=== PATIENT | female | born 1990 | race Caucasian/White ===

== ENCOUNTER 2018-03-26 00:22 | Observation (INO) | payer SELFPAY ==
[~2018-03-26] VITALS: Ht 172.7 cm; Wt 103.6 kg
[2018-03-26] VITALS (23 sets, daily range): BP systolic 85–115; BP diastolic 51–91
[~2018-03-26 00:22] MED LIST: CEPH500C; CLIN300C3 PO; DOXY100C2 PO; NAPR-243 PO; NITR-65 PO; PREN1TAB39; PRM25T PO; iron
[2018-03-26] MEDS ORDERED: NS IV 1000 ML 1,000 ML IV SCH (00:38)
--- NOTE | 2018-03-26 00:43 | ED Psychosocial ---
General Chief Complaint: Psych/Social Disorder Stated Complaint: SUICIDAL Source: patient Exam Limitations: no limitations History of Present Illness Date Seen by Provider: Mar 26, 2018 Time Seen by Provider: 00:32 Initial Comments Patient presents to the ER by private conveyance with a chief complaint that she feels like she is burning up all over. She says she is trying to kill herself tonight because of some bad things going on in her life. She used a whole bottle of BuSpar 10 mg approximate 60 tablets and 10 tablets of Trileptal 300 mg. She consumes about 30 minutes prior to arrival around midnight. She has tried to kill herself before by taking her home opiates and other antianxiety medicines. She has a history of bipolar disorder. She says she is only on the Trileptal but she had the BuSpar left over from before. She hasn't been in inpatient psychiatric hospital and laundered several times as well as at [facility] , via [facility] most recently about 4 months ago. She has used meth in the past before going to [facility] via [facility] but she says when she was there they told her urine drug screen was positive for GHB, cocaine, methamphetamines, cannabis. She says she routinely uses cannabis. She does not drink alcohol but she smokes about a pack of cigarettes per day. She is not homicidal. She is not hallucinating or having any pain. She does have some nausea. She has not vomited. Allergies and Home Medications Allergies Coded Allergies: Divalproex Sodium (Verified Allergy, Unknown, 07/06/08) Penicillin G (Verified Allergy, Unknown, 07/06/08) Patient Home Medication List Home Medication List Reviewed: Yes Constitutional: No chills, No diaphoresis EENTM: No ear discharge, No ear pain Respiratory: No cough, No short of breath Cardiovascular: No chest pain, No Hx of Intervention, No palpitations Gastrointestinal: No abdominal pain, No constipation, No diarrhea; nausea; No vomiting Genitourinary: No discharge, No dysuria : No Control/STD Prophylaxis: None Musculoskeletal: No back pain, No joint pain Past Apunsnu-Iyobws-Dnoxem Hx Patient Social History Alcohol Use: Denies Use Recreational Drug Use: Yes Drug of Choice: THC Smoking Status: Current Everyday Smoker Type Used: Cigarettes Recent Foreign Travel: No Contact w/Someone Who Travel: No Recent Hopitalizations: No Past Medical History Surgeries: Yes Gallbladder Respiratory: Yes Cardiac: Yes Heart Murmur Neurological: No Sexually Transmitted Disease: Yes (HPV) Genitourinary: No Gastrointestinal: No Musculoskeletal: No Endocrine: No Cancer: No Psychosocial: Yes Anxiety, Suicide Attempts Integumentary: No Blood Disorders: No Physical Exam Vital Signs Vital Signs - First Documented 03/26/18 00:36 Temp 97.8 Pulse 72 Resp 18 B/P (MAP) 130/89 (103) Pulse Ox 99 Capillary Refill : General Appearance: WD/WN, no apparent distress HEENT: PERRL/EOMI, normal ENT inspection, TMs normal, pharynx normal Neck: non-tender, full range of motion, supple, normal inspection Respiratory: chest non-tender, lungs clear, normal breath sounds, no respiratory distress, no accessory muscle use Cardiovascular: normal peripheral pulses, regular rate, rhythm Peripheral Pulses: 2+ Radial Pulses (R), 2+ Radial Pulses (L) Gastrointestinal: normal bowel sounds, non tender, soft Extremities: normal range of motion, normal inspection, normal capillary refill Neurologic/Psychiatric: alert, normal mood/affect, oriented x 3 Appearance/Memory: appropriate appearance, no memory impairment Behavior/Eye Contact: cooperative, normal speech, avoids eye contact; No threatening eye contact, No decreased rate of speech, No increased rate of speech, No belligerent, No uncooperative Thoughts/Hallucinations: normal thought pattern, no apparent hallucination Skin: normal color, warm/dry Progress/Results/Core Measures Results/Orders Lab Results Laboratory Tests Test 03/26/18 00:50 03/26/18 01:20 Range/Units White Blood Count 9.1 4.3-11.0 10^3/uL Red Blood Count 4.56 4.35-5.85 10^6/uL Hemoglobin 14.4 11.5-16.0 G/DL Hematocrit 40 35-52 % Mean Corpuscular Volume 88 80-99 FL Mean Corpuscular Hemoglobin 32 25-34 PG Mean Corpuscular Hemoglobin Concent 36 32-36 G/DL Red Cell Distribution Width 14.4 10.0-14.5 % Platelet Count 279 130-400 10^3/uL Mean Platelet Volume 10.0 7.4-10.4 FL Neutrophils (%) (Auto) 58 42-75 % Lymphocytes (%) (Auto) 27 12-44 % Monocytes (%) (Auto) 7 0-12 % Eosinophils (%) (Auto) 8 0-10 % Basophils (%) (Auto) 1 0-10 % Neutrophils # (Auto) 5.3 1.8-7.8 X 10^3 Lymphocytes # (Auto) 2.4 1.0-4.0 X 10^3 Monocytes # (Auto) 0.7 0.0-1.0 X 10^3 Eosinophils # (Auto) 0.7 H 0.0-0.3 10^3/uL Basophils # (Auto) 0.1 0.0-0.1 10^3/uL Sodium Level 139 135-145 MMOL/L Potassium Level 3.9 3.6-5.0 MMOL/L Chloride Level 108 H 98-107 MMOL/L Carbon Dioxide Level 17 L 21-32 MMOL/L Anion Gap 14 5-14 MMOL/L Blood Urea Nitrogen 10 7-18 MG/DL Creatinine 0.72 0.60-1.30 MG/DL Estimat Glomerular Filtration Rate > 60 BUN/Creatinine Ratio 14 Glucose Level 68 L 70-105 MG/DL Calcium Level 9.3 8.5-10.1 MG/DL Total Bilirubin 0.3 0.1-1.0 MG/DL Aspartate Amino Transf (AST/SGOT) 14 5-34 U/L Alanine Aminotransferase (ALT/SGPT) 12 0-55 U/L Alkaline Phosphatase 74 40-136 U/L Total Protein 7.2 6.4-8.2 GM/DL Albumin 4.3 3.2-4.5 GM/DL TSH Mcmullen Testing 1.91 0.35-4.94 UIU/ML Salicylates Level < 5.0 L 5.0-20.0 MG/DL Acetaminophen Level < 10 L 10-30 UG/ML Serum Alcohol < 10 <10 MG/DL Urine Color YELLOW Urine Clarity SLIGHTLY CLOUDY Urine pH 6 5-9 Urine Specific Hedrick 1.010 L 1.016-1.022 Urine Protein NEGATIVE NEGATIVE Urine Glucose (UA) NEGATIVE NEGATIVE Urine Ketones NEGATIVE NEGATIVE Urine Nitrite NEGATIVE NEGATIVE Urine Bilirubin NEGATIVE NEGATIVE Urine Urobilinogen NORMAL NORMAL MG/DL Urine Leukocyte Esterase 3+ H NEGATIVE Urine RBC (Auto) NEGATIVE NEGATIVE Urine RBC NONE /HPF Urine WBC 10-25 H /HPF Urine Squamous Epithelial Cells 10-25 H /HPF Urine Crystals NONE /LPF Urine Bacteria TRACE /HPF Urine Casts NONE /LPF Urine Mucus NEGATIVE /LPF Urine Trichomonas FEW H /HPF Urine Culture Indicated YES Urine Test NEGATIVE NEGATIVE Urine Opiates Screen NEGATIVE NEGATIVE Urine Oxycodone Screen NEGATIVE NEGATIVE Urine Methadone Screen NEGATIVE NEGATIVE Urine Propoxyphene Screen NEGATIVE NEGATIVE Urine Barbiturates Screen NEGATIVE NEGATIVE Ur Tricyclic Antidepressants Screen NEGATIVE NEGATIVE Urine Phencyclidine Screen NEGATIVE NEGATIVE Urine Amphetamines Screen NEGATIVE NEGATIVE Urine Methamphetamines Screen NEGATIVE NEGATIVE Urine Benzodiazepines Screen NEGATIVE NEGATIVE Urine Cocaine Screen NEGATIVE NEGATIVE Urine Cannabinoids Screen NEGATIVE NEGATIVE My Orders Orders - WYATT VALDEZ Ua Culture If Indicated (03/26/18 00:38) Cbc With Automated Diff (03/26/18 00:38) Comprehensive Metabolic Panel (03/26/18 00:38) Alcohol (03/26/18 00:38) Drug Screen Stat (Urine) (03/26/18 00:38) Acetaminophen (03/26/18 00:38) Salicylate (03/26/18 00:38) Ekg Tracing (03/26/18 00:38) Hcg,Qualitative Urine (03/26/18 00:38) Saline Lock/Iv-Start (03/26/18 00:38) Thyroid Analyzer (03/26/18 00:38) Monitor-Rhythm Ecg Trace Only (03/26/18 00:38) Saline Lock/Iv-Start (03/26/18 00:38) Ns Iv 1000 Ml (Sodium Chloride 0.9%) (03/26/18 00:38) Ondansetron Injection (Zofran Injectio (03/26/18 00:45) Ondansetron Injection (Zofran Injectio (03/26/18 01:30) Urine Culture (03/26/18 01:20) Medications Given in ED Current Medications Medications Dose Ordered Sig/Sandrita Route Start Time Stop Time Status Last Admin Dose Admin Ondansetron HCl 4 mg ONCE ONCE IVP 03/26/18 00:45 03/26/18 00:46 DC 03/26/18 00:53 4 MG Vital Signs/I&O 03/26/18 00:36 Temp 97.8 Pulse 72 Resp 18 B/P (MAP) 130/89 (103) Pulse Ox 99 Progress Progress Note #1: Time: 00:50 Progress Note Poison control recommends observation for 6 hours and symptomatic support. Give her a liter of IV fluids obtain some baseline labs to include an hCG, urine drug screen and will make her an observation patient in the hospital and consult social services designee to help find placement inpatient psychiatric hospital. She still alert and oriented 4. Would expect her to be somnolent anytime starting now within the first 30 minutes. Poison control warnings that we could use benzos if she has a seizure but large, (non-toxic) dose of oxcarbazepine would intuitively make seizures unlikely at this time. She follows up on her health clinic in [facility]. Historically she has been known to Dr. Virk for primary care. Progress Note #2: Time: 01:31 Progress Note The patient is sleeping softly easily aroused by verbal stimuli. Her blood pressures around 100 systolic which is probably physiologic given her age and not likely related to her ingestion however we'll give her a bag of normal saline. Progress Note #3: Time: 01:44 Progress Note Metronidazole 2 g for Trichomonas in the AM. Initial ECG Impression Date: Mar 26, 2018 Initial ECG Impression Time: 00:44 Initial ECG Rate: 57 Initial ECG Rhythm: Normal Sinus Initial ECG Intervals: Normal Initial ECG Impression: Normal Initial ECG Comparisson: No Previous ECG Available Departure Communication (Admissions) Time/Spoke to Admitting Phy: 01:44 Dr Raza: Discussed Obs for 6 hours. Consult social services designee for placement. Impression Primary Impression: Suicide attempt Additional Impressions: Overdose of anticonvulsant Qualified Codes: T42.72XA - Poisoning by unspecified antiepileptic and sedative-hypnotic drugs, intentional self-harm, initial encounter Overdose of antidepressant Qualified Codes: T43.202A - Poisoning by unspecified antidepressants, intentional self-harm, initial encounter Trichomonas vaginalis (TV) infection Disposition: ADMITTED INPATIENT Condition: Stable Admissions Decision to Admit Reason: Admit from ER (General) Decision to Admit/Date: Mar 26, 2018 Time/Decision to Admit Time: 00:58 Departure-Patient Inst. Referrals: NO,LOCAL PHYSICIAN (PCP/Family) Primary Care Physician WYATT VALDEZ Mar 26, 2018 00:43
[2018-03-26] MEDS ORDERED: ONDANSETRON 4 MG/2 ML (SDV) Z0FRAN IVP ONE ×2 (00:45→01:30)
[2018-03-26 01:00] LABS: BASOPHILS # (AUTO) 0.1 10^3/uL (0.0-0.1); BASOPHILS % (AUTO) 1 % (0-10); EOSINOPHILS # (AUTO) 0.7 10^3/uL (0.0-0.3); EOSINOPHILS % (AUTO) 8 % (0-10); HEMATOCRIT 40 % (35-52); HEMOGLOBIN 14.4 G/DL (11.5-16.0); LYMPHOCYTES # (AUTO) 2.4 X 10^3 (1.0-4.0); LYMPHOCYTES % (AUTO) 27 % (12-44); MEAN CORPUSCULAR HEMOGLOBIN 32 PG (25-34); MEAN CORPUSCULAR HGB CONC 36 G/DL (32-36); MEAN CORPUSCULAR VOLUME 88 FL (80-99); MONOCYTES # (AUTO) 0.7 X 10^3 (0.0-1.0); MONOCYTES % (AUTO) 7 % (0-12); NEUTROPHILS # (AUTO) 5.3 X 10^3 (1.8-7.8); NEUTROPHILS % (AUTO) 58 % (42-75); PLATELET COUNT 279 10^3/uL (130-400); RED BLOOD COUNT 4.56 10^6/uL (4.35-5.85); RED CELL DISTRIBUTION WIDTH 14.4 % (10.0-14.5); WHITE BLOOD COUNT 9.1 10^3/uL (4.3-11.0)
[2018-03-26 01:21] LABS: ALANINE AMINOTRANSFERASE 12 U/L (0-55); ALBUMIN 4.3 GM/DL (3.2-4.5); ALKALINE PHOSPHATASE 74 U/L (40-136); BILIRUBIN,TOTAL 0.3 MG/DL (0.1-1.0); BUN/CREATININE RATIO 14; CALCIUM 9.3 MG/DL (8.5-10.1); CARBON DIOXIDE 17 MMOL/L (21-32); CHLORIDE 108 MMOL/L (98-107); CREATININE SERUM 0.72 MG/DL (0.60-1.30); GFR ESTIMATED > 60; GLUCOSE 68 MG/DL (70-105); POTASSIUM 3.9 MMOL/L (3.6-5.0); SALICYLATE < 5.0 MG/DL (5.0-20.0); SODIUM 139 MMOL/L (135-145); TOTAL PROTEIN 7.2 GM/DL (6.4-8.2)
[2018-03-26 01:26] LABS: BILIRUBIN,URINE NEGATIVE (NEGATIVE); CLARITY,URINE SLIGHTLY CLOUDY; COLOR,URINE YELLOW; GLUCOSE, URINE (UA) NEGATIVE (NEGATIVE); KETONES,URINE NEGATIVE (NEGATIVE); LEUKOCYTE ESTERASE ,URINE 3+ (NEGATIVE); NITRITE,URINE NEGATIVE (NEGATIVE); PH,URINE 6 (5-9); PROTEIN,URINE NEGATIVE (NEGATIVE); UROBILINOGEN,URINE NORMAL (NORMAL)
[2018-03-26 01:35] LABS: BACTERIA,URINE TRACE /HPF; TRICHOMONAS,URINE FEW /HPF
[2018-03-26 01:37] LABS: AMPHETAMINE SCREEN, URINE NEGATIVE (NEGATIVE); BENZODIAZEPINES SCREEN URINE NEGATIVE (NEGATIVE); COCAINE SCREEN URINE NEGATIVE (NEGATIVE); HCG,QUALITATIVE URINE NEGATIVE (NEGATIVE); METHAMPHETAMINE SCREEN URINE S NEGATIVE (NEGATIVE)
[2018-03-26 01:38] LABS: BARBITURATE SCREEN URINE NEGATIVE (NEGATIVE); CANNABINOID SCREEN, URINE NEGATIVE (NEGATIVE); METHADONE STAT NEGATIVE (NEGATIVE); OPIATE SCREEN URINE NEGATIVE (NEGATIVE); OXYCODONE STAT NEGATIVE (NEGATIVE); PROPOXYPHENE STAT NEGATIVE (NEGATIVE); TRICYCLIC ANTIDEPRESSANTS SCRE NEGATIVE (NEGATIVE)
[2018-03-26 01:38] LABS: ACETAMINOPHEN < 10 UG/ML (10-30)
--- OUTSIDE RECORDS SUMMARY | 2018-03-26 01:40 | XMS REPORT | Referral Summary ---
Author Author [facility] Organization [facility] Address Unknown Phone Unavailable Care Team Providers Care Bus Analyst Name Role Phone [facility] PCP Unavailable Encounter [facility] EDGE [id number] Date(s): 03/07/16 - 03/08/16 [facility] [address] [place], [place] [address] Discharge Diagnosis: Incomplete Discharge Diagnosis: Hypotension Discharge Diagnosis: DUB (dysfunctional uterine bleeding) Discharge Diagnosis: Complete Discharge Disposition: 01-Home or Self Care Attending Physician: Jorge Brice MD Admitting Physician: Alexander Knowles MD Vital Signs Most recent to 1 oldest [Reference Range]: Temperature Oral 36.8 degC [35.8-37.3 degC] (03/08/16 11:53 AM) Apical Heart Rate 73 bpm [60-100 bpm] (03/08/16 1:51 AM) Peripheral Pulse 72 bpm Rate [60-100 bpm] (03/08/16 1:46 AM) Heart Rate Monitored 72 bpm [60-100 bpm] (03/08/16 1:10 PM) Respiratory Rate 18 br/min [14-20 br/min] (03/08/16 12:58 PM) Blood Pressure 119/73 mmHg [90-140/60-90 mmHg] (03/08/16 11:53 AM) Mean Arterial 88 mmHg Pressure, Cuff (03/08/16 11:53 AM) SpO2 97 % (03/08/16 12:58 PM) Problem List Condition Effective Dates Status Health Status Informant Acute Active pain(Confirmed) Asthma(Confirmed) Active Bipolar disease, Active chronic(Confirmed) Borderline Active personality disorder(Confirmed) Depression(Confirmed Active ) Hypocalcemia(Confirm Active patient ed) Hypothyroidism(Confi Active rmed) Impaired gas Active exchange(Confirmed)1 Post traumatic Active stress disorder (PTSD)(Confirmed) Tobacco Active patient user(Confirmed) 1Problem added automatically by system based on initiation of Impaired Gas Exchange Plan of Care Allergies, Adverse Reactions, Alerts Substance Reaction Severity Status Depakote ER Hematemesis Medium Active Latex Active penicillin Throat swelling Severe Active Medications Multivitamins 1 tabs, Oral, Daily, 0 Refill(s) Start Date: 03/08/16 Status: Ordered Results Hematology Most recent to 1 oldest [Reference Range]: WBC [4.8-10.8 5.0 10*3/uL 10*3/uL] (03/08/16 3:19 PM) RBC [4.00-5.20] 3.09 *LOW* (03/08/16 3:19 PM) Hgb [12.0-16.0 9.4 gm/dL gm/dL] *LOW* (03/08/16 3:19 PM) Hct [37.0-47.0 %] 28.9 % *LOW* (03/08/16 3:19 PM) MCV [82.0-99.0 fL] 93.5 fL (03/08/16 3:19 PM) MCH [27.0-32.0 pg] 30.4 pg (03/08/16 3:19 PM) MCHC [32.0-36.0 32.5 gm/dL gm/dL] (03/08/16 3:19 PM) RDW [11.5-14.5 %] 12.6 % (03/08/16 3:19 PM) Platelet [150-400 225 10*3/uL 10*3/uL] (03/08/16 3:19 PM) MPV [9.4-12.4 fL] 9.7 fL (03/08/16 3:19 PM) Immature 0.1 % Granulocytes (03/07/16 10:37 PM) [0.0-1.0 %] Neutrophils [51-75 49 % %] *LOW* (03/07/16 10:37 PM) Lymphocytes [20-46 34 % %] (03/07/16 10:37 PM) Monocytes [4-11 %] 6 % (03/07/16 10:37 PM) Eosinophils [0-4 %] 10 % *HI* (03/07/16 10:37 PM) Basophils [0-2 %] 0 % (03/07/16 10:37 PM) Neutro Absolute 3.37 10*3 [1.90-7.00 10*3] (03/07/16 10:37 PM) Lymph Absolute 2.35 10*3 [0.80-3.30 10*3] (03/07/16 10:37 PM) Garden Absolute 0.41 10*3 [0.30-1.00 10*3] (03/07/16 10:37 PM) Eos Absolute 0.71 10*3 [0.00-0.50 10*3] *HI* (03/07/16 10:37 PM) Baso Absolute 0.03 10*3 [0.00-0.20 10*3] (03/07/16 10:37 PM) Coagulation Most recent to 1 oldest [Reference Range]: INR [0.9-1.2] 1.1 (03/08/16 4:25 AM) PTT [25.0-35.0 30.9 seconds seconds] (03/08/16 4:25 AM) Chemistry Most recent to 1 oldest [Reference Range]: Beta hCG Qnt 1174 mIU/mL 1 (03/07/16 10:37 PM) 1Result Comment: Normal Ranges for Quantitative Beta-HCG are as follows: Non- Females: 0 - 5 Gestation Wks 95% Range 0.2 - 1 4 - 50 1 - 2 50 - 500 2 - 3 100 - 5000 3 - 4 500 - 10,000 4 - 5 1,000 - 50,000 5 - 6 10,000 - 100,000 6 - 8 15,000 - 200,000 8 - 12 10,000 - 100,000 Microbiology Reports TEST: Affirm Vaginitis Panel STATUS: Auth (Verified) BODY SITE: SOURCE: Cervix/Vaginal COLLECTED DATE/TIME: 03/08/16 1:44 AM Affirm Vaginitis Panel Negative for Trichomonas vaginalis Positive for Gardnerella vaginalis Negative for Jasmina species Immunizations No data available for this section Procedures No data available for this section Social History Social History Type Response Smoking Status Current every day smoker; Type: Cigarettes Assessment and Plan No data available for this section
--- OUTSIDE RECORDS SUMMARY | 2018-03-26 01:40 | XMS REPORT | Referral Summary ---
Author Author [facility] Organization [facility] Address Unknown Phone Unavailable Care Team Providers Care Physician Scribe Name Role Phone [facility] PCP Unavailable Encounter KELY [id number] Date(s): 08/17/16 - 08/17/16 [facility] [address] [place], [place] [address] Discharge Diagnosis: S/p laparoscopic cholecystectomy Discharge Diagnosis: Abdominal pain Discharge Disposition: 01-Home or Self Care Attending Physician: Zac Tijerina DO Admitting Physician: Zac Tijerina DO Vital Signs Most recent to 1 oldest [Reference Range]: Temperature Oral 36.7 degC [35.8-37.3 degC] (08/17/16 5:33 PM) Peripheral Pulse 75 bpm Rate [60-100 bpm] (08/17/16 5:33 PM) Heart Rate Monitored 83 bpm [60-100 bpm] (08/17/16 7:30 PM) Respiratory Rate 18 br/min [14-20 br/min] (08/17/16 5:33 PM) Blood Pressure 104/69 mmHg [90-140/60-90 mmHg] (08/17/16 7:30 PM) Mean Arterial 81 mmHg Pressure, Cuff (08/17/16 7:30 PM) SpO2 99 % (08/17/16 7:30 PM) Problem List Condition Effective Dates Status [...] Active penicillin Throat swelling Severe Active Medications Colace 100 mg oral capsule 100 mg 1 caps, Oral, BID, 0 Refill(s) Start Date: 08/16/16 Status: Ordered DuoNeb 0.5 mg-2.5 mg/3 mL inhalation solution 3 mL, NEB, QID, as needed for shortness of breath or wheezing, 0 Refill(s) Start Date: 08/16/16 Status: Ordered Percocet 5/325 oral tablet 1-2 tabs, Oral, q4hr, Pain Moderate (4-6), # 40 tabs, 0 Refill(s), other reason (Rx) Start Date: 08/16/16 Stop Date: 08/23/16 Status: Ordered Symbicort 160 mcg-4.5 mcg/inh inhalation aerosol 2 puffs, Inhalation, BID, 0 Refill(s) Start Date: 08/16/16 Status: Ordered Results Hematology Most recent to 1 oldest [Reference Range]: WBC [4.8-10.8 12.0 10*3/uL 10*3/uL] *HI* (08/17/16 6:11 PM) RBC [4.00-5.20] 3.81 *LOW* (08/17/16 6:11 PM) Hgb [12.0-16.0 10.9 gm/dL gm/dL] *LOW* (08/17/16 6:11 PM) Hct [37.0-47.0 %] 34.1 % *LOW* (08/17/16 6:11 PM) MCV [82.0-99.0 fL] 89.5 fL (08/17/16 6:11 PM) MCH [27.0-32.0 pg] 28.6 pg (08/17/16 6:11 PM) MCHC [32.0-36.0 32.0 gm/dL gm/dL] (08/17/16 6:11 PM) RDW [11.5-14.5 %] 14.6 % *HI* (08/17/16 6:11 PM) Platelet [150-400 221 10*3/uL 10*3/uL] (08/17/16 6:11 PM) MPV [9.4-12.4 fL] 10.8 fL (08/17/16 6:11 PM) Immature 0.2 % Granulocytes (08/17/16 6:11 PM) [0.0-1.0 %] Neutrophils [51-75 80 % %] *HI* (08/17/16 6:11 PM) Lymphocytes [20-46 13 % %] *LOW* (08/17/16 6:11 PM) Monocytes [4-11 %] 6 % (08/17/16 6:11 PM) Eosinophils [0-4 %] 1 % (08/17/16 6:11 PM) Basophils [0-2 %] 0 % (08/17/16 6:11 PM) Neutro Absolute 9.63 10*3 [1.90-7.00 10*3] *HI* (08/17/16 6:11 PM) Lymph Absolute 1.58 10*3 [0.80-3.30 10*3] (08/17/16 6:11 PM) Talbot Absolute 0.73 10*3 [0.30-1.00 10*3] (08/17/16 6:11 PM) Eos Absolute 0.06 10*3 [0.00-0.50 10*3] (08/17/16 6:11 PM) Baso Absolute 0.01 10*3 [0.00-0.20 10*3] (08/17/16 6:11 PM) Chemistry Most recent to 1 oldest [Reference Range]: Sodium Lvl [136-144 139 mEq/L mEq/L] (08/17/16 6:11 PM) Potassium Lvl 3.6 mEq/L [3.6-5.1 mEq/L] (08/17/16 6: PM) Chloride [99-109 108 mEq/L mEq/L] (08/17/16 6:11 PM) CO2 [22-32 mEq/L] 22 mEq/L (08/17/16 6:11 PM) AGAP [3-20] 9 (08/17/16 6:11 PM) BUN [4-20 mg/dL] 8 mg/dL (08/17/16 6:11 PM) Glucose Lvl [70-100 104 mg/dL mg/dL] *HI* (08/17/16 6:11 PM) Creatinine Lvl 0.77 mg/dL [0.44-1.03 mg/dL] (08/17/16 6:11 PM) eGFR [>60] >60 1 (08/17/16 6:11 PM) Calcium Lvl 8.8 mg/dL [8.6-10.0 mg/dL] (08/17/16 6:11 PM) 1Result Comment: Multiply eGFR results by 1.21 for race. Immunizations Vaccine Date Refusal Reason influenza virus vaccine, inactivated 08/16/16 Patient Refuses pneumococcal 23-polyvalent vaccine 08/16/16 Procedures Procedure Date Related Diagnosis Body Site Cholecystectomy Laparoscopic1 08/16/16 1auto-populated from documented surgical case Social History Social History Type Response Smoking Status Current every day smoker; Type: Cigarettes; Tobacco use per day: Between 1/4 pack and 1/2 pack Assessment and Plan No data available for this section
--- OUTSIDE RECORDS SUMMARY | 2018-03-26 01:40 | XMS REPORT | Referral Summary ---
Author Author [facility] Organization [facility] Address Unknown Phone Unavailable Care Team Providers Care Administrative Nursing Supervisor Name Role Phone [facility] PCP Unavailable Encounter VC EDGE [id number] Date(s): 08/03/17 - 08/03/17 [facility] [address] [place], [place] [id number] [place] [address] Discharge Diagnosis: Acute lower UTI (urinary tract infection) Discharge Disposition: 01-Home or Self Care Attending Physician: Joey Zarate DO Admitting Physician: Joey Zarate DO Vital Signs Most recent to 1 oldest [Reference Range]: Temperature Oral 36.5 degC [35.8-37.3 degC] (08/03/17 11:12 AM) Peripheral Pulse 63 bpm Rate [60-100 bpm] (08/03/17 2:26 PM) Respiratory Rate 16 br/min [14-20 br/min] (08/03/17 2:26 PM) Blood Pressure 123/85 mmHg [90-140/60-90 mmHg] (08/03/17 2:26 PM) SpO2 100 % (08/03/17 2:26 PM) Problem List Condition Effective Dates Status [...] Adverse Reactions, Alerts Substance Reaction Severity Status penicillin Throat swelling Severe Active Latex Active Depakote ER Hematemesis Medium Active Medications Cipro 500 mg oral tablet 500 mg 1 tabs, Oral, q12hr, X 10 days, # 20 tabs, 0 Refill(s) Start Date: 08/03/17 Stop Date: 08/13/17 Status: Ordered DuoNeb 0.5 mg-2.5 mg/3 mL inhalation solution 3 mL, NEB, QID, as needed for shortness of breath or wheezing, 0 Refill(s) Start Date: 08/16/16 Status: Ordered Haldol 0 Refill(s) Start Date: 09/30/16 Status: Ordered ibuprofen 800 mg oral tablet 800 mg 1 tabs, Oral, q8hr, # 30 tabs, 0 Refill(s) Start Date: 02/09/17 Status: Ordered Latuda Oral, Daily, 0 Refill(s) Start Date: 05/24/17 Status: Ordered phenazopyridine 100 mg oral tablet 100 mg 1 tabs, Oral, TID, X 3 days, # 9 tabs, 0 Refill(s) Start Date: 08/03/17 Stop Date: 08/06/17 Status: Ordered Symbicort 160 mcg-4.5 mcg/inh inhalation aerosol 2 puffs, Inhalation, BID, 0 Refill(s) Start Date: 08/16/16 Status: Ordered Wellbutrin Oral, 0 Refill(s) Start Date: 09/30/16 Status: Ordered Zofran ODT 4 mg oral tablet, disintegrating 4 mg 1 tabs, Oral, TID, # 10 tabs, 0 Refill(s) Start Date: 05/24/17 Status: Ordered Results Hematology Most recent to 1 oldest [Reference Range]: WBC [4.8-10.8 7.8 10*3/uL 10*3/uL] (08/03/17 11:34 AM) RBC [4.00-5.20] 4.29 (08/03/17 11:34 AM) Hgb [12.0-16.0 13.4 gm/dL gm/dL] (08/03/17 11:34 AM) Hct [37.0-47.0 %] 38.9 % (08/03/17 11:34 AM) MCV [82.0-99.0 fL] 90.7 fL (08/03/17 11:34 AM) MCH [27.0-32.0 pg] 31.2 pg (08/03/17 11:34 AM) MCHC [32.0-36.0 34.4 gm/dL gm/dL] (08/03/1734 AM) RDW [11.5-14.5 %] 13.6 % (08/03/17 AM) Platelet [150-400 255 10*3/uL 10*3/uL] (08/03/17 AM) MPV [9.4-12.4 fL] 10.9 fL (08/03/17 AM) Immature 0.1 % Granulocytes (08/03/17) [0.0-1.0 %] Neutrophils [51-75 60 % %] (08/03/17 AM) Lymphocytes [20-46 27 % %] (08/03/17) Monocytes [4-11 %] 7 % (08/03/17 AM) Eosinophils [0-4 %] 6 % *HI* (08/03/17) Basophils [0-2 %] 1 % (08/03/17) Neutro Absolute 4.64 [1.90-7.00] (08/03/17 AM) Lymph Absolute 2.05 [0.80-3.30] (08/03/17 AM) Sebastian Absolute 0.53 [0.30-1.00] (08/03/17 AM) Eos Absolute 0.46 [0.00-0.50] (08/03/17 AM) Baso Absolute 0.06 [0.00-0.20] (08/03/17 AM) Nucleated RBC 0.0 /100 WBC Automated [0 /100 (08/03/17 AM) WBC] Chemistry Most recent to 1 oldest [Reference Range]: Sodium Lvl [136-144 138 mEq/L mEq/L] (08/03/17 AM) Potassium Lvl 3.6 mEq/L [3.6-5.1 mEq/L] (08/03/17 AM) Chloride [99-109 108 mEq/L mEq/L] (08/03/17 AM) CO2 [22-32 mEq/L] 23 mEq/L (10/20/17 11:34 AM) AGAP [3-20 mEq/L] 7 mEq/L (08/03/17 11:34 AM) BUN [4-20 mg/dL] 6 mg/dL (08/03/17 11:34 AM) Glucose Lvl [70-100 89 mg/dL mg/dL] (08/03/17 11:34 AM) Creatinine Lvl 0.73 mg/dL [0.44-1.03 mg/dL] (08/03/17 11:34 AM) eGFR [>60 mL/min] >60 mL/min 1 (08/03/17 11:34 AM) Calcium Lvl 9.3 mg/dL [8.6-10.0 mg/dL] (08/03/17 11:34 AM) Albumin Lvl [3.5-4.8 4.2 gm/dL gm/dL] (08/03/17 11:34 AM) Total Protein 7.0 gm/dL [6.1-7.9 gm/dL] (08/03/17 11:34 AM) Globulin [1.9-4.3 2.8 gm/dL gm/dL] (08/03/17 11:34 AM) ALT [14-54 U/L] 12 U/L *LOW* (08/03/17 11:34 AM) AST [15-41 U/L] 12 U/L *LOW* (08/03/17 11:34 AM) Alk Phos [26-104 57 U/L U/L] (08/03/17 11:34 AM) Bili Total [0.2-1.2 0.5 mg/dL 2 mg/dL] (08/03/17 11:34 AM) Lipase Lvl [8-48 20 U/L U/L] (08/03/17 11:34 AM) Screen, Negative Urine NPT (08/03/17 11:39 AM) 1Result Comment: Multiply eGFR results by 1.21 for race. 2Result Comment: Naproxen, specifically the metabolite O-desmethylnaproxen, may cause spurious elevation in Total Bilirubin levels. Urinalysis Most recent to 1 oldest [Reference Range]: UA Color Aliza *ABN* (08/03/17 11:34 AM) UA Appear Turbid *ABN* (08/03/17 11:34 AM) UA pH [5.0-8.0] 7.0 (08/03/17 11:34 AM) UA Leuk Est Pos 3+ [Negative] *ABN* (08/03/17 11:34 AM) UA Nitrite Negative [Negative] (08/03/17 11:34 AM) UA Protein Pos 2+ [Negative] *ABN* (08/03/17 11:34 AM) UA Glucose Negative [Negative] (08/03/17 11:34 AM) UA Ketones Negative [Negative] (08/03/17 11:34 AM) UA Urobilinogen Negative [<1.0] (08/03/17 11:34 AM) UA Bili [Negative] Negative (08/03/17 11:34 AM) UA Blood [Negative] Pos 1+ *ABN* (08/03/17 11:34 AM) UA Spec Grav 1.015 [1.003-1.030] (08/03/17 11:34 AM) Type Clean Catch (08/03/17 11:34 AM) UA WBC [0-4] 10-20 *ABN* (08/03/17 11:34 AM) UA RBC [0-2] 2-5 (08/03/17 11:34 AM) Epithelial Cells 10-20 (08/03/17 11:34 AM) UA Bacteria Moderate *ABN* (08/03/17 11:34 AM) UA Trichomonas Present *ABN* (08/03/17 11:34 AM) UA Mucous Present (08/03/17 11:34 AM) Immunizations Given and Recorded Vaccine Date Status Refusal Reason pneumococcal 23-polyvalent vaccine 08/16/16 Given Not Given Vaccine Date Status Refusal Reason influenza virus vaccine, inactivated 08/16/16 Not Given Patient Refuses Procedures Procedure Date Related Diagnosis Body Site Cholecystectomy Laparoscopic1 08/16/16 1auto-populated from documented surgical case Social History Social History Type Response Smoking Status Current every day smoker; Type: Cigarettes; Tobacco use per day: Between 1/4 pack and 1/2 pack entered on: 08/17/16 Assessment and Plan No data available for this section
--- OUTSIDE RECORDS SUMMARY | 2018-03-26 01:40 | XMS REPORT | Referral Summary ---
Author Author [facility] Organization [facility] Address Unknown Phone Unavailable Care Team Providers Care Global Supply Chain Vice President Name Role Phone [facility] PCP Unavailable Encounter [facility] EDGE [id number] Date(s): 10/16/17 - 10/17/17 [facility] [address] [place], [place] [address] Discharge Disposition: Left Without Being Seen Vital Signs Most recent to 1 oldest [Reference Range]: Temperature Oral 36.6 degC [35.8-37.3 degC] (10/16/17 10:28 PM) Peripheral Pulse 110 bpm Rate [60-100 bpm] *HI* (10/16/17 10:28 PM) Respiratory Rate 16 br/min [14-20 br/min] (10/16/17 10:28 PM) Blood Pressure 105/70 mmHg [90-140/60-90 mmHg] (10/16/17 10:28 PM) SpO2 100 % (10/16/17 10:28 PM) Problem List Condition Effective Dates Status [...] Active Depakote ER Hematemesis Medium Active Medications DuoNeb 0.5 mg-2.5 mg/3 mL inhalation solution [...] 0 Refill(s) Start Date: 05/24/17 Status: Ordered Symbicort 160 mcg-4.5 mcg/inh inhalation aerosol 2 puffs, Inhalation, BID, 0 Refill(s) Start Date: 08/16/16 Status: Ordered Wellbutrin Oral, 0 Refill(s) Start Date: 09/30/16 Status: Ordered Zofran ODT 4 mg oral tablet, disintegrating 4 mg 1 tabs, Oral, TID, # 10 tabs, 0 Refill(s) Start Date: 05/24/17 Status: Ordered Results No data available for this section Immunizations Given and Recorded Vaccine Date Status Refusal Reason pneumococcal 23-polyvalent vaccine 08/16/16 Given Not Given Vaccine Date Status Refusal Reason influenza virus vaccine, inactivated 08/16/16 Not Given Patient Refuses Procedures Procedure Date Related Diagnosis Body Site Cholecystectomy Laparoscopic1 08/16/16 1auto-populated from documented surgical case Social History Social History Type Response Smoking Status Current every day smoker; Tobacco use per day: 1 Pack entered on: 08/04/17 Assessment and Plan No data available for this section
--- OUTSIDE RECORDS SUMMARY | 2018-03-26 01:40 | XMS REPORT ---
Author Author Cuca Delaney Organization [facility] Address [address] [place], [place] [id number] Care Team Providers Care Trial Management Associate Name Role Phone Cuca Delaney Unavailable PROBLEMS Type Condition ICD9-CM Code [id number] Code Onset Dates Condition Status SNOMED Code Problem Irregular menstruation, unspecified N92.6 Active 92967158 ALLERGIES Substance Reaction Event Type Date Status Latex Gloves hives Drug Allergy May, Active Penicillin G Potassium anaphylaxis Drug Allergy May, Active Depakote ER vomiting Drug Allergy May, Active SOCIAL HISTORY No smoking Hx information available PLAN OF CARE Activity Details Follow Up 1-2 Weeks Reason:null Pending Test Urine Test (GM) VITAL SIGNS Height 67.5 in 2017-06-01 Weight 216 oz lbs 2017-06-01 BMI 2.08 kg/m2 2017-06-01 Heart Rate 86 /min 2017-06-01 Temperature 97.7 degrees Fahrenheit 2017-06-01 Blood pressure systolic 115 mm Hg 2017-06-01 Blood pressure diastolic 77 mm Hg 2017-06-01 MEDICATIONS Medication Instructions Dosage Frequency Start Date End Date Duration Status Prednisone-40 mg/day 20 mg orally daily 2 tabs 24h May, May, 5 days Active Promethazine-Codeine 6.25-10 MG/5ML Orally every 6 hrs 5 ml as needed 6h May, May, 10 day supply Active Latuda 20 MG Orally Once a day 24h Active Famotidine 24h Active Zofran 4 MG Orally q6 hours prn nausea 1 tab 10 days Active Symbicort Inhalation Twice a day 12h Active Albuterol Active RESULTS No Results PROCEDURES Procedure Date Ordered Related Diagnosis Body Site URINE TEST Jun 01, 2017 Office Visit, New Pt., Level 3 Jun 01, 2017 IMMUNIZATIONS No Known Immunizations
--- OUTSIDE RECORDS SUMMARY | 2018-03-26 01:40 | XMS REPORT | Referral Summary ---
Author Author [facility] Organization [facility] Address Unknown Phone Unavailable Care Team Providers Care Mathematics Lecturer Name Role Phone [facility] PCP Unavailable Encounter [facility] EDGE [id number] Date(s): 05/28/16 - 05/28/[address] [facility] [address] [place], [place] [address] Discharge Diagnosis: Acute asthma exacerbation Discharge Disposition: 01-Home or Self Care Attending Physician: Stevie Srivastava MD Admitting Physician: Stevie Srivastava MD Vital Signs Most recent to 1 oldest [Reference Range]: Temperature Oral 36.7 degC [35.8-37.3 degC] (05/28/16 8:21 PM) Peripheral Pulse 106 bpm 1 Rate [60-100 bpm] *HI* (05/28/16 9:45 PM) Heart Rate Monitored 106 bpm [60-100 bpm] *HI* (05/28/16 9:10 PM) Respiratory Rate 18 br/min [14-20 br/min] (05/28/16 9:45 PM) Blood Pressure 109/72 mmHg [90-140/60-90 mmHg] (05/28/16 9:45 PM) Mean Arterial 86 mmHg Pressure, Cuff (05/28/16 9:10 PM) SpO2 97 % (05/28/16 9:45 PM) 1Result Comment: Dr. Srivastava aware of d/c vitals Problem List Condition Effective Dates Status Health [...] Active penicillin Throat swelling Severe Active Medications ibuprofen 800 mg oral tablet 800 mg 1 tabs, Oral, TID, as needed for pain, # 15 tabs, 0 Refill(s) Start Date: 03/20/16 Stop Date: 03/25/16 Status: Ordered predniSONE 20 mg oral tablet 40 mg 2 tabs, Oral, Daily, start tomorrow, X 4 days, # 8 tabs, 0 Refill(s), start tomorrow Start Date: 05/28/16 Stop Date: 06/01/16 Status: Ordered Multivitamins 1 tabs, Oral, Daily, 0 Refill(s) Start Date: 03/08/16 Status: Ordered Results Chemistry Most recent to 1 oldest [Reference Range]: Estimated Creatinine 117.08 mL/min Clearance (05/28/16 8:26 PM) Immunizations No data available for this section Procedures No data available for this section Social History Social History Type Response Smoking Status Current every day smoker; Type: Cigarettes Assessment and Plan No data available for this section
--- OUTSIDE RECORDS SUMMARY | 2018-03-26 01:41 | XMS REPORT | Referral Summary ---
Author Author [facility] Organization [facility] Address Unknown Phone Unavailable Care Team Providers Care Aircraft Engine Technician Name Role Phone [facility] PCP Unavailable Encounter VC EDGE [id number] Date(s): 08/04/17 - 08/05/17 [facility] [address] [place] [address] [place] Discharge Diagnosis: Depression Discharge Diagnosis: Vaginal discharge Discharge Diagnosis: Trichomonosis Discharge Disposition: 01-Home or Self Care Attending Physician: Joey Zarate DO Admitting Physician: Joey Zarate DO Vital Signs Most recent to 1 oldest [Reference Range]: Temperature Oral 36.8 degC [35.8-37.3 degC] (08/04/17 6:52 PM) Peripheral Pulse 68 bpm Rate [60-100 bpm] (08/05/17 2:50 AM) Heart Rate Monitored 66 bpm [60-100 bpm] (08/05/17 10:20 AM) Respiratory Rate 16 br/min [14-20 br/min] (08/05/17 10:20 AM) Blood Pressure 116/62 mmHg [90-140/60-90 mmHg] (08/05/17 10:20 AM) SpO2 97 % (08/05/17 9:00 AM) Problem List Condition Effective Dates Status Health [...] Refill(s) Start Date: 05/24/17 Status: Ordered Results Chemistry Most recent to 1 oldest [Reference Range]: U Beta hCG Ql Negative (08/05/17 11:26 AM) Toxicology Most recent to 1 oldest [Reference Range]: U Amphetamine Scrn Positive *ABN* (08/05/17 11:26 AM) U Cocaine Scrn Negative (08/05/17 11:26 AM) U Cannab Scrn Positive *ABN* (08/05/17 11:26 AM) U Opiate Scrn Negative (08/05/17 11:26 AM) U PCP Scrn Negative (08/05/17 11:26 AM) U Benzodiazepine Negative Scrn (08/05/17 11:26 AM) U Barbiturate Scrn Negative (08/05/17 11:26 AM) Methadone Lvl Negative (08/05/17:26 AM) Tricyclics Negative 1 (08/05/17: AM) 1Result Comment: Cut-off concentrations: Amphetamines: 1000 ng/mL Cocaine: 300 ng/mL Cannabinoid: 50 ng/mL Opiate: 300 ng/mL Phencyclidine (PCP): 25 ng/mL Benzodiazepine: 200 ng/mL Barbiturate: 200 ng/mL Methadone: 300 ng/mL Tricyclic: 300 ng/mL The urine drug screen assays are qualitative screens. A more specific GC/MS method must be performed to obtain a confirmed analytical result. Unconfirmed screening results must not be used for non-medical purposes(e.g. employment or legal testing) Urinalysis Most recent to 1 oldest [Reference Range]: UA Color Aliza *ABN* (08/05/17:26 AM) UA Appear Sl Cloudy (08/05/17 11:26 AM) UA pH [5.0-8.0] 5.0 (08/05/17 11:26 AM) UA Leuk Est Pos 3+ [Negative] *ABN* (08/05/17:26 AM) UA Nitrite Positive [Negative] *ABN* (08/05/17 11:26 AM) UA Protein Negative [Negative] (08/05/17 11:26 AM) UA Glucose Negative [Negative] (08/05/17 11:26 AM) UA Ketones Trace [Negative] *ABN* (08/05/17 11:26 AM) UA Urobilinogen 2.0 mg/dL [<1.0 mg/dL] *ABN* (08/05/17:26 AM) UA Bili [Negative] Negative (08/05/17 11:26 AM) UA Blood [Negative] Negative (08/05/17 11:26 AM) UA Spec Grav 1.010 [1.003-1.030] (08/05/17 11:26 AM) Type Clean Catch (08/05/17 11:26 AM) UA WBC [0-4] 10-20 *ABN* (08/05/17 11:26 AM) UA RBC [0-2] 0-2 (08/05/17 11:26 AM) Epithelial Cells 2-5 (08/05/17 11:26 AM) UA Bacteria Occasional *ABN* (10/22/17 11:26 AM) UA Mucous Present (08/05/17 11:26 AM) Immunizations Given and Recorded Vaccine Date [...]
--- OUTSIDE RECORDS SUMMARY | 2018-03-26 01:41 | XMS REPORT | Referral Summary ---
Author Author [facility] Organization [facility] Address Unknown Phone Unavailable Care Team Providers Care Integration Engineer Name Role Phone [facility] PCP Unavailable Encounter VC EDGE [id number] Date(s): 10/27/15 - 10/27/15 [facility] [address] [place], [place] [address] Discharge Diagnosis: Allergic reaction Discharge Diagnosis: Cough Discharge Disposition: 01-Home or Self Care Attending Physician: Richar Pierce MD Admitting Physician: Richar Pierce MD Vital Signs Most recent to 1 2 oldest [Reference Range]: Temperature Oral 36.7 degC [35.8-37.3 degC] (10/27/15 1:03 PM) Peripheral Pulse 88 bpm Rate [60-100 bpm] (10/27/15 1:54 PM) Heart Rate Monitored 86 bpm 91 bpm [60-100 bpm] (10/27/15 1:21 PM) (10/27/15 1:21 PM) Respiratory Rate 20 br/min [14-20 br/min] (10/27/15 1:54 PM) Blood Pressure 104/75 mmHg [90-140/60-90 mmHg] (10/27/15 1:54 PM) SpO2 98 % (10/27/15 1:54 PM) Problem List Condition Effective Dates Status Health Status Informant Asthma(Confirmed) Active Bipolar disease, Active chronic(Confirmed) Borderline Active personality disorder(Confirmed) Depression(Confirmed Active ) Hypocalcemia(Confirm Active patient ed) Hypothyroidism(Confi Active rmed) Post traumatic Active stress disorder (PTSD)(Confirmed) Tobacco Active patient user(Confirmed) Allergies, Adverse Reactions, Alerts Substance Reaction Severity Status Depakote ER Hematemesis Medium Active penicillin Throat swelling Severe Active Medications albuterol CFC free 90 mcg/inh inhalation aerosol 2 puffs, Inhalation, q4hr, as needed for wheezing, use with spacer chamber, # 18 g, 0 Refill(s) Start Date: 05/02/15 Status: Ordered BuSpar Oral, TID, 0 Refill(s) Start Date: 12/22/14 Status: Ordered calcium citrate Oral, BID, 0 Refill(s) Start Date: 12/22/14 Status: Ordered Depakote Oral, TID, 0 Refill(s) Start Date: 12/22/14 Status: Ordered doxepin 3 mg oral tablet tabs, Oral, Bedtime (once a day), 0 Refill(s) Start Date: 12/22/14 Status: Ordered Effexor Oral, 0 Refill(s) Start Date: 05/02/15 Status: Ordered Haldol Decanoate IntraMuscular, q4wk, 0 Refill(s) Start Date: 12/22/14 Status: Ordered hydrochlorothiazide Oral, Daily, 0 Refill(s) Start Date: 12/22/14 Status: Ordered levothyroxine Daily, 0 Refill(s) Start Date: 12/22/14 Status: Ordered predniSONE 20 mg oral tablet 40 mg 2 tabs, Oral, Daily, X 3 days, # 6 tabs, 0 Refill(s), Indication: dr holly fiarchild md Start Date: 10/27/15 Stop Date: 10/30/15 Status: Ordered ProAir HFA 90 mcg/inh inhalation aerosol 1 puffs, Inhalation, QID, as needed for wheezing, # 8.5 g, 0 Refill(s) Start Date: 10/23/15 Status: Ordered RisperDAL Oral, BID, 0 Refill(s) Start Date: 05/02/15 Status: Ordered SEROquel Oral, 0 Refill(s) Start Date: 12/22/14 Status: Ordered traZODone Oral, 0 Refill(s) Start Date: 05/02/15 Status: Ordered Zithromax Z-Sandip 250 mg oral tablet 1 packets, Oral, Once, as directed on package labeling, # 6 tabs, 0 Refill(s) Start Date: 05/02/15 Status: Ordered Results No data available for this section Immunizations No data available for this section Procedures No data available for this section Social History Social History Type Response Smoking Status Current every day smoker; Type: Cigarettes Assessment and Plan No data available for this section
--- OUTSIDE RECORDS SUMMARY | 2018-03-26 01:41 | XMS REPORT | Referral Summary ---
Author Author [facility] Organization [facility] Address Unknown Phone Unavailable Care Team Providers Care Steel Handler Name Role Phone [facility] PCP Unavailable Encounter VC EDGE [id number] Date(s): 02/29/16 - 03/01/16 [facility] [address] [place], [place] [address] Discharge Diagnosis: Complete miscarriage Discharge Diagnosis: Complete miscarriage Discharge Disposition: 01-Home or Self Care Attending Physician: Stevie Srivastava MD Admitting Physician: Stevie Srivastava MD Vital Signs Most recent to 1 oldest [Reference Range]: Temperature Oral 36.7 degC [35.8-37.3 degC] (02/29/16 11:50 PM) Peripheral Pulse 88 bpm Rate [60-100 bpm] (02/29/16 11:50 PM) Respiratory Rate 16 br/min [14-20 br/min] (02/29/16 11:50 PM) Blood Pressure 105/71 mmHg [90-140/60-90 mmHg] (02/29/16 11:50 PM) SpO2 99 % (02/29/16 11:50 PM) Problem List Condition Effective Dates Status [...] 0 Refill(s) Start Date: 05/02/15 Status: Ordered Effexor Oral, 0 Refill(s) Start Date: 05/02/15 Status: Ordered Haldol Decanoate IntraMuscular, q4wk, 0 Refill(s) Start Date: 12/22/14 Status: Ordered ibuprofen 800 mg oral tablet 800 mg 1 tabs, Oral, q8hr, as needed for pain, # 21 tabs, 0 Refill(s) Start Date: 11/25/15 Stop Date: 12/02/15 Status: Ordered levothyroxine Daily, 0 Refill(s) Start Date: 12/22/14 Status: Ordered lithium Oral, 0 Refill(s) Start Date: 02/18/16 Status: Ordered Percocet 5/325 oral tablet 1-2, Oral, q4hr, as needed for pain, X 7 days, # 12 tabs, 0 Refill(s) Start Date: 03/01/16 Stop Date: 03/08/16 Status: Ordered Prena1 oral capsule 1 caps, Oral, Daily, # 30 caps, 0 Refill(s) Start Date: 02/18/16 Stop Date: 03/19/16 Status: Ordered ProAir HFA 90 mcg/inh inhalation aerosol 1 puffs, Inhalation, QID, as needed for wheezing, # 8.5 g, 0 Refill(s) Start Date: 10/23/15 Status: Ordered SEROquel Oral, 0 Refill(s) Start Date: 12/22/14 Status: Ordered traZODone Oral, 0 Refill(s) Start Date: 05/02/15 Status: Ordered Wellbutrin Oral, 0 Refill(s) Start Date: 02/18/16 Status: Ordered Results No data available for this section Immunizations No data available for this section Procedures No data available for this section Social History Social History Type Response Smoking Status Current every day smoker; Type: Cigarettes Assessment and Plan No data available for this section
--- OUTSIDE RECORDS SUMMARY | 2018-03-26 01:41 | XMS REPORT ---
Author Author Melvina Iraheta [facility] Address [address] [place] [address] Care Team Providers Care Electrode Cleaning Machine Operator Name Role Phone Melvina Iraheta Unavailable PROBLEMS Unknown Problems ALLERGIES Unknown Allergies SOCIAL HISTORY No smoking Hx information available PLAN OF CARE VITAL SIGNS MEDICATIONS Unknown Medications RESULTS No Results PROCEDURES No Known procedures IMMUNIZATIONS No Known Immunizations
--- OUTSIDE RECORDS SUMMARY | 2018-03-26 01:41 | XMS REPORT | Referral Summary ---
Author Author [facility] Organization [facility] Address Unknown Phone Unavailable Care Team Providers Care Wafer Polisher Name Role Phone [facility] PCP Unavailable Encounter [facility] EDGE [id number] Date(s): 02/28/16 - 02/28/16 [facility] [address] [place], [place] [address] Discharge Diagnosis: Threatened miscarriage Discharge Disposition: 01-Home or Self Care Attending Physician: Stevie Srivastava MD Admitting Physician: Stevie Srivastava MD Vital Signs Most recent to 1 oldest [Reference Range]: Temperature Oral 37.0 degC [35.8-37.3 degC] (02/28/16 8:10 PM) Peripheral Pulse 84 bpm Rate [60-100 bpm] (02/28/16 8:10 PM) Heart Rate Monitored 76 bpm [60-100 bpm] (02/28/16 9:48 PM) Respiratory Rate 18 br/min [14-20 br/min] (02/28/16 8:10 PM) Blood Pressure 104/60 mmHg [90-140/60-90 mmHg] (02/28/16 9:48 PM) Mean Arterial 74 mmHg Pressure, Cuff (02/28/16 9:48 PM) SpO2 100 % (02/28/16 9:48 PM) Problem List Condition Effective Dates Status [...] 0 Refill(s) Start Date: 02/18/16 Status: Ordered Prena1 oral capsule 1 caps, [...] Refill(s) Start Date: 02/18/16 Status: Ordered Results Hematology Most recent to 1 oldest [Reference Range]: WBC [4.8-10.8 7.4 10*3/uL 10*3/uL] (02/28/16 9:07 PM) RBC [4.00-5.20] 4.06 (02/28/16 9:07 PM) Hgb [12.0-16.0 12.6 gm/dL gm/dL] (02/28/16 9:07 PM) Hct [37.0-47.0 %] 37.6 % (02/28/16 9:07 PM) MCV [82.0-99.0 fL] 92.6 fL (02/28/16 9:07 PM) MCH [27.0-32.0 pg] 31.0 pg (02/28/16 9:07 PM) MCHC [32.0-36.0 33.5 gm/dL gm/dL] (02/28/16 9:07 PM) RDW [11.5-14.5 %] 13.0 % (02/28/16 9:07 PM) Platelet [150-400 285 10*3/uL 10*3/uL] (02/28/16 9:07 PM) MPV [9.4-12.4 fL] 10.0 fL (02/28/16 9:07 PM) Immature 0.1 % Granulocytes (02/28/16:07 PM) [0.0-1.0 %] Neutrophils [51-75 55 % %] (02/28/16 9:07 PM) Lymphocytes [20-46 32 % %] (02/28/16 9:07 PM) Monocytes [4-11 %] 6 % (02/28/16 9:07 PM) Eosinophils [0-4 %] 7 % *HI* (02/28/16:07 PM) Basophils [0-2 %] 0 % (02/28/16 9:07 PM) Neutro Absolute 4.06 10*3 [1.90-7.00 10*3] (02/28/16 9:07 PM) Lymph Absolute 2.41 10*3 [0.80-3.30 10*3] (02/28/16 9:07 PM) Hart Absolute 0.42 10*3 [0.30-1.00 10*3] (02/28/16 9:07 PM) Eos Absolute 0.52 10*3 [0.00-0.50 10*3] *HI* (02/28/16 9:07 PM) Baso Absolute 0.03 10*3 [0.00-0.20 10*3] (02/28/16 9:07 PM) Chemistry Most recent to 1 oldest [Reference Range]: [place] 07367 mIU/mL 1 (02/28/16 9:07 PM) 1Result Comment: Normal Ranges for Quantitative [...] 200,000 8 - 12 10,000 - 100,000 Urinalysis Most recent to 1 oldest [Reference Range]: UA Color Straw (02/28/16 9:07 PM) UA Appear Clear (02/28/16 9:07 PM) UA pH [5.0-8.0] 7.0 (02/28/16 9:07 PM) UA Leuk Est Negative [Negative] (02/28/16 9:07 PM) UA Nitrite Negative [Negative] (02/28/16 9:07 PM) UA Protein Negative [Negative] (02/28/16 9:07 PM) UA Glucose Negative [Negative] (02/28/16 9:07 PM) UA Ketones Negative [Negative] (02/28/16 9:07 PM) UA Urobilinogen Negative [<1.0] (02/28/16 9:07 PM) UA Bili [Negative] Negative (02/28/16 9:07 PM) UA Blood [Negative] Pos 3+ *ABN* (02/28/16 9:07 PM) UA Spec Grav 1.005 [1.003-1.030] (02/28/16 9:07 PM) Type Clean Catch (02/28/16 9:07 PM) UA WBC [0-4] 0-2 (02/28/16 9:07 PM) UA RBC [0-2] 0-2 (02/28/16 9:07 PM) Epithelial Cells 0-2 (02/28/16 9:07 PM) UA Bacteria Rare (02/28/16 9:07 PM) Immunizations No data available for this section Procedures No data available for this section Social History Social History Type Response Smoking Status Current every day smoker; Type: Cigarettes Assessment and Plan No data available for this section
--- OUTSIDE RECORDS SUMMARY | 2018-03-26 01:41 | XMS REPORT | Referral Summary ---
Author Author [facility] Organization [facility] Address Unknown Phone Unavailable Care Team Providers Care Group Director Experience Name Role Phone [facility] PCP Unavailable Encounter [facility] EDGE [id number] Date(s): 01/25/16 - 01/25/16 [facility] [address] [place] [address] Discharge Diagnosis: Bronchitis Discharge Diagnosis: Infection, upper respiratory. Discharge Disposition: 01-Home or Self Care Attending Physician: José Magallanes MD Admitting Physician: José Magallanes MD Vital Signs Most recent to 1 oldest [Reference Range]: Temperature Oral 36.7 degC [35.8-37.3 degC] (01/25/16 8:58 PM) Peripheral Pulse 120 bpm 1 Rate [60-100 bpm] *HI* (01/25/16 11:07 PM) Respiratory Rate 16 br/min [14-20 br/min] (01/25/16 11:07 PM) Blood Pressure 101/78 mmHg [90-140/60-90 mmHg] (01/25/16 11:07 PM) Pulse Rate [60-100 86 bpm bpm] (01/25/16 10:43 PM) SpO2 100 % (01/25/16 11:07 PM) 1Result Comment: After breathing tx Problem List Condition Effective Dates Status Health [...] 0 Refill(s) Start Date: 12/22/14 Status: Ordered Claritin-D 24 Hour oral tablet, extended release 1 tabs, Oral, Daily, X 14 days, # 14 tabs, 0 Refill(s) Start Date: 01/25/16 Stop Date: 02/08/16 Status: Ordered Depakote Oral, TID, 0 Refill(s) [...] Status: Ordered predniSONE 20 mg oral tablet 20 mg 1 tabs, Oral, Daily, X 5 days, # 5 tabs, 0 Refill(s) Start Date: 01/25/16 Stop Date: 01/30/16 Status: Ordered ProAir HFA 90 mcg/inh inhalation [...]
--- OUTSIDE RECORDS SUMMARY | 2018-03-26 01:42 | XMS REPORT | Referral Summary ---
Author Author [facility] Organization [facility] Address Unknown Phone Unavailable Care Team Providers Care Oil Rig Driller Name Role Phone [facility] PCP Unavailable Encounter [facility] EDGE [id number] Date(s): 06/10/15 - 06/10/15 [facility] [address] [place] [address] Discharge Diagnosis: Nausea & vomiting Final: NAUSEA WITH VOMITING Final: TOBACCO USE DISORDER Discharge Disposition: 01-Home or Self Care Attending Physician: Navin Reynolds MD Admitting Physician: Navin Reynolds MD Vital Signs Most recent to 1 oldest [Reference Range]: Temperature Oral 35.6 degC [35.8-37.3 degC] *LOW* (06/10/15 10:22 AM) Peripheral Pulse 71 bpm Rate [60-100 bpm] (06/10/15 11:00 AM) Heart Rate Monitored 76 bpm [60-100 bpm] (06/10/15 12:24 PM) Respiratory Rate 18 br/min [14-20 br/min] (06/10/15 12:24 PM) Blood Pressure 104/62 mmHg [90-140/60-90 mmHg] (06/10/15 12:24 PM) SpO2 99 % (06/10/15 12:24 PM) Problem List Condition Effective Dates Status [...] 0 Refill(s) Start Date: 12/22/14 Status: Ordered ProAir HFA 90 mcg/inh inhalation [...] Refill(s) Start Date: 05/02/15 Status: Ordered Results Chemistry Most recent to 1 oldest [Reference Range]: Sodium Venous 140 mEq/L [136-144 mEq/L] (06/10/15 11:46 AM) Potassium Venous 3.6 mEq/L 1 [3.6-5.1 mEq/L] (06/10/15 11:46 AM) Calcium Ionized 1.12 mmol/L Venous [1.19-1.41 *LOW* mmol/L] (06/10/15 11:46 AM) Total CO2 Venous 24 mEq/L [25-29 mEq/L] *LOW* (06/10/15 11:46 AM) HGB Venous NPT 11.6 gm/dL [12.0-16.0 gm/dL] *LOW* (06/10/15 11:46 AM) HCT Venous 34.0 % [37.0-47.0 %] *LOW* (06/10/15 11:46 AM) Glucose Venous 88 mg/dL [70-100 mg/dL] (06/10/15 11:46 AM) BUN Venous [4-20] 7 (06/10/15 11:46 AM) Creatinine Venous 0.8 mg/dL [0.4-1.0 mg/dL] (06/10/15 11:46 AM) Venous CL [99-109 106 mEq/L mEq/L] (06/10/15 11:46 AM) Anion Gap, Yogi 10 [3-20] (06/10/15 11:46 AM) Screen, Negative Urine NPT (06/10/15 11:02 AM) U Beta hCG Ql Neg (06/10/15 11:00 AM) 1Result Comment: This test was performed on a whole blood specimen. The presence or absence of hemolysis cannot be assessed. Hemolysis can falsely elevate potassium levels. Normals are for venous specimens only. Immunizations No data available for this section Procedures No data available for this section Social History Social History Type Response Smoking Status Current every day smoker; Type: Cigarettes Assessment and Plan No data available for this section
--- OUTSIDE RECORDS SUMMARY | 2018-03-26 01:42 | XMS REPORT | Referral Summary ---
Author Author [facility] Organization [facility] Address Unknown Phone Unavailable Care Team Providers Care Hardness Inspector Name Role Phone [facility] PCP Unavailable Encounter VC EDGE [id number] Date(s): 02/18/16 - 02/18/[address] [facility] [address] [place], [place] [address] Discharge Diagnosis: Discharge Diagnosis: Vomiting Discharge Diagnosis: Urinary tract infection Discharge Disposition: 01-Home or Self Care Attending Physician: Richar Pierce MD Admitting Physician: Richar Pierce MD Vital Signs Most recent to 1 oldest [Reference Range]: Temperature Oral 36.3 degC [35.8-37.3 degC] (02/18/16 1:51 PM) Peripheral Pulse 87 bpm Rate [60-100 bpm] (02/18/16 1:51 PM) Respiratory Rate 18 br/min [14-20 br/min] (02/18/16 1:51 PM) Blood Pressure 110/81 mmHg [90-140/60-90 mmHg] (02/18/16 1:51 PM) SpO2 98 % (02/18/16 1:51 PM) Problem List Condition Effective Dates Status [...] 0 Refill(s) Start Date: 02/18/16 Status: Ordered Macrobid 100 mg oral capsule 100 mg 1 caps, Oral, BID, X 7 days, # 14 caps, 0 Refill(s) Start Date: 02/18/16 Stop Date: 02/25/16 Status: Ordered Prena1 oral capsule 1 caps, [...] 0 Refill(s) Start Date: 02/18/16 Status: Ordered Zofran ODT 4 mg oral tablet, disintegrating 4 mg 1 tabs, Oral, q4hr, Nausea or Vomiting | as needed for nausea/vomiting, X 3 days, # 10 tabs, 0 Refill(s) Start Date: 02/18/16 Stop Date: 02/21/16 Status: Ordered Results Hematology Most recent to 1 oldest [Reference Range]: WBC [4.8-10.8 6.2 10*3/uL 10*3/uL] (02/18/16 2:51 PM) RBC [4.00-5.20] 4.44 (02/18/16 2:51 PM) Hgb [12.0-16.0 13.8 gm/dL gm/dL] (02/18/16 2:51 PM) Hct [37.0-47.0 %] 41.1 % (02/18/16 2:51 PM) MCV [82.0-99.0 fL] 92.6 fL (02/18/16 2:51 PM) MCH [27.0-32.0 pg] 31.1 pg (02/18/16 2:51 PM) MCHC [32.0-36.0 33.6 gm/dL gm/dL] (02/18/16 2:51 PM) RDW [11.5-14.5 %] 12.9 % (02/18/16 2:51 PM) Platelet [150-400 250 10*3/uL 10*3/uL] (02/18/16 2:51 PM) MPV [9.4-12.4 fL] 10.3 fL (02/18/16 2:51 PM) Immature 0.2 % Granulocytes (02/18/16 2:51 PM) [0.0-1.0 %] Neutrophils [51-75 49 % %] *LOW* (02/18/16 2:51 PM) Lymphocytes [20-46 34 % %] (02/18/16 2:51 PM) Monocytes [4-11 %] 8 % (02/18/16 2:51 PM) Eosinophils [0-4 %] 9 % *HI* (02/18/16 2:51 PM) Basophils [0-2 %] 1 % (02/18/16 2:51 PM) Neutro Absolute 3.01 10*3 [1.90-7.00 10*3] (02/18/16 2:51 PM) Lymph Absolute 2.09 10*3 [0.80-3.30 10*3] (02/18/16 2:51 PM) [place] Absolute 0.47 10*3 [0.30-1.00 10*3] (02/18/16 2:51 PM) Eos Absolute 0.57 10*3 [0.00-0.50 10*3] *HI* (02/18/16 2:51 PM) Baso Absolute 0.05 10*3 [0.00-0.20 10*3] (02/18/16 2:51 PM) Chemistry Most recent to 1 oldest [Reference Range]: Sodium Lvl [136-144 134 mEq/L mEq/L] *LOW* (02/18/16 2:51 PM) Potassium Lvl 4.6 mEq/L 1 [3.6-5.1 mEq/L] (02/18/16 2:51 PM) Chloride [99-109 105 mEq/L mEq/L] (02/18/16 2:51 PM) CO2 [22-32 mEq/L] 23 mEq/L (02/18/16 2:51 PM) AGAP [3-20] 6 (02/18/16 2:51 PM) BUN [4-20 mg/dL] 7 mg/dL (02/18/16 2:51 PM) Glucose Lvl [70-100 81 mg/dL mg/dL] (02/18/16 2:51 PM) Creatinine Lvl 0.70 mg/dL [0.44-1.03 mg/dL] (02/18/16 2:51 PM) eGFR [>60] >60 2 (02/18/16 2:51 PM) Calcium Lvl 8.6 mg/dL [8.6-10.0 mg/dL] (02/18/16 2:51 PM) Albumin Lvl [3.5-4.8 3.9 gm/dL gm/dL] (02/18/16 2:51 PM) Total Protein 6.4 gm/dL [6.1-7.9 gm/dL] (02/18/16 2:51 PM) Globulin [1.9-4.3 2.5 gm/dL gm/dL] (02/18/16 2:51 PM) ALT [14-54 U/L] 13 U/L *LOW* (02/18/16 2:51 PM) AST [15-41 U/L] 32 U/L (02/18/16 2:51 PM) Alk Phos [26-104 53 U/L U/L] (02/18/16 2:51 PM) Bili Total [0.2-1.2 1.6 mg/dL 3 mg/dL] *HI* (02/18/16 2:51 PM) [place] [address]692 mIU/mL 4 (02/18/16 2:51 PM) 1Result Comment: Hemolyzed specimen. The following tests may be affected: ALT, AST, Ammonia, Iron, Potassium, LDH, Amylase, CPK, and Total Bilirubin. 2Result Comment: Multiply eGFR results by 1.21 for race. 3Result Comment: Naproxen, specifically the metabolite O-desmethylnaproxen, may cause spurious elevation in Total Bilirubin levels. 4Result Comment: Normal Ranges for Quantitative Beta-HCG are [...] oldest [Reference Range]: UA Color Aliza *ABN* (02/18/16 2:51 PM) UA Appear Cloudy *ABN* (02/18/16 2:51 PM) UA pH [5.0-8.0] 6.0 (02/18/16 2:51 PM) UA Leuk Est Pos 3+ [Negative] *ABN* (02/18/16 2:51 PM) UA Nitrite Negative [Negative] (02/18/16 2:51 PM) UA Protein Pos 1+ [Negative] *ABN* (02/18/16 2:51 PM) UA Glucose Negative [Negative] (02/18/16 2:51 PM) UA Ketones Negative [Negative] (02/18/16 2:51 PM) UA Urobilinogen 2.0 mg/dL [<1.0 mg/dL] *ABN* (02/18/16 2:51 PM) UA Bili [Negative] Negative (02/18/16 2:51 PM) UA Blood [Negative] Negative (02/18/16 2:51 PM) UA Spec Grav 1.025 [1.003-1.030] (02/18/16 2:51 PM) Type Clean Catch (02/18/16 2:51 PM) UA WBC [0-4] 20-50 *ABN* (02/18/16 2:51 PM) UA RBC [0-2] 10-20 *ABN* (02/18/16 2:51 PM) Epithelial Cells 20-50 (02/18/16 2:51 PM) UA Bacteria Rare (02/18/16 2:51 PM) UA Mucous Present (02/18/16 2:51 PM) Microbiology Reports TEST: Affirm Vaginitis Panel STATUS: Auth (Verified) BODY SITE: SOURCE: Cervix/Vaginal COLLECTED DATE/TIME: 02/18/16 3:05 PM Affirm Vaginitis Panel Negative for Trichomonas vaginalis Positive for Gardnerella vaginalis Negative for Jasmina species Immunizations No data available for this section Procedures No data available for this section Social History Social History Type Response Smoking Status Current every day smoker; Type: Cigarettes Assessment and Plan No data available for this section"
--- OUTSIDE RECORDS SUMMARY | 2018-03-26 01:42 | XMS REPORT | Referral Summary ---
Author Author [facility] Organization [facility] Address Unknown Phone Unavailable Care Team Providers Care Trade Clerk Name Role Phone [facility] PCP Unavailable Encounter VC EDGE [id number] Date(s): 11/04/17 - 11/04/17 [facility] [address] [place], [place] [address] Discharge Disposition: Without Being Seen Attending Physician: Zac Tijerina DO Admitting Physician: Zac Tijerina DO Vital Signs Most recent to 1 oldest [Reference Range]: Temperature Oral 36.7 degC [35.8-37.3 degC] (11/04/17 3:22 AM) Peripheral Pulse 106 bpm Rate [60-100 bpm] *HI* (11/04/17 3:22 AM) Respiratory Rate 16 br/min [14-20 br/min] (11/04/17 3:22 AM) Blood Pressure 126/101 mmHg [90-140/60-90 mmHg] (11/04/17 3:22 AM) SpO2 100 % (11/04/17 3:22 AM) Problem List Condition Effective Dates Status [...]
--- OUTSIDE RECORDS SUMMARY | 2018-03-26 01:42 | XMS REPORT | Referral Summary ---
Author Author [facility] Organization [facility] Address Unknown Phone Unavailable Care Team Providers Care Quality Assurance/R&D Lab Technician Name Role Phone [facility] PCP Unavailable Encounter VC EDGE [id number] Date(s): 11/25/15 - 11/25/15 [facility] [address] [place] [address] Discharge Diagnosis: Sore throat Discharge Disposition: 01-Home or Self Care Attending Physician: José Magallanes MD Admitting Physician: José Magallanes MD Vital Signs Most recent to 1 oldest [Reference Range]: Temperature Oral 36.6 degC [35.8-37.3 degC] (11/25/15 1:14 PM) Peripheral Pulse 74 bpm Rate [60-100 bpm] (11/25/15 1:14 PM) Respiratory Rate 14 br/min [14-20 br/min] (11/25/15 1:14 PM) Blood Pressure 114/79 mmHg [90-140/60-90 mmHg] (11/25/15 1:14 PM) SpO2 100 % (11/25/15 1:14 PM) Problem List Condition Effective Dates Status [...] 0 Refill(s) Start Date: 12/22/14 Status: Ordered doxycycline hyclate 100 mg oral capsule 100 mg 1 caps, Oral, BID, X 10 days, # 20 caps, 0 Refill(s) Start Date: 11/25/15 Stop Date: 12/05/15 Status: Ordered Effexor Oral, 0 Refill(s) Start [...] Refill(s) Start Date: 12/22/14 Status: Ordered predniSONE 50 mg oral tablet 50 mg 1 tabs, Oral, Daily, X 5 days, # 5 tabs, 0 Refill(s) Start Date: 11/25/15 Stop Date: 11/30/15 Status: Ordered ProAir HFA 90 mcg/inh inhalation [...] Refill(s) Start Date: 05/02/15 Status: Ordered Results Microbiology Reports TEST: Rapid Strep Group A STATUS: Auth (Verified) BODY SITE: SOURCE: Throat COLLECTED DATE/TIME: 11/25/15 1:23 PM Rapid Strep Group A Negative Immunizations No data available for this section Procedures No data available for this section Social History Social History Type Response Smoking Status Current every day smoker; Type: Cigarettes Assessment and Plan No data available for this section
--- OUTSIDE RECORDS SUMMARY | 2018-03-26 01:42 | XMS REPORT | Referral Summary ---
Author Author [facility] Organization [facility] Address Unknown Phone Unavailable Care Team Providers Care Supervisor Of Way Name Role Phone [facility] PCP Unavailable Encounter VC EDGE [id number] Date(s): 06/11/17 - 06/11/17 [facility] [address] [place], [place] [id number] [place] [address] Discharge Diagnosis: Encounter for test, result negative Discharge Disposition: 01-Home or Self Care Attending Physician: Joey Zarate DO Admitting Physician: Joey Zarate DO Referring Physician: Self Referred, X Vital Signs Most recent to 1 oldest [Reference Range]: Temperature Oral 36.5 degC [35.8-37.3 degC] (06/11/17 11:01 AM) Peripheral Pulse 91 bpm Rate [60-100 bpm] (06/11/17 11:01 AM) Respiratory Rate 18 br/min [14-20 br/min] (06/11/17 11:01 AM) Blood Pressure 98/64 mmHg [90-140/60-90 mmHg] (06/11/17 11:01 AM) SpO2 98 % (06/11/17 11:01 AM) Problem List Condition Effective Dates Status [...] Active penicillin Throat swelling Severe Active Medications DuoNeb 0.5 mg-2.5 mg/3 mL [...] Most recent to 1 oldest [Reference Range]: Screen, Negative Urine NPT (06/11/17 11:20 AM) Immunizations Given and Recorded Vaccine Date [...]
--- OUTSIDE RECORDS SUMMARY | 2018-03-26 01:42 | XMS REPORT | Referral Summary ---
Author Author [facility] Organization [facility] Address Unknown Phone Unavailable Care Team Providers Care Director Dietetics Department Name Role Phone [facility] PCP Unavailable Encounter VC EDGE [id number] Date(s): 05/02/15 - 05/02/15 [facility] [address] [place] [address] Discharge Diagnosis: Tobacco abuse Final: ACUTE BRONCHITIS Final: TOBACCO USE DISORDER Discharge Diagnosis: Acute bronchitis Discharge Diagnosis: Asthma Discharge Disposition: 01-Home or Self Care Attending Physician: José Magallanes MD Admitting Physician: José Magallanes MD Vital Signs Most recent to 1 oldest [Reference Range]: Temperature Oral 36.7 degC [35.8-37.3 degC] (05/02/15 1:17 PM) Peripheral Pulse 84 bpm Rate [60-100 bpm] (05/02/15 5:14 PM) Heart Rate Monitored 98 bpm [60-100 bpm] (05/02/15 2:56 PM) Respiratory Rate 16 br/min [14-20 br/min] (05/02/15 5:14 PM) Blood Pressure 97/64 mmHg [90-140/60-90 mmHg] (05/02/15 5:14 PM) SpO2 96 % (05/02/15 5:14 PM) Problem List Condition Effective Dates Status [...] (Verified) BODY SITE: SOURCE: Throat COLLECTED DATE/TIME: 05/02/15 4:02 PM Rapid Strep Group A Negative TEST: Group A Strep Culture STATUS: Auth (Verified) BODY SITE: SOURCE: Throat COLLECTED DATE/TIME: 05/02/15 4:02 PM Group A Strep Culture No Group A Strep (Strep pyogenes) isolated Immunizations No data available for this section Procedures No data available for this section Social History Social History Type Response Smoking Status Current every day smoker; Type: Cigarettes Assessment and Plan No data available for this section
--- OUTSIDE RECORDS SUMMARY | 2018-03-26 01:43 | XMS REPORT | Referral Summary ---
Author Author [facility] Organization [facility] Address Unknown Phone Unavailable Care Team Providers Care Jewelsmith Name Role Phone [facility] PCP Unavailable Encounter VC EDGE [id number] Date(s): 02/09/17 - 02/09/17 [facility] [address] [place], [place] [address] Discharge Diagnosis: Abdominal pain Final: Left lower quadrant pain Final: Bipolar disorder, unspecified Final: Post-traumatic stress disorder, unspecified Final: Unspecified asthma, uncomplicated Final: Borderline personality disorder Final: Nicotine dependence, cigarettes, uncomplicated Final: Acquired absence of other specified parts of digestive tract Discharge Disposition: 01-Home or Self Care Attending Physician: Madelin Love MD Admitting Physician: Madelin Love MD Vital Signs Most recent to 1 oldest [Reference Range]: Temperature Oral 36.4 degC [35.8-37.3 degC] (02/09/17 8:33 AM) Peripheral Pulse 75 bpm Rate [60-100 bpm] (02/09/17 8:33 AM) Heart Rate Monitored 76 bpm [60-100 bpm] (02/09/17 1:30 PM) Respiratory Rate 16 br/min [14-20 br/min] (02/09/17 1:30 PM) Blood Pressure 99/68 mmHg [90-140/60-90 mmHg] (02/09/17 1:30 PM) SpO2 98 % (02/09/17 8:33 AM) Problem List Condition Effective Dates Status [...] Active penicillin Throat swelling Severe Active Medications doxycycline hyclate 100 mg oral capsule 100 mg 1 caps, Oral, BID, X 14 days, # 28 caps, 0 Refill(s) Start Date: 02/09/17 Stop Date: 02/23/17 Status: Ordered DuoNeb 0.5 mg-2.5 mg/3 mL inhalation solution 3 mL, NEB, QID, as needed for shortness of breath or wheezing, 0 Refill(s) Start Date: 08/16/16 Status: Ordered Haldol 0 Refill(s) Start Date: 09/30/16 Status: Ordered ibuprofen 800 mg oral tablet 800 mg 1 tabs, Oral, q8hr, # 30 tabs, 0 Refill(s) Start Date: 02/09/17 Status: Ordered Symbicort 160 mcg-4.5 mcg/inh inhalation aerosol 2 puffs, Inhalation, BID, 0 Refill(s) Start Date: 08/16/16 Status: Ordered Wellbutrin Oral, 0 Refill(s) Start Date: 09/30/16 Status: Ordered Results Hematology Most recent to 1 oldest [Reference Range]: WBC [4.8-10.8 5.6 10*3/uL 10*3/uL] (02/09/17 9:54 AM) RBC [4.00-5.20] 3.88 *LOW* (02/09/17 9:54 AM) Hgb [12.0-16.0 11.6 gm/dL gm/dL] *LOW* (02/09/17 9:54 AM) Hct [37.0-47.0 %] 35.6 % *LOW* (02/09/17 9:54 AM) MCV [82.0-99.0 fL] 91.8 fL (02/09/17 9:54 AM) MCH [27.0-32.0 pg] 29.9 pg (02/09/17 9:54 AM) MCHC [32.0-36.0 32.6 gm/dL gm/dL] (02/09/17 9:54 AM) RDW [11.5-14.5 %] 13.9 % (02/09/17 9:54 AM) Platelet [150-400 271 10*3/uL 10*3/uL] (02/09/17 9:54 AM) MPV [9.4-12.4 fL] 10.0 fL (02/09/17 9:54 AM) Immature 0.4 % Granulocytes (02/09/17:54 AM) [0.0-1.0 %] Neutrophils [51-75 56 % %] (02/09/17 9:54 AM) Lymphocytes [20-46 30 % %] (02/09/17 9:54 AM) Monocytes [4-11 %] 7 % (02/09/17 9:54 AM) Eosinophils [0-4 %] 6 % *HI* (02/09/17:54 AM) Basophils [0-2 %] 1 % (02/09/17 9:54 AM) Neutro Absolute 3.14 [1.90-7.00] (02/09/17 9:54 AM) Lymph Absolute 1.67 [0.80-3.30] (02/09/17 9:54 AM) [place] Absolute 0.41 [0.30-1.00] (02/09/17 9:54 AM) Eos Absolute 0.31 [0.00-0.50] (02/09/17 9:54 AM) Baso Absolute 0.03 [0.00-0.20] (02/09/17 9:54 AM) Nucleated RBC 0.0 /100 WBC Automated [0 /100 (02/09/17 9:54 AM) WBC] Urinalysis Most recent to 1 oldest [Reference Range]: UA Color Yellow (02/09/17 9:06 AM) UA Appear Cloudy *ABN* (02/09/17 9:06 AM) UA pH [5.0-8.0] 7.0 (02/09/17 9:06 AM) UA Leuk Est Negative [Negative] (02/09/17 9:06 AM) UA Nitrite Negative [Negative] (02/09/17 9:06 AM) UA Protein Negative [Negative] (02/09/17 9:06 AM) UA Glucose Negative [Negative] (02/09/17 9:06 AM) UA Ketones Negative [Negative] (02/09/17 9:06 AM) UA Urobilinogen Negative [<1.0] (02/09/17 9:06 AM) UA Bili [Negative] Negative (02/09/17 9:06 AM) UA Blood [Negative] Negative (02/09/17 9:06 AM) UA Spec Grav 1.020 [1.003-1.030] (02/09/17 9:06 AM) Type Clean Catch (02/09/17 9:06 AM) Microbiology Reports TEST: Affirm Vaginitis Panel STATUS: Auth (Verified) BODY SITE: SOURCE: Vaginal COLLECTED DATE/TIME: 02/09/17 10:16 AM Affirm Vaginitis Panel Negative for Trichomonas vaginalis Positive for Gardnerella vaginalis Negative for Jasmina species Immunizations Given and Recorded Vaccine Date Status [...]
--- OUTSIDE RECORDS SUMMARY | 2018-03-26 01:43 | XMS REPORT | Referral Summary ---
Author Author [facility] Organization [facility] Address Unknown Phone Unavailable Care Team Providers Care Magnetic Prospecting Supervisor Name Role Phone [facility] PCP Unavailable No PCP, Pt States PCP Bart Lopez PCP Encounter [facility] Date(s): 01/04/18 - 01/04/18 [facility] [address] [place] [address] [place] Encounter Diagnosis Abdominal pain (Discharge Diagnosis) - 01/04/18 Bacteriuria (Discharge Diagnosis) - 01/04/18 Medical non-compliance (Discharge Diagnosis) - 01/04/18 Methamphetamine use (Discharge Diagnosis) - 01/04/18 Hypoglycemia (Discharge Diagnosis) - 01/04/18 Discharge Disposition: 01-Home or Self Care Attending Physician: José Magallanes MD Admitting Physician: José Magallanes MD Vital Signs Most recent to 1 oldest [Reference Range]: Temperature Oral 36.8 degC [35.8-37.3 degC] (01/04/18 10:24 AM) Peripheral Pulse 97 bpm Rate [60-100 bpm] (01/04/18 12:29 PM) Respiratory Rate 18 br/min [14-20 br/min] (01/04/18 12:29 PM) Blood Pressure 114/78 mmHg [90-140/60-90 mmHg] (01/04/18 12:29 PM) SpO2 99 % (01/04/18 12:29 PM) Problem List Condition Effective Dates Status Health Status Informant Acute Active pain(Confirmed) Asthma(Confirmed) Active At risk for Resolved injury(Confirmed)1 At risk of pressure Resolved sore(Confirmed) Bipolar disease, Active chronic(Confirmed) Borderline Active personality disorder(Confirmed) Depression(Confirmed Active ) Hypocalcemia(Confirm Resolved patient ed) Hypothyroidism(Confi Active rmed) Impaired gas Resolved exchange(Confirmed)2 Ineffective coping Active (individual)(Confirm ed)3 Knowledge Active deficit(Confirmed)4 Post traumatic Active stress disorder (PTSD)(Confirmed) Tobacco Active patient user(Confirmed) 1Problem added automatically by system based on initiation of Risk for Injury Plan of Care 2Problem added automatically by system based on initiation of Impaired Gas Exchange Plan of Care 3Problem added automatically by system based on initiation of Ineffective Coping Plan of Care 4Problem added automatically by system based on initiation of Knowledge Deficit Plan of Care Allergies, Adverse Reactions, Alerts Substance Reaction Severity Status penicillin Throat swelling Severe Active Latex Active Depakote ER Hematemesis Medium Active Medications Advair HFA 115 mcg-21 mcg/inh inhalation aerosol 2 puffs, Inhalation, qAM, 0 Refill(s) Start Date: 11/22/17 Status: Ordered Benadryl 25 mg oral capsule 50 mg 2 caps, Oral, BID, 0 Refill(s) Start Date: 12/24/17 Status: Ordered hydrOXYzine hydrochloride 25 mg oral tablet 50 mg 2 tabs, Oral, TID, Anxiety, 0 Refill(s) Start Date: 12/24/17 Status: Ordered Latuda 60 mg oral tablet 60 mg 1 tabs, Oral, With Dinner, 0 Refill(s) Start Date: 12/24/17 Status: Ordered Macrobid 100 mg oral capsule 100 mg 1 caps, Oral, BID, with food SUP/José Magallanes MD., X 7 days, # 14 caps , 0 Refill(s) Start Date: 01/04/18 Stop Date: 01/11/18 Status: Ordered ZyPREXA Zydis 10 mg oral tablet, disintegrating 20 mg 2 tabs, Oral, Bedtime (once a day), 0 Refill(s) Start Date: 12/24/17 Status: Ordered Results Hematology Most recent to 1 oldest [Reference Range]: WBC [4.8-10.8 6.1 10*3/uL 10*3/uL] (01/04/18 11:28 AM) RBC [4.00-5.20] 3.91 *LOW* (01/04/18 11:28 AM) Hgb [12.0-16.0 11.7 gm/dL gm/dL] *LOW* (01/04/18 11:28 AM) Hct [37.0-47.0 %] 36.8 % *LOW* (01/04/18 AM) MCV [82.0-99.0 fL] 94.1 fL (01/04/18 AM) MCH [27.0-32.0 pg] 29.9 pg (01/04/18 AM) MCHC [32.0-36.0 31.8 gm/dL gm/dL] *LOW* (01/04/18) RDW [11.5-14.5 %] 13.3 % (01/04/18 AM) Platelet [150-400 290 10*3/uL 10*3/uL] (01/04/18 AM) MPV [9.4-12.4 fL] 9.4 fL (01/04/18 AM) Immature 0.5 % Granulocytes (01/04/18) [0.0-1.0 %] Neutrophils [51-75 56 % %] (01/04/18 AM) Lymphocytes [20-46 32 % %] (01/04/18 AM) Monocytes [4-11 %] 7 % (01/04/18 AM) Eosinophils [0-4 %] 4 % (01/04/18 AM) Basophils [0-2 %] 1 % (01/04/18 AM) Neutro Absolute 3.42 [1.90-7.00] (01/04/18 AM) Lymph Absolute 1.96 [0.80-3.30] (01/04/18: AM) [place] Absolute 0.43 [0.30-1.00] (01/04/18: AM) Eos Absolute 0.26 [0.00-0.50] (01/04/18 AM) Baso Absolute 0.03 [0.00-0.20] (01/04/18 AM) Nucleated RBC 0.0 /100 WBC Automated [0 /100 (01/04/18: AM) WBC] Chemistry Most recent to 1 oldest [Reference Range]: Sodium Lvl [136-144 138 mEq/L mEq/L] (01/04/18 11:28 AM) Potassium Lvl 3.9 mEq/L [3.6-5.1 mEq/L] (01/04/18 11:28 AM) Chloride [99-109 104 mEq/L mEq/L] (01/04/18 11:28 AM) CO2 [22-32 mEq/L] 26 mEq/L (01/04/18 11: AM) AGAP [3-20 mEq/L] 8 mEq/L (01/04/18 11 AM) BUN [4-20 mg/dL] 12 mg/dL (01/04/18 11: AM) Glucose Lvl [70-100 67 mg/dL mg/dL] *LOW* (01/04/18: AM) Creatinine Lvl 0.58 mg/dL [0.44-1.03 mg/dL] (01/04/18 11: AM) eGFR [>60 mL/min] >60 mL/min 1 (01/04/18 11: AM) Calcium Lvl 8.3 mg/dL [8.6-10.0 mg/dL] *LOW* (01/04/18 11:28 AM) Screen, Negative Urine NPT (01/04/18 10:25 AM) Blood Glucose, 99 mg/dL Capillary [70-100 (01/04/18 12:22 PM) mg/dL] 1Result Comment: Multiply eGFR results by 1.21 for race. Urinalysis Most recent to 1 oldest [Reference Range]: UA Color Yellow (01/04/18 10:32 AM) UA Appear Sl Cloudy (01/04/18 10:32 AM) UA pH [5.0-8.0] 6.0 (01/04/18 10:32 AM) UA Leuk Est Trace [Negative] *ABN* (01/04/18 10:32 AM) UA Nitrite Negative [Negative] (01/04/18 10:32 AM) UA Protein Negative [Negative] (01/04/18 10:32 AM) UA Glucose Negative [Negative] (01/04/18 10:32 AM) UA Ketones Negative [Negative] (01/04/18 10:32 AM) UA Urobilinogen Negative [<1.0] (01/04/18 10:32 AM) UA Bili [Negative] Negative (01/04/18 10:32 AM) UA Blood [Negative] Negative (01/04/18 10:32 AM) UA Spec Grav 1.020 [1.003-1.030] (01/04/18 10:32 AM) Type Voided (01/04/18 10:32 AM) UA WBC [0-4] 2-5 (01/04/18 10:32 AM) UA RBC [0-2] 0-2 (01/04/18 10:32 AM) Epithelial Cells 10-20 (01/04/18 10:32 AM) UA Bacteria Moderate *ABN* (01/04/18 10:32 AM) UA Mucous Present (01/04/18 10:32 AM) Immunizations Given and Recorded Vaccine Date Status Refusal Reason pneumococcal 23-polyvalent vaccine 08/16/16 Given Not Given Vaccine Date Status Refusal Reason influenza virus vaccine, inactivated 12/19/17 Not Given Patient Refuses influenza virus vaccine, inactivated 08/16/16 Not Given Patient Refuses Procedures Procedure Date Related Diagnosis Body Site Status Cholecystectomy Laparoscopic1 08/16/16 Completed 1auto-populated from documented surgical case Social History Social History Type Response Smoking Status Current every day smoker; Tobacco use per day: 1 Pack entered on: 08/04/17 Assessment and Plan No data available for this section
--- OUTSIDE RECORDS SUMMARY | 2018-03-26 01:43 | XMS REPORT | Referral Summary ---
Author Author [facility] Organization [facility] Address Unknown Phone Unavailable Encounter [facility] [id number] Date(s): 10/23/15 - 10/23/15 [facility] [address] [place] [address] [place] Discharge Diagnosis: Chest wall pain Discharge Diagnosis: Mild asthma exacerbation Discharge Diagnosis: Acute URI Discharge Disposition: 01-Home or Self Care Attending Physician: Joey Zarate DO Admitting Physician: Joey Zarate DO Vital Signs Most recent to 1 oldest [Reference Range]: Temperature Oral 36.7 degC [35.8-37.3 degC] (10/23/15 12:25 AM) Peripheral Pulse 80 bpm Rate [60-100 bpm] (10/23/15 1:23 AM) Heart Rate Monitored 85 bpm [60-100 bpm] (10/23/15 2:00 AM) Respiratory Rate 18 br/min [14-20 br/min] (10/23/15 2:00 AM) Blood Pressure 105/80 mmHg [90-140/60-90 mmHg] (10/23/15 2:00 AM) Mean Arterial 89 mmHg Pressure, Cuff (10/23/15 1:20 AM) Pulse Rate [60-100 72 bpm bpm] (10/23/15 1:23 AM) SpO2 97 % (10/23/15 2:00 AM) Problem List Condition Effective Dates Status [...] 2 tabs, Oral, Daily, start tomorrow, X 5 days, # 10 tabs, 0 Refill(s), start tomorrow Start Date: 10/23/15 Stop Date: 10/28/15 Status: Ordered ProAir HFA 90 mcg/inh inhalation [...]
--- OUTSIDE RECORDS SUMMARY | 2018-03-26 01:43 | XMS REPORT | Referral Summary ---
Author Author [facility] Organization [facility] Address Unknown Phone Unavailable Care Team Providers Care Rock Breaker Name Role Phone [facility] PCP Unavailable No PCP, Pt States PCP Bart Lopez PCP Encounter [facility] [id number] Date(s): 11/21/17 - 11/28/[address] [facility] [address] [place] [address]- Encounter Diagnosis Acute metabolic encephalopathy (Discharge Diagnosis) - 11/22/17 Discharge Disposition: -Psychiatric Facility Attending Physician: Gavin Hernandez MD Admitting Physician: Jorge Brice MD Vital Signs Most recent to 1 oldest [Reference Range]: Temperature Oral 37.0 degC [35.8-37.3 degC] (11/25/17 8:03 PM) Temperature Tympanic 36.7 degC [36.6-38.1 degC] (11/22/17 4:00 PM) Temperature Temporal 36.6 degC Artery [36.3-37.8 (11/27/17 3:15 PM) degC] Peripheral Pulse 84 bpm Rate [60-100 bpm] (11/28/17 4:33 PM) Heart Rate Monitored 108 bpm [60-100 bpm] *HI* (11/27/17 9:41 PM) Respiratory Rate 18 br/min [14-20 br/min] (11/28/17 4:33 PM) Blood Pressure 113/74 mmHg [90-140/60-90 mmHg] (11/28/17 4:33 PM) Mean Arterial 83 mmHg Pressure, Cuff (11/27/17 9:15 AM) Pulse Rate [60-100 104 bpm bpm] *HI* (11/28/17 10:14 AM) SpO2 98 % (11/28/17 4:33 PM) Remote Telemetry Ongoing (11/22/17 8:00 AM) Problem List Condition Effective Dates Status Health Status Informant Acute Active pain(Confirmed) Asthma(Confirmed) Active At risk for Active injury(Confirmed)1 At risk of pressure Active sore(Confirmed) Bipolar disease, Active chronic(Confirmed) Borderline Active personality disorder(Confirmed) Depression(Confirmed Active ) Hypocalcemia(Confirm Active patient ed) Hypothyroidism(Confi Active rmed) Impaired gas Active exchange(Confirmed)2 Ineffective coping Active (individual)(Confirm ed)3 Knowledge [...] mcg-21 mcg/inh inhalation aerosol 2 puffs, Inhalation, BID, 0 Refill(s) Start Date: 11/22/17 Status: Ordered Latuda 60 mg oral tablet 60 mg 1 tabs, Oral, With Dinner, # 30 tabs, 0 Refill(s), Pharmacy: [facility], 1 tabs Oral With Dinner Start Date: 11/28/17 Status: Ordered Proventil HFA 90 mcg/inh inhalation aerosol 2 puffs, Inhalation, QID, Shortness of Breath/Wheezing, 0 Refill(s) Start Date: 11/22/17 Status: Ordered Results Hematology Most recent to 1 oldest [Reference Range]: WBC [4.8-10.8 5.0 10*3/uL 10*3/uL] (11/23/17 3:43 AM) RBC [4.00-5.20] 3.83 *LOW* (11/23/17 3:43 AM) Hgb [12.0-16.0 11.8 gm/dL gm/dL] *LOW* (11/23/17 3:43 AM) Hct [37.0-47.0 %] 36.3 % *LOW* (11/23/17 3:43 AM) MCV [82.0-99.0 fL] 94.8 fL (11/23/17 3:43 AM) MCH [27.0-32.0 pg] 30.8 pg (11/23/17 3:43 AM) MCHC [32.0-36.0 32.5 gm/dL gm/dL] (11/23/17 3:43 AM) RDW [11.5-14.5 %] 13.3 % (11/23/17 3:43 AM) Platelet [150-400 184 10*3/uL 10*3/uL] (11/23/17 3:43 AM) MPV [9.4-12.4 fL] 10.5 fL (11/23/17 3:43 AM) Immature 0.2 % Granulocytes (11/21/17 1:06 AM) [0.0-1.0 %] Neutrophils [51-75 63 % %] (11/21/17 1:06 AM) Lymphocytes [20-46 23 % %] (11/21/17 1:06 AM) Monocytes [4-11 %] 8 % (11/21/17 1:06 AM) Eosinophils [0-4 %] 6 % *HI* (11/21/17 1:06 AM) Basophils [0-2 %] 0 % (11/21/17 1:06 AM) Neutro Absolute 5.63 [1.90-7.00] (11/21/17 1:06 AM) Lymph Absolute 2.01 [0.80-3.30] (11/21/17 1:06 AM) [place] Absolute 0.72 [0.30-1.00] (11/21/17 1:06 AM) Eos Absolute 0.49 [0.00-0.50] (11/21/17 1:06 AM) Baso Absolute 0.03 [0.00-0.20] (11/21/17 1:06 AM) Nucleated RBC 0.0 /100 WBC Automated [0 /100 (11/21/17 1:06 AM) WBC] Coagulation Most recent to 1 oldest [Reference Range]: INR [0.9-1.2] 1.3 *HI* (11/21/17 11:53 AM) Chemistry Most recent to 1 oldest [Reference Range]: Sodium Lvl [136-144 139 mEq/L mEq/L] (11/23/17 3:43 AM) Potassium Lvl 3.9 mEq/L [3.6-5.1 mEq/L] (11/23/17 3:43 AM) Chloride [99-109 111 mEq/L mEq/L] *HI* (11/23/17 3:43 AM) CO2 [22-32 mEq/L] 22 mEq/L (11/23/17 3:43 AM) AGAP [3-20 mEq/L] 6 mEq/L (11/23/17 3:43 AM) BUN [4-20 mg/dL] 8 mg/dL (11/23/17 3:43 AM) Glucose Lvl [70-100 83 mg/dL mg/dL] (11/23/17 3:43 AM) Creatinine Lvl 0.54 mg/dL [0.44-1.03 mg/dL] (11/23/17 3:43 AM) eGFR [>60 mL/min] >60 mL/min 1 (11/23/17 3:43 AM) Calcium Lvl 8.3 mg/dL [8.6-10.0 mg/dL] *LOW* (11/23/17 3:43 AM) Albumin Lvl [3.5-4.8 3.4 gm/dL gm/dL] *LOW* (11/23/17 3:43 AM) Total Protein 5.5 gm/dL [6.1-7.9 gm/dL] *LOW* (11/23/17 3:43 AM) Globulin [1.9-4.3 2.1 gm/dL gm/dL] (11/23/17 3:43 AM) ALT [14-54 U/L] 24 U/L (11/23/17 3:43 AM) AST [15-41 U/L] 24 U/L (11/23/17 3:43 AM) Alk Phos [26-104 47 U/L U/L] (11/23/17 3:43 AM) Bili Total [0.2-1.2 0.6 mg/dL 2 mg/dL] (11/23/17 3:43 AM) U Beta hCG Ql Negative (11/21/17 12:00 AM) TSH with Reflex Free 1.17 T4 [0.35-4.94] (11/26/17 3:43 AM) 1Result Comment: Multiply eGFR results by 1.21 for race. 2Result Comment: Naproxen, specifically the metabolite O-desmethylnaproxen, may cause spurious elevation in Total Bilirubin levels. Therapeutic Drug Monitoring Most recent to 1 oldest [Reference Range]: Acetaminophen Lvl <10 ug/mL [10-30 ug/mL] (11/21/17 9:45 PM) Salicylate Lvl [0-30 <4 mg/dL 1 mg/dL] (11/21/17 1:06 AM) 1Result Comment: Sulfasalazine may cause false high salicylate levels and Sulfapyridine may cause false low salicylate levels. Toxicology Most recent to 1 oldest [Reference Range]: Ethanol Lvl Not Detected (11/21/17 1:06 AM) U Amphetamine Scrn Positive *ABN* (11/21/17 1:06 AM) U Cocaine Scrn Negative (11/21/17 1:06 AM) U Cannab Scrn Negative (11/21/17 1:06 AM) U Opiate Scrn Negative (11/21/17 1:06 AM) U PCP Scrn Negative (11/21/17 1:06 AM) U Benzodiazepine Negative Scrn (11/21/17 1:06 AM) U Barbiturate Scrn Negative (11/21/17 1:06 AM) Methadone Lvl Negative (11/21/17 1:06 AM) Tricyclics Negative 1 (11/21/17 1:06 AM) 1Result Comment: Cut-off concentrations: Amphetamines: 1000 [...] oldest [Reference Range]: UA Color Aliza *ABN* (11/21/17 1:06 AM) UA Appear Sl Cloudy (11/21/17 1:06 AM) UA pH [5.0-8.0] 5.0 (11/21/17 1:06 AM) UA Leuk Est Negative [Negative] (11/21/17 1:06 AM) UA Nitrite Negative [Negative] (11/21/17 1:06 AM) UA Protein Pos 2+ [Negative] *ABN* (11/21/17 1:06 AM) UA Glucose Negative [Negative] (11/21/17 1:06 AM) UA Ketones Trace [Negative] *ABN* (11/21/17 1:06 AM) UA Urobilinogen Negative [<1.0] (11/21/17 1:06 AM) UA Bili [Negative] Positive 1 *ABN* (11/21/17 1:06 AM) UA Blood [Negative] Negative (11/21/17 1:06 AM) UA Spec Grav >=1.045 [1.003-1.030] *ABN* (11/21/17 1:06 AM) Type Catheter (11/21/17 1:06 AM) UA WBC [0-4] 2-5 (11/21/17 1:06 AM) UA RBC [0-2] 0-2 (11/21/17 1:06 AM) Epithelial Cells 2-5 (11/21/17 1:06 AM) UA Hyal Cast [0-3] 7-12 *ABN* (11/21/17 1:06 AM) UA Mucous Present (11/21/17 1:06 AM) 1Result Comment: Positive bilirubin by dipstick. Please use clinical correlation to determine a positive bilirubin in urine. Immunizations Given and Recorded Vaccine Date Status [...]
--- OUTSIDE RECORDS SUMMARY | 2018-03-26 01:43 | XMS REPORT | Referral Summary ---
Author Author [facility] Organization [facility] Address Unknown Phone Unavailable Care Team Providers Care Hyperbaric Technologist Name Role Phone [facility] PCP Unavailable Encounter [facility] [id number] Date(s): 03/20/16 - 03/20/16 [facility] [address] [place], [place] [address] Discharge Diagnosis: Lower abdominal pain Discharge Disposition: 01-Home or Self Care Attending Physician: Iggy Skinner MD Admitting Physician: Iggy Skinner MD Vital Signs Most recent to 1 oldest [Reference Range]: Temperature Oral 36.7 degC [35.8-37.3 degC] (03/20/16 1:23 AM) Peripheral Pulse 68 bpm Rate [60-100 bpm] (03/20/16 9:25 AM) Heart Rate Monitored 68 bpm [60-100 bpm] (03/20/16 7:20 AM) Respiratory Rate 18 br/min [14-20 br/min] (03/20/16 9:25 AM) Blood Pressure 106/72 mmHg [90-140/60-90 mmHg] (03/20/16 9:25 AM) Mean Arterial 79 mmHg Pressure, Cuff (03/20/16 7:20 AM) SpO2 99 % (03/20/16 9:25 AM) Problem List Condition Effective Dates Status [...] Date: 03/20/16 Stop Date: 03/25/16 Status: Ordered Multivitamins 1 tabs, Oral, Daily, 0 Refill(s) Start Date: 03/08/16 Status: Ordered Results Hematology Most recent to 1 oldest [Reference Range]: WBC [4.8-10.8 6.2 10*3/uL 10*3/uL] (03/20/16 7:08 AM) RBC [4.00-5.20] 3.87 *LOW* (03/20/16 7:08 AM) Hgb [12.0-16.0 11.4 gm/dL gm/dL] *LOW* (03/20/16 7:08 AM) Hct [37.0-47.0 %] 35.7 % *LOW* (03/20/16 7:08 AM) MCV [82.0-99.0 fL] 92.2 fL (03/20/16 7:08 AM) MCH [27.0-32.0 pg] 29.5 pg (03/20/16 7:08 AM) MCHC [32.0-36.0 31.9 gm/dL gm/dL] *LOW* (03/20/16 7:08 AM) RDW [11.5-14.5 %] 12.9 % (03/20/16 7:08 AM) Platelet [150-400 282 10*3/uL 10*3/uL] (03/20/16 7:08 AM) MPV [9.4-12.4 fL] 10.2 fL (03/20/16 7:08 AM) Immature 0.2 % Granulocytes (03/20/16 7:08 AM) [0.0-1.0 %] Neutrophils [51-75 34 % %] *LOW* (03/20/16 7:08 AM) Lymphocytes [20-46 46 % %] (03/20/16 7:08 AM) Monocytes [4-11 %] 6 % (03/20/16 7:08 AM) Eosinophils [0-4 %] 13 % *HI* (03/20/16 7:08 AM) Basophils [0-2 %] 1 % (03/20/16 7:08 AM) Neutro Absolute 2.14 10*3 [1.90-7.00 10*3] (03/20/16 7:08 AM) Lymph Absolute 2.89 10*3 [0.80-3.30 10*3] (03/20/16 7:08 AM) [place] Absolute 0.37 10*3 [0.30-1.00 10*3] (03/20/16 7:08 AM) Eos Absolute 0.78 10*3 [0.00-0.50 10*3] *HI* (03/20/16 7:08 AM) Baso Absolute 0.04 10*3 [0.00-0.20 10*3] (03/20/16 7:08 AM) Nucleated RBC 0.0 /100 WBC Automated [0 /100 (03/20/16 7:08 AM) WBC] Chemistry Most recent to 1 oldest [Reference Range]: Sodium Lvl [136-144 137 mEq/L mEq/L] (03/20/16 7:08 AM) Potassium Lvl 3.4 mEq/L [3.6-5.1 mEq/L] *LOW* (03/20/16 7:08 AM) Chloride [99-109 103 mEq/L mEq/L] (03/20/16 7:08 AM) CO2 [22-32 mEq/L] 23 mEq/L (03/20/16 7:08 AM) AGAP [3-20] 11 (03/20/16 7:08 AM) BUN [4-20 mg/dL] 5 mg/dL (03/20/16 7:08 AM) Glucose Lvl [70-100 82 mg/dL mg/dL] (03/20/16 7:08 AM) Creatinine Lvl 0.70 mg/dL [0.44-1.03 mg/dL] (03/20/16 7:08 AM) eGFR [>60] >60 1 (03/20/16 7:08 AM) Calcium Lvl 8.8 mg/dL [8.6-10.0 mg/dL] (03/20/16 7:08 AM) Albumin Lvl [3.5-4.8 3.9 gm/dL gm/dL] (03/20/16 7:08 AM) Total Protein 7.0 gm/dL [6.1-7.9 gm/dL] (03/20/16 7:08 AM) ALT [14-54 U/L] 11 U/L *LOW* (03/20/16 7:08 AM) AST [15-41 U/L] 14 U/L *LOW* (03/20/16 7:08 AM) Alk Phos [26-104 58 U/L U/L] (03/20/16 7:08 AM) Bili Total [0.2-1.2 0.3 mg/dL 2 mg/dL] (03/20/16 7:08 AM) Bili Direct [0.0-0.2 0.1 mg/dL mg/dL] (03/20/16 7:08 AM) Bili Indirect 0.2 mg/dL [0.0-1.0 mg/dL] (03/20/16 7:08 AM) Screen, Positive Urine NPT *ABN* (03/20/16 6:38 AM) Beta hCG Qnt 45 mIU/mL 3 (03/20/16 7:08 AM) 1Result Comment: Multiply eGFR results by 1.21 for race. 2Result Comment: Naproxen, specifically the metabolite O-desmethylnaproxen, may cause spurious elevation in Total Bilirubin levels. 3Result Comment: Normal Ranges for Quantitative Beta-HCG are [...] 1 oldest [Reference Range]: UA Color Straw (03/20/16 5:41 AM) UA Appear Clear (03/20/16 5:41 AM) UA pH [5.0-8.0] 6.0 (03/20/16 5:41 AM) UA Leuk Est Trace [Negative] *ABN* (03/20/16 5:41 AM) UA Nitrite Negative [Negative] (03/20/16 5:41 AM) UA Protein Negative [Negative] (03/20/16 5:41 AM) UA Glucose Negative [Negative] (03/20/16 5:41 AM) UA Ketones Negative [Negative] (03/20/16 5:41 AM) UA Urobilinogen Negative [<1.0] (03/20/16 5:41 AM) UA Bili [Negative] Negative (03/20/16 5:41 AM) UA Blood [Negative] Pos 2+ *ABN* (03/20/16 5:41 AM) UA Spec Grav 1.005 [1.003-1.030] (03/20/16 5:41 AM) Type Clean Catch (03/20/16 5:41 AM) UA WBC [0-4] 2-5 (03/20/16 5:41 AM) UA RBC [0-2] 2-5 (03/20/16 5:41 AM) Epithelial Cells 0-2 (03/20/16 5:41 AM) UA Bacteria Rare (03/20/16 5:41 AM) Blood Bank Results Most recent to 1 oldest [Reference Range]: Rh Type POS (03/20/16 7:08 AM) Microbiology Reports TEST: Affirm Vaginitis Panel STATUS: Auth (Verified) BODY SITE: SOURCE: Cervix/Vaginal COLLECTED DATE/TIME: 03/20/16 5:41 AM Affirm Vaginitis Panel Negative for Trichomonas vaginalis Positive for Gardnerella vaginalis Negative for Jasmina species Immunizations No data available for this section Procedures No data available for this section Social History Social History Type Response Smoking Status Current every day smoker; Type: Cigarettes Assessment and Plan No data available for this section
--- OUTSIDE RECORDS SUMMARY | 2018-03-26 01:44 | XMS REPORT | Referral Summary ---
Author Author [facility] Organization [facility] Address Unknown Phone Unavailable Care Team Providers Care Contact Agent Name Role Phone [facility] PCP Unavailable Encounter [facility] [id number] Date(s): 05/24/17 - 05/24/17 [facility] [address] [place], [place] [address] Discharge Diagnosis: Viral illness Discharge Disposition: 01-Home or Self Care Attending Physician: Joey Zarate DO Admitting Physician: Joey Zarate DO Vital Signs Most recent to 1 oldest [Reference Range]: Temperature Oral 36.3 degC [35.8-37.3 degC] (05/24/17 12:04 PM) Peripheral Pulse 82 bpm Rate [60-100 bpm] (05/24/17 12:04 PM) Respiratory Rate 18 br/min [14-20 br/min] (05/24/17 12:04 PM) Blood Pressure 104/67 mmHg [90-140/60-90 mmHg] (05/24/17 12:04 PM) SpO2 99 % (05/24/17 12:04 PM) Problem List Condition Effective Dates Status [...] Range]: Sodium Venous 140 mEq/L [136-144 mEq/L] (05/24/17 10:22 AM) Potassium Venous 3.9 mEq/L 1 [3.6-5.1 mEq/L] (05/24/17 10:22 AM) Calcium Ionized 1.13 mmol/L Venous [1.19-1.41 *LOW* mmol/L] (05/24/17 10:22 AM) Total CO2 Venous 21 mEq/L [25-29 mEq/L] *LOW* (05/24/17 10:22 AM) HGB Venous NPT 13.9 gm/dL [12.0-16.0 gm/dL] (05/24/17 10:22 AM) HCT Venous 41.0 % [37.0-47.0 %] (05/24/17 10:22 AM) Glucose Venous 80 mg/dL [70-100 mg/dL] (05/24/17 10:22 AM) BUN Venous [4-20] 12 (05/24/17 10:22 AM) Creatinine Venous 0.7 mg/dL [0.4-1.0 mg/dL] (05/24/17 10:22 AM) Venous CL [99-109 106 mEq/L mEq/L] (05/24/17 10:22 AM) Anion Gap, Yogi [3-20 13 mEq/L mEq/L] (05/24/17 10:22 AM) U Beta hCG Ql Negative (05/24/17 9:55 AM) 1Result Comment: This test was performed on a whole blood specimen. The presence or absence of hemolysis cannot be assessed. Hemolysis can falsely elevate potassium levels. Normals are for venous specimens only. Urinalysis Most recent to 1 oldest [Reference Range]: UA Color Yellow (05/24/17 9:43 AM) UA Appear Clear (05/24/17 9:43 AM) UA pH [5.0-8.0] 5.0 (05/24/17 9:43 AM) UA Leuk Est Negative [Negative] (05/24/17 9:43 AM) UA Nitrite Negative [Negative] (05/24/17 9:43 AM) UA Protein Negative [Negative] (05/24/17 9:43 AM) UA Glucose Negative [Negative] (05/24/17 9:43 AM) UA Ketones Negative [Negative] (05/24/17 9:43 AM) UA Urobilinogen Negative [<1.0] (05/24/17 9:43 AM) UA Bili [Negative] Negative (05/24/17 9:43 AM) UA Blood [Negative] Negative (05/24/17 9:43 AM) UA Spec Grav 1.015 [1.003-1.030] (05/24/17 9:43 AM) Type Clean Catch (05/24/17 9:43 AM) Immunizations Given and Recorded Vaccine Date [...]
[2018-03-26] MEDS ORDERED: metroNIDAZOLE 500 MG (FLAGYL) TAB PO ONE (01:45)
--- OUTSIDE RECORDS SUMMARY | 2018-03-26 01:47 | XMS REPORT | Continuity of Care Document ---
Author Author [facility] Organization [facility] Address Unknown Phone Unavailable Allergies Active Description Code Type Severity Reaction Onset Reported/Identified Relationship to Patient Clinical Status Yes Depakote ER NKMA N/A N/A 12/22/2014 Yes penicillin NKMA N/A N/A 12/22/2014 Yes Depakote - Oral Medication MED N/A N/A 12/28/2014 Yes Penicillins - CLASS Class MED N /A N/A 12/28/2014 Yes Depakote ER NKMA Medium [id number] 05/02/2015 Yes penicillin NKMA Severe 784.2 05/02/2015 Yes No Known Allergies No Known Allergies Drug Allergy Unknown N/A 2015 Yes Latex 403 N/A N/A 02/28/2016 Yes divalproex sodium divalproex sodium Drug Allergy Mild VOMITING 06/11/2017 Yes Penicillins Penicillins Drug Allergy Unknown THROAT SWELLING 06/11/2017 Yes latex latex Drug Allergy Unknown HIVES 10/17/2017 Medications Medication Packaging Start Date Stop Date Route Dosage Sig diphenhydrAMINE(Benadryl) 1 tabs 12/22/2014 Oral 25 mg 25 mg, Oral, Once QUEtiapine(SEROquel) 12/22/2014 03/08/2016 Oral Oral divalproex sodium(Depakote) 12/2202/18/2016 Oral Oral, TID doxepin(doxepin 3 mg oral tablet) tabs 12/22/2014 02/18/2016 Oral mg tabs, Oral, Bedtime (once a day) levothyroxine(levothyroxine) 07/201503/08/2016 Daily hydrochlorothiazide(hydrochlorothiazide) 12/22/2014 02/18/2016 Oral Oral, Daily calcium citrate(calcium citrate) 12/22/2014 02/18/2016 Oral Oral, BID venlafaxine(Effexor) 05/02/2015 Oral Oral, 0 Refill( s) risperiDONE(RisperDAL) 201402/18/2016 Oral Oral, BID, 0 Refill(s) traZODone(traZODone) 05/02/2015 03/08/2016 Oral Oral, 0 Refill(s) azithromycin(Zithromax Z-Sandip 250 mg oral tablet) 1 packets 05/02/2015 02/18/2016 Oral 1 packets, Oral, Once, as directed on package labeling, 6 tabs, 0 Refill(s) albuterol(albuterol CFC free 90 mcg/inh inhalation aerosol) 2 puffs 05/02/2015 03/08/2016 Inhalation 2 puffs, Inhalation, q4hr, use with spacer chamber, PRN: as needed for wheezing, 18 g, 0 Refill(s) TraZODone HCl 150 MG Oral Tablet 05/12/2015 06/25/2015 ORAL 150MG TAKE 1 TABLET AT BEDTIME. ROPINIRole HCl 0.25 MG Oral Tablet 05/12/2015 06/25/2015 ORAL 0.25MG Take two tabs HS BusPIRone HCl 10 MG Oral Tablet 05/12/2015 06/25/2015 ORAL 10MG TAKE 2 TABLETS 3 TIMES DAILY. Haloperidol 5 MG Oral Tablet 06/25/2015 ORAL 5MG TAKE 1/2 TABLET BY MOUTH TWICE DAILY. ondansetron(Zofran 4 mg oral tablet) 1 tabs 06/10/2015 06/13/2015 Oral 4 mg 4 mg=1 tabs, Oral, q4hr, PRN: Nausea or Vomiting, 20 tabs, 0 Refill(s) TraZODone HCl 150 MG Oral Tablet 06/24/2015 07/29/2015 ORAL 150MG TAKE 1 TABLET AT BEDTIME. ROPINIRole HCl 0.25 MG Oral Tablet 06/24/2015 07/29/2015 ORAL 0.25MG Take two tabs HS Haloperidol 5 MG Oral Tablet 07/201507/29/2015 ORAL 5MG TAKE 1 TABLET TWICE DAILY. BusPIRone HCl 10 MG Oral Tablet 06/24/2015 07/29/2015 ORAL 10MG TAKE 2 TABLETS 3 TIMES DAILY. TraZODone HCl 150 MG Oral Tablet 07/28/2015 09/27/2015 ORAL 150MG TAKE 1/2 TO 1 TABLET AT BEDTIME. BuPROPion HCl ER (XL) 300 MG Oral Tablet Extended Release 24 Hour 07/28/2015 09/27/2015 ORAL 300MG TAKE 1 TABLET EVERY MORNING. ROPINIRole HCl 0.25 MG Oral Tablet 07/28/2015 09/27/2015 ORAL 0.25MG Take two tabs HS Haloperidol 5 MG Oral Tablet 09/27/2015 ORAL 5MG TAKE 1 TABLET TWICE DAILY. BusPIRone HCl 10 MG Oral Tablet 07/28/2015 09/27/2015 ORAL 10MG TAKE 2 TABLETS 3 TIMES DAILY. TraZODone HCl 50 MG Oral Tablet 09/30/2015 12/30/2015 ORAL 50MG Take 1 1/2 tablets HS and 1/2 tablet BID PRN for anxiety BuPROPion HCl ER (XL) 300 MG Oral Tablet Extended Release 24 Hour 09/30/2015 12/16/2015 ORAL 300MG TAKE 1 TABLET EVERY MORNING. ROPINIRole HCl 0.25 MG Oral Tablet 09/30/2015 12/16/2015 ORAL 0.25MG Take two tabs HS Haloperidol 5 MG Oral Tablet 12/16/2015 ORAL 5MG TAKE 1 TABLET TWICE DAILY. TraZODone HCl 150 MG Oral Tablet 10/20/2015 12/16/2015 ORAL 150MG TAKE 1/2 TABLET AT BEDTIME. Haloperidol 0.5 MG Oral Tablet 10/20/2015 12/20/2015 ORAL 0.5MG Take one tablet TID PRN for anxiety.[id number] 5 mg BID dose predniSONE(predniSONE) 1 tabs 10/2310/23/2015 Oral 50 mg 50 mg=1 tabs, Oral, Once promethazine-codeine(promethazine-codeine 6.25 mg-10 mg/5 mL oral syrup) 5 mL 10/23/2015 10/24/2015 Oral 5 mL, Oral, q6hr, PRN: as needed for cough, 60 mL, 0 Refill(s) albuterol(ProAir HFA 90 mcg/inh inhalation aerosol) 1 puffs 10/23/2015 03/08/2016 Inhalation 1 puffs, Inhalation, QID, PRN: as needed for wheezing, 8.5 g, 0 Refill(s) predniSONE(predniSONE 20 mg oral tablet) 2 tabs 10/23/2015 10/28/2015 Oral 40 mg 40 mg=2 tabs, Oral, Daily, for 5 days, start tomorrow , 10 tabs, 0 Refill(s) albuterol(albuterol 5 mg/mL (0.5%) inhalation solution) 1.5 mL 10/23/2015 10/23/2015 NEB 7.5 mg 7.5 mg=1.5 mL, NEB, Once albuterol(albuterol 5 mg/mL (0.5%) inhalation solution) 1.5 mL 10/27/2015 10/27/2015 NEB 7.5 mg 7.5 mg=1.5 mL, NEB, Once predniSONE(predniSONE 20 mg oral tablet) 2 tabs 10/27/2015 10/30/2015 Oral 40 mg 40 mg=2 tabs, Oral, Daily, for 3 days, 6 tabs, 0 Refill(s) predniSONE(predniSONE) 1 tabs 11/2511/25/2015 Oral 50 mg 50 mg=1 tabs, Oral, Once ibuprofen(ibuprofen) 1 tabs 201511/25/2015 Oral 800 mg 800 mg=1 tabs, Oral, Once predniSONE(predniSONE 50 mg oral tablet) 1 tabs 11/25/2015 11/30/2015 Oral 50 mg 50 mg=1 tabs, Oral, Daily, for 5 days, 5 tabs, 0 Refill(s) ibuprofen(ibuprofen 800 mg oral tablet) 1 tabs 11/25/2015 03/08/2016 Oral 800 mg 800 mg=1 tabs, Oral, q8hr, for 7 days, PRN: as needed for pain, 21 tabs, 0 Refill(s) doxycycline(doxycycline hyclate 100 mg oral capsule) 1 caps 11/25/2015 12/05/2015 Oral 100 mg 100 mg=1 caps, Oral, BID, for 10 days, 20 caps, 0 Refill(s) BuPROPion HCl ER (XL) 150 MG Oral Tablet Extended Release 24 Hour UD 12/15/2015 03/15/2016 ORAL 150MG Take one tablet Am with 300 mg dose TraZODone HCl 150 MG Oral Tablet UD 12/15/2015 03/15/2016 ORAL 150MG TAKE 1/2 TABLET AT BEDTIME. BuPROPion HCl ER (XL) 300 MG Oral Tablet Extended Release 24 Hour UD 12/15/2015 03/15/2016 ORAL 300MG TAKE 1 TABLET EVERY MORNING. ROPINIRole HCl 0.25 MG Oral Tablet UD 12/15/2015 03/15/2016 ORAL 0.25MG Take two tabs HS Haloperidol 5 MG Oral Tablet UD 11/201503/15/2016 ORAL 5MG TAKE 1 TABLET TWICE DAILY. [place] Carbonate 300 MG Oral Capsule UD 01/10/2016 03/11/2016 ORAL 300MG TAKE 1 CAPSULE TWICE DAILY. albuterol(albuterol 5 mg/mL (0.5%) inhalation solution) 1.5 mL 01/25/2016 01/25/2016 NEB 7.5 mg 7.5 mg=1.5 mL, NEB, Once predniSONE(predniSONE 20 mg oral tablet) 1 tabs 01/25/2016 01/30/2016 Oral 20 mg 20 mg=1 tabs, Oral, Daily, for 5 days, 5 tabs, 0 Refill(s) loratadine-pseudoephedrine(Claritin-D 24 Hour oral tablet, extended release) 1 tabs 01/25/2016 02/08/2016 Oral 1 tabs, Oral, Daily, for 14 days, 14 tabs, 0 Refill(s) buPROPion(Wellbutrin) 02/18/2016 03/08/2016 Oral Oral , 0 Refill(s) lithium(lithium) 02/18/2016 03/08/2016 Oral Oral, 0 Refill(s) ondansetron(ondansetron) 2 mL 02/1702/18/2016 IV Push 4 mg 4 mg=2 mL, IV Push, Once ondansetron(Zofran ODT 4 mg oral tablet, disintegrating) 1 tabs 02/18/2016 02/21/2016 Oral 4 mg as needed for nausea/vomiting, X 3 days , # 10 tabs, 0 Refill(s) 4 mg=1 tabs, Oral, q4hr, for 3 days, PRN: Nausea or Vomiting as needed for nausea/vomiting, 10 tabs, 0 Refill(s) nitrofurantoin(Macrobid 100 mg oral capsule) 1 caps 02/18/2016 02/25/2016 Oral 100 mg 100 mg=1 caps, Oral, BID, for 7 days, 14 caps, 0 Refill(s) oxyCODONE-acetaminophen(Percocet 5/325 oral tablet) 03/01/2016 03/08/2016 Oral 1-2, Oral, q4hr, for 7 days, PRN: as needed for pain, 12 tabs, 0 Refill(s) oxyCODONE-acetaminophen(Percocet 5/325 oral tablet) 1 tabs 03/01/2016 03/01/2016 Oral 1 tabs, Oral, Once fentaNYL(Sublimaze) 1 mL 201503/07/2016 IV Push 50 mcg 50 mcg=1 mL, IV Push, q30min, PRN: Pain morphine(morphine) 1 mL 03/07/2016 03/07/2016 IV Push 2 mg 2 mg=1 mL, IV Push, Once ondansetron(Zofran) 2 mL 201503/07/2016 IV Push 4 mg 4 mg=2 mL, IV Push, Once diphenhydrAMINE(Benadryl) 0.5 mL 03/07/2016 IV Push 25 mg 25 mg=0.5 mL, IV Push, Once misoprostol(Cytotec) 3 tabs 201503/08/2016 Oral 600 mcg 600 mcg=3 tabs, Oral, Once Sodium Chloride 0.9%(Sodium Chloride 0.9% Bolus) 1,000 mL 03/08/2016 03/08/2016 Bolus IV 1,000 mL, Bolus IV, Once morphine(morphine) 0.5 mL 201503/08/2016 IV Push 1 mg 1 mg=0.5 mL, IV Push, q2hr, PRN: Pain Severe (7-10) ondansetron(Zofran) 2 mL 201503/08/2016 IV Push 4 mg 4 mg=2 mL, IV Push, q6hr, PRN: Nausea HYDROcodone-acetaminophen([place] 5 mg-325 mg oral tablet) 1 tabs 03/08/2016 03/08/2016 Oral 1 tabs, Oral, q6hr, PRN: Pain Moderate (4-6 ) albuterol(albuterol 5 mg/mL (0.5%) inhalation solution) 0.5 mL 03/08/2016 03/08/2016 NEB 2.5 mg 2.5 mg=0.5 mL, NEB, q2hr (scheduled), PRN : Other (See Comment) ipratropium(ipratropium 500 mcg/2.5 mL inhalation solution) 2.5 mL 03/08/2016 03/08/2016 NEB 0.5 mg 0.5 mg=2.5 mL, NEB, q2hr (scheduled ), PRN: Other (See Comment) fluticasone-salmeterol(Advair HFA 45 mcg-21 mcg/inh inhalation aerosol) 2 puffs 03/08/20162015 Inhalation 2 puffs, Inhalation, BID HYDROmorphone(Dilaudid) 0.5 mL 03/201603/20/2016 IV Push 0.5 mg 0.5 mg=0.5 mL, IV Push, Once hyoscyamine(Levsin) 1 mL 201503/20/2016 Oral 0.125 mg 0.125 mg=1 mL, Oral, Once ibuprofen(ibuprofen 800 mg oral tablet) 1 tabs 03/20/2016 03/25/2016 Oral 800 mg 800 mg=1 tabs, Oral, TID, for 5 days, PRN: as needed for pain, 15 tabs, 0 Refill(s) ketorolac(Toradol) 1 mL 03/20/2016 03/20/2016 IV Push 30 mg 30 mg=1 mL, IV Push, Once TraZODone HCl 150 MG Oral Tablet 03/30/2016 06/01/2016 ORAL 150MG TAKE 1/2 TABLET AT BEDTIME. [place] Carbonate 300 MG Oral Capsule 03/30/2016 05/30/2016 ORAL 300MG TAKE 1 CAPSULE TWICE DAILY. ROPINIRole HCl 0.25 MG Oral Tablet 03/30/2016 06/01/2016 ORAL 0.25MG Take two tabs HS BuPROPion HCl ER (XL) 300 MG Oral Tablet Extended Release 24 Hour 03/30/2016 06/01/2016 ORAL 300MG TAKE 1 TABLET EVERY MORNING. BuPROPion HCl ER (XL) 150 MG Oral Tablet Extended Release 24 Hour 03/30/2016 06/01/2016 ORAL 150MG Take one tablet Am with 300 mg dose Haloperidol 10 MG Oral Tablet 06/01/2016 ORAL 10MG TAKE 1 TABLET AT BEDTIME. Venlafaxine HCl ER 150 MG Oral Capsule Extended Release 24 Hour 03/30/2016 05/30/2016 ORAL 150MG TAKE 1 CAPSULE DAILY IN THE MORNING. Venlafaxine HCl ER 75 MG Oral Capsule Extended Release 24 Hour 03/30/2016 04/14/2016 ORAL 75MG Take one capsule AM for two weeks then increase to 150 mg dose albuterol(albuterol 5 mg/mL (0.5%) inhalation solution) 1.5 mL 05/28/2016 05/28/2016 NEB 7.5 mg 7.5 mg=1.5 mL, NEB, Once predniSONE(predniSONE) 2 tabs 05/2805/28/2016 Oral 40 mg 40 mg=2 tabs, Oral, Once predniSONE(predniSONE 20 mg oral tablet) 2 tabs 05/28/2016 06/01/2016 Oral 40 mg 40 mg=2 tabs, Oral, Daily, for 4 days, start tomorrow , 8 tabs, 0 Refill(s) TraZODone HCl 150 MG Oral Tablet 05/31/2016 08/01/2016 ORAL 150MG TAKE 1/2 TABLET AT BEDTIME. [place] Carbonate 300 MG Oral Capsule 05/31/2016 07/01/2016 ORAL 300MG TAKE 1 CAPSULE TWICE DAILY. ROPINIRole HCl 0.25 MG Oral Tablet 05/31/2016 08/01/2016 ORAL 0.25MG Take two tabs HS BuPROPion HCl ER (XL) 300 MG Oral Tablet Extended Release 24 Hour 05/31/2016 08/01/2016 ORAL 300MG TAKE 1 TABLET EVERY MORNING. BuPROPion HCl ER (XL) 150 MG Oral Tablet Extended Release 24 Hour 05/31/2016 08/01/2016 ORAL 150MG Take one tablet Am with 300 mg dose Haloperidol 10 MG Oral Tablet 08/01/2016 ORAL 10MG TAKE 1 TABLET AT BEDTIME. Venlafaxine HCl ER 150 MG Oral Capsule Extended Release 24 Hour 05/31/2016 08/01/2016 ORAL 150MG TAKE 1 CAPSULE DAILY IN THE MORNING. TraZODone HCl 150 MG Oral Tablet 07/31/2016 10/30/2016 ORAL 150MG TAKE 1/2 TABLET AT BEDTIME. [place] Carbonate 300 MG Oral Capsule 07/31/2016 10/30/2016 ORAL 300MG TAKE 1 CAPSULE TWICE DAILY. ROPINIRole HCl 0.25 MG Oral Tablet 07/31/2016 10/30/2016 ORAL 0.25MG Take two tabs HS BuPROPion HCl ER (XL) 300 MG Oral Tablet Extended Release 24 Hour UD 07/31/2016 10/30/2016 ORAL 300MG TAKE 1 TABLET EVERY MORNING. BuPROPion HCl ER (XL) 150 MG Oral Tablet Extended Release 24 Hour UD 07/31/2016 10/30/2016 ORAL 150MG Take one tablet Am with 300 mg dose Haloperidol 10 MG Oral Tablet UD 10/30/2016 ORAL 10MG TAKE 1 TABLET AT BEDTIME. Venlafaxine HCl ER 150 MG Oral Capsule Extended Release 24 Hour UD 07/31/2016 10/30/2016 ORAL 150MG TAKE 1 CAPSULE DAILY IN THE MORNING. morphine(morphine 4 mg/mL syringe 1 mL) 1 mL 08/16/2016 08/16/2016 IV Push 4 mg 4 mg=1 mL, IV Push, Once ondansetron(Zofran) 2 mL 201508/16/2016 IV Push 4 mg 4 mg=2 mL, IV Push, Once ipratropium-albuterol(DuoNeb 0.5 mg-2.5 mg/3 mL inhalation solution ) 3 mL 08/16/2016 11/22/2017 NEB 3 mL, NEB, QID, PRN: as needed for shortness of breath or wheezing, 0 Refill(s) budesonide-formoterol(Symbicort 160 mcg-4.5 mcg/inh inhalation aerosol) 2 puffs 08/16/20162017 Inhalation 2 puffs, Inhalation, BID, 0 Refill(s) ondansetron(Zofran) 2 mL 201508/17/2016 IV Push 4 mg 4 mg=2 mL, IV Push, q6hr, PRN: Nausea or Vomiting HYDROmorphone(HYDROmorphone) 1 mL 08/16/2016 08/17/2016 IV Push 1 mg 1 mg=1 mL, IV Push, q2hr, PRN: Pain Severe (7-10) Sodium Chloride 0.9%(sodium chloride 0.9% 1,000 mL) 1,000 mL 08/16/2016 08/17/2016 IV 100 mL/hr, IV pneumococcal 23-polyvalent vaccine(pneumococcal 23-polyvalent vaccine) 0.5 mL 08/16/20162015 IntraMuscular 0.5 mL, IntraMuscular, As Indicated budesonide-formoterol(Symbicort 160 mcg-4.5 mcg/inh inhalation aerosol) 2 puffs 08/16/20162015 Inhalation 2 puffs, Inhalation, BID famotidine(Pepcid) 2 mL 08/16/2016 08/17/2016 IV Push 20 mg 20 mg=2 mL, IV Push, Daily oxyCODONE-acetaminophen(Percocet 5/325 oral tablet) 08/16/2016 08/17/2016 Oral 1-2 tabs, Oral, q4hr, PRN: Pain Moderate (4-6) fluticasone-salmeterol(Advair HFA 115 mcg-21 mcg/inh inhalation aerosol) 2 puffs 08/16/20162015 Inhalation 2 puffs, Inhalation, BID ipratropium(ipratropium) 2.5 mL 11/201508/17/2016 NEB 0.5 mg 0.5 mg=2.5 mL, NEB, QID, PRN: Bronchospasms albuterol(albuterol 5 mg/mL (0.5%) inhalation solution) 0.5 mL 08/16/2016 08/16/2016 NEB 2.5 mg 2.5 mg=0.5 mL, NEB, QID, PRN: Bronchospasms docusate(Colace) 1 caps 08/16/2016 08/17/2016 Oral 100 mg 100 mg=1 caps, Oral, BID docusate(Colace 100 mg oral capsule) 1 caps 08/16/2016 02/09/2017 Oral 100 mg 100 mg=1 caps, Oral, BID, 0 Refill(s) oxyCODONE-acetaminophen(Percocet 5/325 oral tablet) 08/16/2016 08/23/2016 Oral 1-2 tabs, Oral, q4hr, PRN: Pain Moderate (4-6), 40 tabs, 0 Refill(s) fluticasone-salmeterol(Advair HFA 115 mcg-21 mcg/inh inhalation aerosol) 2 puffs 08/16/20162015 Inhalation 2 puffs, Inhalation, BID morphine(morphine) 3 mL 08/17/2016 08/17/2016 IV Push 6 mg 6 mg=3 mL, IV Push, Once ondansetron(Zofran) 2 mL 201508/17/2016 IV Push 4 mg 4 mg=2 mL, IV Push, q30min, PRN: Nausea or Vomiting buPROPion(Wellbutrin) 09/30/2016 Oral Oral, 0 Refill (s) haloperidol(Haldol) 09/30/2016 0 Refill(s) oxyCODONE-acetaminophen(Percocet 5/325 oral tablet) 1 tabs 09/30/2016 10/07/2016 Oral 1 tabs, Oral, q6hr oxycodone-acetaminophen(Percocet 5/325 oral tablet) 1 tabs 09/30/2016 02/09/2017 Oral 1 tabs, Oral, q4hr, PRN: as needed for pain, 12 tabs, 0 Refill(s) ketorolac(Toradol) 2 mL 02/09/2017 02/09/2017 IntraMuscular 60 mg 60 mg=2 mL, IntraMuscular, Once cefTRIAXone(cefTRIAXone IntraMuscular injection) 0.72 mL 02/09/2017 02/09/2017 IntraMuscular 250 mg 250 mg=0.72 mL, IntraMuscular, Once doxycycline(doxycycline hyclate 100 mg oral capsule) 1 caps 02/09/2017 02/23/2017 Oral 100 mg 100 mg=1 caps, Oral, BID, for 14 days, 28 caps, 0 Refill(s) lidocaine(lidocaine 1% injectable solution) 2 mL 02/09/2017 02/09/2017 IntraDermal 2 mL, IntraDermal, Once ibuprofen(ibuprofen 800 mg oral tablet) 1 tabs 02/09/2017 Oral 800 mg 800 mg=1 tabs, Oral, q8hr, 30 tabs, 0 Refill(s) Latuda 60 MG Oral Tablet UD 201607/03/2017 ORAL 60MG TAKE 1 TABLET DAILY AT DINNER. lurasidone(Latuda) 05/24/2017 Oral Oral, Daily, 0 Refill(s) metoclopramide(Reglan) 2 mL 201605/24/2017 IntraMuscular 10 mg 10 mg=2 mL, IntraMuscular, Once ketorolac(Toradol) 1 mL 05/24/2017 05/24/2017 IV Push 30 mg 30 mg=1 mL, IV Push, Once diphenhydrAMINE(Benadryl) 0.5 mL 05/24/2017 IV Push 25 mg 25 mg=0.5 mL, IV Push, Once ondansetron(Zofran ODT 4 mg oral tablet, disintegrating) 1 tabs 05/24/2017 Oral 4 mg 4 mg=1 tabs, Oral, TID, 10 tabs, 0 Refill(s) ondansetron(Zofran) 2 mL 201608/03/2017 IV Push 4 mg 4 mg=2 mL, IV Push, Once ketorolac(Toradol) 1 mL 08/03/2017 08/03/2017 IV Push 30 mg 30 mg=1 mL, IV Push, Once HYDROmorphone(Dilaudid) 0.2 mL 08/03/2017 IV Push 0.2 mg 0.2 mg=0.2 mL, IV Push, Once clindamycin(clindamycin) 4 mL 08/0308/03/2017 IV Piggyback 600 mg 600 mg=4 mL, 108 mL/hr, IV Piggyback, Once tamsulosin(Flomax) 1 caps 201608/03/2017 Oral 0.4 mg 0.4 mg=1 caps, Oral, Once ciprofloxacin(Cipro 500 mg oral tablet) 1 tabs 08/03/2017 08/13/2017 Oral 500 mg 500 mg=1 tabs, Oral, q12hr, for 10 days, 20 tabs, 0 Refill(s) phenazopyridine(phenazopyridine 100 mg oral tablet) 1 tabs 08/03/2017 08/06/2017 Oral 100 mg 100 mg=1 tabs, Oral, TID, for 3 days, 9 tabs , 0 Refill(s) LORazepam(Ativan) 1 mL 08/04/2017 08/04/2017 IntraMuscular 2 mg 2 mg=1 mL, IntraMuscular, Once haloperidol(Haldol) 2 mL 201608/04/2017 IntraMuscular 10 mg 10 mg=2 mL, IntraMuscular, Once LORazepam(Ativan) 1 mL 08/04/2017 08/04/2017 IV Push 2 mg 2 mg=1 mL, IV Push, Once cefTRIAXone(Rocephin IntraMuscular injection) 0.72 mL 08/05/2017 08/05/2017 IntraMuscular 250 mg 250 mg=0.72 mL, IntraMuscular, Once metroNIDAZOLE(Flagyl) 4 tabs 201608/05/2017 Oral 2 g 2 g=4 tabs, Oral, Once azithromycin(azithromycin) 4 tabs 08/05/2017 08/05/2017 Oral 1,000 mg 1,000 mg=4 tabs, Oral, Once LORazepam(Ativan) 1 mL 08/05/2017 08/05/2017 IntraMuscular 2 mg 2 mg=1 mL, IntraMuscular, Once ziprasidone(Geodon) 0.5 mL 201608/05/2017 IntraMuscular 10 mg 10 mg=0.5 mL, IntraMuscular, Once Latuda 60 MG Oral Tablet UD 201611/26/2017 ORAL 60MG TAKE 1 TABLET DAILY AT DINNER. thiamine(thiamine) 1 mL 11/21/2017 11/21/2017 IV Push 100 mg 100 mg=1 mL, IV Push, Once acetylcysteine(Acetadote + Dextrose 5% in Water 200 mL) 75 mL 11/21/2017 11/21/2017 IV Piggyback 15,000 mg 15,000 mg=75 mL, 275 mL/hr , IV Piggyback, Once acetylcysteine(Acetadote) 201711/21/2017 IV Piggyback 9,750 mg 9,750 mg, IV Piggyback, Once ocular lubricant(Lacri-Lube S.O.P. ophthalmic ointment) 1 akiko 11/21/2017 11/28/2017 Eye- Both 3.5 g 3.5 g=1 akiko, Eye-Both, q2hr, PRN: Dry Eyes ocular lubricant(ocular lubricant ophthalmic solution) 1 drops 11/21/2017 11/28/2017 Eye- Both 1 drops, Eye-Both, q1hr, PRN: Dry Eyes ondansetron(Zofran) 2 mL 201711/28/2017 IV Push 4 mg 4 mg=2 mL, IV Push, q6hr, PRN: Nausea polyethylene glycol 3350(MiraLax) 1 packets 11/21/2017 11/28/2017 Oral 17 g 17 g=1 packets, Oral, Daily, PRN: Constipation docusate-senna(Senokot S 50 mg-8.6 mg oral tablet) 1 tabs 11/21/2017 11/28/2017 Oral 1 tabs, Oral, Daily, PRN: Constipation LORazepam(Ativan) 0.25 mL 201711/22/2017 IV Push 0.5 mg 0.5 mg=0.25 mL, IV Push, q4hr, PRN: Agitation ipratropium-albuterol(DuoNeb 0.5 mg-2.5 mg/3 mL inhalation solution ) 3 mL 11/21/2017 11/21/2017 NEB 3 mL, NEB, QID, PRN: Shortness of Breath/Wheezing budesonide-formoterol(Symbicort 160 mcg-4.5 mcg/inh inhalation aerosol) 2 puffs 11/21/20172017 Inhalation 2 puffs, Inhalation, BID fluticasone-salmeterol(Advair HFA 115 mcg-21 mcg/inh inhalation aerosol) 2 puffs 11/21/20172017 Inhalation 2 puffs, Inhalation, BID ipratropium-albuterol(DuoNeb 0.5 mg-2.5 mg/3 mL inhalation solution ) 3 mL 11/22/2017 11/28/2017 NEB 3 mL, NEB, QID, PRN: Shortness of Breath/Wheezing budesonide-formoterol(Symbicort 160 mcg-4.5 mcg/inh inhalation aerosol) 2 puffs 11/22/20172017 Inhalation 2 puffs, Inhalation, BID fluticasone-salmeterol(Advair HFA 115 mcg-21 mcg/inh inhalation aerosol) 2 puffs 11/22/2017 Inhalation 2 puffs, Inhalation, BID, 0 Refill(s) albuterol(Proventil HFA 90 mcg/inh inhalation aerosol) 2 puffs 11/22/2017 Inhalation 2 puffs, Inhalation, QID, PRN: Shortness of Breath/Wheezing, 0 Refill(s) LORazepam(LORazepam) 1 mL 201711/22/2017 IntraMuscular 2 mg 2 mg=1 mL, IntraMuscular, Once haloperidol(Haldol) 0.5 mL 201711/28/2017 IV Push 2.5 mg 2.5 mg=0.5 mL, IV Push, q4hr, PRN: Agitation LORazepam(LORazepam) 1 mL 201711/26/2017 IV Push 2 mg 2 mg=1 mL, IV Push, q2hr, PRN: Agitation lurasidone(Latuda) 1 tabs 201711/28/2017 Oral 60 mg 60 mg=1 tabs, Oral, With Dinner clonazePAM(clonazePAM) 1 tabs 11/2511/28/2017 Oral 1 mg 1 mg=1 tabs, Oral, q6hr, PRN: Anxiety nicotine(nicotine 2 mg oral transmucosal gum) 1 Each 11/25/2017 11/28/2017 Chewed 2 mg 2 mg=1 Each, Chewed, q2hr, PRN: Smoking Cessation ibuprofen(ibuprofen) 1 tabs 201711/28/2017 Oral 400 mg 400 mg=1 tabs, Oral, q6hr, PRN: Pain Moderate (4-6) nicotine(nicotine 14 mg/24 hr transdermal film, extended release) 1 patches 11/26/2017 11/28/2017 TransDermal 1 patches, TransDermal, Daily LORazepam(LORazepam) 1 tabs 201711/28/2017 Oral 1 mg 1 mg=1 tabs, Oral, q2hr, PRN: Anxiety haloperidol(Haldol) 1 tabs 201711/28/2017 Oral 0.5 mg 0.5 mg=1 tabs, Oral, q1hr, PRN: Agitation lurasidone(Latuda 60 mg oral tablet) 1 tabs 11/28/2017 Oral 60 mg 60 mg=1 tabs, Oral, With Dinner, 30 tabs, 0 Refill(s) ibuprofen(ibuprofen) 1 tabs 201712/18/2017 Oral 800 mg 800 mg=1 tabs, Oral, Once, PRN: Pain Mild (1-3) nicotine(nicotine 2 mg oral transmucosal gum) 1 Each 12/16/2017 12/18/2017 Chewed 2 mg 2 mg=1 Each, Chewed, q2hr, PRN: Smoking Cessation LORazepam(Ativan) 1 mL 12/16/2017 12/18/2017 IntraMuscular 2 mg 2 mg=1 mL, IntraMuscular, Once, PRN: Other (See Comment) haloperidol(Haldol) 1 mL 201712/18/2017 IntraMuscular 5 mg 5 mg=1 mL, IntraMuscular, Once, PRN: Other (See Comment) diphenhydrAMINE(Benadryl) 1 mL 03/201812/18/2017 IntraMuscular 50 mg 50 mg=1 mL, IntraMuscular, q4hr, PRN: Extrapyramidal Symptoms diphenhydrAMINE(diphenhydrAMINE) 1 mL 12/18/2017 12/24/2017 IntraMuscular 50 mg 50 mg=1 mL, IntraMuscular, q4hr, PRN: Extrapyramidal Symptoms nicotine(nicotine 2 mg oral transmucosal gum) 1 Each 12/18/2017 12/24/2017 Oral 2 mg 2 mg=1 Each, Oral, q1hr, PRN: Other (See Comment) nicotine(Habitrol 21 mg/24 hr transdermal film, extended release) 1 patches 12/18/2017 12/24/2017 TransDermal 1 patches, TransDermal, Daily LORazepam(Ativan) 1 mL 12/18/2017 12/24/2017 IntraMuscular 2 mg 2 mg=1 mL, IntraMuscular, q4hr, PRN: Anxiety acetaminophen(acetaminophen) 2 tabs 12/18/2017 12/24/2017 Oral 650 mg 650 mg=2 tabs, Oral, q4hr, PRN: Pain haloperidol(Haldol) 1 mL 201712/24/2017 IntraMuscular 5 mg 5 mg=1 mL, IntraMuscular, q4hr, PRN: Agitation fluticasone-salmeterol(Advair HFA 115 mcg-21 mcg/inh inhalation aerosol) 2 puffs 12/19/20172017 Inhalation 2 puffs, Inhalation, BID lurasidone(Latuda) 1 tabs 201712/24/2017 Oral 60 mg 60 mg=1 tabs, Oral, With Dinner ibuprofen(ibuprofen) 1 tabs 201712/24/2017 Oral 600 mg 600 mg=1 tabs, Oral, TID, PRN: Pain Moderate (4-6) diphenhydrAMINE(Benadryl) 1 caps 12/24/2017 Oral 50 mg 50 mg=1 caps, Oral, BID OLANZapine(ZyPREXA Zydis 10 mg oral tablet, disintegrating) 2 tabs 12/24/2017 Oral 20 mg 20 mg=2 tabs, Oral, Bedtime (once a day), 0 Refill(s) lurasidone(Latuda 60 mg oral tablet) 1 tabs 12/24/2017 Oral 60 mg 60 mg=1 tabs, Oral, With Dinner, 0 Refill(s) hydrOXYzine(hydrOXYzine hydrochloride 25 mg oral tablet) 2 tabs 12/24/2017 Oral 50 mg 50 mg=2 tabs, Oral, TID, PRN: Anxiety, 0 Refill(s ) diphenhydrAMINE(Benadryl 25 mg oral capsule) 2 caps 12/24/2017 Oral 50 mg 50 mg=2 caps, Oral, BID, 0 Refill(s) ketorolac(Toradol) 1 mL 01/04/2018 01/04/2018 IV Push 30 mg 30 mg=1 mL, IV Push, Once nitrofurantoin(Macrobid 100 mg oral capsule) 1 caps 01/04/2018 01/11/2018 Oral 100 mg 100 mg=1 caps, Oral, BID, for 7 days, with food SUP/José Magallanes MD., 14 caps, 0 Refill(s) Problems Date Dx Coded Attending Type Code Diagnosis Diagnosed By 05/04/2015 José Magallanes MD Final 305.1 TOBACCO USE DISORDER 05/04/2015 José Magallanes MD Reason 462 ACUTE PHARYNGITIS 05/04/2015 José Magallanes MD Final 466.0 ACUTE BRONCHITIS 06/11/2015 Navin Reynolds MD Final 305.1 TOBACCO USE DISORDER 06/11/2015 Navin Reynolds MD Reason 787.01 NAUSEA WITH VOMITING 07/28/2015 F E03.9 Hypothyroidism , unspecified MawilyDeboRosie Sahni A 09/30/2015 F F31.5 Bipolar disorder, current episode depressed, severe, with psychotic features Dianne Riggs A 09/30/2015 F F41.9 Anxiety disorder, unspecified Dianne Riggs A 09/30/2015 F F43.10 Post- traumatic stress disorder, unspecified Dianne Riggs A 09/30/2015 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 Dianne Riggs A 09/30/2015 F F41.9 Anxiety disorder, unspecified 09/30/2015 F F43.10 Post- traumatic stress disorder, unspecified 09/30/2015 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 09/30/2015 F F31.5 Bipolar disorder, current episode depressed, severe, with psychotic features 10/20/2015 F F31.5 Bipolar disorder, current episode depressed, severe, with psychotic features Delatorre, Marilyn 10/20/2015 F F41.9 Anxiety disorder, unspecified 10/20/2015 F F43.10 Post- traumatic stress disorder, unspecified 10/20/2015 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 10/20/2015 F F41.9 Anxiety disorder, unspecified Delatorre, Marilyn 10/20/2015 F F43.10 Post- traumatic stress disorder, unspecified Delatorre, Marilyn 10/20/2015 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 Delatorre, Marilyn 10/20/2015 F F31.5 Bipolar disorder, current episode depressed, severe, with psychotic features 11/02/2015 Final F17.210 Nicotine dependence, cigarettes, uncomplicated 11/02/2015 Final J06.9 Acute upper respiratory infection, unspecified 11/02/2015 Final J45.901 Unspecified asthma with (acute) exacerbation 11/02/2015 Reason R05 Cough 11/04/2015 Richar Pierce Final F17.210 Nicotine dependence, cigarettes, uncomplicated 11/04/2015 Richar Pierce Final J45.909 Unspecified asthma, uncomplicated 11/04/2015 Richar Pierce Final R05 Cough 11/04/2015 Richar Pierce Reason R06.02 Shortness of breath 11/30/2015 José Magallanes MD Final F17.210 Nicotine dependence, cigarettes, uncomplicated 11/30/2015 José Magallanes MD Reason J02.9 Acute pharyngitis, unspecified 11/30/2015 José Magallanes MD Final J45.909 Unspecified asthma, uncomplicated 12/15/2015 F F31.5 Bipolar disorder, current episode depressed, severe, with psychotic features Lidia Main 12/15/2015 F F41.9 Anxiety disorder, unspecified Lidia Main M 12/15/2015 F F43.10 Post- traumatic stress disorder, unspecified Lidia Main M 12/15/2015 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 Lidia Main M 12/15/2015 F F41.9 Anxiety disorder, unspecified 12/15/2015 F F43.10 Post- traumatic stress disorder, unspecified 12/15/2015 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 12/15/2015 F F31.5 Bipolar disorder, current episode depressed, severe, with psychotic features 01/05/2016 F F41.9 Anxiety disorder, unspecified 01/05/2016 F F43.10 Post- traumatic stress disorder, unspecified 01/05/2016 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 01/05/2016 F F31.5 Bipolar disorder, current episode depressed, severe, with psychotic features Anju, Aliza Ivette 01/05/2016 F F41.9 Anxiety disorder, unspecified Anju, Aliza Ivette 01/05/2016 F F43.10 Post- traumatic stress disorder, unspecified Anju, Aliza Ivette 01/05/2016 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 Anju, Aliza Ivette 01/10/2016 F F31.5 Bipolar disorder, current episode depressed, severe, with psychotic features Delatorre, Marilyn 01/10/2016 F F41.9 Anxiety disorder, unspecified Delatorre, Marilyn 01/10/2016 F F43.10 Post- traumatic stress disorder, unspecified Delatorre, Marilyn 01/10/2016 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 Delatorre, Marilyn 01/10/2016 F F41.9 Anxiety disorder, unspecified 01/10/2016 F F43.10 Post- traumatic stress disorder, unspecified 01/10/2016 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 01/10/2016 F F31.5 Bipolar disorder, current episode depressed, severe, with psychotic features 01/14/2016 F F31.5 Bipolar disorder, current episode depressed, severe, with psychotic features Anju, Aliza Ivette 01/14/2016 F F41.9 Anxiety disorder, unspecified Anju, Aliza Ivette 01/14/2016 F F43.10 Post- traumatic stress disorder, unspecified Anju, Aliza Ivette 01/14/2016 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 Anju, Aliza Ivette 01/14/2016 F F41.9 Anxiety disorder, unspecified 01/14/2016 F F43.10 Post- traumatic stress disorder, unspecified 01/14/2016 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 01/19/2016 F F31.5 Bipolar disorder, current episode depressed, severe, with psychotic features 01/24/2016 F F31.5 Bipolar disorder, current episode depressed, severe, with psychotic features 01/27/2016 F F41.9 Anxiety disorder, unspecified 01/27/2016 F F43.10 Post- traumatic stress disorder, unspecified 01/28/2016 F F31.5 Bipolar disorder, current episode depressed, severe, with psychotic features Garcia, Ivette L 01/28/2016 F F41.9 Anxiety disorder, unspecified Garcia, Ivette L 01/28/2016 F F43.10 Post- traumatic stress disorder, unspecified Garcia, Ivette L 01/28/2016 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 Garcia, Ivette L 01/28/2016 F F41.9 Anxiety disorder, unspecified 01/28/2016 F F43.10 Post- traumatic stress disorder, unspecified 01/28/2016 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 02/01/2016 Elpidio DODD, José Barajas Final F17.210 Nicotine dependence, cigarettes, uncomplicated 02/01/2016 Elpidio DODD, Jsoé Barajas Final J06.9 Acute upper respiratory infection, unspecified 02/01/2016 Elpidio DODD, José Barajas Final J40 Bronchitis, not specified as acute or chronic 02/01/2016 Elpidio DODD, José Barajas Reason R05 Cough 02/07/2016 F F31.5 Bipolar disorder, current episode depressed, severe, with psychotic features 02/07/2016 F F41.9 Anxiety disorder, unspecified 02/07/2016 F F43.10 Post- traumatic stress disorder, unspecified 02/08/2016 F F31.5 Bipolar disorder, current episode depressed, severe, with psychotic features 02/08/2016 F F31.5 Bipolar disorder, current episode depressed, severe, with psychotic features Sakina-Sahni, Rosie A 02/08/2016 F F41.9 Anxiety disorder, unspecified Maugans-Sahni, Rosie A 02/08/2016 F F43.10 Post- traumatic stress disorder, unspecified Makaitlinns-Sahni, Rosie A 02/08/2016 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 Sakina-Bora, Rosie A 02/08/2016 F I10 Essential ( primary) hypertension Mawily-Bora, Rosie A 02/09/2016 F F31.5 Bipolar disorder, current episode depressed, severe, with psychotic features Juan Ramon Marilyn 02/09/2016 F F41.9 Anxiety disorder, unspecified Delatorre, Marilyn 02/09/2016 F F43.10 Post- traumatic stress disorder, unspecified Delatorre, Marilyn 02/09/2016 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 Delatorre, Marilyn 02/09/2016 F F41.9 Anxiety disorder, unspecified 02/09/2016 F F43.10 Post- traumatic stress disorder, unspecified 02/09/2016 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210 Nicotine dependence, cigarettes, uncomplicated 02/23/2016 Richar Pierce Final J45.909 Unspecified asthma, uncomplicated 02/23/2016 Richar Pierce Final N89.8 Other specified noninflammatory disorders of vagina 02/23/2016 Richar Pierce Reason O03.9 Complete or unspecified spontaneous without complication 02/23/2016 Richar Pierce Final O21.9 Vomiting of , unspecified 02/23/2016 Richar Pierce Final O23.41 Unspecified infection of urinary tract in , first trimester 02/23/2016 Richar Pierce Final O99.331 Smoking (tobacco) complicating , first trimester 02/23/2016 Richar Pierce Final O99.511 Diseases of the respiratory system complicating , first trimester 02/23/2016 Richar Pierce Final O99.89 Other specified diseases and conditions complicating , childbirth 02/23/2016 Richar Pierce Final Z3A.01 Less than 8 weeks gestation of 02/23/2016 F F31.5 Bipolar disorder, current episode depressed, severe, with psychotic features 02/24/2016 F F41.9 Anxiety disorder, unspecified 02/24/2016 F F43.10 Post- traumatic stress disorder, unspecified 02/24/2016 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 02/24/2016 F F31.5 Bipolar disorder, current episode depressed, severe, with psychotic features Evans, Joey 02/24/2016 F F41.9 Anxiety disorder, unspecified Evans, Joey 02/24/2016 F F43.10 Post- traumatic stress disorder, unspecified Evans, Joey 02/24/2016 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 Evans, Joey 02/24/2016 F F31.5 Bipolar disorder, current episode depressed, severe, with psychotic features 03/03/2016 Atif, Stevie Final F17.210 Nicotine dependence, cigarettes, uncomplicated 03/03/2016 Atif, Stevie Final J45.909 Unspecified asthma, uncomplicated 03/03/2016 Atif, Stevie Final O20.0 Threatened 03/03/2016 Srivastava Stevie Reason O26.851 Spotting complicating , first trimester 03/03/2016 Atif, Stevie Final O99.331 Smoking (tobacco) complicating , first trimester 03/03/2016 Srivastava Stevie Final O99.511 Diseases of the respiratory system complicating , first trimester 03/03/2016 Srivastava Stevie Final Z3A.08 8 weeks gestation of 03/06/2016 Srivastava Stevie Final F17.210 Nicotine dependence, cigarettes, uncomplicated 03/06/2016 Srivastava Stevie Final J45.909 Unspecified asthma, uncomplicated 03/06/2016 Atif, Stevie Final O03.9 Complete or unspecified spontaneous without complication 03/06/2016 Srivastava Stevie Reason O26.851 Spotting complicating , first trimester 03/06/2016 Srivastava Stevie Final O99.331 Smoking (tobacco) complicating , first trimester 03/06/2016 Srivastava Mark Final O99.511 Diseases of the respiratory system complicating , first trimester 03/06/2016 Srivastava Mark Final Z3A.08 8 weeks gestation of 03/06/2016 F F31.5 Bipolar disorder, current episode depressed, severe, with psychotic features 03/06/2016 F F41.9 Anxiety disorder, unspecified 03/06/2016 F F43.10 Post- traumatic stress disorder, unspecified 03/06/2016 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 03/06/2016 F F31.5 Bipolar disorder, current episode depressed, severe, with psychotic features Herl, Reginald W 03/06/2016 F F41.9 Anxiety disorder, unspecified Herl, Reginald W 03/06/2016 F F43.10 Post- traumatic stress disorder, unspecified Herl, Reginald W 03/06/2016 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 Herl, Reginald W 03/06/2016 F F31.5 Bipolar disorder, current episode depressed, severe, with psychotic features 03/06/2016 F F31.5 Bipolar disorder, current episode depressed, severe, with psychotic features David, Rosie A 03/06/2016 F F41.9 Anxiety disorder, unspecified Mawily-Sahni, Rosie A 03/06/2016 F F43.10 Post- traumatic stress disorder, unspecified Makaitlinns-Sahni, Rosie A 03/06/2016 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 David, Rosie A 03/06/2016 F I10 Essential ( primary) hypertension David, Rosie A 03/14/2016 F F31.5 Bipolar disorder, current episode depressed, severe, with psychotic features Garcia, Ivette L 03/14/2016 F F41.9 Anxiety disorder, unspecified Garcia, Ivette L 03/14/2016 F F43.10 Post- traumatic stress disorder, unspecified Garcia, Ivette L 03/14/2016 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 Garcia, Ivette L 03/14/2016 F F41.9 Anxiety disorder, unspecified 03/14/2016 F F43.10 Post- traumatic stress disorder, unspecified 03/14/2016 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 03/15/2016 Jorge Brice Final E03.9 Hypothyroidism, unspecified 03/15/2016 Jorge Brice Final F17.210 Nicotine dependence, cigarettes, uncomplicated 03/15/2016 Jorge Brice Final F31.9 Bipolar disorder, unspecified 03/15/2016 Jorge Brice Final F43.10 Post-traumatic stress disorder, unspecified 03/15/2016 Jorge Brice Final F60.3 Borderline personality disorder 03/15/2016 Jorge Brice Final J45.909 Unspecified asthma, uncomplicated 03/15/2016 Jorge Brice Reason O03.4 Incomplete spontaneous without complication 03/15/2016 Jorge Brice Final O03.5 Genital tract and pelvic infection following complete or unspecified sponta 03/15/2016 Jorge Brice Final O99.280 Endocrine, nutritional and metabolic diseases complicating , unspe 03/15/2016 Jorge Brice Final O99.330 Smoking (tobacco) complicating , unspecified trimester 03/15/2016 Jorge Brice Final O99.340 Other mental disorders complicating , unspecified trimester 03/15/2016 Jorge Brice Final O99.519 Diseases of the respiratory system complicating , unspecified trim 03/23/2016 F F31.5 Bipolar disorder, current episode depressed, severe, with psychotic features 03/28/2016 F F31.5 Bipolar disorder, current episode depressed, severe, with psychotic features Kymberly Nichols M 03/28/2016 F F41.9 Anxiety disorder, unspecified [place], Kymberly M 03/28/2016 F F43.10 Post- traumatic stress disorder, unspecified [place], Kymberly M 03/28/2016 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 Suzette Nicholstie M 03/28/2016 F F41.9 Anxiety disorder, unspecified 03/28/2016 F F43.10 Post- traumatic stress disorder, unspecified 03/28/2016 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 03/30/2016 F F31.5 Bipolar disorder, current episode depressed, severe, with psychotic features Dianne Riggs 03/30/2016 F F41.9 Anxiety disorder, unspecified Dianne Riggs 03/30/2016 F F43.10 Post- traumatic stress disorder, unspecified Dianne Riggs 03/30/2016 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 Dianne Riggs 03/30/2016 F F41.9 Anxiety disorder, unspecified 03/30/2016 F F43.10 Post- traumatic stress disorder, unspecified 03/30/2016 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 04/03/2016 F F31.5 Bipolar disorder, current episode depressed, severe, with psychotic features 04/03/2016 F F31.5 Bipolar disorder, current episode depressed, severe, with psychotic features 04/07/2016 F F31.5 Bipolar disorder, current episode depressed, severe, with psychotic features Garcia, Ivette L 04/07/2016 F F41.9 Anxiety disorder, unspecified Garcia, Ivette L 04/07/2016 F F43.10 Post- traumatic stress disorder, unspecified Garcia, Ivette L 04/07/2016 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 Garcia, Ivette L 04/07/2016 F F41.9 Anxiety disorder, unspecified 04/07/2016 F F43.10 Post- traumatic stress disorder, unspecified 04/07/2016 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 04/10/2016 F F31.5 Bipolar disorder, current episode depressed, severe, with psychotic features 05/29/2016 F F31.5 Bipolar disorder, current episode depressed, severe, with psychotic features Anju, Aliza Ivette 05/29/2016 F F41.9 Anxiety disorder, unspecified 05/29/2016 F F43.10 Post- traumatic stress disorder, unspecified 05/29/2016 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 05/29/2016 F F41.9 Anxiety disorder, unspecified Anju, Aliza Ivette 05/29/2016 F F43.10 Post- traumatic stress disorder, unspecified Anju, Aliza Ivette 05/29/2016 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 Anju, Aliza Ivette 05/30/2016 F F31.5 Bipolar disorder, current episode depressed, severe, with psychotic features 05/31/2016 F F31.5 Bipolar disorder, current episode depressed, severe, with psychotic features Lidia Main 05/31/2016 F F41.9 Anxiety disorder, unspecified Lidia Main 05/31/2016 F F43.10 Post- traumatic stress disorder, unspecified Jose David, Lidia M 05/31/2016 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 Lidia Main 05/31/2016 F F41.9 Anxiety disorder, unspecified 05/31/2016 F F43.10 Post- traumatic stress disorder, unspecified 05/31/2016 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 06/01/2016 Atif,, Stevie Final F17.210 Nicotine dependence, cigarettes, uncomplicated 06/01/2016 Srivastava Stevie Final J45.901 Unspecified asthma with (acute) exacerbation 06/01/2016 Atif,, Stevie Reason R05 Cough 06/03/2016 F F31.5 Bipolar disorder, current episode depressed, severe, with psychotic features 07/12/2016 F F31.5 Bipolar disorder, current episode depressed, severe, with psychotic features Garcia, Ivette L 07/12/2016 F F41.9 Anxiety disorder, unspecified Garcia, Ivette L 07/12/2016 F F43.10 Post- traumatic stress disorder, unspecified Garcia, Ivette L 07/12/2016 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 Garcia, Ivette L 07/12/2016 F F41.9 Anxiety disorder, unspecified Psy, Batch 07/12/2016 F F43.10 Post- traumatic stress disorder, unspecified Psy, Batch 07/12/2016 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 Psy, Batch 07/14/2016 F F31.5 Bipolar disorder, current episode depressed, severe, with psychotic features Psy, Batch 07/31/2016 F E03.9 Hypothyroidism , unspecified Maugans-SahniRosie A 07/31/2016 F F31.5 Bipolar disorder, current episode depressed, severe, with psychotic features Lidia Main 07/31/2016 F F41.9 Anxiety disorder, unspecified Lidia Main M 07/31/2016 F F43.10 Post- traumatic stress disorder, unspecified Lidia Main 07/31/2016 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 Lidia Main 07/31/2016 F F41.9 Anxiety disorder, unspecified Psy, Batch 07/31/2016 F F43.10 Post- traumatic stress disorder, unspecified Psy, Batch 07/31/2016 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 Psy, Batch 07/31/2016 F F31.5 Bipolar disorder, current episode depressed, severe, with psychotic features Rosie Hernandez 07/31/2016 F F41.9 Anxiety disorder, unspecified David, Rosie A 07/31/2016 F F43.10 Post- traumatic stress disorder, unspecified David, Rosie Morejon 07/31/2016 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 Rosie Hernandez 07/31/2016 F I10 Essential ( primary) hypertension Rosie Hernandez 07/31/2016 F F31.5 Bipolar disorder, current episode depressed, severe, with psychotic features Psy, Batch 08/16/2016 Velazquez Jeremy Admitting R10.9 08/18/2016 Zac Tijerina Final F17.210 Nicotine dependence, cigarettes, uncomplicated 08/18/2016 Zac Tijerina Reason R07.81 Pleurodynia 08/18/2016 Zac Tijerina Final R10.11 Right upper quadrant pain 08/18/2016 Zac Tijerina Final Z90.49 Acquired absence of other specified parts of digestive tract 08/23/2016 Velazquez Jeremy Final E03.9 Hypothyroidism, unspecified 08/23/2016 Velazquez Jeremy Final E66.9 Obesity, unspecified 08/23/2016 Marcus,Yunior Final F17.210 Nicotine dependence, cigarettes, uncomplicated 08/23/2016 Velazquez Jeremy Final F31.9 Bipolar disorder, unspecified 08/23/2016 Velazquez Jeremy Final F43.10 Post-traumatic stress disorder, unspecified 08/23/2016 Velazquez Jeremy Final F60.3 Borderline personality disorder 08/23/2016 Velazquez Jeremy Final J45.909 Unspecified asthma, uncomplicated 08/23/2016 Velazquez Jeremy Final K21.9 Gastro-esophageal reflux disease without esophagitis 08/23/2016 Velazquez Jeremy Final K80.10 Calculus of gallbladder with chronic cholecystitis without obstruction 08/23/2016 Velazquez Jeremy Reason R10.13 Epigastric pain 08/23/2016 Velazquez Jeremy Final Z23 Encounter for immunization 08/23/2016 Velazquez Jeremy Final Z68.34 Body mass index (BMI) 34.0-34.9, adult 08/23/2016 Velazquez Jeremy Final Z79.899 Other group home (current) drug therapy 10/03/2016 Richar Pierce Final F17.210 Nicotine dependence, cigarettes, uncomplicated 10/03/2016 Richar Pierce Reason J02.9 Acute pharyngitis, unspecified 10/03/2016 Richar Pierce Final J03.90 Acute tonsillitis, unspecified 10/06/2016 Yunior Velazquez L K80.10 Calculus of gallbladder with chronic cholecystitis without obstruction Marcus, Yunior L 10/06/2016 Yunior Velazquez L F17.210 Nicotine dependence, cigarettes, uncomplicated Marcus, Yunior L 10/06/2016 Marcus, Yunior L K80.80 Other cholelithiasis without obstruction Marcus, Yunior L 10/06/2016 Marcus, Yunior L R10.13 Epigastric pain Marcus, Yunior L 10/06/2016 Marcus, Yunior L R11.0 Nausea Marcus, Yunior L 10/10/2016 Angelito Velazquezemy L F17.210 Nicotine dependence, cigarettes, uncomplicated Marcus, Yunior L 10/10/2016 Marcus, Yunior L K80.80 Other cholelithiasis without obstruction Marcus, Yunior L 10/10/2016 Marcus, Yunior L R10.13 Epigastric pain Marcus, Yunior L 10/10/2016 Marcus, Yunior L R11.0 Nausea Marcus, Yunior L 10/10/2016 Marcus, Yunior L K80.10 Calculus of gallbladder with chronic cholecystitis without obstruction Marcus, Yunior L 11/07/2016 F F31.5 Bipolar disorder, current episode depressed, severe, with psychotic features Garcia, Ivette L 11/07/2016 F F41.9 Anxiety disorder, unspecified Garcia, Ivette L 11/07/2016 F F43.10 Post- traumatic stress disorder, unspecified Garcia, Ivette L 11/07/2016 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 Garcia, Ivette L 11/07/2016 F F41.9 Anxiety disorder, unspecified Psy, Batch 11/07/2016 F F43.10 Post- traumatic stress disorder, unspecified Psy, Batch 11/07/2016 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 Psy, Batch 11/09/2016 F F31.5 Bipolar disorder, current episode depressed, severe, with psychotic features Psy, Batch 12/27/2016 F F31.5 Bipolar disorder, current episode depressed, severe, with psychotic features MagdalenaSuzette polancotie M 12/27/2016 F F41.9 Anxiety disorder, unspecified Magdalena, Kymberly M 12/27/2016 F F43.10 Post- traumatic stress disorder, unspecified Magdalena, Kymberly M 12/27/2016 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 [place], Kymberly M 12/27/2016 F F41.9 Anxiety disorder, unspecified Psy, Batch 12/27/2016 F F43.10 Post- traumatic stress disorder, unspecified Psy, Batch 12/27/2016 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 Psy, Batch 01/01/2017 F F31.5 Bipolar disorder, current episode depressed, severe, with psychotic features Psy, Batch 01/03/2017 F F31.5 Bipolar disorder, current episode depressed, severe, with psychotic features [facility] F F41.9 Anxiety disorder, unspecified Psy, Batch 01/03/2017 F F43.10 Post- traumatic stress disorder, unspecified Psy, Batch 01/03/2017 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 Psy, Batch 01/04/2017 F F41.9 Anxiety disorder, unspecified Aleshia, Shaundrieka 01/04/2017 F F43.10 Post- traumatic stress disorder, unspecified Aleshia, Shaundrieka 01/04/2017 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 Aleshia, Shaundrieka 01/09/2017 F F31.5 Bipolar disorder, current episode depressed, severe, with psychotic features Psy, Batch 02/09/2017 Bruey,, Madelin Final F17.210 Nicotine dependence, cigarettes, uncomplicated 02/09/2017 Bruey,, Madelin Final F31.9 Bipolar disorder, unspecified 02/09/2017 Bruey,, Madelin Final F43.10 Post-traumatic stress disorder, unspecified 02/09/2017 Bruey,, Madelin Final F60.3 Borderline personality disorder 02/09/2017 Bruey,, Madelin Final J45.909 Unspecified asthma, uncomplicated 02/09/2017 Bruey,, Madelin Reason R10.32 Left lower quadrant pain 02/09/2017 Bruey,, Madelin Final Z90.49 Acquired absence of other specified parts of digestive tract 03/14/2017 W H52.13 Myopia, bilateral 03/14/2017 W H52.221 Regular astigmatism, right eye 03/16/2017 W H52.13 Myopia, bilateral 03/16/2017 W H52.221 Regular astigmatism, right eye 05/03/2017 F E03.9 Hypothyroidism , unspecified Mawily-Sahni, Rosie A 05/03/2017 F F31.5 Bipolar disorder, current episode depressed, severe, with psychotic features David, Rosie A 05/03/2017 F F41.9 Anxiety disorder, unspecified Sakina-Sahni, Rosie A 05/03/2017 F F43.10 Post- traumatic stress disorder, unspecified aSkina-Bora, Rosie A 05/03/2017 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 Sakina-Bora, Rosie A 05/03/2017 F I10 Essential ( primary) hypertension Sakina-Bora, Rosie A 05/03/2017 F F31.5 Bipolar disorder, current episode depressed, severe, with psychotic features Lidia Main 05/03/2017 F F41.9 Anxiety disorder, unspecified Lidia Main 05/03/2017 F F43.10 Post- traumatic stress disorder, unspecified Lidia Main 05/03/2017 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 Lidia Main 05/03/2017 F F31.5 Bipolar disorder, current episode depressed, severe, with psychotic features Psy, Batch 05/03/2017 F F41.9 Anxiety disorder, unspecified Psy, Batch 05/03/2017 F F43.10 Post- traumatic stress disorder, unspecified Psy, Batch 05/03/2017 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 Psy, Batch 05/25/2017 Elliot,, Joey Reason B34.9 Viral infection, unspecified 05/25/2017 Elliot,, Joey Final E03.9 Hypothyroidism, unspecified 05/25/2017 Elliot,, Joey Final F17.210 Nicotine dependence, cigarettes, uncomplicated 05/25/2017 Elliot,, Joey Final F31.9 Bipolar disorder, unspecified 05/25/2017 Elliot,, Joey Final F43.10 Post-traumatic stress disorder, unspecified 05/25/2017 Elliot,, Joey Final F60.3 Borderline personality disorder 05/25/2017 Elliot,, Joey Final G43.909 Migraine, unspecified, not intractable, without status migrainosus 05/25/2017 Elliot,, Joey Final J45.909 Unspecified asthma, uncomplicated 05/25/2017 Elliot,, Joey Final Z90.49 Acquired absence of other specified parts of digestive tract 05/25/2017 Elliot,, Joey Final Z32.02 Encounter for test, result negative 06/19/2017 Elliot,, Joey Final E03.9 Hypothyroidism, unspecified 06/19/2017 Elliot,, Joey Final F17.210 Nicotine dependence, cigarettes, uncomplicated 06/19/2017 Elliot,, Joey Final F31.9 Bipolar disorder, unspecified 06/19/2017 Elliot,, Joey Final F43.10 Post-traumatic stress disorder, unspecified 06/19/2017 Elliot,, Joey Final J45.909 Unspecified asthma, uncomplicated 06/19/2017 Elliot,, Joey Reason Z32.02 Encounter for test, result negative 08/07/2017 Elliot,, Joey Final E03.9 Hypothyroidism, unspecified 08/07/2017 Elliot,, Joey Final F17.210 Nicotine dependence, cigarettes, uncomplicated 08/07/2017 Elliot,, Joey Final F31.9 Bipolar disorder, unspecified 08/07/2017 Elliot,, Joey Final F43.10 Post-traumatic stress disorder, unspecified 08/07/2017 Elliot,, Joey Final J45.909 Unspecified asthma, uncomplicated 08/07/2017 Elliot,, Joey Final N39.0 Urinary tract infection, site not specified 08/07/2017 Elliot,, Joey Reason R10.84 Generalized abdominal pain 08/07/2017 Elliot,, Joey Final Z90.49 Acquired absence of other specified parts of digestive tract 08/08/2017 Elliot,, Joey Final A59.9 Trichomoniasis, unspecified 08/08/2017 Elliot,, Joey Final E03.9 Hypothyroidism, unspecified 08/08/2017 Elliot,, Joey Final F17.210 Nicotine dependence, cigarettes, uncomplicated 08/08/2017 Elliot,, Joey Final F19.10 Other psychoactive substance abuse, uncomplicated 08/08/2017 Elliot,, Joey Final F31.9 Bipolar disorder, unspecified 08/08/2017 Elliot,, Joey Final F32.9 Major depressive disorder, single episode, unspecified 08/08/2017 Elliot,, Joey Final F43.10 Post-traumatic stress disorder, unspecified 08/08/2017 Elliot,, Joey Final F60.3 Borderline personality disorder 08/08/2017 Elliot,, Joey Final J45.909 Unspecified asthma, uncomplicated 08/08/2017 Elliot,, Joey Reason R10.2 Pelvic and perineal pain 08/08/2017 Elliot,, Joey Final R45.851 Suicidal ideations 08/08/2017 Elliot,, Joey Final Z72.51 High risk heterosexual behavior 08/08/2017 Elliot,, Joey Final Z90.49 Acquired absence of other specified parts of digestive tract 10/18/2017 Magallanes Howard Reason R10.30 Lower abdominal pain, unspecified 11/06/2017 Zac Tijerina Final J02.9 Acute pharyngitis, unspecified 11/06/2017 Zac Tijerina Reason R05 Cough 11/06/2017 Zac Tijerina Final R52 Pain, unspecified 11/21/2017 Hernandez Rex Admitting F15.10 11/28/2017 F E03.9 Hypothyroidism , unspecified Jason, Bethany 11/28/2017 F F12.10 Cannabis abuse, uncomplicated JasonBethany 11/28/2017 F F15.20 Other stimulant dependence, uncomplicated JasonJose Martinen 11/28/2017 F F31.5 Bipolar disorder, current episode depressed, severe, with psychotic features Bethany Gomez 11/28/2017 F F41.9 Anxiety disorder, unspecified Jason, Bethany 11/28/2017 F F43.10 Post- traumatic stress disorder, unspecified Jason, Bethany 11/28/2017 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 Bethany Gomez 11/28/2017 F I10 Essential ( primary) hypertension Bethany Gomez 11/28/2017 F Z56.9 Unspecified problems related to employment Bethany Gomez 11/28/2017 F Z59.0 Homelessness Bethany Gomez 11/28/2017 F Z65.3 Problems related to other legal circumstances Bethany Gomez 11/28/2017 F F31.5 Bipolar disorder, current episode depressed, severe, with psychotic features Pacheco, Lucy R 11/28/2017 F F41.9 Anxiety disorder, unspecified Pacheco, Lucy R 11/28/2017 F F43.10 Post- traumatic stress disorder, unspecified Pacheco, Lucy R 11/28/2017 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 Pacheco, Lucy R 11/29/2017 F F31.5 Bipolar disorder, current episode depressed, severe, with psychotic features Psy, Batch 11/29/2017 F F41.9 Anxiety disorder, unspecified Psy, Batch 11/29/2017 F F43.10 Post- traumatic stress disorder, unspecified Psy, Batch 11/29/2017 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 Psy, Batch 11/29/2017 David,, Gavin Final E03.9 Hypothyroidism, unspecified 11/29/2017 David,, Gavin Final F15.10 Other stimulant abuse, uncomplicated 11/29/2017 David,, Gavin Final F17.210 Nicotine dependence, cigarettes, uncomplicated 11/29/2017 David,, Gavin Final F31.9 Bipolar disorder, unspecified 11/29/2017 David,, Gavin Final F41.9 Anxiety disorder, unspecified 11/29/2017 David,, Gavin Final F43.10 Post-traumatic stress disorder, unspecified 11/29/2017 David,, Gavin Final F60.3 Borderline personality disorder 11/29/2017 David,, Gavin Final G93.41 Metabolic encephalopathy 11/29/2017 David,, Gavin Final I80.8 Phlebitis and thrombophlebitis of other sites 11/29/2017 David,, Gavin Final J45.909 Unspecified asthma, uncomplicated 11/29/2017 David,, Gavin Admitting T39.1X2A Poisoning by 4-Aminophenol derivatives, intentional self-harm, initial enco 11/29/2017 David,, Gavin Final T43.292A Poisoning by other antidepressants, intentional self-harm, initial encounte 11/29/2017 David,, Gavin Final Y92.[address] in unspecified non-institutional (private) residence as t 11/29/2017 David,, Gavin Final T39.1X2A Poisoning by 4-Aminophenol derivatives, intentional self-harm, initial enco 11/29/2017 F F31.5 Bipolar disorder, current episode depressed, severe, with psychotic features Greg, Deborah Manette 11/29/2017 F F41.9 Anxiety disorder, unspecified Greg, Deborah Manette 11/29/2017 F F43.10 Post- traumatic stress disorder, unspecified Greg, Deborah Manette 11/29/2017 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 Greg, Deborah Manette 11/29/2017 F F31.5 Bipolar disorder, current episode depressed, severe, with psychotic features Ricks, Ella 11/29/2017 F F41.9 Anxiety disorder, unspecified Ricks, Ella 11/29/2017 F F43.10 Post- traumatic stress disorder, unspecified Ricks, Ella 11/29/2017 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 Ricks, Ella 11/30/2017 F F31.5 Bipolar disorder, current episode depressed, severe, with psychotic features Psy, Batch 11/30/2017 F F41.9 Anxiety disorder, unspecified Psy, Batch 11/30/2017 F F43.10 Post- traumatic stress disorder, unspecified Psy, Batch 11/30/2017 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 Psy, Batch 12/24/2017 F F31.5 Bipolar disorder, current episode depressed, severe, with psychotic features Amy Portillo Gay 12/24/2017 F F41.9 Anxiety disorder, unspecified Chambers, Amy Gay 12/24/2017 F F43.10 Post- traumatic stress disorder, unspecified Chambers Amy 12/24/2017 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 Chambers, Amy12/24/2017 F F31.5 Bipolar disorder, current episode depressed, severe, with psychotic features Chambers, 12/24/2017 F F41.9 Anxiety disorder, unspecified Chambers, 12/24/2017 F F43.10 Post- traumatic stress disorder, unspecified Chambers, Amy12/24/2017 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 Chambers, Amy12/24/2017 F F31.5 Bipolar disorder, current episode depressed, severe, with psychotic features Chambers, Amy12/24/2017 F F41.9 Anxiety disorder, unspecified Chambers, Amy12/24/2017 F F43.10 Post- traumatic stress disorder, unspecified Chambers, Amy12/24/2017 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 Chambers, Amy12/24/2017 F F31.5 Bipolar disorder, current episode depressed, severe, with psychotic features Chambers, Amy12/24/2017 F F41.9 Anxiety disorder, unspecified Chambers, Amy12/24/2017 F F43.10 Post- traumatic stress disorder, unspecified Chambers, Amy12/24/2017 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 Chambers, Amy12/24/2017 F F31.5 Bipolar disorder, current episode depressed, severe, with psychotic features Chambers, 12/24/2017 F F41.9 Anxiety disorder, unspecified Chambers, Amy12/24/2017 F F43.10 Post- traumatic stress disorder, unspecified Chambers, Amy12/24/2017 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 Chambers, Amy12/24/2017 F F31.5 Bipolar disorder, current episode depressed, severe, with psychotic features Chambers, 12/24/2017 F F41.9 Anxiety disorder, unspecified Chambers, Amy12/24/2017 F F43.10 Post- traumatic stress disorder, unspecified Chambers, Amy12/24/2017 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 Chambers, Amy01/07/2018 Elpidio,José Final E03.9 Hypothyroidism, unspecified 01/07/2018 Magallanes Howard Final E16.2 Hypoglycemia, unspecified 01/07/2018 Magallanes Howard Final F15.10 Other stimulant abuse, uncomplicated 01/07/2018 Magallanes Howard Final F17.210 Nicotine dependence, cigarettes, uncomplicated 01/07/2018 Magallanes Howard Final F31.9 Bipolar disorder, unspecified 01/07/2018 Magallanes Howard Final F43.10 Post-traumatic stress disorder, unspecified 01/07/2018 Magallanes Howard Final J45.909 Unspecified asthma, uncomplicated 01/07/2018 Magallanes Howard Reason R10.13 Epigastric pain 01/07/2018 Magallanes Howard Final R82.71 Bacteriuria 01/07/2018 Magallanes Howard Final Z32.02 Encounter for test, result negative 01/07/2018 Magallanes Howard Final 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 01/07/2018 Magallanes Howard Final Z88.0 Allergy status to penicillin 01/07/2018 Magallanes Howard Final Z88.1 Allergy status to other antibiotic agents status 01/07/2018 Magallanes Howard Final Z90.49 Acquired absence of other specified parts of digestive tract 01/07/2018 Magallanes Howard Final Z91.040 Latex allergy status 01/07/2018 Magallanes Howard Final Z91.19 Patient''s noncompliance with other medical treatment and regimen Procedures Code Description [place] [id number] OFFICE/OUTPATIENT VISIT, Rosie Appiah 09/30/2015 [id number] OFFICE/OUTPATIENT VISIT, Rosie Appiah 09/30/2015 [id number] OFFICE/OUTPATIENT VISIT, Rosie Appiah 10/20/2015 [id number] OFFICE/OUTPATIENT VISIT, Rosie Appiah 10/20/2015 10495 OFFICE/OUTPATIENT VISIT, Rosie Appiah 12/15/2015 [id number] OFFICE/OUTPATIENT VISIT, Rosie Appiah 12/15/2015 [id number] Aliza Rene 01/05/2016 [id number] Aliza Rene 01/05/2016 21005 OFFICE/OUTPATIENT VISIT, Rosie Appiah 01/10/2016 [id number] OFFICE/OUTPATIENT VISIT, GABI HearnkaitlinjuanitaSahni, Rosie A 01/10/2016 31614 Anju , Aliza Ivette 01/14/2016 50246 Anju , Aliza Ivette 01/14/2016 H0036 Evans , Joey 01/27/2016 H0036 Evans , Joey 01/27/2016 08286 Anju , Aliza Ivette 01/28/2016 45256 Anju , Aliza Ivette 01/28/2016 [id number] OFFICE/OUTPATIENT VISIT, GABI HearnkaitlinjuanitaSahni, Rosie A 02/09/2016 70157 OFFICE/OUTPATIENT VISIT, GABI SakinaDeboBora, Rosie A 02/09/2016 80675 Anju , Aliza Ivette 02/10/2016 85502 Anju , Aliza Ivette 02/10/2016 H0036 Evans , Joey 02/24/2016 H0036 Evans , Joey 02/24/2016 H2011 Herl, Reginald W 03/06/2016 H2011 Herl, Reginald W 03/06/2016 07354 Anju , Aliza Ivette 03/14/2016 11474 Anju , Aliza Ivette 03/14/2016 94533 Anju , Aliza Ivette 03/28/2016 34306 Anju , Aliza Ivette 03/28/2016 14026 OFFICE/OUTPATIENT VISIT, GABI HearnwilyDeboSahniRosie nguyen A 03/30/2016 [id number] OFFICE/OUTPATIENT VISIT, GABI SakinaDeboBora Rosie A 03/30/2016 15179 Anju , Aliza Ivette 04/07/2016 08359 Anju , Aliza Ivette 04/07/2016 90886 Anju , Aliza Ivette 05/29/2016 13644 Anju , Aliza Ivette 05/29/2016 60014 OFFICE/OUTPATIENT VISIT, GABI Hernandez Rosie A 05/31/2016 27749 OFFICE/OUTPATIENT VISIT, GABI Hernandez Rosie A 05/31/2016 87899 Anju , Aliza Ivette 07/12/2016 58119 Anju , Aliza Ivette 07/12/2016 63824 OFFICE/OUTPATIENT VISIT, GABI Hernandez Rosie A 07/31/2016 58073 OFFICE/OUTPATIENT VISIT, Rosie Appiah Darleen 07/31/2016 09350 Laparoscopy, surgical; cholecystectomy with cholangiography.. 2015 27912 Office or other outpatient visit for the evaluation and management of a new patient, which requires MarcusYunior 10/06/2016 18875 Laparoscopy, surgical; cholecystectomy with cholangiography MarcusYunior 10/06/2016 06983 Laparoscopy, surgical; cholecystectomy with cholangiography MarcusYunior 10/20/2016 [id number] Office or other outpatient visit for the evaluation and management of a new patient, which requires Yunior Velazquez 10/20/2016 75711 Aliza Rene 11/07/2016 91594 Aliza Rene 11/07/2016 46529 Yesenia Monk 12/27/2016 53397 Siomara Monkrilakshmi 12/27/2016 98548 Guillermo Monkundrieka 01/03/2017 81147 Siomara Monkrieka 01/03/2017 95936 EYE EXAM ESTABLISHED PAT 03/14/2017 02116 REFRACTION 03/14/2017 V2020 Vision svcs frames purchases 03/14/2017 V2100 Lens spher single plano 4.00 03/14/2017 V2103 Spherocylindr 4.00d/12- 2.00d 03/14/2017 V2782 Lens, 1.54-1.65 p/1.60- 1.79g 03/14/2017 VNOPP No Protection Plan 03/14/2017 [id number] OFFICE/OUTPATIENT VISIT, GABI Hernandez Rosie Darleen 05/03/2017 [id number] OFFICE/OUTPATIENT VISIT, GABI Hernandez Rosie A 05/03/2017 T1023 Gatekeeping Screen - Initial Bethany Gomez 11/28/2017 H2011 Crisis Intervention - Basic Ella Escalera 11/28/2017 H2011 Crisis Intervention - Advanced Lucy Pacheco 11/28/2017 H2011 Crisis Intervention - Advanced Lucy Pacheco 11/28/2017 H2011 Crisis Intervention - Intermediate Ella Escalera 11/28/2017 [id number] INITIAL HOSPITAL CARE CosammierSienna 12/19/2017 88563 SUBSEQUENT HOSPITAL CARE Coyner, Sienna S 12/20/2017 39834 SUBSEQUENT HOSPITAL CARE Coyner, Sienna S 12/21/2017 89352 SUBSEQUENT HOSPITAL CARE Coyner, Sienna S 12/22/2017 86932 SUBSEQUENT HOSPITAL CARE Coyner, Sienna S 12/23/2017 31792 HOSPITAL DISCHARGE DAY Cosammier, Sienna Pineda 12/24/2017 <section xmlns="urn:hl7-org:v3" xmlns:xsi="http://www.Wego3.org/2001/XMLSchema-instance"> < templateId root="[id number]" /> <templateId root= "[id number]" /> <code codeSystemName="LOINC" codeSystem= "[id number]" code="66031-2" displayName="Results" /> <title>Results< /title> <text> <table> <thead> <tr> <th>Test</th> <th>Result</th> <th>Range</th> </tr> </thead> < tbody> <tr> <th colspan="10">UR TEST - 01/30/16 21:54< /th> </tr> <tr> <td>UR TEST</td> <td> POSITIVE </td> <td>NEGATIVE</td> </tr> <tr> <th colspan="10">URINALYSIS, ROUTINE - 01/30/16 21:54</th> </tr> <tr> <td>UA LEUKOCYTE ESTERASE DIPSTICK</td> <td>NEGATIVE </td> <td>NEGATIVE</td> </tr> <tr> <td>UA NITRITE DIPSTICK</td> <td>NEGATIVE </td> <td>NEGATIVE</td> </tr > <tr> <td>UA PROTEIN DIPSTICK</td> <td>NEGATIVE </td> <td>NEGATIVE</td> </tr> <tr> <td>UA GLUCOSE DIPSTICK</td> <td>NEGATIVE </td> <td>NEGATIVE</td> </tr > <tr> <td>UA KETONE DIPSTICK</td> <td>NEGATIVE </td> <td>NEGATIVE</td> </tr> <tr> <td>UA UROBILINOGEN DIPSTICK</td> <td>NORMAL </td> <td>NORMAL</td> </tr> <tr> <td>UA BILIRUBIN DIPSTICK</td> <td> NEGATIVE </td> <td>NEGATIVE</td> </tr> <tr> <td> UA BLOOD DIPSTICK</td> <td>NEGATIVE </td> <td>NEGATIVE</td> </tr> <tr> <td>UA SPECIFIC GRAVITY</td> <td> 1.007 </td> <td>1.015-1.025</td> </tr> <tr> <td> UR PH</td> <td>5.0 </td> <td>5.0-7.0</td> </tr> <tr> < colspan="10">URINALYSIS, ROUTINE - 02/04/16 15:19</th> </tr> <tr> <td>UA LEUKOCYTE ESTERASE DIPSTICK</td> <td> 1+ </td> <td>NEGATIVE</td> </tr> <tr> <td>UA NITRITE DIPSTICK</td> <td>NEGATIVE </td> <td>NEGATIVE</td> </tr> <tr> <td>UA PROTEIN DIPSTICK</td> <td>TRACE </td> <td>NEGATIVE</td> </tr> <tr> <td>UA GLUCOSE DIPSTICK</td> <td>NEGATIVE </td> <td>NEGATIVE</td> </tr> <tr> <td>UA KETONE DIPSTICK</td> <td>TRACE < /td> <td>NEGATIVE</td> </tr> <tr> <td>UA UROBILINOGEN DIPSTICK</td> <td>NORMAL </td> <td>NORMAL</td> </tr> <tr> <td>UA BILIRUBIN DIPSTICK</td> <td> NEGATIVE </td> <td>NEGATIVE</td> </tr> <tr> <td> UA BLOOD DIPSTICK</td> <td>4+ </td> <td>NEGATIVE</td> < /tr> <tr> <td>UA SPECIFIC GRAVITY</td> <td>1.010 </td> <td>1.015-1.025</td> </tr> <tr> <td>UR PH</td> <td>7.0 </td> <td>5.0-7.0</td> </tr> <tr> < colspan="10">UA MICROSCOPIC - 02/04/16 15:19</th> </tr> < tr> <td>UA EPITHELIAL CELLS</td> <td>1+ epi/hpf</td> <td>0 - 1+</td> </tr> <tr> <td>UA MUCUS</td> <td >2+ </td> <td>NEG TO 1+</td> </tr> <tr> <td>UA RBC</td> <td>PACKED FIELD rbc/hpf</td> <td>0 - 3</td> < /tr> <tr> <td>UA VOLUME FOR EXAM</td> <td>12.0 mL</td> <td>(12mL STD)</td> </tr> <tr> <td>UA WBC</td> <td>2-5 wbc/hpf</td> <td>0 - 5</td> </tr> <tr> < colspan="10">CHEM/HEM PROFILE-BEDSIDE - 02/04/16 15:20</th> </tr> <tr> <td>POTASSIUM</td> <td>3.8 mmol/L</td> <td>3.5-5.3</td> </tr> <tr> <td>METHOD</td> <td>Bedside </td> <td /> </tr> <tr> <td> ANION GAP</td> <td>19 mmol/L</td> <td>10-20</td> </tr> <tr> <td>METHOD</td> <td>Bedside </td> <td / > </tr> <tr> <td>GLUCOSE</td> <td>83 mg/dL</td> <td>70-99</td> </tr> <tr> <td>BLOOD UREA NITROGEN</td> <td>8 mg/dL</td> <td>7-20</td> </tr> <tr> <td>CREATININE</td> <td>0.7 mg/dL</td> <td> 0.6-1.0</td> </tr> <tr> <td>HEMOGLOBIN</td> <td> 13.9 gm/dL</td> <td>12.0-16.0</td> </tr> <tr> < td>HEMATOCRIT</td> <td>41.0 %</td> <td>37.0-47.0</td> </tr> <tr> <td>SODIUM</td> <td>139 mmol/L</td> <td>135-148</td> </tr> <tr> <td>CHLORIDE</td> <td>104 mmol/L</td> <td>98-110</td> </tr> <tr> <td>CARBON DIOXIDE</td> <td>21 mmol/L</td> <td>21-32</td > </tr> <tr> <td>CALCIUM IONIZED</td> <td>4.7 mg /dL</td> <td>4.5-5.3</td> </tr> <tr> <th colspan ="10">HCG QUANT INTACT - 02/04/16 15:20</th> </tr> <tr> < td>HCG QUANT INTACT</td> <td>3906 mIU/mL</td> <td /> </ tr> <tr> <th colspan="10">Cytogenetics - 03/01/16 00:00</th> </tr> <tr> <td>Cytogenetics</td> <td>SEE IMAGE </ td> <td /> </tr> <tr> <td>Cytogenetics</td> <td>SEE IMAGE NA</td> <td /> </tr> <tr> < th colspan="10">CBC With Platelet and Differential - 03/07/16 22:37</th> </tr> <tr> <td>Absolute Basophils</td> <td>0.03 10*3</ td> <td>0.00-0.20</td> </tr> <tr> <td>Absolute Eosinophils</td> <td>0.71 10*3</td> <td>0.00-0.50</td> </tr> <tr> <td>Absolute Lymphocytes</td> <td>2.35 10*3< /td> <td>0.80-3.30</td> </tr> <tr> <td>Absolute Monocytes</td> <td>0.41 10*3</td> <td>0.30-1.00</td> </ tr> <tr> <td>Absolute Neutrophils</td> <td>3.37 10*3</ td> <td>1.90-7.00</td> </tr> <tr> <td>Basophils< /td> <td>0 %</td> <td>0-2</td> </tr> <tr> <td>Eosinophils</td> <td>10 %</td> <td>0-4</td> </tr> <tr> <td>HCT</td> <td>33.8 %</td> <td>37.0-47.0</td> </tr> <tr> <td>HGB</td> <td>11.2 g/dL</td> <td>12.0-16.0</td> </tr> <tr> <td>Immature Granulocytes</td> <td>0.1 %</td> <td>0.0- 1.0</td> </tr> <tr> <td>Lymphocytes</td> <td>34 %</td> <td>20-46</td> </tr> <tr> <td>MCH</td > <td>30.6 pg</td> <td>27.0-32.0</td> </tr> <tr > <td>MCHC</td> <td>33.1 g/dL</td> <td>32.0-36.0</td > </tr> <tr> <td>MCV</td> <td>92.3 fL</td> <td>82.0-99.0</td> </tr> <tr> <td>Monocytes</td> <td>6 %</td> <td>4-11</td> </tr> <tr> <td>MPV</td> <td>9.9 fL</td> <td>9.4-12.4</td> </tr> <tr> <td>Neutrophils</td> <td>49 %</td> < td>51-75</td> </tr> <tr> <td>Platelet Count</td> <td>308 K/uL</td> <td>150-400</td> </tr> <tr> <td>RBC</td> <td>3.66 10*6/uL</td> <td>4.00-5.20</td> < /tr> <tr> <td>RDW</td> <td>12.8 %</td> <td >11.5-14.5</td> </tr> <tr> <td>WBC</td> <td>6.9 K/uL</td> <td>4.8-10.8</td> </tr> <tr> <th colspan="10">HCG Quantitative - 03/07/16 22:37</th> </tr> <tr> <td>HCG Quantitative</td> <td>1174 mIU/mL</td> <td /> </tr> <tr> <th colspan="10">PTT/PT (INR) - 03/08/16 04:25 </th> </tr> <tr> <td>INR</td> <td>1.1 NA</td> <td>0.9-1.2</td> </tr> <tr> <td>PTT</td> <td>30.9 seconds</td> <td>25.0-35.0</td> </tr> <tr> <th colspan="10">CBC With Platelet No Differential - 03/08/16 06:54</th> </tr> <tr> <td>HCT</td> <td>29.3 %</td> <td>37.0-47.0</td> </tr> <tr> <td>HGB</td> <td>9.5 g/dL</td> <td>12.0-16.0</td> </tr> <tr> <td>MCH</td> <td>30.5 pg</td> <td>27.0-32.0</td> </ tr> <tr> <td>MCHC</td> <td>32.4 g/dL</td> <td> 32.0-36.0</td> </tr> <tr> <td>MCV</td> <td>94.2 fL</td> <td>82.0-99.0</td> </tr> <tr> <td>MPV</ td> <td>9.4 fL</td> <td>9.4-12.4</td> </tr> <tr > <td>Platelet Count</td> <td>239 K/uL</td> <td>150- 400</td> </tr> <tr> <td>RBC</td> <td>3.11 10*6/ uL</td> <td>4.00-5.20</td> </tr> <tr> <td>RDW</ td> <td>12.9 %</td> <td>11.5-14.5</td> </tr> <tr> <td>WBC</td> <td>5.4 K/uL</td> <td>4.8-10.8</ td> </tr> <tr> < colspan="10">CBC With Platelet No Differential - 03/08/16 15:19</th> </tr> <tr> <td>HCT</td > <td>28.9 %</td> <td>37.0-47.0</td> </tr> < tr> <td>HGB</td> <td>9.4 g/dL</td> <td>12.0-16.0</td > </tr> <tr> <td>MCH</td> <td>30.4 pg</td> <td>27.0-32.0</td> </tr> <tr> <td>MCHC</td> <td>32.5 g/dL</td> <td>32.0-36.0</td> </tr> <tr> <td>MCV</td> <td>93.5 fL</td> <td>82.0-99.0</td> </ tr> <tr> <td>MPV</td> <td>9.7 fL</td> <td>9.4- 12.4</td> </tr> <tr> <td>Platelet Count</td> <td >225 K/uL</td> <td>150-400</td> </tr> <tr> <td> RBC</td> <td>3.09 10*6/uL</td> <td>4.00-5.20</td> </tr > <tr> <td>RDW</td> <td>12.6 %</td> <td> 11.5-14.5</td> </tr> <tr> <td>WBC</td> <td>5.0 K /uL</td> <td>4.8-10.8</td> </tr> <tr> <th colspan="10">Glucose NPT - 08/16/16 16:59</th> </tr> <tr> <td>Glucose NPT</td> <td>84 mg/dL</td> <td>70-100</td> </tr> <tr> <th colspan="10">Basic Metabolic Panel (BMP) - 08/17/16 18:11</th> </tr> <tr> <td>Anion Gap</td> <td>9 NA</td> <td>3-20</td> </tr> <tr> <td> BUN</td> <td>8 mg/dL</td> <td>4-20</td> </tr> < tr> <td>Calcium</td> <td>8.8 mg/dL</td> <td>8.6-10.0< /td> </tr> <tr> <td>Chloride</td> <td>108 mEq/L< /td> <td>99-109</td> </tr> <tr> <td>CO2</td> <td>22 mEq/L</td> <td>22-32</td> </tr> <tr> <td>Creatinine</td> <td>0.77 mg/dL</td> <td>0.44-1.03</td > </tr> <tr> <td>Glucose</td> <td>104 mg/dL</td > <td>70-100</td> </tr> <tr> <td>Potassium</td> <td>3.6 mEq/L</td> <td>3.6-5.1</td> </tr> <tr> <td>Sodium</td> <td>139 mEq/L</td> <td>136-144</td> </tr> <tr> < colspan="10">eGFR - 08/17/16 18:11</th> </tr> <tr> <td>eGFR</td> <td>>60 NA</td> <td>>60</td> </tr> <tr> < colspan="10"> Urinalysis with reflex microscopic - 02/09/17 09:06</th> </tr> <tr > <td>Appearance</td> <td>Cloudy NA</td> <td /> </tr> <tr> <td>Bilirubin</td> <td>Negative NA</td> <td>Negative</td> </tr> <tr> <td>Blood</td> <td>Negative NA</td> <td>Negative</td> </tr> <tr> <td>Color</td> <td>Yellow NA</td> <td /> </tr > <tr> <td>Glucose, Urine</td> <td>Negative </td> <td>Negative</td> </tr> <tr> <td>Ketones</td> <td>Negative </td> <td>Negative</td> </tr> <tr> <td>Leukocyte Esterase</td> <td>Negative NA</td> <td> Negative</td> </tr> <tr> <td>Nitrites</td> <td> Negative NA</td> <td>Negative</td> </tr> <tr> < td>pH</td> <td>7.0 NA</td> <td>5.0-8.0</td> </tr> <tr> <td>Protein</td> <td>Negative NA</td> <td> Negative</td> </tr> <tr> <td>Specific [place]</td> <td>1.020 NA</td> <td>1.003-1.030</td> </tr> <tr> <td>UA Collection type</td> <td>Clean Catch NA</td> < td /> </tr> <tr> <td>Urobilinogen</td> <td> Negative mg/dL</td> <td><1.0</td> </tr> <tr> <th colspan="10"> Screen, Urine NPT - 02/09/17 09:17</th> </tr> <tr> <td> Screen, Urine NPT</td> <td> Negative NA</td> <td /> </tr> <tr> <th colspan= "10">CBC With Platelet and Differential - 02/09/17 09:54</th> </tr> <tr> <td>Absolute Basophils</td> <td>0.03 10*3/uL</td> <td>0.00-0.20</td> </tr> <tr> <td>Absolute Eosinophils</td> <td>0.31 10*3/uL</td> <td>0.00-0.50</td> </tr> <tr> <td>Absolute Lymphocytes</td> <td>1.67 10*3/uL</td> <td>0.80-3.30</td> </tr> <tr> <td> Absolute Monocytes</td> <td>0.41 10*3/uL</td> <td>0.30-1.00</ td> </tr> <tr> <td>Absolute Neutrophils</td> <td >3.14 10*3/uL</td> <td>1.90-7.00</td> </tr> <tr> <td>Basophils</td> <td>1 %</td> <td>0-2</td> </tr > <tr> <td>Eosinophils</td> <td>6 %</td> < td>0-4</td> </tr> <tr> <td>HCT</td> <td>35.6 &# 37;</td> <td>37.0-47.0</td> </tr> <tr> <td>HGB</ td> <td>11.6 g/dL</td> <td>12.0-16.0</td> </tr> <tr> <td>Immature Granulocytes</td> <td>0.4 %</td> <td>0.0-1.0</td> </tr> <tr> <td>Lymphocytes</td> <td>30 %</td> <td>20-46</td> </tr> <tr> <td>MCH</td> <td>29.9 pg</td> <td>27.0-32.0</td> </tr > <tr> <td>MCHC</td> <td>32.6 g/dL</td> <td> 32.0-36.0</td> </tr> <tr> <td>MCV</td> <td>91.8 fL</td> <td>82.0-99.0</td> </tr> <tr> <td> Monocytes</td> <td>7 %</td> <td>4-11</td> </tr> <tr> <td>MPV</td> <td>10.0 fL</td> <td>9.4-12.4< /td> </tr> <tr> <td>Neutrophils</td> <td>56 &#37 ;</td> <td>51-75</td> </tr> <tr> <td>Nucleated RBC Automated</td> <td>0.0 /100 WBC</td> <td /> </tr> <tr> <td>Platelet Count</td> <td>271 K/uL</td> <td>150-400</td> </tr> <tr> <td>RBC</td> <td> 3.88 10*6/uL</td> <td>4.00-5.20</td> </tr> <tr> <td>RDW</td> <td>13.9 %</td> <td>11.5-14.5</td> </ tr> <tr> <td>WBC</td> <td>5.6 K/uL</td> <td> 4.8-10.8</td> </tr> <tr> <th colspan="10">Urinalysis with reflex microscopic - 05/24/17 09:43</th> </tr> <tr> <td>Appearance</td> <td>Clear NA</td> <td /> </tr> <tr> <td>Bilirubin</td> <td>Negative NA</td> <td> Negative</td> </tr> <tr> <td>Blood</td> <td> Negative NA</td> <td>Negative</td> </tr> <tr> < td>Color</td> <td>Yellow NA</td> <td /> </tr> < tr> <td>Glucose, Urine</td> <td>Negative </td> <td> Negative</td> </tr> <tr> <td>Ketones</td> <td> Negative </td> <td>Negative</td> </tr> <tr> <td> Leukocyte Esterase</td> <td>Negative NA</td> <td>Negative</td > </tr> <tr> <td>Nitrites</td> <td>Negative NA</ td> <td>Negative</td> </tr> <tr> <td>pH</td> <td>5.0 NA</td> <td>5.0-8.0</td> </tr> <tr> <td>Protein</td> <td>Negative NA</td> <td>Negative</td> </tr> <tr> <td>Specific [place]</td> <td>1.015 NA </td> <td>1.003-1.030</td> </tr> <tr> <td>UA Collection type</td> <td>Clean Catch NA</td> <td /> </ tr> <tr> <td>Urobilinogen</td> <td>Negative mg/dL</td> <td><1.0</td> </tr> <tr> <th colspan="10"> Screen, Urine - 05/24/17 09:55</th> </tr> <tr> <td> Screen, Urine</td> <td>Negative NA</td> <td /> </tr> <tr> <th colspan="10">Chem 8 NPT - 05/24/17 10:22</ th> </tr> <tr> <td>Anion Gap</td> <td>13 mEq/L</ td> <td>3-20</td> </tr> <tr> <td>BUN Venous</td > <td>12 mg/dl</td> <td>4-20</td> </tr> <tr> <td>Calcium Ionized Venous</td> <td>1.13 mmol/L</td> < td>1.19-1.41</td> </tr> <tr> <td>Creatinine Venous</td> <td>0.7 mg/dL</td> <td>0.4-1.0</td> </tr> <tr> <td>Glucose Venous</td> <td>80 mg/dL</td> <td>70-100< /td> </tr> <tr> <td>Potassium, WB</td> <td>3.9 mEq/L</td> <td>3.6-5.1</td> </tr> <tr> <td> Sodium Venous</td> <td>140 mEq/L</td> <td>136-144</td> </tr> <tr> <td>Total CO2 Venous</td> <td>21 mEq/L</td> <td>25-29</td> </tr> <tr> <td>Venous CL</td> <td>106 mEq/L</td> <td>99-109</td> </tr> <tr> <td>HCT Venous</td> <td>41.0 %</td> <td>37.0-47.0</ td> </tr> <tr> <td>HGB Venous NPT</td> <td>13.9 g/dL</td> <td>12.0-16.0</td> </tr> <tr> <th colspan="10"> Screen, Urine NPT - 06/11/17 11:20</th> </tr> <tr> <td> Screen, Urine NPT</td> <td>Negative NA< /td> <td /> </tr> <tr> <th colspan="10"> URINALYSIS, ROUTINE - 06/11/17 19:12</th> </tr> <tr> <td> UA LEUKOCYTE ESTERASE DIPSTICK</td> <td>NEGATIVE </td> <td> NEGATIVE</td> </tr> <tr> <td>UA NITRITE DIPSTICK</td> <td>NEGATIVE </td> <td>NEGATIVE</td> </tr> <tr> <td>UA PROTEIN DIPSTICK</td> <td>NEGATIVE </td> <td> NEGATIVE</td> </tr> <tr> <td>UA GLUCOSE DIPSTICK</td> <td>NEGATIVE </td> <td>NEGATIVE</td> </tr> <tr> <td>UA KETONE DIPSTICK</td> <td>NEGATIVE </td> <td> NEGATIVE</td> </tr> <tr> <td>UA UROBILINOGEN DIPSTICK</td > <td>NORMAL </td> <td>NORMAL</td> </tr> <tr> <td>UA BILIRUBIN DIPSTICK</td> <td>NEGATIVE </td> <td> NEGATIVE</td> </tr> <tr> <td>UA BLOOD DIPSTICK</td> <td>NEGATIVE </td> <td>NEGATIVE</td> </tr> <tr> <td>UA SPECIFIC GRAVITY</td> <td>1.015 </td> <td>1.015- 1.025</td> </tr> <tr> <td>UR PH</td> <td>6.5 </ td> <td>5.0-7.0</td> </tr> <tr> <th colspan="10 ">UR TEST - 06/11/17 19:12</th> </tr> <tr> <td> UR TEST</td> <td>NEGATIVE </td> <td>NEGATIVE</td> </tr> <tr> <th colspan="10">CHLAMYDIA DNA BY PCR - 19:12</th> </tr> <tr> <td>Microbiology</td> < td> </td> <td /> </tr> <tr> <th colspan="10"> TEST, SERUM - 06/11/17 20:28</th> </tr> <tr> < td> TEST, SERUM</td> <td>NEGATIVE </td> <td>NEGATIVE< /td> </tr> <tr> <th colspan="10">RAPID PLASMA REAGIN - 20:28</th> </tr> <tr> <td>RAPID PLASMA REAGIN</td > <td>NONREACTIVE </td> <td>NONREACTIVE</td> </tr> <tr> <th colspan="10">HIV - 06/11/17 20:28</th> </tr> <tr> <td>AB HIV 1 2</td> <td>NEGATIVE </td> <td> NEGATIVE</td> </tr> <tr> <td>HIV 1 P24 AG</td> < td>NEGATIVE </td> <td>NEGATIVE</td> </tr> <tr> < th colspan="10">[place] - 06/11/17 20:32</th> </tr> <tr> <td>Microbiology</td> <td> </td> <td /> </tr> <tr> <th colspan="10">GRAM STAIN - CHLAMYDIA DNA BY PCR - 06/11/17 20 :32</th> </tr> <tr> <td>Microbiology</td> <td> < /td> <td /> </tr> <tr> <th colspan="10">CBC With Platelet and Differential - 08/03/17 11:34</th> </tr> <tr> <td>Absolute Basophils</td> <td>0.06 10*3/uL</td> <td> 0.00-0.20</td> </tr> <tr> <td>Absolute Eosinophils</td> <td>0.46 10*3/uL</td> <td>0.00-0.50</td> </tr> < tr> <td>Absolute Lymphocytes</td> <td>2.05 10*3/uL</td> <td>0.80-3.30</td> </tr> <tr> <td>Absolute Monocytes< /td> <td>0.53 10*3/uL</td> <td>0.30-1.00</td> </tr> <tr> <td>Absolute Neutrophils</td> <td>4.64 10*3/uL</td> <td>1.90-7.00</td> </tr> <tr> <td>Basophils</td > <td>1 %</td> <td>0-2</td> </tr> <tr> <td>Eosinophils</td> <td>6 %</td> <td>0-4</td> </tr> <tr> <td>HCT</td> <td>38.9 %</td> <td>37.0-47.0</td> </tr> <tr> <td>HGB</td> <td> 13.4 g/dL</td> <td>12.0-16.0</td> </tr> <tr> <td >Immature Granulocytes</td> <td>0.1 %</td> <td>0.0-1.0</td > </tr> <tr> <td>Lymphocytes</td> <td>27 %</ td> <td>20-46</td> </tr> <tr> <td>MCH</td> <td>31.2 pg</td> <td>27.0-32.0</td> </tr> <tr> <td>MCHC</td> <td>34.4 g/dL</td> <td>32.0-36.0</td> </tr> <tr> <td>MCV</td> <td>90.7 fL</td> < td>82.0-99.0</td> </tr> <tr> <td>Monocytes</td> <td>7 %</td> <td>4-11</td> </tr> <tr> <td> MPV</td> <td>10.9 fL</td> <td>9.4-12.4</td> </tr> <tr> <td>Neutrophils</td> <td>60 %</td> <td>51 -75</td> </tr> <tr> <td>Nucleated RBC Automated</td> <td>0.0 /100 WBC</td> <td /> </tr> <tr> < td>Platelet Count</td> <td>255 K/uL</td> <td>150-400</td> </tr> <tr> <td>RBC</td> <td>4.29 10*6/uL</td> <td>4.00-5.20</td> </tr> <tr> <td>RDW</td> <td>13.6 %</td> <td>11.5-14.5</td> </tr> <tr> <td>WBC</td> <td>7.8 K/uL</td> <td>4.8-10.8</td> </ tr> <tr> <th colspan="10">Comprehensive Metabolic Panel (CMP) - 08/03/17 11:34</th> </tr> <tr> <td>Albumin</td> <td>4.2 g/dL</td> <td>3.5-4.8</td> </tr> <tr> < td>Alkaline Phosphatase</td> <td>57 U/L</td> <td>26-104</td> </tr> <tr> <td>ALT (SGPT)</td> <td>12 U/L</td> <td>14-54</td> </tr> <tr> <td>Anion Gap</td> <td>7 mEq/L</td> <td>3-20</td> </tr> <tr> <td>AST (SGOT)</td> <td>12 U/L</td> <td>15-41</td> </ tr> <tr> <td>Bilirubin Total</td> <td>0.5 mg/dL</td> <td>0.2-1.2</td> </tr> <tr> <td>BUN</td> <td>6 mg/dL</td> <td>4-20</td> </tr> <tr> <td> Calcium</td> <td>9.3 mg/dL</td> <td>8.6-10.0</td> </tr > <tr> <td>Chloride</td> <td>108 mEq/L</td> < td>99-109</td> </tr> <tr> <td>CO2</td> <td>23 mEq/L</td> <td>22-32</td> </tr> <tr> <td> Creatinine</td> <td>0.73 mg/dL</td> <td>0.44-1.03</td> </tr> <tr> <td>Globulin</td> <td>2.8 g/dL</td> <td>1.9-4.3</td> </tr> <tr> <td>Glucose</td> < td>89 mg/dL</td> <td>70-100</td> </tr> <tr> <td> Potassium</td> <td>3.6 mEq/L</td> <td>3.6-5.1</td> </tr > <tr> <td>Protein</td> <td>7.0 g/dL</td> <td> 6.1-7.9</td> </tr> <tr> <td>Sodium</td> <td>138 mEq/L</td> <td>136-144</td> </tr> <tr> <th colspan="10">Lipase - 08/03/17 11:34</th> </tr> <tr> <td> Lipase</td> <td>20 U/L</td> <td>8-48</td> </tr> <tr> <th colspan="10">eGFR - 08/03/17 11:34</th> </tr> < tr> <td>eGFR</td> <td>>60 mL/min</td> <td>>60</ td> </tr> <tr> <th colspan="10">Urinalysis with reflex microscopic - 08/03/17 11:34</th> </tr> <tr> <td> Appearance</td> <td>Turbid NA</td> <td /> </tr> <tr> <td>Bilirubin</td> <td>Negative NA</td> <td> Negative</td> </tr> <tr> <td>Blood</td> <td>Pos 1+ NA</td> <td>Negative</td> </tr> <tr> <td> Color</td> <td>Aliza NA</td> <td /> </tr> <tr> <td>Glucose, Urine</td> <td>Negative </td> <td> Negative</td> </tr> <tr> <td>Ketones</td> <td> Negative </td> <td>Negative</td> </tr> <tr> <td> Leukocyte Esterase</td> <td>Pos 3+ NA</td> <td>Negative</td> </tr> <tr> <td>Nitrites</td> <td>Negative NA</td > <td>Negative</td> </tr> <tr> <td>pH</td> <td>7.0 NA</td> <td>5.0-8.0</td> </tr> <tr> <td>Protein</td> <td>Pos 2+ NA</td> <td>Negative</td> </tr> <tr> <td>Specific [place]</td> <td>1.015 NA</td > <td>1.003-1.030</td> </tr> <tr> <td>UA Collection type</td> <td>Clean Catch NA</td> <td /> </ tr> <tr> <td>Urobilinogen</td> <td>Negative mg/dL</td> <td><1.0</td> </tr> <tr> < colspan="10"> Urine Microscopic - 08/03/17 11:34</th> </tr> <tr> <td> Trichomonas</td> <td>Present NA</td> <td /> </tr> <tr> <td>Bacteria</td> <td>Moderate NA</td> <td / > </tr> <tr> <td>Epithelial Cells</td> <td>10 / HPF</td> <td /> </tr> <tr> <td>RBC, Urine</td> <td>2 /HPF</td> <td>0-2</td> </tr> <tr> <td>Urine Mucus</td> <td>Present NA</td> <td /> </tr > <tr> <td>WBC, Urine</td> <td>10 /HPF</td> < td>0-4</td> </tr> <tr> <th colspan="10"> Screen , Urine NPT - 08/03/17 11:39</th> </tr> <tr> <td> Screen, Urine NPT</td> <td>Negative NA</td> <td /> </tr> <tr> < colspan="10"> Screen, Urine - 11:26</th> </tr> <tr> <td> Screen, Urine</ td> <td>Negative NA</td> <td /> </tr> <tr> < colspan="10">Urinalysis with reflex microscopic - 08/05/17 11:26</th> </tr> <tr> <td>Appearance</td> <td>Sl Cloudy NA< /td> <td /> </tr> <tr> <td>Bilirubin</td> <td>Negative NA</td> <td>Negative</td> </tr> <tr> <td>Blood</td> <td>Negative NA</td> <td>Negative</td> </tr> <tr> <td>Color</td> <td>Aliza NA</td> <td /> </tr> <tr> <td>Glucose, Urine</td> <td>Negative </td> <td>Negative</td> </tr> <tr> <td>Ketones</td> <td>Trace </td> <td>Negative</td> </tr > <tr> <td>Leukocyte Esterase</td> <td>Pos 3+ NA</td> <td>Negative</td> </tr> <tr> <td>Nitrites</td> <td>Positive NA</td> <td>Negative</td> </tr> <tr > <td>pH</td> <td>5.0 NA</td> <td>5.0-8.0</td> </tr> <tr> <td>Protein</td> <td>Negative NA</td> <td>Negative</td> </tr> <tr> <td>Specific [place]</ td> <td>1.010 NA</td> <td>1.003-1.030</td> </tr> <tr> <td>UA Collection type</td> <td>Clean Catch NA</td> <td /> </tr> <tr> <td>Urobilinogen</td> < td>2.0 mg/dL</td> <td><1.0</td> </tr> <tr> < colspan="10">Urine Microscopic - 08/05/17 11:26</th> </tr> <tr > <td>Bacteria</td> <td>Occasional NA</td> <td /> </tr> <tr> <td>Epithelial Cells</td> <td>2 /HPF</ td> <td /> </tr> <tr> <td>RBC, Urine</td> <td>0 /HPF</td> <td>0-2</td> </tr> <tr> <td> Urine Mucus</td> <td>Present NA</td> <td /> </tr> <tr> <td>WBC, Urine</td> <td>10 /HPF</td> <td>0-4< /td> </tr> <tr> < colspan="10">Urine Drug Screen - 11:26</th> </tr> <tr> <td>Amph/Meth/Ecstasy</td> <td>Positive NA</td> <td /> </tr> <tr> < td>Barbiturates</td> <td>Negative NA</td> <td /> </tr> <tr> <td>Benzodiazepine</td> <td>Negative NA</td> <td /> </tr> <tr> <td>Cannabinoid</td> <td >Positive NA</td> <td /> </tr> <tr> <td>Cocaine< /td> <td>Negative NA</td> <td /> </tr> <tr> <td>EDDP (Methadone met.)</td> <td>Negative NA</td> <td /> </tr> <tr> <td>Opiate</td> <td>Negative NA</ td> <td /> </tr> <tr> <td>Phencyclidine (PCP)</ td> <td>Negative NA</td> <td /> </tr> <tr> <th colspan="10">URINALYSIS, ROUTINE - 10/16/17 23:55</th> </tr> <tr> <td>UA LEUKOCYTE ESTERASE DIPSTICK</td> <td> NEGATIVE </td> <td>NEGATIVE</td> </tr> <tr> <td> UA NITRITE DIPSTICK</td> <td>NEGATIVE </td> <td>NEGATIVE</td> </tr> <tr> <td>UA PROTEIN DIPSTICK</td> <td> NEGATIVE </td> <td>NEGATIVE</td> </tr> <tr> <td> UA GLUCOSE DIPSTICK</td> <td>NEGATIVE </td> <td>NEGATIVE</td> </tr> <tr> <td>UA KETONE DIPSTICK</td> <td> NEGATIVE </td> <td>NEGATIVE</td> </tr> <tr> <td> UA UROBILINOGEN DIPSTICK</td> <td>NORMAL </td> <td>NORMAL</td > </tr> <tr> <td>UA BILIRUBIN DIPSTICK</td> <td> NEGATIVE </td> <td>NEGATIVE</td> </tr> <tr> <td> UA BLOOD DIPSTICK</td> <td>NEGATIVE </td> <td>NEGATIVE</td> </tr> <tr> <td>UA SPECIFIC GRAVITY</td> <td>>= 1.030 </td> <td>1.015-1.025</td> </tr> <tr> <td> UR PH</td> <td>5.5 </td> <td>5.0-7.0</td> </tr> <tr> <th colspan="10">UR TEST - 10/16/17 23:55</th> </ tr> <tr> <td>UR TEST</td> <td>NEGATIVE </td> <td>NEGATIVE</td> </tr> <tr> <th colspan="10"> Screen, Urine - 11/21/17 00:00</th> </tr> <tr> <td> Screen, Urine</td> <td>Negative NA</td> <td /> </tr> <tr> <th colspan="10">CBC With Platelet and Differential - 11/21/17 01:06</th> </tr> <tr> <td> Absolute Basophils</td> <td>0.03 10*3/uL</td> <td>0.00-0.20</ td> </tr> <tr> <td>Absolute Eosinophils</td> <td >0.49 10*3/uL</td> <td>0.00-0.50</td> </tr> <tr> <td>Absolute Lymphocytes</td> <td>2.01 10*3/uL</td> <td>0.80 -3.30</td> </tr> <tr> <td>Absolute Monocytes</td> <td>0.72 10*3/uL</td> <td>0.30-1.00</td> </tr> <tr> <td>Absolute Neutrophils</td> <td>5.63 10*3/uL</td> < td>1.90-7.00</td> </tr> <tr> <td>Basophils</td> <td>0 %</td> <td>0-2</td> </tr> <tr> <td> Eosinophils</td> <td>6 %</td> <td>0-4</td> </tr> <tr> <td>HCT</td> <td>36.1 %</td> <td>37.0- 47.0</td> </tr> <tr> <td>HGB</td> <td>12.3 g/dL< /td> <td>12.0-16.0</td> </tr> <tr> <td>Immature Granulocytes</td> <td>0.2 %</td> <td>0.0-1.0</td> < /tr> <tr> <td>Lymphocytes</td> <td>23 %</td> <td>20-46</td> </tr> <tr> <td>MCH</td> <td> 31.3 pg</td> <td>27.0-32.0</td> </tr> <tr> <td> MCHC</td> <td>34.1 g/dL</td> <td>32.0-36.0</td> </tr> <tr> <td>MCV</td> <td>91.9 fL</td> <td>82.0- 99.0</td> </tr> <tr> <td>Monocytes</td> <td>8 &# 37;</td> <td>4-11</td> </tr> <tr> <td>MPV</td> <td>10.1 fL</td> <td>9.4-12.4</td> </tr> <tr> <td>Neutrophils</td> <td>63 %</td> <td>51-75</td> </tr> <tr> <td>Nucleated RBC Automated</td> <td >0.0 /100 WBC</td> <td /> </tr> <tr> <td> Platelet Count</td> <td>240 K/uL</td> <td>150-400</td> </tr> <tr> <td>RBC</td> <td>3.93 10*6/uL</td> <td>4.00-5.20</td> </tr> <tr> <td>RDW</td> <td> 12.9 %</td> <td>11.5-14.5</td> </tr> <tr> < td>WBC</td> <td>8.9 K/uL</td> <td>4.8-10.8</td> </tr> <tr> < colspan="10">Urinalysis with reflex microscopic - 11/21 01:06</th> </tr> <tr> <td>Appearance</td> < td>Sl Cloudy NA</td> <td /> </tr> <tr> <td> Bilirubin</td> <td>Positive NA</td> <td>Negative</td> < /tr> <tr> <td>Blood</td> <td>Negative NA</td> <td>Negative</td> </tr> <tr> <td>Color</td> <td> Aliza NA</td> <td /> </tr> <tr> <td>Glucose, Urine</td> <td>Negative </td> <td>Negative</td> </tr> <tr> <td>Ketones</td> <td>Trace </td> <td> Negative</td> </tr> <tr> <td>Leukocyte Esterase</td> <td>Negative NA</td> <td>Negative</td> </tr> <tr> <td>Nitrites</td> <td>Negative NA</td> <td>Negative</ td> </tr> <tr> <td>pH</td> <td>5.0 NA</td> <td>5.0-8.0</td> </tr> <tr> <td>Protein</td> <td>Pos 2+ NA</td> <td>Negative</td> </tr> <tr> <td>Specific [place]</td> <td>1.045 NA</td> <td>1.003- 1.030</td> </tr> <tr> <td>UA Collection type</td> <td>Catheter NA</td> <td /> </tr> <tr> <td> Urobilinogen</td> <td>Negative mg/dL</td> <td><1.0</td> </tr> <tr> < colspan="10">Urine Microscopic - 11/21/17 01 :06</th> </tr> <tr> <td>Epithelial Cells</td> < td>2 /HPF</td> <td /> </tr> <tr> <td>Hyaline Casts</td> <td>7 /LPF</td> <td>0-3</td> </tr> < tr> <td>RBC, Urine</td> <td>0 /HPF</td> <td>0-2</td> </tr> <tr> <td>Urine Mucus</td> <td>Present NA< /td> <td /> </tr> <tr> <td>WBC, Urine</td> <td>2 /HPF</td> <td>0-4</td> </tr> <tr> < colspan="10">Urine Drug Screen - 11/21/17 01:06</th> </tr> <tr > <td>Amph/Meth/Ecstasy</td> <td>Positive NA</td> < td /> </tr> <tr> <td>Barbiturates</td> <td> Negative NA</td> <td /> </tr> <tr> <td> Benzodiazepine</td> <td>Negative NA</td> <td /> </tr> <tr> <td>Cannabinoid</td> <td>Negative NA</td> <td /> </tr> <tr> <td>Cocaine</td> <td> Negative NA</td> <td /> </tr> <tr> <td>EDDP ( Methadone met.)</td> <td>Negative NA</td> <td /> </tr> <tr> <td>Opiate</td> <td>Negative NA</td> < td /> </tr> <tr> <td>Phencyclidine (PCP)</td> < td>Negative NA</td> <td /> </tr> <tr> < colspan="10">Salicylate - 11/21/17 01:06</th> </tr> <tr> <td>Salicylate</td> <td><4 mg/dL</td> <td>0-30</td> </tr> <tr> <th colspan="10">Acetaminophen - 11/21/17 01:06</th> </tr> <tr> <td>Acetaminophen</td> <td>277 mcg/ mL</td> <td>10-30</td> </tr> <tr> <th colspan= "10">Comprehensive Metabolic Panel (CMP) - 11/21/17 01:06</th> </tr> <tr> <td>Albumin</td> <td>3.9 g/dL</td> <td>3.5- 4.8</td> </tr> <tr> <td>Alkaline Phosphatase</td> <td>61 U/L</td> <td>26-104</td> </tr> <tr> < td>ALT (SGPT)</td> <td>19 U/L</td> <td>14-54</td> </tr > <tr> <td>Anion Gap</td> <td>9 mEq/L</td> <td >3-20</td> </tr> <tr> <td>AST (SGOT)</td> <td> 22 U/L</td> <td>15-41</td> </tr> <tr> <td> Bilirubin Total</td> <td>0.9 mg/dL</td> <td>0.2-1.2</td> </tr> <tr> <td>BUN</td> <td>11 mg/dL</td> < td>4-20</td> </tr> <tr> <td>Calcium</td> <td> 8.5 mg/dL</td> <td>8.6-10.0</td> </tr> <tr> <td> Chloride</td> <td>110 mEq/L</td> <td>99-109</td> </tr> <tr> <td>CO2</td> <td>21 mEq/L</td> <td>22-32 </td> </tr> <tr> <td>Creatinine</td> <td>0.83 mg /dL</td> <td>0.44-1.03</td> </tr> <tr> <td> Globulin</td> <td>2.7 g/dL</td> <td>1.9-4.3</td> </tr> <tr> <td>Glucose</td> <td>90 mg/dL</td> <td> 70-100</td> </tr> <tr> <td>Potassium</td> <td> 3.5 mEq/L</td> <td>3.6-5.1</td> </tr> <tr> <td> Protein</td> <td>6.6 g/dL</td> <td>6.1-7.9</td> </tr> <tr> <td>Sodium</td> <td>140 mEq/L</td> <td> 136-144</td> </tr> <tr> <th colspan="10">Alcohol, Blood - 11/21/17 01:06</th> </tr> <tr> <td>Alcohol, Blood</td> <td>Not Detected mg/dL</td> <td /> </tr> <tr> <th colspan="10">eGFR - 11/21/17 01:06</th> </tr> <tr> <td>eGFR</td> <td>>60 mL/min</td> <td>>60</td> </tr> <tr> <th colspan="10">CBC With Platelet No Differential - 11/21/17 11:53</th> </tr> <tr> <td>HCT</td > <td>36.8 %</td> <td>37.0-47.0</td> </tr> < tr> <td>HGB</td> <td>12.7 g/dL</td> <td>12.0-16.0</td > </tr> <tr> <td>MCH</td> <td>31.8 pg</td> <td>27.0-32.0</td> </tr> <tr> <td>MCHC</td> <td>34.5 g/dL</td> <td>32.0-36.0</td> </tr> <tr> <td>MCV</td> <td>92.0 fL</td> <td>82.0-99.0</td> </ tr> <tr> <td>MPV</td> <td>10.7 fL</td> <td>9.4 -12.4</td> </tr> <tr> <td>Platelet Count</td> < td>266 K/uL</td> <td>150-400</td> </tr> <tr> <td >RBC</td> <td>4.00 10*6/uL</td> <td>4.00-5.20</td> </tr > <tr> <td>RDW</td> <td>13.0 %</td> <td> 11.5-14.5</td> </tr> <tr> <td>WBC</td> <td>7.3 K /uL</td> <td>4.8-10.8</td> </tr> <tr> <th colspan="10">Protime (INR) - 11/21/17 11:53</th> </tr> <tr> <td>INR</td> <td>1.3 NA</td> <td>0.9-1.2</td> </tr > <tr> <th colspan="10">Comprehensive Metabolic Panel (CMP) - 11:53</th> </tr> <tr> <td>Albumin</td> < td>3.3 g/dL</td> <td>3.5-4.8</td> </tr> <tr> <td >Alkaline Phosphatase</td> <td>50 U/L</td> <td>26-104</td> </tr> <tr> <td>ALT (SGPT)</td> <td>18 U/L</td> <td>14-54</td> </tr> <tr> <td>Anion Gap</td> <td>9 mEq/L</td> <td>3-20</td> </tr> <tr> < td>AST (SGOT)</td> <td>16 U/L</td> <td>15-41</td> </tr > <tr> <td>Bilirubin Total</td> <td>0.5 mg/dL</td> <td>0.2-1.2</td> </tr> <tr> <td>BUN</td> < td>8 mg/dL</td> <td>4-20</td> </tr> <tr> <td> Calcium</td> <td>8.3 mg/dL</td> <td>8.6-10.0</td> </tr > <tr> <td>Chloride</td> <td>109 mEq/L</td> < td>99-109</td> </tr> <tr> <td>CO2</td> <td>21 mEq/L</td> <td>22-32</td> </tr> <tr> <td> Creatinine</td> <td>0.68 mg/dL</td> <td>0.44-1.03</td> </tr> <tr> <td>Globulin</td> <td>2.3 g/dL</td> <td>1.9-4.3</td> </tr> <tr> <td>Glucose</td> < td>104 mg/dL</td> <td>70-100</td> </tr> <tr> <td >Potassium</td> <td>3.4 mEq/L</td> <td>3.6-5.1</td> </ tr> <tr> <td>Protein</td> <td>5.6 g/dL</td> < td>6.1-7.9</td> </tr> <tr> <td>Sodium</td> <td> 139 mEq/L</td> <td>136-144</td> </tr> <tr> <th colspan="10">Acetaminophen - 11/21/17 11:53</th> </tr> <tr> <td>Acetaminophen</td> <td>45 mcg/mL</td> <td>10-30</td> </tr> <tr> <th colspan="10">eGFR - 11/21/17 11:53</th> </tr> <tr> <td>eGFR</td> <td>>60 mL/min</td> <td>>60</td> </tr> <tr> <th colspan="10"> Comprehensive Metabolic Panel (CMP) - 11/21/17 21:45</th> </tr> < tr> <td>Albumin</td> <td>3.2 g/dL</td> <td>3.5-4.8</ td> </tr> <tr> <td>Alkaline Phosphatase</td> <td >45 U/L</td> <td>26-104</td> </tr> <tr> <td>ALT (SGPT)</td> <td>17 U/L</td> <td>14-54</td> </tr> <tr> <td>Anion Gap</td> <td>6 mEq/L</td> <td>3-20</ td> </tr> <tr> <td>AST (SGOT)</td> <td>14 U/L</ td> <td>15-41</td> </tr> <tr> <td>Bilirubin Total</td> <td>0.8 mg/dL</td> <td>0.2-1.2</td> </tr> <tr> <td>BUN</td> <td>5 mg/dL</td> <td>4-20</td > </tr> <tr> <td>Calcium</td> <td>8.0 mg/dL</td > <td>8.6-10.0</td> </tr> <tr> <td>Chloride</td > <td>109 mEq/L</td> <td>99-109</td> </tr> <tr> <td>CO2</td> <td>23 mEq/L</td> <td>22-32</td> </tr> <tr> <td>Creatinine</td> <td>0.78 mg/dL</td> <td>0.44-1.03</td> </tr> <tr> <td>Globulin</td> <td>2.3 g/dL</td> <td>1.9-4.3</td> </tr> <tr> <td>Glucose</td> <td>99 mg/dL</td> <td>70-100</td> </tr> <tr> <td>Potassium</td> <td>3.0 mEq/L</td> <td>3.6-5.1</td> </tr> <tr> <td>Protein</td> <td>5.5 g/dL</td> <td>6.1-7.9</td> </tr> <tr> <td>Sodium</td> <td>138 mEq/L</td> <td>136-144</td> </tr> <tr> < colspan="10">Acetaminophen - 11/21/17 21:45</ th> </tr> <tr> <td>Acetaminophen</td> <td>< 10 mcg/mL</td> <td>10-30</td> </tr> <tr> < colspan="10">eGFR - 11/21/17 21:45</th> </tr> <tr> <td> eGFR</td> <td>>60 mL/min</td> <td>>60</td> </tr> <tr> <th colspan="10">CBC With Platelet No Differential - 11/22 03:03</th> </tr> <tr> <td>HCT</td> <td>35.8 %</td> <td>37.0-47.0</td> </tr> <tr> <td>HGB </td> <td>11.9 g/dL</td> <td>12.0-16.0</td> </tr> <tr> <td>MCH</td> <td>30.7 pg</td> <td>27.0-32.0</ td> </tr> <tr> <td>MCHC</td> <td>33.2 g/dL</td> <td>32.0-36.0</td> </tr> <tr> <td>MCV</td> <td>92.5 fL</td> <td>82.0-99.0</td> </tr> <tr> <td>MPV</td> <td>10.5 fL</td> <td>9.4-12.4</td> < /tr> <tr> <td>Platelet Count</td> <td>196 K/uL</td> <td>150-400</td> </tr> <tr> <td>RBC</td> <td>3.87 10*6/uL</td> <td>4.00-5.20</td> </tr> <tr> <td>RDW</td> <td>13.1 %</td> <td>11.5-14.5</td> </tr> <tr> <td>WBC</td> <td>5.1 K/uL</td> < td>4.8-10.8</td> </tr> <tr> <th colspan="10"> Comprehensive Metabolic Panel (CMP) - 11/22/17 03:03</th> </tr> < tr> <td>Albumin</td> <td>3.2 g/dL</td> <td>3.5-4.8</ td> </tr> <tr> <td>Alkaline Phosphatase</td> <td >45 U/L</td> <td>26-104</td> </tr> <tr> <td>ALT (SGPT)</td> <td>18 U/L</td> <td>14-54</td> </tr> <tr> <td>Anion Gap</td> <td>6 mEq/L</td> <td>3-20</ td> </tr> <tr> <td>AST (SGOT)</td> <td>15 U/L</ td> <td>15-41</td> </tr> <tr> <td>Bilirubin Total</td> <td>0.9 mg/dL</td> <td>0.2-1.2</td> </tr> <tr> <td>BUN</td> <td>6 mg/dL</td> <td>4-20</td > </tr> <tr> <td>Calcium</td> <td>8.2 mg/dL</td > <td>8.6-10.0</td> </tr> <tr> <td>Chloride</td > <td>111 mEq/L</td> <td>99-109</td> </tr> <tr> <td>CO2</td> <td>22 mEq/L</td> <td>22-32</td> </tr> <tr> <td>Creatinine</td> <td>0.63 mg/dL</td> <td>0.44-1.03</td> </tr> <tr> <td>Globulin</td> <td>2.3 g/dL</td> <td>1.9-4.3</td> </tr> <tr> <td>Glucose</td> <td>79 mg/dL</td> <td>70-100</td> </tr> <tr> <td>Potassium</td> <td>3.0 mEq/L</td> <td>3.6-5.1</td> </tr> <tr> <td>Protein</td> <td>5.5 g/dL</td> <td>6.1-7.9</td> </tr> <tr> <td>Sodium</td> <td>139 mEq/L</td> <td>136-144</td> </tr> <tr> < colspan="10">eGFR - 11/22/17 03:03</th> </tr> <tr> <td>eGFR</td> <td>>60 mL/min</td> <td>>60</td> </tr> <tr> < colspan="10">CBC With Platelet No Differential - 11/23/17 03:43</th> </tr> <tr> <td>HCT</td> <td>36.3 %</td> <td>37.0-47.0</td> </tr> <tr> <td>HGB</td> <td>11.8 g/dL</td> <td>12.0-16.0</td> </tr> <tr> <td>MCH</td> < td>30.8 pg</td> <td>27.0-32.0</td> </tr> <tr> < td>MCHC</td> <td>32.5 g/dL</td> <td>32.0-36.0</td> </tr > <tr> <td>MCV</td> <td>94.8 fL</td> <td>82.0- 99.0</td> </tr> <tr> <td>MPV</td> <td>10.5 fL</ td> <td>9.4-12.4</td> </tr> <tr> <td>Platelet Count</td> <td>184 K/uL</td> <td>150-400</td> </tr> <tr> <td>RBC</td> <td>3.83 10*6/uL</td> <td>4.00 -5.20</td> </tr> <tr> <td>RDW</td> <td>13.3 &#37 ;</td> <td>11.5-14.5</td> </tr> <tr> <td>WBC</td > <td>5.0 K/uL</td> <td>4.8-10.8</td> </tr> <tr > <th colspan="10">Comprehensive Metabolic Panel (CMP) - 11/23/17 03:43 </th> </tr> <tr> <td>Albumin</td> <td>3.4 g/dL</ td> <td>3.5-4.8</td> </tr> <tr> <td>Alkaline Phosphatase</td> <td>47 U/L</td> <td>26-104</td> </tr> <tr> <td>ALT (SGPT)</td> <td>24 U/L</td> <td> 14-54</td> </tr> <tr> <td>Anion Gap</td> <td>6 mEq/L</td> <td>3-20</td> </tr> <tr> <td>AST ( SGOT)</td> <td>24 U/L</td> <td>15-41</td> </tr> <tr> <td>Bilirubin Total</td> <td>0.6 mg/dL</td> <td> 0.2-1.2</td> </tr> <tr> <td>BUN</td> <td>8 mg/dL </td> <td>4-20</td> </tr> <tr> <td>Calcium</td> <td>8.3 mg/dL</td> <td>8.6-10.0</td> </tr> <tr > <td>Chloride</td> <td>111 mEq/L</td> <td>99-109</td > </tr> <tr> <td>CO2</td> <td>22 mEq/L</td> <td>22-32</td> </tr> <tr> <td>Creatinine</td> <td>0.54 mg/dL</td> <td>0.44-1.03</td> </tr> <tr> <td>Globulin</td> <td>2.1 g/dL</td> <td>1.9-4.3</td> </tr> <tr> <td>Glucose</td> <td>83 mg/dL</td> <td>70-100</td> </tr> <tr> <td>Potassium</td> <td>3.9 mEq/L</td> <td>3.6-5.1</td> </tr> <tr> <td>Protein</td> <td>5.5 g/dL</td> <td>6.1-7.9</td> </tr> <tr> <td>Sodium</td> <td>139 mEq/L</td> <td>136-144</td> </tr> <tr> <th colspan="10">eGFR - 11/23/17 03:43</th> </tr> <tr> <td>eGFR</td> < td>>60 mL/min</td> <td>>60</td> </tr> <tr> <th colspan="10">TSH with Reflex Free T4 - 11/26/17 03:43</th> </tr> <tr> <td>TSH with Reflex Free T4</td> <td>1.17 uIU/mL</ td> <td>0.35-4.94</td> </tr> <tr> < colspan= "10">Urinalysis with reflex microscopic - 12/16/17 10:10</th> </tr> <tr> <td>Appearance</td> <td>Sl Cloudy NA</td> < td /> </tr> <tr> <td>Bilirubin</td> <td> Negative NA</td> <td>Negative</td> </tr> <tr> < td>Blood</td> <td>Pos 3+ NA</td> <td>Negative</td> </tr > <tr> <td>Color</td> <td>Aliza NA</td> <td / > </tr> <tr> <td>Glucose, Urine</td> <td> Negative </td> <td>Negative</td> </tr> <tr> <td> Ketones</td> <td>Negative </td> <td>Negative</td> </tr > <tr> <td>Leukocyte Esterase</td> <td>Negative NA</td > <td>Negative</td> </tr> <tr> <td>Nitrites</td > <td>Negative NA</td> <td>Negative</td> </tr> < tr> <td>pH</td> <td>5.0 NA</td> <td>5.0-8.0</td> </tr> <tr> <td>Protein</td> <td>Negative NA</td> <td>Negative</td> </tr> <tr> <td>Specific [place] </td> <td>1.025 NA</td> <td>1.003-1.030</td> </tr> <tr> <td>UA Collection type</td> <td>Clean Catch NA</td> <td /> </tr> <tr> <td>Urobilinogen</td> <td>2.0 mg/dL</td> <td><1.0</td> </tr> <tr> < colspan="10">Urine Microscopic - 12/16/17 10:10</th> </tr> < tr> <td>Bacteria</td> <td>Rare NA</td> <td /> </tr> <tr> <td>Crystals</td> <td>Ca Ox NA</td> <td /> </tr> <tr> <td>Epithelial Cells</td> < td>0 /HPF</td> <td /> </tr> <tr> <td>RBC, Urine< /td> <td>0 /HPF</td> <td>0-2</td> </tr> <tr> <td>Urine Mucus</td> <td>Present NA</td> <td /> </tr> <tr> <td>WBC, Urine</td> <td>2 /HPF</td> <td>0-4</td> </tr> <tr> <th colspan="10">Urine Drug Screen - 12/16/17 10:10</th> </tr> <tr> <td>Tricyclics</ td> <td>Negative NA</td> <td /> </tr> <tr> <th colspan="10"> Screen, Urine NPT - 12/16/17 10:15</th> < /tr> <tr> <td> Screen, Urine NPT</td> <td> Negative NA</td> <td /> </tr> <tr> <th colspan= "10">CBC With Platelet and Differential - 12/16/17 10:44</th> </tr> <tr> <td>Absolute Basophils</td> <td>0.04 10*3/uL</td> <td>0.00-0.20</td> </tr> <tr> <td>Absolute Eosinophils</td> <td>0.32 10*3/uL</td> <td>0.00-0.50</td> </tr> <tr> <td>Absolute Lymphocytes</td> <td>1.20 10*3/uL</td> <td>0.80-3.30</td> </tr> <tr> <td> Absolute Monocytes</td> <td>0.36 10*3/uL</td> <td>0.30-1.00</ td> </tr> <tr> <td>Absolute Neutrophils</td> <td >2.23 10*3/uL</td> <td>1.90-7.00</td> </tr> <tr> <td>Basophils</td> <td>1 %</td> <td>0-2</td> </tr > <tr> <td>Eosinophils</td> <td>8 %</td> < td>0-4</td> </tr> <tr> <td>HCT</td> <td>37.0 &# 37;</td> <td>37.0-47.0</td> </tr> <tr> <td>HGB</ td> <td>12.1 g/dL</td> <td>12.0-16.0</td> </tr> <tr> <td>Immature Granulocytes</td> <td>0.2 %</td> <td>0.0-1.0</td> </tr> <tr> <td>Lymphocytes</td> <td>29 %</td> <td>20-46</td> </tr> <tr> <td>MCH</td> <td>30.6 pg</td> <td>27.0-32.0</td> </tr > <tr> <td>MCHC</td> <td>32.7 g/dL</td> <td> 32.0-36.0</td> </tr> <tr> <td>MCV</td> <td>93.4 fL</td> <td>82.0-99.0</td> </tr> <tr> <td> Monocytes</td> <td>9 %</td> <td>4-11</td> </tr> <tr> <td>MPV</td> <td>10.1 fL</td> <td>9.4-12.4< /td> </tr> <tr> <td>Neutrophils</td> <td>54 &#37 ;</td> <td>51-75</td> </tr> <tr> <td>Nucleated RBC Automated</td> <td>0.0 /100 WBC</td> <td /> </tr> <tr> <td>Platelet Count</td> <td>192 K/uL</td> <td>150-400</td> </tr> <tr> <td>RBC</td> <td> 3.96 10*6/uL</td> <td>4.00-5.20</td> </tr> <tr> <td>RDW</td> <td>13.3 %</td> <td>11.5-14.5</td> </ tr> <tr> <td>WBC</td> <td>4.2 K/uL</td> <td> 4.8-10.8</td> </tr> <tr> <th colspan="10">Comprehensive Metabolic Panel (CMP) - 12/16/17 10:44</th> </tr> <tr> < td>Albumin</td> <td>3.5 g/dL</td> <td>3.5-4.8</td> </tr > <tr> <td>Alkaline Phosphatase</td> <td>64 U/L</td> <td>26-104</td> </tr> <tr> <td>ALT (SGPT)</td> <td>209 U/L</td> <td>14-54</td> </tr> <tr> <td>Anion Gap</td> <td>8 mEq/L</td> <td>3-20</td> < /tr> <tr> <td>AST (SGOT)</td> <td>155 U/L</td> <td>15-41</td> </tr> <tr> <td>Bilirubin Total</td> <td>0.5 mg/dL</td> <td>0.2-1.2</td> </tr> <tr> <td>BUN</td> <td>8 mg/dL</td> <td>4-20</td> </tr > <tr> <td>Calcium</td> <td>8.8 mg/dL</td> <td >8.6-10.0</td> </tr> <tr> <td>Chloride</td> <td> 108 mEq/L</td> <td>99-109</td> </tr> <tr> <td> CO2</td> <td>24 mEq/L</td> <td>22-32</td> </tr> <tr> <td>Creatinine</td> <td>0.77 mg/dL</td> <td>0.44 -1.03</td> </tr> <tr> <td>Globulin</td> <td>2.3 g/dL</td> <td>1.9-4.3</td> </tr> <tr> <td> Glucose</td> <td>111 mg/dL</td> <td>70-100</td> </tr> <tr> <td>Potassium</td> <td>3.5 mEq/L</td> <td >3.6-5.1</td> </tr> <tr> <td>Protein</td> <td> 5.8 g/dL</td> <td>6.1-7.9</td> </tr> <tr> <td> Sodium</td> <td>140 mEq/L</td> <td>136-144</td> </tr> <tr> < colspan="10">Alcohol, Blood - 12/16/17 10:44</th> </tr> <tr> <td>Alcohol, Blood</td> <td>Not Detected mg/dL</td> <td /> </tr> <tr> <th colspan="10"> eGFR - 12/16/17 10:44</th> </tr> <tr> <td>eGFR</td> <td>>60 mL/min</td> <td>>60</td> </tr> <tr> <th colspan="10">Acetaminophen - 12/16/17 10:44</th> </tr> <tr> <td>Acetaminophen</td> <td><10 mcg/mL</td> <td>10-30</td> </tr> <tr> <th colspan="10">Salicylate - 12/16/17 10:44</th> </tr> <tr> <td>Salicylate</td> <td><4 mg/dL</td> <td>0-30</td> </tr> <tr> <th colspan="10">TSH with Reflex Free T4 - 12/16/17 10:44</th> </tr> <tr> <td>TSH with Reflex Free T4</td> <td>0.55 uIU/mL</ td> <td>0.35-4.94</td> </tr> <tr> <th colspan= "10">Creatine Kinase (CPK) - 12/16/17 10:44</th> </tr> <tr> <td>Creatine Kinase (CPK)</td> <td>74 U/L</td> <td>38-234< /td> </tr> <tr> <th colspan="10">Hepatitis Panel - 10:44</th> </tr> <tr> <td>Hepatitis A Antibody IGM</td > <td>Negative </td> <td /> </tr> <tr> <td>Hepatitis B Surface Antigen</td> <td>Negative </td> <td / > </tr> <tr> <th colspan="10"> Screen, Urine NPT - 01/04/18 10:25</th> </tr> <tr> <td> Screen , Urine NPT</td> <td>Negative NA</td> <td /> </tr> <tr> <th colspan="10">Urinalysis with reflex microscopic - 10:32</th> </tr> <tr> <td>Appearance</td> <td >Sl Cloudy NA</td> <td /> </tr> <tr> <td> Bilirubin</td> <td>Negative NA</td> <td>Negative</td> < /tr> <tr> <td>Blood</td> <td>Negative NA</td> <td>Negative</td> </tr> <tr> <td>Color</td> <td> Yellow NA</td> <td /> </tr> <tr> <td>Glucose, Urine</td> <td>Negative </td> <td>Negative</td> </tr> <tr> <td>Ketones</td> <td>Negative </td> <td> Negative</td> </tr> <tr> <td>Leukocyte Esterase</td> <td>Trace NA</td> <td>Negative</td> </tr> <tr> <td>Nitrites</td> <td>Negative NA</td> <td>Negative</td > </tr> <tr> <td>pH</td> <td>6.0 NA</td> <td>5.0-8.0</td> </tr> <tr> <td>Protein</td> <td>Negative NA</td> <td>Negative</td> </tr> <tr> <td>Specific [place]</td> <td>1.020 NA</td> <td>1.003-1.030 </td> </tr> <tr> <td>UA Collection type</td> <td >Voided NA</td> <td /> </tr> <tr> <td> Urobilinogen</td> <td>Negative mg/dL</td> <td><1.0</td> </tr> <tr> <th colspan="10">Urine Microscopic - 01/04/18 10 :32</th> </tr> <tr> <td>Bacteria</td> <td> Moderate NA</td> <td /> </tr> <tr> <td> Epithelial Cells</td> <td>10 /HPF</td> <td /> </tr> <tr> <td>RBC, Urine</td> <td>0 /HPF</td> <td>0-2 </td> </tr> <tr> <td>Urine Mucus</td> <td> Present NA</td> <td /> </tr> <tr> <td>WBC, Urine </td> <td>2 /HPF</td> <td>0-4</td> </tr> <tr> < colspan="10">CBC With Platelet and Differential - 01/04/18 11:28</th > </tr> <tr> <td>Absolute Basophils</td> <td> 0.03 10*3/uL</td> <td>0.00-0.20</td> </tr> <tr> <td>Absolute Eosinophils</td> <td>0.26 10*3/uL</td> <td>0.00- 0.50</td> </tr> <tr> <td>Absolute Lymphocytes</td> <td>1.96 10*3/uL</td> <td>0.80-3.30</td> </tr> <tr> <td>Absolute Monocytes</td> <td>0.43 10*3/uL</td> <td >0.30-1.00</td> </tr> <tr> <td>Absolute Neutrophils</td> <td>3.42 10*3/uL</td> <td>1.90-7.00</td> </tr> <tr> <td>Basophils</td> <td>1 %</td> <td>0-2</td > </tr> <tr> <td>Eosinophils</td> <td>4 %</ td> <td>0-4</td> </tr> <tr> <td>HCT</td> <td>36.8 %</td> <td>37.0-47.0</td> </tr> <tr> <td>HGB</td> <td>11.7 g/dL</td> <td>12.0-16.0</td> </tr> <tr> <td>Immature Granulocytes</td> <td>0.5 &# 37;</td> <td>0.0-1.0</td> </tr> <tr> <td> Lymphocytes</td> <td>32 %</td> <td>20-46</td> </tr > <tr> <td>MCH</td> <td>29.9 pg</td> <td>27.0- 32.0</td> </tr> <tr> <td>MCHC</td> <td>31.8 g/dL </td> <td>32.0-36.0</td> </tr> <tr> <td>MCV</td > <td>94.1 fL</td> <td>82.0-99.0</td> </tr> <tr > <td>Monocytes</td> <td>7 %</td> <td>4-11</td> </tr> <tr> <td>MPV</td> <td>9.4 fL</td> <td>9.4-12.4</td> </tr> <tr> <td>Neutrophils</td> <td>56 %</td> <td>51-75</td> </tr> <tr> <td>Nucleated RBC Automated</td> <td>0.0 /100 WBC</td> <td / > </tr> <tr> <td>Platelet Count</td> <td>290 K/ uL</td> <td>150-400</td> </tr> <tr> <td>RBC</td > <td>3.91 10*6/uL</td> <td>4.00-5.20</td> </tr> <tr> <td>RDW</td> <td>13.3 %</td> <td>11.5-14.5 </td> </tr> <tr> <td>WBC</td> <td>6.1 K/uL</td> <td>4.8-10.8</td> </tr> <tr> < colspan="10"> Basic Metabolic Panel (BMP) - 01/04/18 11:28</th> </tr> <tr> <td>Anion Gap</td> <td>8 mEq/L</td> <td>3-20</td> </tr> <tr> <td>BUN</td> <td>12 mg/dL</td> <td> 4-20</td> </tr> <tr> <td>Calcium</td> <td>8.3 mg /dL</td> <td>8.6-10.0</td> </tr> <tr> <td> Chloride</td> <td>104 mEq/L</td> <td>99-109</td> </tr> <tr> <td>CO2</td> <td>26 mEq/L</td> <td>22-32 </td> </tr> <tr> <td>Creatinine</td> <td>0.58 mg /dL</td> <td>0.44-1.03</td> </tr> <tr> <td> Glucose</td> <td>67 mg/dL</td> <td>70-100</td> </tr> <tr> <td>Potassium</td> <td>3.9 mEq/L</td> <td> 3.6-5.1</td> </tr> <tr> <td>Sodium</td> <td>138 mEq/L</td> <td>136-144</td> </tr> <tr> <th colspan="10">eGFR - 01/04/18 11:28</th> </tr> <tr> <td> eGFR</td> <td>>60 mL/min</td> <td>>60</td> </tr> <tr> <th colspan="10">Glucose NPT - 01/04/18 12:22</th> </tr> <tr> <td>Glucose NPT</td> <td>99 mg/dL</td> <td>70-100</td> </tr> </tbody> </table> </text> <entry > <organizer moodCode="EVN" classCode="BATTERY"> <templateId root= "[id number]" /> <id nullFlavor="NA" /> <code codeSystem="local" code="PREGU" displayName="UR TEST" /> < statusCode code="completed" /> <component> <observation moodCode= "EVN" classCode="OBS"> <templateId root="[id number].2 " /> <id nullFlavor="NA" /> <code codeSystem="local" code= "PREGU" displayName="UR TEST" /> <statusCode code="completed " /> <effectiveTime value="[id number]" /> <value unit="" xsi :type="PQ" value="POSITIVE" /> <interpretationCode codeSystem="local" code="*" /> <referenceRange> <observationRange> <text>NEGATIVE</text> </observationRange> </referenceRange > </observation> </component> </organizer> </entry> <entry> <organizer moodCode="EVN" classCode="BATTERY"> <templateId root= "216.840.1.696225.10...4.1" /> <id nullFlavor="NA" /> <code codeSystem="local" code="UA" displayName="URINALYSIS, ROUTINE" /> < statusCode code="completed" /> <component> <observation moodCode= "EVN" classCode="OBS"> <templateId root="[id number]2.4.2 " /> <id nullFlavor="NA" /> <code codeSystem="local" code= "LEUESU" displayName="UA LEUKOCYTE ESTERASE DIPSTICK" /> <statusCode code="completed" /> <effectiveTime value="[id number]" /> < value unit="" xsi:type="PQ" value="NEGATIVE" /> <referenceRange> <observationRange> <text>NEGATIVE</text> </ observationRange> </referenceRange> </observation> </ component> <component> <observation moodCode="EVN" classCode="OBS"> <templateId root="[id number]2.4.2" /> <id nullFlavor="NA" /> <code codeSystem="local" code="NITRIU" displayName= "UA NITRITE DIPSTICK" /> <statusCode code="completed" /> < effectiveTime value="[id number]" /> <value unit="" xsi:type="PQ" value="NEGATIVE" /> <referenceRange> <observationRange> <text>NEGATIVE</text> </observationRange> </ referenceRange> </observation> </component> <component> <observation moodCode="EVN" classCode="OBS"> <templateId root= "216.840.1.554804...4.2" /> <id nullFlavor="NA" /> < code codeSystem="local" code="PROTEIU" displayName="UA PROTEIN DIPSTICK" /> <statusCode code="completed" /> <effectiveTime value= "225139955667" /> <value unit="" xsi:type="PQ" value="NEGATIVE" /> <referenceRange> <observationRange> <text>NEGATIVE </text> </observationRange> </referenceRange> </ observation> </component> <component> <observation moodCode= "EVN" classCode="OBS"> <templateId root="16.840.1.820460.10...4.2 " /> <id nullFlavor="NA" /> <code codeSystem="local" code= "DGLUU" displayName="UA GLUCOSE DIPSTICK" /> <statusCode code= "completed" /> <effectiveTime value="561882774318" /> <value unit="" xsi:type="PQ" value="NEGATIVE" /> <referenceRange> < observationRange> <text>NEGATIVE</text> </ observationRange> </referenceRange> </observation> </ component> <component> <observation moodCode="EVN" classCode="OBS"> <templateId root="16.840.1.549557.10..22.4.2" /> <id nullFlavor="NA" /> <code codeSystem="local" code="KETONU" displayName= "UA KETONE DIPSTICK" /> <statusCode code="completed" /> < effectiveTime value="898190045398" /> <value unit="" xsi:type="PQ" value="NEGATIVE" /> <referenceRange> <observationRange> <text>NEGATIVE</text> </observationRange> </ referenceRange> </observation> </component> <component> <observation moodCode="EVN" classCode="OBS"> <templateId root= "11.30.840.1.243293.22.4.2" /> <id nullFlavor="NA" /> < code codeSystem="local" code="UROBILU" displayName="UA UROBILINOGEN DIPSTICK" / > <statusCode code="completed" /> <effectiveTime value= "028319404318" /> <value unit="" xsi:type="PQ" value="NORMAL" /> <referenceRange> <observationRange> <text>NORMAL</ text> </observationRange> </referenceRange> </ observation> </component> <component> <observation moodCode= "EVN" classCode="OBS"> <templateId root="216.840.1.293637.08.03.22.4.2 " /> <id nullFlavor="NA" /> <code codeSystem="local" code= "BILU" displayName="UA BILIRUBIN DIPSTICK" /> <statusCode code= "completed" /> <effectiveTime value="328707070071" /> <value unit="" xsi:type="PQ" value="NEGATIVE" /> <referenceRange> < observationRange> <text>NEGATIVE</text> </ observationRange> </referenceRange> </observation> </ component> <component> <observation moodCode="EVN" classCode="OBS"> <templateId root="2.16.840.1.828957.08.03.22.4.2" /> <id nullFlavor="NA" /> <code codeSystem="local" code="ABDELRAHMAN" displayName="UA BLOOD DIPSTICK" /> <statusCode code="completed" /> < effectiveTime value="707312045781" /> <value unit="" xsi:type="PQ" value="NEGATIVE" /> <referenceRange> <observationRange> <text>NEGATIVE</text> </observationRange> </ referenceRange> </observation> </component> <component> <observation moodCode="EVN" classCode="OBS"> <templateId root= "16.840.1.613877.10..22.4.2" /> <id nullFlavor="NA" /> < code codeSystem="local" code="SPGRU" displayName="UA SPECIFIC GRAVITY" /> <statusCode code="completed" /> <effectiveTime value="692681965160 " /> <value unit="" xsi:type="PQ" value="1.007" /> < interpretationCode codeSystem="local" code="*" /> <referenceRange> <observationRange> <text>1.015-1.025</text> </ observationRange> </referenceRange> </observation> </ component> <component> <observation moodCode="EVN" classCode="OBS"> <templateId root="11.30.840.1.262777.08.03.22.4.2" /> <id nullFlavor="NA" /> <code codeSystem="local" code="COLTON" displayName="UR PH" /> <statusCode code="completed" /> <effectiveTime value= "872500833090" /> <value unit="" xsi:type="PQ" value="5.0" /> <referenceRange> <observationRange> <text>5.0-7.0</text > </observationRange> </referenceRange> </observation > </component> </organizer> </entry> <entry> <organizer moodCode= "EVN" classCode="BATTERY"> <templateId root="16.840.1.961753.10..22.4.1 " /> <id nullFlavor="NA" /> <code codeSystem="local" code="UA" displayName="URINALYSIS, ROUTINE" /> <statusCode code="completed" /> < component> <observation moodCode="EVN" classCode="OBS"> < templateId root="11.30.840.1.132671.10..22.4.2" /> <id nullFlavor="NA " /> <code codeSystem="local" code="LEUESU" displayName="UA LEUKOCYTE ESTERASE DIPSTICK" /> <statusCode code="completed" /> < effectiveTime value="" /> <value unit="" xsi:type="PQ" value="1+" /> <interpretationCode codeSystem="local" code="*" /> <referenceRange> <observationRange> <text>NEGATIVE</ text> </observationRange> </referenceRange> </ observation> </component> <component> <observation moodCode= "EVN" classCode="OBS"> <templateId root="11.30.840.1.825012.10.4.2 " /> <id nullFlavor="NA" /> <code codeSystem="local" code= "NITRIU" displayName="UA NITRITE DIPSTICK" /> <statusCode code= "completed" /> <effectiveTime value="" /> <value unit="" xsi:type="PQ" value="NEGATIVE" /> <referenceRange> < observationRange> <text>NEGATIVE</text> </ observationRange> </referenceRange> </observation> </ component> <component> <observation moodCode="EVN" classCode="OBS"> <templateId root="11.30.840.1.570538.10..4.2" /> <id nullFlavor="NA" /> <code codeSystem="local" code="PROTEIU" displayName= "UA PROTEIN DIPSTICK" /> <statusCode code="completed" /> < effectiveTime value="" /> <value unit="" xsi:type="PQ" value="TRACE" /> <interpretationCode codeSystem="local" code="*" /> <referenceRange> <observationRange> <text> NEGATIVE</text> </observationRange> </referenceRange> </observation> </component> <component> <observation moodCode ="EVN" classCode="OBS"> <templateId root= "11.30.840.1.461297.10.4.2" /> <id nullFlavor="NA" /> < code codeSystem="local" code="DGLUU" displayName="UA GLUCOSE DIPSTICK" /> <statusCode code="completed" /> <effectiveTime value=" " /> <value unit="" xsi:type="PQ" value="NEGATIVE" /> < referenceRange> <observationRange> <text>NEGATIVE</text > </observationRange> </referenceRange> </observation > </component> <component> <observation moodCode="EVN" classCode="OBS"> <templateId root="11.30.840.1.978171.08.03.22.4.2" /> <id nullFlavor="NA" /> <code codeSystem="local" code="KETONU" displayName="UA KETONE DIPSTICK" /> <statusCode code="completed" /> <effectiveTime value="" /> <value unit="" xsi:type= "PQ" value="TRACE" /> <interpretationCode codeSystem="local" code="*" / > <referenceRange> <observationRange> <text> NEGATIVE</text> </observationRange> </referenceRange> </observation> </component> <component> <observation moodCode ="EVN" classCode="OBS"> <templateId root= "11.30.840.1.320810.08.03.22.4.2" /> <id nullFlavor="NA" /> < code codeSystem="local" code="UROBILU" displayName="UA UROBILINOGEN DIPSTICK" / > <statusCode code="completed" /> <effectiveTime value= "603620165044" /> <value unit="" xsi:type="PQ" value="NORMAL" /> <referenceRange> <observationRange> <text>NORMAL</ text> </observationRange> </referenceRange> </ observation> </component> <component> <observation moodCode= "EVN" classCode="OBS"> <templateId root="216.840.1.834083.10...4.2 " /> <id nullFlavor="NA" /> <code codeSystem="local" code= "BILU" displayName="UA BILIRUBIN DIPSTICK" /> <statusCode code= "completed" /> <effectiveTime value="013152061567" /> <value unit="" xsi:type="PQ" value="NEGATIVE" /> <referenceRange> < observationRange> <text>NEGATIVE</text> </ observationRange> </referenceRange> </observation> </ component> <component> <observation moodCode="EVN" classCode="OBS"> <templateId root="16.840.1.679759.10...4.2" /> <id nullFlavor="NA" /> <code codeSystem="local" code="ABDELRAHMAN" displayName="UA BLOOD DIPSTICK" /> <statusCode code="completed" /> < effectiveTime value="490705245223" /> <value unit="" xsi:type="PQ" value="4+" /> <interpretationCode codeSystem="local" code="*" /> <referenceRange> <observationRange> <text>NEGATIVE</ text> </observationRange> </referenceRange> </ observation> </component> <component> <observation moodCode= "EVN" classCode="OBS"> <templateId root="216.840.1.026179.10...4.2 " /> <id nullFlavor="NA" /> <code codeSystem="local" code= "SPGRU" displayName="UA SPECIFIC GRAVITY" /> <statusCode code= "completed" /> <effectiveTime value="" /> <value unit="" xsi:type="PQ" value="1.010" /> <interpretationCode codeSystem= "local" code="*" /> <referenceRange> <observationRange> <text>1.015-1.025</text> </observationRange> </ referenceRange> </observation> </component> <component> <observation moodCode="EVN" classCode="OBS"> <templateId root= "11.30.840.1.599641.08.03.22.4.2" /> <id nullFlavor="NA" /> < code codeSystem="local" code="COLTON" displayName="UR PH" /> <statusCode code="completed" /> <effectiveTime value="" /> < value unit="" xsi:type="PQ" value="7.0" /> <referenceRange> <observationRange> <text>5.0-7.0</text> </ observationRange> </referenceRange> </observation> </ component> </organizer> </entry> <entry> <organizer moodCode="EVN" classCode="BATTERY"> <templateId root="840.1.483470.08.03.22.4.1" /> <id nullFlavor="NA" /> <code codeSystem="local" code="UAMICRO" displayName="UA MICROSCOPIC" /> <statusCode code="completed" /> < component> <observation moodCode="EVN" classCode="OBS"> < templateId root="840.1.219585.22.4.2" /> <id nullFlavor="NA " /> <code codeSystem="local" code="EPIU" displayName="UA EPITHELIAL CELLS" /> <statusCode code="completed" /> <effectiveTime value ="490345299392" /> <value unit="epi/hpf" xsi:type="PQ" value="1+" /> <referenceRange> <observationRange> <text>0 - 1+ </text> </observationRange> </referenceRange> </ observation> </component> <component> <observation moodCode= "EVN" classCode="OBS"> <templateId root="216.840.1.942839.10..22.4.2 " /> <id nullFlavor="NA" /> <code codeSystem="local" code= "MUCUSU" displayName="UA MUCUS" /> <statusCode code="completed" /> <effectiveTime value="566009091408" /> <value unit="" xsi:type= "PQ" value="2+" /> <interpretationCode codeSystem="local" code="*" /> <referenceRange> <observationRange> <text>NEG TO 1+</text> </observationRange> </referenceRange> </ observation> </component> <component> <observation moodCode= "EVN" classCode="OBS"> <templateId root="[id number]..22.4.2 " /> <id nullFlavor="NA" /> <code codeSystem="local" code= "RBCU" displayName="UA RBC" /> <statusCode code="completed" /> <effectiveTime value="[id number]" /> <value unit="rbc/hpf" xsi:type ="PQ" value="PACKED FIELD" /> <interpretationCode codeSystem="local" code="*" /> <referenceRange> <observationRange> <text>0 - 3</text> </observationRange> </referenceRange> </observation> </component> <component> <observation moodCode="EVN" classCode="OBS"> <templateId root= "[id number]..22.4.2" /> <id nullFlavor="NA" /> < code codeSystem="local" code="UAVOL" displayName="UA VOLUME FOR EXAM" /> <statusCode code="completed" /> <effectiveTime value="[id number]" /> <value unit="mL" xsi:type="PQ" value="12.0" /> < referenceRange> <observationRange> <text>(12mL STD)</ text> </observationRange> </referenceRange> </ observation> </component> <component> <observation moodCode= "EVN" classCode="OBS"> <templateId root="11.30.840.1.243825.10..4.2 " /> <id nullFlavor="NA" /> <code codeSystem="local" code= "WBCU" displayName="UA WBC" /> <statusCode code="completed" /> <effectiveTime value="[id number]" /> <value unit="wbc/hpf" xsi:type ="PQ" value="2-5" /> <referenceRange> <observationRange> <text>0 - 5</text> </observationRange> </ referenceRange> </observation> </component> </organizer> </entry > <entry> <organizer moodCode="EVN" classCode="BATTERY"> <templateId root="[id number]..22.4.1" /> <id nullFlavor="NA" /> <code codeSystem="local" code="iCHEM8" displayName="CHEM/HEM PROFILE-BEDSIDE" /> <statusCode code="completed" /> <component> <observation moodCode= "EVN" classCode="OBS"> <templateId root="11.30.840.1.334637.08.03.22.4.2 " /> <id nullFlavor="NA" /> <code codeSystem="local" code="K" displayName="POTASSIUM" /> <statusCode code="completed" /> < effectiveTime value="" /> <value unit="mmol/L" xsi:type="PQ " value="3.8" /> <referenceRange> <observationRange> <text>3.5-5.3</text> </observationRange> </ referenceRange> </observation> </component> <component> <observation moodCode="EVN" classCode="OBS"> <templateId root= "216.840.1.293195.08.03.22.4.2" /> <id nullFlavor="NA" /> < code codeSystem="local" code="CMETHOD" displayName="METHOD" /> < statusCode code="completed" /> <effectiveTime value="" /> <value unit="" xsi:type="PQ" value="Bedside" /> < referenceRange> <observationRange> <text /> < /observationRange> </referenceRange> </observation> </ component> <component> <observation moodCode="EVN" classCode="OBS"> <templateId root="16.840.1.691918.08.03.22.4.2" /> <id nullFlavor="NA" /> <code codeSystem="local" code="GAP" displayName= "ANION GAP" /> <statusCode code="completed" /> <effectiveTime value="" /> <value unit="mmol/L" xsi:type="PQ" value="19" / > <referenceRange> <observationRange> <text>10- 20</text> </observationRange> </referenceRange> </ observation> </component> <component> <observation moodCode= "EVN" classCode="OBS"> <templateId root="216.840.1.252757.10..22.4.2 " /> <id nullFlavor="NA" /> <code codeSystem="local" code= "HMETHOD" displayName="METHOD" /> <statusCode code="completed" /> <effectiveTime value="" /> <value unit="" xsi:type="PQ " value="Bedside" /> <referenceRange> <observationRange> <text /> </observationRange> </referenceRange> </observation> </component> <component> <observation moodCode="EVN" classCode="OBS"> <templateId root= "16.840.1.829988...4.2" /> <id nullFlavor="NA" /> < code codeSystem="local" code="GLU" displayName="GLUCOSE" /> < statusCode code="completed" /> <effectiveTime value="" /> <value unit="mg/dL" xsi:type="PQ" value="83" /> < referenceRange> <observationRange> <text>70-99</text> </observationRange> </referenceRange> </observation> </component> <component> <observation moodCode="EVN" classCode= "OBS"> <templateId root="11.30.840.1.811153.1022.4.2" /> < id nullFlavor="NA" /> <code codeSystem="local" code="BUN" displayName= "BLOOD UREA NITROGEN" /> <statusCode code="completed" /> < effectiveTime value="" /> <value unit="mg/dL" xsi:type="PQ " value="8" /> <referenceRange> <observationRange> <text>7-20</text> </observationRange> </referenceRange > </observation> </component> <component> <observation moodCode="EVN" classCode="OBS"> <templateId root= "216.840.1.887115.10..4.2" /> <id nullFlavor="NA" /> < code codeSystem="local" code="CREAT" displayName="CREATININE" /> < statusCode code="completed" /> <effectiveTime value="" /> <value unit="mg/dL" xsi:type="PQ" value="0.7" /> < referenceRange> <observationRange> <text>0.6-1.0</text> </observationRange> </referenceRange> </observation > </component> <component> <observation moodCode="EVN" classCode="OBS"> <templateId root="11.30.840.1.694099.08.03.22.4.2" /> <id nullFlavor="NA" /> <code codeSystem="local" code="HGBT" displayName="HEMOGLOBIN" /> <statusCode code="completed" /> < effectiveTime value="" /> <value unit="gm/dL" xsi:type="PQ " value="13.9" /> <referenceRange> <observationRange> <text>12.0-16.0</text> </observationRange> </ referenceRange> </observation> </component> <component> <observation moodCode="EVN" classCode="OBS"> <templateId root= "16.840.1.348935...4.2" /> <id nullFlavor="NA" /> < code codeSystem="local" code="HCTT" displayName="HEMATOCRIT" /> < statusCode code="completed" /> <effectiveTime value="" /> <value unit="%" xsi:type="PQ" value="41.0" /> < referenceRange> <observationRange> <text>37.0-47.0</text > </observationRange> </referenceRange> </observation > </component> <component> <observation moodCode="EVN" classCode="OBS"> <templateId root="216.840.1.386836.10...4.2" /> <id nullFlavor="NA" /> <code codeSystem="local" code="NA" displayName="SODIUM" /> <statusCode code="completed" /> < effectiveTime value="" /> <value unit="mmol/L" xsi:type="PQ " value="139" /> <referenceRange> <observationRange> <text>135-148</text> </observationRange> </ referenceRange> </observation> </component> <component> <observation moodCode="EVN" classCode="OBS"> <templateId root= "16.840.1.407651.10..4.2" /> <id nullFlavor="NA" /> < code codeSystem="local" code="CL" displayName="CHLORIDE" /> < statusCode code="completed" /> <effectiveTime value="" /> <value unit="mmol/L" xsi:type="PQ" value="104" /> < referenceRange> <observationRange> <text>98-110</text> </observationRange> </referenceRange> </observation> </component> <component> <observation moodCode="EVN" classCode ="OBS"> <templateId root="16.840.1.403649.10..4.2" /> < id nullFlavor="NA" /> <code codeSystem="local" code="CO2" displayName= "CARBON DIOXIDE" /> <statusCode code="completed" /> < effectiveTime value="749442946904" /> <value unit="mmol/L" xsi:type="PQ " value="21" /> <referenceRange> <observationRange> <text>21-32</text> </observationRange> </ referenceRange> </observation> </component> <component> <observation moodCode="EVN" classCode="OBS"> <templateId root= "11.30.840.1.154532.08.03.22.4.2" /> <id nullFlavor="NA" /> < code codeSystem="local" code="CAION" displayName="CALCIUM IONIZED" /> < statusCode code="completed" /> <effectiveTime value="" /> <value unit="mg/dL" xsi:type="PQ" value="4.7" /> < referenceRange> <observationRange> <text>4.5-5.3</text> </observationRange> </referenceRange> </observation > </component> </organizer> </entry> <entry> <organizer moodCode= "EVN" classCode="BATTERY"> <templateId root="11.30.840.1.499570.08.03.22.4.1 " /> <id nullFlavor="NA" /> <code codeSystem="local" code="HCGQNT" displayName="HCG QUANT INTACT" /> <statusCode code="completed" /> < component> <observation moodCode="EVN" classCode="OBS"> < templateId root="11.30.840.1.293109.10.4.2" /> <id nullFlavor="NA " /> <code codeSystem="local" code="HCGQNT" displayName="HCG QUANT INTACT" /> <statusCode code="completed" /> <effectiveTime value="" /> <value unit="mIU/mL" xsi:type="PQ" value="3906 " /> <interpretationCode codeSystem="local" code="*" /> < referenceRange> <observationRange> <text /> < /observationRange> </referenceRange> </observation> </ component> </organizer> </entry> <entry> <organizer moodCode="EVN" classCode="BATTERY"> <templateId root="16.840.1.511968.10..22.4.1" /> <id nullFlavor="NA" /> <code codeSystem="local" code="Z6406" displayName="Cytogenetics" /> <statusCode code="completed" /> < component> <observation moodCode="EVN" classCode="OBS"> < templateId root="216.840.1.950224.10...4.2" /> <id nullFlavor="NA " /> <code codeSystem="local" code="Z6406" displayName="Cytogenetics" / > <statusCode code="completed" /> <effectiveTime value= "350447846982" /> <value unit="" xsi:type="PQ" value="SEE IMAGE" /> <referenceRange> <observationRange> <text /> </observationRange> </referenceRange> </observation> </component> <component> <observation moodCode="EVN" classCode= "OBS"> <templateId root="11.30.840.1.195614.10.4.2" /> < id nullFlavor="NA" /> <code codeSystem="local" code="Z6406" displayName ="Cytogenetics" /> <statusCode code="completed" /> < effectiveTime value="274432170896" /> <value unit="NA" xsi:type="PQ" value="SEE IMAGE" /> <referenceRange> <observationRange> <text /> </observationRange> </referenceRange> </observation> </component> </organizer> </entry> <entry> < organizer moodCode="EVN" classCode="BATTERY"> <templateId root= "2.16.840.1.975012.10..22.4.1" /> <id nullFlavor="NA" /> <code codeSystem="local" code="CBCWD" displayName="CBC With Platelet and Differential " /> <statusCode code="completed" /> <component> <observation moodCode="EVN" classCode="OBS"> <templateId root= "2.16.840.1.041933.10..22.4.2" /> <id nullFlavor="NA" /> < code codeSystem="local" code="ABASR" displayName="Absolute Basophils" /> <statusCode code="completed" /> <effectiveTime value="591838069415" /> <value unit="10*3" xsi:type="PQ" value="0.03" /> < referenceRange> <observationRange> <text>0.00-0.20</text > </observationRange> </referenceRange> </observation > </component> <component> <observation moodCode="EVN" classCode="OBS"> <templateId root="2.16.840.1.642537.10..22.4.2" /> <id nullFlavor="NA" /> <code codeSystem="local" code="AEOSR" displayName="Absolute Eosinophils" /> <statusCode code="completed" /> <effectiveTime value="210211878326" /> <value unit="10*3" xsi: type="PQ" value="0.71" /> <interpretationCode codeSystem="local" code= "*" /> <referenceRange> <observationRange> < text>0.00-0.50</text> </observationRange> </referenceRange> </observation> </component> <component> <observation moodCode="EVN" classCode="OBS"> <templateId root= "16.840.1.481120.10.22.4.2" /> <id nullFlavor="NA" /> < code codeSystem="local" code="ALYMR" displayName="Absolute Lymphocytes" /> <statusCode code="completed" /> <effectiveTime value=" " /> <value unit="10*3" xsi:type="PQ" value="2.35" /> < referenceRange> <observationRange> <text>0.80-3.30</text > </observationRange> </referenceRange> </observation > </component> <component> <observation moodCode="EVN" classCode="OBS"> <templateId root="16.840.1.132562.10.4.2" /> <id nullFlavor="NA" /> <code codeSystem="local" code="AMONR" displayName="Absolute Monocytes" /> <statusCode code="completed" /> <effectiveTime value="" /> <value unit="10*3" xsi: type="PQ" value="0.41" /> <referenceRange> <observationRange > <text>0.30-1.00</text> </observationRange> </ referenceRange> </observation> </component> <component> <observation moodCode="EVN" classCode="OBS"> <templateId root= "11.30.840.1.224939.10.22.4.2" /> <id nullFlavor="NA" /> < code codeSystem="local" code="ASEGR" displayName="Absolute Neutrophils" /> <statusCode code="completed" /> <effectiveTime value=" " /> <value unit="10*3" xsi:type="PQ" value="3.37" /> < referenceRange> <observationRange> <text>1.90-7.00</text > </observationRange> </referenceRange> </observation > </component> <component> <observation moodCode="EVN" classCode="OBS"> <templateId root="16.840.1.819364.10.20.22.4.2" /> <id nullFlavor="NA" /> <code codeSystem="local" code="BASOR" displayName="Basophils" /> <statusCode code="completed" /> < effectiveTime value="358580756047" /> <value unit="%" xsi:type="PQ " value="0" /> <referenceRange> <observationRange> <text>0-2</text> </observationRange> </referenceRange> </observation> </component> <component> <observation moodCode="EVN" classCode="OBS"> <templateId root= "11.30.840.1.195405.10.22.4.2" /> <id nullFlavor="NA" /> < code codeSystem="local" code="EOSR" displayName="Eosinophils" /> < statusCode code="completed" /> <effectiveTime value="558847314761" /> <value unit="%" xsi:type="PQ" value="10" /> < interpretationCode codeSystem="local" code="*" /> <referenceRange> <observationRange> <text>0-4</text> </ observationRange> </referenceRange> </observation> </ component> <component> <observation moodCode="EVN" classCode="OBS"> <templateId root="11.30.840.1.529937.10.20.22.4.2" /> <id nullFlavor="NA" /> <code codeSystem="local" code="HCT" displayName="HCT " /> <statusCode code="completed" /> <effectiveTime value= "731880798930" /> <value unit="%" xsi:type="PQ" value="33.8" /> <interpretationCode codeSystem="local" code="*" /> < referenceRange> <observationRange> <text>37.0-47.0</text > </observationRange> </referenceRange> </observation > </component> <component> <observation moodCode="EVN" classCode="OBS"> <templateId root="2.16.840.1.379566.10.20.22.4.2" /> <id nullFlavor="NA" /> <code codeSystem="local" code="HGB" displayName="HGB" /> <statusCode code="completed" /> < effectiveTime value="608572239872" /> <value unit="g/dL" xsi:type="PQ" value="11.2" /> <interpretationCode codeSystem="local" code="*" /> <referenceRange> <observationRange> <text>12.0- 16.0</text> </observationRange> </referenceRange> </ observation> </component> <component> <observation moodCode= "EVN" classCode="OBS"> <templateId root="2.16.840.1.356843.10.20.22.4.2 " /> <id nullFlavor="NA" /> <code codeSystem="local" code= "IMGA" displayName="Immature Granulocytes" /> <statusCode code= "completed" /> <effectiveTime value="637587227979" /> <value unit="%" xsi:type="PQ" value="0.1" /> <referenceRange> < observationRange> <text>0.0-1.0</text> </ observationRange> </referenceRange> </observation> </ component> <component> <observation moodCode="EVN" classCode="OBS"> <templateId root="216.840.1.488936.10..22.4.2" /> <id nullFlavor="NA" /> <code codeSystem="local" code="LYMPR" displayName= "Lymphocytes" /> <statusCode code="completed" /> < effectiveTime value="658591126932" /> <value unit="%" xsi:type="PQ " value="34" /> <referenceRange> <observationRange> <text>20-46</text> </observationRange> </ referenceRange> </observation> </component> <component> <observation moodCode="EVN" classCode="OBS"> <templateId root= "11.30.840.1.002895.10..4.2" /> <id nullFlavor="NA" /> < code codeSystem="local" code="MCH" displayName="MCH" /> <statusCode code="completed" /> <effectiveTime value="223865470328" /> < value unit="pg" xsi:type="PQ" value="30.6" /> <referenceRange> <observationRange> <text>27.0-32.0</text> </ observationRange> </referenceRange> </observation> </ component> <component> <observation moodCode="EVN" classCode="OBS"> <templateId root="11.30.840.1.527976.10.20.22.4.2" /> <id nullFlavor="NA" /> <code codeSystem="local" code="MCHC" displayName= "MCHC" /> <statusCode code="completed" /> <effectiveTime value ="248392639358" /> <value unit="g/dL" xsi:type="PQ" value="33.1" /> <referenceRange> <observationRange> <text>32.0- 36.0</text> </observationRange> </referenceRange> </ observation> </component> <component> <observation moodCode= "EVN" classCode="OBS"> <templateId root="16.840.1.962853.10...4.2 " /> <id nullFlavor="NA" /> <code codeSystem="local" code="MCV " displayName="MCV" /> <statusCode code="completed" /> < effectiveTime value="822873554760" /> <value unit="fL" xsi:type="PQ" value="92.3" /> <referenceRange> <observationRange> <text>82.0-99.0</text> </observationRange> </ referenceRange> </observation> </component> <component> <observation moodCode="EVN" classCode="OBS"> <templateId root= "11.30.840.1.163528.08.03.22.4.2" /> <id nullFlavor="NA" /> < code codeSystem="local" code="MONOR" displayName="Monocytes" /> < statusCode code="completed" /> <effectiveTime value="674183110890" /> <value unit="%" xsi:type="PQ" value="6" /> <referenceRange > <observationRange> <text>4-11</text> </ observationRange> </referenceRange> </observation> </ component> <component> <observation moodCode="EVN" classCode="OBS"> <templateId root="11.30.840.1.537779....4.2" /> <id nullFlavor="NA" /> <code codeSystem="local" code="MPV" displayName="MPV " /> <statusCode code="completed" /> <effectiveTime value= "805677544115" /> <value unit="fL" xsi:type="PQ" value="9.9" /> <referenceRange> <observationRange> <text>9.4-12.4</ text> </observationRange> </referenceRange> </ observation> </component> <component> <observation moodCode= "EVN" classCode="OBS"> <templateId root="216.840.1.254006.10..4.2 " /> <id nullFlavor="NA" /> <code codeSystem="local" code= "SEGR" displayName="Neutrophils" /> <statusCode code="completed" /> <effectiveTime value="851542758645" /> <value unit="%" xsi: type="PQ" value="49" /> <interpretationCode codeSystem="local" code="* " /> <referenceRange> <observationRange> <text> 51-75</text> </observationRange> </referenceRange> </ observation> </component> <component> <observation moodCode= "EVN" classCode="OBS"> <templateId root="11.30.840.1.400192.08.03.22.4.2 " /> <id nullFlavor="NA" /> <code codeSystem="local" code="PLT " displayName="Platelet Count" /> <statusCode code="completed" /> <effectiveTime value="128597618316" /> <value unit="K/uL" xsi:type ="PQ" value="308" /> <referenceRange> <observationRange> <text>150-400</text> </observationRange> </ referenceRange> </observation> </component> <component> <observation moodCode="EVN" classCode="OBS"> <templateId root= "16.840.1.166015.10.22.4.2" /> <id nullFlavor="NA" /> < code codeSystem="local" code="RBC" displayName="RBC" /> <statusCode code="completed" /> <effectiveTime value="450672908575" /> < value unit="10*6/uL" xsi:type="PQ" value="3.66" /> <interpretationCode codeSystem="local" code="*" /> <referenceRange> < observationRange> <text>4.00-5.20</text> </ observationRange> </referenceRange> </observation> </ component> <component> <observation moodCode="EVN" classCode="OBS"> <templateId root="2.16.840.1.296573....4.2" /> <id nullFlavor="NA" /> <code codeSystem="local" code="RDW" displayName="RDW " /> <statusCode code="completed" /> <effectiveTime value= "079153459951" /> <value unit="%" xsi:type="PQ" value="12.8" /> <referenceRange> <observationRange> <text>11.5- 14.5</text> </observationRange> </referenceRange> </ observation> </component> <component> <observation moodCode= "EVN" classCode="OBS"> <templateId root="2.16.840.1.356200....4.2 " /> <id nullFlavor="NA" /> <code codeSystem="local" code= "WBCIR" displayName="WBC" /> <statusCode code="completed" /> < effectiveTime value="283870793019" /> <value unit="K/uL" xsi:type="PQ" value="6.9" /> <referenceRange> <observationRange> <text>4.8-10.8</text> </observationRange> </ referenceRange> </observation> </component> </organizer> </entry > <entry> <organizer moodCode="EVN" classCode="BATTERY"> <templateId root="216.840.1.676706.10..4.1" /> <id nullFlavor="NA" /> <code codeSystem="local" code="HCGQ" displayName="HCG Quantitative" /> < statusCode code="completed" /> <component> <observation moodCode= "EVN" classCode="OBS"> <templateId root="11.30.840.1.844111.08.03.22.4.2 " /> <id nullFlavor="NA" /> <code codeSystem="local" code= "HCGQ" displayName="HCG Quantitative" /> <statusCode code="completed" / > <effectiveTime value="986424957763" /> <value unit="mIU/mL" xsi:type="PQ" value="1174" /> <referenceRange> < observationRange> <text /> </observationRange> </referenceRange> </observation> </component> </organizer> </ entry> <entry> <organizer moodCode="EVN" classCode="BATTERY"> < templateId root="11.30.840.1.721828.08.03.22.4.1" /> <id nullFlavor="NA" /> <code codeSystem="local" code="PTPTT" displayName="PTT/PT (INR)" /> < statusCode code="completed" /> <component> <observation moodCode= "EVN" classCode="OBS"> <templateId root="11.30.840.1.882751.08.03.22.4.2 " /> <id nullFlavor="NA" /> <code codeSystem="local" code="INR " displayName="INR" /> <statusCode code="completed" /> < effectiveTime value="223119958727" /> <value unit="NA" xsi:type="PQ" value="1.1" /> <referenceRange> <observationRange> <text>0.9-1.2</text> </observationRange> </ referenceRange> </observation> </component> <component> <observation moodCode="EVN" classCode="OBS"> <templateId root= "216.840.1.205936.1022.4.2" /> <id nullFlavor="NA" /> < code codeSystem="local" code="PTT" displayName="PTT" /> <statusCode code="completed" /> <effectiveTime value="452133320891" /> < value unit="seconds" xsi:type="PQ" value="30.9" /> <referenceRange> <observationRange> <text>25.0-35.0</text> </ observationRange> </referenceRange> </observation> </ component> </organizer> </entry> <entry> <organizer moodCode="EVN" classCode="BATTERY"> <templateId root="11.30.840.1.094124.08.03.22.4.1" /> <id nullFlavor="NA" /> <code codeSystem="local" code="CBCND" displayName="CBC With Platelet No Differential" /> <statusCode code= "completed" /> <component> <observation moodCode="EVN" classCode= "OBS"> <templateId root="16.840.1.143563.1022.4.2" /> < id nullFlavor="NA" /> <code codeSystem="local" code="HCT" displayName= "HCT" /> <statusCode code="completed" /> <effectiveTime value= "720068988937" /> <value unit="%" xsi:type="PQ" value="29.3" /> <interpretationCode codeSystem="local" code="*" /> < referenceRange> <observationRange> <text>37.0-47.0</text > </observationRange> </referenceRange> </observation > </component> <component> <observation moodCode="EVN" classCode="OBS"> <templateId root="11.30.840.1.282987.10.20.22.4.2" /> <id nullFlavor="NA" /> <code codeSystem="local" code="HGB" displayName="HGB" /> <statusCode code="completed" /> < effectiveTime value="" /> <value unit="g/dL" xsi:type="PQ" value="9.5" /> <interpretationCode codeSystem="local" code="*" /> <referenceRange> <observationRange> <text>12.0-16.0 </text> </observationRange> </referenceRange> </ observation> </component> <component> <observation moodCode= "EVN" classCode="OBS"> <templateId root="11.30.840.1.039397...4.2 " /> <id nullFlavor="NA" /> <code codeSystem="local" code="MCH " displayName="MCH" /> <statusCode code="completed" /> < effectiveTime value="" /> <value unit="pg" xsi:type="PQ" value="30.5" /> <referenceRange> <observationRange> <text>27.0-32.0</text> </observationRange> </ referenceRange> </observation> </component> <component> <observation moodCode="EVN" classCode="OBS"> <templateId root= "11.30.840.1.349044.10.20..4.2" /> <id nullFlavor="NA" /> < code codeSystem="local" code="MCHC" displayName="MCHC" /> <statusCode code="completed" /> <effectiveTime value="" /> < value unit="g/dL" xsi:type="PQ" value="32.4" /> <referenceRange> <observationRange> <text>32.0-36.0</text> </ observationRange> </referenceRange> </observation> </ component> <component> <observation moodCode="EVN" classCode="OBS"> <templateId root="216.840.1.633562.10.20.22.4.2" /> <id nullFlavor="NA" /> <code codeSystem="local" code="MCV" displayName="MCV " /> <statusCode code="completed" /> <effectiveTime value= "" /> <value unit="fL" xsi:type="PQ" value="94.2" /> <referenceRange> <observationRange> <text>82.0-99.0< /text> </observationRange> </referenceRange> </ observation> </component> <component> <observation moodCode= "EVN" classCode="OBS"> <templateId root="16.840.1.311103.10.20.22.4.2 " /> <id nullFlavor="NA" /> <code codeSystem="local" code="MPV " displayName="MPV" /> <statusCode code="completed" /> < effectiveTime value="" /> <value unit="fL" xsi:type="PQ" value="9.4" /> <referenceRange> <observationRange> <text>9.4-12.4</text> </observationRange> </ referenceRange> </observation> </component> <component> <observation moodCode="EVN" classCode="OBS"> <templateId root= "216.840.1.181189.22.4.2" /> <id nullFlavor="NA" /> < code codeSystem="local" code="PLT" displayName="Platelet Count" /> < statusCode code="completed" /> <effectiveTime value="" /> <value unit="K/uL" xsi:type="PQ" value="239" /> < referenceRange> <observationRange> <text>150-400</text> </observationRange> </referenceRange> </observation > </component> <component> <observation moodCode="EVN" classCode="OBS"> <templateId root="216.840.1.467140.22.4.2" /> <id nullFlavor="NA" /> <code codeSystem="local" code="RBC" displayName="RBC" /> <statusCode code="completed" /> < effectiveTime value="" /> <value unit="10*6/uL" xsi:type= "PQ" value="3.11" /> <interpretationCode codeSystem="local" code="*" / > <referenceRange> <observationRange> <text> 4.00-5.20</text> </observationRange> </referenceRange> </observation> </component> <component> <observation moodCode="EVN" classCode="OBS"> <templateId root= "16.840.1.319197.1022.4.2" /> <id nullFlavor="NA" /> < code codeSystem="local" code="RDW" displayName="RDW" /> <statusCode code="completed" /> <effectiveTime value="070252849964" /> < value unit="%" xsi:type="PQ" value="12.9" /> <referenceRange> <observationRange> <text>11.5-14.5</text> </ observationRange> </referenceRange> </observation> </ component> <component> <observation moodCode="EVN" classCode="OBS"> <templateId root="2.16.840.1.127611.10..4.2" /> <id nullFlavor="NA" /> <code codeSystem="local" code="WBCIR" displayName= "WBC" /> <statusCode code="completed" /> <effectiveTime value= "006903786706" /> <value unit="K/uL" xsi:type="PQ" value="5.4" /> <referenceRange> <observationRange> <text>4.8-10.8< /text> </observationRange> </referenceRange> </ observation> </component> </organizer> </entry> <entry> <organizer moodCode="EVN" classCode="BATTERY"> <templateId root= "2.16.840.1.258608.10..22.4.1" /> <id nullFlavor="NA" /> <code codeSystem="local" code="CBCND" displayName="CBC With Platelet No Differential" /> <statusCode code="completed" /> <component> <observation moodCode="EVN" classCode="OBS"> <templateId root= "2.16.840.1.605551.10..22.4.2" /> <id nullFlavor="NA" /> < code codeSystem="local" code="HCT" displayName="HCT" /> <statusCode code="completed" /> <effectiveTime value="201702124003" /> < value unit="%" xsi:type="PQ" value="28.9" /> <interpretationCode codeSystem="local" code="*" /> <referenceRange> < observationRange> <text>37.0-47.0</text> </ observationRange> </referenceRange> </observation> </ component> <component> <observation moodCode="EVN" classCode="OBS"> <templateId root="2.16.840.1.950006.10...4.2" /> <id nullFlavor="NA" /> <code codeSystem="local" code="HGB" displayName="HGB " /> <statusCode code="completed" /> <effectiveTime value= "" /> <value unit="g/dL" xsi:type="PQ" value="9.4" /> <interpretationCode codeSystem="local" code="*" /> <referenceRange > <observationRange> <text>12.0-16.0</text> < /observationRange> </referenceRange> </observation> </ component> <component> <observation moodCode="EVN" classCode="OBS"> <templateId root="216.840.1.714561.08.03.22.4.2" /> <id nullFlavor="NA" /> <code codeSystem="local" code="MCH" displayName="MCH " /> <statusCode code="completed" /> <effectiveTime value= "" /> <value unit="pg" xsi:type="PQ" value="30.4" /> <referenceRange> <observationRange> <text>27.0-32.0< /text> </observationRange> </referenceRange> </ observation> </component> <component> <observation moodCode= "EVN" classCode="OBS"> <templateId root="2.16.840.1.270275.10...4.2 " /> <id nullFlavor="NA" /> <code codeSystem="local" code= "MCHC" displayName="MCHC" /> <statusCode code="completed" /> < effectiveTime value="" /> <value unit="g/dL" xsi:type="PQ" value="32.5" /> <referenceRange> <observationRange> <text>32.0-36.0</text> </observationRange> </ referenceRange> </observation> </component> <component> <observation moodCode="EVN" classCode="OBS"> <templateId root= "216.840.1.634246.10.22.4.2" /> <id nullFlavor="NA" /> < code codeSystem="local" code="MCV" displayName="MCV" /> <statusCode code="completed" /> <effectiveTime value="" /> < value unit="fL" xsi:type="PQ" value="93.5" /> <referenceRange> <observationRange> <text>82.0-99.0</text> </ observationRange> </referenceRange> </observation> </ component> <component> <observation moodCode="EVN" classCode="OBS"> <templateId root="11.30.840.1.680774...4.2" /> <id nullFlavor="NA" /> <code codeSystem="local" code="MPV" displayName="MPV " /> <statusCode code="completed" /> <effectiveTime value= "" /> <value unit="fL" xsi:type="PQ" value="9.7" /> <referenceRange> <observationRange> <text>9.4-12.4</ text> </observationRange> </referenceRange> </ observation> </component> <component> <observation moodCode= "EVN" classCode="OBS"> <templateId root="16.840.1.972493.10.2022.4.2 " /> <id nullFlavor="NA" /> <code codeSystem="local" code="PLT " displayName="Platelet Count" /> <statusCode code="completed" /> <effectiveTime value="" /> <value unit="K/uL" xsi:type ="PQ" value="225" /> <referenceRange> <observationRange> <text>150-400</text> </observationRange> </ referenceRange> </observation> </component> <component> <observation moodCode="EVN" classCode="OBS"> <templateId root= "216.840.1.374247.10.20.22.4.2" /> <id nullFlavor="NA" /> < code codeSystem="local" code="RBC" displayName="RBC" /> <statusCode code="completed" /> <effectiveTime value="" /> < value unit="10*6/uL" xsi:type="PQ" value="3.09" /> <interpretationCode codeSystem="local" code="*" /> <referenceRange> < observationRange> <text>4.00-5.20</text> </ observationRange> </referenceRange> </observation> </ component> <component> <observation moodCode="EVN" classCode="OBS"> <templateId root="216.840.1.834852.10.20.22.4.2" /> <id nullFlavor="NA" /> <code codeSystem="local" code="RDW" displayName="RDW " /> <statusCode code="completed" /> <effectiveTime value= "" /> <value unit="%" xsi:type="PQ" value="12.6" /> <referenceRange> <observationRange> <text>11.5- 14.5</text> </observationRange> </referenceRange> </ observation> </component> <component> <observation moodCode= "EVN" classCode="OBS"> <templateId root="11.30.840.1.616454.10..22.4.2 " /> <id nullFlavor="NA" /> <code codeSystem="local" code= "WBCIR" displayName="WBC" /> <statusCode code="completed" /> < effectiveTime value="482765356164" /> <value unit="K/uL" xsi:type="PQ" value="5.0" /> <referenceRange> <observationRange> <text>4.8-10.8</text> </observationRange> </ referenceRange> </observation> </component> </organizer> </entry > <entry> <organizer moodCode="EVN" classCode="BATTERY"> <templateId root="11.30.840.1.222839.10..22.4.1" /> <id nullFlavor="NA" /> <code codeSystem="local" code="GLUN" displayName="Glucose NPT" /> <statusCode code="completed" /> <component> <observation moodCode="EVN" classCode="OBS"> <templateId root="11.30.840.1.264955.10..22.4.2" /> <id nullFlavor="NA" /> <code codeSystem="local" code="GLUN" displayName="Glucose NPT" /> <statusCode code="completed" /> <effectiveTime value="609692586461" /> <value unit="mg/dL" xsi:type="PQ " value="84" /> <referenceRange> <observationRange> <text>70-100</text> </observationRange> </ referenceRange> </observation> </component> </organizer> </entry > <entry> <organizer moodCode="EVN" classCode="BATTERY"> <templateId root="11.30.840.1.153545..4.1" /> <id nullFlavor="NA" /> <code codeSystem="local" code="BMP" displayName="Basic Metabolic Panel (BMP)" /> <statusCode code="completed" /> <component> <observation moodCode= "EVN" classCode="OBS"> <templateId root="840.1.315974.08.03.22.4.2 " /> <id nullFlavor="NA" /> <code codeSystem="local" code= "AGAP" displayName="Anion Gap" /> <statusCode code="completed" /> <effectiveTime value="833740465030" /> <value unit="NA" xsi:type= "PQ" value="9" /> <referenceRange> <observationRange> <text>3-20</text> </observationRange> </ referenceRange> </observation> </component> <component> <observation moodCode="EVN" classCode="OBS"> <templateId root= "840.1.271820.08.03.22.4.2" /> <id nullFlavor="NA" /> < code codeSystem="local" code="BUN" displayName="BUN" /> <statusCode code="completed" /> <effectiveTime value="819099572045" /> < value unit="mg/dL" xsi:type="PQ" value="8" /> <referenceRange> <observationRange> <text>4-20</text> </ observationRange> </referenceRange> </observation> </ component> <component> <observation moodCode="EVN" classCode="OBS"> <templateId root="840.1.514848.08.03.22.4.2" /> <id nullFlavor="NA" /> <code codeSystem="local" code="CA" displayName= "Calcium" /> <statusCode code="completed" /> <effectiveTime value="037821018072" /> <value unit="mg/dL" xsi:type="PQ" value="8.8" / > <referenceRange> <observationRange> <text>8.6 -10.0</text> </observationRange> </referenceRange> </ observation> </component> <component> <observation moodCode= "EVN" classCode="OBS"> <templateId root="16.840.1.616595.22.4.2 " /> <id nullFlavor="NA" /> <code codeSystem="local" code="CL " displayName="Chloride" /> <statusCode code="completed" /> < effectiveTime value="944960938666" /> <value unit="mEq/L" xsi:type="PQ " value="108" /> <referenceRange> <observationRange> <text>99-109</text> </observationRange> </ referenceRange> </observation> </component> <component> <observation moodCode="EVN" classCode="OBS"> <templateId root= "11.30.840.1.936747.08.03.22.4.2" /> <id nullFlavor="NA" /> < code codeSystem="local" code="CO2" displayName="CO2" /> <statusCode code="completed" /> <effectiveTime value="756605788741" /> < value unit="mEq/L" xsi:type="PQ" value="22" /> <referenceRange> <observationRange> <text>22-32</text> </ observationRange> </referenceRange> </observation> </ component> <component> <observation moodCode="EVN" classCode="OBS"> <templateId root="16.840.1.873941..2022.4.2" /> <id nullFlavor="NA" /> <code codeSystem="local" code="CREAT" displayName= "Creatinine" /> <statusCode code="completed" /> < effectiveTime value="313429909815" /> <value unit="mg/dL" xsi:type="PQ " value="0.77" /> <referenceRange> <observationRange> <text>0.44-1.03</text> </observationRange> </ referenceRange> </observation> </component> <component> <observation moodCode="EVN" classCode="OBS"> <templateId root= "216.840.1.988855.10.20.22.4.2" /> <id nullFlavor="NA" /> < code codeSystem="local" code="GLU" displayName="Glucose" /> < statusCode code="completed" /> <effectiveTime value="147077132688" /> <value unit="mg/dL" xsi:type="PQ" value="104" /> < interpretationCode codeSystem="local" code="*" /> <referenceRange> <observationRange> <text>70-100</text> </ observationRange> </referenceRange> </observation> </ component> <component> <observation moodCode="EVN" classCode="OBS"> <templateId root="16.840.1.583053.10.20.22.4.2" /> <id nullFlavor="NA" /> <code codeSystem="local" code="K" displayName= "Potassium" /> <statusCode code="completed" /> <effectiveTime value="752740566458" /> <value unit="mEq/L" xsi:type="PQ" value="3.6" / > <referenceRange> <observationRange> <text>3.6 -5.1</text> </observationRange> </referenceRange> </ observation> </component> <component> <observation moodCode= "EVN" classCode="OBS"> <templateId root="16.840.1.526116.10.22.4.2 " /> <id nullFlavor="NA" /> <code codeSystem="local" code="NA " displayName="Sodium" /> <statusCode code="completed" /> < effectiveTime value="024388421067" /> <value unit="mEq/L" xsi:type="PQ " value="139" /> <referenceRange> <observationRange> <text>136-144</text> </observationRange> </ referenceRange> </observation> </component> </organizer> </entry > <entry> <organizer moodCode="EVN" classCode="BATTERY"> <templateId root="16.840.1.763830.08.03.22.4.1" /> <id nullFlavor="NA" /> <code codeSystem="local" code="GFR" displayName="eGFR" /> <statusCode code= "completed" /> <component> <observation moodCode="EVN" classCode= "OBS"> <templateId root="16.840.1.816216...4.2" /> < id nullFlavor="NA" /> <code codeSystem="local" code="GFR" displayName= "eGFR" /> <statusCode code="completed" /> <effectiveTime value ="382658316706" /> <value unit="NA" xsi:type="PQ" value=">60" /> <referenceRange> <observationRange> <text>>60< /text> </observationRange> </referenceRange> </ observation> </component> </organizer> </entry> <entry> <organizer moodCode="EVN" classCode="BATTERY"> <templateId root= "16.840.1.630240.22.4.1" /> <id nullFlavor="NA" /> <code codeSystem="local" code="UA" displayName="Urinalysis with reflex microscopic" / > <statusCode code="completed" /> <component> <observation moodCode="EVN" classCode="OBS"> <templateId root= "840.1.965504.10.4.2" /> <id nullFlavor="NA" /> < code codeSystem="local" code="UAPP" displayName="Appearance" /> < statusCode code="completed" /> <effectiveTime value="644793341382" /> <value unit="NA" xsi:type="PQ" value="Cloudy" /> < interpretationCode codeSystem="local" code="*" /> <referenceRange> <observationRange> <text /> </observationRange> </referenceRange> </observation> </component> < component> <observation moodCode="EVN" classCode="OBS"> < templateId root="840.1.540700.08.03.224.2" /> <id nullFlavor="NA " /> <code codeSystem="local" code="UBIL" displayName="Bilirubin" /> <statusCode code="completed" /> <effectiveTime value= "574947226866" /> <value unit="NA" xsi:type="PQ" value="Negative" /> <referenceRange> <observationRange> <text> Negative</text> </observationRange> </referenceRange> </observation> </component> <component> <observation moodCode ="EVN" classCode="OBS"> <templateId root= "840.1.464755.08.03.22.4.2" /> <id nullFlavor="NA" /> < code codeSystem="local" code="UBLD" displayName="Blood" /> <statusCode code="completed" /> <effectiveTime value="462842902652" /> < value unit="NA" xsi:type="PQ" value="Negative" /> <referenceRange> <observationRange> <text>Negative</text> </ observationRange> </referenceRange> </observation> </ component> <component> <observation moodCode="EVN" classCode="OBS"> <templateId root="11.30.840.1.570439.10.4.2" /> <id nullFlavor="NA" /> <code codeSystem="local" code="UCOLR" displayName= "Color" /> <statusCode code="completed" /> <effectiveTime value="" /> <value unit="NA" xsi:type="PQ" value="Yellow" / > <referenceRange> <observationRange> <text /> </observationRange> </referenceRange> </observation > </component> <component> <observation moodCode="EVN" classCode="OBS"> <templateId root="11.30.840.1.738385.08.03.22.4.2" /> <id nullFlavor="NA" /> <code codeSystem="local" code="UGLU" displayName="Glucose, Urine" /> <statusCode code="completed" /> <effectiveTime value="733989968564" /> <value unit="" xsi:type="PQ" value="Negative" /> <referenceRange> <observationRange> <text>Negative</text> </observationRange> </ referenceRange> </observation> </component> <component> <observation moodCode="EVN" classCode="OBS"> <templateId root= "11.30.840.1.211731...4.2" /> <id nullFlavor="NA" /> < code codeSystem="local" code="UKET" displayName="Ketones" /> < statusCode code="completed" /> <effectiveTime value="726235975425" /> <value unit="" xsi:type="PQ" value="Negative" /> < referenceRange> <observationRange> <text>Negative</text > </observationRange> </referenceRange> </observation > </component> <component> <observation moodCode="EVN" classCode="OBS"> <templateId root="11.30.840.1.611639.08.03.22.4.2" /> <id nullFlavor="NA" /> <code codeSystem="local" code="ULEU" displayName="Leukocyte Esterase" /> <statusCode code="completed" /> <effectiveTime value="982532839380" /> <value unit="NA" xsi:type ="PQ" value="Negative" /> <referenceRange> <observationRange > <text>Negative</text> </observationRange> </ referenceRange> </observation> </component> <component> <observation moodCode="EVN" classCode="OBS"> <templateId root= "840.1.752578.08.03.22.4.2" /> <id nullFlavor="NA" /> < code codeSystem="local" code="UNIT" displayName="Nitrites" /> < statusCode code="completed" /> <effectiveTime value="" /> <value unit="NA" xsi:type="PQ" value="Negative" /> < referenceRange> <observationRange> <text>Negative</text > </observationRange> </referenceRange> </observation > </component> <component> <observation moodCode="EVN" classCode="OBS"> <templateId root="11.30.840.1.123746.08.03.22.4.2" /> <id nullFlavor="NA" /> <code codeSystem="local" code="UPH" displayName="pH" /> <statusCode code="completed" /> < effectiveTime value="589196605417" /> <value unit="NA" xsi:type="PQ" value="7.0" /> <referenceRange> <observationRange> <text>5.0-8.0</text> </observationRange> </ referenceRange> </observation> </component> <component> <observation moodCode="EVN" classCode="OBS"> <templateId root= "11.30.840.1.602165.10..22.4.2" /> <id nullFlavor="NA" /> < code codeSystem="local" code="UPRO" displayName="Protein" /> < statusCode code="completed" /> <effectiveTime value="251022656806" /> <value unit="NA" xsi:type="PQ" value="Negative" /> < referenceRange> <observationRange> <text>Negative</text > </observationRange> </referenceRange> </observation > </component> <component> <observation moodCode="EVN" classCode="OBS"> <templateId root="11.30.840.1.955426...22.4.2" /> <id nullFlavor="NA" /> <code codeSystem="local" code="USPG" displayName="Specific [place]" /> <statusCode code="completed" /> <effectiveTime value="566036145961" /> <value unit="NA" xsi:type= "PQ" value="1.020" /> <referenceRange> <observationRange> <text>1.003-1.030</text> </observationRange> </ referenceRange> </observation> </component> <component> <observation moodCode="EVN" classCode="OBS"> <templateId root= "11.30.840.1.392235.22.4.2" /> <id nullFlavor="NA" /> < code codeSystem="local" code="UTYP" displayName="UA Collection type" /> <statusCode code="completed" /> <effectiveTime value="293054512792" / > <value unit="NA" xsi:type="PQ" value="Clean Catch" /> < referenceRange> <observationRange> <text /> < /observationRange> </referenceRange> </observation> </ component> <component> <observation moodCode="EVN" classCode="OBS"> <templateId root="840.1.447780.08.03.22.4.2" /> <id nullFlavor="NA" /> <code codeSystem="local" code="UURO" displayName= "Urobilinogen" /> <statusCode code="completed" /> < effectiveTime value="259375358000" /> <value unit="mg/dL" xsi:type="PQ " value="Negative" /> <referenceRange> <observationRange> <text><1.0</text> </observationRange> </ referenceRange> </observation> </component> </organizer> </entry > <entry> <organizer moodCode="EVN" classCode="BATTERY"> <templateId root="840.1.363106.08.03.22.4.1" /> <id nullFlavor="NA" /> <code codeSystem="local" code="PREGN" displayName=" Screen, Urine NPT" /> <statusCode code="completed" /> <component> <observation moodCode ="EVN" classCode="OBS"> <templateId root= "16.840.1.279683.08.03.22.4.2" /> <id nullFlavor="NA" /> < code codeSystem="local" code="PREGN" displayName=" Screen, Urine NPT" / > <statusCode code="completed" /> <effectiveTime value= "180426045341" /> <value unit="NA" xsi:type="PQ" value="Negative" /> <referenceRange> <observationRange> <text /> </observationRange> </referenceRange> </observation> </component> </organizer> </entry> <entry> <organizer moodCode="EVN " classCode="BATTERY"> <templateId root="216.840.1.414542.10..22.4.1" / > <id nullFlavor="NA" /> <code codeSystem="local" code="CBCWD" displayName="CBC With Platelet and Differential" /> <statusCode code= "completed" /> <component> <observation moodCode="EVN" classCode= "OBS"> <templateId root="216.840.1.425734.10...4.2" /> < id nullFlavor="NA" /> <code codeSystem="local" code="ABASR" displayName ="Absolute Basophils" /> <statusCode code="completed" /> < effectiveTime value="856438617048" /> <value unit="10*3/uL" xsi:type= "PQ" value="0.03" /> <referenceRange> <observationRange> <text>0.00-0.20</text> </observationRange> </ referenceRange> </observation> </component> <component> <observation moodCode="EVN" classCode="OBS"> <templateId root= "216.840.1.478837.10..22.4.2" /> <id nullFlavor="NA" /> < code codeSystem="local" code="AEOSR" displayName="Absolute Eosinophils" /> <statusCode code="completed" /> <effectiveTime value="353272560803 " /> <value unit="10*3/uL" xsi:type="PQ" value="0.31" /> < referenceRange> <observationRange> <text>0.00-0.50</text > </observationRange> </referenceRange> </observation > </component> <component> <observation moodCode="EVN" classCode="OBS"> <templateId root="216.840.1.423801.10...4.2" /> <id nullFlavor="NA" /> <code codeSystem="local" code="ALYMR" displayName="Absolute Lymphocytes" /> <statusCode code="completed" /> <effectiveTime value="477637879693" /> <value unit="10*3/uL" xsi:type="PQ" value="1.67" /> <referenceRange> < observationRange> <text>0.80-3.30</text> </ observationRange> </referenceRange> </observation> </ component> <component> <observation moodCode="EVN" classCode="OBS"> <templateId root="216.840.1.905547.08.03.22.4.2" /> <id nullFlavor="NA" /> <code codeSystem="local" code="AMONR" displayName= "Absolute Monocytes" /> <statusCode code="completed" /> < effectiveTime value="079104973556" /> <value unit="10*3/uL" xsi:type= "PQ" value="0.41" /> <referenceRange> <observationRange> <text>0.30-1.00</text> </observationRange> </ referenceRange> </observation> </component> <component> <observation moodCode="EVN" classCode="OBS"> <templateId root= "216.840.1.725945.10.22.4.2" /> <id nullFlavor="NA" /> < code codeSystem="local" code="ASEGR" displayName="Absolute Neutrophils" /> <statusCode code="completed" /> <effectiveTime value="900229055120 " /> <value unit="10*3/uL" xsi:type="PQ" value="3.14" /> < referenceRange> <observationRange> <text>1.90-7.00</text > </observationRange> </referenceRange> </observation > </component> <component> <observation moodCode="EVN" classCode="OBS"> <templateId root="2.16.840.1.488002.10..22.4.2" /> <id nullFlavor="NA" /> <code codeSystem="local" code="BASOR" displayName="Basophils" /> <statusCode code="completed" /> < effectiveTime value="043441521716" /> <value unit="%" xsi:type="PQ " value="1" /> <referenceRange> <observationRange> <text>0-2</text> </observationRange> </referenceRange> </observation> </component> <component> <observation moodCode="EVN" classCode="OBS"> <templateId root= "2.16.840.1.598528.10..22.4.2" /> <id nullFlavor="NA" /> < code codeSystem="local" code="EOSR" displayName="Eosinophils" /> < statusCode code="completed" /> <effectiveTime value="307775814379" /> <value unit="%" xsi:type="PQ" value="6" /> < interpretationCode codeSystem="local" code="*" /> <referenceRange> <observationRange> <text>0-4</text> </ observationRange> </referenceRange> </observation> </ component> <component> <observation moodCode="EVN" classCode="OBS"> <templateId root="216.840.1.535939.10.22.4.2" /> <id nullFlavor="NA" /> <code codeSystem="local" code="HCT" displayName="HCT " /> <statusCode code="completed" /> <effectiveTime value= "412351321262" /> <value unit="%" xsi:type="PQ" value="35.6" /> <interpretationCode codeSystem="local" code="*" /> < referenceRange> <observationRange> <text>37.0-47.0</text > </observationRange> </referenceRange> </observation > </component> <component> <observation moodCode="EVN" classCode="OBS"> <templateId root="11.30.840.1.638702.08.03.224.2" /> <id nullFlavor="NA" /> <code codeSystem="local" code="HGB" displayName="HGB" /> <statusCode code="completed" /> < effectiveTime value="530551155160" /> <value unit="g/dL" xsi:type="PQ" value="11.6" /> <interpretationCode codeSystem="local" code="*" /> <referenceRange> <observationRange> <text>12.0- 16.0</text> </observationRange> </referenceRange> </ observation> </component> <component> <observation moodCode= "EVN" classCode="OBS"> <templateId root="11.30.840.1.327417.1022.4.2 " /> <id nullFlavor="NA" /> <code codeSystem="local" code= "IMGA" displayName="Immature Granulocytes" /> <statusCode code= "completed" /> <effectiveTime value="490244323295" /> <value unit="%" xsi:type="PQ" value="0.4" /> <referenceRange> < observationRange> <text>0.0-1.0</text> </ observationRange> </referenceRange> </observation> </ component> <component> <observation moodCode="EVN" classCode="OBS"> <templateId root="11.30.840.1.622188.10..4.2" /> <id nullFlavor="NA" /> <code codeSystem="local" code="LYMPR" displayName= "Lymphocytes" /> <statusCode code="completed" /> < effectiveTime value="670870387618" /> <value unit="%" xsi:type="PQ " value="30" /> <referenceRange> <observationRange> <text>20-46</text> </observationRange> </ referenceRange> </observation> </component> <component> <observation moodCode="EVN" classCode="OBS"> <templateId root= "11.30.840.1.863169.08.03.22.4.2" /> <id nullFlavor="NA" /> < code codeSystem="local" code="MCH" displayName="MCH" /> <statusCode code="completed" /> <effectiveTime value="959000274169" /> < value unit="pg" xsi:type="PQ" value="29.9" /> <referenceRange> <observationRange> <text>27.0-32.0</text> </ observationRange> </referenceRange> </observation> </ component> <component> <observation moodCode="EVN" classCode="OBS"> <templateId root="11.30.840.1.079276.10..22.4.2" /> <id nullFlavor="NA" /> <code codeSystem="local" code="MCHC" displayName= "MCHC" /> <statusCode code="completed" /> <effectiveTime value ="090657236671" /> <value unit="g/dL" xsi:type="PQ" value="32.6" /> <referenceRange> <observationRange> <text>32.0- 36.0</text> </observationRange> </referenceRange> </ observation> </component> <component> <observation moodCode= "EVN" classCode="OBS"> <templateId root="11.30.840.1.140087.10.20.22.4.2 " /> <id nullFlavor="NA" /> <code codeSystem="local" code="MCV " displayName="MCV" /> <statusCode code="completed" /> < effectiveTime value="884241195061" /> <value unit="fL" xsi:type="PQ" value="91.8" /> <referenceRange> <observationRange> <text>82.0-99.0</text> </observationRange> </ referenceRange> </observation> </component> <component> <observation moodCode="EVN" classCode="OBS"> <templateId root= "16.840.1.289448.10.20.22.4.2" /> <id nullFlavor="NA" /> < code codeSystem="local" code="MONOR" displayName="Monocytes" /> < statusCode code="completed" /> <effectiveTime value="390676072114" /> <value unit="%" xsi:type="PQ" value="7" /> <referenceRange > <observationRange> <text>4-11</text> </ observationRange> </referenceRange> </observation> </ component> <component> <observation moodCode="EVN" classCode="OBS"> <templateId root="11.30.840.1.484044.08.03.22.4.2" /> <id nullFlavor="NA" /> <code codeSystem="local" code="MPV" displayName="MPV " /> <statusCode code="completed" /> <effectiveTime value= "829122546736" /> <value unit="fL" xsi:type="PQ" value="10.0" /> <referenceRange> <observationRange> <text>9.4-12.4</ text> </observationRange> </referenceRange> </ observation> </component> <component> <observation moodCode= "EVN" classCode="OBS"> <templateId root="16.840.1.335326.08.03.22.4.2 " /> <id nullFlavor="NA" /> <code codeSystem="local" code= "SEGR" displayName="Neutrophils" /> <statusCode code="completed" /> <effectiveTime value="190595315177" /> <value unit="%" xsi: type="PQ" value="56" /> <referenceRange> <observationRange> <text>51-75</text> </observationRange> </ referenceRange> </observation> </component> <component> <observation moodCode="EVN" classCode="OBS"> <templateId root= "16.840.1.858358.08.03.22.4.2" /> <id nullFlavor="NA" /> < code codeSystem="local" code="NRBCA" displayName="Nucleated RBC Automated" /> <statusCode code="completed" /> <effectiveTime value= "802047921649" /> <value unit="/100WBC" xsi:type="PQ" value="0.0" /> <referenceRange> <observationRange> <text /> </observationRange> </referenceRange> </observation> </component> <component> <observation moodCode="EVN" classCode= "OBS"> <templateId root="840.1.371370.10.20.22.4.2" /> < id nullFlavor="NA" /> <code codeSystem="local" code="PLT" displayName= "Platelet Count" /> <statusCode code="completed" /> < effectiveTime value="044499234915" /> <value unit="K/uL" xsi:type="PQ" value="271" /> <referenceRange> <observationRange> <text>150-400</text> </observationRange> </ referenceRange> </observation> </component> <component> <observation moodCode="EVN" classCode="OBS"> <templateId root= "840.1.726578.1022.4.2" /> <id nullFlavor="NA" /> < code codeSystem="local" code="RBC" displayName="RBC" /> <statusCode code="completed" /> <effectiveTime value="635189019141" /> < value unit="10*6/uL" xsi:type="PQ" value="3.88" /> <interpretationCode codeSystem="local" code="*" /> <referenceRange> < observationRange> <text>4.00-5.20</text> </ observationRange> </referenceRange> </observation> </ component> <component> <observation moodCode="EVN" classCode="OBS"> <templateId root="840.1.889749.10.20.22.4.2" /> <id nullFlavor="NA" /> <code codeSystem="local" code="RDW" displayName="RDW " /> <statusCode code="completed" /> <effectiveTime value= "628817135579" /> <value unit="%" xsi:type="PQ" value="13.9" /> <referenceRange> <observationRange> <text>11.5- 14.5</text> </observationRange> </referenceRange> </ observation> </component> <component> <observation moodCode= "EVN" classCode="OBS"> <templateId root="11.30.840.1.253961.10.20.22.4.2 " /> <id nullFlavor="NA" /> <code codeSystem="local" code= "WBCIR" displayName="WBC" /> <statusCode code="completed" /> < effectiveTime value="[id number]" /> <value unit="K/uL" xsi:type="PQ" value="5.6" /> <referenceRange> <observationRange> <text>4.8-10.8</text> </observationRange> </ referenceRange> </observation> </component> </organizer> </entry > <entry> <organizer moodCode="EVN" classCode="BATTERY"> <templateId root="11.30.840.1.010198.10..22.4.1" /> <id nullFlavor="NA" /> <code codeSystem="local" code="UA" displayName="Urinalysis with reflex microscopic" / > <statusCode code="completed" /> <component> <observation moodCode="EVN" classCode="OBS"> <templateId root= "11.30.840.1.126218.10..22.4.2" /> <id nullFlavor="NA" /> < code codeSystem="local" code="UAPP" displayName="Appearance" /> < statusCode code="completed" /> <effectiveTime value="112352427697" /> <value unit="NA" xsi:type="PQ" value="Clear" /> < referenceRange> <observationRange> <text /> < /observationRange> </referenceRange> </observation> </ component> <component> <observation moodCode="EVN" classCode="OBS"> <templateId root="16.840.1.432180.08.03.22.4.2" /> <id nullFlavor="NA" /> <code codeSystem="local" code="UBIL" displayName= "Bilirubin" /> <statusCode code="completed" /> <effectiveTime value="" /> <value unit="NA" xsi:type="PQ" value="Negative " /> <referenceRange> <observationRange> <text> Negative</text> </observationRange> </referenceRange> </observation> </component> <component> <observation moodCode ="EVN" classCode="OBS"> <templateId root= "216.840.1.781512.08.03.22.4.2" /> <id nullFlavor="NA" /> < code codeSystem="local" code="UBLD" displayName="Blood" /> <statusCode code="completed" /> <effectiveTime value="" /> < value unit="NA" xsi:type="PQ" value="Negative" /> <referenceRange> <observationRange> <text>Negative</text> </ observationRange> </referenceRange> </observation> </ component> <component> <observation moodCode="EVN" classCode="OBS"> <templateId root="16.840.1.254391.10.4.2" /> <id nullFlavor="NA" /> <code codeSystem="local" code="UCOLR" displayName= "Color" /> <statusCode code="completed" /> <effectiveTime value="" /> <value unit="NA" xsi:type="PQ" value="Yellow" / > <referenceRange> <observationRange> <text /> </observationRange> </referenceRange> </observation > </component> <component> <observation moodCode="EVN" classCode="OBS"> <templateId root="216.840.1.076561.10.4.2" /> <id nullFlavor="NA" /> <code codeSystem="local" code="UGLU" displayName="Glucose, Urine" /> <statusCode code="completed" /> <effectiveTime value="" /> <value unit="" xsi:type="PQ" value="Negative" /> <referenceRange> <observationRange> <text>Negative</text> </observationRange> </ referenceRange> </observation> </component> <component> <observation moodCode="EVN" classCode="OBS"> <templateId root= "11.30.840.1.323801.08.03.22.4.2" /> <id nullFlavor="NA" /> < code codeSystem="local" code="UKET" displayName="Ketones" /> < statusCode code="completed" /> <effectiveTime value="" /> <value unit="" xsi:type="PQ" value="Negative" /> < referenceRange> <observationRange> <text>Negative</text > </observationRange> </referenceRange> </observation > </component> <component> <observation moodCode="EVN" classCode="OBS"> <templateId root="11.30.840.1.889397.10.4.2" /> <id nullFlavor="NA" /> <code codeSystem="local" code="ULEU" displayName="Leukocyte Esterase" /> <statusCode code="completed" /> <effectiveTime value="" /> <value unit="NA" xsi:type ="PQ" value="Negative" /> <referenceRange> <observationRange > <text>Negative</text> </observationRange> </ referenceRange> </observation> </component> <component> <observation moodCode="EVN" classCode="OBS"> <templateId root= "11.30.840.1.107890.10.4.2" /> <id nullFlavor="NA" /> < code codeSystem="local" code="UNIT" displayName="Nitrites" /> < statusCode code="completed" /> <effectiveTime value="" /> <value unit="NA" xsi:type="PQ" value="Negative" /> < referenceRange> <observationRange> <text>Negative</text > </observationRange> </referenceRange> </observation > </component> <component> <observation moodCode="EVN" classCode="OBS"> <templateId root="840.1.160973.08.03.22.4.2" /> <id nullFlavor="NA" /> <code codeSystem="local" code="UPH" displayName="pH" /> <statusCode code="completed" /> < effectiveTime value="" /> <value unit="NA" xsi:type="PQ" value="5.0" /> <referenceRange> <observationRange> <text>5.0-8.0</text> </observationRange> </ referenceRange> </observation> </component> <component> <observation moodCode="EVN" classCode="OBS"> <templateId root= "11.30.840.1.450149.08.03.22.4.2" /> <id nullFlavor="NA" /> < code codeSystem="local" code="UPRO" displayName="Protein" /> < statusCode code="completed" /> <effectiveTime value="" /> <value unit="NA" xsi:type="PQ" value="Negative" /> < referenceRange> <observationRange> <text>Negative</text > </observationRange> </referenceRange> </observation > </component> <component> <observation moodCode="EVN" classCode="OBS"> <templateId root="16.840.1.782171.10..4.2" /> <id nullFlavor="NA" /> <code codeSystem="local" code="USPG" displayName="Specific [place]" /> <statusCode code="completed" /> <effectiveTime value="085185112302" /> <value unit="NA" xsi:type= "PQ" value="1.015" /> <referenceRange> <observationRange> <text>1.003-1.030</text> </observationRange> </ referenceRange> </observation> </component> <component> <observation moodCode="EVN" classCode="OBS"> <templateId root= "11.30.840.1.725331.08.03.22.4.2" /> <id nullFlavor="NA" /> < code codeSystem="local" code="UTYP" displayName="UA Collection type" /> <statusCode code="completed" /> <effectiveTime value="063099878452" / > <value unit="NA" xsi:type="PQ" value="Clean Catch" /> < referenceRange> <observationRange> <text /> < /observationRange> </referenceRange> </observation> </ component> <component> <observation moodCode="EVN" classCode="OBS"> <templateId root="11.30.840.1.796462.08.03.22.4.2" /> <id nullFlavor="NA" /> <code codeSystem="local" code="UURO" displayName= "Urobilinogen" /> <statusCode code="completed" /> < effectiveTime value="091313924076" /> <value unit="mg/dL" xsi:type="PQ " value="Negative" /> <referenceRange> <observationRange> <text><1.0</text> </observationRange> </ referenceRange> </observation> </component> </organizer> </entry > <entry> <organizer moodCode="EVN" classCode="BATTERY"> <templateId root="216.840.1.321914.10..22.4.1" /> <id nullFlavor="NA" /> <code codeSystem="local" code="UPREG" displayName=" Screen, Urine" /> < statusCode code="completed" /> <component> <observation moodCode= "EVN" classCode="OBS"> <templateId root="216.840.1.373308.10..22.4.2 " /> <id nullFlavor="NA" /> <code codeSystem="local" code= "UPREG" displayName=" Screen, Urine" /> <statusCode code= "completed" /> <effectiveTime value="998443073484" /> <value unit="NA" xsi:type="PQ" value="Negative" /> <referenceRange> <observationRange> <text /> </observationRange> </referenceRange> </observation> </component> </organizer> < /entry> <entry> <organizer moodCode="EVN" classCode="BATTERY"> < templateId root="216.840.1.269613.10..22.4.1" /> <id nullFlavor="NA" /> <code codeSystem="local" code="VCHMN" displayName="Chem 8 NPT" /> < statusCode code="completed" /> <component> <observation moodCode= "EVN" classCode="OBS"> <templateId root="216.840.1.845727.10.22.4.2 " /> <id nullFlavor="NA" /> <code codeSystem="local" code= "VAGAP" displayName="Anion Gap" /> <statusCode code="completed" /> <effectiveTime value="574629559989" /> <value unit="mEq/L" xsi: type="PQ" value="13" /> <referenceRange> <observationRange> <text>3-20</text> </observationRange> </ referenceRange> </observation> </component> <component> <observation moodCode="EVN" classCode="OBS"> <templateId root= "11.30.840.1.239021.08.03.22.4.2" /> <id nullFlavor="NA" /> < code codeSystem="local" code="VBUNN" displayName="BUN Venous" /> < statusCode code="completed" /> <effectiveTime value="222024756053" /> <value unit="mg/dl" xsi:type="PQ" value="12" /> < referenceRange> <observationRange> <text>4-20</text> </observationRange> </referenceRange> </observation> </component> <component> <observation moodCode="EVN" classCode= "OBS"> <templateId root="11.30.840.1.222218.10.22.4.2" /> < id nullFlavor="NA" /> <code codeSystem="local" code="VCANN" displayName ="Calcium Ionized Venous" /> <statusCode code="completed" /> < effectiveTime value="623586110475" /> <value unit="mmol/L" xsi:type="PQ " value="1.13" /> <interpretationCode codeSystem="local" code="*" /> <referenceRange> <observationRange> <text>1.19- 1.41</text> </observationRange> </referenceRange> </ observation> </component> <component> <observation moodCode= "EVN" classCode="OBS"> <templateId root="216.840.1.381300.10..4.2 " /> <id nullFlavor="NA" /> <code codeSystem="local" code= "VCREN" displayName="Creatinine Venous" /> <statusCode code="completed " /> <effectiveTime value="718940922535" /> <value unit="mg/dL " xsi:type="PQ" value="0.7" /> <referenceRange> < observationRange> <text>0.4-1.0</text> </ observationRange> </referenceRange> </observation> </ component> <component> <observation moodCode="EVN" classCode="OBS"> <templateId root="11.30.840.1.340181.08.03.22.4.2" /> <id nullFlavor="NA" /> <code codeSystem="local" code="VGLNN" displayName= "Glucose Venous" /> <statusCode code="completed" /> < effectiveTime value="031142104163" /> <value unit="mg/dL" xsi:type="PQ " value="80" /> <referenceRange> <observationRange> <text>70-100</text> </observationRange> </ referenceRange> </observation> </component> <component> <observation moodCode="EVN" classCode="OBS"> <templateId root= "11.30.840.1.677718...4.2" /> <id nullFlavor="NA" /> < code codeSystem="local" code="VKNN" displayName="Potassium, WB" /> < statusCode code="completed" /> <effectiveTime value="002495572650" /> <value unit="mEq/L" xsi:type="PQ" value="3.9" /> < referenceRange> <observationRange> <text>3.6-5.1</text> </observationRange> </referenceRange> </observation > </component> <component> <observation moodCode="EVN" classCode="OBS"> <templateId root="216.840.1.480752.10..22.4.2" /> <id nullFlavor="NA" /> <code codeSystem="local" code="VNANN" displayName="Sodium Venous" /> <statusCode code="completed" /> <effectiveTime value="388558478877" /> <value unit="mEq/L" xsi:type= "PQ" value="140" /> <referenceRange> <observationRange> <text>136-144</text> </observationRange> </ referenceRange> </observation> </component> <component> <observation moodCode="EVN" classCode="OBS"> <templateId root= "216.840.1.786128.10...4.2" /> <id nullFlavor="NA" /> < code codeSystem="local" code="VTCNN" displayName="Total CO2 Venous" /> <statusCode code="completed" /> <effectiveTime value="484837983368" /> <value unit="mEq/L" xsi:type="PQ" value="21" /> < interpretationCode codeSystem="local" code="*" /> <referenceRange> <observationRange> <text>25-29</text> </ observationRange> </referenceRange> </observation> </ component> <component> <observation moodCode="EVN" classCode="OBS"> <templateId root="216.840.1.211241.10..22.4.2" /> <id nullFlavor="NA" /> <code codeSystem="local" code="VCLN" displayName= "Venous CL" /> <statusCode code="completed" /> <effectiveTime value="149949615476" /> <value unit="mEq/L" xsi:type="PQ" value="106" / > <referenceRange> <observationRange> <text>99- 109</text> </observationRange> </referenceRange> </ observation> </component> <component> <observation moodCode= "EVN" classCode="OBS"> <templateId root="2.16.840.1.003466.10.20.22.4.2 " /> <id nullFlavor="NA" /> <code codeSystem="local" code= "VHCNN" displayName="HCT Venous" /> <statusCode code="completed" /> <effectiveTime value="416962611070" /> <value unit="%" xsi: type="PQ" value="41.0" /> <referenceRange> <observationRange > <text>37.0-47.0</text> </observationRange> </ referenceRange> </observation> </component> <component> <observation moodCode="EVN" classCode="OBS"> <templateId root= "2.16.840.1.463170.10.20.22.4.2" /> <id nullFlavor="NA" /> < code codeSystem="local" code="VHGNN" displayName="HGB Venous NPT" /> < statusCode code="completed" /> <effectiveTime value="728414068610" /> <value unit="g/dL" xsi:type="PQ" value="13.9" /> < referenceRange> <observationRange> <text>12.0-16.0</text > </observationRange> </referenceRange> </observation > </component> </organizer> </entry> <entry> <organizer moodCode= "EVN" classCode="BATTERY"> <templateId root="216.840.1.332171.10..22.4.1 " /> <id nullFlavor="NA" /> <code codeSystem="local" code="PREGN" displayName=" Screen, Urine NPT" /> <statusCode code="completed" / > <component> <observation moodCode="EVN" classCode="OBS"> <templateId root="11.30.840.1.446327.10..4.2" /> <id nullFlavor="NA " /> <code codeSystem="local" code="PREGN" displayName=" Screen, Urine NPT" /> <statusCode code="completed" /> < effectiveTime value="333077670373" /> <value unit="NA" xsi:type="PQ" value="Negative" /> <referenceRange> <observationRange> <text /> </observationRange> </referenceRange> </observation> </component> </organizer> </entry> <entry> < organizer moodCode="EVN" classCode="BATTERY"> <templateId root= "11.30.840.1.560885.10...4.1" /> <id nullFlavor="NA" /> <code codeSystem="local" code="UA" displayName="URINALYSIS, ROUTINE" /> < statusCode code="completed" /> <component> <observation moodCode= "EVN" classCode="OBS"> <templateId root="11.30.840.1.051812.10..22.4.2 " /> <id nullFlavor="NA" /> <code codeSystem="local" code= "LEUESU" displayName="UA LEUKOCYTE ESTERASE DIPSTICK" /> <statusCode code="completed" /> <effectiveTime value="706702877200" /> < value unit="" xsi:type="PQ" value="NEGATIVE" /> <referenceRange> <observationRange> <text>NEGATIVE</text> </ observationRange> </referenceRange> </observation> </ component> <component> <observation moodCode="EVN" classCode="OBS"> <templateId root="11.30.840.1.885420.10..4.2" /> <id nullFlavor="NA" /> <code codeSystem="local" code="NITRIU" displayName= "UA NITRITE DIPSTICK" /> <statusCode code="completed" /> < effectiveTime value="592681662200" /> <value unit="" xsi:type="PQ" value="NEGATIVE" /> <referenceRange> <observationRange> <text>NEGATIVE</text> </observationRange> </ referenceRange> </observation> </component> <component> <observation moodCode="EVN" classCode="OBS"> <templateId root= "840.1.575994.08.03.22.4.2" /> <id nullFlavor="NA" /> < code codeSystem="local" code="PROTEIU" displayName="UA PROTEIN DIPSTICK" /> <statusCode code="completed" /> <effectiveTime value= "919033743175" /> <value unit="" xsi:type="PQ" value="NEGATIVE" /> <referenceRange> <observationRange> <text>NEGATIVE </text> </observationRange> </referenceRange> </ observation> </component> <component> <observation moodCode= "EVN" classCode="OBS"> <templateId root="840.1.358392.08.03.22.4.2 " /> <id nullFlavor="NA" /> <code codeSystem="local" code= "DGLUU" displayName="UA GLUCOSE DIPSTICK" /> <statusCode code= "completed" /> <effectiveTime value="460780354134" /> <value unit="" xsi:type="PQ" value="NEGATIVE" /> <referenceRange> < observationRange> <text>NEGATIVE</text> </ observationRange> </referenceRange> </observation> </ component> <component> <observation moodCode="EVN" classCode="OBS"> <templateId root="16.840.1.961844.08.03.22.4.2" /> <id nullFlavor="NA" /> <code codeSystem="local" code="KETONU" displayName= "UA KETONE DIPSTICK" /> <statusCode code="completed" /> < effectiveTime value="844175395036" /> <value unit="" xsi:type="PQ" value="NEGATIVE" /> <referenceRange> <observationRange> <text>NEGATIVE</text> </observationRange> </ referenceRange> </observation> </component> <component> <observation moodCode="EVN" classCode="OBS"> <templateId root= "11.30.840.1.841300.08.03.22.4.2" /> <id nullFlavor="NA" /> < code codeSystem="local" code="UROBILU" displayName="UA UROBILINOGEN DIPSTICK" / > <statusCode code="completed" /> <effectiveTime value= "218550533650" /> <value unit="" xsi:type="PQ" value="NORMAL" /> <referenceRange> <observationRange> <text>NORMAL</ text> </observationRange> </referenceRange> </ observation> </component> <component> <observation moodCode= "EVN" classCode="OBS"> <templateId root="16.840.1.118443.22.4.2 " /> <id nullFlavor="NA" /> <code codeSystem="local" code= "BILU" displayName="UA BILIRUBIN DIPSTICK" /> <statusCode code= "completed" /> <effectiveTime value="281632534398" /> <value unit="" xsi:type="PQ" value="NEGATIVE" /> <referenceRange> < observationRange> <text>NEGATIVE</text> </ observationRange> </referenceRange> </observation> </ component> <component> <observation moodCode="EVN" classCode="OBS"> <templateId root="216.840.1.783254.10..22.4.2" /> <id nullFlavor="NA" /> <code codeSystem="local" code="ABDELRAHMAN" displayName="UA BLOOD DIPSTICK" /> <statusCode code="completed" /> < effectiveTime value="201667985219" /> <value unit="" xsi:type="PQ" value="NEGATIVE" /> <referenceRange> <observationRange> <text>NEGATIVE</text> </observationRange> </ referenceRange> </observation> </component> <component> <observation moodCode="EVN" classCode="OBS"> <templateId root= "216.840.1.116350.10.20.22.4.2" /> <id nullFlavor="NA" /> < code codeSystem="local" code="SPGRU" displayName="UA SPECIFIC GRAVITY" /> <statusCode code="completed" /> <effectiveTime value="832472285535 " /> <value unit="" xsi:type="PQ" value="1.015" /> < referenceRange> <observationRange> <text>1.015-1.025</ text> </observationRange> </referenceRange> </ observation> </component> <component> <observation moodCode= "EVN" classCode="OBS"> <templateId root="16.840.1.645092.22.4.2 " /> <id nullFlavor="NA" /> <code codeSystem="local" code="COLTON " displayName="UR PH" /> <statusCode code="completed" /> < effectiveTime value="775827338847" /> <value unit="" xsi:type="PQ" value="6.5" /> <referenceRange> <observationRange> <text>5.0-7.0</text> </observationRange> </ referenceRange> </observation> </component> </organizer> </entry > <entry> <organizer moodCode="EVN" classCode="BATTERY"> <templateId root="16.840.1.920298.08.03.22.4.1" /> <id nullFlavor="NA" /> <code codeSystem="local" code="PREGU" displayName="UR TEST" /> < statusCode code="completed" /> <component> <observation moodCode= "EVN" classCode="OBS"> <templateId root="16.840.1.383832....4.2 " /> <id nullFlavor="NA" /> <code codeSystem="local" code= "PREGU" displayName="UR TEST" /> <statusCode code="completed " /> <effectiveTime value="523057816704" /> <value unit="" xsi :type="PQ" value="NEGATIVE" /> <referenceRange> < observationRange> <text>NEGATIVE</text> </ observationRange> </referenceRange> </observation> </ component> </organizer> </entry> <entry> <organizer moodCode="EVN" classCode="BATTERY"> <templateId root="16.840.1.674925.10..22.4.1" /> <id nullFlavor="NA" /> <code codeSystem="local" code="CHL" displayName ="CHLAMYDIA DNA BY PCR" /> <statusCode code="completed" /> <component > <observation moodCode="EVN" classCode="OBS"> <templateId root= "16.840.1.596943.10..22.4.2" /> <id nullFlavor="NA" /> < code codeSystem="local" code="MB" displayName="Microbiology" /> < statusCode code="completed" /> <effectiveTime value="302812572338" /> <value xsi:type="ST" value="<pre><b>CHLAMYDIA DNA BY PCR - GONORRHOEA DNA BY PCR</b> See BelowCHLAMYDIA DNA BY PCR(F) Isabella Date/Time: 2016 19:12 Laina Date/Time: 06/12/2017 09:32SOURCE : URINESPEC DESC: [address] [id number] BelowGONORRHOEA DNA BY PCR(F) Isabella Date/Time: 06/11/2017 19:12 Laina Date/Time: 06/12/2017 09:32SOURCE: URINESPEC DESC: [address] [address]</ pre>" /> <referenceRange> <observationRange> < text /> </observationRange> </referenceRange> </ observation> </component> </organizer> </entry> <entry> <organizer moodCode="EVN" classCode="BATTERY"> <templateId root= "11.30.840.1.185162.10..22.4.1" /> <id nullFlavor="NA" /> <code codeSystem="local" code="PREG" displayName=" TEST, SERUM" /> < statusCode code="completed" /> <component> <observation moodCode= "EVN" classCode="OBS"> <templateId root="11.30.840.1.158551...22.4.2 " /> <id nullFlavor="NA" /> <code codeSystem="local" code= "PREG" displayName=" TEST, SERUM" /> <statusCode code= "completed" /> <effectiveTime value="733443526129" /> <value unit="" xsi:type="PQ" value="NEGATIVE" /> <referenceRange> < observationRange> <text>NEGATIVE</text> </ observationRange> </referenceRange> </observation> </ component> </organizer> </entry> <entry> <organizer moodCode="EVN" classCode="BATTERY"> <templateId root="216.840.1.066586.08.03.22.4.1" /> <id nullFlavor="NA" /> <code codeSystem="local" code="RPR" displayName ="RAPID PLASMA REAGIN" /> <statusCode code="completed" /> <component> <observation moodCode="EVN" classCode="OBS"> <templateId root= "216.840.1.278436.10...4.2" /> <id nullFlavor="NA" /> < code codeSystem="local" code="RPR" displayName="RAPID PLASMA REAGIN" /> <statusCode code="completed" /> <effectiveTime value="425631079390" / > <value unit="" xsi:type="PQ" value="NONREACTIVE" /> < referenceRange> <observationRange> <text>NONREACTIVE</ text> </observationRange> </referenceRange> </ observation> </component> </organizer> </entry> <entry> <organizer moodCode="EVN" classCode="BATTERY"> <templateId root= "16.840.1.346239.10.22.4.1" /> <id nullFlavor="NA" /> <code codeSystem="local" code="HIV" displayName="HIV" /> <statusCode code= "completed" /> <component> <observation moodCode="EVN" classCode= "OBS"> <templateId root="216.840.1.255409.10..4.2" /> < id nullFlavor="NA" /> <code codeSystem="local" code="[id number]" displayName="AB HIV 1 2" /> <statusCode code="completed" /> <effectiveTime value="648078951010" /> <value unit="" xsi:type="PQ" value="NEGATIVE" /> <referenceRange> <observationRange> <text>NEGATIVE</text> </observationRange> </ referenceRange> </observation> </component> <component> <observation moodCode="EVN" classCode="OBS"> <templateId root= "11.30.840.1.444452.08.03.22.4.2" /> <id nullFlavor="NA" /> < code codeSystem="local" code="[id number]" displayName="HIV 1 P24 AG" /> <statusCode code="completed" /> <effectiveTime value="" /> <value unit="" xsi:type="PQ" value="NEGATIVE" /> < referenceRange> <observationRange> <text>NEGATIVE</text > </observationRange> </referenceRange> </observation > </component> </organizer> </entry> <entry> <organizer moodCode= "EVN" classCode="BATTERY"> <templateId root="11.30.840.1.585571...4.1 " /> <id nullFlavor="NA" /> <code codeSystem="local" code="WET" displayName="WET MOUNT" /> <statusCode code="completed" /> <component > <observation moodCode="EVN" classCode="OBS"> <templateId root= "2.16.840.1.920856.10.20.22.4.2" /> <id nullFlavor="NA" /> < code codeSystem="local" code="MB" displayName="Microbiology" /> < statusCode code="completed" /> <effectiveTime value="818484375865" /> <value xsi:type="ST" value="<pre><b>WET MOUNT</b> See BelowWET MOUNT(F ) Isabella Date/Time: 06/11/2017 20:32 Laina Date/Time: 06/11/2017 20:45SOURCE: VAGINALSPEC DESC: CLUE CELLS ( Abnormal)MODERATE CLUE CELLS PRESENT (Abnormal)TRICHOMONASNO TRICHOMONAS SEENWBCFEW WBCYEASTNO YEAST SEENSIOU[facility] [place] [address]</pre>" /> <referenceRange> <observationRange> <text /> </observationRange> </referenceRange> </observation> </component> </organizer> </entry> <entry> < organizer moodCode="EVN" classCode="BATTERY"> <templateId root= "2.16.840.1.709030.10..22.4.1" /> <id nullFlavor="NA" /> <code codeSystem="local" code="GRAM" displayName="GRAM STAIN - CHLAMYDIA DNA BY PCR" / > <statusCode code="completed" /> <component> <observation moodCode="EVN" classCode="OBS"> <templateId root= "2.16.840.1.628622.10.20.22.4.2" /> <id nullFlavor="NA" /> < code codeSystem="local" code="MB" displayName="Microbiology" /> < statusCode code="completed" /> <effectiveTime value="966070162861" /> <value xsi:type="ST" value="<pre><b>GRAM STAIN</b> See BelowGRAM STAIN( F) Isabella Date/Time: 06/11/2017 20:32 Laina Date/Time: 06/11/2017 20:52SOURCE: VAGINALSPEC DESC: GRAM STAINRARE NEUTROPHILSMANY GRAM VARIABLE BACILLI RESEMBLING G. VAGINALISNO ORGANISMS SEEN RESEMBLING NEISSERIA [facility]ONORRHOEAESIOU[facility]ALTH[address] [place] [address]</pre>" /> <referenceRange> <observationRange> <text /> </observationRange> </referenceRange> </observation> </component> </organizer> </entry> <entry> < organizer moodCode="EVN" classCode="BATTERY"> <templateId root= "2.16.840.1.787361.10.20.22.4.1" /> <id nullFlavor="NA" /> <code codeSystem="local" code="CBCWD" displayName="CBC With Platelet and Differential " /> <statusCode code="completed" /> <component> <observation moodCode="EVN" classCode="OBS"> <templateId root= "2.16.840.1.419840.10.20.22.4.2" /> <id nullFlavor="NA" /> < code codeSystem="local" code="ABASR" displayName="Absolute Basophils" /> <statusCode code="completed" /> <effectiveTime value="[id number]" /> <value unit="10*3/uL" xsi:type="PQ" value="0.06" /> < referenceRange> <observationRange> <text>0.00-0.20</text > </observationRange> </referenceRange> </observation > </component> <component> <observation moodCode="EVN" classCode="OBS"> <templateId root="2.16.840.1.449984.10.20.22.4.2" /> <id nullFlavor="NA" /> <code codeSystem="local" code="AEOSR" displayName="Absolute Eosinophils" /> <statusCode code="completed" /> <effectiveTime value="526064646807" /> <value unit="10*3/uL" xsi:type="PQ" value="0.46" /> <referenceRange> < observationRange> <text>0.00-0.50</text> </ observationRange> </referenceRange> </observation> </ component> <component> <observation moodCode="EVN" classCode="OBS"> <templateId root="216.840.1.557252.10..4.2" /> <id nullFlavor="NA" /> <code codeSystem="local" code="ALYMR" displayName= "Absolute Lymphocytes" /> <statusCode code="completed" /> < effectiveTime value="473346582119" /> <value unit="10*3/uL" xsi:type= "PQ" value="2.05" /> <referenceRange> <observationRange> <text>0.80-3.30</text> </observationRange> </ referenceRange> </observation> </component> <component> <observation moodCode="EVN" classCode="OBS"> <templateId root= "16.840.1.565727....4.2" /> <id nullFlavor="NA" /> < code codeSystem="local" code="AMONR" displayName="Absolute Monocytes" /> <statusCode code="completed" /> <effectiveTime value="042130078638" /> <value unit="10*3/uL" xsi:type="PQ" value="0.53" /> < referenceRange> <observationRange> <text>0.30-1.00</text > </observationRange> </referenceRange> </observation > </component> <component> <observation moodCode="EVN" classCode="OBS"> <templateId root="216.840.1.137934.08.03.22.4.2" /> <id nullFlavor="NA" /> <code codeSystem="local" code="ASEGR" displayName="Absolute Neutrophils" /> <statusCode code="completed" /> <effectiveTime value="725611448005" /> <value unit="10*3/uL" xsi:type="PQ" value="4.64" /> <referenceRange> < observationRange> <text>1.90-7.00</text> </ observationRange> </referenceRange> </observation> </ component> <component> <observation moodCode="EVN" classCode="OBS"> <templateId root="216.840.1.735535.08.03.22.4.2" /> <id nullFlavor="NA" /> <code codeSystem="local" code="BASOR" displayName= "Basophils" /> <statusCode code="completed" /> <effectiveTime value="050817845142" /> <value unit="%" xsi:type="PQ" value="1" /> <referenceRange> <observationRange> <text>0-2< /text> </observationRange> </referenceRange> </ observation> </component> <component> <observation moodCode= "EVN" classCode="OBS"> <templateId root="16.840.1.875543.10..4.2 " /> <id nullFlavor="NA" /> <code codeSystem="local" code= "EOSR" displayName="Eosinophils" /> <statusCode code="completed" /> <effectiveTime value="026144185605" /> <value unit="%" xsi: type="PQ" value="6" /> <interpretationCode codeSystem="local" code="*" /> <referenceRange> <observationRange> <text>0- 4</text> </observationRange> </referenceRange> </ observation> </component> <component> <observation moodCode= "EVN" classCode="OBS"> <templateId root="216.840.1.719655.10.22.4.2 " /> <id nullFlavor="NA" /> <code codeSystem="local" code="HCT " displayName="HCT" /> <statusCode code="completed" /> < effectiveTime value="786667972006" /> <value unit="%" xsi:type="PQ " value="38.9" /> <referenceRange> <observationRange> <text>37.0-47.0</text> </observationRange> </ referenceRange> </observation> </component> <component> <observation moodCode="EVN" classCode="OBS"> <templateId root= "2.840.1.132104.08.03.22.4.2" /> <id nullFlavor="NA" /> < code codeSystem="local" code="HGB" displayName="HGB" /> <statusCode code="completed" /> <effectiveTime value="487119365395" /> < value unit="g/dL" xsi:type="PQ" value="13.4" /> <referenceRange> <observationRange> <text>12.0-16.0</text> </ observationRange> </referenceRange> </observation> </ component> <component> <observation moodCode="EVN" classCode="OBS"> <templateId root="216.840.1.144892..2022.4.2" /> <id nullFlavor="NA" /> <code codeSystem="local" code="IMGA" displayName= "Immature Granulocytes" /> <statusCode code="completed" /> < effectiveTime value="951889775193" /> <value unit="%" xsi:type="PQ " value="0.1" /> <referenceRange> <observationRange> <text>0.0-1.0</text> </observationRange> </ referenceRange> </observation> </component> <component> <observation moodCode="EVN" classCode="OBS"> <templateId root= "16.840.1.250524.10.2022.4.2" /> <id nullFlavor="NA" /> < code codeSystem="local" code="LYMPR" displayName="Lymphocytes" /> < statusCode code="completed" /> <effectiveTime value="478850949675" /> <value unit="%" xsi:type="PQ" value="27" /> < referenceRange> <observationRange> <text>20-46</text> </observationRange> </referenceRange> </observation> </component> <component> <observation moodCode="EVN" classCode= "OBS"> <templateId root="11.30.840.1.852230.10.22.4.2" /> < id nullFlavor="NA" /> <code codeSystem="local" code="MCH" displayName= "MCH" /> <statusCode code="completed" /> <effectiveTime value= "962173973044" /> <value unit="pg" xsi:type="PQ" value="31.2" /> <referenceRange> <observationRange> <text>27.0-32.0< /text> </observationRange> </referenceRange> </ observation> </component> <component> <observation moodCode= "EVN" classCode="OBS"> <templateId root="11.30.840.1.833810.10.2022.4.2 " /> <id nullFlavor="NA" /> <code codeSystem="local" code= "MCHC" displayName="MCHC" /> <statusCode code="completed" /> < effectiveTime value="464596451998" /> <value unit="g/dL" xsi:type="PQ" value="34.4" /> <referenceRange> <observationRange> <text>32.0-36.0</text> </observationRange> </ referenceRange> </observation> </component> <component> <observation moodCode="EVN" classCode="OBS"> <templateId root= "11.30.840.1.515632.10.22.4.2" /> <id nullFlavor="NA" /> < code codeSystem="local" code="MCV" displayName="MCV" /> <statusCode code="completed" /> <effectiveTime value="059557391993" /> < value unit="fL" xsi:type="PQ" value="90.7" /> <referenceRange> <observationRange> <text>82.0-99.0</text> </ observationRange> </referenceRange> </observation> </ component> <component> <observation moodCode="EVN" classCode="OBS"> <templateId root="11.30.840.1.370653..22.4.2" /> <id nullFlavor="NA" /> <code codeSystem="local" code="MONOR" displayName= "Monocytes" /> <statusCode code="completed" /> <effectiveTime value="257762873201" /> <value unit="%" xsi:type="PQ" value="7" /> <referenceRange> <observationRange> <text>4-11 </text> </observationRange> </referenceRange> </ observation> </component> <component> <observation moodCode= "EVN" classCode="OBS"> <templateId root="11.30.840.1.584525.4.2 " /> <id nullFlavor="NA" /> <code codeSystem="local" code="MPV " displayName="MPV" /> <statusCode code="completed" /> < effectiveTime value="857907904928" /> <value unit="fL" xsi:type="PQ" value="10.9" /> <referenceRange> <observationRange> <text>9.4-12.4</text> </observationRange> </ referenceRange> </observation> </component> <component> <observation moodCode="EVN" classCode="OBS"> <templateId root= "216.840.1.674572.08.03.224.2" /> <id nullFlavor="NA" /> < code codeSystem="local" code="SEGR" displayName="Neutrophils" /> < statusCode code="completed" /> <effectiveTime value="269935705464" /> <value unit="%" xsi:type="PQ" value="60" /> < referenceRange> <observationRange> <text>51-75</text> </observationRange> </referenceRange> </observation> </component> <component> <observation moodCode="EVN" classCode= "OBS"> <templateId root="2.16.840.1.713578.08.03.22.4.2" /> < id nullFlavor="NA" /> <code codeSystem="local" code="NRBCA" displayName ="Nucleated RBC Automated" /> <statusCode code="completed" /> <effectiveTime value="251978652925" /> <value unit="/100WBC" xsi:type= "PQ" value="0.0" /> <referenceRange> <observationRange> <text /> </observationRange> </referenceRange> </observation> </component> <component> <observation moodCode="EVN" classCode="OBS"> <templateId root= "16.840.1.088143.10.20.22.4.2" /> <id nullFlavor="NA" /> < code codeSystem="local" code="PLT" displayName="Platelet Count" /> < statusCode code="completed" /> <effectiveTime value="075179323045" /> <value unit="K/uL" xsi:type="PQ" value="255" /> < referenceRange> <observationRange> <text>150-400</text> </observationRange> </referenceRange> </observation > </component> <component> <observation moodCode="EVN" classCode="OBS"> <templateId root="11.30.840.1.365571.10..22.4.2" /> <id nullFlavor="NA" /> <code codeSystem="local" code="RBC" displayName="RBC" /> <statusCode code="completed" /> < effectiveTime value="965073646708" /> <value unit="10*6/uL" xsi:type= "PQ" value="4.29" /> <referenceRange> <observationRange> <text>4.00-5.20</text> </observationRange> </ referenceRange> </observation> </component> <component> <observation moodCode="EVN" classCode="OBS"> <templateId root= "11.30.840.1.189766.10.20.22.4.2" /> <id nullFlavor="NA" /> < code codeSystem="local" code="RDW" displayName="RDW" /> <statusCode code="completed" /> <effectiveTime value="540486613057" /> < value unit="%" xsi:type="PQ" value="13.6" /> <referenceRange> <observationRange> <text>11.5-14.5</text> </ observationRange> </referenceRange> </observation> </ component> <component> <observation moodCode="EVN" classCode="OBS"> <templateId root="2.16.840.1.754820.10..22.4.2" /> <id nullFlavor="NA" /> <code codeSystem="local" code="WBCIR" displayName= "WBC" /> <statusCode code="completed" /> <effectiveTime value= "986514928304" /> <value unit="K/uL" xsi:type="PQ" value="7.8" /> <referenceRange> <observationRange> <text>4.8-10.8< /text> </observationRange> </referenceRange> </ observation> </component> </organizer> </entry> <entry> <organizer moodCode="EVN" classCode="BATTERY"> <templateId root= "2.16.840.1.952344.10..22.4.1" /> <id nullFlavor="NA" /> <code codeSystem="local" code="CMP" displayName="Comprehensive Metabolic Panel (CMP)" /> <statusCode code="completed" /> <component> <observation moodCode="EVN" classCode="OBS"> <templateId root= "2.16.840.1.843497.10..22.4.2" /> <id nullFlavor="NA" /> < code codeSystem="local" code="ALB" displayName="Albumin" /> < statusCode code="completed" /> <effectiveTime value="172339556874" /> <value unit="g/dL" xsi:type="PQ" value="4.2" /> < referenceRange> <observationRange> <text>3.5-4.8</text> </observationRange> </referenceRange> </observation > </component> <component> <observation moodCode="EVN" classCode="OBS"> <templateId root="16.840.1.365801.10..22.4.2" /> <id nullFlavor="NA" /> <code codeSystem="local" code="ALP" displayName="Alkaline Phosphatase" /> <statusCode code="completed" /> <effectiveTime value="" /> <value unit="U/L" xsi: type="PQ" value="57" /> <referenceRange> <observationRange> <text>26-104</text> </observationRange> </ referenceRange> </observation> </component> <component> <observation moodCode="EVN" classCode="OBS"> <templateId root= "16.840.1.304766.10...4.2" /> <id nullFlavor="NA" /> < code codeSystem="local" code="ALT" displayName="ALT (SGPT)" /> < statusCode code="completed" /> <effectiveTime value="" /> <value unit="U/L" xsi:type="PQ" value="12" /> < interpretationCode codeSystem="local" code="*" /> <referenceRange> <observationRange> <text>14-54</text> </ observationRange> </referenceRange> </observation> </ component> <component> <observation moodCode="EVN" classCode="OBS"> <templateId root="11.30.840.1.371840.10..22.4.2" /> <id nullFlavor="NA" /> <code codeSystem="local" code="AGAP" displayName= "Anion Gap" /> <statusCode code="completed" /> <effectiveTime value="" /> <value unit="mEq/L" xsi:type="PQ" value="7" /> <referenceRange> <observationRange> <text>3-20 </text> </observationRange> </referenceRange> </ observation> </component> <component> <observation moodCode= "EVN" classCode="OBS"> <templateId root="216.840.1.227841.10.20.22.4.2 " /> <id nullFlavor="NA" /> <code codeSystem="local" code="AST " displayName="AST (SGOT)" /> <statusCode code="completed" /> <effectiveTime value="115276688511" /> <value unit="U/L" xsi:type="PQ" value="12" /> <interpretationCode codeSystem="local" code="*" /> <referenceRange> <observationRange> <text>15-41</ text> </observationRange> </referenceRange> </ observation> </component> <component> <observation moodCode= "EVN" classCode="OBS"> <templateId root="11.30.840.1.470956...4.2 " /> <id nullFlavor="NA" /> <code codeSystem="local" code= "BILIT" displayName="Bilirubin Total" /> <statusCode code="completed" / > <effectiveTime value="649162305440" /> <value unit="mg/dL" xsi:type="PQ" value="0.5" /> <referenceRange> < observationRange> <text>0.2-1.2</text> </ observationRange> </referenceRange> </observation> </ component> <component> <observation moodCode="EVN" classCode="OBS"> <templateId root="11.30.840.1.377809.10.20.22.4.2" /> <id nullFlavor="NA" /> <code codeSystem="local" code="BUN" displayName="BUN " /> <statusCode code="completed" /> <effectiveTime value= "549121185396" /> <value unit="mg/dL" xsi:type="PQ" value="6" /> <referenceRange> <observationRange> <text>4-20</text > </observationRange> </referenceRange> </observation > </component> <component> <observation moodCode="EVN" classCode="OBS"> <templateId root="11.30.840.1.838035.08.03.22.4.2" /> <id nullFlavor="NA" /> <code codeSystem="local" code="CA" displayName="Calcium" /> <statusCode code="completed" /> < effectiveTime value="578662418484" /> <value unit="mg/dL" xsi:type="PQ " value="9.3" /> <referenceRange> <observationRange> <text>8.6-10.0</text> </observationRange> </ referenceRange> </observation> </component> <component> <observation moodCode="EVN" classCode="OBS"> <templateId root= "11.30.840.1.986678.08.03.22.4.2" /> <id nullFlavor="NA" /> < code codeSystem="local" code="CL" displayName="Chloride" /> < statusCode code="completed" /> <effectiveTime value="870344179530" /> <value unit="mEq/L" xsi:type="PQ" value="108" /> < referenceRange> <observationRange> <text>99-109</text> </observationRange> </referenceRange> </observation> </component> <component> <observation moodCode="EVN" classCode ="OBS"> <templateId root="11.30.840.1.271535...4.2" /> < id nullFlavor="NA" /> <code codeSystem="local" code="CO2" displayName= "CO2" /> <statusCode code="completed" /> <effectiveTime value= "634779975086" /> <value unit="mEq/L" xsi:type="PQ" value="23" /> <referenceRange> <observationRange> <text>22-32</ text> </observationRange> </referenceRange> </ observation> </component> <component> <observation moodCode= "EVN" classCode="OBS"> <templateId root="216.840.1.507705.10...4.2 " /> <id nullFlavor="NA" /> <code codeSystem="local" code= "CREAT" displayName="Creatinine" /> <statusCode code="completed" /> <effectiveTime value="845746261156" /> <value unit="mg/dL" xsi: type="PQ" value="0.73" /> <referenceRange> <observationRange > <text>0.44-1.03</text> </observationRange> </ referenceRange> </observation> </component> <component> <observation moodCode="EVN" classCode="OBS"> <templateId root= "2.16.840.1.244258.10..22.4.2" /> <id nullFlavor="NA" /> < code codeSystem="local" code="GLOB" displayName="Globulin" /> < statusCode code="completed" /> <effectiveTime value="933978313634" /> <value unit="g/dL" xsi:type="PQ" value="2.8" /> < referenceRange> <observationRange> <text>1.9-4.3</text> </observationRange> </referenceRange> </observation > </component> <component> <observation moodCode="EVN" classCode="OBS"> <templateId root="16.840.1.010321.10.22.4.2" /> <id nullFlavor="NA" /> <code codeSystem="local" code="GLU" displayName="Glucose" /> <statusCode code="completed" /> < effectiveTime value="" /> <value unit="mg/dL" xsi:type="PQ " value="89" /> <referenceRange> <observationRange> <text>70-100</text> </observationRange> </ referenceRange> </observation> </component> <component> <observation moodCode="EVN" classCode="OBS"> <templateId root= "11.30.840.1.936269.08.03.22.4.2" /> <id nullFlavor="NA" /> < code codeSystem="local" code="K" displayName="Potassium" /> < statusCode code="completed" /> <effectiveTime value="" /> <value unit="mEq/L" xsi:type="PQ" value="3.6" /> < referenceRange> <observationRange> <text>3.6-5.1</text> </observationRange> </referenceRange> </observation > </component> <component> <observation moodCode="EVN" classCode="OBS"> <templateId root="11.30.840.1.647162.22.4.2" /> <id nullFlavor="NA" /> <code codeSystem="local" code="TP" displayName="Protein" /> <statusCode code="completed" /> < effectiveTime value="" /> <value unit="g/dL" xsi:type="PQ" value="7.0" /> <referenceRange> <observationRange> <text>6.1-7.9</text> </observationRange> </ referenceRange> </observation> </component> <component> <observation moodCode="EVN" classCode="OBS"> <templateId root= "2.16.840.1.300300.10..22.4.2" /> <id nullFlavor="NA" /> < code codeSystem="local" code="NA" displayName="Sodium" /> <statusCode code="completed" /> <effectiveTime value="437214845664" /> < value unit="mEq/L" xsi:type="PQ" value="138" /> <referenceRange> <observationRange> <text>136-144</text> </ observationRange> </referenceRange> </observation> </ component> </organizer> </entry> <entry> <organizer moodCode="EVN" classCode="BATTERY"> <templateId root="2.16.840.1.712171.10..22.4.1" /> <id nullFlavor="NA" /> <code codeSystem="local" code="LIPA" displayName="Lipase" /> <statusCode code="completed" /> <component> <observation moodCode="EVN" classCode="OBS"> <templateId root= "2.16.840.1.099678.10..22.4.2" /> <id nullFlavor="NA" /> < code codeSystem="local" code="LIPA" displayName="Lipase" /> < statusCode code="completed" /> <effectiveTime value="686722221643" /> <value unit="U/L" xsi:type="PQ" value="20" /> <referenceRange > <observationRange> <text>8-48</text> </ observationRange> </referenceRange> </observation> </ component> </organizer> </entry> <entry> <organizer moodCode="EVN" classCode="BATTERY"> <templateId root="16.840.1.937412.10.4.1" /> <id nullFlavor="NA" /> <code codeSystem="local" code="GFR" displayName ="eGFR" /> <statusCode code="completed" /> <component> < observation moodCode="EVN" classCode="OBS"> <templateId root= "840.1.680807.08.03.22.4.2" /> <id nullFlavor="NA" /> < code codeSystem="local" code="GFR" displayName="eGFR" /> <statusCode code="completed" /> <effectiveTime value="941463997408" /> < value unit="mL/min" xsi:type="PQ" value=">60" /> <referenceRange> <observationRange> <text>>60</text> </ observationRange> </referenceRange> </observation> </ component> </organizer> </entry> <entry> <organizer moodCode="EVN" classCode="BATTERY"> <templateId root="11.30.840.1.212447.08.03.224.1" /> <id nullFlavor="NA" /> <code codeSystem="local" code="UA" displayName= "Urinalysis with reflex microscopic" /> <statusCode code="completed" /> <component> <observation moodCode="EVN" classCode="OBS"> < templateId root="11.30.840.1.710211.10.4.2" /> <id nullFlavor="NA " /> <code codeSystem="local" code="UAPP" displayName="Appearance" /> <statusCode code="completed" /> <effectiveTime value= "067410738831" /> <value unit="NA" xsi:type="PQ" value="Turbid" /> <interpretationCode codeSystem="local" code="*" /> < referenceRange> <observationRange> <text /> < /observationRange> </referenceRange> </observation> </ component> <component> <observation moodCode="EVN" classCode="OBS"> <templateId root="11.30.840.1.910268.10.4.2" /> <id nullFlavor="NA" /> <code codeSystem="local" code="UBIL" displayName= "Bilirubin" /> <statusCode code="completed" /> <effectiveTime value="" /> <value unit="NA" xsi:type="PQ" value="Negative " /> <referenceRange> <observationRange> <text> Negative</text> </observationRange> </referenceRange> </observation> </component> <component> <observation moodCode ="EVN" classCode="OBS"> <templateId root= "840.1.855003.08.03.224.2" /> <id nullFlavor="NA" /> < code codeSystem="local" code="UBLD" displayName="Blood" /> <statusCode code="completed" /> <effectiveTime value="" /> < value unit="NA" xsi:type="PQ" value="Pos 1+" /> <interpretationCode codeSystem="local" code="*" /> <referenceRange> < observationRange> <text>Negative</text> </ observationRange> </referenceRange> </observation> </ component> <component> <observation moodCode="EVN" classCode="OBS"> <templateId root="11.30.840.1.109887.08.03.22.4.2" /> <id nullFlavor="NA" /> <code codeSystem="local" code="UCOLR" displayName= "Color" /> <statusCode code="completed" /> <effectiveTime value="" /> <value unit="NA" xsi:type="PQ" value="Aliza" / > <interpretationCode codeSystem="local" code="*" /> < referenceRange> <observationRange> <text /> < /observationRange> </referenceRange> </observation> </ component> <component> <observation moodCode="EVN" classCode="OBS"> <templateId root="11.30.840.1.465583.08.03.22.4.2" /> <id nullFlavor="NA" /> <code codeSystem="local" code="UGLU" displayName= "Glucose, Urine" /> <statusCode code="completed" /> < effectiveTime value="" /> <value unit="" xsi:type="PQ" value="Negative" /> <referenceRange> <observationRange> <text>Negative</text> </observationRange> </ referenceRange> </observation> </component> <component> <observation moodCode="EVN" classCode="OBS"> <templateId root= "11.30.840.1.343002.08.03.22.4.2" /> <id nullFlavor="NA" /> < code codeSystem="local" code="UKET" displayName="Ketones" /> < statusCode code="completed" /> <effectiveTime value="" /> <value unit="" xsi:type="PQ" value="Negative" /> < referenceRange> <observationRange> <text>Negative</text > </observationRange> </referenceRange> </observation > </component> <component> <observation moodCode="EVN" classCode="OBS"> <templateId root="11.30.840.1.640770.08.03.22.4.2" /> <id nullFlavor="NA" /> <code codeSystem="local" code="ULEU" displayName="Leukocyte Esterase" /> <statusCode code="completed" /> <effectiveTime value="" /> <value unit="NA" xsi:type ="PQ" value="Pos 3+" /> <interpretationCode codeSystem="local" code="* " /> <referenceRange> <observationRange> <text> Negative</text> </observationRange> </referenceRange> </observation> </component> <component> <observation moodCode ="EVN" classCode="OBS"> <templateId root= "216.840.1.521888.10..22.4.2" /> <id nullFlavor="NA" /> < code codeSystem="local" code="UNIT" displayName="Nitrites" /> < statusCode code="completed" /> <effectiveTime value="" /> <value unit="NA" xsi:type="PQ" value="Negative" /> < referenceRange> <observationRange> <text>Negative</text > </observationRange> </referenceRange> </observation > </component> <component> <observation moodCode="EVN" classCode="OBS"> <templateId root="216.840.1.781049.10..22.4.2" /> <id nullFlavor="NA" /> <code codeSystem="local" code="UPH" displayName="pH" /> <statusCode code="completed" /> < effectiveTime value="" /> <value unit="NA" xsi:type="PQ" value="7.0" /> <referenceRange> <observationRange> <text>5.0-8.0</text> </observationRange> </ referenceRange> </observation> </component> <component> <observation moodCode="EVN" classCode="OBS"> <templateId root= "16.840.1.677845.10..22.4.2" /> <id nullFlavor="NA" /> < code codeSystem="local" code="UPRO" displayName="Protein" /> < statusCode code="completed" /> <effectiveTime value="219117842344" /> <value unit="NA" xsi:type="PQ" value="Pos 2+" /> < interpretationCode codeSystem="local" code="*" /> <referenceRange> <observationRange> <text>Negative</text> </ observationRange> </referenceRange> </observation> </ component> <component> <observation moodCode="EVN" classCode="OBS"> <templateId root="11.30.840.1.810128.08.03.22.4.2" /> <id nullFlavor="NA" /> <code codeSystem="local" code="USPG" displayName= "Specific [place]" /> <statusCode code="completed" /> < effectiveTime value="881364858648" /> <value unit="NA" xsi:type="PQ" value="1.015" /> <referenceRange> <observationRange> <text>1.003-1.030</text> </observationRange> </ referenceRange> </observation> </component> <component> <observation moodCode="EVN" classCode="OBS"> <templateId root= "16.840.1.683700.10..4.2" /> <id nullFlavor="NA" /> < code codeSystem="local" code="UTYP" displayName="UA Collection type" /> <statusCode code="completed" /> <effectiveTime value="[id number]" / > <value unit="NA" xsi:type="PQ" value="Clean Catch" /> < referenceRange> <observationRange> <text /> < /observationRange> </referenceRange> </observation> </ component> <component> <observation moodCode="EVN" classCode="OBS"> <templateId root="216.840.1.121733.10.4.2" /> <id nullFlavor="NA" /> <code codeSystem="local" code="UURO" displayName= "Urobilinogen" /> <statusCode code="completed" /> < effectiveTime value="069801155046" /> <value unit="mg/dL" xsi:type="PQ " value="Negative" /> <referenceRange> <observationRange> <text><1.0</text> </observationRange> </ referenceRange> </observation> </component> </organizer> </entry > <entry> <organizer moodCode="EVN" classCode="BATTERY"> <templateId root="216.840.1.222751.10..22.4.1" /> <id nullFlavor="NA" /> <code codeSystem="local" code="UMIC" displayName="Urine Microscopic" /> < statusCode code="completed" /> <component> <observation moodCode= "EVN" classCode="OBS"> <templateId root="216.840.1.771546.10..22.4.2 " /> <id nullFlavor="NA" /> <code codeSystem="local" code= "UTRIC" displayName="Trichomonas" /> <statusCode code="completed" /> <effectiveTime value="420279444345" /> <value unit="NA" xsi: type="PQ" value="Present" /> <interpretationCode codeSystem="local" code="*" /> <referenceRange> <observationRange> <text /> </observationRange> </referenceRange> </ observation> </component> <component> <observation moodCode= "EVN" classCode="OBS"> <templateId root="11.30.840.1.829594.10.22.4.2 " /> <id nullFlavor="NA" /> <code codeSystem="local" code= "UBAC" displayName="Bacteria" /> <statusCode code="completed" /> <effectiveTime value="" /> <value unit="NA" xsi:type= "PQ" value="Moderate" /> <interpretationCode codeSystem="local" code="* " /> <referenceRange> <observationRange> <text /> </observationRange> </referenceRange> </ observation> </component> <component> <observation moodCode= "EVN" classCode="OBS"> <templateId root="11.30.840.1.387518.10.4.2 " /> <id nullFlavor="NA" /> <code codeSystem="local" code= "UEPI" displayName="Epithelial Cells" /> <statusCode code="completed" / > <effectiveTime value="" /> <value unit="/HPF" xsi:type="PQ" value="10" /> <referenceRange> < observationRange> <text /> </observationRange> </referenceRange> </observation> </component> <component> <observation moodCode="EVN" classCode="OBS"> <templateId root= "11.30.840.1.525766.10.2022.4.2" /> <id nullFlavor="NA" /> < code codeSystem="local" code="URBC" displayName="RBC, Urine" /> < statusCode code="completed" /> <effectiveTime value="803905880222" /> <value unit="/HPF" xsi:type="PQ" value="2" /> <referenceRange > <observationRange> <text>0-2</text> </ observationRange> </referenceRange> </observation> </ component> <component> <observation moodCode="EVN" classCode="OBS"> <templateId root="216.840.1.196340.10..4.2" /> <id nullFlavor="NA" /> <code codeSystem="local" code="UMUC" displayName= "Urine Mucus" /> <statusCode code="completed" /> < effectiveTime value="052847476465" /> <value unit="NA" xsi:type="PQ" value="Present" /> <referenceRange> <observationRange> <text /> </observationRange> </referenceRange> </observation> </component> <component> <observation moodCode="EVN" classCode="OBS"> <templateId root= "216.840.1.033382.08.03.22.4.2" /> <id nullFlavor="NA" /> < code codeSystem="local" code="UWBC" displayName="WBC, Urine" /> < statusCode code="completed" /> <effectiveTime value="176164986821" /> <value unit="/HPF" xsi:type="PQ" value="10" /> < interpretationCode codeSystem="local" code="*" /> <referenceRange> <observationRange> <text>0-4</text> </ observationRange> </referenceRange> </observation> </ component> </organizer> </entry> <entry> <organizer moodCode="EVN" classCode="BATTERY"> <templateId root="216.840.1.681744.10..4.1" /> <id nullFlavor="NA" /> <code codeSystem="local" code="PREGN" displayName=" Screen, Urine NPT" /> <statusCode code="completed" / > <component> <observation moodCode="EVN" classCode="OBS"> <templateId root="16.840.1.107337.10..4.2" /> <id nullFlavor="NA " /> <code codeSystem="local" code="PREGN" displayName=" Screen, Urine NPT" /> <statusCode code="completed" /> < effectiveTime value="558422751950" /> <value unit="NA" xsi:type="PQ" value="Negative" /> <referenceRange> <observationRange> <text /> </observationRange> </referenceRange> </observation> </component> </organizer> </entry> <entry> < organizer moodCode="EVN" classCode="BATTERY"> <templateId root= "16.840.1.675419.10...4.1" /> <id nullFlavor="NA" /> <code codeSystem="local" code="UPREG" displayName=" Screen, Urine" /> < statusCode code="completed" /> <component> <observation moodCode= "EVN" classCode="OBS"> <templateId root="16.840.1.463823.10..22.4.2 " /> <id nullFlavor="NA" /> <code codeSystem="local" code= "UPREG" displayName=" Screen, Urine" /> <statusCode code= "completed" /> <effectiveTime value="653322201728" /> <value unit="NA" xsi:type="PQ" value="Negative" /> <referenceRange> <observationRange> <text /> </observationRange> </referenceRange> </observation> </component> </organizer> < /entry> <entry> <organizer moodCode="EVN" classCode="BATTERY"> < templateId root="216.840.1.414701.08.03.22.4.1" /> <id nullFlavor="NA" /> <code codeSystem="local" code="UA" displayName="Urinalysis with reflex microscopic" /> <statusCode code="completed" /> <component> < observation moodCode="EVN" classCode="OBS"> <templateId root= "16.840.1.328355.08.03.22.4.2" /> <id nullFlavor="NA" /> < code codeSystem="local" code="UAPP" displayName="Appearance" /> < statusCode code="completed" /> <effectiveTime value="" /> <value unit="NA" xsi:type="PQ" value="Sl Cloudy" /> < referenceRange> <observationRange> <text /> < /observationRange> </referenceRange> </observation> </ component> <component> <observation moodCode="EVN" classCode="OBS"> <templateId root="11.30.840.1.614920.08.03.22.4.2" /> <id nullFlavor="NA" /> <code codeSystem="local" code="UBIL" displayName= "Bilirubin" /> <statusCode code="completed" /> <effectiveTime value="" /> <value unit="NA" xsi:type="PQ" value="Negative " /> <referenceRange> <observationRange> <text> Negative</text> </observationRange> </referenceRange> </observation> </component> <component> <observation moodCode ="EVN" classCode="OBS"> <templateId root= "11.30.840.1.764049.08.03.22.4.2" /> <id nullFlavor="NA" /> < code codeSystem="local" code="UBLD" displayName="Blood" /> <statusCode code="completed" /> <effectiveTime value="814755825628" /> < value unit="NA" xsi:type="PQ" value="Negative" /> <referenceRange> <observationRange> <text>Negative</text> </ observationRange> </referenceRange> </observation> </ component> <component> <observation moodCode="EVN" classCode="OBS"> <templateId root="216.840.1.116022.08.03.22.4.2" /> <id nullFlavor="NA" /> <code codeSystem="local" code="UCOLR" displayName= "Color" /> <statusCode code="completed" /> <effectiveTime value="745623099656" /> <value unit="NA" xsi:type="PQ" value="Aliza" / > <interpretationCode codeSystem="local" code="*" /> < referenceRange> <observationRange> <text /> < /observationRange> </referenceRange> </observation> </ component> <component> <observation moodCode="EVN" classCode="OBS"> <templateId root="11.30.840.1.831381.08.03.22.4.2" /> <id nullFlavor="NA" /> <code codeSystem="local" code="UGLU" displayName= "Glucose, Urine" /> <statusCode code="completed" /> < effectiveTime value="077199876604" /> <value unit="" xsi:type="PQ" value="Negative" /> <referenceRange> <observationRange> <text>Negative</text> </observationRange> </ referenceRange> </observation> </component> <component> <observation moodCode="EVN" classCode="OBS"> <templateId root= "16.840.1.411626.10.4.2" /> <id nullFlavor="NA" /> < code codeSystem="local" code="UKET" displayName="Ketones" /> < statusCode code="completed" /> <effectiveTime value="355906531964" /> <value unit="" xsi:type="PQ" value="Trace" /> < interpretationCode codeSystem="local" code="*" /> <referenceRange> <observationRange> <text>Negative</text> </ observationRange> </referenceRange> </observation> </ component> <component> <observation moodCode="EVN" classCode="OBS"> <templateId root="216.840.1.578970.10..22.4.2" /> <id nullFlavor="NA" /> <code codeSystem="local" code="ULEU" displayName= "Leukocyte Esterase" /> <statusCode code="completed" /> < effectiveTime value="027418070710" /> <value unit="NA" xsi:type="PQ" value="Pos 3+" /> <interpretationCode codeSystem="local" code="*" /> <referenceRange> <observationRange> <text> Negative</text> </observationRange> </referenceRange> </observation> </component> <component> <observation moodCode ="EVN" classCode="OBS"> <templateId root= "16.840.1.812822.10...4.2" /> <id nullFlavor="NA" /> < code codeSystem="local" code="UNIT" displayName="Nitrites" /> < statusCode code="completed" /> <effectiveTime value="393678513861" /> <value unit="NA" xsi:type="PQ" value="Positive" /> < interpretationCode codeSystem="local" code="*" /> <referenceRange> <observationRange> <text>Negative</text> </ observationRange> </referenceRange> </observation> </ component> <component> <observation moodCode="EVN" classCode="OBS"> <templateId root="16.840.1.976273.10..22.4.2" /> <id nullFlavor="NA" /> <code codeSystem="local" code="UPH" displayName="pH " /> <statusCode code="completed" /> <effectiveTime value= "047046145388" /> <value unit="NA" xsi:type="PQ" value="5.0" /> <referenceRange> <observationRange> <text>5.0-8.0</ text> </observationRange> </referenceRange> </ observation> </component> <component> <observation moodCode= "EVN" classCode="OBS"> <templateId root="11.30.840.1.477134.10...4.2 " /> <id nullFlavor="NA" /> <code codeSystem="local" code= "UPRO" displayName="Protein" /> <statusCode code="completed" /> <effectiveTime value="505836900307" /> <value unit="NA" xsi:type="PQ " value="Negative" /> <referenceRange> <observationRange> <text>Negative</text> </observationRange> </ referenceRange> </observation> </component> <component> <observation moodCode="EVN" classCode="OBS"> <templateId root= "11.30.840.1.800510.10..22.4.2" /> <id nullFlavor="NA" /> < code codeSystem="local" code="USPG" displayName="Specific [place]" /> < statusCode code="completed" /> <effectiveTime value="935344287498" /> <value unit="NA" xsi:type="PQ" value="1.010" /> < referenceRange> <observationRange> <text>1.003-1.030</ text> </observationRange> </referenceRange> </ observation> </component> <component> <observation moodCode= "EVN" classCode="OBS"> <templateId root="216.840.1.204228.10.4.2 " /> <id nullFlavor="NA" /> <code codeSystem="local" code= "UTYP" displayName="UA Collection type" /> <statusCode code="completed " /> <effectiveTime value="807428543573" /> <value unit="NA" xsi:type="PQ" value="Clean Catch" /> <referenceRange> < observationRange> <text /> </observationRange> </referenceRange> </observation> </component> <component> <observation moodCode="EVN" classCode="OBS"> <templateId root= "216.840.1.512533.08.03.22.4.2" /> <id nullFlavor="NA" /> < code codeSystem="local" code="UURO" displayName="Urobilinogen" /> < statusCode code="completed" /> <effectiveTime value="044295949557" /> <value unit="mg/dL" xsi:type="PQ" value="2.0" /> < interpretationCode codeSystem="local" code="*" /> <referenceRange> <observationRange> <text><1.0</text> </ observationRange> </referenceRange> </observation> </ component> </organizer> </entry> <entry> <organizer moodCode="EVN" classCode="BATTERY"> <templateId root="216.840.1.623195.08.03.22.4.1" /> <id nullFlavor="NA" /> <code codeSystem="local" code="UMIC" displayName="Urine Microscopic" /> <statusCode code="completed" /> < component> <observation moodCode="EVN" classCode="OBS"> < templateId root="16.840.1.481896.1022.4.2" /> <id nullFlavor="NA " /> <code codeSystem="local" code="UBAC" displayName="Bacteria" /> <statusCode code="completed" /> <effectiveTime value= "" /> <value unit="NA" xsi:type="PQ" value="Occasional" /> <interpretationCode codeSystem="local" code="*" /> < referenceRange> <observationRange> <text /> < /observationRange> </referenceRange> </observation> </ component> <component> <observation moodCode="EVN" classCode="OBS"> <templateId root="16.840.1.717555.10.4.2" /> <id nullFlavor="NA" /> <code codeSystem="local" code="UEPI" displayName= "Epithelial Cells" /> <statusCode code="completed" /> < effectiveTime value="" /> <value unit="/HPF" xsi:type="PQ" value="2" /> <referenceRange> <observationRange> <text /> </observationRange> </referenceRange> </ observation> </component> <component> <observation moodCode= "EVN" classCode="OBS"> <templateId root="16.840.1.299404.10.22.4.2 " /> <id nullFlavor="NA" /> <code codeSystem="local" code= "URBC" displayName="RBC, Urine" /> <statusCode code="completed" /> <effectiveTime value="" /> <value unit="/HPF" xsi: type="PQ" value="0" /> <referenceRange> <observationRange> <text>0-2</text> </observationRange> </ referenceRange> </observation> </component> <component> <observation moodCode="EVN" classCode="OBS"> <templateId root= "216.840.1.372919.10.4.2" /> <id nullFlavor="NA" /> < code codeSystem="local" code="UMUC" displayName="Urine Mucus" /> < statusCode code="completed" /> <effectiveTime value="357803443492" /> <value unit="NA" xsi:type="PQ" value="Present" /> < referenceRange> <observationRange> <text /> < /observationRange> </referenceRange> </observation> </ component> <component> <observation moodCode="EVN" classCode="OBS"> <templateId root="216.840.1.798283.08.03.22.4.2" /> <id nullFlavor="NA" /> <code codeSystem="local" code="UWBC" displayName= "WBC, Urine" /> <statusCode code="completed" /> < effectiveTime value="747115580878" /> <value unit="/HPF" xsi:type="PQ" value="10" /> <interpretationCode codeSystem="local" code="*" /> <referenceRange> <observationRange> <text>0-4</text > </observationRange> </referenceRange> </observation > </component> </organizer> </entry> <entry> <organizer moodCode= "EVN" classCode="BATTERY"> <templateId root="2.16.840.1.321573.08.03.22.4.1 " /> <id nullFlavor="NA" /> <code codeSystem="local" code="UDRGH" displayName="Urine Drug Screen" /> <statusCode code="completed" /> < component> <observation moodCode="EVN" classCode="OBS"> < templateId root="216.840.1.404866.10..22.4.2" /> <id nullFlavor="NA " /> <code codeSystem="local" code="UAMP1" displayName="Amph/Meth/ Ecstasy" /> <statusCode code="completed" /> <effectiveTime value="823887087877" /> <value unit="NA" xsi:type="PQ" value="Positive " /> <interpretationCode codeSystem="local" code="*" /> < referenceRange> <observationRange> <text /> < /observationRange> </referenceRange> </observation> </ component> <component> <observation moodCode="EVN" classCode="OBS"> <templateId root="216.840.1.807404.08.03.22.4.2" /> <id nullFlavor="NA" /> <code codeSystem="local" code="UBAR1" displayName= "Barbiturates" /> <statusCode code="completed" /> < effectiveTime value="351284854751" /> <value unit="NA" xsi:type="PQ" value="Negative" /> <referenceRange> <observationRange> <text /> </observationRange> </referenceRange> </observation> </component> <component> <observation moodCode="EVN" classCode="OBS"> <templateId root= "216.840.1.390062.10...4.2" /> <id nullFlavor="NA" /> < code codeSystem="local" code="UBEN1" displayName="Benzodiazepine" /> < statusCode code="completed" /> <effectiveTime value="394792941054" /> <value unit="NA" xsi:type="PQ" value="Negative" /> < referenceRange> <observationRange> <text /> < /observationRange> </referenceRange> </observation> </ component> <component> <observation moodCode="EVN" classCode="OBS"> <templateId root="16.840.1.352101.10.4.2" /> <id nullFlavor="NA" /> <code codeSystem="local" code="UCAN1" displayName= "Cannabinoid" /> <statusCode code="completed" /> < effectiveTime value="716107253114" /> <value unit="NA" xsi:type="PQ" value="Positive" /> <interpretationCode codeSystem="local" code="*" /> <referenceRange> <observationRange> <text /> </observationRange> </referenceRange> </observation> </component> <component> <observation moodCode="EVN" classCode ="OBS"> <templateId root="11.30.840.1.320885.08.03.22.4.2" /> < id nullFlavor="NA" /> <code codeSystem="local" code="UCOC1" displayName ="Cocaine" /> <statusCode code="completed" /> <effectiveTime value="747813576005" /> <value unit="NA" xsi:type="PQ" value="Negative " /> <referenceRange> <observationRange> <text /> </observationRange> </referenceRange> </ observation> </component> <component> <observation moodCode= "EVN" classCode="OBS"> <templateId root="11.30.840.1.687149.08.03.22.4.2 " /> <id nullFlavor="NA" /> <code codeSystem="local" code= "UMTD1" displayName="EDDP (Methadone met.)" /> <statusCode code= "completed" /> <effectiveTime value="120430355368" /> <value unit="NA" xsi:type="PQ" value="Negative" /> <referenceRange> <observationRange> <text /> </observationRange> </referenceRange> </observation> </component> <component> <observation moodCode="EVN" classCode="OBS"> <templateId root= "16.840.1.366393.10..22.4.2" /> <id nullFlavor="NA" /> < code codeSystem="local" code="UOPI1" displayName="Opiate" /> < statusCode code="completed" /> <effectiveTime value="112610172610" /> <value unit="NA" xsi:type="PQ" value="Negative" /> < referenceRange> <observationRange> <text /> < /observationRange> </referenceRange> </observation> </ component> <component> <observation moodCode="EVN" classCode="OBS"> <templateId root="11.30.840.1.858475.10...4.2" /> <id nullFlavor="NA" /> <code codeSystem="local" code="UPCP1" displayName= "Phencyclidine (PCP)" /> <statusCode code="completed" /> < effectiveTime value="672802169966" /> <value unit="NA" xsi:type="PQ" value="Negative" /> <referenceRange> <observationRange> <text /> </observationRange> </referenceRange> </observation> </component> </organizer> </entry> <entry> < organizer moodCode="EVN" classCode="BATTERY"> <templateId root= "11.30.840.1.403143.10..22.4.1" /> <id nullFlavor="NA" /> <code codeSystem="local" code="UA" displayName="URINALYSIS, ROUTINE" /> < statusCode code="completed" /> <component> <observation moodCode= "EVN" classCode="OBS"> <templateId root="216.840.1.639690.10..4.2 " /> <id nullFlavor="NA" /> <code codeSystem="local" code= "LEUESU" displayName="UA LEUKOCYTE ESTERASE DIPSTICK" /> <statusCode code="completed" /> <effectiveTime value="" /> < value unit="" xsi:type="PQ" value="NEGATIVE" /> <referenceRange> <observationRange> <text>NEGATIVE</text> </ observationRange> </referenceRange> </observation> </ component> <component> <observation moodCode="EVN" classCode="OBS"> <templateId root="216.840.1.949852.08.03.22.4.2" /> <id nullFlavor="NA" /> <code codeSystem="local" code="NITRIU" displayName= "UA NITRITE DIPSTICK" /> <statusCode code="completed" /> < effectiveTime value="" /> <value unit="" xsi:type="PQ" value="NEGATIVE" /> <referenceRange> <observationRange> <text>NEGATIVE</text> </observationRange> </ referenceRange> </observation> </component> <component> <observation moodCode="EVN" classCode="OBS"> <templateId root= "16.840.1.582491.10..4.2" /> <id nullFlavor="NA" /> < code codeSystem="local" code="PROTEIU" displayName="UA PROTEIN DIPSTICK" /> <statusCode code="completed" /> <effectiveTime value= "221679212055" /> <value unit="" xsi:type="PQ" value="NEGATIVE" /> <referenceRange> <observationRange> <text>NEGATIVE </text> </observationRange> </referenceRange> </ observation> </component> <component> <observation moodCode= "EVN" classCode="OBS"> <templateId root="16.840.1.943943.10.4.2 " /> <id nullFlavor="NA" /> <code codeSystem="local" code= "DGLUU" displayName="UA GLUCOSE DIPSTICK" /> <statusCode code= "completed" /> <effectiveTime value="" /> <value unit="" xsi:type="PQ" value="NEGATIVE" /> <referenceRange> < observationRange> <text>NEGATIVE</text> </ observationRange> </referenceRange> </observation> </ component> <component> <observation moodCode="EVN" classCode="OBS"> <templateId root="11.30.840.1.487536.08.03.22.4.2" /> <id nullFlavor="NA" /> <code codeSystem="local" code="KETONU" displayName= "UA KETONE DIPSTICK" /> <statusCode code="completed" /> < effectiveTime value="" /> <value unit="" xsi:type="PQ" value="NEGATIVE" /> <referenceRange> <observationRange> <text>NEGATIVE</text> </observationRange> </ referenceRange> </observation> </component> <component> <observation moodCode="EVN" classCode="OBS"> <templateId root= "11.30.840.1.330240.08.03.22.4.2" /> <id nullFlavor="NA" /> < code codeSystem="local" code="UROBILU" displayName="UA UROBILINOGEN DIPSTICK" / > <statusCode code="completed" /> <effectiveTime value= "" /> <value unit="" xsi:type="PQ" value="NORMAL" /> <referenceRange> <observationRange> <text>NORMAL</ text> </observationRange> </referenceRange> </ observation> </component> <component> <observation moodCode= "EVN" classCode="OBS"> <templateId root="16.840.1.728937.10..4.2 " /> <id nullFlavor="NA" /> <code codeSystem="local" code= "BILU" displayName="UA BILIRUBIN DIPSTICK" /> <statusCode code= "completed" /> <effectiveTime value="326543852497" /> <value unit="" xsi:type="PQ" value="NEGATIVE" /> <referenceRange> < observationRange> <text>NEGATIVE</text> </ observationRange> </referenceRange> </observation> </ component> <component> <observation moodCode="EVN" classCode="OBS"> <templateId root="11.30.840.1.467709.08.03.22.4.2" /> <id nullFlavor="NA" /> <code codeSystem="local" code="ABDELRAHMAN" displayName="UA BLOOD DIPSTICK" /> <statusCode code="completed" /> < effectiveTime value="758997357552" /> <value unit="" xsi:type="PQ" value="NEGATIVE" /> <referenceRange> <observationRange> <text>NEGATIVE</text> </observationRange> </ referenceRange> </observation> </component> <component> <observation moodCode="EVN" classCode="OBS"> <templateId root= "11.30.840.1.128280.08.03.22.4.2" /> <id nullFlavor="NA" /> < code codeSystem="local" code="SPGRU" displayName="UA SPECIFIC GRAVITY" /> <statusCode code="completed" /> <effectiveTime value="354135173292 " /> <value unit="" xsi:type="PQ" value=">=1.030" /> < interpretationCode codeSystem="local" code="*" /> <referenceRange> <observationRange> <text>1.015-1.025</text> </ observationRange> </referenceRange> </observation> </ component> <component> <observation moodCode="EVN" classCode="OBS"> <templateId root="16.840.1.294713.10.4.2" /> <id nullFlavor="NA" /> <code codeSystem="local" code="COLTON" displayName="UR PH" /> <statusCode code="completed" /> <effectiveTime value= "056815818260" /> <value unit="" xsi:type="PQ" value="5.5" /> <referenceRange> <observationRange> <text>5.0-7.0</text > </observationRange> </referenceRange> </observation > </component> </organizer> </entry> <entry> <organizer moodCode= "EVN" classCode="BATTERY"> <templateId root="11.30.840.1.962630.08.03.22.4.1 " /> <id nullFlavor="NA" /> <code codeSystem="local" code="PREGU" displayName="UR TEST" /> <statusCode code="completed" /> < component> <observation moodCode="EVN" classCode="OBS"> < templateId root="11.30.840.1.541393.1022.4.2" /> <id nullFlavor="NA " /> <code codeSystem="local" code="PREGU" displayName="UR TEST" /> <statusCode code="completed" /> <effectiveTime value= "017499572283" /> <value unit="" xsi:type="PQ" value="NEGATIVE" /> <referenceRange> <observationRange> <text>NEGATIVE </text> </observationRange> </referenceRange> </ observation> </component> </organizer> </entry> <entry> <organizer moodCode="EVN" classCode="BATTERY"> <templateId root= "16.840.1.071676.08.03.22.4.1" /> <id nullFlavor="NA" /> <code codeSystem="local" code="UPREG" displayName=" Screen, Urine" /> < statusCode code="completed" /> <component> <observation moodCode= "EVN" classCode="OBS"> <templateId root="16.840.1.786880...4.2 " /> <id nullFlavor="NA" /> <code codeSystem="local" code= "UPREG" displayName=" Screen, Urine" /> <statusCode code= "completed" /> <effectiveTime value="761006781937" /> <value unit="NA" xsi:type="PQ" value="Negative" /> <referenceRange> <observationRange> <text /> </observationRange> </referenceRange> </observation> </component> </organizer> < /entry> <entry> <organizer moodCode="EVN" classCode="BATTERY"> < templateId root="16.840.1.439885.08.03.22.4.1" /> <id nullFlavor="NA" /> <code codeSystem="local" code="CBCWD" displayName="CBC With Platelet and Differential" /> <statusCode code="completed" /> <component> < observation moodCode="EVN" classCode="OBS"> <templateId root= "11.30.840.1.709918.08.03.22.4.2" /> <id nullFlavor="NA" /> < code codeSystem="local" code="ABASR" displayName="Absolute Basophils" /> <statusCode code="completed" /> <effectiveTime value="" /> <value unit="10*3/uL" xsi:type="PQ" value="0.03" /> < referenceRange> <observationRange> <text>0.00-0.20</text > </observationRange> </referenceRange> </observation > </component> <component> <observation moodCode="EVN" classCode="OBS"> <templateId root="216.840.1.342064.08.03.22.4.2" /> <id nullFlavor="NA" /> <code codeSystem="local" code="AEOSR" displayName="Absolute Eosinophils" /> <statusCode code="completed" /> <effectiveTime value="" /> <value unit="10*3/uL" xsi:type="PQ" value="0.49" /> <referenceRange> < observationRange> <text>0.00-0.50</text> </ observationRange> </referenceRange> </observation> </ component> <component> <observation moodCode="EVN" classCode="OBS"> <templateId root="216.840.1.892331.08.03.22.4.2" /> <id nullFlavor="NA" /> <code codeSystem="local" code="ALYMR" displayName= "Absolute Lymphocytes" /> <statusCode code="completed" /> < effectiveTime value="" /> <value unit="10*3/uL" xsi:type= "PQ" value="2.01" /> <referenceRange> <observationRange> <text>0.80-3.30</text> </observationRange> </ referenceRange> </observation> </component> <component> <observation moodCode="EVN" classCode="OBS"> <templateId root= "216.840.1.253274.10.4.2" /> <id nullFlavor="NA" /> < code codeSystem="local" code="AMONR" displayName="Absolute Monocytes" /> <statusCode code="completed" /> <effectiveTime value="" /> <value unit="10*3/uL" xsi:type="PQ" value="0.72" /> < referenceRange> <observationRange> <text>0.30-1.00</text > </observationRange> </referenceRange> </observation > </component> <component> <observation moodCode="EVN" classCode="OBS"> <templateId root="11.30.840.1.746494.08.03.22.4.2" /> <id nullFlavor="NA" /> <code codeSystem="local" code="ASEGR" displayName="Absolute Neutrophils" /> <statusCode code="completed" /> <effectiveTime value="" /> <value unit="10*3/uL" xsi:type="PQ" value="5.63" /> <referenceRange> < observationRange> <text>1.90-7.00</text> </ observationRange> </referenceRange> </observation> </ component> <component> <observation moodCode="EVN" classCode="OBS"> <templateId root="11.30.840.1.152137.08.03.22.4.2" /> <id nullFlavor="NA" /> <code codeSystem="local" code="BASOR" displayName= "Basophils" /> <statusCode code="completed" /> <effectiveTime value="" /> <value unit="%" xsi:type="PQ" value="0" /> <referenceRange> <observationRange> <text>0-2< /text> </observationRange> </referenceRange> </ observation> </component> <component> <observation moodCode= "EVN" classCode="OBS"> <templateId root="216.840.1.358639.10..22.4.2 " /> <id nullFlavor="NA" /> <code codeSystem="local" code= "EOSR" displayName="Eosinophils" /> <statusCode code="completed" /> <effectiveTime value="069095743870" /> <value unit="%" xsi: type="PQ" value="6" /> <interpretationCode codeSystem="local" code="*" /> <referenceRange> <observationRange> <text>0- 4</text> </observationRange> </referenceRange> </ observation> </component> <component> <observation moodCode= "EVN" classCode="OBS"> <templateId root="16.840.1.607806.08.03.22.4.2 " /> <id nullFlavor="NA" /> <code codeSystem="local" code="HCT " displayName="HCT" /> <statusCode code="completed" /> < effectiveTime value="135265672364" /> <value unit="%" xsi:type="PQ " value="36.1" /> <interpretationCode codeSystem="local" code="*" /> <referenceRange> <observationRange> <text>37.0- 47.0</text> </observationRange> </referenceRange> </ observation> </component> <component> <observation moodCode= "EVN" classCode="OBS"> <templateId root="16.840.1.062647.22.4.2 " /> <id nullFlavor="NA" /> <code codeSystem="local" code="HGB " displayName="HGB" /> <statusCode code="completed" /> < effectiveTime value="395011221757" /> <value unit="g/dL" xsi:type="PQ" value="12.3" /> <referenceRange> <observationRange> <text>12.0-16.0</text> </observationRange> </ referenceRange> </observation> </component> <component> <observation moodCode="EVN" classCode="OBS"> <templateId root= "2.16.840.1.132760.08.03.22.4.2" /> <id nullFlavor="NA" /> < code codeSystem="local" code="IMGA" displayName="Immature Granulocytes" /> <statusCode code="completed" /> <effectiveTime value=" " /> <value unit="%" xsi:type="PQ" value="0.2" /> < referenceRange> <observationRange> <text>0.0-1.0</text> </observationRange> </referenceRange> </observation > </component> <component> <observation moodCode="EVN" classCode="OBS"> <templateId root="2.16.840.1.530668.08.03.22.4.2" /> <id nullFlavor="NA" /> <code codeSystem="local" code="LYMPR" displayName="Lymphocytes" /> <statusCode code="completed" /> < effectiveTime value="" /> <value unit="%" xsi:type="PQ " value="23" /> <referenceRange> <observationRange> <text>20-46</text> </observationRange> </ referenceRange> </observation> </component> <component> <observation moodCode="EVN" classCode="OBS"> <templateId root= "16.840.1.873086.10.20.22.4.2" /> <id nullFlavor="NA" /> < code codeSystem="local" code="MCH" displayName="MCH" /> <statusCode code="completed" /> <effectiveTime value="" /> < value unit="pg" xsi:type="PQ" value="31.3" /> <referenceRange> <observationRange> <text>27.0-32.0</text> </ observationRange> </referenceRange> </observation> </ component> <component> <observation moodCode="EVN" classCode="OBS"> <templateId root="11.30.840.1.653156.10..22.4.2" /> <id nullFlavor="NA" /> <code codeSystem="local" code="MCHC" displayName= "MCHC" /> <statusCode code="completed" /> <effectiveTime value ="" /> <value unit="g/dL" xsi:type="PQ" value="34.1" /> <referenceRange> <observationRange> <text>32.0- 36.0</text> </observationRange> </referenceRange> </ observation> </component> <component> <observation moodCode= "EVN" classCode="OBS"> <templateId root="11.30.840.1.825808.10.20.22.4.2 " /> <id nullFlavor="NA" /> <code codeSystem="local" code="MCV " displayName="MCV" /> <statusCode code="completed" /> < effectiveTime value="" /> <value unit="fL" xsi:type="PQ" value="91.9" /> <referenceRange> <observationRange> <text>82.0-99.0</text> </observationRange> </ referenceRange> </observation> </component> <component> <observation moodCode="EVN" classCode="OBS"> <templateId root= "216.840.1.081214.10.4.2" /> <id nullFlavor="NA" /> < code codeSystem="local" code="MONOR" displayName="Monocytes" /> < statusCode code="completed" /> <effectiveTime value="" /> <value unit="%" xsi:type="PQ" value="8" /> <referenceRange > <observationRange> <text>4-11</text> </ observationRange> </referenceRange> </observation> </ component> <component> <observation moodCode="EVN" classCode="OBS"> <templateId root="11.30.840.1.860878.08.03.22.4.2" /> <id nullFlavor="NA" /> <code codeSystem="local" code="MPV" displayName="MPV " /> <statusCode code="completed" /> <effectiveTime value= "" /> <value unit="fL" xsi:type="PQ" value="10.1" /> <referenceRange> <observationRange> <text>9.4-12.4</ text> </observationRange> </referenceRange> </ observation> </component> <component> <observation moodCode= "EVN" classCode="OBS"> <templateId root="11.30.840.1.555163.08.03.22.4.2 " /> <id nullFlavor="NA" /> <code codeSystem="local" code= "SEGR" displayName="Neutrophils" /> <statusCode code="completed" /> <effectiveTime value="" /> <value unit="%" xsi: type="PQ" value="63" /> <referenceRange> <observationRange> <text>51-75</text> </observationRange> </ referenceRange> </observation> </component> <component> <observation moodCode="EVN" classCode="OBS"> <templateId root= "16.840.1.969042.10..4.2" /> <id nullFlavor="NA" /> < code codeSystem="local" code="NRBCA" displayName="Nucleated RBC Automated" /> <statusCode code="completed" /> <effectiveTime value= "" /> <value unit="/100WBC" xsi:type="PQ" value="0.0" /> <referenceRange> <observationRange> <text /> </observationRange> </referenceRange> </observation> </component> <component> <observation moodCode="EVN" classCode= "OBS"> <templateId root="840.1.285998...4.2" /> < id nullFlavor="NA" /> <code codeSystem="local" code="PLT" displayName= "Platelet Count" /> <statusCode code="completed" /> < effectiveTime value="197256963284" /> <value unit="K/uL" xsi:type="PQ" value="240" /> <referenceRange> <observationRange> <text>150-400</text> </observationRange> </ referenceRange> </observation> </component> <component> <observation moodCode="EVN" classCode="OBS"> <templateId root= "840.1.847972.10.2022.4.2" /> <id nullFlavor="NA" /> < code codeSystem="local" code="RBC" displayName="RBC" /> <statusCode code="completed" /> <effectiveTime value="341258312062" /> < value unit="10*6/uL" xsi:type="PQ" value="3.93" /> <interpretationCode codeSystem="local" code="*" /> <referenceRange> < observationRange> <text>4.00-5.20</text> </ observationRange> </referenceRange> </observation> </ component> <component> <observation moodCode="EVN" classCode="OBS"> <templateId root="2.16.840.1.563706.10.20.22.4.2" /> <id nullFlavor="NA" /> <code codeSystem="local" code="RDW" displayName="RDW " /> <statusCode code="completed" /> <effectiveTime value= "" /> <value unit="%" xsi:type="PQ" value="12.9" /> <referenceRange> <observationRange> <text>11.5- 14.5</text> </observationRange> </referenceRange> </ observation> </component> <component> <observation moodCode= "EVN" classCode="OBS"> <templateId root="2.16.840.1.224731.10.20.22.4.2 " /> <id nullFlavor="NA" /> <code codeSystem="local" code= "WBCIR" displayName="WBC" /> <statusCode code="completed" /> < effectiveTime value="212599957814" /> <value unit="K/uL" xsi:type="PQ" value="8.9" /> <referenceRange> <observationRange> <text>4.8-10.8</text> </observationRange> </ referenceRange> </observation> </component> </organizer> </entry > <entry> <organizer moodCode="EVN" classCode="BATTERY"> <templateId root="11.30.840.1.308541.08.03.22.4.1" /> <id nullFlavor="NA" /> <code codeSystem="local" code="UA" displayName="Urinalysis with reflex microscopic" / > <statusCode code="completed" /> <component> <observation moodCode="EVN" classCode="OBS"> <templateId root= "840.1.736121.08.03.22.4.2" /> <id nullFlavor="NA" /> < code codeSystem="local" code="UAPP" displayName="Appearance" /> < statusCode code="completed" /> <effectiveTime value="567837100325" /> <value unit="NA" xsi:type="PQ" value="Sl Cloudy" /> < referenceRange> <observationRange> <text /> < /observationRange> </referenceRange> </observation> </ component> <component> <observation moodCode="EVN" classCode="OBS"> <templateId root="840.1.378711.08.03.22.4.2" /> <id nullFlavor="NA" /> <code codeSystem="local" code="UBIL" displayName= "Bilirubin" /> <statusCode code="completed" /> <effectiveTime value="826509817100" /> <value unit="NA" xsi:type="PQ" value="Positive " /> <interpretationCode codeSystem="local" code="*" /> < referenceRange> <observationRange> <text>Negative</text > </observationRange> </referenceRange> </observation > </component> <component> <observation moodCode="EVN" classCode="OBS"> <templateId root="11.30.840.1.359734.08.03.22.4.2" /> <id nullFlavor="NA" /> <code codeSystem="local" code="UBLD" displayName="Blood" /> <statusCode code="completed" /> < effectiveTime value="204589133902" /> <value unit="NA" xsi:type="PQ" value="Negative" /> <referenceRange> <observationRange> <text>Negative</text> </observationRange> </ referenceRange> </observation> </component> <component> <observation moodCode="EVN" classCode="OBS"> <templateId root= "11.30.840.1.235800.10..22.4.2" /> <id nullFlavor="NA" /> < code codeSystem="local" code="UCOLR" displayName="Color" /> < statusCode code="completed" /> <effectiveTime value="485301725771" /> <value unit="NA" xsi:type="PQ" value="Aliza" /> < interpretationCode codeSystem="local" code="*" /> <referenceRange> <observationRange> <text /> </observationRange> </referenceRange> </observation> </component> < component> <observation moodCode="EVN" classCode="OBS"> < templateId root="11.30.840.1.234104.10..22.4.2" /> <id nullFlavor="NA " /> <code codeSystem="local" code="UGLU" displayName="Glucose, Urine" /> <statusCode code="completed" /> <effectiveTime value= "113921125509" /> <value unit="" xsi:type="PQ" value="Negative" /> <referenceRange> <observationRange> <text>Negative </text> </observationRange> </referenceRange> </ observation> </component> <component> <observation moodCode= "EVN" classCode="OBS"> <templateId root=".1.849851.10..4.2 " /> <id nullFlavor="NA" /> <code codeSystem="local" code= "UKET" displayName="Ketones" /> <statusCode code="completed" /> <effectiveTime value="683640763395" /> <value unit="" xsi:type="PQ" value="Trace" /> <interpretationCode codeSystem="local" code="*" /> <referenceRange> <observationRange> <text> Negative</text> </observationRange> </referenceRange> </observation> </component> <component> <observation moodCode ="EVN" classCode="OBS"> <templateId root= "216.840.1.051091.08.03.22.4.2" /> <id nullFlavor="NA" /> < code codeSystem="local" code="ULEU" displayName="Leukocyte Esterase" /> <statusCode code="completed" /> <effectiveTime value="674470000663" / > <value unit="NA" xsi:type="PQ" value="Negative" /> < referenceRange> <observationRange> <text>Negative</text > </observationRange> </referenceRange> </observation > </component> <component> <observation moodCode="EVN" classCode="OBS"> <templateId root="16.840.1.046815.08.03.22.4.2" /> <id nullFlavor="NA" /> <code codeSystem="local" code="UNIT" displayName="Nitrites" /> <statusCode code="completed" /> < effectiveTime value="724824672618" /> <value unit="NA" xsi:type="PQ" value="Negative" /> <referenceRange> <observationRange> <text>Negative</text> </observationRange> </ referenceRange> </observation> </component> <component> <observation moodCode="EVN" classCode="OBS"> <templateId root= "11.30.840.1.820053.10.22.4.2" /> <id nullFlavor="NA" /> < code codeSystem="local" code="UPH" displayName="pH" /> <statusCode code ="completed" /> <effectiveTime value="016799937423" /> <value unit="NA" xsi:type="PQ" value="5.0" /> <referenceRange> < observationRange> <text>5.0-8.0</text> </ observationRange> </referenceRange> </observation> </ component> <component> <observation moodCode="EVN" classCode="OBS"> <templateId root="11.30.840.1.573523.08.03.22.4.2" /> <id nullFlavor="NA" /> <code codeSystem="local" code="UPRO" displayName= "Protein" /> <statusCode code="completed" /> <effectiveTime value="835747362274" /> <value unit="NA" xsi:type="PQ" value="Pos 2+" / > <interpretationCode codeSystem="local" code="*" /> < referenceRange> <observationRange> <text>Negative</text > </observationRange> </referenceRange> </observation > </component> <component> <observation moodCode="EVN" classCode="OBS"> <templateId root="11.30.840.1.149964.10.22.4.2" /> <id nullFlavor="NA" /> <code codeSystem="local" code="USPG" displayName="Specific [place]" /> <statusCode code="completed" /> <effectiveTime value="453916779884" /> <value unit="NA" xsi:type= "PQ" value="1.045" /> <interpretationCode codeSystem="local" code="*" / > <referenceRange> <observationRange> <text> 1.003-1.030</text> </observationRange> </referenceRange> </observation> </component> <component> <observation moodCode="EVN" classCode="OBS"> <templateId root= "16.840.1.817984.10..4.2" /> <id nullFlavor="NA" /> < code codeSystem="local" code="UTYP" displayName="UA Collection type" /> <statusCode code="completed" /> <effectiveTime value="783669066375" / > <value unit="NA" xsi:type="PQ" value="Catheter" /> < referenceRange> <observationRange> <text /> < /observationRange> </referenceRange> </observation> </ component> <component> <observation moodCode="EVN" classCode="OBS"> <templateId root="11.30.840.1.140286.10.4.2" /> <id nullFlavor="NA" /> <code codeSystem="local" code="UURO" displayName= "Urobilinogen" /> <statusCode code="completed" /> < effectiveTime value="336964459053" /> <value unit="mg/dL" xsi:type="PQ " value="Negative" /> <referenceRange> <observationRange> <text><1.0</text> </observationRange> </ referenceRange> </observation> </component> </organizer> </entry > <entry> <organizer moodCode="EVN" classCode="BATTERY"> <templateId root="16.840.1.447117.10.22.4.1" /> <id nullFlavor="NA" /> <code codeSystem="local" code="UMIC" displayName="Urine Microscopic" /> < statusCode code="completed" /> <component> <observation moodCode= "EVN" classCode="OBS"> <templateId root="216.840.1.953235.08.03.22.4.2 " /> <id nullFlavor="NA" /> <code codeSystem="local" code= "UEPI" displayName="Epithelial Cells" /> <statusCode code="completed" / > <effectiveTime value="" /> <value unit="/HPF" xsi:type="PQ" value="2" /> <referenceRange> < observationRange> <text /> </observationRange> </referenceRange> </observation> </component> <component> <observation moodCode="EVN" classCode="OBS"> <templateId root= "11.30.840.1.406008.08.03.22.4.2" /> <id nullFlavor="NA" /> < code codeSystem="local" code="UHCST" displayName="Hyaline Casts" /> < statusCode code="completed" /> <effectiveTime value="" /> <value unit="/LPF" xsi:type="PQ" value="7" /> < interpretationCode codeSystem="local" code="*" /> <referenceRange> <observationRange> <text>0-3</text> </ observationRange> </referenceRange> </observation> </ component> <component> <observation moodCode="EVN" classCode="OBS"> <templateId root="11.30.840.1.153872.08.03.22.4.2" /> <id nullFlavor="NA" /> <code codeSystem="local" code="URBC" displayName= "RBC, Urine" /> <statusCode code="completed" /> < effectiveTime value="" /> <value unit="/HPF" xsi:type="PQ" value="0" /> <referenceRange> <observationRange> <text>0-2</text> </observationRange> </referenceRange> </observation> </component> <component> <observation moodCode="EVN" classCode="OBS"> <templateId root= "216.840.1.779951.10..22.4.2" /> <id nullFlavor="NA" /> < code codeSystem="local" code="UMUC" displayName="Urine Mucus" /> < statusCode code="completed" /> <effectiveTime value="455451930351" /> <value unit="NA" xsi:type="PQ" value="Present" /> < referenceRange> <observationRange> <text /> < /observationRange> </referenceRange> </observation> </ component> <component> <observation moodCode="EVN" classCode="OBS"> <templateId root="16.840.1.288607.10.22.4.2" /> <id nullFlavor="NA" /> <code codeSystem="local" code="UWBC" displayName= "WBC, Urine" /> <statusCode code="completed" /> < effectiveTime value="031106954156" /> <value unit="/HPF" xsi:type="PQ" value="2" /> <referenceRange> <observationRange> <text>0-4</text> </observationRange> </referenceRange> </observation> </component> </organizer> </entry> <entry> < organizer moodCode="EVN" classCode="BATTERY"> <templateId root= "16.840.1.971157.10.20.22.4.1" /> <id nullFlavor="NA" /> <code codeSystem="local" code="UDRGH" displayName="Urine Drug Screen" /> < statusCode code="completed" /> <component> <observation moodCode= "EVN" classCode="OBS"> <templateId root="216.840.1.852465.10.4.2 " /> <id nullFlavor="NA" /> <code codeSystem="local" code= "UAMP1" displayName="Amph/Meth/Ecstasy" /> <statusCode code="completed " /> <effectiveTime value="" /> <value unit="NA" xsi:type="PQ" value="Positive" /> <interpretationCode codeSystem="local " code="*" /> <referenceRange> <observationRange> <text /> </observationRange> </referenceRange> </ observation> </component> <component> <observation moodCode= "EVN" classCode="OBS"> <templateId root="16.840.1.373561.08.03.224.2 " /> <id nullFlavor="NA" /> <code codeSystem="local" code= "UBAR1" displayName="Barbiturates" /> <statusCode code="completed" /> <effectiveTime value="" /> <value unit="NA" xsi: type="PQ" value="Negative" /> <referenceRange> < observationRange> <text /> </observationRange> </referenceRange> </observation> </component> <component> <observation moodCode="EVN" classCode="OBS"> <templateId root= "216.840.1.024587.08.03.22.4.2" /> <id nullFlavor="NA" /> < code codeSystem="local" code="UBEN1" displayName="Benzodiazepine" /> < statusCode code="completed" /> <effectiveTime value="" /> <value unit="NA" xsi:type="PQ" value="Negative" /> < referenceRange> <observationRange> <text /> < /observationRange> </referenceRange> </observation> </ component> <component> <observation moodCode="EVN" classCode="OBS"> <templateId root="16.840.1.022040.10..4.2" /> <id nullFlavor="NA" /> <code codeSystem="local" code="UCAN1" displayName= "Cannabinoid" /> <statusCode code="completed" /> < effectiveTime value="" /> <value unit="NA" xsi:type="PQ" value="Negative" /> <referenceRange> <observationRange> <text /> </observationRange> </referenceRange> </observation> </component> <component> <observation moodCode="EVN" classCode="OBS"> <templateId root= "11.30.840.1.220811.08.03.22.4.2" /> <id nullFlavor="NA" /> < code codeSystem="local" code="UCOC1" displayName="Cocaine" /> < statusCode code="completed" /> <effectiveTime value="" /> <value unit="NA" xsi:type="PQ" value="Negative" /> < referenceRange> <observationRange> <text /> < /observationRange> </referenceRange> </observation> </ component> <component> <observation moodCode="EVN" classCode="OBS"> <templateId root="11.30.840.1.446506.1022.4.2" /> <id nullFlavor="NA" /> <code codeSystem="local" code="UMTD1" displayName= "EDDP (Methadone met.)" /> <statusCode code="completed" /> < effectiveTime value="" /> <value unit="NA" xsi:type="PQ" value="Negative" /> <referenceRange> <observationRange> <text /> </observationRange> </referenceRange> </observation> </component> <component> <observation moodCode="EVN" classCode="OBS"> <templateId root= "216.840.1.085173.10...4.2" /> <id nullFlavor="NA" /> < code codeSystem="local" code="UOPI1" displayName="Opiate" /> < statusCode code="completed" /> <effectiveTime value="543634821122" /> <value unit="NA" xsi:type="PQ" value="Negative" /> < referenceRange> <observationRange> <text /> < /observationRange> </referenceRange> </observation> </ component> <component> <observation moodCode="EVN" classCode="OBS"> <templateId root="11.30.840.1.810228.10..4.2" /> <id nullFlavor="NA" /> <code codeSystem="local" code="UPCP1" displayName= "Phencyclidine (PCP)" /> <statusCode code="completed" /> < effectiveTime value="017412119059" /> <value unit="NA" xsi:type="PQ" value="Negative" /> <referenceRange> <observationRange> <text /> </observationRange> </referenceRange> </observation> </component> </organizer> </entry> <entry> < organizer moodCode="EVN" classCode="BATTERY"> <templateId root= "11.30.840.1.366696.10..22.4.1" /> <id nullFlavor="NA" /> <code codeSystem="local" code="SALIC" displayName="Salicylate" /> <statusCode code="completed" /> <component> <observation moodCode="EVN" classCode="OBS"> <templateId root="2.16.840.1.999535.10..22.4.2" /> <id nullFlavor="NA" /> <code codeSystem="local" code="SALIC" displayName="Salicylate" /> <statusCode code="completed" /> < effectiveTime value="393198221398" /> <value unit="mg/dL" xsi:type="PQ " value="<4" /> <referenceRange> <observationRange> <text>0-30</text> </observationRange> </ referenceRange> </observation> </component> </organizer> </entry > <entry> <organizer moodCode="EVN" classCode="BATTERY"> <templateId root="2.16.840.1.530078.10..22.4.1" /> <id nullFlavor="NA" /> <code codeSystem="local" code="ACETM" displayName="Acetaminophen" /> <statusCode code="completed" /> <component> <observation moodCode="EVN" classCode="OBS"> <templateId root="2.16.840.1.853046.10.20.22.4.2" /> <id nullFlavor="NA" /> <code codeSystem="local" code="ACETM" displayName="Acetaminophen" /> <statusCode code="completed" /> <effectiveTime value="534012041471" /> <value unit="mcg/mL" xsi:type= "PQ" value="277" /> <interpretationCode codeSystem="local" code="" / > <referenceRange> <observationRange> <text>10- 30</text> </observationRange> </referenceRange> </ observation> </component> </organizer> </entry> <entry> <organizer moodCode="EVN" classCode="BATTERY"> <templateId root= "11.30.840.1.470346.10..22.4.1" /> <id nullFlavor="NA" /> <code codeSystem="local" code="CMP" displayName="Comprehensive Metabolic Panel (CMP)" /> <statusCode code="completed" /> <component> <observation moodCode="EVN" classCode="OBS"> <templateId root= "11.30.840.1.148947.10..4.2" /> <id nullFlavor="NA" /> < code codeSystem="local" code="ALB" displayName="Albumin" /> < statusCode code="completed" /> <effectiveTime value="583057549034" /> <value unit="g/dL" xsi:type="PQ" value="3.9" /> < referenceRange> <observationRange> <text>3.5-4.8</text> </observationRange> </referenceRange> </observation > </component> <component> <observation moodCode="EVN" classCode="OBS"> <templateId root="11.30.840.1.550588.10...4.2" /> <id nullFlavor="NA" /> <code codeSystem="local" code="ALP" displayName="Alkaline Phosphatase" /> <statusCode code="completed" /> <effectiveTime value="737931328966" /> <value unit="U/L" xsi: type="PQ" value="61" /> <referenceRange> <observationRange> <text>26-104</text> </observationRange> </ referenceRange> </observation> </component> <component> <observation moodCode="EVN" classCode="OBS"> <templateId root= "11.30.840.1.487489.10..4.2" /> <id nullFlavor="NA" /> < code codeSystem="local" code="ALT" displayName="ALT (SGPT)" /> < statusCode code="completed" /> <effectiveTime value="665598161593" /> <value unit="U/L" xsi:type="PQ" value="19" /> <referenceRange > <observationRange> <text>14-54</text> </ observationRange> </referenceRange> </observation> </ component> <component> <observation moodCode="EVN" classCode="OBS"> <templateId root="216.840.1.135938.10..4.2" /> <id nullFlavor="NA" /> <code codeSystem="local" code="AGAP" displayName= "Anion Gap" /> <statusCode code="completed" /> <effectiveTime value="736131889401" /> <value unit="mEq/L" xsi:type="PQ" value="9" /> <referenceRange> <observationRange> <text>3-20 </text> </observationRange> </referenceRange> </ observation> </component> <component> <observation moodCode= "EVN" classCode="OBS"> <templateId root="2.16.840.1.054378.10...4.2 " /> <id nullFlavor="NA" /> <code codeSystem="local" code="AST " displayName="AST (SGOT)" /> <statusCode code="completed" /> <effectiveTime value="601705532911" /> <value unit="U/L" xsi:type="PQ" value="22" /> <referenceRange> <observationRange> <text>15-41</text> </observationRange> </referenceRange > </observation> </component> <component> <observation moodCode="EVN" classCode="OBS"> <templateId root= "16.840.1.905358.10..22.4.2" /> <id nullFlavor="NA" /> < code codeSystem="local" code="BILIT" displayName="Bilirubin Total" /> < statusCode code="completed" /> <effectiveTime value="577685863321" /> <value unit="mg/dL" xsi:type="PQ" value="0.9" /> < referenceRange> <observationRange> <text>0.2-1.2</text> </observationRange> </referenceRange> </observation > </component> <component> <observation moodCode="EVN" classCode="OBS"> <templateId root="11.30.840.1.662967.08.03.22.4.2" /> <id nullFlavor="NA" /> <code codeSystem="local" code="BUN" displayName="BUN" /> <statusCode code="completed" /> < effectiveTime value="008683587459" /> <value unit="mg/dL" xsi:type="PQ " value="11" /> <referenceRange> <observationRange> <text>4-20</text> </observationRange> </referenceRange > </observation> </component> <component> <observation moodCode="EVN" classCode="OBS"> <templateId root= "11.30.840.1.204535..22.4.2" /> <id nullFlavor="NA" /> < code codeSystem="local" code="CA" displayName="Calcium" /> <statusCode code="completed" /> <effectiveTime value="919583229639" /> < value unit="mg/dL" xsi:type="PQ" value="8.5" /> <interpretationCode codeSystem="local" code="*" /> <referenceRange> < observationRange> <text>8.6-10.0</text> </ observationRange> </referenceRange> </observation> </ component> <component> <observation moodCode="EVN" classCode="OBS"> <templateId root="11.30.840.1.537104.10.20.22.4.2" /> <id nullFlavor="NA" /> <code codeSystem="local" code="CL" displayName= "Chloride" /> <statusCode code="completed" /> <effectiveTime value="379611198793" /> <value unit="mEq/L" xsi:type="PQ" value="110" / > <interpretationCode codeSystem="local" code="*" /> < referenceRange> <observationRange> <text>99-109</text> </observationRange> </referenceRange> </observation> </component> <component> <observation moodCode="EVN" classCode ="OBS"> <templateId root="840.1.454698.10..4.2" /> < id nullFlavor="NA" /> <code codeSystem="local" code="CO2" displayName= "CO2" /> <statusCode code="completed" /> <effectiveTime value= "641876815487" /> <value unit="mEq/L" xsi:type="PQ" value="21" /> <interpretationCode codeSystem="local" code="*" /> <referenceRange > <observationRange> <text>22-32</text> </ observationRange> </referenceRange> </observation> </ component> <component> <observation moodCode="EVN" classCode="OBS"> <templateId root="11.30.840.1.121221.10.20.22.4.2" /> <id nullFlavor="NA" /> <code codeSystem="local" code="CREAT" displayName= "Creatinine" /> <statusCode code="completed" /> < effectiveTime value="172812257392" /> <value unit="mg/dL" xsi:type="PQ " value="0.83" /> <referenceRange> <observationRange> <text>0.44-1.03</text> </observationRange> </ referenceRange> </observation> </component> <component> <observation moodCode="EVN" classCode="OBS"> <templateId root= "11.30.840.1.427323.10..22.4.2" /> <id nullFlavor="NA" /> < code codeSystem="local" code="GLOB" displayName="Globulin" /> < statusCode code="completed" /> <effectiveTime value="621562176942" /> <value unit="g/dL" xsi:type="PQ" value="2.7" /> < referenceRange> <observationRange> <text>1.9-4.3</text> </observationRange> </referenceRange> </observation > </component> <component> <observation moodCode="EVN" classCode="OBS"> <templateId root="11.30.840.1.727648.10...4.2" /> <id nullFlavor="NA" /> <code codeSystem="local" code="GLU" displayName="Glucose" /> <statusCode code="completed" /> < effectiveTime value="025260035089" /> <value unit="mg/dL" xsi:type="PQ " value="90" /> <referenceRange> <observationRange> <text>70-100</text> </observationRange> </ referenceRange> </observation> </component> <component> <observation moodCode="EVN" classCode="OBS"> <templateId root= "11.30.840.1.766998.08.03.22.4.2" /> <id nullFlavor="NA" /> < code codeSystem="local" code="K" displayName="Potassium" /> < statusCode code="completed" /> <effectiveTime value="038828437084" /> <value unit="mEq/L" xsi:type="PQ" value="3.5" /> < interpretationCode codeSystem="local" code="*" /> <referenceRange> <observationRange> <text>3.6-5.1</text> </ observationRange> </referenceRange> </observation> </ component> <component> <observation moodCode="EVN" classCode="OBS"> <templateId root="2.16.840.1.469060.08.03.224.2" /> <id nullFlavor="NA" /> <code codeSystem="local" code="TP" displayName= "Protein" /> <statusCode code="completed" /> <effectiveTime value="991127196169" /> <value unit="g/dL" xsi:type="PQ" value="6.6" / > <referenceRange> <observationRange> <text>6.1 -7.9</text> </observationRange> </referenceRange> </ observation> </component> <component> <observation moodCode= "EVN" classCode="OBS"> <templateId root="216.840.1.827524.08.03.22.4.2 " /> <id nullFlavor="NA" /> <code codeSystem="local" code="NA " displayName="Sodium" /> <statusCode code="completed" /> < effectiveTime value="486120005377" /> <value unit="mEq/L" xsi:type="PQ " value="140" /> <referenceRange> <observationRange> <text>136-144</text> </observationRange> </ referenceRange> </observation> </component> </organizer> </entry > <entry> <organizer moodCode="EVN" classCode="BATTERY"> <templateId root="11.30.840.1.407527.08.03.22.4.1" /> <id nullFlavor="NA" /> <code codeSystem="local" code="ALC" displayName="Alcohol, Blood" /> <statusCode code="completed" /> <component> <observation moodCode="EVN" classCode="OBS"> <templateId root="840.1.121268.08.03.224.2" /> <id nullFlavor="NA" /> <code codeSystem="local" code="ALC" displayName="Alcohol, Blood" /> <statusCode code="completed" /> <effectiveTime value="674590969400" /> <value unit="mg/dL" xsi:type= "PQ" value="Not Detected" /> <referenceRange> < observationRange> <text /> </observationRange> </referenceRange> </observation> </component> </organizer> </ entry> <entry> <organizer moodCode="EVN" classCode="BATTERY"> < templateId root="840.1.251612.08.03.22.4.1" /> <id nullFlavor="NA" /> <code codeSystem="local" code="GFR" displayName="eGFR" /> < statusCode code="completed" /> <component> <observation moodCode= "EVN" classCode="OBS"> <templateId root="840.1.170898.08.03.22.4.2 " /> <id nullFlavor="NA" /> <code codeSystem="local" code="GFR " displayName="eGFR" /> <statusCode code="completed" /> < effectiveTime value="973056643281" /> <value unit="mL/min" xsi:type="PQ " value=">60" /> <referenceRange> <observationRange> <text>>60</text> </observationRange> </ referenceRange> </observation> </component> </organizer> </entry > <entry> <organizer moodCode="EVN" classCode="BATTERY"> <templateId root="11.30.840.1.905298.10.22.4.1" /> <id nullFlavor="NA" /> <code codeSystem="local" code="CBCND" displayName="CBC With Platelet No Differential" /> <statusCode code="completed" /> <component> <observation moodCode="EVN" classCode="OBS"> <templateId root= "11.30.840.1.291965.10..4.2" /> <id nullFlavor="NA" /> < code codeSystem="local" code="HCT" displayName="HCT" /> <statusCode code="completed" /> <effectiveTime value="609365256552" /> < value unit="%" xsi:type="PQ" value="36.8" /> <interpretationCode codeSystem="local" code="*" /> <referenceRange> < observationRange> <text>37.0-47.0</text> </ observationRange> </referenceRange> </observation> </ component> <component> <observation moodCode="EVN" classCode="OBS"> <templateId root="11.30.840.1.110081.10..4.2" /> <id nullFlavor="NA" /> <code codeSystem="local" code="HGB" displayName="HGB " /> <statusCode code="completed" /> <effectiveTime value= "210569593901" /> <value unit="g/dL" xsi:type="PQ" value="12.7" /> <referenceRange> <observationRange> <text>12.0- 16.0</text> </observationRange> </referenceRange> </ observation> </component> <component> <observation moodCode= "EVN" classCode="OBS"> <templateId root="216.840.1.883935.10.20.22.4.2 " /> <id nullFlavor="NA" /> <code codeSystem="local" code="MCH " displayName="MCH" /> <statusCode code="completed" /> < effectiveTime value="470031053784" /> <value unit="pg" xsi:type="PQ" value="31.8" /> <referenceRange> <observationRange> <text>27.0-32.0</text> </observationRange> </ referenceRange> </observation> </component> <component> <observation moodCode="EVN" classCode="OBS"> <templateId root= "11.30.840.1.656625.10..4.2" /> <id nullFlavor="NA" /> < code codeSystem="local" code="MCHC" displayName="MCHC" /> <statusCode code="completed" /> <effectiveTime value="417687606961" /> < value unit="g/dL" xsi:type="PQ" value="34.5" /> <referenceRange> <observationRange> <text>32.0-36.0</text> </ observationRange> </referenceRange> </observation> </ component> <component> <observation moodCode="EVN" classCode="OBS"> <templateId root="11.30.840.1.435176.10.20.22.4.2" /> <id nullFlavor="NA" /> <code codeSystem="local" code="MCV" displayName="MCV " /> <statusCode code="completed" /> <effectiveTime value= "" /> <value unit="fL" xsi:type="PQ" value="92.0" /> <referenceRange> <observationRange> <text>82.0-99.0< /text> </observationRange> </referenceRange> </ observation> </component> <component> <observation moodCode= "EVN" classCode="OBS"> <templateId root="11.30.840.1.747459.10.22.4.2 " /> <id nullFlavor="NA" /> <code codeSystem="local" code="MPV " displayName="MPV" /> <statusCode code="completed" /> < effectiveTime value="861729662162" /> <value unit="fL" xsi:type="PQ" value="10.7" /> <referenceRange> <observationRange> <text>9.4-12.4</text> </observationRange> </ referenceRange> </observation> </component> <component> <observation moodCode="EVN" classCode="OBS"> <templateId root= "11.30.840.1.501277...22.4.2" /> <id nullFlavor="NA" /> < code codeSystem="local" code="PLT" displayName="Platelet Count" /> < statusCode code="completed" /> <effectiveTime value="" /> <value unit="K/uL" xsi:type="PQ" value="266" /> < referenceRange> <observationRange> <text>150-400</text> </observationRange> </referenceRange> </observation > </component> <component> <observation moodCode="EVN" classCode="OBS"> <templateId root="11.30.840.1.224296.10.4.2" /> <id nullFlavor="NA" /> <code codeSystem="local" code="RBC" displayName="RBC" /> <statusCode code="completed" /> < effectiveTime value="" /> <value unit="10*6/uL" xsi:type= "PQ" value="4.00" /> <referenceRange> <observationRange> <text>4.00-5.20</text> </observationRange> </ referenceRange> </observation> </component> <component> <observation moodCode="EVN" classCode="OBS"> <templateId root= "2.16.840.1.339309.08.03.22.4.2" /> <id nullFlavor="NA" /> < code codeSystem="local" code="RDW" displayName="RDW" /> <statusCode code="completed" /> <effectiveTime value="" /> < value unit="%" xsi:type="PQ" value="13.0" /> <referenceRange> <observationRange> <text>11.5-14.5</text> </ observationRange> </referenceRange> </observation> </ component> <component> <observation moodCode="EVN" classCode="OBS"> <templateId root="2.16.840.1.888643.08.03.22.4.2" /> <id nullFlavor="NA" /> <code codeSystem="local" code="WBCIR" displayName= "WBC" /> <statusCode code="completed" /> <effectiveTime value= "" /> <value unit="K/uL" xsi:type="PQ" value="7.3" /> <referenceRange> <observationRange> <text>4.8-10.8< /text> </observationRange> </referenceRange> </ observation> </component> </organizer> </entry> <entry> <organizer moodCode="EVN" classCode="BATTERY"> <templateId root= "840.1.260048.08.03.22.4.1" /> <id nullFlavor="NA" /> <code codeSystem="local" code="PT" displayName="Protime (INR)" /> <statusCode code="completed" /> <component> <observation moodCode="EVN" classCode="OBS"> <templateId root="840.1.991485.08.03.22.4.2" /> <id nullFlavor="NA" /> <code codeSystem="local" code="INR" displayName="INR" /> <statusCode code="completed" /> < effectiveTime value="250297882553" /> <value unit="NA" xsi:type="PQ" value="1.3" /> <interpretationCode codeSystem="local" code="*" /> <referenceRange> <observationRange> <text>0.9-1.2</ text> </observationRange> </referenceRange> </ observation> </component> </organizer> </entry> <entry> <organizer moodCode="EVN" classCode="BATTERY"> <templateId root= "840.1.921198.08.03.22.4.1" /> <id nullFlavor="NA" /> <code codeSystem="local" code="CMP" displayName="Comprehensive Metabolic Panel (CMP)" /> <statusCode code="completed" /> <component> <observation moodCode="EVN" classCode="OBS"> <templateId root= "840.1.568719.08.03..4.2" /> <id nullFlavor="NA" /> < code codeSystem="local" code="ALB" displayName="Albumin" /> < statusCode code="completed" /> <effectiveTime value="609838983336" /> <value unit="g/dL" xsi:type="PQ" value="3.3" /> < interpretationCode codeSystem="local" code="*" /> <referenceRange> <observationRange> <text>3.5-4.8</text> </ observationRange> </referenceRange> </observation> </ component> <component> <observation moodCode="EVN" classCode="OBS"> <templateId root="216.840.1.757933.10..22.4.2" /> <id nullFlavor="NA" /> <code codeSystem="local" code="ALP" displayName= "Alkaline Phosphatase" /> <statusCode code="completed" /> < effectiveTime value="357833194349" /> <value unit="U/L" xsi:type="PQ" value="50" /> <referenceRange> <observationRange> <text>26-104</text> </observationRange> </referenceRange > </observation> </component> <component> <observation moodCode="EVN" classCode="OBS"> <templateId root= "216.840.1.944815.10.20.22.4.2" /> <id nullFlavor="NA" /> < code codeSystem="local" code="ALT" displayName="ALT (SGPT)" /> < statusCode code="completed" /> <effectiveTime value="626899835313" /> <value unit="U/L" xsi:type="PQ" value="18" /> <referenceRange > <observationRange> <text>14-54</text> </ observationRange> </referenceRange> </observation> </ component> <component> <observation moodCode="EVN" classCode="OBS"> <templateId root="216.840.1.925119.08.03.22.4.2" /> <id nullFlavor="NA" /> <code codeSystem="local" code="AGAP" displayName= "Anion Gap" /> <statusCode code="completed" /> <effectiveTime value="741548959459" /> <value unit="mEq/L" xsi:type="PQ" value="9" /> <referenceRange> <observationRange> <text>3-20 </text> </observationRange> </referenceRange> </ observation> </component> <component> <observation moodCode= "EVN" classCode="OBS"> <templateId root="216.840.1.971591.08.03.22.4.2 " /> <id nullFlavor="NA" /> <code codeSystem="local" code="AST " displayName="AST (SGOT)" /> <statusCode code="completed" /> <effectiveTime value="855027217239" /> <value unit="U/L" xsi:type="PQ" value="16" /> <referenceRange> <observationRange> <text>15-41</text> </observationRange> </referenceRange > </observation> </component> <component> <observation moodCode="EVN" classCode="OBS"> <templateId root= "216.840.1.996917.08.03.22.4.2" /> <id nullFlavor="NA" /> < code codeSystem="local" code="BILIT" displayName="Bilirubin Total" /> < statusCode code="completed" /> <effectiveTime value="167099756522" /> <value unit="mg/dL" xsi:type="PQ" value="0.5" /> < referenceRange> <observationRange> <text>0.2-1.2</text> </observationRange> </referenceRange> </observation > </component> <component> <observation moodCode="EVN" classCode="OBS"> <templateId root="16.840.1.244732.10.22.4.2" /> <id nullFlavor="NA" /> <code codeSystem="local" code="BUN" displayName="BUN" /> <statusCode code="completed" /> < effectiveTime value="" /> <value unit="mg/dL" xsi:type="PQ " value="8" /> <referenceRange> <observationRange> <text>4-20</text> </observationRange> </referenceRange > </observation> </component> <component> <observation moodCode="EVN" classCode="OBS"> <templateId root= "11.30.840.1.493974.1022.4.2" /> <id nullFlavor="NA" /> < code codeSystem="local" code="CA" displayName="Calcium" /> <statusCode code="completed" /> <effectiveTime value="783689706607" /> < value unit="mg/dL" xsi:type="PQ" value="8.3" /> <interpretationCode codeSystem="local" code="*" /> <referenceRange> < observationRange> <text>8.6-10.0</text> </ observationRange> </referenceRange> </observation> </ component> <component> <observation moodCode="EVN" classCode="OBS"> <templateId root="11.30.840.1.702506.10.2022.4.2" /> <id nullFlavor="NA" /> <code codeSystem="local" code="CL" displayName= "Chloride" /> <statusCode code="completed" /> <effectiveTime value="773151824175" /> <value unit="mEq/L" xsi:type="PQ" value="109" / > <referenceRange> <observationRange> <text>99- 109</text> </observationRange> </referenceRange> </ observation> </component> <component> <observation moodCode= "EVN" classCode="OBS"> <templateId root="11.30.840.1.773758.10.20.22.4.2 " /> <id nullFlavor="NA" /> <code codeSystem="local" code="CO2 " displayName="CO2" /> <statusCode code="completed" /> < effectiveTime value="000832860733" /> <value unit="mEq/L" xsi:type="PQ " value="21" /> <interpretationCode codeSystem="local" code="*" /> <referenceRange> <observationRange> <text>22-32</ text> </observationRange> </referenceRange> </ observation> </component> <component> <observation moodCode= "EVN" classCode="OBS"> <templateId root="840.1.963905.10.2022.4.2 " /> <id nullFlavor="NA" /> <code codeSystem="local" code= "CREAT" displayName="Creatinine" /> <statusCode code="completed" /> <effectiveTime value="109305100211" /> <value unit="mg/dL" xsi: type="PQ" value="0.68" /> <referenceRange> <observationRange > <text>0.44-1.03</text> </observationRange> </ referenceRange> </observation> </component> <component> <observation moodCode="EVN" classCode="OBS"> <templateId root= "11.30.840.1.570505.10.20.22.4.2" /> <id nullFlavor="NA" /> < code codeSystem="local" code="GLOB" displayName="Globulin" /> < statusCode code="completed" /> <effectiveTime value="073563444873" /> <value unit="g/dL" xsi:type="PQ" value="2.3" /> < referenceRange> <observationRange> <text>1.9-4.3</text> </observationRange> </referenceRange> </observation > </component> <component> <observation moodCode="EVN" classCode="OBS"> <templateId root="11.30.840.1.816159.10..22.4.2" /> <id nullFlavor="NA" /> <code codeSystem="local" code="GLU" displayName="Glucose" /> <statusCode code="completed" /> < effectiveTime value="021541994568" /> <value unit="mg/dL" xsi:type="PQ " value="104" /> <interpretationCode codeSystem="local" code="*" /> <referenceRange> <observationRange> <text>70-100< /text> </observationRange> </referenceRange> </ observation> </component> <component> <observation moodCode= "EVN" classCode="OBS"> <templateId root="16.840.1.608962.10.20.22.4.2 " /> <id nullFlavor="NA" /> <code codeSystem="local" code="K" displayName="Potassium" /> <statusCode code="completed" /> < effectiveTime value="236469627511" /> <value unit="mEq/L" xsi:type="PQ " value="3.4" /> <interpretationCode codeSystem="local" code="*" /> <referenceRange> <observationRange> <text>3.6-5.1 </text> </observationRange> </referenceRange> </ observation> </component> <component> <observation moodCode= "EVN" classCode="OBS"> <templateId root="840.1.096679.10..22.4.2 " /> <id nullFlavor="NA" /> <code codeSystem="local" code="TP " displayName="Protein" /> <statusCode code="completed" /> < effectiveTime value="076728750698" /> <value unit="g/dL" xsi:type="PQ" value="5.6" /> <interpretationCode codeSystem="local" code="*" /> <referenceRange> <observationRange> <text>6.1-7.9</ text> </observationRange> </referenceRange> </ observation> </component> <component> <observation moodCode= "EVN" classCode="OBS"> <templateId root="840.1.607270.08.03.22.4.2 " /> <id nullFlavor="NA" /> <code codeSystem="local" code="NA " displayName="Sodium" /> <statusCode code="completed" /> < effectiveTime value="476241155350" /> <value unit="mEq/L" xsi:type="PQ " value="139" /> <referenceRange> <observationRange> <text>136-144</text> </observationRange> </ referenceRange> </observation> </component> </organizer> </entry > <entry> <organizer moodCode="EVN" classCode="BATTERY"> <templateId root="840.1.702890.10.22.4.1" /> <id nullFlavor="NA" /> <code codeSystem="local" code="ACETM" displayName="Acetaminophen" /> <statusCode code="completed" /> <component> <observation moodCode="EVN" classCode="OBS"> <templateId root="840.1.438407.10...4.2" /> <id nullFlavor="NA" /> <code codeSystem="local" code="ACETM" displayName="Acetaminophen" /> <statusCode code="completed" /> <effectiveTime value="783540980000" /> <value unit="mcg/mL" xsi:type= "PQ" value="45" /> <interpretationCode codeSystem="local" code="*" /> <referenceRange> <observationRange> <text>10-30 </text> </observationRange> </referenceRange> </ observation> </component> </organizer> </entry> <entry> <organizer moodCode="EVN" classCode="BATTERY"> <templateId root= "216.840.1.320230.10..4.1" /> <id nullFlavor="NA" /> <code codeSystem="local" code="GFR" displayName="eGFR" /> <statusCode code= "completed" /> <component> <observation moodCode="EVN" classCode= "OBS"> <templateId root="216.840.1.568994.10...4.2" /> < id nullFlavor="NA" /> <code codeSystem="local" code="GFR" displayName= "eGFR" /> <statusCode code="completed" /> <effectiveTime value ="061539938822" /> <value unit="mL/min" xsi:type="PQ" value=">60" / > <referenceRange> <observationRange> <text>&gt ;60</text> </observationRange> </referenceRange> </ observation> </component> </organizer> </entry> <entry> <organizer moodCode="EVN" classCode="BATTERY"> <templateId root= "216.840.1.392212.08.03.22.4.1" /> <id nullFlavor="NA" /> <code codeSystem="local" code="CMP" displayName="Comprehensive Metabolic Panel (CMP)" /> <statusCode code="completed" /> <component> <observation moodCode="EVN" classCode="OBS"> <templateId root= "11.30.840.1.444577.10..22.4.2" /> <id nullFlavor="NA" /> < code codeSystem="local" code="ALB" displayName="Albumin" /> < statusCode code="completed" /> <effectiveTime value="195479916365" /> <value unit="g/dL" xsi:type="PQ" value="3.2" /> < interpretationCode codeSystem="local" code="*" /> <referenceRange> <observationRange> <text>3.5-4.8</text> </ observationRange> </referenceRange> </observation> </ component> <component> <observation moodCode="EVN" classCode="OBS"> <templateId root="840.1.038485...4.2" /> <id nullFlavor="NA" /> <code codeSystem="local" code="ALP" displayName= "Alkaline Phosphatase" /> <statusCode code="completed" /> < effectiveTime value="[id number]" /> <value unit="U/L" xsi:type="PQ" value="45" /> <referenceRange> <observationRange> <text>26-104</text> </observationRange> </referenceRange > </observation> </component> <component> <observation moodCode="EVN" classCode="OBS"> <templateId root= "11.30.840.1.970260.10...4.2" /> <id nullFlavor="NA" /> < code codeSystem="local" code="ALT" displayName="ALT (SGPT)" /> < statusCode code="completed" /> <effectiveTime value="" /> <value unit="U/L" xsi:type="PQ" value="17" /> <referenceRange > <observationRange> <text>14-54</text> </ observationRange> </referenceRange> </observation> </ component> <component> <observation moodCode="EVN" classCode="OBS"> <templateId root="11.30.840.1.982863.10..22.4.2" /> <id nullFlavor="NA" /> <code codeSystem="local" code="AGAP" displayName= "Anion Gap" /> <statusCode code="completed" /> <effectiveTime value="" /> <value unit="mEq/L" xsi:type="PQ" value="6" /> <referenceRange> <observationRange> <text>3-20 </text> </observationRange> </referenceRange> </ observation> </component> <component> <observation moodCode= "EVN" classCode="OBS"> <templateId root="11.30.840.1.759894.10..22.4.2 " /> <id nullFlavor="NA" /> <code codeSystem="local" code="AST " displayName="AST (SGOT)" /> <statusCode code="completed" /> <effectiveTime value="862921987297" /> <value unit="U/L" xsi:type="PQ" value="14" /> <interpretationCode codeSystem="local" code="*" /> <referenceRange> <observationRange> <text>15-41</ text> </observationRange> </referenceRange> </ observation> </component> <component> <observation moodCode= "EVN" classCode="OBS"> <templateId root="840.1.225027.08.03.22.4.2 " /> <id nullFlavor="NA" /> <code codeSystem="local" code= "BILIT" displayName="Bilirubin Total" /> <statusCode code="completed" / > <effectiveTime value="" /> <value unit="mg/dL" xsi:type="PQ" value="0.8" /> <referenceRange> < observationRange> <text>0.2-1.2</text> </ observationRange> </referenceRange> </observation> </ component> <component> <observation moodCode="EVN" classCode="OBS"> <templateId root="216.840.1.123213.08.03.22.4.2" /> <id nullFlavor="NA" /> <code codeSystem="local" code="BUN" displayName="BUN " /> <statusCode code="completed" /> <effectiveTime value= "" /> <value unit="mg/dL" xsi:type="PQ" value="5" /> <referenceRange> <observationRange> <text>4-20</text > </observationRange> </referenceRange> </observation > </component> <component> <observation moodCode="EVN" classCode="OBS"> <templateId root="16.840.1.989526.08.03.22.4.2" /> <id nullFlavor="NA" /> <code codeSystem="local" code="CA" displayName="Calcium" /> <statusCode code="completed" /> < effectiveTime value="208629750528" /> <value unit="mg/dL" xsi:type="PQ " value="8.0" /> <interpretationCode codeSystem="local" code="*" /> <referenceRange> <observationRange> <text>8.6- 10.0</text> </observationRange> </referenceRange> </ observation> </component> <component> <observation moodCode= "EVN" classCode="OBS"> <templateId root="216.840.1.783624.10.22.4.2 " /> <id nullFlavor="NA" /> <code codeSystem="local" code="CL " displayName="Chloride" /> <statusCode code="completed" /> < effectiveTime value="" /> <value unit="mEq/L" xsi:type="PQ " value="109" /> <referenceRange> <observationRange> <text>99-109</text> </observationRange> </ referenceRange> </observation> </component> <component> <observation moodCode="EVN" classCode="OBS"> <templateId root= "11.30.840.1.561587.08.03.22.4.2" /> <id nullFlavor="NA" /> < code codeSystem="local" code="CO2" displayName="CO2" /> <statusCode code="completed" /> <effectiveTime value="" /> < value unit="mEq/L" xsi:type="PQ" value="23" /> <referenceRange> <observationRange> <text>22-32</text> </ observationRange> </referenceRange> </observation> </ component> <component> <observation moodCode="EVN" classCode="OBS"> <templateId root="216.840.1.817785.10..22.4.2" /> <id nullFlavor="NA" /> <code codeSystem="local" code="CREAT" displayName= "Creatinine" /> <statusCode code="completed" /> < effectiveTime value="" /> <value unit="mg/dL" xsi:type="PQ " value="0.78" /> <referenceRange> <observationRange> <text>0.44-1.03</text> </observationRange> </ referenceRange> </observation> </component> <component> <observation moodCode="EVN" classCode="OBS"> <templateId root= "11.30.840.1.580466.10.22.4.2" /> <id nullFlavor="NA" /> < code codeSystem="local" code="GLOB" displayName="Globulin" /> < statusCode code="completed" /> <effectiveTime value="493558522436" /> <value unit="g/dL" xsi:type="PQ" value="2.3" /> < referenceRange> <observationRange> <text>1.9-4.3</text> </observationRange> </referenceRange> </observation > </component> <component> <observation moodCode="EVN" classCode="OBS"> <templateId root="840.1.924001.08.03.22.4.2" /> <id nullFlavor="NA" /> <code codeSystem="local" code="GLU" displayName="Glucose" /> <statusCode code="completed" /> < effectiveTime value="031677487406" /> <value unit="mg/dL" xsi:type="PQ " value="99" /> <referenceRange> <observationRange> <text>70-100</text> </observationRange> </ referenceRange> </observation> </component> <component> <observation moodCode="EVN" classCode="OBS"> <templateId root= "840.1.215566.1022.4.2" /> <id nullFlavor="NA" /> < code codeSystem="local" code="K" displayName="Potassium" /> < statusCode code="completed" /> <effectiveTime value="047757326746" /> <value unit="mEq/L" xsi:type="PQ" value="3.0" /> < interpretationCode codeSystem="local" code="*" /> <referenceRange> <observationRange> <text>3.6-5.1</text> </ observationRange> </referenceRange> </observation> </ component> <component> <observation moodCode="EVN" classCode="OBS"> <templateId root="2.16.840.1.200737.10.20.22.4.2" /> <id nullFlavor="NA" /> <code codeSystem="local" code="TP" displayName= "Protein" /> <statusCode code="completed" /> <effectiveTime value="339527275438" /> <value unit="g/dL" xsi:type="PQ" value="5.5" / > <interpretationCode codeSystem="local" code="*" /> < referenceRange> <observationRange> <text>6.1-7.9</text> </observationRange> </referenceRange> </observation > </component> <component> <observation moodCode="EVN" classCode="OBS"> <templateId root="2.16.840.1.510556.10.20.22.4.2" /> <id nullFlavor="NA" /> <code codeSystem="local" code="NA" displayName="Sodium" /> <statusCode code="completed" /> < effectiveTime value="366911811615" /> <value unit="mEq/L" xsi:type="PQ " value="138" /> <referenceRange> <observationRange> <text>136-144</text> </observationRange> </ referenceRange> </observation> </component> </organizer> </entry > <entry> <organizer moodCode="EVN" classCode="BATTERY"> <templateId root="11.30.840.1.191484.08.03.22.4.1" /> <id nullFlavor="NA" /> <code codeSystem="local" code="ACETM" displayName="Acetaminophen" /> <statusCode code="completed" /> <component> <observation moodCode="EVN" classCode="OBS"> <templateId root="840.1.909530.08.03.22.4.2" /> <id nullFlavor="NA" /> <code codeSystem="local" code="ACETM" displayName="Acetaminophen" /> <statusCode code="completed" /> <effectiveTime value="" /> <value unit="mcg/mL" xsi:type= "PQ" value="<10" /> <referenceRange> <observationRange> <text>10-30</text> </observationRange> </ referenceRange> </observation> </component> </organizer> </entry > <entry> <organizer moodCode="EVN" classCode="BATTERY"> <templateId root="840.1.051041.08.03.22.4.1" /> <id nullFlavor="NA" /> <code codeSystem="local" code="GFR" displayName="eGFR" /> <statusCode code= "completed" /> <component> <observation moodCode="EVN" classCode= "OBS"> <templateId root="11.30.840.1.696594.08.03.22.4.2" /> < id nullFlavor="NA" /> <code codeSystem="local" code="GFR" displayName= "eGFR" /> <statusCode code="completed" /> <effectiveTime value ="" /> <value unit="mL/min" xsi:type="PQ" value=">60" / > <referenceRange> <observationRange> <text>&gt ;60</text> </observationRange> </referenceRange> </ observation> </component> </organizer> </entry> <entry> <organizer moodCode="EVN" classCode="BATTERY"> <templateId root= "16.840.1.957964.10..22.4.1" /> <id nullFlavor="NA" /> <code codeSystem="local" code="CBCND" displayName="CBC With Platelet No Differential" /> <statusCode code="completed" /> <component> <observation moodCode="EVN" classCode="OBS"> <templateId root= "2.840.1.399268.10...4.2" /> <id nullFlavor="NA" /> < code codeSystem="local" code="HCT" displayName="HCT" /> <statusCode code="completed" /> <effectiveTime value="643022878180" /> < value unit="%" xsi:type="PQ" value="35.8" /> <interpretationCode codeSystem="local" code="*" /> <referenceRange> < observationRange> <text>37.0-47.0</text> </ observationRange> </referenceRange> </observation> </ component> <component> <observation moodCode="EVN" classCode="OBS"> <templateId root="11.30.840.1.859001.10.22.4.2" /> <id nullFlavor="NA" /> <code codeSystem="local" code="HGB" displayName="HGB " /> <statusCode code="completed" /> <effectiveTime value= "068108500922" /> <value unit="g/dL" xsi:type="PQ" value="11.9" /> <interpretationCode codeSystem="local" code="*" /> < referenceRange> <observationRange> <text>12.0-16.0</text > </observationRange> </referenceRange> </observation > </component> <component> <observation moodCode="EVN" classCode="OBS"> <templateId root="11.30.840.1.675382.10.20.22.4.2" /> <id nullFlavor="NA" /> <code codeSystem="local" code="MCH" displayName="MCH" /> <statusCode code="completed" /> < effectiveTime value="173745659327" /> <value unit="pg" xsi:type="PQ" value="30.7" /> <referenceRange> <observationRange> <text>27.0-32.0</text> </observationRange> </ referenceRange> </observation> </component> <component> <observation moodCode="EVN" classCode="OBS"> <templateId root= "840.1.972622.10.22.4.2" /> <id nullFlavor="NA" /> < code codeSystem="local" code="MCHC" displayName="MCHC" /> <statusCode code="completed" /> <effectiveTime value="403621893287" /> < value unit="g/dL" xsi:type="PQ" value="33.2" /> <referenceRange> <observationRange> <text>32.0-36.0</text> </ observationRange> </referenceRange> </observation> </ component> <component> <observation moodCode="EVN" classCode="OBS"> <templateId root="11.30.840.1.404824.10.20.22.4.2" /> <id nullFlavor="NA" /> <code codeSystem="local" code="MCV" displayName="MCV " /> <statusCode code="completed" /> <effectiveTime value= "908073424790" /> <value unit="fL" xsi:type="PQ" value="92.5" /> <referenceRange> <observationRange> <text>82.0-99.0< /text> </observationRange> </referenceRange> </ observation> </component> <component> <observation moodCode= "EVN" classCode="OBS"> <templateId root="11.30.840.1.426496.08.03.22.4.2 " /> <id nullFlavor="NA" /> <code codeSystem="local" code="MPV " displayName="MPV" /> <statusCode code="completed" /> < effectiveTime value="715495280073" /> <value unit="fL" xsi:type="PQ" value="10.5" /> <referenceRange> <observationRange> <text>9.4-12.4</text> </observationRange> </ referenceRange> </observation> </component> <component> <observation moodCode="EVN" classCode="OBS"> <templateId root= "11.30.840.1.481898.08.03.22.4.2" /> <id nullFlavor="NA" /> < code codeSystem="local" code="PLT" displayName="Platelet Count" /> < statusCode code="completed" /> <effectiveTime value="150098491843" /> <value unit="K/uL" xsi:type="PQ" value="196" /> < referenceRange> <observationRange> <text>150-400</text> </observationRange> </referenceRange> </observation > </component> <component> <observation moodCode="EVN" classCode="OBS"> <templateId root="11.30.840.1.593170.08.03.22.4.2" /> <id nullFlavor="NA" /> <code codeSystem="local" code="RBC" displayName="RBC" /> <statusCode code="completed" /> < effectiveTime value="" /> <value unit="10*6/uL" xsi:type= "PQ" value="3.87" /> <interpretationCode codeSystem="local" code="*" / > <referenceRange> <observationRange> <text> 4.00-5.20</text> </observationRange> </referenceRange> </observation> </component> <component> <observation moodCode="EVN" classCode="OBS"> <templateId root= "2.16.840.1.244555.08.03.22.4.2" /> <id nullFlavor="NA" /> < code codeSystem="local" code="RDW" displayName="RDW" /> <statusCode code="completed" /> <effectiveTime value="" /> < value unit="%" xsi:type="PQ" value="13.1" /> <referenceRange> <observationRange> <text>11.5-14.5</text> </ observationRange> </referenceRange> </observation> </ component> <component> <observation moodCode="EVN" classCode="OBS"> <templateId root="2.16.840.1.695916.2022.4.2" /> <id nullFlavor="NA" /> <code codeSystem="local" code="WBCIR" displayName= "WBC" /> <statusCode code="completed" /> <effectiveTime value= "" /> <value unit="K/uL" xsi:type="PQ" value="5.1" /> <referenceRange> <observationRange> <text>4.8-10.8< /text> </observationRange> </referenceRange> </ observation> </component> </organizer> </entry> <entry> <organizer moodCode="EVN" classCode="BATTERY"> <templateId root= "216.840.1.624804.10..22.4.1" /> <id nullFlavor="NA" /> <code codeSystem="local" code="CMP" displayName="Comprehensive Metabolic Panel (CMP)" /> <statusCode code="completed" /> <component> <observation moodCode="EVN" classCode="OBS"> <templateId root= "216.840.1.307024.10...4.2" /> <id nullFlavor="NA" /> < code codeSystem="local" code="ALB" displayName="Albumin" /> < statusCode code="completed" /> <effectiveTime value="629520433701" /> <value unit="g/dL" xsi:type="PQ" value="3.2" /> < interpretationCode codeSystem="local" code="*" /> <referenceRange> <observationRange> <text>3.5-4.8</text> </ observationRange> </referenceRange> </observation> </ component> <component> <observation moodCode="EVN" classCode="OBS"> <templateId root="216.840.1.131807....4.2" /> <id nullFlavor="NA" /> <code codeSystem="local" code="ALP" displayName= "Alkaline Phosphatase" /> <statusCode code="completed" /> < effectiveTime value="" /> <value unit="U/L" xsi:type="PQ" value="45" /> <referenceRange> <observationRange> <text>26-104</text> </observationRange> </referenceRange > </observation> </component> <component> <observation moodCode="EVN" classCode="OBS"> <templateId root= "16.840.1.552985.10..22.4.2" /> <id nullFlavor="NA" /> < code codeSystem="local" code="ALT" displayName="ALT (SGPT)" /> < statusCode code="completed" /> <effectiveTime value="" /> <value unit="U/L" xsi:type="PQ" value="18" /> <referenceRange > <observationRange> <text>14-54</text> </ observationRange> </referenceRange> </observation> </ component> <component> <observation moodCode="EVN" classCode="OBS"> <templateId root="11.30.840.1.892778.10...4.2" /> <id nullFlavor="NA" /> <code codeSystem="local" code="AGAP" displayName= "Anion Gap" /> <statusCode code="completed" /> <effectiveTime value="" /> <value unit="mEq/L" xsi:type="PQ" value="6" /> <referenceRange> <observationRange> <text>3-20 </text> </observationRange> </referenceRange> </ observation> </component> <component> <observation moodCode= "EVN" classCode="OBS"> <templateId root="11.30.840.1.645653.10..22.4.2 " /> <id nullFlavor="NA" /> <code codeSystem="local" code="AST " displayName="AST (SGOT)" /> <statusCode code="completed" /> <effectiveTime value="" /> <value unit="U/L" xsi:type="PQ" value="15" /> <referenceRange> <observationRange> <text>15-41</text> </observationRange> </referenceRange > </observation> </component> <component> <observation moodCode="EVN" classCode="OBS"> <templateId root= "216.840.1.133630.08.03.22.4.2" /> <id nullFlavor="NA" /> < code codeSystem="local" code="BILIT" displayName="Bilirubin Total" /> < statusCode code="completed" /> <effectiveTime value="" /> <value unit="mg/dL" xsi:type="PQ" value="0.9" /> < referenceRange> <observationRange> <text>0.2-1.2</text> </observationRange> </referenceRange> </observation > </component> <component> <observation moodCode="EVN" classCode="OBS"> <templateId root="11.30.840.1.353549.08.03.22.4.2" /> <id nullFlavor="NA" /> <code codeSystem="local" code="BUN" displayName="BUN" /> <statusCode code="completed" /> < effectiveTime value="" /> <value unit="mg/dL" xsi:type="PQ " value="6" /> <referenceRange> <observationRange> <text>4-20</text> </observationRange> </referenceRange > </observation> </component> <component> <observation moodCode="EVN" classCode="OBS"> <templateId root= "16.840.1.155345.08.03.22.4.2" /> <id nullFlavor="NA" /> < code codeSystem="local" code="CA" displayName="Calcium" /> <statusCode code="completed" /> <effectiveTime value="" /> < value unit="mg/dL" xsi:type="PQ" value="8.2" /> <interpretationCode codeSystem="local" code="*" /> <referenceRange> < observationRange> <text>8.6-10.0</text> </ observationRange> </referenceRange> </observation> </ component> <component> <observation moodCode="EVN" classCode="OBS"> <templateId root="11.30.840.1.364659.22.4.2" /> <id nullFlavor="NA" /> <code codeSystem="local" code="CL" displayName= "Chloride" /> <statusCode code="completed" /> <effectiveTime value="071548713086" /> <value unit="mEq/L" xsi:type="PQ" value="111" / > <interpretationCode codeSystem="local" code="*" /> < referenceRange> <observationRange> <text>99-109</text> </observationRange> </referenceRange> </observation> </component> <component> <observation moodCode="EVN" classCode ="OBS"> <templateId root="11.30.840.1.182006.08.03.22.4.2" /> < id nullFlavor="NA" /> <code codeSystem="local" code="CO2" displayName= "CO2" /> <statusCode code="completed" /> <effectiveTime value= "473119417856" /> <value unit="mEq/L" xsi:type="PQ" value="22" /> <referenceRange> <observationRange> <text>22-32</ text> </observationRange> </referenceRange> </ observation> </component> <component> <observation moodCode= "EVN" classCode="OBS"> <templateId root="11.30.840.1.465559.22.4.2 " /> <id nullFlavor="NA" /> <code codeSystem="local" code= "CREAT" displayName="Creatinine" /> <statusCode code="completed" /> <effectiveTime value="" /> <value unit="mg/dL" xsi: type="PQ" value="0.63" /> <referenceRange> <observationRange > <text>0.44-1.03</text> </observationRange> </ referenceRange> </observation> </component> <component> <observation moodCode="EVN" classCode="OBS"> <templateId root= "216.840.1.042155.10..22.4.2" /> <id nullFlavor="NA" /> < code codeSystem="local" code="GLOB" displayName="Globulin" /> < statusCode code="completed" /> <effectiveTime value="" /> <value unit="g/dL" xsi:type="PQ" value="2.3" /> < referenceRange> <observationRange> <text>1.9-4.3</text> </observationRange> </referenceRange> </observation > </component> <component> <observation moodCode="EVN" classCode="OBS"> <templateId root="16.840.1.913255.10..22.4.2" /> <id nullFlavor="NA" /> <code codeSystem="local" code="GLU" displayName="Glucose" /> <statusCode code="completed" /> < effectiveTime value="" /> <value unit="mg/dL" xsi:type="PQ " value="79" /> <referenceRange> <observationRange> <text>70-100</text> </observationRange> </ referenceRange> </observation> </component> <component> <observation moodCode="EVN" classCode="OBS"> <templateId root= "2.16.840.1.600771.10.22.4.2" /> <id nullFlavor="NA" /> < code codeSystem="local" code="K" displayName="Potassium" /> < statusCode code="completed" /> <effectiveTime value="195762770189" /> <value unit="mEq/L" xsi:type="PQ" value="3.0" /> < interpretationCode codeSystem="local" code="*" /> <referenceRange> <observationRange> <text>3.6-5.1</text> </ observationRange> </referenceRange> </observation> </ component> <component> <observation moodCode="EVN" classCode="OBS"> <templateId root="840.1.809993.08.03.22.4.2" /> <id nullFlavor="NA" /> <code codeSystem="local" code="TP" displayName= "Protein" /> <statusCode code="completed" /> <effectiveTime value="072870486730" /> <value unit="g/dL" xsi:type="PQ" value="5.5" / > <interpretationCode codeSystem="local" code="*" /> < referenceRange> <observationRange> <text>6.1-7.9</text> </observationRange> </referenceRange> </observation > </component> <component> <observation moodCode="EVN" classCode="OBS"> <templateId root="840.1.819936.10.22.4.2" /> <id nullFlavor="NA" /> <code codeSystem="local" code="NA" displayName="Sodium" /> <statusCode code="completed" /> < effectiveTime value="058811821609" /> <value unit="mEq/L" xsi:type="PQ " value="139" /> <referenceRange> <observationRange> <text>136-144</text> </observationRange> </ referenceRange> </observation> </component> </organizer> </entry > <entry> <organizer moodCode="EVN" classCode="BATTERY"> <templateId root="840.1.852361...22.4.1" /> <id nullFlavor="NA" /> <code codeSystem="local" code="GFR" displayName="eGFR" /> <statusCode code= "completed" /> <component> <observation moodCode="EVN" classCode= "OBS"> <templateId root="840.1.358361.08.03.22.4.2" /> < id nullFlavor="NA" /> <code codeSystem="local" code="GFR" displayName= "eGFR" /> <statusCode code="completed" /> <effectiveTime value ="408051782909" /> <value unit="mL/min" xsi:type="PQ" value=">60" / > <referenceRange> <observationRange> <text>&gt ;60</text> </observationRange> </referenceRange> </ observation> </component> </organizer> </entry> <entry> <organizer moodCode="EVN" classCode="BATTERY"> <templateId root= "840.1.234069.08.03.22.4.1" /> <id nullFlavor="NA" /> <code codeSystem="local" code="CBCND" displayName="CBC With Platelet No Differential" /> <statusCode code="completed" /> <component> <observation moodCode="EVN" classCode="OBS"> <templateId root= "840.1.682306.08.03.22.4.2" /> <id nullFlavor="NA" /> < code codeSystem="local" code="HCT" displayName="HCT" /> <statusCode code="completed" /> <effectiveTime value="" /> < value unit="%" xsi:type="PQ" value="36.3" /> <interpretationCode codeSystem="local" code="*" /> <referenceRange> < observationRange> <text>37.0-47.0</text> </ observationRange> </referenceRange> </observation> </ component> <component> <observation moodCode="EVN" classCode="OBS"> <templateId root="2.16.840.1.774763.10.22.4.2" /> <id nullFlavor="NA" /> <code codeSystem="local" code="HGB" displayName="HGB " /> <statusCode code="completed" /> <effectiveTime value= "" /> <value unit="g/dL" xsi:type="PQ" value="11.8" /> <interpretationCode codeSystem="local" code="*" /> < referenceRange> <observationRange> <text>12.0-16.0</text > </observationRange> </referenceRange> </observation > </component> <component> <observation moodCode="EVN" classCode="OBS"> <templateId root="216.840.1.473594.102022.4.2" /> <id nullFlavor="NA" /> <code codeSystem="local" code="MCH" displayName="MCH" /> <statusCode code="completed" /> < effectiveTime value="" /> <value unit="pg" xsi:type="PQ" value="30.8" /> <referenceRange> <observationRange> <text>27.0-32.0</text> </observationRange> </ referenceRange> </observation> </component> <component> <observation moodCode="EVN" classCode="OBS"> <templateId root= "216.840.1.521143.1022.4.2" /> <id nullFlavor="NA" /> < code codeSystem="local" code="MCHC" displayName="MCHC" /> <statusCode code="completed" /> <effectiveTime value="" /> < value unit="g/dL" xsi:type="PQ" value="32.5" /> <referenceRange> <observationRange> <text>32.0-36.0</text> </ observationRange> </referenceRange> </observation> </ component> <component> <observation moodCode="EVN" classCode="OBS"> <templateId root="11.30.840.1.605379.10.4.2" /> <id nullFlavor="NA" /> <code codeSystem="local" code="MCV" displayName="MCV " /> <statusCode code="completed" /> <effectiveTime value= "" /> <value unit="fL" xsi:type="PQ" value="94.8" /> <referenceRange> <observationRange> <text>82.0-99.0< /text> </observationRange> </referenceRange> </ observation> </component> <component> <observation moodCode= "EVN" classCode="OBS"> <templateId root="216.840.1.273277.10.22.4.2 " /> <id nullFlavor="NA" /> <code codeSystem="local" code="MPV " displayName="MPV" /> <statusCode code="completed" /> < effectiveTime value="" /> <value unit="fL" xsi:type="PQ" value="10.5" /> <referenceRange> <observationRange> <text>9.4-12.4</text> </observationRange> </ referenceRange> </observation> </component> <component> <observation moodCode="EVN" classCode="OBS"> <templateId root= "11.30.840.1.346908.10.20.22.4.2" /> <id nullFlavor="NA" /> < code codeSystem="local" code="PLT" displayName="Platelet Count" /> < statusCode code="completed" /> <effectiveTime value="923037274264" /> <value unit="K/uL" xsi:type="PQ" value="184" /> < referenceRange> <observationRange> <text>150-400</text> </observationRange> </referenceRange> </observation > </component> <component> <observation moodCode="EVN" classCode="OBS"> <templateId root="840.1.634682.10..22.4.2" /> <id nullFlavor="NA" /> <code codeSystem="local" code="RBC" displayName="RBC" /> <statusCode code="completed" /> < effectiveTime value="[id number]" /> <value unit="10*6/uL" xsi:type= "PQ" value="3.83" /> <interpretationCode codeSystem="local" code="*" / > <referenceRange> <observationRange> <text> 4.00-5.20</text> </observationRange> </referenceRange> </observation> </component> <component> <observation moodCode="EVN" classCode="OBS"> <templateId root= "840.1.204366.10.20.22.4.2" /> <id nullFlavor="NA" /> < code codeSystem="local" code="RDW" displayName="RDW" /> <statusCode code="completed" /> <effectiveTime value="[id number]" /> < value unit="%" xsi:type="PQ" value="13.3" /> <referenceRange> <observationRange> <text>11.5-14.5</text> </ observationRange> </referenceRange> </observation> </ component> <component> <observation moodCode="EVN" classCode="OBS"> <templateId root="840.1.329124.1022.4.2" /> <id nullFlavor="NA" /> <code codeSystem="local" code="WBCIR" displayName= "WBC" /> <statusCode code="completed" /> <effectiveTime value= "[id number]" /> <value unit="K/uL" xsi:type="PQ" value="5.0" /> <referenceRange> <observationRange> <text>4.8-10.8< /text> </observationRange> </referenceRange> </ observation> </component> </organizer> </entry> <entry> <organizer moodCode="EVN" classCode="BATTERY"> <templateId root= "840.1.503057.22.4.1" /> <id nullFlavor="NA" /> <code codeSystem="local" code="CMP" displayName="Comprehensive Metabolic Panel (CMP)" /> <statusCode code="completed" /> <component> <observation moodCode="EVN" classCode="OBS"> <templateId root= "840.1.430304.22.4.2" /> <id nullFlavor="NA" /> < code codeSystem="local" code="ALB" displayName="Albumin" /> < statusCode code="completed" /> <effectiveTime value="[id number]" /> <value unit="g/dL" xsi:type="PQ" value="3.4" /> < interpretationCode codeSystem="local" code="*" /> <referenceRange> <observationRange> <text>3.5-4.8</text> </ observationRange> </referenceRange> </observation> </ component> <component> <observation moodCode="EVN" classCode="OBS"> <templateId root="16.840.1.421479.10..4.2" /> <id nullFlavor="NA" /> <code codeSystem="local" code="ALP" displayName= "Alkaline Phosphatase" /> <statusCode code="completed" /> < effectiveTime value="" /> <value unit="U/L" xsi:type="PQ" value="47" /> <referenceRange> <observationRange> <text>26-104</text> </observationRange> </referenceRange > </observation> </component> <component> <observation moodCode="EVN" classCode="OBS"> <templateId root= "11.30.840.1.982109.10...4.2" /> <id nullFlavor="NA" /> < code codeSystem="local" code="ALT" displayName="ALT (SGPT)" /> < statusCode code="completed" /> <effectiveTime value="[id number]" /> <value unit="U/L" xsi:type="PQ" value="24" /> <referenceRange > <observationRange> <text>14-54</text> </ observationRange> </referenceRange> </observation> </ component> <component> <observation moodCode="EVN" classCode="OBS"> <templateId root="11.30.840.1.301043..4.2" /> <id nullFlavor="NA" /> <code codeSystem="local" code="AGAP" displayName= "Anion Gap" /> <statusCode code="completed" /> <effectiveTime value="" /> <value unit="mEq/L" xsi:type="PQ" value="6" /> <referenceRange> <observationRange> <text>3-20 </text> </observationRange> </referenceRange> </ observation> </component> <component> <observation moodCode= "EVN" classCode="OBS"> <templateId root="2.16.840.1.630968.08.03.22.4.2 " /> <id nullFlavor="NA" /> <code codeSystem="local" code="AST " displayName="AST (SGOT)" /> <statusCode code="completed" /> <effectiveTime value="" /> <value unit="U/L" xsi:type="PQ" value="24" /> <referenceRange> <observationRange> <text>15-41</text> </observationRange> </referenceRange > </observation> </component> <component> <observation moodCode="EVN" classCode="OBS"> <templateId root= "2.16.840.1.046568.08.03.22.4.2" /> <id nullFlavor="NA" /> < code codeSystem="local" code="BILIT" displayName="Bilirubin Total" /> < statusCode code="completed" /> <effectiveTime value="" /> <value unit="mg/dL" xsi:type="PQ" value="0.6" /> < referenceRange> <observationRange> <text>0.2-1.2</text> </observationRange> </referenceRange> </observation > </component> <component> <observation moodCode="EVN" classCode="OBS"> <templateId root="16.840.1.223356.10.20.22.4.2" /> <id nullFlavor="NA" /> <code codeSystem="local" code="BUN" displayName="BUN" /> <statusCode code="completed" /> < effectiveTime value="" /> <value unit="mg/dL" xsi:type="PQ " value="8" /> <referenceRange> <observationRange> <text>4-20</text> </observationRange> </referenceRange > </observation> </component> <component> <observation moodCode="EVN" classCode="OBS"> <templateId root= "11.30.840.1.657027.102022.4.2" /> <id nullFlavor="NA" /> < code codeSystem="local" code="CA" displayName="Calcium" /> <statusCode code="completed" /> <effectiveTime value="" /> < value unit="mg/dL" xsi:type="PQ" value="8.3" /> <interpretationCode codeSystem="local" code="*" /> <referenceRange> < observationRange> <text>8.6-10.0</text> </ observationRange> </referenceRange> </observation> </ component> <component> <observation moodCode="EVN" classCode="OBS"> <templateId root="11.30.840.1.738758.10.2022.4.2" /> <id nullFlavor="NA" /> <code codeSystem="local" code="CL" displayName= "Chloride" /> <statusCode code="completed" /> <effectiveTime value="" /> <value unit="mEq/L" xsi:type="PQ" value="111" / > <interpretationCode codeSystem="local" code="*" /> < referenceRange> <observationRange> <text>99-109</text> </observationRange> </referenceRange> </observation> </component> <component> <observation moodCode="EVN" classCode ="OBS"> <templateId root="16.840.1.569611.10...4.2" /> < id nullFlavor="NA" /> <code codeSystem="local" code="CO2" displayName= "CO2" /> <statusCode code="completed" /> <effectiveTime value= "" /> <value unit="mEq/L" xsi:type="PQ" value="22" /> <referenceRange> <observationRange> <text>22-32</ text> </observationRange> </referenceRange> </ observation> </component> <component> <observation moodCode= "EVN" classCode="OBS"> <templateId root="11.30.840.1.857343.10.4.2 " /> <id nullFlavor="NA" /> <code codeSystem="local" code= "CREAT" displayName="Creatinine" /> <statusCode code="completed" /> <effectiveTime value="" /> <value unit="mg/dL" xsi: type="PQ" value="0.54" /> <referenceRange> <observationRange > <text>0.44-1.03</text> </observationRange> </ referenceRange> </observation> </component> <component> <observation moodCode="EVN" classCode="OBS"> <templateId root= "11.30.840.1.316711.10.2022.4.2" /> <id nullFlavor="NA" /> < code codeSystem="local" code="GLOB" displayName="Globulin" /> < statusCode code="completed" /> <effectiveTime value="" /> <value unit="g/dL" xsi:type="PQ" value="2.1" /> < referenceRange> <observationRange> <text>1.9-4.3</text> </observationRange> </referenceRange> </observation > </component> <component> <observation moodCode="EVN" classCode="OBS"> <templateId root="11.30.840.1.357716.22.4.2" /> <id nullFlavor="NA" /> <code codeSystem="local" code="GLU" displayName="Glucose" /> <statusCode code="completed" /> < effectiveTime value="" /> <value unit="mg/dL" xsi:type="PQ " value="83" /> <referenceRange> <observationRange> <text>70-100</text> </observationRange> </ referenceRange> </observation> </component> <component> <observation moodCode="EVN" classCode="OBS"> <templateId root= "840.1.325812.22.4.2" /> <id nullFlavor="NA" /> < code codeSystem="local" code="K" displayName="Potassium" /> < statusCode code="completed" /> <effectiveTime value="" /> <value unit="mEq/L" xsi:type="PQ" value="3.9" /> < referenceRange> <observationRange> <text>3.6-5.1</text> </observationRange> </referenceRange> </observation > </component> <component> <observation moodCode="EVN" classCode="OBS"> <templateId root="11.30.840.1.768324..2022.4.2" /> <id nullFlavor="NA" /> <code codeSystem="local" code="TP" displayName="Protein" /> <statusCode code="completed" /> < effectiveTime value="" /> <value unit="g/dL" xsi:type="PQ" value="5.5" /> <interpretationCode codeSystem="local" code="*" /> <referenceRange> <observationRange> <text>6.1-7.9</ text> </observationRange> </referenceRange> </ observation> </component> <component> <observation moodCode= "EVN" classCode="OBS"> <templateId root="840.1.283605.08.03.22.4.2 " /> <id nullFlavor="NA" /> <code codeSystem="local" code="NA " displayName="Sodium" /> <statusCode code="completed" /> < effectiveTime value="" /> <value unit="mEq/L" xsi:type="PQ " value="139" /> <referenceRange> <observationRange> <text>136-144</text> </observationRange> </ referenceRange> </observation> </component> </organizer> </entry > <entry> <organizer moodCode="EVN" classCode="BATTERY"> <templateId root="840.1.417595.08.03.22.4.1" /> <id nullFlavor="NA" /> <code codeSystem="local" code="GFR" displayName="eGFR" /> <statusCode code= "completed" /> <component> <observation moodCode="EVN" classCode= "OBS"> <templateId root="11.30.840.1.536431.22.4.2" /> < id nullFlavor="NA" /> <code codeSystem="local" code="GFR" displayName= "eGFR" /> <statusCode code="completed" /> <effectiveTime value ="112321300590" /> <value unit="mL/min" xsi:type="PQ" value=">60" / > <referenceRange> <observationRange> <text>&gt ;60</text> </observationRange> </referenceRange> </ observation> </component> </organizer> </entry> <entry> <organizer moodCode="EVN" classCode="BATTERY"> <templateId root= "216.840.1.702903.10...4.1" /> <id nullFlavor="NA" /> <code codeSystem="local" code="TSHR" displayName="TSH with Reflex Free T4" /> < statusCode code="completed" /> <component> <observation moodCode= "EVN" classCode="OBS"> <templateId root="216.840.1.298097.10...4.2 " /> <id nullFlavor="NA" /> <code codeSystem="local" code= "TSHR" displayName="TSH with Reflex Free T4" /> <statusCode code= "completed" /> <effectiveTime value="212184439220" /> <value unit="uIU/mL" xsi:type="PQ" value="1.17" /> <referenceRange> <observationRange> <text>0.35-4.94</text> </ observationRange> </referenceRange> </observation> </ component> </organizer> </entry> <entry> <organizer moodCode="EVN" classCode="BATTERY"> <templateId root="216.840.1.714161.10..4.1" /> <id nullFlavor="NA" /> <code codeSystem="local" code="UA" displayName= "Urinalysis with reflex microscopic" /> <statusCode code="completed" /> <component> <observation moodCode="EVN" classCode="OBS"> < templateId root="216.840.1.402263.10.4.2" /> <id nullFlavor="NA " /> <code codeSystem="local" code="UAPP" displayName="Appearance" /> <statusCode code="completed" /> <effectiveTime value= "" /> <value unit="NA" xsi:type="PQ" value="Sl Cloudy" /> <referenceRange> <observationRange> <text /> </observationRange> </referenceRange> </observation> </component> <component> <observation moodCode="EVN" classCode= "OBS"> <templateId root="16.840.1.398748.08.03.22.4.2" /> < id nullFlavor="NA" /> <code codeSystem="local" code="UBIL" displayName= "Bilirubin" /> <statusCode code="completed" /> <effectiveTime value="" /> <value unit="NA" xsi:type="PQ" value="Negative " /> <referenceRange> <observationRange> <text> Negative</text> </observationRange> </referenceRange> </observation> </component> <component> <observation moodCode ="EVN" classCode="OBS"> <templateId root= "11.30.840.1.970178.08.03.22.4.2" /> <id nullFlavor="NA" /> < code codeSystem="local" code="UBLD" displayName="Blood" /> <statusCode code="completed" /> <effectiveTime value="" /> < value unit="NA" xsi:type="PQ" value="Pos 3+" /> <interpretationCode codeSystem="local" code="*" /> <referenceRange> < observationRange> <text>Negative</text> </ observationRange> </referenceRange> </observation> </ component> <component> <observation moodCode="EVN" classCode="OBS"> <templateId root="11.30.840.1.476393.10.4.2" /> <id nullFlavor="NA" /> <code codeSystem="local" code="UCOLR" displayName= "Color" /> <statusCode code="completed" /> <effectiveTime value="" /> <value unit="NA" xsi:type="PQ" value="Aliza" / > <interpretationCode codeSystem="local" code="*" /> < referenceRange> <observationRange> <text /> < /observationRange> </referenceRange> </observation> </ component> <component> <observation moodCode="EVN" classCode="OBS"> <templateId root="11.30.840.1.839047.08.03.22.4.2" /> <id nullFlavor="NA" /> <code codeSystem="local" code="UGLU" displayName= "Glucose, Urine" /> <statusCode code="completed" /> < effectiveTime value="" /> <value unit="" xsi:type="PQ" value="Negative" /> <referenceRange> <observationRange> <text>Negative</text> </observationRange> </ referenceRange> </observation> </component> <component> <observation moodCode="EVN" classCode="OBS"> <templateId root= "11.30.840.1.649828.08.03.224.2" /> <id nullFlavor="NA" /> < code codeSystem="local" code="UKET" displayName="Ketones" /> < statusCode code="completed" /> <effectiveTime value="" /> <value unit="" xsi:type="PQ" value="Negative" /> < referenceRange> <observationRange> <text>Negative</text > </observationRange> </referenceRange> </observation > </component> <component> <observation moodCode="EVN" classCode="OBS"> <templateId root="16.840.1.669497.10.4.2" /> <id nullFlavor="NA" /> <code codeSystem="local" code="ULEU" displayName="Leukocyte Esterase" /> <statusCode code="completed" /> <effectiveTime value="" /> <value unit="NA" xsi:type ="PQ" value="Negative" /> <referenceRange> <observationRange > <text>Negative</text> </observationRange> </ referenceRange> </observation> </component> <component> <observation moodCode="EVN" classCode="OBS"> <templateId root= "840.1.316076.08.03.22.4.2" /> <id nullFlavor="NA" /> < code codeSystem="local" code="UNIT" displayName="Nitrites" /> < statusCode code="completed" /> <effectiveTime value="" /> <value unit="NA" xsi:type="PQ" value="Negative" /> < referenceRange> <observationRange> <text>Negative</text > </observationRange> </referenceRange> </observation > </component> <component> <observation moodCode="EVN" classCode="OBS"> <templateId root="11.30.840.1.382241.08.03.22.4.2" /> <id nullFlavor="NA" /> <code codeSystem="local" code="UPH" displayName="pH" /> <statusCode code="completed" /> < effectiveTime value="" /> <value unit="NA" xsi:type="PQ" value="5.0" /> <referenceRange> <observationRange> <text>5.0-8.0</text> </observationRange> </ referenceRange> </observation> </component> <component> <observation moodCode="EVN" classCode="OBS"> <templateId root= "16.840.1.563770.08.03.22.4.2" /> <id nullFlavor="NA" /> < code codeSystem="local" code="UPRO" displayName="Protein" /> < statusCode code="completed" /> <effectiveTime value="" /> <value unit="NA" xsi:type="PQ" value="Negative" /> < referenceRange> <observationRange> <text>Negative</text > </observationRange> </referenceRange> </observation > </component> <component> <observation moodCode="EVN" classCode="OBS"> <templateId root="16.840.1.682031.08.03.22.4.2" /> <id nullFlavor="NA" /> <code codeSystem="local" code="USPG" displayName="Specific [place]" /> <statusCode code="completed" /> <effectiveTime value="" /> <value unit="NA" xsi:type= "PQ" value="1.025" /> <referenceRange> <observationRange> <text>1.003-1.030</text> </observationRange> </ referenceRange> </observation> </component> <component> <observation moodCode="EVN" classCode="OBS"> <templateId root= "16.840.1.878791.08.03.22.4.2" /> <id nullFlavor="NA" /> < code codeSystem="local" code="UTYP" displayName="UA Collection type" /> <statusCode code="completed" /> <effectiveTime value="715221685628" / > <value unit="NA" xsi:type="PQ" value="Clean Catch" /> < referenceRange> <observationRange> <text /> < /observationRange> </referenceRange> </observation> </ component> <component> <observation moodCode="EVN" classCode="OBS"> <templateId root="11.30.840.1.405019.08.03.22.4.2" /> <id nullFlavor="NA" /> <code codeSystem="local" code="UURO" displayName= "Urobilinogen" /> <statusCode code="completed" /> < effectiveTime value="263473340726" /> <value unit="mg/dL" xsi:type="PQ " value="2.0" /> <interpretationCode codeSystem="local" code="*" /> <referenceRange> <observationRange> <text><1.0 </text> </observationRange> </referenceRange> </ observation> </component> </organizer> </entry> <entry> <organizer moodCode="EVN" classCode="BATTERY"> <templateId root= "840.1.181729.08.03.22.4.1" /> <id nullFlavor="NA" /> <code codeSystem="local" code="UMIC" displayName="Urine Microscopic" /> < statusCode code="completed" /> <component> <observation moodCode= "EVN" classCode="OBS"> <templateId root="840.1.737295.22.4.2 " /> <id nullFlavor="NA" /> <code codeSystem="local" code= "UBAC" displayName="Bacteria" /> <statusCode code="completed" /> <effectiveTime value="" /> <value unit="NA" xsi:type= "PQ" value="Rare" /> <referenceRange> <observationRange> <text /> </observationRange> </referenceRange> </observation> </component> <component> <observation moodCode="EVN" classCode="OBS"> <templateId root= "11.30.840.1.749444.08.03.22.4.2" /> <id nullFlavor="NA" /> < code codeSystem="local" code="UCRY1" displayName="Crystals" /> < statusCode code="completed" /> <effectiveTime value="" /> <value unit="NA" xsi:type="PQ" value="Ca Ox" /> < referenceRange> <observationRange> <text /> < /observationRange> </referenceRange> </observation> </ component> <component> <observation moodCode="EVN" classCode="OBS"> <templateId root="840.1.818210.08.03.22.4.2" /> <id nullFlavor="NA" /> <code codeSystem="local" code="UEPI" displayName= "Epithelial Cells" /> <statusCode code="completed" /> < effectiveTime value="" /> <value unit="/HPF" xsi:type="PQ" value="0" /> <referenceRange> <observationRange> <text /> </observationRange> </referenceRange> </ observation> </component> <component> <observation moodCode= "EVN" classCode="OBS"> <templateId root="11.30.840.1.891913.08.03.22.4.2 " /> <id nullFlavor="NA" /> <code codeSystem="local" code= "URBC" displayName="RBC, Urine" /> <statusCode code="completed" /> <effectiveTime value="" /> <value unit="/HPF" xsi: type="PQ" value="0" /> <referenceRange> <observationRange> <text>0-2</text> </observationRange> </ referenceRange> </observation> </component> <component> <observation moodCode="EVN" classCode="OBS"> <templateId root= "216.840.1.440920.10..4.2" /> <id nullFlavor="NA" /> < code codeSystem="local" code="UMUC" displayName="Urine Mucus" /> < statusCode code="completed" /> <effectiveTime value="" /> <value unit="NA" xsi:type="PQ" value="Present" /> < referenceRange> <observationRange> <text /> < /observationRange> </referenceRange> </observation> </ component> <component> <observation moodCode="EVN" classCode="OBS"> <templateId root="216.840.1.685799.10..4.2" /> <id nullFlavor="NA" /> <code codeSystem="local" code="UWBC" displayName= "WBC, Urine" /> <statusCode code="completed" /> < effectiveTime value="" /> <value unit="/HPF" xsi:type="PQ" value="2" /> <referenceRange> <observationRange> <text>0-4</text> </observationRange> </referenceRange> </observation> </component> </organizer> </entry> <entry> < organizer moodCode="EVN" classCode="BATTERY"> <templateId root= "216.840.1.117613.10..4.1" /> <id nullFlavor="NA" /> <code codeSystem="local" code="UDRGH" displayName="Urine Drug Screen" /> < statusCode code="completed" /> <component> <observation moodCode= "EVN" classCode="OBS"> <templateId root="2.16.840.1.036017.10..22.4.2 " /> <id nullFlavor="NA" /> <code codeSystem="local" code= "UTCA1" displayName="Tricyclics" /> <statusCode code="completed" /> <effectiveTime value="422018815730" /> <value unit="NA" xsi:type ="PQ" value="Negative" /> <referenceRange> <observationRange > <text /> </observationRange> </referenceRange > </observation> </component> </organizer> </entry> <entry> <organizer moodCode="EVN" classCode="BATTERY"> <templateId root= "2.16.840.1.705465.10..22.4.1" /> <id nullFlavor="NA" /> <code codeSystem="local" code="PREGN" displayName=" Screen, Urine NPT" /> <statusCode code="completed" /> <component> <observation moodCode ="EVN" classCode="OBS"> <templateId root= "216.840.1.385871.10..22.4.2" /> <id nullFlavor="NA" /> < code codeSystem="local" code="PREGN" displayName=" Screen, Urine NPT" / > <statusCode code="completed" /> <effectiveTime value= "001326637234" /> <value unit="NA" xsi:type="PQ" value="Negative" /> <referenceRange> <observationRange> <text /> </observationRange> </referenceRange> </observation> </component> </organizer> </entry> <entry> <organizer moodCode="EVN " classCode="BATTERY"> <templateId root="2.16.840.1.166538.10..22.4.1" / > <id nullFlavor="NA" /> <code codeSystem="local" code="CBCWD" displayName="CBC With Platelet and Differential" /> <statusCode code= "completed" /> <component> <observation moodCode="EVN" classCode= "OBS"> <templateId root="2.16.840.1.595824.10..22.4.2" /> < id nullFlavor="NA" /> <code codeSystem="local" code="ABASR" displayName ="Absolute Basophils" /> <statusCode code="completed" /> < effectiveTime value="687386019907" /> <value unit="10*3/uL" xsi:type= "PQ" value="0.04" /> <referenceRange> <observationRange> <text>0.00-0.20</text> </observationRange> </ referenceRange> </observation> </component> <component> <observation moodCode="EVN" classCode="OBS"> <templateId root= "2.16.840.1.997806.10..22.4.2" /> <id nullFlavor="NA" /> < code codeSystem="local" code="AEOSR" displayName="Absolute Eosinophils" /> <statusCode code="completed" /> <effectiveTime value="537104113645 " /> <value unit="10*3/uL" xsi:type="PQ" value="0.32" /> < referenceRange> <observationRange> <text>0.00-0.50</text > </observationRange> </referenceRange> </observation > </component> <component> <observation moodCode="EVN" classCode="OBS"> <templateId root="216.840.1.702356.10.20.22.4.2" /> <id nullFlavor="NA" /> <code codeSystem="local" code="ALYMR" displayName="Absolute Lymphocytes" /> <statusCode code="completed" /> <effectiveTime value="" /> <value unit="10*3/uL" xsi:type="PQ" value="1.20" /> <referenceRange> < observationRange> <text>0.80-3.30</text> </ observationRange> </referenceRange> </observation> </ component> <component> <observation moodCode="EVN" classCode="OBS"> <templateId root="11.30.840.1.049316...4.2" /> <id nullFlavor="NA" /> <code codeSystem="local" code="AMONR" displayName= "Absolute Monocytes" /> <statusCode code="completed" /> < effectiveTime value="" /> <value unit="10*3/uL" xsi:type= "PQ" value="0.36" /> <referenceRange> <observationRange> <text>0.30-1.00</text> </observationRange> </ referenceRange> </observation> </component> <component> <observation moodCode="EVN" classCode="OBS"> <templateId root= "11.30.840.1.288460.10.20.22.4.2" /> <id nullFlavor="NA" /> < code codeSystem="local" code="ASEGR" displayName="Absolute Neutrophils" /> <statusCode code="completed" /> <effectiveTime value="081375628987 " /> <value unit="10*3/uL" xsi:type="PQ" value="2.23" /> < referenceRange> <observationRange> <text>1.90-7.00</text > </observationRange> </referenceRange> </observation > </component> <component> <observation moodCode="EVN" classCode="OBS"> <templateId root="216.840.1.522443.10.22.4.2" /> <id nullFlavor="NA" /> <code codeSystem="local" code="BASOR" displayName="Basophils" /> <statusCode code="completed" /> < effectiveTime value="195310638839" /> <value unit="%" xsi:type="PQ " value="1" /> <referenceRange> <observationRange> <text>0-2</text> </observationRange> </referenceRange> </observation> </component> <component> <observation moodCode="EVN" classCode="OBS"> <templateId root= "11.30.840.1.612949.08.03.22.4.2" /> <id nullFlavor="NA" /> < code codeSystem="local" code="EOSR" displayName="Eosinophils" /> < statusCode code="completed" /> <effectiveTime value="240391497788" /> <value unit="%" xsi:type="PQ" value="8" /> < interpretationCode codeSystem="local" code="*" /> <referenceRange> <observationRange> <text>0-4</text> </ observationRange> </referenceRange> </observation> </ component> <component> <observation moodCode="EVN" classCode="OBS"> <templateId root="11.30.840.1.677866.10.4.2" /> <id nullFlavor="NA" /> <code codeSystem="local" code="HCT" displayName="HCT " /> <statusCode code="completed" /> <effectiveTime value= "541700911283" /> <value unit="%" xsi:type="PQ" value="37.0" /> <referenceRange> <observationRange> <text>37.0- 47.0</text> </observationRange> </referenceRange> </ observation> </component> <component> <observation moodCode= "EVN" classCode="OBS"> <templateId root="2.16.840.1.752084.10..4.2 " /> <id nullFlavor="NA" /> <code codeSystem="local" code="HGB " displayName="HGB" /> <statusCode code="completed" /> < effectiveTime value="655531915578" /> <value unit="g/dL" xsi:type="PQ" value="12.1" /> <referenceRange> <observationRange> <text>12.0-16.0</text> </observationRange> </ referenceRange> </observation> </component> <component> <observation moodCode="EVN" classCode="OBS"> <templateId root= "216.840.1.126505.10..4.2" /> <id nullFlavor="NA" /> < code codeSystem="local" code="IMGA" displayName="Immature Granulocytes" /> <statusCode code="completed" /> <effectiveTime value="867335684175 " /> <value unit="%" xsi:type="PQ" value="0.2" /> < referenceRange> <observationRange> <text>0.0-1.0</text> </observationRange> </referenceRange> </observation > </component> <component> <observation moodCode="EVN" classCode="OBS"> <templateId root="2.16.840.1.243426.10.22.4.2" /> <id nullFlavor="NA" /> <code codeSystem="local" code="LYMPR" displayName="Lymphocytes" /> <statusCode code="completed" /> < effectiveTime value="603927103704" /> <value unit="%" xsi:type="PQ " value="29" /> <referenceRange> <observationRange> <text>20-46</text> </observationRange> </ referenceRange> </observation> </component> <component> <observation moodCode="EVN" classCode="OBS"> <templateId root= "2.16.840.1.851624.10..22.4.2" /> <id nullFlavor="NA" /> < code codeSystem="local" code="MCH" displayName="MCH" /> <statusCode code="completed" /> <effectiveTime value="" /> < value unit="pg" xsi:type="PQ" value="30.6" /> <referenceRange> <observationRange> <text>27.0-32.0</text> </ observationRange> </referenceRange> </observation> </ component> <component> <observation moodCode="EVN" classCode="OBS"> <templateId root="2.16.840.1.488004.10..22.4.2" /> <id nullFlavor="NA" /> <code codeSystem="local" code="MCHC" displayName= "MCHC" /> <statusCode code="completed" /> <effectiveTime value ="487996929200" /> <value unit="g/dL" xsi:type="PQ" value="32.7" /> <referenceRange> <observationRange> <text>32.0- 36.0</text> </observationRange> </referenceRange> </ observation> </component> <component> <observation moodCode= "EVN" classCode="OBS"> <templateId root="11.30.840.1.604825.10.22.4.2 " /> <id nullFlavor="NA" /> <code codeSystem="local" code="MCV " displayName="MCV" /> <statusCode code="completed" /> < effectiveTime value="243948742511" /> <value unit="fL" xsi:type="PQ" value="93.4" /> <referenceRange> <observationRange> <text>82.0-99.0</text> </observationRange> </ referenceRange> </observation> </component> <component> <observation moodCode="EVN" classCode="OBS"> <templateId root= "11.30.840.1.603423.08.03.22.4.2" /> <id nullFlavor="NA" /> < code codeSystem="local" code="MONOR" displayName="Monocytes" /> < statusCode code="completed" /> <effectiveTime value="811418531224" /> <value unit="%" xsi:type="PQ" value="9" /> <referenceRange > <observationRange> <text>4-11</text> </ observationRange> </referenceRange> </observation> </ component> <component> <observation moodCode="EVN" classCode="OBS"> <templateId root="11.30.840.1.274877.102022.4.2" /> <id nullFlavor="NA" /> <code codeSystem="local" code="MPV" displayName="MPV " /> <statusCode code="completed" /> <effectiveTime value= "226119544986" /> <value unit="fL" xsi:type="PQ" value="10.1" /> <referenceRange> <observationRange> <text>9.4-12.4</ text> </observationRange> </referenceRange> </ observation> </component> <component> <observation moodCode= "EVN" classCode="OBS"> <templateId root="216.840.1.473016.10.4.2 " /> <id nullFlavor="NA" /> <code codeSystem="local" code= "SEGR" displayName="Neutrophils" /> <statusCode code="completed" /> <effectiveTime value="" /> <value unit="%" xsi: type="PQ" value="54" /> <referenceRange> <observationRange> <text>51-75</text> </observationRange> </ referenceRange> </observation> </component> <component> <observation moodCode="EVN" classCode="OBS"> <templateId root= "11.30.840.1.540023.08.03.22.4.2" /> <id nullFlavor="NA" /> < code codeSystem="local" code="NRBCA" displayName="Nucleated RBC Automated" /> <statusCode code="completed" /> <effectiveTime value= "" /> <value unit="/100WBC" xsi:type="PQ" value="0.0" /> <referenceRange> <observationRange> <text /> </observationRange> </referenceRange> </observation> </component> <component> <observation moodCode="EVN" classCode= "OBS"> <templateId root="11.30.840.1.578062.10..4.2" /> < id nullFlavor="NA" /> <code codeSystem="local" code="PLT" displayName= "Platelet Count" /> <statusCode code="completed" /> < effectiveTime value="" /> <value unit="K/uL" xsi:type="PQ" value="192" /> <referenceRange> <observationRange> <text>150-400</text> </observationRange> </ referenceRange> </observation> </component> <component> <observation moodCode="EVN" classCode="OBS"> <templateId root= "16.840.1.030880.10.20.22.4.2" /> <id nullFlavor="NA" /> < code codeSystem="local" code="RBC" displayName="RBC" /> <statusCode code="completed" /> <effectiveTime value="920136285013" /> < value unit="10*6/uL" xsi:type="PQ" value="3.96" /> <interpretationCode codeSystem="local" code="*" /> <referenceRange> < observationRange> <text>4.00-5.20</text> </ observationRange> </referenceRange> </observation> </ component> <component> <observation moodCode="EVN" classCode="OBS"> <templateId root="840.1.856946.1022.4.2" /> <id nullFlavor="NA" /> <code codeSystem="local" code="RDW" displayName="RDW " /> <statusCode code="completed" /> <effectiveTime value= "269433976230" /> <value unit="%" xsi:type="PQ" value="13.3" /> <referenceRange> <observationRange> <text>11.5- 14.5</text> </observationRange> </referenceRange> </ observation> </component> <component> <observation moodCode= "EVN" classCode="OBS"> <templateId root="11.30.840.1.786621.10.20.22.4.2 " /> <id nullFlavor="NA" /> <code codeSystem="local" code= "WBCIR" displayName="WBC" /> <statusCode code="completed" /> < effectiveTime value="344055324739" /> <value unit="K/uL" xsi:type="PQ" value="4.2" /> <interpretationCode codeSystem="local" code="*" /> <referenceRange> <observationRange> <text>4.8-10.8< /text> </observationRange> </referenceRange> </ observation> </component> </organizer> </entry> <entry> <organizer moodCode="EVN" classCode="BATTERY"> <templateId root= "216.840.1.991527.10..22.4.1" /> <id nullFlavor="NA" /> <code codeSystem="local" code="CMP" displayName="Comprehensive Metabolic Panel (CMP)" /> <statusCode code="completed" /> <component> <observation moodCode="EVN" classCode="OBS"> <templateId root= "16.840.1.345980.10..22.4.2" /> <id nullFlavor="NA" /> < code codeSystem="local" code="ALB" displayName="Albumin" /> < statusCode code="completed" /> <effectiveTime value="247972256684" /> <value unit="g/dL" xsi:type="PQ" value="3.5" /> < referenceRange> <observationRange> <text>3.5-4.8</text> </observationRange> </referenceRange> </observation > </component> <component> <observation moodCode="EVN" classCode="OBS"> <templateId root="11.30.840.1.947660.10.20.22.4.2" /> <id nullFlavor="NA" /> <code codeSystem="local" code="ALP" displayName="Alkaline Phosphatase" /> <statusCode code="completed" /> <effectiveTime value="012655198343" /> <value unit="U/L" xsi: type="PQ" value="64" /> <referenceRange> <observationRange> <text>26-104</text> </observationRange> </ referenceRange> </observation> </component> <component> <observation moodCode="EVN" classCode="OBS"> <templateId root= "16.840.1.651762.08.03.22.4.2" /> <id nullFlavor="NA" /> < code codeSystem="local" code="ALT" displayName="ALT (SGPT)" /> < statusCode code="completed" /> <effectiveTime value="681577374495" /> <value unit="U/L" xsi:type="PQ" value="209" /> < interpretationCode codeSystem="local" code="*" /> <referenceRange> <observationRange> <text>14-54</text> </ observationRange> </referenceRange> </observation> </ component> <component> <observation moodCode="EVN" classCode="OBS"> <templateId root="16.840.1.345131.22.4.2" /> <id nullFlavor="NA" /> <code codeSystem="local" code="AGAP" displayName= "Anion Gap" /> <statusCode code="completed" /> <effectiveTime value="743920227000" /> <value unit="mEq/L" xsi:type="PQ" value="8" /> <referenceRange> <observationRange> <text>3-20 </text> </observationRange> </referenceRange> </ observation> </component> <component> <observation moodCode= "EVN" classCode="OBS"> <templateId root="11.30.840.1.886898.08.03.22.4.2 " /> <id nullFlavor="NA" /> <code codeSystem="local" code="AST " displayName="AST (SGOT)" /> <statusCode code="completed" /> <effectiveTime value="267074401815" /> <value unit="U/L" xsi:type="PQ" value="155" /> <interpretationCode codeSystem="local" code="*" /> <referenceRange> <observationRange> <text>15-41</ text> </observationRange> </referenceRange> </ observation> </component> <component> <observation moodCode= "EVN" classCode="OBS"> <templateId root="216.840.1.754264.08.03.22.4.2 " /> <id nullFlavor="NA" /> <code codeSystem="local" code= "BILIT" displayName="Bilirubin Total" /> <statusCode code="completed" / > <effectiveTime value="450349254954" /> <value unit="mg/dL" xsi:type="PQ" value="0.5" /> <referenceRange> < observationRange> <text>0.2-1.2</text> </ observationRange> </referenceRange> </observation> </ component> <component> <observation moodCode="EVN" classCode="OBS"> <templateId root="11.30.840.1.553353.08.03.22.4.2" /> <id nullFlavor="NA" /> <code codeSystem="local" code="BUN" displayName="BUN " /> <statusCode code="completed" /> <effectiveTime value= "417398465751" /> <value unit="mg/dL" xsi:type="PQ" value="8" /> <referenceRange> <observationRange> <text>4-20</text > </observationRange> </referenceRange> </observation > </component> <component> <observation moodCode="EVN" classCode="OBS"> <templateId root="16.840.1.020531.1022.4.2" /> <id nullFlavor="NA" /> <code codeSystem="local" code="CA" displayName="Calcium" /> <statusCode code="completed" /> < effectiveTime value="607399706256" /> <value unit="mg/dL" xsi:type="PQ " value="8.8" /> <referenceRange> <observationRange> <text>8.6-10.0</text> </observationRange> </ referenceRange> </observation> </component> <component> <observation moodCode="EVN" classCode="OBS"> <templateId root= "11.30.840.1.895259.08.03.22.4.2" /> <id nullFlavor="NA" /> < code codeSystem="local" code="CL" displayName="Chloride" /> < statusCode code="completed" /> <effectiveTime value="295280656003" /> <value unit="mEq/L" xsi:type="PQ" value="108" /> < referenceRange> <observationRange> <text>99-109</text> </observationRange> </referenceRange> </observation> </component> <component> <observation moodCode="EVN" classCode ="OBS"> <templateId root="11.30.840.1.817813.1022.4.2" /> < id nullFlavor="NA" /> <code codeSystem="local" code="CO2" displayName= "CO2" /> <statusCode code="completed" /> <effectiveTime value= "862553194360" /> <value unit="mEq/L" xsi:type="PQ" value="24" /> <referenceRange> <observationRange> <text>22-32</ text> </observationRange> </referenceRange> </ observation> </component> <component> <observation moodCode= "EVN" classCode="OBS"> <templateId root="16.840.1.421899.10..4.2 " /> <id nullFlavor="NA" /> <code codeSystem="local" code= "CREAT" displayName="Creatinine" /> <statusCode code="completed" /> <effectiveTime value="337633866846" /> <value unit="mg/dL" xsi: type="PQ" value="0.77" /> <referenceRange> <observationRange > <text>0.44-1.03</text> </observationRange> </ referenceRange> </observation> </component> <component> <observation moodCode="EVN" classCode="OBS"> <templateId root= "11.30.840.1.531564.10..4.2" /> <id nullFlavor="NA" /> < code codeSystem="local" code="GLOB" displayName="Globulin" /> < statusCode code="completed" /> <effectiveTime value="004778298708" /> <value unit="g/dL" xsi:type="PQ" value="2.3" /> < referenceRange> <observationRange> <text>1.9-4.3</text> </observationRange> </referenceRange> </observation > </component> <component> <observation moodCode="EVN" classCode="OBS"> <templateId root="11.30.840.1.901120.10..4.2" /> <id nullFlavor="NA" /> <code codeSystem="local" code="GLU" displayName="Glucose" /> <statusCode code="completed" /> < effectiveTime value="389574431852" /> <value unit="mg/dL" xsi:type="PQ " value="111" /> <interpretationCode codeSystem="local" code="*" /> <referenceRange> <observationRange> <text>70-100< /text> </observationRange> </referenceRange> </ observation> </component> <component> <observation moodCode= "EVN" classCode="OBS"> <templateId root="16.840.1.334663.10.22.4.2 " /> <id nullFlavor="NA" /> <code codeSystem="local" code="K" displayName="Potassium" /> <statusCode code="completed" /> < effectiveTime value="220987025722" /> <value unit="mEq/L" xsi:type="PQ " value="3.5" /> <interpretationCode codeSystem="local" code="*" /> <referenceRange> <observationRange> <text>3.6-5.1 </text> </observationRange> </referenceRange> </ observation> </component> <component> <observation moodCode= "EVN" classCode="OBS"> <templateId root="16.840.1.570676.10..22.4.2 " /> <id nullFlavor="NA" /> <code codeSystem="local" code="TP " displayName="Protein" /> <statusCode code="completed" /> < effectiveTime value="734854697625" /> <value unit="g/dL" xsi:type="PQ" value="5.8" /> <interpretationCode codeSystem="local" code="*" /> <referenceRange> <observationRange> <text>6.1-7.9</ text> </observationRange> </referenceRange> </ observation> </component> <component> <observation moodCode= "EVN" classCode="OBS"> <templateId root="11.30.840.1.873705.10..22.4.2 " /> <id nullFlavor="NA" /> <code codeSystem="local" code="NA " displayName="Sodium" /> <statusCode code="completed" /> < effectiveTime value="454041645175" /> <value unit="mEq/L" xsi:type="PQ " value="140" /> <referenceRange> <observationRange> <text>136-144</text> </observationRange> </ referenceRange> </observation> </component> </organizer> </entry > <entry> <organizer moodCode="EVN" classCode="BATTERY"> <templateId root="11.30.840.1.260577.10.22.4.1" /> <id nullFlavor="NA" /> <code codeSystem="local" code="ALC" displayName="Alcohol, Blood" /> <statusCode code="completed" /> <component> <observation moodCode="EVN" classCode="OBS"> <templateId root="16.840.1.945207.10..4.2" /> <id nullFlavor="NA" /> <code codeSystem="local" code="ALC" displayName="Alcohol, Blood" /> <statusCode code="completed" /> <effectiveTime value="253293477003" /> <value unit="mg/dL" xsi:type= "PQ" value="Not Detected" /> <referenceRange> < observationRange> <text /> </observationRange> </referenceRange> </observation> </component> </organizer> </ entry> <entry> <organizer moodCode="EVN" classCode="BATTERY"> < templateId root="16.840.1.517144...4.1" /> <id nullFlavor="NA" /> <code codeSystem="local" code="GFR" displayName="eGFR" /> < statusCode code="completed" /> <component> <observation moodCode= "EVN" classCode="OBS"> <templateId root="16.840.1.380915.10.4.2 " /> <id nullFlavor="NA" /> <code codeSystem="local" code="GFR " displayName="eGFR" /> <statusCode code="completed" /> < effectiveTime value="722475471735" /> <value unit="mL/min" xsi:type="PQ " value=">60" /> <referenceRange> <observationRange> <text>>60</text> </observationRange> </ referenceRange> </observation> </component> </organizer> </entry > <entry> <organizer moodCode="EVN" classCode="BATTERY"> <templateId root="11.30.840.1.038513.10.4.1" /> <id nullFlavor="NA" /> <code codeSystem="local" code="ACETM" displayName="Acetaminophen" /> <statusCode code="completed" /> <component> <observation moodCode="EVN" classCode="OBS"> <templateId root="11.30.840.1.371599.10.4.2" /> <id nullFlavor="NA" /> <code codeSystem="local" code="ACETM" displayName="Acetaminophen" /> <statusCode code="completed" /> <effectiveTime value="065129969786" /> <value unit="mcg/mL" xsi:type= "PQ" value="<10" /> <referenceRange> <observationRange> <text>10-30</text> </observationRange> </ referenceRange> </observation> </component> </organizer> </entry > <entry> <organizer moodCode="EVN" classCode="BATTERY"> <templateId root="840.1.302975.10..4.1" /> <id nullFlavor="NA" /> <code codeSystem="local" code="SALIC" displayName="Salicylate" /> <statusCode code="completed" /> <component> <observation moodCode="EVN" classCode="OBS"> <templateId root="840.1.077098.08.03.22.4.2" /> <id nullFlavor="NA" /> <code codeSystem="local" code="SALIC" displayName="Salicylate" /> <statusCode code="completed" /> < effectiveTime value="740818653385" /> <value unit="mg/dL" xsi:type="PQ " value="<4" /> <referenceRange> <observationRange> <text>0-30</text> </observationRange> </ referenceRange> </observation> </component> </organizer> </entry > <entry> <organizer moodCode="EVN" classCode="BATTERY"> <templateId root="840.1.272757.08.03.22.4.1" /> <id nullFlavor="NA" /> <code codeSystem="local" code="TSHR" displayName="TSH with Reflex Free T4" /> < statusCode code="completed" /> <component> <observation moodCode= "EVN" classCode="OBS"> <templateId root="11.30.840.1.303550.08.03.22.4.2 " /> <id nullFlavor="NA" /> <code codeSystem="local" code= "TSHR" displayName="TSH with Reflex Free T4" /> <statusCode code= "completed" /> <effectiveTime value="855691590716" /> <value unit="uIU/mL" xsi:type="PQ" value="0.55" /> <referenceRange> <observationRange> <text>0.35-4.94</text> </ observationRange> </referenceRange> </observation> </ component> </organizer> </entry> <entry> <organizer moodCode="EVN" classCode="BATTERY"> <templateId root="216.840.1.327250.10.20.22.4.1" /> <id nullFlavor="NA" /> <code codeSystem="local" code="CPK" displayName ="Creatine Kinase (CPK)" /> <statusCode code="completed" /> <component > <observation moodCode="EVN" classCode="OBS"> <templateId root= "2.16.840.1.307725.10..22.4.2" /> <id nullFlavor="NA" /> < code codeSystem="local" code="CPK" displayName="Creatine Kinase (CPK)" /> <statusCode code="completed" /> <effectiveTime value="430119913676 " /> <value unit="U/L" xsi:type="PQ" value="74" /> < referenceRange> <observationRange> <text>38-234</text> </observationRange> </referenceRange> </observation> </component> </organizer> </entry> <entry> <organizer moodCode= "EVN" classCode="BATTERY"> <templateId root="216.840.1.470259.10.20.22.4.1 " /> <id nullFlavor="NA" /> <code codeSystem="local" code="HEP4" displayName="Hepatitis Panel" /> <statusCode code="completed" /> < component> <observation moodCode="EVN" classCode="OBS"> < templateId root="840.1.024225.10.4.2" /> <id nullFlavor="NA " /> <code codeSystem="local" code="HAABM" displayName="Hepatitis A Antibody IGM" /> <statusCode code="completed" /> < effectiveTime value="223452343948" /> <value unit="" xsi:type="PQ" value="Negative" /> <referenceRange> <observationRange> <text /> </observationRange> </referenceRange> </observation> </component> <component> <observation moodCode="EVN" classCode="OBS"> <templateId root= "840.1.453126.08.03.22.4.2" /> <id nullFlavor="NA" /> < code codeSystem="local" code="HBSAG" displayName="Hepatitis B Surface Antigen" / > <statusCode code="completed" /> <effectiveTime value= "513819583039" /> <value unit="" xsi:type="PQ" value="Negative" /> <referenceRange> <observationRange> <text /> </observationRange> </referenceRange> </observation> </component> </organizer> </entry> <entry> <organizer moodCode="EVN" classCode="BATTERY"> <templateId root="840.1.104260.08.03.22.4.1" /> <id nullFlavor="NA" /> <code codeSystem="local" code="PREGN" displayName=" Screen, Urine NPT" /> <statusCode code="completed" / > <component> <observation moodCode="EVN" classCode="OBS"> <templateId root="840.1.557756.08.03.22.4.2" /> <id nullFlavor="NA " /> <code codeSystem="local" code="PREGN" displayName=" Screen, Urine NPT" /> <statusCode code="completed" /> < effectiveTime value="296452258281" /> <value unit="NA" xsi:type="PQ" value="Negative" /> <referenceRange> <observationRange> <text /> </observationRange> </referenceRange> </observation> </component> </organizer> </entry> <entry> < organizer moodCode="EVN" classCode="BATTERY"> <templateId root= "216.840.1.198855.10...4.1" /> <id nullFlavor="NA" /> <code codeSystem="local" code="UA" displayName="Urinalysis with reflex microscopic" / > <statusCode code="completed" /> <component> <observation moodCode="EVN" classCode="OBS"> <templateId root= "216.840.1.865079.10...4.2" /> <id nullFlavor="NA" /> < code codeSystem="local" code="UAPP" displayName="Appearance" /> < statusCode code="completed" /> <effectiveTime value="926721479247" /> <value unit="NA" xsi:type="PQ" value="Sl Cloudy" /> < referenceRange> <observationRange> <text /> < /observationRange> </referenceRange> </observation> </ component> <component> <observation moodCode="EVN" classCode="OBS"> <templateId root="216.840.1.127795.10...4.2" /> <id nullFlavor="NA" /> <code codeSystem="local" code="UBIL" displayName= "Bilirubin" /> <statusCode code="completed" /> <effectiveTime value="879333908580" /> <value unit="NA" xsi:type="PQ" value="Negative " /> <referenceRange> <observationRange> <text> Negative</text> </observationRange> </referenceRange> </observation> </component> <component> <observation moodCode ="EVN" classCode="OBS"> <templateId root= "16.840.1.100592.10.4.2" /> <id nullFlavor="NA" /> < code codeSystem="local" code="UBLD" displayName="Blood" /> <statusCode code="completed" /> <effectiveTime value="628800081262" /> < value unit="NA" xsi:type="PQ" value="Negative" /> <referenceRange> <observationRange> <text>Negative</text> </ observationRange> </referenceRange> </observation> </ component> <component> <observation moodCode="EVN" classCode="OBS"> <templateId root="11.30.840.1.519685.08.03.22.4.2" /> <id nullFlavor="NA" /> <code codeSystem="local" code="UCOLR" displayName= "Color" /> <statusCode code="completed" /> <effectiveTime value="457370032717" /> <value unit="NA" xsi:type="PQ" value="Yellow" / > <referenceRange> <observationRange> <text /> </observationRange> </referenceRange> </observation > </component> <component> <observation moodCode="EVN" classCode="OBS"> <templateId root="11.30.840.1.884326.08.03.22.4.2" /> <id nullFlavor="NA" /> <code codeSystem="local" code="UGLU" displayName="Glucose, Urine" /> <statusCode code="completed" /> <effectiveTime value="476229768602" /> <value unit="" xsi:type="PQ" value="Negative" /> <referenceRange> <observationRange> <text>Negative</text> </observationRange> </ referenceRange> </observation> </component> <component> <observation moodCode="EVN" classCode="OBS"> <templateId root= "11.30.840.1.302929.08.03.22.4.2" /> <id nullFlavor="NA" /> < code codeSystem="local" code="UKET" displayName="Ketones" /> < statusCode code="completed" /> <effectiveTime value="833393902445" /> <value unit="" xsi:type="PQ" value="Negative" /> < referenceRange> <observationRange> <text>Negative</text > </observationRange> </referenceRange> </observation > </component> <component> <observation moodCode="EVN" classCode="OBS"> <templateId root="11.30.840.1.877699.08.03.22.4.2" /> <id nullFlavor="NA" /> <code codeSystem="local" code="ULEU" displayName="Leukocyte Esterase" /> <statusCode code="completed" /> <effectiveTime value="240481301980" /> <value unit="NA" xsi:type ="PQ" value="Trace" /> <interpretationCode codeSystem="local" code="*" /> <referenceRange> <observationRange> <text> Negative</text> </observationRange> </referenceRange> </observation> </component> <component> <observation moodCode ="EVN" classCode="OBS"> <templateId root= "11.30.840.1.617551.08.03.22.4.2" /> <id nullFlavor="NA" /> < code codeSystem="local" code="UNIT" displayName="Nitrites" /> < statusCode code="completed" /> <effectiveTime value="268259474866" /> <value unit="NA" xsi:type="PQ" value="Negative" /> < referenceRange> <observationRange> <text>Negative</text > </observationRange> </referenceRange> </observation > </component> <component> <observation moodCode="EVN" classCode="OBS"> <templateId root="11.30.840.1.589587.10.22.4.2" /> <id nullFlavor="NA" /> <code codeSystem="local" code="UPH" displayName="pH" /> <statusCode code="completed" /> < effectiveTime value="129709319286" /> <value unit="NA" xsi:type="PQ" value="6.0" /> <referenceRange> <observationRange> <text>5.0-8.0</text> </observationRange> </ referenceRange> </observation> </component> <component> <observation moodCode="EVN" classCode="OBS"> <templateId root= "11.30.840.1.227382.08.03.22.4.2" /> <id nullFlavor="NA" /> < code codeSystem="local" code="UPRO" displayName="Protein" /> < statusCode code="completed" /> <effectiveTime value="883504467803" /> <value unit="NA" xsi:type="PQ" value="Negative" /> < referenceRange> <observationRange> <text>Negative</text > </observationRange> </referenceRange> </observation > </component> <component> <observation moodCode="EVN" classCode="OBS"> <templateId root="11.30.840.1.297550.22.4.2" /> <id nullFlavor="NA" /> <code codeSystem="local" code="USPG" displayName="Specific [place]" /> <statusCode code="completed" /> <effectiveTime value="558881375833" /> <value unit="NA" xsi:type= "PQ" value="1.020" /> <referenceRange> <observationRange> <text>1.003-1.030</text> </observationRange> </ referenceRange> </observation> </component> <component> <observation moodCode="EVN" classCode="OBS"> <templateId root= "2.16.840.1.213089.08.03.22.4.2" /> <id nullFlavor="NA" /> < code codeSystem="local" code="UTYP" displayName="UA Collection type" /> <statusCode code="completed" /> <effectiveTime value="435847027193" / > <value unit="NA" xsi:type="PQ" value="Voided" /> < referenceRange> <observationRange> <text /> < /observationRange> </referenceRange> </observation> </ component> <component> <observation moodCode="EVN" classCode="OBS"> <templateId root="2.16.840.1.934372.10..4.2" /> <id nullFlavor="NA" /> <code codeSystem="local" code="UURO" displayName= "Urobilinogen" /> <statusCode code="completed" /> < effectiveTime value="954533380255" /> <value unit="mg/dL" xsi:type="PQ " value="Negative" /> <referenceRange> <observationRange> <text><1.0</text> </observationRange> </ referenceRange> </observation> </component> </organizer> </entry > <entry> <organizer moodCode="EVN" classCode="BATTERY"> <templateId root="840.1.142937.08.03.22.4.1" /> <id nullFlavor="NA" /> <code codeSystem="local" code="UMIC" displayName="Urine Microscopic" /> < statusCode code="completed" /> <component> <observation moodCode= "EVN" classCode="OBS"> <templateId root="840.1.996620.08.03.224.2 " /> <id nullFlavor="NA" /> <code codeSystem="local" code= "UBAC" displayName="Bacteria" /> <statusCode code="completed" /> <effectiveTime value="650735343144" /> <value unit="NA" xsi:type= "PQ" value="Moderate" /> <interpretationCode codeSystem="local" code="* " /> <referenceRange> <observationRange> <text /> </observationRange> </referenceRange> </ observation> </component> <component> <observation moodCode= "EVN" classCode="OBS"> <templateId root="840.1.424092.08.03.224.2 " /> <id nullFlavor="NA" /> <code codeSystem="local" code= "UEPI" displayName="Epithelial Cells" /> <statusCode code="completed" / > <effectiveTime value="411732834592" /> <value unit="/HPF" xsi:type="PQ" value="10" /> <referenceRange> < observationRange> <text /> </observationRange> </referenceRange> </observation> </component> <component> <observation moodCode="EVN" classCode="OBS"> <templateId root= "840.1.251836.08.03.22.4.2" /> <id nullFlavor="NA" /> < code codeSystem="local" code="URBC" displayName="RBC, Urine" /> < statusCode code="completed" /> <effectiveTime value="609679915533" /> <value unit="/HPF" xsi:type="PQ" value="0" /> <referenceRange > <observationRange> <text>0-2</text> </ observationRange> </referenceRange> </observation> </ component> <component> <observation moodCode="EVN" classCode="OBS"> <templateId root="216.840.1.309510.10..22.4.2" /> <id nullFlavor="NA" /> <code codeSystem="local" code="UMUC" displayName= "Urine Mucus" /> <statusCode code="completed" /> < effectiveTime value="090411779253" /> <value unit="NA" xsi:type="PQ" value="Present" /> <referenceRange> <observationRange> <text /> </observationRange> </referenceRange> </observation> </component> <component> <observation moodCode="EVN" classCode="OBS"> <templateId root= "216.840.1.051546.10..22.4.2" /> <id nullFlavor="NA" /> < code codeSystem="local" code="UWBC" displayName="WBC, Urine" /> < statusCode code="completed" /> <effectiveTime value="767120981739" /> <value unit="/HPF" xsi:type="PQ" value="2" /> <referenceRange > <observationRange> <text>0-4</text> </ observationRange> </referenceRange> </observation> </ component> </organizer> </entry> <entry> <organizer moodCode="EVN" classCode="BATTERY"> <templateId root="2.16.840.1.042203.10..4.1" /> <id nullFlavor="NA" /> <code codeSystem="local" code="CBCWD" displayName="CBC With Platelet and Differential" /> <statusCode code= "completed" /> <component> <observation moodCode="EVN" classCode= "OBS"> <templateId root="11.30.840.1.129565.08.03.22.4.2" /> < id nullFlavor="NA" /> <code codeSystem="local" code="ABASR" displayName ="Absolute Basophils" /> <statusCode code="completed" /> < effectiveTime value="600726758007" /> <value unit="10*3/uL" xsi:type= "PQ" value="0.03" /> <referenceRange> <observationRange> <text>0.00-0.20</text> </observationRange> </ referenceRange> </observation> </component> <component> <observation moodCode="EVN" classCode="OBS"> <templateId root= "11.30.840.1.617902.08.03.22.4.2" /> <id nullFlavor="NA" /> < code codeSystem="local" code="AEOSR" displayName="Absolute Eosinophils" /> <statusCode code="completed" /> <effectiveTime value="166898626415 " /> <value unit="10*3/uL" xsi:type="PQ" value="0.26" /> < referenceRange> <observationRange> <text>0.00-0.50</text > </observationRange> </referenceRange> </observation > </component> <component> <observation moodCode="EVN" classCode="OBS"> <templateId root="216.840.1.637780.08.03.22.4.2" /> <id nullFlavor="NA" /> <code codeSystem="local" code="ALYMR" displayName="Absolute Lymphocytes" /> <statusCode code="completed" /> <effectiveTime value="168214692110" /> <value unit="10*3/uL" xsi:type="PQ" value="1.96" /> <referenceRange> < observationRange> <text>0.80-3.30</text> </ observationRange> </referenceRange> </observation> </ component> <component> <observation moodCode="EVN" classCode="OBS"> <templateId root="2.16.840.1.544928....4.2" /> <id nullFlavor="NA" /> <code codeSystem="local" code="AMONR" displayName= "Absolute Monocytes" /> <statusCode code="completed" /> < effectiveTime value="575869787725" /> <value unit="10*3/uL" xsi:type= "PQ" value="0.43" /> <referenceRange> <observationRange> <text>0.30-1.00</text> </observationRange> </ referenceRange> </observation> </component> <component> <observation moodCode="EVN" classCode="OBS"> <templateId root= "2.16.840.1.131483....4.2" /> <id nullFlavor="NA" /> < code codeSystem="local" code="ASEGR" displayName="Absolute Neutrophils" /> <statusCode code="completed" /> <effectiveTime value="357815155646 " /> <value unit="10*3/uL" xsi:type="PQ" value="3.42" /> < referenceRange> <observationRange> <text>1.90-7.00</text > </observationRange> </referenceRange> </observation > </component> <component> <observation moodCode="EVN" classCode="OBS"> <templateId root="216.840.1.358631.10.20.22.4.2" /> <id nullFlavor="NA" /> <code codeSystem="local" code="BASOR" displayName="Basophils" /> <statusCode code="completed" /> < effectiveTime value="" /> <value unit="%" xsi:type="PQ " value="1" /> <referenceRange> <observationRange> <text>0-2</text> </observationRange> </referenceRange> </observation> </component> <component> <observation moodCode="EVN" classCode="OBS"> <templateId root= "216.840.1.556933.10.22.4.2" /> <id nullFlavor="NA" /> < code codeSystem="local" code="EOSR" displayName="Eosinophils" /> < statusCode code="completed" /> <effectiveTime value="" /> <value unit="%" xsi:type="PQ" value="4" /> <referenceRange > <observationRange> <text>0-4</text> </ observationRange> </referenceRange> </observation> </ component> <component> <observation moodCode="EVN" classCode="OBS"> <templateId root="16.840.1.468872.10.2022.4.2" /> <id nullFlavor="NA" /> <code codeSystem="local" code="HCT" displayName="HCT " /> <statusCode code="completed" /> <effectiveTime value= "119844101634" /> <value unit="%" xsi:type="PQ" value="36.8" /> <interpretationCode codeSystem="local" code="*" /> < referenceRange> <observationRange> <text>37.0-47.0</text > </observationRange> </referenceRange> </observation > </component> <component> <observation moodCode="EVN" classCode="OBS"> <templateId root="16.840.1.588058.10.20.22.4.2" /> <id nullFlavor="NA" /> <code codeSystem="local" code="HGB" displayName="HGB" /> <statusCode code="completed" /> < effectiveTime value="389271225306" /> <value unit="g/dL" xsi:type="PQ" value="11.7" /> <interpretationCode codeSystem="local" code="*" /> <referenceRange> <observationRange> <text>12.0- 16.0</text> </observationRange> </referenceRange> </ observation> </component> <component> <observation moodCode= "EVN" classCode="OBS"> <templateId root="11.30.840.1.440359...4.2 " /> <id nullFlavor="NA" /> <code codeSystem="local" code= "IMGA" displayName="Immature Granulocytes" /> <statusCode code= "completed" /> <effectiveTime value="610988799078" /> <value unit="%" xsi:type="PQ" value="0.5" /> <referenceRange> < observationRange> <text>0.0-1.0</text> </ observationRange> </referenceRange> </observation> </ component> <component> <observation moodCode="EVN" classCode="OBS"> <templateId root="16.840.1.614621.10...4.2" /> <id nullFlavor="NA" /> <code codeSystem="local" code="LYMPR" displayName= "Lymphocytes" /> <statusCode code="completed" /> < effectiveTime value="286129526969" /> <value unit="%" xsi:type="PQ " value="32" /> <referenceRange> <observationRange> <text>20-46</text> </observationRange> </ referenceRange> </observation> </component> <component> <observation moodCode="EVN" classCode="OBS"> <templateId root= "216.840.1.896827.10.20.22.4.2" /> <id nullFlavor="NA" /> < code codeSystem="local" code="MCH" displayName="MCH" /> <statusCode code="completed" /> <effectiveTime value="226218705457" /> < value unit="pg" xsi:type="PQ" value="29.9" /> <referenceRange> <observationRange> <text>27.0-32.0</text> </ observationRange> </referenceRange> </observation> </ component> <component> <observation moodCode="EVN" classCode="OBS"> <templateId root="216.840.1.432552.10.20.22.4.2" /> <id nullFlavor="NA" /> <code codeSystem="local" code="MCHC" displayName= "MCHC" /> <statusCode code="completed" /> <effectiveTime value ="686158157187" /> <value unit="g/dL" xsi:type="PQ" value="31.8" /> <interpretationCode codeSystem="local" code="*" /> < referenceRange> <observationRange> <text>32.0-36.0</text > </observationRange> </referenceRange> </observation > </component> <component> <observation moodCode="EVN" classCode="OBS"> <templateId root="16.840.1.001844.10..22.4.2" /> <id nullFlavor="NA" /> <code codeSystem="local" code="MCV" displayName="MCV" /> <statusCode code="completed" /> < effectiveTime value="338372405581" /> <value unit="fL" xsi:type="PQ" value="94.1" /> <referenceRange> <observationRange> <text>82.0-99.0</text> </observationRange> </ referenceRange> </observation> </component> <component> <observation moodCode="EVN" classCode="OBS"> <templateId root= "11.30.840.1.089855..22.4.2" /> <id nullFlavor="NA" /> < code codeSystem="local" code="MONOR" displayName="Monocytes" /> < statusCode code="completed" /> <effectiveTime value="074876935793" /> <value unit="%" xsi:type="PQ" value="7" /> <referenceRange > <observationRange> <text>4-11</text> </ observationRange> </referenceRange> </observation> </ component> <component> <observation moodCode="EVN" classCode="OBS"> <templateId root="11.30.840.1.151968.102022.4.2" /> <id nullFlavor="NA" /> <code codeSystem="local" code="MPV" displayName="MPV " /> <statusCode code="completed" /> <effectiveTime value= "151343240821" /> <value unit="fL" xsi:type="PQ" value="9.4" /> <referenceRange> <observationRange> <text>9.4-12.4</ text> </observationRange> </referenceRange> </ observation> </component> <component> <observation moodCode= "EVN" classCode="OBS"> <templateId root="216.840.1.310285.10.4.2 " /> <id nullFlavor="NA" /> <code codeSystem="local" code= "SEGR" displayName="Neutrophils" /> <statusCode code="completed" /> <effectiveTime value="" /> <value unit="%" xsi: type="PQ" value="56" /> <referenceRange> <observationRange> <text>51-75</text> </observationRange> </ referenceRange> </observation> </component> <component> <observation moodCode="EVN" classCode="OBS"> <templateId root= "216.840.1.331291.08.03.224.2" /> <id nullFlavor="NA" /> < code codeSystem="local" code="NRBCA" displayName="Nucleated RBC Automated" /> <statusCode code="completed" /> <effectiveTime value= "" /> <value unit="/100WBC" xsi:type="PQ" value="0.0" /> <referenceRange> <observationRange> <text /> </observationRange> </referenceRange> </observation> </component> <component> <observation moodCode="EVN" classCode= "OBS"> <templateId root="16.840.1.174177.10..4.2" /> < id nullFlavor="NA" /> <code codeSystem="local" code="PLT" displayName= "Platelet Count" /> <statusCode code="completed" /> < effectiveTime value="" /> <value unit="K/uL" xsi:type="PQ" value="290" /> <referenceRange> <observationRange> <text>150-400</text> </observationRange> </ referenceRange> </observation> </component> <component> <observation moodCode="EVN" classCode="OBS"> <templateId root= "216.840.1.860311.10.20.22.4.2" /> <id nullFlavor="NA" /> < code codeSystem="local" code="RBC" displayName="RBC" /> <statusCode code="completed" /> <effectiveTime value="723972811970" /> < value unit="10*6/uL" xsi:type="PQ" value="3.91" /> <interpretationCode codeSystem="local" code="*" /> <referenceRange> < observationRange> <text>4.00-5.20</text> </ observationRange> </referenceRange> </observation> </ component> <component> <observation moodCode="EVN" classCode="OBS"> <templateId root="11.30.840.1.959326.10.22.4.2" /> <id nullFlavor="NA" /> <code codeSystem="local" code="RDW" displayName="RDW " /> <statusCode code="completed" /> <effectiveTime value= "791440409460" /> <value unit="%" xsi:type="PQ" value="13.3" /> <referenceRange> <observationRange> <text>11.5- 14.5</text> </observationRange> </referenceRange> </ observation> </component> <component> <observation moodCode= "EVN" classCode="OBS"> <templateId root="16.840.1.798999.10.20.22.4.2 " /> <id nullFlavor="NA" /> <code codeSystem="local" code= "WBCIR" displayName="WBC" /> <statusCode code="completed" /> < effectiveTime value="426031355867" /> <value unit="K/uL" xsi:type="PQ" value="6.1" /> <referenceRange> <observationRange> <text>4.8-10.8</text> </observationRange> </ referenceRange> </observation> </component> </organizer> </entry > <entry> <organizer moodCode="EVN" classCode="BATTERY"> <templateId root="216.840.1.606318.10..22.4.1" /> <id nullFlavor="NA" /> <code codeSystem="local" code="BMP" displayName="Basic Metabolic Panel (BMP)" /> <statusCode code="completed" /> <component> <observation moodCode= "EVN" classCode="OBS"> <templateId root="216.840.1.393874.10..22.4.2 " /> <id nullFlavor="NA" /> <code codeSystem="local" code= "AGAP" displayName="Anion Gap" /> <statusCode code="completed" /> <effectiveTime value="940652350847" /> <value unit="mEq/L" xsi: type="PQ" value="8" /> <referenceRange> <observationRange> <text>3-20</text> </observationRange> </ referenceRange> </observation> </component> <component> <observation moodCode="EVN" classCode="OBS"> <templateId root= "16.840.1.711065.10.22.4.2" /> <id nullFlavor="NA" /> < code codeSystem="local" code="BUN" displayName="BUN" /> <statusCode code="completed" /> <effectiveTime value="627620954226" /> < value unit="mg/dL" xsi:type="PQ" value="12" /> <referenceRange> <observationRange> <text>4-20</text> </ observationRange> </referenceRange> </observation> </ component> <component> <observation moodCode="EVN" classCode="OBS"> <templateId root="216.840.1.288460...4.2" /> <id nullFlavor="NA" /> <code codeSystem="local" code="CA" displayName= "Calcium" /> <statusCode code="completed" /> <effectiveTime value="021890628398" /> <value unit="mg/dL" xsi:type="PQ" value="8.3" / > <interpretationCode codeSystem="local" code="*" /> < referenceRange> <observationRange> <text>8.6-10.0</text > </observationRange> </referenceRange> </observation > </component> <component> <observation moodCode="EVN" classCode="OBS"> <templateId root="11.30.840.1.755104.08.03.22.4.2" /> <id nullFlavor="NA" /> <code codeSystem="local" code="CL" displayName="Chloride" /> <statusCode code="completed" /> < effectiveTime value="884219357881" /> <value unit="mEq/L" xsi:type="PQ " value="104" /> <referenceRange> <observationRange> <text>99-109</text> </observationRange> </ referenceRange> </observation> </component> <component> <observation moodCode="EVN" classCode="OBS"> <templateId root= "11.30.840.1.457686...4.2" /> <id nullFlavor="NA" /> < code codeSystem="local" code="CO2" displayName="CO2" /> <statusCode code="completed" /> <effectiveTime value="111826922082" /> < value unit="mEq/L" xsi:type="PQ" value="26" /> <referenceRange> <observationRange> <text>22-32</text> </ observationRange> </referenceRange> </observation> </ component> <component> <observation moodCode="EVN" classCode="OBS"> <templateId root="216.840.1.348710.10...4.2" /> <id nullFlavor="NA" /> <code codeSystem="local" code="CREAT" displayName= "Creatinine" /> <statusCode code="completed" /> < effectiveTime value="226366543918" /> <value unit="mg/dL" xsi:type="PQ " value="0.58" /> <referenceRange> <observationRange> <text>0.44-1.03</text> </observationRange> </ referenceRange> </observation> </component> <component> <observation moodCode="EVN" classCode="OBS"> <templateId root= "216.840.1.888264.10...4.2" /> <id nullFlavor="NA" /> < code codeSystem="local" code="GLU" displayName="Glucose" /> < statusCode code="completed" /> <effectiveTime value="848232420708" /> <value unit="mg/dL" xsi:type="PQ" value="67" /> < interpretationCode codeSystem="local" code="*" /> <referenceRange> <observationRange> <text>70-100</text> </ observationRange> </referenceRange> </observation> </ component> <component> <observation moodCode="EVN" classCode="OBS"> <templateId root="840.1.108889.10.22.4.2" /> <id nullFlavor="NA" /> <code codeSystem="local" code="K" displayName= "Potassium" /> <statusCode code="completed" /> <effectiveTime value="017727128776" /> <value unit="mEq/L" xsi:type="PQ" value="3.9" / > <referenceRange> <observationRange> <text>3.6 -5.1</text> </observationRange> </referenceRange> </ observation> </component> <component> <observation moodCode= "EVN" classCode="OBS"> <templateId root="840.1.953846.08.03.22.4.2 " /> <id nullFlavor="NA" /> <code codeSystem="local" code="NA " displayName="Sodium" /> <statusCode code="completed" /> < effectiveTime value="580902892290" /> <value unit="mEq/L" xsi:type="PQ " value="138" /> <referenceRange> <observationRange> <text>136-144</text> </observationRange> </ referenceRange> </observation> </component> </organizer> </entry > <entry> <organizer moodCode="EVN" classCode="BATTERY"> <templateId root="840.1.075272.1022.4.1" /> <id nullFlavor="NA" /> <code codeSystem="local" code="GFR" displayName="eGFR" /> <statusCode code= "completed" /> <component> <observation moodCode="EVN" classCode= "OBS"> <templateId root="840.1.591679.1022.4.2" /> < id nullFlavor="NA" /> <code codeSystem="local" code="GFR" displayName= "eGFR" /> <statusCode code="completed" /> <effectiveTime value ="215046275654" /> <value unit="mL/min" xsi:type="PQ" value=">60" / > <referenceRange> <observationRange> <text>&gt ;60</text> </observationRange> </referenceRange> </ observation> </component> </organizer> </entry> <entry> <organizer moodCode="EVN" classCode="BATTERY"> <templateId root= "2.16.840.1.600949.10.20.22.4.1" /> <id nullFlavor="NA" /> <code codeSystem="local" code="GLUN" displayName="Glucose NPT" /> <statusCode code="completed" /> <component> <observation moodCode="EVN" classCode="OBS"> <templateId root="2.16.840.1.245425.10.20.22.4.2" /> <id nullFlavor="NA" /> <code codeSystem="local" code="GLUN" displayName="Glucose NPT" /> <statusCode code="completed" /> <effectiveTime value="094165630910" /> <value unit="mg/dL" xsi:type="PQ " value="99" /> <referenceRange> <observationRange> <text>70-100</text> </observationRange> </ referenceRange> </observation> </component> </organizer> </entry ></section> Encounters ACCT No. Visit Date/Time Discharge Status Pt. Type Provider Facility Loc./Unit Complaint [id number] 10/16/2017 23:32:00 10/17/2017 00:30:00 DIS Emergency [facility] W.EDS [id number] 06/11/2017 18:32:00 06/11/2017 21:45:00 DIS Emergency Tanja DODD, Odalis Vazquez [facility].JONG [id number] 06/08/2016 13:30:00 06/08/2016 13:30:00 CAN Outpatient Axel AUGUSTINE, Sae Matias [facility] W.PUMA [id number] 02/04/2016 14:29:00 02/04/2016 17:46:00 DIS [id number] 01/30/2016 21:33:00 01/30/2016 22:51:00 DIS Emergency Vishal DODD, [facility] [id number] 12/11/2015 15:28:00 12/11/2015 15:59:00 DIS Emergency [facility]allow[id number] 11/30/2015 23:10:00 12/01/2015 00:15:00 [id number] 03/14/2017 13:15:00 Document Registration [id number] 03/14/2017 00:00:00 Document Registration [id number] 10/06/2016 14:57:20 10/06/2016 23:59:59 [facility] Outpatient Yunior Velazquez [id number] 12/25/2017 05:16:39 Document Registration [id number] 12/22/2017 05:16:44 Document Registration [id number] 12/21/2017 05:16:13 Document Registration [id number] 12/20/2017 05:17:02 Document Registration [id number] 12/19/2017 05:17:18 Document Registration [id number] 12/16/2017 05:16:09 Document Registration [id number] 12/15/2017 20:05:00 Document Registration [id number] 02/09/2017 08:16:00 Document Registration [id number] 08/17/2016 17:31:00 Document Registration [id number] 08/16/2016 00:00:00 Document Registration [id number] 03/07/2016 21:42:00 Document Registration [id number] 02/29/2016 15:29:00 Document Registration [id number] 01/05/2018 15:04:00 ACT Document Registration [id number] 12/24/2017 00:00:00 12/24/2017 00:00:00 DIS Outpatient [id number] 01/04/2018 10:08:00 01/04/2018 12:30:00 DIS Emergency Magallanes Howard [facility] on [facility] ED abd pain [id number] 12/15/2017 20:05:00 12/15/2017 23:59:59 CLS Emergency Zarate Jacob [facility] on [facility] ED chest pain, memory issues [id number] 11/21/2017 00:46:00 11/28/2017 17:20:00 DIS Inpatient Hernandez Rex [facility] on [facility] J5IM SA, APAP tox, meth abuse [id number] 11/04/2017 02:42:00 11/04/2017 03:40:00 DIS Emergency Zac Tijerina [facility] on [facility] ED SOA, ABD Pain [id number] 10/16/2017 22:17:00 10/17/2017 01:11:00 DIS Emergency Magallanes Howard [facility] on [facility] ED abd pain [id number] 08/04/2017 18:35:00 08/05/2017 12:28:00 DIS Emergency Zarate Jacob [facility] on [facility] ED abominal pain [id number] 08/03/2017 11:01:00 08/03/2017 14:17:00 DIS Emergency Zarate Jacob [facility] on [facility] ED abd pain [id number] 06/11/2017 10:40:00 06/11/2017 23:59:59 CLS Emergency Zarate Jacob [facility] on [facility] ED ABD PAIN [id number] 05/24/2017 09:18:00 05/24/2017 12:11:00 DIS Emergency Zarate Jacob [facility] on [facility] ED n/v bodyaches, chills [id number] 02/09/2017 08:16:00 02/09/2017 13:41:00 DIS Emergency Bruey,, Madelin [facility] on [facility] ED nausea, left sided abd pain [id number] 09/30/2016 01:15:00 09/30/2016 04:31:00 DIS Emergency Richar Pierce [facility] on [facility] ED sore throat, left ear pain [id number] 08/17/2016 17:31:00 08/17/2016 19:42:00 DIS Emergency Zac Tijerina [facility] on [facility] ED right side abd pain [id number] 08/16/2016 00:56:00 08/17/2016 12:59:00 DIS Outpatient Velazquez Jeremy [facility] on [facility] J6E intractable abdominal pain [id number] 05/28/2016 20:19:00 05/28/2016 21:41:00 DIS Emergency Srivastava Mark [facility] on [facility] ED cough, SOA [id number] 03/20/2016 01:21:00 03/20/2016 23:59:59 CLS Emergency Skinner Matthew [facility] on [facility] ED abd pain, cramping [id number] 03/07/2016 21:42:00 03/08/2016 19:16:00 DIS Outpatient Jorge Brice [facility] on [facility] J5W Incomplete / dysfunctional bleeding [id number] 02/29/2016 23:47:00 03/01/2016 01:01:00 DIS Emergency Srivastava Mark [facility] on [facility] ED vaginal bleeding [id number] 02/28/2016 20:08:00 02/28/2016 22:19:00 DIS Emergency Srivastava Mark [facility] on [facility] ED vag bleeding, 8 wks [id number] 02/18/2016 13:47:00 02/18/2016 17:14:00 DIS Emergency Richar Pierce [facility] on [facility] ED Possible miscarriage [id number] 01/25/2016 20:48:00 01/25/2016 23:09:00 DIS Emergency José Magallanes MD [facility] on [facility] ED CONGESTION, COUGH [id number] 11/25/2015 13:12:00 11/25/2015 13:52:00 DIS Emergency Elpidio DODD, José Barajas [facility] on [facility] ED sore throt [id number] 10/27/2015 12:04:00 10/27/2015 13:55:00 DIS Emergency Richar Pierce [facility] on [facility] ED SOA possible reaction to meds [id number] 06/10/2015 10:24:00 06/10/2015 12:25:00 DIS Emergency Rodolfo DODD, Navin Pineda [facility] on [facility] ED N/V [id number] 05/02/2015 12:45:00 05/02/2015 17:15:00 DIS Emergency José Magallanes MD [facility] on [facility] ED sore throat, AGUILERA [id number] 01/05/2018 05:16:58 Document Registration [id number] 11/29/2017 05:16:48 Document Registration [id number] 11/27/2017 05:17:01 Document Registration [id number] 11/26/2017 05:15:46 Document Registration [id number] 11/24/2017 05:16:54 Document Registration [id number] 11/23/2017 05:16:49 Document Registration [id number] 11/22/2017 05:16:43 Document Registration [id number] 11/21/2017 05:17:23 Document Registration [id number] 08/06/2017 05:16:01 Document Registration [id number] 08/05/2017 05:16:09 Document Registration [id number] 08/05/2017 05:16:08 Document Registration [id number] 08/04/2017 05:17:00 Document Registration [id number] 08/04/2017 05:16:59 Document Registration [id number] 05/25/2017 05:16:24 Document Registration [id number] 05/25/2017 05:16:23 Document Registration [id number] 02/10/2017 05:16:11 Document Registration [id number] 10/01/2016 05:15:23 Document Registration [id number] 09/30/2016 05:15:40 Document Registration [id number] 08/18/2016 05:17:33 Document Registration [id number] 08/17/2016 05:17:15 Document Registration [id number] 08/16/2016 05:17:13 Document Registration [id number] 05/29/2016 05:15:17 Document Registration [id number] 03/21/2016 05:15:44 Document Registration [id number] 03/09/2016 05:15:51 Document Registration [id number] 03/08/2016 05:16:38 Document Registration [id number] 03/01/2016 05:16:45 Document Registration [id number] 02/19/2016 05:16:30 Document Registration [id number] 01/26/2016 05:16:48 Document Registration [id number] 11/26/2015 05:16:00 Document Registration [id number] 10/28/2015 05:16:07 Document Registration [id number] 10/23/2015 05:16:33 Document Registration [id number] 10/23/2015 00:22:00 Document Registration [id number] 08/04/2015 13:35:28 Document Registration [id number] 08/04/2015 13:04:37 Document Registration [id number] 08/04/2015 11:33:05 Document Registration
--- OUTSIDE RECORDS SUMMARY | 2018-03-26 02:06 | XMS REPORT | Continuity of Care Document ---
Author Author [facility] Organization [facility] Address Unknown Phone Unavailable Allergies Active Description Code Type Severity Reaction Onset Reported/Identified Relationship to Patient Clinical Status Yes Depakote ER NKMA N/A N/A 12/22/2014 Yes penicillin NKMA N/A N/A 12/22/2014 Yes Depakote - Oral Medication MED N/A N/A 12/28/2014 Yes Penicillins - CLASS Class MED N /A N/A 12/28/2014 Yes Depakote ER NKMA Medium [id number] 05/02/2015 Yes penicillin NKMA Severe 784.2 05/02/2015 [...] 0.5MG Take one tablet TID PRN for anxiety.V1V1YAczwegdo 5 mg BID dose predniSONE(predniSONE) 1 tabs [...] ORAL 5MG TAKE 1 TABLET TWICE DAILY. Boomer Carbonate 300 MG Oral Capsule UD 01/10/2016 [...] mg=2 mL, IV Push, q6hr, PRN: Nausea HYDROcodone-acetaminophen(Grapeview 5 mg-325 mg oral tablet) 1 tabs [...] ORAL 150MG TAKE 1/2 TABLET AT BEDTIME. Boomer Carbonate 300 MG Oral Capsule 03/30/2016 05/30/2016 [...] ORAL 150MG TAKE 1/2 TABLET AT BEDTIME. Boomer Carbonate 300 MG Oral Capsule 05/31/2016 07/01/2016 [...] ORAL 150MG TAKE 1/2 TABLET AT BEDTIME. 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 Sakina-Bora, Rosie A 05/03/2017 F I10 Essential ( primary) hypertension Sakina-Bora, Roise A 05/03/2017 F F31.5 Bipolar disorder, current [...] disorder, unspecified Psy, Batch 05/03/2017 F 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 Psy, Batch 05/25/2017 Elliot,, Joey Reason [...] result negative 01/07/2018 Magallanes Howard Final 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 [...] Procedures Code Description [place] [address] OFFICE/OUTPATIENT VISIT, Rosie pApiah 09/30/2015 80238 OFFICE/OUTPATIENT VISIT, Rosie Appiah 09/30/2015 72450 OFFICE/OUTPATIENT VISIT, Rosie Appiah 10/20/2015 34824 OFFICE/OUTPATIENT VISIT, Rosie Appiah 10/20/2015 48684 OFFICE/OUTPATIENT VISIT, Rosie Appiah 12/15/2015 78801 OFFICE/OUTPATIENT VISIT, Rosie Appiah 12/15/2015 39963 Aliza Rene 01/05/2016 30848 Aliza Rene 01/05/2016 33087 OFFICE/OUTPATIENT VISIT, Rosie Appiah 01/10/2016 79030 OFFICE/OUTPATIENT VISIT, GABI HearnkaitlinjuanitaSahni, Rosie A 01/10/2016 33910 Anju , Aliza Ivette 01/14/2016 58112 Anju , Aliza Ivette 01/14/2016 H0036 Evans , Joey 01/27/2016 H0036 Evans , Joey 01/27/2016 24921 Anju , Aliza Ivette 01/28/2016 46233 Anju , Aliza Ivette 01/28/2016 44228 OFFICE/OUTPATIENT VISIT, GABI HeanrkaitlinjuanitaSahni, Rosie A 02/09/2016 91615 OFFICE/OUTPATIENT VISIT, GABI SakinaDeboBora, Rosie A 02/09/2016 16411 Anju , Aliza Ivette 02/10/2016 58689 Anju , Aliza Ivette 02/10/2016 H0036 Evans , Joey 02/24/2016 H0036 Evans , Joey 02/24/2016 H2011 Herl, Reginald W 03/06/2016 H2011 Herl, Reginald W 03/06/2016 89172 Anju , Aliza Ivette 03/14/2016 01887 Anju , Aliza Ivette 03/14/2016 41413 Anju , Aliza Ivette 03/28/2016 07276 Anju , Aliza Ivette 03/28/2016 25173 OFFICE/OUTPATIENT VISIT, GABI HearnwilyDeboSahniRosie nguyen A 03/30/2016 16858 OFFICE/OUTPATIENT VISIT, GABI SakinaDeboBora Rosie A 03/30/2016 24726 Anju , Aliza Ivette 04/07/2016 52321 Anju , Aliza Ivette 04/07/2016 27530 Anju , Aliza Ivette 05/29/2016 22243 Anju , Aliza Ivette 05/29/2016 83137 OFFICE/OUTPATIENT VISIT, GABI Hernandez Rosie A 05/31/2016 08687 OFFICE/OUTPATIENT VISIT, GABI Hernandez Rosie A 05/31/2016 45143 Anju , Aliza Ivette 07/12/2016 48648 Anju , Aliza Ivette 07/12/2016 50246 OFFICE/OUTPATIENT VISIT, GABI Hernandez Rosie A 07/31/2016 30784 OFFICE/OUTPATIENT VISIT, Rosie Appiah Darleen 07/31/2016 62641 Laparoscopy, surgical; cholecystectomy with cholangiography.. 2015 62723 Office or other outpatient visit for the evaluation and management of a new patient, which requires MarcusYunior 10/06/2016 40166 Laparoscopy, surgical; cholecystectomy with cholangiography MarcusYunior 10/06/2016 39957 Laparoscopy, surgical; cholecystectomy with cholangiography MarcusYunior 10/20/2016 85490 Office or other outpatient visit for the evaluation and management of a new patient, which requires Yunior Velazquez 10/20/2016 08684 Aliza Rene 11/07/2016 53219 Aliza Rene 11/07/2016 16628 Yesenia Monk 12/27/2016 53561 Siomara Monkrilakshmi 12/27/2016 68952 Guillermo Monkundrieka 01/03/2017 27961 Siomara Monkrieka 01/03/2017 63392 EYE EXAM ESTABLISHED PAT 03/14/2017 61247 REFRACTION 03/14/2017 V2020 Vision svcs frames purchases 03/14/2017 V2100 Lens spher single plano 4.00 03/14/2017 V2103 Spherocylindr 4.00d/12- 2.00d 03/14/2017 V2782 Lens, 1.54-1.65 p/1.60- 1.79g 03/14/2017 VNOPP No Protection Plan 03/14/2017 [id number] OFFICE/OUTPATIENT VISIT, GABI Hernandez Rosie Darleen 05/03/2017 88585 OFFICE/OUTPATIENT VISIT, GABI Hernandez Rosie A 05/03/2017 T1023 Gatekeeping Screen - Initial Bethany Gomez 11/28/2017 H2011 Crisis Intervention - Basic Ella Escalera 11/28/2017 H2011 Crisis Intervention - Advanced Lucy Pacheco 11/28/2017 H2011 Crisis Intervention - Advanced Lucy Pacheco 11/28/2017 H2011 Crisis Intervention - Intermediate Ella Escalera 11/28/2017 55900 INITIAL HOSPITAL CARE CosammierSienna 12/19/2017 02040 SUBSEQUENT HOSPITAL CARE Coyner, Sienna S 12/20/2017 57713 SUBSEQUENT HOSPITAL CARE Coyner, Sienna S 12/21/2017 89718 SUBSEQUENT HOSPITAL CARE Coyner, Sienna S 12/22/2017 28101 SUBSEQUENT HOSPITAL CARE Coyner, Sienna S 12/23/2017 13309 HOSPITAL DISCHARGE DAY Cosammier, Sienna Pineda 12/24/2017 <section xmlns="urn:hl7-org:v3" xmlns:xsi="http://www.Wizpert3.org/2001/XMLSchema-instance"> < templateId root="2.16.840.1.160691.10.20.22.2.3" /> <templateId root= "2.16.840.1.590027.10.20.22.2.3.1" /> <code codeSystemName="LOINC" codeSystem= "2.16.840.1.580487.6.1" code="85706-6" displayName="Results" /> <title>Results< /title> <text> <table> <thead> [...] <td>Negative NA</td> <td> Negative</td> </tr> <tr> <td>Specific [place]lan</td> <td>1.020 NA</td> <td>1.003-1.030</td> </tr> <tr> <td>UA Collection [...] <td>Protein</td> <td>Negative NA</td> <td>Negative</td> </tr> <tr> <td>Specific [place]</td> <td>1.015 NA </td> <td>1.003-1.030</td> </tr> <tr> <td>UA [...] <td>Pos 2+ NA</td> <td>Negative</td> </tr> <tr> <td>Specific [place]lan</td> <td>1.015 NA</td > <td>1.003-1.030</td> </tr> <tr> <td>UA [...] <td>Protein</td> <td>Negative NA</td> <td>Negative</td> </tr> <tr> <td>Specific Quinlan</ td> <td>1.010 NA</td> <td>1.003-1.030</td> </tr> <tr> <td>UA [...] <td>Pos 2+ NA</td> <td>Negative</td> </tr> <tr> <td>Specific [place]</td> <td>1.045 NA</td> <td>1.003- 1.030</td> </tr> <tr> <td>UA [...] <td>Protein</td> <td>Negative NA</td> <td>Negative</td> </tr> <tr> <td>Specific [place]lan </td> <td>1.025 NA</td> <td>1.003-1.030</td> </tr> <tr> <td>UA [...] <td>Protein</td> <td>Negative NA</td> <td>Negative</td> </tr> <tr> <td>Specific Quinlan</td> <td>1.020 NA</td> <td>1.003-1.030 </td> </tr> <tr> <td>UA [...] <entry > <organizer moodCode="EVN" classCode="BATTERY"> <templateId root= "2.16.840.1.433692.10.20.22.4.1" /> <id nullFlavor="NA" /> <code codeSystem="local" code="PREGU" displayName="UR TEST" /> < statusCode code="completed" /> <component> <observation moodCode= "EVN" classCode="OBS"> <templateId root="2.16.840.1.634451.10.20.22.4.2 " /> <id nullFlavor="NA" /> <code codeSystem="local" code= "PREGU" displayName="UR TEST" /> <statusCode code="completed " /> <effectiveTime value="574868866509" /> <value unit="" xsi :type="PQ" value="POSITIVE" /> <interpretationCode codeSystem="local" code="*" /> <referenceRange> <observationRange> <text>NEGATIVE</text> </observationRange> </referenceRange > </observation> </component> </organizer> </entry> <entry> <organizer moodCode="EVN" classCode="BATTERY"> <templateId root= "216.840.1.509151.10...4.1" /> <id nullFlavor="NA" /> <code codeSystem="local" code="UA" displayName="URINALYSIS, ROUTINE" /> < statusCode code="completed" /> <component> <observation moodCode= "EVN" classCode="OBS"> <templateId root="11.30.840.1.829160.08.03.22.4.2 " /> <id nullFlavor="NA" /> <code codeSystem="local" code= "LEUESU" displayName="UA LEUKOCYTE ESTERASE DIPSTICK" /> <statusCode code="completed" /> <effectiveTime value="366520613038" /> < value unit="" xsi:type="PQ" value="NEGATIVE" /> <referenceRange> <observationRange> <text>NEGATIVE</text> </ observationRange> </referenceRange> </observation> </ component> <component> <observation moodCode="EVN" classCode="OBS"> <templateId root="11.30.840.1.271478.08.03.22.4.2" /> <id nullFlavor="NA" /> <code codeSystem="local" code="NITRIU" displayName= "UA NITRITE DIPSTICK" /> <statusCode code="completed" /> < effectiveTime value="447442689940" /> <value unit="" xsi:type="PQ" value="NEGATIVE" /> <referenceRange> <observationRange> <text>NEGATIVE</text> </observationRange> </ referenceRange> </observation> </component> <component> <observation moodCode="EVN" classCode="OBS"> <templateId root= "216.840.1.393192...4.2" /> <id nullFlavor="NA" /> < code codeSystem="local" code="PROTEIU" displayName="UA PROTEIN DIPSTICK" /> <statusCode code="completed" /> <effectiveTime value= "521065116895" /> <value unit="" xsi:type="PQ" value="NEGATIVE" /> <referenceRange> <observationRange> <text>NEGATIVE </text> </observationRange> </referenceRange> </ observation> </component> <component> <observation moodCode= "EVN" classCode="OBS"> <templateId root="16.840.1.668777.10...4.2 " /> <id nullFlavor="NA" /> <code codeSystem="local" code= "DGLUU" displayName="UA GLUCOSE DIPSTICK" /> <statusCode code= "completed" /> <effectiveTime value="482614268253" /> <value unit="" xsi:type="PQ" value="NEGATIVE" /> <referenceRange> < observationRange> <text>NEGATIVE</text> </ observationRange> </referenceRange> </observation> </ component> <component> <observation moodCode="EVN" classCode="OBS"> <templateId root="16.840.1.271014.10..22.4.2" /> <id nullFlavor="NA" /> <code codeSystem="local" code="KETONU" displayName= "UA KETONE DIPSTICK" /> <statusCode code="completed" /> < effectiveTime value="462941584347" /> <value unit="" xsi:type="PQ" value="NEGATIVE" /> <referenceRange> <observationRange> <text>NEGATIVE</text> </observationRange> </ referenceRange> </observation> </component> <component> <observation moodCode="EVN" classCode="OBS"> <templateId root= "11.30.840.1.726761.22.4.2" /> <id nullFlavor="NA" /> < code codeSystem="local" code="UROBILU" displayName="UA UROBILINOGEN DIPSTICK" / > <statusCode code="completed" /> <effectiveTime value= "632954547337" /> <value unit="" xsi:type="PQ" value="NORMAL" /> <referenceRange> <observationRange> <text>NORMAL</ text> </observationRange> </referenceRange> </ observation> </component> <component> <observation moodCode= "EVN" classCode="OBS"> <templateId root="216.840.1.192719.08.03.22.4.2 " /> <id nullFlavor="NA" /> <code codeSystem="local" code= "BILU" displayName="UA BILIRUBIN DIPSTICK" /> <statusCode code= "completed" /> <effectiveTime value="308185169026" /> <value unit="" xsi:type="PQ" value="NEGATIVE" /> <referenceRange> < observationRange> <text>NEGATIVE</text> </ observationRange> </referenceRange> </observation> </ component> <component> <observation moodCode="EVN" classCode="OBS"> <templateId root="2.16.840.1.192116.08.03.22.4.2" /> <id nullFlavor="NA" /> <code codeSystem="local" code="ABDELRAHMAN" displayName="UA BLOOD DIPSTICK" /> <statusCode code="completed" /> < effectiveTime value="437519982205" /> <value unit="" xsi:type="PQ" value="NEGATIVE" /> <referenceRange> <observationRange> <text>NEGATIVE</text> </observationRange> </ referenceRange> </observation> </component> <component> <observation moodCode="EVN" classCode="OBS"> <templateId root= "16.840.1.779407.10..22.4.2" /> <id nullFlavor="NA" /> < code codeSystem="local" code="SPGRU" displayName="UA SPECIFIC GRAVITY" /> <statusCode code="completed" /> <effectiveTime value="503987001203 " /> <value unit="" xsi:type="PQ" value="1.007" /> < interpretationCode codeSystem="local" code="*" /> <referenceRange> <observationRange> <text>1.015-1.025</text> </ observationRange> </referenceRange> </observation> </ component> <component> <observation moodCode="EVN" classCode="OBS"> <templateId root="11.30.840.1.636075.08.03.22.4.2" /> <id nullFlavor="NA" /> <code codeSystem="local" code="COLTON" displayName="UR PH" /> <statusCode code="completed" /> <effectiveTime value= "327368792742" /> <value unit="" xsi:type="PQ" value="5.0" /> <referenceRange> <observationRange> <text>5.0-7.0</text > </observationRange> </referenceRange> </observation > </component> </organizer> </entry> <entry> <organizer moodCode= "EVN" classCode="BATTERY"> <templateId root="16.840.1.381267.10..22.4.1 " /> <id nullFlavor="NA" /> <code codeSystem="local" code="UA" displayName="URINALYSIS, ROUTINE" /> <statusCode code="completed" /> < component> <observation moodCode="EVN" classCode="OBS"> < templateId root="11.30.840.1.656499.10..22.4.2" /> <id nullFlavor="NA " /> <code codeSystem="local" code="LEUESU" displayName="UA LEUKOCYTE ESTERASE DIPSTICK" /> <statusCode code="completed" /> < effectiveTime value="" /> <value unit="" xsi:type="PQ" value="1+" /> <interpretationCode codeSystem="local" code="*" /> <referenceRange> <observationRange> <text>NEGATIVE</ text> </observationRange> </referenceRange> </ observation> </component> <component> <observation moodCode= "EVN" classCode="OBS"> <templateId root="11.30.840.1.818464.10.4.2 " /> <id nullFlavor="NA" /> <code codeSystem="local" code= "NITRIU" displayName="UA NITRITE DIPSTICK" /> <statusCode code= "completed" /> <effectiveTime value="" /> <value unit="" xsi:type="PQ" value="NEGATIVE" /> <referenceRange> < observationRange> <text>NEGATIVE</text> </ observationRange> </referenceRange> </observation> </ component> <component> <observation moodCode="EVN" classCode="OBS"> <templateId root="11.30.840.1.865558.10..4.2" /> <id nullFlavor="NA" /> <code codeSystem="local" code="PROTEIU" displayName= "UA PROTEIN DIPSTICK" /> <statusCode code="completed" /> < effectiveTime value="" /> <value unit="" xsi:type="PQ" value="TRACE" /> <interpretationCode codeSystem="local" code="*" /> <referenceRange> <observationRange> <text> NEGATIVE</text> </observationRange> </referenceRange> </observation> </component> <component> <observation moodCode ="EVN" classCode="OBS"> <templateId root= "11.30.840.1.161653.10.4.2" /> <id nullFlavor="NA" /> < code codeSystem="local" code="DGLUU" displayName="UA GLUCOSE DIPSTICK" /> <statusCode code="completed" /> <effectiveTime value=" " /> <value unit="" xsi:type="PQ" value="NEGATIVE" /> < referenceRange> <observationRange> <text>NEGATIVE</text > </observationRange> </referenceRange> </observation > </component> <component> <observation moodCode="EVN" classCode="OBS"> <templateId root="11.30.840.1.968722.08.03.22.4.2" /> <id nullFlavor="NA" /> <code codeSystem="local" code="KETONU" displayName="UA KETONE DIPSTICK" /> <statusCode code="completed" /> <effectiveTime value="" /> <value unit="" xsi:type= "PQ" value="TRACE" /> <interpretationCode codeSystem="local" code="*" / > <referenceRange> <observationRange> <text> NEGATIVE</text> </observationRange> </referenceRange> </observation> </component> <component> <observation moodCode ="EVN" classCode="OBS"> <templateId root= "11.30.840.1.684163.08.03.22.4.2" /> <id nullFlavor="NA" /> < code codeSystem="local" code="UROBILU" displayName="UA UROBILINOGEN DIPSTICK" / > <statusCode code="completed" /> <effectiveTime value= "410848416244" /> <value unit="" xsi:type="PQ" value="NORMAL" /> <referenceRange> <observationRange> <text>NORMAL</ text> </observationRange> </referenceRange> </ observation> </component> <component> <observation moodCode= "EVN" classCode="OBS"> <templateId root="216.840.1.136340.10...4.2 " /> <id nullFlavor="NA" /> <code codeSystem="local" code= "BILU" displayName="UA BILIRUBIN DIPSTICK" /> <statusCode code= "completed" /> <effectiveTime value="868150109450" /> <value unit="" xsi:type="PQ" value="NEGATIVE" /> <referenceRange> < observationRange> <text>NEGATIVE</text> </ observationRange> </referenceRange> </observation> </ component> <component> <observation moodCode="EVN" classCode="OBS"> <templateId root="16.840.1.484195.10...4.2" /> <id nullFlavor="NA" /> <code codeSystem="local" code="ABDELRAHMAN" displayName="UA BLOOD DIPSTICK" /> <statusCode code="completed" /> < effectiveTime value="165756097861" /> <value unit="" xsi:type="PQ" value="4+" /> <interpretationCode codeSystem="local" code="*" /> <referenceRange> <observationRange> <text>NEGATIVE</ text> </observationRange> </referenceRange> </ observation> </component> <component> <observation moodCode= "EVN" classCode="OBS"> <templateId root="216.840.1.082877.10...4.2 " /> <id nullFlavor="NA" /> <code codeSystem="local" code= "SPGRU" displayName="UA SPECIFIC GRAVITY" /> <statusCode code= "completed" /> <effectiveTime value="" /> <value unit="" xsi:type="PQ" value="1.010" /> <interpretationCode codeSystem= "local" code="*" /> <referenceRange> <observationRange> <text>1.015-1.025</text> </observationRange> </ referenceRange> </observation> </component> <component> <observation moodCode="EVN" classCode="OBS"> <templateId root= "11.30.840.1.215519.08.03.22.4.2" /> <id nullFlavor="NA" /> < code codeSystem="local" code="COLTON" displayName="UR PH" /> <statusCode code="completed" /> <effectiveTime value="" /> < value unit="" xsi:type="PQ" value="7.0" /> <referenceRange> <observationRange> <text>5.0-7.0</text> </ observationRange> </referenceRange> </observation> </ component> </organizer> </entry> <entry> <organizer moodCode="EVN" classCode="BATTERY"> <templateId root="840.1.556452.08.03.22.4.1" /> <id nullFlavor="NA" /> <code codeSystem="local" code="UAMICRO" displayName="UA MICROSCOPIC" /> <statusCode code="completed" /> < component> <observation moodCode="EVN" classCode="OBS"> < templateId root="840.1.377273.22.4.2" /> <id nullFlavor="NA " /> <code codeSystem="local" code="EPIU" displayName="UA EPITHELIAL CELLS" /> <statusCode code="completed" /> <effectiveTime value ="246924755414" /> <value unit="epi/hpf" xsi:type="PQ" value="1+" /> <referenceRange> <observationRange> <text>0 - 1+ </text> </observationRange> </referenceRange> </ observation> </component> <component> <observation moodCode= "EVN" classCode="OBS"> <templateId root="216.840.1.576209.10..22.4.2 " /> <id nullFlavor="NA" /> <code codeSystem="local" code= "MUCUSU" displayName="UA MUCUS" /> <statusCode code="completed" /> <effectiveTime value="027651140944" /> <value unit="" xsi:type= "PQ" value="2+" /> <interpretationCode codeSystem="local" code="*" /> <referenceRange> <observationRange> <text>NEG TO 1+</text> </observationRange> </referenceRange> </ observation> </component> <component> <observation moodCode= "EVN" classCode="OBS"> <templateId root="216.840.1.007094.10..22.4.2 " /> <id nullFlavor="NA" /> <code codeSystem="local" code= "RBCU" displayName="UA RBC" /> <statusCode code="completed" /> <effectiveTime value="481490701989" /> <value unit="rbc/hpf" xsi:type ="PQ" value="PACKED FIELD" /> <interpretationCode codeSystem="local" code="*" /> <referenceRange> <observationRange> <text>0 - 3</text> </observationRange> </referenceRange> </observation> </component> <component> <observation moodCode="EVN" classCode="OBS"> <templateId root= "16.840.1.218784.10..22.4.2" /> <id nullFlavor="NA" /> < code codeSystem="local" code="UAVOL" displayName="UA VOLUME FOR EXAM" /> <statusCode code="completed" /> <effectiveTime value="134497780581" /> <value unit="mL" xsi:type="PQ" value="12.0" /> < referenceRange> <observationRange> <text>(12mL STD)</ text> </observationRange> </referenceRange> </ observation> </component> <component> <observation moodCode= "EVN" classCode="OBS"> <templateId root="11.30.840.1.270215.10..4.2 " /> <id nullFlavor="NA" /> <code codeSystem="local" code= "WBCU" displayName="UA WBC" /> <statusCode code="completed" /> <effectiveTime value="887208944966" /> <value unit="wbc/hpf" xsi:type ="PQ" value="2-5" /> <referenceRange> <observationRange> <text>0 - 5</text> </observationRange> </ referenceRange> </observation> </component> </organizer> </entry > <entry> <organizer moodCode="EVN" classCode="BATTERY"> <templateId root="16.840.1.814601.10..22.4.1" /> <id nullFlavor="NA" /> <code codeSystem="local" code="iCHEM8" displayName="CHEM/HEM PROFILE-BEDSIDE" /> <statusCode code="completed" /> <component> <observation moodCode= "EVN" classCode="OBS"> <templateId root="11.30.840.1.692953.08.03.22.4.2 " /> <id nullFlavor="NA" /> <code codeSystem="local" code="K" displayName="POTASSIUM" /> <statusCode code="completed" /> < effectiveTime value="" /> <value unit="mmol/L" xsi:type="PQ " value="3.8" /> <referenceRange> <observationRange> <text>3.5-5.3</text> </observationRange> </ referenceRange> </observation> </component> <component> <observation moodCode="EVN" classCode="OBS"> <templateId root= "216.840.1.577978.08.03.22.4.2" /> <id nullFlavor="NA" /> < code codeSystem="local" code="CMETHOD" displayName="METHOD" /> < statusCode code="completed" /> <effectiveTime value="" /> <value unit="" xsi:type="PQ" value="Bedside" /> < referenceRange> <observationRange> <text /> < /observationRange> </referenceRange> </observation> </ component> <component> <observation moodCode="EVN" classCode="OBS"> <templateId root="16.840.1.402957.08.03.22.4.2" /> <id nullFlavor="NA" /> <code codeSystem="local" code="GAP" displayName= "ANION GAP" /> <statusCode code="completed" /> <effectiveTime value="" /> <value unit="mmol/L" xsi:type="PQ" value="19" / > <referenceRange> <observationRange> <text>10- 20</text> </observationRange> </referenceRange> </ observation> </component> <component> <observation moodCode= "EVN" classCode="OBS"> <templateId root="216.840.1.146607.10..22.4.2 " /> <id nullFlavor="NA" /> <code codeSystem="local" code= "HMETHOD" displayName="METHOD" /> <statusCode code="completed" /> <effectiveTime value="" /> <value unit="" xsi:type="PQ " value="Bedside" /> <referenceRange> <observationRange> <text /> </observationRange> </referenceRange> </observation> </component> <component> <observation moodCode="EVN" classCode="OBS"> <templateId root= "16.840.1.920367...4.2" /> <id nullFlavor="NA" /> < code codeSystem="local" code="GLU" displayName="GLUCOSE" /> < statusCode code="completed" /> <effectiveTime value="" /> <value unit="mg/dL" xsi:type="PQ" value="83" /> < referenceRange> <observationRange> <text>70-99</text> </observationRange> </referenceRange> </observation> </component> <component> <observation moodCode="EVN" classCode= "OBS"> <templateId root="11.30.840.1.235631.1022.4.2" /> < id nullFlavor="NA" /> <code codeSystem="local" code="BUN" displayName= "BLOOD UREA NITROGEN" /> <statusCode code="completed" /> < effectiveTime value="" /> <value unit="mg/dL" xsi:type="PQ " value="8" /> <referenceRange> <observationRange> <text>7-20</text> </observationRange> </referenceRange > </observation> </component> <component> <observation moodCode="EVN" classCode="OBS"> <templateId root= "216.840.1.156016.10..4.2" /> <id nullFlavor="NA" /> < code codeSystem="local" code="CREAT" displayName="CREATININE" /> < statusCode code="completed" /> <effectiveTime value="" /> <value unit="mg/dL" xsi:type="PQ" value="0.7" /> < referenceRange> <observationRange> <text>0.6-1.0</text> </observationRange> </referenceRange> </observation > </component> <component> <observation moodCode="EVN" classCode="OBS"> <templateId root="11.30.840.1.825437.08.03.22.4.2" /> <id nullFlavor="NA" /> <code codeSystem="local" code="HGBT" displayName="HEMOGLOBIN" /> <statusCode code="completed" /> < effectiveTime value="" /> <value unit="gm/dL" xsi:type="PQ " value="13.9" /> <referenceRange> <observationRange> <text>12.0-16.0</text> </observationRange> </ referenceRange> </observation> </component> <component> <observation moodCode="EVN" classCode="OBS"> <templateId root= "16.840.1.042107...4.2" /> <id nullFlavor="NA" /> < code codeSystem="local" code="HCTT" displayName="HEMATOCRIT" /> < statusCode code="completed" /> <effectiveTime value="" /> <value unit="%" xsi:type="PQ" value="41.0" /> < referenceRange> <observationRange> <text>37.0-47.0</text > </observationRange> </referenceRange> </observation > </component> <component> <observation moodCode="EVN" classCode="OBS"> <templateId root="216.840.1.543120.10...4.2" /> <id nullFlavor="NA" /> <code codeSystem="local" code="NA" displayName="SODIUM" /> <statusCode code="completed" /> < effectiveTime value="" /> <value unit="mmol/L" xsi:type="PQ " value="139" /> <referenceRange> <observationRange> <text>135-148</text> </observationRange> </ referenceRange> </observation> </component> <component> <observation moodCode="EVN" classCode="OBS"> <templateId root= "16.840.1.679872.10..4.2" /> <id nullFlavor="NA" /> < code codeSystem="local" code="CL" displayName="CHLORIDE" /> < statusCode code="completed" /> <effectiveTime value="" /> <value unit="mmol/L" xsi:type="PQ" value="104" /> < referenceRange> <observationRange> <text>98-110</text> </observationRange> </referenceRange> </observation> </component> <component> <observation moodCode="EVN" classCode ="OBS"> <templateId root="16.840.1.733325.10..4.2" /> < id nullFlavor="NA" /> <code codeSystem="local" code="CO2" displayName= "CARBON DIOXIDE" /> <statusCode code="completed" /> < effectiveTime value="511469126756" /> <value unit="mmol/L" xsi:type="PQ " value="21" /> <referenceRange> <observationRange> <text>21-32</text> </observationRange> </ referenceRange> </observation> </component> <component> <observation moodCode="EVN" classCode="OBS"> <templateId root= "11.30.840.1.161896.08.03.22.4.2" /> <id nullFlavor="NA" /> < code codeSystem="local" code="CAION" displayName="CALCIUM IONIZED" /> < statusCode code="completed" /> <effectiveTime value="" /> <value unit="mg/dL" xsi:type="PQ" value="4.7" /> < referenceRange> <observationRange> <text>4.5-5.3</text> </observationRange> </referenceRange> </observation > </component> </organizer> </entry> <entry> <organizer moodCode= "EVN" classCode="BATTERY"> <templateId root="11.30.840.1.514603.08.03.22.4.1 " /> <id nullFlavor="NA" /> <code codeSystem="local" code="HCGQNT" displayName="HCG QUANT INTACT" /> <statusCode code="completed" /> < component> <observation moodCode="EVN" classCode="OBS"> < templateId root="11.30.840.1.046953.10.4.2" /> <id nullFlavor="NA " /> <code codeSystem="local" code="HCGQNT" displayName="HCG QUANT INTACT" /> <statusCode code="completed" /> <effectiveTime value="" /> <value unit="mIU/mL" xsi:type="PQ" value="3906 " /> <interpretationCode codeSystem="local" code="*" /> < referenceRange> <observationRange> <text /> < /observationRange> </referenceRange> </observation> </ component> </organizer> </entry> <entry> <organizer moodCode="EVN" classCode="BATTERY"> <templateId root="16.840.1.087301.10..22.4.1" /> <id nullFlavor="NA" /> <code codeSystem="local" code="Z6406" displayName="Cytogenetics" /> <statusCode code="completed" /> < component> <observation moodCode="EVN" classCode="OBS"> < templateId root="216.840.1.765668.10...4.2" /> <id nullFlavor="NA " /> <code codeSystem="local" code="Z6406" displayName="Cytogenetics" / > <statusCode code="completed" /> <effectiveTime value= "736391815670" /> <value unit="" xsi:type="PQ" value="SEE IMAGE" /> <referenceRange> <observationRange> <text /> </observationRange> </referenceRange> </observation> </component> <component> <observation moodCode="EVN" classCode= "OBS"> <templateId root="11.30.840.1.505072.10.4.2" /> < id nullFlavor="NA" /> <code codeSystem="local" code="Z6406" displayName ="Cytogenetics" /> <statusCode code="completed" /> < effectiveTime value="239597503628" /> <value unit="NA" xsi:type="PQ" value="SEE IMAGE" /> <referenceRange> <observationRange> <text /> </observationRange> </referenceRange> </observation> </component> </organizer> </entry> <entry> < organizer moodCode="EVN" classCode="BATTERY"> <templateId root= "2.16.840.1.982933.10..22.4.1" /> <id nullFlavor="NA" /> <code codeSystem="local" code="CBCWD" displayName="CBC With Platelet and Differential " /> <statusCode code="completed" /> <component> <observation moodCode="EVN" classCode="OBS"> <templateId root= "2.16.840.1.484110.10..22.4.2" /> <id nullFlavor="NA" /> < code codeSystem="local" code="ABASR" displayName="Absolute Basophils" /> <statusCode code="completed" /> <effectiveTime value="824305617216" /> <value unit="10*3" xsi:type="PQ" value="0.03" /> < referenceRange> <observationRange> <text>0.00-0.20</text > </observationRange> </referenceRange> </observation > </component> <component> <observation moodCode="EVN" classCode="OBS"> <templateId root="2.16.840.1.658936.10..22.4.2" /> <id nullFlavor="NA" /> <code codeSystem="local" code="AEOSR" displayName="Absolute Eosinophils" /> <statusCode code="completed" /> <effectiveTime value="361757017958" /> <value unit="10*3" xsi: type="PQ" value="0.71" /> <interpretationCode codeSystem="local" code= "*" /> <referenceRange> <observationRange> < text>0.00-0.50</text> </observationRange> </referenceRange> </observation> </component> <component> <observation moodCode="EVN" classCode="OBS"> <templateId root= "16.840.1.012394.10.22.4.2" /> <id nullFlavor="NA" /> < code codeSystem="local" code="ALYMR" displayName="Absolute Lymphocytes" /> <statusCode code="completed" /> <effectiveTime value=" " /> <value unit="10*3" xsi:type="PQ" value="2.35" /> < referenceRange> <observationRange> <text>0.80-3.30</text > </observationRange> </referenceRange> </observation > </component> <component> <observation moodCode="EVN" classCode="OBS"> <templateId root="16.840.1.436490.10.4.2" /> <id nullFlavor="NA" /> <code codeSystem="local" code="AMONR" displayName="Absolute Monocytes" /> <statusCode code="completed" /> <effectiveTime value="" /> <value unit="10*3" xsi: type="PQ" value="0.41" /> <referenceRange> <observationRange > <text>0.30-1.00</text> </observationRange> </ referenceRange> </observation> </component> <component> <observation moodCode="EVN" classCode="OBS"> <templateId root= "11.30.840.1.868413.10.22.4.2" /> <id nullFlavor="NA" /> < code codeSystem="local" code="ASEGR" displayName="Absolute Neutrophils" /> <statusCode code="completed" /> <effectiveTime value=" " /> <value unit="10*3" xsi:type="PQ" value="3.37" /> < referenceRange> <observationRange> <text>1.90-7.00</text > </observationRange> </referenceRange> </observation > </component> <component> <observation moodCode="EVN" classCode="OBS"> <templateId root="16.840.1.524462.10.20.22.4.2" /> <id nullFlavor="NA" /> <code codeSystem="local" code="BASOR" displayName="Basophils" /> <statusCode code="completed" /> < effectiveTime value="322584603504" /> <value unit="%" xsi:type="PQ " value="0" /> <referenceRange> <observationRange> <text>0-2</text> </observationRange> </referenceRange> </observation> </component> <component> <observation moodCode="EVN" classCode="OBS"> <templateId root= "11.30.840.1.949664.10.22.4.2" /> <id nullFlavor="NA" /> < code codeSystem="local" code="EOSR" displayName="Eosinophils" /> < statusCode code="completed" /> <effectiveTime value="998979961145" /> <value unit="%" xsi:type="PQ" value="10" /> < interpretationCode codeSystem="local" code="*" /> <referenceRange> <observationRange> <text>0-4</text> </ observationRange> </referenceRange> </observation> </ component> <component> <observation moodCode="EVN" classCode="OBS"> <templateId root="11.30.840.1.119478.10.20.22.4.2" /> <id nullFlavor="NA" /> <code codeSystem="local" code="HCT" displayName="HCT " /> <statusCode code="completed" /> <effectiveTime value= "007987852153" /> <value unit="%" xsi:type="PQ" value="33.8" /> <interpretationCode codeSystem="local" code="*" /> < referenceRange> <observationRange> <text>37.0-47.0</text > </observationRange> </referenceRange> </observation > </component> <component> <observation moodCode="EVN" classCode="OBS"> <templateId root="2.16.840.1.645360.10.20.22.4.2" /> <id nullFlavor="NA" /> <code codeSystem="local" code="HGB" displayName="HGB" /> <statusCode code="completed" /> < effectiveTime value="497066358545" /> <value unit="g/dL" xsi:type="PQ" value="11.2" /> <interpretationCode codeSystem="local" code="*" /> <referenceRange> <observationRange> <text>12.0- 16.0</text> </observationRange> </referenceRange> </ observation> </component> <component> <observation moodCode= "EVN" classCode="OBS"> <templateId root="2.16.840.1.009787.10.20.22.4.2 " /> <id nullFlavor="NA" /> <code codeSystem="local" code= "IMGA" displayName="Immature Granulocytes" /> <statusCode code= "completed" /> <effectiveTime value="725428042042" /> <value unit="%" xsi:type="PQ" value="0.1" /> <referenceRange> < observationRange> <text>0.0-1.0</text> </ observationRange> </referenceRange> </observation> </ component> <component> <observation moodCode="EVN" classCode="OBS"> <templateId root="216.840.1.512343.10..22.4.2" /> <id nullFlavor="NA" /> <code codeSystem="local" code="LYMPR" displayName= "Lymphocytes" /> <statusCode code="completed" /> < effectiveTime value="411583002316" /> <value unit="%" xsi:type="PQ " value="34" /> <referenceRange> <observationRange> <text>20-46</text> </observationRange> </ referenceRange> </observation> </component> <component> <observation moodCode="EVN" classCode="OBS"> <templateId root= "11.30.840.1.111975.10..4.2" /> <id nullFlavor="NA" /> < code codeSystem="local" code="MCH" displayName="MCH" /> <statusCode code="completed" /> <effectiveTime value="457623038644" /> < value unit="pg" xsi:type="PQ" value="30.6" /> <referenceRange> <observationRange> <text>27.0-32.0</text> </ observationRange> </referenceRange> </observation> </ component> <component> <observation moodCode="EVN" classCode="OBS"> <templateId root="11.30.840.1.457587.10.20.22.4.2" /> <id nullFlavor="NA" /> <code codeSystem="local" code="MCHC" displayName= "MCHC" /> <statusCode code="completed" /> <effectiveTime value ="883456817612" /> <value unit="g/dL" xsi:type="PQ" value="33.1" /> <referenceRange> <observationRange> <text>32.0- 36.0</text> </observationRange> </referenceRange> </ observation> </component> <component> <observation moodCode= "EVN" classCode="OBS"> <templateId root="16.840.1.887597.10...4.2 " /> <id nullFlavor="NA" /> <code codeSystem="local" code="MCV " displayName="MCV" /> <statusCode code="completed" /> < effectiveTime value="761718260451" /> <value unit="fL" xsi:type="PQ" value="92.3" /> <referenceRange> <observationRange> <text>82.0-99.0</text> </observationRange> </ referenceRange> </observation> </component> <component> <observation moodCode="EVN" classCode="OBS"> <templateId root= "11.30.840.1.732127.08.03.22.4.2" /> <id nullFlavor="NA" /> < code codeSystem="local" code="MONOR" displayName="Monocytes" /> < statusCode code="completed" /> <effectiveTime value="233268436653" /> <value unit="%" xsi:type="PQ" value="6" /> <referenceRange > <observationRange> <text>4-11</text> </ observationRange> </referenceRange> </observation> </ component> <component> <observation moodCode="EVN" classCode="OBS"> <templateId root="11.30.840.1.059523....4.2" /> <id nullFlavor="NA" /> <code codeSystem="local" code="MPV" displayName="MPV " /> <statusCode code="completed" /> <effectiveTime value= "707803738860" /> <value unit="fL" xsi:type="PQ" value="9.9" /> <referenceRange> <observationRange> <text>9.4-12.4</ text> </observationRange> </referenceRange> </ observation> </component> <component> <observation moodCode= "EVN" classCode="OBS"> <templateId root="216.840.1.519330.10..4.2 " /> <id nullFlavor="NA" /> <code codeSystem="local" code= "SEGR" displayName="Neutrophils" /> <statusCode code="completed" /> <effectiveTime value="568317464166" /> <value unit="%" xsi: type="PQ" value="49" /> <interpretationCode codeSystem="local" code="* " /> <referenceRange> <observationRange> <text> 51-75</text> </observationRange> </referenceRange> </ observation> </component> <component> <observation moodCode= "EVN" classCode="OBS"> <templateId root="11.30.840.1.981676.08.03.22.4.2 " /> <id nullFlavor="NA" /> <code codeSystem="local" code="PLT " displayName="Platelet Count" /> <statusCode code="completed" /> <effectiveTime value="743585954487" /> <value unit="K/uL" xsi:type ="PQ" value="308" /> <referenceRange> <observationRange> <text>150-400</text> </observationRange> </ referenceRange> </observation> </component> <component> <observation moodCode="EVN" classCode="OBS"> <templateId root= "16.840.1.749488.10.22.4.2" /> <id nullFlavor="NA" /> < code codeSystem="local" code="RBC" displayName="RBC" /> <statusCode code="completed" /> <effectiveTime value="098021515014" /> < value unit="10*6/uL" xsi:type="PQ" value="3.66" /> <interpretationCode codeSystem="local" code="*" /> <referenceRange> < observationRange> <text>4.00-5.20</text> </ observationRange> </referenceRange> </observation> </ component> <component> <observation moodCode="EVN" classCode="OBS"> <templateId root="2.16.840.1.622506....4.2" /> <id nullFlavor="NA" /> <code codeSystem="local" code="RDW" displayName="RDW " /> <statusCode code="completed" /> <effectiveTime value= "122790796256" /> <value unit="%" xsi:type="PQ" value="12.8" /> <referenceRange> <observationRange> <text>11.5- 14.5</text> </observationRange> </referenceRange> </ observation> </component> <component> <observation moodCode= "EVN" classCode="OBS"> <templateId root="2.16.840.1.734588....4.2 " /> <id nullFlavor="NA" /> <code codeSystem="local" code= "WBCIR" displayName="WBC" /> <statusCode code="completed" /> < effectiveTime value="343580201890" /> <value unit="K/uL" xsi:type="PQ" value="6.9" /> <referenceRange> <observationRange> <text>4.8-10.8</text> </observationRange> </ referenceRange> </observation> </component> </organizer> </entry > <entry> <organizer moodCode="EVN" classCode="BATTERY"> <templateId root="216.840.1.122019.10..4.1" /> <id nullFlavor="NA" /> <code codeSystem="local" code="HCGQ" displayName="HCG Quantitative" /> < statusCode code="completed" /> <component> <observation moodCode= "EVN" classCode="OBS"> <templateId root="11.30.840.1.839942.08.03.22.4.2 " /> <id nullFlavor="NA" /> <code codeSystem="local" code= "HCGQ" displayName="HCG Quantitative" /> <statusCode code="completed" / > <effectiveTime value="089834077151" /> <value unit="mIU/mL" xsi:type="PQ" value="1174" /> <referenceRange> < observationRange> <text /> </observationRange> </referenceRange> </observation> </component> </organizer> </ entry> <entry> <organizer moodCode="EVN" classCode="BATTERY"> < templateId root="11.30.840.1.127627.08.03.22.4.1" /> <id nullFlavor="NA" /> <code codeSystem="local" code="PTPTT" displayName="PTT/PT (INR)" /> < statusCode code="completed" /> <component> <observation moodCode= "EVN" classCode="OBS"> <templateId root="11.30.840.1.269680.08.03.22.4.2 " /> <id nullFlavor="NA" /> <code codeSystem="local" code="INR " displayName="INR" /> <statusCode code="completed" /> < effectiveTime value="910085789687" /> <value unit="NA" xsi:type="PQ" value="1.1" /> <referenceRange> <observationRange> <text>0.9-1.2</text> </observationRange> </ referenceRange> </observation> </component> <component> <observation moodCode="EVN" classCode="OBS"> <templateId root= "216.840.1.203965.1022.4.2" /> <id nullFlavor="NA" /> < code codeSystem="local" code="PTT" displayName="PTT" /> <statusCode code="completed" /> <effectiveTime value="972543860311" /> < value unit="seconds" xsi:type="PQ" value="30.9" /> <referenceRange> <observationRange> <text>25.0-35.0</text> </ observationRange> </referenceRange> </observation> </ component> </organizer> </entry> <entry> <organizer moodCode="EVN" classCode="BATTERY"> <templateId root="11.30.840.1.854239.08.03.22.4.1" /> <id nullFlavor="NA" /> <code codeSystem="local" code="CBCND" displayName="CBC With Platelet No Differential" /> <statusCode code= "completed" /> <component> <observation moodCode="EVN" classCode= "OBS"> <templateId root="16.840.1.336592.1022.4.2" /> < id nullFlavor="NA" /> <code codeSystem="local" code="HCT" displayName= "HCT" /> <statusCode code="completed" /> <effectiveTime value= "932401530250" /> <value unit="%" xsi:type="PQ" value="29.3" /> <interpretationCode codeSystem="local" code="*" /> < referenceRange> <observationRange> <text>37.0-47.0</text > </observationRange> </referenceRange> </observation > </component> <component> <observation moodCode="EVN" classCode="OBS"> <templateId root="11.30.840.1.174614.10.20.22.4.2" /> <id nullFlavor="NA" /> <code codeSystem="local" code="HGB" displayName="HGB" /> <statusCode code="completed" /> < effectiveTime value="" /> <value unit="g/dL" xsi:type="PQ" value="9.5" /> <interpretationCode codeSystem="local" code="*" /> <referenceRange> <observationRange> <text>12.0-16.0 </text> </observationRange> </referenceRange> </ observation> </component> <component> <observation moodCode= "EVN" classCode="OBS"> <templateId root="11.30.840.1.130629...4.2 " /> <id nullFlavor="NA" /> <code codeSystem="local" code="MCH " displayName="MCH" /> <statusCode code="completed" /> < effectiveTime value="" /> <value unit="pg" xsi:type="PQ" value="30.5" /> <referenceRange> <observationRange> <text>27.0-32.0</text> </observationRange> </ referenceRange> </observation> </component> <component> <observation moodCode="EVN" classCode="OBS"> <templateId root= "11.30.840.1.413462.10.20..4.2" /> <id nullFlavor="NA" /> < code codeSystem="local" code="MCHC" displayName="MCHC" /> <statusCode code="completed" /> <effectiveTime value="" /> < value unit="g/dL" xsi:type="PQ" value="32.4" /> <referenceRange> <observationRange> <text>32.0-36.0</text> </ observationRange> </referenceRange> </observation> </ component> <component> <observation moodCode="EVN" classCode="OBS"> <templateId root="216.840.1.005778.10.20.22.4.2" /> <id nullFlavor="NA" /> <code codeSystem="local" code="MCV" displayName="MCV " /> <statusCode code="completed" /> <effectiveTime value= "" /> <value unit="fL" xsi:type="PQ" value="94.2" /> <referenceRange> <observationRange> <text>82.0-99.0< /text> </observationRange> </referenceRange> </ observation> </component> <component> <observation moodCode= "EVN" classCode="OBS"> <templateId root="16.840.1.924034.10.20.22.4.2 " /> <id nullFlavor="NA" /> <code codeSystem="local" code="MPV " displayName="MPV" /> <statusCode code="completed" /> < effectiveTime value="" /> <value unit="fL" xsi:type="PQ" value="9.4" /> <referenceRange> <observationRange> <text>9.4-12.4</text> </observationRange> </ referenceRange> </observation> </component> <component> <observation moodCode="EVN" classCode="OBS"> <templateId root= "216.840.1.841197.22.4.2" /> <id nullFlavor="NA" /> < code codeSystem="local" code="PLT" displayName="Platelet Count" /> < statusCode code="completed" /> <effectiveTime value="" /> <value unit="K/uL" xsi:type="PQ" value="239" /> < referenceRange> <observationRange> <text>150-400</text> </observationRange> </referenceRange> </observation > </component> <component> <observation moodCode="EVN" classCode="OBS"> <templateId root="216.840.1.240762.22.4.2" /> <id nullFlavor="NA" /> <code codeSystem="local" code="RBC" displayName="RBC" /> <statusCode code="completed" /> < effectiveTime value="" /> <value unit="10*6/uL" xsi:type= "PQ" value="3.11" /> <interpretationCode codeSystem="local" code="*" / > <referenceRange> <observationRange> <text> 4.00-5.20</text> </observationRange> </referenceRange> </observation> </component> <component> <observation moodCode="EVN" classCode="OBS"> <templateId root= "16.840.1.465801.1022.4.2" /> <id nullFlavor="NA" /> < code codeSystem="local" code="RDW" displayName="RDW" /> <statusCode code="completed" /> <effectiveTime value="677946610484" /> < value unit="%" xsi:type="PQ" value="12.9" /> <referenceRange> <observationRange> <text>11.5-14.5</text> </ observationRange> </referenceRange> </observation> </ component> <component> <observation moodCode="EVN" classCode="OBS"> <templateId root="2.16.840.1.955481.10..4.2" /> <id nullFlavor="NA" /> <code codeSystem="local" code="WBCIR" displayName= "WBC" /> <statusCode code="completed" /> <effectiveTime value= "437461017791" /> <value unit="K/uL" xsi:type="PQ" value="5.4" /> <referenceRange> <observationRange> <text>4.8-10.8< /text> </observationRange> </referenceRange> </ observation> </component> </organizer> </entry> <entry> <organizer moodCode="EVN" classCode="BATTERY"> <templateId root= "2.16.840.1.562879.10..22.4.1" /> <id nullFlavor="NA" /> <code codeSystem="local" code="CBCND" displayName="CBC With Platelet No Differential" /> <statusCode code="completed" /> <component> <observation moodCode="EVN" classCode="OBS"> <templateId root= "2.16.840.1.928880.10..22.4.2" /> <id nullFlavor="NA" /> < code codeSystem="local" code="HCT" displayName="HCT" /> <statusCode code="completed" /> <effectiveTime value="802354294443" /> < value unit="%" xsi:type="PQ" value="28.9" /> <interpretationCode codeSystem="local" code="*" /> <referenceRange> < observationRange> <text>37.0-47.0</text> </ observationRange> </referenceRange> </observation> </ component> <component> <observation moodCode="EVN" classCode="OBS"> <templateId root="2.16.840.1.071750.10...4.2" /> <id nullFlavor="NA" /> <code codeSystem="local" code="HGB" displayName="HGB " /> <statusCode code="completed" /> <effectiveTime value= "" /> <value unit="g/dL" xsi:type="PQ" value="9.4" /> <interpretationCode codeSystem="local" code="*" /> <referenceRange > <observationRange> <text>12.0-16.0</text> < /observationRange> </referenceRange> </observation> </ component> <component> <observation moodCode="EVN" classCode="OBS"> <templateId root="216.840.1.879163.08.03.22.4.2" /> <id nullFlavor="NA" /> <code codeSystem="local" code="MCH" displayName="MCH " /> <statusCode code="completed" /> <effectiveTime value= "" /> <value unit="pg" xsi:type="PQ" value="30.4" /> <referenceRange> <observationRange> <text>27.0-32.0< /text> </observationRange> </referenceRange> </ observation> </component> <component> <observation moodCode= "EVN" classCode="OBS"> <templateId root="2.16.840.1.255908.10...4.2 " /> <id nullFlavor="NA" /> <code codeSystem="local" code= "MCHC" displayName="MCHC" /> <statusCode code="completed" /> < effectiveTime value="" /> <value unit="g/dL" xsi:type="PQ" value="32.5" /> <referenceRange> <observationRange> <text>32.0-36.0</text> </observationRange> </ referenceRange> </observation> </component> <component> <observation moodCode="EVN" classCode="OBS"> <templateId root= "216.840.1.077483.10.22.4.2" /> <id nullFlavor="NA" /> < code codeSystem="local" code="MCV" displayName="MCV" /> <statusCode code="completed" /> <effectiveTime value="" /> < value unit="fL" xsi:type="PQ" value="93.5" /> <referenceRange> <observationRange> <text>82.0-99.0</text> </ observationRange> </referenceRange> </observation> </ component> <component> <observation moodCode="EVN" classCode="OBS"> <templateId root="11.30.840.1.018256...4.2" /> <id nullFlavor="NA" /> <code codeSystem="local" code="MPV" displayName="MPV " /> <statusCode code="completed" /> <effectiveTime value= "" /> <value unit="fL" xsi:type="PQ" value="9.7" /> <referenceRange> <observationRange> <text>9.4-12.4</ text> </observationRange> </referenceRange> </ observation> </component> <component> <observation moodCode= "EVN" classCode="OBS"> <templateId root="16.840.1.836477.10.2022.4.2 " /> <id nullFlavor="NA" /> <code codeSystem="local" code="PLT " displayName="Platelet Count" /> <statusCode code="completed" /> <effectiveTime value="" /> <value unit="K/uL" xsi:type ="PQ" value="225" /> <referenceRange> <observationRange> <text>150-400</text> </observationRange> </ referenceRange> </observation> </component> <component> <observation moodCode="EVN" classCode="OBS"> <templateId root= "216.840.1.661596.10.20.22.4.2" /> <id nullFlavor="NA" /> < code codeSystem="local" code="RBC" displayName="RBC" /> <statusCode code="completed" /> <effectiveTime value="" /> < value unit="10*6/uL" xsi:type="PQ" value="3.09" /> <interpretationCode codeSystem="local" code="*" /> <referenceRange> < observationRange> <text>4.00-5.20</text> </ observationRange> </referenceRange> </observation> </ component> <component> <observation moodCode="EVN" classCode="OBS"> <templateId root="216.840.1.095792.10.20.22.4.2" /> <id nullFlavor="NA" /> <code codeSystem="local" code="RDW" displayName="RDW " /> <statusCode code="completed" /> <effectiveTime value= "" /> <value unit="%" xsi:type="PQ" value="12.6" /> <referenceRange> <observationRange> <text>11.5- 14.5</text> </observationRange> </referenceRange> </ observation> </component> <component> <observation moodCode= "EVN" classCode="OBS"> <templateId root="11.30.840.1.423052.10..22.4.2 " /> <id nullFlavor="NA" /> <code codeSystem="local" code= "WBCIR" displayName="WBC" /> <statusCode code="completed" /> < effectiveTime value="713878489897" /> <value unit="K/uL" xsi:type="PQ" value="5.0" /> <referenceRange> <observationRange> <text>4.8-10.8</text> </observationRange> </ referenceRange> </observation> </component> </organizer> </entry > <entry> <organizer moodCode="EVN" classCode="BATTERY"> <templateId root="11.30.840.1.481519.10..22.4.1" /> <id nullFlavor="NA" /> <code codeSystem="local" code="GLUN" displayName="Glucose NPT" /> <statusCode code="completed" /> <component> <observation moodCode="EVN" classCode="OBS"> <templateId root="11.30.840.1.130453.10..22.4.2" /> <id nullFlavor="NA" /> <code codeSystem="local" code="GLUN" displayName="Glucose NPT" /> <statusCode code="completed" /> <effectiveTime value="115881267590" /> <value unit="mg/dL" xsi:type="PQ " value="84" /> <referenceRange> <observationRange> <text>70-100</text> </observationRange> </ referenceRange> </observation> </component> </organizer> </entry > <entry> <organizer moodCode="EVN" classCode="BATTERY"> <templateId root="11.30.840.1.263865..4.1" /> <id nullFlavor="NA" /> <code codeSystem="local" code="BMP" displayName="Basic Metabolic Panel (BMP)" /> <statusCode code="completed" /> <component> <observation moodCode= "EVN" classCode="OBS"> <templateId root="840.1.606186.08.03.22.4.2 " /> <id nullFlavor="NA" /> <code codeSystem="local" code= "AGAP" displayName="Anion Gap" /> <statusCode code="completed" /> <effectiveTime value="622187927085" /> <value unit="NA" xsi:type= "PQ" value="9" /> <referenceRange> <observationRange> <text>3-20</text> </observationRange> </ referenceRange> </observation> </component> <component> <observation moodCode="EVN" classCode="OBS"> <templateId root= "840.1.116602.08.03.22.4.2" /> <id nullFlavor="NA" /> < code codeSystem="local" code="BUN" displayName="BUN" /> <statusCode code="completed" /> <effectiveTime value="402305828807" /> < value unit="mg/dL" xsi:type="PQ" value="8" /> <referenceRange> <observationRange> <text>4-20</text> </ observationRange> </referenceRange> </observation> </ component> <component> <observation moodCode="EVN" classCode="OBS"> <templateId root="840.1.985502.08.03.22.4.2" /> <id nullFlavor="NA" /> <code codeSystem="local" code="CA" displayName= "Calcium" /> <statusCode code="completed" /> <effectiveTime value="322087185869" /> <value unit="mg/dL" xsi:type="PQ" value="8.8" / > <referenceRange> <observationRange> <text>8.6 -10.0</text> </observationRange> </referenceRange> </ observation> </component> <component> <observation moodCode= "EVN" classCode="OBS"> <templateId root="16.840.1.526521.22.4.2 " /> <id nullFlavor="NA" /> <code codeSystem="local" code="CL " displayName="Chloride" /> <statusCode code="completed" /> < effectiveTime value="839606150086" /> <value unit="mEq/L" xsi:type="PQ " value="108" /> <referenceRange> <observationRange> <text>99-109</text> </observationRange> </ referenceRange> </observation> </component> <component> <observation moodCode="EVN" classCode="OBS"> <templateId root= "11.30.840.1.591122.08.03.22.4.2" /> <id nullFlavor="NA" /> < code codeSystem="local" code="CO2" displayName="CO2" /> <statusCode code="completed" /> <effectiveTime value="723128697297" /> < value unit="mEq/L" xsi:type="PQ" value="22" /> <referenceRange> <observationRange> <text>22-32</text> </ observationRange> </referenceRange> </observation> </ component> <component> <observation moodCode="EVN" classCode="OBS"> <templateId root="16.840.1.010041..2022.4.2" /> <id nullFlavor="NA" /> <code codeSystem="local" code="CREAT" displayName= "Creatinine" /> <statusCode code="completed" /> < effectiveTime value="599735534212" /> <value unit="mg/dL" xsi:type="PQ " value="0.77" /> <referenceRange> <observationRange> <text>0.44-1.03</text> </observationRange> </ referenceRange> </observation> </component> <component> <observation moodCode="EVN" classCode="OBS"> <templateId root= "216.840.1.030293.10.20.22.4.2" /> <id nullFlavor="NA" /> < code codeSystem="local" code="GLU" displayName="Glucose" /> < statusCode code="completed" /> <effectiveTime value="758687974601" /> <value unit="mg/dL" xsi:type="PQ" value="104" /> < interpretationCode codeSystem="local" code="*" /> <referenceRange> <observationRange> <text>70-100</text> </ observationRange> </referenceRange> </observation> </ component> <component> <observation moodCode="EVN" classCode="OBS"> <templateId root="16.840.1.030990.10.20.22.4.2" /> <id nullFlavor="NA" /> <code codeSystem="local" code="K" displayName= "Potassium" /> <statusCode code="completed" /> <effectiveTime value="469276697896" /> <value unit="mEq/L" xsi:type="PQ" value="3.6" / > <referenceRange> <observationRange> <text>3.6 -5.1</text> </observationRange> </referenceRange> </ observation> </component> <component> <observation moodCode= "EVN" classCode="OBS"> <templateId root="16.840.1.198104.10.22.4.2 " /> <id nullFlavor="NA" /> <code codeSystem="local" code="NA " displayName="Sodium" /> <statusCode code="completed" /> < effectiveTime value="018096189766" /> <value unit="mEq/L" xsi:type="PQ " value="139" /> <referenceRange> <observationRange> <text>136-144</text> </observationRange> </ referenceRange> </observation> </component> </organizer> </entry > <entry> <organizer moodCode="EVN" classCode="BATTERY"> <templateId root="16.840.1.874008.08.03.22.4.1" /> <id nullFlavor="NA" /> <code codeSystem="local" code="GFR" displayName="eGFR" /> <statusCode code= "completed" /> <component> <observation moodCode="EVN" classCode= "OBS"> <templateId root="16.840.1.635218...4.2" /> < id nullFlavor="NA" /> <code codeSystem="local" code="GFR" displayName= "eGFR" /> <statusCode code="completed" /> <effectiveTime value ="222364680215" /> <value unit="NA" xsi:type="PQ" value=">60" /> <referenceRange> <observationRange> <text>>60< /text> </observationRange> </referenceRange> </ observation> </component> </organizer> </entry> <entry> <organizer moodCode="EVN" classCode="BATTERY"> <templateId root= "16.840.1.059001.22.4.1" /> <id nullFlavor="NA" /> <code codeSystem="local" code="UA" displayName="Urinalysis with reflex microscopic" / > <statusCode code="completed" /> <component> <observation moodCode="EVN" classCode="OBS"> <templateId root= "840.1.599737.10.4.2" /> <id nullFlavor="NA" /> < code codeSystem="local" code="UAPP" displayName="Appearance" /> < statusCode code="completed" /> <effectiveTime value="332421231112" /> <value unit="NA" xsi:type="PQ" value="Cloudy" /> < interpretationCode codeSystem="local" code="*" /> <referenceRange> <observationRange> <text /> </observationRange> </referenceRange> </observation> </component> < component> <observation moodCode="EVN" classCode="OBS"> < templateId root="840.1.917120.08.03.224.2" /> <id nullFlavor="NA " /> <code codeSystem="local" code="UBIL" displayName="Bilirubin" /> <statusCode code="completed" /> <effectiveTime value= "853363804982" /> <value unit="NA" xsi:type="PQ" value="Negative" /> <referenceRange> <observationRange> <text> Negative</text> </observationRange> </referenceRange> </observation> </component> <component> <observation moodCode ="EVN" classCode="OBS"> <templateId root= "840.1.409811.08.03.22.4.2" /> <id nullFlavor="NA" /> < code codeSystem="local" code="UBLD" displayName="Blood" /> <statusCode code="completed" /> <effectiveTime value="479972511372" /> < value unit="NA" xsi:type="PQ" value="Negative" /> <referenceRange> <observationRange> <text>Negative</text> </ observationRange> </referenceRange> </observation> </ component> <component> <observation moodCode="EVN" classCode="OBS"> <templateId root="11.30.840.1.343189.10.4.2" /> <id nullFlavor="NA" /> <code codeSystem="local" code="UCOLR" displayName= "Color" /> <statusCode code="completed" /> <effectiveTime value="" /> <value unit="NA" xsi:type="PQ" value="Yellow" / > <referenceRange> <observationRange> <text /> </observationRange> </referenceRange> </observation > </component> <component> <observation moodCode="EVN" classCode="OBS"> <templateId root="11.30.840.1.882585.08.03.22.4.2" /> <id nullFlavor="NA" /> <code codeSystem="local" code="UGLU" displayName="Glucose, Urine" /> <statusCode code="completed" /> <effectiveTime value="757224076764" /> <value unit="" xsi:type="PQ" value="Negative" /> <referenceRange> <observationRange> <text>Negative</text> </observationRange> </ referenceRange> </observation> </component> <component> <observation moodCode="EVN" classCode="OBS"> <templateId root= "11.30.840.1.266399...4.2" /> <id nullFlavor="NA" /> < code codeSystem="local" code="UKET" displayName="Ketones" /> < statusCode code="completed" /> <effectiveTime value="080809571937" /> <value unit="" xsi:type="PQ" value="Negative" /> < referenceRange> <observationRange> <text>Negative</text > </observationRange> </referenceRange> </observation > </component> <component> <observation moodCode="EVN" classCode="OBS"> <templateId root="11.30.840.1.012057.08.03.22.4.2" /> <id nullFlavor="NA" /> <code codeSystem="local" code="ULEU" displayName="Leukocyte Esterase" /> <statusCode code="completed" /> <effectiveTime value="905869582635" /> <value unit="NA" xsi:type ="PQ" value="Negative" /> <referenceRange> <observationRange > <text>Negative</text> </observationRange> </ referenceRange> </observation> </component> <component> <observation moodCode="EVN" classCode="OBS"> <templateId root= "840.1.753168.08.03.22.4.2" /> <id nullFlavor="NA" /> < code codeSystem="local" code="UNIT" displayName="Nitrites" /> < statusCode code="completed" /> <effectiveTime value="" /> <value unit="NA" xsi:type="PQ" value="Negative" /> < referenceRange> <observationRange> <text>Negative</text > </observationRange> </referenceRange> </observation > </component> <component> <observation moodCode="EVN" classCode="OBS"> <templateId root="11.30.840.1.580355.08.03.22.4.2" /> <id nullFlavor="NA" /> <code codeSystem="local" code="UPH" displayName="pH" /> <statusCode code="completed" /> < effectiveTime value="924745364820" /> <value unit="NA" xsi:type="PQ" value="7.0" /> <referenceRange> <observationRange> <text>5.0-8.0</text> </observationRange> </ referenceRange> </observation> </component> <component> <observation moodCode="EVN" classCode="OBS"> <templateId root= "11.30.840.1.905018.10..22.4.2" /> <id nullFlavor="NA" /> < code codeSystem="local" code="UPRO" displayName="Protein" /> < statusCode code="completed" /> <effectiveTime value="310628369775" /> <value unit="NA" xsi:type="PQ" value="Negative" /> < referenceRange> <observationRange> <text>Negative</text > </observationRange> </referenceRange> </observation > </component> <component> <observation moodCode="EVN" classCode="OBS"> <templateId root="11.30.840.1.134428...22.4.2" /> <id nullFlavor="NA" /> <code codeSystem="local" code="USPG" displayName="Specific Quinlan" /> <statusCode code="completed" /> <effectiveTime value="276185228914" /> <value unit="NA" xsi:type= "PQ" value="1.020" /> <referenceRange> <observationRange> <text>1.003-1.030</text> </observationRange> </ referenceRange> </observation> </component> <component> <observation moodCode="EVN" classCode="OBS"> <templateId root= "11.30.840.1.842360.22.4.2" /> <id nullFlavor="NA" /> < code codeSystem="local" code="UTYP" displayName="UA Collection type" /> <statusCode code="completed" /> <effectiveTime value="066030803181" / > <value unit="NA" xsi:type="PQ" value="Clean Catch" /> < referenceRange> <observationRange> <text /> < /observationRange> </referenceRange> </observation> </ component> <component> <observation moodCode="EVN" classCode="OBS"> <templateId root="840.1.153648.08.03.22.4.2" /> <id nullFlavor="NA" /> <code codeSystem="local" code="UURO" displayName= "Urobilinogen" /> <statusCode code="completed" /> < effectiveTime value="286184365487" /> <value unit="mg/dL" xsi:type="PQ " value="Negative" /> <referenceRange> <observationRange> <text><1.0</text> </observationRange> </ referenceRange> </observation> </component> </organizer> </entry > <entry> <organizer moodCode="EVN" classCode="BATTERY"> <templateId root="840.1.202854.08.03.22.4.1" /> <id nullFlavor="NA" /> <code codeSystem="local" code="PREGN" displayName=" Screen, Urine NPT" /> <statusCode code="completed" /> <component> <observation moodCode ="EVN" classCode="OBS"> <templateId root= "16.840.1.303565.08.03.22.4.2" /> <id nullFlavor="NA" /> < code codeSystem="local" code="PREGN" displayName=" Screen, Urine NPT" / > <statusCode code="completed" /> <effectiveTime value= "644182133228" /> <value unit="NA" xsi:type="PQ" value="Negative" /> <referenceRange> <observationRange> <text /> </observationRange> </referenceRange> </observation> </component> </organizer> </entry> <entry> <organizer moodCode="EVN " classCode="BATTERY"> <templateId root="216.840.1.814532.10..22.4.1" / > <id nullFlavor="NA" /> <code codeSystem="local" code="CBCWD" displayName="CBC With Platelet and Differential" /> <statusCode code= "completed" /> <component> <observation moodCode="EVN" classCode= "OBS"> <templateId root="216.840.1.102648.10...4.2" /> < id nullFlavor="NA" /> <code codeSystem="local" code="ABASR" displayName ="Absolute Basophils" /> <statusCode code="completed" /> < effectiveTime value="984432926242" /> <value unit="10*3/uL" xsi:type= "PQ" value="0.03" /> <referenceRange> <observationRange> <text>0.00-0.20</text> </observationRange> </ referenceRange> </observation> </component> <component> <observation moodCode="EVN" classCode="OBS"> <templateId root= "216.840.1.268484.10..22.4.2" /> <id nullFlavor="NA" /> < code codeSystem="local" code="AEOSR" displayName="Absolute Eosinophils" /> <statusCode code="completed" /> <effectiveTime value="754972538151 " /> <value unit="10*3/uL" xsi:type="PQ" value="0.31" /> < referenceRange> <observationRange> <text>0.00-0.50</text > </observationRange> </referenceRange> </observation > </component> <component> <observation moodCode="EVN" classCode="OBS"> <templateId root="216.840.1.967053.10...4.2" /> <id nullFlavor="NA" /> <code codeSystem="local" code="ALYMR" displayName="Absolute Lymphocytes" /> <statusCode code="completed" /> <effectiveTime value="930938621180" /> <value unit="10*3/uL" xsi:type="PQ" value="1.67" /> <referenceRange> < observationRange> <text>0.80-3.30</text> </ observationRange> </referenceRange> </observation> </ component> <component> <observation moodCode="EVN" classCode="OBS"> <templateId root="216.840.1.494485.08.03.22.4.2" /> <id nullFlavor="NA" /> <code codeSystem="local" code="AMONR" displayName= "Absolute Monocytes" /> <statusCode code="completed" /> < effectiveTime value="953143051010" /> <value unit="10*3/uL" xsi:type= "PQ" value="0.41" /> <referenceRange> <observationRange> <text>0.30-1.00</text> </observationRange> </ referenceRange> </observation> </component> <component> <observation moodCode="EVN" classCode="OBS"> <templateId root= "216.840.1.464368.10.22.4.2" /> <id nullFlavor="NA" /> < code codeSystem="local" code="ASEGR" displayName="Absolute Neutrophils" /> <statusCode code="completed" /> <effectiveTime value="690636256542 " /> <value unit="10*3/uL" xsi:type="PQ" value="3.14" /> < referenceRange> <observationRange> <text>1.90-7.00</text > </observationRange> </referenceRange> </observation > </component> <component> <observation moodCode="EVN" classCode="OBS"> <templateId root="2.16.840.1.584088.10..22.4.2" /> <id nullFlavor="NA" /> <code codeSystem="local" code="BASOR" displayName="Basophils" /> <statusCode code="completed" /> < effectiveTime value="299137189374" /> <value unit="%" xsi:type="PQ " value="1" /> <referenceRange> <observationRange> <text>0-2</text> </observationRange> </referenceRange> </observation> </component> <component> <observation moodCode="EVN" classCode="OBS"> <templateId root= "2.16.840.1.916717.10..22.4.2" /> <id nullFlavor="NA" /> < code codeSystem="local" code="EOSR" displayName="Eosinophils" /> < statusCode code="completed" /> <effectiveTime value="817454314519" /> <value unit="%" xsi:type="PQ" value="6" /> < interpretationCode codeSystem="local" code="*" /> <referenceRange> <observationRange> <text>0-4</text> </ observationRange> </referenceRange> </observation> </ component> <component> <observation moodCode="EVN" classCode="OBS"> <templateId root="216.840.1.364895.10.22.4.2" /> <id nullFlavor="NA" /> <code codeSystem="local" code="HCT" displayName="HCT " /> <statusCode code="completed" /> <effectiveTime value= "502229770346" /> <value unit="%" xsi:type="PQ" value="35.6" /> <interpretationCode codeSystem="local" code="*" /> < referenceRange> <observationRange> <text>37.0-47.0</text > </observationRange> </referenceRange> </observation > </component> <component> <observation moodCode="EVN" classCode="OBS"> <templateId root="11.30.840.1.456121.08.03.224.2" /> <id nullFlavor="NA" /> <code codeSystem="local" code="HGB" displayName="HGB" /> <statusCode code="completed" /> < effectiveTime value="338990462343" /> <value unit="g/dL" xsi:type="PQ" value="11.6" /> <interpretationCode codeSystem="local" code="*" /> <referenceRange> <observationRange> <text>12.0- 16.0</text> </observationRange> </referenceRange> </ observation> </component> <component> <observation moodCode= "EVN" classCode="OBS"> <templateId root="11.30.840.1.899953.1022.4.2 " /> <id nullFlavor="NA" /> <code codeSystem="local" code= "IMGA" displayName="Immature Granulocytes" /> <statusCode code= "completed" /> <effectiveTime value="363228205679" /> <value unit="%" xsi:type="PQ" value="0.4" /> <referenceRange> < observationRange> <text>0.0-1.0</text> </ observationRange> </referenceRange> </observation> </ component> <component> <observation moodCode="EVN" classCode="OBS"> <templateId root="11.30.840.1.273074.10..4.2" /> <id nullFlavor="NA" /> <code codeSystem="local" code="LYMPR" displayName= "Lymphocytes" /> <statusCode code="completed" /> < effectiveTime value="018079829928" /> <value unit="%" xsi:type="PQ " value="30" /> <referenceRange> <observationRange> <text>20-46</text> </observationRange> </ referenceRange> </observation> </component> <component> <observation moodCode="EVN" classCode="OBS"> <templateId root= "11.30.840.1.243342.08.03.22.4.2" /> <id nullFlavor="NA" /> < code codeSystem="local" code="MCH" displayName="MCH" /> <statusCode code="completed" /> <effectiveTime value="978848911065" /> < value unit="pg" xsi:type="PQ" value="29.9" /> <referenceRange> <observationRange> <text>27.0-32.0</text> </ observationRange> </referenceRange> </observation> </ component> <component> <observation moodCode="EVN" classCode="OBS"> <templateId root="11.30.840.1.007455.10..22.4.2" /> <id nullFlavor="NA" /> <code codeSystem="local" code="MCHC" displayName= "MCHC" /> <statusCode code="completed" /> <effectiveTime value ="264768219556" /> <value unit="g/dL" xsi:type="PQ" value="32.6" /> <referenceRange> <observationRange> <text>32.0- 36.0</text> </observationRange> </referenceRange> </ observation> </component> <component> <observation moodCode= "EVN" classCode="OBS"> <templateId root="11.30.840.1.592248.10.20.22.4.2 " /> <id nullFlavor="NA" /> <code codeSystem="local" code="MCV " displayName="MCV" /> <statusCode code="completed" /> < effectiveTime value="666407126359" /> <value unit="fL" xsi:type="PQ" value="91.8" /> <referenceRange> <observationRange> <text>82.0-99.0</text> </observationRange> </ referenceRange> </observation> </component> <component> <observation moodCode="EVN" classCode="OBS"> <templateId root= "16.840.1.895418.10.20.22.4.2" /> <id nullFlavor="NA" /> < code codeSystem="local" code="MONOR" displayName="Monocytes" /> < statusCode code="completed" /> <effectiveTime value="455512761742" /> <value unit="%" xsi:type="PQ" value="7" /> <referenceRange > <observationRange> <text>4-11</text> </ observationRange> </referenceRange> </observation> </ component> <component> <observation moodCode="EVN" classCode="OBS"> <templateId root="11.30.840.1.308705.08.03.22.4.2" /> <id nullFlavor="NA" /> <code codeSystem="local" code="MPV" displayName="MPV " /> <statusCode code="completed" /> <effectiveTime value= "447667639640" /> <value unit="fL" xsi:type="PQ" value="10.0" /> <referenceRange> <observationRange> <text>9.4-12.4</ text> </observationRange> </referenceRange> </ observation> </component> <component> <observation moodCode= "EVN" classCode="OBS"> <templateId root="16.840.1.970006.08.03.22.4.2 " /> <id nullFlavor="NA" /> <code codeSystem="local" code= "SEGR" displayName="Neutrophils" /> <statusCode code="completed" /> <effectiveTime value="993247583652" /> <value unit="%" xsi: type="PQ" value="56" /> <referenceRange> <observationRange> <text>51-75</text> </observationRange> </ referenceRange> </observation> </component> <component> <observation moodCode="EVN" classCode="OBS"> <templateId root= "16.840.1.037264.08.03.22.4.2" /> <id nullFlavor="NA" /> < code codeSystem="local" code="NRBCA" displayName="Nucleated RBC Automated" /> <statusCode code="completed" /> <effectiveTime value= "083009458122" /> <value unit="/100WBC" xsi:type="PQ" value="0.0" /> <referenceRange> <observationRange> <text /> </observationRange> </referenceRange> </observation> </component> <component> <observation moodCode="EVN" classCode= "OBS"> <templateId root="840.1.375555.10.20.22.4.2" /> < id nullFlavor="NA" /> <code codeSystem="local" code="PLT" displayName= "Platelet Count" /> <statusCode code="completed" /> < effectiveTime value="390212662014" /> <value unit="K/uL" xsi:type="PQ" value="271" /> <referenceRange> <observationRange> <text>150-400</text> </observationRange> </ referenceRange> </observation> </component> <component> <observation moodCode="EVN" classCode="OBS"> <templateId root= "840.1.589940.1022.4.2" /> <id nullFlavor="NA" /> < code codeSystem="local" code="RBC" displayName="RBC" /> <statusCode code="completed" /> <effectiveTime value="906875396502" /> < value unit="10*6/uL" xsi:type="PQ" value="3.88" /> <interpretationCode codeSystem="local" code="*" /> <referenceRange> < observationRange> <text>4.00-5.20</text> </ observationRange> </referenceRange> </observation> </ component> <component> <observation moodCode="EVN" classCode="OBS"> <templateId root="840.1.686774.10.20.22.4.2" /> <id nullFlavor="NA" /> <code codeSystem="local" code="RDW" displayName="RDW " /> <statusCode code="completed" /> <effectiveTime value= "378380790345" /> <value unit="%" xsi:type="PQ" value="13.9" /> <referenceRange> <observationRange> <text>11.5- 14.5</text> </observationRange> </referenceRange> </ observation> </component> <component> <observation moodCode= "EVN" classCode="OBS"> <templateId root="11.30.840.1.623749.10.20.22.4.2 " /> <id nullFlavor="NA" /> <code codeSystem="local" code= "WBCIR" displayName="WBC" /> <statusCode code="completed" /> < effectiveTime value="[id number]" /> <value unit="K/uL" xsi:type="PQ" value="5.6" /> <referenceRange> <observationRange> <text>4.8-10.8</text> </observationRange> </ referenceRange> </observation> </component> </organizer> </entry > <entry> <organizer moodCode="EVN" classCode="BATTERY"> <templateId root="11.30.840.1.105210.10..22.4.1" /> <id nullFlavor="NA" /> <code codeSystem="local" code="UA" displayName="Urinalysis with reflex microscopic" / > <statusCode code="completed" /> <component> <observation moodCode="EVN" classCode="OBS"> <templateId root= "11.30.840.1.413357.10..22.4.2" /> <id nullFlavor="NA" /> < code codeSystem="local" code="UAPP" displayName="Appearance" /> < statusCode code="completed" /> <effectiveTime value="423249587260" /> <value unit="NA" xsi:type="PQ" value="Clear" /> < referenceRange> <observationRange> <text /> < /observationRange> </referenceRange> </observation> </ component> <component> <observation moodCode="EVN" classCode="OBS"> <templateId root="16.840.1.998372.08.03.22.4.2" /> <id nullFlavor="NA" /> <code codeSystem="local" code="UBIL" displayName= "Bilirubin" /> <statusCode code="completed" /> <effectiveTime value="" /> <value unit="NA" xsi:type="PQ" value="Negative " /> <referenceRange> <observationRange> <text> Negative</text> </observationRange> </referenceRange> </observation> </component> <component> <observation moodCode ="EVN" classCode="OBS"> <templateId root= "216.840.1.955998.08.03.22.4.2" /> <id nullFlavor="NA" /> < code codeSystem="local" code="UBLD" displayName="Blood" /> <statusCode code="completed" /> <effectiveTime value="" /> < value unit="NA" xsi:type="PQ" value="Negative" /> <referenceRange> <observationRange> <text>Negative</text> </ observationRange> </referenceRange> </observation> </ component> <component> <observation moodCode="EVN" classCode="OBS"> <templateId root="16.840.1.965284.10.4.2" /> <id nullFlavor="NA" /> <code codeSystem="local" code="UCOLR" displayName= "Color" /> <statusCode code="completed" /> <effectiveTime value="" /> <value unit="NA" xsi:type="PQ" value="Yellow" / > <referenceRange> <observationRange> <text /> </observationRange> </referenceRange> </observation > </component> <component> <observation moodCode="EVN" classCode="OBS"> <templateId root="216.840.1.186472.10.4.2" /> <id nullFlavor="NA" /> <code codeSystem="local" code="UGLU" displayName="Glucose, Urine" /> <statusCode code="completed" /> <effectiveTime value="" /> <value unit="" xsi:type="PQ" value="Negative" /> <referenceRange> <observationRange> <text>Negative</text> </observationRange> </ referenceRange> </observation> </component> <component> <observation moodCode="EVN" classCode="OBS"> <templateId root= "11.30.840.1.274543.08.03.22.4.2" /> <id nullFlavor="NA" /> < code codeSystem="local" code="UKET" displayName="Ketones" /> < statusCode code="completed" /> <effectiveTime value="" /> <value unit="" xsi:type="PQ" value="Negative" /> < referenceRange> <observationRange> <text>Negative</text > </observationRange> </referenceRange> </observation > </component> <component> <observation moodCode="EVN" classCode="OBS"> <templateId root="11.30.840.1.146212.10.4.2" /> <id nullFlavor="NA" /> <code codeSystem="local" code="ULEU" displayName="Leukocyte Esterase" /> <statusCode code="completed" /> <effectiveTime value="" /> <value unit="NA" xsi:type ="PQ" value="Negative" /> <referenceRange> <observationRange > <text>Negative</text> </observationRange> </ referenceRange> </observation> </component> <component> <observation moodCode="EVN" classCode="OBS"> <templateId root= "11.30.840.1.351974.10.4.2" /> <id nullFlavor="NA" /> < code codeSystem="local" code="UNIT" displayName="Nitrites" /> < statusCode code="completed" /> <effectiveTime value="" /> <value unit="NA" xsi:type="PQ" value="Negative" /> < referenceRange> <observationRange> <text>Negative</text > </observationRange> </referenceRange> </observation > </component> <component> <observation moodCode="EVN" classCode="OBS"> <templateId root="840.1.816454.08.03.22.4.2" /> <id nullFlavor="NA" /> <code codeSystem="local" code="UPH" displayName="pH" /> <statusCode code="completed" /> < effectiveTime value="" /> <value unit="NA" xsi:type="PQ" value="5.0" /> <referenceRange> <observationRange> <text>5.0-8.0</text> </observationRange> </ referenceRange> </observation> </component> <component> <observation moodCode="EVN" classCode="OBS"> <templateId root= "11.30.840.1.340469.08.03.22.4.2" /> <id nullFlavor="NA" /> < code codeSystem="local" code="UPRO" displayName="Protein" /> < statusCode code="completed" /> <effectiveTime value="" /> <value unit="NA" xsi:type="PQ" value="Negative" /> < referenceRange> <observationRange> <text>Negative</text > </observationRange> </referenceRange> </observation > </component> <component> <observation moodCode="EVN" classCode="OBS"> <templateId root="16.840.1.105806.10..4.2" /> <id nullFlavor="NA" /> <code codeSystem="local" code="USPG" displayName="Specific Quinlan" /> <statusCode code="completed" /> <effectiveTime value="025111068974" /> <value unit="NA" xsi:type= "PQ" value="1.015" /> <referenceRange> <observationRange> <text>1.003-1.030</text> </observationRange> </ referenceRange> </observation> </component> <component> <observation moodCode="EVN" classCode="OBS"> <templateId root= "11.30.840.1.788873.08.03.22.4.2" /> <id nullFlavor="NA" /> < code codeSystem="local" code="UTYP" displayName="UA Collection type" /> <statusCode code="completed" /> <effectiveTime value="386169709150" / > <value unit="NA" xsi:type="PQ" value="Clean Catch" /> < referenceRange> <observationRange> <text /> < /observationRange> </referenceRange> </observation> </ component> <component> <observation moodCode="EVN" classCode="OBS"> <templateId root="11.30.840.1.525918.08.03.22.4.2" /> <id nullFlavor="NA" /> <code codeSystem="local" code="UURO" displayName= "Urobilinogen" /> <statusCode code="completed" /> < effectiveTime value="484658871428" /> <value unit="mg/dL" xsi:type="PQ " value="Negative" /> <referenceRange> <observationRange> <text><1.0</text> </observationRange> </ referenceRange> </observation> </component> </organizer> </entry > <entry> <organizer moodCode="EVN" classCode="BATTERY"> <templateId root="216.840.1.557867.10..22.4.1" /> <id nullFlavor="NA" /> <code codeSystem="local" code="UPREG" displayName=" Screen, Urine" /> < statusCode code="completed" /> <component> <observation moodCode= "EVN" classCode="OBS"> <templateId root="216.840.1.688226.10..22.4.2 " /> <id nullFlavor="NA" /> <code codeSystem="local" code= "UPREG" displayName=" Screen, Urine" /> <statusCode code= "completed" /> <effectiveTime value="255258486171" /> <value unit="NA" xsi:type="PQ" value="Negative" /> <referenceRange> <observationRange> <text /> </observationRange> </referenceRange> </observation> </component> </organizer> < /entry> <entry> <organizer moodCode="EVN" classCode="BATTERY"> < templateId root="216.840.1.806460.10..22.4.1" /> <id nullFlavor="NA" /> <code codeSystem="local" code="VCHMN" displayName="Chem 8 NPT" /> < statusCode code="completed" /> <component> <observation moodCode= "EVN" classCode="OBS"> <templateId root="216.840.1.426947.10.22.4.2 " /> <id nullFlavor="NA" /> <code codeSystem="local" code= "VAGAP" displayName="Anion Gap" /> <statusCode code="completed" /> <effectiveTime value="869188866592" /> <value unit="mEq/L" xsi: type="PQ" value="13" /> <referenceRange> <observationRange> <text>3-20</text> </observationRange> </ referenceRange> </observation> </component> <component> <observation moodCode="EVN" classCode="OBS"> <templateId root= "11.30.840.1.771058.08.03.22.4.2" /> <id nullFlavor="NA" /> < code codeSystem="local" code="VBUNN" displayName="BUN Venous" /> < statusCode code="completed" /> <effectiveTime value="267287408588" /> <value unit="mg/dl" xsi:type="PQ" value="12" /> < referenceRange> <observationRange> <text>4-20</text> </observationRange> </referenceRange> </observation> </component> <component> <observation moodCode="EVN" classCode= "OBS"> <templateId root="11.30.840.1.659374.10.22.4.2" /> < id nullFlavor="NA" /> <code codeSystem="local" code="VCANN" displayName ="Calcium Ionized Venous" /> <statusCode code="completed" /> < effectiveTime value="417738738811" /> <value unit="mmol/L" xsi:type="PQ " value="1.13" /> <interpretationCode codeSystem="local" code="*" /> <referenceRange> <observationRange> <text>1.19- 1.41</text> </observationRange> </referenceRange> </ observation> </component> <component> <observation moodCode= "EVN" classCode="OBS"> <templateId root="216.840.1.604957.10..4.2 " /> <id nullFlavor="NA" /> <code codeSystem="local" code= "VCREN" displayName="Creatinine Venous" /> <statusCode code="completed " /> <effectiveTime value="822708376857" /> <value unit="mg/dL " xsi:type="PQ" value="0.7" /> <referenceRange> < observationRange> <text>0.4-1.0</text> </ observationRange> </referenceRange> </observation> </ component> <component> <observation moodCode="EVN" classCode="OBS"> <templateId root="11.30.840.1.354746.08.03.22.4.2" /> <id nullFlavor="NA" /> <code codeSystem="local" code="VGLNN" displayName= "Glucose Venous" /> <statusCode code="completed" /> < effectiveTime value="531373989640" /> <value unit="mg/dL" xsi:type="PQ " value="80" /> <referenceRange> <observationRange> <text>70-100</text> </observationRange> </ referenceRange> </observation> </component> <component> <observation moodCode="EVN" classCode="OBS"> <templateId root= "11.30.840.1.290588...4.2" /> <id nullFlavor="NA" /> < code codeSystem="local" code="VKNN" displayName="Potassium, WB" /> < statusCode code="completed" /> <effectiveTime value="374538219989" /> <value unit="mEq/L" xsi:type="PQ" value="3.9" /> < referenceRange> <observationRange> <text>3.6-5.1</text> </observationRange> </referenceRange> </observation > </component> <component> <observation moodCode="EVN" classCode="OBS"> <templateId root="216.840.1.652422.10..22.4.2" /> <id nullFlavor="NA" /> <code codeSystem="local" code="VNANN" displayName="Sodium Venous" /> <statusCode code="completed" /> <effectiveTime value="867029577934" /> <value unit="mEq/L" xsi:type= "PQ" value="140" /> <referenceRange> <observationRange> <text>136-144</text> </observationRange> </ referenceRange> </observation> </component> <component> <observation moodCode="EVN" classCode="OBS"> <templateId root= "216.840.1.255497.10...4.2" /> <id nullFlavor="NA" /> < code codeSystem="local" code="VTCNN" displayName="Total CO2 Venous" /> <statusCode code="completed" /> <effectiveTime value="111981443620" /> <value unit="mEq/L" xsi:type="PQ" value="21" /> < interpretationCode codeSystem="local" code="*" /> <referenceRange> <observationRange> <text>25-29</text> </ observationRange> </referenceRange> </observation> </ component> <component> <observation moodCode="EVN" classCode="OBS"> <templateId root="216.840.1.411211.10..22.4.2" /> <id nullFlavor="NA" /> <code codeSystem="local" code="VCLN" displayName= "Venous CL" /> <statusCode code="completed" /> <effectiveTime value="221246076200" /> <value unit="mEq/L" xsi:type="PQ" value="106" / > <referenceRange> <observationRange> <text>99- 109</text> </observationRange> </referenceRange> </ observation> </component> <component> <observation moodCode= "EVN" classCode="OBS"> <templateId root="2.16.840.1.267067.10.20.22.4.2 " /> <id nullFlavor="NA" /> <code codeSystem="local" code= "VHCNN" displayName="HCT Venous" /> <statusCode code="completed" /> <effectiveTime value="223313651400" /> <value unit="%" xsi: type="PQ" value="41.0" /> <referenceRange> <observationRange > <text>37.0-47.0</text> </observationRange> </ referenceRange> </observation> </component> <component> <observation moodCode="EVN" classCode="OBS"> <templateId root= "2.16.840.1.888052.10.20.22.4.2" /> <id nullFlavor="NA" /> < code codeSystem="local" code="VHGNN" displayName="HGB Venous NPT" /> < statusCode code="completed" /> <effectiveTime value="060747058500" /> <value unit="g/dL" xsi:type="PQ" value="13.9" /> < referenceRange> <observationRange> <text>12.0-16.0</text > </observationRange> </referenceRange> </observation > </component> </organizer> </entry> <entry> <organizer moodCode= "EVN" classCode="BATTERY"> <templateId root="216.840.1.378791.10..22.4.1 " /> <id nullFlavor="NA" /> <code codeSystem="local" code="PREGN" displayName=" Screen, Urine NPT" /> <statusCode code="completed" / > <component> <observation moodCode="EVN" classCode="OBS"> <templateId root="11.30.840.1.952755.10..4.2" /> <id nullFlavor="NA " /> <code codeSystem="local" code="PREGN" displayName=" Screen, Urine NPT" /> <statusCode code="completed" /> < effectiveTime value="649767153919" /> <value unit="NA" xsi:type="PQ" value="Negative" /> <referenceRange> <observationRange> <text /> </observationRange> </referenceRange> </observation> </component> </organizer> </entry> <entry> < organizer moodCode="EVN" classCode="BATTERY"> <templateId root= "11.30.840.1.297138.10...4.1" /> <id nullFlavor="NA" /> <code codeSystem="local" code="UA" displayName="URINALYSIS, ROUTINE" /> < statusCode code="completed" /> <component> <observation moodCode= "EVN" classCode="OBS"> <templateId root="11.30.840.1.949895.10..22.4.2 " /> <id nullFlavor="NA" /> <code codeSystem="local" code= "LEUESU" displayName="UA LEUKOCYTE ESTERASE DIPSTICK" /> <statusCode code="completed" /> <effectiveTime value="560472605135" /> < value unit="" xsi:type="PQ" value="NEGATIVE" /> <referenceRange> <observationRange> <text>NEGATIVE</text> </ observationRange> </referenceRange> </observation> </ component> <component> <observation moodCode="EVN" classCode="OBS"> <templateId root="11.30.840.1.069298.10..4.2" /> <id nullFlavor="NA" /> <code codeSystem="local" code="NITRIU" displayName= "UA NITRITE DIPSTICK" /> <statusCode code="completed" /> < effectiveTime value="855612731454" /> <value unit="" xsi:type="PQ" value="NEGATIVE" /> <referenceRange> <observationRange> <text>NEGATIVE</text> </observationRange> </ referenceRange> </observation> </component> <component> <observation moodCode="EVN" classCode="OBS"> <templateId root= "840.1.034208.08.03.22.4.2" /> <id nullFlavor="NA" /> < code codeSystem="local" code="PROTEIU" displayName="UA PROTEIN DIPSTICK" /> <statusCode code="completed" /> <effectiveTime value= "628390246214" /> <value unit="" xsi:type="PQ" value="NEGATIVE" /> <referenceRange> <observationRange> <text>NEGATIVE </text> </observationRange> </referenceRange> </ observation> </component> <component> <observation moodCode= "EVN" classCode="OBS"> <templateId root="840.1.308782.08.03.22.4.2 " /> <id nullFlavor="NA" /> <code codeSystem="local" code= "DGLUU" displayName="UA GLUCOSE DIPSTICK" /> <statusCode code= "completed" /> <effectiveTime value="868094596419" /> <value unit="" xsi:type="PQ" value="NEGATIVE" /> <referenceRange> < observationRange> <text>NEGATIVE</text> </ observationRange> </referenceRange> </observation> </ component> <component> <observation moodCode="EVN" classCode="OBS"> <templateId root="16.840.1.352127.08.03.22.4.2" /> <id nullFlavor="NA" /> <code codeSystem="local" code="KETONU" displayName= "UA KETONE DIPSTICK" /> <statusCode code="completed" /> < effectiveTime value="021936954856" /> <value unit="" xsi:type="PQ" value="NEGATIVE" /> <referenceRange> <observationRange> <text>NEGATIVE</text> </observationRange> </ referenceRange> </observation> </component> <component> <observation moodCode="EVN" classCode="OBS"> <templateId root= "11.30.840.1.379010.08.03.22.4.2" /> <id nullFlavor="NA" /> < code codeSystem="local" code="UROBILU" displayName="UA UROBILINOGEN DIPSTICK" / > <statusCode code="completed" /> <effectiveTime value= "995501851610" /> <value unit="" xsi:type="PQ" value="NORMAL" /> <referenceRange> <observationRange> <text>NORMAL</ text> </observationRange> </referenceRange> </ observation> </component> <component> <observation moodCode= "EVN" classCode="OBS"> <templateId root="16.840.1.160922.22.4.2 " /> <id nullFlavor="NA" /> <code codeSystem="local" code= "BILU" displayName="UA BILIRUBIN DIPSTICK" /> <statusCode code= "completed" /> <effectiveTime value="357674986390" /> <value unit="" xsi:type="PQ" value="NEGATIVE" /> <referenceRange> < observationRange> <text>NEGATIVE</text> </ observationRange> </referenceRange> </observation> </ component> <component> <observation moodCode="EVN" classCode="OBS"> <templateId root="216.840.1.743632.10..22.4.2" /> <id nullFlavor="NA" /> <code codeSystem="local" code="ABDELRAHMAN" displayName="UA BLOOD DIPSTICK" /> <statusCode code="completed" /> < effectiveTime value="129870110604" /> <value unit="" xsi:type="PQ" value="NEGATIVE" /> <referenceRange> <observationRange> <text>NEGATIVE</text> </observationRange> </ referenceRange> </observation> </component> <component> <observation moodCode="EVN" classCode="OBS"> <templateId root= "216.840.1.214337.10.20.22.4.2" /> <id nullFlavor="NA" /> < code codeSystem="local" code="SPGRU" displayName="UA SPECIFIC GRAVITY" /> <statusCode code="completed" /> <effectiveTime value="780216820170 " /> <value unit="" xsi:type="PQ" value="1.015" /> < referenceRange> <observationRange> <text>1.015-1.025</ text> </observationRange> </referenceRange> </ observation> </component> <component> <observation moodCode= "EVN" classCode="OBS"> <templateId root="16.840.1.839032.22.4.2 " /> <id nullFlavor="NA" /> <code codeSystem="local" code="COLTON " displayName="UR PH" /> <statusCode code="completed" /> < effectiveTime value="912592198795" /> <value unit="" xsi:type="PQ" value="6.5" /> <referenceRange> <observationRange> <text>5.0-7.0</text> </observationRange> </ referenceRange> </observation> </component> </organizer> </entry > <entry> <organizer moodCode="EVN" classCode="BATTERY"> <templateId root="16.840.1.162121.08.03.22.4.1" /> <id nullFlavor="NA" /> <code codeSystem="local" code="PREGU" displayName="UR TEST" /> < statusCode code="completed" /> <component> <observation moodCode= "EVN" classCode="OBS"> <templateId root="16.840.1.671295....4.2 " /> <id nullFlavor="NA" /> <code codeSystem="local" code= "PREGU" displayName="UR TEST" /> <statusCode code="completed " /> <effectiveTime value="250375046795" /> <value unit="" xsi :type="PQ" value="NEGATIVE" /> <referenceRange> < observationRange> <text>NEGATIVE</text> </ observationRange> </referenceRange> </observation> </ component> </organizer> </entry> <entry> <organizer moodCode="EVN" classCode="BATTERY"> <templateId root="16.840.1.309133.10..22.4.1" /> <id nullFlavor="NA" /> <code codeSystem="local" code="CHL" displayName ="CHLAMYDIA DNA BY PCR" /> <statusCode code="completed" /> <component > <observation moodCode="EVN" classCode="OBS"> <templateId root= "16.840.1.677635.10..22.4.2" /> <id nullFlavor="NA" /> < code codeSystem="local" code="MB" displayName="Microbiology" /> < statusCode code="completed" /> <effectiveTime value="259350174539" /> <value xsi:type="ST" value="<pre><b>CHLAMYDIA DNA BY PCR - GONORRHOEA DNA BY PCR</b> See BelowCHLAMYDIA DNA BY PCR(F) Isabella Date/Time: 2016 19:12 Laina Date/Time: 06/12/2017 09:32SOURCE : URINESPEC DESC: [address] [id number] BelowGONORRHOEA DNA BY PCR(F) Isabella Date/Time: 06/11/2017 19:12 Laina Date/Time: 06/12/2017 09:32SOURCE: URINESPEC DESC: [address] [address]</ pre>" /> <referenceRange> <observationRange> < text /> </observationRange> </referenceRange> </ observation> </component> </organizer> </entry> <entry> <organizer moodCode="EVN" classCode="BATTERY"> <templateId root= "11.30.840.1.064284.10..22.4.1" /> <id nullFlavor="NA" /> <code codeSystem="local" code="PREG" displayName=" TEST, SERUM" /> < statusCode code="completed" /> <component> <observation moodCode= "EVN" classCode="OBS"> <templateId root="11.30.840.1.037232...22.4.2 " /> <id nullFlavor="NA" /> <code codeSystem="local" code= "PREG" displayName=" TEST, SERUM" /> <statusCode code= "completed" /> <effectiveTime value="481278934271" /> <value unit="" xsi:type="PQ" value="NEGATIVE" /> <referenceRange> < observationRange> <text>NEGATIVE</text> </ observationRange> </referenceRange> </observation> </ component> </organizer> </entry> <entry> <organizer moodCode="EVN" classCode="BATTERY"> <templateId root="216.840.1.893840.08.03.22.4.1" /> <id nullFlavor="NA" /> <code codeSystem="local" code="RPR" displayName ="RAPID PLASMA REAGIN" /> <statusCode code="completed" /> <component> <observation moodCode="EVN" classCode="OBS"> <templateId root= "216.840.1.862237.10...4.2" /> <id nullFlavor="NA" /> < code codeSystem="local" code="RPR" displayName="RAPID PLASMA REAGIN" /> <statusCode code="completed" /> <effectiveTime value="911819044940" / > <value unit="" xsi:type="PQ" value="NONREACTIVE" /> < referenceRange> <observationRange> <text>NONREACTIVE</ text> </observationRange> </referenceRange> </ observation> </component> </organizer> </entry> <entry> <organizer moodCode="EVN" classCode="BATTERY"> <templateId root= "16.840.1.194004.10.22.4.1" /> <id nullFlavor="NA" /> <code codeSystem="local" code="HIV" displayName="HIV" /> <statusCode code= "completed" /> <component> <observation moodCode="EVN" classCode= "OBS"> <templateId root="216.840.1.479389.10..4.2" /> < id nullFlavor="NA" /> <code codeSystem="local" code="[id number]" displayName="AB HIV 1 2" /> <statusCode code="completed" /> <effectiveTime value="866955363465" /> <value unit="" xsi:type="PQ" value="NEGATIVE" /> <referenceRange> <observationRange> <text>NEGATIVE</text> </observationRange> </ referenceRange> </observation> </component> <component> <observation moodCode="EVN" classCode="OBS"> <templateId root= "11.30.840.1.488859.08.03.22.4.2" /> <id nullFlavor="NA" /> < code codeSystem="local" code="[id number]" displayName="HIV 1 P24 AG" /> <statusCode code="completed" /> <effectiveTime value="" /> <value unit="" xsi:type="PQ" value="NEGATIVE" /> < referenceRange> <observationRange> <text>NEGATIVE</text > </observationRange> </referenceRange> </observation > </component> </organizer> </entry> <entry> <organizer moodCode= "EVN" classCode="BATTERY"> <templateId root="11.30.840.1.598010...4.1 " /> <id nullFlavor="NA" /> <code codeSystem="local" code="WET" displayName="WET MOUNT" /> <statusCode code="completed" /> <component > <observation moodCode="EVN" classCode="OBS"> <templateId root= "2.16.840.1.867943.10.20.22.4.2" /> <id nullFlavor="NA" /> < code codeSystem="local" code="MB" displayName="Microbiology" /> < statusCode code="completed" /> <effectiveTime value="813204282424" /> <value xsi:type="ST" value="<pre><b>WET MOUNT</b> See BelowWET MOUNT(F ) Isabella Date/Time: 06/11/2017 20:32 Laina Date/Time: 06/11/2017 20:45SOURCE: VAGINALSPEC DESC: CLUE CELLS ( Abnormal)MODERATE CLUE CELLS PRESENT (Abnormal)TRICHOMONASNO TRICHOMONAS SEENWBCFEW WBCYEASTNO YEAST [facility]ENLA[facility] [place] [address]</pre>" /> <referenceRange> <observationRange> <text /> </observationRange> </referenceRange> </observation> </component> </organizer> </entry> <entry> < organizer moodCode="EVN" classCode="BATTERY"> <templateId root= "2.16.840.1.422227.10..22.4.1" /> <id nullFlavor="NA" /> <code codeSystem="local" code="GRAM" displayName="GRAM STAIN - CHLAMYDIA DNA BY PCR" / > <statusCode code="completed" /> <component> <observation moodCode="EVN" classCode="OBS"> <templateId root= "2.16.840.1.993683.10.20.22.4.2" /> <id nullFlavor="NA" /> < code codeSystem="local" code="MB" displayName="Microbiology" /> < statusCode code="completed" /> <effectiveTime value="016032590303" /> <value xsi:type="ST" value="<pre><b>GRAM STAIN</b> See BelowGRAM STAIN( F) Isabella Date/Time: 06/11/2017 20:32 Laina Date/Time: 06/11/2017 20:52SOURCE: VAGINALSPEC DESC: GRAM STAINRARE NEUTROPHILSMANY GRAM VARIABLE BACILLI RESEMBLING G. VAGINALISNO ORGANISMS SEEN RESEMBLING NEISSERIA [facility]ONORRHOEAELA[facility] [place] [address]</pre>" /> <referenceRange> <observationRange> <text /> </observationRange> </referenceRange> </observation> </component> </organizer> </entry> <entry> < organizer moodCode="EVN" classCode="BATTERY"> <templateId root= "2.16.840.1.292339.10.20.22.4.1" /> <id nullFlavor="NA" /> <code codeSystem="local" code="CBCWD" displayName="CBC With Platelet and Differential " /> <statusCode code="completed" /> <component> <observation moodCode="EVN" classCode="OBS"> <templateId root= "2.16.840.1.206212.10.20.22.4.2" /> <id nullFlavor="NA" /> < code codeSystem="local" code="ABASR" displayName="Absolute Basophils" /> <statusCode code="completed" /> <effectiveTime value="114399759055" /> <value unit="10*3/uL" xsi:type="PQ" value="0.06" /> < referenceRange> <observationRange> <text>0.00-0.20</text > </observationRange> </referenceRange> </observation > </component> <component> <observation moodCode="EVN" classCode="OBS"> <templateId root="2.16.840.1.074724.10.20.22.4.2" /> <id nullFlavor="NA" /> <code codeSystem="local" code="AEOSR" displayName="Absolute Eosinophils" /> <statusCode code="completed" /> <effectiveTime value="878585778101" /> <value unit="10*3/uL" xsi:type="PQ" value="0.46" /> <referenceRange> < observationRange> <text>0.00-0.50</text> </ observationRange> </referenceRange> </observation> </ component> <component> <observation moodCode="EVN" classCode="OBS"> <templateId root="216.840.1.490701.10..4.2" /> <id nullFlavor="NA" /> <code codeSystem="local" code="ALYMR" displayName= "Absolute Lymphocytes" /> <statusCode code="completed" /> < effectiveTime value="732620042462" /> <value unit="10*3/uL" xsi:type= "PQ" value="2.05" /> <referenceRange> <observationRange> <text>0.80-3.30</text> </observationRange> </ referenceRange> </observation> </component> <component> <observation moodCode="EVN" classCode="OBS"> <templateId root= "16.840.1.450450....4.2" /> <id nullFlavor="NA" /> < code codeSystem="local" code="AMONR" displayName="Absolute Monocytes" /> <statusCode code="completed" /> <effectiveTime value="076671022725" /> <value unit="10*3/uL" xsi:type="PQ" value="0.53" /> < referenceRange> <observationRange> <text>0.30-1.00</text > </observationRange> </referenceRange> </observation > </component> <component> <observation moodCode="EVN" classCode="OBS"> <templateId root="216.840.1.002935.08.03.22.4.2" /> <id nullFlavor="NA" /> <code codeSystem="local" code="ASEGR" displayName="Absolute Neutrophils" /> <statusCode code="completed" /> <effectiveTime value="555407852700" /> <value unit="10*3/uL" xsi:type="PQ" value="4.64" /> <referenceRange> < observationRange> <text>1.90-7.00</text> </ observationRange> </referenceRange> </observation> </ component> <component> <observation moodCode="EVN" classCode="OBS"> <templateId root="216.840.1.859879.08.03.22.4.2" /> <id nullFlavor="NA" /> <code codeSystem="local" code="BASOR" displayName= "Basophils" /> <statusCode code="completed" /> <effectiveTime value="251699185414" /> <value unit="%" xsi:type="PQ" value="1" /> <referenceRange> <observationRange> <text>0-2< /text> </observationRange> </referenceRange> </ observation> </component> <component> <observation moodCode= "EVN" classCode="OBS"> <templateId root="16.840.1.259398.10..4.2 " /> <id nullFlavor="NA" /> <code codeSystem="local" code= "EOSR" displayName="Eosinophils" /> <statusCode code="completed" /> <effectiveTime value="963093410114" /> <value unit="%" xsi: type="PQ" value="6" /> <interpretationCode codeSystem="local" code="*" /> <referenceRange> <observationRange> <text>0- 4</text> </observationRange> </referenceRange> </ observation> </component> <component> <observation moodCode= "EVN" classCode="OBS"> <templateId root="216.840.1.813145.10.22.4.2 " /> <id nullFlavor="NA" /> <code codeSystem="local" code="HCT " displayName="HCT" /> <statusCode code="completed" /> < effectiveTime value="244258817541" /> <value unit="%" xsi:type="PQ " value="38.9" /> <referenceRange> <observationRange> <text>37.0-47.0</text> </observationRange> </ referenceRange> </observation> </component> <component> <observation moodCode="EVN" classCode="OBS"> <templateId root= "2.840.1.812705.08.03.22.4.2" /> <id nullFlavor="NA" /> < code codeSystem="local" code="HGB" displayName="HGB" /> <statusCode code="completed" /> <effectiveTime value="534662281991" /> < value unit="g/dL" xsi:type="PQ" value="13.4" /> <referenceRange> <observationRange> <text>12.0-16.0</text> </ observationRange> </referenceRange> </observation> </ component> <component> <observation moodCode="EVN" classCode="OBS"> <templateId root="216.840.1.727306..2022.4.2" /> <id nullFlavor="NA" /> <code codeSystem="local" code="IMGA" displayName= "Immature Granulocytes" /> <statusCode code="completed" /> < effectiveTime value="725929447975" /> <value unit="%" xsi:type="PQ " value="0.1" /> <referenceRange> <observationRange> <text>0.0-1.0</text> </observationRange> </ referenceRange> </observation> </component> <component> <observation moodCode="EVN" classCode="OBS"> <templateId root= "16.840.1.788646.10.2022.4.2" /> <id nullFlavor="NA" /> < code codeSystem="local" code="LYMPR" displayName="Lymphocytes" /> < statusCode code="completed" /> <effectiveTime value="165601569190" /> <value unit="%" xsi:type="PQ" value="27" /> < referenceRange> <observationRange> <text>20-46</text> </observationRange> </referenceRange> </observation> </component> <component> <observation moodCode="EVN" classCode= "OBS"> <templateId root="11.30.840.1.984299.10.22.4.2" /> < id nullFlavor="NA" /> <code codeSystem="local" code="MCH" displayName= "MCH" /> <statusCode code="completed" /> <effectiveTime value= "627078074930" /> <value unit="pg" xsi:type="PQ" value="31.2" /> <referenceRange> <observationRange> <text>27.0-32.0< /text> </observationRange> </referenceRange> </ observation> </component> <component> <observation moodCode= "EVN" classCode="OBS"> <templateId root="11.30.840.1.265191.10.2022.4.2 " /> <id nullFlavor="NA" /> <code codeSystem="local" code= "MCHC" displayName="MCHC" /> <statusCode code="completed" /> < effectiveTime value="807225116602" /> <value unit="g/dL" xsi:type="PQ" value="34.4" /> <referenceRange> <observationRange> <text>32.0-36.0</text> </observationRange> </ referenceRange> </observation> </component> <component> <observation moodCode="EVN" classCode="OBS"> <templateId root= "11.30.840.1.202776.10.22.4.2" /> <id nullFlavor="NA" /> < code codeSystem="local" code="MCV" displayName="MCV" /> <statusCode code="completed" /> <effectiveTime value="077847416640" /> < value unit="fL" xsi:type="PQ" value="90.7" /> <referenceRange> <observationRange> <text>82.0-99.0</text> </ observationRange> </referenceRange> </observation> </ component> <component> <observation moodCode="EVN" classCode="OBS"> <templateId root="11.30.840.1.861400..22.4.2" /> <id nullFlavor="NA" /> <code codeSystem="local" code="MONOR" displayName= "Monocytes" /> <statusCode code="completed" /> <effectiveTime value="292009010158" /> <value unit="%" xsi:type="PQ" value="7" /> <referenceRange> <observationRange> <text>4-11 </text> </observationRange> </referenceRange> </ observation> </component> <component> <observation moodCode= "EVN" classCode="OBS"> <templateId root="11.30.840.1.889426.4.2 " /> <id nullFlavor="NA" /> <code codeSystem="local" code="MPV " displayName="MPV" /> <statusCode code="completed" /> < effectiveTime value="769834137322" /> <value unit="fL" xsi:type="PQ" value="10.9" /> <referenceRange> <observationRange> <text>9.4-12.4</text> </observationRange> </ referenceRange> </observation> </component> <component> <observation moodCode="EVN" classCode="OBS"> <templateId root= "216.840.1.040429.08.03.224.2" /> <id nullFlavor="NA" /> < code codeSystem="local" code="SEGR" displayName="Neutrophils" /> < statusCode code="completed" /> <effectiveTime value="357282301497" /> <value unit="%" xsi:type="PQ" value="60" /> < referenceRange> <observationRange> <text>51-75</text> </observationRange> </referenceRange> </observation> </component> <component> <observation moodCode="EVN" classCode= "OBS"> <templateId root="2.16.840.1.583281.08.03.22.4.2" /> < id nullFlavor="NA" /> <code codeSystem="local" code="NRBCA" displayName ="Nucleated RBC Automated" /> <statusCode code="completed" /> <effectiveTime value="881709919685" /> <value unit="/100WBC" xsi:type= "PQ" value="0.0" /> <referenceRange> <observationRange> <text /> </observationRange> </referenceRange> </observation> </component> <component> <observation moodCode="EVN" classCode="OBS"> <templateId root= "16.840.1.414812.10.20.22.4.2" /> <id nullFlavor="NA" /> < code codeSystem="local" code="PLT" displayName="Platelet Count" /> < statusCode code="completed" /> <effectiveTime value="432473713388" /> <value unit="K/uL" xsi:type="PQ" value="255" /> < referenceRange> <observationRange> <text>150-400</text> </observationRange> </referenceRange> </observation > </component> <component> <observation moodCode="EVN" classCode="OBS"> <templateId root="11.30.840.1.667657.10..22.4.2" /> <id nullFlavor="NA" /> <code codeSystem="local" code="RBC" displayName="RBC" /> <statusCode code="completed" /> < effectiveTime value="639371982687" /> <value unit="10*6/uL" xsi:type= "PQ" value="4.29" /> <referenceRange> <observationRange> <text>4.00-5.20</text> </observationRange> </ referenceRange> </observation> </component> <component> <observation moodCode="EVN" classCode="OBS"> <templateId root= "11.30.840.1.722191.10.20.22.4.2" /> <id nullFlavor="NA" /> < code codeSystem="local" code="RDW" displayName="RDW" /> <statusCode code="completed" /> <effectiveTime value="405009503576" /> < value unit="%" xsi:type="PQ" value="13.6" /> <referenceRange> <observationRange> <text>11.5-14.5</text> </ observationRange> </referenceRange> </observation> </ component> <component> <observation moodCode="EVN" classCode="OBS"> <templateId root="2.16.840.1.468652.10..22.4.2" /> <id nullFlavor="NA" /> <code codeSystem="local" code="WBCIR" displayName= "WBC" /> <statusCode code="completed" /> <effectiveTime value= "432122919899" /> <value unit="K/uL" xsi:type="PQ" value="7.8" /> <referenceRange> <observationRange> <text>4.8-10.8< /text> </observationRange> </referenceRange> </ observation> </component> </organizer> </entry> <entry> <organizer moodCode="EVN" classCode="BATTERY"> <templateId root= "2.16.840.1.784626.10..22.4.1" /> <id nullFlavor="NA" /> <code codeSystem="local" code="CMP" displayName="Comprehensive Metabolic Panel (CMP)" /> <statusCode code="completed" /> <component> <observation moodCode="EVN" classCode="OBS"> <templateId root= "2.16.840.1.792653.10..22.4.2" /> <id nullFlavor="NA" /> < code codeSystem="local" code="ALB" displayName="Albumin" /> < statusCode code="completed" /> <effectiveTime value="763718041439" /> <value unit="g/dL" xsi:type="PQ" value="4.2" /> < referenceRange> <observationRange> <text>3.5-4.8</text> </observationRange> </referenceRange> </observation > </component> <component> <observation moodCode="EVN" classCode="OBS"> <templateId root="16.840.1.698989.10..22.4.2" /> <id nullFlavor="NA" /> <code codeSystem="local" code="ALP" displayName="Alkaline Phosphatase" /> <statusCode code="completed" /> <effectiveTime value="" /> <value unit="U/L" xsi: type="PQ" value="57" /> <referenceRange> <observationRange> <text>26-104</text> </observationRange> </ referenceRange> </observation> </component> <component> <observation moodCode="EVN" classCode="OBS"> <templateId root= "16.840.1.078633.10...4.2" /> <id nullFlavor="NA" /> < code codeSystem="local" code="ALT" displayName="ALT (SGPT)" /> < statusCode code="completed" /> <effectiveTime value="" /> <value unit="U/L" xsi:type="PQ" value="12" /> < interpretationCode codeSystem="local" code="*" /> <referenceRange> <observationRange> <text>14-54</text> </ observationRange> </referenceRange> </observation> </ component> <component> <observation moodCode="EVN" classCode="OBS"> <templateId root="11.30.840.1.610410.10..22.4.2" /> <id nullFlavor="NA" /> <code codeSystem="local" code="AGAP" displayName= "Anion Gap" /> <statusCode code="completed" /> <effectiveTime value="" /> <value unit="mEq/L" xsi:type="PQ" value="7" /> <referenceRange> <observationRange> <text>3-20 </text> </observationRange> </referenceRange> </ observation> </component> <component> <observation moodCode= "EVN" classCode="OBS"> <templateId root="216.840.1.635687.10.20.22.4.2 " /> <id nullFlavor="NA" /> <code codeSystem="local" code="AST " displayName="AST (SGOT)" /> <statusCode code="completed" /> <effectiveTime value="693081201042" /> <value unit="U/L" xsi:type="PQ" value="12" /> <interpretationCode codeSystem="local" code="*" /> <referenceRange> <observationRange> <text>15-41</ text> </observationRange> </referenceRange> </ observation> </component> <component> <observation moodCode= "EVN" classCode="OBS"> <templateId root="11.30.840.1.524939...4.2 " /> <id nullFlavor="NA" /> <code codeSystem="local" code= "BILIT" displayName="Bilirubin Total" /> <statusCode code="completed" / > <effectiveTime value="177085378593" /> <value unit="mg/dL" xsi:type="PQ" value="0.5" /> <referenceRange> < observationRange> <text>0.2-1.2</text> </ observationRange> </referenceRange> </observation> </ component> <component> <observation moodCode="EVN" classCode="OBS"> <templateId root="11.30.840.1.925407.10.20.22.4.2" /> <id nullFlavor="NA" /> <code codeSystem="local" code="BUN" displayName="BUN " /> <statusCode code="completed" /> <effectiveTime value= "245024389100" /> <value unit="mg/dL" xsi:type="PQ" value="6" /> <referenceRange> <observationRange> <text>4-20</text > </observationRange> </referenceRange> </observation > </component> <component> <observation moodCode="EVN" classCode="OBS"> <templateId root="11.30.840.1.975325.08.03.22.4.2" /> <id nullFlavor="NA" /> <code codeSystem="local" code="CA" displayName="Calcium" /> <statusCode code="completed" /> < effectiveTime value="424378259579" /> <value unit="mg/dL" xsi:type="PQ " value="9.3" /> <referenceRange> <observationRange> <text>8.6-10.0</text> </observationRange> </ referenceRange> </observation> </component> <component> <observation moodCode="EVN" classCode="OBS"> <templateId root= "11.30.840.1.814817.08.03.22.4.2" /> <id nullFlavor="NA" /> < code codeSystem="local" code="CL" displayName="Chloride" /> < statusCode code="completed" /> <effectiveTime value="518587052835" /> <value unit="mEq/L" xsi:type="PQ" value="108" /> < referenceRange> <observationRange> <text>99-109</text> </observationRange> </referenceRange> </observation> </component> <component> <observation moodCode="EVN" classCode ="OBS"> <templateId root="11.30.840.1.889517...4.2" /> < id nullFlavor="NA" /> <code codeSystem="local" code="CO2" displayName= "CO2" /> <statusCode code="completed" /> <effectiveTime value= "055895215860" /> <value unit="mEq/L" xsi:type="PQ" value="23" /> <referenceRange> <observationRange> <text>22-32</ text> </observationRange> </referenceRange> </ observation> </component> <component> <observation moodCode= "EVN" classCode="OBS"> <templateId root="216.840.1.276780.10...4.2 " /> <id nullFlavor="NA" /> <code codeSystem="local" code= "CREAT" displayName="Creatinine" /> <statusCode code="completed" /> <effectiveTime value="876118063493" /> <value unit="mg/dL" xsi: type="PQ" value="0.73" /> <referenceRange> <observationRange > <text>0.44-1.03</text> </observationRange> </ referenceRange> </observation> </component> <component> <observation moodCode="EVN" classCode="OBS"> <templateId root= "2.16.840.1.382391.10..22.4.2" /> <id nullFlavor="NA" /> < code codeSystem="local" code="GLOB" displayName="Globulin" /> < statusCode code="completed" /> <effectiveTime value="182672143396" /> <value unit="g/dL" xsi:type="PQ" value="2.8" /> < referenceRange> <observationRange> <text>1.9-4.3</text> </observationRange> </referenceRange> </observation > </component> <component> <observation moodCode="EVN" classCode="OBS"> <templateId root="16.840.1.360987.10.22.4.2" /> <id nullFlavor="NA" /> <code codeSystem="local" code="GLU" displayName="Glucose" /> <statusCode code="completed" /> < effectiveTime value="" /> <value unit="mg/dL" xsi:type="PQ " value="89" /> <referenceRange> <observationRange> <text>70-100</text> </observationRange> </ referenceRange> </observation> </component> <component> <observation moodCode="EVN" classCode="OBS"> <templateId root= "11.30.840.1.800228.08.03.22.4.2" /> <id nullFlavor="NA" /> < code codeSystem="local" code="K" displayName="Potassium" /> < statusCode code="completed" /> <effectiveTime value="" /> <value unit="mEq/L" xsi:type="PQ" value="3.6" /> < referenceRange> <observationRange> <text>3.6-5.1</text> </observationRange> </referenceRange> </observation > </component> <component> <observation moodCode="EVN" classCode="OBS"> <templateId root="11.30.840.1.434630.22.4.2" /> <id nullFlavor="NA" /> <code codeSystem="local" code="TP" displayName="Protein" /> <statusCode code="completed" /> < effectiveTime value="" /> <value unit="g/dL" xsi:type="PQ" value="7.0" /> <referenceRange> <observationRange> <text>6.1-7.9</text> </observationRange> </ referenceRange> </observation> </component> <component> <observation moodCode="EVN" classCode="OBS"> <templateId root= "2.16.840.1.660434.10..22.4.2" /> <id nullFlavor="NA" /> < code codeSystem="local" code="NA" displayName="Sodium" /> <statusCode code="completed" /> <effectiveTime value="425417840710" /> < value unit="mEq/L" xsi:type="PQ" value="138" /> <referenceRange> <observationRange> <text>136-144</text> </ observationRange> </referenceRange> </observation> </ component> </organizer> </entry> <entry> <organizer moodCode="EVN" classCode="BATTERY"> <templateId root="2.16.840.1.604953.10..22.4.1" /> <id nullFlavor="NA" /> <code codeSystem="local" code="LIPA" displayName="Lipase" /> <statusCode code="completed" /> <component> <observation moodCode="EVN" classCode="OBS"> <templateId root= "2.16.840.1.492661.10..22.4.2" /> <id nullFlavor="NA" /> < code codeSystem="local" code="LIPA" displayName="Lipase" /> < statusCode code="completed" /> <effectiveTime value="006212902495" /> <value unit="U/L" xsi:type="PQ" value="20" /> <referenceRange > <observationRange> <text>8-48</text> </ observationRange> </referenceRange> </observation> </ component> </organizer> </entry> <entry> <organizer moodCode="EVN" classCode="BATTERY"> <templateId root="16.840.1.396416.10.4.1" /> <id nullFlavor="NA" /> <code codeSystem="local" code="GFR" displayName ="eGFR" /> <statusCode code="completed" /> <component> < observation moodCode="EVN" classCode="OBS"> <templateId root= "840.1.736521.08.03.22.4.2" /> <id nullFlavor="NA" /> < code codeSystem="local" code="GFR" displayName="eGFR" /> <statusCode code="completed" /> <effectiveTime value="906983489028" /> < value unit="mL/min" xsi:type="PQ" value=">60" /> <referenceRange> <observationRange> <text>>60</text> </ observationRange> </referenceRange> </observation> </ component> </organizer> </entry> <entry> <organizer moodCode="EVN" classCode="BATTERY"> <templateId root="11.30.840.1.686771.08.03.224.1" /> <id nullFlavor="NA" /> <code codeSystem="local" code="UA" displayName= "Urinalysis with reflex microscopic" /> <statusCode code="completed" /> <component> <observation moodCode="EVN" classCode="OBS"> < templateId root="11.30.840.1.271944.10.4.2" /> <id nullFlavor="NA " /> <code codeSystem="local" code="UAPP" displayName="Appearance" /> <statusCode code="completed" /> <effectiveTime value= "359740705378" /> <value unit="NA" xsi:type="PQ" value="Turbid" /> <interpretationCode codeSystem="local" code="*" /> < referenceRange> <observationRange> <text /> < /observationRange> </referenceRange> </observation> </ component> <component> <observation moodCode="EVN" classCode="OBS"> <templateId root="11.30.840.1.409120.10.4.2" /> <id nullFlavor="NA" /> <code codeSystem="local" code="UBIL" displayName= "Bilirubin" /> <statusCode code="completed" /> <effectiveTime value="" /> <value unit="NA" xsi:type="PQ" value="Negative " /> <referenceRange> <observationRange> <text> Negative</text> </observationRange> </referenceRange> </observation> </component> <component> <observation moodCode ="EVN" classCode="OBS"> <templateId root= "840.1.042132.08.03.224.2" /> <id nullFlavor="NA" /> < code codeSystem="local" code="UBLD" displayName="Blood" /> <statusCode code="completed" /> <effectiveTime value="" /> < value unit="NA" xsi:type="PQ" value="Pos 1+" /> <interpretationCode codeSystem="local" code="*" /> <referenceRange> < observationRange> <text>Negative</text> </ observationRange> </referenceRange> </observation> </ component> <component> <observation moodCode="EVN" classCode="OBS"> <templateId root="11.30.840.1.609959.08.03.22.4.2" /> <id nullFlavor="NA" /> <code codeSystem="local" code="UCOLR" displayName= "Color" /> <statusCode code="completed" /> <effectiveTime value="" /> <value unit="NA" xsi:type="PQ" value="Aliza" / > <interpretationCode codeSystem="local" code="*" /> < referenceRange> <observationRange> <text /> < /observationRange> </referenceRange> </observation> </ component> <component> <observation moodCode="EVN" classCode="OBS"> <templateId root="11.30.840.1.786056.08.03.22.4.2" /> <id nullFlavor="NA" /> <code codeSystem="local" code="UGLU" displayName= "Glucose, Urine" /> <statusCode code="completed" /> < effectiveTime value="" /> <value unit="" xsi:type="PQ" value="Negative" /> <referenceRange> <observationRange> <text>Negative</text> </observationRange> </ referenceRange> </observation> </component> <component> <observation moodCode="EVN" classCode="OBS"> <templateId root= "11.30.840.1.078932.08.03.22.4.2" /> <id nullFlavor="NA" /> < code codeSystem="local" code="UKET" displayName="Ketones" /> < statusCode code="completed" /> <effectiveTime value="" /> <value unit="" xsi:type="PQ" value="Negative" /> < referenceRange> <observationRange> <text>Negative</text > </observationRange> </referenceRange> </observation > </component> <component> <observation moodCode="EVN" classCode="OBS"> <templateId root="11.30.840.1.562443.08.03.22.4.2" /> <id nullFlavor="NA" /> <code codeSystem="local" code="ULEU" displayName="Leukocyte Esterase" /> <statusCode code="completed" /> <effectiveTime value="" /> <value unit="NA" xsi:type ="PQ" value="Pos 3+" /> <interpretationCode codeSystem="local" code="* " /> <referenceRange> <observationRange> <text> Negative</text> </observationRange> </referenceRange> </observation> </component> <component> <observation moodCode ="EVN" classCode="OBS"> <templateId root= "216.840.1.238947.10..22.4.2" /> <id nullFlavor="NA" /> < code codeSystem="local" code="UNIT" displayName="Nitrites" /> < statusCode code="completed" /> <effectiveTime value="" /> <value unit="NA" xsi:type="PQ" value="Negative" /> < referenceRange> <observationRange> <text>Negative</text > </observationRange> </referenceRange> </observation > </component> <component> <observation moodCode="EVN" classCode="OBS"> <templateId root="216.840.1.096948.10..22.4.2" /> <id nullFlavor="NA" /> <code codeSystem="local" code="UPH" displayName="pH" /> <statusCode code="completed" /> < effectiveTime value="" /> <value unit="NA" xsi:type="PQ" value="7.0" /> <referenceRange> <observationRange> <text>5.0-8.0</text> </observationRange> </ referenceRange> </observation> </component> <component> <observation moodCode="EVN" classCode="OBS"> <templateId root= "16.840.1.360155.10..22.4.2" /> <id nullFlavor="NA" /> < code codeSystem="local" code="UPRO" displayName="Protein" /> < statusCode code="completed" /> <effectiveTime value="008294405582" /> <value unit="NA" xsi:type="PQ" value="Pos 2+" /> < interpretationCode codeSystem="local" code="*" /> <referenceRange> <observationRange> <text>Negative</text> </ observationRange> </referenceRange> </observation> </ component> <component> <observation moodCode="EVN" classCode="OBS"> <templateId root="11.30.840.1.772681.08.03.22.4.2" /> <id nullFlavor="NA" /> <code codeSystem="local" code="USPG" displayName= "Specific Quinlan" /> <statusCode code="completed" /> < effectiveTime value="979649353439" /> <value unit="NA" xsi:type="PQ" value="1.015" /> <referenceRange> <observationRange> <text>1.003-1.030</text> </observationRange> </ referenceRange> </observation> </component> <component> <observation moodCode="EVN" classCode="OBS"> <templateId root= "16.840.1.996713.10..4.2" /> <id nullFlavor="NA" /> < code codeSystem="local" code="UTYP" displayName="UA Collection type" /> <statusCode code="completed" /> <effectiveTime value="432692198463" / > <value unit="NA" xsi:type="PQ" value="Clean Catch" /> < referenceRange> <observationRange> <text /> < /observationRange> </referenceRange> </observation> </ component> <component> <observation moodCode="EVN" classCode="OBS"> <templateId root="216.840.1.102878.10.4.2" /> <id nullFlavor="NA" /> <code codeSystem="local" code="UURO" displayName= "Urobilinogen" /> <statusCode code="completed" /> < effectiveTime value="283708078359" /> <value unit="mg/dL" xsi:type="PQ " value="Negative" /> <referenceRange> <observationRange> <text><1.0</text> </observationRange> </ referenceRange> </observation> </component> </organizer> </entry > <entry> <organizer moodCode="EVN" classCode="BATTERY"> <templateId root="216.840.1.884625.10..22.4.1" /> <id nullFlavor="NA" /> <code codeSystem="local" code="UMIC" displayName="Urine Microscopic" /> < statusCode code="completed" /> <component> <observation moodCode= "EVN" classCode="OBS"> <templateId root="216.840.1.708875.10..22.4.2 " /> <id nullFlavor="NA" /> <code codeSystem="local" code= "UTRIC" displayName="Trichomonas" /> <statusCode code="completed" /> <effectiveTime value="307579271338" /> <value unit="NA" xsi: type="PQ" value="Present" /> <interpretationCode codeSystem="local" code="*" /> <referenceRange> <observationRange> <text /> </observationRange> </referenceRange> </ observation> </component> <component> <observation moodCode= "EVN" classCode="OBS"> <templateId root="11.30.840.1.891860.10.22.4.2 " /> <id nullFlavor="NA" /> <code codeSystem="local" code= "UBAC" displayName="Bacteria" /> <statusCode code="completed" /> <effectiveTime value="" /> <value unit="NA" xsi:type= "PQ" value="Moderate" /> <interpretationCode codeSystem="local" code="* " /> <referenceRange> <observationRange> <text /> </observationRange> </referenceRange> </ observation> </component> <component> <observation moodCode= "EVN" classCode="OBS"> <templateId root="11.30.840.1.333162.10.4.2 " /> <id nullFlavor="NA" /> <code codeSystem="local" code= "UEPI" displayName="Epithelial Cells" /> <statusCode code="completed" / > <effectiveTime value="" /> <value unit="/HPF" xsi:type="PQ" value="10" /> <referenceRange> < observationRange> <text /> </observationRange> </referenceRange> </observation> </component> <component> <observation moodCode="EVN" classCode="OBS"> <templateId root= "11.30.840.1.599685.10.2022.4.2" /> <id nullFlavor="NA" /> < code codeSystem="local" code="URBC" displayName="RBC, Urine" /> < statusCode code="completed" /> <effectiveTime value="626168164530" /> <value unit="/HPF" xsi:type="PQ" value="2" /> <referenceRange > <observationRange> <text>0-2</text> </ observationRange> </referenceRange> </observation> </ component> <component> <observation moodCode="EVN" classCode="OBS"> <templateId root="216.840.1.623755.10..4.2" /> <id nullFlavor="NA" /> <code codeSystem="local" code="UMUC" displayName= "Urine Mucus" /> <statusCode code="completed" /> < effectiveTime value="710482419486" /> <value unit="NA" xsi:type="PQ" value="Present" /> <referenceRange> <observationRange> <text /> </observationRange> </referenceRange> </observation> </component> <component> <observation moodCode="EVN" classCode="OBS"> <templateId root= "216.840.1.980497.08.03.22.4.2" /> <id nullFlavor="NA" /> < code codeSystem="local" code="UWBC" displayName="WBC, Urine" /> < statusCode code="completed" /> <effectiveTime value="741845686926" /> <value unit="/HPF" xsi:type="PQ" value="10" /> < interpretationCode codeSystem="local" code="*" /> <referenceRange> <observationRange> <text>0-4</text> </ observationRange> </referenceRange> </observation> </ component> </organizer> </entry> <entry> <organizer moodCode="EVN" classCode="BATTERY"> <templateId root="216.840.1.785097.10..4.1" /> <id nullFlavor="NA" /> <code codeSystem="local" code="PREGN" displayName=" Screen, Urine NPT" /> <statusCode code="completed" / > <component> <observation moodCode="EVN" classCode="OBS"> <templateId root="16.840.1.068599.10..4.2" /> <id nullFlavor="NA " /> <code codeSystem="local" code="PREGN" displayName=" Screen, Urine NPT" /> <statusCode code="completed" /> < effectiveTime value="150726190955" /> <value unit="NA" xsi:type="PQ" value="Negative" /> <referenceRange> <observationRange> <text /> </observationRange> </referenceRange> </observation> </component> </organizer> </entry> <entry> < organizer moodCode="EVN" classCode="BATTERY"> <templateId root= "16.840.1.714257.10...4.1" /> <id nullFlavor="NA" /> <code codeSystem="local" code="UPREG" displayName=" Screen, Urine" /> < statusCode code="completed" /> <component> <observation moodCode= "EVN" classCode="OBS"> <templateId root="16.840.1.235225.10..22.4.2 " /> <id nullFlavor="NA" /> <code codeSystem="local" code= "UPREG" displayName=" Screen, Urine" /> <statusCode code= "completed" /> <effectiveTime value="365737088296" /> <value unit="NA" xsi:type="PQ" value="Negative" /> <referenceRange> <observationRange> <text /> </observationRange> </referenceRange> </observation> </component> </organizer> < /entry> <entry> <organizer moodCode="EVN" classCode="BATTERY"> < templateId root="216.840.1.475194.08.03.22.4.1" /> <id nullFlavor="NA" /> <code codeSystem="local" code="UA" displayName="Urinalysis with reflex microscopic" /> <statusCode code="completed" /> <component> < observation moodCode="EVN" classCode="OBS"> <templateId root= "16.840.1.041246.08.03.22.4.2" /> <id nullFlavor="NA" /> < code codeSystem="local" code="UAPP" displayName="Appearance" /> < statusCode code="completed" /> <effectiveTime value="" /> <value unit="NA" xsi:type="PQ" value="Sl Cloudy" /> < referenceRange> <observationRange> <text /> < /observationRange> </referenceRange> </observation> </ component> <component> <observation moodCode="EVN" classCode="OBS"> <templateId root="11.30.840.1.232280.08.03.22.4.2" /> <id nullFlavor="NA" /> <code codeSystem="local" code="UBIL" displayName= "Bilirubin" /> <statusCode code="completed" /> <effectiveTime value="" /> <value unit="NA" xsi:type="PQ" value="Negative " /> <referenceRange> <observationRange> <text> Negative</text> </observationRange> </referenceRange> </observation> </component> <component> <observation moodCode ="EVN" classCode="OBS"> <templateId root= "11.30.840.1.678971.08.03.22.4.2" /> <id nullFlavor="NA" /> < code codeSystem="local" code="UBLD" displayName="Blood" /> <statusCode code="completed" /> <effectiveTime value="868429507353" /> < value unit="NA" xsi:type="PQ" value="Negative" /> <referenceRange> <observationRange> <text>Negative</text> </ observationRange> </referenceRange> </observation> </ component> <component> <observation moodCode="EVN" classCode="OBS"> <templateId root="216.840.1.867763.08.03.22.4.2" /> <id nullFlavor="NA" /> <code codeSystem="local" code="UCOLR" displayName= "Color" /> <statusCode code="completed" /> <effectiveTime value="541084583179" /> <value unit="NA" xsi:type="PQ" value="Aliza" / > <interpretationCode codeSystem="local" code="*" /> < referenceRange> <observationRange> <text /> < /observationRange> </referenceRange> </observation> </ component> <component> <observation moodCode="EVN" classCode="OBS"> <templateId root="11.30.840.1.367954.08.03.22.4.2" /> <id nullFlavor="NA" /> <code codeSystem="local" code="UGLU" displayName= "Glucose, Urine" /> <statusCode code="completed" /> < effectiveTime value="042049752965" /> <value unit="" xsi:type="PQ" value="Negative" /> <referenceRange> <observationRange> <text>Negative</text> </observationRange> </ referenceRange> </observation> </component> <component> <observation moodCode="EVN" classCode="OBS"> <templateId root= "16.840.1.438419.10.4.2" /> <id nullFlavor="NA" /> < code codeSystem="local" code="UKET" displayName="Ketones" /> < statusCode code="completed" /> <effectiveTime value="641206773427" /> <value unit="" xsi:type="PQ" value="Trace" /> < interpretationCode codeSystem="local" code="*" /> <referenceRange> <observationRange> <text>Negative</text> </ observationRange> </referenceRange> </observation> </ component> <component> <observation moodCode="EVN" classCode="OBS"> <templateId root="216.840.1.909475.10..22.4.2" /> <id nullFlavor="NA" /> <code codeSystem="local" code="ULEU" displayName= "Leukocyte Esterase" /> <statusCode code="completed" /> < effectiveTime value="539040884161" /> <value unit="NA" xsi:type="PQ" value="Pos 3+" /> <interpretationCode codeSystem="local" code="*" /> <referenceRange> <observationRange> <text> Negative</text> </observationRange> </referenceRange> </observation> </component> <component> <observation moodCode ="EVN" classCode="OBS"> <templateId root= "16.840.1.459960.10...4.2" /> <id nullFlavor="NA" /> < code codeSystem="local" code="UNIT" displayName="Nitrites" /> < statusCode code="completed" /> <effectiveTime value="969922808071" /> <value unit="NA" xsi:type="PQ" value="Positive" /> < interpretationCode codeSystem="local" code="*" /> <referenceRange> <observationRange> <text>Negative</text> </ observationRange> </referenceRange> </observation> </ component> <component> <observation moodCode="EVN" classCode="OBS"> <templateId root="16.840.1.839328.10..22.4.2" /> <id nullFlavor="NA" /> <code codeSystem="local" code="UPH" displayName="pH " /> <statusCode code="completed" /> <effectiveTime value= "022474323834" /> <value unit="NA" xsi:type="PQ" value="5.0" /> <referenceRange> <observationRange> <text>5.0-8.0</ text> </observationRange> </referenceRange> </ observation> </component> <component> <observation moodCode= "EVN" classCode="OBS"> <templateId root="11.30.840.1.631813.10...4.2 " /> <id nullFlavor="NA" /> <code codeSystem="local" code= "UPRO" displayName="Protein" /> <statusCode code="completed" /> <effectiveTime value="155546811595" /> <value unit="NA" xsi:type="PQ " value="Negative" /> <referenceRange> <observationRange> <text>Negative</text> </observationRange> </ referenceRange> </observation> </component> <component> <observation moodCode="EVN" classCode="OBS"> <templateId root= "11.30.840.1.283444.10..22.4.2" /> <id nullFlavor="NA" /> < code codeSystem="local" code="USPG" displayName="Specific Quinlan" /> < statusCode code="completed" /> <effectiveTime value="412751212223" /> <value unit="NA" xsi:type="PQ" value="1.010" /> < referenceRange> <observationRange> <text>1.003-1.030</ text> </observationRange> </referenceRange> </ observation> </component> <component> <observation moodCode= "EVN" classCode="OBS"> <templateId root="216.840.1.816659.10.4.2 " /> <id nullFlavor="NA" /> <code codeSystem="local" code= "UTYP" displayName="UA Collection type" /> <statusCode code="completed " /> <effectiveTime value="749651324017" /> <value unit="NA" xsi:type="PQ" value="Clean Catch" /> <referenceRange> < observationRange> <text /> </observationRange> </referenceRange> </observation> </component> <component> <observation moodCode="EVN" classCode="OBS"> <templateId root= "216.840.1.425384.08.03.22.4.2" /> <id nullFlavor="NA" /> < code codeSystem="local" code="UURO" displayName="Urobilinogen" /> < statusCode code="completed" /> <effectiveTime value="698111251037" /> <value unit="mg/dL" xsi:type="PQ" value="2.0" /> < interpretationCode codeSystem="local" code="*" /> <referenceRange> <observationRange> <text><1.0</text> </ observationRange> </referenceRange> </observation> </ component> </organizer> </entry> <entry> <organizer moodCode="EVN" classCode="BATTERY"> <templateId root="216.840.1.077977.08.03.22.4.1" /> <id nullFlavor="NA" /> <code codeSystem="local" code="UMIC" displayName="Urine Microscopic" /> <statusCode code="completed" /> < component> <observation moodCode="EVN" classCode="OBS"> < templateId root="16.840.1.815009.1022.4.2" /> <id nullFlavor="NA " /> <code codeSystem="local" code="UBAC" displayName="Bacteria" /> <statusCode code="completed" /> <effectiveTime value= "" /> <value unit="NA" xsi:type="PQ" value="Occasional" /> <interpretationCode codeSystem="local" code="*" /> < referenceRange> <observationRange> <text /> < /observationRange> </referenceRange> </observation> </ component> <component> <observation moodCode="EVN" classCode="OBS"> <templateId root="16.840.1.194980.10.4.2" /> <id nullFlavor="NA" /> <code codeSystem="local" code="UEPI" displayName= "Epithelial Cells" /> <statusCode code="completed" /> < effectiveTime value="" /> <value unit="/HPF" xsi:type="PQ" value="2" /> <referenceRange> <observationRange> <text /> </observationRange> </referenceRange> </ observation> </component> <component> <observation moodCode= "EVN" classCode="OBS"> <templateId root="16.840.1.548067.10.22.4.2 " /> <id nullFlavor="NA" /> <code codeSystem="local" code= "URBC" displayName="RBC, Urine" /> <statusCode code="completed" /> <effectiveTime value="" /> <value unit="/HPF" xsi: type="PQ" value="0" /> <referenceRange> <observationRange> <text>0-2</text> </observationRange> </ referenceRange> </observation> </component> <component> <observation moodCode="EVN" classCode="OBS"> <templateId root= "216.840.1.136194.10.4.2" /> <id nullFlavor="NA" /> < code codeSystem="local" code="UMUC" displayName="Urine Mucus" /> < statusCode code="completed" /> <effectiveTime value="109183216126" /> <value unit="NA" xsi:type="PQ" value="Present" /> < referenceRange> <observationRange> <text /> < /observationRange> </referenceRange> </observation> </ component> <component> <observation moodCode="EVN" classCode="OBS"> <templateId root="216.840.1.536860.08.03.22.4.2" /> <id nullFlavor="NA" /> <code codeSystem="local" code="UWBC" displayName= "WBC, Urine" /> <statusCode code="completed" /> < effectiveTime value="199565414621" /> <value unit="/HPF" xsi:type="PQ" value="10" /> <interpretationCode codeSystem="local" code="*" /> <referenceRange> <observationRange> <text>0-4</text > </observationRange> </referenceRange> </observation > </component> </organizer> </entry> <entry> <organizer moodCode= "EVN" classCode="BATTERY"> <templateId root="2.16.840.1.891985.08.03.22.4.1 " /> <id nullFlavor="NA" /> <code codeSystem="local" code="UDRGH" displayName="Urine Drug Screen" /> <statusCode code="completed" /> < component> <observation moodCode="EVN" classCode="OBS"> < templateId root="216.840.1.172747.10..22.4.2" /> <id nullFlavor="NA " /> <code codeSystem="local" code="UAMP1" displayName="Amph/Meth/ Ecstasy" /> <statusCode code="completed" /> <effectiveTime value="551500481098" /> <value unit="NA" xsi:type="PQ" value="Positive " /> <interpretationCode codeSystem="local" code="*" /> < referenceRange> <observationRange> <text /> < /observationRange> </referenceRange> </observation> </ component> <component> <observation moodCode="EVN" classCode="OBS"> <templateId root="216.840.1.684644.08.03.22.4.2" /> <id nullFlavor="NA" /> <code codeSystem="local" code="UBAR1" displayName= "Barbiturates" /> <statusCode code="completed" /> < effectiveTime value="600143420868" /> <value unit="NA" xsi:type="PQ" value="Negative" /> <referenceRange> <observationRange> <text /> </observationRange> </referenceRange> </observation> </component> <component> <observation moodCode="EVN" classCode="OBS"> <templateId root= "216.840.1.744234.10...4.2" /> <id nullFlavor="NA" /> < code codeSystem="local" code="UBEN1" displayName="Benzodiazepine" /> < statusCode code="completed" /> <effectiveTime value="816632226404" /> <value unit="NA" xsi:type="PQ" value="Negative" /> < referenceRange> <observationRange> <text /> < /observationRange> </referenceRange> </observation> </ component> <component> <observation moodCode="EVN" classCode="OBS"> <templateId root="16.840.1.283345.10.4.2" /> <id nullFlavor="NA" /> <code codeSystem="local" code="UCAN1" displayName= "Cannabinoid" /> <statusCode code="completed" /> < effectiveTime value="333575442378" /> <value unit="NA" xsi:type="PQ" value="Positive" /> <interpretationCode codeSystem="local" code="*" /> <referenceRange> <observationRange> <text /> </observationRange> </referenceRange> </observation> </component> <component> <observation moodCode="EVN" classCode ="OBS"> <templateId root="11.30.840.1.243098.08.03.22.4.2" /> < id nullFlavor="NA" /> <code codeSystem="local" code="UCOC1" displayName ="Cocaine" /> <statusCode code="completed" /> <effectiveTime value="177415140846" /> <value unit="NA" xsi:type="PQ" value="Negative " /> <referenceRange> <observationRange> <text /> </observationRange> </referenceRange> </ observation> </component> <component> <observation moodCode= "EVN" classCode="OBS"> <templateId root="11.30.840.1.025258.08.03.22.4.2 " /> <id nullFlavor="NA" /> <code codeSystem="local" code= "UMTD1" displayName="EDDP (Methadone met.)" /> <statusCode code= "completed" /> <effectiveTime value="977473440163" /> <value unit="NA" xsi:type="PQ" value="Negative" /> <referenceRange> <observationRange> <text /> </observationRange> </referenceRange> </observation> </component> <component> <observation moodCode="EVN" classCode="OBS"> <templateId root= "16.840.1.947214.10..22.4.2" /> <id nullFlavor="NA" /> < code codeSystem="local" code="UOPI1" displayName="Opiate" /> < statusCode code="completed" /> <effectiveTime value="811092592094" /> <value unit="NA" xsi:type="PQ" value="Negative" /> < referenceRange> <observationRange> <text /> < /observationRange> </referenceRange> </observation> </ component> <component> <observation moodCode="EVN" classCode="OBS"> <templateId root="11.30.840.1.835058.10...4.2" /> <id nullFlavor="NA" /> <code codeSystem="local" code="UPCP1" displayName= "Phencyclidine (PCP)" /> <statusCode code="completed" /> < effectiveTime value="992337500205" /> <value unit="NA" xsi:type="PQ" value="Negative" /> <referenceRange> <observationRange> <text /> </observationRange> </referenceRange> </observation> </component> </organizer> </entry> <entry> < organizer moodCode="EVN" classCode="BATTERY"> <templateId root= "11.30.840.1.342691.10..22.4.1" /> <id nullFlavor="NA" /> <code codeSystem="local" code="UA" displayName="URINALYSIS, ROUTINE" /> < statusCode code="completed" /> <component> <observation moodCode= "EVN" classCode="OBS"> <templateId root="216.840.1.039662.10..4.2 " /> <id nullFlavor="NA" /> <code codeSystem="local" code= "LEUESU" displayName="UA LEUKOCYTE ESTERASE DIPSTICK" /> <statusCode code="completed" /> <effectiveTime value="" /> < value unit="" xsi:type="PQ" value="NEGATIVE" /> <referenceRange> <observationRange> <text>NEGATIVE</text> </ observationRange> </referenceRange> </observation> </ component> <component> <observation moodCode="EVN" classCode="OBS"> <templateId root="216.840.1.524511.08.03.22.4.2" /> <id nullFlavor="NA" /> <code codeSystem="local" code="NITRIU" displayName= "UA NITRITE DIPSTICK" /> <statusCode code="completed" /> < effectiveTime value="" /> <value unit="" xsi:type="PQ" value="NEGATIVE" /> <referenceRange> <observationRange> <text>NEGATIVE</text> </observationRange> </ referenceRange> </observation> </component> <component> <observation moodCode="EVN" classCode="OBS"> <templateId root= "16.840.1.465520.10..4.2" /> <id nullFlavor="NA" /> < code codeSystem="local" code="PROTEIU" displayName="UA PROTEIN DIPSTICK" /> <statusCode code="completed" /> <effectiveTime value= "077854918332" /> <value unit="" xsi:type="PQ" value="NEGATIVE" /> <referenceRange> <observationRange> <text>NEGATIVE </text> </observationRange> </referenceRange> </ observation> </component> <component> <observation moodCode= "EVN" classCode="OBS"> <templateId root="16.840.1.399526.10.4.2 " /> <id nullFlavor="NA" /> <code codeSystem="local" code= "DGLUU" displayName="UA GLUCOSE DIPSTICK" /> <statusCode code= "completed" /> <effectiveTime value="" /> <value unit="" xsi:type="PQ" value="NEGATIVE" /> <referenceRange> < observationRange> <text>NEGATIVE</text> </ observationRange> </referenceRange> </observation> </ component> <component> <observation moodCode="EVN" classCode="OBS"> <templateId root="11.30.840.1.006708.08.03.22.4.2" /> <id nullFlavor="NA" /> <code codeSystem="local" code="KETONU" displayName= "UA KETONE DIPSTICK" /> <statusCode code="completed" /> < effectiveTime value="" /> <value unit="" xsi:type="PQ" value="NEGATIVE" /> <referenceRange> <observationRange> <text>NEGATIVE</text> </observationRange> </ referenceRange> </observation> </component> <component> <observation moodCode="EVN" classCode="OBS"> <templateId root= "11.30.840.1.163110.08.03.22.4.2" /> <id nullFlavor="NA" /> < code codeSystem="local" code="UROBILU" displayName="UA UROBILINOGEN DIPSTICK" / > <statusCode code="completed" /> <effectiveTime value= "" /> <value unit="" xsi:type="PQ" value="NORMAL" /> <referenceRange> <observationRange> <text>NORMAL</ text> </observationRange> </referenceRange> </ observation> </component> <component> <observation moodCode= "EVN" classCode="OBS"> <templateId root="16.840.1.254816.10..4.2 " /> <id nullFlavor="NA" /> <code codeSystem="local" code= "BILU" displayName="UA BILIRUBIN DIPSTICK" /> <statusCode code= "completed" /> <effectiveTime value="372578617240" /> <value unit="" xsi:type="PQ" value="NEGATIVE" /> <referenceRange> < observationRange> <text>NEGATIVE</text> </ observationRange> </referenceRange> </observation> </ component> <component> <observation moodCode="EVN" classCode="OBS"> <templateId root="11.30.840.1.594682.08.03.22.4.2" /> <id nullFlavor="NA" /> <code codeSystem="local" code="ABDELRAHMAN" displayName="UA BLOOD DIPSTICK" /> <statusCode code="completed" /> < effectiveTime value="837797874003" /> <value unit="" xsi:type="PQ" value="NEGATIVE" /> <referenceRange> <observationRange> <text>NEGATIVE</text> </observationRange> </ referenceRange> </observation> </component> <component> <observation moodCode="EVN" classCode="OBS"> <templateId root= "11.30.840.1.727755.08.03.22.4.2" /> <id nullFlavor="NA" /> < code codeSystem="local" code="SPGRU" displayName="UA SPECIFIC GRAVITY" /> <statusCode code="completed" /> <effectiveTime value="722451547194 " /> <value unit="" xsi:type="PQ" value=">=1.030" /> < interpretationCode codeSystem="local" code="*" /> <referenceRange> <observationRange> <text>1.015-1.025</text> </ observationRange> </referenceRange> </observation> </ component> <component> <observation moodCode="EVN" classCode="OBS"> <templateId root="16.840.1.493864.10.4.2" /> <id nullFlavor="NA" /> <code codeSystem="local" code="COLTON" displayName="UR PH" /> <statusCode code="completed" /> <effectiveTime value= "696202141850" /> <value unit="" xsi:type="PQ" value="5.5" /> <referenceRange> <observationRange> <text>5.0-7.0</text > </observationRange> </referenceRange> </observation > </component> </organizer> </entry> <entry> <organizer moodCode= "EVN" classCode="BATTERY"> <templateId root="11.30.840.1.293029.08.03.22.4.1 " /> <id nullFlavor="NA" /> <code codeSystem="local" code="PREGU" displayName="UR TEST" /> <statusCode code="completed" /> < component> <observation moodCode="EVN" classCode="OBS"> < templateId root="11.30.840.1.054474.1022.4.2" /> <id nullFlavor="NA " /> <code codeSystem="local" code="PREGU" displayName="UR TEST" /> <statusCode code="completed" /> <effectiveTime value= "226990374508" /> <value unit="" xsi:type="PQ" value="NEGATIVE" /> <referenceRange> <observationRange> <text>NEGATIVE </text> </observationRange> </referenceRange> </ observation> </component> </organizer> </entry> <entry> <organizer moodCode="EVN" classCode="BATTERY"> <templateId root= "16.840.1.169247.08.03.22.4.1" /> <id nullFlavor="NA" /> <code codeSystem="local" code="UPREG" displayName=" Screen, Urine" /> < statusCode code="completed" /> <component> <observation moodCode= "EVN" classCode="OBS"> <templateId root="16.840.1.471946...4.2 " /> <id nullFlavor="NA" /> <code codeSystem="local" code= "UPREG" displayName=" Screen, Urine" /> <statusCode code= "completed" /> <effectiveTime value="706087489378" /> <value unit="NA" xsi:type="PQ" value="Negative" /> <referenceRange> <observationRange> <text /> </observationRange> </referenceRange> </observation> </component> </organizer> < /entry> <entry> <organizer moodCode="EVN" classCode="BATTERY"> < templateId root="16.840.1.287211.08.03.22.4.1" /> <id nullFlavor="NA" /> <code codeSystem="local" code="CBCWD" displayName="CBC With Platelet and Differential" /> <statusCode code="completed" /> <component> < observation moodCode="EVN" classCode="OBS"> <templateId root= "11.30.840.1.258128.08.03.22.4.2" /> <id nullFlavor="NA" /> < code codeSystem="local" code="ABASR" displayName="Absolute Basophils" /> <statusCode code="completed" /> <effectiveTime value="" /> <value unit="10*3/uL" xsi:type="PQ" value="0.03" /> < referenceRange> <observationRange> <text>0.00-0.20</text > </observationRange> </referenceRange> </observation > </component> <component> <observation moodCode="EVN" classCode="OBS"> <templateId root="216.840.1.719064.08.03.22.4.2" /> <id nullFlavor="NA" /> <code codeSystem="local" code="AEOSR" displayName="Absolute Eosinophils" /> <statusCode code="completed" /> <effectiveTime value="" /> <value unit="10*3/uL" xsi:type="PQ" value="0.49" /> <referenceRange> < observationRange> <text>0.00-0.50</text> </ observationRange> </referenceRange> </observation> </ component> <component> <observation moodCode="EVN" classCode="OBS"> <templateId root="216.840.1.200327.08.03.22.4.2" /> <id nullFlavor="NA" /> <code codeSystem="local" code="ALYMR" displayName= "Absolute Lymphocytes" /> <statusCode code="completed" /> < effectiveTime value="" /> <value unit="10*3/uL" xsi:type= "PQ" value="2.01" /> <referenceRange> <observationRange> <text>0.80-3.30</text> </observationRange> </ referenceRange> </observation> </component> <component> <observation moodCode="EVN" classCode="OBS"> <templateId root= "216.840.1.947810.10.4.2" /> <id nullFlavor="NA" /> < code codeSystem="local" code="AMONR" displayName="Absolute Monocytes" /> <statusCode code="completed" /> <effectiveTime value="" /> <value unit="10*3/uL" xsi:type="PQ" value="0.72" /> < referenceRange> <observationRange> <text>0.30-1.00</text > </observationRange> </referenceRange> </observation > </component> <component> <observation moodCode="EVN" classCode="OBS"> <templateId root="11.30.840.1.003824.08.03.22.4.2" /> <id nullFlavor="NA" /> <code codeSystem="local" code="ASEGR" displayName="Absolute Neutrophils" /> <statusCode code="completed" /> <effectiveTime value="" /> <value unit="10*3/uL" xsi:type="PQ" value="5.63" /> <referenceRange> < observationRange> <text>1.90-7.00</text> </ observationRange> </referenceRange> </observation> </ component> <component> <observation moodCode="EVN" classCode="OBS"> <templateId root="11.30.840.1.444113.08.03.22.4.2" /> <id nullFlavor="NA" /> <code codeSystem="local" code="BASOR" displayName= "Basophils" /> <statusCode code="completed" /> <effectiveTime value="" /> <value unit="%" xsi:type="PQ" value="0" /> <referenceRange> <observationRange> <text>0-2< /text> </observationRange> </referenceRange> </ observation> </component> <component> <observation moodCode= "EVN" classCode="OBS"> <templateId root="216.840.1.628718.10..22.4.2 " /> <id nullFlavor="NA" /> <code codeSystem="local" code= "EOSR" displayName="Eosinophils" /> <statusCode code="completed" /> <effectiveTime value="[id number]" /> <value unit="%" xsi: type="PQ" value="6" /> <interpretationCode codeSystem="local" code="*" /> <referenceRange> <observationRange> <text>0- 4</text> </observationRange> </referenceRange> </ observation> </component> <component> <observation moodCode= "EVN" classCode="OBS"> <templateId root="16.840.1.222642.08.03.22.4.2 " /> <id nullFlavor="NA" /> <code codeSystem="local" code="HCT " displayName="HCT" /> <statusCode code="completed" /> < effectiveTime value="[id number]" /> <value unit="%" xsi:type="PQ " value="36.1" /> <interpretationCode codeSystem="local" code="*" /> <referenceRange> <observationRange> <text>37.0- 47.0</text> </observationRange> </referenceRange> </ observation> </component> <component> <observation moodCode= "EVN" classCode="OBS"> <templateId root="16.840.1.308646.22.4.2 " /> <id nullFlavor="NA" /> <code codeSystem="local" code="HGB " displayName="HGB" /> <statusCode code="completed" /> < effectiveTime value="402019681981" /> <value unit="g/dL" xsi:type="PQ" value="12.3" /> <referenceRange> <observationRange> <text>12.0-16.0</text> </observationRange> </ referenceRange> </observation> </component> <component> <observation moodCode="EVN" classCode="OBS"> <templateId root= "2.16.840.1.422897.08.03.22.4.2" /> <id nullFlavor="NA" /> < code codeSystem="local" code="IMGA" displayName="Immature Granulocytes" /> <statusCode code="completed" /> <effectiveTime value=" " /> <value unit="%" xsi:type="PQ" value="0.2" /> < referenceRange> <observationRange> <text>0.0-1.0</text> </observationRange> </referenceRange> </observation > </component> <component> <observation moodCode="EVN" classCode="OBS"> <templateId root="2.16.840.1.628837.08.03.22.4.2" /> <id nullFlavor="NA" /> <code codeSystem="local" code="LYMPR" displayName="Lymphocytes" /> <statusCode code="completed" /> < effectiveTime value="" /> <value unit="%" xsi:type="PQ " value="23" /> <referenceRange> <observationRange> <text>20-46</text> </observationRange> </ referenceRange> </observation> </component> <component> <observation moodCode="EVN" classCode="OBS"> <templateId root= "16.840.1.310661.10.20.22.4.2" /> <id nullFlavor="NA" /> < code codeSystem="local" code="MCH" displayName="MCH" /> <statusCode code="completed" /> <effectiveTime value="" /> < value unit="pg" xsi:type="PQ" value="31.3" /> <referenceRange> <observationRange> <text>27.0-32.0</text> </ observationRange> </referenceRange> </observation> </ component> <component> <observation moodCode="EVN" classCode="OBS"> <templateId root="11.30.840.1.727920.10..22.4.2" /> <id nullFlavor="NA" /> <code codeSystem="local" code="MCHC" displayName= "MCHC" /> <statusCode code="completed" /> <effectiveTime value ="" /> <value unit="g/dL" xsi:type="PQ" value="34.1" /> <referenceRange> <observationRange> <text>32.0- 36.0</text> </observationRange> </referenceRange> </ observation> </component> <component> <observation moodCode= "EVN" classCode="OBS"> <templateId root="11.30.840.1.033141.10.20.22.4.2 " /> <id nullFlavor="NA" /> <code codeSystem="local" code="MCV " displayName="MCV" /> <statusCode code="completed" /> < effectiveTime value="" /> <value unit="fL" xsi:type="PQ" value="91.9" /> <referenceRange> <observationRange> <text>82.0-99.0</text> </observationRange> </ referenceRange> </observation> </component> <component> <observation moodCode="EVN" classCode="OBS"> <templateId root= "216.840.1.339006.10.4.2" /> <id nullFlavor="NA" /> < code codeSystem="local" code="MONOR" displayName="Monocytes" /> < statusCode code="completed" /> <effectiveTime value="" /> <value unit="%" xsi:type="PQ" value="8" /> <referenceRange > <observationRange> <text>4-11</text> </ observationRange> </referenceRange> </observation> </ component> <component> <observation moodCode="EVN" classCode="OBS"> <templateId root="11.30.840.1.617537.08.03.22.4.2" /> <id nullFlavor="NA" /> <code codeSystem="local" code="MPV" displayName="MPV " /> <statusCode code="completed" /> <effectiveTime value= "" /> <value unit="fL" xsi:type="PQ" value="10.1" /> <referenceRange> <observationRange> <text>9.4-12.4</ text> </observationRange> </referenceRange> </ observation> </component> <component> <observation moodCode= "EVN" classCode="OBS"> <templateId root="11.30.840.1.192464.08.03.22.4.2 " /> <id nullFlavor="NA" /> <code codeSystem="local" code= "SEGR" displayName="Neutrophils" /> <statusCode code="completed" /> <effectiveTime value="" /> <value unit="%" xsi: type="PQ" value="63" /> <referenceRange> <observationRange> <text>51-75</text> </observationRange> </ referenceRange> </observation> </component> <component> <observation moodCode="EVN" classCode="OBS"> <templateId root= "16.840.1.330674.10..4.2" /> <id nullFlavor="NA" /> < code codeSystem="local" code="NRBCA" displayName="Nucleated RBC Automated" /> <statusCode code="completed" /> <effectiveTime value= "" /> <value unit="/100WBC" xsi:type="PQ" value="0.0" /> <referenceRange> <observationRange> <text /> </observationRange> </referenceRange> </observation> </component> <component> <observation moodCode="EVN" classCode= "OBS"> <templateId root="840.1.365798...4.2" /> < id nullFlavor="NA" /> <code codeSystem="local" code="PLT" displayName= "Platelet Count" /> <statusCode code="completed" /> < effectiveTime value="120100070943" /> <value unit="K/uL" xsi:type="PQ" value="240" /> <referenceRange> <observationRange> <text>150-400</text> </observationRange> </ referenceRange> </observation> </component> <component> <observation moodCode="EVN" classCode="OBS"> <templateId root= "840.1.758922.10.2022.4.2" /> <id nullFlavor="NA" /> < code codeSystem="local" code="RBC" displayName="RBC" /> <statusCode code="completed" /> <effectiveTime value="216932023739" /> < value unit="10*6/uL" xsi:type="PQ" value="3.93" /> <interpretationCode codeSystem="local" code="*" /> <referenceRange> < observationRange> <text>4.00-5.20</text> </ observationRange> </referenceRange> </observation> </ component> <component> <observation moodCode="EVN" classCode="OBS"> <templateId root="2.16.840.1.670984.10.20.22.4.2" /> <id nullFlavor="NA" /> <code codeSystem="local" code="RDW" displayName="RDW " /> <statusCode code="completed" /> <effectiveTime value= "" /> <value unit="%" xsi:type="PQ" value="12.9" /> <referenceRange> <observationRange> <text>11.5- 14.5</text> </observationRange> </referenceRange> </ observation> </component> <component> <observation moodCode= "EVN" classCode="OBS"> <templateId root="2.16.840.1.669626.10.20.22.4.2 " /> <id nullFlavor="NA" /> <code codeSystem="local" code= "WBCIR" displayName="WBC" /> <statusCode code="completed" /> < effectiveTime value="065166113355" /> <value unit="K/uL" xsi:type="PQ" value="8.9" /> <referenceRange> <observationRange> <text>4.8-10.8</text> </observationRange> </ referenceRange> </observation> </component> </organizer> </entry > <entry> <organizer moodCode="EVN" classCode="BATTERY"> <templateId root="11.30.840.1.840646.08.03.22.4.1" /> <id nullFlavor="NA" /> <code codeSystem="local" code="UA" displayName="Urinalysis with reflex microscopic" / > <statusCode code="completed" /> <component> <observation moodCode="EVN" classCode="OBS"> <templateId root= "840.1.568839.08.03.22.4.2" /> <id nullFlavor="NA" /> < code codeSystem="local" code="UAPP" displayName="Appearance" /> < statusCode code="completed" /> <effectiveTime value="548720141875" /> <value unit="NA" xsi:type="PQ" value="Sl Cloudy" /> < referenceRange> <observationRange> <text /> < /observationRange> </referenceRange> </observation> </ component> <component> <observation moodCode="EVN" classCode="OBS"> <templateId root="840.1.673646.08.03.22.4.2" /> <id nullFlavor="NA" /> <code codeSystem="local" code="UBIL" displayName= "Bilirubin" /> <statusCode code="completed" /> <effectiveTime value="605093532473" /> <value unit="NA" xsi:type="PQ" value="Positive " /> <interpretationCode codeSystem="local" code="*" /> < referenceRange> <observationRange> <text>Negative</text > </observationRange> </referenceRange> </observation > </component> <component> <observation moodCode="EVN" classCode="OBS"> <templateId root="11.30.840.1.773328.08.03.22.4.2" /> <id nullFlavor="NA" /> <code codeSystem="local" code="UBLD" displayName="Blood" /> <statusCode code="completed" /> < effectiveTime value="251401097017" /> <value unit="NA" xsi:type="PQ" value="Negative" /> <referenceRange> <observationRange> <text>Negative</text> </observationRange> </ referenceRange> </observation> </component> <component> <observation moodCode="EVN" classCode="OBS"> <templateId root= "11.30.840.1.310866.10..22.4.2" /> <id nullFlavor="NA" /> < code codeSystem="local" code="UCOLR" displayName="Color" /> < statusCode code="completed" /> <effectiveTime value="677825150401" /> <value unit="NA" xsi:type="PQ" value="Aliza" /> < interpretationCode codeSystem="local" code="*" /> <referenceRange> <observationRange> <text /> </observationRange> </referenceRange> </observation> </component> < component> <observation moodCode="EVN" classCode="OBS"> < templateId root="11.30.840.1.448791.10..22.4.2" /> <id nullFlavor="NA " /> <code codeSystem="local" code="UGLU" displayName="Glucose, Urine" /> <statusCode code="completed" /> <effectiveTime value= "062200470582" /> <value unit="" xsi:type="PQ" value="Negative" /> <referenceRange> <observationRange> <text>Negative </text> </observationRange> </referenceRange> </ observation> </component> <component> <observation moodCode= "EVN" classCode="OBS"> <templateId root=".1.508293.10..4.2 " /> <id nullFlavor="NA" /> <code codeSystem="local" code= "UKET" displayName="Ketones" /> <statusCode code="completed" /> <effectiveTime value="606440242571" /> <value unit="" xsi:type="PQ" value="Trace" /> <interpretationCode codeSystem="local" code="*" /> <referenceRange> <observationRange> <text> Negative</text> </observationRange> </referenceRange> </observation> </component> <component> <observation moodCode ="EVN" classCode="OBS"> <templateId root= "216.840.1.501310.08.03.22.4.2" /> <id nullFlavor="NA" /> < code codeSystem="local" code="ULEU" displayName="Leukocyte Esterase" /> <statusCode code="completed" /> <effectiveTime value="451620584344" / > <value unit="NA" xsi:type="PQ" value="Negative" /> < referenceRange> <observationRange> <text>Negative</text > </observationRange> </referenceRange> </observation > </component> <component> <observation moodCode="EVN" classCode="OBS"> <templateId root="16.840.1.417331.08.03.22.4.2" /> <id nullFlavor="NA" /> <code codeSystem="local" code="UNIT" displayName="Nitrites" /> <statusCode code="completed" /> < effectiveTime value="203592281294" /> <value unit="NA" xsi:type="PQ" value="Negative" /> <referenceRange> <observationRange> <text>Negative</text> </observationRange> </ referenceRange> </observation> </component> <component> <observation moodCode="EVN" classCode="OBS"> <templateId root= "11.30.840.1.693557.10.22.4.2" /> <id nullFlavor="NA" /> < code codeSystem="local" code="UPH" displayName="pH" /> <statusCode code ="completed" /> <effectiveTime value="157433431385" /> <value unit="NA" xsi:type="PQ" value="5.0" /> <referenceRange> < observationRange> <text>5.0-8.0</text> </ observationRange> </referenceRange> </observation> </ component> <component> <observation moodCode="EVN" classCode="OBS"> <templateId root="11.30.840.1.448771.08.03.22.4.2" /> <id nullFlavor="NA" /> <code codeSystem="local" code="UPRO" displayName= "Protein" /> <statusCode code="completed" /> <effectiveTime value="307245344698" /> <value unit="NA" xsi:type="PQ" value="Pos 2+" / > <interpretationCode codeSystem="local" code="*" /> < referenceRange> <observationRange> <text>Negative</text > </observationRange> </referenceRange> </observation > </component> <component> <observation moodCode="EVN" classCode="OBS"> <templateId root="11.30.840.1.560462.10.22.4.2" /> <id nullFlavor="NA" /> <code codeSystem="local" code="USPG" displayName="Specific Quinlan" /> <statusCode code="completed" /> <effectiveTime value="731360768307" /> <value unit="NA" xsi:type= "PQ" value="1.045" /> <interpretationCode codeSystem="local" code="*" / > <referenceRange> <observationRange> <text> 1.003-1.030</text> </observationRange> </referenceRange> </observation> </component> <component> <observation moodCode="EVN" classCode="OBS"> <templateId root= "16.840.1.684302.10..4.2" /> <id nullFlavor="NA" /> < code codeSystem="local" code="UTYP" displayName="UA Collection type" /> <statusCode code="completed" /> <effectiveTime value="619682199046" / > <value unit="NA" xsi:type="PQ" value="Catheter" /> < referenceRange> <observationRange> <text /> < /observationRange> </referenceRange> </observation> </ component> <component> <observation moodCode="EVN" classCode="OBS"> <templateId root="11.30.840.1.869520.10.4.2" /> <id nullFlavor="NA" /> <code codeSystem="local" code="UURO" displayName= "Urobilinogen" /> <statusCode code="completed" /> < effectiveTime value="473811088425" /> <value unit="mg/dL" xsi:type="PQ " value="Negative" /> <referenceRange> <observationRange> <text><1.0</text> </observationRange> </ referenceRange> </observation> </component> </organizer> </entry > <entry> <organizer moodCode="EVN" classCode="BATTERY"> <templateId root="16.840.1.133533.10.22.4.1" /> <id nullFlavor="NA" /> <code codeSystem="local" code="UMIC" displayName="Urine Microscopic" /> < statusCode code="completed" /> <component> <observation moodCode= "EVN" classCode="OBS"> <templateId root="216.840.1.166873.08.03.22.4.2 " /> <id nullFlavor="NA" /> <code codeSystem="local" code= "UEPI" displayName="Epithelial Cells" /> <statusCode code="completed" / > <effectiveTime value="" /> <value unit="/HPF" xsi:type="PQ" value="2" /> <referenceRange> < observationRange> <text /> </observationRange> </referenceRange> </observation> </component> <component> <observation moodCode="EVN" classCode="OBS"> <templateId root= "11.30.840.1.005105.08.03.22.4.2" /> <id nullFlavor="NA" /> < code codeSystem="local" code="UHCST" displayName="Hyaline Casts" /> < statusCode code="completed" /> <effectiveTime value="" /> <value unit="/LPF" xsi:type="PQ" value="7" /> < interpretationCode codeSystem="local" code="*" /> <referenceRange> <observationRange> <text>0-3</text> </ observationRange> </referenceRange> </observation> </ component> <component> <observation moodCode="EVN" classCode="OBS"> <templateId root="11.30.840.1.008166.08.03.22.4.2" /> <id nullFlavor="NA" /> <code codeSystem="local" code="URBC" displayName= "RBC, Urine" /> <statusCode code="completed" /> < effectiveTime value="" /> <value unit="/HPF" xsi:type="PQ" value="0" /> <referenceRange> <observationRange> <text>0-2</text> </observationRange> </referenceRange> </observation> </component> <component> <observation moodCode="EVN" classCode="OBS"> <templateId root= "216.840.1.321422.10..22.4.2" /> <id nullFlavor="NA" /> < code codeSystem="local" code="UMUC" displayName="Urine Mucus" /> < statusCode code="completed" /> <effectiveTime value="468314999287" /> <value unit="NA" xsi:type="PQ" value="Present" /> < referenceRange> <observationRange> <text /> < /observationRange> </referenceRange> </observation> </ component> <component> <observation moodCode="EVN" classCode="OBS"> <templateId root="16.840.1.070807.10.22.4.2" /> <id nullFlavor="NA" /> <code codeSystem="local" code="UWBC" displayName= "WBC, Urine" /> <statusCode code="completed" /> < effectiveTime value="299794475588" /> <value unit="/HPF" xsi:type="PQ" value="2" /> <referenceRange> <observationRange> <text>0-4</text> </observationRange> </referenceRange> </observation> </component> </organizer> </entry> <entry> < organizer moodCode="EVN" classCode="BATTERY"> <templateId root= "16.840.1.079764.10.20.22.4.1" /> <id nullFlavor="NA" /> <code codeSystem="local" code="UDRGH" displayName="Urine Drug Screen" /> < statusCode code="completed" /> <component> <observation moodCode= "EVN" classCode="OBS"> <templateId root="216.840.1.107091.10.4.2 " /> <id nullFlavor="NA" /> <code codeSystem="local" code= "UAMP1" displayName="Amph/Meth/Ecstasy" /> <statusCode code="completed " /> <effectiveTime value="" /> <value unit="NA" xsi:type="PQ" value="Positive" /> <interpretationCode codeSystem="local " code="*" /> <referenceRange> <observationRange> <text /> </observationRange> </referenceRange> </ observation> </component> <component> <observation moodCode= "EVN" classCode="OBS"> <templateId root="16.840.1.234723.08.03.224.2 " /> <id nullFlavor="NA" /> <code codeSystem="local" code= "UBAR1" displayName="Barbiturates" /> <statusCode code="completed" /> <effectiveTime value="" /> <value unit="NA" xsi: type="PQ" value="Negative" /> <referenceRange> < observationRange> <text /> </observationRange> </referenceRange> </observation> </component> <component> <observation moodCode="EVN" classCode="OBS"> <templateId root= "216.840.1.049534.08.03.22.4.2" /> <id nullFlavor="NA" /> < code codeSystem="local" code="UBEN1" displayName="Benzodiazepine" /> < statusCode code="completed" /> <effectiveTime value="" /> <value unit="NA" xsi:type="PQ" value="Negative" /> < referenceRange> <observationRange> <text /> < /observationRange> </referenceRange> </observation> </ component> <component> <observation moodCode="EVN" classCode="OBS"> <templateId root="16.840.1.868150.10..4.2" /> <id nullFlavor="NA" /> <code codeSystem="local" code="UCAN1" displayName= "Cannabinoid" /> <statusCode code="completed" /> < effectiveTime value="" /> <value unit="NA" xsi:type="PQ" value="Negative" /> <referenceRange> <observationRange> <text /> </observationRange> </referenceRange> </observation> </component> <component> <observation moodCode="EVN" classCode="OBS"> <templateId root= "11.30.840.1.343932.08.03.22.4.2" /> <id nullFlavor="NA" /> < code codeSystem="local" code="UCOC1" displayName="Cocaine" /> < statusCode code="completed" /> <effectiveTime value="" /> <value unit="NA" xsi:type="PQ" value="Negative" /> < referenceRange> <observationRange> <text /> < /observationRange> </referenceRange> </observation> </ component> <component> <observation moodCode="EVN" classCode="OBS"> <templateId root="11.30.840.1.828238.1022.4.2" /> <id nullFlavor="NA" /> <code codeSystem="local" code="UMTD1" displayName= "EDDP (Methadone met.)" /> <statusCode code="completed" /> < effectiveTime value="" /> <value unit="NA" xsi:type="PQ" value="Negative" /> <referenceRange> <observationRange> <text /> </observationRange> </referenceRange> </observation> </component> <component> <observation moodCode="EVN" classCode="OBS"> <templateId root= "216.840.1.657460.10...4.2" /> <id nullFlavor="NA" /> < code codeSystem="local" code="UOPI1" displayName="Opiate" /> < statusCode code="completed" /> <effectiveTime value="658728481798" /> <value unit="NA" xsi:type="PQ" value="Negative" /> < referenceRange> <observationRange> <text /> < /observationRange> </referenceRange> </observation> </ component> <component> <observation moodCode="EVN" classCode="OBS"> <templateId root="11.30.840.1.826820.10..4.2" /> <id nullFlavor="NA" /> <code codeSystem="local" code="UPCP1" displayName= "Phencyclidine (PCP)" /> <statusCode code="completed" /> < effectiveTime value="666932246457" /> <value unit="NA" xsi:type="PQ" value="Negative" /> <referenceRange> <observationRange> <text /> </observationRange> </referenceRange> </observation> </component> </organizer> </entry> <entry> < organizer moodCode="EVN" classCode="BATTERY"> <templateId root= "11.30.840.1.211028.10..22.4.1" /> <id nullFlavor="NA" /> <code codeSystem="local" code="SALIC" displayName="Salicylate" /> <statusCode code="completed" /> <component> <observation moodCode="EVN" classCode="OBS"> <templateId root="2.16.840.1.716479.10..22.4.2" /> <id nullFlavor="NA" /> <code codeSystem="local" code="SALIC" displayName="Salicylate" /> <statusCode code="completed" /> < effectiveTime value="908504658744" /> <value unit="mg/dL" xsi:type="PQ " value="<4" /> <referenceRange> <observationRange> <text>0-30</text> </observationRange> </ referenceRange> </observation> </component> </organizer> </entry > <entry> <organizer moodCode="EVN" classCode="BATTERY"> <templateId root="2.16.840.1.370739.10..22.4.1" /> <id nullFlavor="NA" /> <code codeSystem="local" code="ACETM" displayName="Acetaminophen" /> <statusCode code="completed" /> <component> <observation moodCode="EVN" classCode="OBS"> <templateId root="2.16.840.1.929453.10.20.22.4.2" /> <id nullFlavor="NA" /> <code codeSystem="local" code="ACETM" displayName="Acetaminophen" /> <statusCode code="completed" /> <effectiveTime value="650885809570" /> <value unit="mcg/mL" xsi:type= "PQ" value="277" /> <interpretationCode codeSystem="local" code="" / > <referenceRange> <observationRange> <text>10- 30</text> </observationRange> </referenceRange> </ observation> </component> </organizer> </entry> <entry> <organizer moodCode="EVN" classCode="BATTERY"> <templateId root= "11.30.840.1.045084.10..22.4.1" /> <id nullFlavor="NA" /> <code codeSystem="local" code="CMP" displayName="Comprehensive Metabolic Panel (CMP)" /> <statusCode code="completed" /> <component> <observation moodCode="EVN" classCode="OBS"> <templateId root= "11.30.840.1.276429.10..4.2" /> <id nullFlavor="NA" /> < code codeSystem="local" code="ALB" displayName="Albumin" /> < statusCode code="completed" /> <effectiveTime value="543322009801" /> <value unit="g/dL" xsi:type="PQ" value="3.9" /> < referenceRange> <observationRange> <text>3.5-4.8</text> </observationRange> </referenceRange> </observation > </component> <component> <observation moodCode="EVN" classCode="OBS"> <templateId root="11.30.840.1.661758.10...4.2" /> <id nullFlavor="NA" /> <code codeSystem="local" code="ALP" displayName="Alkaline Phosphatase" /> <statusCode code="completed" /> <effectiveTime value="748387212365" /> <value unit="U/L" xsi: type="PQ" value="61" /> <referenceRange> <observationRange> <text>26-104</text> </observationRange> </ referenceRange> </observation> </component> <component> <observation moodCode="EVN" classCode="OBS"> <templateId root= "11.30.840.1.139846.10..4.2" /> <id nullFlavor="NA" /> < code codeSystem="local" code="ALT" displayName="ALT (SGPT)" /> < statusCode code="completed" /> <effectiveTime value="972118809698" /> <value unit="U/L" xsi:type="PQ" value="19" /> <referenceRange > <observationRange> <text>14-54</text> </ observationRange> </referenceRange> </observation> </ component> <component> <observation moodCode="EVN" classCode="OBS"> <templateId root="216.840.1.012270.10..4.2" /> <id nullFlavor="NA" /> <code codeSystem="local" code="AGAP" displayName= "Anion Gap" /> <statusCode code="completed" /> <effectiveTime value="151647214823" /> <value unit="mEq/L" xsi:type="PQ" value="9" /> <referenceRange> <observationRange> <text>3-20 </text> </observationRange> </referenceRange> </ observation> </component> <component> <observation moodCode= "EVN" classCode="OBS"> <templateId root="2.16.840.1.456427.10...4.2 " /> <id nullFlavor="NA" /> <code codeSystem="local" code="AST " displayName="AST (SGOT)" /> <statusCode code="completed" /> <effectiveTime value="067827465789" /> <value unit="U/L" xsi:type="PQ" value="22" /> <referenceRange> <observationRange> <text>15-41</text> </observationRange> </referenceRange > </observation> </component> <component> <observation moodCode="EVN" classCode="OBS"> <templateId root= "16.840.1.334520.10..22.4.2" /> <id nullFlavor="NA" /> < code codeSystem="local" code="BILIT" displayName="Bilirubin Total" /> < statusCode code="completed" /> <effectiveTime value="752805053464" /> <value unit="mg/dL" xsi:type="PQ" value="0.9" /> < referenceRange> <observationRange> <text>0.2-1.2</text> </observationRange> </referenceRange> </observation > </component> <component> <observation moodCode="EVN" classCode="OBS"> <templateId root="11.30.840.1.103241.08.03.22.4.2" /> <id nullFlavor="NA" /> <code codeSystem="local" code="BUN" displayName="BUN" /> <statusCode code="completed" /> < effectiveTime value="072139463124" /> <value unit="mg/dL" xsi:type="PQ " value="11" /> <referenceRange> <observationRange> <text>4-20</text> </observationRange> </referenceRange > </observation> </component> <component> <observation moodCode="EVN" classCode="OBS"> <templateId root= "11.30.840.1.106940..22.4.2" /> <id nullFlavor="NA" /> < code codeSystem="local" code="CA" displayName="Calcium" /> <statusCode code="completed" /> <effectiveTime value="500249037491" /> < value unit="mg/dL" xsi:type="PQ" value="8.5" /> <interpretationCode codeSystem="local" code="*" /> <referenceRange> < observationRange> <text>8.6-10.0</text> </ observationRange> </referenceRange> </observation> </ component> <component> <observation moodCode="EVN" classCode="OBS"> <templateId root="11.30.840.1.231682.10.20.22.4.2" /> <id nullFlavor="NA" /> <code codeSystem="local" code="CL" displayName= "Chloride" /> <statusCode code="completed" /> <effectiveTime value="113931093297" /> <value unit="mEq/L" xsi:type="PQ" value="110" / > <interpretationCode codeSystem="local" code="*" /> < referenceRange> <observationRange> <text>99-109</text> </observationRange> </referenceRange> </observation> </component> <component> <observation moodCode="EVN" classCode ="OBS"> <templateId root="840.1.347582.10..4.2" /> < id nullFlavor="NA" /> <code codeSystem="local" code="CO2" displayName= "CO2" /> <statusCode code="completed" /> <effectiveTime value= "154238415717" /> <value unit="mEq/L" xsi:type="PQ" value="21" /> <interpretationCode codeSystem="local" code="*" /> <referenceRange > <observationRange> <text>22-32</text> </ observationRange> </referenceRange> </observation> </ component> <component> <observation moodCode="EVN" classCode="OBS"> <templateId root="11.30.840.1.122561.10.20.22.4.2" /> <id nullFlavor="NA" /> <code codeSystem="local" code="CREAT" displayName= "Creatinine" /> <statusCode code="completed" /> < effectiveTime value="091388660537" /> <value unit="mg/dL" xsi:type="PQ " value="0.83" /> <referenceRange> <observationRange> <text>0.44-1.03</text> </observationRange> </ referenceRange> </observation> </component> <component> <observation moodCode="EVN" classCode="OBS"> <templateId root= "11.30.840.1.567391.10..22.4.2" /> <id nullFlavor="NA" /> < code codeSystem="local" code="GLOB" displayName="Globulin" /> < statusCode code="completed" /> <effectiveTime value="877384051434" /> <value unit="g/dL" xsi:type="PQ" value="2.7" /> < referenceRange> <observationRange> <text>1.9-4.3</text> </observationRange> </referenceRange> </observation > </component> <component> <observation moodCode="EVN" classCode="OBS"> <templateId root="11.30.840.1.995553.10...4.2" /> <id nullFlavor="NA" /> <code codeSystem="local" code="GLU" displayName="Glucose" /> <statusCode code="completed" /> < effectiveTime value="894775533811" /> <value unit="mg/dL" xsi:type="PQ " value="90" /> <referenceRange> <observationRange> <text>70-100</text> </observationRange> </ referenceRange> </observation> </component> <component> <observation moodCode="EVN" classCode="OBS"> <templateId root= "11.30.840.1.730848.08.03.22.4.2" /> <id nullFlavor="NA" /> < code codeSystem="local" code="K" displayName="Potassium" /> < statusCode code="completed" /> <effectiveTime value="163240398766" /> <value unit="mEq/L" xsi:type="PQ" value="3.5" /> < interpretationCode codeSystem="local" code="*" /> <referenceRange> <observationRange> <text>3.6-5.1</text> </ observationRange> </referenceRange> </observation> </ component> <component> <observation moodCode="EVN" classCode="OBS"> <templateId root="2.16.840.1.977379.08.03.224.2" /> <id nullFlavor="NA" /> <code codeSystem="local" code="TP" displayName= "Protein" /> <statusCode code="completed" /> <effectiveTime value="814242166676" /> <value unit="g/dL" xsi:type="PQ" value="6.6" / > <referenceRange> <observationRange> <text>6.1 -7.9</text> </observationRange> </referenceRange> </ observation> </component> <component> <observation moodCode= "EVN" classCode="OBS"> <templateId root="216.840.1.139408.08.03.22.4.2 " /> <id nullFlavor="NA" /> <code codeSystem="local" code="NA " displayName="Sodium" /> <statusCode code="completed" /> < effectiveTime value="289538841192" /> <value unit="mEq/L" xsi:type="PQ " value="140" /> <referenceRange> <observationRange> <text>136-144</text> </observationRange> </ referenceRange> </observation> </component> </organizer> </entry > <entry> <organizer moodCode="EVN" classCode="BATTERY"> <templateId root="11.30.840.1.908112.08.03.22.4.1" /> <id nullFlavor="NA" /> <code codeSystem="local" code="ALC" displayName="Alcohol, Blood" /> <statusCode code="completed" /> <component> <observation moodCode="EVN" classCode="OBS"> <templateId root="840.1.266299.08.03.224.2" /> <id nullFlavor="NA" /> <code codeSystem="local" code="ALC" displayName="Alcohol, Blood" /> <statusCode code="completed" /> <effectiveTime value="553380892923" /> <value unit="mg/dL" xsi:type= "PQ" value="Not Detected" /> <referenceRange> < observationRange> <text /> </observationRange> </referenceRange> </observation> </component> </organizer> </ entry> <entry> <organizer moodCode="EVN" classCode="BATTERY"> < templateId root="840.1.566586.08.03.22.4.1" /> <id nullFlavor="NA" /> <code codeSystem="local" code="GFR" displayName="eGFR" /> < statusCode code="completed" /> <component> <observation moodCode= "EVN" classCode="OBS"> <templateId root="840.1.047202.08.03.22.4.2 " /> <id nullFlavor="NA" /> <code codeSystem="local" code="GFR " displayName="eGFR" /> <statusCode code="completed" /> < effectiveTime value="411238721521" /> <value unit="mL/min" xsi:type="PQ " value=">60" /> <referenceRange> <observationRange> <text>>60</text> </observationRange> </ referenceRange> </observation> </component> </organizer> </entry > <entry> <organizer moodCode="EVN" classCode="BATTERY"> <templateId root="11.30.840.1.612436.10.22.4.1" /> <id nullFlavor="NA" /> <code codeSystem="local" code="CBCND" displayName="CBC With Platelet No Differential" /> <statusCode code="completed" /> <component> <observation moodCode="EVN" classCode="OBS"> <templateId root= "11.30.840.1.148521.10..4.2" /> <id nullFlavor="NA" /> < code codeSystem="local" code="HCT" displayName="HCT" /> <statusCode code="completed" /> <effectiveTime value="316698838968" /> < value unit="%" xsi:type="PQ" value="36.8" /> <interpretationCode codeSystem="local" code="*" /> <referenceRange> < observationRange> <text>37.0-47.0</text> </ observationRange> </referenceRange> </observation> </ component> <component> <observation moodCode="EVN" classCode="OBS"> <templateId root="11.30.840.1.214510.10..4.2" /> <id nullFlavor="NA" /> <code codeSystem="local" code="HGB" displayName="HGB " /> <statusCode code="completed" /> <effectiveTime value= "820926032867" /> <value unit="g/dL" xsi:type="PQ" value="12.7" /> <referenceRange> <observationRange> <text>12.0- 16.0</text> </observationRange> </referenceRange> </ observation> </component> <component> <observation moodCode= "EVN" classCode="OBS"> <templateId root="216.840.1.888244.10.20.22.4.2 " /> <id nullFlavor="NA" /> <code codeSystem="local" code="MCH " displayName="MCH" /> <statusCode code="completed" /> < effectiveTime value="501170494695" /> <value unit="pg" xsi:type="PQ" value="31.8" /> <referenceRange> <observationRange> <text>27.0-32.0</text> </observationRange> </ referenceRange> </observation> </component> <component> <observation moodCode="EVN" classCode="OBS"> <templateId root= "11.30.840.1.767883.10..4.2" /> <id nullFlavor="NA" /> < code codeSystem="local" code="MCHC" displayName="MCHC" /> <statusCode code="completed" /> <effectiveTime value="211287470499" /> < value unit="g/dL" xsi:type="PQ" value="34.5" /> <referenceRange> <observationRange> <text>32.0-36.0</text> </ observationRange> </referenceRange> </observation> </ component> <component> <observation moodCode="EVN" classCode="OBS"> <templateId root="11.30.840.1.453374.10.20.22.4.2" /> <id nullFlavor="NA" /> <code codeSystem="local" code="MCV" displayName="MCV " /> <statusCode code="completed" /> <effectiveTime value= "" /> <value unit="fL" xsi:type="PQ" value="92.0" /> <referenceRange> <observationRange> <text>82.0-99.0< /text> </observationRange> </referenceRange> </ observation> </component> <component> <observation moodCode= "EVN" classCode="OBS"> <templateId root="11.30.840.1.560310.10.22.4.2 " /> <id nullFlavor="NA" /> <code codeSystem="local" code="MPV " displayName="MPV" /> <statusCode code="completed" /> < effectiveTime value="540296267844" /> <value unit="fL" xsi:type="PQ" value="10.7" /> <referenceRange> <observationRange> <text>9.4-12.4</text> </observationRange> </ referenceRange> </observation> </component> <component> <observation moodCode="EVN" classCode="OBS"> <templateId root= "11.30.840.1.314820...22.4.2" /> <id nullFlavor="NA" /> < code codeSystem="local" code="PLT" displayName="Platelet Count" /> < statusCode code="completed" /> <effectiveTime value="" /> <value unit="K/uL" xsi:type="PQ" value="266" /> < referenceRange> <observationRange> <text>150-400</text> </observationRange> </referenceRange> </observation > </component> <component> <observation moodCode="EVN" classCode="OBS"> <templateId root="11.30.840.1.276193.10.4.2" /> <id nullFlavor="NA" /> <code codeSystem="local" code="RBC" displayName="RBC" /> <statusCode code="completed" /> < effectiveTime value="" /> <value unit="10*6/uL" xsi:type= "PQ" value="4.00" /> <referenceRange> <observationRange> <text>4.00-5.20</text> </observationRange> </ referenceRange> </observation> </component> <component> <observation moodCode="EVN" classCode="OBS"> <templateId root= "2.16.840.1.724682.08.03.22.4.2" /> <id nullFlavor="NA" /> < code codeSystem="local" code="RDW" displayName="RDW" /> <statusCode code="completed" /> <effectiveTime value="" /> < value unit="%" xsi:type="PQ" value="13.0" /> <referenceRange> <observationRange> <text>11.5-14.5</text> </ observationRange> </referenceRange> </observation> </ component> <component> <observation moodCode="EVN" classCode="OBS"> <templateId root="2.16.840.1.415282.08.03.22.4.2" /> <id nullFlavor="NA" /> <code codeSystem="local" code="WBCIR" displayName= "WBC" /> <statusCode code="completed" /> <effectiveTime value= "" /> <value unit="K/uL" xsi:type="PQ" value="7.3" /> <referenceRange> <observationRange> <text>4.8-10.8< /text> </observationRange> </referenceRange> </ observation> </component> </organizer> </entry> <entry> <organizer moodCode="EVN" classCode="BATTERY"> <templateId root= "840.1.719275.08.03.22.4.1" /> <id nullFlavor="NA" /> <code codeSystem="local" code="PT" displayName="Protime (INR)" /> <statusCode code="completed" /> <component> <observation moodCode="EVN" classCode="OBS"> <templateId root="840.1.161948.08.03.22.4.2" /> <id nullFlavor="NA" /> <code codeSystem="local" code="INR" displayName="INR" /> <statusCode code="completed" /> < effectiveTime value="394224443945" /> <value unit="NA" xsi:type="PQ" value="1.3" /> <interpretationCode codeSystem="local" code="*" /> <referenceRange> <observationRange> <text>0.9-1.2</ text> </observationRange> </referenceRange> </ observation> </component> </organizer> </entry> <entry> <organizer moodCode="EVN" classCode="BATTERY"> <templateId root= "840.1.183989.08.03.22.4.1" /> <id nullFlavor="NA" /> <code codeSystem="local" code="CMP" displayName="Comprehensive Metabolic Panel (CMP)" /> <statusCode code="completed" /> <component> <observation moodCode="EVN" classCode="OBS"> <templateId root= "840.1.345487.08.03..4.2" /> <id nullFlavor="NA" /> < code codeSystem="local" code="ALB" displayName="Albumin" /> < statusCode code="completed" /> <effectiveTime value="489823123210" /> <value unit="g/dL" xsi:type="PQ" value="3.3" /> < interpretationCode codeSystem="local" code="*" /> <referenceRange> <observationRange> <text>3.5-4.8</text> </ observationRange> </referenceRange> </observation> </ component> <component> <observation moodCode="EVN" classCode="OBS"> <templateId root="216.840.1.664089.10..22.4.2" /> <id nullFlavor="NA" /> <code codeSystem="local" code="ALP" displayName= "Alkaline Phosphatase" /> <statusCode code="completed" /> < effectiveTime value="410001646132" /> <value unit="U/L" xsi:type="PQ" value="50" /> <referenceRange> <observationRange> <text>26-104</text> </observationRange> </referenceRange > </observation> </component> <component> <observation moodCode="EVN" classCode="OBS"> <templateId root= "216.840.1.548369.10.20.22.4.2" /> <id nullFlavor="NA" /> < code codeSystem="local" code="ALT" displayName="ALT (SGPT)" /> < statusCode code="completed" /> <effectiveTime value="248213924236" /> <value unit="U/L" xsi:type="PQ" value="18" /> <referenceRange > <observationRange> <text>14-54</text> </ observationRange> </referenceRange> </observation> </ component> <component> <observation moodCode="EVN" classCode="OBS"> <templateId root="216.840.1.506352.08.03.22.4.2" /> <id nullFlavor="NA" /> <code codeSystem="local" code="AGAP" displayName= "Anion Gap" /> <statusCode code="completed" /> <effectiveTime value="377320152845" /> <value unit="mEq/L" xsi:type="PQ" value="9" /> <referenceRange> <observationRange> <text>3-20 </text> </observationRange> </referenceRange> </ observation> </component> <component> <observation moodCode= "EVN" classCode="OBS"> <templateId root="216.840.1.942003.08.03.22.4.2 " /> <id nullFlavor="NA" /> <code codeSystem="local" code="AST " displayName="AST (SGOT)" /> <statusCode code="completed" /> <effectiveTime value="036771393006" /> <value unit="U/L" xsi:type="PQ" value="16" /> <referenceRange> <observationRange> <text>15-41</text> </observationRange> </referenceRange > </observation> </component> <component> <observation moodCode="EVN" classCode="OBS"> <templateId root= "216.840.1.383241.08.03.22.4.2" /> <id nullFlavor="NA" /> < code codeSystem="local" code="BILIT" displayName="Bilirubin Total" /> < statusCode code="completed" /> <effectiveTime value="461250865145" /> <value unit="mg/dL" xsi:type="PQ" value="0.5" /> < referenceRange> <observationRange> <text>0.2-1.2</text> </observationRange> </referenceRange> </observation > </component> <component> <observation moodCode="EVN" classCode="OBS"> <templateId root="16.840.1.355978.10.22.4.2" /> <id nullFlavor="NA" /> <code codeSystem="local" code="BUN" displayName="BUN" /> <statusCode code="completed" /> < effectiveTime value="" /> <value unit="mg/dL" xsi:type="PQ " value="8" /> <referenceRange> <observationRange> <text>4-20</text> </observationRange> </referenceRange > </observation> </component> <component> <observation moodCode="EVN" classCode="OBS"> <templateId root= "11.30.840.1.370548.1022.4.2" /> <id nullFlavor="NA" /> < code codeSystem="local" code="CA" displayName="Calcium" /> <statusCode code="completed" /> <effectiveTime value="705940326542" /> < value unit="mg/dL" xsi:type="PQ" value="8.3" /> <interpretationCode codeSystem="local" code="*" /> <referenceRange> < observationRange> <text>8.6-10.0</text> </ observationRange> </referenceRange> </observation> </ component> <component> <observation moodCode="EVN" classCode="OBS"> <templateId root="11.30.840.1.474228.10.2022.4.2" /> <id nullFlavor="NA" /> <code codeSystem="local" code="CL" displayName= "Chloride" /> <statusCode code="completed" /> <effectiveTime value="682584276602" /> <value unit="mEq/L" xsi:type="PQ" value="109" / > <referenceRange> <observationRange> <text>99- 109</text> </observationRange> </referenceRange> </ observation> </component> <component> <observation moodCode= "EVN" classCode="OBS"> <templateId root="11.30.840.1.516866.10.20.22.4.2 " /> <id nullFlavor="NA" /> <code codeSystem="local" code="CO2 " displayName="CO2" /> <statusCode code="completed" /> < effectiveTime value="574635414432" /> <value unit="mEq/L" xsi:type="PQ " value="21" /> <interpretationCode codeSystem="local" code="*" /> <referenceRange> <observationRange> <text>22-32</ text> </observationRange> </referenceRange> </ observation> </component> <component> <observation moodCode= "EVN" classCode="OBS"> <templateId root="840.1.252837.10.2022.4.2 " /> <id nullFlavor="NA" /> <code codeSystem="local" code= "CREAT" displayName="Creatinine" /> <statusCode code="completed" /> <effectiveTime value="860104345455" /> <value unit="mg/dL" xsi: type="PQ" value="0.68" /> <referenceRange> <observationRange > <text>0.44-1.03</text> </observationRange> </ referenceRange> </observation> </component> <component> <observation moodCode="EVN" classCode="OBS"> <templateId root= "11.30.840.1.449451.10.20.22.4.2" /> <id nullFlavor="NA" /> < code codeSystem="local" code="GLOB" displayName="Globulin" /> < statusCode code="completed" /> <effectiveTime value="700399388651" /> <value unit="g/dL" xsi:type="PQ" value="2.3" /> < referenceRange> <observationRange> <text>1.9-4.3</text> </observationRange> </referenceRange> </observation > </component> <component> <observation moodCode="EVN" classCode="OBS"> <templateId root="11.30.840.1.975350.10..22.4.2" /> <id nullFlavor="NA" /> <code codeSystem="local" code="GLU" displayName="Glucose" /> <statusCode code="completed" /> < effectiveTime value="616491272924" /> <value unit="mg/dL" xsi:type="PQ " value="104" /> <interpretationCode codeSystem="local" code="*" /> <referenceRange> <observationRange> <text>70-100< /text> </observationRange> </referenceRange> </ observation> </component> <component> <observation moodCode= "EVN" classCode="OBS"> <templateId root="16.840.1.406033.10.20.22.4.2 " /> <id nullFlavor="NA" /> <code codeSystem="local" code="K" displayName="Potassium" /> <statusCode code="completed" /> < effectiveTime value="337242532463" /> <value unit="mEq/L" xsi:type="PQ " value="3.4" /> <interpretationCode codeSystem="local" code="*" /> <referenceRange> <observationRange> <text>3.6-5.1 </text> </observationRange> </referenceRange> </ observation> </component> <component> <observation moodCode= "EVN" classCode="OBS"> <templateId root="840.1.991283.10..22.4.2 " /> <id nullFlavor="NA" /> <code codeSystem="local" code="TP " displayName="Protein" /> <statusCode code="completed" /> < effectiveTime value="312009406184" /> <value unit="g/dL" xsi:type="PQ" value="5.6" /> <interpretationCode codeSystem="local" code="*" /> <referenceRange> <observationRange> <text>6.1-7.9</ text> </observationRange> </referenceRange> </ observation> </component> <component> <observation moodCode= "EVN" classCode="OBS"> <templateId root="840.1.928309.08.03.22.4.2 " /> <id nullFlavor="NA" /> <code codeSystem="local" code="NA " displayName="Sodium" /> <statusCode code="completed" /> < effectiveTime value="644855374597" /> <value unit="mEq/L" xsi:type="PQ " value="139" /> <referenceRange> <observationRange> <text>136-144</text> </observationRange> </ referenceRange> </observation> </component> </organizer> </entry > <entry> <organizer moodCode="EVN" classCode="BATTERY"> <templateId root="840.1.211347.10.22.4.1" /> <id nullFlavor="NA" /> <code codeSystem="local" code="ACETM" displayName="Acetaminophen" /> <statusCode code="completed" /> <component> <observation moodCode="EVN" classCode="OBS"> <templateId root="840.1.905032.10...4.2" /> <id nullFlavor="NA" /> <code codeSystem="local" code="ACETM" displayName="Acetaminophen" /> <statusCode code="completed" /> <effectiveTime value="693183753252" /> <value unit="mcg/mL" xsi:type= "PQ" value="45" /> <interpretationCode codeSystem="local" code="*" /> <referenceRange> <observationRange> <text>10-30 </text> </observationRange> </referenceRange> </ observation> </component> </organizer> </entry> <entry> <organizer moodCode="EVN" classCode="BATTERY"> <templateId root= "216.840.1.529890.10..4.1" /> <id nullFlavor="NA" /> <code codeSystem="local" code="GFR" displayName="eGFR" /> <statusCode code= "completed" /> <component> <observation moodCode="EVN" classCode= "OBS"> <templateId root="216.840.1.879779.10...4.2" /> < id nullFlavor="NA" /> <code codeSystem="local" code="GFR" displayName= "eGFR" /> <statusCode code="completed" /> <effectiveTime value ="398066545142" /> <value unit="mL/min" xsi:type="PQ" value=">60" / > <referenceRange> <observationRange> <text>&gt ;60</text> </observationRange> </referenceRange> </ observation> </component> </organizer> </entry> <entry> <organizer moodCode="EVN" classCode="BATTERY"> <templateId root= "216.840.1.708167.08.03.22.4.1" /> <id nullFlavor="NA" /> <code codeSystem="local" code="CMP" displayName="Comprehensive Metabolic Panel (CMP)" /> <statusCode code="completed" /> <component> <observation moodCode="EVN" classCode="OBS"> <templateId root= "11.30.840.1.498740.10..22.4.2" /> <id nullFlavor="NA" /> < code codeSystem="local" code="ALB" displayName="Albumin" /> < statusCode code="completed" /> <effectiveTime value="555942674970" /> <value unit="g/dL" xsi:type="PQ" value="3.2" /> < interpretationCode codeSystem="local" code="*" /> <referenceRange> <observationRange> <text>3.5-4.8</text> </ observationRange> </referenceRange> </observation> </ component> <component> <observation moodCode="EVN" classCode="OBS"> <templateId root="840.1.948869...4.2" /> <id nullFlavor="NA" /> <code codeSystem="local" code="ALP" displayName= "Alkaline Phosphatase" /> <statusCode code="completed" /> < effectiveTime value="[id number]" /> <value unit="U/L" xsi:type="PQ" value="45" /> <referenceRange> <observationRange> <text>26-104</text> </observationRange> </referenceRange > </observation> </component> <component> <observation moodCode="EVN" classCode="OBS"> <templateId root= "11.30.840.1.908565.10...4.2" /> <id nullFlavor="NA" /> < code codeSystem="local" code="ALT" displayName="ALT (SGPT)" /> < statusCode code="completed" /> <effectiveTime value="" /> <value unit="U/L" xsi:type="PQ" value="17" /> <referenceRange > <observationRange> <text>14-54</text> </ observationRange> </referenceRange> </observation> </ component> <component> <observation moodCode="EVN" classCode="OBS"> <templateId root="11.30.840.1.860546.10..22.4.2" /> <id nullFlavor="NA" /> <code codeSystem="local" code="AGAP" displayName= "Anion Gap" /> <statusCode code="completed" /> <effectiveTime value="" /> <value unit="mEq/L" xsi:type="PQ" value="6" /> <referenceRange> <observationRange> <text>3-20 </text> </observationRange> </referenceRange> </ observation> </component> <component> <observation moodCode= "EVN" classCode="OBS"> <templateId root="11.30.840.1.761793.10..22.4.2 " /> <id nullFlavor="NA" /> <code codeSystem="local" code="AST " displayName="AST (SGOT)" /> <statusCode code="completed" /> <effectiveTime value="[id number]" /> <value unit="U/L" xsi:type="PQ" value="14" /> <interpretationCode codeSystem="local" code="*" /> <referenceRange> <observationRange> <text>15-41</ text> </observationRange> </referenceRange> </ observation> </component> <component> <observation moodCode= "EVN" classCode="OBS"> <templateId root="840.1.221939.08.03.22.4.2 " /> <id nullFlavor="NA" /> <code codeSystem="local" code= "BILIT" displayName="Bilirubin Total" /> <statusCode code="completed" / > <effectiveTime value="" /> <value unit="mg/dL" xsi:type="PQ" value="0.8" /> <referenceRange> < observationRange> <text>0.2-1.2</text> </ observationRange> </referenceRange> </observation> </ component> <component> <observation moodCode="EVN" classCode="OBS"> <templateId root="216.840.1.990173.08.03.22.4.2" /> <id nullFlavor="NA" /> <code codeSystem="local" code="BUN" displayName="BUN " /> <statusCode code="completed" /> <effectiveTime value= "" /> <value unit="mg/dL" xsi:type="PQ" value="5" /> <referenceRange> <observationRange> <text>4-20</text > </observationRange> </referenceRange> </observation > </component> <component> <observation moodCode="EVN" classCode="OBS"> <templateId root="16.840.1.090326.08.03.22.4.2" /> <id nullFlavor="NA" /> <code codeSystem="local" code="CA" displayName="Calcium" /> <statusCode code="completed" /> < effectiveTime value="109775704497" /> <value unit="mg/dL" xsi:type="PQ " value="8.0" /> <interpretationCode codeSystem="local" code="*" /> <referenceRange> <observationRange> <text>8.6- 10.0</text> </observationRange> </referenceRange> </ observation> </component> <component> <observation moodCode= "EVN" classCode="OBS"> <templateId root="216.840.1.316910.10.22.4.2 " /> <id nullFlavor="NA" /> <code codeSystem="local" code="CL " displayName="Chloride" /> <statusCode code="completed" /> < effectiveTime value="" /> <value unit="mEq/L" xsi:type="PQ " value="109" /> <referenceRange> <observationRange> <text>99-109</text> </observationRange> </ referenceRange> </observation> </component> <component> <observation moodCode="EVN" classCode="OBS"> <templateId root= "11.30.840.1.844775.08.03.22.4.2" /> <id nullFlavor="NA" /> < code codeSystem="local" code="CO2" displayName="CO2" /> <statusCode code="completed" /> <effectiveTime value="" /> < value unit="mEq/L" xsi:type="PQ" value="23" /> <referenceRange> <observationRange> <text>22-32</text> </ observationRange> </referenceRange> </observation> </ component> <component> <observation moodCode="EVN" classCode="OBS"> <templateId root="216.840.1.430458.10..22.4.2" /> <id nullFlavor="NA" /> <code codeSystem="local" code="CREAT" displayName= "Creatinine" /> <statusCode code="completed" /> < effectiveTime value="" /> <value unit="mg/dL" xsi:type="PQ " value="0.78" /> <referenceRange> <observationRange> <text>0.44-1.03</text> </observationRange> </ referenceRange> </observation> </component> <component> <observation moodCode="EVN" classCode="OBS"> <templateId root= "11.30.840.1.871005.10.22.4.2" /> <id nullFlavor="NA" /> < code codeSystem="local" code="GLOB" displayName="Globulin" /> < statusCode code="completed" /> <effectiveTime value="110396764609" /> <value unit="g/dL" xsi:type="PQ" value="2.3" /> < referenceRange> <observationRange> <text>1.9-4.3</text> </observationRange> </referenceRange> </observation > </component> <component> <observation moodCode="EVN" classCode="OBS"> <templateId root="840.1.688178.08.03.22.4.2" /> <id nullFlavor="NA" /> <code codeSystem="local" code="GLU" displayName="Glucose" /> <statusCode code="completed" /> < effectiveTime value="568723489197" /> <value unit="mg/dL" xsi:type="PQ " value="99" /> <referenceRange> <observationRange> <text>70-100</text> </observationRange> </ referenceRange> </observation> </component> <component> <observation moodCode="EVN" classCode="OBS"> <templateId root= "840.1.026412.1022.4.2" /> <id nullFlavor="NA" /> < code codeSystem="local" code="K" displayName="Potassium" /> < statusCode code="completed" /> <effectiveTime value="995850956178" /> <value unit="mEq/L" xsi:type="PQ" value="3.0" /> < interpretationCode codeSystem="local" code="*" /> <referenceRange> <observationRange> <text>3.6-5.1</text> </ observationRange> </referenceRange> </observation> </ component> <component> <observation moodCode="EVN" classCode="OBS"> <templateId root="2.16.840.1.688279.10.20.22.4.2" /> <id nullFlavor="NA" /> <code codeSystem="local" code="TP" displayName= "Protein" /> <statusCode code="completed" /> <effectiveTime value="977158865610" /> <value unit="g/dL" xsi:type="PQ" value="5.5" / > <interpretationCode codeSystem="local" code="*" /> < referenceRange> <observationRange> <text>6.1-7.9</text> </observationRange> </referenceRange> </observation > </component> <component> <observation moodCode="EVN" classCode="OBS"> <templateId root="2.16.840.1.849284.10.20.22.4.2" /> <id nullFlavor="NA" /> <code codeSystem="local" code="NA" displayName="Sodium" /> <statusCode code="completed" /> < effectiveTime value="377418517303" /> <value unit="mEq/L" xsi:type="PQ " value="138" /> <referenceRange> <observationRange> <text>136-144</text> </observationRange> </ referenceRange> </observation> </component> </organizer> </entry > <entry> <organizer moodCode="EVN" classCode="BATTERY"> <templateId root="11.30.840.1.415792.08.03.22.4.1" /> <id nullFlavor="NA" /> <code codeSystem="local" code="ACETM" displayName="Acetaminophen" /> <statusCode code="completed" /> <component> <observation moodCode="EVN" classCode="OBS"> <templateId root="840.1.592913.08.03.22.4.2" /> <id nullFlavor="NA" /> <code codeSystem="local" code="ACETM" displayName="Acetaminophen" /> <statusCode code="completed" /> <effectiveTime value="" /> <value unit="mcg/mL" xsi:type= "PQ" value="<10" /> <referenceRange> <observationRange> <text>10-30</text> </observationRange> </ referenceRange> </observation> </component> </organizer> </entry > <entry> <organizer moodCode="EVN" classCode="BATTERY"> <templateId root="840.1.930761.08.03.22.4.1" /> <id nullFlavor="NA" /> <code codeSystem="local" code="GFR" displayName="eGFR" /> <statusCode code= "completed" /> <component> <observation moodCode="EVN" classCode= "OBS"> <templateId root="11.30.840.1.319151.08.03.22.4.2" /> < id nullFlavor="NA" /> <code codeSystem="local" code="GFR" displayName= "eGFR" /> <statusCode code="completed" /> <effectiveTime value ="" /> <value unit="mL/min" xsi:type="PQ" value=">60" / > <referenceRange> <observationRange> <text>&gt ;60</text> </observationRange> </referenceRange> </ observation> </component> </organizer> </entry> <entry> <organizer moodCode="EVN" classCode="BATTERY"> <templateId root= "16.840.1.133291.10..22.4.1" /> <id nullFlavor="NA" /> <code codeSystem="local" code="CBCND" displayName="CBC With Platelet No Differential" /> <statusCode code="completed" /> <component> <observation moodCode="EVN" classCode="OBS"> <templateId root= "2.840.1.631891.10...4.2" /> <id nullFlavor="NA" /> < code codeSystem="local" code="HCT" displayName="HCT" /> <statusCode code="completed" /> <effectiveTime value="286388390638" /> < value unit="%" xsi:type="PQ" value="35.8" /> <interpretationCode codeSystem="local" code="*" /> <referenceRange> < observationRange> <text>37.0-47.0</text> </ observationRange> </referenceRange> </observation> </ component> <component> <observation moodCode="EVN" classCode="OBS"> <templateId root="11.30.840.1.946818.10.22.4.2" /> <id nullFlavor="NA" /> <code codeSystem="local" code="HGB" displayName="HGB " /> <statusCode code="completed" /> <effectiveTime value= "926152563069" /> <value unit="g/dL" xsi:type="PQ" value="11.9" /> <interpretationCode codeSystem="local" code="*" /> < referenceRange> <observationRange> <text>12.0-16.0</text > </observationRange> </referenceRange> </observation > </component> <component> <observation moodCode="EVN" classCode="OBS"> <templateId root="11.30.840.1.484783.10.20.22.4.2" /> <id nullFlavor="NA" /> <code codeSystem="local" code="MCH" displayName="MCH" /> <statusCode code="completed" /> < effectiveTime value="500886726329" /> <value unit="pg" xsi:type="PQ" value="30.7" /> <referenceRange> <observationRange> <text>27.0-32.0</text> </observationRange> </ referenceRange> </observation> </component> <component> <observation moodCode="EVN" classCode="OBS"> <templateId root= "840.1.167775.10.22.4.2" /> <id nullFlavor="NA" /> < code codeSystem="local" code="MCHC" displayName="MCHC" /> <statusCode code="completed" /> <effectiveTime value="424911911622" /> < value unit="g/dL" xsi:type="PQ" value="33.2" /> <referenceRange> <observationRange> <text>32.0-36.0</text> </ observationRange> </referenceRange> </observation> </ component> <component> <observation moodCode="EVN" classCode="OBS"> <templateId root="11.30.840.1.820882.10.20.22.4.2" /> <id nullFlavor="NA" /> <code codeSystem="local" code="MCV" displayName="MCV " /> <statusCode code="completed" /> <effectiveTime value= "801005963717" /> <value unit="fL" xsi:type="PQ" value="92.5" /> <referenceRange> <observationRange> <text>82.0-99.0< /text> </observationRange> </referenceRange> </ observation> </component> <component> <observation moodCode= "EVN" classCode="OBS"> <templateId root="11.30.840.1.390907.08.03.22.4.2 " /> <id nullFlavor="NA" /> <code codeSystem="local" code="MPV " displayName="MPV" /> <statusCode code="completed" /> < effectiveTime value="516116657440" /> <value unit="fL" xsi:type="PQ" value="10.5" /> <referenceRange> <observationRange> <text>9.4-12.4</text> </observationRange> </ referenceRange> </observation> </component> <component> <observation moodCode="EVN" classCode="OBS"> <templateId root= "11.30.840.1.581473.08.03.22.4.2" /> <id nullFlavor="NA" /> < code codeSystem="local" code="PLT" displayName="Platelet Count" /> < statusCode code="completed" /> <effectiveTime value="189419178239" /> <value unit="K/uL" xsi:type="PQ" value="196" /> < referenceRange> <observationRange> <text>150-400</text> </observationRange> </referenceRange> </observation > </component> <component> <observation moodCode="EVN" classCode="OBS"> <templateId root="11.30.840.1.831407.08.03.22.4.2" /> <id nullFlavor="NA" /> <code codeSystem="local" code="RBC" displayName="RBC" /> <statusCode code="completed" /> < effectiveTime value="" /> <value unit="10*6/uL" xsi:type= "PQ" value="3.87" /> <interpretationCode codeSystem="local" code="*" / > <referenceRange> <observationRange> <text> 4.00-5.20</text> </observationRange> </referenceRange> </observation> </component> <component> <observation moodCode="EVN" classCode="OBS"> <templateId root= "2.16.840.1.734649.08.03.22.4.2" /> <id nullFlavor="NA" /> < code codeSystem="local" code="RDW" displayName="RDW" /> <statusCode code="completed" /> <effectiveTime value="" /> < value unit="%" xsi:type="PQ" value="13.1" /> <referenceRange> <observationRange> <text>11.5-14.5</text> </ observationRange> </referenceRange> </observation> </ component> <component> <observation moodCode="EVN" classCode="OBS"> <templateId root="2.16.840.1.732399.2022.4.2" /> <id nullFlavor="NA" /> <code codeSystem="local" code="WBCIR" displayName= "WBC" /> <statusCode code="completed" /> <effectiveTime value= "" /> <value unit="K/uL" xsi:type="PQ" value="5.1" /> <referenceRange> <observationRange> <text>4.8-10.8< /text> </observationRange> </referenceRange> </ observation> </component> </organizer> </entry> <entry> <organizer moodCode="EVN" classCode="BATTERY"> <templateId root= "216.840.1.411536.10..22.4.1" /> <id nullFlavor="NA" /> <code codeSystem="local" code="CMP" displayName="Comprehensive Metabolic Panel (CMP)" /> <statusCode code="completed" /> <component> <observation moodCode="EVN" classCode="OBS"> <templateId root= "216.840.1.795748.10...4.2" /> <id nullFlavor="NA" /> < code codeSystem="local" code="ALB" displayName="Albumin" /> < statusCode code="completed" /> <effectiveTime value="319965773966" /> <value unit="g/dL" xsi:type="PQ" value="3.2" /> < interpretationCode codeSystem="local" code="*" /> <referenceRange> <observationRange> <text>3.5-4.8</text> </ observationRange> </referenceRange> </observation> </ component> <component> <observation moodCode="EVN" classCode="OBS"> <templateId root="216.840.1.471493....4.2" /> <id nullFlavor="NA" /> <code codeSystem="local" code="ALP" displayName= "Alkaline Phosphatase" /> <statusCode code="completed" /> < effectiveTime value="" /> <value unit="U/L" xsi:type="PQ" value="45" /> <referenceRange> <observationRange> <text>26-104</text> </observationRange> </referenceRange > </observation> </component> <component> <observation moodCode="EVN" classCode="OBS"> <templateId root= "16.840.1.042372.10..22.4.2" /> <id nullFlavor="NA" /> < code codeSystem="local" code="ALT" displayName="ALT (SGPT)" /> < statusCode code="completed" /> <effectiveTime value="" /> <value unit="U/L" xsi:type="PQ" value="18" /> <referenceRange > <observationRange> <text>14-54</text> </ observationRange> </referenceRange> </observation> </ component> <component> <observation moodCode="EVN" classCode="OBS"> <templateId root="11.30.840.1.651220.10...4.2" /> <id nullFlavor="NA" /> <code codeSystem="local" code="AGAP" displayName= "Anion Gap" /> <statusCode code="completed" /> <effectiveTime value="" /> <value unit="mEq/L" xsi:type="PQ" value="6" /> <referenceRange> <observationRange> <text>3-20 </text> </observationRange> </referenceRange> </ observation> </component> <component> <observation moodCode= "EVN" classCode="OBS"> <templateId root="11.30.840.1.702346.10..22.4.2 " /> <id nullFlavor="NA" /> <code codeSystem="local" code="AST " displayName="AST (SGOT)" /> <statusCode code="completed" /> <effectiveTime value="" /> <value unit="U/L" xsi:type="PQ" value="15" /> <referenceRange> <observationRange> <text>15-41</text> </observationRange> </referenceRange > </observation> </component> <component> <observation moodCode="EVN" classCode="OBS"> <templateId root= "216.840.1.223909.08.03.22.4.2" /> <id nullFlavor="NA" /> < code codeSystem="local" code="BILIT" displayName="Bilirubin Total" /> < statusCode code="completed" /> <effectiveTime value="" /> <value unit="mg/dL" xsi:type="PQ" value="0.9" /> < referenceRange> <observationRange> <text>0.2-1.2</text> </observationRange> </referenceRange> </observation > </component> <component> <observation moodCode="EVN" classCode="OBS"> <templateId root="11.30.840.1.209729.08.03.22.4.2" /> <id nullFlavor="NA" /> <code codeSystem="local" code="BUN" displayName="BUN" /> <statusCode code="completed" /> < effectiveTime value="" /> <value unit="mg/dL" xsi:type="PQ " value="6" /> <referenceRange> <observationRange> <text>4-20</text> </observationRange> </referenceRange > </observation> </component> <component> <observation moodCode="EVN" classCode="OBS"> <templateId root= "16.840.1.810445.08.03.22.4.2" /> <id nullFlavor="NA" /> < code codeSystem="local" code="CA" displayName="Calcium" /> <statusCode code="completed" /> <effectiveTime value="" /> < value unit="mg/dL" xsi:type="PQ" value="8.2" /> <interpretationCode codeSystem="local" code="*" /> <referenceRange> < observationRange> <text>8.6-10.0</text> </ observationRange> </referenceRange> </observation> </ component> <component> <observation moodCode="EVN" classCode="OBS"> <templateId root="11.30.840.1.582772.22.4.2" /> <id nullFlavor="NA" /> <code codeSystem="local" code="CL" displayName= "Chloride" /> <statusCode code="completed" /> <effectiveTime value="460699897556" /> <value unit="mEq/L" xsi:type="PQ" value="111" / > <interpretationCode codeSystem="local" code="*" /> < referenceRange> <observationRange> <text>99-109</text> </observationRange> </referenceRange> </observation> </component> <component> <observation moodCode="EVN" classCode ="OBS"> <templateId root="11.30.840.1.975165.08.03.22.4.2" /> < id nullFlavor="NA" /> <code codeSystem="local" code="CO2" displayName= "CO2" /> <statusCode code="completed" /> <effectiveTime value= "411991506420" /> <value unit="mEq/L" xsi:type="PQ" value="22" /> <referenceRange> <observationRange> <text>22-32</ text> </observationRange> </referenceRange> </ observation> </component> <component> <observation moodCode= "EVN" classCode="OBS"> <templateId root="11.30.840.1.455650.22.4.2 " /> <id nullFlavor="NA" /> <code codeSystem="local" code= "CREAT" displayName="Creatinine" /> <statusCode code="completed" /> <effectiveTime value="" /> <value unit="mg/dL" xsi: type="PQ" value="0.63" /> <referenceRange> <observationRange > <text>0.44-1.03</text> </observationRange> </ referenceRange> </observation> </component> <component> <observation moodCode="EVN" classCode="OBS"> <templateId root= "216.840.1.663229.10..22.4.2" /> <id nullFlavor="NA" /> < code codeSystem="local" code="GLOB" displayName="Globulin" /> < statusCode code="completed" /> <effectiveTime value="" /> <value unit="g/dL" xsi:type="PQ" value="2.3" /> < referenceRange> <observationRange> <text>1.9-4.3</text> </observationRange> </referenceRange> </observation > </component> <component> <observation moodCode="EVN" classCode="OBS"> <templateId root="16.840.1.711232.10..22.4.2" /> <id nullFlavor="NA" /> <code codeSystem="local" code="GLU" displayName="Glucose" /> <statusCode code="completed" /> < effectiveTime value="" /> <value unit="mg/dL" xsi:type="PQ " value="79" /> <referenceRange> <observationRange> <text>70-100</text> </observationRange> </ referenceRange> </observation> </component> <component> <observation moodCode="EVN" classCode="OBS"> <templateId root= "2.16.840.1.353486.10.22.4.2" /> <id nullFlavor="NA" /> < code codeSystem="local" code="K" displayName="Potassium" /> < statusCode code="completed" /> <effectiveTime value="560939241063" /> <value unit="mEq/L" xsi:type="PQ" value="3.0" /> < interpretationCode codeSystem="local" code="*" /> <referenceRange> <observationRange> <text>3.6-5.1</text> </ observationRange> </referenceRange> </observation> </ component> <component> <observation moodCode="EVN" classCode="OBS"> <templateId root="840.1.633152.08.03.22.4.2" /> <id nullFlavor="NA" /> <code codeSystem="local" code="TP" displayName= "Protein" /> <statusCode code="completed" /> <effectiveTime value="978986930556" /> <value unit="g/dL" xsi:type="PQ" value="5.5" / > <interpretationCode codeSystem="local" code="*" /> < referenceRange> <observationRange> <text>6.1-7.9</text> </observationRange> </referenceRange> </observation > </component> <component> <observation moodCode="EVN" classCode="OBS"> <templateId root="840.1.327840.10.22.4.2" /> <id nullFlavor="NA" /> <code codeSystem="local" code="NA" displayName="Sodium" /> <statusCode code="completed" /> < effectiveTime value="855704846268" /> <value unit="mEq/L" xsi:type="PQ " value="139" /> <referenceRange> <observationRange> <text>136-144</text> </observationRange> </ referenceRange> </observation> </component> </organizer> </entry > <entry> <organizer moodCode="EVN" classCode="BATTERY"> <templateId root="840.1.845322...22.4.1" /> <id nullFlavor="NA" /> <code codeSystem="local" code="GFR" displayName="eGFR" /> <statusCode code= "completed" /> <component> <observation moodCode="EVN" classCode= "OBS"> <templateId root="840.1.125244.08.03.22.4.2" /> < id nullFlavor="NA" /> <code codeSystem="local" code="GFR" displayName= "eGFR" /> <statusCode code="completed" /> <effectiveTime value ="899058140545" /> <value unit="mL/min" xsi:type="PQ" value=">60" / > <referenceRange> <observationRange> <text>&gt ;60</text> </observationRange> </referenceRange> </ observation> </component> </organizer> </entry> <entry> <organizer moodCode="EVN" classCode="BATTERY"> <templateId root= "840.1.575935.08.03.22.4.1" /> <id nullFlavor="NA" /> <code codeSystem="local" code="CBCND" displayName="CBC With Platelet No Differential" /> <statusCode code="completed" /> <component> <observation moodCode="EVN" classCode="OBS"> <templateId root= "840.1.559816.08.03.22.4.2" /> <id nullFlavor="NA" /> < code codeSystem="local" code="HCT" displayName="HCT" /> <statusCode code="completed" /> <effectiveTime value="" /> < value unit="%" xsi:type="PQ" value="36.3" /> <interpretationCode codeSystem="local" code="*" /> <referenceRange> < observationRange> <text>37.0-47.0</text> </ observationRange> </referenceRange> </observation> </ component> <component> <observation moodCode="EVN" classCode="OBS"> <templateId root="2.16.840.1.412310.10.22.4.2" /> <id nullFlavor="NA" /> <code codeSystem="local" code="HGB" displayName="HGB " /> <statusCode code="completed" /> <effectiveTime value= "" /> <value unit="g/dL" xsi:type="PQ" value="11.8" /> <interpretationCode codeSystem="local" code="*" /> < referenceRange> <observationRange> <text>12.0-16.0</text > </observationRange> </referenceRange> </observation > </component> <component> <observation moodCode="EVN" classCode="OBS"> <templateId root="216.840.1.863140.102022.4.2" /> <id nullFlavor="NA" /> <code codeSystem="local" code="MCH" displayName="MCH" /> <statusCode code="completed" /> < effectiveTime value="" /> <value unit="pg" xsi:type="PQ" value="30.8" /> <referenceRange> <observationRange> <text>27.0-32.0</text> </observationRange> </ referenceRange> </observation> </component> <component> <observation moodCode="EVN" classCode="OBS"> <templateId root= "216.840.1.110464.1022.4.2" /> <id nullFlavor="NA" /> < code codeSystem="local" code="MCHC" displayName="MCHC" /> <statusCode code="completed" /> <effectiveTime value="" /> < value unit="g/dL" xsi:type="PQ" value="32.5" /> <referenceRange> <observationRange> <text>32.0-36.0</text> </ observationRange> </referenceRange> </observation> </ component> <component> <observation moodCode="EVN" classCode="OBS"> <templateId root="11.30.840.1.506236.10.4.2" /> <id nullFlavor="NA" /> <code codeSystem="local" code="MCV" displayName="MCV " /> <statusCode code="completed" /> <effectiveTime value= "" /> <value unit="fL" xsi:type="PQ" value="94.8" /> <referenceRange> <observationRange> <text>82.0-99.0< /text> </observationRange> </referenceRange> </ observation> </component> <component> <observation moodCode= "EVN" classCode="OBS"> <templateId root="216.840.1.113386.10.22.4.2 " /> <id nullFlavor="NA" /> <code codeSystem="local" code="MPV " displayName="MPV" /> <statusCode code="completed" /> < effectiveTime value="" /> <value unit="fL" xsi:type="PQ" value="10.5" /> <referenceRange> <observationRange> <text>9.4-12.4</text> </observationRange> </ referenceRange> </observation> </component> <component> <observation moodCode="EVN" classCode="OBS"> <templateId root= "11.30.840.1.155325.10.20.22.4.2" /> <id nullFlavor="NA" /> < code codeSystem="local" code="PLT" displayName="Platelet Count" /> < statusCode code="completed" /> <effectiveTime value="572154652905" /> <value unit="K/uL" xsi:type="PQ" value="184" /> < referenceRange> <observationRange> <text>150-400</text> </observationRange> </referenceRange> </observation > </component> <component> <observation moodCode="EVN" classCode="OBS"> <templateId root="840.1.011498.10..22.4.2" /> <id nullFlavor="NA" /> <code codeSystem="local" code="RBC" displayName="RBC" /> <statusCode code="completed" /> < effectiveTime value="[id number]" /> <value unit="10*6/uL" xsi:type= "PQ" value="3.83" /> <interpretationCode codeSystem="local" code="*" / > <referenceRange> <observationRange> <text> 4.00-5.20</text> </observationRange> </referenceRange> </observation> </component> <component> <observation moodCode="EVN" classCode="OBS"> <templateId root= "840.1.158550.10.20.22.4.2" /> <id nullFlavor="NA" /> < code codeSystem="local" code="RDW" displayName="RDW" /> <statusCode code="completed" /> <effectiveTime value="[id number]" /> < value unit="%" xsi:type="PQ" value="13.3" /> <referenceRange> <observationRange> <text>11.5-14.5</text> </ observationRange> </referenceRange> </observation> </ component> <component> <observation moodCode="EVN" classCode="OBS"> <templateId root="840.1.094913.1022.4.2" /> <id nullFlavor="NA" /> <code codeSystem="local" code="WBCIR" displayName= "WBC" /> <statusCode code="completed" /> <effectiveTime value= "[id number]" /> <value unit="K/uL" xsi:type="PQ" value="5.0" /> <referenceRange> <observationRange> <text>4.8-10.8< /text> </observationRange> </referenceRange> </ observation> </component> </organizer> </entry> <entry> <organizer moodCode="EVN" classCode="BATTERY"> <templateId root= "840.1.122328.22.4.1" /> <id nullFlavor="NA" /> <code codeSystem="local" code="CMP" displayName="Comprehensive Metabolic Panel (CMP)" /> <statusCode code="completed" /> <component> <observation moodCode="EVN" classCode="OBS"> <templateId root= "840.1.508289.22.4.2" /> <id nullFlavor="NA" /> < code codeSystem="local" code="ALB" displayName="Albumin" /> < statusCode code="completed" /> <effectiveTime value="[id number]" /> <value unit="g/dL" xsi:type="PQ" value="3.4" /> < interpretationCode codeSystem="local" code="*" /> <referenceRange> <observationRange> <text>3.5-4.8</text> </ observationRange> </referenceRange> </observation> </ component> <component> <observation moodCode="EVN" classCode="OBS"> <templateId root="16.840.1.657287.10..4.2" /> <id nullFlavor="NA" /> <code codeSystem="local" code="ALP" displayName= "Alkaline Phosphatase" /> <statusCode code="completed" /> < effectiveTime value="" /> <value unit="U/L" xsi:type="PQ" value="47" /> <referenceRange> <observationRange> <text>26-104</text> </observationRange> </referenceRange > </observation> </component> <component> <observation moodCode="EVN" classCode="OBS"> <templateId root= "11.30.840.1.122244.10...4.2" /> <id nullFlavor="NA" /> < code codeSystem="local" code="ALT" displayName="ALT (SGPT)" /> < statusCode code="completed" /> <effectiveTime value="[id number]" /> <value unit="U/L" xsi:type="PQ" value="24" /> <referenceRange > <observationRange> <text>14-54</text> </ observationRange> </referenceRange> </observation> </ component> <component> <observation moodCode="EVN" classCode="OBS"> <templateId root="11.30.840.1.192214..4.2" /> <id nullFlavor="NA" /> <code codeSystem="local" code="AGAP" displayName= "Anion Gap" /> <statusCode code="completed" /> <effectiveTime value="" /> <value unit="mEq/L" xsi:type="PQ" value="6" /> <referenceRange> <observationRange> <text>3-20 </text> </observationRange> </referenceRange> </ observation> </component> <component> <observation moodCode= "EVN" classCode="OBS"> <templateId root="2.16.840.1.129498.08.03.22.4.2 " /> <id nullFlavor="NA" /> <code codeSystem="local" code="AST " displayName="AST (SGOT)" /> <statusCode code="completed" /> <effectiveTime value="" /> <value unit="U/L" xsi:type="PQ" value="24" /> <referenceRange> <observationRange> <text>15-41</text> </observationRange> </referenceRange > </observation> </component> <component> <observation moodCode="EVN" classCode="OBS"> <templateId root= "2.16.840.1.459613.08.03.22.4.2" /> <id nullFlavor="NA" /> < code codeSystem="local" code="BILIT" displayName="Bilirubin Total" /> < statusCode code="completed" /> <effectiveTime value="" /> <value unit="mg/dL" xsi:type="PQ" value="0.6" /> < referenceRange> <observationRange> <text>0.2-1.2</text> </observationRange> </referenceRange> </observation > </component> <component> <observation moodCode="EVN" classCode="OBS"> <templateId root="16.840.1.212772.10.20.22.4.2" /> <id nullFlavor="NA" /> <code codeSystem="local" code="BUN" displayName="BUN" /> <statusCode code="completed" /> < effectiveTime value="" /> <value unit="mg/dL" xsi:type="PQ " value="8" /> <referenceRange> <observationRange> <text>4-20</text> </observationRange> </referenceRange > </observation> </component> <component> <observation moodCode="EVN" classCode="OBS"> <templateId root= "11.30.840.1.065573.102022.4.2" /> <id nullFlavor="NA" /> < code codeSystem="local" code="CA" displayName="Calcium" /> <statusCode code="completed" /> <effectiveTime value="" /> < value unit="mg/dL" xsi:type="PQ" value="8.3" /> <interpretationCode codeSystem="local" code="*" /> <referenceRange> < observationRange> <text>8.6-10.0</text> </ observationRange> </referenceRange> </observation> </ component> <component> <observation moodCode="EVN" classCode="OBS"> <templateId root="11.30.840.1.701439.10.2022.4.2" /> <id nullFlavor="NA" /> <code codeSystem="local" code="CL" displayName= "Chloride" /> <statusCode code="completed" /> <effectiveTime value="" /> <value unit="mEq/L" xsi:type="PQ" value="111" / > <interpretationCode codeSystem="local" code="*" /> < referenceRange> <observationRange> <text>99-109</text> </observationRange> </referenceRange> </observation> </component> <component> <observation moodCode="EVN" classCode ="OBS"> <templateId root="16.840.1.434253.10...4.2" /> < id nullFlavor="NA" /> <code codeSystem="local" code="CO2" displayName= "CO2" /> <statusCode code="completed" /> <effectiveTime value= "" /> <value unit="mEq/L" xsi:type="PQ" value="22" /> <referenceRange> <observationRange> <text>22-32</ text> </observationRange> </referenceRange> </ observation> </component> <component> <observation moodCode= "EVN" classCode="OBS"> <templateId root="11.30.840.1.235069.10.4.2 " /> <id nullFlavor="NA" /> <code codeSystem="local" code= "CREAT" displayName="Creatinine" /> <statusCode code="completed" /> <effectiveTime value="" /> <value unit="mg/dL" xsi: type="PQ" value="0.54" /> <referenceRange> <observationRange > <text>0.44-1.03</text> </observationRange> </ referenceRange> </observation> </component> <component> <observation moodCode="EVN" classCode="OBS"> <templateId root= "11.30.840.1.555844.10.2022.4.2" /> <id nullFlavor="NA" /> < code codeSystem="local" code="GLOB" displayName="Globulin" /> < statusCode code="completed" /> <effectiveTime value="" /> <value unit="g/dL" xsi:type="PQ" value="2.1" /> < referenceRange> <observationRange> <text>1.9-4.3</text> </observationRange> </referenceRange> </observation > </component> <component> <observation moodCode="EVN" classCode="OBS"> <templateId root="11.30.840.1.223670.22.4.2" /> <id nullFlavor="NA" /> <code codeSystem="local" code="GLU" displayName="Glucose" /> <statusCode code="completed" /> < effectiveTime value="" /> <value unit="mg/dL" xsi:type="PQ " value="83" /> <referenceRange> <observationRange> <text>70-100</text> </observationRange> </ referenceRange> </observation> </component> <component> <observation moodCode="EVN" classCode="OBS"> <templateId root= "840.1.497907.22.4.2" /> <id nullFlavor="NA" /> < code codeSystem="local" code="K" displayName="Potassium" /> < statusCode code="completed" /> <effectiveTime value="" /> <value unit="mEq/L" xsi:type="PQ" value="3.9" /> < referenceRange> <observationRange> <text>3.6-5.1</text> </observationRange> </referenceRange> </observation > </component> <component> <observation moodCode="EVN" classCode="OBS"> <templateId root="11.30.840.1.248708..2022.4.2" /> <id nullFlavor="NA" /> <code codeSystem="local" code="TP" displayName="Protein" /> <statusCode code="completed" /> < effectiveTime value="" /> <value unit="g/dL" xsi:type="PQ" value="5.5" /> <interpretationCode codeSystem="local" code="*" /> <referenceRange> <observationRange> <text>6.1-7.9</ text> </observationRange> </referenceRange> </ observation> </component> <component> <observation moodCode= "EVN" classCode="OBS"> <templateId root="840.1.207060.08.03.22.4.2 " /> <id nullFlavor="NA" /> <code codeSystem="local" code="NA " displayName="Sodium" /> <statusCode code="completed" /> < effectiveTime value="" /> <value unit="mEq/L" xsi:type="PQ " value="139" /> <referenceRange> <observationRange> <text>136-144</text> </observationRange> </ referenceRange> </observation> </component> </organizer> </entry > <entry> <organizer moodCode="EVN" classCode="BATTERY"> <templateId root="840.1.241644.08.03.22.4.1" /> <id nullFlavor="NA" /> <code codeSystem="local" code="GFR" displayName="eGFR" /> <statusCode code= "completed" /> <component> <observation moodCode="EVN" classCode= "OBS"> <templateId root="11.30.840.1.034609.22.4.2" /> < id nullFlavor="NA" /> <code codeSystem="local" code="GFR" displayName= "eGFR" /> <statusCode code="completed" /> <effectiveTime value ="707625957234" /> <value unit="mL/min" xsi:type="PQ" value=">60" / > <referenceRange> <observationRange> <text>&gt ;60</text> </observationRange> </referenceRange> </ observation> </component> </organizer> </entry> <entry> <organizer moodCode="EVN" classCode="BATTERY"> <templateId root= "216.840.1.815785.10...4.1" /> <id nullFlavor="NA" /> <code codeSystem="local" code="TSHR" displayName="TSH with Reflex Free T4" /> < statusCode code="completed" /> <component> <observation moodCode= "EVN" classCode="OBS"> <templateId root="216.840.1.407207.10...4.2 " /> <id nullFlavor="NA" /> <code codeSystem="local" code= "TSHR" displayName="TSH with Reflex Free T4" /> <statusCode code= "completed" /> <effectiveTime value="090307604025" /> <value unit="uIU/mL" xsi:type="PQ" value="1.17" /> <referenceRange> <observationRange> <text>0.35-4.94</text> </ observationRange> </referenceRange> </observation> </ component> </organizer> </entry> <entry> <organizer moodCode="EVN" classCode="BATTERY"> <templateId root="216.840.1.270664.10..4.1" /> <id nullFlavor="NA" /> <code codeSystem="local" code="UA" displayName= "Urinalysis with reflex microscopic" /> <statusCode code="completed" /> <component> <observation moodCode="EVN" classCode="OBS"> < templateId root="216.840.1.083627.10.4.2" /> <id nullFlavor="NA " /> <code codeSystem="local" code="UAPP" displayName="Appearance" /> <statusCode code="completed" /> <effectiveTime value= "" /> <value unit="NA" xsi:type="PQ" value="Sl Cloudy" /> <referenceRange> <observationRange> <text /> </observationRange> </referenceRange> </observation> </component> <component> <observation moodCode="EVN" classCode= "OBS"> <templateId root="16.840.1.965089.08.03.22.4.2" /> < id nullFlavor="NA" /> <code codeSystem="local" code="UBIL" displayName= "Bilirubin" /> <statusCode code="completed" /> <effectiveTime value="" /> <value unit="NA" xsi:type="PQ" value="Negative " /> <referenceRange> <observationRange> <text> Negative</text> </observationRange> </referenceRange> </observation> </component> <component> <observation moodCode ="EVN" classCode="OBS"> <templateId root= "11.30.840.1.355878.08.03.22.4.2" /> <id nullFlavor="NA" /> < code codeSystem="local" code="UBLD" displayName="Blood" /> <statusCode code="completed" /> <effectiveTime value="" /> < value unit="NA" xsi:type="PQ" value="Pos 3+" /> <interpretationCode codeSystem="local" code="*" /> <referenceRange> < observationRange> <text>Negative</text> </ observationRange> </referenceRange> </observation> </ component> <component> <observation moodCode="EVN" classCode="OBS"> <templateId root="11.30.840.1.218375.10.4.2" /> <id nullFlavor="NA" /> <code codeSystem="local" code="UCOLR" displayName= "Color" /> <statusCode code="completed" /> <effectiveTime value="" /> <value unit="NA" xsi:type="PQ" value="Aliza" / > <interpretationCode codeSystem="local" code="*" /> < referenceRange> <observationRange> <text /> < /observationRange> </referenceRange> </observation> </ component> <component> <observation moodCode="EVN" classCode="OBS"> <templateId root="11.30.840.1.349218.08.03.22.4.2" /> <id nullFlavor="NA" /> <code codeSystem="local" code="UGLU" displayName= "Glucose, Urine" /> <statusCode code="completed" /> < effectiveTime value="" /> <value unit="" xsi:type="PQ" value="Negative" /> <referenceRange> <observationRange> <text>Negative</text> </observationRange> </ referenceRange> </observation> </component> <component> <observation moodCode="EVN" classCode="OBS"> <templateId root= "11.30.840.1.756902.08.03.224.2" /> <id nullFlavor="NA" /> < code codeSystem="local" code="UKET" displayName="Ketones" /> < statusCode code="completed" /> <effectiveTime value="" /> <value unit="" xsi:type="PQ" value="Negative" /> < referenceRange> <observationRange> <text>Negative</text > </observationRange> </referenceRange> </observation > </component> <component> <observation moodCode="EVN" classCode="OBS"> <templateId root="16.840.1.412485.10.4.2" /> <id nullFlavor="NA" /> <code codeSystem="local" code="ULEU" displayName="Leukocyte Esterase" /> <statusCode code="completed" /> <effectiveTime value="" /> <value unit="NA" xsi:type ="PQ" value="Negative" /> <referenceRange> <observationRange > <text>Negative</text> </observationRange> </ referenceRange> </observation> </component> <component> <observation moodCode="EVN" classCode="OBS"> <templateId root= "840.1.001506.08.03.22.4.2" /> <id nullFlavor="NA" /> < code codeSystem="local" code="UNIT" displayName="Nitrites" /> < statusCode code="completed" /> <effectiveTime value="" /> <value unit="NA" xsi:type="PQ" value="Negative" /> < referenceRange> <observationRange> <text>Negative</text > </observationRange> </referenceRange> </observation > </component> <component> <observation moodCode="EVN" classCode="OBS"> <templateId root="11.30.840.1.596905.08.03.22.4.2" /> <id nullFlavor="NA" /> <code codeSystem="local" code="UPH" displayName="pH" /> <statusCode code="completed" /> < effectiveTime value="" /> <value unit="NA" xsi:type="PQ" value="5.0" /> <referenceRange> <observationRange> <text>5.0-8.0</text> </observationRange> </ referenceRange> </observation> </component> <component> <observation moodCode="EVN" classCode="OBS"> <templateId root= "16.840.1.466551.08.03.22.4.2" /> <id nullFlavor="NA" /> < code codeSystem="local" code="UPRO" displayName="Protein" /> < statusCode code="completed" /> <effectiveTime value="" /> <value unit="NA" xsi:type="PQ" value="Negative" /> < referenceRange> <observationRange> <text>Negative</text > </observationRange> </referenceRange> </observation > </component> <component> <observation moodCode="EVN" classCode="OBS"> <templateId root="16.840.1.116488.08.03.22.4.2" /> <id nullFlavor="NA" /> <code codeSystem="local" code="USPG" displayName="Specific Quinlan" /> <statusCode code="completed" /> <effectiveTime value="" /> <value unit="NA" xsi:type= "PQ" value="1.025" /> <referenceRange> <observationRange> <text>1.003-1.030</text> </observationRange> </ referenceRange> </observation> </component> <component> <observation moodCode="EVN" classCode="OBS"> <templateId root= "16.840.1.292817.08.03.22.4.2" /> <id nullFlavor="NA" /> < code codeSystem="local" code="UTYP" displayName="UA Collection type" /> <statusCode code="completed" /> <effectiveTime value="582712337861" / > <value unit="NA" xsi:type="PQ" value="Clean Catch" /> < referenceRange> <observationRange> <text /> < /observationRange> </referenceRange> </observation> </ component> <component> <observation moodCode="EVN" classCode="OBS"> <templateId root="11.30.840.1.346886.08.03.22.4.2" /> <id nullFlavor="NA" /> <code codeSystem="local" code="UURO" displayName= "Urobilinogen" /> <statusCode code="completed" /> < effectiveTime value="435870450897" /> <value unit="mg/dL" xsi:type="PQ " value="2.0" /> <interpretationCode codeSystem="local" code="*" /> <referenceRange> <observationRange> <text><1.0 </text> </observationRange> </referenceRange> </ observation> </component> </organizer> </entry> <entry> <organizer moodCode="EVN" classCode="BATTERY"> <templateId root= "840.1.842145.08.03.22.4.1" /> <id nullFlavor="NA" /> <code codeSystem="local" code="UMIC" displayName="Urine Microscopic" /> < statusCode code="completed" /> <component> <observation moodCode= "EVN" classCode="OBS"> <templateId root="840.1.000624.22.4.2 " /> <id nullFlavor="NA" /> <code codeSystem="local" code= "UBAC" displayName="Bacteria" /> <statusCode code="completed" /> <effectiveTime value="" /> <value unit="NA" xsi:type= "PQ" value="Rare" /> <referenceRange> <observationRange> <text /> </observationRange> </referenceRange> </observation> </component> <component> <observation moodCode="EVN" classCode="OBS"> <templateId root= "11.30.840.1.491479.08.03.22.4.2" /> <id nullFlavor="NA" /> < code codeSystem="local" code="UCRY1" displayName="Crystals" /> < statusCode code="completed" /> <effectiveTime value="" /> <value unit="NA" xsi:type="PQ" value="Ca Ox" /> < referenceRange> <observationRange> <text /> < /observationRange> </referenceRange> </observation> </ component> <component> <observation moodCode="EVN" classCode="OBS"> <templateId root="840.1.767983.08.03.22.4.2" /> <id nullFlavor="NA" /> <code codeSystem="local" code="UEPI" displayName= "Epithelial Cells" /> <statusCode code="completed" /> < effectiveTime value="" /> <value unit="/HPF" xsi:type="PQ" value="0" /> <referenceRange> <observationRange> <text /> </observationRange> </referenceRange> </ observation> </component> <component> <observation moodCode= "EVN" classCode="OBS"> <templateId root="11.30.840.1.928348.08.03.22.4.2 " /> <id nullFlavor="NA" /> <code codeSystem="local" code= "URBC" displayName="RBC, Urine" /> <statusCode code="completed" /> <effectiveTime value="" /> <value unit="/HPF" xsi: type="PQ" value="0" /> <referenceRange> <observationRange> <text>0-2</text> </observationRange> </ referenceRange> </observation> </component> <component> <observation moodCode="EVN" classCode="OBS"> <templateId root= "216.840.1.976278.10..4.2" /> <id nullFlavor="NA" /> < code codeSystem="local" code="UMUC" displayName="Urine Mucus" /> < statusCode code="completed" /> <effectiveTime value="" /> <value unit="NA" xsi:type="PQ" value="Present" /> < referenceRange> <observationRange> <text /> < /observationRange> </referenceRange> </observation> </ component> <component> <observation moodCode="EVN" classCode="OBS"> <templateId root="216.840.1.363411.10..4.2" /> <id nullFlavor="NA" /> <code codeSystem="local" code="UWBC" displayName= "WBC, Urine" /> <statusCode code="completed" /> < effectiveTime value="" /> <value unit="/HPF" xsi:type="PQ" value="2" /> <referenceRange> <observationRange> <text>0-4</text> </observationRange> </referenceRange> </observation> </component> </organizer> </entry> <entry> < organizer moodCode="EVN" classCode="BATTERY"> <templateId root= "216.840.1.449292.10..4.1" /> <id nullFlavor="NA" /> <code codeSystem="local" code="UDRGH" displayName="Urine Drug Screen" /> < statusCode code="completed" /> <component> <observation moodCode= "EVN" classCode="OBS"> <templateId root="2.16.840.1.982257.10..22.4.2 " /> <id nullFlavor="NA" /> <code codeSystem="local" code= "UTCA1" displayName="Tricyclics" /> <statusCode code="completed" /> <effectiveTime value="051491909737" /> <value unit="NA" xsi:type ="PQ" value="Negative" /> <referenceRange> <observationRange > <text /> </observationRange> </referenceRange > </observation> </component> </organizer> </entry> <entry> <organizer moodCode="EVN" classCode="BATTERY"> <templateId root= "2.16.840.1.475819.10..22.4.1" /> <id nullFlavor="NA" /> <code codeSystem="local" code="PREGN" displayName=" Screen, Urine NPT" /> <statusCode code="completed" /> <component> <observation moodCode ="EVN" classCode="OBS"> <templateId root= "216.840.1.417378.10..22.4.2" /> <id nullFlavor="NA" /> < code codeSystem="local" code="PREGN" displayName=" Screen, Urine NPT" / > <statusCode code="completed" /> <effectiveTime value= "844820265387" /> <value unit="NA" xsi:type="PQ" value="Negative" /> <referenceRange> <observationRange> <text /> </observationRange> </referenceRange> </observation> </component> </organizer> </entry> <entry> <organizer moodCode="EVN " classCode="BATTERY"> <templateId root="2.16.840.1.288632.10..22.4.1" / > <id nullFlavor="NA" /> <code codeSystem="local" code="CBCWD" displayName="CBC With Platelet and Differential" /> <statusCode code= "completed" /> <component> <observation moodCode="EVN" classCode= "OBS"> <templateId root="2.16.840.1.832097.10..22.4.2" /> < id nullFlavor="NA" /> <code codeSystem="local" code="ABASR" displayName ="Absolute Basophils" /> <statusCode code="completed" /> < effectiveTime value="121364142816" /> <value unit="10*3/uL" xsi:type= "PQ" value="0.04" /> <referenceRange> <observationRange> <text>0.00-0.20</text> </observationRange> </ referenceRange> </observation> </component> <component> <observation moodCode="EVN" classCode="OBS"> <templateId root= "2.16.840.1.002180.10..22.4.2" /> <id nullFlavor="NA" /> < code codeSystem="local" code="AEOSR" displayName="Absolute Eosinophils" /> <statusCode code="completed" /> <effectiveTime value="749186788573 " /> <value unit="10*3/uL" xsi:type="PQ" value="0.32" /> < referenceRange> <observationRange> <text>0.00-0.50</text > </observationRange> </referenceRange> </observation > </component> <component> <observation moodCode="EVN" classCode="OBS"> <templateId root="216.840.1.179251.10.20.22.4.2" /> <id nullFlavor="NA" /> <code codeSystem="local" code="ALYMR" displayName="Absolute Lymphocytes" /> <statusCode code="completed" /> <effectiveTime value="" /> <value unit="10*3/uL" xsi:type="PQ" value="1.20" /> <referenceRange> < observationRange> <text>0.80-3.30</text> </ observationRange> </referenceRange> </observation> </ component> <component> <observation moodCode="EVN" classCode="OBS"> <templateId root="11.30.840.1.186372...4.2" /> <id nullFlavor="NA" /> <code codeSystem="local" code="AMONR" displayName= "Absolute Monocytes" /> <statusCode code="completed" /> < effectiveTime value="" /> <value unit="10*3/uL" xsi:type= "PQ" value="0.36" /> <referenceRange> <observationRange> <text>0.30-1.00</text> </observationRange> </ referenceRange> </observation> </component> <component> <observation moodCode="EVN" classCode="OBS"> <templateId root= "11.30.840.1.307673.10.20.22.4.2" /> <id nullFlavor="NA" /> < code codeSystem="local" code="ASEGR" displayName="Absolute Neutrophils" /> <statusCode code="completed" /> <effectiveTime value="371488696118 " /> <value unit="10*3/uL" xsi:type="PQ" value="2.23" /> < referenceRange> <observationRange> <text>1.90-7.00</text > </observationRange> </referenceRange> </observation > </component> <component> <observation moodCode="EVN" classCode="OBS"> <templateId root="216.840.1.719328.10.22.4.2" /> <id nullFlavor="NA" /> <code codeSystem="local" code="BASOR" displayName="Basophils" /> <statusCode code="completed" /> < effectiveTime value="878457517687" /> <value unit="%" xsi:type="PQ " value="1" /> <referenceRange> <observationRange> <text>0-2</text> </observationRange> </referenceRange> </observation> </component> <component> <observation moodCode="EVN" classCode="OBS"> <templateId root= "11.30.840.1.336170.08.03.22.4.2" /> <id nullFlavor="NA" /> < code codeSystem="local" code="EOSR" displayName="Eosinophils" /> < statusCode code="completed" /> <effectiveTime value="079748776599" /> <value unit="%" xsi:type="PQ" value="8" /> < interpretationCode codeSystem="local" code="*" /> <referenceRange> <observationRange> <text>0-4</text> </ observationRange> </referenceRange> </observation> </ component> <component> <observation moodCode="EVN" classCode="OBS"> <templateId root="11.30.840.1.764764.10.4.2" /> <id nullFlavor="NA" /> <code codeSystem="local" code="HCT" displayName="HCT " /> <statusCode code="completed" /> <effectiveTime value= "105175129306" /> <value unit="%" xsi:type="PQ" value="37.0" /> <referenceRange> <observationRange> <text>37.0- 47.0</text> </observationRange> </referenceRange> </ observation> </component> <component> <observation moodCode= "EVN" classCode="OBS"> <templateId root="2.16.840.1.333837.10..4.2 " /> <id nullFlavor="NA" /> <code codeSystem="local" code="HGB " displayName="HGB" /> <statusCode code="completed" /> < effectiveTime value="944078519564" /> <value unit="g/dL" xsi:type="PQ" value="12.1" /> <referenceRange> <observationRange> <text>12.0-16.0</text> </observationRange> </ referenceRange> </observation> </component> <component> <observation moodCode="EVN" classCode="OBS"> <templateId root= "216.840.1.907016.10..4.2" /> <id nullFlavor="NA" /> < code codeSystem="local" code="IMGA" displayName="Immature Granulocytes" /> <statusCode code="completed" /> <effectiveTime value="349811298087 " /> <value unit="%" xsi:type="PQ" value="0.2" /> < referenceRange> <observationRange> <text>0.0-1.0</text> </observationRange> </referenceRange> </observation > </component> <component> <observation moodCode="EVN" classCode="OBS"> <templateId root="2.16.840.1.630208.10.22.4.2" /> <id nullFlavor="NA" /> <code codeSystem="local" code="LYMPR" displayName="Lymphocytes" /> <statusCode code="completed" /> < effectiveTime value="079143878049" /> <value unit="%" xsi:type="PQ " value="29" /> <referenceRange> <observationRange> <text>20-46</text> </observationRange> </ referenceRange> </observation> </component> <component> <observation moodCode="EVN" classCode="OBS"> <templateId root= "2.16.840.1.871235.10..22.4.2" /> <id nullFlavor="NA" /> < code codeSystem="local" code="MCH" displayName="MCH" /> <statusCode code="completed" /> <effectiveTime value="" /> < value unit="pg" xsi:type="PQ" value="30.6" /> <referenceRange> <observationRange> <text>27.0-32.0</text> </ observationRange> </referenceRange> </observation> </ component> <component> <observation moodCode="EVN" classCode="OBS"> <templateId root="2.16.840.1.193664.10..22.4.2" /> <id nullFlavor="NA" /> <code codeSystem="local" code="MCHC" displayName= "MCHC" /> <statusCode code="completed" /> <effectiveTime value ="435822548423" /> <value unit="g/dL" xsi:type="PQ" value="32.7" /> <referenceRange> <observationRange> <text>32.0- 36.0</text> </observationRange> </referenceRange> </ observation> </component> <component> <observation moodCode= "EVN" classCode="OBS"> <templateId root="11.30.840.1.224781.10.22.4.2 " /> <id nullFlavor="NA" /> <code codeSystem="local" code="MCV " displayName="MCV" /> <statusCode code="completed" /> < effectiveTime value="994103150274" /> <value unit="fL" xsi:type="PQ" value="93.4" /> <referenceRange> <observationRange> <text>82.0-99.0</text> </observationRange> </ referenceRange> </observation> </component> <component> <observation moodCode="EVN" classCode="OBS"> <templateId root= "11.30.840.1.764936.08.03.22.4.2" /> <id nullFlavor="NA" /> < code codeSystem="local" code="MONOR" displayName="Monocytes" /> < statusCode code="completed" /> <effectiveTime value="245545573008" /> <value unit="%" xsi:type="PQ" value="9" /> <referenceRange > <observationRange> <text>4-11</text> </ observationRange> </referenceRange> </observation> </ component> <component> <observation moodCode="EVN" classCode="OBS"> <templateId root="11.30.840.1.276801.102022.4.2" /> <id nullFlavor="NA" /> <code codeSystem="local" code="MPV" displayName="MPV " /> <statusCode code="completed" /> <effectiveTime value= "155416270133" /> <value unit="fL" xsi:type="PQ" value="10.1" /> <referenceRange> <observationRange> <text>9.4-12.4</ text> </observationRange> </referenceRange> </ observation> </component> <component> <observation moodCode= "EVN" classCode="OBS"> <templateId root="216.840.1.564450.10.4.2 " /> <id nullFlavor="NA" /> <code codeSystem="local" code= "SEGR" displayName="Neutrophils" /> <statusCode code="completed" /> <effectiveTime value="" /> <value unit="%" xsi: type="PQ" value="54" /> <referenceRange> <observationRange> <text>51-75</text> </observationRange> </ referenceRange> </observation> </component> <component> <observation moodCode="EVN" classCode="OBS"> <templateId root= "11.30.840.1.132989.08.03.22.4.2" /> <id nullFlavor="NA" /> < code codeSystem="local" code="NRBCA" displayName="Nucleated RBC Automated" /> <statusCode code="completed" /> <effectiveTime value= "" /> <value unit="/100WBC" xsi:type="PQ" value="0.0" /> <referenceRange> <observationRange> <text /> </observationRange> </referenceRange> </observation> </component> <component> <observation moodCode="EVN" classCode= "OBS"> <templateId root="11.30.840.1.399853.10..4.2" /> < id nullFlavor="NA" /> <code codeSystem="local" code="PLT" displayName= "Platelet Count" /> <statusCode code="completed" /> < effectiveTime value="" /> <value unit="K/uL" xsi:type="PQ" value="192" /> <referenceRange> <observationRange> <text>150-400</text> </observationRange> </ referenceRange> </observation> </component> <component> <observation moodCode="EVN" classCode="OBS"> <templateId root= "16.840.1.386761.10.20.22.4.2" /> <id nullFlavor="NA" /> < code codeSystem="local" code="RBC" displayName="RBC" /> <statusCode code="completed" /> <effectiveTime value="718991307397" /> < value unit="10*6/uL" xsi:type="PQ" value="3.96" /> <interpretationCode codeSystem="local" code="*" /> <referenceRange> < observationRange> <text>4.00-5.20</text> </ observationRange> </referenceRange> </observation> </ component> <component> <observation moodCode="EVN" classCode="OBS"> <templateId root="840.1.256468.1022.4.2" /> <id nullFlavor="NA" /> <code codeSystem="local" code="RDW" displayName="RDW " /> <statusCode code="completed" /> <effectiveTime value= "348192928517" /> <value unit="%" xsi:type="PQ" value="13.3" /> <referenceRange> <observationRange> <text>11.5- 14.5</text> </observationRange> </referenceRange> </ observation> </component> <component> <observation moodCode= "EVN" classCode="OBS"> <templateId root="11.30.840.1.774023.10.20.22.4.2 " /> <id nullFlavor="NA" /> <code codeSystem="local" code= "WBCIR" displayName="WBC" /> <statusCode code="completed" /> < effectiveTime value="203175954099" /> <value unit="K/uL" xsi:type="PQ" value="4.2" /> <interpretationCode codeSystem="local" code="*" /> <referenceRange> <observationRange> <text>4.8-10.8< /text> </observationRange> </referenceRange> </ observation> </component> </organizer> </entry> <entry> <organizer moodCode="EVN" classCode="BATTERY"> <templateId root= "216.840.1.794296.10..22.4.1" /> <id nullFlavor="NA" /> <code codeSystem="local" code="CMP" displayName="Comprehensive Metabolic Panel (CMP)" /> <statusCode code="completed" /> <component> <observation moodCode="EVN" classCode="OBS"> <templateId root= "16.840.1.895747.10..22.4.2" /> <id nullFlavor="NA" /> < code codeSystem="local" code="ALB" displayName="Albumin" /> < statusCode code="completed" /> <effectiveTime value="068517045769" /> <value unit="g/dL" xsi:type="PQ" value="3.5" /> < referenceRange> <observationRange> <text>3.5-4.8</text> </observationRange> </referenceRange> </observation > </component> <component> <observation moodCode="EVN" classCode="OBS"> <templateId root="11.30.840.1.766986.10.20.22.4.2" /> <id nullFlavor="NA" /> <code codeSystem="local" code="ALP" displayName="Alkaline Phosphatase" /> <statusCode code="completed" /> <effectiveTime value="054097565184" /> <value unit="U/L" xsi: type="PQ" value="64" /> <referenceRange> <observationRange> <text>26-104</text> </observationRange> </ referenceRange> </observation> </component> <component> <observation moodCode="EVN" classCode="OBS"> <templateId root= "16.840.1.551916.08.03.22.4.2" /> <id nullFlavor="NA" /> < code codeSystem="local" code="ALT" displayName="ALT (SGPT)" /> < statusCode code="completed" /> <effectiveTime value="162411952245" /> <value unit="U/L" xsi:type="PQ" value="209" /> < interpretationCode codeSystem="local" code="*" /> <referenceRange> <observationRange> <text>14-54</text> </ observationRange> </referenceRange> </observation> </ component> <component> <observation moodCode="EVN" classCode="OBS"> <templateId root="16.840.1.285030.22.4.2" /> <id nullFlavor="NA" /> <code codeSystem="local" code="AGAP" displayName= "Anion Gap" /> <statusCode code="completed" /> <effectiveTime value="965246740688" /> <value unit="mEq/L" xsi:type="PQ" value="8" /> <referenceRange> <observationRange> <text>3-20 </text> </observationRange> </referenceRange> </ observation> </component> <component> <observation moodCode= "EVN" classCode="OBS"> <templateId root="11.30.840.1.305945.08.03.22.4.2 " /> <id nullFlavor="NA" /> <code codeSystem="local" code="AST " displayName="AST (SGOT)" /> <statusCode code="completed" /> <effectiveTime value="441693150241" /> <value unit="U/L" xsi:type="PQ" value="155" /> <interpretationCode codeSystem="local" code="*" /> <referenceRange> <observationRange> <text>15-41</ text> </observationRange> </referenceRange> </ observation> </component> <component> <observation moodCode= "EVN" classCode="OBS"> <templateId root="216.840.1.505644.08.03.22.4.2 " /> <id nullFlavor="NA" /> <code codeSystem="local" code= "BILIT" displayName="Bilirubin Total" /> <statusCode code="completed" / > <effectiveTime value="131260986149" /> <value unit="mg/dL" xsi:type="PQ" value="0.5" /> <referenceRange> < observationRange> <text>0.2-1.2</text> </ observationRange> </referenceRange> </observation> </ component> <component> <observation moodCode="EVN" classCode="OBS"> <templateId root="11.30.840.1.876909.08.03.22.4.2" /> <id nullFlavor="NA" /> <code codeSystem="local" code="BUN" displayName="BUN " /> <statusCode code="completed" /> <effectiveTime value= "192165377305" /> <value unit="mg/dL" xsi:type="PQ" value="8" /> <referenceRange> <observationRange> <text>4-20</text > </observationRange> </referenceRange> </observation > </component> <component> <observation moodCode="EVN" classCode="OBS"> <templateId root="16.840.1.860121.1022.4.2" /> <id nullFlavor="NA" /> <code codeSystem="local" code="CA" displayName="Calcium" /> <statusCode code="completed" /> < effectiveTime value="875300980251" /> <value unit="mg/dL" xsi:type="PQ " value="8.8" /> <referenceRange> <observationRange> <text>8.6-10.0</text> </observationRange> </ referenceRange> </observation> </component> <component> <observation moodCode="EVN" classCode="OBS"> <templateId root= "11.30.840.1.789400.08.03.22.4.2" /> <id nullFlavor="NA" /> < code codeSystem="local" code="CL" displayName="Chloride" /> < statusCode code="completed" /> <effectiveTime value="783676755172" /> <value unit="mEq/L" xsi:type="PQ" value="108" /> < referenceRange> <observationRange> <text>99-109</text> </observationRange> </referenceRange> </observation> </component> <component> <observation moodCode="EVN" classCode ="OBS"> <templateId root="11.30.840.1.073925.1022.4.2" /> < id nullFlavor="NA" /> <code codeSystem="local" code="CO2" displayName= "CO2" /> <statusCode code="completed" /> <effectiveTime value= "546572285650" /> <value unit="mEq/L" xsi:type="PQ" value="24" /> <referenceRange> <observationRange> <text>22-32</ text> </observationRange> </referenceRange> </ observation> </component> <component> <observation moodCode= "EVN" classCode="OBS"> <templateId root="16.840.1.823096.10..4.2 " /> <id nullFlavor="NA" /> <code codeSystem="local" code= "CREAT" displayName="Creatinine" /> <statusCode code="completed" /> <effectiveTime value="900978628069" /> <value unit="mg/dL" xsi: type="PQ" value="0.77" /> <referenceRange> <observationRange > <text>0.44-1.03</text> </observationRange> </ referenceRange> </observation> </component> <component> <observation moodCode="EVN" classCode="OBS"> <templateId root= "11.30.840.1.715577.10..4.2" /> <id nullFlavor="NA" /> < code codeSystem="local" code="GLOB" displayName="Globulin" /> < statusCode code="completed" /> <effectiveTime value="776298335748" /> <value unit="g/dL" xsi:type="PQ" value="2.3" /> < referenceRange> <observationRange> <text>1.9-4.3</text> </observationRange> </referenceRange> </observation > </component> <component> <observation moodCode="EVN" classCode="OBS"> <templateId root="11.30.840.1.244692.10..4.2" /> <id nullFlavor="NA" /> <code codeSystem="local" code="GLU" displayName="Glucose" /> <statusCode code="completed" /> < effectiveTime value="111912934030" /> <value unit="mg/dL" xsi:type="PQ " value="111" /> <interpretationCode codeSystem="local" code="*" /> <referenceRange> <observationRange> <text>70-100< /text> </observationRange> </referenceRange> </ observation> </component> <component> <observation moodCode= "EVN" classCode="OBS"> <templateId root="16.840.1.022158.10.22.4.2 " /> <id nullFlavor="NA" /> <code codeSystem="local" code="K" displayName="Potassium" /> <statusCode code="completed" /> < effectiveTime value="463836125270" /> <value unit="mEq/L" xsi:type="PQ " value="3.5" /> <interpretationCode codeSystem="local" code="*" /> <referenceRange> <observationRange> <text>3.6-5.1 </text> </observationRange> </referenceRange> </ observation> </component> <component> <observation moodCode= "EVN" classCode="OBS"> <templateId root="16.840.1.193919.10..22.4.2 " /> <id nullFlavor="NA" /> <code codeSystem="local" code="TP " displayName="Protein" /> <statusCode code="completed" /> < effectiveTime value="628734488576" /> <value unit="g/dL" xsi:type="PQ" value="5.8" /> <interpretationCode codeSystem="local" code="*" /> <referenceRange> <observationRange> <text>6.1-7.9</ text> </observationRange> </referenceRange> </ observation> </component> <component> <observation moodCode= "EVN" classCode="OBS"> <templateId root="11.30.840.1.269426.10..22.4.2 " /> <id nullFlavor="NA" /> <code codeSystem="local" code="NA " displayName="Sodium" /> <statusCode code="completed" /> < effectiveTime value="870767990773" /> <value unit="mEq/L" xsi:type="PQ " value="140" /> <referenceRange> <observationRange> <text>136-144</text> </observationRange> </ referenceRange> </observation> </component> </organizer> </entry > <entry> <organizer moodCode="EVN" classCode="BATTERY"> <templateId root="11.30.840.1.751651.10.22.4.1" /> <id nullFlavor="NA" /> <code codeSystem="local" code="ALC" displayName="Alcohol, Blood" /> <statusCode code="completed" /> <component> <observation moodCode="EVN" classCode="OBS"> <templateId root="16.840.1.692932.10..4.2" /> <id nullFlavor="NA" /> <code codeSystem="local" code="ALC" displayName="Alcohol, Blood" /> <statusCode code="completed" /> <effectiveTime value="576594634340" /> <value unit="mg/dL" xsi:type= "PQ" value="Not Detected" /> <referenceRange> < observationRange> <text /> </observationRange> </referenceRange> </observation> </component> </organizer> </ entry> <entry> <organizer moodCode="EVN" classCode="BATTERY"> < templateId root="16.840.1.730254...4.1" /> <id nullFlavor="NA" /> <code codeSystem="local" code="GFR" displayName="eGFR" /> < statusCode code="completed" /> <component> <observation moodCode= "EVN" classCode="OBS"> <templateId root="16.840.1.546282.10.4.2 " /> <id nullFlavor="NA" /> <code codeSystem="local" code="GFR " displayName="eGFR" /> <statusCode code="completed" /> < effectiveTime value="318070400003" /> <value unit="mL/min" xsi:type="PQ " value=">60" /> <referenceRange> <observationRange> <text>>60</text> </observationRange> </ referenceRange> </observation> </component> </organizer> </entry > <entry> <organizer moodCode="EVN" classCode="BATTERY"> <templateId root="11.30.840.1.497213.10.4.1" /> <id nullFlavor="NA" /> <code codeSystem="local" code="ACETM" displayName="Acetaminophen" /> <statusCode code="completed" /> <component> <observation moodCode="EVN" classCode="OBS"> <templateId root="11.30.840.1.383992.10.4.2" /> <id nullFlavor="NA" /> <code codeSystem="local" code="ACETM" displayName="Acetaminophen" /> <statusCode code="completed" /> <effectiveTime value="926583856583" /> <value unit="mcg/mL" xsi:type= "PQ" value="<10" /> <referenceRange> <observationRange> <text>10-30</text> </observationRange> </ referenceRange> </observation> </component> </organizer> </entry > <entry> <organizer moodCode="EVN" classCode="BATTERY"> <templateId root="840.1.903413.10..4.1" /> <id nullFlavor="NA" /> <code codeSystem="local" code="SALIC" displayName="Salicylate" /> <statusCode code="completed" /> <component> <observation moodCode="EVN" classCode="OBS"> <templateId root="840.1.678796.08.03.22.4.2" /> <id nullFlavor="NA" /> <code codeSystem="local" code="SALIC" displayName="Salicylate" /> <statusCode code="completed" /> < effectiveTime value="660930313849" /> <value unit="mg/dL" xsi:type="PQ " value="<4" /> <referenceRange> <observationRange> <text>0-30</text> </observationRange> </ referenceRange> </observation> </component> </organizer> </entry > <entry> <organizer moodCode="EVN" classCode="BATTERY"> <templateId root="840.1.361877.08.03.22.4.1" /> <id nullFlavor="NA" /> <code codeSystem="local" code="TSHR" displayName="TSH with Reflex Free T4" /> < statusCode code="completed" /> <component> <observation moodCode= "EVN" classCode="OBS"> <templateId root="11.30.840.1.912512.08.03.22.4.2 " /> <id nullFlavor="NA" /> <code codeSystem="local" code= "TSHR" displayName="TSH with Reflex Free T4" /> <statusCode code= "completed" /> <effectiveTime value="497313516301" /> <value unit="uIU/mL" xsi:type="PQ" value="0.55" /> <referenceRange> <observationRange> <text>0.35-4.94</text> </ observationRange> </referenceRange> </observation> </ component> </organizer> </entry> <entry> <organizer moodCode="EVN" classCode="BATTERY"> <templateId root="216.840.1.466312.10.20.22.4.1" /> <id nullFlavor="NA" /> <code codeSystem="local" code="CPK" displayName ="Creatine Kinase (CPK)" /> <statusCode code="completed" /> <component > <observation moodCode="EVN" classCode="OBS"> <templateId root= "2.16.840.1.472843.10..22.4.2" /> <id nullFlavor="NA" /> < code codeSystem="local" code="CPK" displayName="Creatine Kinase (CPK)" /> <statusCode code="completed" /> <effectiveTime value="536418674457 " /> <value unit="U/L" xsi:type="PQ" value="74" /> < referenceRange> <observationRange> <text>38-234</text> </observationRange> </referenceRange> </observation> </component> </organizer> </entry> <entry> <organizer moodCode= "EVN" classCode="BATTERY"> <templateId root="216.840.1.841557.10.20.22.4.1 " /> <id nullFlavor="NA" /> <code codeSystem="local" code="HEP4" displayName="Hepatitis Panel" /> <statusCode code="completed" /> < component> <observation moodCode="EVN" classCode="OBS"> < templateId root="840.1.502605.10.4.2" /> <id nullFlavor="NA " /> <code codeSystem="local" code="HAABM" displayName="Hepatitis A Antibody IGM" /> <statusCode code="completed" /> < effectiveTime value="119778688185" /> <value unit="" xsi:type="PQ" value="Negative" /> <referenceRange> <observationRange> <text /> </observationRange> </referenceRange> </observation> </component> <component> <observation moodCode="EVN" classCode="OBS"> <templateId root= "840.1.739702.08.03.22.4.2" /> <id nullFlavor="NA" /> < code codeSystem="local" code="HBSAG" displayName="Hepatitis B Surface Antigen" / > <statusCode code="completed" /> <effectiveTime value= "139733782433" /> <value unit="" xsi:type="PQ" value="Negative" /> <referenceRange> <observationRange> <text /> </observationRange> </referenceRange> </observation> </component> </organizer> </entry> <entry> <organizer moodCode="EVN" classCode="BATTERY"> <templateId root="840.1.400942.08.03.22.4.1" /> <id nullFlavor="NA" /> <code codeSystem="local" code="PREGN" displayName=" Screen, Urine NPT" /> <statusCode code="completed" / > <component> <observation moodCode="EVN" classCode="OBS"> <templateId root="840.1.642591.08.03.22.4.2" /> <id nullFlavor="NA " /> <code codeSystem="local" code="PREGN" displayName=" Screen, Urine NPT" /> <statusCode code="completed" /> < effectiveTime value="366632259993" /> <value unit="NA" xsi:type="PQ" value="Negative" /> <referenceRange> <observationRange> <text /> </observationRange> </referenceRange> </observation> </component> </organizer> </entry> <entry> < organizer moodCode="EVN" classCode="BATTERY"> <templateId root= "216.840.1.640736.10...4.1" /> <id nullFlavor="NA" /> <code codeSystem="local" code="UA" displayName="Urinalysis with reflex microscopic" / > <statusCode code="completed" /> <component> <observation moodCode="EVN" classCode="OBS"> <templateId root= "216.840.1.795688.10...4.2" /> <id nullFlavor="NA" /> < code codeSystem="local" code="UAPP" displayName="Appearance" /> < statusCode code="completed" /> <effectiveTime value="500436043197" /> <value unit="NA" xsi:type="PQ" value="Sl Cloudy" /> < referenceRange> <observationRange> <text /> < /observationRange> </referenceRange> </observation> </ component> <component> <observation moodCode="EVN" classCode="OBS"> <templateId root="216.840.1.979840.10...4.2" /> <id nullFlavor="NA" /> <code codeSystem="local" code="UBIL" displayName= "Bilirubin" /> <statusCode code="completed" /> <effectiveTime value="084402694425" /> <value unit="NA" xsi:type="PQ" value="Negative " /> <referenceRange> <observationRange> <text> Negative</text> </observationRange> </referenceRange> </observation> </component> <component> <observation moodCode ="EVN" classCode="OBS"> <templateId root= "16.840.1.102598.10.4.2" /> <id nullFlavor="NA" /> < code codeSystem="local" code="UBLD" displayName="Blood" /> <statusCode code="completed" /> <effectiveTime value="362496787482" /> < value unit="NA" xsi:type="PQ" value="Negative" /> <referenceRange> <observationRange> <text>Negative</text> </ observationRange> </referenceRange> </observation> </ component> <component> <observation moodCode="EVN" classCode="OBS"> <templateId root="11.30.840.1.332600.08.03.22.4.2" /> <id nullFlavor="NA" /> <code codeSystem="local" code="UCOLR" displayName= "Color" /> <statusCode code="completed" /> <effectiveTime value="542002657844" /> <value unit="NA" xsi:type="PQ" value="Yellow" / > <referenceRange> <observationRange> <text /> </observationRange> </referenceRange> </observation > </component> <component> <observation moodCode="EVN" classCode="OBS"> <templateId root="11.30.840.1.780206.08.03.22.4.2" /> <id nullFlavor="NA" /> <code codeSystem="local" code="UGLU" displayName="Glucose, Urine" /> <statusCode code="completed" /> <effectiveTime value="095487744250" /> <value unit="" xsi:type="PQ" value="Negative" /> <referenceRange> <observationRange> <text>Negative</text> </observationRange> </ referenceRange> </observation> </component> <component> <observation moodCode="EVN" classCode="OBS"> <templateId root= "11.30.840.1.404373.08.03.22.4.2" /> <id nullFlavor="NA" /> < code codeSystem="local" code="UKET" displayName="Ketones" /> < statusCode code="completed" /> <effectiveTime value="578311274926" /> <value unit="" xsi:type="PQ" value="Negative" /> < referenceRange> <observationRange> <text>Negative</text > </observationRange> </referenceRange> </observation > </component> <component> <observation moodCode="EVN" classCode="OBS"> <templateId root="11.30.840.1.263675.08.03.22.4.2" /> <id nullFlavor="NA" /> <code codeSystem="local" code="ULEU" displayName="Leukocyte Esterase" /> <statusCode code="completed" /> <effectiveTime value="647200980145" /> <value unit="NA" xsi:type ="PQ" value="Trace" /> <interpretationCode codeSystem="local" code="*" /> <referenceRange> <observationRange> <text> Negative</text> </observationRange> </referenceRange> </observation> </component> <component> <observation moodCode ="EVN" classCode="OBS"> <templateId root= "11.30.840.1.190621.08.03.22.4.2" /> <id nullFlavor="NA" /> < code codeSystem="local" code="UNIT" displayName="Nitrites" /> < statusCode code="completed" /> <effectiveTime value="303728873875" /> <value unit="NA" xsi:type="PQ" value="Negative" /> < referenceRange> <observationRange> <text>Negative</text > </observationRange> </referenceRange> </observation > </component> <component> <observation moodCode="EVN" classCode="OBS"> <templateId root="11.30.840.1.487504.10.22.4.2" /> <id nullFlavor="NA" /> <code codeSystem="local" code="UPH" displayName="pH" /> <statusCode code="completed" /> < effectiveTime value="104702850331" /> <value unit="NA" xsi:type="PQ" value="6.0" /> <referenceRange> <observationRange> <text>5.0-8.0</text> </observationRange> </ referenceRange> </observation> </component> <component> <observation moodCode="EVN" classCode="OBS"> <templateId root= "11.30.840.1.527310.08.03.22.4.2" /> <id nullFlavor="NA" /> < code codeSystem="local" code="UPRO" displayName="Protein" /> < statusCode code="completed" /> <effectiveTime value="785882305015" /> <value unit="NA" xsi:type="PQ" value="Negative" /> < referenceRange> <observationRange> <text>Negative</text > </observationRange> </referenceRange> </observation > </component> <component> <observation moodCode="EVN" classCode="OBS"> <templateId root="11.30.840.1.246300.22.4.2" /> <id nullFlavor="NA" /> <code codeSystem="local" code="USPG" displayName="Specific Quinlan" /> <statusCode code="completed" /> <effectiveTime value="806306213270" /> <value unit="NA" xsi:type= "PQ" value="1.020" /> <referenceRange> <observationRange> <text>1.003-1.030</text> </observationRange> </ referenceRange> </observation> </component> <component> <observation moodCode="EVN" classCode="OBS"> <templateId root= "2.16.840.1.831951.08.03.22.4.2" /> <id nullFlavor="NA" /> < code codeSystem="local" code="UTYP" displayName="UA Collection type" /> <statusCode code="completed" /> <effectiveTime value="080658201132" / > <value unit="NA" xsi:type="PQ" value="Voided" /> < referenceRange> <observationRange> <text /> < /observationRange> </referenceRange> </observation> </ component> <component> <observation moodCode="EVN" classCode="OBS"> <templateId root="2.16.840.1.967997.10..4.2" /> <id nullFlavor="NA" /> <code codeSystem="local" code="UURO" displayName= "Urobilinogen" /> <statusCode code="completed" /> < effectiveTime value="034232943370" /> <value unit="mg/dL" xsi:type="PQ " value="Negative" /> <referenceRange> <observationRange> <text><1.0</text> </observationRange> </ referenceRange> </observation> </component> </organizer> </entry > <entry> <organizer moodCode="EVN" classCode="BATTERY"> <templateId root="840.1.775543.08.03.22.4.1" /> <id nullFlavor="NA" /> <code codeSystem="local" code="UMIC" displayName="Urine Microscopic" /> < statusCode code="completed" /> <component> <observation moodCode= "EVN" classCode="OBS"> <templateId root="840.1.270709.08.03.224.2 " /> <id nullFlavor="NA" /> <code codeSystem="local" code= "UBAC" displayName="Bacteria" /> <statusCode code="completed" /> <effectiveTime value="497995365832" /> <value unit="NA" xsi:type= "PQ" value="Moderate" /> <interpretationCode codeSystem="local" code="* " /> <referenceRange> <observationRange> <text /> </observationRange> </referenceRange> </ observation> </component> <component> <observation moodCode= "EVN" classCode="OBS"> <templateId root="840.1.456342.08.03.224.2 " /> <id nullFlavor="NA" /> <code codeSystem="local" code= "UEPI" displayName="Epithelial Cells" /> <statusCode code="completed" / > <effectiveTime value="861041034881" /> <value unit="/HPF" xsi:type="PQ" value="10" /> <referenceRange> < observationRange> <text /> </observationRange> </referenceRange> </observation> </component> <component> <observation moodCode="EVN" classCode="OBS"> <templateId root= "840.1.846221.08.03.22.4.2" /> <id nullFlavor="NA" /> < code codeSystem="local" code="URBC" displayName="RBC, Urine" /> < statusCode code="completed" /> <effectiveTime value="928222435505" /> <value unit="/HPF" xsi:type="PQ" value="0" /> <referenceRange > <observationRange> <text>0-2</text> </ observationRange> </referenceRange> </observation> </ component> <component> <observation moodCode="EVN" classCode="OBS"> <templateId root="216.840.1.662506.10..22.4.2" /> <id nullFlavor="NA" /> <code codeSystem="local" code="UMUC" displayName= "Urine Mucus" /> <statusCode code="completed" /> < effectiveTime value="844009331908" /> <value unit="NA" xsi:type="PQ" value="Present" /> <referenceRange> <observationRange> <text /> </observationRange> </referenceRange> </observation> </component> <component> <observation moodCode="EVN" classCode="OBS"> <templateId root= "216.840.1.849060.10..22.4.2" /> <id nullFlavor="NA" /> < code codeSystem="local" code="UWBC" displayName="WBC, Urine" /> < statusCode code="completed" /> <effectiveTime value="280207554323" /> <value unit="/HPF" xsi:type="PQ" value="2" /> <referenceRange > <observationRange> <text>0-4</text> </ observationRange> </referenceRange> </observation> </ component> </organizer> </entry> <entry> <organizer moodCode="EVN" classCode="BATTERY"> <templateId root="2.16.840.1.734930.10..4.1" /> <id nullFlavor="NA" /> <code codeSystem="local" code="CBCWD" displayName="CBC With Platelet and Differential" /> <statusCode code= "completed" /> <component> <observation moodCode="EVN" classCode= "OBS"> <templateId root="11.30.840.1.807941.08.03.22.4.2" /> < id nullFlavor="NA" /> <code codeSystem="local" code="ABASR" displayName ="Absolute Basophils" /> <statusCode code="completed" /> < effectiveTime value="662157829897" /> <value unit="10*3/uL" xsi:type= "PQ" value="0.03" /> <referenceRange> <observationRange> <text>0.00-0.20</text> </observationRange> </ referenceRange> </observation> </component> <component> <observation moodCode="EVN" classCode="OBS"> <templateId root= "11.30.840.1.985448.08.03.22.4.2" /> <id nullFlavor="NA" /> < code codeSystem="local" code="AEOSR" displayName="Absolute Eosinophils" /> <statusCode code="completed" /> <effectiveTime value="456519971599 " /> <value unit="10*3/uL" xsi:type="PQ" value="0.26" /> < referenceRange> <observationRange> <text>0.00-0.50</text > </observationRange> </referenceRange> </observation > </component> <component> <observation moodCode="EVN" classCode="OBS"> <templateId root="216.840.1.566359.08.03.22.4.2" /> <id nullFlavor="NA" /> <code codeSystem="local" code="ALYMR" displayName="Absolute Lymphocytes" /> <statusCode code="completed" /> <effectiveTime value="996161359795" /> <value unit="10*3/uL" xsi:type="PQ" value="1.96" /> <referenceRange> < observationRange> <text>0.80-3.30</text> </ observationRange> </referenceRange> </observation> </ component> <component> <observation moodCode="EVN" classCode="OBS"> <templateId root="2.16.840.1.564986....4.2" /> <id nullFlavor="NA" /> <code codeSystem="local" code="AMONR" displayName= "Absolute Monocytes" /> <statusCode code="completed" /> < effectiveTime value="070028080148" /> <value unit="10*3/uL" xsi:type= "PQ" value="0.43" /> <referenceRange> <observationRange> <text>0.30-1.00</text> </observationRange> </ referenceRange> </observation> </component> <component> <observation moodCode="EVN" classCode="OBS"> <templateId root= "2.16.840.1.176778....4.2" /> <id nullFlavor="NA" /> < code codeSystem="local" code="ASEGR" displayName="Absolute Neutrophils" /> <statusCode code="completed" /> <effectiveTime value="852837189442 " /> <value unit="10*3/uL" xsi:type="PQ" value="3.42" /> < referenceRange> <observationRange> <text>1.90-7.00</text > </observationRange> </referenceRange> </observation > </component> <component> <observation moodCode="EVN" classCode="OBS"> <templateId root="216.840.1.921873.10.20.22.4.2" /> <id nullFlavor="NA" /> <code codeSystem="local" code="BASOR" displayName="Basophils" /> <statusCode code="completed" /> < effectiveTime value="" /> <value unit="%" xsi:type="PQ " value="1" /> <referenceRange> <observationRange> <text>0-2</text> </observationRange> </referenceRange> </observation> </component> <component> <observation moodCode="EVN" classCode="OBS"> <templateId root= "216.840.1.032506.10.22.4.2" /> <id nullFlavor="NA" /> < code codeSystem="local" code="EOSR" displayName="Eosinophils" /> < statusCode code="completed" /> <effectiveTime value="" /> <value unit="%" xsi:type="PQ" value="4" /> <referenceRange > <observationRange> <text>0-4</text> </ observationRange> </referenceRange> </observation> </ component> <component> <observation moodCode="EVN" classCode="OBS"> <templateId root="16.840.1.958438.10.2022.4.2" /> <id nullFlavor="NA" /> <code codeSystem="local" code="HCT" displayName="HCT " /> <statusCode code="completed" /> <effectiveTime value= "454471621192" /> <value unit="%" xsi:type="PQ" value="36.8" /> <interpretationCode codeSystem="local" code="*" /> < referenceRange> <observationRange> <text>37.0-47.0</text > </observationRange> </referenceRange> </observation > </component> <component> <observation moodCode="EVN" classCode="OBS"> <templateId root="16.840.1.419727.10.20.22.4.2" /> <id nullFlavor="NA" /> <code codeSystem="local" code="HGB" displayName="HGB" /> <statusCode code="completed" /> < effectiveTime value="133364497813" /> <value unit="g/dL" xsi:type="PQ" value="11.7" /> <interpretationCode codeSystem="local" code="*" /> <referenceRange> <observationRange> <text>12.0- 16.0</text> </observationRange> </referenceRange> </ observation> </component> <component> <observation moodCode= "EVN" classCode="OBS"> <templateId root="11.30.840.1.832781...4.2 " /> <id nullFlavor="NA" /> <code codeSystem="local" code= "IMGA" displayName="Immature Granulocytes" /> <statusCode code= "completed" /> <effectiveTime value="653523433415" /> <value unit="%" xsi:type="PQ" value="0.5" /> <referenceRange> < observationRange> <text>0.0-1.0</text> </ observationRange> </referenceRange> </observation> </ component> <component> <observation moodCode="EVN" classCode="OBS"> <templateId root="16.840.1.028628.10...4.2" /> <id nullFlavor="NA" /> <code codeSystem="local" code="LYMPR" displayName= "Lymphocytes" /> <statusCode code="completed" /> < effectiveTime value="635971675920" /> <value unit="%" xsi:type="PQ " value="32" /> <referenceRange> <observationRange> <text>20-46</text> </observationRange> </ referenceRange> </observation> </component> <component> <observation moodCode="EVN" classCode="OBS"> <templateId root= "216.840.1.298729.10.20.22.4.2" /> <id nullFlavor="NA" /> < code codeSystem="local" code="MCH" displayName="MCH" /> <statusCode code="completed" /> <effectiveTime value="715532675750" /> < value unit="pg" xsi:type="PQ" value="29.9" /> <referenceRange> <observationRange> <text>27.0-32.0</text> </ observationRange> </referenceRange> </observation> </ component> <component> <observation moodCode="EVN" classCode="OBS"> <templateId root="216.840.1.275207.10.20.22.4.2" /> <id nullFlavor="NA" /> <code codeSystem="local" code="MCHC" displayName= "MCHC" /> <statusCode code="completed" /> <effectiveTime value ="700945787622" /> <value unit="g/dL" xsi:type="PQ" value="31.8" /> <interpretationCode codeSystem="local" code="*" /> < referenceRange> <observationRange> <text>32.0-36.0</text > </observationRange> </referenceRange> </observation > </component> <component> <observation moodCode="EVN" classCode="OBS"> <templateId root="16.840.1.624046.10..22.4.2" /> <id nullFlavor="NA" /> <code codeSystem="local" code="MCV" displayName="MCV" /> <statusCode code="completed" /> < effectiveTime value="292744344252" /> <value unit="fL" xsi:type="PQ" value="94.1" /> <referenceRange> <observationRange> <text>82.0-99.0</text> </observationRange> </ referenceRange> </observation> </component> <component> <observation moodCode="EVN" classCode="OBS"> <templateId root= "11.30.840.1.158771..22.4.2" /> <id nullFlavor="NA" /> < code codeSystem="local" code="MONOR" displayName="Monocytes" /> < statusCode code="completed" /> <effectiveTime value="824303978792" /> <value unit="%" xsi:type="PQ" value="7" /> <referenceRange > <observationRange> <text>4-11</text> </ observationRange> </referenceRange> </observation> </ component> <component> <observation moodCode="EVN" classCode="OBS"> <templateId root="11.30.840.1.239400.102022.4.2" /> <id nullFlavor="NA" /> <code codeSystem="local" code="MPV" displayName="MPV " /> <statusCode code="completed" /> <effectiveTime value= "985328024428" /> <value unit="fL" xsi:type="PQ" value="9.4" /> <referenceRange> <observationRange> <text>9.4-12.4</ text> </observationRange> </referenceRange> </ observation> </component> <component> <observation moodCode= "EVN" classCode="OBS"> <templateId root="216.840.1.947872.10.4.2 " /> <id nullFlavor="NA" /> <code codeSystem="local" code= "SEGR" displayName="Neutrophils" /> <statusCode code="completed" /> <effectiveTime value="" /> <value unit="%" xsi: type="PQ" value="56" /> <referenceRange> <observationRange> <text>51-75</text> </observationRange> </ referenceRange> </observation> </component> <component> <observation moodCode="EVN" classCode="OBS"> <templateId root= "216.840.1.090503.08.03.224.2" /> <id nullFlavor="NA" /> < code codeSystem="local" code="NRBCA" displayName="Nucleated RBC Automated" /> <statusCode code="completed" /> <effectiveTime value= "" /> <value unit="/100WBC" xsi:type="PQ" value="0.0" /> <referenceRange> <observationRange> <text /> </observationRange> </referenceRange> </observation> </component> <component> <observation moodCode="EVN" classCode= "OBS"> <templateId root="16.840.1.379389.10..4.2" /> < id nullFlavor="NA" /> <code codeSystem="local" code="PLT" displayName= "Platelet Count" /> <statusCode code="completed" /> < effectiveTime value="" /> <value unit="K/uL" xsi:type="PQ" value="290" /> <referenceRange> <observationRange> <text>150-400</text> </observationRange> </ referenceRange> </observation> </component> <component> <observation moodCode="EVN" classCode="OBS"> <templateId root= "216.840.1.514205.10.20.22.4.2" /> <id nullFlavor="NA" /> < code codeSystem="local" code="RBC" displayName="RBC" /> <statusCode code="completed" /> <effectiveTime value="301428673814" /> < value unit="10*6/uL" xsi:type="PQ" value="3.91" /> <interpretationCode codeSystem="local" code="*" /> <referenceRange> < observationRange> <text>4.00-5.20</text> </ observationRange> </referenceRange> </observation> </ component> <component> <observation moodCode="EVN" classCode="OBS"> <templateId root="11.30.840.1.661168.10.22.4.2" /> <id nullFlavor="NA" /> <code codeSystem="local" code="RDW" displayName="RDW " /> <statusCode code="completed" /> <effectiveTime value= "042812702624" /> <value unit="%" xsi:type="PQ" value="13.3" /> <referenceRange> <observationRange> <text>11.5- 14.5</text> </observationRange> </referenceRange> </ observation> </component> <component> <observation moodCode= "EVN" classCode="OBS"> <templateId root="16.840.1.732292.10.20.22.4.2 " /> <id nullFlavor="NA" /> <code codeSystem="local" code= "WBCIR" displayName="WBC" /> <statusCode code="completed" /> < effectiveTime value="732003700834" /> <value unit="K/uL" xsi:type="PQ" value="6.1" /> <referenceRange> <observationRange> <text>4.8-10.8</text> </observationRange> </ referenceRange> </observation> </component> </organizer> </entry > <entry> <organizer moodCode="EVN" classCode="BATTERY"> <templateId root="216.840.1.596466.10..22.4.1" /> <id nullFlavor="NA" /> <code codeSystem="local" code="BMP" displayName="Basic Metabolic Panel (BMP)" /> <statusCode code="completed" /> <component> <observation moodCode= "EVN" classCode="OBS"> <templateId root="216.840.1.733440.10..22.4.2 " /> <id nullFlavor="NA" /> <code codeSystem="local" code= "AGAP" displayName="Anion Gap" /> <statusCode code="completed" /> <effectiveTime value="897615660330" /> <value unit="mEq/L" xsi: type="PQ" value="8" /> <referenceRange> <observationRange> <text>3-20</text> </observationRange> </ referenceRange> </observation> </component> <component> <observation moodCode="EVN" classCode="OBS"> <templateId root= "16.840.1.664015.10.22.4.2" /> <id nullFlavor="NA" /> < code codeSystem="local" code="BUN" displayName="BUN" /> <statusCode code="completed" /> <effectiveTime value="396498483503" /> < value unit="mg/dL" xsi:type="PQ" value="12" /> <referenceRange> <observationRange> <text>4-20</text> </ observationRange> </referenceRange> </observation> </ component> <component> <observation moodCode="EVN" classCode="OBS"> <templateId root="216.840.1.641200...4.2" /> <id nullFlavor="NA" /> <code codeSystem="local" code="CA" displayName= "Calcium" /> <statusCode code="completed" /> <effectiveTime value="141739256644" /> <value unit="mg/dL" xsi:type="PQ" value="8.3" / > <interpretationCode codeSystem="local" code="*" /> < referenceRange> <observationRange> <text>8.6-10.0</text > </observationRange> </referenceRange> </observation > </component> <component> <observation moodCode="EVN" classCode="OBS"> <templateId root="11.30.840.1.127424.08.03.22.4.2" /> <id nullFlavor="NA" /> <code codeSystem="local" code="CL" displayName="Chloride" /> <statusCode code="completed" /> < effectiveTime value="921200084564" /> <value unit="mEq/L" xsi:type="PQ " value="104" /> <referenceRange> <observationRange> <text>99-109</text> </observationRange> </ referenceRange> </observation> </component> <component> <observation moodCode="EVN" classCode="OBS"> <templateId root= "11.30.840.1.199819...4.2" /> <id nullFlavor="NA" /> < code codeSystem="local" code="CO2" displayName="CO2" /> <statusCode code="completed" /> <effectiveTime value="047922268761" /> < value unit="mEq/L" xsi:type="PQ" value="26" /> <referenceRange> <observationRange> <text>22-32</text> </ observationRange> </referenceRange> </observation> </ component> <component> <observation moodCode="EVN" classCode="OBS"> <templateId root="216.840.1.429936.10...4.2" /> <id nullFlavor="NA" /> <code codeSystem="local" code="CREAT" displayName= "Creatinine" /> <statusCode code="completed" /> < effectiveTime value="962370101580" /> <value unit="mg/dL" xsi:type="PQ " value="0.58" /> <referenceRange> <observationRange> <text>0.44-1.03</text> </observationRange> </ referenceRange> </observation> </component> <component> <observation moodCode="EVN" classCode="OBS"> <templateId root= "216.840.1.174416.10...4.2" /> <id nullFlavor="NA" /> < code codeSystem="local" code="GLU" displayName="Glucose" /> < statusCode code="completed" /> <effectiveTime value="285148127128" /> <value unit="mg/dL" xsi:type="PQ" value="67" /> < interpretationCode codeSystem="local" code="*" /> <referenceRange> <observationRange> <text>70-100</text> </ observationRange> </referenceRange> </observation> </ component> <component> <observation moodCode="EVN" classCode="OBS"> <templateId root="840.1.675297.10.22.4.2" /> <id nullFlavor="NA" /> <code codeSystem="local" code="K" displayName= "Potassium" /> <statusCode code="completed" /> <effectiveTime value="962909688878" /> <value unit="mEq/L" xsi:type="PQ" value="3.9" / > <referenceRange> <observationRange> <text>3.6 -5.1</text> </observationRange> </referenceRange> </ observation> </component> <component> <observation moodCode= "EVN" classCode="OBS"> <templateId root="840.1.032886.08.03.22.4.2 " /> <id nullFlavor="NA" /> <code codeSystem="local" code="NA " displayName="Sodium" /> <statusCode code="completed" /> < effectiveTime value="586455233967" /> <value unit="mEq/L" xsi:type="PQ " value="138" /> <referenceRange> <observationRange> <text>136-144</text> </observationRange> </ referenceRange> </observation> </component> </organizer> </entry > <entry> <organizer moodCode="EVN" classCode="BATTERY"> <templateId root="840.1.776596.1022.4.1" /> <id nullFlavor="NA" /> <code codeSystem="local" code="GFR" displayName="eGFR" /> <statusCode code= "completed" /> <component> <observation moodCode="EVN" classCode= "OBS"> <templateId root="840.1.318473.1022.4.2" /> < id nullFlavor="NA" /> <code codeSystem="local" code="GFR" displayName= "eGFR" /> <statusCode code="completed" /> <effectiveTime value ="858531508061" /> <value unit="mL/min" xsi:type="PQ" value=">60" / > <referenceRange> <observationRange> <text>&gt ;60</text> </observationRange> </referenceRange> </ observation> </component> </organizer> </entry> <entry> <organizer moodCode="EVN" classCode="BATTERY"> <templateId root= "2.16.840.1.248070.10.20.22.4.1" /> <id nullFlavor="NA" /> <code codeSystem="local" code="GLUN" displayName="Glucose NPT" /> <statusCode code="completed" /> <component> <observation moodCode="EVN" classCode="OBS"> <templateId root="2.16.840.1.770784.10.20.22.4.2" /> <id nullFlavor="NA" /> <code codeSystem="local" code="GLUN" displayName="Glucose NPT" /> <statusCode code="completed" /> <effectiveTime value="384688365624" /> <value unit="mg/dL" xsi:type="PQ " value="99" /> <referenceRange> <observationRange> <text>70-100</text> </observationRange> </ referenceRange> </observation> </component> </organizer> </entry ></section> Encounters ACCT No. Visit Date/Time Discharge Status Pt. Type Provider Facility Loc./Unit Complaint [id number] 10/16/2017 23:32:00 10/17/2017 00:30:00 DIS Emergency [facility] W.EDS [id number] 06/11/2017 18:32:00 06/11/2017 21:45:00 DIS Emergency Tanja DODD, Odalis Vazquez [facility].JONG [id number] 06/08/2016 13:30:00 06/08/2016 13:30:00 CAN Outpatient Axel AUGUSTINE, Sae Matias [facility] W.PUMA [id number] 02/04/2016 14:29:00 02/04/2016 17:46:00 DIS [id number] 01/30/2016 21:33:00 01/30/2016 22:51:00 DIS Emergency Vishal DODD, [facility] [id number] 12/11/2015 15:28:00 12/11/2015 15:59:00 DIS [id number] 11/30/2015 23:10:00 12/01/2015 00:15:00 [id number]/14/2017 13:15:00 Document Registration [id number] 03/14/2017 00:00:00 Document Registration [id number] 10/06/2016 14:57:20 10/06/2016 23:59:59 [facility] Outpatient Yunior Velazquez [id number] 12/25/2017 05:16:39 Document Registration [id number] 12/22/2017 05:16:44 Document Registration [id number] 12/21/2017 05:16:13 Document Registration [id number] 12/20/2017 05:17:02 Document Registration [id number] 12/19/2017 05:17:18 Document Registration [id number] 12/16/2017 05:16:09 Document Registration [id number] 12/15/2017 20:05:00 Document Registration [id number] 02/09/2017 08:16:00 Document Registration [id number] 08/17/2016 17:31:00 Document Registration [id number] 08/16/2016 00:00:00 Document Registration [id number] 03/07/2016 21:42:00 Document Registration [id number] 02/29/2016 15:29:00 Document Registration [id number] 01/05/2018 15:04:00 ACT Document Registration [id number] 12/24/2017 00:00:00 12/24/2017 00:00:00 DIS Outpatient [id number] 01/04/2018 10:08:00 01/04/2018 12:30:00 DIS Emergency Magallanes [facility] ED abd pain [id number] 12/15/2017 20:05:00 12/15/2017 23:59:59 CLS Emergency Zarate Jacob [facility] ED chest pain, memory issues [id number] 11/21/2017 00:46:00 11/28/2017 17:20:00 DIS Inpatient Hernandez Rex [facility] J5IM SA, APAP tox, meth abuse [id number] 11/04/2017 02:42:00 11/04/2017 03:40:00 DIS Emergency Zac Tijerina [facility] ED SOA, ABD Pain [id number] 10/16/2017 22:17:00 10/17/2017 01:11:00 DIS Emergency Magallanes Howard [facility] ED abd pain [id number] 08/04/2017 18:35:00 08/05/2017 12:28:00 DIS Emergency Zarate Jacob [facility] ED abominal pain [id number] 08/03/2017 11:01:00 08/03/2017 14:17:00 DIS Emergency Zarate Jacob [facility] ED abd pain [id number] 06/11/2017 10:40:00 06/11/2017 23:59:59 CLS Emergency Zarate Jacob [facility] ED ABD PAIN [id number] 05/24/2017 09:18:00 05/24/2017 12:11:00 DIS Emergency Zarate Jacob [facility] ED n/v bodyaches, chills [id number] 02/09/2017 08:16:00 02/09/2017 13:41:00 DIS Emergency Bruey,, Madelin [facility] ED nausea, left sided abd pain [id number] 09/30/2016 01:15:00 09/30/2016 04:31:00 DIS Emergency Richar Pierce [facility] ED sore throat, left ear pain [id number] 08/17/2016 17:31:00 08/17/2016 19:42:00 DIS Emergency Zac Tijerina [facility] ED right side abd pain [id number] 08/16/2016 00:56:00 08/17/2016 12:59:00 DIS Outpatient Velazquez Jeremy [facility] J6E intractable abdominal pain [id number] 05/28/2016 20:19:00 05/28/2016 21:41:00 DIS Emergency Srivastava Mark [facility] on [facility] ED cough, SOA [id number] 03/20/2016 01:21:00 03/20/2016 23:59:59 CLS Emergency Skinner Matthew [facility] on [facility] ED abd pain, cramping [id number] 03/07/2016 21:42:00 03/08/2016 19:16:00 DIS Outpatient Jorge Brice [facility] [id number] Incomplete / dysfunctional bleeding [id number] 02/29/2016 23:47:00 03/01/2016 01:01:00 DIS Emergency Srivastava Mark [facility] on [facility] ED vaginal bleeding [id number] 02/28/2016 20:08:00 02/28/2016 22:19:00 DIS Emergency Srivastava Mark [facility] on [facility] ED vag bleeding, 8 wks [id number] 02/18/2016 13:47:00 02/18/2016 17:14:00 DIS Emergency Richar Pierce [facility] on [facility] ED Possible miscarriage [id number] 01/25/2016 20:48:00 01/25/2016 23:09:00 DIS Emergency José Magallanes MD [facility] ED CONGESTION, COUGH [id number] 11/25/2015 13:12:00 11/25/2015 13:52:00 DIS Emergency Elpidio DODD, José Barajas [facility] on [facility] ED sore throt [id number] 10/27/2015 12:04:00 10/27/2015 13:55:00 DIS Emergency Richar Pierce [facility] on [facility] ED SOA possible reaction to meds [id number] 06/10/2015 10:24:00 06/10/2015 12:25:00 DIS Emergency Rodolfo DODD, Navin Pineda [facility] on [facility] ED N/V [id number] 05/02/2015 12:45:00 05/02/2015 17:15:00 DIS Emergency José Magallanes MD [facility] on [facility] ED sore throat, AGUILERA [id number] 01/05/2018 05:16:58 Document Registration [id number] 11/29/2017 05:16:48 Document Registration [id number] 11/27/2017 05:17:01 Document Registration [id number] 11/26/2017 05:15:46 Document Registration [id number] 11/24/2017 05:16:54 Document Registration [id number] 11/23/2017 05:16:49 Document Registration [id number] 11/22/2017 05:16:43 Document Registration [id number] 11/21/2017 05:17:23 Document Registration [id number] 08/06/2017 05:16:01 Document Registration [id number] 08/05/2017 05:16:09 Document Registration [id number] 08/05/2017 05:16:08 Document Registration [id number] 08/04/2017 05:17:00 Document Registration [id number] 08/04/2017 05:16:59 Document Registration [id number] 05/25/2017 05:16:24 Document Registration [id number] 05/25/2017 05:16:23 Document Registration [id number] 02/10/2017 05:16:11 Document Registration [id number] 10/01/2016 05:15:23 Document Registration [id number] 09/30/2016 05:15:40 Document Registration [id number] 08/18/2016 05:17:33 Document Registration [id number] 08/17/2016 05:17:15 Document Registration [id number] 08/16/2016 05:17:13 Document Registration [id number] 05/29/2016 05:15:17 Document Registration [id number] 03/21/2016 05:15:44 Document Registration [id number] 03/09/2016 05:15:51 Document Registration [id number] 03/08/2016 05:16:38 Document Registration [id number] 03/01/2016 05:16:45 Document Registration [id number] 02/19/2016 05:16:30 Document Registration [id number] 01/26/2016 05:16:48 Document Registration [id number] 11/26/2015 05:16:00 Document Registration [id number] 10/28/2015 05:16:07 Document Registration [id number] 10/23/2015 05:16:33 Document Registration [id number] 10/23/2015 00:22:00 Document Registration [id number] 08/04/2015 13:35:28 Document Registration [id number] 08/04/2015 13:04:37 Document Registration [id number] 08/04/2015 11:33:05 Document Registration
[2018-03-26] MEDS ORDERED: ACETAMINOPHEN 500 MG TAB (TYLENOL) PO PRN (06:00)
[2018-03-26] MEDS: ONDANSETRON 4 MG/2 ML (SDV) Z0FRAN IV PRN ×2 (06:53→21:04)
--- NOTE | 2018-03-26 07:35 | Short Stay Summary-Hospitalist ---
History of Present Illness HPI/Chief Complaint Pt is [id number] who presented to the ER after a suicide attempt. She states that she recently moved her to start her life over but had been feeling very hopeless and last night things got worse so she took an entire bottle of Buspar and 10 tablets of Trileptal in an attempt to end her life. She states she still feels suicidal now and would consider attempting suicide again. She has had attempts in the past and was treated at inpatient [facility] in [place] around 4 months ago. She denies any psychiatric history but does state she is on Trileptal to "stabilize her mood." Her only other complaint is that she is hungry. Source: patient Exam Limitations: no limitations Date Seen 03/26/18 Time Seen by Provider: 07:31 Attending Physician Glenn Raza MD PCP No,Local Physician Referring Physician Date of Admission Mar 26, 2018 at 12:50 am Home Medications & Allergies Home Medications Reviewed patient Home Medication Reconciliation performed by pharmacy medication reconciliations pharmacy laboratory technician and/or nursing. Patients Allergies have been reviewed. Allergies Allergies Coded Allergies divalproex sodium (Verified Allergy, Unknown, 07/06/08) penicillin G (Verified Allergy, Unknown, 07/06/08) Past Jwdullv-Yuqasd-Xkbjvz Hx Past Med/Social Hx: Reviewed Nursing Past Med/Soc Hx, Reviewed and Corrections made Patient Social History Alcohol Use: Denies Use Recreational Drug Use: Yes Drug of Choice: THC Smoking Status: Current Everyday Smoker Cigaretts per day: 20 Type Used: Cigarettes Physical Abuse Screen: No Sexual Abuse: No Recent Foreign Travel: No Contact w/other who traveled: No Recent Hopitalizations: No Recent Infectious Disease Expo: No Immunizations Up To Date Pediatric: No Seasonal Allergies Seasonal Allergies: No Past Medical History Surgeries: Gallbladder Currently Using CPAP: No Currently Using BIPAP: No Cardiac: Heart Murmur : No Sexually Transmitted Disease: Yes (HPV) HIV/AIDS: No Female Reproductive Disorders: Denies Loss of Vision: Denies Hearing Impairment: Denies Psychosocial: Anxiety, PTSD, Suicide Attempts, Bipolar History of Blood Disorders: No Adverse Reaction to Blood Díaz: No Family History Reviewed Nursing Family Hx Does not know biological family- grew up in foster care Review of Systems Constitutional: No chills, No fever EENTM: No blurred vision, No double vision, No nose congestion, No throat pain Respiratory: No cough, No dyspnea on exertion, No short of breath Cardiovascular: No chest pain, No edema, No palpitations Gastrointestinal: abdominal pain ("hunger pains"); No constipation, No diarrhea ; nausea; No vomiting Genitourinary: No discharge, No dysuria, No frequency Musculoskeletal: No joint pain, No muscle pain Skin: No lesions, No rash Psychiatric/Neurological: Denies Headache, Denies Numbness, Denies Tingling Physical Exam Physical Exam Vital Signs Vital Signs - First Documented 03/26/18 03/26/18 00:36 02:09 Temp 97.8 Pulse 72 Resp 18 B/P (MAP) 130/89 (103) Pulse Ox 99 O2 Delivery Room Air Capillary Refill : Less Than 3 Seconds General Appearance: No Apparent Distress, WD/WN HEENT: PERRL/EOMI, Moist Mucous Membranes Neck: Non Tender, Supple Respiratory: Lungs Clear, No Respiratory Distress Cardiovascular: Regular Rate, Rhythm, No Murmur Gastrointestinal: Normal Bowel Sounds, Non Tender, Soft Extremity: Normal Capillary Refill, No Calf Tenderness Neurologic/Psychiatric: Alert, Oriented x3, No Motor/Sensory Deficits, Depressed Affect Skin: Normal Color, Warm/Dry Results Results/Procedures Labs Laboratory Tests 03/26/18 00:50 Patient resulted labs reviewed. Short Stay Diagnosis Discharge Diagnosis-Short Stay Admission Diagnosis Suicide Attempt Final Discharge Diagnosis Suicide Attempt Conclusion Plan See Plan Diagnosis/Problems Diagnosis/Problems (1) Suicide attempt Status: Acute Assessment & Plan: Patient has signed safety contract but still endorses suicidal ideation Has history of previous attempts [facility] Save Line contacted, appreciate assistance Will likely need placement (2) Overdose of antidepressant Status: Acute Assessment & Plan: Poison control contacted by ER Recommended 6 hours observation which she has completed Medical Stable for transfer to Inpatient Psych Qualifiers: Qualified Codes: T43.202A - Poisoning by unspecified antidepressants, intentional self-harm, initial encounter (3) Overdose of anticonvulsant Status: Acute Assessment & Plan: Poison control contacted Medically stable for transfer Qualifiers: Qualified Codes: T42.72XA - Poisoning by unspecified antiepileptic and sedative-hypnotic drugs, intentional self-harm, initial encounter (4) Trichomonas vaginalis (TV) infection Status: Acute Assessment & Plan: Will treat prior to DC with Flagyl Clinical Quality Measures DVT/VTE Risk/Contraindication: Risk Factor Score Per Nursin RFS Level Per Nursing on Admit: 2=Moderate SERA RENE MD Mar 26, 2018 7:35 am
[2018-03-26] MEDS ORDERED: PROMETHAZINE INJ 25 MG/ML (PHENERGAN) AMP IVP PRN (08:00)
[2018-03-26] MEDS ORDERED: metroNIDAZOLE 500 MG (FLAGYL) TAB PO NR (09:00)
[2018-03-26] MEDS ORDERED: HALOPERIDOL 5 MG/ML (HALDOL) AMP IM PRN (18:45)
[2018-03-26] MEDS ORDERED: CATHETER FLUSH 10 ML SYR IV PRN (19:00)
[2018-03-26] MEDS ORDERED: LORazepam 1 MG (ATIVAN) TAB PO PRN (19:30)
[2018-03-26] MEDS ORDERED: LORazepam 1 MG (ATIVAN) TAB ONE (19:31)
[2018-03-26] MEDS ORDERED: ONDANSETRON 4 MG (ZOFRAN) ORAL DISSOLVE TAB PO PRN (21:45)
[2018-03-26] MEDS ORDERED: HALOPERIDOL 5 MG/ML (HALDOL) AMP IM/IV PRN (22:45)
[2018-03-27] VITALS (10 sets, daily range): BP systolic 91–104; BP diastolic 52–76
--- NOTE | 2018-03-27 11:18 | Progress Note-Hospitalist ---
Subjective HPI/CC On Admission Date Seen by Provider: Mar 27, 2018 Time Seen by Provider: 11:13 Pt is [id number] who presented to the ER after a suicide attempt. She states that she recently moved her to start her life over but had been feeling very hopeless and last night things got worse so she took an entire bottle of Buspar and 10 tablets of Trileptal in an attempt to end her life. She states she still feels suicidal now and would consider attempting suicide again. She has had attempts in the past and was treated at inpatient [facility] in [place] around 4 months ago. She denies any psychiatric history but does state she is on Trileptal to "stabilize her mood." Her only other complaint is that she is hungry. Subjective/Events-last exam Pt refused transport last night when they arrived after she was accepted at [facility]. She states she "just didn't want to go." She denies any complaints at this time. She was kept in observation overnight and the Save Line was contacted for involuntary placement as she was still suicidal. Objective Exam Vital Signs Vital Signs Date Time Temp Pulse Resp B/P (MAP) Pulse Ox O2 Delivery O2 Flow Rate FiO2 03/27/18 09:00 70 18 102/56 (71) 98 Room Air 03/27/18 08:00 97.7 Capillary Refill : Less Than 3 Seconds General Appearance: No Apparent Distress, WD/WN Respiratory: Lungs Clear, No Respiratory Distress Cardiovascular: Regular Rate, Rhythm, No Murmur Gastrointestinal: Normal Bowel Sounds, Non Tender, Soft Extremity: No Calf Tenderness, No Pedal Edema Neurologic/Psychiatric: Alert, Oriented x3, Depressed Affect Results/Procedures Lab Patient resulted labs reviewed. Assessment/Plan Assessment and Plan Assess & Plan/Chief Complaint See Plan Diagnosis/Problems Diagnosis/Problems (1) Suicide attempt Status: Acute Assessment & Plan: Patient has signed safety contract but still endorses suicidal ideation Has history of previous attempts [facility] Save Line contacted, appreciate assistance Had placement for voluntary admission last night but refused Save Line assisting with involuntary placement at this time Medically stable for DC to inpatient [facility] when bed available. (2) Overdose of antidepressant Status: Acute Assessment & Plan: Poison control contacted by ER on arrival Recommended 6 hours observation which she has completed Medical Stable for transfer to Inpatient Psych Qualifiers: Encounter type: initial encounter Injury intent: intentional self-harm Qualified Codes: T43.202A - Poisoning by unspecified antidepressants, intentional self-harm, initial encounter (3) Overdose of anticonvulsant Status: Acute Assessment & Plan: Poison control contacted Medically stable for transfer Qualifiers: Encounter type: initial encounter Injury intent: intentional self-harm Qualified Codes: T42.72XA - Poisoning by unspecified antiepileptic and sedative -hypnotic drugs, intentional self-harm, initial encounter (4) Trichomonas vaginalis (TV) infection Status: Acute Assessment & Plan: Received 2g Flagyl yesterday Clinical Quality Measures DVT/VTE Risk/Contraindication: Risk Factor Score Per Nursin RFS Level Per Nursing on Admit: 2=Moderate SERA RENE MD Mar 27, 2018 11:18 am
== END 2018-03-27 13:26 ==
LOC: EDUNIT# 00:22 → ER 00:27 → UNDOADMOB 00:50 → ICU 00:50
PROVIDERS: ADMIT Internal Medicine; ATTEND Internal Medicine
DX: T43.202A Poisoning by unspecified antidepressants, intentional self-harm, initial encounter (principal); T42.72XA Poisoning by unspecified antiepileptic and sedative-hypnotic drugs, intentional self-harm, initial encounter; A59.01 Trichomonal vulvovaginitis; F31.9 Bipolar disorder, unspecified; F43.10 Post-traumatic stress disorder, unspecified; F41.9 Anxiety disorder, unspecified; F17.210 Nicotine dependence, cigarettes, uncomplicated
CPT/HCPCS: 36415; 80053; 80306; 80320; 80329; 81000; 84443; 84703; 85025; 87081; 87088; 93005; 96374; 96376; G0378

== ENCOUNTER 2018-05-08 13:29 | Emergency (ER) | payer SELFPAY ==
[~2018-05-08] VITALS: Ht 177.8 cm; Wt 95.3 kg
--- OUTSIDE RECORDS SUMMARY | 2018-05-08 13:39 | XMS REPORT | Referral Summary ---
Author Organization Unknown Address Unknown Phone Unavailable Encounter [facility] [id number] Date(s): 12/22/14 - 12/22/14 [facility] [address] [place] [address] [phone] Discharge Diagnosis: Acute urticaria Final: UNSPECIFIED URTICARIA Discharge Disposition: Home or Self Care Attending Physician: Zac Rodgers MD Admitting Physician: Zac Rodgers MD Vital Signs Most recent to 1 2 oldest [Reference Range]: Temperature Oral 36.5 degC [35.8-37.3 degC] (12/22/14 11:06 AM) Peripheral Pulse 88 bpm 88 bpm Rate [60-100 bpm] (12/22/14 12:03 PM) (12/22/14 12:03 PM) Respiratory Rate 16 br/min 16 br/min [14-20 br/min] (12/22/14 12:03 PM) (12/22/14 12:03 PM) Blood Pressure 122/74 mmHg [90-140/60-90 mmHg] (12/22/14 12:03 PM) Systolic Blood 124 mmHg Pressure [90-140 (12/22/14 12:03 PM) mmHg] Diastolic Blood 70 mmHg Pressure [60-90 (12/22/14 12:03 PM) mmHg] Most recent to 1 2 oldest [Reference Range]: SpO2 99 % 98 % (12/22/14 12:03 PM) (12/22/14 12:03 PM) Problem List Condition Effective Dates Status Health Status Informant Asthma(Confirmed) Active Bipolar disease, Active chronic(Confirmed) Borderline Active personality disorder(Confirmed) Depression(Confirmed Active ) Hypothyroidism(Confi Active rmed) Post traumatic Active stress disorder (PTSD)(Confirmed) Tobacco Active patient user(Confirmed) Allergies, Adverse Reactions, Alerts Substance Reaction Severity Status Depakote ER Active penicillin Active Medications BuSpar Oral, TID, 0 Refill(s) Start Date: 12/22/14 Status: Ordered calcium citrate Oral, BID, 0 Refill(s) Start Date: 12/22/14 Status: Ordered Depakote Oral, TID, 0 Refill(s) Start Date: 12/22/14 Status: Ordered doxepin 3 mg oral tablet tabs, Oral, Bedtime (once a day), 0 Refill(s) Start Date: 12/22/14 Status: Ordered Haldol Decanoate IntraMuscular, q4wk, 0 Refill(s) Start Date: 12/22/14 Status: Ordered hydrochlorothiazide Oral, Daily, 0 Refill(s) Start Date: 12/22/14 Status: Ordered levothyroxine Daily, 0 Refill(s) Start Date: 12/22/14 Status: Ordered SEROquel Oral, 0 Refill(s) Start Date: 12/22/14 Status: Ordered Results No data available for this section Immunizations No data available for this section Procedures No data available for this section Social History Social History Type Response Smoking Status Current every day smoker; Type: Cigarettes Assessment and Plan No data available for this section
--- NOTE | 2018-05-08 13:46 | ED Integumentary General ---
General Stated Complaint: RIGHT FINGER LACERATION History of Present Illness Date Seen by Provider: May 08, 2018 Time Seen by Provider: 13:41 Initial Comments Patient is a 28-year-old female who presents to the emergency room with complaints of laceration to her right middle finger. She reports that she was cleaning and reached underneath her sofa and cut her finger on a box knife that had been left out. Timing/Duration: just prior to arrival Associated Symptoms: denies symptoms Allergies and Home Medications Allergies Coded Allergies: penicillin G (Verified Allergy, Severe, Throat Swelling, 03/26/18) divalproex sodium (Verified Allergy, Unknown, Vomiting, 03/26/18) Home Medications No Active Prescriptions or Reported Meds Patient Home Medication List Home Medication List Reviewed: Yes Constitutional: see HPI; No chills, No diaphoresis Skin: see HPI, other (right third finger laceration) All Other Systems Reviewed Negative Unless Noted: Yes Past Jjazqtv-Vbvbdy-Ajikpt Hx Past Med/Social Hx: Reviewed Nursing Past Med/Soc Hx Patient Social History Drug of Choice: THC Type Used: Cigarettes Recent Foreign Travel: No Contact w/Someone Who Travel: No Recent Hopitalizations: No Immunizations Up To Date PED Vaccines UTD: No Seasonal Allergies Seasonal Allergies: No Past Medical History Surgeries: Yes Gallbladder Respiratory: Yes Asthma Currently Using CPAP: No Currently Using BIPAP: No Cardiac: Yes Heart Murmur Neurological: No Female Reproductive Disorders: Denies Sexually Transmitted Disease: Yes (HPV) HIV/AIDS: No Genitourinary: No Gastrointestinal: No Musculoskeletal: No Endocrine: No HEENT: No Loss of Vision: Denies Hearing Impairment: Denies Cancer: No Psychosocial: Yes Anxiety, PTSD, Suicide Attempts, Bipolar Integumentary: No Blood Disorders: No Adverse Reaction/Blood Tranf: No Family Medical History Reviewed Nursing Family Hx Does not know biological family- grew up in foster care Physical Exam Vital Signs Vital Signs - First Documented 05/08/18 13:33 Temp 97.4 Pulse 89 Resp 16 B/P (MAP) 107/84 (92) Pulse Ox 98 O2 Delivery Room Air Capillary Refill : General Appearance: WD/WN, no apparent distress Cardiovascular: regular rate, rhythm, no edema, no gallop, no JVD, no murmur Respiratory: chest non-tender, lungs clear, normal breath sounds, no respiratory distress, no accessory muscle use Skin: normal color, warm/dry, other (there is a 0.5 cm superficial laceration to the right third finger on the left lateral side just beside the fingernail. Bleeding is controlled. The wound is well approximated and superficial.) Procedures/Interventions Wound Location: Upper Extremities Other Wound Location Right third finger left lateral side just beside the fingernail. Wound's Depth, Shape: superficial, linear Wound Explored: clean Irrigated w/ Saline (ccs): 50 Betadine Prep?: Yes Other Closure Supply: Wound Adhesive Progress The wound was cleaned and irrigated with normal saline and Betasept. A finger tourniquet was applied. Skin glue was applied to close the wound. Finger tourniquet was removed bleeding was controlled. Progress/Results/Core Measures Results/Orders My Orders Orders - BERNOT,BUTCH Dipht,Pertuss(Acell),Tet Adult (Boostrix (05/08/18 14:00) Medications Given in ED Current Medications Medications Dose Ordered Sig/Sandrita Route Start Time Stop Time Status Last Admin Dose Admin Diphtheria/ Tetanus/Acell Pertussis 0.5 ml ONCE ONCE IM 05/08/18 14:00 05/08/18 14:01 DC 05/08/18 14:06 0.5 ML Vital Signs/I&O 05/08/18 13:33 Temp 97.4 Pulse 89 Resp 16 B/P (MAP) 107/84 (92) Pulse Ox 98 O2 Delivery Room Air Progress Progress Note : Progress Note The patient was updated on her tetanus vaccine at this visit. She was instructed for return precautions, follow-up with a primary care physician for any other concerns as needed or return back to emergency room. Departure Impression Primary Impression: Laceration Disposition: 01 HOME, SELF-CARE Condition: Stable/Unchanged Departure-Patient Inst. Decision time for Depature: 13:43 Referrals: NO,LOCAL PHYSICIAN (PCP) Primary Care Physician Patient Instructions: LOCAL PHYSICIAN LIST, Laceration Repair With Glue (DC) Add. Discharge Instructions: Let the glue fall off on its own. Do not use any lotions or creams to the area as this will cause the glue to breakdown reports ready to come off. Watch for signs of infection such as increased pain, redness, streaking, drainage. Follow up with your doctor within 1 week for recheck. Return back to the emergency room for any worsening symptoms or any concerns as needed. Scripts No Active Prescriptions or Reported Meds BUTCH LOTT May 08, 2018 13:46
[2018-05-08] MEDS ORDERED: TETANUS,DIPTH,PERTUSS P/F (BOOSTRIX) 0.5 ML VIAL IM ONE (14:00)
[2018-05-08 14:11] VITALS: BP 107/84
== END 2018-05-08 14:12 | disposition home or self-care (01) ==
LOC: EDUNIT# 13:29 → ER 13:31
DX: S61.212A Laceration without foreign body of right middle finger without damage to nail, initial encounter (principal); F43.10 Post-traumatic stress disorder, unspecified; F41.9 Anxiety disorder, unspecified; F31.9 Bipolar disorder, unspecified; J45.909 Unspecified asthma, uncomplicated; Z91.5 Personal history of self-harm; Z23 Encounter for immunization; Z86.19 Personal history of other infectious and parasitic diseases; Z88.0 Allergy status to penicillin; Z88.8 Allergy status to other drugs, medicaments and biological substances; W27.8XXA Contact with other nonpowered hand tool, initial encounter
CPT/HCPCS: 12041; 90471; 90715

== ENCOUNTER 2018-07-16 05:01 | Emergency (ER) | payer SELFPAY ==
[~2018-07-16] VITALS: Ht 177.8 cm; Wt 95.4 kg
[~2018-07-16 05:01] MED LIST changes: +WATER (STERILE) FOR INJECTION 20 ML ONE; +ZIPRASIDONE 20 MG INJ (GEODON) VIAL IM ONE
--- OUTSIDE RECORDS SUMMARY | 2018-07-16 05:09 | XMS REPORT ---
Author Author ELIJAHЕЛЕНАHEATHER [facility] Address Unknown Care Team Providers Care Director Data Analytics Name Role Phone HEATHER ARGUETA Unavailable PROBLEMS Unknown Problems ALLERGIES Substance Reaction Event Type Date Status Penicillin V Potassium Unknown Drug Allergy May, Active Depakote Unknown Drug Allergy May, Active ENCOUNTERS Encounter Location Date Diagnosis [facility] [id number] [place] [id number] May, Dental examination Z01.20 [facility] [id number] [place] [phone]- [phone] Sep, [facility] [id number] [place] [phone] Aug, [facility] [id number] [place] [address] [phone]- [phone] Aug, [facility] [id number] [place] [address] [phone]- [phone] Aug, [facility] [id number] [place] [address] [phone]- [phone] Aug, [facility] [id number] [place] [address] [phone]- [phone] Aug, [facility] [id number] [place] [address] [phone]- [phone] Aug, [facility] [id number] [place] [address] [phone]- [phone] Aug, [facility] [id number] [place] [address] 82626- [phone] Aug, [facility] [id number] [place] [phone]- [phone] Jul, [facility] [address] [address] Sep, [facility] [address] [place] [address] Aug, [facility] [address] [address] Aug, [facility] [address] [facility] [id number] [place] [phone]- [phone] Aug, [facility] [address] [place] [address] Aug, [facility] [id number] [place] [address] 14491- 5836 Aug, [facility] [id number] [place] [address] [phone]- 0655 Aug, [facility] [id number] [place] [address] 80594- [phone] Jul, [facility] [id number] [place] [address] [phone]- [address]108 Jul, [facility] [address] [address] Jun, [facility] [address] [address] Mar, [facility] [address] [address] Aug, IMMUNIZATIONS No Known Immunizations SOCIAL HISTORY Never Assessed REASON FOR VISIT DEVON PLAN OF CARE Activity Details Follow Up prn Reason:Pt. was referred to [facility] Blood pressure systolic 99 mmHg 2018-05-15 Blood pressure diastolic 48 mmHg 2018-05-15 MEDICATIONS Medication Instructions Dosage Frequency Start Date End Date Duration Status Clindamycin HCl 150 MG Orally every 6 hrs 2 capsules 6h 7 days Active Iron Active RESULTS No Results PROCEDURES Procedure Date Ordered Result Body Site LTD ORAL EVALUATION - PROBLEM FOCUS May 15, 2018 PANORAMIC FILM SEE ALSO CODE [id number] May 15, 2018 INSTRUCTIONS MEDICATIONS ADMINISTERED No Known Medications MEDICAL (GENERAL) HISTORY Type Description Date Medical History anemia Medical History LBP Medical History Heart Murmur Medical History Asthma Medical History thyroid problems Medical History hemophillic Medical History hypoglycemic Medical History arthritis Medical History eczema Medical History scoloisis Surgical History gallbladder removed Hospitalization History suicide attempt March
[2018-07-16] MEDS ORDERED: ALPRAZolam 0.5 MG (XANAX) TAB PO STA (05:14)
--- OUTSIDE RECORDS SUMMARY | 2018-07-16 05:14 | XMS REPORT | Continuity of Care Document ---
Author Author [facility] Address Unknown Phone Unavailable Allergies Active Description Code Type Severity Reaction Onset Reported/Identified Relationship to Patient Clinical Status Yes divalproex sodium [id number] Drug Allergy Unknown N/A 07/06/2008 Yes penicillin G [id number] Drug Allergy Unknown N/A 07/06/2008 Yes Depakote ER NKMA N/A N/A 12/22/2014 Yes penicillin NKMA N/A N/A 12/22/2014 Yes Depakote - Oral Medication MED N/A N/A 12/28/2014 Yes Penicillins - CLASS Class MED N /A N/A 12/28/2014 Yes Depakote ER NKMA Medium [id number] 05/02/2015 Yes penicillin NKMA Severe 784.2 05/02/2015 Yes No Known Allergies No Known Allergies Drug Allergy Unknown N/A 2015 Yes Latex 403 N/A N/A 02/28/2016 Yes divalproex sodium divalproex sodium Drug Allergy Mild VOMITING 06/11/2017 Yes Penicillins Penicillins Drug Allergy Unknown THROAT SWELLING 06/11/2017 Yes latex latex Drug Allergy Unknown HIVES 10/17/2017 Yes penicillin G [id number] Drug Allergy Severe Throat Swelling 03/26/2018 Yes divalproex sodium [id number] Drug Allergy Unknown Vomiting 03/26/2018 Medications Medication Packaging Start Date Stop Date [...] 0.5MG Take one tablet TID PRN for anxiety.[id number] 5 mg BID dose predniSONE(predniSONE) 1 tabs [...] MG Oral Tablet Extended Release 24 Hour 12/15/2015 03/15/2016 ORAL 150MG Take one tablet Am with 300 mg dose TraZODone HCl 150 MG Oral Tablet 12/15/2015 03/15/2016 ORAL 150MG TAKE 1/2 TABLET AT BEDTIME. BuPROPion HCl ER (XL) 300 MG Oral Tablet Extended Release 24 Hour 12/15/2015 03/15/2016 ORAL 300MG TAKE 1 TABLET EVERY MORNING. ROPINIRole HCl 0.25 MG Oral Tablet 12/15/2015 03/15/2016 ORAL 0.25MG Take two tabs HS Haloperidol 5 MG Oral Tablet 11/201503/15/2016 ORAL 5MG TAKE 1 TABLET TWICE DAILY. Dequincy Carbonate 300 MG Oral Capsule 01/10/2016 03/11/2016 ORAL 300MG TAKE 1 CAPSULE [...] mg=2 mL, IV Push, q6hr, PRN: Nausea HYDROcodone-acetaminophen(Saluda 5 mg-325 mg oral tablet) 1 tabs [...] Once TraZODone HCl 150 MG Oral Tablet UD 03/30/2016 06/01/2016 ORAL 150MG TAKE 1/2 TABLET AT BEDTIME. Dequincy Carbonate 300 MG Oral Capsule 03/30/2016 05/30/2016 ORAL 300MG TAKE 1 CAPSULE TWICE DAILY. ROPINIRole HCl 0.25 MG Oral Tablet UD 03/30/2016 06/01/2016 ORAL 0.25MG Take two tabs HS BuPROPion HCl ER (XL) 300 MG Oral Tablet Extended Release 24 Hour UD 03/30/2016 06/01/2016 ORAL 300MG TAKE 1 TABLET [...] ORAL 150MG TAKE 1/2 TABLET AT BEDTIME. Dequincy Carbonate 300 MG Oral Capsule 05/31/2016 07/01/2016 [...] ORAL 150MG TAKE 1/2 TABLET AT BEDTIME. Dequincy Carbonate 300 MG Oral Capsule 07/31/2016 10/30/2016 ORAL 300MG TAKE 1 CAPSULE TWICE DAILY. ROPINIRole HCl 0.25 MG Oral Tablet 07/31/2016 10/30/2016 ORAL 0.25MG Take two tabs HS BuPROPion HCl ER (XL) 300 MG Oral Tablet Extended Release 24 Hour 07/31/2016 10/30/2016 ORAL 300MG TAKE 1 TABLET EVERY MORNING. BuPROPion HCl ER (XL) 150 MG Oral Tablet Extended Release 24 Hour 07/31/2016 10/30/2016 ORAL 150MG Take one tablet Am with 300 mg dose Haloperidol 10 MG Oral Tablet 10/30/2016 ORAL 10MG TAKE 1 TABLET AT BEDTIME. Venlafaxine HCl ER 150 MG Oral Capsule Extended Release 24 Hour 07/31/2016 10/30/2016 ORAL 150MG TAKE 1 CAPSULE [...] SUP/José Magallanes MD., 14 caps, 0 Refill(s) OXcarbazepine 300 MG Oral Tablet UD 02/27/2018 03/30/2018 ORAL 300MG TAKE 1 TABLET TWICE DAILY. Problems Date Dx Coded Attending Type Code Diagnosis Diagnosed By 05/04/2015 José Magallanes MD Final 305.1 TOBACCO USE DISORDER 05/04/2015 José Magallanes MD Reason 462 ACUTE PHARYNGITIS 05/04/2015 José Magallanes MD Final 466.0 ACUTE BRONCHITIS 06/11/2015 Navin Reynolds MD Final 305.1 TOBACCO USE DISORDER 06/11/2015 Navin Reynolds MD Reason 787.01 NAUSEA WITH VOMITING 07/28/2015 F E03.9 Hypothyroidism , unspecified Rosie Hernandez 09/30/2015 F F31.5 Bipolar disorder, current episode depressed, severe, with psychotic features Dianne Riggs 09/30/2015 F F41.9 Anxiety disorder, unspecified Dianne Riggs 09/30/2015 F F43.10 Post- traumatic stress disorder, [...] Main 12/15/2015 F F41.9 Anxiety disorder, unspecified Jose David, Lidia M 12/15/2015 F F43.10 Post- traumatic stress disorder, unspecified West, Lidia M 12/15/2015 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 Lidia Main 12/15/2015 F F41.9 Anxiety disorder, unspecified 12/15/2015 [...] Post- traumatic stress disorder, unspecified Anju, Aliza Ayalaelle 01/14/2016 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 Anju, Aliza Ayalaelle 01/14/2016 F F41.9 Anxiety disorder, unspecified 01/14/2016 [...] unspecified 01/28/2016 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 02/01/2016 José Magallanes MD Final F17.210 Nicotine dependence, cigarettes, uncomplicated 02/01/2016 José Magallanes MD Final J06.9 Acute upper respiratory infection, unspecified 02/01/2016 José Magallanes MD Final J40 Bronchitis, not specified as acute or chronic 02/01/2016 José Magallanes MD Reason R05 Cough 02/07/2016 F F31.5 Bipolar disorder, current episode depressed, severe, with psychotic features 02/07/2016 F F41.9 Anxiety disorder, unspecified 02/07/2016 F F43.10 Post- traumatic stress disorder, unspecified 02/08/2016 F F31.5 Bipolar disorder, current episode depressed, severe, with psychotic features 02/08/2016 F F31.5 Bipolar disorder, current episode depressed, severe, with psychotic features Rosie Hernandez 02/08/2016 F F41.9 Anxiety disorder, unspecified David, Rosie A 02/08/2016 F F43.10 Post- traumatic stress disorder, unspecified David, Rosie A 02/08/2016 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 David, Rosie A 02/08/2016 F I10 Essential ( primary) hypertension Rosie Hernnadez A 02/09/2016 F F31.5 Bipolar disorder, current episode depressed, severe, with psychotic features Delatorre, Marilyn 02/09/2016 F F41.9 Anxiety disorder, [...] Final F17.210 Nicotine dependence, cigarettes, uncomplicated 03/03/2016 Srivastava Stevie Final J45.909 Unspecified asthma, uncomplicated 03/03/2016 Srivastava Stevie Final O20.0 Threatened 03/03/2016 Srivastava Stevie Reason O26.851 Spotting complicating , first trimester 03/03/2016 Srivastava Mark Final O99.331 Smoking (tobacco) complicating , first trimester 03/03/2016 Srivastava Stevie Final O99.511 Diseases of the respiratory system complicating , first trimester 03/03/2016 Srivastava Mark Final Z3A.08 8 weeks gestation of 03/06/2016 Srivastava Stevie Final F17.210 Nicotine dependence, cigarettes, uncomplicated 03/06/2016 Srivastava Stevie Final J45.909 Unspecified asthma, uncomplicated 03/06/2016 Srivastava Stevie Final O03.9 Complete or unspecified spontaneous without complication 03/06/2016 Srivastava Stevie Reason O26.851 Spotting complicating , first trimester 03/06/2016 Srivastava Stevie Final O99.331 Smoking (tobacco) complicating , first trimester 03/06/2016 Srivastava Stevie Final O99.511 Diseases of the respiratory system complicating , first trimester 03/06/2016 Srivastava Stevie Final Z3A.08 8 weeks gestation [...] A 03/06/2016 F F41.9 Anxiety disorder, unspecified Sakina-Sahni, Rosie A 03/06/2016 F F43.10 Post- traumatic stress disorder, unspecified Sakina-Sahni, Rosie A 03/06/2016 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 David, Rosie A 03/06/2016 F I10 Essential ( primary) hypertension David, Rosie A 03/14/2016 F F31.5 Bipolar disorder, current episode depressed, severe, with psychotic features Ivette Garcia 03/14/2016 F F41.9 Anxiety disorder, unspecified Garcia, Ivette L 03/14/2016 F F43.10 Post- traumatic stress disorder, unspecified Garcia, Ivette L 03/14/2016 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 Garcia, Ivette Ny 03/14/2016 F F41.9 Anxiety disorder, unspecified 03/14/2016 [...] M 03/28/2016 F F41.9 Anxiety disorder, unspecified Kymberly Nichols M 03/28/2016 F F43.10 Post- traumatic stress disorder, unspecified Kymberly Nichols M 03/28/2016 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 Kymberly Nichols M 03/28/2016 F F41.9 Anxiety disorder, unspecified 03/28/2016 F F43.10 Post- traumatic stress disorder, unspecified 03/28/2016 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 03/30/2016 F F31.5 Bipolar disorder, current episode depressed, severe, with psychotic features Dianne Riggs 03/30/2016 F F41.9 Anxiety disorder, unspecified Dianne Riggs A 03/30/2016 F F43.10 Post- traumatic stress disorder, unspecified Dianne Riggs A 03/30/2016 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 Dianne Riggs A 03/30/2016 F F41.9 Anxiety disorder, unspecified 03/30/2016 [...] current episode depressed, severe, with psychotic features Aliza Rene 05/29/2016 F F41.9 Anxiety disorder, unspecified 05/29/2016 F F43.10 Post- traumatic stress disorder, unspecified 05/29/2016 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 05/29/2016 F F41.9 Anxiety disorder, unspecified Anju, Aliza Steele 05/29/2016 F F43.10 Post- traumatic stress disorder, unspecified Anju, Aliza Steele 05/29/2016 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 Anju, Aliza Steele 05/30/2016 F F31.5 Bipolar disorder, current episode depressed, severe, with psychotic features 05/31/2016 F F31.5 Bipolar disorder, current episode depressed, severe, with psychotic features Lidia Main M 05/31/2016 F F41.9 Anxiety disorder, unspecified Lidia Main M 05/31/2016 F F43.10 Post- traumatic stress disorder, unspecified Lidia Main M 05/31/2016 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 Lidia Main M 05/31/2016 F F41.9 Anxiety disorder, unspecified 05/31/2016 F F43.10 Post- traumatic stress disorder, unspecified 05/31/2016 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 06/01/2016 Srivastava Mark Final F17.210 Nicotine dependence, cigarettes, uncomplicated 06/01/2016 Srivastava Mark Final J45.901 Unspecified asthma with (acute) exacerbation 06/01/2016 Srivastava Mark Reason R05 Cough 06/03/2016 F F31.5 Bipolar [...] Batch 07/31/2016 F E03.9 Hypothyroidism , unspecified David, Rosie A 07/31/2016 F F31.5 Bipolar disorder, current episode depressed, severe, with psychotic features Lidia Main 07/31/2016 F F41.9 Anxiety disorder, unspecified Lidia Main 07/31/2016 F F43.10 Post- traumatic stress disorder, unspecified Lidia Main 07/31/2016 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 Lidia Main 07/31/2016 F F41.9 Anxiety disorder, unspecified Psy, Batch 07/31/2016 F F43.10 Post- traumatic stress disorder, unspecified Psy, Batch 07/31/2016 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 Psy, Batch 07/31/2016 F F31.5 Bipolar disorder, current episode depressed, severe, with psychotic features David, Rosie A 07/31/2016 F F41.9 Anxiety disorder, unspecified Sakina-Bora, Rosie A 07/31/2016 F F43.10 Post- traumatic stress disorder, unspecified Sakina-Bora, Rosie A 07/31/2016 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210 Nicotine dependence, cigarettes, uncomplicated Marcus, Yunior L 10/06/2016 Nimisha Velazquezy L K80.80 Other cholelithiasis without obstruction Marcus, Yunior L 10/06/2016 Yunior Velazquez L R10.13 Epigastric pain Marcus, Yunior L 10/06/2016 Nimisha Velazquezy L R11.0 Nausea Marcus, Yunior L 10/10/2016 Nimisha Velazquezy L F17.210 Nicotine dependence, cigarettes, uncomplicated Marcus, Yunior L 10/10/2016 Marcus, Yunior L K80.80 Other cholelithiasis without obstruction Yunior Velazquez L 10/10/2016 Yunior Velazquez L R10.13 Epigastric pain Nimisha Velazquezy L 10/10/2016 Nimisha Velazquezy L R11.0 Nausea Yunior Velazquez L 10/10/2016 Nimisha Velazquezy L K80.10 Calculus of gallbladder with chronic cholecystitis without obstruction Yunior Velazquez L 11/07/2016 F F31.5 Bipolar disorder, current episode depressed, severe, with psychotic features Garcia, Ivette L 11/07/2016 F F41.9 Anxiety disorder, unspecified Garcia, Ivette L 11/07/2016 F F43.10 Post- traumatic stress disorder, unspecified Garcia, Ivette L 11/07/2016 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 Ivette Garcia L 11/07/2016 F F41.9 Anxiety disorder, unspecified Psy, Batch 11/07/2016 F F43.10 Post- traumatic stress disorder, unspecified Psy, Batch 11/07/2016 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 Psy, Batch 11/09/2016 F F31.5 Bipolar disorder, current episode depressed, severe, with psychotic features Psy, Batch 12/27/2016 F F31.5 Bipolar disorder, current episode depressed, severe, with psychotic features MagdalenaSuzetteKymberly M 12/27/2016 F F41.9 Anxiety disorder, unspecified Yeoman, [facility] 12/27/2016 F F43.10 Post- traumatic stress disorder, unspecified Yeoman, Kymberly 12/27/2016 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 Yeoman, [facility] 12/27/2016 F F41.9 Anxiety disorder, unspecified Psy, Batch 12/27/2016 F F43.10 Post- traumatic stress disorder, unspecified Psy, Batch 12/27/2016 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 Psy, Batch 01/01/2017 F F31.5 Bipolar disorder, current episode depressed, severe, with psychotic features Psy, Batch 01/03/2017 F F31.5 Bipolar disorder, current episode depressed, severe, with psychotic features Yesenia Monk 01/03/2017 F F41.9 Anxiety disorder, unspecified Psy, Batch 01/03/2017 F F43.10 Post- traumatic stress disorder, unspecified Psy, Batch 01/03/2017 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 Psy, Batch 01/04/2017 F F41.9 Anxiety disorder, unspecified Aleshia, Guillermoundrieka 01/04/2017 F F43.10 Post- traumatic stress disorder, unspecified Aleshia, Guillermoundrieka 01/04/2017 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 Aleshia, Guillermoundrieka 01/09/2017 F F31.5 Bipolar disorder, current episode [...] F F43.10 Post- traumatic stress disorder, unspecified Sakina-Sahni, Rosie A 05/03/2017 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 David, Rosie A 05/03/2017 F I10 Essential ( primary) hypertension Makaitlinns-Sahni, Rosie A 05/03/2017 F F31.5 Bipolar disorder, [...] Zac Tijerina Final R52 Pain, unspecified 11/21/2017 David,, Gavin Admitting F15.10 11/28/2017 F E03.9 Hypothyroidism , unspecified Jason, Bethany 11/28/2017 F F12.10 Cannabis abuse, uncomplicated Jason, Bethany 11/28/2017 F F15.20 Other stimulant dependence, uncomplicated Jason, Bethany 11/28/2017 F F31.5 Bipolar disorder, current episode depressed, severe, with psychotic features Jason, Bethany 11/28/2017 F F41.9 Anxiety disorder, unspecified Jason, [...] Chambers, Amy12/24/2017 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 Chambers, Amy 12/24/2017 F F31.5 Bipolar disorder, current episode depressed, severe, with psychotic features Chambers, Amy12/24/2017 F F41.9 Anxiety disorder, unspecified Chambers, Amy12/24/2017 F F43.10 Post- traumatic stress disorder, unspecified Chambers, Amy12/24/2017 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 Chambers, Amy12/24/2017 F F31.5 Bipolar disorder, current episode depressed, severe, with psychotic features Chambers, 12/24/2017 F F41.9 Anxiety disorder, unspecified Chambers, Amy 12/24/2017 F F43.10 Post- traumatic stress disorder, unspecified Chambers, Amy12/24/2017 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 Chambers, Amy 12/24/2017 F F31.5 Bipolar disorder, current episode depressed, severe, with psychotic features Chambers, 12/24/2017 F F41.9 Anxiety disorder, unspecified Chambers, Amy 12/24/2017 F F43.10 Post- traumatic stress disorder, unspecified Chambers, Amy 12/24/2017 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 Chambers, Amy 12/24/2017 F F31.5 Bipolar disorder, current episode depressed, severe, with psychotic features Chambers, 12/24/2017 F F41.9 Anxiety disorder, unspecified Chambers, Amy 12/24/2017 F F43.10 Post- traumatic stress disorder, unspecified Chambers, Amy 12/24/2017 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 Chambers, Amy Gay 12/24/2017 F F31.5 Bipolar disorder, current episode depressed, severe, with psychotic features Amy Portillo 12/24/2017 F F41.9 Anxiety disorder, unspecified Amy Portillo 12/24/2017 F F43.10 Post- traumatic stress disorder, unspecified Amy Portillo 12/24/2017 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 Amy Portillo 01/07/2018 Elpidio,José Final E03.9 Hypothyroidism, unspecified 01/07/2018 Elpdiio,José Final E16.2 Hypoglycemia, unspecified 01/07/2018 Elpidio,José Final F15.10 Other stimulant abuse, uncomplicated 01/07/2018 Elpidio,José Final F17.210 Nicotine dependence, cigarettes, uncomplicated 01/07/2018 Elpidio,José Final F31.9 Bipolar disorder, unspecified 01/07/2018 Elpidio,José Final F43.10 Post-traumatic stress disorder, unspecified 01/07/2018 Elpidio,José Final J45.909 Unspecified asthma, uncomplicated 01/07/2018 Magallanes Howard Reason R10.13 Epigastric pain 01/07/2018 Magallanes Howard Final R82.71 Bacteriuria 01/07/2018 Magallanes Howard Final Z32.02 Encounter for test, result negative 01/07/2018 Magallanes Howard Final 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 01/07/2018 Magallanes Howard Final Z88.0 Allergy status to penicillin 01/07/2018 Magallanes Howard Final Z88.1 Allergy status to other antibiotic agents status 01/07/2018 Magallanes Howard Final Z90.49 Acquired absence of other specified parts of digestive tract 01/07/2018 Magallanes Howard Final Z91.040 Latex allergy status 01/07/2018 Magallanes Howard Final Z91.19 Patient''s noncompliance with other medical treatment and regimen 03/27/2018 LEROY PENNY MD Ot A59.01 TRICHOMONAL VULVOVAGINITIS 03/27/2018 LEROY PENNY MD Ot F17.210 NICOTINE DEPENDENCE, CIGARETTES, UNCOMPL 03/27/2018 LEROY PENNY MD Ot F31.9 BIPOLAR DISORDER, UNSPECIFIED 03/27/2018 ODGERS MD, LEROY K Ot F41.9 ANXIETY DISORDER, UNSPECIFIED 03/27/2018 LEROY PENNY MD Ot F43.10 POST-TRAUMATIC STRESS DISORDER, UNSPECIF 03/27/2018 LEROY PENNY MD Ot T42.72XA POISN BY UNSP ANTIEPLPTC AND SED-HYPNTC 03/27/2018 LEROY PENNY MD Ot 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, SELF- 05/10/2018 BUTCH LOTT Ot F31.9 BIPOLAR DISORDER, UNSPECIFIED 05/10/2018 BUTCH LOTT Ot F41.9 ANXIETY DISORDER, UNSPECIFIED 05/10/2018 BUTCH OLTT Ot F43.10 POST-TRAUMATIC STRESS DISORDER, UNSPECIF 05/10/2018 BUTCH LOTT Ot J45.909 UNSPECIFIED ASTHMA, UNCOMPLICATED 05/10/2018 BUTCH LOTT Ot S61.212A LACERATION W/O FB OF R MID FINGER W/O DA 05/10/2018 BUTCH LOTT Ot W27.8XXA CONTACT WITH OTHER NONPOWERED HAND TOOL, 05/10/2018 BUTCH LOTT Ot Z23 ENCOUNTER FOR IMMUNIZATION 05/10/2018 BUTCH LOTT Ot Z86.19 PERSONAL HISTORY OF OTHER INFECTIOUS AND 05/10/2018 BUTCH LOTT Ot Z88.0 ALLERGY STATUS TO PENICILLIN 05/10/2018 BUTCH LOTT Ot Z88.8 ALLERGY STATUS TO OTH DRUG/MEDS/BIOL SUB 05/10/2018 BUTCH LOTT Ot Z91.5 PERSONAL HISTORY OF SELF-HARM 05/10/2018 BUTCH LOTT Ot F31.9 BIPOLAR DISORDER, UNSPECIFIED 05/10/2018 BUTCH LOTT Ot F41.9 ANXIETY DISORDER, UNSPECIFIED 05/10/2018 BUTCH LOTT Ot F43.10 POST-TRAUMATIC STRESS DISORDER, UNSPECIF 05/10/2018 BUTCH LOTT Ot J45.909 UNSPECIFIED ASTHMA, UNCOMPLICATED 05/10/2018 BUTCH LOTT Ot S61.212A LACERATION W/O FB OF R MID FINGER W/O DA 05/10/2018 BUTCH LOTT Ot W27.8XXA CONTACT WITH OTHER NONPOWERED HAND TOOL, 05/10/2018 BUTCH LOTT Ot Z23 ENCOUNTER FOR IMMUNIZATION 05/10/2018 BERNSHAY HUNTERIS Ot Z86.19 PERSONAL HISTORY OF OTHER INFECTIOUS AND 05/10/2018 BERNOT, BUTCH Ot Z88.0 ALLERGY STATUS TO PENICILLIN 05/10/2018 BERNDALE, BUTCH Ot Z88.8 ALLERGY STATUS TO OTH DRUG/MEDS/BIOL SUB 05/10/2018 BERNDALE BUTCH Ot Z91.5 PERSONAL HISTORY OF SELF-HARM Procedures Code Description [place] [address] OFFICE/OUTPATIENT VISIT, GABI Hernandez Rosie Darleen 09/30/2015 [id number] OFFICE/OUTPATIENT VISIT, GABI Hernandez Rosie A 09/30/2015 [id number] OFFICE/OUTPATIENT VISIT, Rosie Appiah 10/20/2015 [id number] OFFICE/OUTPATIENT VISIT, GABI Hernandez Rosie Darleen 10/20/2015 15184 OFFICE/OUTPATIENT VISIT, GABI Hernandez Rosie Darleen 12/15/2015 [id number] OFFICE/OUTPATIENT VISIT, GABI Hernandez Rosie Darleen 12/15/2015 [id number] Anju , Aliza Steele 01/05/2016 66157 Anju , Aliza Steele 01/05/2016 51498 OFFICE/OUTPATIENT VISIT, GABI David Rosie Morejon 01/10/2016 75506 OFFICE/OUTPATIENT VISIT, GABI SakinaDeboBora Rosie Morejon 01/10/2016 92344 Anju , Aliza Steele 01/14/2016 56053 Anju , Aliza Steele 01/14/2016 H0036 Joey Krueger 01/27/2016 H0036 Joey Krueger 01/27/2016 07285 Anju , Aliza Steele 01/28/2016 13105 Anju , Aliza Steele 01/28/2016 79654 OFFICE/OUTPATIENT VISIT, GABI PresleyDeboBora Rosie A 02/09/2016 19485 OFFICE/OUTPATIENT VISIT, Rosie Appiah 02/09/2016 01561 Anju , Aliza Steele 02/10/2016 44500 Anju , Aliza Steele 02/10/2016 H0036 Joey Krueger 02/24/2016 H0036 Joey Krueger 02/24/2016 H2011 Reginald Holbrook 03/06/2016 H2011 Reginald Holbrook W 03/06/2016 [id number] Anju , Aliza Ivette 03/14/2016 51705 Anju , Aliza Ivette 03/14/2016 46445 Anju , Aliza Ivette 03/28/2016 98437 Anju , Aliza Ivette 03/28/2016 12062 OFFICE/OUTPATIENT VISIT, GABI HearnkaitlinjuanitaSahni, Rosie A 03/30/2016 13540 OFFICE/OUTPATIENT VISIT, GABI HearnwilyDeboBora, Rosie A 03/30/2016 33183 Anju , Aliaz Ivette 04/07/2016 44809 Anju , Aliza Ivette 04/07/2016 56451 Anju , Aliza Ivette 05/29/2016 88514 Anju , Aliza Ivette 05/29/2016 06610 OFFICE/OUTPATIENT VISIT, GABI HearnkaitlinjuanitaBora, Rosie A 05/31/2016 25192 OFFICE/OUTPATIENT VISIT, GABI David, Rosie A 05/31/2016 95497 Anju , Aliza Ivette 07/12/2016 31641 Anju , Aliza Ivette 07/12/2016 80053 OFFICE/OUTPATIENT VISIT, GABI HearnkaitlinjuanitaSahni, Rosie A 07/31/2016 62655 OFFICE/OUTPATIENT VISIT, GABI HearnwilyDeboBora Rosie A 07/31/2016 80973 Laparoscopy, surgical; cholecystectomy with cholangiography.. 2015 [id number] Office or other outpatient visit for the evaluation and management of a new patient, which requires Yunior Velazquez 10/06/2016 67593 Laparoscopy, surgical; cholecystectomy with cholangiography Yunior Velazquez 10/06/2016 00939 Laparoscopy, surgical; cholecystectomy with cholangiography Yunior Velazquez 10/20/2016 90080 Office or other outpatient visit for the evaluation and management of a new patient, which requires Yunior Velazquez 10/20/2016 24433 Anju , Aliza Ivette 11/07/2016 97270 Anju , Aliza Ivette 11/07/2016 81011 Siomara Monkrilakshmi 12/27/2016 91089 Siomara Monkrilakshmi 12/27/2016 39863 Siomara Monkrilakshmi 01/03/2017 26107 Yesenia Monk 01/03/2017 50751 EYE EXAM ESTABLISHED PAT 03/14/2017 35401 REFRACTION 03/14/2017 V2020 Vision svcs frames purchases 03/14/2017 V2100 Lens spher single plano 4.00 03/14/2017 V2103 Spherocylindr 4.00d/12- 2.00d 03/14/2017 V2782 Lens, 1.54-1.65 p/1.60- 1.79g 03/14/2017 VNOPP No Protection Plan 03/14/2017 [id number] OFFICE/OUTPATIENT VISIT, Rosie Appiah 05/03/2017 35082 OFFICE/OUTPATIENT VISIT, Rosie Appiah 05/03/2017 T1023 Gatekeeping Screen - Initial Jason Bethany 11/28/2017 H2011 Crisis Intervention - Basic Ella Escalera 11/28/2017 H2011 Crisis Intervention - Advanced Lucy Pacheco 11/28/2017 H2011 Crisis Intervention - Advanced Lucy Pacheco 11/28/2017 H2011 Crisis Intervention - Intermediate RickElla hong 11/28/2017 [id number] INITIAL HOSPITAL CARE Coyner, Sienna S 12/19/2017 64022 SUBSEQUENT HOSPITAL CARE Coyner, Sienna S 12/20/2017 86229 SUBSEQUENT HOSPITAL CARE Coyner, Sienna S 12/21/2017 89865 SUBSEQUENT HOSPITAL CARE Coyner, Sienna S 12/22/2017 93249 SUBSEQUENT HOSPITAL CARE Coyner, Sienna S 12/23/2017 13925 HOSPITAL DISCHARGE DAY Coyner, Sienna Hong 12/24/2017 <section xmlns="urn:hl7-org:v3" xmlns:xsi="http://www.w3.org/2001/XMLSchema-instance"> < templateId root="[id number]" /> <templateId root= "[id number]" /> <code codeSystemName="LOINC" codeSystem= "[id number]" code="92058-3" displayName="Results" /> <title>Results< /title> <text> <table> <thead> [...] <td>WBC</td> <td>5.4 K/uL</td> <td>4.8-10.8</ td> </tr> <tr> <th colspan="10">CBC With Platelet No [...] mEq/L</td> <td>136-144</td> </tr> <tr> <th colspan="10">eGFR - 08/17/16 18:11</th> </tr> <tr> <td>eGFR</td> <td>>60 NA</td> <td>>60</td> </tr> <tr> <th colspan="10"> Urinalysis with reflex microscopic - 02/09/17 [...] <td>Negative NA</td> <td> Negative</td> </tr> <tr> <td>Specific [place]</td> <td>1.020 NA</td> <td>1.003-1.030</td> </tr> <tr> <td>UA Collection [...] <td>WBC</td> <td>5.6 K/uL</td> <td> 4.8-10.8</td> </tr> <tr> < colspan="10">Urinalysis with reflex microscopic - 05/24/17 09:43</th> [...] <td>Protein</td> <td>Negative NA</td> <td>Negative</td> </tr> <tr> <td>Specific [place]</td> <td>1.015 NA </td> <td>1.003-1.030</td> </tr> <tr> <td>UA [...] <td>Pos 2+ NA</td> <td>Negative</td> </tr> <tr> <td>Specific [place]</td> <td>1.015 NA</td > <td>1.003-1.030</td> </tr> <tr> <td>UA Collection type</td> <td>Clean Catch NA</td> <td /> </ tr> <tr> <td>Urobilinogen</td> <td>Negative mg/dL</td> <td><1.0</td> </tr> <tr> <th colspan="10"> Urine Microscopic - 08/03/17 11:34</th> </tr> [...] /> </tr> <tr> <th colspan="10"> Screen, Urine - 11:26</th> </tr> <tr> <td> Screen, Urine</ td> <td>Negative NA</td> <td /> </tr> <tr> <th colspan="10">Urinalysis with reflex microscopic - 08/05/17 11:26</th> [...] <td>Protein</td> <td>Negative NA</td> <td>Negative</td> </tr> <tr> <td>Specific [place]</ td> <td>1.010 NA</td> <td>1.003-1.030</td> </tr> <tr> <td>UA [...] Urine</td> <td>10 /HPF</td> <td>0-4< /td> </tr> <tr> <th colspan="10">Urine Drug Screen - 11:26</th> </tr> <tr> [...] <td>Pos 2+ NA</td> <td>Negative</td> </tr> <tr> <td>Specific [place]</td> <td>1.045 NA</td> <td>1.003- 1.030</td> </tr> <tr> <td>UA [...] < td>Negative NA</td> <td /> </tr> <tr> <th colspan="10">Salicylate - 11/21/17 01:06</th> </tr> <tr> <td>Salicylate</td> [...] <td>Sodium</td> <td>138 mEq/L</td> <td>136-144</td> </tr> <tr> <th colspan="10">Acetaminophen - 11/21/17 21:45</ th> </tr> <tr> <td>Acetaminophen</td> <td>< 10 mcg/mL</td> <td>10-30</td> </tr> <tr> <th colspan="10">eGFR - 11/21/17 21:45</th> </tr> <tr> <td> [...] mEq/L</td> <td>136-144</td> </tr> <tr> <th colspan="10">eGFR - 11/22/17 03:03</th> </tr> <tr> <td>eGFR</td> <td>>60 mL/min</td> <td>>60</td> </tr> <tr> <th colspan="10">CBC With Platelet No Differential - 11/23/17 [...] <td>eGFR</td> < td>>60 mL/min</td> <td>>60</td> </tr> <tr> < colspan="10">TSH with Reflex Free T4 - 11/26/17 03:43</th> </tr> <tr> <td>TSH with Reflex Free T4</td> <td>1.17 uIU/mL</ td> <td>0.35-4.94</td> </tr> <tr> <th colspan= "10">Urinalysis with reflex microscopic - 12/16/17 [...] <td>Protein</td> <td>Negative NA</td> <td>Negative</td> </tr> <tr> <td>Specific [place] </td> <td>1.025 NA</td> <td>1.003-1.030</td> </tr> <tr> <td>UA [...] <td> Sodium</td> <td>140 mEq/L</td> <td>136-144</td> </tr> <tr> <th colspan="10">Alcohol, Blood - 12/16/17 10:44</th> </tr> <tr> [...] <td>Protein</td> <td>Negative NA</td> <td>Negative</td> </tr> <tr> <td>Specific [place]</td> <td>1.020 NA</td> <td>1.003-1.030 </td> </tr> <tr> <td>UA Collection type</td> <td >Voided NA</td> <td /> </tr> <tr> <td> Urobilinogen</td> <td>Negative mg/dL</td> <td><1.0</td> </tr> <tr> < colspan="10">Urine Microscopic - 01/04/18 10 :32</th> </tr> <tr> <td>Bacteria</td> <td> Moderate NA</td> <td /> </tr> <tr> <td> Epithelial Cells</td> <td>10 /HPF</td> <td /> </tr> <tr> <td>RBC, Urine</td> <td>0 /HPF</td> <td>0-2 </td> </tr> <tr> <td>Urine Mucus</td> <td> Present NA</td> <td /> </tr> <tr> <td>WBC, Urine </td> <td>2 /HPF</td> <td>0-4</td> </tr> <tr> <th colspan="10">CBC With Platelet and Differential - 01/04/18 [...] <tr> <td>WBC</td> <td>6.1 K/uL</td> <td>4.8-10.8</td> </tr> <tr> <th colspan="10"> Basic Metabolic Panel (BMP) - 01/04/18 [...] <tr> <td>Glucose NPT</td> <td>99 mg/dL</td> <td>70-100</td> </tr> <tr> <th colspan="10"> Complete blood count (CBC) with automated white blood cell (WBC) differential - 03/26/18 00:50</th> </tr> <tr> <td>Blood leukocytes automated count (number/volume)</td> <td>9.1 10*3/uL</td> <td> 4.3-11.0</td> </tr> <tr> <td>Blood erythrocytes automated count (number/volume)</td> <td>4.56 10*6/uL</td> <td >4.35-5.85</td> </tr> <tr> <td>Venous blood hemoglobin measurement (mass/volume)</td> <td>14.4 g/dL</td> <td>11.5- 16.0</td> </tr> <tr> <td>Blood hematocrit (volume fraction)</td> <td>40 %</td> <td>35-52</td> </tr> <tr> <td>Automated erythrocyte mean corpuscular volume</td> <td>88 [foz_us]</td> <td>80-99</td> </tr> <tr> <td>Automated erythrocyte mean corpuscular hemoglobin (mass per erythrocyte)</td> <td>32 pg</td> <td>25-34</td> </tr> <tr> <td>Automated erythrocyte mean corpuscular hemoglobin concentration measurement (mass/volume)</td> <td>36 g/dL</td> <td>32-36</td> </tr> <tr> <td>Automated erythrocyte distribution width ratio</td> <td>14.4 %</td> <td>10.0- 14.5</td> </tr> <tr> <td>Automated blood platelet count ( count/volume)</td> <td>279 10*3/uL</td> <td>130-400</td> </tr> <tr> <td>Automated blood platelet mean volume measurement</td> <td>10.0 [foz_us]</td> <td>7.4-10.4</td> </tr> <tr> <td>Automated blood neutrophils/100 leukocytes</ td> <td>58 %</td> <td>42-75</td> </tr> <tr> <td>Automated blood lymphocytes/100 leukocytes</td> <td>27 &# 37;</td> <td>12-44</td> </tr> <tr> <td>Blood monocytes/100 leukocytes</td> <td>7 %</td> <td>0-12</td> </tr> <tr> <td>Automated blood eosinophils/100 leukocytes </td> <td>8 %</td> <td>0-10</td> </tr> <tr> <td>Automated blood basophils/100 leukocytes</td> <td>1 % </td> <td>0-10</td> </tr> <tr> <td>Blood neutrophils automated count (number/volume)</td> <td>5.3 10*3</td> <td>1.8-7.8</td> </tr> <tr> <td>Blood lymphocytes automated count (number/volume)</td> <td>2.4 10*3</td> <td>1.0 -4.0</td> </tr> <tr> <td>Blood monocytes automated count (number/volume)</td> <td>0.7 10*3</td> <td>0.0-1.0</td> </tr> <tr> <td>Automated eosinophil count</td> <td> 0.7 10*3/uL</td> <td>0.0-0.3</td> </tr> <tr> <td >Automated blood basophil count (count/volume)</td> <td>0.1 10*3/uL</td > <td>0.0-0.1</td> </tr> <tr> <th colspan="10"> Comprehensive metabolic panel - 03/26/18 00:50</th> </tr> <tr> <td>Serum or plasma sodium measurement (moles/volume)</td> <td> 139 mmol/L</td> <td>135-145</td> </tr> <tr> <td> Serum or plasma potassium measurement (moles/volume)</td> <td>3.9 mmol/ L</td> <td>3.6-5.0</td> </tr> <tr> <td>Serum or plasma chloride measurement (moles/volume)</td> <td>108 mmol/L</td> <td>98-107</td> </tr> <tr> <td>Carbon dioxide</td > <td>17 mmol/L</td> <td>21-32</td> </tr> <tr> <td>Serum or plasma anion gap determination (moles/volume)</td> <td>14 mmol/L</td> <td>5-14</td> </tr> <tr> < td>Serum or plasma urea nitrogen measurement (mass/volume)</td> <td>10 mg/dL</td> <td>7-18</td> </tr> <tr> <td>Serum or plasma creatinine measurement (mass/volume)</td> <td>0.72 mg/dL</td > <td>0.60-1.30</td> </tr> <tr> <td>Serum or plasma urea nitrogen/creatinine mass ratio</td> <td>14 </td> < td>NRG</td> </tr> <tr> <td>Serum or plasma creatinine measurement with calculation of estimated glomerular filtration rate</td> <td>> </td> <td>NRG</td> </tr> <tr> <td> Serum or plasma glucose measurement (mass/volume)</td> <td>68 mg/dL</td > <td>70-105</td> </tr> <tr> <td>Serum or plasma calcium measurement (mass/volume)</td> <td>9.3 mg/dL</td> <td>8.5-10.1</td> </tr> <tr> <td>Serum or plasma total bilirubin measurement (mass/volume)</td> <td>0.3 mg/dL</td> <td>0.1-1.0</td> </tr> <tr> <td>Serum or plasma alkaline phosphatase measurement (enzymatic activity/volume)</td> <td> 74 U/L</td> <td>40-136</td> </tr> <tr> <td> Serum or plasma aspartate aminotransferase measurement (enzymatic activity/ volume)</td> <td>14 U/L</td> <td>5-34</td> </tr> <tr> <td>Serum or plasma alanine aminotransferase measurement ( enzymatic activity/volume)</td> <td>12 U/L</td> <td>0-55</td> </tr> <tr> <td>Serum or plasma protein measurement (mass /volume)</td> <td>7.2 g/dL</td> <td>6.4-8.2</td> </tr> <tr> <td>Serum or plasma albumin measurement (mass/volume)</td > <td>4.3 g/dL</td> <td>3.2-4.5</td> </tr> <tr> < colspan="10">Serum or plasma salicylates measurement (mass/volume ) - 03/26/18 00:50</th> </tr> <tr> <td>Serum or plasma salicylates measurement (mass/volume)</td> <td>< mg/dL</td> <td>5.0-20.0</td> </tr> <tr> <th colspan="10">Serum or plasma acetaminophen measurement (mass/volume) - 03/26/18 00:50</th> </tr > <tr> <td>Serum or plasma acetaminophen measurement (mass/ volume)</td> <td>< ug/mL</td> <td>10-30</td> </tr> <tr> < colspan="10">Serum or plasma ethanol measurement (mass/ volume) - 03/26/18 00:50</th> </tr> <tr> <td>Serum or plasma ethanol measurement (mass/volume)</td> <td>< mg/dL</td> <td><10</td> </tr> <tr> <th colspan="10">Serum or plasma thyrotropin measurement by detection limit <=0.05 miu/l (units/ volume) - 03/26/18 00:50</th> </tr> <tr> <td>Serum or plasma thyrotropin measurement by detection limit <=0.05 miu/l (units/volume) </td> <td>1.91 u[iU]/mL</td> <td>0.35-4.94</td> </tr> <tr> <th colspan="10">Complete urinalysis with reflex to culture - 03/26/18 01:20</th> </tr> <tr> <td>Urine color determination</td> <td>YELLOW </td> <td>NRG</td> </tr> <tr> <td>Urine clarity determination</td> <td> SLIGHTLY CLOUDY </td> <td>NRG</td> </tr> <tr> < td>Urine pH measurement by test strip</td> <td>6 </td> <td>5-9 </td> </tr> <tr> <td>Specific gravity of urine by test strip</td> <td>1.010 </td> <td>1.016-1.022</td> </tr> <tr> <td>Urine protein assay by test strip, semi-quantitative</ td> <td>NEGATIVE </td> <td>NEGATIVE</td> </tr> < tr> <td>Urine glucose detection by automated test strip</td> < td>NEGATIVE </td> <td>NEGATIVE</td> </tr> <tr> < td>Erythrocytes detection in urine sediment by light microscopy</td> < td>NEGATIVE </td> <td>NEGATIVE</td> </tr> <tr> < td>Urine ketones detection by automated test strip</td> <td>NEGATIVE </ td> <td>NEGATIVE</td> </tr> <tr> <td>Urine nitrite detection by test strip</td> <td>NEGATIVE </td> <td> NEGATIVE</td> </tr> <tr> <td>Urine total bilirubin detection by test strip</td> <td>NEGATIVE </td> <td>NEGATIVE</ td> </tr> <tr> <td>Urine urobilinogen measurement by automated test strip (mass/volume)</td> <td>NORMAL </td> <td> NORMAL</td> </tr> <tr> <td>Urine leukocyte esterase detection by dipstick</td> <td>3+ </td> <td>NEGATIVE</td> </tr> <tr> <td>Automated urine sediment erythrocyte count by microscopy (number/high power field)</td> <td>NONE </td> < td>NRG</td> </tr> <tr> <td>Automated urine sediment leukocyte count by microscopy (number/high power field)</td> <td> [HPF] </td> <td>NRG</td> </tr> <tr> <td>Bacteria detection in urine sediment by light microscopy</td> <td>TRACE </td> <td>NRG</td> </tr> <tr> <td>Squamous epithelial cells detection in urine sediment by light microscopy</td> <td>10-25 </ td> <td>NRG</td> </tr> <tr> <td>Crystals detection in urine sediment by light microscopy</td> <td>NONE </td> <td>NRG</td> </tr> <tr> <td>Casts detection in urine sediment by light microscopy</td> <td>NONE </td> <td>NRG </td> </tr> <tr> <td>Mucus detection in urine sediment by light microscopy</td> <td>NEGATIVE </td> <td>NRG</td> </tr> <tr> <td>Complete urinalysis with reflex to culture</td > <td>YES </td> <td>NRG</td> </tr> <tr> <td>Urine Trichomonas species detection by light microscopy</td> <td> FEW </td> <td>NRG</td> </tr> <tr> < colspan= "10">Urine beta human chorionic gonadotropin (hCG) measurement - 03/26/18 01:20< /th> </tr> <tr> <td>Urine beta human chorionic gonadotropin (hCG) measurement</td> <td>NEGATIVE </td> <td> NEGATIVE</td> </tr> <tr> < colspan="10">Urine drug screening test - 03/26/18 01:20</th> </tr> <tr> <td> Urine phencyclidine detection by screening method</td> <td>NEGATIVE </ td> <td>NEGATIVE</td> </tr> <tr> <td>Urine benzodiazepines detection by screening method</td> <td>NEGATIVE </td> <td>NEGATIVE</td> </tr> <tr> <td>Urine cocaine detection</td> <td>NEGATIVE </td> <td>NEGATIVE</td> </ tr> <tr> <td>Urine amphetamines detection by screening method</ td> <td>NEGATIVE </td> <td>NEGATIVE</td> </tr> < tr> <td>Urine methamphetamine detection by screening method</td> <td>NEGATIVE </td> <td>NEGATIVE</td> </tr> <tr> <td>Urine cannabinoids detection by screening method</td> <td> NEGATIVE </td> <td>NEGATIVE</td> </tr> <tr> <td> Urine opiates detection by screening method</td> <td>NEGATIVE </td> <td>NEGATIVE</td> </tr> <tr> <td>Urine barbiturates detection</td> <td>NEGATIVE </td> <td>NEGATIVE</ td> </tr> <tr> <td>Screening urine tricyclic antidepressants detection</td> <td>NEGATIVE </td> <td>NEGATIVE </td> </tr> <tr> <td>Urine methadone detection by screening method</td> <td>NEGATIVE </td> <td>NEGATIVE</td> </tr> <tr> <td>Urine oxycodone detection</td> <td> NEGATIVE </td> <td>NEGATIVE</td> </tr> <tr> <td> Urine propoxyphene detection</td> <td>NEGATIVE </td> <td> NEGATIVE</td> </tr> <tr> <th colspan="10">Bacterial urine culture - 03/26/18 01:20</th> </tr> <tr> <td> Bacterial urine culture</td> <td>SEE COMMEN </td> <td>NRG</td > </tr> <tr> <td>COLONY COUNT</td> <td>. </td> <td>NRG</td> </tr> <tr> <th colspan="10"> Methicillin resistant Staphylococcus aureus (MRSA) screening culture - 03/26/18 03:30</th> </tr> <tr> <td>Methicillin resistant Staphylococcus aureus (MRSA) screening culture</td> <td>NEG </td> <td>NRG</td> </tr> </tbody> </table> </text> <entry> < organizer moodCode="EVN" classCode="BATTERY"> <templateId root= "[id number]" /> <id nullFlavor="NA" /> <code codeSystem="local" code="PREGU" displayName="UR TEST" /> < statusCode code="completed" /> <component> <observation moodCode= "EVN" classCode="OBS"> <templateId root="[id number]..22.4.2 " /> <id nullFlavor="NA" /> <code codeSystem="local" code= "PREGU" displayName="UR TEST" /> <statusCode code="completed " /> <effectiveTime value="[id number]" /> <value unit="" xsi :type="PQ" value="POSITIVE" /> <interpretationCode codeSystem="local" code="*" /> <referenceRange> <observationRange> <text>NEGATIVE</text> </observationRange> </referenceRange > </observation> </component> </organizer> </entry> <entry> <organizer moodCode="EVN" classCode="BATTERY"> <templateId root= "[id number]..4.1" /> <id nullFlavor="NA" /> <code codeSystem="local" code="UA" displayName="URINALYSIS, ROUTINE" /> < statusCode code="completed" /> <component> <observation moodCode= "EVN" classCode="OBS"> <templateId root="[id number]..4.2 " /> <id nullFlavor="NA" /> <code codeSystem="local" code= "LEUESU" displayName="UA LEUKOCYTE ESTERASE DIPSTICK" /> <statusCode code="completed" /> <effectiveTime value="370266163190" /> < value unit="" xsi:type="PQ" value="NEGATIVE" /> <referenceRange> <observationRange> <text>NEGATIVE</text> </ observationRange> </referenceRange> </observation> </ component> <component> <observation moodCode="EVN" classCode="OBS"> <templateId root="[id number]" /> <id nullFlavor="NA" /> <code codeSystem="local" code="NITRIU" displayName= "UA NITRITE DIPSTICK" /> <statusCode code="completed" /> < effectiveTime value="[id number]" /> <value unit="" xsi:type="PQ" value="NEGATIVE" /> <referenceRange> <observationRange> <text>NEGATIVE</text> </observationRange> </ referenceRange> </observation> </component> <component> <observation moodCode="EVN" classCode="OBS"> <templateId root= "[id number]" /> <id nullFlavor="NA" /> < code codeSystem="local" code="PROTEIU" displayName="UA PROTEIN DIPSTICK" /> <statusCode code="completed" /> <effectiveTime value= "" /> <value unit="" xsi:type="PQ" value="NEGATIVE" /> <referenceRange> <observationRange> <text>NEGATIVE </text> </observationRange> </referenceRange> </ observation> </component> <component> <observation moodCode= "EVN" classCode="OBS"> <templateId root="[id number] " /> <id nullFlavor="NA" /> <code codeSystem="local" code= "DGLUU" displayName="UA GLUCOSE DIPSTICK" /> <statusCode code= "completed" /> <effectiveTime value="372583733112" /> <value unit="" xsi:type="PQ" value="NEGATIVE" /> <referenceRange> < observationRange> <text>NEGATIVE</text> </ observationRange> </referenceRange> </observation> </ component> <component> <observation moodCode="EVN" classCode="OBS"> <templateId root="[id number]2.4.2" /> <id nullFlavor="NA" /> <code codeSystem="local" code="KETONU" displayName= "UA KETONE DIPSTICK" /> <statusCode code="completed" /> < effectiveTime value="" /> <value unit="" xsi:type="PQ" value="NEGATIVE" /> <referenceRange> <observationRange> <text>NEGATIVE</text> </observationRange> </ referenceRange> </observation> </component> <component> <observation moodCode="EVN" classCode="OBS"> <templateId root= "11.30.840.1.428513.10..4.2" /> <id nullFlavor="NA" /> < code codeSystem="local" code="UROBILU" displayName="UA UROBILINOGEN DIPSTICK" / > <statusCode code="completed" /> <effectiveTime value= "[id number]" /> <value unit="" xsi:type="PQ" value="NORMAL" /> <referenceRange> <observationRange> <text>NORMAL</ text> </observationRange> </referenceRange> </ observation> </component> <component> <observation moodCode= "EVN" classCode="OBS"> <templateId root="[id number] " /> <id nullFlavor="NA" /> <code codeSystem="local" code= "BILU" displayName="UA BILIRUBIN DIPSTICK" /> <statusCode code= "completed" /> <effectiveTime value="847032932363" /> <value unit="" xsi:type="PQ" value="NEGATIVE" /> <referenceRange> < observationRange> <text>NEGATIVE</text> </ observationRange> </referenceRange> </observation> </ component> <component> <observation moodCode="EVN" classCode="OBS"> <templateId root="11.30.840.1.766132.1022.4.2" /> <id nullFlavor="NA" /> <code codeSystem="local" code="ABDELRAHMAN" displayName="UA BLOOD DIPSTICK" /> <statusCode code="completed" /> < effectiveTime value="288883551695" /> <value unit="" xsi:type="PQ" value="NEGATIVE" /> <referenceRange> <observationRange> <text>NEGATIVE</text> </observationRange> </ referenceRange> </observation> </component> <component> <observation moodCode="EVN" classCode="OBS"> <templateId root= "216.840.1.649811.08.03.22.4.2" /> <id nullFlavor="NA" /> < code codeSystem="local" code="SPGRU" displayName="UA SPECIFIC GRAVITY" /> <statusCode code="completed" /> <effectiveTime value="256107206880 " /> <value unit="" xsi:type="PQ" value="1.007" /> < interpretationCode codeSystem="local" code="*" /> <referenceRange> <observationRange> <text>1.015-1.025</text> </ observationRange> </referenceRange> </observation> </ component> <component> <observation moodCode="EVN" classCode="OBS"> <templateId root="[id number].2" /> <id nullFlavor="NA" /> <code codeSystem="local" code="COLTON" displayName="UR PH" /> <statusCode code="completed" /> <effectiveTime value= "763083296408" /> <value unit="" xsi:type="PQ" value="5.0" /> <referenceRange> <observationRange> <text>5.0-7.0</text > </observationRange> </referenceRange> </observation > </component> </organizer> </entry> <entry> <organizer moodCode= "EVN" classCode="BATTERY"> <templateId root="216.840.1.881613...4.1 " /> <id nullFlavor="NA" /> <code codeSystem="local" code="UA" displayName="URINALYSIS, ROUTINE" /> <statusCode code="completed" /> < component> <observation moodCode="EVN" classCode="OBS"> < templateId root="216.840.1.221088.08.03.22.4.2" /> <id nullFlavor="NA " /> <code codeSystem="local" code="LEUESU" displayName="UA LEUKOCYTE ESTERASE DIPSTICK" /> <statusCode code="completed" /> < effectiveTime value="531989756961" /> <value unit="" xsi:type="PQ" value="1+" /> <interpretationCode codeSystem="local" code="*" /> <referenceRange> <observationRange> <text>NEGATIVE</ text> </observationRange> </referenceRange> </ observation> </component> <component> <observation moodCode= "EVN" classCode="OBS"> <templateId root="840.1.657470.08.03.22.4.2 " /> <id nullFlavor="NA" /> <code codeSystem="local" code= "NITRIU" displayName="UA NITRITE DIPSTICK" /> <statusCode code= "completed" /> <effectiveTime value="[id number]" /> <value unit="" xsi:type="PQ" value="NEGATIVE" /> <referenceRange> < observationRange> <text>NEGATIVE</text> </ observationRange> </referenceRange> </observation> </ component> <component> <observation moodCode="EVN" classCode="OBS"> <templateId root="11.30.840.1.338986.08.03.22.4.2" /> <id nullFlavor="NA" /> <code codeSystem="local" code="PROTEIU" displayName= "UA PROTEIN DIPSTICK" /> <statusCode code="completed" /> < effectiveTime value="" /> <value unit="" xsi:type="PQ" value="TRACE" /> <interpretationCode codeSystem="local" code="*" /> <referenceRange> <observationRange> <text> NEGATIVE</text> </observationRange> </referenceRange> </observation> </component> <component> <observation moodCode ="EVN" classCode="OBS"> <templateId root= "2.16.840.1.175086.10..22.4.2" /> <id nullFlavor="NA" /> < code codeSystem="local" code="DGLUU" displayName="UA GLUCOSE DIPSTICK" /> <statusCode code="completed" /> <effectiveTime value=" " /> <value unit="" xsi:type="PQ" value="NEGATIVE" /> < referenceRange> <observationRange> <text>NEGATIVE</text > </observationRange> </referenceRange> </observation > </component> <component> <observation moodCode="EVN" classCode="OBS"> <templateId root="2.16.840.1.785404.10..22.4.2" /> <id nullFlavor="NA" /> <code codeSystem="local" code="KETONU" displayName="UA KETONE DIPSTICK" /> <statusCode code="completed" /> <effectiveTime value="" /> <value unit="" xsi:type= "PQ" value="TRACE" /> <interpretationCode codeSystem="local" code="*" / > <referenceRange> <observationRange> <text> NEGATIVE</text> </observationRange> </referenceRange> </observation> </component> <component> <observation moodCode ="EVN" classCode="OBS"> <templateId root= "16.840.1.023614.10.22.4.2" /> <id nullFlavor="NA" /> < code codeSystem="local" code="UROBILU" displayName="UA UROBILINOGEN DIPSTICK" / > <statusCode code="completed" /> <effectiveTime value= "" /> <value unit="" xsi:type="PQ" value="NORMAL" /> <referenceRange> <observationRange> <text>NORMAL</ text> </observationRange> </referenceRange> </ observation> </component> <component> <observation moodCode= "EVN" classCode="OBS"> <templateId root="11.30.840.1.184216.08.03.22.4.2 " /> <id nullFlavor="NA" /> <code codeSystem="local" code= "BILU" displayName="UA BILIRUBIN DIPSTICK" /> <statusCode code= "completed" /> <effectiveTime value="" /> <value unit="" xsi:type="PQ" value="NEGATIVE" /> <referenceRange> < observationRange> <text>NEGATIVE</text> </ observationRange> </referenceRange> </observation> </ component> <component> <observation moodCode="EVN" classCode="OBS"> <templateId root="[id number]" /> <id nullFlavor="NA" /> <code codeSystem="local" code="ABDELRAHMAN" displayName="UA BLOOD DIPSTICK" /> <statusCode code="completed" /> < effectiveTime value="" /> <value unit="" xsi:type="PQ" value="4+" /> <interpretationCode codeSystem="local" code="*" /> <referenceRange> <observationRange> <text>NEGATIVE</ text> </observationRange> </referenceRange> </ observation> </component> <component> <observation moodCode= "EVN" classCode="OBS"> <templateId root="[id number] " /> <id nullFlavor="NA" /> <code codeSystem="local" code= "SPGRU" displayName="UA SPECIFIC GRAVITY" /> <statusCode code= "completed" /> <effectiveTime value="[id number]" /> <value unit="" xsi:type="PQ" value="1.010" /> <interpretationCode codeSystem= "local" code="*" /> <referenceRange> <observationRange> <text>1.015-1.025</text> </observationRange> </ referenceRange> </observation> </component> <component> <observation moodCode="EVN" classCode="OBS"> <templateId root= "[id number]..4.2" /> <id nullFlavor="NA" /> < code codeSystem="local" code="COLTON" displayName="UR PH" /> <statusCode code="completed" /> <effectiveTime value="[id number]" /> < value unit="" xsi:type="PQ" value="7.0" /> <referenceRange> <observationRange> <text>5.0-7.0</text> </ observationRange> </referenceRange> </observation> </ component> </organizer> </entry> <entry> <organizer moodCode="EVN" classCode="BATTERY"> <templateId root="[id number]" /> <id nullFlavor="NA" /> <code codeSystem="local" code="UAMICRO" displayName="UA MICROSCOPIC" /> <statusCode code="completed" /> < component> <observation moodCode="EVN" classCode="OBS"> < templateId root="[id number]" /> <id nullFlavor="NA " /> <code codeSystem="local" code="EPIU" displayName="UA EPITHELIAL CELLS" /> <statusCode code="completed" /> <effectiveTime value ="" /> <value unit="epi/hpf" xsi:type="PQ" value="1+" /> <referenceRange> <observationRange> <text>0 - 1+ </text> </observationRange> </referenceRange> </ observation> </component> <component> <observation moodCode= "EVN" classCode="OBS"> <templateId root="[id number]24.2 " /> <id nullFlavor="NA" /> <code codeSystem="local" code= "MUCUSU" displayName="UA MUCUS" /> <statusCode code="completed" /> <effectiveTime value="" /> <value unit="" xsi:type= "PQ" value="2+" /> <interpretationCode codeSystem="local" code="*" /> <referenceRange> <observationRange> <text>NEG TO 1+</text> </observationRange> </referenceRange> </ observation> </component> <component> <observation moodCode= "EVN" classCode="OBS"> <templateId root="16.840.1.828506...4.2 " /> <id nullFlavor="NA" /> <code codeSystem="local" code= "RBCU" displayName="UA RBC" /> <statusCode code="completed" /> <effectiveTime value="" /> <value unit="rbc/hpf" xsi:type ="PQ" value="PACKED FIELD" /> <interpretationCode codeSystem="local" code="*" /> <referenceRange> <observationRange> <text>0 - 3</text> </observationRange> </referenceRange> </observation> </component> <component> <observation moodCode="EVN" classCode="OBS"> <templateId root= "2.16.840.1.454231.10.4.2" /> <id nullFlavor="NA" /> < code codeSystem="local" code="UAVOL" displayName="UA VOLUME FOR EXAM" /> <statusCode code="completed" /> <effectiveTime value="" /> <value unit="mL" xsi:type="PQ" value="12.0" /> < referenceRange> <observationRange> <text>(12mL STD)</ text> </observationRange> </referenceRange> </ observation> </component> <component> <observation moodCode= "EVN" classCode="OBS"> <templateId root="216.840.1.648446.08.03.22.4.2 " /> <id nullFlavor="NA" /> <code codeSystem="local" code= "WBCU" displayName="UA WBC" /> <statusCode code="completed" /> <effectiveTime value="[id number]" /> <value unit="wbc/hpf" xsi:type ="PQ" value="2-5" /> <referenceRange> <observationRange> <text>0 - 5</text> </observationRange> </ referenceRange> </observation> </component> </organizer> </entry > <entry> <organizer moodCode="EVN" classCode="BATTERY"> <templateId root="2.16.840.1.590086..4.1" /> <id nullFlavor="NA" /> <code codeSystem="local" code="iCHEM8" displayName="CHEM/HEM PROFILE-BEDSIDE" /> <statusCode code="completed" /> <component> <observation moodCode= "EVN" classCode="OBS"> <templateId root="11.30.840.1.557855.08.03.22.4.2 " /> <id nullFlavor="NA" /> <code codeSystem="local" code="K" displayName="POTASSIUM" /> <statusCode code="completed" /> < effectiveTime value="" /> <value unit="mmol/L" xsi:type="PQ " value="3.8" /> <referenceRange> <observationRange> <text>3.5-5.3</text> </observationRange> </ referenceRange> </observation> </component> <component> <observation moodCode="EVN" classCode="OBS"> <templateId root= "840.1.342668.08.03.224.2" /> <id nullFlavor="NA" /> < code codeSystem="local" code="CMETHOD" displayName="METHOD" /> < statusCode code="completed" /> <effectiveTime value="" /> <value unit="" xsi:type="PQ" value="Bedside" /> < referenceRange> <observationRange> <text /> < /observationRange> </referenceRange> </observation> </ component> <component> <observation moodCode="EVN" classCode="OBS"> <templateId root="11.30.840.1.510030.08.03.22.4.2" /> <id nullFlavor="NA" /> <code codeSystem="local" code="GAP" displayName= "ANION GAP" /> <statusCode code="completed" /> <effectiveTime value="" /> <value unit="mmol/L" xsi:type="PQ" value="19" / > <referenceRange> <observationRange> <text>10- 20</text> </observationRange> </referenceRange> </ observation> </component> <component> <observation moodCode= "EVN" classCode="OBS"> <templateId root="216.840.1.111883.10.22.4.2 " /> <id nullFlavor="NA" /> <code codeSystem="local" code= "HMETHOD" displayName="METHOD" /> <statusCode code="completed" /> <effectiveTime value="" /> <value unit="" xsi:type="PQ " value="Bedside" /> <referenceRange> <observationRange> <text /> </observationRange> </referenceRange> </observation> </component> <component> <observation moodCode="EVN" classCode="OBS"> <templateId root= "216.840.1.244273.10.22.4.2" /> <id nullFlavor="NA" /> < code codeSystem="local" code="GLU" displayName="GLUCOSE" /> < statusCode code="completed" /> <effectiveTime value="" /> <value unit="mg/dL" xsi:type="PQ" value="83" /> < referenceRange> <observationRange> <text>70-99</text> </observationRange> </referenceRange> </observation> </component> <component> <observation moodCode="EVN" classCode= "OBS"> <templateId root="16.840.1.472850.10..22.4.2" /> < id nullFlavor="NA" /> <code codeSystem="local" code="BUN" displayName= "BLOOD UREA NITROGEN" /> <statusCode code="completed" /> < effectiveTime value="" /> <value unit="mg/dL" xsi:type="PQ " value="8" /> <referenceRange> <observationRange> <text>7-20</text> </observationRange> </referenceRange > </observation> </component> <component> <observation moodCode="EVN" classCode="OBS"> <templateId root= "216.840.1.455878.10..22.4.2" /> <id nullFlavor="NA" /> < code codeSystem="local" code="CREAT" displayName="CREATININE" /> < statusCode code="completed" /> <effectiveTime value="522143656878" /> <value unit="mg/dL" xsi:type="PQ" value="0.7" /> < referenceRange> <observationRange> <text>0.6-1.0</text> </observationRange> </referenceRange> </observation > </component> <component> <observation moodCode="EVN" classCode="OBS"> <templateId root="216.840.1.876526.10..22.4.2" /> <id nullFlavor="NA" /> <code codeSystem="local" code="HGBT" displayName="HEMOGLOBIN" /> <statusCode code="completed" /> < effectiveTime value="737404091731" /> <value unit="gm/dL" xsi:type="PQ " value="13.9" /> <referenceRange> <observationRange> <text>12.0-16.0</text> </observationRange> </ referenceRange> </observation> </component> <component> <observation moodCode="EVN" classCode="OBS"> <templateId root= "216.840.1.124626...4.2" /> <id nullFlavor="NA" /> < code codeSystem="local" code="HCTT" displayName="HEMATOCRIT" /> < statusCode code="completed" /> <effectiveTime value="" /> <value unit="%" xsi:type="PQ" value="41.0" /> < referenceRange> <observationRange> <text>37.0-47.0</text > </observationRange> </referenceRange> </observation > </component> <component> <observation moodCode="EVN" classCode="OBS"> <templateId root="2.16.840.1.452792.10...4.2" /> <id nullFlavor="NA" /> <code codeSystem="local" code="NA" displayName="SODIUM" /> <statusCode code="completed" /> < effectiveTime value="" /> <value unit="mmol/L" xsi:type="PQ " value="139" /> <referenceRange> <observationRange> <text>135-148</text> </observationRange> </ referenceRange> </observation> </component> <component> <observation moodCode="EVN" classCode="OBS"> <templateId root= "2.16.840.1.731601.10..22.4.2" /> <id nullFlavor="NA" /> < code codeSystem="local" code="CL" displayName="CHLORIDE" /> < statusCode code="completed" /> <effectiveTime value="" /> <value unit="mmol/L" xsi:type="PQ" value="104" /> < referenceRange> <observationRange> <text>98-110</text> </observationRange> </referenceRange> </observation> </component> <component> <observation moodCode="EVN" classCode ="OBS"> <templateId root="840.1.891460.10.4.2" /> < id nullFlavor="NA" /> <code codeSystem="local" code="CO2" displayName= "CARBON DIOXIDE" /> <statusCode code="completed" /> < effectiveTime value="995957537787" /> <value unit="mmol/L" xsi:type="PQ " value="21" /> <referenceRange> <observationRange> <text>21-32</text> </observationRange> </ referenceRange> </observation> </component> <component> <observation moodCode="EVN" classCode="OBS"> <templateId root= "840.1.172517.08.03.22.4.2" /> <id nullFlavor="NA" /> < code codeSystem="local" code="CAION" displayName="CALCIUM IONIZED" /> < statusCode code="completed" /> <effectiveTime value="" /> <value unit="mg/dL" xsi:type="PQ" value="4.7" /> < referenceRange> <observationRange> <text>4.5-5.3</text> </observationRange> </referenceRange> </observation > </component> </organizer> </entry> <entry> <organizer moodCode= "EVN" classCode="BATTERY"> <templateId root="840.1.220152.22.4.1 " /> <id nullFlavor="NA" /> <code codeSystem="local" code="HCGQNT" displayName="HCG QUANT INTACT" /> <statusCode code="completed" /> < component> <observation moodCode="EVN" classCode="OBS"> < templateId root="840.1.582078.08.03.224.2" /> <id nullFlavor="NA " /> <code codeSystem="local" code="HCGQNT" displayName="HCG QUANT INTACT" /> <statusCode code="completed" /> <effectiveTime value="856553236352" /> <value unit="mIU/mL" xsi:type="PQ" value="3906 " /> <interpretationCode codeSystem="local" code="*" /> < referenceRange> <observationRange> <text /> < /observationRange> </referenceRange> </observation> </ component> </organizer> </entry> <entry> <organizer moodCode="EVN" classCode="BATTERY"> <templateId root="11.30.840.1.747634.08.03.224.1" /> <id nullFlavor="NA" /> <code codeSystem="local" code="Z6406" displayName="Cytogenetics" /> <statusCode code="completed" /> < component> <observation moodCode="EVN" classCode="OBS"> < templateId root="11.30.840.1.666156.08.03.22.4.2" /> <id nullFlavor="NA " /> <code codeSystem="local" code="Z6406" displayName="Cytogenetics" / > <statusCode code="completed" /> <effectiveTime value= "075987803432" /> <value unit="" xsi:type="PQ" value="SEE IMAGE" /> <referenceRange> <observationRange> <text /> </observationRange> </referenceRange> </observation> </component> <component> <observation moodCode="EVN" classCode= "OBS"> <templateId root="11.30.840.1.615023.08.03.224.2" /> < id nullFlavor="NA" /> <code codeSystem="local" code="Z6406" displayName ="Cytogenetics" /> <statusCode code="completed" /> < effectiveTime value="309839911682" /> <value unit="NA" xsi:type="PQ" value="SEE IMAGE" /> <referenceRange> <observationRange> <text /> </observationRange> </referenceRange> </observation> </component> </organizer> </entry> <entry> < organizer moodCode="EVN" classCode="BATTERY"> <templateId root= "216.840.1.754885.10...4.1" /> <id nullFlavor="NA" /> <code codeSystem="local" code="CBCWD" displayName="CBC With Platelet and Differential " /> <statusCode code="completed" /> <component> <observation moodCode="EVN" classCode="OBS"> <templateId root= "216.840.1.889423...4.2" /> <id nullFlavor="NA" /> < code codeSystem="local" code="ABASR" displayName="Absolute Basophils" /> <statusCode code="completed" /> <effectiveTime value="540030306767" /> <value unit="10*3" xsi:type="PQ" value="0.03" /> < referenceRange> <observationRange> <text>0.00-0.20</text > </observationRange> </referenceRange> </observation > </component> <component> <observation moodCode="EVN" classCode="OBS"> <templateId root="216.840.1.475425.10..4.2" /> <id nullFlavor="NA" /> <code codeSystem="local" code="AEOSR" displayName="Absolute Eosinophils" /> <statusCode code="completed" /> <effectiveTime value="250302863440" /> <value unit="10*3" xsi: type="PQ" value="0.71" /> <interpretationCode codeSystem="local" code= "*" /> <referenceRange> <observationRange> < text>0.00-0.50</text> </observationRange> </referenceRange> </observation> </component> <component> <observation moodCode="EVN" classCode="OBS"> <templateId root= "16.840.1.394691.08.03.22.4.2" /> <id nullFlavor="NA" /> < code codeSystem="local" code="ALYMR" displayName="Absolute Lymphocytes" /> <statusCode code="completed" /> <effectiveTime value="752614058775 " /> <value unit="10*3" xsi:type="PQ" value="2.35" /> < referenceRange> <observationRange> <text>0.80-3.30</text > </observationRange> </referenceRange> </observation > </component> <component> <observation moodCode="EVN" classCode="OBS"> <templateId root="11.30.840.1.412457.08.03.22.4.2" /> <id nullFlavor="NA" /> <code codeSystem="local" code="AMONR" displayName="Absolute Monocytes" /> <statusCode code="completed" /> <effectiveTime value="104735041171" /> <value unit="10*3" xsi: type="PQ" value="0.41" /> <referenceRange> <observationRange > <text>0.30-1.00</text> </observationRange> </ referenceRange> </observation> </component> <component> <observation moodCode="EVN" classCode="OBS"> <templateId root= "11.30.840.1.209599..4.2" /> <id nullFlavor="NA" /> < code codeSystem="local" code="ASEGR" displayName="Absolute Neutrophils" /> <statusCode code="completed" /> <effectiveTime value="864446263155 " /> <value unit="10*3" xsi:type="PQ" value="3.37" /> < referenceRange> <observationRange> <text>1.90-7.00</text > </observationRange> </referenceRange> </observation > </component> <component> <observation moodCode="EVN" classCode="OBS"> <templateId root="2.16.840.1.210408.08.03.22.4.2" /> <id nullFlavor="NA" /> <code codeSystem="local" code="BASOR" displayName="Basophils" /> <statusCode code="completed" /> < effectiveTime value="857175277040" /> <value unit="%" xsi:type="PQ " value="0" /> <referenceRange> <observationRange> <text>0-2</text> </observationRange> </referenceRange> </observation> </component> <component> <observation moodCode="EVN" classCode="OBS"> <templateId root= "2.16.840.1.911935.10.4.2" /> <id nullFlavor="NA" /> < code codeSystem="local" code="EOSR" displayName="Eosinophils" /> < statusCode code="completed" /> <effectiveTime value="404549762842" /> <value unit="%" xsi:type="PQ" value="10" /> < interpretationCode codeSystem="local" code="*" /> <referenceRange> <observationRange> <text>0-4</text> </ observationRange> </referenceRange> </observation> </ component> <component> <observation moodCode="EVN" classCode="OBS"> <templateId root="216.840.1.746976.10.22.4.2" /> <id nullFlavor="NA" /> <code codeSystem="local" code="HCT" displayName="HCT " /> <statusCode code="completed" /> <effectiveTime value= "227940401486" /> <value unit="%" xsi:type="PQ" value="33.8" /> <interpretationCode codeSystem="local" code="*" /> < referenceRange> <observationRange> <text>37.0-47.0</text > </observationRange> </referenceRange> </observation > </component> <component> <observation moodCode="EVN" classCode="OBS"> <templateId root="216.840.1.100939.08.03.224.2" /> <id nullFlavor="NA" /> <code codeSystem="local" code="HGB" displayName="HGB" /> <statusCode code="completed" /> < effectiveTime value="895090700644" /> <value unit="g/dL" xsi:type="PQ" value="11.2" /> <interpretationCode codeSystem="local" code="*" /> <referenceRange> <observationRange> <text>12.0- 16.0</text> </observationRange> </referenceRange> </ observation> </component> <component> <observation moodCode= "EVN" classCode="OBS"> <templateId root="216.840.1.865047.10.22.4.2 " /> <id nullFlavor="NA" /> <code codeSystem="local" code= "IMGA" displayName="Immature Granulocytes" /> <statusCode code= "completed" /> <effectiveTime value="284365004383" /> <value unit="%" xsi:type="PQ" value="0.1" /> <referenceRange> < observationRange> <text>0.0-1.0</text> </ observationRange> </referenceRange> </observation> </ component> <component> <observation moodCode="EVN" classCode="OBS"> <templateId root="16.840.1.781797.10.4.2" /> <id nullFlavor="NA" /> <code codeSystem="local" code="LYMPR" displayName= "Lymphocytes" /> <statusCode code="completed" /> < effectiveTime value="176737543548" /> <value unit="%" xsi:type="PQ " value="34" /> <referenceRange> <observationRange> <text>20-46</text> </observationRange> </ referenceRange> </observation> </component> <component> <observation moodCode="EVN" classCode="OBS"> <templateId root= "11.30.840.1.170132.10.4.2" /> <id nullFlavor="NA" /> < code codeSystem="local" code="MCH" displayName="MCH" /> <statusCode code="completed" /> <effectiveTime value="487513619949" /> < value unit="pg" xsi:type="PQ" value="30.6" /> <referenceRange> <observationRange> <text>27.0-32.0</text> </ observationRange> </referenceRange> </observation> </ component> <component> <observation moodCode="EVN" classCode="OBS"> <templateId root="16.840.1.752624.10.2022.4.2" /> <id nullFlavor="NA" /> <code codeSystem="local" code="MCHC" displayName= "MCHC" /> <statusCode code="completed" /> <effectiveTime value ="363074630525" /> <value unit="g/dL" xsi:type="PQ" value="33.1" /> <referenceRange> <observationRange> <text>32.0- 36.0</text> </observationRange> </referenceRange> </ observation> </component> <component> <observation moodCode= "EVN" classCode="OBS"> <templateId root="11.30.840.1.864554.10.20.22.4.2 " /> <id nullFlavor="NA" /> <code codeSystem="local" code="MCV " displayName="MCV" /> <statusCode code="completed" /> < effectiveTime value="183913071629" /> <value unit="fL" xsi:type="PQ" value="92.3" /> <referenceRange> <observationRange> <text>82.0-99.0</text> </observationRange> </ referenceRange> </observation> </component> <component> <observation moodCode="EVN" classCode="OBS"> <templateId root= "11.30.840.1.736586.10.20.22.4.2" /> <id nullFlavor="NA" /> < code codeSystem="local" code="MONOR" displayName="Monocytes" /> < statusCode code="completed" /> <effectiveTime value="486719391352" /> <value unit="%" xsi:type="PQ" value="6" /> <referenceRange > <observationRange> <text>4-11</text> </ observationRange> </referenceRange> </observation> </ component> <component> <observation moodCode="EVN" classCode="OBS"> <templateId root="11.30.830.1.043909.10..4.2" /> <id nullFlavor="NA" /> <code codeSystem="local" code="MPV" displayName="MPV " /> <statusCode code="completed" /> <effectiveTime value= "440134789968" /> <value unit="fL" xsi:type="PQ" value="9.9" /> <referenceRange> <observationRange> <text>9.4-12.4</ text> </observationRange> </referenceRange> </ observation> </component> <component> <observation moodCode= "EVN" classCode="OBS"> <templateId root="11.30.840.1.440680.08.03.22.4.2 " /> <id nullFlavor="NA" /> <code codeSystem="local" code= "SEGR" displayName="Neutrophils" /> <statusCode code="completed" /> <effectiveTime value="155668513612" /> <value unit="%" xsi: type="PQ" value="49" /> <interpretationCode codeSystem="local" code="* " /> <referenceRange> <observationRange> <text> 51-75</text> </observationRange> </referenceRange> </ observation> </component> <component> <observation moodCode= "EVN" classCode="OBS"> <templateId root="11.30.840.1.360816.10..4.2 " /> <id nullFlavor="NA" /> <code codeSystem="local" code="PLT " displayName="Platelet Count" /> <statusCode code="completed" /> <effectiveTime value="450454938946" /> <value unit="K/uL" xsi:type ="PQ" value="308" /> <referenceRange> <observationRange> <text>150-400</text> </observationRange> </ referenceRange> </observation> </component> <component> <observation moodCode="EVN" classCode="OBS"> <templateId root= "216.840.1.706428.10.2022.4.2" /> <id nullFlavor="NA" /> < code codeSystem="local" code="RBC" displayName="RBC" /> <statusCode code="completed" /> <effectiveTime value="116807204856" /> < value unit="10*6/uL" xsi:type="PQ" value="3.66" /> <interpretationCode codeSystem="local" code="*" /> <referenceRange> < observationRange> <text>4.00-5.20</text> </ observationRange> </referenceRange> </observation> </ component> <component> <observation moodCode="EVN" classCode="OBS"> <templateId root="16.840.1.697061.08.03.22.4.2" /> <id nullFlavor="NA" /> <code codeSystem="local" code="RDW" displayName="RDW " /> <statusCode code="completed" /> <effectiveTime value= "653281606964" /> <value unit="%" xsi:type="PQ" value="12.8" /> <referenceRange> <observationRange> <text>11.5- 14.5</text> </observationRange> </referenceRange> </ observation> </component> <component> <observation moodCode= "EVN" classCode="OBS"> <templateId root="216.840.1.814778.10.2022.4.2 " /> <id nullFlavor="NA" /> <code codeSystem="local" code= "WBCIR" displayName="WBC" /> <statusCode code="completed" /> < effectiveTime value="363669365889" /> <value unit="K/uL" xsi:type="PQ" value="6.9" /> <referenceRange> <observationRange> <text>4.8-10.8</text> </observationRange> </ referenceRange> </observation> </component> </organizer> </entry > <entry> <organizer moodCode="EVN" classCode="BATTERY"> <templateId root="11.30.840.1.787568.10..22.4.1" /> <id nullFlavor="NA" /> <code codeSystem="local" code="HCGQ" displayName="HCG Quantitative" /> < statusCode code="completed" /> <component> <observation moodCode= "EVN" classCode="OBS"> <templateId root="11.30.840.1.480489.10..22.4.2 " /> <id nullFlavor="NA" /> <code codeSystem="local" code= "HCGQ" displayName="HCG Quantitative" /> <statusCode code="completed" / > <effectiveTime value="700229033608" /> <value unit="mIU/mL" xsi:type="PQ" value="1174" /> <referenceRange> < observationRange> <text /> </observationRange> </referenceRange> </observation> </component> </organizer> </ entry> <entry> <organizer moodCode="EVN" classCode="BATTERY"> < templateId root="11.30.840.1.242652.10..22.4.1" /> <id nullFlavor="NA" /> <code codeSystem="local" code="PTPTT" displayName="PTT/PT (INR)" /> < statusCode code="completed" /> <component> <observation moodCode= "EVN" classCode="OBS"> <templateId root="11.30.840.1.291004.1022.4.2 " /> <id nullFlavor="NA" /> <code codeSystem="local" code="INR " displayName="INR" /> <statusCode code="completed" /> < effectiveTime value="543948142392" /> <value unit="NA" xsi:type="PQ" value="1.1" /> <referenceRange> <observationRange> <text>0.9-1.2</text> </observationRange> </ referenceRange> </observation> </component> <component> <observation moodCode="EVN" classCode="OBS"> <templateId root= "840.1.888178.08.03.22.4.2" /> <id nullFlavor="NA" /> < code codeSystem="local" code="PTT" displayName="PTT" /> <statusCode code="completed" /> <effectiveTime value="357192338621" /> < value unit="seconds" xsi:type="PQ" value="30.9" /> <referenceRange> <observationRange> <text>25.0-35.0</text> </ observationRange> </referenceRange> </observation> </ component> </organizer> </entry> <entry> <organizer moodCode="EVN" classCode="BATTERY"> <templateId root="840.1.927143.22.4.1" /> <id nullFlavor="NA" /> <code codeSystem="local" code="CBCND" displayName="CBC With Platelet No Differential" /> <statusCode code= "completed" /> <component> <observation moodCode="EVN" classCode= "OBS"> <templateId root="840.1.307727.1022.4.2" /> < id nullFlavor="NA" /> <code codeSystem="local" code="HCT" displayName= "HCT" /> <statusCode code="completed" /> <effectiveTime value= "" /> <value unit="%" xsi:type="PQ" value="29.3" /> <interpretationCode codeSystem="local" code="*" /> < referenceRange> <observationRange> <text>37.0-47.0</text > </observationRange> </referenceRange> </observation > </component> <component> <observation moodCode="EVN" classCode="OBS"> <templateId root="2.16.840.1.148923.10.20.22.4.2" /> <id nullFlavor="NA" /> <code codeSystem="local" code="HGB" displayName="HGB" /> <statusCode code="completed" /> < effectiveTime value="" /> <value unit="g/dL" xsi:type="PQ" value="9.5" /> <interpretationCode codeSystem="local" code="*" /> <referenceRange> <observationRange> <text>12.0-16.0 </text> </observationRange> </referenceRange> </ observation> </component> <component> <observation moodCode= "EVN" classCode="OBS"> <templateId root="216.840.1.495926.10.20.22.4.2 " /> <id nullFlavor="NA" /> <code codeSystem="local" code="MCH " displayName="MCH" /> <statusCode code="completed" /> < effectiveTime value="" /> <value unit="pg" xsi:type="PQ" value="30.5" /> <referenceRange> <observationRange> <text>27.0-32.0</text> </observationRange> </ referenceRange> </observation> </component> <component> <observation moodCode="EVN" classCode="OBS"> <templateId root= "16.840.1.858162.102022.4.2" /> <id nullFlavor="NA" /> < code codeSystem="local" code="MCHC" displayName="MCHC" /> <statusCode code="completed" /> <effectiveTime value="" /> < value unit="g/dL" xsi:type="PQ" value="32.4" /> <referenceRange> <observationRange> <text>32.0-36.0</text> </ observationRange> </referenceRange> </observation> </ component> <component> <observation moodCode="EVN" classCode="OBS"> <templateId root="11.30.840.1.401106.1022.4.2" /> <id nullFlavor="NA" /> <code codeSystem="local" code="MCV" displayName="MCV " /> <statusCode code="completed" /> <effectiveTime value= "" /> <value unit="fL" xsi:type="PQ" value="94.2" /> <referenceRange> <observationRange> <text>82.0-99.0< /text> </observationRange> </referenceRange> </ observation> </component> <component> <observation moodCode= "EVN" classCode="OBS"> <templateId root="16.840.1.686168.10.2022.4.2 " /> <id nullFlavor="NA" /> <code codeSystem="local" code="MPV " displayName="MPV" /> <statusCode code="completed" /> < effectiveTime value="" /> <value unit="fL" xsi:type="PQ" value="9.4" /> <referenceRange> <observationRange> <text>9.4-12.4</text> </observationRange> </ referenceRange> </observation> </component> <component> <observation moodCode="EVN" classCode="OBS"> <templateId root= "11.30.840.1.884890.10.20.22.4.2" /> <id nullFlavor="NA" /> < code codeSystem="local" code="PLT" displayName="Platelet Count" /> < statusCode code="completed" /> <effectiveTime value="639925830859" /> <value unit="K/uL" xsi:type="PQ" value="239" /> < referenceRange> <observationRange> <text>150-400</text> </observationRange> </referenceRange> </observation > </component> <component> <observation moodCode="EVN" classCode="OBS"> <templateId root="11.30.840.1.163890.10.2022.4.2" /> <id nullFlavor="NA" /> <code codeSystem="local" code="RBC" displayName="RBC" /> <statusCode code="completed" /> < effectiveTime value="030334472893" /> <value unit="10*6/uL" xsi:type= "PQ" value="3.11" /> <interpretationCode codeSystem="local" code="*" / > <referenceRange> <observationRange> <text> 4.00-5.20</text> </observationRange> </referenceRange> </observation> </component> <component> <observation moodCode="EVN" classCode="OBS"> <templateId root= "11.30.840.1.519788.10.20.22.4.2" /> <id nullFlavor="NA" /> < code codeSystem="local" code="RDW" displayName="RDW" /> <statusCode code="completed" /> <effectiveTime value="050495276153" /> < value unit="%" xsi:type="PQ" value="12.9" /> <referenceRange> <observationRange> <text>11.5-14.5</text> </ observationRange> </referenceRange> </observation> </ component> <component> <observation moodCode="EVN" classCode="OBS"> <templateId root="11.30.840.1.549631.10.22.4.2" /> <id nullFlavor="NA" /> <code codeSystem="local" code="WBCIR" displayName= "WBC" /> <statusCode code="completed" /> <effectiveTime value= "893731175680" /> <value unit="K/uL" xsi:type="PQ" value="5.4" /> <referenceRange> <observationRange> <text>4.8-10.8< /text> </observationRange> </referenceRange> </ observation> </component> </organizer> </entry> <entry> <organizer moodCode="EVN" classCode="BATTERY"> <templateId root= "11.30.840.1.373186..22.4.1" /> <id nullFlavor="NA" /> <code codeSystem="local" code="CBCND" displayName="CBC With Platelet No Differential" /> <statusCode code="completed" /> <component> <observation moodCode="EVN" classCode="OBS"> <templateId root= "11.30.840.1.911635.22.4.2" /> <id nullFlavor="NA" /> < code codeSystem="local" code="HCT" displayName="HCT" /> <statusCode code="completed" /> <effectiveTime value="" /> < value unit="%" xsi:type="PQ" value="28.9" /> <interpretationCode codeSystem="local" code="*" /> <referenceRange> < observationRange> <text>37.0-47.0</text> </ observationRange> </referenceRange> </observation> </ component> <component> <observation moodCode="EVN" classCode="OBS"> <templateId root="11.30.840.1.626319.10.20.22.4.2" /> <id nullFlavor="NA" /> <code codeSystem="local" code="HGB" displayName="HGB " /> <statusCode code="completed" /> <effectiveTime value= "" /> <value unit="g/dL" xsi:type="PQ" value="9.4" /> <interpretationCode codeSystem="local" code="*" /> <referenceRange > <observationRange> <text>12.0-16.0</text> < /observationRange> </referenceRange> </observation> </ component> <component> <observation moodCode="EVN" classCode="OBS"> <templateId root="11.30.840.1.058451.10.20.22.4.2" /> <id nullFlavor="NA" /> <code codeSystem="local" code="MCH" displayName="MCH " /> <statusCode code="completed" /> <effectiveTime value= "" /> <value unit="pg" xsi:type="PQ" value="30.4" /> <referenceRange> <observationRange> <text>27.0-32.0< /text> </observationRange> </referenceRange> </ observation> </component> <component> <observation moodCode= "EVN" classCode="OBS"> <templateId root="840.1.371406.10.22.4.2 " /> <id nullFlavor="NA" /> <code codeSystem="local" code= "MCHC" displayName="MCHC" /> <statusCode code="completed" /> < effectiveTime value="" /> <value unit="g/dL" xsi:type="PQ" value="32.5" /> <referenceRange> <observationRange> <text>32.0-36.0</text> </observationRange> </ referenceRange> </observation> </component> <component> <observation moodCode="EVN" classCode="OBS"> <templateId root= "216.840.1.229066.08.03.22.4.2" /> <id nullFlavor="NA" /> < code codeSystem="local" code="MCV" displayName="MCV" /> <statusCode code="completed" /> <effectiveTime value="" /> < value unit="fL" xsi:type="PQ" value="93.5" /> <referenceRange> <observationRange> <text>82.0-99.0</text> </ observationRange> </referenceRange> </observation> </ component> <component> <observation moodCode="EVN" classCode="OBS"> <templateId root="216.840.1.549187.08.03.22.4.2" /> <id nullFlavor="NA" /> <code codeSystem="local" code="MPV" displayName="MPV " /> <statusCode code="completed" /> <effectiveTime value= "" /> <value unit="fL" xsi:type="PQ" value="9.7" /> <referenceRange> <observationRange> <text>9.4-12.4</ text> </observationRange> </referenceRange> </ observation> </component> <component> <observation moodCode= "EVN" classCode="OBS"> <templateId root="11.30.840.1.038150.10..22.4.2 " /> <id nullFlavor="NA" /> <code codeSystem="local" code="PLT " displayName="Platelet Count" /> <statusCode code="completed" /> <effectiveTime value="" /> <value unit="K/uL" xsi:type ="PQ" value="225" /> <referenceRange> <observationRange> <text>150-400</text> </observationRange> </ referenceRange> </observation> </component> <component> <observation moodCode="EVN" classCode="OBS"> <templateId root= "16.840.1.078630.08.03.22.4.2" /> <id nullFlavor="NA" /> < code codeSystem="local" code="RBC" displayName="RBC" /> <statusCode code="completed" /> <effectiveTime value="" /> < value unit="10*6/uL" xsi:type="PQ" value="3.09" /> <interpretationCode codeSystem="local" code="*" /> <referenceRange> < observationRange> <text>4.00-5.20</text> </ observationRange> </referenceRange> </observation> </ component> <component> <observation moodCode="EVN" classCode="OBS"> <templateId root="11.30.840.1.947500.22.4.2" /> <id nullFlavor="NA" /> <code codeSystem="local" code="RDW" displayName="RDW " /> <statusCode code="completed" /> <effectiveTime value= "" /> <value unit="%" xsi:type="PQ" value="12.6" /> <referenceRange> <observationRange> <text>11.5- 14.5</text> </observationRange> </referenceRange> </ observation> </component> <component> <observation moodCode= "EVN" classCode="OBS"> <templateId root="11.30.840.1.681016.1022.4.2 " /> <id nullFlavor="NA" /> <code codeSystem="local" code= "WBCIR" displayName="WBC" /> <statusCode code="completed" /> < effectiveTime value="315945412170" /> <value unit="K/uL" xsi:type="PQ" value="5.0" /> <referenceRange> <observationRange> <text>4.8-10.8</text> </observationRange> </ referenceRange> </observation> </component> </organizer> </entry > <entry> <organizer moodCode="EVN" classCode="BATTERY"> <templateId root="840.1.311412.22.4.1" /> <id nullFlavor="NA" /> <code codeSystem="local" code="GLUN" displayName="Glucose NPT" /> <statusCode code="completed" /> <component> <observation moodCode="EVN" classCode="OBS"> <templateId root="11.30.840.1.875365.10.2022.4.2" /> <id nullFlavor="NA" /> <code codeSystem="local" code="GLUN" displayName="Glucose NPT" /> <statusCode code="completed" /> <effectiveTime value="124995120910" /> <value unit="mg/dL" xsi:type="PQ " value="84" /> <referenceRange> <observationRange> <text>70-100</text> </observationRange> </ referenceRange> </observation> </component> </organizer> </entry > <entry> <organizer moodCode="EVN" classCode="BATTERY"> <templateId root="2.16.840.1.639326.10..22.4.1" /> <id nullFlavor="NA" /> <code codeSystem="local" code="BMP" displayName="Basic Metabolic Panel (BMP)" /> <statusCode code="completed" /> <component> <observation moodCode= "EVN" classCode="OBS"> <templateId root="2.16.840.1.805186...4.2 " /> <id nullFlavor="NA" /> <code codeSystem="local" code= "AGAP" displayName="Anion Gap" /> <statusCode code="completed" /> <effectiveTime value="202872174316" /> <value unit="NA" xsi:type= "PQ" value="9" /> <referenceRange> <observationRange> <text>3-20</text> </observationRange> </ referenceRange> </observation> </component> <component> <observation moodCode="EVN" classCode="OBS"> <templateId root= "216.840.1.043460...4.2" /> <id nullFlavor="NA" /> < code codeSystem="local" code="BUN" displayName="BUN" /> <statusCode code="completed" /> <effectiveTime value="922618114102" /> < value unit="mg/dL" xsi:type="PQ" value="8" /> <referenceRange> <observationRange> <text>4-20</text> </ observationRange> </referenceRange> </observation> </ component> <component> <observation moodCode="EVN" classCode="OBS"> <templateId root="16.840.1.431708.10.20.22.4.2" /> <id nullFlavor="NA" /> <code codeSystem="local" code="CA" displayName= "Calcium" /> <statusCode code="completed" /> <effectiveTime value="673308985681" /> <value unit="mg/dL" xsi:type="PQ" value="8.8" / > <referenceRange> <observationRange> <text>8.6 -10.0</text> </observationRange> </referenceRange> </ observation> </component> <component> <observation moodCode= "EVN" classCode="OBS"> <templateId root="11.30.840.1.639544.10..22.4.2 " /> <id nullFlavor="NA" /> <code codeSystem="local" code="CL " displayName="Chloride" /> <statusCode code="completed" /> < effectiveTime value="203485398693" /> <value unit="mEq/L" xsi:type="PQ " value="108" /> <referenceRange> <observationRange> <text>99-109</text> </observationRange> </ referenceRange> </observation> </component> <component> <observation moodCode="EVN" classCode="OBS"> <templateId root= "11.30.840.1.217002.10.20.22.4.2" /> <id nullFlavor="NA" /> < code codeSystem="local" code="CO2" displayName="CO2" /> <statusCode code="completed" /> <effectiveTime value="870021045707" /> < value unit="mEq/L" xsi:type="PQ" value="22" /> <referenceRange> <observationRange> <text>22-32</text> </ observationRange> </referenceRange> </observation> </ component> <component> <observation moodCode="EVN" classCode="OBS"> <templateId root="216.840.1.648185.10..4.2" /> <id nullFlavor="NA" /> <code codeSystem="local" code="CREAT" displayName= "Creatinine" /> <statusCode code="completed" /> < effectiveTime value="" /> <value unit="mg/dL" xsi:type="PQ " value="0.77" /> <referenceRange> <observationRange> <text>0.44-1.03</text> </observationRange> </ referenceRange> </observation> </component> <component> <observation moodCode="EVN" classCode="OBS"> <templateId root= "11.30.840.1.063141.08.03.22.4.2" /> <id nullFlavor="NA" /> < code codeSystem="local" code="GLU" displayName="Glucose" /> < statusCode code="completed" /> <effectiveTime value="" /> <value unit="mg/dL" xsi:type="PQ" value="104" /> < interpretationCode codeSystem="local" code="*" /> <referenceRange> <observationRange> <text>70-100</text> </ observationRange> </referenceRange> </observation> </ component> <component> <observation moodCode="EVN" classCode="OBS"> <templateId root="11.30.840.1.076327...4.2" /> <id nullFlavor="NA" /> <code codeSystem="local" code="K" displayName= "Potassium" /> <statusCode code="completed" /> <effectiveTime value="" /> <value unit="mEq/L" xsi:type="PQ" value="3.6" / > <referenceRange> <observationRange> <text>3.6 -5.1</text> </observationRange> </referenceRange> </ observation> </component> <component> <observation moodCode= "EVN" classCode="OBS"> <templateId root="216.840.1.364352.10...4.2 " /> <id nullFlavor="NA" /> <code codeSystem="local" code="NA " displayName="Sodium" /> <statusCode code="completed" /> < effectiveTime value="037515579334" /> <value unit="mEq/L" xsi:type="PQ " value="139" /> <referenceRange> <observationRange> <text>136-144</text> </observationRange> </ referenceRange> </observation> </component> </organizer> </entry > <entry> <organizer moodCode="EVN" classCode="BATTERY"> <templateId root="216.840.1.923550.10..22.4.1" /> <id nullFlavor="NA" /> <code codeSystem="local" code="GFR" displayName="eGFR" /> <statusCode code= "completed" /> <component> <observation moodCode="EVN" classCode= "OBS"> <templateId root="216.840.1.622709.10..22.4.2" /> < id nullFlavor="NA" /> <code codeSystem="local" code="GFR" displayName= "eGFR" /> <statusCode code="completed" /> <effectiveTime value ="231584330733" /> <value unit="NA" xsi:type="PQ" value=">60" /> <referenceRange> <observationRange> <text>>60< /text> </observationRange> </referenceRange> </ observation> </component> </organizer> </entry> <entry> <organizer moodCode="EVN" classCode="BATTERY"> <templateId root= "216.840.1.516109.10..22.4.1" /> <id nullFlavor="NA" /> <code codeSystem="local" code="UA" displayName="Urinalysis with reflex microscopic" / > <statusCode code="completed" /> <component> <observation moodCode="EVN" classCode="OBS"> <templateId root= "2.16.840.1.064887.10..4.2" /> <id nullFlavor="NA" /> < code codeSystem="local" code="UAPP" displayName="Appearance" /> < statusCode code="completed" /> <effectiveTime value="980700654879" /> <value unit="NA" xsi:type="PQ" value="Cloudy" /> < interpretationCode codeSystem="local" code="*" /> <referenceRange> <observationRange> <text /> </observationRange> </referenceRange> </observation> </component> < component> <observation moodCode="EVN" classCode="OBS"> < templateId root="2.16.840.1.407277...4.2" /> <id nullFlavor="NA " /> <code codeSystem="local" code="UBIL" displayName="Bilirubin" /> <statusCode code="completed" /> <effectiveTime value= "536306706820" /> <value unit="NA" xsi:type="PQ" value="Negative" /> <referenceRange> <observationRange> <text> Negative</text> </observationRange> </referenceRange> </observation> </component> <component> <observation moodCode ="EVN" classCode="OBS"> <templateId root= "16.840.1.182666.10..4.2" /> <id nullFlavor="NA" /> < code codeSystem="local" code="UBLD" displayName="Blood" /> <statusCode code="completed" /> <effectiveTime value="" /> < value unit="NA" xsi:type="PQ" value="Negative" /> <referenceRange> <observationRange> <text>Negative</text> </ observationRange> </referenceRange> </observation> </ component> <component> <observation moodCode="EVN" classCode="OBS"> <templateId root="16.840.1.624890.08.03.22.4.2" /> <id nullFlavor="NA" /> <code codeSystem="local" code="UCOLR" displayName= "Color" /> <statusCode code="completed" /> <effectiveTime value="" /> <value unit="NA" xsi:type="PQ" value="Yellow" / > <referenceRange> <observationRange> <text /> </observationRange> </referenceRange> </observation > </component> <component> <observation moodCode="EVN" classCode="OBS"> <templateId root="11.30.840.1.925288.10.4.2" /> <id nullFlavor="NA" /> <code codeSystem="local" code="UGLU" displayName="Glucose, Urine" /> <statusCode code="completed" /> <effectiveTime value="" /> <value unit="" xsi:type="PQ" value="Negative" /> <referenceRange> <observationRange> <text>Negative</text> </observationRange> </ referenceRange> </observation> </component> <component> <observation moodCode="EVN" classCode="OBS"> <templateId root= "216.840.1.481299.10..4.2" /> <id nullFlavor="NA" /> < code codeSystem="local" code="UKET" displayName="Ketones" /> < statusCode code="completed" /> <effectiveTime value="" /> <value unit="" xsi:type="PQ" value="Negative" /> < referenceRange> <observationRange> <text>Negative</text > </observationRange> </referenceRange> </observation > </component> <component> <observation moodCode="EVN" classCode="OBS"> <templateId root="16.840.1.182242...4.2" /> <id nullFlavor="NA" /> <code codeSystem="local" code="ULEU" displayName="Leukocyte Esterase" /> <statusCode code="completed" /> <effectiveTime value="" /> <value unit="NA" xsi:type ="PQ" value="Negative" /> <referenceRange> <observationRange > <text>Negative</text> </observationRange> </ referenceRange> </observation> </component> <component> <observation moodCode="EVN" classCode="OBS"> <templateId root= "16.840.1.622013.10..4.2" /> <id nullFlavor="NA" /> < code codeSystem="local" code="UNIT" displayName="Nitrites" /> < statusCode code="completed" /> <effectiveTime value="" /> <value unit="NA" xsi:type="PQ" value="Negative" /> < referenceRange> <observationRange> <text>Negative</text > </observationRange> </referenceRange> </observation > </component> <component> <observation moodCode="EVN" classCode="OBS"> <templateId root="216.840.1.133026.08.03.22.4.2" /> <id nullFlavor="NA" /> <code codeSystem="local" code="UPH" displayName="pH" /> <statusCode code="completed" /> < effectiveTime value="" /> <value unit="NA" xsi:type="PQ" value="7.0" /> <referenceRange> <observationRange> <text>5.0-8.0</text> </observationRange> </ referenceRange> </observation> </component> <component> <observation moodCode="EVN" classCode="OBS"> <templateId root= "11.30.840.1.988450.08.03.22.4.2" /> <id nullFlavor="NA" /> < code codeSystem="local" code="UPRO" displayName="Protein" /> < statusCode code="completed" /> <effectiveTime value="" /> <value unit="NA" xsi:type="PQ" value="Negative" /> < referenceRange> <observationRange> <text>Negative</text > </observationRange> </referenceRange> </observation > </component> <component> <observation moodCode="EVN" classCode="OBS"> <templateId root="16.840.1.003745.10.4.2" /> <id nullFlavor="NA" /> <code codeSystem="local" code="USPG" displayName="Specific [place]" /> <statusCode code="completed" /> <effectiveTime value="960948529555" /> <value unit="NA" xsi:type= "PQ" value="1.020" /> <referenceRange> <observationRange> <text>1.003-1.030</text> </observationRange> </ referenceRange> </observation> </component> <component> <observation moodCode="EVN" classCode="OBS"> <templateId root= "16.840.1.106784.10..22.4.2" /> <id nullFlavor="NA" /> < code codeSystem="local" code="UTYP" displayName="UA Collection type" /> <statusCode code="completed" /> <effectiveTime value="726530125905" / > <value unit="NA" xsi:type="PQ" value="Clean Catch" /> < referenceRange> <observationRange> <text /> < /observationRange> </referenceRange> </observation> </ component> <component> <observation moodCode="EVN" classCode="OBS"> <templateId root="11.30.840.1.820166.10..4.2" /> <id nullFlavor="NA" /> <code codeSystem="local" code="UURO" displayName= "Urobilinogen" /> <statusCode code="completed" /> < effectiveTime value="940969454025" /> <value unit="mg/dL" xsi:type="PQ " value="Negative" /> <referenceRange> <observationRange> <text><1.0</text> </observationRange> </ referenceRange> </observation> </component> </organizer> </entry > <entry> <organizer moodCode="EVN" classCode="BATTERY"> <templateId root="11.30.840.1.790330.10...4.1" /> <id nullFlavor="NA" /> <code codeSystem="local" code="PREGN" displayName=" Screen, Urine NPT" /> <statusCode code="completed" /> <component> <observation moodCode ="EVN" classCode="OBS"> <templateId root= "216.840.1.178276.10..22.4.2" /> <id nullFlavor="NA" /> < code codeSystem="local" code="PREGN" displayName=" Screen, Urine NPT" / > <statusCode code="completed" /> <effectiveTime value= "224122335440" /> <value unit="NA" xsi:type="PQ" value="Negative" /> <referenceRange> <observationRange> <text /> </observationRange> </referenceRange> </observation> </component> </organizer> </entry> <entry> <organizer moodCode="EVN " classCode="BATTERY"> <templateId root="216.840.1.428067.10..22.4.1" / > <id nullFlavor="NA" /> <code codeSystem="local" code="CBCWD" displayName="CBC With Platelet and Differential" /> <statusCode code= "completed" /> <component> <observation moodCode="EVN" classCode= "OBS"> <templateId root="2.16.840.1.266868.10.20.22.4.2" /> < id nullFlavor="NA" /> <code codeSystem="local" code="ABASR" displayName ="Absolute Basophils" /> <statusCode code="completed" /> < effectiveTime value="313909645963" /> <value unit="10*3/uL" xsi:type= "PQ" value="0.03" /> <referenceRange> <observationRange> <text>0.00-0.20</text> </observationRange> </ referenceRange> </observation> </component> <component> <observation moodCode="EVN" classCode="OBS"> <templateId root= "216.840.1.160307.10.2022.4.2" /> <id nullFlavor="NA" /> < code codeSystem="local" code="AEOSR" displayName="Absolute Eosinophils" /> <statusCode code="completed" /> <effectiveTime value="361529262437 " /> <value unit="10*3/uL" xsi:type="PQ" value="0.31" /> < referenceRange> <observationRange> <text>0.00-0.50</text > </observationRange> </referenceRange> </observation > </component> <component> <observation moodCode="EVN" classCode="OBS"> <templateId root="16.840.1.206815...4.2" /> <id nullFlavor="NA" /> <code codeSystem="local" code="ALYMR" displayName="Absolute Lymphocytes" /> <statusCode code="completed" /> <effectiveTime value="519172133271" /> <value unit="10*3/uL" xsi:type="PQ" value="1.67" /> <referenceRange> < observationRange> <text>0.80-3.30</text> </ observationRange> </referenceRange> </observation> </ component> <component> <observation moodCode="EVN" classCode="OBS"> <templateId root="11.30.840.1.336585.10.20.22.4.2" /> <id nullFlavor="NA" /> <code codeSystem="local" code="AMONR" displayName= "Absolute Monocytes" /> <statusCode code="completed" /> < effectiveTime value="362684177189" /> <value unit="10*3/uL" xsi:type= "PQ" value="0.41" /> <referenceRange> <observationRange> <text>0.30-1.00</text> </observationRange> </ referenceRange> </observation> </component> <component> <observation moodCode="EVN" classCode="OBS"> <templateId root= "16.840.1.802005.10.2022.4.2" /> <id nullFlavor="NA" /> < code codeSystem="local" code="ASEGR" displayName="Absolute Neutrophils" /> <statusCode code="completed" /> <effectiveTime value="480594338628 " /> <value unit="10*3/uL" xsi:type="PQ" value="3.14" /> < referenceRange> <observationRange> <text>1.90-7.00</text > </observationRange> </referenceRange> </observation > </component> <component> <observation moodCode="EVN" classCode="OBS"> <templateId root="11.30.840.1.448577.08.03.22.4.2" /> <id nullFlavor="NA" /> <code codeSystem="local" code="BASOR" displayName="Basophils" /> <statusCode code="completed" /> < effectiveTime value="950180488586" /> <value unit="%" xsi:type="PQ " value="1" /> <referenceRange> <observationRange> <text>0-2</text> </observationRange> </referenceRange> </observation> </component> <component> <observation moodCode="EVN" classCode="OBS"> <templateId root= "11.30.840.1.136982.10..4.2" /> <id nullFlavor="NA" /> < code codeSystem="local" code="EOSR" displayName="Eosinophils" /> < statusCode code="completed" /> <effectiveTime value="300992702553" /> <value unit="%" xsi:type="PQ" value="6" /> < interpretationCode codeSystem="local" code="*" /> <referenceRange> <observationRange> <text>0-4</text> </ observationRange> </referenceRange> </observation> </ component> <component> <observation moodCode="EVN" classCode="OBS"> <templateId root="2.16.840.1.724535.10.2022.4.2" /> <id nullFlavor="NA" /> <code codeSystem="local" code="HCT" displayName="HCT " /> <statusCode code="completed" /> <effectiveTime value= "646081162516" /> <value unit="%" xsi:type="PQ" value="35.6" /> <interpretationCode codeSystem="local" code="*" /> < referenceRange> <observationRange> <text>37.0-47.0</text > </observationRange> </referenceRange> </observation > </component> <component> <observation moodCode="EVN" classCode="OBS"> <templateId root="216.840.1.285591.10...4.2" /> <id nullFlavor="NA" /> <code codeSystem="local" code="HGB" displayName="HGB" /> <statusCode code="completed" /> < effectiveTime value="259079618014" /> <value unit="g/dL" xsi:type="PQ" value="11.6" /> <interpretationCode codeSystem="local" code="*" /> <referenceRange> <observationRange> <text>12.0- 16.0</text> </observationRange> </referenceRange> </ observation> </component> <component> <observation moodCode= "EVN" classCode="OBS"> <templateId root="16.840.1.820607.10..22.4.2 " /> <id nullFlavor="NA" /> <code codeSystem="local" code= "IMGA" displayName="Immature Granulocytes" /> <statusCode code= "completed" /> <effectiveTime value="251594858106" /> <value unit="%" xsi:type="PQ" value="0.4" /> <referenceRange> < observationRange> <text>0.0-1.0</text> </ observationRange> </referenceRange> </observation> </ component> <component> <observation moodCode="EVN" classCode="OBS"> <templateId root="16.840.1.421187.10..4.2" /> <id nullFlavor="NA" /> <code codeSystem="local" code="LYMPR" displayName= "Lymphocytes" /> <statusCode code="completed" /> < effectiveTime value="895130280006" /> <value unit="%" xsi:type="PQ " value="30" /> <referenceRange> <observationRange> <text>20-46</text> </observationRange> </ referenceRange> </observation> </component> <component> <observation moodCode="EVN" classCode="OBS"> <templateId root= "11.30.840.1.773631.10...4.2" /> <id nullFlavor="NA" /> < code codeSystem="local" code="MCH" displayName="MCH" /> <statusCode code="completed" /> <effectiveTime value="803591705544" /> < value unit="pg" xsi:type="PQ" value="29.9" /> <referenceRange> <observationRange> <text>27.0-32.0</text> </ observationRange> </referenceRange> </observation> </ component> <component> <observation moodCode="EVN" classCode="OBS"> <templateId root="216.840.1.212365.10.4.2" /> <id nullFlavor="NA" /> <code codeSystem="local" code="MCHC" displayName= "MCHC" /> <statusCode code="completed" /> <effectiveTime value ="261978205508" /> <value unit="g/dL" xsi:type="PQ" value="32.6" /> <referenceRange> <observationRange> <text>32.0- 36.0</text> </observationRange> </referenceRange> </ observation> </component> <component> <observation moodCode= "EVN" classCode="OBS"> <templateId root="11.30.840.1.710130.08.03.22.4.2 " /> <id nullFlavor="NA" /> <code codeSystem="local" code="MCV " displayName="MCV" /> <statusCode code="completed" /> < effectiveTime value="682817141294" /> <value unit="fL" xsi:type="PQ" value="91.8" /> <referenceRange> <observationRange> <text>82.0-99.0</text> </observationRange> </ referenceRange> </observation> </component> <component> <observation moodCode="EVN" classCode="OBS"> <templateId root= "16.840.1.873671.08.03.22.4.2" /> <id nullFlavor="NA" /> < code codeSystem="local" code="MONOR" displayName="Monocytes" /> < statusCode code="completed" /> <effectiveTime value="546356228608" /> <value unit="%" xsi:type="PQ" value="7" /> <referenceRange > <observationRange> <text>4-11</text> </ observationRange> </referenceRange> </observation> </ component> <component> <observation moodCode="EVN" classCode="OBS"> <templateId root="11.30.840.1.756848.10.20.22.4.2" /> <id nullFlavor="NA" /> <code codeSystem="local" code="MPV" displayName="MPV " /> <statusCode code="completed" /> <effectiveTime value= "687457127289" /> <value unit="fL" xsi:type="PQ" value="10.0" /> <referenceRange> <observationRange> <text>9.4-12.4</ text> </observationRange> </referenceRange> </ observation> </component> <component> <observation moodCode= "EVN" classCode="OBS"> <templateId root="840.1.758593.10.22.4.2 " /> <id nullFlavor="NA" /> <code codeSystem="local" code= "SEGR" displayName="Neutrophils" /> <statusCode code="completed" /> <effectiveTime value="531549678016" /> <value unit="%" xsi: type="PQ" value="56" /> <referenceRange> <observationRange> <text>51-75</text> </observationRange> </ referenceRange> </observation> </component> <component> <observation moodCode="EVN" classCode="OBS"> <templateId root= "11.30.840.1.137202.10.20.22.4.2" /> <id nullFlavor="NA" /> < code codeSystem="local" code="NRBCA" displayName="Nucleated RBC Automated" /> <statusCode code="completed" /> <effectiveTime value= "934298005438" /> <value unit="/100WBC" xsi:type="PQ" value="0.0" /> <referenceRange> <observationRange> <text /> </observationRange> </referenceRange> </observation> </component> <component> <observation moodCode="EVN" classCode= "OBS"> <templateId root="216.840.1.081696.08.03.22.4.2" /> < id nullFlavor="NA" /> <code codeSystem="local" code="PLT" displayName= "Platelet Count" /> <statusCode code="completed" /> < effectiveTime value="946488567032" /> <value unit="K/uL" xsi:type="PQ" value="271" /> <referenceRange> <observationRange> <text>150-400</text> </observationRange> </ referenceRange> </observation> </component> <component> <observation moodCode="EVN" classCode="OBS"> <templateId root= "11.30.840.1.322899.08.03.22.4.2" /> <id nullFlavor="NA" /> < code codeSystem="local" code="RBC" displayName="RBC" /> <statusCode code="completed" /> <effectiveTime value="190603138410" /> < value unit="10*6/uL" xsi:type="PQ" value="3.88" /> <interpretationCode codeSystem="local" code="*" /> <referenceRange> < observationRange> <text>4.00-5.20</text> </ observationRange> </referenceRange> </observation> </ component> <component> <observation moodCode="EVN" classCode="OBS"> <templateId root="11.30.840.1.454670.08.03.22.4.2" /> <id nullFlavor="NA" /> <code codeSystem="local" code="RDW" displayName="RDW " /> <statusCode code="completed" /> <effectiveTime value= "225109645814" /> <value unit="%" xsi:type="PQ" value="13.9" /> <referenceRange> <observationRange> <text>11.5- 14.5</text> </observationRange> </referenceRange> </ observation> </component> <component> <observation moodCode= "EVN" classCode="OBS"> <templateId root="840.1.801862.08.03.22.4.2 " /> <id nullFlavor="NA" /> <code codeSystem="local" code= "WBCIR" displayName="WBC" /> <statusCode code="completed" /> < effectiveTime value="306166833948" /> <value unit="K/uL" xsi:type="PQ" value="5.6" /> <referenceRange> <observationRange> <text>4.8-10.8</text> </observationRange> </ referenceRange> </observation> </component> </organizer> </entry > <entry> <organizer moodCode="EVN" classCode="BATTERY"> <templateId root="840.1.412057.08.03.22.4.1" /> <id nullFlavor="NA" /> <code codeSystem="local" code="UA" displayName="Urinalysis with reflex microscopic" / > <statusCode code="completed" /> <component> <observation moodCode="EVN" classCode="OBS"> <templateId root= "840.1.829127.22.4.2" /> <id nullFlavor="NA" /> < code codeSystem="local" code="UAPP" displayName="Appearance" /> < statusCode code="completed" /> <effectiveTime value="" /> <value unit="NA" xsi:type="PQ" value="Clear" /> < referenceRange> <observationRange> <text /> < /observationRange> </referenceRange> </observation> </ component> <component> <observation moodCode="EVN" classCode="OBS"> <templateId root="16.840.1.113740.10..4.2" /> <id nullFlavor="NA" /> <code codeSystem="local" code="UBIL" displayName= "Bilirubin" /> <statusCode code="completed" /> <effectiveTime value="" /> <value unit="NA" xsi:type="PQ" value="Negative " /> <referenceRange> <observationRange> <text> Negative</text> </observationRange> </referenceRange> </observation> </component> <component> <observation moodCode ="EVN" classCode="OBS"> <templateId root= "11.30.840.1.172650.08.03.22.4.2" /> <id nullFlavor="NA" /> < code codeSystem="local" code="UBLD" displayName="Blood" /> <statusCode code="completed" /> <effectiveTime value="" /> < value unit="NA" xsi:type="PQ" value="Negative" /> <referenceRange> <observationRange> <text>Negative</text> </ observationRange> </referenceRange> </observation> </ component> <component> <observation moodCode="EVN" classCode="OBS"> <templateId root="11.30.840.1.920888.08.03.22.4.2" /> <id nullFlavor="NA" /> <code codeSystem="local" code="UCOLR" displayName= "Color" /> <statusCode code="completed" /> <effectiveTime value="" /> <value unit="NA" xsi:type="PQ" value="Yellow" / > <referenceRange> <observationRange> <text /> </observationRange> </referenceRange> </observation > </component> <component> <observation moodCode="EVN" classCode="OBS"> <templateId root="11.30.840.1.116705.10.22.4.2" /> <id nullFlavor="NA" /> <code codeSystem="local" code="UGLU" displayName="Glucose, Urine" /> <statusCode code="completed" /> <effectiveTime value="" /> <value unit="" xsi:type="PQ" value="Negative" /> <referenceRange> <observationRange> <text>Negative</text> </observationRange> </ referenceRange> </observation> </component> <component> <observation moodCode="EVN" classCode="OBS"> <templateId root= "11.30.840.1.401867.22.4.2" /> <id nullFlavor="NA" /> < code codeSystem="local" code="UKET" displayName="Ketones" /> < statusCode code="completed" /> <effectiveTime value="" /> <value unit="" xsi:type="PQ" value="Negative" /> < referenceRange> <observationRange> <text>Negative</text > </observationRange> </referenceRange> </observation > </component> <component> <observation moodCode="EVN" classCode="OBS"> <templateId root="11.30.840.1.238231.08.03.22.4.2" /> <id nullFlavor="NA" /> <code codeSystem="local" code="ULEU" displayName="Leukocyte Esterase" /> <statusCode code="completed" /> <effectiveTime value="" /> <value unit="NA" xsi:type ="PQ" value="Negative" /> <referenceRange> <observationRange > <text>Negative</text> </observationRange> </ referenceRange> </observation> </component> <component> <observation moodCode="EVN" classCode="OBS"> <templateId root= "216.840.1.057250.08.03.22.4.2" /> <id nullFlavor="NA" /> < code codeSystem="local" code="UNIT" displayName="Nitrites" /> < statusCode code="completed" /> <effectiveTime value="" /> <value unit="NA" xsi:type="PQ" value="Negative" /> < referenceRange> <observationRange> <text>Negative</text > </observationRange> </referenceRange> </observation > </component> <component> <observation moodCode="EVN" classCode="OBS"> <templateId root="216.840.1.407449.08.03.22.4.2" /> <id nullFlavor="NA" /> <code codeSystem="local" code="UPH" displayName="pH" /> <statusCode code="completed" /> < effectiveTime value="273717068488" /> <value unit="NA" xsi:type="PQ" value="5.0" /> <referenceRange> <observationRange> <text>5.0-8.0</text> </observationRange> </ referenceRange> </observation> </component> <component> <observation moodCode="EVN" classCode="OBS"> <templateId root= "2.16.840.1.621664.10.4.2" /> <id nullFlavor="NA" /> < code codeSystem="local" code="UPRO" displayName="Protein" /> < statusCode code="completed" /> <effectiveTime value="828197950924" /> <value unit="NA" xsi:type="PQ" value="Negative" /> < referenceRange> <observationRange> <text>Negative</text > </observationRange> </referenceRange> </observation > </component> <component> <observation moodCode="EVN" classCode="OBS"> <templateId root="216.840.1.162847.08.03.22.4.2" /> <id nullFlavor="NA" /> <code codeSystem="local" code="USPG" displayName="Specific [place]" /> <statusCode code="completed" /> <effectiveTime value="057692913701" /> <value unit="NA" xsi:type= "PQ" value="1.015" /> <referenceRange> <observationRange> <text>1.003-1.030</text> </observationRange> </ referenceRange> </observation> </component> <component> <observation moodCode="EVN" classCode="OBS"> <templateId root= "216.840.1.448625.08.03.22.4.2" /> <id nullFlavor="NA" /> < code codeSystem="local" code="UTYP" displayName="UA Collection type" /> <statusCode code="completed" /> <effectiveTime value="573643013509" / > <value unit="NA" xsi:type="PQ" value="Clean Catch" /> < referenceRange> <observationRange> <text /> < /observationRange> </referenceRange> </observation> </ component> <component> <observation moodCode="EVN" classCode="OBS"> <templateId root="216.840.1.803893.10..22.4.2" /> <id nullFlavor="NA" /> <code codeSystem="local" code="UURO" displayName= "Urobilinogen" /> <statusCode code="completed" /> < effectiveTime value="080707119671" /> <value unit="mg/dL" xsi:type="PQ " value="Negative" /> <referenceRange> <observationRange> <text><1.0</text> </observationRange> </ referenceRange> </observation> </component> </organizer> </entry > <entry> <organizer moodCode="EVN" classCode="BATTERY"> <templateId root="2.16.840.1.400984.10..22.4.1" /> <id nullFlavor="NA" /> <code codeSystem="local" code="UPREG" displayName=" Screen, Urine" /> < statusCode code="completed" /> <component> <observation moodCode= "EVN" classCode="OBS"> <templateId root="2.16.840.1.357271.10.20.22.4.2 " /> <id nullFlavor="NA" /> <code codeSystem="local" code= "UPREG" displayName=" Screen, Urine" /> <statusCode code= "completed" /> <effectiveTime value="066834811217" /> <value unit="NA" xsi:type="PQ" value="Negative" /> <referenceRange> <observationRange> <text /> </observationRange> </referenceRange> </observation> </component> </organizer> < /entry> <entry> <organizer moodCode="EVN" classCode="BATTERY"> < templateId root="216.840.1.204802.10..22.4.1" /> <id nullFlavor="NA" /> <code codeSystem="local" code="VCHMN" displayName="Chem 8 NPT" /> < statusCode code="completed" /> <component> <observation moodCode= "EVN" classCode="OBS"> <templateId root="11.30.840.1.570835.08.03.22.4.2 " /> <id nullFlavor="NA" /> <code codeSystem="local" code= "VAGAP" displayName="Anion Gap" /> <statusCode code="completed" /> <effectiveTime value="431733104332" /> <value unit="mEq/L" xsi: type="PQ" value="13" /> <referenceRange> <observationRange> <text>3-20</text> </observationRange> </ referenceRange> </observation> </component> <component> <observation moodCode="EVN" classCode="OBS"> <templateId root= "840.1.973637.08.03.22.4.2" /> <id nullFlavor="NA" /> < code codeSystem="local" code="VBUNN" displayName="BUN Venous" /> < statusCode code="completed" /> <effectiveTime value="794058396227" /> <value unit="mg/dl" xsi:type="PQ" value="12" /> < referenceRange> <observationRange> <text>4-20</text> </observationRange> </referenceRange> </observation> </component> <component> <observation moodCode="EVN" classCode= "OBS"> <templateId root="11.30.840.1.659287.22.4.2" /> < id nullFlavor="NA" /> <code codeSystem="local" code="VCANN" displayName ="Calcium Ionized Venous" /> <statusCode code="completed" /> < effectiveTime value="196952260498" /> <value unit="mmol/L" xsi:type="PQ " value="1.13" /> <interpretationCode codeSystem="local" code="*" /> <referenceRange> <observationRange> <text>1.19- 1.41</text> </observationRange> </referenceRange> </ observation> </component> <component> <observation moodCode= "EVN" classCode="OBS"> <templateId root="2.16.840.1.828434.10..22.4.2 " /> <id nullFlavor="NA" /> <code codeSystem="local" code= "VCREN" displayName="Creatinine Venous" /> <statusCode code="completed " /> <effectiveTime value="544613646271" /> <value unit="mg/dL " xsi:type="PQ" value="0.7" /> <referenceRange> < observationRange> <text>0.4-1.0</text> </ observationRange> </referenceRange> </observation> </ component> <component> <observation moodCode="EVN" classCode="OBS"> <templateId root="2.16.840.1.523638.10..22.4.2" /> <id nullFlavor="NA" /> <code codeSystem="local" code="VGLNN" displayName= "Glucose Venous" /> <statusCode code="completed" /> < effectiveTime value="541924123144" /> <value unit="mg/dL" xsi:type="PQ " value="80" /> <referenceRange> <observationRange> <text>70-100</text> </observationRange> </ referenceRange> </observation> </component> <component> <observation moodCode="EVN" classCode="OBS"> <templateId root= "11.30.840.1.944244.10.22.4.2" /> <id nullFlavor="NA" /> < code codeSystem="local" code="VKNN" displayName="Potassium, WB" /> < statusCode code="completed" /> <effectiveTime value="306604510908" /> <value unit="mEq/L" xsi:type="PQ" value="3.9" /> < referenceRange> <observationRange> <text>3.6-5.1</text> </observationRange> </referenceRange> </observation > </component> <component> <observation moodCode="EVN" classCode="OBS"> <templateId root="11.30.840.1.057041.08.03.22.4.2" /> <id nullFlavor="NA" /> <code codeSystem="local" code="VNANN" displayName="Sodium Venous" /> <statusCode code="completed" /> <effectiveTime value="255656383557" /> <value unit="mEq/L" xsi:type= "PQ" value="140" /> <referenceRange> <observationRange> <text>136-144</text> </observationRange> </ referenceRange> </observation> </component> <component> <observation moodCode="EVN" classCode="OBS"> <templateId root= "11.30.840.1.189147.22.4.2" /> <id nullFlavor="NA" /> < code codeSystem="local" code="VTCNN" displayName="Total CO2 Venous" /> <statusCode code="completed" /> <effectiveTime value="760299478994" /> <value unit="mEq/L" xsi:type="PQ" value="21" /> < interpretationCode codeSystem="local" code="*" /> <referenceRange> <observationRange> <text>25-29</text> </ observationRange> </referenceRange> </observation> </ component> <component> <observation moodCode="EVN" classCode="OBS"> <templateId root="216.840.1.597870.10..4.2" /> <id nullFlavor="NA" /> <code codeSystem="local" code="VCLN" displayName= "Venous CL" /> <statusCode code="completed" /> <effectiveTime value="775867200589" /> <value unit="mEq/L" xsi:type="PQ" value="106" / > <referenceRange> <observationRange> <text>99- 109</text> </observationRange> </referenceRange> </ observation> </component> <component> <observation moodCode= "EVN" classCode="OBS"> <templateId root="11.30.840.1.420961.08.03.22.4.2 " /> <id nullFlavor="NA" /> <code codeSystem="local" code= "VHCNN" displayName="HCT Venous" /> <statusCode code="completed" /> <effectiveTime value="908860528661" /> <value unit="%" xsi: type="PQ" value="41.0" /> <referenceRange> <observationRange > <text>37.0-47.0</text> </observationRange> </ referenceRange> </observation> </component> <component> <observation moodCode="EVN" classCode="OBS"> <templateId root= "11.30.840.1.962203...4.2" /> <id nullFlavor="NA" /> < code codeSystem="local" code="VHGNN" displayName="HGB Venous NPT" /> < statusCode code="completed" /> <effectiveTime value="079375458164" /> <value unit="g/dL" xsi:type="PQ" value="13.9" /> < referenceRange> <observationRange> <text>12.0-16.0</text > </observationRange> </referenceRange> </observation > </component> </organizer> </entry> <entry> <organizer moodCode= "EVN" classCode="BATTERY"> <templateId root="11.30.840.1.939187.10..22.4.1 " /> <id nullFlavor="NA" /> <code codeSystem="local" code="PREGN" displayName=" Screen, Urine NPT" /> <statusCode code="completed" / > <component> <observation moodCode="EVN" classCode="OBS"> <templateId root="11.30.840.1.780408.10..22.4.2" /> <id nullFlavor="NA " /> <code codeSystem="local" code="PREGN" displayName=" Screen, Urine NPT" /> <statusCode code="completed" /> < effectiveTime value="586256959799" /> <value unit="NA" xsi:type="PQ" value="Negative" /> <referenceRange> <observationRange> <text /> </observationRange> </referenceRange> </observation> </component> </organizer> </entry> <entry> < organizer moodCode="EVN" classCode="BATTERY"> <templateId root= "11.30.840.1.197599.10.20.22.4.1" /> <id nullFlavor="NA" /> <code codeSystem="local" code="UA" displayName="URINALYSIS, ROUTINE" /> < statusCode code="completed" /> <component> <observation moodCode= "EVN" classCode="OBS"> <templateId root="840.1.421709.10..22.4.2 " /> <id nullFlavor="NA" /> <code codeSystem="local" code= "LEUESU" displayName="UA LEUKOCYTE ESTERASE DIPSTICK" /> <statusCode code="completed" /> <effectiveTime value="140096138430" /> < value unit="" xsi:type="PQ" value="NEGATIVE" /> <referenceRange> <observationRange> <text>NEGATIVE</text> </ observationRange> </referenceRange> </observation> </ component> <component> <observation moodCode="EVN" classCode="OBS"> <templateId root="216.840.1.024512.08.03.22.4.2" /> <id nullFlavor="NA" /> <code codeSystem="local" code="NITRIU" displayName= "UA NITRITE DIPSTICK" /> <statusCode code="completed" /> < effectiveTime value="819489457263" /> <value unit="" xsi:type="PQ" value="NEGATIVE" /> <referenceRange> <observationRange> <text>NEGATIVE</text> </observationRange> </ referenceRange> </observation> </component> <component> <observation moodCode="EVN" classCode="OBS"> <templateId root= "216.840.1.400711.08.03.22.4.2" /> <id nullFlavor="NA" /> < code codeSystem="local" code="PROTEIU" displayName="UA PROTEIN DIPSTICK" /> <statusCode code="completed" /> <effectiveTime value= "201946952471" /> <value unit="" xsi:type="PQ" value="NEGATIVE" /> <referenceRange> <observationRange> <text>NEGATIVE </text> </observationRange> </referenceRange> </ observation> </component> <component> <observation moodCode= "EVN" classCode="OBS"> <templateId root="16.840.1.690332.10...4.2 " /> <id nullFlavor="NA" /> <code codeSystem="local" code= "DGLUU" displayName="UA GLUCOSE DIPSTICK" /> <statusCode code= "completed" /> <effectiveTime value="" /> <value unit="" xsi:type="PQ" value="NEGATIVE" /> <referenceRange> < observationRange> <text>NEGATIVE</text> </ observationRange> </referenceRange> </observation> </ component> <component> <observation moodCode="EVN" classCode="OBS"> <templateId root="16.840.1.703714.10..4.2" /> <id nullFlavor="NA" /> <code codeSystem="local" code="KETONU" displayName= "UA KETONE DIPSTICK" /> <statusCode code="completed" /> < effectiveTime value="" /> <value unit="" xsi:type="PQ" value="NEGATIVE" /> <referenceRange> <observationRange> <text>NEGATIVE</text> </observationRange> </ referenceRange> </observation> </component> <component> <observation moodCode="EVN" classCode="OBS"> <templateId root= "11.30.840.1.390405.10...4.2" /> <id nullFlavor="NA" /> < code codeSystem="local" code="UROBILU" displayName="UA UROBILINOGEN DIPSTICK" / > <statusCode code="completed" /> <effectiveTime value= "055443728125" /> <value unit="" xsi:type="PQ" value="NORMAL" /> <referenceRange> <observationRange> <text>NORMAL</ text> </observationRange> </referenceRange> </ observation> </component> <component> <observation moodCode= "EVN" classCode="OBS"> <templateId root="216.840.1.974082.08.03.22.4.2 " /> <id nullFlavor="NA" /> <code codeSystem="local" code= "BILU" displayName="UA BILIRUBIN DIPSTICK" /> <statusCode code= "completed" /> <effectiveTime value="" /> <value unit="" xsi:type="PQ" value="NEGATIVE" /> <referenceRange> < observationRange> <text>NEGATIVE</text> </ observationRange> </referenceRange> </observation> </ component> <component> <observation moodCode="EVN" classCode="OBS"> <templateId root="11.30.840.1.827225.08.03.22.4.2" /> <id nullFlavor="NA" /> <code codeSystem="local" code="ABDELRAHMAN" displayName="UA BLOOD DIPSTICK" /> <statusCode code="completed" /> < effectiveTime value="" /> <value unit="" xsi:type="PQ" value="NEGATIVE" /> <referenceRange> <observationRange> <text>NEGATIVE</text> </observationRange> </ referenceRange> </observation> </component> <component> <observation moodCode="EVN" classCode="OBS"> <templateId root= "16.840.1.027795.08.03.22.4.2" /> <id nullFlavor="NA" /> < code codeSystem="local" code="SPGRU" displayName="UA SPECIFIC GRAVITY" /> <statusCode code="completed" /> <effectiveTime value=" " /> <value unit="" xsi:type="PQ" value="1.015" /> < referenceRange> <observationRange> <text>1.015-1.025</ text> </observationRange> </referenceRange> </ observation> </component> <component> <observation moodCode= "EVN" classCode="OBS"> <templateId root="16.840.1.743323.10.20.22.4.2 " /> <id nullFlavor="NA" /> <code codeSystem="local" code="COLTON " displayName="UR PH" /> <statusCode code="completed" /> < effectiveTime value="498441109725" /> <value unit="" xsi:type="PQ" value="6.5" /> <referenceRange> <observationRange> <text>5.0-7.0</text> </observationRange> </ referenceRange> </observation> </component> </organizer> </entry > <entry> <organizer moodCode="EVN" classCode="BATTERY"> <templateId root="16.840.1.156952.10..22.4.1" /> <id nullFlavor="NA" /> <code codeSystem="local" code="PREGU" displayName="UR TEST" /> < statusCode code="completed" /> <component> <observation moodCode= "EVN" classCode="OBS"> <templateId root="16.840.1.249122.10.20.22.4.2 " /> <id nullFlavor="NA" /> <code codeSystem="local" code= "PREGU" displayName="UR TEST" /> <statusCode code="completed " /> <effectiveTime value="890067786160" /> <value unit="" xsi :type="PQ" value="NEGATIVE" /> <referenceRange> < observationRange> <text>NEGATIVE</text> </ observationRange> </referenceRange> </observation> </ component> </organizer> </entry> <entry> <organizer moodCode="EVN" classCode="BATTERY"> <templateId root="2.16.840.1.084301.10.20.22.4.1" /> <id nullFlavor="NA" /> <code codeSystem="local" code="CHL" displayName ="CHLAMYDIA DNA BY PCR" /> <statusCode code="completed" /> <component > <observation moodCode="EVN" classCode="OBS"> <templateId root= "2.16.840.1.867352.10..22.4.2" /> <id nullFlavor="NA" /> < code codeSystem="local" code="MB" displayName="Microbiology" /> < statusCode code="completed" /> <effectiveTime value="784273546950" /> <value xsi:type="ST" value="<pre><b>CHLAMYDIA DNA BY PCR - GONORRHOEA DNA BY PCR</b> See BelowCHLAMYDIA DNA BY PCR(F) Isabella Date/Time: 2016 19:12 Laina Date/Time: 06/12/2017 09:32SOURCE : URINESPEC DESC: [facility] [place], [place] [address]Jjm BelowGONORRHOEA DNA BY PCR(F) Isabella Date/Time: 06/11/2017 19:12 Laina Date/Time: 06/12/2017 09:32SOURCE: URINESPEC DESC: [facility] [place] [address]</ pre>" /> <referenceRange> <observationRange> < text /> </observationRange> </referenceRange> </ observation> </component> </organizer> </entry> <entry> <organizer moodCode="EVN" classCode="BATTERY"> <templateId root= "2.16.840.1.597732.10.20.4.1" /> <id nullFlavor="NA" /> <code codeSystem="local" code="PREG" displayName=" TEST, SERUM" /> < statusCode code="completed" /> <component> <observation moodCode= "EVN" classCode="OBS"> <templateId root="16.840.1.008580.08.03.22.4.2 " /> <id nullFlavor="NA" /> <code codeSystem="local" code= "PREG" displayName=" TEST, SERUM" /> <statusCode code= "completed" /> <effectiveTime value="223486681810" /> <value unit="" xsi:type="PQ" value="NEGATIVE" /> <referenceRange> < observationRange> <text>NEGATIVE</text> </ observationRange> </referenceRange> </observation> </ component> </organizer> </entry> <entry> <organizer moodCode="EVN" classCode="BATTERY"> <templateId root="11.30.840.1.227916.08.03.22.4.1" /> <id nullFlavor="NA" /> <code codeSystem="local" code="RPR" displayName ="RAPID PLASMA REAGIN" /> <statusCode code="completed" /> <component> <observation moodCode="EVN" classCode="OBS"> <templateId root= "16.840.1.826929.10.4.2" /> <id nullFlavor="NA" /> < code codeSystem="local" code="RPR" displayName="RAPID PLASMA REAGIN" /> <statusCode code="completed" /> <effectiveTime value="120241799184" / > <value unit="" xsi:type="PQ" value="NONREACTIVE" /> < referenceRange> <observationRange> <text>NONREACTIVE</ text> </observationRange> </referenceRange> </ observation> </component> </organizer> </entry> <entry> <organizer moodCode="EVN" classCode="BATTERY"> <templateId root= "11.30.840.1.443920.10...4.1" /> <id nullFlavor="NA" /> <code codeSystem="local" code="HIV" displayName="HIV" /> <statusCode code= "completed" /> <component> <observation moodCode="EVN" classCode= "OBS"> <templateId root="11.30.840.1.315006.10...4.2" /> < id nullFlavor="NA" /> <code codeSystem="local" code="[id number]" displayName="AB HIV 1 2" /> <statusCode code="completed" /> <effectiveTime value="890590298062" /> <value unit="" xsi:type="PQ" value="NEGATIVE" /> <referenceRange> <observationRange> <text>NEGATIVE</text> </observationRange> </ referenceRange> </observation> </component> <component> <observation moodCode="EVN" classCode="OBS"> <templateId root= "11.30.840.1.528965.10...4.2" /> <id nullFlavor="NA" /> < code codeSystem="local" code="[id number]" displayName="HIV 1 P24 AG" /> <statusCode code="completed" /> <effectiveTime value="275497417754" /> <value unit="" xsi:type="PQ" value="NEGATIVE" /> < referenceRange> <observationRange> <text>NEGATIVE</text > </observationRange> </referenceRange> </observation > </component> </organizer> </entry> <entry> <organizer moodCode= "EVN" classCode="BATTERY"> <templateId root="11.30.830.1.410288.10..22.4.1 " /> <id nullFlavor="NA" /> <code codeSystem="local" code="WET" displayName="WET MOUNT" /> <statusCode code="completed" /> <component > <observation moodCode="EVN" classCode="OBS"> <templateId root= "11.30.840.1.913798.10..22.4.2" /> <id nullFlavor="NA" /> < code codeSystem="local" code="MB" displayName="Microbiology" /> < statusCode code="completed" /> <effectiveTime value="276493011975" /> <value xsi:type="ST" value="<pre><b>WET MOUNT</b> See BelowWET MOUNT(F ) Isabella Date/Time: 06/11/2017 20:32 Laina Date/Time: 06/11/2017 20:45SOURCE: VAGINALSPEC DESC: CLUE CELLS ( Abnormal)MODERATE CLUE CELLS PRESENT (Abnormal)TRICHOMONASNO TRICHOMONAS SEENWBCFEW WBCYEASTNO [facility]AST [facility] [place] [address]</pre>" /> <referenceRange> <observationRange> <text /> </observationRange> </referenceRange> </observation> </component> </organizer> </entry> <entry> < organizer moodCode="EVN" classCode="BATTERY"> <templateId root= "840.1.644603.10..22.4.1" /> <id nullFlavor="NA" /> <code codeSystem="local" code="GRAM" displayName="GRAM STAIN - CHLAMYDIA DNA BY PCR" / > <statusCode code="completed" /> <component> <observation moodCode="EVN" classCode="OBS"> <templateId root= "11.30.840.1.974656.10.20.22.4.2" /> <id nullFlavor="NA" /> < code codeSystem="local" code="MB" displayName="Microbiology" /> < statusCode code="completed" /> <effectiveTime value="873594133746" /> <value xsi:type="ST" value="<pre><b>GRAM STAIN</b> See BelowGRAM STAIN( F) Isabella Date/Time: 06/11/2017 20:32 Laina Date/Time: 06/11/2017 20:52SOURCE: VAGINALSPEC DESC: GRAM STAINRARE NEUTROPHILSMANY GRAM VARIABLE BACILLI RESEMBLING G. VAGINALISNO ORGANISMS SEEN RESEMBLING NEISSERIA GONORRHOEAECHI [facility] [place] [facility] [place] [address]</pre>" /> <referenceRange> <observationRange> <text /> </observationRange> </referenceRange> </observation> </component> </organizer> </entry> <entry> < organizer moodCode="EVN" classCode="BATTERY"> <templateId root= "2.16.840.1.574144.10.20.22.4.1" /> <id nullFlavor="NA" /> <code codeSystem="local" code="CBCWD" displayName="CBC With Platelet and Differential " /> <statusCode code="completed" /> <component> <observation moodCode="EVN" classCode="OBS"> <templateId root= "2.16.840.1.025414.10.20.22.4.2" /> <id nullFlavor="NA" /> < code codeSystem="local" code="ABASR" displayName="Absolute Basophils" /> <statusCode code="completed" /> <effectiveTime value="556902813318" /> <value unit="10*3/uL" xsi:type="PQ" value="0.06" /> < referenceRange> <observationRange> <text>0.00-0.20</text > </observationRange> </referenceRange> </observation > </component> <component> <observation moodCode="EVN" classCode="OBS"> <templateId root="216.840.1.050984.10.22.4.2" /> <id nullFlavor="NA" /> <code codeSystem="local" code="AEOSR" displayName="Absolute Eosinophils" /> <statusCode code="completed" /> <effectiveTime value="" /> <value unit="10*3/uL" xsi:type="PQ" value="0.46" /> <referenceRange> < observationRange> <text>0.00-0.50</text> </ observationRange> </referenceRange> </observation> </ component> <component> <observation moodCode="EVN" classCode="OBS"> <templateId root="16.840.1.295811.08.03.224.2" /> <id nullFlavor="NA" /> <code codeSystem="local" code="ALYMR" displayName= "Absolute Lymphocytes" /> <statusCode code="completed" /> < effectiveTime value="" /> <value unit="10*3/uL" xsi:type= "PQ" value="2.05" /> <referenceRange> <observationRange> <text>0.80-3.30</text> </observationRange> </ referenceRange> </observation> </component> <component> <observation moodCode="EVN" classCode="OBS"> <templateId root= "11.30.840.1.746533.10.22.4.2" /> <id nullFlavor="NA" /> < code codeSystem="local" code="AMONR" displayName="Absolute Monocytes" /> <statusCode code="completed" /> <effectiveTime value="609319776083" /> <value unit="10*3/uL" xsi:type="PQ" value="0.53" /> < referenceRange> <observationRange> <text>0.30-1.00</text > </observationRange> </referenceRange> </observation > </component> <component> <observation moodCode="EVN" classCode="OBS"> <templateId root="16.840.1.742764.10.20.22.4.2" /> <id nullFlavor="NA" /> <code codeSystem="local" code="ASEGR" displayName="Absolute Neutrophils" /> <statusCode code="completed" /> <effectiveTime value="866125458970" /> <value unit="10*3/uL" xsi:type="PQ" value="4.64" /> <referenceRange> < observationRange> <text>1.90-7.00</text> </ observationRange> </referenceRange> </observation> </ component> <component> <observation moodCode="EVN" classCode="OBS"> <templateId root="840.1.118062.10.22.4.2" /> <id nullFlavor="NA" /> <code codeSystem="local" code="BASOR" displayName= "Basophils" /> <statusCode code="completed" /> <effectiveTime value="325543326446" /> <value unit="%" xsi:type="PQ" value="1" /> <referenceRange> <observationRange> <text>0-2< /text> </observationRange> </referenceRange> </ observation> </component> <component> <observation moodCode= "EVN" classCode="OBS"> <templateId root="11.30.840.1.004140.10.20.22.4.2 " /> <id nullFlavor="NA" /> <code codeSystem="local" code= "EOSR" displayName="Eosinophils" /> <statusCode code="completed" /> <effectiveTime value="708257240943" /> <value unit="%" xsi: type="PQ" value="6" /> <interpretationCode codeSystem="local" code="*" /> <referenceRange> <observationRange> <text>0- 4</text> </observationRange> </referenceRange> </ observation> </component> <component> <observation moodCode= "EVN" classCode="OBS"> <templateId root="216.840.1.679976.10.20.22.4.2 " /> <id nullFlavor="NA" /> <code codeSystem="local" code="HCT " displayName="HCT" /> <statusCode code="completed" /> < effectiveTime value="173772381158" /> <value unit="%" xsi:type="PQ " value="38.9" /> <referenceRange> <observationRange> <text>37.0-47.0</text> </observationRange> </ referenceRange> </observation> </component> <component> <observation moodCode="EVN" classCode="OBS"> <templateId root= "216.840.1.771025.10.20.22.4.2" /> <id nullFlavor="NA" /> < code codeSystem="local" code="HGB" displayName="HGB" /> <statusCode code="completed" /> <effectiveTime value="313836470095" /> < value unit="g/dL" xsi:type="PQ" value="13.4" /> <referenceRange> <observationRange> <text>12.0-16.0</text> </ observationRange> </referenceRange> </observation> </ component> <component> <observation moodCode="EVN" classCode="OBS"> <templateId root="16.840.1.872189.08.03.224.2" /> <id nullFlavor="NA" /> <code codeSystem="local" code="IMGA" displayName= "Immature Granulocytes" /> <statusCode code="completed" /> < effectiveTime value="237414224953" /> <value unit="%" xsi:type="PQ " value="0.1" /> <referenceRange> <observationRange> <text>0.0-1.0</text> </observationRange> </ referenceRange> </observation> </component> <component> <observation moodCode="EVN" classCode="OBS"> <templateId root= "16.840.1.819423.08.03.224.2" /> <id nullFlavor="NA" /> < code codeSystem="local" code="LYMPR" displayName="Lymphocytes" /> < statusCode code="completed" /> <effectiveTime value="547399259082" /> <value unit="%" xsi:type="PQ" value="27" /> < referenceRange> <observationRange> <text>20-46</text> </observationRange> </referenceRange> </observation> </component> <component> <observation moodCode="EVN" classCode= "OBS"> <templateId root="11.30.840.1.925762.10.4.2" /> < id nullFlavor="NA" /> <code codeSystem="local" code="MCH" displayName= "MCH" /> <statusCode code="completed" /> <effectiveTime value= "510277156643" /> <value unit="pg" xsi:type="PQ" value="31.2" /> <referenceRange> <observationRange> <text>27.0-32.0< /text> </observationRange> </referenceRange> </ observation> </component> <component> <observation moodCode= "EVN" classCode="OBS"> <templateId root="11.30.840.1.022762.08.03.22.4.2 " /> <id nullFlavor="NA" /> <code codeSystem="local" code= "MCHC" displayName="MCHC" /> <statusCode code="completed" /> < effectiveTime value="228310537834" /> <value unit="g/dL" xsi:type="PQ" value="34.4" /> <referenceRange> <observationRange> <text>32.0-36.0</text> </observationRange> </ referenceRange> </observation> </component> <component> <observation moodCode="EVN" classCode="OBS"> <templateId root= "11.30.840.1.434465.08.03.22.4.2" /> <id nullFlavor="NA" /> < code codeSystem="local" code="MCV" displayName="MCV" /> <statusCode code="completed" /> <effectiveTime value="860115609421" /> < value unit="fL" xsi:type="PQ" value="90.7" /> <referenceRange> <observationRange> <text>82.0-99.0</text> </ observationRange> </referenceRange> </observation> </ component> <component> <observation moodCode="EVN" classCode="OBS"> <templateId root="11.30.840.1.151202.10...4.2" /> <id nullFlavor="NA" /> <code codeSystem="local" code="MONOR" displayName= "Monocytes" /> <statusCode code="completed" /> <effectiveTime value="570457610221" /> <value unit="%" xsi:type="PQ" value="7" /> <referenceRange> <observationRange> <text>4-11 </text> </observationRange> </referenceRange> </ observation> </component> <component> <observation moodCode= "EVN" classCode="OBS"> <templateId root="216.840.1.345596.10.2022.4.2 " /> <id nullFlavor="NA" /> <code codeSystem="local" code="MPV " displayName="MPV" /> <statusCode code="completed" /> < effectiveTime value="688268355236" /> <value unit="fL" xsi:type="PQ" value="10.9" /> <referenceRange> <observationRange> <text>9.4-12.4</text> </observationRange> </ referenceRange> </observation> </component> <component> <observation moodCode="EVN" classCode="OBS"> <templateId root= "11.30.840.1.028306.1022.4.2" /> <id nullFlavor="NA" /> < code codeSystem="local" code="SEGR" displayName="Neutrophils" /> < statusCode code="completed" /> <effectiveTime value="595203604549" /> <value unit="%" xsi:type="PQ" value="60" /> < referenceRange> <observationRange> <text>51-75</text> </observationRange> </referenceRange> </observation> </component> <component> <observation moodCode="EVN" classCode= "OBS"> <templateId root="11.30.840.1.434657.102022.4.2" /> < id nullFlavor="NA" /> <code codeSystem="local" code="NRBCA" displayName ="Nucleated RBC Automated" /> <statusCode code="completed" /> <effectiveTime value="465470597455" /> <value unit="/100WBC" xsi:type= "PQ" value="0.0" /> <referenceRange> <observationRange> <text /> </observationRange> </referenceRange> </observation> </component> <component> <observation moodCode="EVN" classCode="OBS"> <templateId root= "16.840.1.345770.10..22.4.2" /> <id nullFlavor="NA" /> < code codeSystem="local" code="PLT" displayName="Platelet Count" /> < statusCode code="completed" /> <effectiveTime value="157996386195" /> <value unit="K/uL" xsi:type="PQ" value="255" /> < referenceRange> <observationRange> <text>150-400</text> </observationRange> </referenceRange> </observation > </component> <component> <observation moodCode="EVN" classCode="OBS"> <templateId root="11.30.840.1.071956...4.2" /> <id nullFlavor="NA" /> <code codeSystem="local" code="RBC" displayName="RBC" /> <statusCode code="completed" /> < effectiveTime value="789106729870" /> <value unit="10*6/uL" xsi:type= "PQ" value="4.29" /> <referenceRange> <observationRange> <text>4.00-5.20</text> </observationRange> </ referenceRange> </observation> </component> <component> <observation moodCode="EVN" classCode="OBS"> <templateId root= "11.30.840.1.560325.10.20.22.4.2" /> <id nullFlavor="NA" /> < code codeSystem="local" code="RDW" displayName="RDW" /> <statusCode code="completed" /> <effectiveTime value="440713538208" /> < value unit="%" xsi:type="PQ" value="13.6" /> <referenceRange> <observationRange> <text>11.5-14.5</text> </ observationRange> </referenceRange> </observation> </ component> <component> <observation moodCode="EVN" classCode="OBS"> <templateId root="840.1.025984.1022.4.2" /> <id nullFlavor="NA" /> <code codeSystem="local" code="WBCIR" displayName= "WBC" /> <statusCode code="completed" /> <effectiveTime value= "102033137763" /> <value unit="K/uL" xsi:type="PQ" value="7.8" /> <referenceRange> <observationRange> <text>4.8-10.8< /text> </observationRange> </referenceRange> </ observation> </component> </organizer> </entry> <entry> <organizer moodCode="EVN" classCode="BATTERY"> <templateId root= "840.1.168241.22.4.1" /> <id nullFlavor="NA" /> <code codeSystem="local" code="CMP" displayName="Comprehensive Metabolic Panel (CMP)" /> <statusCode code="completed" /> <component> <observation moodCode="EVN" classCode="OBS"> <templateId root= "840.1.235164.22.4.2" /> <id nullFlavor="NA" /> < code codeSystem="local" code="ALB" displayName="Albumin" /> < statusCode code="completed" /> <effectiveTime value="901136802717" /> <value unit="g/dL" xsi:type="PQ" value="4.2" /> < referenceRange> <observationRange> <text>3.5-4.8</text> </observationRange> </referenceRange> </observation > </component> <component> <observation moodCode="EVN" classCode="OBS"> <templateId root="216.840.1.585783.10.4.2" /> <id nullFlavor="NA" /> <code codeSystem="local" code="ALP" displayName="Alkaline Phosphatase" /> <statusCode code="completed" /> <effectiveTime value="592337118500" /> <value unit="U/L" xsi: type="PQ" value="57" /> <referenceRange> <observationRange> <text>26-104</text> </observationRange> </ referenceRange> </observation> </component> <component> <observation moodCode="EVN" classCode="OBS"> <templateId root= "16.840.1.569639.10..4.2" /> <id nullFlavor="NA" /> < code codeSystem="local" code="ALT" displayName="ALT (SGPT)" /> < statusCode code="completed" /> <effectiveTime value="360687818014" /> <value unit="U/L" xsi:type="PQ" value="12" /> < interpretationCode codeSystem="local" code="*" /> <referenceRange> <observationRange> <text>14-54</text> </ observationRange> </referenceRange> </observation> </ component> <component> <observation moodCode="EVN" classCode="OBS"> <templateId root="216.840.1.574151..4.2" /> <id nullFlavor="NA" /> <code codeSystem="local" code="AGAP" displayName= "Anion Gap" /> <statusCode code="completed" /> <effectiveTime value="393250309253" /> <value unit="mEq/L" xsi:type="PQ" value="7" /> <referenceRange> <observationRange> <text>3-20 </text> </observationRange> </referenceRange> </ observation> </component> <component> <observation moodCode= "EVN" classCode="OBS"> <templateId root="2.16.840.1.255193.08.03.22.4.2 " /> <id nullFlavor="NA" /> <code codeSystem="local" code="AST " displayName="AST (SGOT)" /> <statusCode code="completed" /> <effectiveTime value="397254675061" /> <value unit="U/L" xsi:type="PQ" value="12" /> <interpretationCode codeSystem="local" code="*" /> <referenceRange> <observationRange> <text>15-41</ text> </observationRange> </referenceRange> </ observation> </component> <component> <observation moodCode= "EVN" classCode="OBS"> <templateId root="2.16.840.1.380694.08.03.22.4.2 " /> <id nullFlavor="NA" /> <code codeSystem="local" code= "BILIT" displayName="Bilirubin Total" /> <statusCode code="completed" / > <effectiveTime value="115423824246" /> <value unit="mg/dL" xsi:type="PQ" value="0.5" /> <referenceRange> < observationRange> <text>0.2-1.2</text> </ observationRange> </referenceRange> </observation> </ component> <component> <observation moodCode="EVN" classCode="OBS"> <templateId root="16.840.1.436419.10..22.4.2" /> <id nullFlavor="NA" /> <code codeSystem="local" code="BUN" displayName="BUN " /> <statusCode code="completed" /> <effectiveTime value= "" /> <value unit="mg/dL" xsi:type="PQ" value="6" /> <referenceRange> <observationRange> <text>4-20</text > </observationRange> </referenceRange> </observation > </component> <component> <observation moodCode="EVN" classCode="OBS"> <templateId root="16.840.1.980109.08.03.22.4.2" /> <id nullFlavor="NA" /> <code codeSystem="local" code="CA" displayName="Calcium" /> <statusCode code="completed" /> < effectiveTime value="" /> <value unit="mg/dL" xsi:type="PQ " value="9.3" /> <referenceRange> <observationRange> <text>8.6-10.0</text> </observationRange> </ referenceRange> </observation> </component> <component> <observation moodCode="EVN" classCode="OBS"> <templateId root= "11.30.840.1.844983.10.22.4.2" /> <id nullFlavor="NA" /> < code codeSystem="local" code="CL" displayName="Chloride" /> < statusCode code="completed" /> <effectiveTime value="369324690366" /> <value unit="mEq/L" xsi:type="PQ" value="108" /> < referenceRange> <observationRange> <text>99-109</text> </observationRange> </referenceRange> </observation> </component> <component> <observation moodCode="EVN" classCode ="OBS"> <templateId root="16.840.1.177892.10..4.2" /> < id nullFlavor="NA" /> <code codeSystem="local" code="CO2" displayName= "CO2" /> <statusCode code="completed" /> <effectiveTime value= "242247083378" /> <value unit="mEq/L" xsi:type="PQ" value="23" /> <referenceRange> <observationRange> <text>22-32</ text> </observationRange> </referenceRange> </ observation> </component> <component> <observation moodCode= "EVN" classCode="OBS"> <templateId root="11.30.840.1.169811.08.03.22.4.2 " /> <id nullFlavor="NA" /> <code codeSystem="local" code= "CREAT" displayName="Creatinine" /> <statusCode code="completed" /> <effectiveTime value="" /> <value unit="mg/dL" xsi: type="PQ" value="0.73" /> <referenceRange> <observationRange > <text>0.44-1.03</text> </observationRange> </ referenceRange> </observation> </component> <component> <observation moodCode="EVN" classCode="OBS"> <templateId root= "11.30.840.1.750658.08.03.22.4.2" /> <id nullFlavor="NA" /> < code codeSystem="local" code="GLOB" displayName="Globulin" /> < statusCode code="completed" /> <effectiveTime value="" /> <value unit="g/dL" xsi:type="PQ" value="2.8" /> < referenceRange> <observationRange> <text>1.9-4.3</text> </observationRange> </referenceRange> </observation > </component> <component> <observation moodCode="EVN" classCode="OBS"> <templateId root="11.30.840.1.871717.10.22.4.2" /> <id nullFlavor="NA" /> <code codeSystem="local" code="GLU" displayName="Glucose" /> <statusCode code="completed" /> < effectiveTime value="698077949034" /> <value unit="mg/dL" xsi:type="PQ " value="89" /> <referenceRange> <observationRange> <text>70-100</text> </observationRange> </ referenceRange> </observation> </component> <component> <observation moodCode="EVN" classCode="OBS"> <templateId root= "840.1.503624.08.03.22.4.2" /> <id nullFlavor="NA" /> < code codeSystem="local" code="K" displayName="Potassium" /> < statusCode code="completed" /> <effectiveTime value="544369863333" /> <value unit="mEq/L" xsi:type="PQ" value="3.6" /> < referenceRange> <observationRange> <text>3.6-5.1</text> </observationRange> </referenceRange> </observation > </component> <component> <observation moodCode="EVN" classCode="OBS"> <templateId root="11.30.840.1.664405.10.22.4.2" /> <id nullFlavor="NA" /> <code codeSystem="local" code="TP" displayName="Protein" /> <statusCode code="completed" /> < effectiveTime value="366366544272" /> <value unit="g/dL" xsi:type="PQ" value="7.0" /> <referenceRange> <observationRange> <text>6.1-7.9</text> </observationRange> </ referenceRange> </observation> </component> <component> <observation moodCode="EVN" classCode="OBS"> <templateId root= "216.840.1.435956.10...4.2" /> <id nullFlavor="NA" /> < code codeSystem="local" code="NA" displayName="Sodium" /> <statusCode code="completed" /> <effectiveTime value="694771180731" /> < value unit="mEq/L" xsi:type="PQ" value="138" /> <referenceRange> <observationRange> <text>136-144</text> </ observationRange> </referenceRange> </observation> </ component> </organizer> </entry> <entry> <organizer moodCode="EVN" classCode="BATTERY"> <templateId root="216.840.1.703182.10...4.1" /> <id nullFlavor="NA" /> <code codeSystem="local" code="LIPA" displayName="Lipase" /> <statusCode code="completed" /> <component> <observation moodCode="EVN" classCode="OBS"> <templateId root= "16.840.1.678023.10...4.2" /> <id nullFlavor="NA" /> < code codeSystem="local" code="LIPA" displayName="Lipase" /> < statusCode code="completed" /> <effectiveTime value="967216336779" /> <value unit="U/L" xsi:type="PQ" value="20" /> <referenceRange > <observationRange> <text>8-48</text> </ observationRange> </referenceRange> </observation> </ component> </organizer> </entry> <entry> <organizer moodCode="EVN" classCode="BATTERY"> <templateId root="16.840.1.687670.10.4.1" /> <id nullFlavor="NA" /> <code codeSystem="local" code="GFR" displayName ="eGFR" /> <statusCode code="completed" /> <component> < observation moodCode="EVN" classCode="OBS"> <templateId root= "11.30.840.1.238163.08.03.22.4.2" /> <id nullFlavor="NA" /> < code codeSystem="local" code="GFR" displayName="eGFR" /> <statusCode code="completed" /> <effectiveTime value="480205069631" /> < value unit="mL/min" xsi:type="PQ" value=">60" /> <referenceRange> <observationRange> <text>>60</text> </ observationRange> </referenceRange> </observation> </ component> </organizer> </entry> <entry> <organizer moodCode="EVN" classCode="BATTERY"> <templateId root="11.30.840.1.409814.10.4.1" /> <id nullFlavor="NA" /> <code codeSystem="local" code="UA" displayName= "Urinalysis with reflex microscopic" /> <statusCode code="completed" /> <component> <observation moodCode="EVN" classCode="OBS"> < templateId root="11.30.840.1.410593.08.03.224.2" /> <id nullFlavor="NA " /> <code codeSystem="local" code="UAPP" displayName="Appearance" /> <statusCode code="completed" /> <effectiveTime value= "" /> <value unit="NA" xsi:type="PQ" value="Turbid" /> <interpretationCode codeSystem="local" code="*" /> < referenceRange> <observationRange> <text /> < /observationRange> </referenceRange> </observation> </ component> <component> <observation moodCode="EVN" classCode="OBS"> <templateId root="216.840.1.872066.08.03.224.2" /> <id nullFlavor="NA" /> <code codeSystem="local" code="UBIL" displayName= "Bilirubin" /> <statusCode code="completed" /> <effectiveTime value="" /> <value unit="NA" xsi:type="PQ" value="Negative " /> <referenceRange> <observationRange> <text> Negative</text> </observationRange> </referenceRange> </observation> </component> <component> <observation moodCode ="EVN" classCode="OBS"> <templateId root= "2.16.840.1.627070.08.03.22.4.2" /> <id nullFlavor="NA" /> < code codeSystem="local" code="UBLD" displayName="Blood" /> <statusCode code="completed" /> <effectiveTime value="" /> < value unit="NA" xsi:type="PQ" value="Pos 1+" /> <interpretationCode codeSystem="local" code="*" /> <referenceRange> < observationRange> <text>Negative</text> </ observationRange> </referenceRange> </observation> </ component> <component> <observation moodCode="EVN" classCode="OBS"> <templateId root="16.840.1.296008.08.03.22.4.2" /> <id nullFlavor="NA" /> <code codeSystem="local" code="UCOLR" displayName= "Color" /> <statusCode code="completed" /> <effectiveTime value="" /> <value unit="NA" xsi:type="PQ" value="Aliza" / > <interpretationCode codeSystem="local" code="*" /> < referenceRange> <observationRange> <text /> < /observationRange> </referenceRange> </observation> </ component> <component> <observation moodCode="EVN" classCode="OBS"> <templateId root="11.30.840.1.228142.08.03.22.4.2" /> <id nullFlavor="NA" /> <code codeSystem="local" code="UGLU" displayName= "Glucose, Urine" /> <statusCode code="completed" /> < effectiveTime value="" /> <value unit="" xsi:type="PQ" value="Negative" /> <referenceRange> <observationRange> <text>Negative</text> </observationRange> </ referenceRange> </observation> </component> <component> <observation moodCode="EVN" classCode="OBS"> <templateId root= "11.30.840.1.875533.10.4.2" /> <id nullFlavor="NA" /> < code codeSystem="local" code="UKET" displayName="Ketones" /> < statusCode code="completed" /> <effectiveTime value="" /> <value unit="" xsi:type="PQ" value="Negative" /> < referenceRange> <observationRange> <text>Negative</text > </observationRange> </referenceRange> </observation > </component> <component> <observation moodCode="EVN" classCode="OBS"> <templateId root="16.840.1.341408.08.03.22.4.2" /> <id nullFlavor="NA" /> <code codeSystem="local" code="ULEU" displayName="Leukocyte Esterase" /> <statusCode code="completed" /> <effectiveTime value="" /> <value unit="NA" xsi:type ="PQ" value="Pos 3+" /> <interpretationCode codeSystem="local" code="* " /> <referenceRange> <observationRange> <text> Negative</text> </observationRange> </referenceRange> </observation> </component> <component> <observation moodCode ="EVN" classCode="OBS"> <templateId root= "11.30.840.1.359407.08.03.22.4.2" /> <id nullFlavor="NA" /> < code codeSystem="local" code="UNIT" displayName="Nitrites" /> < statusCode code="completed" /> <effectiveTime value="" /> <value unit="NA" xsi:type="PQ" value="Negative" /> < referenceRange> <observationRange> <text>Negative</text > </observationRange> </referenceRange> </observation > </component> <component> <observation moodCode="EVN" classCode="OBS"> <templateId root="11.30.840.1.714890.08.03.22.4.2" /> <id nullFlavor="NA" /> <code codeSystem="local" code="UPH" displayName="pH" /> <statusCode code="completed" /> < effectiveTime value="" /> <value unit="NA" xsi:type="PQ" value="7.0" /> <referenceRange> <observationRange> <text>5.0-8.0</text> </observationRange> </ referenceRange> </observation> </component> <component> <observation moodCode="EVN" classCode="OBS"> <templateId root= "216.840.1.789575.08.03.22.4.2" /> <id nullFlavor="NA" /> < code codeSystem="local" code="UPRO" displayName="Protein" /> < statusCode code="completed" /> <effectiveTime value="573399415556" /> <value unit="NA" xsi:type="PQ" value="Pos 2+" /> < interpretationCode codeSystem="local" code="*" /> <referenceRange> <observationRange> <text>Negative</text> </ observationRange> </referenceRange> </observation> </ component> <component> <observation moodCode="EVN" classCode="OBS"> <templateId root="11.30.840.1.841833.08.03.22.4.2" /> <id nullFlavor="NA" /> <code codeSystem="local" code="USPG" displayName= "Specific [place]" /> <statusCode code="completed" /> < effectiveTime value="981798069159" /> <value unit="NA" xsi:type="PQ" value="1.015" /> <referenceRange> <observationRange> <text>1.003-1.030</text> </observationRange> </ referenceRange> </observation> </component> <component> <observation moodCode="EVN" classCode="OBS"> <templateId root= "16.840.1.767615...4.2" /> <id nullFlavor="NA" /> < code codeSystem="local" code="UTYP" displayName="UA Collection type" /> <statusCode code="completed" /> <effectiveTime value="279169740837" / > <value unit="NA" xsi:type="PQ" value="Clean Catch" /> < referenceRange> <observationRange> <text /> < /observationRange> </referenceRange> </observation> </ component> <component> <observation moodCode="EVN" classCode="OBS"> <templateId root="840.1.036837.10.4.2" /> <id nullFlavor="NA" /> <code codeSystem="local" code="UURO" displayName= "Urobilinogen" /> <statusCode code="completed" /> < effectiveTime value="235623749021" /> <value unit="mg/dL" xsi:type="PQ " value="Negative" /> <referenceRange> <observationRange> <text><1.0</text> </observationRange> </ referenceRange> </observation> </component> </organizer> </entry > <entry> <organizer moodCode="EVN" classCode="BATTERY"> <templateId root="840.1.488624.08.03.22.4.1" /> <id nullFlavor="NA" /> <code codeSystem="local" code="UMIC" displayName="Urine Microscopic" /> < statusCode code="completed" /> <component> <observation moodCode= "EVN" classCode="OBS"> <templateId root="11.30.840.1.960626.22.4.2 " /> <id nullFlavor="NA" /> <code codeSystem="local" code= "UTRIC" displayName="Trichomonas" /> <statusCode code="completed" /> <effectiveTime value="527418092235" /> <value unit="NA" xsi: type="PQ" value="Present" /> <interpretationCode codeSystem="local" code="*" /> <referenceRange> <observationRange> <text /> </observationRange> </referenceRange> </ observation> </component> <component> <observation moodCode= "EVN" classCode="OBS"> <templateId root="16.840.1.027279.10.4.2 " /> <id nullFlavor="NA" /> <code codeSystem="local" code= "UBAC" displayName="Bacteria" /> <statusCode code="completed" /> <effectiveTime value="386455867939" /> <value unit="NA" xsi:type= "PQ" value="Moderate" /> <interpretationCode codeSystem="local" code="* " /> <referenceRange> <observationRange> <text /> </observationRange> </referenceRange> </ observation> </component> <component> <observation moodCode= "EVN" classCode="OBS"> <templateId root="11.30.840.1.509636.08.03.22.4.2 " /> <id nullFlavor="NA" /> <code codeSystem="local" code= "UEPI" displayName="Epithelial Cells" /> <statusCode code="completed" / > <effectiveTime value="789788554570" /> <value unit="/HPF" xsi:type="PQ" value="10" /> <referenceRange> < observationRange> <text /> </observationRange> </referenceRange> </observation> </component> <component> <observation moodCode="EVN" classCode="OBS"> <templateId root= "11.30.840.1.299808.08.03.22.4.2" /> <id nullFlavor="NA" /> < code codeSystem="local" code="URBC" displayName="RBC, Urine" /> < statusCode code="completed" /> <effectiveTime value="552610875591" /> <value unit="/HPF" xsi:type="PQ" value="2" /> <referenceRange > <observationRange> <text>0-2</text> </ observationRange> </referenceRange> </observation> </ component> <component> <observation moodCode="EVN" classCode="OBS"> <templateId root="216.840.1.849016.10..22.4.2" /> <id nullFlavor="NA" /> <code codeSystem="local" code="UMUC" displayName= "Urine Mucus" /> <statusCode code="completed" /> < effectiveTime value="142069351495" /> <value unit="NA" xsi:type="PQ" value="Present" /> <referenceRange> <observationRange> <text /> </observationRange> </referenceRange> </observation> </component> <component> <observation moodCode="EVN" classCode="OBS"> <templateId root= "216.840.1.839105.10..22.4.2" /> <id nullFlavor="NA" /> < code codeSystem="local" code="UWBC" displayName="WBC, Urine" /> < statusCode code="completed" /> <effectiveTime value="486073642305" /> <value unit="/HPF" xsi:type="PQ" value="10" /> < interpretationCode codeSystem="local" code="*" /> <referenceRange> <observationRange> <text>0-4</text> </ observationRange> </referenceRange> </observation> </ component> </organizer> </entry> <entry> <organizer moodCode="EVN" classCode="BATTERY"> <templateId root="16.840.1.033436.10..4.1" /> <id nullFlavor="NA" /> <code codeSystem="local" code="PREGN" displayName=" Screen, Urine NPT" /> <statusCode code="completed" / > <component> <observation moodCode="EVN" classCode="OBS"> <templateId root="11.30.840.1.861820.08.03.22.4.2" /> <id nullFlavor="NA " /> <code codeSystem="local" code="PREGN" displayName=" Screen, Urine NPT" /> <statusCode code="completed" /> < effectiveTime value="755145640866" /> <value unit="NA" xsi:type="PQ" value="Negative" /> <referenceRange> <observationRange> <text /> </observationRange> </referenceRange> </observation> </component> </organizer> </entry> <entry> < organizer moodCode="EVN" classCode="BATTERY"> <templateId root= "11.30.840.1.596055.08.03.22.4.1" /> <id nullFlavor="NA" /> <code codeSystem="local" code="UPREG" displayName=" Screen, Urine" /> < statusCode code="completed" /> <component> <observation moodCode= "EVN" classCode="OBS"> <templateId root="11.30.840.1.424728.10..4.2 " /> <id nullFlavor="NA" /> <code codeSystem="local" code= "UPREG" displayName=" Screen, Urine" /> <statusCode code= "completed" /> <effectiveTime value="968575530263" /> <value unit="NA" xsi:type="PQ" value="Negative" /> <referenceRange> <observationRange> <text /> </observationRange> </referenceRange> </observation> </component> </organizer> < /entry> <entry> <organizer moodCode="EVN" classCode="BATTERY"> < templateId root="216.840.1.093371.10..22.4.1" /> <id nullFlavor="NA" /> <code codeSystem="local" code="UA" displayName="Urinalysis with reflex microscopic" /> <statusCode code="completed" /> <component> < observation moodCode="EVN" classCode="OBS"> <templateId root= "216.840.1.631613.08.03.22.4.2" /> <id nullFlavor="NA" /> < code codeSystem="local" code="UAPP" displayName="Appearance" /> < statusCode code="completed" /> <effectiveTime value="212762010609" /> <value unit="NA" xsi:type="PQ" value="Sl Cloudy" /> < referenceRange> <observationRange> <text /> < /observationRange> </referenceRange> </observation> </ component> <component> <observation moodCode="EVN" classCode="OBS"> <templateId root="216.840.1.153368...4.2" /> <id nullFlavor="NA" /> <code codeSystem="local" code="UBIL" displayName= "Bilirubin" /> <statusCode code="completed" /> <effectiveTime value="308187138386" /> <value unit="NA" xsi:type="PQ" value="Negative " /> <referenceRange> <observationRange> <text> Negative</text> </observationRange> </referenceRange> </observation> </component> <component> <observation moodCode ="EVN" classCode="OBS"> <templateId root= "11.30.840.1.595050.10..4.2" /> <id nullFlavor="NA" /> < code codeSystem="local" code="UBLD" displayName="Blood" /> <statusCode code="completed" /> <effectiveTime value="" /> < value unit="NA" xsi:type="PQ" value="Negative" /> <referenceRange> <observationRange> <text>Negative</text> </ observationRange> </referenceRange> </observation> </ component> <component> <observation moodCode="EVN" classCode="OBS"> <templateId root="11.30.840.1.852761.08.03.22.4.2" /> <id nullFlavor="NA" /> <code codeSystem="local" code="UCOLR" displayName= "Color" /> <statusCode code="completed" /> <effectiveTime value="" /> <value unit="NA" xsi:type="PQ" value="Aliza" / > <interpretationCode codeSystem="local" code="*" /> < referenceRange> <observationRange> <text /> < /observationRange> </referenceRange> </observation> </ component> <component> <observation moodCode="EVN" classCode="OBS"> <templateId root="11.30.840.1.180045.08.03.22.4.2" /> <id nullFlavor="NA" /> <code codeSystem="local" code="UGLU" displayName= "Glucose, Urine" /> <statusCode code="completed" /> < effectiveTime value="" /> <value unit="" xsi:type="PQ" value="Negative" /> <referenceRange> <observationRange> <text>Negative</text> </observationRange> </ referenceRange> </observation> </component> <component> <observation moodCode="EVN" classCode="OBS"> <templateId root= "216.840.1.701252.10..4.2" /> <id nullFlavor="NA" /> < code codeSystem="local" code="UKET" displayName="Ketones" /> < statusCode code="completed" /> <effectiveTime value="" /> <value unit="" xsi:type="PQ" value="Trace" /> < interpretationCode codeSystem="local" code="*" /> <referenceRange> <observationRange> <text>Negative</text> </ observationRange> </referenceRange> </observation> </ component> <component> <observation moodCode="EVN" classCode="OBS"> <templateId root="11.30.840.1.977769.08.03.224.2" /> <id nullFlavor="NA" /> <code codeSystem="local" code="ULEU" displayName= "Leukocyte Esterase" /> <statusCode code="completed" /> < effectiveTime value="" /> <value unit="NA" xsi:type="PQ" value="Pos 3+" /> <interpretationCode codeSystem="local" code="*" /> <referenceRange> <observationRange> <text> Negative</text> </observationRange> </referenceRange> </observation> </component> <component> <observation moodCode ="EVN" classCode="OBS"> <templateId root= "11.30.840.1.322973.10..4.2" /> <id nullFlavor="NA" /> < code codeSystem="local" code="UNIT" displayName="Nitrites" /> < statusCode code="completed" /> <effectiveTime value="" /> <value unit="NA" xsi:type="PQ" value="Positive" /> < interpretationCode codeSystem="local" code="*" /> <referenceRange> <observationRange> <text>Negative</text> </ observationRange> </referenceRange> </observation> </ component> <component> <observation moodCode="EVN" classCode="OBS"> <templateId root="840.1.668240.1022.4.2" /> <id nullFlavor="NA" /> <code codeSystem="local" code="UPH" displayName="pH " /> <statusCode code="completed" /> <effectiveTime value= "692733236192" /> <value unit="NA" xsi:type="PQ" value="5.0" /> <referenceRange> <observationRange> <text>5.0-8.0</ text> </observationRange> </referenceRange> </ observation> </component> <component> <observation moodCode= "EVN" classCode="OBS"> <templateId root="840.1.309236.08.03.22.4.2 " /> <id nullFlavor="NA" /> <code codeSystem="local" code= "UPRO" displayName="Protein" /> <statusCode code="completed" /> <effectiveTime value="140256347938" /> <value unit="NA" xsi:type="PQ " value="Negative" /> <referenceRange> <observationRange> <text>Negative</text> </observationRange> </ referenceRange> </observation> </component> <component> <observation moodCode="EVN" classCode="OBS"> <templateId root= "11.30.840.1.662047.22.4.2" /> <id nullFlavor="NA" /> < code codeSystem="local" code="USPG" displayName="Specific [place]" /> < statusCode code="completed" /> <effectiveTime value="652074876661" /> <value unit="NA" xsi:type="PQ" value="1.010" /> < referenceRange> <observationRange> <text>1.003-1.030</ text> </observationRange> </referenceRange> </ observation> </component> <component> <observation moodCode= "EVN" classCode="OBS"> <templateId root="2.16.840.1.057424.10.20.22.4.2 " /> <id nullFlavor="NA" /> <code codeSystem="local" code= "UTYP" displayName="UA Collection type" /> <statusCode code="completed " /> <effectiveTime value="746188122595" /> <value unit="NA" xsi:type="PQ" value="Clean Catch" /> <referenceRange> < observationRange> <text /> </observationRange> </referenceRange> </observation> </component> <component> <observation moodCode="EVN" classCode="OBS"> <templateId root= "2.16.840.1.049769.10.20.22.4.2" /> <id nullFlavor="NA" /> < code codeSystem="local" code="UURO" displayName="Urobilinogen" /> < statusCode code="completed" /> <effectiveTime value="240419718478" /> <value unit="mg/dL" xsi:type="PQ" value="2.0" /> < interpretationCode codeSystem="local" code="*" /> <referenceRange> <observationRange> <text><1.0</text> </ observationRange> </referenceRange> </observation> </ component> </organizer> </entry> <entry> <organizer moodCode="EVN" classCode="BATTERY"> <templateId root="840.1.575047.08.03.22.4.1" /> <id nullFlavor="NA" /> <code codeSystem="local" code="UMIC" displayName="Urine Microscopic" /> <statusCode code="completed" /> < component> <observation moodCode="EVN" classCode="OBS"> < templateId root="840.1.390186.08.03.224.2" /> <id nullFlavor="NA " /> <code codeSystem="local" code="UBAC" displayName="Bacteria" /> <statusCode code="completed" /> <effectiveTime value= "808802238630" /> <value unit="NA" xsi:type="PQ" value="Occasional" /> <interpretationCode codeSystem="local" code="*" /> < referenceRange> <observationRange> <text /> < /observationRange> </referenceRange> </observation> </ component> <component> <observation moodCode="EVN" classCode="OBS"> <templateId root="840.1.215145.08.03.224.2" /> <id nullFlavor="NA" /> <code codeSystem="local" code="UEPI" displayName= "Epithelial Cells" /> <statusCode code="completed" /> < effectiveTime value="310068499616" /> <value unit="/HPF" xsi:type="PQ" value="2" /> <referenceRange> <observationRange> <text /> </observationRange> </referenceRange> </ observation> </component> <component> <observation moodCode= "EVN" classCode="OBS"> <templateId root="840.1.424926.08.03.22.4.2 " /> <id nullFlavor="NA" /> <code codeSystem="local" code= "URBC" displayName="RBC, Urine" /> <statusCode code="completed" /> <effectiveTime value="570207567434" /> <value unit="/HPF" xsi: type="PQ" value="0" /> <referenceRange> <observationRange> <text>0-2</text> </observationRange> </ referenceRange> </observation> </component> <component> <observation moodCode="EVN" classCode="OBS"> <templateId root= "2.16.840.1.477821.10..22.4.2" /> <id nullFlavor="NA" /> < code codeSystem="local" code="UMUC" displayName="Urine Mucus" /> < statusCode code="completed" /> <effectiveTime value="535383615989" /> <value unit="NA" xsi:type="PQ" value="Present" /> < referenceRange> <observationRange> <text /> < /observationRange> </referenceRange> </observation> </ component> <component> <observation moodCode="EVN" classCode="OBS"> <templateId root="2.16.840.1.825938.10..22.4.2" /> <id nullFlavor="NA" /> <code codeSystem="local" code="UWBC" displayName= "WBC, Urine" /> <statusCode code="completed" /> < effectiveTime value="884990749722" /> <value unit="/HPF" xsi:type="PQ" value="10" /> <interpretationCode codeSystem="local" code="*" /> <referenceRange> <observationRange> <text>0-4</text > </observationRange> </referenceRange> </observation > </component> </organizer> </entry> <entry> <organizer moodCode= "EVN" classCode="BATTERY"> <templateId root="840.1.815312.10..4.1 " /> <id nullFlavor="NA" /> <code codeSystem="local" code="UDRGH" displayName="Urine Drug Screen" /> <statusCode code="completed" /> < component> <observation moodCode="EVN" classCode="OBS"> < templateId root="840.1.512710.08.03.22.4.2" /> <id nullFlavor="NA " /> <code codeSystem="local" code="UAMP1" displayName="Amph/Meth/ Ecstasy" /> <statusCode code="completed" /> <effectiveTime value="215052460770" /> <value unit="NA" xsi:type="PQ" value="Positive " /> <interpretationCode codeSystem="local" code="*" /> < referenceRange> <observationRange> <text /> < /observationRange> </referenceRange> </observation> </ component> <component> <observation moodCode="EVN" classCode="OBS"> <templateId root="840.1.675717.08.03.22.4.2" /> <id nullFlavor="NA" /> <code codeSystem="local" code="UBAR1" displayName= "Barbiturates" /> <statusCode code="completed" /> < effectiveTime value="306542624879" /> <value unit="NA" xsi:type="PQ" value="Negative" /> <referenceRange> <observationRange> <text /> </observationRange> </referenceRange> </observation> </component> <component> <observation moodCode="EVN" classCode="OBS"> <templateId root= "11.30.840.1.218285.08.03.22.4.2" /> <id nullFlavor="NA" /> < code codeSystem="local" code="UBEN1" displayName="Benzodiazepine" /> < statusCode code="completed" /> <effectiveTime value="798705901080" /> <value unit="NA" xsi:type="PQ" value="Negative" /> < referenceRange> <observationRange> <text /> < /observationRange> </referenceRange> </observation> </ component> <component> <observation moodCode="EVN" classCode="OBS"> <templateId root="216.840.1.929464.10...4.2" /> <id nullFlavor="NA" /> <code codeSystem="local" code="UCAN1" displayName= "Cannabinoid" /> <statusCode code="completed" /> < effectiveTime value="642792279595" /> <value unit="NA" xsi:type="PQ" value="Positive" /> <interpretationCode codeSystem="local" code="*" /> <referenceRange> <observationRange> <text /> </observationRange> </referenceRange> </observation> </component> <component> <observation moodCode="EVN" classCode ="OBS"> <templateId root="16.840.1.731549.10..22.4.2" /> < id nullFlavor="NA" /> <code codeSystem="local" code="UCOC1" displayName ="Cocaine" /> <statusCode code="completed" /> <effectiveTime value="407810988404" /> <value unit="NA" xsi:type="PQ" value="Negative " /> <referenceRange> <observationRange> <text /> </observationRange> </referenceRange> </ observation> </component> <component> <observation moodCode= "EVN" classCode="OBS"> <templateId root="11.30.830.1.545185.10..22.4.2 " /> <id nullFlavor="NA" /> <code codeSystem="local" code= "UMTD1" displayName="EDDP (Methadone met.)" /> <statusCode code= "completed" /> <effectiveTime value="403055829863" /> <value unit="NA" xsi:type="PQ" value="Negative" /> <referenceRange> <observationRange> <text /> </observationRange> </referenceRange> </observation> </component> <component> <observation moodCode="EVN" classCode="OBS"> <templateId root= "2.16.840.1.737679.08.03.22.4.2" /> <id nullFlavor="NA" /> < code codeSystem="local" code="UOPI1" displayName="Opiate" /> < statusCode code="completed" /> <effectiveTime value="337347381254" /> <value unit="NA" xsi:type="PQ" value="Negative" /> < referenceRange> <observationRange> <text /> < /observationRange> </referenceRange> </observation> </ component> <component> <observation moodCode="EVN" classCode="OBS"> <templateId root="2.16.840.1.386163.08.03..4.2" /> <id nullFlavor="NA" /> <code codeSystem="local" code="UPCP1" displayName= "Phencyclidine (PCP)" /> <statusCode code="completed" /> < effectiveTime value="" /> <value unit="NA" xsi:type="PQ" value="Negative" /> <referenceRange> <observationRange> <text /> </observationRange> </referenceRange> </observation> </component> </organizer> </entry> <entry> < organizer moodCode="EVN" classCode="BATTERY"> <templateId root= "16.840.1.426827.10...4.1" /> <id nullFlavor="NA" /> <code codeSystem="local" code="UA" displayName="URINALYSIS, ROUTINE" /> < statusCode code="completed" /> <component> <observation moodCode= "EVN" classCode="OBS"> <templateId root="11.30.840.1.105695.10..4.2 " /> <id nullFlavor="NA" /> <code codeSystem="local" code= "LEUESU" displayName="UA LEUKOCYTE ESTERASE DIPSTICK" /> <statusCode code="completed" /> <effectiveTime value="020610350097" /> < value unit="" xsi:type="PQ" value="NEGATIVE" /> <referenceRange> <observationRange> <text>NEGATIVE</text> </ observationRange> </referenceRange> </observation> </ component> <component> <observation moodCode="EVN" classCode="OBS"> <templateId root="11.30.840.1.565364...4.2" /> <id nullFlavor="NA" /> <code codeSystem="local" code="NITRIU" displayName= "UA NITRITE DIPSTICK" /> <statusCode code="completed" /> < effectiveTime value="879939689914" /> <value unit="" xsi:type="PQ" value="NEGATIVE" /> <referenceRange> <observationRange> <text>NEGATIVE</text> </observationRange> </ referenceRange> </observation> </component> <component> <observation moodCode="EVN" classCode="OBS"> <templateId root= "11.30.840.1.473247...4.2" /> <id nullFlavor="NA" /> < code codeSystem="local" code="PROTEIU" displayName="UA PROTEIN DIPSTICK" /> <statusCode code="completed" /> <effectiveTime value= "159324258909" /> <value unit="" xsi:type="PQ" value="NEGATIVE" /> <referenceRange> <observationRange> <text>NEGATIVE </text> </observationRange> </referenceRange> </ observation> </component> <component> <observation moodCode= "EVN" classCode="OBS"> <templateId root="840.1.478439.10...4.2 " /> <id nullFlavor="NA" /> <code codeSystem="local" code= "DGLUU" displayName="UA GLUCOSE DIPSTICK" /> <statusCode code= "completed" /> <effectiveTime value="" /> <value unit="" xsi:type="PQ" value="NEGATIVE" /> <referenceRange> < observationRange> <text>NEGATIVE</text> </ observationRange> </referenceRange> </observation> </ component> <component> <observation moodCode="EVN" classCode="OBS"> <templateId root="840.1.467866.10..22.4.2" /> <id nullFlavor="NA" /> <code codeSystem="local" code="KETONU" displayName= "UA KETONE DIPSTICK" /> <statusCode code="completed" /> < effectiveTime value="179046027197" /> <value unit="" xsi:type="PQ" value="NEGATIVE" /> <referenceRange> <observationRange> <text>NEGATIVE</text> </observationRange> </ referenceRange> </observation> </component> <component> <observation moodCode="EVN" classCode="OBS"> <templateId root= "11.30.830.1.860978.10..22.4.2" /> <id nullFlavor="NA" /> < code codeSystem="local" code="UROBILU" displayName="UA UROBILINOGEN DIPSTICK" / > <statusCode code="completed" /> <effectiveTime value= "859320485005" /> <value unit="" xsi:type="PQ" value="NORMAL" /> <referenceRange> <observationRange> <text>NORMAL</ text> </observationRange> </referenceRange> </ observation> </component> <component> <observation moodCode= "EVN" classCode="OBS"> <templateId root="216.840.1.398290.10..4.2 " /> <id nullFlavor="NA" /> <code codeSystem="local" code= "BILU" displayName="UA BILIRUBIN DIPSTICK" /> <statusCode code= "completed" /> <effectiveTime value="459655094538" /> <value unit="" xsi:type="PQ" value="NEGATIVE" /> <referenceRange> < observationRange> <text>NEGATIVE</text> </ observationRange> </referenceRange> </observation> </ component> <component> <observation moodCode="EVN" classCode="OBS"> <templateId root="216.840.1.888230.10.22.4.2" /> <id nullFlavor="NA" /> <code codeSystem="local" code="ABDELRAHMAN" displayName="UA BLOOD DIPSTICK" /> <statusCode code="completed" /> < effectiveTime value="119649451322" /> <value unit="" xsi:type="PQ" value="NEGATIVE" /> <referenceRange> <observationRange> <text>NEGATIVE</text> </observationRange> </ referenceRange> </observation> </component> <component> <observation moodCode="EVN" classCode="OBS"> <templateId root= "2.16.840.1.833290.10..4.2" /> <id nullFlavor="NA" /> < code codeSystem="local" code="SPGRU" displayName="UA SPECIFIC GRAVITY" /> <statusCode code="completed" /> <effectiveTime value="572085347089 " /> <value unit="" xsi:type="PQ" value=">=1.030" /> < interpretationCode codeSystem="local" code="*" /> <referenceRange> <observationRange> <text>1.015-1.025</text> </ observationRange> </referenceRange> </observation> </ component> <component> <observation moodCode="EVN" classCode="OBS"> <templateId root="216.840.1.219091.08.03.22.4.2" /> <id nullFlavor="NA" /> <code codeSystem="local" code="COLTON" displayName="UR PH" /> <statusCode code="completed" /> <effectiveTime value= "291043281950" /> <value unit="" xsi:type="PQ" value="5.5" /> <referenceRange> <observationRange> <text>5.0-7.0</text > </observationRange> </referenceRange> </observation > </component> </organizer> </entry> <entry> <organizer moodCode= "EVN" classCode="BATTERY"> <templateId root="2.16.840.1.713965.10..22.4.1 " /> <id nullFlavor="NA" /> <code codeSystem="local" code="PREGU" displayName="UR TEST" /> <statusCode code="completed" /> < component> <observation moodCode="EVN" classCode="OBS"> < templateId root="11.30.840.1.038928.10...4.2" /> <id nullFlavor="NA " /> <code codeSystem="local" code="PREGU" displayName="UR TEST" /> <statusCode code="completed" /> <effectiveTime value= "492322929670" /> <value unit="" xsi:type="PQ" value="NEGATIVE" /> <referenceRange> <observationRange> <text>NEGATIVE </text> </observationRange> </referenceRange> </ observation> </component> </organizer> </entry> <entry> <organizer moodCode="EVN" classCode="BATTERY"> <templateId root= "11.30.840.1.367293.08.03.22.4.1" /> <id nullFlavor="NA" /> <code codeSystem="local" code="UPREG" displayName=" Screen, Urine" /> < statusCode code="completed" /> <component> <observation moodCode= "EVN" classCode="OBS"> <templateId root="11.30.840.1.466386....4.2 " /> <id nullFlavor="NA" /> <code codeSystem="local" code= "UPREG" displayName=" Screen, Urine" /> <statusCode code= "completed" /> <effectiveTime value="564324951699" /> <value unit="NA" xsi:type="PQ" value="Negative" /> <referenceRange> <observationRange> <text /> </observationRange> </referenceRange> </observation> </component> </organizer> < /entry> <entry> <organizer moodCode="EVN" classCode="BATTERY"> < templateId root="16.840.1.438814.08.03.22.4.1" /> <id nullFlavor="NA" /> <code codeSystem="local" code="CBCWD" displayName="CBC With Platelet and Differential" /> <statusCode code="completed" /> <component> < observation moodCode="EVN" classCode="OBS"> <templateId root= "11.30.840.1.718536.10.20..4.2" /> <id nullFlavor="NA" /> < code codeSystem="local" code="ABASR" displayName="Absolute Basophils" /> <statusCode code="completed" /> <effectiveTime value="" /> <value unit="10*3/uL" xsi:type="PQ" value="0.03" /> < referenceRange> <observationRange> <text>0.00-0.20</text > </observationRange> </referenceRange> </observation > </component> <component> <observation moodCode="EVN" classCode="OBS"> <templateId root="840.1.764913.10.4.2" /> <id nullFlavor="NA" /> <code codeSystem="local" code="AEOSR" displayName="Absolute Eosinophils" /> <statusCode code="completed" /> <effectiveTime value="157222544246" /> <value unit="10*3/uL" xsi:type="PQ" value="0.49" /> <referenceRange> < observationRange> <text>0.00-0.50</text> </ observationRange> </referenceRange> </observation> </ component> <component> <observation moodCode="EVN" classCode="OBS"> <templateId root="11.30.840.1.752146.10.20.22.4.2" /> <id nullFlavor="NA" /> <code codeSystem="local" code="ALYMR" displayName= "Absolute Lymphocytes" /> <statusCode code="completed" /> < effectiveTime value="663698424027" /> <value unit="10*3/uL" xsi:type= "PQ" value="2.01" /> <referenceRange> <observationRange> <text>0.80-3.30</text> </observationRange> </ referenceRange> </observation> </component> <component> <observation moodCode="EVN" classCode="OBS"> <templateId root= "11.30.840.1.064666.10.20.22.4.2" /> <id nullFlavor="NA" /> < code codeSystem="local" code="AMONR" displayName="Absolute Monocytes" /> <statusCode code="completed" /> <effectiveTime value="125965784841" /> <value unit="10*3/uL" xsi:type="PQ" value="0.72" /> < referenceRange> <observationRange> <text>0.30-1.00</text > </observationRange> </referenceRange> </observation > </component> <component> <observation moodCode="EVN" classCode="OBS"> <templateId root="11.30.840.1.673699.10.20.22.4.2" /> <id nullFlavor="NA" /> <code codeSystem="local" code="ASEGR" displayName="Absolute Neutrophils" /> <statusCode code="completed" /> <effectiveTime value="959213806670" /> <value unit="10*3/uL" xsi:type="PQ" value="5.63" /> <referenceRange> < observationRange> <text>1.90-7.00</text> </ observationRange> </referenceRange> </observation> </ component> <component> <observation moodCode="EVN" classCode="OBS"> <templateId root="11.30.830.1.282436.10.22.4.2" /> <id nullFlavor="NA" /> <code codeSystem="local" code="BASOR" displayName= "Basophils" /> <statusCode code="completed" /> <effectiveTime value="" /> <value unit="%" xsi:type="PQ" value="0" /> <referenceRange> <observationRange> <text>0-2< /text> </observationRange> </referenceRange> </ observation> </component> <component> <observation moodCode= "EVN" classCode="OBS"> <templateId root="216.840.1.159161.08.03.22.4.2 " /> <id nullFlavor="NA" /> <code codeSystem="local" code= "EOSR" displayName="Eosinophils" /> <statusCode code="completed" /> <effectiveTime value="" /> <value unit="%" xsi: type="PQ" value="6" /> <interpretationCode codeSystem="local" code="*" /> <referenceRange> <observationRange> <text>0- 4</text> </observationRange> </referenceRange> </ observation> </component> <component> <observation moodCode= "EVN" classCode="OBS"> <templateId root="16.840.1.327953.10.4.2 " /> <id nullFlavor="NA" /> <code codeSystem="local" code="HCT " displayName="HCT" /> <statusCode code="completed" /> < effectiveTime value="" /> <value unit="%" xsi:type="PQ " value="36.1" /> <interpretationCode codeSystem="local" code="*" /> <referenceRange> <observationRange> <text>37.0- 47.0</text> </observationRange> </referenceRange> </ observation> </component> <component> <observation moodCode= "EVN" classCode="OBS"> <templateId root="216.840.1.942668.10.20.22.4.2 " /> <id nullFlavor="NA" /> <code codeSystem="local" code="HGB " displayName="HGB" /> <statusCode code="completed" /> < effectiveTime value="031444112642" /> <value unit="g/dL" xsi:type="PQ" value="12.3" /> <referenceRange> <observationRange> <text>12.0-16.0</text> </observationRange> </ referenceRange> </observation> </component> <component> <observation moodCode="EVN" classCode="OBS"> <templateId root= "11.30.840.1.213053.10..4.2" /> <id nullFlavor="NA" /> < code codeSystem="local" code="IMGA" displayName="Immature Granulocytes" /> <statusCode code="completed" /> <effectiveTime value="202800927163 " /> <value unit="%" xsi:type="PQ" value="0.2" /> < referenceRange> <observationRange> <text>0.0-1.0</text> </observationRange> </referenceRange> </observation > </component> <component> <observation moodCode="EVN" classCode="OBS"> <templateId root="11.30.840.1.012309.10.20.22.4.2" /> <id nullFlavor="NA" /> <code codeSystem="local" code="LYMPR" displayName="Lymphocytes" /> <statusCode code="completed" /> < effectiveTime value="" /> <value unit="%" xsi:type="PQ " value="23" /> <referenceRange> <observationRange> <text>20-46</text> </observationRange> </ referenceRange> </observation> </component> <component> <observation moodCode="EVN" classCode="OBS"> <templateId root= "216.840.1.737010.10.2022.4.2" /> <id nullFlavor="NA" /> < code codeSystem="local" code="[facility]" displayName="[facility]" /> <statusCode code="completed" /> <effectiveTime value="" /> < value unit="pg" xsi:type="PQ" value="31.3" /> <referenceRange> <observationRange> <text>27.0-32.0</text> </ observationRange> </referenceRange> </observation> </ component> <component> <observation moodCode="EVN" classCode="OBS"> <templateId root="216.840.1.393967..22.4.2" /> <id nullFlavor="NA" /> <code codeSystem="local" code[facility]" displayName= "[facility]" /> <statusCode code="completed" /> <effectiveTime value ="" /> <value unit="g/dL" xsi:type="PQ" value="34.1" /> <referenceRange> <observationRange> <text>32.0- 36.0</text> </observationRange> </referenceRange> </ observation> </component> <component> <observation moodCode= "EVN" classCode="OBS"> <templateId root="216.840.1.373224.10.20.22.4.2 " /> <id nullFlavor="NA" /> <code codeSystem="local" code="MCV " displayName="MCV" /> <statusCode code="completed" /> < effectiveTime value="" /> <value unit="fL" xsi:type="PQ" value="91.9" /> <referenceRange> <observationRange> <text>82.0-99.0</text> </observationRange> </ referenceRange> </observation> </component> <component> <observation moodCode="EVN" classCode="OBS"> <templateId root= "11.30.840.1.600088.10.20.22.4.2" /> <id nullFlavor="NA" /> < code codeSystem="local" code="MONOR" displayName="Monocytes" /> < statusCode code="completed" /> <effectiveTime value="" /> <value unit="%" xsi:type="PQ" value="8" /> <referenceRange > <observationRange> <text>4-11</text> </ observationRange> </referenceRange> </observation> </ component> <component> <observation moodCode="EVN" classCode="OBS"> <templateId root="11.30.840.1.057892.10.20.22.4.2" /> <id nullFlavor="NA" /> <code codeSystem="local" code="MPV" displayName="MPV " /> <statusCode code="completed" /> <effectiveTime value= "" /> <value unit="fL" xsi:type="PQ" value="10.1" /> <referenceRange> <observationRange> <text>9.4-12.4</ text> </observationRange> </referenceRange> </ observation> </component> <component> <observation moodCode= "EVN" classCode="OBS"> <templateId root="16.840.1.768143.10..22.4.2 " /> <id nullFlavor="NA" /> <code codeSystem="local" code= "SEGR" displayName="Neutrophils" /> <statusCode code="completed" /> <effectiveTime value="" /> <value unit="%" xsi: type="PQ" value="63" /> <referenceRange> <observationRange> <text>51-75</text> </observationRange> </ referenceRange> </observation> </component> <component> <observation moodCode="EVN" classCode="OBS"> <templateId root= "216.840.1.287899.10..4.2" /> <id nullFlavor="NA" /> < code codeSystem="local" code="NRBCA" displayName="Nucleated RBC Automated" /> <statusCode code="completed" /> <effectiveTime value= "" /> <value unit="/100WBC" xsi:type="PQ" value="0.0" /> <referenceRange> <observationRange> <text /> </observationRange> </referenceRange> </observation> </component> <component> <observation moodCode="EVN" classCode= "OBS"> <templateId root="16.840.1.825438.1022.4.2" /> < id nullFlavor="NA" /> <code codeSystem="local" code="PLT" displayName= "Platelet Count" /> <statusCode code="completed" /> < effectiveTime value="" /> <value unit="K/uL" xsi:type="PQ" value="240" /> <referenceRange> <observationRange> <text>150-400</text> </observationRange> </ referenceRange> </observation> </component> <component> <observation moodCode="EVN" classCode="OBS"> <templateId root= "2.16.840.1.152327.10..22.4.2" /> <id nullFlavor="NA" /> < code codeSystem="local" code="RBC" displayName="RBC" /> <statusCode code="completed" /> <effectiveTime value="" /> < value unit="10*6/uL" xsi:type="PQ" value="3.93" /> <interpretationCode codeSystem="local" code="*" /> <referenceRange> < observationRange> <text>4.00-5.20</text> </ observationRange> </referenceRange> </observation> </ component> <component> <observation moodCode="EVN" classCode="OBS"> <templateId root="216.840.1.650958.08.03.22.4.2" /> <id nullFlavor="NA" /> <code codeSystem="local" code="RDW" displayName="RDW " /> <statusCode code="completed" /> <effectiveTime value= "" /> <value unit="%" xsi:type="PQ" value="12.9" /> <referenceRange> <observationRange> <text>11.5- 14.5</text> </observationRange> </referenceRange> </ observation> </component> <component> <observation moodCode= "EVN" classCode="OBS"> <templateId root="216.840.1.108624.10..22.4.2 " /> <id nullFlavor="NA" /> <code codeSystem="local" code= "WBCIR" displayName="WBC" /> <statusCode code="completed" /> < effectiveTime value="" /> <value unit="K/uL" xsi:type="PQ" value="8.9" /> <referenceRange> <observationRange> <text>4.8-10.8</text> </observationRange> </ referenceRange> </observation> </component> </organizer> </entry > <entry> <organizer moodCode="EVN" classCode="BATTERY"> <templateId root="11.30.840.1.391695.1022.4.1" /> <id nullFlavor="NA" /> <code codeSystem="local" code="UA" displayName="Urinalysis with reflex microscopic" / > <statusCode code="completed" /> <component> <observation moodCode="EVN" classCode="OBS"> <templateId root= "11.30.840.1.113168.10...4.2" /> <id nullFlavor="NA" /> < code codeSystem="local" code="UAPP" displayName="Appearance" /> < statusCode code="completed" /> <effectiveTime value="942844536819" /> <value unit="NA" xsi:type="PQ" value="Sl Cloudy" /> < referenceRange> <observationRange> <text /> < /observationRange> </referenceRange> </observation> </ component> <component> <observation moodCode="EVN" classCode="OBS"> <templateId root="11.30.840.1.015737.1022.4.2" /> <id nullFlavor="NA" /> <code codeSystem="local" code="UBIL" displayName= "Bilirubin" /> <statusCode code="completed" /> <effectiveTime value="418345967583" /> <value unit="NA" xsi:type="PQ" value="Positive " /> <interpretationCode codeSystem="local" code="*" /> < referenceRange> <observationRange> <text>Negative</text > </observationRange> </referenceRange> </observation > </component> <component> <observation moodCode="EVN" classCode="OBS"> <templateId root="11.30.840.1.237919.10.4.2" /> <id nullFlavor="NA" /> <code codeSystem="local" code="UBLD" displayName="Blood" /> <statusCode code="completed" /> < effectiveTime value="" /> <value unit="NA" xsi:type="PQ" value="Negative" /> <referenceRange> <observationRange> <text>Negative</text> </observationRange> </ referenceRange> </observation> </component> <component> <observation moodCode="EVN" classCode="OBS"> <templateId root= "840.1.356372.08.03.224.2" /> <id nullFlavor="NA" /> < code codeSystem="local" code="UCOLR" displayName="Color" /> < statusCode code="completed" /> <effectiveTime value="" /> <value unit="NA" xsi:type="PQ" value="Aliza" /> < interpretationCode codeSystem="local" code="*" /> <referenceRange> <observationRange> <text /> </observationRange> </referenceRange> </observation> </component> < component> <observation moodCode="EVN" classCode="OBS"> < templateId root="11.30.840.1.926604.08.03.22.4.2" /> <id nullFlavor="NA " /> <code codeSystem="local" code="UGLU" displayName="Glucose, Urine" /> <statusCode code="completed" /> <effectiveTime value= "" /> <value unit="" xsi:type="PQ" value="Negative" /> <referenceRange> <observationRange> <text>Negative </text> </observationRange> </referenceRange> </ observation> </component> <component> <observation moodCode= "EVN" classCode="OBS"> <templateId root="11.30.840.1.902566.10.22.4.2 " /> <id nullFlavor="NA" /> <code codeSystem="local" code= "UKET" displayName="Ketones" /> <statusCode code="completed" /> <effectiveTime value="766031564907" /> <value unit="" xsi:type="PQ" value="Trace" /> <interpretationCode codeSystem="local" code="*" /> <referenceRange> <observationRange> <text> Negative</text> </observationRange> </referenceRange> </observation> </component> <component> <observation moodCode ="EVN" classCode="OBS"> <templateId root= "840.1.046960.08.03.22.4.2" /> <id nullFlavor="NA" /> < code codeSystem="local" code="ULEU" displayName="Leukocyte Esterase" /> <statusCode code="completed" /> <effectiveTime value="641739503589" / > <value unit="NA" xsi:type="PQ" value="Negative" /> < referenceRange> <observationRange> <text>Negative</text > </observationRange> </referenceRange> </observation > </component> <component> <observation moodCode="EVN" classCode="OBS"> <templateId root="11.30.840.1.064572.2022.4.2" /> <id nullFlavor="NA" /> <code codeSystem="local" code="UNIT" displayName="Nitrites" /> <statusCode code="completed" /> < effectiveTime value="089032357581" /> <value unit="NA" xsi:type="PQ" value="Negative" /> <referenceRange> <observationRange> <text>Negative</text> </observationRange> </ referenceRange> </observation> </component> <component> <observation moodCode="EVN" classCode="OBS"> <templateId root= "11.30.840.1.334734.08.03.22.4.2" /> <id nullFlavor="NA" /> < code codeSystem="local" code="UPH" displayName="pH" /> <statusCode code ="completed" /> <effectiveTime value="089936971574" /> <value unit="NA" xsi:type="PQ" value="5.0" /> <referenceRange> < observationRange> <text>5.0-8.0</text> </ observationRange> </referenceRange> </observation> </ component> <component> <observation moodCode="EVN" classCode="OBS"> <templateId root="11.30.840.1.435125.08.03.22.4.2" /> <id nullFlavor="NA" /> <code codeSystem="local" code="UPRO" displayName= "Protein" /> <statusCode code="completed" /> <effectiveTime value="378341938002" /> <value unit="NA" xsi:type="PQ" value="Pos 2+" / > <interpretationCode codeSystem="local" code="*" /> < referenceRange> <observationRange> <text>Negative</text > </observationRange> </referenceRange> </observation > </component> <component> <observation moodCode="EVN" classCode="OBS"> <templateId root="11.30.840.1.945295.08.03.22.4.2" /> <id nullFlavor="NA" /> <code codeSystem="local" code="USPG" displayName="Specific [place]" /> <statusCode code="completed" /> <effectiveTime value="705455224251" /> <value unit="NA" xsi:type= "PQ" value="1.045" /> <interpretationCode codeSystem="local" code="*" / > <referenceRange> <observationRange> <text> 1.003-1.030</text> </observationRange> </referenceRange> </observation> </component> <component> <observation moodCode="EVN" classCode="OBS"> <templateId root= "2.16.840.1.033446.10..4.2" /> <id nullFlavor="NA" /> < code codeSystem="local" code="UTYP" displayName="UA Collection type" /> <statusCode code="completed" /> <effectiveTime value="010509499640" / > <value unit="NA" xsi:type="PQ" value="Catheter" /> < referenceRange> <observationRange> <text /> < /observationRange> </referenceRange> </observation> </ component> <component> <observation moodCode="EVN" classCode="OBS"> <templateId root="2.16.840.1.439723.10.4.2" /> <id nullFlavor="NA" /> <code codeSystem="local" code="UURO" displayName= "Urobilinogen" /> <statusCode code="completed" /> < effectiveTime value="765695263228" /> <value unit="mg/dL" xsi:type="PQ " value="Negative" /> <referenceRange> <observationRange> <text><1.0</text> </observationRange> </ referenceRange> </observation> </component> </organizer> </entry > <entry> <organizer moodCode="EVN" classCode="BATTERY"> <templateId root="216.840.1.733936.10..4.1" /> <id nullFlavor="NA" /> <code codeSystem="local" code="UMIC" displayName="Urine Microscopic" /> < statusCode code="completed" /> <component> <observation moodCode= "EVN" classCode="OBS"> <templateId root="216.840.1.259204.10..4.2 " /> <id nullFlavor="NA" /> <code codeSystem="local" code= "UEPI" displayName="Epithelial Cells" /> <statusCode code="completed" / > <effectiveTime value="758776695230" /> <value unit="/HPF" xsi:type="PQ" value="2" /> <referenceRange> < observationRange> <text /> </observationRange> </referenceRange> </observation> </component> <component> <observation moodCode="EVN" classCode="OBS"> <templateId root= "216.840.1.051756.10..4.2" /> <id nullFlavor="NA" /> < code codeSystem="local" code="UHCST" displayName="Hyaline Casts" /> < statusCode code="completed" /> <effectiveTime value="999199725900" /> <value unit="/LPF" xsi:type="PQ" value="7" /> < interpretationCode codeSystem="local" code="*" /> <referenceRange> <observationRange> <text>0-3</text> </ observationRange> </referenceRange> </observation> </ component> <component> <observation moodCode="EVN" classCode="OBS"> <templateId root="216.840.1.829620.10.22.4.2" /> <id nullFlavor="NA" /> <code codeSystem="local" code="URBC" displayName= "RBC, Urine" /> <statusCode code="completed" /> < effectiveTime value="" /> <value unit="/HPF" xsi:type="PQ" value="0" /> <referenceRange> <observationRange> <text>0-2</text> </observationRange> </referenceRange> </observation> </component> <component> <observation moodCode="EVN" classCode="OBS"> <templateId root= "16.840.1.456331.08.03.22.4.2" /> <id nullFlavor="NA" /> < code codeSystem="local" code="UMUC" displayName="Urine Mucus" /> < statusCode code="completed" /> <effectiveTime value="651371796901" /> <value unit="NA" xsi:type="PQ" value="Present" /> < referenceRange> <observationRange> <text /> < /observationRange> </referenceRange> </observation> </ component> <component> <observation moodCode="EVN" classCode="OBS"> <templateId root="11.30.840.1.852095.1022.4.2" /> <id nullFlavor="NA" /> <code codeSystem="local" code="UWBC" displayName= "WBC, Urine" /> <statusCode code="completed" /> < effectiveTime value="" /> <value unit="/HPF" xsi:type="PQ" value="2" /> <referenceRange> <observationRange> <text>0-4</text> </observationRange> </referenceRange> </observation> </component> </organizer> </entry> <entry> < organizer moodCode="EVN" classCode="BATTERY"> <templateId root= "840.1.183088.10..22.4.1" /> <id nullFlavor="NA" /> <code codeSystem="local" code="UDRGH" displayName="Urine Drug Screen" /> < statusCode code="completed" /> <component> <observation moodCode= "EVN" classCode="OBS"> <templateId root="11.30.840.1.555507.10..22.4.2 " /> <id nullFlavor="NA" /> <code codeSystem="local" code= "UAMP1" displayName="Amph/Meth/Ecstasy" /> <statusCode code="completed " /> <effectiveTime value="544534466428" /> <value unit="NA" xsi:type="PQ" value="Positive" /> <interpretationCode codeSystem="local " code="*" /> <referenceRange> <observationRange> <text /> </observationRange> </referenceRange> </ observation> </component> <component> <observation moodCode= "EVN" classCode="OBS"> <templateId root="840.1.488658.10...4.2 " /> <id nullFlavor="NA" /> <code codeSystem="local" code= "UBAR1" displayName="Barbiturates" /> <statusCode code="completed" /> <effectiveTime value="685085919176" /> <value unit="NA" xsi: type="PQ" value="Negative" /> <referenceRange> < observationRange> <text /> </observationRange> </referenceRange> </observation> </component> <component> <observation moodCode="EVN" classCode="OBS"> <templateId root= "840.1.405191.10..22.4.2" /> <id nullFlavor="NA" /> < code codeSystem="local" code="UBEN1" displayName="Benzodiazepine" /> < statusCode code="completed" /> <effectiveTime value="" /> <value unit="NA" xsi:type="PQ" value="Negative" /> < referenceRange> <observationRange> <text /> < /observationRange> </referenceRange> </observation> </ component> <component> <observation moodCode="EVN" classCode="OBS"> <templateId root="11.30.840.1.969124.08.03.22.4.2" /> <id nullFlavor="NA" /> <code codeSystem="local" code="UCAN1" displayName= "Cannabinoid" /> <statusCode code="completed" /> < effectiveTime value="" /> <value unit="NA" xsi:type="PQ" value="Negative" /> <referenceRange> <observationRange> <text /> </observationRange> </referenceRange> </observation> </component> <component> <observation moodCode="EVN" classCode="OBS"> <templateId root= "16.840.1.565537...4.2" /> <id nullFlavor="NA" /> < code codeSystem="local" code="UCOC1" displayName="Cocaine" /> < statusCode code="completed" /> <effectiveTime value="" /> <value unit="NA" xsi:type="PQ" value="Negative" /> < referenceRange> <observationRange> <text /> < /observationRange> </referenceRange> </observation> </ component> <component> <observation moodCode="EVN" classCode="OBS"> <templateId root="11.30.840.1.191188.10.22.4.2" /> <id nullFlavor="NA" /> <code codeSystem="local" code="UMTD1" displayName= "EDDP (Methadone met.)" /> <statusCode code="completed" /> < effectiveTime value="" /> <value unit="NA" xsi:type="PQ" value="Negative" /> <referenceRange> <observationRange> <text /> </observationRange> </referenceRange> </observation> </component> <component> <observation moodCode="EVN" classCode="OBS"> <templateId root= "2.16.840.1.501214.10.4.2" /> <id nullFlavor="NA" /> < code codeSystem="local" code="UOPI1" displayName="Opiate" /> < statusCode code="completed" /> <effectiveTime value="" /> <value unit="NA" xsi:type="PQ" value="Negative" /> < referenceRange> <observationRange> <text /> < /observationRange> </referenceRange> </observation> </ component> <component> <observation moodCode="EVN" classCode="OBS"> <templateId root="216.840.1.275818.08.03.22.4.2" /> <id nullFlavor="NA" /> <code codeSystem="local" code="UPCP1" displayName= "Phencyclidine (PCP)" /> <statusCode code="completed" /> < effectiveTime value="" /> <value unit="NA" xsi:type="PQ" value="Negative" /> <referenceRange> <observationRange> <text /> </observationRange> </referenceRange> </observation> </component> </organizer> </entry> <entry> < organizer moodCode="EVN" classCode="BATTERY"> <templateId root= "16.840.1.944727.10..4.1" /> <id nullFlavor="NA" /> <code codeSystem="local" code="SALIC" displayName="Salicylate" /> <statusCode code="completed" /> <component> <observation moodCode="EVN" classCode="OBS"> <templateId root="840.1.433723.08.03.22.4.2" /> <id nullFlavor="NA" /> <code codeSystem="local" code="SALIC" displayName="Salicylate" /> <statusCode code="completed" /> < effectiveTime value="807295568780" /> <value unit="mg/dL" xsi:type="PQ " value="<4" /> <referenceRange> <observationRange> <text>0-30</text> </observationRange> </ referenceRange> </observation> </component> </organizer> </entry > <entry> <organizer moodCode="EVN" classCode="BATTERY"> <templateId root="840.1.933662.08.03.22.4.1" /> <id nullFlavor="NA" /> <code codeSystem="local" code="ACETM" displayName="Acetaminophen" /> <statusCode code="completed" /> <component> <observation moodCode="EVN" classCode="OBS"> <templateId root="11.30.840.1.943539.08.03.22.4.2" /> <id nullFlavor="NA" /> <code codeSystem="local" code="ACETM" displayName="Acetaminophen" /> <statusCode code="completed" /> <effectiveTime value="422791954167" /> <value unit="mcg/mL" xsi:type= "PQ" value="277" /> <interpretationCode codeSystem="local" code="" / > <referenceRange> <observationRange> <text>10- 30</text> </observationRange> </referenceRange> </ observation> </component> </organizer> </entry> <entry> <organizer moodCode="EVN" classCode="BATTERY"> <templateId root= "11.30.840.1.928249.10.4.1" /> <id nullFlavor="NA" /> <code codeSystem="local" code="CMP" displayName="Comprehensive Metabolic Panel (CMP)" /> <statusCode code="completed" /> <component> <observation moodCode="EVN" classCode="OBS"> <templateId root= "11.30.840.1.014384...4.2" /> <id nullFlavor="NA" /> < code codeSystem="local" code="ALB" displayName="Albumin" /> < statusCode code="completed" /> <effectiveTime value="953413040486" /> <value unit="g/dL" xsi:type="PQ" value="3.9" /> < referenceRange> <observationRange> <text>3.5-4.8</text> </observationRange> </referenceRange> </observation > </component> <component> <observation moodCode="EVN" classCode="OBS"> <templateId root="11.30.840.1.489414.10.22.4.2" /> <id nullFlavor="NA" /> <code codeSystem="local" code="ALP" displayName="Alkaline Phosphatase" /> <statusCode code="completed" /> <effectiveTime value="289503399586" /> <value unit="U/L" xsi: type="PQ" value="61" /> <referenceRange> <observationRange> <text>26-104</text> </observationRange> </ referenceRange> </observation> </component> <component> <observation moodCode="EVN" classCode="OBS"> <templateId root= "216.840.1.240533.10...4.2" /> <id nullFlavor="NA" /> < code codeSystem="local" code="ALT" displayName="ALT (SGPT)" /> < statusCode code="completed" /> <effectiveTime value="403382436054" /> <value unit="U/L" xsi:type="PQ" value="19" /> <referenceRange > <observationRange> <text>14-54</text> </ observationRange> </referenceRange> </observation> </ component> <component> <observation moodCode="EVN" classCode="OBS"> <templateId root="11.30.840.1.825888.10..4.2" /> <id nullFlavor="NA" /> <code codeSystem="local" code="AGAP" displayName= "Anion Gap" /> <statusCode code="completed" /> <effectiveTime value="592087376948" /> <value unit="mEq/L" xsi:type="PQ" value="9" /> <referenceRange> <observationRange> <text>3-20 </text> </observationRange> </referenceRange> </ observation> </component> <component> <observation moodCode= "EVN" classCode="OBS"> <templateId root="11.30.840.1.650171.10..4.2 " /> <id nullFlavor="NA" /> <code codeSystem="local" code="AST " displayName="AST (SGOT)" /> <statusCode code="completed" /> <effectiveTime value="192111980399" /> <value unit="U/L" xsi:type="PQ" value="22" /> <referenceRange> <observationRange> <text>15-41</text> </observationRange> </referenceRange > </observation> </component> <component> <observation moodCode="EVN" classCode="OBS"> <templateId root= "216.840.1.252534.10...4.2" /> <id nullFlavor="NA" /> < code codeSystem="local" code="BILIT" displayName="Bilirubin Total" /> < statusCode code="completed" /> <effectiveTime value="914024908928" /> <value unit="mg/dL" xsi:type="PQ" value="0.9" /> < referenceRange> <observationRange> <text>0.2-1.2</text> </observationRange> </referenceRange> </observation > </component> <component> <observation moodCode="EVN" classCode="OBS"> <templateId root="11.30.840.1.635019...4.2" /> <id nullFlavor="NA" /> <code codeSystem="local" code="BUN" displayName="BUN" /> <statusCode code="completed" /> < effectiveTime value="263145943534" /> <value unit="mg/dL" xsi:type="PQ " value="11" /> <referenceRange> <observationRange> <text>4-20</text> </observationRange> </referenceRange > </observation> </component> <component> <observation moodCode="EVN" classCode="OBS"> <templateId root= "16.840.1.862261.10..22.4.2" /> <id nullFlavor="NA" /> < code codeSystem="local" code="CA" displayName="Calcium" /> <statusCode code="completed" /> <effectiveTime value="033438483308" /> < value unit="mg/dL" xsi:type="PQ" value="8.5" /> <interpretationCode codeSystem="local" code="*" /> <referenceRange> < observationRange> <text>8.6-10.0</text> </ observationRange> </referenceRange> </observation> </ component> <component> <observation moodCode="EVN" classCode="OBS"> <templateId root="2.16.840.1.497096.10...4.2" /> <id nullFlavor="NA" /> <code codeSystem="local" code="CL" displayName= "Chloride" /> <statusCode code="completed" /> <effectiveTime value="451028148102" /> <value unit="mEq/L" xsi:type="PQ" value="110" / > <interpretationCode codeSystem="local" code="*" /> < referenceRange> <observationRange> <text>99-109</text> </observationRange> </referenceRange> </observation> </component> <component> <observation moodCode="EVN" classCode ="OBS"> <templateId root="216.840.1.587131.08.03..4.2" /> < id nullFlavor="NA" /> <code codeSystem="local" code="CO2" displayName= "CO2" /> <statusCode code="completed" /> <effectiveTime value= "157419525243" /> <value unit="mEq/L" xsi:type="PQ" value="21" /> <interpretationCode codeSystem="local" code="*" /> <referenceRange > <observationRange> <text>22-32</text> </ observationRange> </referenceRange> </observation> </ component> <component> <observation moodCode="EVN" classCode="OBS"> <templateId root="16.840.1.511426.08.03.22.4.2" /> <id nullFlavor="NA" /> <code codeSystem="local" code="CREAT" displayName= "Creatinine" /> <statusCode code="completed" /> < effectiveTime value="400591787690" /> <value unit="mg/dL" xsi:type="PQ " value="0.83" /> <referenceRange> <observationRange> <text>0.44-1.03</text> </observationRange> </ referenceRange> </observation> </component> <component> <observation moodCode="EVN" classCode="OBS"> <templateId root= "11.30.840.1.290058.08.03.22.4.2" /> <id nullFlavor="NA" /> < code codeSystem="local" code="GLOB" displayName="Globulin" /> < statusCode code="completed" /> <effectiveTime value="642451086198" /> <value unit="g/dL" xsi:type="PQ" value="2.7" /> < referenceRange> <observationRange> <text>1.9-4.3</text> </observationRange> </referenceRange> </observation > </component> <component> <observation moodCode="EVN" classCode="OBS"> <templateId root="11.30.840.1.655672...4.2" /> <id nullFlavor="NA" /> <code codeSystem="local" code="GLU" displayName="Glucose" /> <statusCode code="completed" /> < effectiveTime value="131808191898" /> <value unit="mg/dL" xsi:type="PQ " value="90" /> <referenceRange> <observationRange> <text>70-100</text> </observationRange> </ referenceRange> </observation> </component> <component> <observation moodCode="EVN" classCode="OBS"> <templateId root= "11.30.840.1.017168.10.20.22.4.2" /> <id nullFlavor="NA" /> < code codeSystem="local" code="K" displayName="Potassium" /> < statusCode code="completed" /> <effectiveTime value="243109097489" /> <value unit="mEq/L" xsi:type="PQ" value="3.5" /> < interpretationCode codeSystem="local" code="*" /> <referenceRange> <observationRange> <text>3.6-5.1</text> </ observationRange> </referenceRange> </observation> </ component> <component> <observation moodCode="EVN" classCode="OBS"> <templateId root="840.1.281384...4.2" /> <id nullFlavor="NA" /> <code codeSystem="local" code="TP" displayName= "Protein" /> <statusCode code="completed" /> <effectiveTime value="831811907721" /> <value unit="g/dL" xsi:type="PQ" value="6.6" / > <referenceRange> <observationRange> <text>6.1 -7.9</text> </observationRange> </referenceRange> </ observation> </component> <component> <observation moodCode= "EVN" classCode="OBS"> <templateId root="11.30.840.1.772141.10.20.22.4.2 " /> <id nullFlavor="NA" /> <code codeSystem="local" code="NA " displayName="Sodium" /> <statusCode code="completed" /> < effectiveTime value="381792549393" /> <value unit="mEq/L" xsi:type="PQ " value="140" /> <referenceRange> <observationRange> <text>136-144</text> </observationRange> </ referenceRange> </observation> </component> </organizer> </entry > <entry> <organizer moodCode="EVN" classCode="BATTERY"> <templateId root="216.840.1.371233.10..22.4.1" /> <id nullFlavor="NA" /> <code codeSystem="local" code="ALC" displayName="Alcohol, Blood" /> <statusCode code="completed" /> <component> <observation moodCode="EVN" classCode="OBS"> <templateId root="216.840.1.779647.10..22.4.2" /> <id nullFlavor="NA" /> <code codeSystem="local" code="ALC" displayName="Alcohol, Blood" /> <statusCode code="completed" /> <effectiveTime value="005904534114" /> <value unit="mg/dL" xsi:type= "PQ" value="Not Detected" /> <referenceRange> < observationRange> <text /> </observationRange> </referenceRange> </observation> </component> </organizer> </ entry> <entry> <organizer moodCode="EVN" classCode="BATTERY"> < templateId root="216.840.1.836423.10..22.4.1" /> <id nullFlavor="NA" /> <code codeSystem="local" code="GFR" displayName="eGFR" /> < statusCode code="completed" /> <component> <observation moodCode= "EVN" classCode="OBS"> <templateId root="216.840.1.674023.10...4.2 " /> <id nullFlavor="NA" /> <code codeSystem="local" code="GFR " displayName="eGFR" /> <statusCode code="completed" /> < effectiveTime value="627331045969" /> <value unit="mL/min" xsi:type="PQ " value=">60" /> <referenceRange> <observationRange> <text>>60</text> </observationRange> </ referenceRange> </observation> </component> </organizer> </entry > <entry> <organizer moodCode="EVN" classCode="BATTERY"> <templateId root="216.840.1.759338.10..4.1" /> <id nullFlavor="NA" /> <code codeSystem="local" code="CBCND" displayName="CBC With Platelet No Differential" /> <statusCode code="completed" /> <component> <observation moodCode="EVN" classCode="OBS"> <templateId root= "2.16.840.1.808574.10...4.2" /> <id nullFlavor="NA" /> < code codeSystem="local" code="HCT" displayName="HCT" /> <statusCode code="completed" /> <effectiveTime value="643741668630" /> < value unit="%" xsi:type="PQ" value="36.8" /> <interpretationCode codeSystem="local" code="*" /> <referenceRange> < observationRange> <text>37.0-47.0</text> </ observationRange> </referenceRange> </observation> </ component> <component> <observation moodCode="EVN" classCode="OBS"> <templateId root="216.840.1.311798.08.03.22.4.2" /> <id nullFlavor="NA" /> <code codeSystem="local" code="HGB" displayName="HGB " /> <statusCode code="completed" /> <effectiveTime value= "" /> <value unit="g/dL" xsi:type="PQ" value="12.7" /> <referenceRange> <observationRange> <text>12.0- 16.0</text> </observationRange> </referenceRange> </ observation> </component> <component> <observation moodCode= "EVN" classCode="OBS"> <templateId root="216.840.1.910199.08.03.22.4.2 " /> <id nullFlavor="NA" /> <code codeSystem="local" code="MCH " displayName="MCH" /> <statusCode code="completed" /> < effectiveTime value="" /> <value unit="pg" xsi:type="PQ" value="31.8" /> <referenceRange> <observationRange> <text>27.0-32.0</text> </observationRange> </ referenceRange> </observation> </component> <component> <observation moodCode="EVN" classCode="OBS"> <templateId root= "216.840.1.111041.22.4.2" /> <id nullFlavor="NA" /> < code codeSystem="local" code="MCHC" displayName="MCHC" /> <statusCode code="completed" /> <effectiveTime value="" /> < value unit="g/dL" xsi:type="PQ" value="34.5" /> <referenceRange> <observationRange> <text>32.0-36.0</text> </ observationRange> </referenceRange> </observation> </ component> <component> <observation moodCode="EVN" classCode="OBS"> <templateId root="11.30.840.1.372280.08.03.22.4.2" /> <id nullFlavor="NA" /> <code codeSystem="local" code="MCV" displayName="MCV " /> <statusCode code="completed" /> <effectiveTime value= "" /> <value unit="fL" xsi:type="PQ" value="92.0" /> <referenceRange> <observationRange> <text>82.0-99.0< /text> </observationRange> </referenceRange> </ observation> </component> <component> <observation moodCode= "EVN" classCode="OBS"> <templateId root="11.30.840.1.530167.08.03.22.4.2 " /> <id nullFlavor="NA" /> <code codeSystem="local" code="MPV " displayName="MPV" /> <statusCode code="completed" /> < effectiveTime value="" /> <value unit="fL" xsi:type="PQ" value="10.7" /> <referenceRange> <observationRange> <text>9.4-12.4</text> </observationRange> </ referenceRange> </observation> </component> <component> <observation moodCode="EVN" classCode="OBS"> <templateId root= "11.30.840.1.904609..22.4.2" /> <id nullFlavor="NA" /> < code codeSystem="local" code="PLT" displayName="Platelet Count" /> < statusCode code="completed" /> <effectiveTime value="" /> <value unit="K/uL" xsi:type="PQ" value="266" /> < referenceRange> <observationRange> <text>150-400</text> </observationRange> </referenceRange> </observation > </component> <component> <observation moodCode="EVN" classCode="OBS"> <templateId root="216.840.1.073517.10.20.22.4.2" /> <id nullFlavor="NA" /> <code codeSystem="local" code="RBC" displayName="RBC" /> <statusCode code="completed" /> < effectiveTime value="173394354806" /> <value unit="10*6/uL" xsi:type= "PQ" value="4.00" /> <referenceRange> <observationRange> <text>4.00-5.20</text> </observationRange> </ referenceRange> </observation> </component> <component> <observation moodCode="EVN" classCode="OBS"> <templateId root= "11.30.840.1.804100.10..4.2" /> <id nullFlavor="NA" /> < code codeSystem="local" code="RDW" displayName="RDW" /> <statusCode code="completed" /> <effectiveTime value="134591153520" /> < value unit="%" xsi:type="PQ" value="13.0" /> <referenceRange> <observationRange> <text>11.5-14.5</text> </ observationRange> </referenceRange> </observation> </ component> <component> <observation moodCode="EVN" classCode="OBS"> <templateId root="11.30.840.1.079402.10.20.22.4.2" /> <id nullFlavor="NA" /> <code codeSystem="local" code="WBCIR" displayName= "WBC" /> <statusCode code="completed" /> <effectiveTime value= "786868642801" /> <value unit="K/uL" xsi:type="PQ" value="7.3" /> <referenceRange> <observationRange> <text>4.8-10.8< /text> </observationRange> </referenceRange> </ observation> </component> </organizer> </entry> <entry> <organizer moodCode="EVN" classCode="BATTERY"> <templateId root= "216.840.1.919889.10..22.4.1" /> <id nullFlavor="NA" /> <code codeSystem="local" code="PT" displayName="Protime (INR)" /> <statusCode code="completed" /> <component> <observation moodCode="EVN" classCode="OBS"> <templateId root="216.840.1.651375.10...4.2" /> <id nullFlavor="NA" /> <code codeSystem="local" code="INR" displayName="INR" /> <statusCode code="completed" /> < effectiveTime value="884910242921" /> <value unit="NA" xsi:type="PQ" value="1.3" /> <interpretationCode codeSystem="local" code="*" /> <referenceRange> <observationRange> <text>0.9-1.2</ text> </observationRange> </referenceRange> </ observation> </component> </organizer> </entry> <entry> <organizer moodCode="EVN" classCode="BATTERY"> <templateId root= "216.840.1.009199.10..4.1" /> <id nullFlavor="NA" /> <code codeSystem="local" code="CMP" displayName="Comprehensive Metabolic Panel (CMP)" /> <statusCode code="completed" /> <component> <observation moodCode="EVN" classCode="OBS"> <templateId root= "2.16.840.1.378644.10...4.2" /> <id nullFlavor="NA" /> < code codeSystem="local" code="ALB" displayName="Albumin" /> < statusCode code="completed" /> <effectiveTime value="215014602753" /> <value unit="g/dL" xsi:type="PQ" value="3.3" /> < interpretationCode codeSystem="local" code="*" /> <referenceRange> <observationRange> <text>3.5-4.8</text> </ observationRange> </referenceRange> </observation> </ component> <component> <observation moodCode="EVN" classCode="OBS"> <templateId root="16.840.1.702563.08.03.22.4.2" /> <id nullFlavor="NA" /> <code codeSystem="local" code="ALP" displayName= "Alkaline Phosphatase" /> <statusCode code="completed" /> < effectiveTime value="209153474583" /> <value unit="U/L" xsi:type="PQ" value="50" /> <referenceRange> <observationRange> <text>26-104</text> </observationRange> </referenceRange > </observation> </component> <component> <observation moodCode="EVN" classCode="OBS"> <templateId root= "216.840.1.652688.10...4.2" /> <id nullFlavor="NA" /> < code codeSystem="local" code="ALT" displayName="ALT (SGPT)" /> < statusCode code="completed" /> <effectiveTime value="277144322030" /> <value unit="U/L" xsi:type="PQ" value="18" /> <referenceRange > <observationRange> <text>14-54</text> </ observationRange> </referenceRange> </observation> </ component> <component> <observation moodCode="EVN" classCode="OBS"> <templateId root="11.30.840.1.836264.10..22.4.2" /> <id nullFlavor="NA" /> <code codeSystem="local" code="AGAP" displayName= "Anion Gap" /> <statusCode code="completed" /> <effectiveTime value="988012405054" /> <value unit="mEq/L" xsi:type="PQ" value="9" /> <referenceRange> <observationRange> <text>3-20 </text> </observationRange> </referenceRange> </ observation> </component> <component> <observation moodCode= "EVN" classCode="OBS"> <templateId root="11.30.840.1.453071.10...4.2 " /> <id nullFlavor="NA" /> <code codeSystem="local" code="AST " displayName="AST (SGOT)" /> <statusCode code="completed" /> <effectiveTime value="245364194085" /> <value unit="U/L" xsi:type="PQ" value="16" /> <referenceRange> <observationRange> <text>15-41</text> </observationRange> </referenceRange > </observation> </component> <component> <observation moodCode="EVN" classCode="OBS"> <templateId root= "11.30.840.1.652034.10..22.4.2" /> <id nullFlavor="NA" /> < code codeSystem="local" code="BILIT" displayName="Bilirubin Total" /> < statusCode code="completed" /> <effectiveTime value="878407553616" /> <value unit="mg/dL" xsi:type="PQ" value="0.5" /> < referenceRange> <observationRange> <text>0.2-1.2</text> </observationRange> </referenceRange> </observation > </component> <component> <observation moodCode="EVN" classCode="OBS"> <templateId root="11.30.840.1.403922.08.03.22.4.2" /> <id nullFlavor="NA" /> <code codeSystem="local" code="BUN" displayName="BUN" /> <statusCode code="completed" /> < effectiveTime value="026065937288" /> <value unit="mg/dL" xsi:type="PQ " value="8" /> <referenceRange> <observationRange> <text>4-20</text> </observationRange> </referenceRange > </observation> </component> <component> <observation moodCode="EVN" classCode="OBS"> <templateId root= "11.30.840.1.409019.08.03.22.4.2" /> <id nullFlavor="NA" /> < code codeSystem="local" code="CA" displayName="Calcium" /> <statusCode code="completed" /> <effectiveTime value="632221580882" /> < value unit="mg/dL" xsi:type="PQ" value="8.3" /> <interpretationCode codeSystem="local" code="*" /> <referenceRange> < observationRange> <text>8.6-10.0</text> </ observationRange> </referenceRange> </observation> </ component> <component> <observation moodCode="EVN" classCode="OBS"> <templateId root="11.30.840.1.231940.08.03.22.4.2" /> <id nullFlavor="NA" /> <code codeSystem="local" code="CL" displayName= "Chloride" /> <statusCode code="completed" /> <effectiveTime value="599313911780" /> <value unit="mEq/L" xsi:type="PQ" value="109" / > <referenceRange> <observationRange> <text>99- 109</text> </observationRange> </referenceRange> </ observation> </component> <component> <observation moodCode= "EVN" classCode="OBS"> <templateId root="2.16.840.1.102021.10...4.2 " /> <id nullFlavor="NA" /> <code codeSystem="local" code="CO2 " displayName="CO2" /> <statusCode code="completed" /> < effectiveTime value="701950598509" /> <value unit="mEq/L" xsi:type="PQ " value="21" /> <interpretationCode codeSystem="local" code="*" /> <referenceRange> <observationRange> <text>22-32</ text> </observationRange> </referenceRange> </ observation> </component> <component> <observation moodCode= "EVN" classCode="OBS"> <templateId root="216.840.1.543426.10..4.2 " /> <id nullFlavor="NA" /> <code codeSystem="local" code= "CREAT" displayName="Creatinine" /> <statusCode code="completed" /> <effectiveTime value="969713099424" /> <value unit="mg/dL" xsi: type="PQ" value="0.68" /> <referenceRange> <observationRange > <text>0.44-1.03</text> </observationRange> </ referenceRange> </observation> </component> <component> <observation moodCode="EVN" classCode="OBS"> <templateId root= "16.840.1.466219.10.22.4.2" /> <id nullFlavor="NA" /> < code codeSystem="local" code="GLOB" displayName="Globulin" /> < statusCode code="completed" /> <effectiveTime value="[id number]" /> <value unit="g/dL" xsi:type="PQ" value="2.3" /> < referenceRange> <observationRange> <text>1.9-4.3</text> </observationRange> </referenceRange> </observation > </component> <component> <observation moodCode="EVN" classCode="OBS"> <templateId root="16.840.1.970557.08.03.22.4.2" /> <id nullFlavor="NA" /> <code codeSystem="local" code="GLU" displayName="Glucose" /> <statusCode code="completed" /> < effectiveTime value="746086078601" /> <value unit="mg/dL" xsi:type="PQ " value="104" /> <interpretationCode codeSystem="local" code="*" /> <referenceRange> <observationRange> <text>70-100< /text> </observationRange> </referenceRange> </ observation> </component> <component> <observation moodCode= "EVN" classCode="OBS"> <templateId root="16.840.1.975908.10..4.2 " /> <id nullFlavor="NA" /> <code codeSystem="local" code="K" displayName="Potassium" /> <statusCode code="completed" /> < effectiveTime value="329795605933" /> <value unit="mEq/L" xsi:type="PQ " value="3.4" /> <interpretationCode codeSystem="local" code="*" /> <referenceRange> <observationRange> <text>3.6-5.1 </text> </observationRange> </referenceRange> </ observation> </component> <component> <observation moodCode= "EVN" classCode="OBS"> <templateId root="16.840.1.046417.08.03.22.4.2 " /> <id nullFlavor="NA" /> <code codeSystem="local" code="TP " displayName="Protein" /> <statusCode code="completed" /> < effectiveTime value="209910186857" /> <value unit="g/dL" xsi:type="PQ" value="5.6" /> <interpretationCode codeSystem="local" code="*" /> <referenceRange> <observationRange> <text>6.1-7.9</ text> </observationRange> </referenceRange> </ observation> </component> <component> <observation moodCode= "EVN" classCode="OBS"> <templateId root="11.30.840.1.935508.08.03.22.4.2 " /> <id nullFlavor="NA" /> <code codeSystem="local" code="NA " displayName="Sodium" /> <statusCode code="completed" /> < effectiveTime value="165046191246" /> <value unit="mEq/L" xsi:type="PQ " value="139" /> <referenceRange> <observationRange> <text>136-144</text> </observationRange> </ referenceRange> </observation> </component> </organizer> </entry > <entry> <organizer moodCode="EVN" classCode="BATTERY"> <templateId root="216.840.1.697016.08.03.22.4.1" /> <id nullFlavor="NA" /> <code codeSystem="local" code="ACETM" displayName="Acetaminophen" /> <statusCode code="completed" /> <component> <observation moodCode="EVN" classCode="OBS"> <templateId root="16.840.1.645159.08.03.22.4.2" /> <id nullFlavor="NA" /> <code codeSystem="local" code="ACETM" displayName="Acetaminophen" /> <statusCode code="completed" /> <effectiveTime value="426825431964" /> <value unit="mcg/mL" xsi:type= "PQ" value="45" /> <interpretationCode codeSystem="local" code="*" /> <referenceRange> <observationRange> <text>10-30 </text> </observationRange> </referenceRange> </ observation> </component> </organizer> </entry> <entry> <organizer moodCode="EVN" classCode="BATTERY"> <templateId root= "16.840.1.389456.08.03.22.4.1" /> <id nullFlavor="NA" /> <code codeSystem="local" code="GFR" displayName="eGFR" /> <statusCode code= "completed" /> <component> <observation moodCode="EVN" classCode= "OBS"> <templateId root="16.840.1.954747.08.03.22.4.2" /> < id nullFlavor="NA" /> <code codeSystem="local" code="GFR" displayName= "eGFR" /> <statusCode code="completed" /> <effectiveTime value ="112047335611" /> <value unit="mL/min" xsi:type="PQ" value=">60" / > <referenceRange> <observationRange> <text>&gt ;60</text> </observationRange> </referenceRange> </ observation> </component> </organizer> </entry> <entry> <organizer moodCode="EVN" classCode="BATTERY"> <templateId root= "16.840.1.417401.10..22.4.1" /> <id nullFlavor="NA" /> <code codeSystem="local" code="CMP" displayName="Comprehensive Metabolic Panel (CMP)" /> <statusCode code="completed" /> <component> <observation moodCode="EVN" classCode="OBS"> <templateId root= "216.840.1.613833.10...4.2" /> <id nullFlavor="NA" /> < code codeSystem="local" code="ALB" displayName="Albumin" /> < statusCode code="completed" /> <effectiveTime value="318789994959" /> <value unit="g/dL" xsi:type="PQ" value="3.2" /> < interpretationCode codeSystem="local" code="*" /> <referenceRange> <observationRange> <text>3.5-4.8</text> </ observationRange> </referenceRange> </observation> </ component> <component> <observation moodCode="EVN" classCode="OBS"> <templateId root="16.840.1.714711.08.03.22.4.2" /> <id nullFlavor="NA" /> <code codeSystem="local" code="ALP" displayName= "Alkaline Phosphatase" /> <statusCode code="completed" /> < effectiveTime value="212947864113" /> <value unit="U/L" xsi:type="PQ" value="45" /> <referenceRange> <observationRange> <text>26-104</text> </observationRange> </referenceRange > </observation> </component> <component> <observation moodCode="EVN" classCode="OBS"> <templateId root= "216.840.1.713769.10...4.2" /> <id nullFlavor="NA" /> < code codeSystem="local" code="ALT" displayName="ALT (SGPT)" /> < statusCode code="completed" /> <effectiveTime value="" /> <value unit="U/L" xsi:type="PQ" value="17" /> <referenceRange > <observationRange> <text>14-54</text> </ observationRange> </referenceRange> </observation> </ component> <component> <observation moodCode="EVN" classCode="OBS"> <templateId root="216.840.1.973084...4.2" /> <id nullFlavor="NA" /> <code codeSystem="local" code="AGAP" displayName= "Anion Gap" /> <statusCode code="completed" /> <effectiveTime value="" /> <value unit="mEq/L" xsi:type="PQ" value="6" /> <referenceRange> <observationRange> <text>3-20 </text> </observationRange> </referenceRange> </ observation> </component> <component> <observation moodCode= "EVN" classCode="OBS"> <templateId root="16.840.1.063874.10...4.2 " /> <id nullFlavor="NA" /> <code codeSystem="local" code="AST " displayName="AST (SGOT)" /> <statusCode code="completed" /> <effectiveTime value="" /> <value unit="U/L" xsi:type="PQ" value="14" /> <interpretationCode codeSystem="local" code="*" /> <referenceRange> <observationRange> <text>15-41</ text> </observationRange> </referenceRange> </ observation> </component> <component> <observation moodCode= "EVN" classCode="OBS"> <templateId root="16.840.1.070092.10..22.4.2 " /> <id nullFlavor="NA" /> <code codeSystem="local" code= "BILIT" displayName="Bilirubin Total" /> <statusCode code="completed" / > <effectiveTime value="989583301796" /> <value unit="mg/dL" xsi:type="PQ" value="0.8" /> <referenceRange> < observationRange> <text>0.2-1.2</text> </ observationRange> </referenceRange> </observation> </ component> <component> <observation moodCode="EVN" classCode="OBS"> <templateId root="11.30.840.1.738513.10.22.4.2" /> <id nullFlavor="NA" /> <code codeSystem="local" code="BUN" displayName="BUN " /> <statusCode code="completed" /> <effectiveTime value= "856608612175" /> <value unit="mg/dL" xsi:type="PQ" value="5" /> <referenceRange> <observationRange> <text>4-20</text > </observationRange> </referenceRange> </observation > </component> <component> <observation moodCode="EVN" classCode="OBS"> <templateId root="11.30.840.1.006545.10.2022.4.2" /> <id nullFlavor="NA" /> <code codeSystem="local" code="CA" displayName="Calcium" /> <statusCode code="completed" /> < effectiveTime value="005785259692" /> <value unit="mg/dL" xsi:type="PQ " value="8.0" /> <interpretationCode codeSystem="local" code="*" /> <referenceRange> <observationRange> <text>8.6- 10.0</text> </observationRange> </referenceRange> </ observation> </component> <component> <observation moodCode= "EVN" classCode="OBS"> <templateId root="216.840.1.908731.10..22.4.2 " /> <id nullFlavor="NA" /> <code codeSystem="local" code="CL " displayName="Chloride" /> <statusCode code="completed" /> < effectiveTime value="898340595431" /> <value unit="mEq/L" xsi:type="PQ " value="109" /> <referenceRange> <observationRange> <text>99-109</text> </observationRange> </ referenceRange> </observation> </component> <component> <observation moodCode="EVN" classCode="OBS"> <templateId root= "16.840.1.231046..20.22.4.2" /> <id nullFlavor="NA" /> < code codeSystem="local" code="CO2" displayName="CO2" /> <statusCode code="completed" /> <effectiveTime value="940059094397" /> < value unit="mEq/L" xsi:type="PQ" value="23" /> <referenceRange> <observationRange> <text>22-32</text> </ observationRange> </referenceRange> </observation> </ component> <component> <observation moodCode="EVN" classCode="OBS"> <templateId root="16.840.1.365955.08.03.22.4.2" /> <id nullFlavor="NA" /> <code codeSystem="local" code="CREAT" displayName= "Creatinine" /> <statusCode code="completed" /> < effectiveTime value="595926567121" /> <value unit="mg/dL" xsi:type="PQ " value="0.78" /> <referenceRange> <observationRange> <text>0.44-1.03</text> </observationRange> </ referenceRange> </observation> </component> <component> <observation moodCode="EVN" classCode="OBS"> <templateId root= "2.16.840.1.122416...4.2" /> <id nullFlavor="NA" /> < code codeSystem="local" code="GLOB" displayName="Globulin" /> < statusCode code="completed" /> <effectiveTime value="651254236668" /> <value unit="g/dL" xsi:type="PQ" value="2.3" /> < referenceRange> <observationRange> <text>1.9-4.3</text> </observationRange> </referenceRange> </observation > </component> <component> <observation moodCode="EVN" classCode="OBS"> <templateId root="216.840.1.774849.10..4.2" /> <id nullFlavor="NA" /> <code codeSystem="local" code="GLU" displayName="Glucose" /> <statusCode code="completed" /> < effectiveTime value="" /> <value unit="mg/dL" xsi:type="PQ " value="99" /> <referenceRange> <observationRange> <text>70-100</text> </observationRange> </ referenceRange> </observation> </component> <component> <observation moodCode="EVN" classCode="OBS"> <templateId root= "16.840.1.646867.10..4.2" /> <id nullFlavor="NA" /> < code codeSystem="local" code="K" displayName="Potassium" /> < statusCode code="completed" /> <effectiveTime value="" /> <value unit="mEq/L" xsi:type="PQ" value="3.0" /> < interpretationCode codeSystem="local" code="*" /> <referenceRange> <observationRange> <text>3.6-5.1</text> </ observationRange> </referenceRange> </observation> </ component> <component> <observation moodCode="EVN" classCode="OBS"> <templateId root="11.30.840.1.111101.08.03.22.4.2" /> <id nullFlavor="NA" /> <code codeSystem="local" code="TP" displayName= "Protein" /> <statusCode code="completed" /> <effectiveTime value="" /> <value unit="g/dL" xsi:type="PQ" value="5.5" / > <interpretationCode codeSystem="local" code="*" /> < referenceRange> <observationRange> <text>6.1-7.9</text> </observationRange> </referenceRange> </observation > </component> <component> <observation moodCode="EVN" classCode="OBS"> <templateId root="11.30.840.1.949270.08.03.22.4.2" /> <id nullFlavor="NA" /> <code codeSystem="local" code="NA" displayName="Sodium" /> <statusCode code="completed" /> < effectiveTime value="" /> <value unit="mEq/L" xsi:type="PQ " value="138" /> <referenceRange> <observationRange> <text>136-144</text> </observationRange> </ referenceRange> </observation> </component> </organizer> </entry > <entry> <organizer moodCode="EVN" classCode="BATTERY"> <templateId root="840.1.706115.22.4.1" /> <id nullFlavor="NA" /> <code codeSystem="local" code="ACETM" displayName="Acetaminophen" /> <statusCode code="completed" /> <component> <observation moodCode="EVN" classCode="OBS"> <templateId root="11.30.840.1.374721.22.4.2" /> <id nullFlavor="NA" /> <code codeSystem="local" code="ACETM" displayName="Acetaminophen" /> <statusCode code="completed" /> <effectiveTime value="600966736340" /> <value unit="mcg/mL" xsi:type= "PQ" value="<10" /> <referenceRange> <observationRange> <text>10-30</text> </observationRange> </ referenceRange> </observation> </component> </organizer> </entry > <entry> <organizer moodCode="EVN" classCode="BATTERY"> <templateId root="11.30.840.1.920669.22.4.1" /> <id nullFlavor="NA" /> <code codeSystem="local" code="GFR" displayName="eGFR" /> <statusCode code= "completed" /> <component> <observation moodCode="EVN" classCode= "OBS"> <templateId root="11.30.840.1.734812.08.03.22.4.2" /> < id nullFlavor="NA" /> <code codeSystem="local" code="GFR" displayName= "eGFR" /> <statusCode code="completed" /> <effectiveTime value ="529500661841" /> <value unit="mL/min" xsi:type="PQ" value=">60" / > <referenceRange> <observationRange> <text>&gt ;60</text> </observationRange> </referenceRange> </ observation> </component> </organizer> </entry> <entry> <organizer moodCode="EVN" classCode="BATTERY"> <templateId root= "216.840.1.398208.08.03.22.4.1" /> <id nullFlavor="NA" /> <code codeSystem="local" code="CBCND" displayName="CBC With Platelet No Differential" /> <statusCode code="completed" /> <component> <observation moodCode="EVN" classCode="OBS"> <templateId root= "16.840.1.914329.08.03.22.4.2" /> <id nullFlavor="NA" /> < code codeSystem="local" code="HCT" displayName="HCT" /> <statusCode code="completed" /> <effectiveTime value="752428230037" /> < value unit="%" xsi:type="PQ" value="35.8" /> <interpretationCode codeSystem="local" code="*" /> <referenceRange> < observationRange> <text>37.0-47.0</text> </ observationRange> </referenceRange> </observation> </ component> <component> <observation moodCode="EVN" classCode="OBS"> <templateId root="16.840.1.357272.08.03.22.4.2" /> <id nullFlavor="NA" /> <code codeSystem="local" code="HGB" displayName="HGB " /> <statusCode code="completed" /> <effectiveTime value= "" /> <value unit="g/dL" xsi:type="PQ" value="11.9" /> <interpretationCode codeSystem="local" code="*" /> < referenceRange> <observationRange> <text>12.0-16.0</text > </observationRange> </referenceRange> </observation > </component> <component> <observation moodCode="EVN" classCode="OBS"> <templateId root="2.16.840.1.755255.10...4.2" /> <id nullFlavor="NA" /> <code codeSystem="local" code="MCH" displayName="MCH" /> <statusCode code="completed" /> < effectiveTime value="" /> <value unit="pg" xsi:type="PQ" value="30.7" /> <referenceRange> <observationRange> <text>27.0-32.0</text> </observationRange> </ referenceRange> </observation> </component> <component> <observation moodCode="EVN" classCode="OBS"> <templateId root= "2.16.840.1.145014.10...4.2" /> <id nullFlavor="NA" /> < code codeSystem="local" code="MCHC" displayName="MCHC" /> <statusCode code="completed" /> <effectiveTime value="" /> < value unit="g/dL" xsi:type="PQ" value="33.2" /> <referenceRange> <observationRange> <text>32.0-36.0</text> </ observationRange> </referenceRange> </observation> </ component> <component> <observation moodCode="EVN" classCode="OBS"> <templateId root="16.840.1.164019.10..4.2" /> <id nullFlavor="NA" /> <code codeSystem="local" code="MCV" displayName="MCV " /> <statusCode code="completed" /> <effectiveTime value= "" /> <value unit="fL" xsi:type="PQ" value="92.5" /> <referenceRange> <observationRange> <text>82.0-99.0< /text> </observationRange> </referenceRange> </ observation> </component> <component> <observation moodCode= "EVN" classCode="OBS"> <templateId root="11.30.840.1.689789.08.03.22.4.2 " /> <id nullFlavor="NA" /> <code codeSystem="local" code="MPV " displayName="MPV" /> <statusCode code="completed" /> < effectiveTime value="" /> <value unit="fL" xsi:type="PQ" value="10.5" /> <referenceRange> <observationRange> <text>9.4-12.4</text> </observationRange> </ referenceRange> </observation> </component> <component> <observation moodCode="EVN" classCode="OBS"> <templateId root= "11.30.840.1.742415.10.22.4.2" /> <id nullFlavor="NA" /> < code codeSystem="local" code="PLT" displayName="Platelet Count" /> < statusCode code="completed" /> <effectiveTime value="" /> <value unit="K/uL" xsi:type="PQ" value="196" /> < referenceRange> <observationRange> <text>150-400</text> </observationRange> </referenceRange> </observation > </component> <component> <observation moodCode="EVN" classCode="OBS"> <templateId root="11.30.840.1.541832.10.20.22.4.2" /> <id nullFlavor="NA" /> <code codeSystem="local" code="RBC" displayName="RBC" /> <statusCode code="completed" /> < effectiveTime value="014696618373" /> <value unit="10*6/uL" xsi:type= "PQ" value="3.87" /> <interpretationCode codeSystem="local" code="*" / > <referenceRange> <observationRange> <text> 4.00-5.20</text> </observationRange> </referenceRange> </observation> </component> <component> <observation moodCode="EVN" classCode="OBS"> <templateId root= "840.1.023817.22.4.2" /> <id nullFlavor="NA" /> < code codeSystem="local" code="RDW" displayName="RDW" /> <statusCode code="completed" /> <effectiveTime value="867793776568" /> < value unit="%" xsi:type="PQ" value="13.1" /> <referenceRange> <observationRange> <text>11.5-14.5</text> </ observationRange> </referenceRange> </observation> </ component> <component> <observation moodCode="EVN" classCode="OBS"> <templateId root="11.30.840.1.723813.10.20.22.4.2" /> <id nullFlavor="NA" /> <code codeSystem="local" code="WBCIR" displayName= "WBC" /> <statusCode code="completed" /> <effectiveTime value= "743680331182" /> <value unit="K/uL" xsi:type="PQ" value="5.1" /> <referenceRange> <observationRange> <text>4.8-10.8< /text> </observationRange> </referenceRange> </ observation> </component> </organizer> </entry> <entry> <organizer moodCode="EVN" classCode="BATTERY"> <templateId root= "16.840.1.150660.10.22.4.1" /> <id nullFlavor="NA" /> <code codeSystem="local" code="CMP" displayName="Comprehensive Metabolic Panel (CMP)" /> <statusCode code="completed" /> <component> <observation moodCode="EVN" classCode="OBS"> <templateId root= "16.840.1.906007.08.03.22.4.2" /> <id nullFlavor="NA" /> < code codeSystem="local" code="ALB" displayName="Albumin" /> < statusCode code="completed" /> <effectiveTime value="291333416762" /> <value unit="g/dL" xsi:type="PQ" value="3.2" /> < interpretationCode codeSystem="local" code="*" /> <referenceRange> <observationRange> <text>3.5-4.8</text> </ observationRange> </referenceRange> </observation> </ component> <component> <observation moodCode="EVN" classCode="OBS"> <templateId root="16.840.1.876205.08.03.22.4.2" /> <id nullFlavor="NA" /> <code codeSystem="local" code="ALP" displayName= "Alkaline Phosphatase" /> <statusCode code="completed" /> < effectiveTime value="" /> <value unit="U/L" xsi:type="PQ" value="45" /> <referenceRange> <observationRange> <text>26-104</text> </observationRange> </referenceRange > </observation> </component> <component> <observation moodCode="EVN" classCode="OBS"> <templateId root= "216.840.1.484037.10.22.4.2" /> <id nullFlavor="NA" /> < code codeSystem="local" code="ALT" displayName="ALT (SGPT)" /> < statusCode code="completed" /> <effectiveTime value="" /> <value unit="U/L" xsi:type="PQ" value="18" /> <referenceRange > <observationRange> <text>14-54</text> </ observationRange> </referenceRange> </observation> </ component> <component> <observation moodCode="EVN" classCode="OBS"> <templateId root="11.30.840.1.069780.10..4.2" /> <id nullFlavor="NA" /> <code codeSystem="local" code="AGAP" displayName= "Anion Gap" /> <statusCode code="completed" /> <effectiveTime value="" /> <value unit="mEq/L" xsi:type="PQ" value="6" /> <referenceRange> <observationRange> <text>3-20 </text> </observationRange> </referenceRange> </ observation> </component> <component> <observation moodCode= "EVN" classCode="OBS"> <templateId root="16.840.1.182122.10..22.4.2 " /> <id nullFlavor="NA" /> <code codeSystem="local" code="AST " displayName="AST (SGOT)" /> <statusCode code="completed" /> <effectiveTime value="" /> <value unit="U/L" xsi:type="PQ" value="15" /> <referenceRange> <observationRange> <text>15-41</text> </observationRange> </referenceRange > </observation> </component> <component> <observation moodCode="EVN" classCode="OBS"> <templateId root= "16.840.1.007671.10..22.4.2" /> <id nullFlavor="NA" /> < code codeSystem="local" code="BILIT" displayName="Bilirubin Total" /> < statusCode code="completed" /> <effectiveTime value="" /> <value unit="mg/dL" xsi:type="PQ" value="0.9" /> < referenceRange> <observationRange> <text>0.2-1.2</text> </observationRange> </referenceRange> </observation > </component> <component> <observation moodCode="EVN" classCode="OBS"> <templateId root="16.840.1.067802.10..22.4.2" /> <id nullFlavor="NA" /> <code codeSystem="local" code="BUN" displayName="BUN" /> <statusCode code="completed" /> < effectiveTime value="657666530818" /> <value unit="mg/dL" xsi:type="PQ " value="6" /> <referenceRange> <observationRange> <text>4-20</text> </observationRange> </referenceRange > </observation> </component> <component> <observation moodCode="EVN" classCode="OBS"> <templateId root= "11.30.840.1.834275.1022.4.2" /> <id nullFlavor="NA" /> < code codeSystem="local" code="CA" displayName="Calcium" /> <statusCode code="completed" /> <effectiveTime value="582055155962" /> < value unit="mg/dL" xsi:type="PQ" value="8.2" /> <interpretationCode codeSystem="local" code="*" /> <referenceRange> < observationRange> <text>8.6-10.0</text> </ observationRange> </referenceRange> </observation> </ component> <component> <observation moodCode="EVN" classCode="OBS"> <templateId root="840.1.511422.22.4.2" /> <id nullFlavor="NA" /> <code codeSystem="local" code="CL" displayName= "Chloride" /> <statusCode code="completed" /> <effectiveTime value="288193876360" /> <value unit="mEq/L" xsi:type="PQ" value="111" / > <interpretationCode codeSystem="local" code="*" /> < referenceRange> <observationRange> <text>99-109</text> </observationRange> </referenceRange> </observation> </component> <component> <observation moodCode="EVN" classCode ="OBS"> <templateId root="840.1.854808.10.22.4.2" /> < id nullFlavor="NA" /> <code codeSystem="local" code="CO2" displayName= "CO2" /> <statusCode code="completed" /> <effectiveTime value= "067541076397" /> <value unit="mEq/L" xsi:type="PQ" value="22" /> <referenceRange> <observationRange> <text>22-32</ text> </observationRange> </referenceRange> </ observation> </component> <component> <observation moodCode= "EVN" classCode="OBS"> <templateId root="16.840.1.041559.10.4.2 " /> <id nullFlavor="NA" /> <code codeSystem="local" code= "CREAT" displayName="Creatinine" /> <statusCode code="completed" /> <effectiveTime value="" /> <value unit="mg/dL" xsi: type="PQ" value="0.63" /> <referenceRange> <observationRange > <text>0.44-1.03</text> </observationRange> </ referenceRange> </observation> </component> <component> <observation moodCode="EVN" classCode="OBS"> <templateId root= "11.30.840.1.092103.08.03.22.4.2" /> <id nullFlavor="NA" /> < code codeSystem="local" code="GLOB" displayName="Globulin" /> < statusCode code="completed" /> <effectiveTime value="" /> <value unit="g/dL" xsi:type="PQ" value="2.3" /> < referenceRange> <observationRange> <text>1.9-4.3</text> </observationRange> </referenceRange> </observation > </component> <component> <observation moodCode="EVN" classCode="OBS"> <templateId root="11.30.840.1.150860.08.03.22.4.2" /> <id nullFlavor="NA" /> <code codeSystem="local" code="GLU" displayName="Glucose" /> <statusCode code="completed" /> < effectiveTime value="" /> <value unit="mg/dL" xsi:type="PQ " value="79" /> <referenceRange> <observationRange> <text>70-100</text> </observationRange> </ referenceRange> </observation> </component> <component> <observation moodCode="EVN" classCode="OBS"> <templateId root= "11.30.840.1.013671.08.03.22.4.2" /> <id nullFlavor="NA" /> < code codeSystem="local" code="K" displayName="Potassium" /> < statusCode code="completed" /> <effectiveTime value="764833518989" /> <value unit="mEq/L" xsi:type="PQ" value="3.0" /> < interpretationCode codeSystem="local" code="*" /> <referenceRange> <observationRange> <text>3.6-5.1</text> </ observationRange> </referenceRange> </observation> </ component> <component> <observation moodCode="EVN" classCode="OBS"> <templateId root="11.30.840.1.670266.22.4.2" /> <id nullFlavor="NA" /> <code codeSystem="local" code="TP" displayName= "Protein" /> <statusCode code="completed" /> <effectiveTime value="[id number]" /> <value unit="g/dL" xsi:type="PQ" value="5.5" / > <interpretationCode codeSystem="local" code="*" /> < referenceRange> <observationRange> <text>6.1-7.9</text> </observationRange> </referenceRange> </observation > </component> <component> <observation moodCode="EVN" classCode="OBS"> <templateId root="11.30.840.1.672669.08.03.22.4.2" /> <id nullFlavor="NA" /> <code codeSystem="local" code="NA" displayName="Sodium" /> <statusCode code="completed" /> < effectiveTime value="[id number]" /> <value unit="mEq/L" xsi:type="PQ " value="139" /> <referenceRange> <observationRange> <text>136-144</text> </observationRange> </ referenceRange> </observation> </component> </organizer> </entry > <entry> <organizer moodCode="EVN" classCode="BATTERY"> <templateId root="216.840.1.728607.10.4.1" /> <id nullFlavor="NA" /> <code codeSystem="local" code="GFR" displayName="eGFR" /> <statusCode code= "completed" /> <component> <observation moodCode="EVN" classCode= "OBS"> <templateId root="216.840.1.692865.10..22.4.2" /> < id nullFlavor="NA" /> <code codeSystem="local" code="GFR" displayName= "eGFR" /> <statusCode code="completed" /> <effectiveTime value ="[id number]" /> <value unit="mL/min" xsi:type="PQ" value=">60" / > <referenceRange> <observationRange> <text>&gt ;60</text> </observationRange> </referenceRange> </ observation> </component> </organizer> </entry> <entry> <organizer moodCode="EVN" classCode="BATTERY"> <templateId root= "16.840.1.817042.10.4.1" /> <id nullFlavor="NA" /> <code codeSystem="local" code="CBCND" displayName="CBC With Platelet No Differential" /> <statusCode code="completed" /> <component> <observation moodCode="EVN" classCode="OBS"> <templateId root= "11.30.840.1.479162.10.22.4.2" /> <id nullFlavor="NA" /> < code codeSystem="local" code="HCT" displayName="HCT" /> <statusCode code="completed" /> <effectiveTime value="" /> < value unit="%" xsi:type="PQ" value="36.3" /> <interpretationCode codeSystem="local" code="*" /> <referenceRange> < observationRange> <text>37.0-47.0</text> </ observationRange> </referenceRange> </observation> </ component> <component> <observation moodCode="EVN" classCode="OBS"> <templateId root="11.30.840.1.144934.1022.4.2" /> <id nullFlavor="NA" /> <code codeSystem="local" code="HGB" displayName="HGB " /> <statusCode code="completed" /> <effectiveTime value= "[id number]" /> <value unit="g/dL" xsi:type="PQ" value="11.8" /> <interpretationCode codeSystem="local" code="*" /> < referenceRange> <observationRange> <text>12.0-16.0</text > </observationRange> </referenceRange> </observation > </component> <component> <observation moodCode="EVN" classCode="OBS"> <templateId root="11.30.840.1.190586.10.2022.4.2" /> <id nullFlavor="NA" /> <code codeSystem="local" code="MCH" displayName="MCH" /> <statusCode code="completed" /> < effectiveTime value="" /> <value unit="pg" xsi:type="PQ" value="30.8" /> <referenceRange> <observationRange> <text>27.0-32.0</text> </observationRange> </ referenceRange> </observation> </component> <component> <observation moodCode="EVN" classCode="OBS"> <templateId root= "216.840.1.348306.10.2022.4.2" /> <id nullFlavor="NA" /> < code codeSystem="local" code="MCHC" displayName="MCHC" /> <statusCode code="completed" /> <effectiveTime value="" /> < value unit="g/dL" xsi:type="PQ" value="32.5" /> <referenceRange> <observationRange> <text>32.0-36.0</text> </ observationRange> </referenceRange> </observation> </ component> <component> <observation moodCode="EVN" classCode="OBS"> <templateId root="216.840.1.238891.10..4.2" /> <id nullFlavor="NA" /> <code codeSystem="local" code="MCV" displayName="MCV " /> <statusCode code="completed" /> <effectiveTime value= "483233712699" /> <value unit="fL" xsi:type="PQ" value="94.8" /> <referenceRange> <observationRange> <text>82.0-99.0< /text> </observationRange> </referenceRange> </ observation> </component> <component> <observation moodCode= "EVN" classCode="OBS"> <templateId root="216.840.1.779825.08.03.22.4.2 " /> <id nullFlavor="NA" /> <code codeSystem="local" code="MPV " displayName="MPV" /> <statusCode code="completed" /> < effectiveTime value="" /> <value unit="fL" xsi:type="PQ" value="10.5" /> <referenceRange> <observationRange> <text>9.4-12.4</text> </observationRange> </ referenceRange> </observation> </component> <component> <observation moodCode="EVN" classCode="OBS"> <templateId root= "216.840.1.843126.08.03.22.4.2" /> <id nullFlavor="NA" /> < code codeSystem="local" code="PLT" displayName="Platelet Count" /> < statusCode code="completed" /> <effectiveTime value="" /> <value unit="K/uL" xsi:type="PQ" value="184" /> < referenceRange> <observationRange> <text>150-400</text> </observationRange> </referenceRange> </observation > </component> <component> <observation moodCode="EVN" classCode="OBS"> <templateId root="216.840.1.088126.08.03.22.4.2" /> <id nullFlavor="NA" /> <code codeSystem="local" code="RBC" displayName="RBC" /> <statusCode code="completed" /> < effectiveTime value="" /> <value unit="10*6/uL" xsi:type= "PQ" value="3.83" /> <interpretationCode codeSystem="local" code="*" / > <referenceRange> <observationRange> <text> 4.00-5.20</text> </observationRange> </referenceRange> </observation> </component> <component> <observation moodCode="EVN" classCode="OBS"> <templateId root= "2.16.840.1.750306.10.22.4.2" /> <id nullFlavor="NA" /> < code codeSystem="local" code="RDW" displayName="RDW" /> <statusCode code="completed" /> <effectiveTime value="[id number]" /> < value unit="%" xsi:type="PQ" value="13.3" /> <referenceRange> <observationRange> <text>11.5-14.5</text> </ observationRange> </referenceRange> </observation> </ component> <component> <observation moodCode="EVN" classCode="OBS"> <templateId root="216.840.1.003323.08.03.22.4.2" /> <id nullFlavor="NA" /> <code codeSystem="local" code="WBCIR" displayName= "WBC" /> <statusCode code="completed" /> <effectiveTime value= "946035809028" /> <value unit="K/uL" xsi:type="PQ" value="5.0" /> <referenceRange> <observationRange> <text>4.8-10.8< /text> </observationRange> </referenceRange> </ observation> </component> </organizer> </entry> <entry> <organizer moodCode="EVN" classCode="BATTERY"> <templateId root= "2.16.840.1.676721.10..22.4.1" /> <id nullFlavor="NA" /> <code codeSystem="local" code="CMP" displayName="Comprehensive Metabolic Panel (CMP)" /> <statusCode code="completed" /> <component> <observation moodCode="EVN" classCode="OBS"> <templateId root= "216.840.1.495688.10..22.4.2" /> <id nullFlavor="NA" /> < code codeSystem="local" code="ALB" displayName="Albumin" /> < statusCode code="completed" /> <effectiveTime value="" /> <value unit="g/dL" xsi:type="PQ" value="3.4" /> < interpretationCode codeSystem="local" code="*" /> <referenceRange> <observationRange> <text>3.5-4.8</text> </ observationRange> </referenceRange> </observation> </ component> <component> <observation moodCode="EVN" classCode="OBS"> <templateId root="16.840.1.993695.08.03.22.4.2" /> <id nullFlavor="NA" /> <code codeSystem="local" code="ALP" displayName= "Alkaline Phosphatase" /> <statusCode code="completed" /> < effectiveTime value="" /> <value unit="U/L" xsi:type="PQ" value="47" /> <referenceRange> <observationRange> <text>26-104</text> </observationRange> </referenceRange > </observation> </component> <component> <observation moodCode="EVN" classCode="OBS"> <templateId root= "16.840.1.461896.10...4.2" /> <id nullFlavor="NA" /> < code codeSystem="local" code="ALT" displayName="ALT (SGPT)" /> < statusCode code="completed" /> <effectiveTime value="" /> <value unit="U/L" xsi:type="PQ" value="24" /> <referenceRange > <observationRange> <text>14-54</text> </ observationRange> </referenceRange> </observation> </ component> <component> <observation moodCode="EVN" classCode="OBS"> <templateId root="216.840.1.601770.10...4.2" /> <id nullFlavor="NA" /> <code codeSystem="local" code="AGAP" displayName= "Anion Gap" /> <statusCode code="completed" /> <effectiveTime value="" /> <value unit="mEq/L" xsi:type="PQ" value="6" /> <referenceRange> <observationRange> <text>3-20 </text> </observationRange> </referenceRange> </ observation> </component> <component> <observation moodCode= "EVN" classCode="OBS"> <templateId root="11.30.840.1.318707.08.03.22.4.2 " /> <id nullFlavor="NA" /> <code codeSystem="local" code="AST " displayName="AST (SGOT)" /> <statusCode code="completed" /> <effectiveTime value="" /> <value unit="U/L" xsi:type="PQ" value="24" /> <referenceRange> <observationRange> <text>15-41</text> </observationRange> </referenceRange > </observation> </component> <component> <observation moodCode="EVN" classCode="OBS"> <templateId root= "11.30.840.1.839322.10..4.2" /> <id nullFlavor="NA" /> < code codeSystem="local" code="BILIT" displayName="Bilirubin Total" /> < statusCode code="completed" /> <effectiveTime value="" /> <value unit="mg/dL" xsi:type="PQ" value="0.6" /> < referenceRange> <observationRange> <text>0.2-1.2</text> </observationRange> </referenceRange> </observation > </component> <component> <observation moodCode="EVN" classCode="OBS"> <templateId root="16.840.1.552197.22.4.2" /> <id nullFlavor="NA" /> <code codeSystem="local" code="BUN" displayName="BUN" /> <statusCode code="completed" /> < effectiveTime value="" /> <value unit="mg/dL" xsi:type="PQ " value="8" /> <referenceRange> <observationRange> <text>4-20</text> </observationRange> </referenceRange > </observation> </component> <component> <observation moodCode="EVN" classCode="OBS"> <templateId root= "11.30.840.1.720786.08.03.22.4.2" /> <id nullFlavor="NA" /> < code codeSystem="local" code="CA" displayName="Calcium" /> <statusCode code="completed" /> <effectiveTime value="" /> < value unit="mg/dL" xsi:type="PQ" value="8.3" /> <interpretationCode codeSystem="local" code="*" /> <referenceRange> < observationRange> <text>8.6-10.0</text> </ observationRange> </referenceRange> </observation> </ component> <component> <observation moodCode="EVN" classCode="OBS"> <templateId root="11.30.840.1.651366..22.4.2" /> <id nullFlavor="NA" /> <code codeSystem="local" code="CL" displayName= "Chloride" /> <statusCode code="completed" /> <effectiveTime value="" /> <value unit="mEq/L" xsi:type="PQ" value="111" / > <interpretationCode codeSystem="local" code="*" /> < referenceRange> <observationRange> <text>99-109</text> </observationRange> </referenceRange> </observation> </component> <component> <observation moodCode="EVN" classCode ="OBS"> <templateId root="2.16.840.1.377283.10..22.4.2" /> < id nullFlavor="NA" /> <code codeSystem="local" code="CO2" displayName= "CO2" /> <statusCode code="completed" /> <effectiveTime value= "" /> <value unit="mEq/L" xsi:type="PQ" value="22" /> <referenceRange> <observationRange> <text>22-32</ text> </observationRange> </referenceRange> </ observation> </component> <component> <observation moodCode= "EVN" classCode="OBS"> <templateId root="2.16.840.1.000401.10..22.4.2 " /> <id nullFlavor="NA" /> <code codeSystem="local" code= "CREAT" displayName="Creatinine" /> <statusCode code="completed" /> <effectiveTime value="" /> <value unit="mg/dL" xsi: type="PQ" value="0.54" /> <referenceRange> <observationRange > <text>0.44-1.03</text> </observationRange> </ referenceRange> </observation> </component> <component> <observation moodCode="EVN" classCode="OBS"> <templateId root= "11.30.840.1.361690.10..22.4.2" /> <id nullFlavor="NA" /> < code codeSystem="local" code="GLOB" displayName="Globulin" /> < statusCode code="completed" /> <effectiveTime value="" /> <value unit="g/dL" xsi:type="PQ" value="2.1" /> < referenceRange> <observationRange> <text>1.9-4.3</text> </observationRange> </referenceRange> </observation > </component> <component> <observation moodCode="EVN" classCode="OBS"> <templateId root="11.30.840.1.889673...4.2" /> <id nullFlavor="NA" /> <code codeSystem="local" code="GLU" displayName="Glucose" /> <statusCode code="completed" /> < effectiveTime value="" /> <value unit="mg/dL" xsi:type="PQ " value="83" /> <referenceRange> <observationRange> <text>70-100</text> </observationRange> </ referenceRange> </observation> </component> <component> <observation moodCode="EVN" classCode="OBS"> <templateId root= "11.30.840.1.355925.10.22.4.2" /> <id nullFlavor="NA" /> < code codeSystem="local" code="K" displayName="Potassium" /> < statusCode code="completed" /> <effectiveTime value="" /> <value unit="mEq/L" xsi:type="PQ" value="3.9" /> < referenceRange> <observationRange> <text>3.6-5.1</text> </observationRange> </referenceRange> </observation > </component> <component> <observation moodCode="EVN" classCode="OBS"> <templateId root="16.840.1.774588.10.4.2" /> <id nullFlavor="NA" /> <code codeSystem="local" code="TP" displayName="Protein" /> <statusCode code="completed" /> < effectiveTime value="" /> <value unit="g/dL" xsi:type="PQ" value="5.5" /> <interpretationCode codeSystem="local" code="*" /> <referenceRange> <observationRange> <text>6.1-7.9</ text> </observationRange> </referenceRange> </ observation> </component> <component> <observation moodCode= "EVN" classCode="OBS"> <templateId root="16.840.1.039239.08.03.22.4.2 " /> <id nullFlavor="NA" /> <code codeSystem="local" code="NA " displayName="Sodium" /> <statusCode code="completed" /> < effectiveTime value="" /> <value unit="mEq/L" xsi:type="PQ " value="139" /> <referenceRange> <observationRange> <text>136-144</text> </observationRange> </ referenceRange> </observation> </component> </organizer> </entry > <entry> <organizer moodCode="EVN" classCode="BATTERY"> <templateId root="16.840.1.016857.10..4.1" /> <id nullFlavor="NA" /> <code codeSystem="local" code="GFR" displayName="eGFR" /> <statusCode code= "completed" /> <component> <observation moodCode="EVN" classCode= "OBS"> <templateId root="2.16.840.1.014772.10.20.22.4.2" /> < id nullFlavor="NA" /> <code codeSystem="local" code="GFR" displayName= "eGFR" /> <statusCode code="completed" /> <effectiveTime value ="397617139271" /> <value unit="mL/min" xsi:type="PQ" value=">60" / > <referenceRange> <observationRange> <text>&gt ;60</text> </observationRange> </referenceRange> </ observation> </component> </organizer> </entry> <entry> <organizer moodCode="EVN" classCode="BATTERY"> <templateId root= "2.16.840.1.131132.10..22.4.1" /> <id nullFlavor="NA" /> <code codeSystem="local" code="TSHR" displayName="TSH with Reflex Free T4" /> < statusCode code="completed" /> <component> <observation moodCode= "EVN" classCode="OBS"> <templateId root="2.16.840.1.116491.10.20.22.4.2 " /> <id nullFlavor="NA" /> <code codeSystem="local" code= "TSHR" displayName="TSH with Reflex Free T4" /> <statusCode code= "completed" /> <effectiveTime value="327121062246" /> <value unit="uIU/mL" xsi:type="PQ" value="1.17" /> <referenceRange> <observationRange> <text>0.35-4.94</text> </ observationRange> </referenceRange> </observation> </ component> </organizer> </entry> <entry> <organizer moodCode="EVN" classCode="BATTERY"> <templateId root="11.30.840.1.168415.10.4.1" /> <id nullFlavor="NA" /> <code codeSystem="local" code="UA" displayName= "Urinalysis with reflex microscopic" /> <statusCode code="completed" /> <component> <observation moodCode="EVN" classCode="OBS"> < templateId root="840.1.493109.08.03.22.4.2" /> <id nullFlavor="NA " /> <code codeSystem="local" code="UAPP" displayName="Appearance" /> <statusCode code="completed" /> <effectiveTime value= "" /> <value unit="NA" xsi:type="PQ" value="Sl Cloudy" /> <referenceRange> <observationRange> <text /> </observationRange> </referenceRange> </observation> </component> <component> <observation moodCode="EVN" classCode= "OBS"> <templateId root="840.1.234736.08.03.22.4.2" /> < id nullFlavor="NA" /> <code codeSystem="local" code="UBIL" displayName= "Bilirubin" /> <statusCode code="completed" /> <effectiveTime value="" /> <value unit="NA" xsi:type="PQ" value="Negative " /> <referenceRange> <observationRange> <text> Negative</text> </observationRange> </referenceRange> </observation> </component> <component> <observation moodCode ="EVN" classCode="OBS"> <templateId root= "11.30.840.1.164601.08.03.22.4.2" /> <id nullFlavor="NA" /> < code codeSystem="local" code="UBLD" displayName="Blood" /> <statusCode code="completed" /> <effectiveTime value="712630007271" /> < value unit="NA" xsi:type="PQ" value="Pos 3+" /> <interpretationCode codeSystem="local" code="*" /> <referenceRange> < observationRange> <text>Negative</text> </ observationRange> </referenceRange> </observation> </ component> <component> <observation moodCode="EVN" classCode="OBS"> <templateId root="2.16.840.1.256980.10...4.2" /> <id nullFlavor="NA" /> <code codeSystem="local" code="UCOLR" displayName= "Color" /> <statusCode code="completed" /> <effectiveTime value="" /> <value unit="NA" xsi:type="PQ" value="Aliza" / > <interpretationCode codeSystem="local" code="*" /> < referenceRange> <observationRange> <text /> < /observationRange> </referenceRange> </observation> </ component> <component> <observation moodCode="EVN" classCode="OBS"> <templateId root="2.16.840.1.260823.10..22.4.2" /> <id nullFlavor="NA" /> <code codeSystem="local" code="UGLU" displayName= "Glucose, Urine" /> <statusCode code="completed" /> < effectiveTime value="772516859017" /> <value unit="" xsi:type="PQ" value="Negative" /> <referenceRange> <observationRange> <text>Negative</text> </observationRange> </ referenceRange> </observation> </component> <component> <observation moodCode="EVN" classCode="OBS"> <templateId root= "216.840.1.460981.10.4.2" /> <id nullFlavor="NA" /> < code codeSystem="local" code="UKET" displayName="Ketones" /> < statusCode code="completed" /> <effectiveTime value="" /> <value unit="" xsi:type="PQ" value="Negative" /> < referenceRange> <observationRange> <text>Negative</text > </observationRange> </referenceRange> </observation > </component> <component> <observation moodCode="EVN" classCode="OBS"> <templateId root="216.840.1.280855.08.03.22.4.2" /> <id nullFlavor="NA" /> <code codeSystem="local" code="ULEU" displayName="Leukocyte Esterase" /> <statusCode code="completed" /> <effectiveTime value="" /> <value unit="NA" xsi:type ="PQ" value="Negative" /> <referenceRange> <observationRange > <text>Negative</text> </observationRange> </ referenceRange> </observation> </component> <component> <observation moodCode="EVN" classCode="OBS"> <templateId root= "16.840.1.274296.08.03.22.4.2" /> <id nullFlavor="NA" /> < code codeSystem="local" code="UNIT" displayName="Nitrites" /> < statusCode code="completed" /> <effectiveTime value="" /> <value unit="NA" xsi:type="PQ" value="Negative" /> < referenceRange> <observationRange> <text>Negative</text > </observationRange> </referenceRange> </observation > </component> <component> <observation moodCode="EVN" classCode="OBS"> <templateId root="16.840.1.779736.10..22.4.2" /> <id nullFlavor="NA" /> <code codeSystem="local" code="UPH" displayName="pH" /> <statusCode code="completed" /> < effectiveTime value="" /> <value unit="NA" xsi:type="PQ" value="5.0" /> <referenceRange> <observationRange> <text>5.0-8.0</text> </observationRange> </ referenceRange> </observation> </component> <component> <observation moodCode="EVN" classCode="OBS"> <templateId root= "16.840.1.905537...4.2" /> <id nullFlavor="NA" /> < code codeSystem="local" code="UPRO" displayName="Protein" /> < statusCode code="completed" /> <effectiveTime value="" /> <value unit="NA" xsi:type="PQ" value="Negative" /> < referenceRange> <observationRange> <text>Negative</text > </observationRange> </referenceRange> </observation > </component> <component> <observation moodCode="EVN" classCode="OBS"> <templateId root="11.30.840.1.514295.10..4.2" /> <id nullFlavor="NA" /> <code codeSystem="local" code="USPG" displayName="Specific [place]" /> <statusCode code="completed" /> <effectiveTime value="" /> <value unit="NA" xsi:type= "PQ" value="1.025" /> <referenceRange> <observationRange> <text>1.003-1.030</text> </observationRange> </ referenceRange> </observation> </component> <component> <observation moodCode="EVN" classCode="OBS"> <templateId root= "216.840.1.841669.10.4.2" /> <id nullFlavor="NA" /> < code codeSystem="local" code="UTYP" displayName="UA Collection type" /> <statusCode code="completed" /> <effectiveTime value="804250117034" / > <value unit="NA" xsi:type="PQ" value="Clean Catch" /> < referenceRange> <observationRange> <text /> < /observationRange> </referenceRange> </observation> </ component> <component> <observation moodCode="EVN" classCode="OBS"> <templateId root="216.840.1.498498.08.03.22.4.2" /> <id nullFlavor="NA" /> <code codeSystem="local" code="UURO" displayName= "Urobilinogen" /> <statusCode code="completed" /> < effectiveTime value="670529532114" /> <value unit="mg/dL" xsi:type="PQ " value="2.0" /> <interpretationCode codeSystem="local" code="*" /> <referenceRange> <observationRange> <text><1.0 </text> </observationRange> </referenceRange> </ observation> </component> </organizer> </entry> <entry> <organizer moodCode="EVN" classCode="BATTERY"> <templateId root= "216.840.1.985036.08.03.22.4.1" /> <id nullFlavor="NA" /> <code codeSystem="local" code="UMIC" displayName="Urine Microscopic" /> < statusCode code="completed" /> <component> <observation moodCode= "EVN" classCode="OBS"> <templateId root="16.840.1.205216.10.4.2 " /> <id nullFlavor="NA" /> <code codeSystem="local" code= "UBAC" displayName="Bacteria" /> <statusCode code="completed" /> <effectiveTime value="" /> <value unit="NA" xsi:type= "PQ" value="Rare" /> <referenceRange> <observationRange> <text /> </observationRange> </referenceRange> </observation> </component> <component> <observation moodCode="EVN" classCode="OBS"> <templateId root= "11.30.840.1.175393.08.03.22.4.2" /> <id nullFlavor="NA" /> < code codeSystem="local" code="UCRY1" displayName="Crystals" /> < statusCode code="completed" /> <effectiveTime value="" /> <value unit="NA" xsi:type="PQ" value="Ca Ox" /> < referenceRange> <observationRange> <text /> < /observationRange> </referenceRange> </observation> </ component> <component> <observation moodCode="EVN" classCode="OBS"> <templateId root="11.30.840.1.157939.10.4.2" /> <id nullFlavor="NA" /> <code codeSystem="local" code="UEPI" displayName= "Epithelial Cells" /> <statusCode code="completed" /> < effectiveTime value="" /> <value unit="/HPF" xsi:type="PQ" value="0" /> <referenceRange> <observationRange> <text /> </observationRange> </referenceRange> </ observation> </component> <component> <observation moodCode= "EVN" classCode="OBS"> <templateId root="216.840.1.884808.10..4.2 " /> <id nullFlavor="NA" /> <code codeSystem="local" code= "URBC" displayName="RBC, Urine" /> <statusCode code="completed" /> <effectiveTime value="" /> <value unit="/HPF" xsi: type="PQ" value="0" /> <referenceRange> <observationRange> <text>0-2</text> </observationRange> </ referenceRange> </observation> </component> <component> <observation moodCode="EVN" classCode="OBS"> <templateId root= "216.840.1.225168...4.2" /> <id nullFlavor="NA" /> < code codeSystem="local" code="UMUC" displayName="Urine Mucus" /> < statusCode code="completed" /> <effectiveTime value="" /> <value unit="NA" xsi:type="PQ" value="Present" /> < referenceRange> <observationRange> <text /> < /observationRange> </referenceRange> </observation> </ component> <component> <observation moodCode="EVN" classCode="OBS"> <templateId root="16.840.1.393674.10..4.2" /> <id nullFlavor="NA" /> <code codeSystem="local" code="UWBC" displayName= "WBC, Urine" /> <statusCode code="completed" /> < effectiveTime value="" /> <value unit="/HPF" xsi:type="PQ" value="2" /> <referenceRange> <observationRange> <text>0-4</text> </observationRange> </referenceRange> </observation> </component> </organizer> </entry> <entry> < organizer moodCode="EVN" classCode="BATTERY"> <templateId root= "16.840.1.739219.10..22.4.1" /> <id nullFlavor="NA" /> <code codeSystem="local" code="UDRGH" displayName="Urine Drug Screen" /> < statusCode code="completed" /> <component> <observation moodCode= "EVN" classCode="OBS"> <templateId root="11.30.840.1.802266...4.2 " /> <id nullFlavor="NA" /> <code codeSystem="local" code= "UTCA1" displayName="Tricyclics" /> <statusCode code="completed" /> <effectiveTime value="944042452307" /> <value unit="NA" xsi:type ="PQ" value="Negative" /> <referenceRange> <observationRange > <text /> </observationRange> </referenceRange > </observation> </component> </organizer> </entry> <entry> <organizer moodCode="EVN" classCode="BATTERY"> <templateId root= "11.30.840.1.334954.08.03.22.4.1" /> <id nullFlavor="NA" /> <code codeSystem="local" code="PREGN" displayName=" Screen, Urine NPT" /> <statusCode code="completed" /> <component> <observation moodCode ="EVN" classCode="OBS"> <templateId root= "16.840.1.443592.10..22.4.2" /> <id nullFlavor="NA" /> < code codeSystem="local" code="PREGN" displayName=" Screen, Urine NPT" / > <statusCode code="completed" /> <effectiveTime value= "901109270744" /> <value unit="NA" xsi:type="PQ" value="Negative" /> <referenceRange> <observationRange> <text /> </observationRange> </referenceRange> </observation> </component> </organizer> </entry> <entry> <organizer moodCode="EVN " classCode="BATTERY"> <templateId root="16.840.1.009945.10..4.1" / > <id nullFlavor="NA" /> <code codeSystem="local" code="CBCWD" displayName="CBC With Platelet and Differential" /> <statusCode code= "completed" /> <component> <observation moodCode="EVN" classCode= "OBS"> <templateId root="216.840.1.766503...4.2" /> < id nullFlavor="NA" /> <code codeSystem="local" code="ABASR" displayName ="Absolute Basophils" /> <statusCode code="completed" /> < effectiveTime value="358640214095" /> <value unit="10*3/uL" xsi:type= "PQ" value="0.04" /> <referenceRange> <observationRange> <text>0.00-0.20</text> </observationRange> </ referenceRange> </observation> </component> <component> <observation moodCode="EVN" classCode="OBS"> <templateId root= "216.840.1.097930...4.2" /> <id nullFlavor="NA" /> < code codeSystem="local" code="AEOSR" displayName="Absolute Eosinophils" /> <statusCode code="completed" /> <effectiveTime value="831590962378 " /> <value unit="10*3/uL" xsi:type="PQ" value="0.32" /> < referenceRange> <observationRange> <text>0.00-0.50</text > </observationRange> </referenceRange> </observation > </component> <component> <observation moodCode="EVN" classCode="OBS"> <templateId root="216.840.1.656212.10...4.2" /> <id nullFlavor="NA" /> <code codeSystem="local" code="ALYMR" displayName="Absolute Lymphocytes" /> <statusCode code="completed" /> <effectiveTime value="331368040108" /> <value unit="10" xsi:type="PQ" value="1.20" /> <referenceRange> < observationRange> <text>0.80-3.30</text> </ observationRange> </referenceRange> </observation> </ component> <component> <observation moodCode="EVN" classCode="OBS"> <templateId root="11.30.840.1.804794.08.03.22.4.2" /> <id nullFlavor="NA" /> <code codeSystem="local" code="AMONR" displayName= "Absolute Monocytes" /> <statusCode code="completed" /> < effectiveTime value="821530945679" /> <value unit="" xsi:type= "PQ" value="0.36" /> <referenceRange> <observationRange> <text>0.30-1.00</text> </observationRange> </ referenceRange> </observation> </component> <component> <observation moodCode="EVN" classCode="OBS"> <templateId root= "11.30.840.1.321874...22.4.2" /> <id nullFlavor="NA" /> < code codeSystem="local" code="ASEGR" displayName="Absolute Neutrophils" /> <statusCode code="completed" /> <effectiveTime value="321752024933 " /> <value unit="10*3/uL" xsi:type="PQ" value="2.23" /> < referenceRange> <observationRange> <text>1.90-7.00</text > </observationRange> </referenceRange> </observation > </component> <component> <observation moodCode="EVN" classCode="OBS"> <templateId root="216.840.1.960541.10..22.4.2" /> <id nullFlavor="NA" /> <code codeSystem="local" code="BASOR" displayName="Basophils" /> <statusCode code="completed" /> < effectiveTime value="109027944354" /> <value unit="%" xsi:type="PQ " value="1" /> <referenceRange> <observationRange> <text>0-2</text> </observationRange> </referenceRange> </observation> </component> <component> <observation moodCode="EVN" classCode="OBS"> <templateId root= "2.16.840.1.538661.10..22.4.2" /> <id nullFlavor="NA" /> < code codeSystem="local" code="EOSR" displayName="Eosinophils" /> < statusCode code="completed" /> <effectiveTime value="943087512959" /> <value unit="%" xsi:type="PQ" value="8" /> < interpretationCode codeSystem="local" code="*" /> <referenceRange> <observationRange> <text>0-4</text> </ observationRange> </referenceRange> </observation> </ component> <component> <observation moodCode="EVN" classCode="OBS"> <templateId root="16.840.1.225241.10.20.22.4.2" /> <id nullFlavor="NA" /> <code codeSystem="local" code="HCT" displayName="HCT " /> <statusCode code="completed" /> <effectiveTime value= "" /> <value unit="%" xsi:type="PQ" value="37.0" /> <referenceRange> <observationRange> <text>37.0- 47.0</text> </observationRange> </referenceRange> </ observation> </component> <component> <observation moodCode= "EVN" classCode="OBS"> <templateId root="16.840.1.950656.10.22.4.2 " /> <id nullFlavor="NA" /> <code codeSystem="local" code="HGB " displayName="HGB" /> <statusCode code="completed" /> < effectiveTime value="" /> <value unit="g/dL" xsi:type="PQ" value="12.1" /> <referenceRange> <observationRange> <text>12.0-16.0</text> </observationRange> </ referenceRange> </observation> </component> <component> <observation moodCode="EVN" classCode="OBS"> <templateId root= "16.840.1.782613.10.20.22.4.2" /> <id nullFlavor="NA" /> < code codeSystem="local" code="IMGA" displayName="Immature Granulocytes" /> <statusCode code="completed" /> <effectiveTime value="615973787759 " /> <value unit="%" xsi:type="PQ" value="0.2" /> < referenceRange> <observationRange> <text>0.0-1.0</text> </observationRange> </referenceRange> </observation > </component> <component> <observation moodCode="EVN" classCode="OBS"> <templateId root="16.840.1.142816.10.4.2" /> <id nullFlavor="NA" /> <code codeSystem="local" code="LYMPR" displayName="Lymphocytes" /> <statusCode code="completed" /> < effectiveTime value="" /> <value unit="%" xsi:type="PQ " value="29" /> <referenceRange> <observationRange> <text>20-46</text> </observationRange> </ referenceRange> </observation> </component> <component> <observation moodCode="EVN" classCode="OBS"> <templateId root= "11.30.840.1.962592.08.03.22.4.2" /> <id nullFlavor="NA" /> < code codeSystem="local" code="MCH" displayName="MCH" /> <statusCode code="completed" /> <effectiveTime value="064495072712" /> < value unit="pg" xsi:type="PQ" value="30.6" /> <referenceRange> <observationRange> <text>27.0-32.0</text> </ observationRange> </referenceRange> </observation> </ component> <component> <observation moodCode="EVN" classCode="OBS"> <templateId root="11.30.840.1.058089.08.03.22.4.2" /> <id nullFlavor="NA" /> <code codeSystem="local" code="MCHC" displayName= "MCHC" /> <statusCode code="completed" /> <effectiveTime value ="" /> <value unit="g/dL" xsi:type="PQ" value="32.7" /> <referenceRange> <observationRange> <text>32.0- 36.0</text> </observationRange> </referenceRange> </ observation> </component> <component> <observation moodCode= "EVN" classCode="OBS"> <templateId root="216.840.1.016374.10..22.4.2 " /> <id nullFlavor="NA" /> <code codeSystem="local" code="MCV " displayName="MCV" /> <statusCode code="completed" /> < effectiveTime value="110861730928" /> <value unit="fL" xsi:type="PQ" value="93.4" /> <referenceRange> <observationRange> <text>82.0-99.0</text> </observationRange> </ referenceRange> </observation> </component> <component> <observation moodCode="EVN" classCode="OBS"> <templateId root= "11.30.840.1.928690.08.03.22.4.2" /> <id nullFlavor="NA" /> < code codeSystem="local" code="MONOR" displayName="Monocytes" /> < statusCode code="completed" /> <effectiveTime value="263045062817" /> <value unit="%" xsi:type="PQ" value="9" /> <referenceRange > <observationRange> <text>4-11</text> </ observationRange> </referenceRange> </observation> </ component> <component> <observation moodCode="EVN" classCode="OBS"> <templateId root="16.840.1.958512.10..22.4.2" /> <id nullFlavor="NA" /> <code codeSystem="local" code="MPV" displayName="MPV " /> <statusCode code="completed" /> <effectiveTime value= "585616665289" /> <value unit="fL" xsi:type="PQ" value="10.1" /> <referenceRange> <observationRange> <text>9.4-12.4</ text> </observationRange> </referenceRange> </ observation> </component> <component> <observation moodCode= "EVN" classCode="OBS"> <templateId root="11.30.840.1.607751.08.03.22.4.2 " /> <id nullFlavor="NA" /> <code codeSystem="local" code= "SEGR" displayName="Neutrophils" /> <statusCode code="completed" /> <effectiveTime value="008715627470" /> <value unit="%" xsi: type="PQ" value="54" /> <referenceRange> <observationRange> <text>51-75</text> </observationRange> </ referenceRange> </observation> </component> <component> <observation moodCode="EVN" classCode="OBS"> <templateId root= "11.30.840.1.793348.08.03.22.4.2" /> <id nullFlavor="NA" /> < code codeSystem="local" code="NRBCA" displayName="Nucleated RBC Automated" /> <statusCode code="completed" /> <effectiveTime value= "061787110974" /> <value unit="/100WBC" xsi:type="PQ" value="0.0" /> <referenceRange> <observationRange> <text /> </observationRange> </referenceRange> </observation> </component> <component> <observation moodCode="EVN" classCode= "OBS"> <templateId root="11.30.840.1.090524.08.03.22.4.2" /> < id nullFlavor="NA" /> <code codeSystem="local" code="PLT" displayName= "Platelet Count" /> <statusCode code="completed" /> < effectiveTime value="714126965870" /> <value unit="K/uL" xsi:type="PQ" value="192" /> <referenceRange> <observationRange> <text>150-400</text> </observationRange> </ referenceRange> </observation> </component> <component> <observation moodCode="EVN" classCode="OBS"> <templateId root= "2.16.840.1.296677.08.03.22.4.2" /> <id nullFlavor="NA" /> < code codeSystem="local" code="RBC" displayName="RBC" /> <statusCode code="completed" /> <effectiveTime value="713949831028" /> < value unit="10*6/uL" xsi:type="PQ" value="3.96" /> <interpretationCode codeSystem="local" code="*" /> <referenceRange> < observationRange> <text>4.00-5.20</text> </ observationRange> </referenceRange> </observation> </ component> <component> <observation moodCode="EVN" classCode="OBS"> <templateId root="216.840.1.236336.1022.4.2" /> <id nullFlavor="NA" /> <code codeSystem="local" code="RDW" displayName="RDW " /> <statusCode code="completed" /> <effectiveTime value= "489552327510" /> <value unit="%" xsi:type="PQ" value="13.3" /> <referenceRange> <observationRange> <text>11.5- 14.5</text> </observationRange> </referenceRange> </ observation> </component> <component> <observation moodCode= "EVN" classCode="OBS"> <templateId root="216.840.1.715365.10.22.4.2 " /> <id nullFlavor="NA" /> <code codeSystem="local" code= "WBCIR" displayName="WBC" /> <statusCode code="completed" /> < effectiveTime value="408834729872" /> <value unit="K/uL" xsi:type="PQ" value="4.2" /> <interpretationCode codeSystem="local" code="*" /> <referenceRange> <observationRange> <text>4.8-10.8< /text> </observationRange> </referenceRange> </ observation> </component> </organizer> </entry> <entry> <organizer moodCode="EVN" classCode="BATTERY"> <templateId root= "216.840.1.278867.10..22.4.1" /> <id nullFlavor="NA" /> <code codeSystem="local" code="CMP" displayName="Comprehensive Metabolic Panel (CMP)" /> <statusCode code="completed" /> <component> <observation moodCode="EVN" classCode="OBS"> <templateId root= "216.840.1.312504.10..22.4.2" /> <id nullFlavor="NA" /> < code codeSystem="local" code="ALB" displayName="Albumin" /> < statusCode code="completed" /> <effectiveTime value="321785971964" /> <value unit="g/dL" xsi:type="PQ" value="3.5" /> < referenceRange> <observationRange> <text>3.5-4.8</text> </observationRange> </referenceRange> </observation > </component> <component> <observation moodCode="EVN" classCode="OBS"> <templateId root="216.840.1.393691.10..22.4.2" /> <id nullFlavor="NA" /> <code codeSystem="local" code="ALP" displayName="Alkaline Phosphatase" /> <statusCode code="completed" /> <effectiveTime value="133954218174" /> <value unit="U/L" xsi: type="PQ" value="64" /> <referenceRange> <observationRange> <text>26-104</text> </observationRange> </ referenceRange> </observation> </component> <component> <observation moodCode="EVN" classCode="OBS"> <templateId root= "16.840.1.843368.10..22.4.2" /> <id nullFlavor="NA" /> < code codeSystem="local" code="ALT" displayName="ALT (SGPT)" /> < statusCode code="completed" /> <effectiveTime value="759137837959" /> <value unit="U/L" xsi:type="PQ" value="209" /> < interpretationCode codeSystem="local" code="*" /> <referenceRange> <observationRange> <text>14-54</text> </ observationRange> </referenceRange> </observation> </ component> <component> <observation moodCode="EVN" classCode="OBS"> <templateId root="16.840.1.750548.10..22.4.2" /> <id nullFlavor="NA" /> <code codeSystem="local" code="AGAP" displayName= "Anion Gap" /> <statusCode code="completed" /> <effectiveTime value="654295575128" /> <value unit="mEq/L" xsi:type="PQ" value="8" /> <referenceRange> <observationRange> <text>3-20 </text> </observationRange> </referenceRange> </ observation> </component> <component> <observation moodCode= "EVN" classCode="OBS"> <templateId root="11.30.840.1.107918.10.20.22.4.2 " /> <id nullFlavor="NA" /> <code codeSystem="local" code="AST " displayName="AST (SGOT)" /> <statusCode code="completed" /> <effectiveTime value="348321970219" /> <value unit="U/L" xsi:type="PQ" value="155" /> <interpretationCode codeSystem="local" code="*" /> <referenceRange> <observationRange> <text>15-41</ text> </observationRange> </referenceRange> </ observation> </component> <component> <observation moodCode= "EVN" classCode="OBS"> <templateId root="11.30.840.1.990805...4.2 " /> <id nullFlavor="NA" /> <code codeSystem="local" code= "BILIT" displayName="Bilirubin Total" /> <statusCode code="completed" / > <effectiveTime value="620918481322" /> <value unit="mg/dL" xsi:type="PQ" value="0.5" /> <referenceRange> < observationRange> <text>0.2-1.2</text> </ observationRange> </referenceRange> </observation> </ component> <component> <observation moodCode="EVN" classCode="OBS"> <templateId root="11.30.840.1.167520.10.20.22.4.2" /> <id nullFlavor="NA" /> <code codeSystem="local" code="BUN" displayName="BUN " /> <statusCode code="completed" /> <effectiveTime value= "304224165422" /> <value unit="mg/dL" xsi:type="PQ" value="8" /> <referenceRange> <observationRange> <text>4-20</text > </observationRange> </referenceRange> </observation > </component> <component> <observation moodCode="EVN" classCode="OBS"> <templateId root="11.30.840.1.902514.10.22.4.2" /> <id nullFlavor="NA" /> <code codeSystem="local" code="CA" displayName="Calcium" /> <statusCode code="completed" /> < effectiveTime value="283418574409" /> <value unit="mg/dL" xsi:type="PQ " value="8.8" /> <referenceRange> <observationRange> <text>8.6-10.0</text> </observationRange> </ referenceRange> </observation> </component> <component> <observation moodCode="EVN" classCode="OBS"> <templateId root= "11.30.840.1.210958..22.4.2" /> <id nullFlavor="NA" /> < code codeSystem="local" code="CL" displayName="Chloride" /> < statusCode code="completed" /> <effectiveTime value="891898055736" /> <value unit="mEq/L" xsi:type="PQ" value="108" /> < referenceRange> <observationRange> <text>99-109</text> </observationRange> </referenceRange> </observation> </component> <component> <observation moodCode="EVN" classCode ="OBS"> <templateId root="11.30.840.1.340647.10.4.2" /> < id nullFlavor="NA" /> <code codeSystem="local" code="CO2" displayName= "CO2" /> <statusCode code="completed" /> <effectiveTime value= "467323021461" /> <value unit="mEq/L" xsi:type="PQ" value="24" /> <referenceRange> <observationRange> <text>22-32</ text> </observationRange> </referenceRange> </ observation> </component> <component> <observation moodCode= "EVN" classCode="OBS"> <templateId root="216.840.1.721752.08.03.22.4.2 " /> <id nullFlavor="NA" /> <code codeSystem="local" code= "CREAT" displayName="Creatinine" /> <statusCode code="completed" /> <effectiveTime value="772429846863" /> <value unit="mg/dL" xsi: type="PQ" value="0.77" /> <referenceRange> <observationRange > <text>0.44-1.03</text> </observationRange> </ referenceRange> </observation> </component> <component> <observation moodCode="EVN" classCode="OBS"> <templateId root= "2.16.840.1.231489.08.03.22.4.2" /> <id nullFlavor="NA" /> < code codeSystem="local" code="GLOB" displayName="Globulin" /> < statusCode code="completed" /> <effectiveTime value="333145033583" /> <value unit="g/dL" xsi:type="PQ" value="2.3" /> < referenceRange> <observationRange> <text>1.9-4.3</text> </observationRange> </referenceRange> </observation > </component> <component> <observation moodCode="EVN" classCode="OBS"> <templateId root="840.1.391913.10.20.22.4.2" /> <id nullFlavor="NA" /> <code codeSystem="local" code="GLU" displayName="Glucose" /> <statusCode code="completed" /> < effectiveTime value="002631001070" /> <value unit="mg/dL" xsi:type="PQ " value="111" /> <interpretationCode codeSystem="local" code="*" /> <referenceRange> <observationRange> <text>70-100< /text> </observationRange> </referenceRange> </ observation> </component> <component> <observation moodCode= "EVN" classCode="OBS"> <templateId root="840.1.827903.10.22.4.2 " /> <id nullFlavor="NA" /> <code codeSystem="local" code="K" displayName="Potassium" /> <statusCode code="completed" /> < effectiveTime value="929357127752" /> <value unit="mEq/L" xsi:type="PQ " value="3.5" /> <interpretationCode codeSystem="local" code="*" /> <referenceRange> <observationRange> <text>3.6-5.1 </text> </observationRange> </referenceRange> </ observation> </component> <component> <observation moodCode= "EVN" classCode="OBS"> <templateId root="840.1.955416.10.2022.4.2 " /> <id nullFlavor="NA" /> <code codeSystem="local" code="TP " displayName="Protein" /> <statusCode code="completed" /> < effectiveTime value="061105187853" /> <value unit="g/dL" xsi:type="PQ" value="5.8" /> <interpretationCode codeSystem="local" code="*" /> <referenceRange> <observationRange> <text>6.1-7.9</ text> </observationRange> </referenceRange> </ observation> </component> <component> <observation moodCode= "EVN" classCode="OBS"> <templateId root="11.30.840.1.848158.08.03.22.4.2 " /> <id nullFlavor="NA" /> <code codeSystem="local" code="NA " displayName="Sodium" /> <statusCode code="completed" /> < effectiveTime value="965100416211" /> <value unit="mEq/L" xsi:type="PQ " value="140" /> <referenceRange> <observationRange> <text>136-144</text> </observationRange> </ referenceRange> </observation> </component> </organizer> </entry > <entry> <organizer moodCode="EVN" classCode="BATTERY"> <templateId root="840.1.129861.08.03.22.4.1" /> <id nullFlavor="NA" /> <code codeSystem="local" code="ALC" displayName="Alcohol, Blood" /> <statusCode code="completed" /> <component> <observation moodCode="EVN" classCode="OBS"> <templateId root="11.30.840.1.298613.1022.4.2" /> <id nullFlavor="NA" /> <code codeSystem="local" code="ALC" displayName="Alcohol, Blood" /> <statusCode code="completed" /> <effectiveTime value="244880459033" /> <value unit="mg/dL" xsi:type= "PQ" value="Not Detected" /> <referenceRange> < observationRange> <text /> </observationRange> </referenceRange> </observation> </component> </organizer> </ entry> <entry> <organizer moodCode="EVN" classCode="BATTERY"> < templateId root="11.30.840.1.695447.10.4.1" /> <id nullFlavor="NA" /> <code codeSystem="local" code="GFR" displayName="eGFR" /> < statusCode code="completed" /> <component> <observation moodCode= "EVN" classCode="OBS"> <templateId root="840.1.217223.08.03.224.2 " /> <id nullFlavor="NA" /> <code codeSystem="local" code="GFR " displayName="eGFR" /> <statusCode code="completed" /> < effectiveTime value="318460875909" /> <value unit="mL/min" xsi:type="PQ " value=">60" /> <referenceRange> <observationRange> <text>>60</text> </observationRange> </ referenceRange> </observation> </component> </organizer> </entry > <entry> <organizer moodCode="EVN" classCode="BATTERY"> <templateId root="840.1.830372.08.03.22.4.1" /> <id nullFlavor="NA" /> <code codeSystem="local" code="ACETM" displayName="Acetaminophen" /> <statusCode code="completed" /> <component> <observation moodCode="EVN" classCode="OBS"> <templateId root="11.30.840.1.271279.08.03.22.4.2" /> <id nullFlavor="NA" /> <code codeSystem="local" code="ACETM" displayName="Acetaminophen" /> <statusCode code="completed" /> <effectiveTime value="881276382672" /> <value unit="mcg/mL" xsi:type= "PQ" value="<10" /> <referenceRange> <observationRange> <text>10-30</text> </observationRange> </ referenceRange> </observation> </component> </organizer> </entry > <entry> <organizer moodCode="EVN" classCode="BATTERY"> <templateId root="2.16.840.1.155474.10..22.4.1" /> <id nullFlavor="NA" /> <code codeSystem="local" code="SALIC" displayName="Salicylate" /> <statusCode code="completed" /> <component> <observation moodCode="EVN" classCode="OBS"> <templateId root="2.16.840.1.938865.10..22.4.2" /> <id nullFlavor="NA" /> <code codeSystem="local" code="SALIC" displayName="Salicylate" /> <statusCode code="completed" /> < effectiveTime value="337396274156" /> <value unit="mg/dL" xsi:type="PQ " value="<4" /> <referenceRange> <observationRange> <text>0-30</text> </observationRange> </ referenceRange> </observation> </component> </organizer> </entry > <entry> <organizer moodCode="EVN" classCode="BATTERY"> <templateId root="2.16.840.1.729853.10..22.4.1" /> <id nullFlavor="NA" /> <code codeSystem="local" code="TSHR" displayName="TSH with Reflex Free T4" /> < statusCode code="completed" /> <component> <observation moodCode= "EVN" classCode="OBS"> <templateId root="2.16.840.1.063517.10.20.22.4.2 " /> <id nullFlavor="NA" /> <code codeSystem="local" code= "TSHR" displayName="TSH with Reflex Free T4" /> <statusCode code= "completed" /> <effectiveTime value="930150014162" /> <value unit="uIU/mL" xsi:type="PQ" value="0.55" /> <referenceRange> <observationRange> <text>0.35-4.94</text> </ observationRange> </referenceRange> </observation> </ component> </organizer> </entry> <entry> <organizer moodCode="EVN" classCode="BATTERY"> <templateId root="2.16.840.1.833403.10.20.22.4.1" /> <id nullFlavor="NA" /> <code codeSystem="local" code="CPK" displayName ="Creatine Kinase (CPK)" /> <statusCode code="completed" /> <component > <observation moodCode="EVN" classCode="OBS"> <templateId root= "2.16.840.1.593881.10.20.22.4.2" /> <id nullFlavor="NA" /> < code codeSystem="local" code="CPK" displayName="Creatine Kinase (CPK)" /> <statusCode code="completed" /> <effectiveTime value="618129844001 " /> <value unit="U/L" xsi:type="PQ" value="74" /> < referenceRange> <observationRange> <text>38-234</text> </observationRange> </referenceRange> </observation> </component> </organizer> </entry> <entry> <organizer moodCode= "EVN" classCode="BATTERY"> <templateId root="11.30.840.1.617814.10...4.1 " /> <id nullFlavor="NA" /> <code codeSystem="local" code="HEP4" displayName="Hepatitis Panel" /> <statusCode code="completed" /> < component> <observation moodCode="EVN" classCode="OBS"> < templateId root="840.1.407097.08.03.22.4.2" /> <id nullFlavor="NA " /> <code codeSystem="local" code="HAABM" displayName="Hepatitis A Antibody IGM" /> <statusCode code="completed" /> < effectiveTime value="757445823909" /> <value unit="" xsi:type="PQ" value="Negative" /> <referenceRange> <observationRange> <text /> </observationRange> </referenceRange> </observation> </component> <component> <observation moodCode="EVN" classCode="OBS"> <templateId root= "840.1.682965.08.03.22.4.2" /> <id nullFlavor="NA" /> < code codeSystem="local" code="HBSAG" displayName="Hepatitis B Surface Antigen" / > <statusCode code="completed" /> <effectiveTime value= "572589794766" /> <value unit="" xsi:type="PQ" value="Negative" /> <referenceRange> <observationRange> <text /> </observationRange> </referenceRange> </observation> </component> </organizer> </entry> <entry> <organizer moodCode="EVN" classCode="BATTERY"> <templateId root="11.30.840.1.223126.08.03.22.4.1" /> <id nullFlavor="NA" /> <code codeSystem="local" code="PREGN" displayName=" Screen, Urine NPT" /> <statusCode code="completed" / > <component> <observation moodCode="EVN" classCode="OBS"> <templateId root="216.840.1.483113.1022.4.2" /> <id nullFlavor="NA " /> <code codeSystem="local" code="PREGN" displayName=" Screen, Urine NPT" /> <statusCode code="completed" /> < effectiveTime value="502012443434" /> <value unit="NA" xsi:type="PQ" value="Negative" /> <referenceRange> <observationRange> <text /> </observationRange> </referenceRange> </observation> </component> </organizer> </entry> <entry> < organizer moodCode="EVN" classCode="BATTERY"> <templateId root= "216.840.1.343091.22.4.1" /> <id nullFlavor="NA" /> <code codeSystem="local" code="UA" displayName="Urinalysis with reflex microscopic" / > <statusCode code="completed" /> <component> <observation moodCode="EVN" classCode="OBS"> <templateId root= "216.840.1.292772.10..22.4.2" /> <id nullFlavor="NA" /> < code codeSystem="local" code="UAPP" displayName="Appearance" /> < statusCode code="completed" /> <effectiveTime value="285783035487" /> <value unit="NA" xsi:type="PQ" value="Sl Cloudy" /> < referenceRange> <observationRange> <text /> < /observationRange> </referenceRange> </observation> </ component> <component> <observation moodCode="EVN" classCode="OBS"> <templateId root="216.840.1.130886.10.4.2" /> <id nullFlavor="NA" /> <code codeSystem="local" code="UBIL" displayName= "Bilirubin" /> <statusCode code="completed" /> <effectiveTime value="445785227651" /> <value unit="NA" xsi:type="PQ" value="Negative " /> <referenceRange> <observationRange> <text> Negative</text> </observationRange> </referenceRange> </observation> </component> <component> <observation moodCode ="EVN" classCode="OBS"> <templateId root= "216.840.1.101799.08.03.22.4.2" /> <id nullFlavor="NA" /> < code codeSystem="local" code="UBLD" displayName="Blood" /> <statusCode code="completed" /> <effectiveTime value="285802974505" /> < value unit="NA" xsi:type="PQ" value="Negative" /> <referenceRange> <observationRange> <text>Negative</text> </ observationRange> </referenceRange> </observation> </ component> <component> <observation moodCode="EVN" classCode="OBS"> <templateId root="216.840.1.480038.08.03.22.4.2" /> <id nullFlavor="NA" /> <code codeSystem="local" code="UCOLR" displayName= "Color" /> <statusCode code="completed" /> <effectiveTime value="465066313912" /> <value unit="NA" xsi:type="PQ" value="Yellow" / > <referenceRange> <observationRange> <text /> </observationRange> </referenceRange> </observation > </component> <component> <observation moodCode="EVN" classCode="OBS"> <templateId root="16.840.1.556522.10.4.2" /> <id nullFlavor="NA" /> <code codeSystem="local" code="UGLU" displayName="Glucose, Urine" /> <statusCode code="completed" /> <effectiveTime value="118980835223" /> <value unit="" xsi:type="PQ" value="Negative" /> <referenceRange> <observationRange> <text>Negative</text> </observationRange> </ referenceRange> </observation> </component> <component> <observation moodCode="EVN" classCode="OBS"> <templateId root= "11.30.840.1.050122.08.03.224.2" /> <id nullFlavor="NA" /> < code codeSystem="local" code="UKET" displayName="Ketones" /> < statusCode code="completed" /> <effectiveTime value="453433741455" /> <value unit="" xsi:type="PQ" value="Negative" /> < referenceRange> <observationRange> <text>Negative</text > </observationRange> </referenceRange> </observation > </component> <component> <observation moodCode="EVN" classCode="OBS"> <templateId root="11.30.840.1.751267.10..4.2" /> <id nullFlavor="NA" /> <code codeSystem="local" code="ULEU" displayName="Leukocyte Esterase" /> <statusCode code="completed" /> <effectiveTime value="938527020175" /> <value unit="NA" xsi:type ="PQ" value="Trace" /> <interpretationCode codeSystem="local" code="*" /> <referenceRange> <observationRange> <text> Negative</text> </observationRange> </referenceRange> </observation> </component> <component> <observation moodCode ="EVN" classCode="OBS"> <templateId root= "11.30.840.1.909487.08.03.22.4.2" /> <id nullFlavor="NA" /> < code codeSystem="local" code="UNIT" displayName="Nitrites" /> < statusCode code="completed" /> <effectiveTime value="114332917600" /> <value unit="NA" xsi:type="PQ" value="Negative" /> < referenceRange> <observationRange> <text>Negative</text > </observationRange> </referenceRange> </observation > </component> <component> <observation moodCode="EVN" classCode="OBS"> <templateId root="11.30.840.1.295608.08.03.22.4.2" /> <id nullFlavor="NA" /> <code codeSystem="local" code="UPH" displayName="pH" /> <statusCode code="completed" /> < effectiveTime value="178415314431" /> <value unit="NA" xsi:type="PQ" value="6.0" /> <referenceRange> <observationRange> <text>5.0-8.0</text> </observationRange> </ referenceRange> </observation> </component> <component> <observation moodCode="EVN" classCode="OBS"> <templateId root= "11.30.840.1.928284.08.03.22.4.2" /> <id nullFlavor="NA" /> < code codeSystem="local" code="UPRO" displayName="Protein" /> < statusCode code="completed" /> <effectiveTime value="675785471429" /> <value unit="NA" xsi:type="PQ" value="Negative" /> < referenceRange> <observationRange> <text>Negative</text > </observationRange> </referenceRange> </observation > </component> <component> <observation moodCode="EVN" classCode="OBS"> <templateId root="216.840.1.370366.10.4.2" /> <id nullFlavor="NA" /> <code codeSystem="local" code="USPG" displayName="Specific [place]" /> <statusCode code="completed" /> <effectiveTime value="462846772746" /> <value unit="NA" xsi:type= "PQ" value="1.020" /> <referenceRange> <observationRange> <text>1.003-1.030</text> </observationRange> </ referenceRange> </observation> </component> <component> <observation moodCode="EVN" classCode="OBS"> <templateId root= "16.840.1.291189.08.03.22.4.2" /> <id nullFlavor="NA" /> < code codeSystem="local" code="UTYP" displayName="UA Collection type" /> <statusCode code="completed" /> <effectiveTime value="369860252043" / > <value unit="NA" xsi:type="PQ" value="Voided" /> < referenceRange> <observationRange> <text /> < /observationRange> </referenceRange> </observation> </ component> <component> <observation moodCode="EVN" classCode="OBS"> <templateId root="16.840.1.419832.08.03.22.4.2" /> <id nullFlavor="NA" /> <code codeSystem="local" code="UURO" displayName= "Urobilinogen" /> <statusCode code="completed" /> < effectiveTime value="834982266417" /> <value unit="mg/dL" xsi:type="PQ " value="Negative" /> <referenceRange> <observationRange> <text><1.0</text> </observationRange> </ referenceRange> </observation> </component> </organizer> </entry > <entry> <organizer moodCode="EVN" classCode="BATTERY"> <templateId root="11.30.840.1.567594.10.4.1" /> <id nullFlavor="NA" /> <code codeSystem="local" code="UMIC" displayName="Urine Microscopic" /> < statusCode code="completed" /> <component> <observation moodCode= "EVN" classCode="OBS"> <templateId root="16.840.1.818358.08.03.22.4.2 " /> <id nullFlavor="NA" /> <code codeSystem="local" code= "UBAC" displayName="Bacteria" /> <statusCode code="completed" /> <effectiveTime value="404902011869" /> <value unit="NA" xsi:type= "PQ" value="Moderate" /> <interpretationCode codeSystem="local" code="* " /> <referenceRange> <observationRange> <text /> </observationRange> </referenceRange> </ observation> </component> <component> <observation moodCode= "EVN" classCode="OBS"> <templateId root="11.30.840.1.595134.22.4.2 " /> <id nullFlavor="NA" /> <code codeSystem="local" code= "UEPI" displayName="Epithelial Cells" /> <statusCode code="completed" / > <effectiveTime value="476307211035" /> <value unit="/HPF" xsi:type="PQ" value="10" /> <referenceRange> < observationRange> <text /> </observationRange> </referenceRange> </observation> </component> <component> <observation moodCode="EVN" classCode="OBS"> <templateId root= "11.30.840.1.383965.10.4.2" /> <id nullFlavor="NA" /> < code codeSystem="local" code="URBC" displayName="RBC, Urine" /> < statusCode code="completed" /> <effectiveTime value="516118087128" /> <value unit="/HPF" xsi:type="PQ" value="0" /> <referenceRange > <observationRange> <text>0-2</text> </ observationRange> </referenceRange> </observation> </ component> <component> <observation moodCode="EVN" classCode="OBS"> <templateId root="840.1.131484.08.03.22.4.2" /> <id nullFlavor="NA" /> <code codeSystem="local" code="UMUC" displayName= "Urine Mucus" /> <statusCode code="completed" /> < effectiveTime value="244981278487" /> <value unit="NA" xsi:type="PQ" value="Present" /> <referenceRange> <observationRange> <text /> </observationRange> </referenceRange> </observation> </component> <component> <observation moodCode="EVN" classCode="OBS"> <templateId root= "11.30.840.1.967874.10.4.2" /> <id nullFlavor="NA" /> < code codeSystem="local" code="UWBC" displayName="WBC, Urine" /> < statusCode code="completed" /> <effectiveTime value="843839638421" /> <value unit="/HPF" xsi:type="PQ" value="2" /> <referenceRange > <observationRange> <text>0-4</text> </ observationRange> </referenceRange> </observation> </ component> </organizer> </entry> <entry> <organizer moodCode="EVN" classCode="BATTERY"> <templateId root="11.30.840.1.241672.10...4.1" /> <id nullFlavor="NA" /> <code codeSystem="local" code="CBCWD" displayName="CBC With Platelet and Differential" /> <statusCode code= "completed" /> <component> <observation moodCode="EVN" classCode= "OBS"> <templateId root="11.30.840.1.020764..22.4.2" /> < id nullFlavor="NA" /> <code codeSystem="local" code="ABASR" displayName ="Absolute Basophils" /> <statusCode code="completed" /> < effectiveTime value="" /> <value unit="10*3/uL" xsi:type= "PQ" value="0.03" /> <referenceRange> <observationRange> <text>0.00-0.20</text> </observationRange> </ referenceRange> </observation> </component> <component> <observation moodCode="EVN" classCode="OBS"> <templateId root= "11.30.840.1.148312.10.22.4.2" /> <id nullFlavor="NA" /> < code codeSystem="local" code="AEOSR" displayName="Absolute Eosinophils" /> <statusCode code="completed" /> <effectiveTime value="896282237696 " /> <value unit="10*3/uL" xsi:type="PQ" value="0.26" /> < referenceRange> <observationRange> <text>0.00-0.50</text > </observationRange> </referenceRange> </observation > </component> <component> <observation moodCode="EVN" classCode="OBS"> <templateId root="216.840.1.097098.10...4.2" /> <id nullFlavor="NA" /> <code codeSystem="local" code="ALYMR" displayName="Absolute Lymphocytes" /> <statusCode code="completed" /> <effectiveTime value="608742993666" /> <value unit="10*3/uL" xsi:type="PQ" value="1.96" /> <referenceRange> < observationRange> <text>0.80-3.30</text> </ observationRange> </referenceRange> </observation> </ component> <component> <observation moodCode="EVN" classCode="OBS"> <templateId root="11.30.840.1.869152.08.03.22.4.2" /> <id nullFlavor="NA" /> <code codeSystem="local" code="AMONR" displayName= "Absolute Monocytes" /> <statusCode code="completed" /> < effectiveTime value="999170047676" /> <value unit="10*3/uL" xsi:type= "PQ" value="0.43" /> <referenceRange> <observationRange> <text>0.30-1.00</text> </observationRange> </ referenceRange> </observation> </component> <component> <observation moodCode="EVN" classCode="OBS"> <templateId root= "11.30.840.1.911907..20.4.2" /> <id nullFlavor="NA" /> < code codeSystem="local" code="ASEGR" displayName="Absolute Neutrophils" /> <statusCode code="completed" /> <effectiveTime value="107002441915 " /> <value unit="10*3/uL" xsi:type="PQ" value="3.42" /> < referenceRange> <observationRange> <text>1.90-7.00</text > </observationRange> </referenceRange> </observation > </component> <component> <observation moodCode="EVN" classCode="OBS"> <templateId root="11.30.840.1.592263.22.4.2" /> <id nullFlavor="NA" /> <code codeSystem="local" code="BASOR" displayName="Basophils" /> <statusCode code="completed" /> < effectiveTime value="970616052960" /> <value unit="%" xsi:type="PQ " value="1" /> <referenceRange> <observationRange> <text>0-2</text> </observationRange> </referenceRange> </observation> </component> <component> <observation moodCode="EVN" classCode="OBS"> <templateId root= "11.30.840.1.832717.10.4.2" /> <id nullFlavor="NA" /> < code codeSystem="local" code="EOSR" displayName="Eosinophils" /> < statusCode code="completed" /> <effectiveTime value="901929326433" /> <value unit="%" xsi:type="PQ" value="4" /> <referenceRange > <observationRange> <text>0-4</text> </ observationRange> </referenceRange> </observation> </ component> <component> <observation moodCode="EVN" classCode="OBS"> <templateId root="11.30.840.1.633309..22.4.2" /> <id nullFlavor="NA" /> <code codeSystem="local" code="HCT" displayName="HCT " /> <statusCode code="completed" /> <effectiveTime value= "786380726322" /> <value unit="%" xsi:type="PQ" value="36.8" /> <interpretationCode codeSystem="local" code="*" /> < referenceRange> <observationRange> <text>37.0-47.0</text > </observationRange> </referenceRange> </observation > </component> <component> <observation moodCode="EVN" classCode="OBS"> <templateId root="2.16.840.1.379242.10.22.4.2" /> <id nullFlavor="NA" /> <code codeSystem="local" code="HGB" displayName="HGB" /> <statusCode code="completed" /> < effectiveTime value="046616917127" /> <value unit="g/dL" xsi:type="PQ" value="11.7" /> <interpretationCode codeSystem="local" code="*" /> <referenceRange> <observationRange> <text>12.0- 16.0</text> </observationRange> </referenceRange> </ observation> </component> <component> <observation moodCode= "EVN" classCode="OBS"> <templateId root="2.16.840.1.752067.10.2022.4.2 " /> <id nullFlavor="NA" /> <code codeSystem="local" code= "IMGA" displayName="Immature Granulocytes" /> <statusCode code= "completed" /> <effectiveTime value="706598064595" /> <value unit="%" xsi:type="PQ" value="0.5" /> <referenceRange> < observationRange> <text>0.0-1.0</text> </ observationRange> </referenceRange> </observation> </ component> <component> <observation moodCode="EVN" classCode="OBS"> <templateId root="216.840.1.627730.10..4.2" /> <id nullFlavor="NA" /> <code codeSystem="local" code="LYMPR" displayName= "Lymphocytes" /> <statusCode code="completed" /> < effectiveTime value="" /> <value unit="%" xsi:type="PQ " value="32" /> <referenceRange> <observationRange> <text>20-46</text> </observationRange> </ referenceRange> </observation> </component> <component> <observation moodCode="EVN" classCode="OBS"> <templateId root= "11.30.840.1.629223.10.4.2" /> <id nullFlavor="NA" /> < code codeSystem="local" code="MCH" displayName="MCH" /> <statusCode code="completed" /> <effectiveTime value="" /> < value unit="pg" xsi:type="PQ" value="29.9" /> <referenceRange> <observationRange> <text>27.0-32.0</text> </ observationRange> </referenceRange> </observation> </ component> <component> <observation moodCode="EVN" classCode="OBS"> <templateId root="16.840.1.818634.10.22.4.2" /> <id nullFlavor="NA" /> <code codeSystem="local" code="MCHC" displayName= "MCHC" /> <statusCode code="completed" /> <effectiveTime value ="" /> <value unit="g/dL" xsi:type="PQ" value="31.8" /> <interpretationCode codeSystem="local" code="*" /> < referenceRange> <observationRange> <text>32.0-36.0</text > </observationRange> </referenceRange> </observation > </component> <component> <observation moodCode="EVN" classCode="OBS"> <templateId root="11.30.840.1.955979.10.22.4.2" /> <id nullFlavor="NA" /> <code codeSystem="local" code="MCV" displayName="MCV" /> <statusCode code="completed" /> < effectiveTime value="358304850776" /> <value unit="fL" xsi:type="PQ" value="94.1" /> <referenceRange> <observationRange> <text>82.0-99.0</text> </observationRange> </ referenceRange> </observation> </component> <component> <observation moodCode="EVN" classCode="OBS"> <templateId root= "11.30.840.1.394891.08.03.22.4.2" /> <id nullFlavor="NA" /> < code codeSystem="local" code="MONOR" displayName="Monocytes" /> < statusCode code="completed" /> <effectiveTime value="219076636563" /> <value unit="%" xsi:type="PQ" value="7" /> <referenceRange > <observationRange> <text>4-11</text> </ observationRange> </referenceRange> </observation> </ component> <component> <observation moodCode="EVN" classCode="OBS"> <templateId root="11.30.840.1.573593.10.22.4.2" /> <id nullFlavor="NA" /> <code codeSystem="local" code="MPV" displayName="MPV " /> <statusCode code="completed" /> <effectiveTime value= "002180990766" /> <value unit="fL" xsi:type="PQ" value="9.4" /> <referenceRange> <observationRange> <text>9.4-12.4</ text> </observationRange> </referenceRange> </ observation> </component> <component> <observation moodCode= "EVN" classCode="OBS"> <templateId root="11.30.840.1.840626.08.03.22.4.2 " /> <id nullFlavor="NA" /> <code codeSystem="local" code= "SEGR" displayName="Neutrophils" /> <statusCode code="completed" /> <effectiveTime value="176699281378" /> <value unit="%" xsi: type="PQ" value="56" /> <referenceRange> <observationRange> <text>51-75</text> </observationRange> </ referenceRange> </observation> </component> <component> <observation moodCode="EVN" classCode="OBS"> <templateId root= "11.30.840.1.720469.08.03.22.4.2" /> <id nullFlavor="NA" /> < code codeSystem="local" code="NRBCA" displayName="Nucleated RBC Automated" /> <statusCode code="completed" /> <effectiveTime value= "175281780854" /> <value unit="/100WBC" xsi:type="PQ" value="0.0" /> <referenceRange> <observationRange> <text /> </observationRange> </referenceRange> </observation> </component> <component> <observation moodCode="EVN" classCode= "OBS"> <templateId root="11.30.840.1.997904.08.03.22.4.2" /> < id nullFlavor="NA" /> <code codeSystem="local" code="PLT" displayName= "Platelet Count" /> <statusCode code="completed" /> < effectiveTime value="135101902934" /> <value unit="K/uL" xsi:type="PQ" value="290" /> <referenceRange> <observationRange> <text>150-400</text> </observationRange> </ referenceRange> </observation> </component> <component> <observation moodCode="EVN" classCode="OBS"> <templateId root= "2.16.840.1.868879.08.03.22.4.2" /> <id nullFlavor="NA" /> < code codeSystem="local" code="RBC" displayName="RBC" /> <statusCode code="completed" /> <effectiveTime value="425692431802" /> < value unit="10*6/uL" xsi:type="PQ" value="3.91" /> <interpretationCode codeSystem="local" code="*" /> <referenceRange> < observationRange> <text>4.00-5.20</text> </ observationRange> </referenceRange> </observation> </ component> <component> <observation moodCode="EVN" classCode="OBS"> <templateId root="2.16.840.1.477457.22.4.2" /> <id nullFlavor="NA" /> <code codeSystem="local" code="RDW" displayName="RDW " /> <statusCode code="completed" /> <effectiveTime value= "806115562806" /> <value unit="%" xsi:type="PQ" value="13.3" /> <referenceRange> <observationRange> <text>11.5- 14.5</text> </observationRange> </referenceRange> </ observation> </component> <component> <observation moodCode= "EVN" classCode="OBS"> <templateId root="2.16.840.1.356813.10..22.4.2 " /> <id nullFlavor="NA" /> <code codeSystem="local" code= "WBCIR" displayName="WBC" /> <statusCode code="completed" /> < effectiveTime value="038045944253" /> <value unit="K/uL" xsi:type="PQ" value="6.1" /> <referenceRange> <observationRange> <text>4.8-10.8</text> </observationRange> </ referenceRange> </observation> </component> </organizer> </entry > <entry> <organizer moodCode="EVN" classCode="BATTERY"> <templateId root="2.16.840.1.328586.10..22.4.1" /> <id nullFlavor="NA" /> <code codeSystem="local" code="BMP" displayName="Basic Metabolic Panel (BMP)" /> <statusCode code="completed" /> <component> <observation moodCode= "EVN" classCode="OBS"> <templateId root="2.16.840.1.062884.10..22.4.2 " /> <id nullFlavor="NA" /> <code codeSystem="local" code= "AGAP" displayName="Anion Gap" /> <statusCode code="completed" /> <effectiveTime value="972347387798" /> <value unit="mEq/L" xsi: type="PQ" value="8" /> <referenceRange> <observationRange> <text>3-20</text> </observationRange> </ referenceRange> </observation> </component> <component> <observation moodCode="EVN" classCode="OBS"> <templateId root= "16.840.1.814611.10.20.22.4.2" /> <id nullFlavor="NA" /> < code codeSystem="local" code="BUN" displayName="BUN" /> <statusCode code="completed" /> <effectiveTime value="196559422481" /> < value unit="mg/dL" xsi:type="PQ" value="12" /> <referenceRange> <observationRange> <text>4-20</text> </ observationRange> </referenceRange> </observation> </ component> <component> <observation moodCode="EVN" classCode="OBS"> <templateId root="11.30.840.1.218421..22.4.2" /> <id nullFlavor="NA" /> <code codeSystem="local" code="CA" displayName= "Calcium" /> <statusCode code="completed" /> <effectiveTime value="993170318699" /> <value unit="mg/dL" xsi:type="PQ" value="8.3" / > <interpretationCode codeSystem="local" code="*" /> < referenceRange> <observationRange> <text>8.6-10.0</text > </observationRange> </referenceRange> </observation > </component> <component> <observation moodCode="EVN" classCode="OBS"> <templateId root="11.30.840.1.689731.10.2022.4.2" /> <id nullFlavor="NA" /> <code codeSystem="local" code="CL" displayName="Chloride" /> <statusCode code="completed" /> < effectiveTime value="714985902256" /> <value unit="mEq/L" xsi:type="PQ " value="104" /> <referenceRange> <observationRange> <text>99-109</text> </observationRange> </ referenceRange> </observation> </component> <component> <observation moodCode="EVN" classCode="OBS"> <templateId root= "216.840.1.927139.10..4.2" /> <id nullFlavor="NA" /> < code codeSystem="local" code="CO2" displayName="CO2" /> <statusCode code="completed" /> <effectiveTime value="783064556086" /> < value unit="mEq/L" xsi:type="PQ" value="26" /> <referenceRange> <observationRange> <text>22-32</text> </ observationRange> </referenceRange> </observation> </ component> <component> <observation moodCode="EVN" classCode="OBS"> <templateId root="11.30.840.1.202642.08.03.22.4.2" /> <id nullFlavor="NA" /> <code codeSystem="local" code="CREAT" displayName= "Creatinine" /> <statusCode code="completed" /> < effectiveTime value="888343041801" /> <value unit="mg/dL" xsi:type="PQ " value="0.58" /> <referenceRange> <observationRange> <text>0.44-1.03</text> </observationRange> </ referenceRange> </observation> </component> <component> <observation moodCode="EVN" classCode="OBS"> <templateId root= "16.840.1.236482.10..4.2" /> <id nullFlavor="NA" /> < code codeSystem="local" code="GLU" displayName="Glucose" /> < statusCode code="completed" /> <effectiveTime value="920906766471" /> <value unit="mg/dL" xsi:type="PQ" value="67" /> < interpretationCode codeSystem="local" code="*" /> <referenceRange> <observationRange> <text>70-100</text> </ observationRange> </referenceRange> </observation> </ component> <component> <observation moodCode="EVN" classCode="OBS"> <templateId root="11.30.840.1.804039.10...4.2" /> <id nullFlavor="NA" /> <code codeSystem="local" code="K" displayName= "Potassium" /> <statusCode code="completed" /> <effectiveTime value="063750208060" /> <value unit="mEq/L" xsi:type="PQ" value="3.9" / > <referenceRange> <observationRange> <text>3.6 -5.1</text> </observationRange> </referenceRange> </ observation> </component> <component> <observation moodCode= "EVN" classCode="OBS"> <templateId root="11.30.840.1.828156.10..4.2 " /> <id nullFlavor="NA" /> <code codeSystem="local" code="NA " displayName="Sodium" /> <statusCode code="completed" /> < effectiveTime value="068589031151" /> <value unit="mEq/L" xsi:type="PQ " value="138" /> <referenceRange> <observationRange> <text>136-144</text> </observationRange> </ referenceRange> </observation> </component> </organizer> </entry > <entry> <organizer moodCode="EVN" classCode="BATTERY"> <templateId root="11.30.840.1.063459.10..22.4.1" /> <id nullFlavor="NA" /> <code codeSystem="local" code="GFR" displayName="eGFR" /> <statusCode code= "completed" /> <component> <observation moodCode="EVN" classCode= "OBS"> <templateId root="16.840.1.787784.10...4.2" /> < id nullFlavor="NA" /> <code codeSystem="local" code="GFR" displayName= "eGFR" /> <statusCode code="completed" /> <effectiveTime value ="258056372432" /> <value unit="mL/min" xsi:type="PQ" value=">60" / > <referenceRange> <observationRange> <text>&gt ;60</text> </observationRange> </referenceRange> </ observation> </component> </organizer> </entry> <entry> <organizer moodCode="EVN" classCode="BATTERY"> <templateId root= "11.30.840.1.854581.10..22.4.1" /> <id nullFlavor="NA" /> <code codeSystem="local" code="GLUN" displayName="Glucose NPT" /> <statusCode code="completed" /> <component> <observation moodCode="EVN" classCode="OBS"> <templateId root="11.30.840.1.429039.10..22.4.2" /> <id nullFlavor="NA" /> <code codeSystem="local" code="GLUN" displayName="Glucose NPT" /> <statusCode code="completed" /> <effectiveTime value="869090270230" /> <value unit="mg/dL" xsi:type="PQ " value="99" /> <referenceRange> <observationRange> <text>70-100</text> </observationRange> </ referenceRange> </observation> </component> </organizer> </entry > <entry> <organizer moodCode="EVN" classCode="BATTERY"> <templateId root="2.16.840.1.594841.10.20.22.4.1" /> <id nullFlavor="NA" /> <code codeSystem="local" code="69254-7" displayName="Complete blood count (CBC) with automated white blood cell (WBC) differential" /> <statusCode code= "completed" /> <component> <observation moodCode="EVN" classCode= "OBS"> <templateId root="2.16.840.1.439686.10.20.22.4.2" /> < id nullFlavor="NA" /> <code codeSystem="local" code="6690-2" displayName="Blood leukocytes automated count (number/volume)" /> < statusCode code="completed" /> <effectiveTime value="077688230897" /> <value unit="10*3/uL" xsi:type="PQ" value="9.1" /> < referenceRange> <observationRange> <text>4.3-11.0</text > </observationRange> </referenceRange> </observation > </component> <component> <observation moodCode="EVN" classCode="OBS"> <templateId root="2.16.840.1.580910.10..22.4.2" /> <id nullFlavor="NA" /> <code codeSystem="local" code="789-8" displayName="Blood erythrocytes automated count (number/volume)" /> < statusCode code="completed" /> <effectiveTime value="645189644918" /> <value unit="10*6/uL" xsi:type="PQ" value="4.56" /> < referenceRange> <observationRange> <text>4.35-5.85</text > </observationRange> </referenceRange> </observation > </component> <component> <observation moodCode="EVN" classCode="OBS"> <templateId root="2.16.840.1.740794.10.20.22.4.2" /> <id nullFlavor="NA" /> <code codeSystem="local" code="95834-7 " displayName="Venous blood hemoglobin measurement (mass/volume)" /> < statusCode code="completed" /> <effectiveTime value="940014149149" /> <value unit="g/dL" xsi:type="PQ" value="14.4" /> < referenceRange> <observationRange> <text>11.5-16.0</text > </observationRange> </referenceRange> </observation > </component> <component> <observation moodCode="EVN" classCode="OBS"> <templateId root="2.16.840.1.253367.10...4.2" /> <id nullFlavor="NA" /> <code codeSystem="local" code="99777-9 " displayName="Blood hematocrit (volume fraction)" /> <statusCode code= "completed" /> <effectiveTime value="699430195561" /> <value unit="%" xsi:type="PQ" value="40" /> <referenceRange> < observationRange> <text>35-52</text> </observationRange > </referenceRange> </observation> </component> < component> <observation moodCode="EVN" classCode="OBS"> < templateId root="2.16.840.1.755595.10..22.4.2" /> <id nullFlavor="NA " /> <code codeSystem="local" code="787-2" displayName="Automated erythrocyte mean corpuscular volume" /> <statusCode code="completed" / > <effectiveTime value="588711595835" /> <value unit="[foz_us] " xsi:type="PQ" value="88" /> <referenceRange> < observationRange> <text>80-99</text> </observationRange > </referenceRange> </observation> </component> < component> <observation moodCode="EVN" classCode="OBS"> < templateId root="2.16.840.1.109826.10.20.22.4.2" /> <id nullFlavor="NA " /> <code codeSystem="local" code="785-6" displayName="Automated erythrocyte mean corpuscular hemoglobin (mass per erythrocyte)" /> < statusCode code="completed" /> <effectiveTime value="211234257946" /> <value unit="pg" xsi:type="PQ" value="32" /> <referenceRange> <observationRange> <text>25-34</text> </ observationRange> </referenceRange> </observation> </ component> <component> <observation moodCode="EVN" classCode="OBS"> <templateId root="216.840.1.475858.10..22.4.2" /> <id nullFlavor="NA" /> <code codeSystem="local" code="786-4" displayName= "Automated erythrocyte mean corpuscular hemoglobin concentration measurement ( mass/volume)" /> <statusCode code="completed" /> < effectiveTime value="458351637278" /> <value unit="g/dL" xsi:type="PQ" value="36" /> <referenceRange> <observationRange> <text>32-36</text> </observationRange> </referenceRange > </observation> </component> <component> <observation moodCode="EVN" classCode="OBS"> <templateId root= "2.16.840.1.154546.10.20.22.4.2" /> <id nullFlavor="NA" /> < code codeSystem="local" code="788-0" displayName="Automated erythrocyte distribution width ratio" /> <statusCode code="completed" /> < effectiveTime value="171730560296" /> <value unit="%" xsi:type="PQ " value="14.4" /> <referenceRange> <observationRange> <text>10.0-14.5</text> </observationRange> </ referenceRange> </observation> </component> <component> <observation moodCode="EVN" classCode="OBS"> <templateId root= "2.16.840.1.901623.10...4.2" /> <id nullFlavor="NA" /> < code codeSystem="local" code="777-3" displayName="Automated blood platelet count (count/volume)" /> <statusCode code="completed" /> < effectiveTime value="947781064735" /> <value unit="10*3/uL" xsi:type= "PQ" value="279" /> <referenceRange> <observationRange> <text>130-400</text> </observationRange> </ referenceRange> </observation> </component> <component> <observation moodCode="EVN" classCode="OBS"> <templateId root= "2.16.840.1.069131...22.4.2" /> <id nullFlavor="NA" /> < code codeSystem="local" code="87935-7" displayName="Automated blood platelet mean volume measurement" /> <statusCode code="completed" /> < effectiveTime value="895688318447" /> <value unit="[foz_us]" xsi:type= "PQ" value="10.0" /> <referenceRange> <observationRange> <text>7.4-10.4</text> </observationRange> </ referenceRange> </observation> </component> <component> <observation moodCode="EVN" classCode="OBS"> <templateId root= "2.16.840.1.526950.10.20.22.4.2" /> <id nullFlavor="NA" /> < code codeSystem="local" code="770-8" displayName="Automated blood neutrophils/ 100 leukocytes" /> <statusCode code="completed" /> < effectiveTime value="955674272422" /> <value unit="%" xsi:type="PQ " value="58" /> <referenceRange> <observationRange> <text>42-75</text> </observationRange> </ referenceRange> </observation> </component> <component> <observation moodCode="EVN" classCode="OBS"> <templateId root= "2.16.840.1.570037.10...4.2" /> <id nullFlavor="NA" /> < code codeSystem="local" code="736-9" displayName="Automated blood lymphocytes/ 100 leukocytes" /> <statusCode code="completed" /> < effectiveTime value="793389025089" /> <value unit="%" xsi:type="PQ " value="27" /> <referenceRange> <observationRange> <text>12-44</text> </observationRange> </ referenceRange> </observation> </component> <component> <observation moodCode="EVN" classCode="OBS"> <templateId root= "2.16.840.1.458186.10.20.22.4.2" /> <id nullFlavor="NA" /> < code codeSystem="local" code="69492-3" displayName="Blood monocytes/100 leukocytes" /> <statusCode code="completed" /> <effectiveTime value="334318183368" /> <value unit="%" xsi:type="PQ" value="7" /> <referenceRange> <observationRange> <text>0-12 </text> </observationRange> </referenceRange> </ observation> </component> <component> <observation moodCode= "EVN" classCode="OBS"> <templateId root="2.16.840.1.476711.10.20.22.4.2 " /> <id nullFlavor="NA" /> <code codeSystem="local" code="713 -8" displayName="Automated blood eosinophils/100 leukocytes" /> < statusCode code="completed" /> <effectiveTime value="557094125608" /> <value unit="%" xsi:type="PQ" value="8" /> <referenceRange > <observationRange> <text>0-10</text> </ observationRange> </referenceRange> </observation> </ component> <component> <observation moodCode="EVN" classCode="OBS"> <templateId root="216.840.1.231172.10.20.22.4.2" /> <id nullFlavor="NA" /> <code codeSystem="local" code="706-2" displayName= "Automated blood basophils/100 leukocytes" /> <statusCode code= "completed" /> <effectiveTime value="052811697953" /> <value unit="%" xsi:type="PQ" value="1" /> <referenceRange> < observationRange> <text>0-10</text> </observationRange> </referenceRange> </observation> </component> < component> <observation moodCode="EVN" classCode="OBS"> < templateId root="2.16.840.1.019653.10.20.22.4.2" /> <id nullFlavor="NA " /> <code codeSystem="local" code="751-8" displayName="Blood neutrophils automated count (number/volume)" /> <statusCode code= "completed" /> <effectiveTime value="631855109408" /> <value unit="10*3" xsi:type="PQ" value="5.3" /> <referenceRange> < observationRange> <text>1.8-7.8</text> </ observationRange> </referenceRange> </observation> </ component> <component> <observation moodCode="EVN" classCode="OBS"> <templateId root="2.16.840.1.836741.10.20.22.4.2" /> <id nullFlavor="NA" /> <code codeSystem="local" code="731-0" displayName= "Blood lymphocytes automated count (number/volume)" /> <statusCode code ="completed" /> <effectiveTime value="897937986455" /> <value unit="10*3" xsi:type="PQ" value="2.4" /> <referenceRange> < observationRange> <text>1.0-4.0</text> </ observationRange> </referenceRange> </observation> </ component> <component> <observation moodCode="EVN" classCode="OBS"> <templateId root="2.16.840.1.170955.10.20.22.4.2" /> <id nullFlavor="NA" /> <code codeSystem="local" code="742-7" displayName= "Blood monocytes automated count (number/volume)" /> <statusCode code= "completed" /> <effectiveTime value="787316544374" /> <value unit="10*3" xsi:type="PQ" value="0.7" /> <referenceRange> < observationRange> <text>0.0-1.0</text> </ observationRange> </referenceRange> </observation> </ component> <component> <observation moodCode="EVN" classCode="OBS"> <templateId root="2.16.840.1.350914.10..22.4.2" /> <id nullFlavor="NA" /> <code codeSystem="local" code="711-2" displayName= "Automated eosinophil count" /> <statusCode code="completed" /> <effectiveTime value="615827936556" /> <value unit="10*3/uL" xsi: type="PQ" value="0.7" /> <interpretationCode codeSystem="local" code="* *" /> <referenceRange> <observationRange> <text >0.0-0.3</text> </observationRange> </referenceRange> </observation> </component> <component> <observation moodCode ="EVN" classCode="OBS"> <templateId root= "216.840.1.901885.08.03.22.4.2" /> <id nullFlavor="NA" /> < code codeSystem="local" code="704-7" displayName="Automated blood basophil count (count/volume)" /> <statusCode code="completed" /> < effectiveTime value="595702731659" /> <value unit="10*3/uL" xsi:type= "PQ" value="0.1" /> <referenceRange> <observationRange> <text>0.0-0.1</text> </observationRange> </ referenceRange> </observation> </component> </organizer> </entry > <entry> <organizer moodCode="EVN" classCode="BATTERY"> <templateId root="2.16.840.1.459354.10..4.1" /> <id nullFlavor="NA" /> <code codeSystem="local" code="89753-0" displayName="Comprehensive metabolic panel" / > <statusCode code="completed" /> <component> <observation moodCode="EVN" classCode="OBS"> <templateId root= "2.16.840.1.314102.10.20.22.4.2" /> <id nullFlavor="NA" /> < code codeSystem="local" code="2951-2" displayName="Serum or plasma sodium measurement (moles/volume)" /> <statusCode code="completed" /> <effectiveTime value="326802241094" /> <value unit="mmol/L" xsi:type= "PQ" value="139" /> <referenceRange> <observationRange> <text>135-145</text> </observationRange> </ referenceRange> </observation> </component> <component> <observation moodCode="EVN" classCode="OBS"> <templateId root= "2.16.840.1.376750.10..22.4.2" /> <id nullFlavor="NA" /> < code codeSystem="local" code="2823-3" displayName="Serum or plasma potassium measurement (moles/volume)" /> <statusCode code="completed" /> <effectiveTime value="512348711105" /> <value unit="mmol/L" xsi:type= "PQ" value="3.9" /> <referenceRange> <observationRange> <text>3.6-5.0</text> </observationRange> </ referenceRange> </observation> </component> <component> <observation moodCode="EVN" classCode="OBS"> <templateId root= "2.16.840.1.524693.10..22.4.2" /> <id nullFlavor="NA" /> < code codeSystem="local" code="2075-0" displayName="Serum or plasma chloride measurement (moles/volume)" /> <statusCode code="completed" /> <effectiveTime value="099240169892" /> <value unit="mmol/L" xsi:type= "PQ" value="108" /> <interpretationCode codeSystem="local" code="" / > <referenceRange> <observationRange> <text>98- 107</text> </observationRange> </referenceRange> </ observation> </component> <component> <observation moodCode= "EVN" classCode="OBS"> <templateId root="216.840.1.577073.10.20.22.4.2 " /> <id nullFlavor="NA" /> <code codeSystem="local" code= "2028-06" displayName="Carbon dioxide" /> <statusCode code="completed" / > <effectiveTime value="060813241039" /> <value unit="mmol/L" xsi:type="PQ" value="17" /> <interpretationCode codeSystem="local" code ="" /> <referenceRange> <observationRange> < text>21-32</text> </observationRange> </referenceRange> </observation> </component> <component> <observation moodCode="EVN" classCode="OBS"> <templateId root= "16.840.1.878941.10.20.22.4.2" /> <id nullFlavor="NA" /> < code codeSystem="local" code="71620-2" displayName="Serum or plasma anion gap determination (moles/volume)" /> <statusCode code="completed" /> <effectiveTime value="770295477626" /> <value unit="mmol/L" xsi: type="PQ" value="14" /> <referenceRange> <observationRange> <text>5-14</text> </observationRange> </ referenceRange> </observation> </component> <component> <observation moodCode="EVN" classCode="OBS"> <templateId root= "840.1.772987.10.20.22.4.2" /> <id nullFlavor="NA" /> < code codeSystem="local" code="3094-0" displayName="Serum or plasma urea nitrogen measurement (mass/volume)" /> <statusCode code="completed" /> <effectiveTime value="759633808195" /> <value unit="mg/dL" xsi:type="PQ" value="10" /> <referenceRange> < observationRange> <text>7-18</text> </observationRange> </referenceRange> </observation> </component> < component> <observation moodCode="EVN" classCode="OBS"> < templateId root="216.840.1.771770.10..22.4.2" /> <id nullFlavor="NA " /> <code codeSystem="local" code="2160-0" displayName="Serum or plasma creatinine measurement (mass/volume)" /> <statusCode code= "completed" /> <effectiveTime value="953057440150" /> <value unit="mg/dL" xsi:type="PQ" value="0.72" /> <referenceRange> <observationRange> <text>0.60-1.30</text> </ observationRange> </referenceRange> </observation> </ component> <component> <observation moodCode="EVN" classCode="OBS"> <templateId root="2.16.840.1.009098.10.20.22.4.2" /> <id nullFlavor="NA" /> <code codeSystem="local" code="3097-3" displayName= "Serum or plasma urea nitrogen/creatinine mass ratio" /> <statusCode code="completed" /> <effectiveTime value="908717830674" /> < value unit="" xsi:type="PQ" value="14" /> <referenceRange> < observationRange> <text>NRG</text> </observationRange> </referenceRange> </observation> </component> < component> <observation moodCode="EVN" classCode="OBS"> < templateId root="216.840.1.448038.10.20.22.4.2" /> <id nullFlavor="NA " /> <code codeSystem="local" code="15470-0" displayName="Serum or plasma creatinine measurement with calculation of estimated glomerular filtration rate" /> <statusCode code="completed" /> < effectiveTime value="339591470554" /> <value unit="" xsi:type="PQ" value=">" /> <referenceRange> <observationRange> <text>NRG</text> </observationRange> </referenceRange > </observation> </component> <component> <observation moodCode="EVN" classCode="OBS"> <templateId root= "16.840.1.967326.10.20.22.4.2" /> <id nullFlavor="NA" /> < code codeSystem="local" code="2345-7" displayName="Serum or plasma glucose measurement (mass/volume)" /> <statusCode code="completed" /> <effectiveTime value="028780820794" /> <value unit="mg/dL" xsi:type="PQ " value="68" /> <interpretationCode codeSystem="local" code="" /> <referenceRange> <observationRange> <text>70-105< /text> </observationRange> </referenceRange> </ observation> </component> <component> <observation moodCode= "EVN" classCode="OBS"> <templateId root="216.840.1.353193.10.20.22.4.2 " /> <id nullFlavor="NA" /> <code codeSystem="local" code= "53492-5" displayName="Serum or plasma calcium measurement (mass/volume)" /> <statusCode code="completed" /> <effectiveTime value= "206968585247" /> <value unit="mg/dL" xsi:type="PQ" value="9.3" /> <referenceRange> <observationRange> <text>8.5-10.1 </text> </observationRange> </referenceRange> </ observation> </component> <component> <observation moodCode= "EVN" classCode="OBS"> <templateId root="2.16.840.1.730491.10.20.22.4.2 " /> <id nullFlavor="NA" /> <code codeSystem="local" code= "1974-11" displayName="Serum or plasma total bilirubin measurement (mass/volume) " /> <statusCode code="completed" /> <effectiveTime value= "349961342775" /> <value unit="mg/dL" xsi:type="PQ" value="0.3" /> <referenceRange> <observationRange> <text>0.1-1.0< /text> </observationRange> </referenceRange> </ observation> </component> <component> <observation moodCode= "EVN" classCode="OBS"> <templateId root="2.16.840.1.528965.10.20.22.4.2 " /> <id nullFlavor="NA" /> <code codeSystem="local" code= "6768-6" displayName="Serum or plasma alkaline phosphatase measurement ( enzymatic activity/volume)" /> <statusCode code="completed" /> <effectiveTime value="498379547450" /> <value unit="U/L" xsi:type="PQ " value="74" /> <referenceRange> <observationRange> <text>40-136</text> </observationRange> </ referenceRange> </observation> </component> <component> <observation moodCode="EVN" classCode="OBS"> <templateId root= "2.16.840.1.680943.10.20.22.4.2" /> <id nullFlavor="NA" /> < code codeSystem="local" code="1920-05" displayName="Serum or plasma aspartate aminotransferase measurement (enzymatic activity/volume)" /> < statusCode code="completed" /> <effectiveTime value="893679924791" /> <value unit="U/L" xsi:type="PQ" value="14" /> <referenceRange > <observationRange> <text>5-34</text> </ observationRange> </referenceRange> </observation> </ component> <component> <observation moodCode="EVN" classCode="OBS"> <templateId root="2.16.840.1.694209.10..22.4.2" /> <id nullFlavor="NA" /> <code codeSystem="local" code="17426" displayName= "Serum or plasma alanine aminotransferase measurement (enzymatic activity/volume )" /> <statusCode code="completed" /> <effectiveTime value= "627319883652" /> <value unit="U/L" xsi:type="PQ" value="12" /> <referenceRange> <observationRange> <text>0-55</text > </observationRange> </referenceRange> </observation > </component> <component> <observation moodCode="EVN" classCode="OBS"> <templateId root="2.16.840.1.553909.10.20.22.4.2" /> <id nullFlavor="NA" /> <code codeSystem="local" code="2885-2" displayName="Serum or plasma protein measurement (mass/volume)" /> < statusCode code="completed" /> <effectiveTime value="107736858142" /> <value unit="g/dL" xsi:type="PQ" value="7.2" /> < referenceRange> <observationRange> <text>6.4-8.2</text> </observationRange> </referenceRange> </observation > </component> <component> <observation moodCode="EVN" classCode="OBS"> <templateId root="2.16.840.1.030380.10.22.4.2" /> <id nullFlavor="NA" /> <code codeSystem="local" code="17510-21" displayName="Serum or plasma albumin measurement (mass/volume)" /> < statusCode code="completed" /> <effectiveTime value="798383643331" /> <value unit="g/dL" xsi:type="PQ" value="4.3" /> < referenceRange> <observationRange> <text>3.2-4.5</text> </observationRange> </referenceRange> </observation > </component> </organizer> </entry> <entry> <organizer moodCode= "EVN" classCode="BATTERY"> <templateId root="2.16.840.1.529723.10..4.1 " /> <id nullFlavor="NA" /> <code codeSystem="local" code="4024-6" displayName="Serum or plasma salicylates measurement (mass/volume)" /> < statusCode code="completed" /> <component> <observation moodCode= "EVN" classCode="OBS"> <templateId root="2.16.840.1.098244.10..22.4.2 " /> <id nullFlavor="NA" /> <code codeSystem="local" code= "4024-6" displayName="Serum or plasma salicylates measurement (mass/volume)" /> <statusCode code="completed" /> <effectiveTime value= "565920797866" /> <value unit="mg/dL" xsi:type="PQ" value="<" /> <interpretationCode codeSystem="local" code="" /> < referenceRange> <observationRange> <text>5.0-20.0</text > </observationRange> </referenceRange> </observation > </component> </organizer> </entry> <entry> <organizer moodCode= "EVN" classCode="BATTERY"> <templateId root="2.16.840.1.364158.10..22.4.1 " /> <id nullFlavor="NA" /> <code codeSystem="local" code="3298-7" displayName="Serum or plasma acetaminophen measurement (mass/volume)" /> < statusCode code="completed" /> <component> <observation moodCode= "EVN" classCode="OBS"> <templateId root="2.16.840.1.826321.10..22.4.2 " /> <id nullFlavor="NA" /> <code codeSystem="local" code= "3298-7" displayName="Serum or plasma acetaminophen measurement (mass/volume)" / > <statusCode code="completed" /> <effectiveTime value= "017977050388" /> <value unit="ug/mL" xsi:type="PQ" value="<" /> <interpretationCode codeSystem="local" code="" /> < referenceRange> <observationRange> <text>10-30</text> </observationRange> </referenceRange> </observation> </component> </organizer> </entry> <entry> <organizer moodCode="EVN " classCode="BATTERY"> <templateId root="2.16.840.1.481414.10.20.22.4.1" / > <id nullFlavor="NA" /> <code codeSystem="local" code="5643-2" displayName="Serum or plasma ethanol measurement (mass/volume)" /> < statusCode code="completed" /> <component> <observation moodCode= "EVN" classCode="OBS"> <templateId root="2.16.840.1.081224.10.20.22.4.2 " /> <id nullFlavor="NA" /> <code codeSystem="local" code= "5643-2" displayName="Serum or plasma ethanol measurement (mass/volume)" /> <statusCode code="completed" /> <effectiveTime value= "027755131252" /> <value unit="mg/dL" xsi:type="PQ" value="<" /> <referenceRange> <observationRange> <text><10< /text> </observationRange> </referenceRange> </ observation> </component> </organizer> </entry> <entry> <organizer moodCode="EVN" classCode="BATTERY"> <templateId root= "2.16.840.1.678392.10.20.22.4.1" /> <id nullFlavor="NA" /> <code codeSystem="local" code="59327-3" displayName="Serum or plasma thyrotropin measurement by detection limit <=0.05 miu/l (units/volume)" /> < statusCode code="completed" /> <component> <observation moodCode= "EVN" classCode="OBS"> <templateId root="2.16.840.1.889161.10.20.22.4.2 " /> <id nullFlavor="NA" /> <code codeSystem="local" code= "84022-7" displayName="Serum or plasma thyrotropin measurement by detection limit <=0.05 miu/l (units/volume)" /> <statusCode code="completed" / > <effectiveTime value="544097826742" /> <value unit="u[iU]/mL " xsi:type="PQ" value="1.91" /> <referenceRange> < observationRange> <text>0.35-4.94</text> </ observationRange> </referenceRange> </observation> </ component> </organizer> </entry> <entry> <organizer moodCode="EVN" classCode="BATTERY"> <templateId root="11.30.840.1.494174.10.20.22.4.1" /> <id nullFlavor="NA" /> <code codeSystem="local" code="21393-7" displayName="Complete urinalysis with reflex to culture" /> <statusCode code="completed" /> <component> <observation moodCode="EVN" classCode="OBS"> <templateId root="11.30.840.1.610045.10..22.4.2" /> <id nullFlavor="NA" /> <code codeSystem="local" code="5778-6" displayName="Urine color determination" /> <statusCode code="completed " /> <effectiveTime value="820994828299" /> <value unit="" xsi :type="PQ" value="YELLOW" /> <referenceRange> < observationRange> <text>NRG</text> </observationRange> </referenceRange> </observation> </component> < component> <observation moodCode="EVN" classCode="OBS"> < templateId root="11.30.840.1.645487.10.20.22.4.2" /> <id nullFlavor="NA " /> <code codeSystem="local" code="63930-3" displayName="Urine clarity determination" /> <statusCode code="completed" /> < effectiveTime value="925480293838" /> <value unit="" xsi:type="PQ" value="SLIGHTLY CLOUDY" /> <referenceRange> < observationRange> <text>NRG</text> </observationRange> </referenceRange> </observation> </component> < component> <observation moodCode="EVN" classCode="OBS"> < templateId root="216.840.1.136589.10.20.4.2" /> <id nullFlavor="NA " /> <code codeSystem="local" code="5803-2" displayName="Urine pH measurement by test strip" /> <statusCode code="completed" /> <effectiveTime value="982388013297" /> <value unit="" xsi:type="PQ" value="6" /> <referenceRange> <observationRange> <text>5-9</text> </observationRange> </referenceRange> </observation> </component> <component> <observation moodCode="EVN" classCode="OBS"> <templateId root= "11.30.840.1.641209.08.03.22.4.2" /> <id nullFlavor="NA" /> < code codeSystem="local" code="5811-5" displayName="Specific gravity of urine by test strip" /> <statusCode code="completed" /> <effectiveTime value="750961754019" /> <value unit="" xsi:type="PQ" value="1.010" /> <interpretationCode codeSystem="local" code="" /> < referenceRange> <observationRange> <text>1.016-1.022</ text> </observationRange> </referenceRange> </ observation> </component> <component> <observation moodCode= "EVN" classCode="OBS"> <templateId root="11.30.840.1.581548..20.4.2 " /> <id nullFlavor="NA" /> <code codeSystem="local" code= "55818-5" displayName="Urine protein assay by test strip, semi-quantitative" /> <statusCode code="completed" /> <effectiveTime value= "315914884422" /> <value unit="" xsi:type="PQ" value="NEGATIVE" /> <referenceRange> <observationRange> <text>NEGATIVE </text> </observationRange> </referenceRange> </ observation> </component> <component> <observation moodCode= "EVN" classCode="OBS"> <templateId root="216.840.1.017344.10..4.2 " /> <id nullFlavor="NA" /> <code codeSystem="local" code= "73250-8" displayName="Urine glucose detection by automated test strip" /> <statusCode code="completed" /> <effectiveTime value="981879127837 " /> <value unit="" xsi:type="PQ" value="NEGATIVE" /> < referenceRange> <observationRange> <text>NEGATIVE</text > </observationRange> </referenceRange> </observation > </component> <component> <observation moodCode="EVN" classCode="OBS"> <templateId root="11.30.840.1.028132.10.4.2" /> <id nullFlavor="NA" /> <code codeSystem="local" code="18164-8 " displayName="Erythrocytes detection in urine sediment by light microscopy" /> <statusCode code="completed" /> <effectiveTime value= "940639220318" /> <value unit="" xsi:type="PQ" value="NEGATIVE" /> <referenceRange> <observationRange> <text>NEGATIVE </text> </observationRange> </referenceRange> </ observation> </component> <component> <observation moodCode= "EVN" classCode="OBS"> <templateId root="16.840.1.823001.10.2022.4.2 " /> <id nullFlavor="NA" /> <code codeSystem="local" code= "09327-3" displayName="Urine ketones detection by automated test strip" /> <statusCode code="completed" /> <effectiveTime value=" " /> <value unit="" xsi:type="PQ" value="NEGATIVE" /> < referenceRange> <observationRange> <text>NEGATIVE</text > </observationRange> </referenceRange> </observation > </component> <component> <observation moodCode="EVN" classCode="OBS"> <templateId root="216.840.1.474413.10.20.22.4.2" /> <id nullFlavor="NA" /> <code codeSystem="local" code="5802-4" displayName="Urine nitrite detection by test strip" /> <statusCode code ="completed" /> <effectiveTime value="" /> <value unit="" xsi:type="PQ" value="NEGATIVE" /> <referenceRange> < observationRange> <text>NEGATIVE</text> </ observationRange> </referenceRange> </observation> </ component> <component> <observation moodCode="EVN" classCode="OBS"> <templateId root="216.840.1.400971.10.20.22.4.2" /> <id nullFlavor="NA" /> <code codeSystem="local" code="5770-3" displayName= "Urine total bilirubin detection by test strip" /> <statusCode code= "completed" /> <effectiveTime value="949728669236" /> <value unit="" xsi:type="PQ" value="NEGATIVE" /> <referenceRange> < observationRange> <text>NEGATIVE</text> </ observationRange> </referenceRange> </observation> </ component> <component> <observation moodCode="EVN" classCode="OBS"> <templateId root="11.30.840.1.900416.10.20.22.4.2" /> <id nullFlavor="NA" /> <code codeSystem="local" code="44217-7" displayName= "Urine urobilinogen measurement by automated test strip (mass/volume)" /> <statusCode code="completed" /> <effectiveTime value=" " /> <value unit="" xsi:type="PQ" value="NORMAL" /> < referenceRange> <observationRange> <text>NORMAL</text> </observationRange> </referenceRange> </observation> </component> <component> <observation moodCode="EVN" classCode ="OBS"> <templateId root="16.840.1.000931.10.2022.4.2" /> < id nullFlavor="NA" /> <code codeSystem="local" code="5799-2" displayName="Urine leukocyte esterase detection by dipstick" /> < statusCode code="completed" /> <effectiveTime value="512116310400" /> <value unit="" xsi:type="PQ" value="3+" /> < interpretationCode codeSystem="local" code="*" /> <referenceRange> <observationRange> <text>NEGATIVE</text> </ observationRange> </referenceRange> </observation> </ component> <component> <observation moodCode="EVN" classCode="OBS"> <templateId root="16.840.1.691524.10.20.22.4.2" /> <id nullFlavor="NA" /> <code codeSystem="local" code="87559-0" displayName= "Automated urine sediment erythrocyte count by microscopy (number/high power field)" /> <statusCode code="completed" /> <effectiveTime value="493700894462" /> <value unit="" xsi:type="PQ" value="NONE" /> <referenceRange> <observationRange> <text>NRG</ text> </observationRange> </referenceRange> </ observation> </component> <component> <observation moodCode= "EVN" classCode="OBS"> <templateId root="216.840.1.512856.10.20.22.4.2 " /> <id nullFlavor="NA" /> <code codeSystem="local" code= "5821-4" displayName="Automated urine sediment leukocyte count by microscopy ( number/high power field)" /> <statusCode code="completed" /> < effectiveTime value="209008640371" /> <value unit="[HPF]" xsi:type="PQ " value="" /> <interpretationCode codeSystem="local" code="*" /> <referenceRange> <observationRange> <text>NRG</text > </observationRange> </referenceRange> </observation > </component> <component> <observation moodCode="EVN" classCode="OBS"> <templateId root="11.30.840.1.381077.10.22.4.2" /> <id nullFlavor="NA" /> <code codeSystem="local" code="84471-5 " displayName="Bacteria detection in urine sediment by light microscopy" /> <statusCode code="completed" /> <effectiveTime value= "402324705290" /> <value unit="" xsi:type="PQ" value="TRACE" /> <referenceRange> <observationRange> <text>NRG</text> </observationRange> </referenceRange> </observation > </component> <component> <observation moodCode="EVN" classCode="OBS"> <templateId root="16.840.1.889545.10.2022.4.2" /> <id nullFlavor="NA" /> <code codeSystem="local" code="76913-4 " displayName="Squamous epithelial cells detection in urine sediment by light microscopy" /> <statusCode code="completed" /> <effectiveTime value="401276606293" /> <value unit="" xsi:type="PQ" value="-" /> <interpretationCode codeSystem="local" code="*" /> < referenceRange> <observationRange> <text>NRG</text> </observationRange> </referenceRange> </observation> </component> <component> <observation moodCode="EVN" classCode= "OBS"> <templateId root="2.16.840.1.339397.10..22.4.2" /> < id nullFlavor="NA" /> <code codeSystem="local" code="35574-0" displayName="Crystals detection in urine sediment by light microscopy" /> <statusCode code="completed" /> <effectiveTime value="048514244905 " /> <value unit="" xsi:type="PQ" value="NONE" /> < referenceRange> <observationRange> <text>NRG</text> </observationRange> </referenceRange> </observation> </component> <component> <observation moodCode="EVN" classCode= "OBS"> <templateId root="2.16.840.1.523288.10.20.22.4.2" /> < id nullFlavor="NA" /> <code codeSystem="local" code="78639-1" displayName="Casts detection in urine sediment by light microscopy" /> <statusCode code="completed" /> <effectiveTime value="573721527951" /> <value unit="" xsi:type="PQ" value="NONE" /> <referenceRange > <observationRange> <text>NRG</text> </ observationRange> </referenceRange> </observation> </ component> <component> <observation moodCode="EVN" classCode="OBS"> <templateId root="16.840.1.088532.10.20.22.4.2" /> <id nullFlavor="NA" /> <code codeSystem="local" code="8247-9" displayName= "Mucus detection in urine sediment by light microscopy" /> <statusCode code="completed" /> <effectiveTime value="" /> < value unit="" xsi:type="PQ" value="NEGATIVE" /> <referenceRange> <observationRange> <text>NRG</text> </ observationRange> </referenceRange> </observation> </ component> <component> <observation moodCode="EVN" classCode="OBS"> <templateId root="11.30.840.1.727054.10.20.22.4.2" /> <id nullFlavor="NA" /> <code codeSystem="local" code="30928-5" displayName= "Complete urinalysis with reflex to culture" /> <statusCode code= "completed" /> <effectiveTime value="" /> <value unit="" xsi:type="PQ" value="YES" /> <referenceRange> < observationRange> <text>NRG</text> </observationRange> </referenceRange> </observation> </component> < component> <observation moodCode="EVN" classCode="OBS"> < templateId root="11.30.840.1.403663.10.20.22.4.2" /> <id nullFlavor="NA " /> <code codeSystem="local" code="45099-7" displayName="Urine Trichomonas species detection by light microscopy" /> <statusCode code= "completed" /> <effectiveTime value="" /> <value unit="" xsi:type="PQ" value="FEW" /> <interpretationCode codeSystem= "local" code="*" /> <referenceRange> <observationRange> <text>NRG</text> </observationRange> </ referenceRange> </observation> </component> </organizer> </entry > <entry> <organizer moodCode="EVN" classCode="BATTERY"> <templateId root="216.840.1.270258.10.20.22.4.1" /> <id nullFlavor="NA" /> <code codeSystem="local" code="2114-04" displayName="Urine beta human chorionic gonadotropin (hCG) measurement" /> <statusCode code="completed" /> < component> <observation moodCode="EVN" classCode="OBS"> < templateId root="11.30.840.1.804420.10..22.4.2" /> <id nullFlavor="NA " /> <code codeSystem="local" code="2114-04" displayName="Urine beta human chorionic gonadotropin (hCG) measurement" /> <statusCode code= "completed" /> <effectiveTime value="823957814138" /> <value unit="" xsi:type="PQ" value="NEGATIVE" /> <referenceRange> < observationRange> <text>NEGATIVE</text> </ observationRange> </referenceRange> </observation> </ component> </organizer> </entry> <entry> <organizer moodCode="EVN" classCode="BATTERY"> <templateId root="11.30.840.1.370005.10..22.4.1" /> <id nullFlavor="NA" /> <code codeSystem="local" code="90128-1" displayName="Urine drug screening test" /> <statusCode code="completed" /> <component> <observation moodCode="EVN" classCode="OBS"> < templateId root="16.840.1.764405.10..22.4.2" /> <id nullFlavor="NA " /> <code codeSystem="local" code="65075-6" displayName="Urine phencyclidine detection by screening method" /> <statusCode code= "completed" /> <effectiveTime value="304753023457" /> <value unit="" xsi:type="PQ" value="NEGATIVE" /> <referenceRange> < observationRange> <text>NEGATIVE</text> </ observationRange> </referenceRange> </observation> </ component> <component> <observation moodCode="EVN" classCode="OBS"> <templateId root="16.840.1.841911.10.20.22.4.2" /> <id nullFlavor="NA" /> <code codeSystem="local" code="69240-3" displayName= "Urine benzodiazepines detection by screening method" /> <statusCode code="completed" /> <effectiveTime value="628845519822" /> < value unit="" xsi:type="PQ" value="NEGATIVE" /> <referenceRange> <observationRange> <text>NEGATIVE</text> </ observationRange> </referenceRange> </observation> </ component> <component> <observation moodCode="EVN" classCode="OBS"> <templateId root="16.840.1.812247.10.20.22.4.2" /> <id nullFlavor="NA" /> <code codeSystem="local" code="3397-7" displayName= "Urine cocaine detection" /> <statusCode code="completed" /> < effectiveTime value="010986958131" /> <value unit="" xsi:type="PQ" value="NEGATIVE" /> <referenceRange> <observationRange> <text>NEGATIVE</text> </observationRange> </ referenceRange> </observation> </component> <component> <observation moodCode="EVN" classCode="OBS"> <templateId root= "840.1.944058.10..22.4.2" /> <id nullFlavor="NA" /> < code codeSystem="local" code="09948-2" displayName="Urine amphetamines detection by screening method" /> <statusCode code="completed" /> <effectiveTime value="156721467069" /> <value unit="" xsi:type="PQ " value="NEGATIVE" /> <referenceRange> <observationRange> <text>NEGATIVE</text> </observationRange> </ referenceRange> </observation> </component> <component> <observation moodCode="EVN" classCode="OBS"> <templateId root= "2.16.840.1.286920.10.22.4.2" /> <id nullFlavor="NA" /> < code codeSystem="local" code="33535-4" displayName="Urine methamphetamine detection by screening method" /> <statusCode code="completed" /> <effectiveTime value="664955600445" /> <value unit="" xsi:type="PQ " value="NEGATIVE" /> <referenceRange> <observationRange> <text>NEGATIVE</text> </observationRange> </ referenceRange> </observation> </component> <component> <observation moodCode="EVN" classCode="OBS"> <templateId root= "216.840.1.439116.10.22.4.2" /> <id nullFlavor="NA" /> < code codeSystem="local" code="61855-3" displayName="Urine cannabinoids detection by screening method" /> <statusCode code="completed" /> <effectiveTime value="736301936429" /> <value unit="" xsi:type="PQ " value="NEGATIVE" /> <referenceRange> <observationRange> <text>NEGATIVE</text> </observationRange> </ referenceRange> </observation> </component> <component> <observation moodCode="EVN" classCode="OBS"> <templateId root= "2.16.840.1.189068.10..22.4.2" /> <id nullFlavor="NA" /> < code codeSystem="local" code="35612-4" displayName="Urine opiates detection by screening method" /> <statusCode code="completed" /> < effectiveTime value="298158705488" /> <value unit="" xsi:type="PQ" value="NEGATIVE" /> <referenceRange> <observationRange> <text>NEGATIVE</text> </observationRange> </ referenceRange> </observation> </component> <component> <observation moodCode="EVN" classCode="OBS"> <templateId root= "2.16.840.1.751698.10...4.2" /> <id nullFlavor="NA" /> < code codeSystem="local" code="3377-9" displayName="Urine barbiturates detection " /> <statusCode code="completed" /> <effectiveTime value= "854850355986" /> <value unit="" xsi:type="PQ" value="NEGATIVE" /> <referenceRange> <observationRange> <text>NEGATIVE </text> </observationRange> </referenceRange> </ observation> </component> <component> <observation moodCode= "EVN" classCode="OBS"> <templateId root="2.16.840.1.199002.10.20.22.4.2 " /> <id nullFlavor="NA" /> <code codeSystem="local" code= "65729-9" displayName="Screening urine tricyclic antidepressants detection" /> <statusCode code="completed" /> <effectiveTime value= "436659384997" /> <value unit="" xsi:type="PQ" value="NEGATIVE" /> <referenceRange> <observationRange> <text>NEGATIVE </text> </observationRange> </referenceRange> </ observation> </component> <component> <observation moodCode= "EVN" classCode="OBS"> <templateId root="216.840.1.364609.10..22.4.2 " /> <id nullFlavor="NA" /> <code codeSystem="local" code= "66610-0" displayName="Urine methadone detection by screening method" /> <statusCode code="completed" /> <effectiveTime value="720153674294" /> <value unit="" xsi:type="PQ" value="NEGATIVE" /> < referenceRange> <observationRange> <text>NEGATIVE</text > </observationRange> </referenceRange> </observation > </component> <component> <observation moodCode="EVN" classCode="OBS"> <templateId root="11.30.840.1.182761.08.03.22.4.2" /> <id nullFlavor="NA" /> <code codeSystem="local" code="89436-0 " displayName="Urine oxycodone detection" /> <statusCode code= "completed" /> <effectiveTime value="337722340239" /> <value unit="" xsi:type="PQ" value="NEGATIVE" /> <referenceRange> < observationRange> <text>NEGATIVE</text> </ observationRange> </referenceRange> </observation> </ component> <component> <observation moodCode="EVN" classCode="OBS"> <templateId root="216.840.1.136440.10..4.2" /> <id nullFlavor="NA" /> <code codeSystem="local" code="50685-8" displayName= "Urine propoxyphene detection" /> <statusCode code="completed" /> <effectiveTime value="" /> <value unit="" xsi:type="PQ " value="NEGATIVE" /> <referenceRange> <observationRange> <text>NEGATIVE</text> </observationRange> </ referenceRange> </observation> </component> </organizer> </entry > <entry> <organizer moodCode="EVN" classCode="BATTERY"> <templateId root="16.840.1.867162.10..22.4.1" /> <id nullFlavor="NA" /> <code codeSystem="local" code="630-4" displayName="Bacterial urine culture" /> < statusCode code="completed" /> <component> <observation moodCode= "EVN" classCode="OBS"> <templateId root="16.840.1.331356.10...4.2 " /> <id nullFlavor="NA" /> <code codeSystem="local" code="630 -4" displayName="Bacterial urine culture" /> <statusCode code= "completed" /> <effectiveTime value="596686852673" /> <value unit="" xsi:type="PQ" value="SEE COMMEN" /> <referenceRange> <observationRange> <text>NRG</text> </observationRange > </referenceRange> </observation> </component> < component> <observation moodCode="EVN" classCode="OBS"> < templateId root="11.30.840.1.880848.10..22.4.2" /> <id nullFlavor="NA " /> <code codeSystem="local" code="CC" displayName="COLONY COUNT" /> <statusCode code="completed" /> <effectiveTime value= "112192749019" /> <value unit="" xsi:type="PQ" value="." /> < referenceRange> <observationRange> <text>NRG</text> </observationRange> </referenceRange> </observation> </component> </organizer> </entry> <entry> <organizer moodCode="EVN" classCode="BATTERY"> <templateId root="2.16.840.1.531545.10.20.22.4.1" /> <id nullFlavor="NA" /> <code codeSystem="local" code="83177-3" displayName="Methicillin resistant Staphylococcus aureus (MRSA) screening culture" /> <statusCode code="completed" /> <component> < observation moodCode="EVN" classCode="OBS"> <templateId root= "2.16.840.1.174068.10.20.22.4.2" /> <id nullFlavor="NA" /> < code codeSystem="local" code="67103-8" displayName="Methicillin resistant Staphylococcus aureus (MRSA) screening culture" /> <statusCode code= "completed" /> <effectiveTime value="848351364015" /> <value unit="" xsi:type="PQ" value="NEG" /> <referenceRange> < observationRange> <text>NRG</text> </observationRange> </referenceRange> </observation> </component> </ organizer> </entry></section> Encounters ACCT No. Visit Date/Time Discharge Status Pt. Type Provider Facility Loc./Unit Complaint [id number] 12/24/2017 00:00:00 12/24/2017 00:00:00 DIS Outpatient [id number] 03/14/2017 13:15:00 Document Registration [id number] 03/14/2017 00:00:00 Document Registration [id number] 01/05/2018 15:04:00 ACT Document Registration [id number] 01/04/2018 10:08:00 01/04/2018 12:30:00 DIS Emergency Magallanes Howard [facility] on [facility] [place] ED abd pain [id number] 12/15/2017 20:05:00 12/15/2017 23:59:59 CLS Emergency Zarate Jacob [facility] on [facility] ED chest pain, memory issues [id number] 11/21/2017 00:46:00 11/28/2017 17:20:00 DIS Inpatient DavidGavin [facility] on [facility] J5IM SA, APAP tox, meth abuse [id number] 11/04/2017 02:42:00 11/04/2017 03:40:00 DIS Emergency Zac Tijerina [facility] on [facility] ED SOA, ABD Pain [id number] 10/16/2017 22:17:00 10/17/2017 01:11:00 DIS Emergency Magallanes Howard [facility] on [facility] ED abd pain [id number] 08/04/2017 18:35:00 08/05/2017 12:28:00 DIS Emergency Zarate Jacob [facility] on [facility] ED abominal pain [id number] 08/03/2017 11:01:00 08/03/2017 14:17:00 DIS Emergency Zarate Jacob [facility] on [facility] ED abd pain [id number] 06/11/2017 10:40:00 06/11/2017 23:59:59 CLS Emergency Zarate Jacob [facility] on [facility] ED ABD PAIN [id number] 05/24/2017 09:18:00 05/24/2017 12:11:00 DIS Emergency Zarate Jacob [facility] on [facility] ED n/v bodyaches, chills [id number] 02/09/2017 08:16:00 02/09/2017 13:41:00 DIS Emergency Love Denise [facility] on [facility] ED nausea, left sided abd pain [id number] 09/30/2016 01:15:00 09/30/2016 04:31:00 DIS Emergency Rcihar Pierce [facility] on [facility] ED sore throat, left ear pain [id number] 08/17/2016 17:31:00 08/17/2016 19:42:00 DIS Emergency Zac Tijerina [facility] on [facility] ED right side abd pain [id number] 08/16/2016 00:56:00 08/17/2016 12:59:00 DIS Outpatient Velazquez Jeremy [facility] J6E intractable abdominal pain [id number] 05/28/2016 20:19:00 05/28/2016 21:41:00 DIS Emergency Srivastava Mark [facility] on [facility] ED cough, SOA [id number] 03/20/2016 01:21:00 03/20/2016 23:59:59 CLS Emergency Skinner Iggy [facility] on [facility] ED abd pain, cramping [id number] 03/07/2016 21:42:00 03/08/2016 19:16:00 DIS Outpatient Gage Bricerey Raudel [facility] on [facility] J5W Incomplete / dysfunctional bleeding [id number] 02/29/2016 23:47:00 03/01/2016 01:01:00 DIS Emergency Srivastava Mark [facility] on [facility] ED vaginal bleeding [id number] 02/28/2016 20:08:00 02/28/2016 22:19:00 DIS Emergency Srivastava Mark [facility] on [facility] ED vag bleeding, 8 wks [id number] 02/18/2016 13:47:00 02/18/2016 17:14:00 DIS Emergency Richar Pierce [facility] on [facility] ED Possible miscarriage [id number] 01/25/2016 20:48:00 01/25/2016 23:09:00 DIS Emergency José Magallanes MD [facility] on [facility] ED CONGESTION, COUGH [id number] 11/25/2015 13:12:00 11/25/2015 13:52:00 DIS Emergency José Magallanes MD [facility] on [facility] ED sore throt [id number] 10/27/2015 12:04:00 10/27/2015 13:55:00 DIS Emergency Richar Pierce [facility] on [facility] ED SOA possible reaction to meds [id number] 06/10/2015 10:24:00 06/10/2015 12:25:00 DIS Emergency Navin Reynolds MD [facility] on [facility] ED N/V [id number] 05/02/2015 12:45:00 05/02/2015 17:15:00 DIS Emergency Elpidio DODD, José Barajas [facility] on [facility] ED sore throat, AGUILERA [id number] 01/05/2018 05:16:58 Document Registration [id number] 11/29/2017 05:16:48 Document Registration [id number] 11/27/2017 05:17:01 Document Registration [id number] 11/26/2017 05:15:46 Document Registration [id number] 11/24/2017 05:16:54 Document Registration [id number] 11/23/2017 05:16:49 Document Registration [id number] 11/22/2017 05:16:43 Document Registration [id number] 11/21/2017 05:17:23 Document Registration [id number] 08/06/2017 05:16:01 Document Registration [id number] 08/05/2017 05:16:09 Document Registration [id number] 08/05/2017 05:16:08 Document Registration [id number] 08/04/2017 05:17:00 Document Registration [id number] 08/04/2017 05:16:59 Document Registration [id number] 05/25/2017 05:16:24 Document Registration [id number] 05/25/2017 05:16:23 Document Registration [id number] 02/10/2017 05:16:11 Document Registration [id number] 10/01/2016 05:15:23 Document Registration [id number] 09/30/2016 05:15:40 Document Registration [id number] 08/18/2016 05:17:33 Document Registration [id number] 08/17/2016 05:17:15 Document Registration [id number] 08/16/2016 05:17:13 Document Registration [id number] 05/29/2016 05:15:17 Document Registration [id number] 03/21/2016 05:15:44 Document Registration [id number] 03/09/2016 05:15:51 Document Registration [id number] 03/08/2016 05:16:38 Document Registration [id number] 03/01/2016 05:16:45 Document Registration [id number] 02/19/2016 05:16:30 Document Registration [id number] 01/26/2016 05:16:48 Document Registration [id number] 11/26/2015 05:16:00 Document Registration [id number] 10/28/2015 05:16:07 Document Registration [id number] 10/23/2015 05:16:33 Document Registration [id number] 10/23/2015 00:22:00 Document Registration [id number] 08/04/2015 13:35:28 Document Registration [id number] 08/04/2015 13:04:37 Document Registration [id number] 08/04/2015 11:33:05 Document Registration [id number] 10/16/2017 23:32:00 10/17/2017 00:30:00 DIS Emergency Aakash Luis DO [facility] [id number] 06/11/2017 18:32:00 06/11/2017 21:45:00 DIS Emergency Tanja DODD[facility] [id number] 06/08/2016 13:30:00 06/08/2016 13:30:00 CAN Outpatient [facility] [id number] 02/04/2016 14:29:00 02/04/2016 17:46:00 DIS Emergency Fabienne DODD, Rashaun Mendes [facility] [id number] 01/30/2016 21:33:00 01/30/2016 22:51:00 DIS Emergency Vishal DODD, Zac Arshad [facility] [id number] 12/11/2015 15:28:00 12/11/2015 15:59:00 DIS Emergency [facility] [id number] 11/30/2015 23:10:00 12/01/2015 00:15:00 DIS Emergency Justino Matson DO [facility] [id number] 10/06/2016 14:57:20 10/06/2016 23:59:59 CLS Outpatient Yunior Velazquez [id number] 12/25/2017 05:16:39 Document Registration [id number] 12/22/2017 05:16:44 Document Registration [id number] 12/21/2017 05:16:13 Document Registration [id number] 12/20/2017 05:17:02 Document Registration [id number] 12/19/2017 05:17:18 Document Registration [id number] 12/16/2017 05:16:09 Document Registration [id number] 12/15/2017 20:05:00 Document Registration [id number] 02/09/2017 08:16:00 Document Registration [id number] 08/17/2016 17:31:00 Document Registration [id number] 08/16/2016 00:00:00 Document Registration [id number] 03/07/2016 21:42:00 Document Registration [id number] 02/29/2016 15:29:00 Document Registration [id number] 05/08/2018 13:31:00 05/08/2018 14:12:00 DIS Outpatient BUTCH LOTT [facility] ER RIGHT FINGER LACERATION [id number] 03/26/2018 02:10:00 03/27/2018 13:26:00 DIS Inpatient HEMALATHA DODD, LEROY Nash [facility] ICU OD,SUICIDE ATTEMPT, TRICHOMONAS VAGINITIS [id number] 03/26/2018 07:31:00 Document Registration [id number] 03/26/2018 07:31:00 Document Registration [id number] 03/26/2018 07:31:00 Document Registration [id number] 05/15/2018 14:00:00 05/15/2018 23:59:59 CLS Outpatient DANIA ANG [facility]
[2018-07-16 05:28] VITALS: BP 0/0
--- NOTE | 2018-07-16 05:29 | ED Psychosocial ---
General Chief Complaint: Substance Abuse Stated Complaint: PSYCH Source: patient, police, EMS Exam Limitations: no limitations History of Present Illness Date Seen by Provider: Jul 16, 2018 Time Seen by Provider: 05:01 Initial Comments Here by EMS after being called because she was freaking out per the patient's words. She states that she has mental health disorder and needs something to calm down. She is specifically requesting Ativan. She admits that she is use quite a bit of drugs over the last week including methamphetamine, marijuana, PCP and other things that she is not sure. Does have history of schizophrenia. Also has history of bipolar and borderline personality disorder. She is not currently on any meds. She states that she is not homicidal or suicidal and she is not going to the [facility]. Doesn't have any specific complaints except one something to calm herself down. Timing/Duration: week Severity: moderate Associated Symptoms: anxiety, impaired concentration Allergies and Home Medications Allergies Coded Allergies: penicillin G (Verified Allergy, Severe, Throat Swelling, 03/26/18) divalproex sodium (Verified Allergy, Unknown, Vomiting, 03/26/18) Home Medications No Active Prescriptions or Reported Meds Patient Home Medication List Home Medication List Reviewed: Yes Review of Systems Constitutional: see HPI; No chills, No fever Psychiatric/Neurological: See HPI, Anxiety, Depressed, Emotional Problems Refused to answer Past Rpdrjzt-Tvarpe-Bqrtfa Hx Past Med/Social Hx: Reviewed Nursing Past Med/Soc Hx Patient Social History Recreational Drug Use: Yes Drug of Choice: THC, methamphetamine, PCP Smoking Status: Current Everyday Smoker Type Used: Cigarettes 2nd Hand Smoke Exposure: Yes Recent Foreign Travel: No Contact w/Someone Who Travel: No Recent Hopitalizations: No Immunizations Up To Date Tetanus Booster (TDap): Unknown PED Vaccines UTD: No Seasonal Allergies Seasonal Allergies: No Past Medical History Surgeries: Yes Gallbladder Respiratory: Yes Asthma Currently Using CPAP: No Currently Using BIPAP: No Cardiac: Yes Heart Murmur Neurological: No Female Reproductive Disorders: Denies Sexually Transmitted Disease: Yes (HPV) HIV/AIDS: No Genitourinary: No Gastrointestinal: No Musculoskeletal: No Endocrine: No HEENT: No Loss of Vision: Denies Hearing Impairment: Denies Cancer: No Psychosocial: Yes Anxiety, PTSD, Suicide Attempts, Bipolar Integumentary: No Blood Disorders: No Adverse Reaction/Blood Tranf: No Family Medical History Reviewed Nursing Family Hx Does not know biological family- grew up in foster care Physical Exam Capillary Refill : Height, Weight, BMI Height: 5'10.00" Weight: 210lbs. 6.0oz. 95.487743bc; 34.2 BMI Method:Stated General Appearance: WD/WN, moderate distress HEENT: PERRL/EOMI, pharynx normal Neck: full range of motion, supple Respiratory: lungs clear, normal breath sounds Cardiovascular: regular rate, rhythm, no murmur Extremities: normal range of motion, non-tender Neurologic/Psychiatric: alert Appearance/Memory: disheveled Behavior/Eye Contact: threatening eye contact, increased rate of speech, belligerent, uncooperative Thoughts/Hallucinations: auditory hallucinations Skin: normal color, warm/dry Progress/Results/Core Measures Results/Orders My Orders Orders - SALVATORE MORROW MD Alprazolam Tablet (Xanax Tablet) (07/16/18 05:14) Progress Progress Note : Progress Note Seen and evaluated. Police arrived with patient and EMS. Patient very belligerent and yelling. Stating that she wanted something to calm her down. We wanted to give Geodon 20 mg IM the patient refused and then refused all needles. She was asking for Ativan. Offered Xanax but she said she would take. 1 mg by mouth ordered. Patient did not take the Xanax and sural water. Remained belligerent and stated that she was going to leave. She denied SI or HI. Patient stated she did not want further medical care or anybody touching her and wanted to leave. Patient left prior to full evaluation. She did not sign paperwork and would not wait. Left prior to discharge paperwork or full evaluation. Departure Impression Primary Impression: Schizophrenia, acute Additional Impression: Drug abuse Disposition: AGAINST MEDICAL ADVICE Condition: Stable Departure-Patient Inst. Decision time for Depature: 05:25 Referrals: NO,LOCAL PHYSICIAN (PCP/Family) Primary Care Physician Patient Instructions: ALCOHOL AND SUBSTANCE ABUSE Add. Discharge Instructions: All discharge instructions reviewed with patient and/or family. Voiced understanding. Left prior to paperwork. Instructed to return for other concerns as needed. Scripts No Active Prescriptions or Reported Meds SALVATORE MORROW MD Jul 16, 2018 05:29
== END 2018-07-16 05:26 | disposition left against medical advice (07) ==
LOC: EDUNIT# 05:01 → ER 05:03
DX: F20.9 Schizophrenia, unspecified (principal); F12.10 Cannabis abuse, uncomplicated; F15.10 Other stimulant abuse, uncomplicated; F31.9 Bipolar disorder, unspecified; J45.909 Unspecified asthma, uncomplicated; F41.9 Anxiety disorder, unspecified; F43.10 Post-traumatic stress disorder, unspecified; F17.210 Nicotine dependence, cigarettes, uncomplicated; Z91.5 Personal history of self-harm; Z86.19 Personal history of other infectious and parasitic diseases; Z88.0 Allergy status to penicillin; Z88.8 Allergy status to other drugs, medicaments and biological substances
CPT/HCPCS: 99284

== ENCOUNTER 2018-11-28 13:48 | Emergency (ER) | payer MEDICAID, OTHER ==
[~2018-11-28] VITALS: Ht 165.1 cm; Wt 86.2 kg
[~2018-11-28 13:48] MED LIST changes: -WATER (STERILE) FOR INJECTION 20 ML ONE; -ZIPRASIDONE 20 MG INJ (GEODON) VIAL IM ONE
--- OUTSIDE RECORDS SUMMARY | 2018-11-28 13:57 | XMS REPORT ---
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 Name Role Phone ROME RAMIREZ Unavailable PROBLEMS Type Condition ICD9-CM Code [id number] Code Onset Dates Condition Status SNOMED Code Problem Paranoid schizophrenia F20.0 Active 15227899 Problem Mood disorder F39 Active 32921899 Problem Allergic rhinitis, unspecified seasonality, unspecified trigger J30.9 Active 31287103 ALLERGIES Substance Reaction Event Type Date Status Penicillin V Potassium Unknown Drug Allergy Jul, Active Depakote Unknown Drug Allergy Jul, Active Latex Unknown Non Drug Allergy Jul, Active ENCOUNTERS Encounter Location Date Diagnosis [facility] [id number] [place] [address] Jul, [facility] [address] [address] Jul, Allergic rhinitis, unspecified seasonality, unspecified trigger J30.9 ; Dental caries K02.9 and Mood disorder F39 [facility] [id number] [place] [id number] May, Dental examination Z01.20 [facility] [id number] [place] [address] Sep, [facility] [id number] [place] [address] Aug, [facility] [address] [address] Aug, [facility] [id number] [place] [address] Aug, [facility] [address] [address] Aug, [facility] [place] [facility] [address] [id number] [place] [address] 17 Aug, 2010 [facility] [place] [facility] [address] [id number], [place] [address] 17 Aug, 2010 [facility] [place] [facility] [address] [facility] [place] [id number] [place] [address] Aug, [facility] [place] [facility] [address] [id number], [place] [address] Aug, [facility] [place] [facility] [address] [id number] [place] [address] Jul, [facility] [place] [facility] [address] [facility] [place] [id number], [place] [address] Sep, [facility] [place] [facility] [address] [facility] [place] [id number], [place] [address] Aug, [facility] [place] [facility] [address] [facility] [place] [id number], [place] [address] 16 Aug, 2009 [facility] [place] [facility] [address] [facility] [place] [id number], [place] [address] Aug, [facility] [place] [facility] [address] [facility] [place] [id number], [place] [address] Aug, [facility] [place] [facility] [address] [facility] [place] [id number], [place] [address] Aug, [facility] [place] [facility] [address] [facility] [place] [id number], [place] [address] Aug, [facility] [place] [facility] [address] [facility] [place] [id number], [place] [address] 12 Jul, 2009 [facility] [place] [facility] [address] [facility] [place] [id number], [place] [address] 12 Jul, 2009 [facility] [place] [facility] [address] [facility] [place] [id number], [place] [address] 14 Jun, 2009 [facility] [place] [facility] [address] [facility] [place] [id number] [place] [address] Mar, [facility] [address] [facility] [place] [id number], [place] [address] Aug, IMMUNIZATIONS No Known Immunizations SOCIAL HISTORY Never Assessed REASON FOR VISIT Establish Care moved from [place]. KRISTIE Barber, Thinks she is , Needs meds for paranoid schz PLAN OF CARE Activity Details Follow Up prn Reason: VITAL SIGNS MEDICATIONS Medication Instructions Dosage Frequency Start Date End Date Duration Status Iron Active Clindamycin HCl 300 MG Orally Three times a day 1 capsule 8h Jul, Jul, 10 day(s) Active Flonase 50 mcg/act Nasally Once a day 1 spray in each nostril 24h Jul, 30 day(s) Active Cetirizine HCl 10 mg Orally Once a day 1 tablet 24h Jul, Oct, 30 day(s) Active RESULTS No Results PROCEDURES No Known procedures INSTRUCTIONS MEDICATIONS ADMINISTERED No Known Medications MEDICAL (GENERAL) HISTORY Type Description Date Medical History anemia Medical History LBP Medical History Heart Murmur Medical History Asthma Medical History thyroid problems Medical History hemophillic Medical History hypoglycemic Medical History arthritis Medical History eczema Medical History scoloisis Surgical History gallbladder removed 09/2017 Hospitalization History suicide attempt March
[2018-11-28] MEDS ORDERED: ONDANSETRON 4 MG/2 ML (SDV) Z0FRAN IVP ONE (14:00)
[2018-11-28] MEDS ORDERED: NS IV 1000 ML 1,000 ML IV SCH (14:00)
--- OUTSIDE RECORDS SUMMARY | 2018-11-28 14:00 | XMS REPORT | Continuity of Care Document ---
Author Author [facility] Address Unknown Phone Unavailable Allergies Active Description Code Type Severity Reaction Onset Reported/Identified Relationship to Patient Clinical Status Yes divalproex sodium [id number] Drug Allergy Unknown N/A 07/06/2008 Yes penicillin G [id number] Drug Allergy Unknown N/A 07/06/2008 Yes Depakote ER NKMA N/A N/A 12/22/2014 Yes penicillin NKMA N/A N/A 12/22/2014 Yes Depakote - Oral Medication MED N/A N/A 12/28/2014 Yes Penicillins - CLASS Class MED N /A N/A 12/28/2014 Yes Depakote ER NKMA Medium [id number] 05/02/2015 Yes penicillin NKMA Severe 784.2 05/02/2015 Yes No Known Allergies No Known Allergies Drug Allergy Unknown N/A 2015 Yes Latex 403 N/A N/A 02/28/2016 Yes divalproex sodium divalproex sodium Drug Allergy Mild VOMITING 06/11/2017 Yes Penicillins Penicillins Drug Allergy Unknown THROAT SWELLING 06/11/2017 Yes latex latex Drug Allergy Unknown HIVES 10/17/2017 Yes penicillin G [id number] Drug Allergy Severe Throat Swelling 03/26/2018 Yes divalproex sodium [id number] Drug Allergy Unknown Vomiting 03/26/2018 Medications Medication [...] 0.5MG Take one tablet TID PRN for anxiety.[id number] 5 mg BID dose predniSONE(predniSONE) 1 tabs [...] ORAL 5MG TAKE 1 TABLET TWICE DAILY. [place] Carbonate 300 MG Oral Capsule 01/10/2016 03/11/2016 [...] mg=2 mL, IV Push, q6hr, PRN: Nausea HYDROcodone-acetaminophen(Williams 5 mg-325 mg oral tablet) 1 tabs [...] ORAL 150MG TAKE 1/2 TABLET AT BEDTIME. [place] Carbonate 300 MG Oral Capsule 03/30/2016 05/30/2016 [...] ORAL 150MG TAKE 1/2 TABLET AT BEDTIME. [place] Carbonate 300 MG Oral Capsule 05/31/2016 07/01/2016 [...] ORAL 150MG TAKE 1/2 TABLET AT BEDTIME. [place] Carbonate 300 MG Oral Capsule 07/31/2016 10/30/2016 [...] I10 Essential ( primary) hypertension Rosie Hernandez A 02/09/2016 F F31.5 Bipolar disorder, current [...] Final F17.210 Nicotine dependence, cigarettes, uncomplicated 06/01/2016 Srivatsava Mark Final J45.901 Unspecified asthma with (acute) [...] adult 08/23/2016 Velazquez Jeremy Final Z79.899 Other [facility] (current) drug therapy 10/03/2016 Richar Pierce Final [...] M 12/27/2016 F F41.9 Anxiety disorder, unspecified Revelo, [facility] 12/27/2016 F F43.10 Post- traumatic stress disorder, unspecified Revelo, Kymberly 12/27/2016 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 Revelo, [facility] 12/27/2016 F F41.9 Anxiety disorder, unspecified Psy, [...] employment Bethany Gomez 11/28/2017 F Z59.0 Homelessness Betahny Gomez 11/28/2017 F Z65.3 Problems related to [...] 01/07/2018 Elpidio,José Final E03.9 Hypothyroidism, unspecified 01/07/2018 Elpidio,José Final E16.2 Hypoglycemia, unspecified 01/07/2018 Elpidio,José Final [...] result negative 01/07/2018 Magallanes Howard Final 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 01/07/2018 Magallanes [...] Ot 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, SELF- 05/08/2018 BUTCH LOTT Ot F31.9 BIPOLAR DISORDER, UNSPECIFIED 05/08/2018 BUTCH LOTT Ot F41.9 ANXIETY DISORDER, UNSPECIFIED 05/08/2018 BUTCH LOTT Ot F43.10 POST-TRAUMATIC STRESS DISORDER, UNSPECIF 05/08/2018 BUTCH LOTT Ot J45.909 UNSPECIFIED ASTHMA, UNCOMPLICATED 05/08/2018 BUTCH LOTT Ot S61.212A LACERATION W/O FB OF R MID FINGER W/O DA 05/08/2018 BUTCH LOTT Ot W27.8XXA CONTACT WITH OTHER NONPOWERED HAND TOOL, 05/08/2018 BUTCH LOTT Ot Z23 ENCOUNTER FOR IMMUNIZATION 05/08/2018 BUTCH LOTT Ot Z86.19 PERSONAL HISTORY OF OTHER INFECTIOUS AND 05/08/2018 BUTCH LOTT Ot Z88.0 ALLERGY STATUS TO PENICILLIN 05/08/2018 BUTCH LOTT Ot Z88.8 ALLERGY STATUS TO OTH DRUG/MEDS/BIOL SUB 05/08/2018 BUTCH LOTT Ot Z91.5 PERSONAL HISTORY OF [...] CONTACT WITH OTHER NONPOWERED HAND TOOL, 05/10/2018 SHAY LOTTIS Ot Z23 ENCOUNTER FOR IMMUNIZATION 05/10/2018 BUTCH LOTT Ot Z86.19 PERSONAL HISTORY OF OTHER INFECTIOUS AND 05/10/2018 SHAY LOTTIS Ot Z88.0 ALLERGY STATUS TO PENICILLIN 05/10/2018 SHAY LOTTIS Ot Z88.8 ALLERGY STATUS TO OTH DRUG/MEDS/BIOL SUB 05/10/2018 SHAY LOTTIS Ot Z91.5 PERSONAL HISTORY OF SELF-HARM 05/10/2018 BUTCH LOTT Ot F31.9 BIPOLAR DISORDER, UNSPECIFIED 05/10/2018 BUTCH LOTT Ot F41.9 ANXIETY DISORDER, UNSPECIFIED 05/10/2018 SHAY LOTTIS Ot F43.10 POST-TRAUMATIC STRESS DISORDER, UNSPECIF 05/10/2018 BUTCH LOTT Ot J45.909 UNSPECIFIED ASTHMA, UNCOMPLICATED 05/10/2018 BUTCH LOTT Ot S61.212A LACERATION W/O FB OF R MID FINGER W/O DA 05/10/2018 BUTCH LOTT Ot W27.8XXA CONTACT WITH OTHER NONPOWERED HAND TOOL, 05/10/2018 BUTCH LOTT Ot Z23 ENCOUNTER FOR IMMUNIZATION 05/10/2018 SHAY LOTTIS Ot Z86.19 PERSONAL HISTORY OF OTHER INFECTIOUS AND 05/10/2018 SHAY LOTTIS Ot Z88.0 ALLERGY STATUS TO PENICILLIN 05/10/2018 SHAY LOTTIS Ot Z88.8 ALLERGY STATUS TO OTH DRUG/MEDS/BIOL SUB 05/10/2018 SHAY LOTTIS Ot Z91.5 PERSONAL HISTORY OF SELF-HARM 07/16/2018 SALVATORE MORROW MD Ot F12.10 CANNABIS ABUSE, UNCOMPLICATED 07/16/2018 SALVATORE MORROW MD Ot 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 STIMULANT ABUSE, UNCOMPLICATED 07/16/2018 SALVATORE MORROW MD Ot F17.210 NICOTINE DEPENDENCE, CIGARETTES, UNCOMPL 07/16/2018 SALVATORE MORROW MD Ot F20.9 SCHIZOPHRENIA, UNSPECIFIED 07/16/2018 SALVATORE MORROW MD Ot F29 UNSP PSYCHOSIS NOT DUE TO A SUBSTANCE OR 07/16/2018 SALVATORE MORROW MD Ot F31.9 BIPOLAR DISORDER, UNSPECIFIED 07/16/2018 SALVATORE MORROW MD Ot F41.9 ANXIETY DISORDER, UNSPECIFIED 07/16/2018 MICCOSUKEE MD, SALVATORE D Ot F43.10 POST-TRAUMATIC STRESS DISORDER, UNSPECIF 07/16/2018 SALVATORE MORROW MD Ot J45.909 UNSPECIFIED ASTHMA, UNCOMPLICATED 07/16/2018 SALVATORE MORROW MD Ot Z86.19 PERSONAL HISTORY OF OTHER INFECTIOUS AND 07/16/2018 SALVATORE MORROW MD Ot Z88.0 ALLERGY STATUS TO PENICILLIN 07/16/2018 SALVATORE MORROW MD Ot Z88.8 ALLERGY STATUS TO OTH DRUG/MEDS/BIOL SUB 07/16/2018 SALVATORE MORROW MD Ot Z91.5 PERSONAL HISTORY OF SELF-HARM 07/22/2018 SALVATORE MORROW MD Ot F12.10 CANNABIS ABUSE, UNCOMPLICATED 07/22/2018 SALVATORE MORROW MD Ot 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 STIMULANT ABUSE, UNCOMPLICATED 07/22/2018 SALVATORE MORROW MD Ot F17.210 NICOTINE DEPENDENCE, CIGARETTES, UNCOMPL 07/22/2018 SALVATORE MORROW MD Ot F20.9 SCHIZOPHRENIA, UNSPECIFIED 07/22/2018 SALVATORE MORROW MD Ot F29 UNSP PSYCHOSIS NOT DUE TO A SUBSTANCE OR 07/22/2018 SALVATORE MORROW MD Ot F31.9 BIPOLAR DISORDER, UNSPECIFIED 07/22/2018 SALVATORE MORROW MD Ot F41.9 ANXIETY DISORDER, UNSPECIFIED 07/22/2018 SALVATORE MORROW MD Ot F43.10 POST-TRAUMATIC STRESS DISORDER, UNSPECIF 07/22/2018 SALVATORE MORROW MD Ot J45.909 UNSPECIFIED ASTHMA, UNCOMPLICATED 07/22/2018 SALVATORE MORROW MD Ot Z86.19 PERSONAL HISTORY OF OTHER INFECTIOUS AND 07/22/2018 SALVATORE MORROW MD Ot Z88.0 ALLERGY STATUS TO PENICILLIN 07/22/2018 SALVATORE MORROW MD Ot Z88.8 ALLERGY STATUS TO OTH DRUG/MEDS/BIOL SUB 07/22/2018 SALVATORE MORROW MD Ot Z91.5 PERSONAL HISTORY OF SELF-HARM 11/07/2018 Delaney Delane Final J42 Unspecified chronic bronchitis 11/07/2018 Delaney Delane Reason R05 Cough Procedures Code Description Performed By Performed On 73.59 MANUAL ASSIST DELIV NEC 09/01/2009 [id number] OFFICE/OUTPATIENT VISIT, Carolina Appiahe A 09/30/2015 [id number] OFFICE/OUTPATIENT VISIT, Rosie Appiah A 09/30/2015 74937 OFFICE/OUTPATIENT VISIT, GABI Hernandez, Rosie A 10/20/2015 [id number] OFFICE/OUTPATIENT VISIT, Rosie Appiah A 10/20/2015 [id number] OFFICE/OUTPATIENT VISIT, GABI Hernandez, Rosie A 12/15/2015 [id number] OFFICE/OUTPATIENT VISIT, GABI Hernandez, Rosie A 12/15/2015 [id number] Anju , Aliza Ivette 01/05/2016 97669 Anju , Aliza Ivette 01/05/2016 71392 OFFICE/OUTPATIENT VISIT, Rosie Appiah A 01/10/2016 [id number] OFFICE/OUTPATIENT VISIT, Rosie Appiah 01/10/2016 15028 Anju , Aliza Ivette 01/14/2016 30319 Anju , Aliza Ivette 01/14/2016 H0036 Evans , Joey 01/27/2016 H0036 Evans , Joey 01/27/2016 33301 Anju , Aliza Ivette 01/28/2016 64107 Anju , Aliza Ivette 01/28/2016 36956 OFFICE/OUTPATIENT VISIT, Rosie Appiah A 02/09/2016 96029 OFFICE/OUTPATIENT VISIT, Rosie Appiah A 02/09/2016 73863 Anju , Aliza Ivette 02/10/2016 17499 Anju , Aliza Ivette 02/10/2016 H0036 Evans , Joey 02/24/2016 H0036 Evans , Joey 02/24/2016 H2011 HerlReginald W 03/06/2016 H2011 HerlReginald W 03/06/2016 17534 Anju , Aliza Ivette 03/14/2016 84568 Anju , Aliza Ivette 03/14/2016 56078 Anju , Aliza Ivette 03/28/2016 64581 Anju , Aliza Ivette 03/28/2016 36055 OFFICE/OUTPATIENT VISIT, Rosie Appiah 03/30/2016 80838 OFFICE/OUTPATIENT VISIT, Rosie Appiah A 03/30/2016 44840 Anju , Aliza Steele 04/07/2016 09779 Anju , Aliza Ayalaelle 04/07/2016 12534 Anju , Aliza Ivette 05/29/2016 55699 Anju , Aliza Steele 05/29/2016 [id number] OFFICE/OUTPATIENT VISIT, Rosie Appiah 05/31/2016 30521 OFFICE/OUTPATIENT VISIT, Rosie Appiah 05/31/2016 47109 Anju , Aliza Steele 07/12/2016 14344 Anju , Aliza Steele 07/12/2016 51144 OFFICE/OUTPATIENT VISIT, Rosie Appiah 07/31/2016 71443 OFFICE/OUTPATIENT VISIT, Rosie Appiah 07/31/2016 16468 Laparoscopy, surgical; cholecystectomy with cholangiography.. 2015 76210 Office or other outpatient visit for the evaluation and management of a new patient, which requires Yunior Velazquez 10/06/2016 [id number] Laparoscopy, surgical; cholecystectomy with cholangiography Yunior Velazquez 10/06/2016 40496 Laparoscopy, surgical; cholecystectomy with cholangiography Yunior Velazquez 10/20/2016 01533 Office or other outpatient visit for the evaluation and management of a new patient, which requires Yunior Velazquez 10/20/2016 88766 AnjuAliza dalton 11/07/2016 92592 Anju , Aliza Ivette 11/07/2016 00768 Guillermo Monkundrieka 12/27/2016 06395 Guillermo Monkundrieka 12/27/2016 07726 Guillermo Monkundrieka 01/03/2017 78988 Guillermo Monkundrieka 01/03/2017 83848 EYE EXAM ESTABLISHED PAT 03/14/2017 69611 REFRACTION 03/14/2017 V2020 Vision svcs frames purchases 03/14/2017 V2100 Lens spher single plano 4.00 03/14/2017 V2103 Spherocylindr 4.00d/12- 2.00d 03/14/2017 V2782 Lens, 1.54-1.65 p/1.60- 1.79g 03/14/2017 VNOPP No Protection Plan 03/14/2017 [id number] OFFICE/OUTPATIENT VISIT, Rosie Appiah 05/03/2017 [id number] OFFICE/OUTPATIENT VISIT, Rosie Appiah 05/03/2017 T1023 Gatekeeping Screen - Initial Bethany Gomez 11/28/2017 H2011 Crisis Intervention - Basic Ella Escalera 11/28/2017 H2011 Crisis Intervention - Advanced Lucy Pacheco 11/28/2017 H2011 Crisis Intervention - Advanced Lucy Pacheco R 11/28/2017 H2011 Crisis Intervention - Intermediate Lali, Ella 11/28/2017 [id number] INITIAL HOSPITAL CARE Coyner, Sienna S 12/19/2017 18633 SUBSEQUENT HOSPITAL CARE Coyner, Sienna S 12/20/2017 72840 SUBSEQUENT HOSPITAL CARE Coyner, Sienna S 12/21/2017 43229 SUBSEQUENT HOSPITAL CARE Coyner, Sienna S 12/22/2017 31697 SUBSEQUENT HOSPITAL CARE Coyner, Sienna S 12/23/2017 19890 HOSPITAL DISCHARGE DAY Coyner, Sienna S 12/24/2017 < section xmlns="urn:hl7-org:v3" xmlns:xsi="http://www.w3.org/2001/XMLSchema- instance"> <templateId root="[id number]" /> <templateId root="[id number]" /> <code codeSystemName="LOINC" codeSystem="[id number]" code="39962-5" displayName="Results" /> < title>Results</title> <text> <table> <thead> <tr> <th> Test</th> <th>Result</th> <th>Range</th> </tr> </ thead> <tbody> <tr> <th colspan="10">UR TEST - 21:54</th> </tr> <tr> <td>UR TEST</td> <td>POSITIVE </td> <td>NEGATIVE</td> </tr> <tr> <th colspan="10">URINALYSIS, ROUTINE - 01/30/16 21:54</th> </tr > <tr> <td>UA LEUKOCYTE ESTERASE DIPSTICK</td> <td> NEGATIVE [...] UR PH</td> <td>5.0 </td> <td>5.0-7.0</td> </tr> <tr> <th colspan="10">URINALYSIS, ROUTINE - 02/04/16 15:19</th> </tr> <tr> [...] <td>UR PH</td> <td>7.0 </td> <td>5.0-7.0</td> </tr> <tr> <th colspan="10">UA MICROSCOPIC - 02/04/16 15:19</th> </tr> < tr> <td>UA EPITHELIAL CELLS</td> <td>1+ epi/hpf</td> <td>0 - 1+</td> </tr> <tr> <td>UA MUCUS</td> <td >2+ </td> <td>NEG TO 1+</td> </tr> <tr> <td>UA RBC</td> <td>PACKED FIELD rbc/hpf</td> <td>0 - 3</td> < /tr> <tr> <td>UA VOLUME FOR EXAM</td> <td>12.0 mL</td> <td>(12mL STD)</td> </tr> <tr> <td>UA WBC</td> <td>2-5 wbc/hpf</td> <td>0 - 5</td> </tr> <tr> <th colspan="10">CHEM/HEM PROFILE-BEDSIDE - 02/04/16 15:20</th> </tr> <tr> [...] <tr> <td>WBC</td> <td>6.9 K/uL</td> <td>4.8-10.8</td> </tr> <tr> < colspan="10">HCG Quantitative - 03/07/16 22:37</th> </tr> <tr> <td>HCG Quantitative</td> <td>1174 mIU/mL</td> <td /> </tr> <tr> < colspan="10">PTT/PT (INR) - 03/08/16 04:25 </th> </tr> <tr> <td>INR</td> <td>1.1 NA</td> <td>0.9-1.2</td> </tr> <tr> <td>PTT</td> <td>30.9 seconds</td> <td>25.0-35.0</td> </tr> <tr> < colspan="10">CBC With Platelet No [...] <td>Negative NA</td> <td> Negative</td> </tr> <tr> <td>Specific Homer</td> <td>1.020 NA</td> <td>1.003-1.030</td> </tr> <tr> <td>UA Collection [...] <td>Protein</td> <td>Negative NA</td> <td>Negative</td> </tr> <tr> <td>Specific Homer</td> <td>1.015 NA </td> <td>1.003-1.030</td> </tr> <tr> <td>UA Collection type</td> <td>Clean Catch NA</td> <td /> </ tr> <tr> <td>Urobilinogen</td> <td>Negative mg/dL</td> <td><1.0</td> </tr> <tr> < colspan="10"> Screen, Urine - 05/24/17 09:55</th> </tr> <tr> <td> Screen, Urine</td> <td>Negative NA</td> <td /> </tr> <tr> < colspan="10">Chem 8 NPT - 05/24/17 10:22</ th> [...] <td>WBC</td> <td>7.8 K/uL</td> <td>4.8-10.8</td> </ tr> <tr> < colspan="10">Comprehensive Metabolic Panel (CMP) - 08/03/17 11:34</th> [...] <td>Pos 2+ NA</td> <td>Negative</td> </tr> <tr> <td>Specific Homer</td> <td>1.015 NA</td > <td>1.003-1.030</td> </tr> <tr> <td>UA [...] Urine</td> <td>10 /HPF</td> < td>0-4</td> </tr> <tr> < colspan="10"> Screen , Urine NPT - 08/03/17 [...] <td>Protein</td> <td>Negative NA</td> <td>Negative</td> </tr> <tr> <td>Specific Homer</ td> <td>1.010 NA</td> <td>1.003-1.030</td> </tr> <tr> <td>UA [...] <td>Negative NA</td> <td /> </tr> <tr> < colspan="10">URINALYSIS, ROUTINE - 10/16/17 23:55</th> </tr> <tr> [...] <td>Pos 2+ NA</td> <td>Negative</td> </tr> <tr> <td>Specific Homer</td> <td>1.045 NA</td> <td>1.003- 1.030</td> </tr> <tr> <td>UA [...] <td>Sodium</td> <td>140 mEq/L</td> <td> 136-144</td> </tr> <tr> < colspan="10">Alcohol, Blood - 11/21/17 01:06</th> </tr> <tr> <td>Alcohol, Blood</td> <td>Not Detected mg/dL</td> <td /> </tr> <tr> < colspan="10">eGFR - 11/21/17 01:06</th> </tr> <tr> <td>eGFR</td> <td>>60 mL/min</td> <td>>60</td> </tr> <tr> < colspan="10">CBC With Platelet No Differential - 11/21/17 [...] <td>Protein</td> <td>Negative NA</td> <td>Negative</td> </tr> <tr> <td>Specific Homer </td> <td>1.025 NA</td> <td>1.003-1.030</td> </tr> <tr> <td>UA [...] </tr> <tr> < colspan="10">Urine Drug Screen - 12/16/17 10:10</th> </tr> <tr> <td>Tricyclics</ td> <td>Negative NA</td> <td /> </tr> <tr> < colspan="10"> Screen, Urine NPT - 12/16/17 10:15</th> [...] <td>Not Detected mg/dL</td> <td /> </tr> <tr> < colspan="10"> eGFR - 12/16/17 10:44</th> </tr> <tr> <td>eGFR</td> <td>>60 mL/min</td> <td>>60</td> </tr> <tr> < colspan="10">Acetaminophen - 12/16/17 10:44</th> </tr> <tr> <td>Acetaminophen</td> <td><10 mcg/mL</td> <td>10-30</td> </tr> <tr> < colspan="10">Salicylate - 12/16/17 10:44</th> </tr> <tr> <td>Salicylate</td> <td><4 mg/dL</td> <td>0-30</td> </tr> <tr> < colspan="10">TSH with Reflex Free T4 - 12/16/17 [...] <td>Protein</td> <td>Negative NA</td> <td>Negative</td> </tr> <tr> <td>Specific Homer</td> <td>1.020 NA</td> <td>1.003-1.030 </td> </tr> <tr> <td>UA [...] measurement (mass/volume)</td> <td>< mg/dL</td> <td>5.0-20.0</td> </tr> <tr> < colspan="10">Serum or plasma acetaminophen measurement (mass/volume) - 03/26/18 00:50</th> </tr > <tr> <td>Serum or plasma acetaminophen measurement (mass/ volume)</td> <td>< ug/mL</td> <td>10-30</td> </tr> <tr> < colspan="10">Serum or plasma ethanol measurement (mass/ volume) - 03/26/18 00:50</th> </tr> <tr> <td>Serum or plasma ethanol measurement (mass/volume)</td> <td>< mg/dL</td> <td><10</td> </tr> <tr> < colspan="10">Serum or plasma thyrotropin measurement by detection [...] microscopy</td> <td> FEW </td> <td>NRG</td> </tr> <tr> <th colspan= "10">Urine beta human chorionic gonadotropin (hCG) [...] <entry> < organizer moodCode="EVN" classCode="BATTERY"> <templateId root= "[id number]" /> <id nullFlavor="NA" /> <code codeSystem="local" code="PREGU" displayName="UR TEST" /> < statusCode code="completed" /> <component> <observation moodCode= "EVN" classCode="OBS"> <templateId root="[id number] " /> <id nullFlavor="NA" /> <code codeSystem="local" code= "PREGU" displayName="UR TEST" /> <statusCode code="completed " /> <effectiveTime value="[id number]" /> <value unit="" xsi :type="PQ" value="POSITIVE" /> <interpretationCode codeSystem="local" code="*" /> <referenceRange> <observationRange> <text>NEGATIVE</text> </observationRange> </referenceRange > </observation> </component> </organizer> </entry> <entry> <organizer moodCode="EVN" classCode="BATTERY"> <templateId root= "216.840.1.328095.10...4.1" /> <id nullFlavor="NA" /> <code codeSystem="local" code="UA" displayName="URINALYSIS, ROUTINE" /> < statusCode code="completed" /> <component> <observation moodCode= "EVN" classCode="OBS"> <templateId root="[id number].2 " /> <id nullFlavor="NA" /> <code codeSystem="local" code= "LEUESU" displayName="UA LEUKOCYTE ESTERASE DIPSTICK" /> <statusCode code="completed" /> <effectiveTime value="193025738943" /> < value unit="" xsi:type="PQ" value="NEGATIVE" /> <referenceRange> <observationRange> <text>NEGATIVE</text> </ observationRange> </referenceRange> </observation> </ component> <component> <observation moodCode="EVN" classCode="OBS"> <templateId root="11.30.840.1.486046.08.03.22.4.2" /> <id nullFlavor="NA" /> <code codeSystem="local" code="NITRIU" displayName= "UA NITRITE DIPSTICK" /> <statusCode code="completed" /> < effectiveTime value="575278032313" /> <value unit="" xsi:type="PQ" value="NEGATIVE" /> <referenceRange> <observationRange> <text>NEGATIVE</text> </observationRange> </ referenceRange> </observation> </component> <component> <observation moodCode="EVN" classCode="OBS"> <templateId root= "216.840.1.578383...4.2" /> <id nullFlavor="NA" /> < code codeSystem="local" code="PROTEIU" displayName="UA PROTEIN DIPSTICK" /> <statusCode code="completed" /> <effectiveTime value= "985836659731" /> <value unit="" xsi:type="PQ" value="NEGATIVE" /> <referenceRange> <observationRange> <text>NEGATIVE </text> </observationRange> </referenceRange> </ observation> </component> <component> <observation moodCode= "EVN" classCode="OBS"> <templateId root="11.30.840.1.148113.10..22.4.2 " /> <id nullFlavor="NA" /> <code codeSystem="local" code= "DGLUU" displayName="UA GLUCOSE DIPSTICK" /> <statusCode code= "completed" /> <effectiveTime value="677724781115" /> <value unit="" xsi:type="PQ" value="NEGATIVE" /> <referenceRange> < observationRange> <text>NEGATIVE</text> </ observationRange> </referenceRange> </observation> </ component> <component> <observation moodCode="EVN" classCode="OBS"> <templateId root="11.30.840.1.257806.10..22.4.2" /> <id nullFlavor="NA" /> <code codeSystem="local" code="KETONU" displayName= "UA KETONE DIPSTICK" /> <statusCode code="completed" /> < effectiveTime value="270391038868" /> <value unit="" xsi:type="PQ" value="NEGATIVE" /> <referenceRange> <observationRange> <text>NEGATIVE</text> </observationRange> </ referenceRange> </observation> </component> <component> <observation moodCode="EVN" classCode="OBS"> <templateId root= "840.1.589416.10.22.4.2" /> <id nullFlavor="NA" /> < code codeSystem="local" code="UROBILU" displayName="UA UROBILINOGEN DIPSTICK" / > <statusCode code="completed" /> <effectiveTime value= "956504940171" /> <value unit="" xsi:type="PQ" value="NORMAL" /> <referenceRange> <observationRange> <text>NORMAL</ text> </observationRange> </referenceRange> </ observation> </component> <component> <observation moodCode= "EVN" classCode="OBS"> <templateId root="216.840.1.470227.08.03.22.4.2 " /> <id nullFlavor="NA" /> <code codeSystem="local" code= "BILU" displayName="UA BILIRUBIN DIPSTICK" /> <statusCode code= "completed" /> <effectiveTime value="079123126482" /> <value unit="" xsi:type="PQ" value="NEGATIVE" /> <referenceRange> < observationRange> <text>NEGATIVE</text> </ observationRange> </referenceRange> </observation> </ component> <component> <observation moodCode="EVN" classCode="OBS"> <templateId root="216.840.1.187374.08.03.22.4.2" /> <id nullFlavor="NA" /> <code codeSystem="local" code="ABDELRAHMAN" displayName="UA BLOOD DIPSTICK" /> <statusCode code="completed" /> < effectiveTime value="467216526921" /> <value unit="" xsi:type="PQ" value="NEGATIVE" /> <referenceRange> <observationRange> <text>NEGATIVE</text> </observationRange> </ referenceRange> </observation> </component> <component> <observation moodCode="EVN" classCode="OBS"> <templateId root= "216.840.1.723525.10..22.4.2" /> <id nullFlavor="NA" /> < code codeSystem="local" code="SPGRU" displayName="UA SPECIFIC GRAVITY" /> <statusCode code="completed" /> <effectiveTime value="296064297389 " /> <value unit="" xsi:type="PQ" value="1.007" /> < interpretationCode codeSystem="local" code="*" /> <referenceRange> <observationRange> <text>1.015-1.025</text> </ observationRange> </referenceRange> </observation> </ component> <component> <observation moodCode="EVN" classCode="OBS"> <templateId root="216.840.1.634261.08.03.22.4.2" /> <id nullFlavor="NA" /> <code codeSystem="local" code="COLTON" displayName="UR PH" /> <statusCode code="completed" /> <effectiveTime value= "366283868160" /> <value unit="" xsi:type="PQ" value="5.0" /> <referenceRange> <observationRange> <text>5.0-7.0</text > </observationRange> </referenceRange> </observation > </component> </organizer> </entry> <entry> <organizer moodCode= "EVN" classCode="BATTERY"> <templateId root="[id number]..22.4.1 " /> <id nullFlavor="NA" /> <code codeSystem="local" code="UA" displayName="URINALYSIS, ROUTINE" /> <statusCode code="completed" /> < component> <observation moodCode="EVN" classCode="OBS"> < templateId root="[id number]..22.4.2" /> <id nullFlavor="NA " /> <code codeSystem="local" code="LEUESU" displayName="UA LEUKOCYTE ESTERASE DIPSTICK" /> <statusCode code="completed" /> < effectiveTime value="" /> <value unit="" xsi:type="PQ" value="1+" /> <interpretationCode codeSystem="local" code="*" /> <referenceRange> <observationRange> <text>NEGATIVE</ text> </observationRange> </referenceRange> </ observation> </component> <component> <observation moodCode= "EVN" classCode="OBS"> <templateId root="[id number] " /> <id nullFlavor="NA" /> <code codeSystem="local" code= "NITRIU" displayName="UA NITRITE DIPSTICK" /> <statusCode code= "completed" /> <effectiveTime value="" /> <value unit="" xsi:type="PQ" value="NEGATIVE" /> <referenceRange> < observationRange> <text>NEGATIVE</text> </ observationRange> </referenceRange> </observation> </ component> <component> <observation moodCode="EVN" classCode="OBS"> <templateId root="[id number]...4.2" /> <id nullFlavor="NA" /> <code codeSystem="local" code="PROTEIU" displayName= "UA PROTEIN DIPSTICK" /> <statusCode code="completed" /> < effectiveTime value="" /> <value unit="" xsi:type="PQ" value="TRACE" /> <interpretationCode codeSystem="local" code="*" /> <referenceRange> <observationRange> <text> NEGATIVE</text> </observationRange> </referenceRange> </observation> </component> <component> <observation moodCode ="EVN" classCode="OBS"> <templateId root= "[id number]..4.2" /> <id nullFlavor="NA" /> < code codeSystem="local" code="DGLUU" displayName="UA GLUCOSE DIPSTICK" /> <statusCode code="completed" /> <effectiveTime value=" " /> <value unit="" xsi:type="PQ" value="NEGATIVE" /> < referenceRange> <observationRange> <text>NEGATIVE</text > </observationRange> </referenceRange> </observation > </component> <component> <observation moodCode="EVN" classCode="OBS"> <templateId root="840.1.100075.08.03.22.4.2" /> <id nullFlavor="NA" /> <code codeSystem="local" code="KETONU" displayName="UA KETONE DIPSTICK" /> <statusCode code="completed" /> <effectiveTime value="[id number]" /> <value unit="" xsi:type= "PQ" value="TRACE" /> <interpretationCode codeSystem="local" code="*" / > <referenceRange> <observationRange> <text> NEGATIVE</text> </observationRange> </referenceRange> </observation> </component> <component> <observation moodCode ="EVN" classCode="OBS"> <templateId root= "11.30.840.1.810522.08.03.22.4.2" /> <id nullFlavor="NA" /> < code codeSystem="local" code="UROBILU" displayName="UA UROBILINOGEN DIPSTICK" / > <statusCode code="completed" /> <effectiveTime value= "" /> <value unit="" xsi:type="PQ" value="NORMAL" /> <referenceRange> <observationRange> <text>NORMAL</ text> </observationRange> </referenceRange> </ observation> </component> <component> <observation moodCode= "EVN" classCode="OBS"> <templateId root="216.840.1.592165.10..4.2 " /> <id nullFlavor="NA" /> <code codeSystem="local" code= "BILU" displayName="UA BILIRUBIN DIPSTICK" /> <statusCode code= "completed" /> <effectiveTime value="" /> <value unit="" xsi:type="PQ" value="NEGATIVE" /> <referenceRange> < observationRange> <text>NEGATIVE</text> </ observationRange> </referenceRange> </observation> </ component> <component> <observation moodCode="EVN" classCode="OBS"> <templateId root="216.840.1.254747...4.2" /> <id nullFlavor="NA" /> <code codeSystem="local" code="ABDELRAHMAN" displayName="UA BLOOD DIPSTICK" /> <statusCode code="completed" /> < effectiveTime value="" /> <value unit="" xsi:type="PQ" value="4+" /> <interpretationCode codeSystem="local" code="*" /> <referenceRange> <observationRange> <text>NEGATIVE</ text> </observationRange> </referenceRange> </ observation> </component> <component> <observation moodCode= "EVN" classCode="OBS"> <templateId root="216.840.1.509758...4.2 " /> <id nullFlavor="NA" /> <code codeSystem="local" code= "SPGRU" displayName="UA SPECIFIC GRAVITY" /> <statusCode code= "completed" /> <effectiveTime value="" /> <value unit="" xsi:type="PQ" value="1.010" /> <interpretationCode codeSystem= "local" code="*" /> <referenceRange> <observationRange> <text>1.015-1.025</text> </observationRange> </ referenceRange> </observation> </component> <component> <observation moodCode="EVN" classCode="OBS"> <templateId root= "840.1.986595.08.03.224.2" /> <id nullFlavor="NA" /> < code codeSystem="local" code="COLTON" displayName="UR PH" /> <statusCode code="completed" /> <effectiveTime value="" /> < value unit="" xsi:type="PQ" value="7.0" /> <referenceRange> <observationRange> <text>5.0-7.0</text> </ observationRange> </referenceRange> </observation> </ component> </organizer> </entry> <entry> <organizer moodCode="EVN" classCode="BATTERY"> <templateId root="840.1.786417.08.03.22.4.1" /> <id nullFlavor="NA" /> <code codeSystem="local" code="UAMICRO" displayName="UA MICROSCOPIC" /> <statusCode code="completed" /> < component> <observation moodCode="EVN" classCode="OBS"> < templateId root="840.1.069665.1022.4.2" /> <id nullFlavor="NA " /> <code codeSystem="local" code="EPIU" displayName="UA EPITHELIAL CELLS" /> <statusCode code="completed" /> <effectiveTime value ="[id number]" /> <value unit="epi/hpf" xsi:type="PQ" value="1+" /> <referenceRange> <observationRange> <text>0 - 1+ </text> </observationRange> </referenceRange> </ observation> </component> <component> <observation moodCode= "EVN" classCode="OBS"> <templateId root="2.16.840.1.594268.10..22.4.2 " /> <id nullFlavor="NA" /> <code codeSystem="local" code= "MUCUSU" displayName="UA MUCUS" /> <statusCode code="completed" /> <effectiveTime value="353759301451" /> <value unit="" xsi:type= "PQ" value="2+" /> <interpretationCode codeSystem="local" code="*" /> <referenceRange> <observationRange> <text>NEG TO 1+</text> </observationRange> </referenceRange> </ observation> </component> <component> <observation moodCode= "EVN" classCode="OBS"> <templateId root="2.16.840.1.616739.10..22.4.2 " /> <id nullFlavor="NA" /> <code codeSystem="local" code= "RBCU" displayName="UA RBC" /> <statusCode code="completed" /> <effectiveTime value="220348269760" /> <value unit="rbc/hpf" xsi:type ="PQ" value="PACKED FIELD" /> <interpretationCode codeSystem="local" code="*" /> <referenceRange> <observationRange> <text>0 - 3</text> </observationRange> </referenceRange> </observation> </component> <component> <observation moodCode="EVN" classCode="OBS"> <templateId root= "11.30.840.1.398009.10..22.4.2" /> <id nullFlavor="NA" /> < code codeSystem="local" code="UAVOL" displayName="UA VOLUME FOR EXAM" /> <statusCode code="completed" /> <effectiveTime value="957999455601" /> <value unit="mL" xsi:type="PQ" value="12.0" /> < referenceRange> <observationRange> <text>(12mL STD)</ text> </observationRange> </referenceRange> </ observation> </component> <component> <observation moodCode= "EVN" classCode="OBS"> <templateId root="840.1.132274...4.2 " /> <id nullFlavor="NA" /> <code codeSystem="local" code= "WBCU" displayName="UA WBC" /> <statusCode code="completed" /> <effectiveTime value="348328422983" /> <value unit="wbc/hpf" xsi:type ="PQ" value="2-5" /> <referenceRange> <observationRange> <text>0 - 5</text> </observationRange> </ referenceRange> </observation> </component> </organizer> </entry > <entry> <organizer moodCode="EVN" classCode="BATTERY"> <templateId root="11.30.840.1.238676.10..22.4.1" /> <id nullFlavor="NA" /> <code codeSystem="local" code="iCHEM8" displayName="CHEM/HEM PROFILE-BEDSIDE" /> <statusCode code="completed" /> <component> <observation moodCode= "EVN" classCode="OBS"> <templateId root="11.30.830.1.883503.10.22.4.2 " /> <id nullFlavor="NA" /> <code codeSystem="local" code="K" displayName="POTASSIUM" /> <statusCode code="completed" /> < effectiveTime value="" /> <value unit="mmol/L" xsi:type="PQ " value="3.8" /> <referenceRange> <observationRange> <text>3.5-5.3</text> </observationRange> </ referenceRange> </observation> </component> <component> <observation moodCode="EVN" classCode="OBS"> <templateId root= "216.840.1.693063.08.03.22.4.2" /> <id nullFlavor="NA" /> < code codeSystem="local" code="CMETHOD" displayName="METHOD" /> < statusCode code="completed" /> <effectiveTime value="" /> <value unit="" xsi:type="PQ" value="Bedside" /> < referenceRange> <observationRange> <text /> < /observationRange> </referenceRange> </observation> </ component> <component> <observation moodCode="EVN" classCode="OBS"> <templateId root="16.840.1.542617...22.4.2" /> <id nullFlavor="NA" /> <code codeSystem="local" code="GAP" displayName= "ANION GAP" /> <statusCode code="completed" /> <effectiveTime value="" /> <value unit="mmol/L" xsi:type="PQ" value="19" / > <referenceRange> <observationRange> <text>10- 20</text> </observationRange> </referenceRange> </ observation> </component> <component> <observation moodCode= "EVN" classCode="OBS"> <templateId root="216.840.1.264290.10..22.4.2 " /> <id nullFlavor="NA" /> <code codeSystem="local" code= "HMETHOD" displayName="METHOD" /> <statusCode code="completed" /> <effectiveTime value="" /> <value unit="" xsi:type="PQ " value="Bedside" /> <referenceRange> <observationRange> <text /> </observationRange> </referenceRange> </observation> </component> <component> <observation moodCode="EVN" classCode="OBS"> <templateId root= "16.840.1.291200...4.2" /> <id nullFlavor="NA" /> < code codeSystem="local" code="GLU" displayName="GLUCOSE" /> < statusCode code="completed" /> <effectiveTime value="" /> <value unit="mg/dL" xsi:type="PQ" value="83" /> < referenceRange> <observationRange> <text>70-99</text> </observationRange> </referenceRange> </observation> </component> <component> <observation moodCode="EVN" classCode= "OBS"> <templateId root="16.840.1.349577.08.03.22.4.2" /> < id nullFlavor="NA" /> <code codeSystem="local" code="BUN" displayName= "BLOOD UREA NITROGEN" /> <statusCode code="completed" /> < effectiveTime value="" /> <value unit="mg/dL" xsi:type="PQ " value="8" /> <referenceRange> <observationRange> <text>7-20</text> </observationRange> </referenceRange > </observation> </component> <component> <observation moodCode="EVN" classCode="OBS"> <templateId root= "216.840.1.660663.10..4.2" /> <id nullFlavor="NA" /> < code codeSystem="local" code="CREAT" displayName="CREATININE" /> < statusCode code="completed" /> <effectiveTime value="" /> <value unit="mg/dL" xsi:type="PQ" value="0.7" /> < referenceRange> <observationRange> <text>0.6-1.0</text> </observationRange> </referenceRange> </observation > </component> <component> <observation moodCode="EVN" classCode="OBS"> <templateId root="11.30.840.1.986795.08.03.22.4.2" /> <id nullFlavor="NA" /> <code codeSystem="local" code="HGBT" displayName="HEMOGLOBIN" /> <statusCode code="completed" /> < effectiveTime value="" /> <value unit="gm/dL" xsi:type="PQ " value="13.9" /> <referenceRange> <observationRange> <text>12.0-16.0</text> </observationRange> </ referenceRange> </observation> </component> <component> <observation moodCode="EVN" classCode="OBS"> <templateId root= "16.840.1.307400.10..22.4.2" /> <id nullFlavor="NA" /> < code codeSystem="local" code="HCTT" displayName="HEMATOCRIT" /> < statusCode code="completed" /> <effectiveTime value="" /> <value unit="%" xsi:type="PQ" value="41.0" /> < referenceRange> <observationRange> <text>37.0-47.0</text > </observationRange> </referenceRange> </observation > </component> <component> <observation moodCode="EVN" classCode="OBS"> <templateId root="16.840.1.399288.10...4.2" /> <id nullFlavor="NA" /> <code codeSystem="local" code="NA" displayName="SODIUM" /> <statusCode code="completed" /> < effectiveTime value="862961235166" /> <value unit="mmol/L" xsi:type="PQ " value="139" /> <referenceRange> <observationRange> <text>135-148</text> </observationRange> </ referenceRange> </observation> </component> <component> <observation moodCode="EVN" classCode="OBS"> <templateId root= "11.30.840.1.314611.10..4.2" /> <id nullFlavor="NA" /> < code codeSystem="local" code="CL" displayName="CHLORIDE" /> < statusCode code="completed" /> <effectiveTime value="177180666124" /> <value unit="mmol/L" xsi:type="PQ" value="104" /> < referenceRange> <observationRange> <text>98-110</text> </observationRange> </referenceRange> </observation> </component> <component> <observation moodCode="EVN" classCode ="OBS"> <templateId root="11.30.840.1.662571...4.2" /> < id nullFlavor="NA" /> <code codeSystem="local" code="CO2" displayName= "CARBON DIOXIDE" /> <statusCode code="completed" /> < effectiveTime value="866086796481" /> <value unit="mmol/L" xsi:type="PQ " value="21" /> <referenceRange> <observationRange> <text>21-32</text> </observationRange> </ referenceRange> </observation> </component> <component> <observation moodCode="EVN" classCode="OBS"> <templateId root= "840.1.231386.08.03.22.4.2" /> <id nullFlavor="NA" /> < code codeSystem="local" code="CAION" displayName="CALCIUM IONIZED" /> < statusCode code="completed" /> <effectiveTime value="" /> <value unit="mg/dL" xsi:type="PQ" value="4.7" /> < referenceRange> <observationRange> <text>4.5-5.3</text> </observationRange> </referenceRange> </observation > </component> </organizer> </entry> <entry> <organizer moodCode= "EVN" classCode="BATTERY"> <templateId root="840.1.954974.08.03.22.4.1 " /> <id nullFlavor="NA" /> <code codeSystem="local" code="HCGQNT" displayName="HCG QUANT INTACT" /> <statusCode code="completed" /> < component> <observation moodCode="EVN" classCode="OBS"> < templateId root="11.30.840.1.327164.08.03.22.4.2" /> <id nullFlavor="NA " /> <code codeSystem="local" code="HCGQNT" displayName="HCG QUANT INTACT" /> <statusCode code="completed" /> <effectiveTime value="445639831262" /> <value unit="mIU/mL" xsi:type="PQ" value="3906 " /> <interpretationCode codeSystem="local" code="*" /> < referenceRange> <observationRange> <text /> < /observationRange> </referenceRange> </observation> </ component> </organizer> </entry> <entry> <organizer moodCode="EVN" classCode="BATTERY"> <templateId root="16.840.1.220468.10...4.1" /> <id nullFlavor="NA" /> <code codeSystem="local" code="Z6406" displayName="Cytogenetics" /> <statusCode code="completed" /> < component> <observation moodCode="EVN" classCode="OBS"> < templateId root="16.840.1.448006.10...4.2" /> <id nullFlavor="NA " /> <code codeSystem="local" code="Z6406" displayName="Cytogenetics" / > <statusCode code="completed" /> <effectiveTime value= "749130350323" /> <value unit="" xsi:type="PQ" value="SEE IMAGE" /> <referenceRange> <observationRange> <text /> </observationRange> </referenceRange> </observation> </component> <component> <observation moodCode="EVN" classCode= "OBS"> <templateId root="11.30.840.1.292109.08.03.22.4.2" /> < id nullFlavor="NA" /> <code codeSystem="local" code="Z6406" displayName ="Cytogenetics" /> <statusCode code="completed" /> < effectiveTime value="665697044910" /> <value unit="NA" xsi:type="PQ" value="SEE IMAGE" /> <referenceRange> <observationRange> <text /> </observationRange> </referenceRange> </observation> </component> </organizer> </entry> <entry> < organizer moodCode="EVN" classCode="BATTERY"> <templateId root= "2.16.840.1.660356.10..22.4.1" /> <id nullFlavor="NA" /> <code codeSystem="local" code="CBCWD" displayName="CBC With Platelet and Differential " /> <statusCode code="completed" /> <component> <observation moodCode="EVN" classCode="OBS"> <templateId root= "2.16.840.1.277508.10...4.2" /> <id nullFlavor="NA" /> < code codeSystem="local" code="ABASR" displayName="Absolute Basophils" /> <statusCode code="completed" /> <effectiveTime value="147362970531" /> <value unit="10*3" xsi:type="PQ" value="0.03" /> < referenceRange> <observationRange> <text>0.00-0.20</text > </observationRange> </referenceRange> </observation > </component> <component> <observation moodCode="EVN" classCode="OBS"> <templateId root="2.16.840.1.348669.10...4.2" /> <id nullFlavor="NA" /> <code codeSystem="local" code="AEOSR" displayName="Absolute Eosinophils" /> <statusCode code="completed" /> <effectiveTime value="986592272112" /> <value unit="10*3" xsi: type="PQ" value="0.71" /> <interpretationCode codeSystem="local" code= "*" /> <referenceRange> <observationRange> < text>0.00-0.50</text> </observationRange> </referenceRange> </observation> </component> <component> <observation moodCode="EVN" classCode="OBS"> <templateId root= "16.840.1.416264.10.22.4.2" /> <id nullFlavor="NA" /> < code codeSystem="local" code="ALYMR" displayName="Absolute Lymphocytes" /> <statusCode code="completed" /> <effectiveTime value=" " /> <value unit="10*3" xsi:type="PQ" value="2.35" /> < referenceRange> <observationRange> <text>0.80-3.30</text > </observationRange> </referenceRange> </observation > </component> <component> <observation moodCode="EVN" classCode="OBS"> <templateId root="11.30.840.1.131523.08.03.22.4.2" /> <id nullFlavor="NA" /> <code codeSystem="local" code="AMONR" displayName="Absolute Monocytes" /> <statusCode code="completed" /> <effectiveTime value="" /> <value unit="10*3" xsi: type="PQ" value="0.41" /> <referenceRange> <observationRange > <text>0.30-1.00</text> </observationRange> </ referenceRange> </observation> </component> <component> <observation moodCode="EVN" classCode="OBS"> <templateId root= "11.30.840.1.957179.10.22.4.2" /> <id nullFlavor="NA" /> < code codeSystem="local" code="ASEGR" displayName="Absolute Neutrophils" /> <statusCode code="completed" /> <effectiveTime value=" " /> <value unit="10*3" xsi:type="PQ" value="3.37" /> < referenceRange> <observationRange> <text>1.90-7.00</text > </observationRange> </referenceRange> </observation > </component> <component> <observation moodCode="EVN" classCode="OBS"> <templateId root="11.30.840.1.074586.10.20.22.4.2" /> <id nullFlavor="NA" /> <code codeSystem="local" code="BASOR" displayName="Basophils" /> <statusCode code="completed" /> < effectiveTime value="717355382006" /> <value unit="%" xsi:type="PQ " value="0" /> <referenceRange> <observationRange> <text>0-2</text> </observationRange> </referenceRange> </observation> </component> <component> <observation moodCode="EVN" classCode="OBS"> <templateId root= "11.30.840.1.374852.10.22.4.2" /> <id nullFlavor="NA" /> < code codeSystem="local" code="EOSR" displayName="Eosinophils" /> < statusCode code="completed" /> <effectiveTime value="713085978033" /> <value unit="%" xsi:type="PQ" value="10" /> < interpretationCode codeSystem="local" code="*" /> <referenceRange> <observationRange> <text>0-4</text> </ observationRange> </referenceRange> </observation> </ component> <component> <observation moodCode="EVN" classCode="OBS"> <templateId root="11.30.840.1.725650.10.20.22.4.2" /> <id nullFlavor="NA" /> <code codeSystem="local" code="HCT" displayName="HCT " /> <statusCode code="completed" /> <effectiveTime value= "464272746464" /> <value unit="%" xsi:type="PQ" value="33.8" /> <interpretationCode codeSystem="local" code="*" /> < referenceRange> <observationRange> <text>37.0-47.0</text > </observationRange> </referenceRange> </observation > </component> <component> <observation moodCode="EVN" classCode="OBS"> <templateId root="2.16.840.1.032714.10.20.22.4.2" /> <id nullFlavor="NA" /> <code codeSystem="local" code="HGB" displayName="HGB" /> <statusCode code="completed" /> < effectiveTime value="967991852429" /> <value unit="g/dL" xsi:type="PQ" value="11.2" /> <interpretationCode codeSystem="local" code="*" /> <referenceRange> <observationRange> <text>12.0- 16.0</text> </observationRange> </referenceRange> </ observation> </component> <component> <observation moodCode= "EVN" classCode="OBS"> <templateId root="2.16.840.1.563282.10.20.22.4.2 " /> <id nullFlavor="NA" /> <code codeSystem="local" code= "IMGA" displayName="Immature Granulocytes" /> <statusCode code= "completed" /> <effectiveTime value="317632596451" /> <value unit="%" xsi:type="PQ" value="0.1" /> <referenceRange> < observationRange> <text>0.0-1.0</text> </ observationRange> </referenceRange> </observation> </ component> <component> <observation moodCode="EVN" classCode="OBS"> <templateId root="216.840.1.534566.10.22.4.2" /> <id nullFlavor="NA" /> <code codeSystem="local" code="LYMPR" displayName= "Lymphocytes" /> <statusCode code="completed" /> < effectiveTime value="383768679697" /> <value unit="%" xsi:type="PQ " value="34" /> <referenceRange> <observationRange> <text>20-46</text> </observationRange> </ referenceRange> </observation> </component> <component> <observation moodCode="EVN" classCode="OBS"> <templateId root= "16.840.1.142956.10..4.2" /> <id nullFlavor="NA" /> < code codeSystem="local" code="MCH" displayName="MCH" /> <statusCode code="completed" /> <effectiveTime value="959906966908" /> < value unit="pg" xsi:type="PQ" value="30.6" /> <referenceRange> <observationRange> <text>27.0-32.0</text> </ observationRange> </referenceRange> </observation> </ component> <component> <observation moodCode="EVN" classCode="OBS"> <templateId root="16.840.1.116908.10.2022.4.2" /> <id nullFlavor="NA" /> <code codeSystem="local" code="MCHC" displayName= "MCHC" /> <statusCode code="completed" /> <effectiveTime value ="464671426906" /> <value unit="g/dL" xsi:type="PQ" value="33.1" /> <referenceRange> <observationRange> <text>32.0- 36.0</text> </observationRange> </referenceRange> </ observation> </component> <component> <observation moodCode= "EVN" classCode="OBS"> <templateId root="11.30.840.1.468275.10..22.4.2 " /> <id nullFlavor="NA" /> <code codeSystem="local" code="MCV " displayName="MCV" /> <statusCode code="completed" /> < effectiveTime value="334894118953" /> <value unit="fL" xsi:type="PQ" value="92.3" /> <referenceRange> <observationRange> <text>82.0-99.0</text> </observationRange> </ referenceRange> </observation> </component> <component> <observation moodCode="EVN" classCode="OBS"> <templateId root= "11.30.840.1.063731.08.03.22.4.2" /> <id nullFlavor="NA" /> < code codeSystem="local" code="MONOR" displayName="Monocytes" /> < statusCode code="completed" /> <effectiveTime value="631583872982" /> <value unit="%" xsi:type="PQ" value="6" /> <referenceRange > <observationRange> <text>4-11</text> </ observationRange> </referenceRange> </observation> </ component> <component> <observation moodCode="EVN" classCode="OBS"> <templateId root="11.30.840.1.313896....4.2" /> <id nullFlavor="NA" /> <code codeSystem="local" code="MPV" displayName="MPV " /> <statusCode code="completed" /> <effectiveTime value= "080615607299" /> <value unit="fL" xsi:type="PQ" value="9.9" /> <referenceRange> <observationRange> <text>9.4-12.4</ text> </observationRange> </referenceRange> </ observation> </component> <component> <observation moodCode= "EVN" classCode="OBS"> <templateId root="216.840.1.378707.10.22.4.2 " /> <id nullFlavor="NA" /> <code codeSystem="local" code= "SEGR" displayName="Neutrophils" /> <statusCode code="completed" /> <effectiveTime value="556299976289" /> <value unit="%" xsi: type="PQ" value="49" /> <interpretationCode codeSystem="local" code="* " /> <referenceRange> <observationRange> <text> 51-75</text> </observationRange> </referenceRange> </ observation> </component> <component> <observation moodCode= "EVN" classCode="OBS"> <templateId root="11.30.840.1.668826.10.4.2 " /> <id nullFlavor="NA" /> <code codeSystem="local" code="PLT " displayName="Platelet Count" /> <statusCode code="completed" /> <effectiveTime value="623911228223" /> <value unit="K/uL" xsi:type ="PQ" value="308" /> <referenceRange> <observationRange> <text>150-400</text> </observationRange> </ referenceRange> </observation> </component> <component> <observation moodCode="EVN" classCode="OBS"> <templateId root= "16.840.1.998023.10.20.22.4.2" /> <id nullFlavor="NA" /> < code codeSystem="local" code="RBC" displayName="RBC" /> <statusCode code="completed" /> <effectiveTime value="064226324628" /> < value unit="10*6/uL" xsi:type="PQ" value="3.66" /> <interpretationCode codeSystem="local" code="*" /> <referenceRange> < observationRange> <text>4.00-5.20</text> </ observationRange> </referenceRange> </observation> </ component> <component> <observation moodCode="EVN" classCode="OBS"> <templateId root="2.16.840.1.589978....4.2" /> <id nullFlavor="NA" /> <code codeSystem="local" code="RDW" displayName="RDW " /> <statusCode code="completed" /> <effectiveTime value= "509231536061" /> <value unit="%" xsi:type="PQ" value="12.8" /> <referenceRange> <observationRange> <text>11.5- 14.5</text> </observationRange> </referenceRange> </ observation> </component> <component> <observation moodCode= "EVN" classCode="OBS"> <templateId root="2.16.840.1.670979...22.4.2 " /> <id nullFlavor="NA" /> <code codeSystem="local" code= "WBCIR" displayName="WBC" /> <statusCode code="completed" /> < effectiveTime value="736508263108" /> <value unit="K/uL" xsi:type="PQ" value="6.9" /> <referenceRange> <observationRange> <text>4.8-10.8</text> </observationRange> </ referenceRange> </observation> </component> </organizer> </entry > <entry> <organizer moodCode="EVN" classCode="BATTERY"> <templateId root="216.840.1.511805.10...4.1" /> <id nullFlavor="NA" /> <code codeSystem="local" code="HCGQ" displayName="HCG Quantitative" /> < statusCode code="completed" /> <component> <observation moodCode= "EVN" classCode="OBS"> <templateId root="11.30.840.1.966363.08.03.22.4.2 " /> <id nullFlavor="NA" /> <code codeSystem="local" code= "HCGQ" displayName="HCG Quantitative" /> <statusCode code="completed" / > <effectiveTime value="651372593608" /> <value unit="mIU/mL" xsi:type="PQ" value="1174" /> <referenceRange> < observationRange> <text /> </observationRange> </referenceRange> </observation> </component> </organizer> </ entry> <entry> <organizer moodCode="EVN" classCode="BATTERY"> < templateId root="11.30.840.1.149969.08.03.22.4.1" /> <id nullFlavor="NA" /> <code codeSystem="local" code="PTPTT" displayName="PTT/PT (INR)" /> < statusCode code="completed" /> <component> <observation moodCode= "EVN" classCode="OBS"> <templateId root="16.840.1.109955....4.2 " /> <id nullFlavor="NA" /> <code codeSystem="local" code="INR " displayName="INR" /> <statusCode code="completed" /> < effectiveTime value="974300862933" /> <value unit="NA" xsi:type="PQ" value="1.1" /> <referenceRange> <observationRange> <text>0.9-1.2</text> </observationRange> </ referenceRange> </observation> </component> <component> <observation moodCode="EVN" classCode="OBS"> <templateId root= "11.30.840.1.037093.1022.4.2" /> <id nullFlavor="NA" /> < code codeSystem="local" code="PTT" displayName="PTT" /> <statusCode code="completed" /> <effectiveTime value="[id number]" /> < value unit="seconds" xsi:type="PQ" value="30.9" /> <referenceRange> <observationRange> <text>25.0-35.0</text> </ observationRange> </referenceRange> </observation> </ component> </organizer> </entry> <entry> <organizer moodCode="EVN" classCode="BATTERY"> <templateId root="840.1.208883.1022.4.1" /> <id nullFlavor="NA" /> <code codeSystem="local" code="CBCND" displayName="CBC With Platelet No Differential" /> <statusCode code= "completed" /> <component> <observation moodCode="EVN" classCode= "OBS"> <templateId root="11.30.840.1.755908.1022.4.2" /> < id nullFlavor="NA" /> <code codeSystem="local" code="HCT" displayName= "HCT" /> <statusCode code="completed" /> <effectiveTime value= "703790287338" /> <value unit="%" xsi:type="PQ" value="29.3" /> <interpretationCode codeSystem="local" code="*" /> < referenceRange> <observationRange> <text>37.0-47.0</text > </observationRange> </referenceRange> </observation > </component> <component> <observation moodCode="EVN" classCode="OBS"> <templateId root="216.840.1.007181.10.20.22.4.2" /> <id nullFlavor="NA" /> <code codeSystem="local" code="HGB" displayName="HGB" /> <statusCode code="completed" /> < effectiveTime value="158574013172" /> <value unit="g/dL" xsi:type="PQ" value="9.5" /> <interpretationCode codeSystem="local" code="*" /> <referenceRange> <observationRange> <text>12.0-16.0 </text> </observationRange> </referenceRange> </ observation> </component> <component> <observation moodCode= "EVN" classCode="OBS"> <templateId root="11.30.840.1.723548...4.2 " /> <id nullFlavor="NA" /> <code codeSystem="local" code="MCH " displayName="MCH" /> <statusCode code="completed" /> < effectiveTime value="" /> <value unit="pg" xsi:type="PQ" value="30.5" /> <referenceRange> <observationRange> <text>27.0-32.0</text> </observationRange> </ referenceRange> </observation> </component> <component> <observation moodCode="EVN" classCode="OBS"> <templateId root= "11.30.840.1.077089.10.20.22.4.2" /> <id nullFlavor="NA" /> < code codeSystem="local" code="MCHC" displayName="MCHC" /> <statusCode code="completed" /> <effectiveTime value="" /> < value unit="g/dL" xsi:type="PQ" value="32.4" /> <referenceRange> <observationRange> <text>32.0-36.0</text> </ observationRange> </referenceRange> </observation> </ component> <component> <observation moodCode="EVN" classCode="OBS"> <templateId root="216.840.1.015889.10.20.22.4.2" /> <id nullFlavor="NA" /> <code codeSystem="local" code="MCV" displayName="MCV " /> <statusCode code="completed" /> <effectiveTime value= "" /> <value unit="fL" xsi:type="PQ" value="94.2" /> <referenceRange> <observationRange> <text>82.0-99.0< /text> </observationRange> </referenceRange> </ observation> </component> <component> <observation moodCode= "EVN" classCode="OBS"> <templateId root="216.840.1.798539.10.20.22.4.2 " /> <id nullFlavor="NA" /> <code codeSystem="local" code="MPV " displayName="MPV" /> <statusCode code="completed" /> < effectiveTime value="" /> <value unit="fL" xsi:type="PQ" value="9.4" /> <referenceRange> <observationRange> <text>9.4-12.4</text> </observationRange> </ referenceRange> </observation> </component> <component> <observation moodCode="EVN" classCode="OBS"> <templateId root= "216.840.1.227670.2022.4.2" /> <id nullFlavor="NA" /> < code codeSystem="local" code="PLT" displayName="Platelet Count" /> < statusCode code="completed" /> <effectiveTime value="" /> <value unit="K/uL" xsi:type="PQ" value="239" /> < referenceRange> <observationRange> <text>150-400</text> </observationRange> </referenceRange> </observation > </component> <component> <observation moodCode="EVN" classCode="OBS"> <templateId root="16.840.1.542392.22.4.2" /> <id nullFlavor="NA" /> <code codeSystem="local" code="RBC" displayName="RBC" /> <statusCode code="completed" /> < effectiveTime value="" /> <value unit="10*6/uL" xsi:type= "PQ" value="3.11" /> <interpretationCode codeSystem="local" code="*" / > <referenceRange> <observationRange> <text> 4.00-5.20</text> </observationRange> </referenceRange> </observation> </component> <component> <observation moodCode="EVN" classCode="OBS"> <templateId root= "16.840.1.050450.102022.4.2" /> <id nullFlavor="NA" /> < code codeSystem="local" code="RDW" displayName="RDW" /> <statusCode code="completed" /> <effectiveTime value="" /> < value unit="%" xsi:type="PQ" value="12.9" /> <referenceRange> <observationRange> <text>11.5-14.5</text> </ observationRange> </referenceRange> </observation> </ component> <component> <observation moodCode="EVN" classCode="OBS"> <templateId root="2.16.840.1.821041.10..4.2" /> <id nullFlavor="NA" /> <code codeSystem="local" code="WBCIR" displayName= "WBC" /> <statusCode code="completed" /> <effectiveTime value= "727031959665" /> <value unit="K/uL" xsi:type="PQ" value="5.4" /> <referenceRange> <observationRange> <text>4.8-10.8< /text> </observationRange> </referenceRange> </ observation> </component> </organizer> </entry> <entry> <organizer moodCode="EVN" classCode="BATTERY"> <templateId root= "216.840.1.686867.10..22.4.1" /> <id nullFlavor="NA" /> <code codeSystem="local" code="CBCND" displayName="CBC With Platelet No Differential" /> <statusCode code="completed" /> <component> <observation moodCode="EVN" classCode="OBS"> <templateId root= "2.16.840.1.882483.10..22.4.2" /> <id nullFlavor="NA" /> < code codeSystem="local" code="HCT" displayName="HCT" /> <statusCode code="completed" /> <effectiveTime value="[id number]" /> < value unit="%" xsi:type="PQ" value="28.9" /> <interpretationCode codeSystem="local" code="*" /> <referenceRange> < observationRange> <text>37.0-47.0</text> </ observationRange> </referenceRange> </observation> </ component> <component> <observation moodCode="EVN" classCode="OBS"> <templateId root="216.840.1.563360.10...4.2" /> <id nullFlavor="NA" /> <code codeSystem="local" code="HGB" displayName="HGB " /> <statusCode code="completed" /> <effectiveTime value= "" /> <value unit="g/dL" xsi:type="PQ" value="9.4" /> <interpretationCode codeSystem="local" code="*" /> <referenceRange > <observationRange> <text>12.0-16.0</text> < /observationRange> </referenceRange> </observation> </ component> <component> <observation moodCode="EVN" classCode="OBS"> <templateId root="16.840.1.333587.08.03.22.4.2" /> <id nullFlavor="NA" /> <code codeSystem="local" code="MCH" displayName="MCH " /> <statusCode code="completed" /> <effectiveTime value= "" /> <value unit="pg" xsi:type="PQ" value="30.4" /> <referenceRange> <observationRange> <text>27.0-32.0< /text> </observationRange> </referenceRange> </ observation> </component> <component> <observation moodCode= "EVN" classCode="OBS"> <templateId root="216.840.1.040092...4.2 " /> <id nullFlavor="NA" /> <code codeSystem="local" code= "MCHC" displayName="MCHC" /> <statusCode code="completed" /> < effectiveTime value="176201338949" /> <value unit="g/dL" xsi:type="PQ" value="32.5" /> <referenceRange> <observationRange> <text>32.0-36.0</text> </observationRange> </ referenceRange> </observation> </component> <component> <observation moodCode="EVN" classCode="OBS"> <templateId root= "216.840.1.981120.10..22.4.2" /> <id nullFlavor="NA" /> < code codeSystem="local" code="MCV" displayName="MCV" /> <statusCode code="completed" /> <effectiveTime value="" /> < value unit="fL" xsi:type="PQ" value="93.5" /> <referenceRange> <observationRange> <text>82.0-99.0</text> </ observationRange> </referenceRange> </observation> </ component> <component> <observation moodCode="EVN" classCode="OBS"> <templateId root="11.30.840.1.837962.10..4.2" /> <id nullFlavor="NA" /> <code codeSystem="local" code="MPV" displayName="MPV " /> <statusCode code="completed" /> <effectiveTime value= "" /> <value unit="fL" xsi:type="PQ" value="9.7" /> <referenceRange> <observationRange> <text>9.4-12.4</ text> </observationRange> </referenceRange> </ observation> </component> <component> <observation moodCode= "EVN" classCode="OBS"> <templateId root="11.30.840.1.055455.10..22.4.2 " /> <id nullFlavor="NA" /> <code codeSystem="local" code="PLT " displayName="Platelet Count" /> <statusCode code="completed" /> <effectiveTime value="" /> <value unit="K/uL" xsi:type ="PQ" value="225" /> <referenceRange> <observationRange> <text>150-400</text> </observationRange> </ referenceRange> </observation> </component> <component> <observation moodCode="EVN" classCode="OBS"> <templateId root= "2.16.840.1.390456.10.20.22.4.2" /> <id nullFlavor="NA" /> < code codeSystem="local" code="RBC" displayName="RBC" /> <statusCode code="completed" /> <effectiveTime value="" /> < value unit="10*6/uL" xsi:type="PQ" value="3.09" /> <interpretationCode codeSystem="local" code="*" /> <referenceRange> < observationRange> <text>4.00-5.20</text> </ observationRange> </referenceRange> </observation> </ component> <component> <observation moodCode="EVN" classCode="OBS"> <templateId root="2.16.840.1.891616.10.20.22.4.2" /> <id nullFlavor="NA" /> <code codeSystem="local" code="RDW" displayName="RDW " /> <statusCode code="completed" /> <effectiveTime value= "" /> <value unit="%" xsi:type="PQ" value="12.6" /> <referenceRange> <observationRange> <text>11.5- 14.5</text> </observationRange> </referenceRange> </ observation> </component> <component> <observation moodCode= "EVN" classCode="OBS"> <templateId root="11.30.840.1.902916.10..22.4.2 " /> <id nullFlavor="NA" /> <code codeSystem="local" code= "WBCIR" displayName="WBC" /> <statusCode code="completed" /> < effectiveTime value="864300877302" /> <value unit="K/uL" xsi:type="PQ" value="5.0" /> <referenceRange> <observationRange> <text>4.8-10.8</text> </observationRange> </ referenceRange> </observation> </component> </organizer> </entry > <entry> <organizer moodCode="EVN" classCode="BATTERY"> <templateId root="11.30.840.1.991218.10..22.4.1" /> <id nullFlavor="NA" /> <code codeSystem="local" code="GLUN" displayName="Glucose NPT" /> <statusCode code="completed" /> <component> <observation moodCode="EVN" classCode="OBS"> <templateId root="11.30.840.1.226367.10..22.4.2" /> <id nullFlavor="NA" /> <code codeSystem="local" code="GLUN" displayName="Glucose NPT" /> <statusCode code="completed" /> <effectiveTime value="350465273102" /> <value unit="mg/dL" xsi:type="PQ " value="84" /> <referenceRange> <observationRange> <text>70-100</text> </observationRange> </ referenceRange> </observation> </component> </organizer> </entry > <entry> <organizer moodCode="EVN" classCode="BATTERY"> <templateId root="11.30.840.1.615252.22.4.1" /> <id nullFlavor="NA" /> <code codeSystem="local" code="BMP" displayName="Basic Metabolic Panel (BMP)" /> <statusCode code="completed" /> <component> <observation moodCode= "EVN" classCode="OBS"> <templateId root="840.1.931949.08.03.22.4.2 " /> <id nullFlavor="NA" /> <code codeSystem="local" code= "AGAP" displayName="Anion Gap" /> <statusCode code="completed" /> <effectiveTime value="" /> <value unit="NA" xsi:type= "PQ" value="9" /> <referenceRange> <observationRange> <text>3-20</text> </observationRange> </ referenceRange> </observation> </component> <component> <observation moodCode="EVN" classCode="OBS"> <templateId root= "840.1.669176.08.03.22.4.2" /> <id nullFlavor="NA" /> < code codeSystem="local" code="BUN" displayName="BUN" /> <statusCode code="completed" /> <effectiveTime value="243924131732" /> < value unit="mg/dL" xsi:type="PQ" value="8" /> <referenceRange> <observationRange> <text>4-20</text> </ observationRange> </referenceRange> </observation> </ component> <component> <observation moodCode="EVN" classCode="OBS"> <templateId root="840.1.962789.08.03.22.4.2" /> <id nullFlavor="NA" /> <code codeSystem="local" code="CA" displayName= "Calcium" /> <statusCode code="completed" /> <effectiveTime value="747795868601" /> <value unit="mg/dL" xsi:type="PQ" value="8.8" / > <referenceRange> <observationRange> <text>8.6 -10.0</text> </observationRange> </referenceRange> </ observation> </component> <component> <observation moodCode= "EVN" classCode="OBS"> <templateId root="11.30.840.1.211381.22.4.2 " /> <id nullFlavor="NA" /> <code codeSystem="local" code="CL " displayName="Chloride" /> <statusCode code="completed" /> < effectiveTime value="205174568830" /> <value unit="mEq/L" xsi:type="PQ " value="108" /> <referenceRange> <observationRange> <text>99-109</text> </observationRange> </ referenceRange> </observation> </component> <component> <observation moodCode="EVN" classCode="OBS"> <templateId root= "11.30.840.1.020821.22.4.2" /> <id nullFlavor="NA" /> < code codeSystem="local" code="CO2" displayName="CO2" /> <statusCode code="completed" /> <effectiveTime value="364057627883" /> < value unit="mEq/L" xsi:type="PQ" value="22" /> <referenceRange> <observationRange> <text>22-32</text> </ observationRange> </referenceRange> </observation> </ component> <component> <observation moodCode="EVN" classCode="OBS"> <templateId root="11.30.840.1.751695.2022.4.2" /> <id nullFlavor="NA" /> <code codeSystem="local" code="CREAT" displayName= "Creatinine" /> <statusCode code="completed" /> < effectiveTime value="354998391793" /> <value unit="mg/dL" xsi:type="PQ " value="0.77" /> <referenceRange> <observationRange> <text>0.44-1.03</text> </observationRange> </ referenceRange> </observation> </component> <component> <observation moodCode="EVN" classCode="OBS"> <templateId root= "216.840.1.793788.10..22.4.2" /> <id nullFlavor="NA" /> < code codeSystem="local" code="GLU" displayName="Glucose" /> < statusCode code="completed" /> <effectiveTime value="619969480811" /> <value unit="mg/dL" xsi:type="PQ" value="104" /> < interpretationCode codeSystem="local" code="*" /> <referenceRange> <observationRange> <text>70-100</text> </ observationRange> </referenceRange> </observation> </ component> <component> <observation moodCode="EVN" classCode="OBS"> <templateId root="216.840.1.525309.10..22.4.2" /> <id nullFlavor="NA" /> <code codeSystem="local" code="K" displayName= "Potassium" /> <statusCode code="completed" /> <effectiveTime value="454017834084" /> <value unit="mEq/L" xsi:type="PQ" value="3.6" / > <referenceRange> <observationRange> <text>3.6 -5.1</text> </observationRange> </referenceRange> </ observation> </component> <component> <observation moodCode= "EVN" classCode="OBS"> <templateId root="11.30.840.1.395800.10..4.2 " /> <id nullFlavor="NA" /> <code codeSystem="local" code="NA " displayName="Sodium" /> <statusCode code="completed" /> < effectiveTime value="866244127968" /> <value unit="mEq/L" xsi:type="PQ " value="139" /> <referenceRange> <observationRange> <text>136-144</text> </observationRange> </ referenceRange> </observation> </component> </organizer> </entry > <entry> <organizer moodCode="EVN" classCode="BATTERY"> <templateId root="11.30.840.1.960484.08.03.22.4.1" /> <id nullFlavor="NA" /> <code codeSystem="local" code="GFR" displayName="eGFR" /> <statusCode code= "completed" /> <component> <observation moodCode="EVN" classCode= "OBS"> <templateId root="16.840.1.082893.08.03.22.4.2" /> < id nullFlavor="NA" /> <code codeSystem="local" code="GFR" displayName= "eGFR" /> <statusCode code="completed" /> <effectiveTime value ="896589929416" /> <value unit="NA" xsi:type="PQ" value=">60" /> <referenceRange> <observationRange> <text>>60< /text> </observationRange> </referenceRange> </ observation> </component> </organizer> </entry> <entry> <organizer moodCode="EVN" classCode="BATTERY"> <templateId root= "16.840.1.730554.08.03.22.4.1" /> <id nullFlavor="NA" /> <code codeSystem="local" code="UA" displayName="Urinalysis with reflex microscopic" / > <statusCode code="completed" /> <component> <observation moodCode="EVN" classCode="OBS"> <templateId root= "11.30.840.1.782541.08.03.22.4.2" /> <id nullFlavor="NA" /> < code codeSystem="local" code="UAPP" displayName="Appearance" /> < statusCode code="completed" /> <effectiveTime value="486430483634" /> <value unit="NA" xsi:type="PQ" value="Cloudy" /> < interpretationCode codeSystem="local" code="*" /> <referenceRange> <observationRange> <text /> </observationRange> </referenceRange> </observation> </component> < component> <observation moodCode="EVN" classCode="OBS"> < templateId root="840.1.671505.08.03.224.2" /> <id nullFlavor="NA " /> <code codeSystem="local" code="UBIL" displayName="Bilirubin" /> <statusCode code="completed" /> <effectiveTime value= "403079933618" /> <value unit="NA" xsi:type="PQ" value="Negative" /> <referenceRange> <observationRange> <text> Negative</text> </observationRange> </referenceRange> </observation> </component> <component> <observation moodCode ="EVN" classCode="OBS"> <templateId root= "11.30.840.1.819828.08.03.22.4.2" /> <id nullFlavor="NA" /> < code codeSystem="local" code="UBLD" displayName="Blood" /> <statusCode code="completed" /> <effectiveTime value="" /> < value unit="NA" xsi:type="PQ" value="Negative" /> <referenceRange> <observationRange> <text>Negative</text> </ observationRange> </referenceRange> </observation> </ component> <component> <observation moodCode="EVN" classCode="OBS"> <templateId root="16.840.1.571209...4.2" /> <id nullFlavor="NA" /> <code codeSystem="local" code="UCOLR" displayName= "Color" /> <statusCode code="completed" /> <effectiveTime value="" /> <value unit="NA" xsi:type="PQ" value="Yellow" / > <referenceRange> <observationRange> <text /> </observationRange> </referenceRange> </observation > </component> <component> <observation moodCode="EVN" classCode="OBS"> <templateId root="11.30.840.1.506215.08.03.22.4.2" /> <id nullFlavor="NA" /> <code codeSystem="local" code="UGLU" displayName="Glucose, Urine" /> <statusCode code="completed" /> <effectiveTime value="" /> <value unit="" xsi:type="PQ" value="Negative" /> <referenceRange> <observationRange> <text>Negative</text> </observationRange> </ referenceRange> </observation> </component> <component> <observation moodCode="EVN" classCode="OBS"> <templateId root= "16.840.1.830102...4.2" /> <id nullFlavor="NA" /> < code codeSystem="local" code="UKET" displayName="Ketones" /> < statusCode code="completed" /> <effectiveTime value="498078955730" /> <value unit="" xsi:type="PQ" value="Negative" /> < referenceRange> <observationRange> <text>Negative</text > </observationRange> </referenceRange> </observation > </component> <component> <observation moodCode="EVN" classCode="OBS"> <templateId root="16.840.1.406651.08.03.22.4.2" /> <id nullFlavor="NA" /> <code codeSystem="local" code="ULEU" displayName="Leukocyte Esterase" /> <statusCode code="completed" /> <effectiveTime value="737877186512" /> <value unit="NA" xsi:type ="PQ" value="Negative" /> <referenceRange> <observationRange > <text>Negative</text> </observationRange> </ referenceRange> </observation> </component> <component> <observation moodCode="EVN" classCode="OBS"> <templateId root= "11.30.840.1.496065.08.03.22.4.2" /> <id nullFlavor="NA" /> < code codeSystem="local" code="UNIT" displayName="Nitrites" /> < statusCode code="completed" /> <effectiveTime value="434823929748" /> <value unit="NA" xsi:type="PQ" value="Negative" /> < referenceRange> <observationRange> <text>Negative</text > </observationRange> </referenceRange> </observation > </component> <component> <observation moodCode="EVN" classCode="OBS"> <templateId root="11.30.840.1.318375.08.03.22.4.2" /> <id nullFlavor="NA" /> <code codeSystem="local" code="UPH" displayName="pH" /> <statusCode code="completed" /> < effectiveTime value="893565928912" /> <value unit="NA" xsi:type="PQ" value="7.0" /> <referenceRange> <observationRange> <text>5.0-8.0</text> </observationRange> </ referenceRange> </observation> </component> <component> <observation moodCode="EVN" classCode="OBS"> <templateId root= "16.840.1.289038.10..22.4.2" /> <id nullFlavor="NA" /> < code codeSystem="local" code="UPRO" displayName="Protein" /> < statusCode code="completed" /> <effectiveTime value="443214702706" /> <value unit="NA" xsi:type="PQ" value="Negative" /> < referenceRange> <observationRange> <text>Negative</text > </observationRange> </referenceRange> </observation > </component> <component> <observation moodCode="EVN" classCode="OBS"> <templateId root="16.840.1.719689.10.20.22.4.2" /> <id nullFlavor="NA" /> <code codeSystem="local" code="USPG" displayName="Specific Homer" /> <statusCode code="completed" /> <effectiveTime value="182327778914" /> <value unit="NA" xsi:type= "PQ" value="1.020" /> <referenceRange> <observationRange> <text>1.003-1.030</text> </observationRange> </ referenceRange> </observation> </component> <component> <observation moodCode="EVN" classCode="OBS"> <templateId root= "16840.1.820250.08.03.22.4.2" /> <id nullFlavor="NA" /> < code codeSystem="local" code="UTYP" displayName="UA Collection type" /> <statusCode code="completed" /> <effectiveTime value="693078023713" / > <value unit="NA" xsi:type="PQ" value="Clean Catch" /> < referenceRange> <observationRange> <text /> < /observationRange> </referenceRange> </observation> </ component> <component> <observation moodCode="EVN" classCode="OBS"> <templateId root="840.1.697857.08.03.22.4.2" /> <id nullFlavor="NA" /> <code codeSystem="local" code="UURO" displayName= "Urobilinogen" /> <statusCode code="completed" /> < effectiveTime value="416513631383" /> <value unit="mg/dL" xsi:type="PQ " value="Negative" /> <referenceRange> <observationRange> <text><1.0</text> </observationRange> </ referenceRange> </observation> </component> </organizer> </entry > <entry> <organizer moodCode="EVN" classCode="BATTERY"> <templateId root="840.1.984152.08.03.22.4.1" /> <id nullFlavor="NA" /> <code codeSystem="local" code="PREGN" displayName=" Screen, Urine NPT" /> <statusCode code="completed" /> <component> <observation moodCode ="EVN" classCode="OBS"> <templateId root= "11.30.840.1.100834.08.03.22.4.2" /> <id nullFlavor="NA" /> < code codeSystem="local" code="PREGN" displayName=" Screen, Urine NPT" / > <statusCode code="completed" /> <effectiveTime value= "526344622468" /> <value unit="NA" xsi:type="PQ" value="Negative" /> <referenceRange> <observationRange> <text /> </observationRange> </referenceRange> </observation> </component> </organizer> </entry> <entry> <organizer moodCode="EVN " classCode="BATTERY"> <templateId root="16.840.1.297967.10...4.1" / > <id nullFlavor="NA" /> <code codeSystem="local" code="CBCWD" displayName="CBC With Platelet and Differential" /> <statusCode code= "completed" /> <component> <observation moodCode="EVN" classCode= "OBS"> <templateId root="216.840.1.784040...4.2" /> < id nullFlavor="NA" /> <code codeSystem="local" code="ABASR" displayName ="Absolute Basophils" /> <statusCode code="completed" /> < effectiveTime value="192270328559" /> <value unit="10*3/uL" xsi:type= "PQ" value="0.03" /> <referenceRange> <observationRange> <text>0.00-0.20</text> </observationRange> </ referenceRange> </observation> </component> <component> <observation moodCode="EVN" classCode="OBS"> <templateId root= "16.840.1.796825.10..4.2" /> <id nullFlavor="NA" /> < code codeSystem="local" code="AEOSR" displayName="Absolute Eosinophils" /> <statusCode code="completed" /> <effectiveTime value="998470397910 " /> <value unit="10*3/uL" xsi:type="PQ" value="0.31" /> < referenceRange> <observationRange> <text>0.00-0.50</text > </observationRange> </referenceRange> </observation > </component> <component> <observation moodCode="EVN" classCode="OBS"> <templateId root="216.840.1.779289.10..4.2" /> <id nullFlavor="NA" /> <code codeSystem="local" code="ALYMR" displayName="Absolute Lymphocytes" /> <statusCode code="completed" /> <effectiveTime value="983731895664" /> <value unit="10*3/uL" xsi:type="PQ" value="1.67" /> <referenceRange> < observationRange> <text>0.80-3.30</text> </ observationRange> </referenceRange> </observation> </ component> <component> <observation moodCode="EVN" classCode="OBS"> <templateId root="11.30.840.1.005760.10..4.2" /> <id nullFlavor="NA" /> <code codeSystem="local" code="AMONR" displayName= "Absolute Monocytes" /> <statusCode code="completed" /> < effectiveTime value="787598611042" /> <value unit="10*3/uL" xsi:type= "PQ" value="0.41" /> <referenceRange> <observationRange> <text>0.30-1.00</text> </observationRange> </ referenceRange> </observation> </component> <component> <observation moodCode="EVN" classCode="OBS"> <templateId root= "216.840.1.474555.10.22.4.2" /> <id nullFlavor="NA" /> < code codeSystem="local" code="ASEGR" displayName="Absolute Neutrophils" /> <statusCode code="completed" /> <effectiveTime value="904201041843 " /> <value unit="10*3/uL" xsi:type="PQ" value="3.14" /> < referenceRange> <observationRange> <text>1.90-7.00</text > </observationRange> </referenceRange> </observation > </component> <component> <observation moodCode="EVN" classCode="OBS"> <templateId root="2.16.840.1.951464.10...4.2" /> <id nullFlavor="NA" /> <code codeSystem="local" code="BASOR" displayName="Basophils" /> <statusCode code="completed" /> < effectiveTime value="749723897941" /> <value unit="%" xsi:type="PQ " value="1" /> <referenceRange> <observationRange> <text>0-2</text> </observationRange> </referenceRange> </observation> </component> <component> <observation moodCode="EVN" classCode="OBS"> <templateId root= "2.16.840.1.323045.10...4.2" /> <id nullFlavor="NA" /> < code codeSystem="local" code="EOSR" displayName="Eosinophils" /> < statusCode code="completed" /> <effectiveTime value="354484670697" /> <value unit="%" xsi:type="PQ" value="6" /> < interpretationCode codeSystem="local" code="*" /> <referenceRange> <observationRange> <text>0-4</text> </ observationRange> </referenceRange> </observation> </ component> <component> <observation moodCode="EVN" classCode="OBS"> <templateId root="216.840.1.172979.10..4.2" /> <id nullFlavor="NA" /> <code codeSystem="local" code="HCT" displayName="HCT " /> <statusCode code="completed" /> <effectiveTime value= "386667767569" /> <value unit="%" xsi:type="PQ" value="35.6" /> <interpretationCode codeSystem="local" code="*" /> < referenceRange> <observationRange> <text>37.0-47.0</text > </observationRange> </referenceRange> </observation > </component> <component> <observation moodCode="EVN" classCode="OBS"> <templateId root="11.30.840.1.083371.08.03.224.2" /> <id nullFlavor="NA" /> <code codeSystem="local" code="HGB" displayName="HGB" /> <statusCode code="completed" /> < effectiveTime value="372359148730" /> <value unit="g/dL" xsi:type="PQ" value="11.6" /> <interpretationCode codeSystem="local" code="*" /> <referenceRange> <observationRange> <text>12.0- 16.0</text> </observationRange> </referenceRange> </ observation> </component> <component> <observation moodCode= "EVN" classCode="OBS"> <templateId root="16.840.1.748724.10.22.4.2 " /> <id nullFlavor="NA" /> <code codeSystem="local" code= "IMGA" displayName="Immature Granulocytes" /> <statusCode code= "completed" /> <effectiveTime value="386484827585" /> <value unit="%" xsi:type="PQ" value="0.4" /> <referenceRange> < observationRange> <text>0.0-1.0</text> </ observationRange> </referenceRange> </observation> </ component> <component> <observation moodCode="EVN" classCode="OBS"> <templateId root="16.840.1.232690.10..4.2" /> <id nullFlavor="NA" /> <code codeSystem="local" code="LYMPR" displayName= "Lymphocytes" /> <statusCode code="completed" /> < effectiveTime value="046624255215" /> <value unit="%" xsi:type="PQ " value="30" /> <referenceRange> <observationRange> <text>20-46</text> </observationRange> </ referenceRange> </observation> </component> <component> <observation moodCode="EVN" classCode="OBS"> <templateId root= "11.30.840.1.271141.10..4.2" /> <id nullFlavor="NA" /> < code codeSystem="local" code="MCH" displayName="MCH" /> <statusCode code="completed" /> <effectiveTime value="814855652368" /> < value unit="pg" xsi:type="PQ" value="29.9" /> <referenceRange> <observationRange> <text>27.0-32.0</text> </ observationRange> </referenceRange> </observation> </ component> <component> <observation moodCode="EVN" classCode="OBS"> <templateId root="11.30.840.1.166266.10.2022.4.2" /> <id nullFlavor="NA" /> <code codeSystem="local" code="MCHC" displayName= "MCHC" /> <statusCode code="completed" /> <effectiveTime value ="406281251873" /> <value unit="g/dL" xsi:type="PQ" value="32.6" /> <referenceRange> <observationRange> <text>32.0- 36.0</text> </observationRange> </referenceRange> </ observation> </component> <component> <observation moodCode= "EVN" classCode="OBS"> <templateId root="11.30.840.1.022919.10.20.22.4.2 " /> <id nullFlavor="NA" /> <code codeSystem="local" code="MCV " displayName="MCV" /> <statusCode code="completed" /> < effectiveTime value="475992360968" /> <value unit="fL" xsi:type="PQ" value="91.8" /> <referenceRange> <observationRange> <text>82.0-99.0</text> </observationRange> </ referenceRange> </observation> </component> <component> <observation moodCode="EVN" classCode="OBS"> <templateId root= "11.30.840.1.046095.10.20.22.4.2" /> <id nullFlavor="NA" /> < code codeSystem="local" code="MONOR" displayName="Monocytes" /> < statusCode code="completed" /> <effectiveTime value="326686256676" /> <value unit="%" xsi:type="PQ" value="7" /> <referenceRange > <observationRange> <text>4-11</text> </ observationRange> </referenceRange> </observation> </ component> <component> <observation moodCode="EVN" classCode="OBS"> <templateId root="840.1.674977.10..4.2" /> <id nullFlavor="NA" /> <code codeSystem="local" code="MPV" displayName="MPV " /> <statusCode code="completed" /> <effectiveTime value= "914528581216" /> <value unit="fL" xsi:type="PQ" value="10.0" /> <referenceRange> <observationRange> <text>9.4-12.4</ text> </observationRange> </referenceRange> </ observation> </component> <component> <observation moodCode= "EVN" classCode="OBS"> <templateId root="11.30.840.1.842990.08.03.22.4.2 " /> <id nullFlavor="NA" /> <code codeSystem="local" code= "SEGR" displayName="Neutrophils" /> <statusCode code="completed" /> <effectiveTime value="386130878592" /> <value unit="%" xsi: type="PQ" value="56" /> <referenceRange> <observationRange> <text>51-75</text> </observationRange> </ referenceRange> </observation> </component> <component> <observation moodCode="EVN" classCode="OBS"> <templateId root= "11.30.840.1.858556.08.03.22.4.2" /> <id nullFlavor="NA" /> < code codeSystem="local" code="NRBCA" displayName="Nucleated RBC Automated" /> <statusCode code="completed" /> <effectiveTime value= "724406499159" /> <value unit="/100WBC" xsi:type="PQ" value="0.0" /> <referenceRange> <observationRange> <text /> </observationRange> </referenceRange> </observation> </component> <component> <observation moodCode="EVN" classCode= "OBS"> <templateId root="11.30.840.1.504980.10.20.22.4.2" /> < id nullFlavor="NA" /> <code codeSystem="local" code="PLT" displayName= "Platelet Count" /> <statusCode code="completed" /> < effectiveTime value="060388857601" /> <value unit="K/uL" xsi:type="PQ" value="271" /> <referenceRange> <observationRange> <text>150-400</text> </observationRange> </ referenceRange> </observation> </component> <component> <observation moodCode="EVN" classCode="OBS"> <templateId root= "840.1.512154..22.4.2" /> <id nullFlavor="NA" /> < code codeSystem="local" code="RBC" displayName="RBC" /> <statusCode code="completed" /> <effectiveTime value="556829956430" /> < value unit="10*6/uL" xsi:type="PQ" value="3.88" /> <interpretationCode codeSystem="local" code="*" /> <referenceRange> < observationRange> <text>4.00-5.20</text> </ observationRange> </referenceRange> </observation> </ component> <component> <observation moodCode="EVN" classCode="OBS"> <templateId root="11.30.840.1.513440.10.2022.4.2" /> <id nullFlavor="NA" /> <code codeSystem="local" code="RDW" displayName="RDW " /> <statusCode code="completed" /> <effectiveTime value= "740565267848" /> <value unit="%" xsi:type="PQ" value="13.9" /> <referenceRange> <observationRange> <text>11.5- 14.5</text> </observationRange> </referenceRange> </ observation> </component> <component> <observation moodCode= "EVN" classCode="OBS"> <templateId root="11.30.840.1.771522.10.20.22.4.2 " /> <id nullFlavor="NA" /> <code codeSystem="local" code= "WBCIR" displayName="WBC" /> <statusCode code="completed" /> < effectiveTime value="025180200588" /> <value unit="K/uL" xsi:type="PQ" value="5.6" /> <referenceRange> <observationRange> <text>4.8-10.8</text> </observationRange> </ referenceRange> </observation> </component> </organizer> </entry > <entry> <organizer moodCode="EVN" classCode="BATTERY"> <templateId root="11.30.840.1.190870.10..22.4.1" /> <id nullFlavor="NA" /> <code codeSystem="local" code="UA" displayName="Urinalysis with reflex microscopic" / > <statusCode code="completed" /> <component> <observation moodCode="EVN" classCode="OBS"> <templateId root= "11.30.840.1.841809.10.20.22.4.2" /> <id nullFlavor="NA" /> < code codeSystem="local" code="UAPP" displayName="Appearance" /> < statusCode code="completed" /> <effectiveTime value="499938027808" /> <value unit="NA" xsi:type="PQ" value="Clear" /> < referenceRange> <observationRange> <text /> < /observationRange> </referenceRange> </observation> </ component> <component> <observation moodCode="EVN" classCode="OBS"> <templateId root="216.840.1.241784.08.03.22.4.2" /> <id nullFlavor="NA" /> <code codeSystem="local" code="UBIL" displayName= "Bilirubin" /> <statusCode code="completed" /> <effectiveTime value="" /> <value unit="NA" xsi:type="PQ" value="Negative " /> <referenceRange> <observationRange> <text> Negative</text> </observationRange> </referenceRange> </observation> </component> <component> <observation moodCode ="EVN" classCode="OBS"> <templateId root= "2.840.1.600350.08.03.22.4.2" /> <id nullFlavor="NA" /> < code codeSystem="local" code="UBLD" displayName="Blood" /> <statusCode code="completed" /> <effectiveTime value="" /> < value unit="NA" xsi:type="PQ" value="Negative" /> <referenceRange> <observationRange> <text>Negative</text> </ observationRange> </referenceRange> </observation> </ component> <component> <observation moodCode="EVN" classCode="OBS"> <templateId root="11.30.840.1.558108.08.03.22.4.2" /> <id nullFlavor="NA" /> <code codeSystem="local" code="UCOLR" displayName= "Color" /> <statusCode code="completed" /> <effectiveTime value="" /> <value unit="NA" xsi:type="PQ" value="Yellow" / > <referenceRange> <observationRange> <text /> </observationRange> </referenceRange> </observation > </component> <component> <observation moodCode="EVN" classCode="OBS"> <templateId root="16.840.1.159783.10.4.2" /> <id nullFlavor="NA" /> <code codeSystem="local" code="UGLU" displayName="Glucose, Urine" /> <statusCode code="completed" /> <effectiveTime value="" /> <value unit="" xsi:type="PQ" value="Negative" /> <referenceRange> <observationRange> <text>Negative</text> </observationRange> </ referenceRange> </observation> </component> <component> <observation moodCode="EVN" classCode="OBS"> <templateId root= "11.30.840.1.657477.08.03.22.4.2" /> <id nullFlavor="NA" /> < code codeSystem="local" code="UKET" displayName="Ketones" /> < statusCode code="completed" /> <effectiveTime value="" /> <value unit="" xsi:type="PQ" value="Negative" /> < referenceRange> <observationRange> <text>Negative</text > </observationRange> </referenceRange> </observation > </component> <component> <observation moodCode="EVN" classCode="OBS"> <templateId root="11.30.840.1.864415.10.4.2" /> <id nullFlavor="NA" /> <code codeSystem="local" code="ULEU" displayName="Leukocyte Esterase" /> <statusCode code="completed" /> <effectiveTime value="" /> <value unit="NA" xsi:type ="PQ" value="Negative" /> <referenceRange> <observationRange > <text>Negative</text> </observationRange> </ referenceRange> </observation> </component> <component> <observation moodCode="EVN" classCode="OBS"> <templateId root= "16.840.1.803508.10.4.2" /> <id nullFlavor="NA" /> < code codeSystem="local" code="UNIT" displayName="Nitrites" /> < statusCode code="completed" /> <effectiveTime value="" /> <value unit="NA" xsi:type="PQ" value="Negative" /> < referenceRange> <observationRange> <text>Negative</text > </observationRange> </referenceRange> </observation > </component> <component> <observation moodCode="EVN" classCode="OBS"> <templateId root="11.30.840.1.623052.08.03.22.4.2" /> <id nullFlavor="NA" /> <code codeSystem="local" code="UPH" displayName="pH" /> <statusCode code="completed" /> < effectiveTime value="" /> <value unit="NA" xsi:type="PQ" value="5.0" /> <referenceRange> <observationRange> <text>5.0-8.0</text> </observationRange> </ referenceRange> </observation> </component> <component> <observation moodCode="EVN" classCode="OBS"> <templateId root= "11.30.840.1.331586.10.4.2" /> <id nullFlavor="NA" /> < code codeSystem="local" code="UPRO" displayName="Protein" /> < statusCode code="completed" /> <effectiveTime value="" /> <value unit="NA" xsi:type="PQ" value="Negative" /> < referenceRange> <observationRange> <text>Negative</text > </observationRange> </referenceRange> </observation > </component> <component> <observation moodCode="EVN" classCode="OBS"> <templateId root="216.840.1.498246.10..4.2" /> <id nullFlavor="NA" /> <code codeSystem="local" code="USPG" displayName="Specific Homer" /> <statusCode code="completed" /> <effectiveTime value="726950206939" /> <value unit="NA" xsi:type= "PQ" value="1.015" /> <referenceRange> <observationRange> <text>1.003-1.030</text> </observationRange> </ referenceRange> </observation> </component> <component> <observation moodCode="EVN" classCode="OBS"> <templateId root= "16.840.1.599716.08.03.22.4.2" /> <id nullFlavor="NA" /> < code codeSystem="local" code="UTYP" displayName="UA Collection type" /> <statusCode code="completed" /> <effectiveTime value="834886415804" / > <value unit="NA" xsi:type="PQ" value="Clean Catch" /> < referenceRange> <observationRange> <text /> < /observationRange> </referenceRange> </observation> </ component> <component> <observation moodCode="EVN" classCode="OBS"> <templateId root="11.30.840.1.806844.08.03.22.4.2" /> <id nullFlavor="NA" /> <code codeSystem="local" code="UURO" displayName= "Urobilinogen" /> <statusCode code="completed" /> < effectiveTime value="706364271884" /> <value unit="mg/dL" xsi:type="PQ " value="Negative" /> <referenceRange> <observationRange> <text><1.0</text> </observationRange> </ referenceRange> </observation> </component> </organizer> </entry > <entry> <organizer moodCode="EVN" classCode="BATTERY"> <templateId root="216.840.1.676903.10..22.4.1" /> <id nullFlavor="NA" /> <code codeSystem="local" code="UPREG" displayName=" Screen, Urine" /> < statusCode code="completed" /> <component> <observation moodCode= "EVN" classCode="OBS"> <templateId root="2.16.840.1.071714.10..22.4.2 " /> <id nullFlavor="NA" /> <code codeSystem="local" code= "UPREG" displayName=" Screen, Urine" /> <statusCode code= "completed" /> <effectiveTime value="742004864483" /> <value unit="NA" xsi:type="PQ" value="Negative" /> <referenceRange> <observationRange> <text /> </observationRange> </referenceRange> </observation> </component> </organizer> < /entry> <entry> <organizer moodCode="EVN" classCode="BATTERY"> < templateId root="2.16.840.1.735735.10..22.4.1" /> <id nullFlavor="NA" /> <code codeSystem="local" code="VCHMN" displayName="Chem 8 NPT" /> < statusCode code="completed" /> <component> <observation moodCode= "EVN" classCode="OBS"> <templateId root="16.840.1.295412.10..22.4.2 " /> <id nullFlavor="NA" /> <code codeSystem="local" code= "VAGAP" displayName="Anion Gap" /> <statusCode code="completed" /> <effectiveTime value="828754299824" /> <value unit="mEq/L" xsi: type="PQ" value="13" /> <referenceRange> <observationRange> <text>3-20</text> </observationRange> </ referenceRange> </observation> </component> <component> <observation moodCode="EVN" classCode="OBS"> <templateId root= "11.30.840.1.651105.08.03.22.4.2" /> <id nullFlavor="NA" /> < code codeSystem="local" code="VBUNN" displayName="BUN Venous" /> < statusCode code="completed" /> <effectiveTime value="389805816165" /> <value unit="mg/dl" xsi:type="PQ" value="12" /> < referenceRange> <observationRange> <text>4-20</text> </observationRange> </referenceRange> </observation> </component> <component> <observation moodCode="EVN" classCode= "OBS"> <templateId root="11.30.840.1.020473.1022.4.2" /> < id nullFlavor="NA" /> <code codeSystem="local" code="VCANN" displayName ="Calcium Ionized Venous" /> <statusCode code="completed" /> < effectiveTime value="766034639174" /> <value unit="mmol/L" xsi:type="PQ " value="1.13" /> <interpretationCode codeSystem="local" code="*" /> <referenceRange> <observationRange> <text>1.19- 1.41</text> </observationRange> </referenceRange> </ observation> </component> <component> <observation moodCode= "EVN" classCode="OBS"> <templateId root="16.840.1.071467.10.22.4.2 " /> <id nullFlavor="NA" /> <code codeSystem="local" code= "VCREN" displayName="Creatinine Venous" /> <statusCode code="completed " /> <effectiveTime value="890632048652" /> <value unit="mg/dL " xsi:type="PQ" value="0.7" /> <referenceRange> < observationRange> <text>0.4-1.0</text> </ observationRange> </referenceRange> </observation> </ component> <component> <observation moodCode="EVN" classCode="OBS"> <templateId root="11.30.840.1.444239.08.03.22.4.2" /> <id nullFlavor="NA" /> <code codeSystem="local" code="VGLNN" displayName= "Glucose Venous" /> <statusCode code="completed" /> < effectiveTime value="225802844692" /> <value unit="mg/dL" xsi:type="PQ " value="80" /> <referenceRange> <observationRange> <text>70-100</text> </observationRange> </ referenceRange> </observation> </component> <component> <observation moodCode="EVN" classCode="OBS"> <templateId root= "11.30.840.1.147675.10.4.2" /> <id nullFlavor="NA" /> < code codeSystem="local" code="VKNN" displayName="Potassium, WB" /> < statusCode code="completed" /> <effectiveTime value="383188005340" /> <value unit="mEq/L" xsi:type="PQ" value="3.9" /> < referenceRange> <observationRange> <text>3.6-5.1</text> </observationRange> </referenceRange> </observation > </component> <component> <observation moodCode="EVN" classCode="OBS"> <templateId root="216.840.1.307090.10..22.4.2" /> <id nullFlavor="NA" /> <code codeSystem="local" code="VNANN" displayName="Sodium Venous" /> <statusCode code="completed" /> <effectiveTime value="138768418726" /> <value unit="mEq/L" xsi:type= "PQ" value="140" /> <referenceRange> <observationRange> <text>136-144</text> </observationRange> </ referenceRange> </observation> </component> <component> <observation moodCode="EVN" classCode="OBS"> <templateId root= "16.840.1.527989.10...4.2" /> <id nullFlavor="NA" /> < code codeSystem="local" code="VTCNN" displayName="Total CO2 Venous" /> <statusCode code="completed" /> <effectiveTime value="679377696601" /> <value unit="mEq/L" xsi:type="PQ" value="21" /> < interpretationCode codeSystem="local" code="*" /> <referenceRange> <observationRange> <text>25-29</text> </ observationRange> </referenceRange> </observation> </ component> <component> <observation moodCode="EVN" classCode="OBS"> <templateId root="216.840.1.405097.10...4.2" /> <id nullFlavor="NA" /> <code codeSystem="local" code="VCLN" displayName= "Venous CL" /> <statusCode code="completed" /> <effectiveTime value="257908768633" /> <value unit="mEq/L" xsi:type="PQ" value="106" / > <referenceRange> <observationRange> <text>99- 109</text> </observationRange> </referenceRange> </ observation> </component> <component> <observation moodCode= "EVN" classCode="OBS"> <templateId root="2.16.840.1.006391.10..22.4.2 " /> <id nullFlavor="NA" /> <code codeSystem="local" code= "VHCNN" displayName="HCT Venous" /> <statusCode code="completed" /> <effectiveTime value="652752226715" /> <value unit="%" xsi: type="PQ" value="41.0" /> <referenceRange> <observationRange > <text>37.0-47.0</text> </observationRange> </ referenceRange> </observation> </component> <component> <observation moodCode="EVN" classCode="OBS"> <templateId root= "2.16.840.1.608030.10..22.4.2" /> <id nullFlavor="NA" /> < code codeSystem="local" code="VHGNN" displayName="HGB Venous NPT" /> < statusCode code="completed" /> <effectiveTime value="407062807226" /> <value unit="g/dL" xsi:type="PQ" value="13.9" /> < referenceRange> <observationRange> <text>12.0-16.0</text > </observationRange> </referenceRange> </observation > </component> </organizer> </entry> <entry> <organizer moodCode= "EVN" classCode="BATTERY"> <templateId root="16.840.1.794977.10..22.4.1 " /> <id nullFlavor="NA" /> <code codeSystem="local" code="PREGN" displayName=" Screen, Urine NPT" /> <statusCode code="completed" / > <component> <observation moodCode="EVN" classCode="OBS"> <templateId root="11.30.840.1.616337...4.2" /> <id nullFlavor="NA " /> <code codeSystem="local" code="PREGN" displayName=" Screen, Urine NPT" /> <statusCode code="completed" /> < effectiveTime value="164422292430" /> <value unit="NA" xsi:type="PQ" value="Negative" /> <referenceRange> <observationRange> <text /> </observationRange> </referenceRange> </observation> </component> </organizer> </entry> <entry> < organizer moodCode="EVN" classCode="BATTERY"> <templateId root= "11.30.840.1.940078.10..4.1" /> <id nullFlavor="NA" /> <code codeSystem="local" code="UA" displayName="URINALYSIS, ROUTINE" /> < statusCode code="completed" /> <component> <observation moodCode= "EVN" classCode="OBS"> <templateId root="16.840.1.240706.10..22.4.2 " /> <id nullFlavor="NA" /> <code codeSystem="local" code= "LEUESU" displayName="UA LEUKOCYTE ESTERASE DIPSTICK" /> <statusCode code="completed" /> <effectiveTime value="895831171971" /> < value unit="" xsi:type="PQ" value="NEGATIVE" /> <referenceRange> <observationRange> <text>NEGATIVE</text> </ observationRange> </referenceRange> </observation> </ component> <component> <observation moodCode="EVN" classCode="OBS"> <templateId root="11.30.840.1.130047.10..4.2" /> <id nullFlavor="NA" /> <code codeSystem="local" code="NITRIU" displayName= "UA NITRITE DIPSTICK" /> <statusCode code="completed" /> < effectiveTime value="464968796362" /> <value unit="" xsi:type="PQ" value="NEGATIVE" /> <referenceRange> <observationRange> <text>NEGATIVE</text> </observationRange> </ referenceRange> </observation> </component> <component> <observation moodCode="EVN" classCode="OBS"> <templateId root= "840.1.565816.08.03.22.4.2" /> <id nullFlavor="NA" /> < code codeSystem="local" code="PROTEIU" displayName="UA PROTEIN DIPSTICK" /> <statusCode code="completed" /> <effectiveTime value= "850562726536" /> <value unit="" xsi:type="PQ" value="NEGATIVE" /> <referenceRange> <observationRange> <text>NEGATIVE </text> </observationRange> </referenceRange> </ observation> </component> <component> <observation moodCode= "EVN" classCode="OBS"> <templateId root="840.1.494428.22.4.2 " /> <id nullFlavor="NA" /> <code codeSystem="local" code= "DGLUU" displayName="UA GLUCOSE DIPSTICK" /> <statusCode code= "completed" /> <effectiveTime value="328894628270" /> <value unit="" xsi:type="PQ" value="NEGATIVE" /> <referenceRange> < observationRange> <text>NEGATIVE</text> </ observationRange> </referenceRange> </observation> </ component> <component> <observation moodCode="EVN" classCode="OBS"> <templateId root="216.840.1.860178.08.03.22.4.2" /> <id nullFlavor="NA" /> <code codeSystem="local" code="KETONU" displayName= "UA KETONE DIPSTICK" /> <statusCode code="completed" /> < effectiveTime value="323564140977" /> <value unit="" xsi:type="PQ" value="NEGATIVE" /> <referenceRange> <observationRange> <text>NEGATIVE</text> </observationRange> </ referenceRange> </observation> </component> <component> <observation moodCode="EVN" classCode="OBS"> <templateId root= "11.30.840.1.710723.08.03.22.4.2" /> <id nullFlavor="NA" /> < code codeSystem="local" code="UROBILU" displayName="UA UROBILINOGEN DIPSTICK" / > <statusCode code="completed" /> <effectiveTime value= "226848252449" /> <value unit="" xsi:type="PQ" value="NORMAL" /> <referenceRange> <observationRange> <text>NORMAL</ text> </observationRange> </referenceRange> </ observation> </component> <component> <observation moodCode= "EVN" classCode="OBS"> <templateId root="16.840.1.426730...4.2 " /> <id nullFlavor="NA" /> <code codeSystem="local" code= "BILU" displayName="UA BILIRUBIN DIPSTICK" /> <statusCode code= "completed" /> <effectiveTime value="756911639462" /> <value unit="" xsi:type="PQ" value="NEGATIVE" /> <referenceRange> < observationRange> <text>NEGATIVE</text> </ observationRange> </referenceRange> </observation> </ component> <component> <observation moodCode="EVN" classCode="OBS"> <templateId root="16.840.1.605706.10..22.4.2" /> <id nullFlavor="NA" /> <code codeSystem="local" code="ABDELRAHMAN" displayName="UA BLOOD DIPSTICK" /> <statusCode code="completed" /> < effectiveTime value="655375387314" /> <value unit="" xsi:type="PQ" value="NEGATIVE" /> <referenceRange> <observationRange> <text>NEGATIVE</text> </observationRange> </ referenceRange> </observation> </component> <component> <observation moodCode="EVN" classCode="OBS"> <templateId root= "16.840.1.455845.10.20.22.4.2" /> <id nullFlavor="NA" /> < code codeSystem="local" code="SPGRU" displayName="UA SPECIFIC GRAVITY" /> <statusCode code="completed" /> <effectiveTime value="302217723096 " /> <value unit="" xsi:type="PQ" value="1.015" /> < referenceRange> <observationRange> <text>1.015-1.025</ text> </observationRange> </referenceRange> </ observation> </component> <component> <observation moodCode= "EVN" classCode="OBS"> <templateId root="11.30.840.1.464202.10..4.2 " /> <id nullFlavor="NA" /> <code codeSystem="local" code="COLTON " displayName="UR PH" /> <statusCode code="completed" /> < effectiveTime value="444327691378" /> <value unit="" xsi:type="PQ" value="6.5" /> <referenceRange> <observationRange> <text>5.0-7.0</text> </observationRange> </ referenceRange> </observation> </component> </organizer> </entry > <entry> <organizer moodCode="EVN" classCode="BATTERY"> <templateId root="216.840.1.385996...4.1" /> <id nullFlavor="NA" /> <code codeSystem="local" code="PREGU" displayName="UR TEST" /> < statusCode code="completed" /> <component> <observation moodCode= "EVN" classCode="OBS"> <templateId root="216.840.1.340149...4.2 " /> <id nullFlavor="NA" /> <code codeSystem="local" code= "PREGU" displayName="UR TEST" /> <statusCode code="completed " /> <effectiveTime value="620888713515" /> <value unit="" xsi :type="PQ" value="NEGATIVE" /> <referenceRange> < observationRange> <text>NEGATIVE</text> </ observationRange> </referenceRange> </observation> </ component> </organizer> </entry> <entry> <organizer moodCode="EVN" classCode="BATTERY"> <templateId root="216.840.1.857832.10..4.1" /> <id nullFlavor="NA" /> <code codeSystem="local" code="CHL" displayName ="CHLAMYDIA DNA BY PCR" /> <statusCode code="completed" /> <component > <observation moodCode="EVN" classCode="OBS"> <templateId root= "216.840.1.455215.10..22.4.2" /> <id nullFlavor="NA" /> < code codeSystem="local" code="MB" displayName="Microbiology" /> < statusCode code="completed" /> <effectiveTime value="182535981855" /> <value xsi:type="ST" value="<pre><b>CHLAMYDIA DNA BY PCR - GONORRHOEA DNA BY PCR</b> See BelowCHLAMYDIA DNA BY PCR(F) Isabella Date/Time: 2016 19:12 Laina Date/Time: 06/12/2017 09:32SOURCE : URINESPEC DESC: [address] [address]J[place] BelowGONORRHOEA DNA BY PCR(F) Isabella Date/Time: 06/11/2017 19:12 Laina Date/Time: 06/12/2017 09:32SOURCE: URINESPEC DESC: [address] [address]</ pre>" /> <referenceRange> <observationRange> < text /> </observationRange> </referenceRange> </ observation> </component> </organizer> </entry> <entry> <organizer moodCode="EVN" classCode="BATTERY"> <templateId root= "16.840.1.371649.10.20.22.4.1" /> <id nullFlavor="NA" /> <code codeSystem="local" code="PREG" displayName=" TEST, SERUM" /> < statusCode code="completed" /> <component> <observation moodCode= "EVN" classCode="OBS"> <templateId root="216.840.1.066310...22.4.2 " /> <id nullFlavor="NA" /> <code codeSystem="local" code= "PREG" displayName=" TEST, SERUM" /> <statusCode code= "completed" /> <effectiveTime value="807405835918" /> <value unit="" xsi:type="PQ" value="NEGATIVE" /> <referenceRange> < observationRange> <text>NEGATIVE</text> </ observationRange> </referenceRange> </observation> </ component> </organizer> </entry> <entry> <organizer moodCode="EVN" classCode="BATTERY"> <templateId root="216.840.1.702445.08.03.22.4.1" /> <id nullFlavor="NA" /> <code codeSystem="local" code="RPR" displayName ="RAPID PLASMA REAGIN" /> <statusCode code="completed" /> <component> <observation moodCode="EVN" classCode="OBS"> <templateId root= "16.840.1.434554....4.2" /> <id nullFlavor="NA" /> < code codeSystem="local" code="RPR" displayName="RAPID PLASMA REAGIN" /> <statusCode code="completed" /> <effectiveTime value="689799218312" / > <value unit="" xsi:type="PQ" value="NONREACTIVE" /> < referenceRange> <observationRange> <text>NONREACTIVE</ text> </observationRange> </referenceRange> </ observation> </component> </organizer> </entry> <entry> <organizer moodCode="EVN" classCode="BATTERY"> <templateId root= "16.840.1.304589.10..22.4.1" /> <id nullFlavor="NA" /> <code codeSystem="local" code="HIV" displayName="HIV" /> <statusCode code= "completed" /> <component> <observation moodCode="EVN" classCode= "OBS"> <templateId root="216.840.1.400593.10.4.2" /> < id nullFlavor="NA" /> <code codeSystem="local" code="FPH07VLY" displayName="AB HIV 1 2" /> <statusCode code="completed" /> <effectiveTime value="887753955656" /> <value unit="" xsi:type="PQ" value="NEGATIVE" /> <referenceRange> <observationRange> <text>NEGATIVE</text> </observationRange> </ referenceRange> </observation> </component> <component> <observation moodCode="EVN" classCode="OBS"> <templateId root= "11.30.840.1.341490.08.03.22.4.2" /> <id nullFlavor="NA" /> < code codeSystem="local" code="[id number]" displayName="HIV 1 P24 AG" /> <statusCode code="completed" /> <effectiveTime value="145852336624" /> <value unit="" xsi:type="PQ" value="NEGATIVE" /> < referenceRange> <observationRange> <text>NEGATIVE</text > </observationRange> </referenceRange> </observation > </component> </organizer> </entry> <entry> <organizer moodCode= "EVN" classCode="BATTERY"> <templateId root="16.840.1.194028.10..4.1 " /> <id nullFlavor="NA" /> <code codeSystem="local" code="WET" displayName="WET MOUNT" /> <statusCode code="completed" /> <component > <observation moodCode="EVN" classCode="OBS"> <templateId root= "2.16.840.1.229908.10.20.22.4.2" /> <id nullFlavor="NA" /> < code codeSystem="local" code="MB" displayName="Microbiology" /> < statusCode code="completed" /> <effectiveTime value="615028944665" /> <value xsi:type="ST" value="<pre><b>WET MOUNT</b> See BelowWET MOUNT(F ) Isabella Date/Time: 06/11/2017 20:32 Laina Date/Time: 06/11/2017 20:45SOURCE: VAGINALSPEC DESC: CLUE CELLS ( Abnormal)MODERATE CLUE CELLS PRESENT (Abnormal)TRICHOMONASNO TRICHOMONAS SEENWBCFEW WBCYEASTNO YEAST [facility]ENNOR[facility] [place] [address]</pre>" /> <referenceRange> <observationRange> <text /> </observationRange> </referenceRange> </observation> </component> </organizer> </entry> <entry> < organizer moodCode="EVN" classCode="BATTERY"> <templateId root= "2.16.840.1.415048.10..22.4.1" /> <id nullFlavor="NA" /> <code codeSystem="local" code="GRAM" displayName="GRAM STAIN - CHLAMYDIA DNA BY PCR" / > <statusCode code="completed" /> <component> <observation moodCode="EVN" classCode="OBS"> <templateId root= "2.16.840.1.030754.10.20.22.4.2" /> <id nullFlavor="NA" /> < code codeSystem="local" code="MB" displayName="Microbiology" /> < statusCode code="completed" /> <effectiveTime value="929829484065" /> <value xsi:type="ST" value="<pre><b>GRAM STAIN</b> See BelowGRAM STAIN( F) Isabella Date/Time: 06/11/2017 20:32 Laina Date/Time: 06/11/2017 20:52SOURCE: VAGINALSPEC DESC: GRAM STAINRARE NEUTROPHILSMANY GRAM VARIABLE BACILLI RESEMBLING G. VAGINALISNO ORGANISMS SEEN RESEMBLING NEISSERIA GONORRHOEAENORTH [facility]AKOTA [facility]ITAL[address] [place] [address]</pre>" /> <referenceRange> <observationRange> <text /> </observationRange> </referenceRange> </observation> </component> </organizer> </entry> <entry> < organizer moodCode="EVN" classCode="BATTERY"> <templateId root= "2.16.840.1.115604.10.20.22.4.1" /> <id nullFlavor="NA" /> <code codeSystem="local" code="CBCWD" displayName="CBC With Platelet and Differential " /> <statusCode code="completed" /> <component> <observation moodCode="EVN" classCode="OBS"> <templateId root= "2.16.840.1.119525.10.20.22.4.2" /> <id nullFlavor="NA" /> < code codeSystem="local" code="ABASR" displayName="Absolute Basophils" /> <statusCode code="completed" /> <effectiveTime value="424620142696" /> <value unit="10*3/uL" xsi:type="PQ" value="0.06" /> < referenceRange> <observationRange> <text>0.00-0.20</text > </observationRange> </referenceRange> </observation > </component> <component> <observation moodCode="EVN" classCode="OBS"> <templateId root="2.16.840.1.780949.10.20.22.4.2" /> <id nullFlavor="NA" /> <code codeSystem="local" code="AEOSR" displayName="Absolute Eosinophils" /> <statusCode code="completed" /> <effectiveTime value="634895851500" /> <value unit="10*3/uL" xsi:type="PQ" value="0.46" /> <referenceRange> < observationRange> <text>0.00-0.50</text> </ observationRange> </referenceRange> </observation> </ component> <component> <observation moodCode="EVN" classCode="OBS"> <templateId root="16.840.1.876890.10.20.22.4.2" /> <id nullFlavor="NA" /> <code codeSystem="local" code="ALYMR" displayName= "Absolute Lymphocytes" /> <statusCode code="completed" /> < effectiveTime value="301008103705" /> <value unit="10*3/uL" xsi:type= "PQ" value="2.05" /> <referenceRange> <observationRange> <text>0.80-3.30</text> </observationRange> </ referenceRange> </observation> </component> <component> <observation moodCode="EVN" classCode="OBS"> <templateId root= "16.840.1.760560.10.20.22.4.2" /> <id nullFlavor="NA" /> < code codeSystem="local" code="AMONR" displayName="Absolute Monocytes" /> <statusCode code="completed" /> <effectiveTime value="770874006961" /> <value unit="10*3/uL" xsi:type="PQ" value="0.53" /> < referenceRange> <observationRange> <text>0.30-1.00</text > </observationRange> </referenceRange> </observation > </component> <component> <observation moodCode="EVN" classCode="OBS"> <templateId root="16.840.1.279152.08.03.22.4.2" /> <id nullFlavor="NA" /> <code codeSystem="local" code="ASEGR" displayName="Absolute Neutrophils" /> <statusCode code="completed" /> <effectiveTime value="977957842949" /> <value unit="10*3/uL" xsi:type="PQ" value="4.64" /> <referenceRange> < observationRange> <text>1.90-7.00</text> </ observationRange> </referenceRange> </observation> </ component> <component> <observation moodCode="EVN" classCode="OBS"> <templateId root="16.840.1.093250.08.03.224.2" /> <id nullFlavor="NA" /> <code codeSystem="local" code="BASOR" displayName= "Basophils" /> <statusCode code="completed" /> <effectiveTime value="653196853769" /> <value unit="%" xsi:type="PQ" value="1" /> <referenceRange> <observationRange> <text>0-2< /text> </observationRange> </referenceRange> </ observation> </component> <component> <observation moodCode= "EVN" classCode="OBS"> <templateId root="16.840.1.260891.10.4.2 " /> <id nullFlavor="NA" /> <code codeSystem="local" code= "EOSR" displayName="Eosinophils" /> <statusCode code="completed" /> <effectiveTime value="733067938239" /> <value unit="%" xsi: type="PQ" value="6" /> <interpretationCode codeSystem="local" code="*" /> <referenceRange> <observationRange> <text>0- 4</text> </observationRange> </referenceRange> </ observation> </component> <component> <observation moodCode= "EVN" classCode="OBS"> <templateId root="2.16.840.1.481686.10..4.2 " /> <id nullFlavor="NA" /> <code codeSystem="local" code="HCT " displayName="HCT" /> <statusCode code="completed" /> < effectiveTime value="255629132788" /> <value unit="%" xsi:type="PQ " value="38.9" /> <referenceRange> <observationRange> <text>37.0-47.0</text> </observationRange> </ referenceRange> </observation> </component> <component> <observation moodCode="EVN" classCode="OBS"> <templateId root= "216.840.1.076776.08.03.22.4.2" /> <id nullFlavor="NA" /> < code codeSystem="local" code="HGB" displayName="HGB" /> <statusCode code="completed" /> <effectiveTime value="817398432715" /> < value unit="g/dL" xsi:type="PQ" value="13.4" /> <referenceRange> <observationRange> <text>12.0-16.0</text> </ observationRange> </referenceRange> </observation> </ component> <component> <observation moodCode="EVN" classCode="OBS"> <templateId root="216.840.1.965760.10...4.2" /> <id nullFlavor="NA" /> <code codeSystem="local" code="IMGA" displayName= "Immature Granulocytes" /> <statusCode code="completed" /> < effectiveTime value="565403281852" /> <value unit="%" xsi:type="PQ " value="0.1" /> <referenceRange> <observationRange> <text>0.0-1.0</text> </observationRange> </ referenceRange> </observation> </component> <component> <observation moodCode="EVN" classCode="OBS"> <templateId root= "16.840.1.249313.10.22.4.2" /> <id nullFlavor="NA" /> < code codeSystem="local" code="LYMPR" displayName="Lymphocytes" /> < statusCode code="completed" /> <effectiveTime value="655095159401" /> <value unit="%" xsi:type="PQ" value="27" /> < referenceRange> <observationRange> <text>20-46</text> </observationRange> </referenceRange> </observation> </component> <component> <observation moodCode="EVN" classCode= "OBS"> <templateId root="11.30.840.1.291812.10.22.4.2" /> < id nullFlavor="NA" /> <code codeSystem="local" code="MCH" displayName= "MCH" /> <statusCode code="completed" /> <effectiveTime value= "212232009711" /> <value unit="pg" xsi:type="PQ" value="31.2" /> <referenceRange> <observationRange> <text>27.0-32.0< /text> </observationRange> </referenceRange> </ observation> </component> <component> <observation moodCode= "EVN" classCode="OBS"> <templateId root="11.30.840.1.620140.10.2022.4.2 " /> <id nullFlavor="NA" /> <code codeSystem="local" code= "MCHC" displayName="MCHC" /> <statusCode code="completed" /> < effectiveTime value="401806699702" /> <value unit="g/dL" xsi:type="PQ" value="34.4" /> <referenceRange> <observationRange> <text>32.0-36.0</text> </observationRange> </ referenceRange> </observation> </component> <component> <observation moodCode="EVN" classCode="OBS"> <templateId root= "11.30.840.1.476932.10.22.4.2" /> <id nullFlavor="NA" /> < code codeSystem="local" code="MCV" displayName="MCV" /> <statusCode code="completed" /> <effectiveTime value="413157010275" /> < value unit="fL" xsi:type="PQ" value="90.7" /> <referenceRange> <observationRange> <text>82.0-99.0</text> </ observationRange> </referenceRange> </observation> </ component> <component> <observation moodCode="EVN" classCode="OBS"> <templateId root="11.30.840.1.509407...4.2" /> <id nullFlavor="NA" /> <code codeSystem="local" code="MONOR" displayName= "Monocytes" /> <statusCode code="completed" /> <effectiveTime value="900504310259" /> <value unit="%" xsi:type="PQ" value="7" /> <referenceRange> <observationRange> <text>4-11 </text> </observationRange> </referenceRange> </ observation> </component> <component> <observation moodCode= "EVN" classCode="OBS"> <templateId root="11.30.840.1.047035.08.03.22.4.2 " /> <id nullFlavor="NA" /> <code codeSystem="local" code="MPV " displayName="MPV" /> <statusCode code="completed" /> < effectiveTime value="480744812015" /> <value unit="fL" xsi:type="PQ" value="10.9" /> <referenceRange> <observationRange> <text>9.4-12.4</text> </observationRange> </ referenceRange> </observation> </component> <component> <observation moodCode="EVN" classCode="OBS"> <templateId root= "216.840.1.418583.08.03.22.4.2" /> <id nullFlavor="NA" /> < code codeSystem="local" code="SEGR" displayName="Neutrophils" /> < statusCode code="completed" /> <effectiveTime value="806141172424" /> <value unit="%" xsi:type="PQ" value="60" /> < referenceRange> <observationRange> <text>51-75</text> </observationRange> </referenceRange> </observation> </component> <component> <observation moodCode="EVN" classCode= "OBS"> <templateId root="216.840.1.469517.08.03.22.4.2" /> < id nullFlavor="NA" /> <code codeSystem="local" code="NRBCA" displayName ="Nucleated RBC Automated" /> <statusCode code="completed" /> <effectiveTime value="962042859612" /> <value unit="/100WBC" xsi:type= "PQ" value="0.0" /> <referenceRange> <observationRange> <text /> </observationRange> </referenceRange> </observation> </component> <component> <observation moodCode="EVN" classCode="OBS"> <templateId root= "16.840.1.403423.10.20.22.4.2" /> <id nullFlavor="NA" /> < code codeSystem="local" code="PLT" displayName="Platelet Count" /> < statusCode code="completed" /> <effectiveTime value="201104179630" /> <value unit="K/uL" xsi:type="PQ" value="255" /> < referenceRange> <observationRange> <text>150-400</text> </observationRange> </referenceRange> </observation > </component> <component> <observation moodCode="EVN" classCode="OBS"> <templateId root="16.840.1.432206.10.2022.4.2" /> <id nullFlavor="NA" /> <code codeSystem="local" code="RBC" displayName="RBC" /> <statusCode code="completed" /> < effectiveTime value="043615502453" /> <value unit="10*6/uL" xsi:type= "PQ" value="4.29" /> <referenceRange> <observationRange> <text>4.00-5.20</text> </observationRange> </ referenceRange> </observation> </component> <component> <observation moodCode="EVN" classCode="OBS"> <templateId root= "11.30.840.1.296307.10.20.22.4.2" /> <id nullFlavor="NA" /> < code codeSystem="local" code="RDW" displayName="RDW" /> <statusCode code="completed" /> <effectiveTime value="347452846303" /> < value unit="%" xsi:type="PQ" value="13.6" /> <referenceRange> <observationRange> <text>11.5-14.5</text> </ observationRange> </referenceRange> </observation> </ component> <component> <observation moodCode="EVN" classCode="OBS"> <templateId root="216.840.1.375655.10..22.4.2" /> <id nullFlavor="NA" /> <code codeSystem="local" code="WBCIR" displayName= "WBC" /> <statusCode code="completed" /> <effectiveTime value= "118047739166" /> <value unit="K/uL" xsi:type="PQ" value="7.8" /> <referenceRange> <observationRange> <text>4.8-10.8< /text> </observationRange> </referenceRange> </ observation> </component> </organizer> </entry> <entry> <organizer moodCode="EVN" classCode="BATTERY"> <templateId root= "216.840.1.602450.10..22.4.1" /> <id nullFlavor="NA" /> <code codeSystem="local" code="CMP" displayName="Comprehensive Metabolic Panel (CMP)" /> <statusCode code="completed" /> <component> <observation moodCode="EVN" classCode="OBS"> <templateId root= "216.840.1.107680.10..22.4.2" /> <id nullFlavor="NA" /> < code codeSystem="local" code="ALB" displayName="Albumin" /> < statusCode code="completed" /> <effectiveTime value="399095350163" /> <value unit="g/dL" xsi:type="PQ" value="4.2" /> < referenceRange> <observationRange> <text>3.5-4.8</text> </observationRange> </referenceRange> </observation > </component> <component> <observation moodCode="EVN" classCode="OBS"> <templateId root="216.840.1.481564.10..22.4.2" /> <id nullFlavor="NA" /> <code codeSystem="local" code="ALP" displayName="Alkaline Phosphatase" /> <statusCode code="completed" /> <effectiveTime value="" /> <value unit="U/L" xsi: type="PQ" value="57" /> <referenceRange> <observationRange> <text>26-104</text> </observationRange> </ referenceRange> </observation> </component> <component> <observation moodCode="EVN" classCode="OBS"> <templateId root= "16.840.1.090841.10...4.2" /> <id nullFlavor="NA" /> < code codeSystem="local" code="ALT" displayName="ALT (SGPT)" /> < statusCode code="completed" /> <effectiveTime value="" /> <value unit="U/L" xsi:type="PQ" value="12" /> < interpretationCode codeSystem="local" code="*" /> <referenceRange> <observationRange> <text>14-54</text> </ observationRange> </referenceRange> </observation> </ component> <component> <observation moodCode="EVN" classCode="OBS"> <templateId root="16.840.1.939790.10...4.2" /> <id nullFlavor="NA" /> <code codeSystem="local" code="AGAP" displayName= "Anion Gap" /> <statusCode code="completed" /> <effectiveTime value="" /> <value unit="mEq/L" xsi:type="PQ" value="7" /> <referenceRange> <observationRange> <text>3-20 </text> </observationRange> </referenceRange> </ observation> </component> <component> <observation moodCode= "EVN" classCode="OBS"> <templateId root="16.840.1.037821.10.20.22.4.2 " /> <id nullFlavor="NA" /> <code codeSystem="local" code="AST " displayName="AST (SGOT)" /> <statusCode code="completed" /> <effectiveTime value="755242253150" /> <value unit="U/L" xsi:type="PQ" value="12" /> <interpretationCode codeSystem="local" code="*" /> <referenceRange> <observationRange> <text>15-41</ text> </observationRange> </referenceRange> </ observation> </component> <component> <observation moodCode= "EVN" classCode="OBS"> <templateId root="840.1.854019.08.03.22.4.2 " /> <id nullFlavor="NA" /> <code codeSystem="local" code= "BILIT" displayName="Bilirubin Total" /> <statusCode code="completed" / > <effectiveTime value="860398371275" /> <value unit="mg/dL" xsi:type="PQ" value="0.5" /> <referenceRange> < observationRange> <text>0.2-1.2</text> </ observationRange> </referenceRange> </observation> </ component> <component> <observation moodCode="EVN" classCode="OBS"> <templateId root="16.840.1.325856.10.20.22.4.2" /> <id nullFlavor="NA" /> <code codeSystem="local" code="BUN" displayName="BUN " /> <statusCode code="completed" /> <effectiveTime value= "635561954885" /> <value unit="mg/dL" xsi:type="PQ" value="6" /> <referenceRange> <observationRange> <text>4-20</text > </observationRange> </referenceRange> </observation > </component> <component> <observation moodCode="EVN" classCode="OBS"> <templateId root="11.30.840.1.387097.10.22.4.2" /> <id nullFlavor="NA" /> <code codeSystem="local" code="CA" displayName="Calcium" /> <statusCode code="completed" /> < effectiveTime value="600849089203" /> <value unit="mg/dL" xsi:type="PQ " value="9.3" /> <referenceRange> <observationRange> <text>8.6-10.0</text> </observationRange> </ referenceRange> </observation> </component> <component> <observation moodCode="EVN" classCode="OBS"> <templateId root= "11.30.840.1.306265....4.2" /> <id nullFlavor="NA" /> < code codeSystem="local" code="CL" displayName="Chloride" /> < statusCode code="completed" /> <effectiveTime value="697830035244" /> <value unit="mEq/L" xsi:type="PQ" value="108" /> < referenceRange> <observationRange> <text>99-109</text> </observationRange> </referenceRange> </observation> </component> <component> <observation moodCode="EVN" classCode ="OBS"> <templateId root="11.30.840.1.877901..4.2" /> < id nullFlavor="NA" /> <code codeSystem="local" code="CO2" displayName= "CO2" /> <statusCode code="completed" /> <effectiveTime value= "650051758848" /> <value unit="mEq/L" xsi:type="PQ" value="23" /> <referenceRange> <observationRange> <text>22-32</ text> </observationRange> </referenceRange> </ observation> </component> <component> <observation moodCode= "EVN" classCode="OBS"> <templateId root="2.16.840.1.887325...4.2 " /> <id nullFlavor="NA" /> <code codeSystem="local" code= "CREAT" displayName="Creatinine" /> <statusCode code="completed" /> <effectiveTime value="" /> <value unit="mg/dL" xsi: type="PQ" value="0.73" /> <referenceRange> <observationRange > <text>0.44-1.03</text> </observationRange> </ referenceRange> </observation> </component> <component> <observation moodCode="EVN" classCode="OBS"> <templateId root= "2.16.840.1.105093.10..4.2" /> <id nullFlavor="NA" /> < code codeSystem="local" code="GLOB" displayName="Globulin" /> < statusCode code="completed" /> <effectiveTime value="587780756821" /> <value unit="g/dL" xsi:type="PQ" value="2.8" /> < referenceRange> <observationRange> <text>1.9-4.3</text> </observationRange> </referenceRange> </observation > </component> <component> <observation moodCode="EVN" classCode="OBS"> <templateId root="11.30.840.1.885878.10..22.4.2" /> <id nullFlavor="NA" /> <code codeSystem="local" code="GLU" displayName="Glucose" /> <statusCode code="completed" /> < effectiveTime value="" /> <value unit="mg/dL" xsi:type="PQ " value="89" /> <referenceRange> <observationRange> <text>70-100</text> </observationRange> </ referenceRange> </observation> </component> <component> <observation moodCode="EVN" classCode="OBS"> <templateId root= "11.30.840.1.009490.08.03.22.4.2" /> <id nullFlavor="NA" /> < code codeSystem="local" code="K" displayName="Potassium" /> < statusCode code="completed" /> <effectiveTime value="" /> <value unit="mEq/L" xsi:type="PQ" value="3.6" /> < referenceRange> <observationRange> <text>3.6-5.1</text> </observationRange> </referenceRange> </observation > </component> <component> <observation moodCode="EVN" classCode="OBS"> <templateId root="11.30.840.1.560385.1022.4.2" /> <id nullFlavor="NA" /> <code codeSystem="local" code="TP" displayName="Protein" /> <statusCode code="completed" /> < effectiveTime value="" /> <value unit="g/dL" xsi:type="PQ" value="7.0" /> <referenceRange> <observationRange> <text>6.1-7.9</text> </observationRange> </ referenceRange> </observation> </component> <component> <observation moodCode="EVN" classCode="OBS"> <templateId root= "2.16.840.1.476143.10...4.2" /> <id nullFlavor="NA" /> < code codeSystem="local" code="NA" displayName="Sodium" /> <statusCode code="completed" /> <effectiveTime value="632899184267" /> < value unit="mEq/L" xsi:type="PQ" value="138" /> <referenceRange> <observationRange> <text>136-144</text> </ observationRange> </referenceRange> </observation> </ component> </organizer> </entry> <entry> <organizer moodCode="EVN" classCode="BATTERY"> <templateId root="2.16.840.1.404752.10..22.4.1" /> <id nullFlavor="NA" /> <code codeSystem="local" code="LIPA" displayName="Lipase" /> <statusCode code="completed" /> <component> <observation moodCode="EVN" classCode="OBS"> <templateId root= "2.16.840.1.376925.10..22.4.2" /> <id nullFlavor="NA" /> < code codeSystem="local" code="LIPA" displayName="Lipase" /> < statusCode code="completed" /> <effectiveTime value="187914981551" /> <value unit="U/L" xsi:type="PQ" value="20" /> <referenceRange > <observationRange> <text>8-48</text> </ observationRange> </referenceRange> </observation> </ component> </organizer> </entry> <entry> <organizer moodCode="EVN" classCode="BATTERY"> <templateId root="11.30.840.1.226612.08.03.22.4.1" /> <id nullFlavor="NA" /> <code codeSystem="local" code="GFR" displayName ="eGFR" /> <statusCode code="completed" /> <component> < observation moodCode="EVN" classCode="OBS"> <templateId root= "840.1.910355.08.03.22.4.2" /> <id nullFlavor="NA" /> < code codeSystem="local" code="GFR" displayName="eGFR" /> <statusCode code="completed" /> <effectiveTime value="820088173860" /> < value unit="mL/min" xsi:type="PQ" value=">60" /> <referenceRange> <observationRange> <text>>60</text> </ observationRange> </referenceRange> </observation> </ component> </organizer> </entry> <entry> <organizer moodCode="EVN" classCode="BATTERY"> <templateId root="840.1.230426.08.03.22.4.1" /> <id nullFlavor="NA" /> <code codeSystem="local" code="UA" displayName= "Urinalysis with reflex microscopic" /> <statusCode code="completed" /> <component> <observation moodCode="EVN" classCode="OBS"> < templateId root="11.30.840.1.745668.08.03.22.4.2" /> <id nullFlavor="NA " /> <code codeSystem="local" code="UAPP" displayName="Appearance" /> <statusCode code="completed" /> <effectiveTime value= "906945757507" /> <value unit="NA" xsi:type="PQ" value="Turbid" /> <interpretationCode codeSystem="local" code="*" /> < referenceRange> <observationRange> <text /> < /observationRange> </referenceRange> </observation> </ component> <component> <observation moodCode="EVN" classCode="OBS"> <templateId root="840.1.360699.10..4.2" /> <id nullFlavor="NA" /> <code codeSystem="local" code="UBIL" displayName= "Bilirubin" /> <statusCode code="completed" /> <effectiveTime value="" /> <value unit="NA" xsi:type="PQ" value="Negative " /> <referenceRange> <observationRange> <text> Negative</text> </observationRange> </referenceRange> </observation> </component> <component> <observation moodCode ="EVN" classCode="OBS"> <templateId root= "840.1.631416.08.03.22.4.2" /> <id nullFlavor="NA" /> < code codeSystem="local" code="UBLD" displayName="Blood" /> <statusCode code="completed" /> <effectiveTime value="" /> < value unit="NA" xsi:type="PQ" value="Pos 1+" /> <interpretationCode codeSystem="local" code="*" /> <referenceRange> < observationRange> <text>Negative</text> </ observationRange> </referenceRange> </observation> </ component> <component> <observation moodCode="EVN" classCode="OBS"> <templateId root="840.1.241096.10..4.2" /> <id nullFlavor="NA" /> <code codeSystem="local" code="UCOLR" displayName= "Color" /> <statusCode code="completed" /> <effectiveTime value="" /> <value unit="NA" xsi:type="PQ" value="Aliza" / > <interpretationCode codeSystem="local" code="*" /> < referenceRange> <observationRange> <text /> < /observationRange> </referenceRange> </observation> </ component> <component> <observation moodCode="EVN" classCode="OBS"> <templateId root="11.30.840.1.618295.10.4.2" /> <id nullFlavor="NA" /> <code codeSystem="local" code="UGLU" displayName= "Glucose, Urine" /> <statusCode code="completed" /> < effectiveTime value="" /> <value unit="" xsi:type="PQ" value="Negative" /> <referenceRange> <observationRange> <text>Negative</text> </observationRange> </ referenceRange> </observation> </component> <component> <observation moodCode="EVN" classCode="OBS"> <templateId root= "11.30.840.1.657182.08.03.22.4.2" /> <id nullFlavor="NA" /> < code codeSystem="local" code="UKET" displayName="Ketones" /> < statusCode code="completed" /> <effectiveTime value="" /> <value unit="" xsi:type="PQ" value="Negative" /> < referenceRange> <observationRange> <text>Negative</text > </observationRange> </referenceRange> </observation > </component> <component> <observation moodCode="EVN" classCode="OBS"> <templateId root="11.30.840.1.260002.08.03.22.4.2" /> <id nullFlavor="NA" /> <code codeSystem="local" code="ULEU" displayName="Leukocyte Esterase" /> <statusCode code="completed" /> <effectiveTime value="" /> <value unit="NA" xsi:type ="PQ" value="Pos 3+" /> <interpretationCode codeSystem="local" code="* " /> <referenceRange> <observationRange> <text> Negative</text> </observationRange> </referenceRange> </observation> </component> <component> <observation moodCode ="EVN" classCode="OBS"> <templateId root= "216.840.1.984932.10...4.2" /> <id nullFlavor="NA" /> < code codeSystem="local" code="UNIT" displayName="Nitrites" /> < statusCode code="completed" /> <effectiveTime value="" /> <value unit="NA" xsi:type="PQ" value="Negative" /> < referenceRange> <observationRange> <text>Negative</text > </observationRange> </referenceRange> </observation > </component> <component> <observation moodCode="EVN" classCode="OBS"> <templateId root="2.16.840.1.183803.10...4.2" /> <id nullFlavor="NA" /> <code codeSystem="local" code="UPH" displayName="pH" /> <statusCode code="completed" /> < effectiveTime value="" /> <value unit="NA" xsi:type="PQ" value="7.0" /> <referenceRange> <observationRange> <text>5.0-8.0</text> </observationRange> </ referenceRange> </observation> </component> <component> <observation moodCode="EVN" classCode="OBS"> <templateId root= "16.840.1.854541.10..22.4.2" /> <id nullFlavor="NA" /> < code codeSystem="local" code="UPRO" displayName="Protein" /> < statusCode code="completed" /> <effectiveTime value="936122150790" /> <value unit="NA" xsi:type="PQ" value="Pos 2+" /> < interpretationCode codeSystem="local" code="*" /> <referenceRange> <observationRange> <text>Negative</text> </ observationRange> </referenceRange> </observation> </ component> <component> <observation moodCode="EVN" classCode="OBS"> <templateId root="11.30.840.1.223071.08.03.22.4.2" /> <id nullFlavor="NA" /> <code codeSystem="local" code="USPG" displayName= "Specific Homer" /> <statusCode code="completed" /> < effectiveTime value="787150892052" /> <value unit="NA" xsi:type="PQ" value="1.015" /> <referenceRange> <observationRange> <text>1.003-1.030</text> </observationRange> </ referenceRange> </observation> </component> <component> <observation moodCode="EVN" classCode="OBS"> <templateId root= "11.30.840.1.410946.10...4.2" /> <id nullFlavor="NA" /> < code codeSystem="local" code="UTYP" displayName="UA Collection type" /> <statusCode code="completed" /> <effectiveTime value="498099347562" / > <value unit="NA" xsi:type="PQ" value="Clean Catch" /> < referenceRange> <observationRange> <text /> < /observationRange> </referenceRange> </observation> </ component> <component> <observation moodCode="EVN" classCode="OBS"> <templateId root="216.840.1.125524.10.22.4.2" /> <id nullFlavor="NA" /> <code codeSystem="local" code="UURO" displayName= "Urobilinogen" /> <statusCode code="completed" /> < effectiveTime value="994320735971" /> <value unit="mg/dL" xsi:type="PQ " value="Negative" /> <referenceRange> <observationRange> <text><1.0</text> </observationRange> </ referenceRange> </observation> </component> </organizer> </entry > <entry> <organizer moodCode="EVN" classCode="BATTERY"> <templateId root="16.840.1.553850.10..22.4.1" /> <id nullFlavor="NA" /> <code codeSystem="local" code="UMIC" displayName="Urine Microscopic" /> < statusCode code="completed" /> <component> <observation moodCode= "EVN" classCode="OBS"> <templateId root="216.840.1.165217.10..22.4.2 " /> <id nullFlavor="NA" /> <code codeSystem="local" code= "UTRIC" displayName="Trichomonas" /> <statusCode code="completed" /> <effectiveTime value="567436186326" /> <value unit="NA" xsi: type="PQ" value="Present" /> <interpretationCode codeSystem="local" code="*" /> <referenceRange> <observationRange> <text /> </observationRange> </referenceRange> </ observation> </component> <component> <observation moodCode= "EVN" classCode="OBS"> <templateId root="16.840.1.522485.1022.4.2 " /> <id nullFlavor="NA" /> <code codeSystem="local" code= "UBAC" displayName="Bacteria" /> <statusCode code="completed" /> <effectiveTime value="" /> <value unit="NA" xsi:type= "PQ" value="Moderate" /> <interpretationCode codeSystem="local" code="* " /> <referenceRange> <observationRange> <text /> </observationRange> </referenceRange> </ observation> </component> <component> <observation moodCode= "EVN" classCode="OBS"> <templateId root="11.30.840.1.380131.10.4.2 " /> <id nullFlavor="NA" /> <code codeSystem="local" code= "UEPI" displayName="Epithelial Cells" /> <statusCode code="completed" / > <effectiveTime value="" /> <value unit="/HPF" xsi:type="PQ" value="10" /> <referenceRange> < observationRange> <text /> </observationRange> </referenceRange> </observation> </component> <component> <observation moodCode="EVN" classCode="OBS"> <templateId root= "11.30.840.1.668166.10.22.4.2" /> <id nullFlavor="NA" /> < code codeSystem="local" code="URBC" displayName="RBC, Urine" /> < statusCode code="completed" /> <effectiveTime value="375719697007" /> <value unit="/HPF" xsi:type="PQ" value="2" /> <referenceRange > <observationRange> <text>0-2</text> </ observationRange> </referenceRange> </observation> </ component> <component> <observation moodCode="EVN" classCode="OBS"> <templateId root="216.840.1.522602.10.4.2" /> <id nullFlavor="NA" /> <code codeSystem="local" code="UMUC" displayName= "Urine Mucus" /> <statusCode code="completed" /> < effectiveTime value="430583625365" /> <value unit="NA" xsi:type="PQ" value="Present" /> <referenceRange> <observationRange> <text /> </observationRange> </referenceRange> </observation> </component> <component> <observation moodCode="EVN" classCode="OBS"> <templateId root= "216.840.1.691814.08.03.22.4.2" /> <id nullFlavor="NA" /> < code codeSystem="local" code="UWBC" displayName="WBC, Urine" /> < statusCode code="completed" /> <effectiveTime value="466003482892" /> <value unit="/HPF" xsi:type="PQ" value="10" /> < interpretationCode codeSystem="local" code="*" /> <referenceRange> <observationRange> <text>0-4</text> </ observationRange> </referenceRange> </observation> </ component> </organizer> </entry> <entry> <organizer moodCode="EVN" classCode="BATTERY"> <templateId root="216.840.1.169361.10..4.1" /> <id nullFlavor="NA" /> <code codeSystem="local" code="PREGN" displayName=" Screen, Urine NPT" /> <statusCode code="completed" / > <component> <observation moodCode="EVN" classCode="OBS"> <templateId root="216.840.1.888223.10..22.4.2" /> <id nullFlavor="NA " /> <code codeSystem="local" code="PREGN" displayName=" Screen, Urine NPT" /> <statusCode code="completed" /> < effectiveTime value="323786290007" /> <value unit="NA" xsi:type="PQ" value="Negative" /> <referenceRange> <observationRange> <text /> </observationRange> </referenceRange> </observation> </component> </organizer> </entry> <entry> < organizer moodCode="EVN" classCode="BATTERY"> <templateId root= "216.840.1.432934.10..22.4.1" /> <id nullFlavor="NA" /> <code codeSystem="local" code="UPREG" displayName=" Screen, Urine" /> < statusCode code="completed" /> <component> <observation moodCode= "EVN" classCode="OBS"> <templateId root="216.840.1.595815.10..22.4.2 " /> <id nullFlavor="NA" /> <code codeSystem="local" code= "UPREG" displayName=" Screen, Urine" /> <statusCode code= "completed" /> <effectiveTime value="254320547110" /> <value unit="NA" xsi:type="PQ" value="Negative" /> <referenceRange> <observationRange> <text /> </observationRange> </referenceRange> </observation> </component> </organizer> < /entry> <entry> <organizer moodCode="EVN" classCode="BATTERY"> < templateId root="216.840.1.193567...4.1" /> <id nullFlavor="NA" /> <code codeSystem="local" code="UA" displayName="Urinalysis with reflex microscopic" /> <statusCode code="completed" /> <component> < observation moodCode="EVN" classCode="OBS"> <templateId root= "16.840.1.354078.08.03.22.4.2" /> <id nullFlavor="NA" /> < code codeSystem="local" code="UAPP" displayName="Appearance" /> < statusCode code="completed" /> <effectiveTime value="340888100050" /> <value unit="NA" xsi:type="PQ" value="Sl Cloudy" /> < referenceRange> <observationRange> <text /> < /observationRange> </referenceRange> </observation> </ component> <component> <observation moodCode="EVN" classCode="OBS"> <templateId root="840.1.401819.08.03.22.4.2" /> <id nullFlavor="NA" /> <code codeSystem="local" code="UBIL" displayName= "Bilirubin" /> <statusCode code="completed" /> <effectiveTime value="053945096671" /> <value unit="NA" xsi:type="PQ" value="Negative " /> <referenceRange> <observationRange> <text> Negative</text> </observationRange> </referenceRange> </observation> </component> <component> <observation moodCode ="EVN" classCode="OBS"> <templateId root= "11.30.840.1.903919.08.03.22.4.2" /> <id nullFlavor="NA" /> < code codeSystem="local" code="UBLD" displayName="Blood" /> <statusCode code="completed" /> <effectiveTime value="" /> < value unit="NA" xsi:type="PQ" value="Negative" /> <referenceRange> <observationRange> <text>Negative</text> </ observationRange> </referenceRange> </observation> </ component> <component> <observation moodCode="EVN" classCode="OBS"> <templateId root="11.30.840.1.550675.08.03.22.4.2" /> <id nullFlavor="NA" /> <code codeSystem="local" code="UCOLR" displayName= "Color" /> <statusCode code="completed" /> <effectiveTime value="525890854136" /> <value unit="NA" xsi:type="PQ" value="Aliza" / > <interpretationCode codeSystem="local" code="*" /> < referenceRange> <observationRange> <text /> < /observationRange> </referenceRange> </observation> </ component> <component> <observation moodCode="EVN" classCode="OBS"> <templateId root="840.1.701711.08.03.22.4.2" /> <id nullFlavor="NA" /> <code codeSystem="local" code="UGLU" displayName= "Glucose, Urine" /> <statusCode code="completed" /> < effectiveTime value="375625812040" /> <value unit="" xsi:type="PQ" value="Negative" /> <referenceRange> <observationRange> <text>Negative</text> </observationRange> </ referenceRange> </observation> </component> <component> <observation moodCode="EVN" classCode="OBS"> <templateId root= "11.30.840.1.568271.08.03.22.4.2" /> <id nullFlavor="NA" /> < code codeSystem="local" code="UKET" displayName="Ketones" /> < statusCode code="completed" /> <effectiveTime value="496694581647" /> <value unit="" xsi:type="PQ" value="Trace" /> < interpretationCode codeSystem="local" code="*" /> <referenceRange> <observationRange> <text>Negative</text> </ observationRange> </referenceRange> </observation> </ component> <component> <observation moodCode="EVN" classCode="OBS"> <templateId root="216.840.1.828415.10..22.4.2" /> <id nullFlavor="NA" /> <code codeSystem="local" code="ULEU" displayName= "Leukocyte Esterase" /> <statusCode code="completed" /> < effectiveTime value="126984718378" /> <value unit="NA" xsi:type="PQ" value="Pos 3+" /> <interpretationCode codeSystem="local" code="*" /> <referenceRange> <observationRange> <text> Negative</text> </observationRange> </referenceRange> </observation> </component> <component> <observation moodCode ="EVN" classCode="OBS"> <templateId root= "16.840.1.601334.10..22.4.2" /> <id nullFlavor="NA" /> < code codeSystem="local" code="UNIT" displayName="Nitrites" /> < statusCode code="completed" /> <effectiveTime value="745366160921" /> <value unit="NA" xsi:type="PQ" value="Positive" /> < interpretationCode codeSystem="local" code="*" /> <referenceRange> <observationRange> <text>Negative</text> </ observationRange> </referenceRange> </observation> </ component> <component> <observation moodCode="EVN" classCode="OBS"> <templateId root="16.840.1.706205.10..4.2" /> <id nullFlavor="NA" /> <code codeSystem="local" code="UPH" displayName="pH " /> <statusCode code="completed" /> <effectiveTime value= "874827476996" /> <value unit="NA" xsi:type="PQ" value="5.0" /> <referenceRange> <observationRange> <text>5.0-8.0</ text> </observationRange> </referenceRange> </ observation> </component> <component> <observation moodCode= "EVN" classCode="OBS"> <templateId root="16.840.1.525985...4.2 " /> <id nullFlavor="NA" /> <code codeSystem="local" code= "UPRO" displayName="Protein" /> <statusCode code="completed" /> <effectiveTime value="" /> <value unit="NA" xsi:type="PQ " value="Negative" /> <referenceRange> <observationRange> <text>Negative</text> </observationRange> </ referenceRange> </observation> </component> <component> <observation moodCode="EVN" classCode="OBS"> <templateId root= "11.30.840.1.296306.10..22.4.2" /> <id nullFlavor="NA" /> < code codeSystem="local" code="USPG" displayName="Specific Homer" /> < statusCode code="completed" /> <effectiveTime value="303096782558" /> <value unit="NA" xsi:type="PQ" value="1.010" /> < referenceRange> <observationRange> <text>1.003-1.030</ text> </observationRange> </referenceRange> </ observation> </component> <component> <observation moodCode= "EVN" classCode="OBS"> <templateId root="216.840.1.763506.10.4.2 " /> <id nullFlavor="NA" /> <code codeSystem="local" code= "UTYP" displayName="UA Collection type" /> <statusCode code="completed " /> <effectiveTime value="363130825500" /> <value unit="NA" xsi:type="PQ" value="Clean Catch" /> <referenceRange> < observationRange> <text /> </observationRange> </referenceRange> </observation> </component> <component> <observation moodCode="EVN" classCode="OBS"> <templateId root= "11.30.840.1.621282.08.03.22.4.2" /> <id nullFlavor="NA" /> < code codeSystem="local" code="UURO" displayName="Urobilinogen" /> < statusCode code="completed" /> <effectiveTime value="522400379786" /> <value unit="mg/dL" xsi:type="PQ" value="2.0" /> < interpretationCode codeSystem="local" code="*" /> <referenceRange> <observationRange> <text><1.0</text> </ observationRange> </referenceRange> </observation> </ component> </organizer> </entry> <entry> <organizer moodCode="EVN" classCode="BATTERY"> <templateId root="216.840.1.287346.08.03.22.4.1" /> <id nullFlavor="NA" /> <code codeSystem="local" code="UMIC" displayName="Urine Microscopic" /> <statusCode code="completed" /> < component> <observation moodCode="EVN" classCode="OBS"> < templateId root="16.840.1.296400.08.03.22.4.2" /> <id nullFlavor="NA " /> <code codeSystem="local" code="UBAC" displayName="Bacteria" /> <statusCode code="completed" /> <effectiveTime value= "" /> <value unit="NA" xsi:type="PQ" value="Occasional" /> <interpretationCode codeSystem="local" code="*" /> < referenceRange> <observationRange> <text /> < /observationRange> </referenceRange> </observation> </ component> <component> <observation moodCode="EVN" classCode="OBS"> <templateId root="11.30.840.1.967302.08.03.22.4.2" /> <id nullFlavor="NA" /> <code codeSystem="local" code="UEPI" displayName= "Epithelial Cells" /> <statusCode code="completed" /> < effectiveTime value="" /> <value unit="/HPF" xsi:type="PQ" value="2" /> <referenceRange> <observationRange> <text /> </observationRange> </referenceRange> </ observation> </component> <component> <observation moodCode= "EVN" classCode="OBS"> <templateId root="11.30.840.1.819294.10.4.2 " /> <id nullFlavor="NA" /> <code codeSystem="local" code= "URBC" displayName="RBC, Urine" /> <statusCode code="completed" /> <effectiveTime value="" /> <value unit="/HPF" xsi: type="PQ" value="0" /> <referenceRange> <observationRange> <text>0-2</text> </observationRange> </ referenceRange> </observation> </component> <component> <observation moodCode="EVN" classCode="OBS"> <templateId root= "16.840.1.541868.10..4.2" /> <id nullFlavor="NA" /> < code codeSystem="local" code="UMUC" displayName="Urine Mucus" /> < statusCode code="completed" /> <effectiveTime value="468646335314" /> <value unit="NA" xsi:type="PQ" value="Present" /> < referenceRange> <observationRange> <text /> < /observationRange> </referenceRange> </observation> </ component> <component> <observation moodCode="EVN" classCode="OBS"> <templateId root="16.840.1.033257.08.03.22.4.2" /> <id nullFlavor="NA" /> <code codeSystem="local" code="UWBC" displayName= "WBC, Urine" /> <statusCode code="completed" /> < effectiveTime value="899574420266" /> <value unit="/HPF" xsi:type="PQ" value="10" /> <interpretationCode codeSystem="local" code="*" /> <referenceRange> <observationRange> <text>0-4</text > </observationRange> </referenceRange> </observation > </component> </organizer> </entry> <entry> <organizer moodCode= "EVN" classCode="BATTERY"> <templateId root="216.840.1.162886.10..4.1 " /> <id nullFlavor="NA" /> <code codeSystem="local" code="UDRGH" displayName="Urine Drug Screen" /> <statusCode code="completed" /> < component> <observation moodCode="EVN" classCode="OBS"> < templateId root="216.840.1.009030.10...4.2" /> <id nullFlavor="NA " /> <code codeSystem="local" code="UAMP1" displayName="Amph/Meth/ Ecstasy" /> <statusCode code="completed" /> <effectiveTime value="" /> <value unit="NA" xsi:type="PQ" value="Positive " /> <interpretationCode codeSystem="local" code="*" /> < referenceRange> <observationRange> <text /> < /observationRange> </referenceRange> </observation> </ component> <component> <observation moodCode="EVN" classCode="OBS"> <templateId root="216.840.1.142803.08.03.22.4.2" /> <id nullFlavor="NA" /> <code codeSystem="local" code="UBAR1" displayName= "Barbiturates" /> <statusCode code="completed" /> < effectiveTime value="" /> <value unit="NA" xsi:type="PQ" value="Negative" /> <referenceRange> <observationRange> <text /> </observationRange> </referenceRange> </observation> </component> <component> <observation moodCode="EVN" classCode="OBS"> <templateId root= "216.840.1.917070.10...4.2" /> <id nullFlavor="NA" /> < code codeSystem="local" code="UBEN1" displayName="Benzodiazepine" /> < statusCode code="completed" /> <effectiveTime value="261050330813" /> <value unit="NA" xsi:type="PQ" value="Negative" /> < referenceRange> <observationRange> <text /> < /observationRange> </referenceRange> </observation> </ component> <component> <observation moodCode="EVN" classCode="OBS"> <templateId root="16.840.1.751871.10..4.2" /> <id nullFlavor="NA" /> <code codeSystem="local" code="UCAN1" displayName= "Cannabinoid" /> <statusCode code="completed" /> < effectiveTime value="451155316275" /> <value unit="NA" xsi:type="PQ" value="Positive" /> <interpretationCode codeSystem="local" code="*" /> <referenceRange> <observationRange> <text /> </observationRange> </referenceRange> </observation> </component> <component> <observation moodCode="EVN" classCode ="OBS"> <templateId root="11.30.840.1.915473.08.03.22.4.2" /> < id nullFlavor="NA" /> <code codeSystem="local" code="UCOC1" displayName ="Cocaine" /> <statusCode code="completed" /> <effectiveTime value="[id number]" /> <value unit="NA" xsi:type="PQ" value="Negative " /> <referenceRange> <observationRange> <text /> </observationRange> </referenceRange> </ observation> </component> <component> <observation moodCode= "EVN" classCode="OBS"> <templateId root="11.30.840.1.137024.08.03.22.4.2 " /> <id nullFlavor="NA" /> <code codeSystem="local" code= "UMTD1" displayName="EDDP (Methadone met.)" /> <statusCode code= "completed" /> <effectiveTime value="623793421277" /> <value unit="NA" xsi:type="PQ" value="Negative" /> <referenceRange> <observationRange> <text /> </observationRange> </referenceRange> </observation> </component> <component> <observation moodCode="EVN" classCode="OBS"> <templateId root= "216.840.1.108686.10...4.2" /> <id nullFlavor="NA" /> < code codeSystem="local" code="UOPI1" displayName="Opiate" /> < statusCode code="completed" /> <effectiveTime value="155418085746" /> <value unit="NA" xsi:type="PQ" value="Negative" /> < referenceRange> <observationRange> <text /> < /observationRange> </referenceRange> </observation> </ component> <component> <observation moodCode="EVN" classCode="OBS"> <templateId root="11.30.840.1.488460.10..4.2" /> <id nullFlavor="NA" /> <code codeSystem="local" code="UPCP1" displayName= "Phencyclidine (PCP)" /> <statusCode code="completed" /> < effectiveTime value="592466590971" /> <value unit="NA" xsi:type="PQ" value="Negative" /> <referenceRange> <observationRange> <text /> </observationRange> </referenceRange> </observation> </component> </organizer> </entry> <entry> < organizer moodCode="EVN" classCode="BATTERY"> <templateId root= "11.30.840.1.565020.10..22.4.1" /> <id nullFlavor="NA" /> <code codeSystem="local" code="UA" displayName="URINALYSIS, ROUTINE" /> < statusCode code="completed" /> <component> <observation moodCode= "EVN" classCode="OBS"> <templateId root="11.30.840.1.314486.08.03.22.4.2 " /> <id nullFlavor="NA" /> <code codeSystem="local" code= "LEUESU" displayName="UA LEUKOCYTE ESTERASE DIPSTICK" /> <statusCode code="completed" /> <effectiveTime value="" /> < value unit="" xsi:type="PQ" value="NEGATIVE" /> <referenceRange> <observationRange> <text>NEGATIVE</text> </ observationRange> </referenceRange> </observation> </ component> <component> <observation moodCode="EVN" classCode="OBS"> <templateId root="11.30.840.1.753479.08.03.22.4.2" /> <id nullFlavor="NA" /> <code codeSystem="local" code="NITRIU" displayName= "UA NITRITE DIPSTICK" /> <statusCode code="completed" /> < effectiveTime value="" /> <value unit="" xsi:type="PQ" value="NEGATIVE" /> <referenceRange> <observationRange> <text>NEGATIVE</text> </observationRange> </ referenceRange> </observation> </component> <component> <observation moodCode="EVN" classCode="OBS"> <templateId root= "11.30.840.1.145678.08.03.22.4.2" /> <id nullFlavor="NA" /> < code codeSystem="local" code="PROTEIU" displayName="UA PROTEIN DIPSTICK" /> <statusCode code="completed" /> <effectiveTime value= "" /> <value unit="" xsi:type="PQ" value="NEGATIVE" /> <referenceRange> <observationRange> <text>NEGATIVE </text> </observationRange> </referenceRange> </ observation> </component> <component> <observation moodCode= "EVN" classCode="OBS"> <templateId root="16.840.1.023759.10.4.2 " /> <id nullFlavor="NA" /> <code codeSystem="local" code= "DGLUU" displayName="UA GLUCOSE DIPSTICK" /> <statusCode code= "completed" /> <effectiveTime value="" /> <value unit="" xsi:type="PQ" value="NEGATIVE" /> <referenceRange> < observationRange> <text>NEGATIVE</text> </ observationRange> </referenceRange> </observation> </ component> <component> <observation moodCode="EVN" classCode="OBS"> <templateId root="11.30.840.1.045484.08.03.22.4.2" /> <id nullFlavor="NA" /> <code codeSystem="local" code="KETONU" displayName= "UA KETONE DIPSTICK" /> <statusCode code="completed" /> < effectiveTime value="004288795134" /> <value unit="" xsi:type="PQ" value="NEGATIVE" /> <referenceRange> <observationRange> <text>NEGATIVE</text> </observationRange> </ referenceRange> </observation> </component> <component> <observation moodCode="EVN" classCode="OBS"> <templateId root= "11.30.840.1.752131.08.03.22.4.2" /> <id nullFlavor="NA" /> < code codeSystem="local" code="UROBILU" displayName="UA UROBILINOGEN DIPSTICK" / > <statusCode code="completed" /> <effectiveTime value= "530031956236" /> <value unit="" xsi:type="PQ" value="NORMAL" /> <referenceRange> <observationRange> <text>NORMAL</ text> </observationRange> </referenceRange> </ observation> </component> <component> <observation moodCode= "EVN" classCode="OBS"> <templateId root="11.30.840.1.208269.08.03.22.4.2 " /> <id nullFlavor="NA" /> <code codeSystem="local" code= "BILU" displayName="UA BILIRUBIN DIPSTICK" /> <statusCode code= "completed" /> <effectiveTime value="294341924786" /> <value unit="" xsi:type="PQ" value="NEGATIVE" /> <referenceRange> < observationRange> <text>NEGATIVE</text> </ observationRange> </referenceRange> </observation> </ component> <component> <observation moodCode="EVN" classCode="OBS"> <templateId root="840.1.354180.08.03.22.4.2" /> <id nullFlavor="NA" /> <code codeSystem="local" code="ABDELRAHMAN" displayName="UA BLOOD DIPSTICK" /> <statusCode code="completed" /> < effectiveTime value="957774577752" /> <value unit="" xsi:type="PQ" value="NEGATIVE" /> <referenceRange> <observationRange> <text>NEGATIVE</text> </observationRange> </ referenceRange> </observation> </component> <component> <observation moodCode="EVN" classCode="OBS"> <templateId root= "11.30.840.1.691677.08.03.22.4.2" /> <id nullFlavor="NA" /> < code codeSystem="local" code="SPGRU" displayName="UA SPECIFIC GRAVITY" /> <statusCode code="completed" /> <effectiveTime value="258588215487 " /> <value unit="" xsi:type="PQ" value=">=1.030" /> < interpretationCode codeSystem="local" code="*" /> <referenceRange> <observationRange> <text>1.015-1.025</text> </ observationRange> </referenceRange> </observation> </ component> <component> <observation moodCode="EVN" classCode="OBS"> <templateId root="16.840.1.896136.08.03.22.4.2" /> <id nullFlavor="NA" /> <code codeSystem="local" code="COLTON" displayName="UR PH" /> <statusCode code="completed" /> <effectiveTime value= "461377091626" /> <value unit="" xsi:type="PQ" value="5.5" /> <referenceRange> <observationRange> <text>5.0-7.0</text > </observationRange> </referenceRange> </observation > </component> </organizer> </entry> <entry> <organizer moodCode= "EVN" classCode="BATTERY"> <templateId root="11.30.840.1.672447.08.03.22.4.1 " /> <id nullFlavor="NA" /> <code codeSystem="local" code="PREGU" displayName="UR TEST" /> <statusCode code="completed" /> < component> <observation moodCode="EVN" classCode="OBS"> < templateId root="11.30.840.1.680476.22.4.2" /> <id nullFlavor="NA " /> <code codeSystem="local" code="PREGU" displayName="UR TEST" /> <statusCode code="completed" /> <effectiveTime value= "938840652972" /> <value unit="" xsi:type="PQ" value="NEGATIVE" /> <referenceRange> <observationRange> <text>NEGATIVE </text> </observationRange> </referenceRange> </ observation> </component> </organizer> </entry> <entry> <organizer moodCode="EVN" classCode="BATTERY"> <templateId root= "16.840.1.464621.10.4.1" /> <id nullFlavor="NA" /> <code codeSystem="local" code="UPREG" displayName=" Screen, Urine" /> < statusCode code="completed" /> <component> <observation moodCode= "EVN" classCode="OBS"> <templateId root="216.840.1.263684...4.2 " /> <id nullFlavor="NA" /> <code codeSystem="local" code= "UPREG" displayName=" Screen, Urine" /> <statusCode code= "completed" /> <effectiveTime value="775755575039" /> <value unit="NA" xsi:type="PQ" value="Negative" /> <referenceRange> <observationRange> <text /> </observationRange> </referenceRange> </observation> </component> </organizer> < /entry> <entry> <organizer moodCode="EVN" classCode="BATTERY"> < templateId root="11.30.840.1.757450.10..4.1" /> <id nullFlavor="NA" /> <code codeSystem="local" code="CBCWD" displayName="CBC With Platelet and Differential" /> <statusCode code="completed" /> <component> < observation moodCode="EVN" classCode="OBS"> <templateId root= "11.30.840.1.274426.08.03.22.4.2" /> <id nullFlavor="NA" /> < code codeSystem="local" code="ABASR" displayName="Absolute Basophils" /> <statusCode code="completed" /> <effectiveTime value="" /> <value unit="10*3/uL" xsi:type="PQ" value="0.03" /> < referenceRange> <observationRange> <text>0.00-0.20</text > </observationRange> </referenceRange> </observation > </component> <component> <observation moodCode="EVN" classCode="OBS"> <templateId root="11.30.840.1.522330.08.03.224.2" /> <id nullFlavor="NA" /> <code codeSystem="local" code="AEOSR" displayName="Absolute Eosinophils" /> <statusCode code="completed" /> <effectiveTime value="" /> <value unit="10*3/uL" xsi:type="PQ" value="0.49" /> <referenceRange> < observationRange> <text>0.00-0.50</text> </ observationRange> </referenceRange> </observation> </ component> <component> <observation moodCode="EVN" classCode="OBS"> <templateId root="11.30.840.1.131397.08.03.224.2" /> <id nullFlavor="NA" /> <code codeSystem="local" code="ALYMR" displayName= "Absolute Lymphocytes" /> <statusCode code="completed" /> < effectiveTime value="" /> <value unit="10*3/uL" xsi:type= "PQ" value="2.01" /> <referenceRange> <observationRange> <text>0.80-3.30</text> </observationRange> </ referenceRange> </observation> </component> <component> <observation moodCode="EVN" classCode="OBS"> <templateId root= "216.840.1.831632.10.4.2" /> <id nullFlavor="NA" /> < code codeSystem="local" code="AMONR" displayName="Absolute Monocytes" /> <statusCode code="completed" /> <effectiveTime value="" /> <value unit="10*3/uL" xsi:type="PQ" value="0.72" /> < referenceRange> <observationRange> <text>0.30-1.00</text > </observationRange> </referenceRange> </observation > </component> <component> <observation moodCode="EVN" classCode="OBS"> <templateId root="11.30.840.1.655181.10.4.2" /> <id nullFlavor="NA" /> <code codeSystem="local" code="ASEGR" displayName="Absolute Neutrophils" /> <statusCode code="completed" /> <effectiveTime value="" /> <value unit="10*3/uL" xsi:type="PQ" value="5.63" /> <referenceRange> < observationRange> <text>1.90-7.00</text> </ observationRange> </referenceRange> </observation> </ component> <component> <observation moodCode="EVN" classCode="OBS"> <templateId root="11.30.840.1.440709.22.4.2" /> <id nullFlavor="NA" /> <code codeSystem="local" code="BASOR" displayName= "Basophils" /> <statusCode code="completed" /> <effectiveTime value="" /> <value unit="%" xsi:type="PQ" value="0" /> <referenceRange> <observationRange> <text>0-2< /text> </observationRange> </referenceRange> </ observation> </component> <component> <observation moodCode= "EVN" classCode="OBS"> <templateId root="216.840.1.879775.10..4.2 " /> <id nullFlavor="NA" /> <code codeSystem="local" code= "EOSR" displayName="Eosinophils" /> <statusCode code="completed" /> <effectiveTime value="944650352370" /> <value unit="%" xsi: type="PQ" value="6" /> <interpretationCode codeSystem="local" code="*" /> <referenceRange> <observationRange> <text>0- 4</text> </observationRange> </referenceRange> </ observation> </component> <component> <observation moodCode= "EVN" classCode="OBS"> <templateId root="11.30.840.1.600704.08.03.22.4.2 " /> <id nullFlavor="NA" /> <code codeSystem="local" code="HCT " displayName="HCT" /> <statusCode code="completed" /> < effectiveTime value="987156065464" /> <value unit="%" xsi:type="PQ " value="36.1" /> <interpretationCode codeSystem="local" code="*" /> <referenceRange> <observationRange> <text>37.0- 47.0</text> </observationRange> </referenceRange> </ observation> </component> <component> <observation moodCode= "EVN" classCode="OBS"> <templateId root="11.30.840.1.389569.08.03.22.4.2 " /> <id nullFlavor="NA" /> <code codeSystem="local" code="HGB " displayName="HGB" /> <statusCode code="completed" /> < effectiveTime value="" /> <value unit="g/dL" xsi:type="PQ" value="12.3" /> <referenceRange> <observationRange> <text>12.0-16.0</text> </observationRange> </ referenceRange> </observation> </component> <component> <observation moodCode="EVN" classCode="OBS"> <templateId root= "2.16.840.1.836136.08.03.22.4.2" /> <id nullFlavor="NA" /> < code codeSystem="local" code="IMGA" displayName="Immature Granulocytes" /> <statusCode code="completed" /> <effectiveTime value=" " /> <value unit="%" xsi:type="PQ" value="0.2" /> < referenceRange> <observationRange> <text>0.0-1.0</text> </observationRange> </referenceRange> </observation > </component> <component> <observation moodCode="EVN" classCode="OBS"> <templateId root="2.16.840.1.354041.08.03.22.4.2" /> <id nullFlavor="NA" /> <code codeSystem="local" code="LYMPR" displayName="Lymphocytes" /> <statusCode code="completed" /> < effectiveTime value="" /> <value unit="%" xsi:type="PQ " value="23" /> <referenceRange> <observationRange> <text>20-46</text> </observationRange> </ referenceRange> </observation> </component> <component> <observation moodCode="EVN" classCode="OBS"> <templateId root= "11.30.840.1.650216.10.2022.4.2" /> <id nullFlavor="NA" /> < code codeSystem="local" code="MCH" displayName="MCH" /> <statusCode code="completed" /> <effectiveTime value="" /> < value unit="pg" xsi:type="PQ" value="31.3" /> <referenceRange> <observationRange> <text>27.0-32.0</text> </ observationRange> </referenceRange> </observation> </ component> <component> <observation moodCode="EVN" classCode="OBS"> <templateId root="11.30.840.1.843837..22.4.2" /> <id nullFlavor="NA" /> <code codeSystem="local" code="MCHC" displayName= "MCHC" /> <statusCode code="completed" /> <effectiveTime value ="" /> <value unit="g/dL" xsi:type="PQ" value="34.1" /> <referenceRange> <observationRange> <text>32.0- 36.0</text> </observationRange> </referenceRange> </ observation> </component> <component> <observation moodCode= "EVN" classCode="OBS"> <templateId root="11.30.840.1.601801.10.20.22.4.2 " /> <id nullFlavor="NA" /> <code codeSystem="local" code="MCV " displayName="MCV" /> <statusCode code="completed" /> < effectiveTime value="" /> <value unit="fL" xsi:type="PQ" value="91.9" /> <referenceRange> <observationRange> <text>82.0-99.0</text> </observationRange> </ referenceRange> </observation> </component> <component> <observation moodCode="EVN" classCode="OBS"> <templateId root= "11.30.840.1.727365.10..4.2" /> <id nullFlavor="NA" /> < code codeSystem="local" code="MONOR" displayName="Monocytes" /> < statusCode code="completed" /> <effectiveTime value="" /> <value unit="%" xsi:type="PQ" value="8" /> <referenceRange > <observationRange> <text>4-11</text> </ observationRange> </referenceRange> </observation> </ component> <component> <observation moodCode="EVN" classCode="OBS"> <templateId root="11.30.840.1.203141.08.03.22.4.2" /> <id nullFlavor="NA" /> <code codeSystem="local" code="MPV" displayName="MPV " /> <statusCode code="completed" /> <effectiveTime value= "" /> <value unit="fL" xsi:type="PQ" value="10.1" /> <referenceRange> <observationRange> <text>9.4-12.4</ text> </observationRange> </referenceRange> </ observation> </component> <component> <observation moodCode= "EVN" classCode="OBS"> <templateId root="11.30.840.1.483565.22.4.2 " /> <id nullFlavor="NA" /> <code codeSystem="local" code= "SEGR" displayName="Neutrophils" /> <statusCode code="completed" /> <effectiveTime value="" /> <value unit="%" xsi: type="PQ" value="63" /> <referenceRange> <observationRange> <text>51-75</text> </observationRange> </ referenceRange> </observation> </component> <component> <observation moodCode="EVN" classCode="OBS"> <templateId root= "16.840.1.428273.10...4.2" /> <id nullFlavor="NA" /> < code codeSystem="local" code="NRBCA" displayName="Nucleated RBC Automated" /> <statusCode code="completed" /> <effectiveTime value= "" /> <value unit="/100WBC" xsi:type="PQ" value="0.0" /> <referenceRange> <observationRange> <text /> </observationRange> </referenceRange> </observation> </component> <component> <observation moodCode="EVN" classCode= "OBS"> <templateId root="840.1.818688...4.2" /> < id nullFlavor="NA" /> <code codeSystem="local" code="PLT" displayName= "Platelet Count" /> <statusCode code="completed" /> < effectiveTime value="" /> <value unit="K/uL" xsi:type="PQ" value="240" /> <referenceRange> <observationRange> <text>150-400</text> </observationRange> </ referenceRange> </observation> </component> <component> <observation moodCode="EVN" classCode="OBS"> <templateId root= "11.30.840.1.364031.10..22.4.2" /> <id nullFlavor="NA" /> < code codeSystem="local" code="RBC" displayName="RBC" /> <statusCode code="completed" /> <effectiveTime value="613474377137" /> < value unit="10*6/uL" xsi:type="PQ" value="3.93" /> <interpretationCode codeSystem="local" code="*" /> <referenceRange> < observationRange> <text>4.00-5.20</text> </ observationRange> </referenceRange> </observation> </ component> <component> <observation moodCode="EVN" classCode="OBS"> <templateId root="2.16.840.1.876996.10.20.22.4.2" /> <id nullFlavor="NA" /> <code codeSystem="local" code="RDW" displayName="RDW " /> <statusCode code="completed" /> <effectiveTime value= "594699115927" /> <value unit="%" xsi:type="PQ" value="12.9" /> <referenceRange> <observationRange> <text>11.5- 14.5</text> </observationRange> </referenceRange> </ observation> </component> <component> <observation moodCode= "EVN" classCode="OBS"> <templateId root="2.16.840.1.245724.10.20.22.4.2 " /> <id nullFlavor="NA" /> <code codeSystem="local" code= "WBCIR" displayName="WBC" /> <statusCode code="completed" /> < effectiveTime value="652227657068" /> <value unit="K/uL" xsi:type="PQ" value="8.9" /> <referenceRange> <observationRange> <text>4.8-10.8</text> </observationRange> </ referenceRange> </observation> </component> </organizer> </entry > <entry> <organizer moodCode="EVN" classCode="BATTERY"> <templateId root="11.30.840.1.992633.08.03.22.4.1" /> <id nullFlavor="NA" /> <code codeSystem="local" code="UA" displayName="Urinalysis with reflex microscopic" / > <statusCode code="completed" /> <component> <observation moodCode="EVN" classCode="OBS"> <templateId root= "840.1.751349.08.03.22.4.2" /> <id nullFlavor="NA" /> < code codeSystem="local" code="UAPP" displayName="Appearance" /> < statusCode code="completed" /> <effectiveTime value="472754744373" /> <value unit="NA" xsi:type="PQ" value="Sl Cloudy" /> < referenceRange> <observationRange> <text /> < /observationRange> </referenceRange> </observation> </ component> <component> <observation moodCode="EVN" classCode="OBS"> <templateId root="840.1.058908.08.03.22.4.2" /> <id nullFlavor="NA" /> <code codeSystem="local" code="UBIL" displayName= "Bilirubin" /> <statusCode code="completed" /> <effectiveTime value="" /> <value unit="NA" xsi:type="PQ" value="Positive " /> <interpretationCode codeSystem="local" code="*" /> < referenceRange> <observationRange> <text>Negative</text > </observationRange> </referenceRange> </observation > </component> <component> <observation moodCode="EVN" classCode="OBS"> <templateId root="11.30.840.1.658693.08.03.22.4.2" /> <id nullFlavor="NA" /> <code codeSystem="local" code="UBLD" displayName="Blood" /> <statusCode code="completed" /> < effectiveTime value="732590570511" /> <value unit="NA" xsi:type="PQ" value="Negative" /> <referenceRange> <observationRange> <text>Negative</text> </observationRange> </ referenceRange> </observation> </component> <component> <observation moodCode="EVN" classCode="OBS"> <templateId root= "216.840.1.602873.10..22.4.2" /> <id nullFlavor="NA" /> < code codeSystem="local" code="UCOLR" displayName="Color" /> < statusCode code="completed" /> <effectiveTime value="801101369766" /> <value unit="NA" xsi:type="PQ" value="Aliza" /> < interpretationCode codeSystem="local" code="*" /> <referenceRange> <observationRange> <text /> </observationRange> </referenceRange> </observation> </component> < component> <observation moodCode="EVN" classCode="OBS"> < templateId root="216.840.1.496741.10..22.4.2" /> <id nullFlavor="NA " /> <code codeSystem="local" code="UGLU" displayName="Glucose, Urine" /> <statusCode code="completed" /> <effectiveTime value= "359664488310" /> <value unit="" xsi:type="PQ" value="Negative" /> <referenceRange> <observationRange> <text>Negative </text> </observationRange> </referenceRange> </ observation> </component> <component> <observation moodCode= "EVN" classCode="OBS"> <templateId root="2.16.840.1.902055.10.22.4.2 " /> <id nullFlavor="NA" /> <code codeSystem="local" code= "UKET" displayName="Ketones" /> <statusCode code="completed" /> <effectiveTime value="996649575986" /> <value unit="" xsi:type="PQ" value="Trace" /> <interpretationCode codeSystem="local" code="*" /> <referenceRange> <observationRange> <text> Negative</text> </observationRange> </referenceRange> </observation> </component> <component> <observation moodCode ="EVN" classCode="OBS"> <templateId root= "16.840.1.802478.08.03.22.4.2" /> <id nullFlavor="NA" /> < code codeSystem="local" code="ULEU" displayName="Leukocyte Esterase" /> <statusCode code="completed" /> <effectiveTime value="718861266285" / > <value unit="NA" xsi:type="PQ" value="Negative" /> < referenceRange> <observationRange> <text>Negative</text > </observationRange> </referenceRange> </observation > </component> <component> <observation moodCode="EVN" classCode="OBS"> <templateId root="16.840.1.903487.08.03.22.4.2" /> <id nullFlavor="NA" /> <code codeSystem="local" code="UNIT" displayName="Nitrites" /> <statusCode code="completed" /> < effectiveTime value="266483663223" /> <value unit="NA" xsi:type="PQ" value="Negative" /> <referenceRange> <observationRange> <text>Negative</text> </observationRange> </ referenceRange> </observation> </component> <component> <observation moodCode="EVN" classCode="OBS"> <templateId root= "16.840.1.384998.08.03.22.4.2" /> <id nullFlavor="NA" /> < code codeSystem="local" code="UPH" displayName="pH" /> <statusCode code ="completed" /> <effectiveTime value="088944411214" /> <value unit="NA" xsi:type="PQ" value="5.0" /> <referenceRange> < observationRange> <text>5.0-8.0</text> </ observationRange> </referenceRange> </observation> </ component> <component> <observation moodCode="EVN" classCode="OBS"> <templateId root="11.30.840.1.694728.08.03.22.4.2" /> <id nullFlavor="NA" /> <code codeSystem="local" code="UPRO" displayName= "Protein" /> <statusCode code="completed" /> <effectiveTime value="756821154205" /> <value unit="NA" xsi:type="PQ" value="Pos 2+" / > <interpretationCode codeSystem="local" code="*" /> < referenceRange> <observationRange> <text>Negative</text > </observationRange> </referenceRange> </observation > </component> <component> <observation moodCode="EVN" classCode="OBS"> <templateId root="11.30.840.1.724590.10..4.2" /> <id nullFlavor="NA" /> <code codeSystem="local" code="USPG" displayName="Specific Homer" /> <statusCode code="completed" /> <effectiveTime value="854321668914" /> <value unit="NA" xsi:type= "PQ" value="1.045" /> <interpretationCode codeSystem="local" code="*" / > <referenceRange> <observationRange> <text> 1.003-1.030</text> </observationRange> </referenceRange> </observation> </component> <component> <observation moodCode="EVN" classCode="OBS"> <templateId root= "216.840.1.817208.10.4.2" /> <id nullFlavor="NA" /> < code codeSystem="local" code="UTYP" displayName="UA Collection type" /> <statusCode code="completed" /> <effectiveTime value="025487275385" / > <value unit="NA" xsi:type="PQ" value="Catheter" /> < referenceRange> <observationRange> <text /> < /observationRange> </referenceRange> </observation> </ component> <component> <observation moodCode="EVN" classCode="OBS"> <templateId root="16.840.1.252443.08.03.22.4.2" /> <id nullFlavor="NA" /> <code codeSystem="local" code="UURO" displayName= "Urobilinogen" /> <statusCode code="completed" /> < effectiveTime value="345559736584" /> <value unit="mg/dL" xsi:type="PQ " value="Negative" /> <referenceRange> <observationRange> <text><1.0</text> </observationRange> </ referenceRange> </observation> </component> </organizer> </entry > <entry> <organizer moodCode="EVN" classCode="BATTERY"> <templateId root="216.840.1.568092.10..4.1" /> <id nullFlavor="NA" /> <code codeSystem="local" code="UMIC" displayName="Urine Microscopic" /> < statusCode code="completed" /> <component> <observation moodCode= "EVN" classCode="OBS"> <templateId root="216.840.1.484404.10.4.2 " /> <id nullFlavor="NA" /> <code codeSystem="local" code= "UEPI" displayName="Epithelial Cells" /> <statusCode code="completed" / > <effectiveTime value="" /> <value unit="/HPF" xsi:type="PQ" value="2" /> <referenceRange> < observationRange> <text /> </observationRange> </referenceRange> </observation> </component> <component> <observation moodCode="EVN" classCode="OBS"> <templateId root= "16.840.1.048364.08.03.22.4.2" /> <id nullFlavor="NA" /> < code codeSystem="local" code="UHCST" displayName="Hyaline Casts" /> < statusCode code="completed" /> <effectiveTime value="" /> <value unit="/LPF" xsi:type="PQ" value="7" /> < interpretationCode codeSystem="local" code="*" /> <referenceRange> <observationRange> <text>0-3</text> </ observationRange> </referenceRange> </observation> </ component> <component> <observation moodCode="EVN" classCode="OBS"> <templateId root="16.840.1.396211.08.03.22.4.2" /> <id nullFlavor="NA" /> <code codeSystem="local" code="URBC" displayName= "RBC, Urine" /> <statusCode code="completed" /> < effectiveTime value="201557857720" /> <value unit="/HPF" xsi:type="PQ" value="0" /> <referenceRange> <observationRange> <text>0-2</text> </observationRange> </referenceRange> </observation> </component> <component> <observation moodCode="EVN" classCode="OBS"> <templateId root= "216.840.1.552163.10...4.2" /> <id nullFlavor="NA" /> < code codeSystem="local" code="UMUC" displayName="Urine Mucus" /> < statusCode code="completed" /> <effectiveTime value="474402479564" /> <value unit="NA" xsi:type="PQ" value="Present" /> < referenceRange> <observationRange> <text /> < /observationRange> </referenceRange> </observation> </ component> <component> <observation moodCode="EVN" classCode="OBS"> <templateId root="216.840.1.668122.10..4.2" /> <id nullFlavor="NA" /> <code codeSystem="local" code="UWBC" displayName= "WBC, Urine" /> <statusCode code="completed" /> < effectiveTime value="160925178722" /> <value unit="/HPF" xsi:type="PQ" value="2" /> <referenceRange> <observationRange> <text>0-4</text> </observationRange> </referenceRange> </observation> </component> </organizer> </entry> <entry> < organizer moodCode="EVN" classCode="BATTERY"> <templateId root= "216.840.1.731778.10...4.1" /> <id nullFlavor="NA" /> <code codeSystem="local" code="UDRGH" displayName="Urine Drug Screen" /> < statusCode code="completed" /> <component> <observation moodCode= "EVN" classCode="OBS"> <templateId root="216.840.1.952631.10.4.2 " /> <id nullFlavor="NA" /> <code codeSystem="local" code= "UAMP1" displayName="Amph/Meth/Ecstasy" /> <statusCode code="completed " /> <effectiveTime value="" /> <value unit="NA" xsi:type="PQ" value="Positive" /> <interpretationCode codeSystem="local " code="*" /> <referenceRange> <observationRange> <text /> </observationRange> </referenceRange> </ observation> </component> <component> <observation moodCode= "EVN" classCode="OBS"> <templateId root="11.30.840.1.997375.08.03.224.2 " /> <id nullFlavor="NA" /> <code codeSystem="local" code= "UBAR1" displayName="Barbiturates" /> <statusCode code="completed" /> <effectiveTime value="" /> <value unit="NA" xsi: type="PQ" value="Negative" /> <referenceRange> < observationRange> <text /> </observationRange> </referenceRange> </observation> </component> <component> <observation moodCode="EVN" classCode="OBS"> <templateId root= "16.840.1.219513.08.03.22.4.2" /> <id nullFlavor="NA" /> < code codeSystem="local" code="UBEN1" displayName="Benzodiazepine" /> < statusCode code="completed" /> <effectiveTime value="610857049744" /> <value unit="NA" xsi:type="PQ" value="Negative" /> < referenceRange> <observationRange> <text /> < /observationRange> </referenceRange> </observation> </ component> <component> <observation moodCode="EVN" classCode="OBS"> <templateId root="216.840.1.055759.10.22.4.2" /> <id nullFlavor="NA" /> <code codeSystem="local" code="UCAN1" displayName= "Cannabinoid" /> <statusCode code="completed" /> < effectiveTime value="" /> <value unit="NA" xsi:type="PQ" value="Negative" /> <referenceRange> <observationRange> <text /> </observationRange> </referenceRange> </observation> </component> <component> <observation moodCode="EVN" classCode="OBS"> <templateId root= "16.840.1.541030.10.4.2" /> <id nullFlavor="NA" /> < code codeSystem="local" code="UCOC1" displayName="Cocaine" /> < statusCode code="completed" /> <effectiveTime value="" /> <value unit="NA" xsi:type="PQ" value="Negative" /> < referenceRange> <observationRange> <text /> < /observationRange> </referenceRange> </observation> </ component> <component> <observation moodCode="EVN" classCode="OBS"> <templateId root="11.30.840.1.458259.1022.4.2" /> <id nullFlavor="NA" /> <code codeSystem="local" code="UMTD1" displayName= "EDDP (Methadone met.)" /> <statusCode code="completed" /> < effectiveTime value="714612597372" /> <value unit="NA" xsi:type="PQ" value="Negative" /> <referenceRange> <observationRange> <text /> </observationRange> </referenceRange> </observation> </component> <component> <observation moodCode="EVN" classCode="OBS"> <templateId root= "216.840.1.675453.10...4.2" /> <id nullFlavor="NA" /> < code codeSystem="local" code="UOPI1" displayName="Opiate" /> < statusCode code="completed" /> <effectiveTime value="640053779898" /> <value unit="NA" xsi:type="PQ" value="Negative" /> < referenceRange> <observationRange> <text /> < /observationRange> </referenceRange> </observation> </ component> <component> <observation moodCode="EVN" classCode="OBS"> <templateId root="11.30.840.1.964964.10..4.2" /> <id nullFlavor="NA" /> <code codeSystem="local" code="UPCP1" displayName= "Phencyclidine (PCP)" /> <statusCode code="completed" /> < effectiveTime value="886257242226" /> <value unit="NA" xsi:type="PQ" value="Negative" /> <referenceRange> <observationRange> <text /> </observationRange> </referenceRange> </observation> </component> </organizer> </entry> <entry> < organizer moodCode="EVN" classCode="BATTERY"> <templateId root= "11.30.840.1.047017.10...4.1" /> <id nullFlavor="NA" /> <code codeSystem="local" code="SALIC" displayName="Salicylate" /> <statusCode code="completed" /> <component> <observation moodCode="EVN" classCode="OBS"> <templateId root="216.840.1.443541.10..22.4.2" /> <id nullFlavor="NA" /> <code codeSystem="local" code="SALIC" displayName="Salicylate" /> <statusCode code="completed" /> < effectiveTime value="547339484476" /> <value unit="mg/dL" xsi:type="PQ " value="<4" /> <referenceRange> <observationRange> <text>0-30</text> </observationRange> </ referenceRange> </observation> </component> </organizer> </entry > <entry> <organizer moodCode="EVN" classCode="BATTERY"> <templateId root="216.840.1.088144.10..22.4.1" /> <id nullFlavor="NA" /> <code codeSystem="local" code="ACETM" displayName="Acetaminophen" /> <statusCode code="completed" /> <component> <observation moodCode="EVN" classCode="OBS"> <templateId root="2.16.840.1.588186.10..22.4.2" /> <id nullFlavor="NA" /> <code codeSystem="local" code="ACETM" displayName="Acetaminophen" /> <statusCode code="completed" /> <effectiveTime value="646696178742" /> <value unit="mcg/mL" xsi:type= "PQ" value="277" /> <interpretationCode codeSystem="local" code="" / > <referenceRange> <observationRange> <text>10- 30</text> </observationRange> </referenceRange> </ observation> </component> </organizer> </entry> <entry> <organizer moodCode="EVN" classCode="BATTERY"> <templateId root= "216.840.1.197240.10...4.1" /> <id nullFlavor="NA" /> <code codeSystem="local" code="CMP" displayName="Comprehensive Metabolic Panel (CMP)" /> <statusCode code="completed" /> <component> <observation moodCode="EVN" classCode="OBS"> <templateId root= "11.30.840.1.371736.10..4.2" /> <id nullFlavor="NA" /> < code codeSystem="local" code="ALB" displayName="Albumin" /> < statusCode code="completed" /> <effectiveTime value="374897942452" /> <value unit="g/dL" xsi:type="PQ" value="3.9" /> < referenceRange> <observationRange> <text>3.5-4.8</text> </observationRange> </referenceRange> </observation > </component> <component> <observation moodCode="EVN" classCode="OBS"> <templateId root="11.30.840.1.874040.10..4.2" /> <id nullFlavor="NA" /> <code codeSystem="local" code="ALP" displayName="Alkaline Phosphatase" /> <statusCode code="completed" /> <effectiveTime value="606331259063" /> <value unit="U/L" xsi: type="PQ" value="61" /> <referenceRange> <observationRange> <text>26-104</text> </observationRange> </ referenceRange> </observation> </component> <component> <observation moodCode="EVN" classCode="OBS"> <templateId root= "16.840.1.978819.08.03.22.4.2" /> <id nullFlavor="NA" /> < code codeSystem="local" code="ALT" displayName="ALT (SGPT)" /> < statusCode code="completed" /> <effectiveTime value="343987850449" /> <value unit="U/L" xsi:type="PQ" value="19" /> <referenceRange > <observationRange> <text>14-54</text> </ observationRange> </referenceRange> </observation> </ component> <component> <observation moodCode="EVN" classCode="OBS"> <templateId root="216.840.1.484921.08.03.22.4.2" /> <id nullFlavor="NA" /> <code codeSystem="local" code="AGAP" displayName= "Anion Gap" /> <statusCode code="completed" /> <effectiveTime value="" /> <value unit="mEq/L" xsi:type="PQ" value="9" /> <referenceRange> <observationRange> <text>3-20 </text> </observationRange> </referenceRange> </ observation> </component> <component> <observation moodCode= "EVN" classCode="OBS"> <templateId root="2.16.840.1.853477...4.2 " /> <id nullFlavor="NA" /> <code codeSystem="local" code="AST " displayName="AST (SGOT)" /> <statusCode code="completed" /> <effectiveTime value="442857442084" /> <value unit="U/L" xsi:type="PQ" value="22" /> <referenceRange> <observationRange> <text>15-41</text> </observationRange> </referenceRange > </observation> </component> <component> <observation moodCode="EVN" classCode="OBS"> <templateId root= "11.30.840.1.594022.10.22.4.2" /> <id nullFlavor="NA" /> < code codeSystem="local" code="BILIT" displayName="Bilirubin Total" /> < statusCode code="completed" /> <effectiveTime value="953033798777" /> <value unit="mg/dL" xsi:type="PQ" value="0.9" /> < referenceRange> <observationRange> <text>0.2-1.2</text> </observationRange> </referenceRange> </observation > </component> <component> <observation moodCode="EVN" classCode="OBS"> <templateId root="840.1.348753.22.4.2" /> <id nullFlavor="NA" /> <code codeSystem="local" code="BUN" displayName="BUN" /> <statusCode code="completed" /> < effectiveTime value="333004657729" /> <value unit="mg/dL" xsi:type="PQ " value="11" /> <referenceRange> <observationRange> <text>4-20</text> </observationRange> </referenceRange > </observation> </component> <component> <observation moodCode="EVN" classCode="OBS"> <templateId root= "11.30.840.1.464066.10.22.4.2" /> <id nullFlavor="NA" /> < code codeSystem="local" code="CA" displayName="Calcium" /> <statusCode code="completed" /> <effectiveTime value="512816296139" /> < value unit="mg/dL" xsi:type="PQ" value="8.5" /> <interpretationCode codeSystem="local" code="*" /> <referenceRange> < observationRange> <text>8.6-10.0</text> </ observationRange> </referenceRange> </observation> </ component> <component> <observation moodCode="EVN" classCode="OBS"> <templateId root="16.840.1.116607.10.20.22.4.2" /> <id nullFlavor="NA" /> <code codeSystem="local" code="CL" displayName= "Chloride" /> <statusCode code="completed" /> <effectiveTime value="138205012614" /> <value unit="mEq/L" xsi:type="PQ" value="110" / > <interpretationCode codeSystem="local" code="*" /> < referenceRange> <observationRange> <text>99-109</text> </observationRange> </referenceRange> </observation> </component> <component> <observation moodCode="EVN" classCode ="OBS"> <templateId root="840.1.985023.10..4.2" /> < id nullFlavor="NA" /> <code codeSystem="local" code="CO2" displayName= "CO2" /> <statusCode code="completed" /> <effectiveTime value= "332505122388" /> <value unit="mEq/L" xsi:type="PQ" value="21" /> <interpretationCode codeSystem="local" code="*" /> <referenceRange > <observationRange> <text>22-32</text> </ observationRange> </referenceRange> </observation> </ component> <component> <observation moodCode="EVN" classCode="OBS"> <templateId root="11.30.840.1.680272.10.20.22.4.2" /> <id nullFlavor="NA" /> <code codeSystem="local" code="CREAT" displayName= "Creatinine" /> <statusCode code="completed" /> < effectiveTime value="764029736984" /> <value unit="mg/dL" xsi:type="PQ " value="0.83" /> <referenceRange> <observationRange> <text>0.44-1.03</text> </observationRange> </ referenceRange> </observation> </component> <component> <observation moodCode="EVN" classCode="OBS"> <templateId root= "11.30.840.1.372398.10.22.4.2" /> <id nullFlavor="NA" /> < code codeSystem="local" code="GLOB" displayName="Globulin" /> < statusCode code="completed" /> <effectiveTime value="620232379177" /> <value unit="g/dL" xsi:type="PQ" value="2.7" /> < referenceRange> <observationRange> <text>1.9-4.3</text> </observationRange> </referenceRange> </observation > </component> <component> <observation moodCode="EVN" classCode="OBS"> <templateId root="11.30.840.1.039745..22.4.2" /> <id nullFlavor="NA" /> <code codeSystem="local" code="GLU" displayName="Glucose" /> <statusCode code="completed" /> < effectiveTime value="072089839378" /> <value unit="mg/dL" xsi:type="PQ " value="90" /> <referenceRange> <observationRange> <text>70-100</text> </observationRange> </ referenceRange> </observation> </component> <component> <observation moodCode="EVN" classCode="OBS"> <templateId root= "11.30.840.1.779175.22.4.2" /> <id nullFlavor="NA" /> < code codeSystem="local" code="K" displayName="Potassium" /> < statusCode code="completed" /> <effectiveTime value="760948418371" /> <value unit="mEq/L" xsi:type="PQ" value="3.5" /> < interpretationCode codeSystem="local" code="*" /> <referenceRange> <observationRange> <text>3.6-5.1</text> </ observationRange> </referenceRange> </observation> </ component> <component> <observation moodCode="EVN" classCode="OBS"> <templateId root="16.840.1.765097.08.03.22.4.2" /> <id nullFlavor="NA" /> <code codeSystem="local" code="TP" displayName= "Protein" /> <statusCode code="completed" /> <effectiveTime value="636130802095" /> <value unit="g/dL" xsi:type="PQ" value="6.6" / > <referenceRange> <observationRange> <text>6.1 -7.9</text> </observationRange> </referenceRange> </ observation> </component> <component> <observation moodCode= "EVN" classCode="OBS"> <templateId root="16.840.1.805592.08.03.22.4.2 " /> <id nullFlavor="NA" /> <code codeSystem="local" code="NA " displayName="Sodium" /> <statusCode code="completed" /> < effectiveTime value="511129114014" /> <value unit="mEq/L" xsi:type="PQ " value="140" /> <referenceRange> <observationRange> <text>136-144</text> </observationRange> </ referenceRange> </observation> </component> </organizer> </entry > <entry> <organizer moodCode="EVN" classCode="BATTERY"> <templateId root="11.30.840.1.074247.08.03.22.4.1" /> <id nullFlavor="NA" /> <code codeSystem="local" code="ALC" displayName="Alcohol, Blood" /> <statusCode code="completed" /> <component> <observation moodCode="EVN" classCode="OBS"> <templateId root="840.1.778181.08.03.224.2" /> <id nullFlavor="NA" /> <code codeSystem="local" code="ALC" displayName="Alcohol, Blood" /> <statusCode code="completed" /> <effectiveTime value="614722371461" /> <value unit="mg/dL" xsi:type= "PQ" value="Not Detected" /> <referenceRange> < observationRange> <text /> </observationRange> </referenceRange> </observation> </component> </organizer> </ entry> <entry> <organizer moodCode="EVN" classCode="BATTERY"> < templateId root="11.30.840.1.039373.08.03.22.4.1" /> <id nullFlavor="NA" /> <code codeSystem="local" code="GFR" displayName="eGFR" /> < statusCode code="completed" /> <component> <observation moodCode= "EVN" classCode="OBS"> <templateId root="11.30.840.1.279710.08.03.22.4.2 " /> <id nullFlavor="NA" /> <code codeSystem="local" code="GFR " displayName="eGFR" /> <statusCode code="completed" /> < effectiveTime value="111341134597" /> <value unit="mL/min" xsi:type="PQ " value=">60" /> <referenceRange> <observationRange> <text>>60</text> </observationRange> </ referenceRange> </observation> </component> </organizer> </entry > <entry> <organizer moodCode="EVN" classCode="BATTERY"> <templateId root="16.840.1.023941.10..4.1" /> <id nullFlavor="NA" /> <code codeSystem="local" code="CBCND" displayName="CBC With Platelet No Differential" /> <statusCode code="completed" /> <component> <observation moodCode="EVN" classCode="OBS"> <templateId root= "216.840.1.817020.10..4.2" /> <id nullFlavor="NA" /> < code codeSystem="local" code="HCT" displayName="HCT" /> <statusCode code="completed" /> <effectiveTime value="994540326649" /> < value unit="%" xsi:type="PQ" value="36.8" /> <interpretationCode codeSystem="local" code="*" /> <referenceRange> < observationRange> <text>37.0-47.0</text> </ observationRange> </referenceRange> </observation> </ component> <component> <observation moodCode="EVN" classCode="OBS"> <templateId root="11.30.840.1.916653.10..4.2" /> <id nullFlavor="NA" /> <code codeSystem="local" code="HGB" displayName="HGB " /> <statusCode code="completed" /> <effectiveTime value= "627754271022" /> <value unit="g/dL" xsi:type="PQ" value="12.7" /> <referenceRange> <observationRange> <text>12.0- 16.0</text> </observationRange> </referenceRange> </ observation> </component> <component> <observation moodCode= "EVN" classCode="OBS"> <templateId root="216.840.1.450582.10.20.22.4.2 " /> <id nullFlavor="NA" /> <code codeSystem="local" code="MCH " displayName="MCH" /> <statusCode code="completed" /> < effectiveTime value="880014807701" /> <value unit="pg" xsi:type="PQ" value="31.8" /> <referenceRange> <observationRange> <text>27.0-32.0</text> </observationRange> </ referenceRange> </observation> </component> <component> <observation moodCode="EVN" classCode="OBS"> <templateId root= "11.30.840.1.880114.10..4.2" /> <id nullFlavor="NA" /> < code codeSystem="local" code="MCHC" displayName="MCHC" /> <statusCode code="completed" /> <effectiveTime value="088969057928" /> < value unit="g/dL" xsi:type="PQ" value="34.5" /> <referenceRange> <observationRange> <text>32.0-36.0</text> </ observationRange> </referenceRange> </observation> </ component> <component> <observation moodCode="EVN" classCode="OBS"> <templateId root="16.840.1.344785.10.20.22.4.2" /> <id nullFlavor="NA" /> <code codeSystem="local" code="MCV" displayName="MCV " /> <statusCode code="completed" /> <effectiveTime value= "" /> <value unit="fL" xsi:type="PQ" value="92.0" /> <referenceRange> <observationRange> <text>82.0-99.0< /text> </observationRange> </referenceRange> </ observation> </component> <component> <observation moodCode= "EVN" classCode="OBS"> <templateId root="11.30.840.1.951345.10.22.4.2 " /> <id nullFlavor="NA" /> <code codeSystem="local" code="MPV " displayName="MPV" /> <statusCode code="completed" /> < effectiveTime value="" /> <value unit="fL" xsi:type="PQ" value="10.7" /> <referenceRange> <observationRange> <text>9.4-12.4</text> </observationRange> </ referenceRange> </observation> </component> <component> <observation moodCode="EVN" classCode="OBS"> <templateId root= "11.30.840.1.473981.22.4.2" /> <id nullFlavor="NA" /> < code codeSystem="local" code="PLT" displayName="Platelet Count" /> < statusCode code="completed" /> <effectiveTime value="059650960855" /> <value unit="K/uL" xsi:type="PQ" value="266" /> < referenceRange> <observationRange> <text>150-400</text> </observationRange> </referenceRange> </observation > </component> <component> <observation moodCode="EVN" classCode="OBS"> <templateId root="11.30.840.1.113780.08.03.22.4.2" /> <id nullFlavor="NA" /> <code codeSystem="local" code="RBC" displayName="RBC" /> <statusCode code="completed" /> < effectiveTime value="" /> <value unit="10*6/uL" xsi:type= "PQ" value="4.00" /> <referenceRange> <observationRange> <text>4.00-5.20</text> </observationRange> </ referenceRange> </observation> </component> <component> <observation moodCode="EVN" classCode="OBS"> <templateId root= "2.16.840.1.270699.08.03.22.4.2" /> <id nullFlavor="NA" /> < code codeSystem="local" code="RDW" displayName="RDW" /> <statusCode code="completed" /> <effectiveTime value="" /> < value unit="%" xsi:type="PQ" value="13.0" /> <referenceRange> <observationRange> <text>11.5-14.5</text> </ observationRange> </referenceRange> </observation> </ component> <component> <observation moodCode="EVN" classCode="OBS"> <templateId root="2.16.840.1.814895.08.03.22.4.2" /> <id nullFlavor="NA" /> <code codeSystem="local" code="WBCIR" displayName= "WBC" /> <statusCode code="completed" /> <effectiveTime value= "" /> <value unit="K/uL" xsi:type="PQ" value="7.3" /> <referenceRange> <observationRange> <text>4.8-10.8< /text> </observationRange> </referenceRange> </ observation> </component> </organizer> </entry> <entry> <organizer moodCode="EVN" classCode="BATTERY"> <templateId root= "840.1.157982.08.03.22.4.1" /> <id nullFlavor="NA" /> <code codeSystem="local" code="PT" displayName="Protime (INR)" /> <statusCode code="completed" /> <component> <observation moodCode="EVN" classCode="OBS"> <templateId root="840.1.714530.08.03.22.4.2" /> <id nullFlavor="NA" /> <code codeSystem="local" code="INR" displayName="INR" /> <statusCode code="completed" /> < effectiveTime value="874842168806" /> <value unit="NA" xsi:type="PQ" value="1.3" /> <interpretationCode codeSystem="local" code="*" /> <referenceRange> <observationRange> <text>0.9-1.2</ text> </observationRange> </referenceRange> </ observation> </component> </organizer> </entry> <entry> <organizer moodCode="EVN" classCode="BATTERY"> <templateId root= "840.1.869762.08.03.22.4.1" /> <id nullFlavor="NA" /> <code codeSystem="local" code="CMP" displayName="Comprehensive Metabolic Panel (CMP)" /> <statusCode code="completed" /> <component> <observation moodCode="EVN" classCode="OBS"> <templateId root= "840.1.732341.22.4.2" /> <id nullFlavor="NA" /> < code codeSystem="local" code="ALB" displayName="Albumin" /> < statusCode code="completed" /> <effectiveTime value="010946529557" /> <value unit="g/dL" xsi:type="PQ" value="3.3" /> < interpretationCode codeSystem="local" code="*" /> <referenceRange> <observationRange> <text>3.5-4.8</text> </ observationRange> </referenceRange> </observation> </ component> <component> <observation moodCode="EVN" classCode="OBS"> <templateId root="16.840.1.830596.10.20.22.4.2" /> <id nullFlavor="NA" /> <code codeSystem="local" code="ALP" displayName= "Alkaline Phosphatase" /> <statusCode code="completed" /> < effectiveTime value="683911013022" /> <value unit="U/L" xsi:type="PQ" value="50" /> <referenceRange> <observationRange> <text>26-104</text> </observationRange> </referenceRange > </observation> </component> <component> <observation moodCode="EVN" classCode="OBS"> <templateId root= "16.840.1.737832.10.20.22.4.2" /> <id nullFlavor="NA" /> < code codeSystem="local" code="ALT" displayName="ALT (SGPT)" /> < statusCode code="completed" /> <effectiveTime value="813433195549" /> <value unit="U/L" xsi:type="PQ" value="18" /> <referenceRange > <observationRange> <text>14-54</text> </ observationRange> </referenceRange> </observation> </ component> <component> <observation moodCode="EVN" classCode="OBS"> <templateId root="11.30.840.1.462458.08.03.22.4.2" /> <id nullFlavor="NA" /> <code codeSystem="local" code="AGAP" displayName= "Anion Gap" /> <statusCode code="completed" /> <effectiveTime value="868783188899" /> <value unit="mEq/L" xsi:type="PQ" value="9" /> <referenceRange> <observationRange> <text>3-20 </text> </observationRange> </referenceRange> </ observation> </component> <component> <observation moodCode= "EVN" classCode="OBS"> <templateId root="216.840.1.715366.08.03.22.4.2 " /> <id nullFlavor="NA" /> <code codeSystem="local" code="AST " displayName="AST (SGOT)" /> <statusCode code="completed" /> <effectiveTime value="713657706644" /> <value unit="U/L" xsi:type="PQ" value="16" /> <referenceRange> <observationRange> <text>15-41</text> </observationRange> </referenceRange > </observation> </component> <component> <observation moodCode="EVN" classCode="OBS"> <templateId root= "16.840.1.969447.08.03.22.4.2" /> <id nullFlavor="NA" /> < code codeSystem="local" code="BILIT" displayName="Bilirubin Total" /> < statusCode code="completed" /> <effectiveTime value="233619055378" /> <value unit="mg/dL" xsi:type="PQ" value="0.5" /> < referenceRange> <observationRange> <text>0.2-1.2</text> </observationRange> </referenceRange> </observation > </component> <component> <observation moodCode="EVN" classCode="OBS"> <templateId root="11.30.840.1.758289.22.4.2" /> <id nullFlavor="NA" /> <code codeSystem="local" code="BUN" displayName="BUN" /> <statusCode code="completed" /> < effectiveTime value="" /> <value unit="mg/dL" xsi:type="PQ " value="8" /> <referenceRange> <observationRange> <text>4-20</text> </observationRange> </referenceRange > </observation> </component> <component> <observation moodCode="EVN" classCode="OBS"> <templateId root= "11.30.840.1.817564...4.2" /> <id nullFlavor="NA" /> < code codeSystem="local" code="CA" displayName="Calcium" /> <statusCode code="completed" /> <effectiveTime value="763803637277" /> < value unit="mg/dL" xsi:type="PQ" value="8.3" /> <interpretationCode codeSystem="local" code="*" /> <referenceRange> < observationRange> <text>8.6-10.0</text> </ observationRange> </referenceRange> </observation> </ component> <component> <observation moodCode="EVN" classCode="OBS"> <templateId root="11.30.840.1.926835.10.2022.4.2" /> <id nullFlavor="NA" /> <code codeSystem="local" code="CL" displayName= "Chloride" /> <statusCode code="completed" /> <effectiveTime value="728383572400" /> <value unit="mEq/L" xsi:type="PQ" value="109" / > <referenceRange> <observationRange> <text>99- 109</text> </observationRange> </referenceRange> </ observation> </component> <component> <observation moodCode= "EVN" classCode="OBS"> <templateId root="11.30.840.1.655814.10.20.22.4.2 " /> <id nullFlavor="NA" /> <code codeSystem="local" code="CO2 " displayName="CO2" /> <statusCode code="completed" /> < effectiveTime value="003856135144" /> <value unit="mEq/L" xsi:type="PQ " value="21" /> <interpretationCode codeSystem="local" code="*" /> <referenceRange> <observationRange> <text>22-32</ text> </observationRange> </referenceRange> </ observation> </component> <component> <observation moodCode= "EVN" classCode="OBS"> <templateId root="840.1.506356.10.22.4.2 " /> <id nullFlavor="NA" /> <code codeSystem="local" code= "CREAT" displayName="Creatinine" /> <statusCode code="completed" /> <effectiveTime value="996391482979" /> <value unit="mg/dL" xsi: type="PQ" value="0.68" /> <referenceRange> <observationRange > <text>0.44-1.03</text> </observationRange> </ referenceRange> </observation> </component> <component> <observation moodCode="EVN" classCode="OBS"> <templateId root= "11.30.840.1.513907.10.20.22.4.2" /> <id nullFlavor="NA" /> < code codeSystem="local" code="GLOB" displayName="Globulin" /> < statusCode code="completed" /> <effectiveTime value="106686644934" /> <value unit="g/dL" xsi:type="PQ" value="2.3" /> < referenceRange> <observationRange> <text>1.9-4.3</text> </observationRange> </referenceRange> </observation > </component> <component> <observation moodCode="EVN" classCode="OBS"> <templateId root="16.840.1.462792.10.20.22.4.2" /> <id nullFlavor="NA" /> <code codeSystem="local" code="GLU" displayName="Glucose" /> <statusCode code="completed" /> < effectiveTime value="984589391553" /> <value unit="mg/dL" xsi:type="PQ " value="104" /> <interpretationCode codeSystem="local" code="*" /> <referenceRange> <observationRange> <text>70-100< /text> </observationRange> </referenceRange> </ observation> </component> <component> <observation moodCode= "EVN" classCode="OBS"> <templateId root="16.840.1.895239.10.20.22.4.2 " /> <id nullFlavor="NA" /> <code codeSystem="local" code="K" displayName="Potassium" /> <statusCode code="completed" /> < effectiveTime value="125966958667" /> <value unit="mEq/L" xsi:type="PQ " value="3.4" /> <interpretationCode codeSystem="local" code="*" /> <referenceRange> <observationRange> <text>3.6-5.1 </text> </observationRange> </referenceRange> </ observation> </component> <component> <observation moodCode= "EVN" classCode="OBS"> <templateId root="840.1.679181.10..22.4.2 " /> <id nullFlavor="NA" /> <code codeSystem="local" code="TP " displayName="Protein" /> <statusCode code="completed" /> < effectiveTime value="192191123403" /> <value unit="g/dL" xsi:type="PQ" value="5.6" /> <interpretationCode codeSystem="local" code="*" /> <referenceRange> <observationRange> <text>6.1-7.9</ text> </observationRange> </referenceRange> </ observation> </component> <component> <observation moodCode= "EVN" classCode="OBS"> <templateId root="840.1.999345.08.03.22.4.2 " /> <id nullFlavor="NA" /> <code codeSystem="local" code="NA " displayName="Sodium" /> <statusCode code="completed" /> < effectiveTime value="829142494237" /> <value unit="mEq/L" xsi:type="PQ " value="139" /> <referenceRange> <observationRange> <text>136-144</text> </observationRange> </ referenceRange> </observation> </component> </organizer> </entry > <entry> <organizer moodCode="EVN" classCode="BATTERY"> <templateId root="11.30.840.1.151763.10..22.4.1" /> <id nullFlavor="NA" /> <code codeSystem="local" code="ACETM" displayName="Acetaminophen" /> <statusCode code="completed" /> <component> <observation moodCode="EVN" classCode="OBS"> <templateId root="840.1.671435.08.03.22.4.2" /> <id nullFlavor="NA" /> <code codeSystem="local" code="ACETM" displayName="Acetaminophen" /> <statusCode code="completed" /> <effectiveTime value="267097736923" /> <value unit="mcg/mL" xsi:type= "PQ" value="45" /> <interpretationCode codeSystem="local" code="*" /> <referenceRange> <observationRange> <text>10-30 </text> </observationRange> </referenceRange> </ observation> </component> </organizer> </entry> <entry> <organizer moodCode="EVN" classCode="BATTERY"> <templateId root= "16.840.1.942807.08.03.22.4.1" /> <id nullFlavor="NA" /> <code codeSystem="local" code="GFR" displayName="eGFR" /> <statusCode code= "completed" /> <component> <observation moodCode="EVN" classCode= "OBS"> <templateId root="16.840.1.710870.08.03.22.4.2" /> < id nullFlavor="NA" /> <code codeSystem="local" code="GFR" displayName= "eGFR" /> <statusCode code="completed" /> <effectiveTime value ="329014834338" /> <value unit="mL/min" xsi:type="PQ" value=">60" / > <referenceRange> <observationRange> <text>&gt ;60</text> </observationRange> </referenceRange> </ observation> </component> </organizer> </entry> <entry> <organizer moodCode="EVN" classCode="BATTERY"> <templateId root= "216.840.1.107497.08.03.22.4.1" /> <id nullFlavor="NA" /> <code codeSystem="local" code="CMP" displayName="Comprehensive Metabolic Panel (CMP)" /> <statusCode code="completed" /> <component> <observation moodCode="EVN" classCode="OBS"> <templateId root= "11.30.840.1.407261.10...4.2" /> <id nullFlavor="NA" /> < code codeSystem="local" code="ALB" displayName="Albumin" /> < statusCode code="completed" /> <effectiveTime value="244682760917" /> <value unit="g/dL" xsi:type="PQ" value="3.2" /> < interpretationCode codeSystem="local" code="*" /> <referenceRange> <observationRange> <text>3.5-4.8</text> </ observationRange> </referenceRange> </observation> </ component> <component> <observation moodCode="EVN" classCode="OBS"> <templateId root="840.1.487557.08.03.22.4.2" /> <id nullFlavor="NA" /> <code codeSystem="local" code="ALP" displayName= "Alkaline Phosphatase" /> <statusCode code="completed" /> < effectiveTime value="761846145236" /> <value unit="U/L" xsi:type="PQ" value="45" /> <referenceRange> <observationRange> <text>26-104</text> </observationRange> </referenceRange > </observation> </component> <component> <observation moodCode="EVN" classCode="OBS"> <templateId root= "11.30.840.1.610797.10.4.2" /> <id nullFlavor="NA" /> < code codeSystem="local" code="ALT" displayName="ALT (SGPT)" /> < statusCode code="completed" /> <effectiveTime value="742187195895" /> <value unit="U/L" xsi:type="PQ" value="17" /> <referenceRange > <observationRange> <text>14-54</text> </ observationRange> </referenceRange> </observation> </ component> <component> <observation moodCode="EVN" classCode="OBS"> <templateId root="16.840.1.542260.10..22.4.2" /> <id nullFlavor="NA" /> <code codeSystem="local" code="AGAP" displayName= "Anion Gap" /> <statusCode code="completed" /> <effectiveTime value="105407815404" /> <value unit="mEq/L" xsi:type="PQ" value="6" /> <referenceRange> <observationRange> <text>3-20 </text> </observationRange> </referenceRange> </ observation> </component> <component> <observation moodCode= "EVN" classCode="OBS"> <templateId root="11.30.840.1.390357.10..22.4.2 " /> <id nullFlavor="NA" /> <code codeSystem="local" code="AST " displayName="AST (SGOT)" /> <statusCode code="completed" /> <effectiveTime value="074562306856" /> <value unit="U/L" xsi:type="PQ" value="14" /> <interpretationCode codeSystem="local" code="*" /> <referenceRange> <observationRange> <text>15-41</ text> </observationRange> </referenceRange> </ observation> </component> <component> <observation moodCode= "EVN" classCode="OBS"> <templateId root="16.840.1.993680.10.22.4.2 " /> <id nullFlavor="NA" /> <code codeSystem="local" code= "BILIT" displayName="Bilirubin Total" /> <statusCode code="completed" / > <effectiveTime value="" /> <value unit="mg/dL" xsi:type="PQ" value="0.8" /> <referenceRange> < observationRange> <text>0.2-1.2</text> </ observationRange> </referenceRange> </observation> </ component> <component> <observation moodCode="EVN" classCode="OBS"> <templateId root="11.30.840.1.090415.08.03.22.4.2" /> <id nullFlavor="NA" /> <code codeSystem="local" code="BUN" displayName="BUN " /> <statusCode code="completed" /> <effectiveTime value= "" /> <value unit="mg/dL" xsi:type="PQ" value="5" /> <referenceRange> <observationRange> <text>4-20</text > </observationRange> </referenceRange> </observation > </component> <component> <observation moodCode="EVN" classCode="OBS"> <templateId root="11.30.840.1.630156.1022.4.2" /> <id nullFlavor="NA" /> <code codeSystem="local" code="CA" displayName="Calcium" /> <statusCode code="completed" /> < effectiveTime value="924924969705" /> <value unit="mg/dL" xsi:type="PQ " value="8.0" /> <interpretationCode codeSystem="local" code="*" /> <referenceRange> <observationRange> <text>8.6- 10.0</text> </observationRange> </referenceRange> </ observation> </component> <component> <observation moodCode= "EVN" classCode="OBS"> <templateId root="216.840.1.257571.10..4.2 " /> <id nullFlavor="NA" /> <code codeSystem="local" code="CL " displayName="Chloride" /> <statusCode code="completed" /> < effectiveTime value="" /> <value unit="mEq/L" xsi:type="PQ " value="109" /> <referenceRange> <observationRange> <text>99-109</text> </observationRange> </ referenceRange> </observation> </component> <component> <observation moodCode="EVN" classCode="OBS"> <templateId root= "16.840.1.958639.08.03.22.4.2" /> <id nullFlavor="NA" /> < code codeSystem="local" code="CO2" displayName="CO2" /> <statusCode code="completed" /> <effectiveTime value="" /> < value unit="mEq/L" xsi:type="PQ" value="23" /> <referenceRange> <observationRange> <text>22-32</text> </ observationRange> </referenceRange> </observation> </ component> <component> <observation moodCode="EVN" classCode="OBS"> <templateId root="16.840.1.029172.10.22.4.2" /> <id nullFlavor="NA" /> <code codeSystem="local" code="CREAT" displayName= "Creatinine" /> <statusCode code="completed" /> < effectiveTime value="" /> <value unit="mg/dL" xsi:type="PQ " value="0.78" /> <referenceRange> <observationRange> <text>0.44-1.03</text> </observationRange> </ referenceRange> </observation> </component> <component> <observation moodCode="EVN" classCode="OBS"> <templateId root= "11.30.840.1.408758.10.22.4.2" /> <id nullFlavor="NA" /> < code codeSystem="local" code="GLOB" displayName="Globulin" /> < statusCode code="completed" /> <effectiveTime value="434493647099" /> <value unit="g/dL" xsi:type="PQ" value="2.3" /> < referenceRange> <observationRange> <text>1.9-4.3</text> </observationRange> </referenceRange> </observation > </component> <component> <observation moodCode="EVN" classCode="OBS"> <templateId root="840.1.495931.08.03.22.4.2" /> <id nullFlavor="NA" /> <code codeSystem="local" code="GLU" displayName="Glucose" /> <statusCode code="completed" /> < effectiveTime value="294667166147" /> <value unit="mg/dL" xsi:type="PQ " value="99" /> <referenceRange> <observationRange> <text>70-100</text> </observationRange> </ referenceRange> </observation> </component> <component> <observation moodCode="EVN" classCode="OBS"> <templateId root= "840.1.379379.102022.4.2" /> <id nullFlavor="NA" /> < code codeSystem="local" code="K" displayName="Potassium" /> < statusCode code="completed" /> <effectiveTime value="370274504554" /> <value unit="mEq/L" xsi:type="PQ" value="3.0" /> < interpretationCode codeSystem="local" code="*" /> <referenceRange> <observationRange> <text>3.6-5.1</text> </ observationRange> </referenceRange> </observation> </ component> <component> <observation moodCode="EVN" classCode="OBS"> <templateId root="216.840.1.887650.10.20.22.4.2" /> <id nullFlavor="NA" /> <code codeSystem="local" code="TP" displayName= "Protein" /> <statusCode code="completed" /> <effectiveTime value="130672620998" /> <value unit="g/dL" xsi:type="PQ" value="5.5" / > <interpretationCode codeSystem="local" code="*" /> < referenceRange> <observationRange> <text>6.1-7.9</text> </observationRange> </referenceRange> </observation > </component> <component> <observation moodCode="EVN" classCode="OBS"> <templateId root="2.16.840.1.642157.10.20.22.4.2" /> <id nullFlavor="NA" /> <code codeSystem="local" code="NA" displayName="Sodium" /> <statusCode code="completed" /> < effectiveTime value="627847216898" /> <value unit="mEq/L" xsi:type="PQ " value="138" /> <referenceRange> <observationRange> <text>136-144</text> </observationRange> </ referenceRange> </observation> </component> </organizer> </entry > <entry> <organizer moodCode="EVN" classCode="BATTERY"> <templateId root="11.30.840.1.643386.08.03.22.4.1" /> <id nullFlavor="NA" /> <code codeSystem="local" code="ACETM" displayName="Acetaminophen" /> <statusCode code="completed" /> <component> <observation moodCode="EVN" classCode="OBS"> <templateId root="840.1.569370.08.03.22.4.2" /> <id nullFlavor="NA" /> <code codeSystem="local" code="ACETM" displayName="Acetaminophen" /> <statusCode code="completed" /> <effectiveTime value="" /> <value unit="mcg/mL" xsi:type= "PQ" value="<10" /> <referenceRange> <observationRange> <text>10-30</text> </observationRange> </ referenceRange> </observation> </component> </organizer> </entry > <entry> <organizer moodCode="EVN" classCode="BATTERY"> <templateId root="840.1.445707.08.03.22.4.1" /> <id nullFlavor="NA" /> <code codeSystem="local" code="GFR" displayName="eGFR" /> <statusCode code= "completed" /> <component> <observation moodCode="EVN" classCode= "OBS"> <templateId root="840.1.031834.08.03.22.4.2" /> < id nullFlavor="NA" /> <code codeSystem="local" code="GFR" displayName= "eGFR" /> <statusCode code="completed" /> <effectiveTime value ="085982327220" /> <value unit="mL/min" xsi:type="PQ" value=">60" / > <referenceRange> <observationRange> <text>&gt ;60</text> </observationRange> </referenceRange> </ observation> </component> </organizer> </entry> <entry> <organizer moodCode="EVN" classCode="BATTERY"> <templateId root= "11.30.840.1.984792.10.20.22.4.1" /> <id nullFlavor="NA" /> <code codeSystem="local" code="CBCND" displayName="CBC With Platelet No Differential" /> <statusCode code="completed" /> <component> <observation moodCode="EVN" classCode="OBS"> <templateId root= "11.30.840.1.328568.10..22.4.2" /> <id nullFlavor="NA" /> < code codeSystem="local" code="HCT" displayName="HCT" /> <statusCode code="completed" /> <effectiveTime value="356851943312" /> < value unit="%" xsi:type="PQ" value="35.8" /> <interpretationCode codeSystem="local" code="*" /> <referenceRange> < observationRange> <text>37.0-47.0</text> </ observationRange> </referenceRange> </observation> </ component> <component> <observation moodCode="EVN" classCode="OBS"> <templateId root="11.30.840.1.836869.10.20.22.4.2" /> <id nullFlavor="NA" /> <code codeSystem="local" code="HGB" displayName="HGB " /> <statusCode code="completed" /> <effectiveTime value= "126908015131" /> <value unit="g/dL" xsi:type="PQ" value="11.9" /> <interpretationCode codeSystem="local" code="*" /> < referenceRange> <observationRange> <text>12.0-16.0</text > </observationRange> </referenceRange> </observation > </component> <component> <observation moodCode="EVN" classCode="OBS"> <templateId root="11.30.840.1.716778.10.20.22.4.2" /> <id nullFlavor="NA" /> <code codeSystem="local" code="MCH" displayName="MCH" /> <statusCode code="completed" /> < effectiveTime value="173801080932" /> <value unit="pg" xsi:type="PQ" value="30.7" /> <referenceRange> <observationRange> <text>27.0-32.0</text> </observationRange> </ referenceRange> </observation> </component> <component> <observation moodCode="EVN" classCode="OBS"> <templateId root= "840.1.727513.10..4.2" /> <id nullFlavor="NA" /> < code codeSystem="local" code="MCHC" displayName="MCHC" /> <statusCode code="completed" /> <effectiveTime value="375717319744" /> < value unit="g/dL" xsi:type="PQ" value="33.2" /> <referenceRange> <observationRange> <text>32.0-36.0</text> </ observationRange> </referenceRange> </observation> </ component> <component> <observation moodCode="EVN" classCode="OBS"> <templateId root="11.30.840.1.005456.10.20.22.4.2" /> <id nullFlavor="NA" /> <code codeSystem="local" code="MCV" displayName="MCV " /> <statusCode code="completed" /> <effectiveTime value= "180658160382" /> <value unit="fL" xsi:type="PQ" value="92.5" /> <referenceRange> <observationRange> <text>82.0-99.0< /text> </observationRange> </referenceRange> </ observation> </component> <component> <observation moodCode= "EVN" classCode="OBS"> <templateId root="11.30.840.1.844437.08.03.22.4.2 " /> <id nullFlavor="NA" /> <code codeSystem="local" code="MPV " displayName="MPV" /> <statusCode code="completed" /> < effectiveTime value="182356467040" /> <value unit="fL" xsi:type="PQ" value="10.5" /> <referenceRange> <observationRange> <text>9.4-12.4</text> </observationRange> </ referenceRange> </observation> </component> <component> <observation moodCode="EVN" classCode="OBS"> <templateId root= "11.30.840.1.458163.08.03.22.4.2" /> <id nullFlavor="NA" /> < code codeSystem="local" code="PLT" displayName="Platelet Count" /> < statusCode code="completed" /> <effectiveTime value="898099788114" /> <value unit="K/uL" xsi:type="PQ" value="196" /> < referenceRange> <observationRange> <text>150-400</text> </observationRange> </referenceRange> </observation > </component> <component> <observation moodCode="EVN" classCode="OBS"> <templateId root="11.30.840.1.148150.08.03.22.4.2" /> <id nullFlavor="NA" /> <code codeSystem="local" code="RBC" displayName="RBC" /> <statusCode code="completed" /> < effectiveTime value="" /> <value unit="10*6/uL" xsi:type= "PQ" value="3.87" /> <interpretationCode codeSystem="local" code="*" / > <referenceRange> <observationRange> <text> 4.00-5.20</text> </observationRange> </referenceRange> </observation> </component> <component> <observation moodCode="EVN" classCode="OBS"> <templateId root= "2.16.840.1.276841.08.03.22.4.2" /> <id nullFlavor="NA" /> < code codeSystem="local" code="RDW" displayName="RDW" /> <statusCode code="completed" /> <effectiveTime value="" /> < value unit="%" xsi:type="PQ" value="13.1" /> <referenceRange> <observationRange> <text>11.5-14.5</text> </ observationRange> </referenceRange> </observation> </ component> <component> <observation moodCode="EVN" classCode="OBS"> <templateId root="2.16.840.1.502192.08.03.22.4.2" /> <id nullFlavor="NA" /> <code codeSystem="local" code="WBCIR" displayName= "WBC" /> <statusCode code="completed" /> <effectiveTime value= "" /> <value unit="K/uL" xsi:type="PQ" value="5.1" /> <referenceRange> <observationRange> <text>4.8-10.8< /text> </observationRange> </referenceRange> </ observation> </component> </organizer> </entry> <entry> <organizer moodCode="EVN" classCode="BATTERY"> <templateId root= "2.16.840.1.213390.10..22.4.1" /> <id nullFlavor="NA" /> <code codeSystem="local" code="CMP" displayName="Comprehensive Metabolic Panel (CMP)" /> <statusCode code="completed" /> <component> <observation moodCode="EVN" classCode="OBS"> <templateId root= "2.16.840.1.716969.10...4.2" /> <id nullFlavor="NA" /> < code codeSystem="local" code="ALB" displayName="Albumin" /> < statusCode code="completed" /> <effectiveTime value="" /> <value unit="g/dL" xsi:type="PQ" value="3.2" /> < interpretationCode codeSystem="local" code="*" /> <referenceRange> <observationRange> <text>3.5-4.8</text> </ observationRange> </referenceRange> </observation> </ component> <component> <observation moodCode="EVN" classCode="OBS"> <templateId root="216.840.1.179245....4.2" /> <id nullFlavor="NA" /> <code codeSystem="local" code="ALP" displayName= "Alkaline Phosphatase" /> <statusCode code="completed" /> < effectiveTime value="" /> <value unit="U/L" xsi:type="PQ" value="45" /> <referenceRange> <observationRange> <text>26-104</text> </observationRange> </referenceRange > </observation> </component> <component> <observation moodCode="EVN" classCode="OBS"> <templateId root= "216.840.1.838253.10..22.4.2" /> <id nullFlavor="NA" /> < code codeSystem="local" code="ALT" displayName="ALT (SGPT)" /> < statusCode code="completed" /> <effectiveTime value="" /> <value unit="U/L" xsi:type="PQ" value="18" /> <referenceRange > <observationRange> <text>14-54</text> </ observationRange> </referenceRange> </observation> </ component> <component> <observation moodCode="EVN" classCode="OBS"> <templateId root="11.30.840.1.180233.10...4.2" /> <id nullFlavor="NA" /> <code codeSystem="local" code="AGAP" displayName= "Anion Gap" /> <statusCode code="completed" /> <effectiveTime value="" /> <value unit="mEq/L" xsi:type="PQ" value="6" /> <referenceRange> <observationRange> <text>3-20 </text> </observationRange> </referenceRange> </ observation> </component> <component> <observation moodCode= "EVN" classCode="OBS"> <templateId root="11.30.840.1.686111.10..22.4.2 " /> <id nullFlavor="NA" /> <code codeSystem="local" code="AST " displayName="AST (SGOT)" /> <statusCode code="completed" /> <effectiveTime value="" /> <value unit="U/L" xsi:type="PQ" value="15" /> <referenceRange> <observationRange> <text>15-41</text> </observationRange> </referenceRange > </observation> </component> <component> <observation moodCode="EVN" classCode="OBS"> <templateId root= "16.840.1.155689.08.03.22.4.2" /> <id nullFlavor="NA" /> < code codeSystem="local" code="BILIT" displayName="Bilirubin Total" /> < statusCode code="completed" /> <effectiveTime value="" /> <value unit="mg/dL" xsi:type="PQ" value="0.9" /> < referenceRange> <observationRange> <text>0.2-1.2</text> </observationRange> </referenceRange> </observation > </component> <component> <observation moodCode="EVN" classCode="OBS"> <templateId root="11.30.840.1.515938.08.03.22.4.2" /> <id nullFlavor="NA" /> <code codeSystem="local" code="BUN" displayName="BUN" /> <statusCode code="completed" /> < effectiveTime value="" /> <value unit="mg/dL" xsi:type="PQ " value="6" /> <referenceRange> <observationRange> <text>4-20</text> </observationRange> </referenceRange > </observation> </component> <component> <observation moodCode="EVN" classCode="OBS"> <templateId root= "11.30.840.1.937783.08.03.22.4.2" /> <id nullFlavor="NA" /> < code codeSystem="local" code="CA" displayName="Calcium" /> <statusCode code="completed" /> <effectiveTime value="" /> < value unit="mg/dL" xsi:type="PQ" value="8.2" /> <interpretationCode codeSystem="local" code="*" /> <referenceRange> < observationRange> <text>8.6-10.0</text> </ observationRange> </referenceRange> </observation> </ component> <component> <observation moodCode="EVN" classCode="OBS"> <templateId root="11.30.840.1.514123.10.4.2" /> <id nullFlavor="NA" /> <code codeSystem="local" code="CL" displayName= "Chloride" /> <statusCode code="completed" /> <effectiveTime value="[id number]" /> <value unit="mEq/L" xsi:type="PQ" value="111" / > <interpretationCode codeSystem="local" code="*" /> < referenceRange> <observationRange> <text>99-109</text> </observationRange> </referenceRange> </observation> </component> <component> <observation moodCode="EVN" classCode ="OBS"> <templateId root="840.1.470718.08.03.22.4.2" /> < id nullFlavor="NA" /> <code codeSystem="local" code="CO2" displayName= "CO2" /> <statusCode code="completed" /> <effectiveTime value= "[id number]" /> <value unit="mEq/L" xsi:type="PQ" value="22" /> <referenceRange> <observationRange> <text>22-32</ text> </observationRange> </referenceRange> </ observation> </component> <component> <observation moodCode= "EVN" classCode="OBS"> <templateId root="11.30.840.1.174874.08.03.22.4.2 " /> <id nullFlavor="NA" /> <code codeSystem="local" code= "CREAT" displayName="Creatinine" /> <statusCode code="completed" /> <effectiveTime value="" /> <value unit="mg/dL" xsi: type="PQ" value="0.63" /> <referenceRange> <observationRange > <text>0.44-1.03</text> </observationRange> </ referenceRange> </observation> </component> <component> <observation moodCode="EVN" classCode="OBS"> <templateId root= "2.16.840.1.966242.10..22.4.2" /> <id nullFlavor="NA" /> < code codeSystem="local" code="GLOB" displayName="Globulin" /> < statusCode code="completed" /> <effectiveTime value="" /> <value unit="g/dL" xsi:type="PQ" value="2.3" /> < referenceRange> <observationRange> <text>1.9-4.3</text> </observationRange> </referenceRange> </observation > </component> <component> <observation moodCode="EVN" classCode="OBS"> <templateId root="2.16.840.1.283191.10...4.2" /> <id nullFlavor="NA" /> <code codeSystem="local" code="GLU" displayName="Glucose" /> <statusCode code="completed" /> < effectiveTime value="" /> <value unit="mg/dL" xsi:type="PQ " value="79" /> <referenceRange> <observationRange> <text>70-100</text> </observationRange> </ referenceRange> </observation> </component> <component> <observation moodCode="EVN" classCode="OBS"> <templateId root= "11.30.840.1.787396.10.22.4.2" /> <id nullFlavor="NA" /> < code codeSystem="local" code="K" displayName="Potassium" /> < statusCode code="completed" /> <effectiveTime value="" /> <value unit="mEq/L" xsi:type="PQ" value="3.0" /> < interpretationCode codeSystem="local" code="*" /> <referenceRange> <observationRange> <text>3.6-5.1</text> </ observationRange> </referenceRange> </observation> </ component> <component> <observation moodCode="EVN" classCode="OBS"> <templateId root="840.1.922661.08.03.22.4.2" /> <id nullFlavor="NA" /> <code codeSystem="local" code="TP" displayName= "Protein" /> <statusCode code="completed" /> <effectiveTime value="" /> <value unit="g/dL" xsi:type="PQ" value="5.5" / > <interpretationCode codeSystem="local" code="*" /> < referenceRange> <observationRange> <text>6.1-7.9</text> </observationRange> </referenceRange> </observation > </component> <component> <observation moodCode="EVN" classCode="OBS"> <templateId root="840.1.769660.10.22.4.2" /> <id nullFlavor="NA" /> <code codeSystem="local" code="NA" displayName="Sodium" /> <statusCode code="completed" /> < effectiveTime value="" /> <value unit="mEq/L" xsi:type="PQ " value="139" /> <referenceRange> <observationRange> <text>136-144</text> </observationRange> </ referenceRange> </observation> </component> </organizer> </entry > <entry> <organizer moodCode="EVN" classCode="BATTERY"> <templateId root="11.30.840.1.331146.10.22.4.1" /> <id nullFlavor="NA" /> <code codeSystem="local" code="GFR" displayName="eGFR" /> <statusCode code= "completed" /> <component> <observation moodCode="EVN" classCode= "OBS"> <templateId root="840.1.165308.08.03.22.4.2" /> < id nullFlavor="NA" /> <code codeSystem="local" code="GFR" displayName= "eGFR" /> <statusCode code="completed" /> <effectiveTime value ="[id number]" /> <value unit="mL/min" xsi:type="PQ" value=">60" / > <referenceRange> <observationRange> <text>&gt ;60</text> </observationRange> </referenceRange> </ observation> </component> </organizer> </entry> <entry> <organizer moodCode="EVN" classCode="BATTERY"> <templateId root= "840.1.085482.22.4.1" /> <id nullFlavor="NA" /> <code codeSystem="local" code="CBCND" displayName="CBC With Platelet No Differential" /> <statusCode code="completed" /> <component> <observation moodCode="EVN" classCode="OBS"> <templateId root= "11.30.840.1.943684.22.4.2" /> <id nullFlavor="NA" /> < code codeSystem="local" code="HCT" displayName="HCT" /> <statusCode code="completed" /> <effectiveTime value="" /> < value unit="%" xsi:type="PQ" value="36.3" /> <interpretationCode codeSystem="local" code="*" /> <referenceRange> < observationRange> <text>37.0-47.0</text> </ observationRange> </referenceRange> </observation> </ component> <component> <observation moodCode="EVN" classCode="OBS"> <templateId root="2.16.840.1.181532.10..4.2" /> <id nullFlavor="NA" /> <code codeSystem="local" code="HGB" displayName="HGB " /> <statusCode code="completed" /> <effectiveTime value= "" /> <value unit="g/dL" xsi:type="PQ" value="11.8" /> <interpretationCode codeSystem="local" code="*" /> < referenceRange> <observationRange> <text>12.0-16.0</text > </observationRange> </referenceRange> </observation > </component> <component> <observation moodCode="EVN" classCode="OBS"> <templateId root="216.840.1.295527.10.22.4.2" /> <id nullFlavor="NA" /> <code codeSystem="local" code="MCH" displayName="MCH" /> <statusCode code="completed" /> < effectiveTime value="" /> <value unit="pg" xsi:type="PQ" value="30.8" /> <referenceRange> <observationRange> <text>27.0-32.0</text> </observationRange> </ referenceRange> </observation> </component> <component> <observation moodCode="EVN" classCode="OBS"> <templateId root= "216.840.1.664768.10.4.2" /> <id nullFlavor="NA" /> < code codeSystem="local" code="MCHC" displayName="MCHC" /> <statusCode code="completed" /> <effectiveTime value="" /> < value unit="g/dL" xsi:type="PQ" value="32.5" /> <referenceRange> <observationRange> <text>32.0-36.0</text> </ observationRange> </referenceRange> </observation> </ component> <component> <observation moodCode="EVN" classCode="OBS"> <templateId root="11.30.840.1.184971.08.03.22.4.2" /> <id nullFlavor="NA" /> <code codeSystem="local" code="MCV" displayName="MCV " /> <statusCode code="completed" /> <effectiveTime value= "" /> <value unit="fL" xsi:type="PQ" value="94.8" /> <referenceRange> <observationRange> <text>82.0-99.0< /text> </observationRange> </referenceRange> </ observation> </component> <component> <observation moodCode= "EVN" classCode="OBS"> <templateId root="216.840.1.396954.08.03.22.4.2 " /> <id nullFlavor="NA" /> <code codeSystem="local" code="MPV " displayName="MPV" /> <statusCode code="completed" /> < effectiveTime value="" /> <value unit="fL" xsi:type="PQ" value="10.5" /> <referenceRange> <observationRange> <text>9.4-12.4</text> </observationRange> </ referenceRange> </observation> </component> <component> <observation moodCode="EVN" classCode="OBS"> <templateId root= "11.30.840.1.132918.10.20.22.4.2" /> <id nullFlavor="NA" /> < code codeSystem="local" code="PLT" displayName="Platelet Count" /> < statusCode code="completed" /> <effectiveTime value="[id number]" /> <value unit="K/uL" xsi:type="PQ" value="184" /> < referenceRange> <observationRange> <text>150-400</text> </observationRange> </referenceRange> </observation > </component> <component> <observation moodCode="EVN" classCode="OBS"> <templateId root="840.1.936063.10..22.4.2" /> <id nullFlavor="NA" /> <code codeSystem="local" code="RBC" displayName="RBC" /> <statusCode code="completed" /> < effectiveTime value="089537989955" /> <value unit="10*6/uL" xsi:type= "PQ" value="3.83" /> <interpretationCode codeSystem="local" code="*" / > <referenceRange> <observationRange> <text> 4.00-5.20</text> </observationRange> </referenceRange> </observation> </component> <component> <observation moodCode="EVN" classCode="OBS"> <templateId root= "11.30.840.1.102242.10.20.22.4.2" /> <id nullFlavor="NA" /> < code codeSystem="local" code="RDW" displayName="RDW" /> <statusCode code="completed" /> <effectiveTime value="686093110780" /> < value unit="%" xsi:type="PQ" value="13.3" /> <referenceRange> <observationRange> <text>11.5-14.5</text> </ observationRange> </referenceRange> </observation> </ component> <component> <observation moodCode="EVN" classCode="OBS"> <templateId root="840.1.505650.08.03.22.4.2" /> <id nullFlavor="NA" /> <code codeSystem="local" code="WBCIR" displayName= "WBC" /> <statusCode code="completed" /> <effectiveTime value= "845367747269" /> <value unit="K/uL" xsi:type="PQ" value="5.0" /> <referenceRange> <observationRange> <text>4.8-10.8< /text> </observationRange> </referenceRange> </ observation> </component> </organizer> </entry> <entry> <organizer moodCode="EVN" classCode="BATTERY"> <templateId root= "840.1.821896.08.03.22.4.1" /> <id nullFlavor="NA" /> <code codeSystem="local" code="CMP" displayName="Comprehensive Metabolic Panel (CMP)" /> <statusCode code="completed" /> <component> <observation moodCode="EVN" classCode="OBS"> <templateId root= "11.30.840.1.992433.22.4.2" /> <id nullFlavor="NA" /> < code codeSystem="local" code="ALB" displayName="Albumin" /> < statusCode code="completed" /> <effectiveTime value="413236043739" /> <value unit="g/dL" xsi:type="PQ" value="3.4" /> < interpretationCode codeSystem="local" code="*" /> <referenceRange> <observationRange> <text>3.5-4.8</text> </ observationRange> </referenceRange> </observation> </ component> <component> <observation moodCode="EVN" classCode="OBS"> <templateId root="16.840.1.849638.10..4.2" /> <id nullFlavor="NA" /> <code codeSystem="local" code="ALP" displayName= "Alkaline Phosphatase" /> <statusCode code="completed" /> < effectiveTime value="" /> <value unit="U/L" xsi:type="PQ" value="47" /> <referenceRange> <observationRange> <text>26-104</text> </observationRange> </referenceRange > </observation> </component> <component> <observation moodCode="EVN" classCode="OBS"> <templateId root= "11.30.840.1.126832.10...4.2" /> <id nullFlavor="NA" /> < code codeSystem="local" code="ALT" displayName="ALT (SGPT)" /> < statusCode code="completed" /> <effectiveTime value="153111427557" /> <value unit="U/L" xsi:type="PQ" value="24" /> <referenceRange > <observationRange> <text>14-54</text> </ observationRange> </referenceRange> </observation> </ component> <component> <observation moodCode="EVN" classCode="OBS"> <templateId root="11.30.840.1.404630...4.2" /> <id nullFlavor="NA" /> <code codeSystem="local" code="AGAP" displayName= "Anion Gap" /> <statusCode code="completed" /> <effectiveTime value="" /> <value unit="mEq/L" xsi:type="PQ" value="6" /> <referenceRange> <observationRange> <text>3-20 </text> </observationRange> </referenceRange> </ observation> </component> <component> <observation moodCode= "EVN" classCode="OBS"> <templateId root="2.16.840.1.824087...4.2 " /> <id nullFlavor="NA" /> <code codeSystem="local" code="AST " displayName="AST (SGOT)" /> <statusCode code="completed" /> <effectiveTime value="" /> <value unit="U/L" xsi:type="PQ" value="24" /> <referenceRange> <observationRange> <text>15-41</text> </observationRange> </referenceRange > </observation> </component> <component> <observation moodCode="EVN" classCode="OBS"> <templateId root= "2.16.840.1.807382....4.2" /> <id nullFlavor="NA" /> < code codeSystem="local" code="BILIT" displayName="Bilirubin Total" /> < statusCode code="completed" /> <effectiveTime value="" /> <value unit="mg/dL" xsi:type="PQ" value="0.6" /> < referenceRange> <observationRange> <text>0.2-1.2</text> </observationRange> </referenceRange> </observation > </component> <component> <observation moodCode="EVN" classCode="OBS"> <templateId root="11.30.840.1.319169.10.20.22.4.2" /> <id nullFlavor="NA" /> <code codeSystem="local" code="BUN" displayName="BUN" /> <statusCode code="completed" /> < effectiveTime value="" /> <value unit="mg/dL" xsi:type="PQ " value="8" /> <referenceRange> <observationRange> <text>4-20</text> </observationRange> </referenceRange > </observation> </component> <component> <observation moodCode="EVN" classCode="OBS"> <templateId root= "11.30.840.1.846749.10.22.4.2" /> <id nullFlavor="NA" /> < code codeSystem="local" code="CA" displayName="Calcium" /> <statusCode code="completed" /> <effectiveTime value="" /> < value unit="mg/dL" xsi:type="PQ" value="8.3" /> <interpretationCode codeSystem="local" code="*" /> <referenceRange> < observationRange> <text>8.6-10.0</text> </ observationRange> </referenceRange> </observation> </ component> <component> <observation moodCode="EVN" classCode="OBS"> <templateId root="11.30.840.1.054667.10.20.22.4.2" /> <id nullFlavor="NA" /> <code codeSystem="local" code="CL" displayName= "Chloride" /> <statusCode code="completed" /> <effectiveTime value="" /> <value unit="mEq/L" xsi:type="PQ" value="111" / > <interpretationCode codeSystem="local" code="*" /> < referenceRange> <observationRange> <text>99-109</text> </observationRange> </referenceRange> </observation> </component> <component> <observation moodCode="EVN" classCode ="OBS"> <templateId root="11.30.840.1.875176.10.20..4.2" /> < id nullFlavor="NA" /> <code codeSystem="local" code="CO2" displayName= "CO2" /> <statusCode code="completed" /> <effectiveTime value= "" /> <value unit="mEq/L" xsi:type="PQ" value="22" /> <referenceRange> <observationRange> <text>22-32</ text> </observationRange> </referenceRange> </ observation> </component> <component> <observation moodCode= "EVN" classCode="OBS"> <templateId root="11.30.840.1.326870.10..4.2 " /> <id nullFlavor="NA" /> <code codeSystem="local" code= "CREAT" displayName="Creatinine" /> <statusCode code="completed" /> <effectiveTime value="" /> <value unit="mg/dL" xsi: type="PQ" value="0.54" /> <referenceRange> <observationRange > <text>0.44-1.03</text> </observationRange> </ referenceRange> </observation> </component> <component> <observation moodCode="EVN" classCode="OBS"> <templateId root= "11.30.840.1.690564.10..22.4.2" /> <id nullFlavor="NA" /> < code codeSystem="local" code="GLOB" displayName="Globulin" /> < statusCode code="completed" /> <effectiveTime value="" /> <value unit="g/dL" xsi:type="PQ" value="2.1" /> < referenceRange> <observationRange> <text>1.9-4.3</text> </observationRange> </referenceRange> </observation > </component> <component> <observation moodCode="EVN" classCode="OBS"> <templateId root="11.30.840.1.579406.08.03.22.4.2" /> <id nullFlavor="NA" /> <code codeSystem="local" code="GLU" displayName="Glucose" /> <statusCode code="completed" /> < effectiveTime value="" /> <value unit="mg/dL" xsi:type="PQ " value="83" /> <referenceRange> <observationRange> <text>70-100</text> </observationRange> </ referenceRange> </observation> </component> <component> <observation moodCode="EVN" classCode="OBS"> <templateId root= "11.30.840.1.410755.08.03.22.4.2" /> <id nullFlavor="NA" /> < code codeSystem="local" code="K" displayName="Potassium" /> < statusCode code="completed" /> <effectiveTime value="" /> <value unit="mEq/L" xsi:type="PQ" value="3.9" /> < referenceRange> <observationRange> <text>3.6-5.1</text> </observationRange> </referenceRange> </observation > </component> <component> <observation moodCode="EVN" classCode="OBS"> <templateId root="11.30.840.1.760764.22.4.2" /> <id nullFlavor="NA" /> <code codeSystem="local" code="TP" displayName="Protein" /> <statusCode code="completed" /> < effectiveTime value="" /> <value unit="g/dL" xsi:type="PQ" value="5.5" /> <interpretationCode codeSystem="local" code="*" /> <referenceRange> <observationRange> <text>6.1-7.9</ text> </observationRange> </referenceRange> </ observation> </component> <component> <observation moodCode= "EVN" classCode="OBS"> <templateId root="840.1.441832.08.03.22.4.2 " /> <id nullFlavor="NA" /> <code codeSystem="local" code="NA " displayName="Sodium" /> <statusCode code="completed" /> < effectiveTime value="" /> <value unit="mEq/L" xsi:type="PQ " value="139" /> <referenceRange> <observationRange> <text>136-144</text> </observationRange> </ referenceRange> </observation> </component> </organizer> </entry > <entry> <organizer moodCode="EVN" classCode="BATTERY"> <templateId root="840.1.172311.08.03.22.4.1" /> <id nullFlavor="NA" /> <code codeSystem="local" code="GFR" displayName="eGFR" /> <statusCode code= "completed" /> <component> <observation moodCode="EVN" classCode= "OBS"> <templateId root="11.30.840.1.675335.22.4.2" /> < id nullFlavor="NA" /> <code codeSystem="local" code="GFR" displayName= "eGFR" /> <statusCode code="completed" /> <effectiveTime value ="[id number]" /> <value unit="mL/min" xsi:type="PQ" value=">60" / > <referenceRange> <observationRange> <text>&gt ;60</text> </observationRange> </referenceRange> </ observation> </component> </organizer> </entry> <entry> <organizer moodCode="EVN" classCode="BATTERY"> <templateId root= "16.840.1.456358.10..22.4.1" /> <id nullFlavor="NA" /> <code codeSystem="local" code="TSHR" displayName="TSH with Reflex Free T4" /> < statusCode code="completed" /> <component> <observation moodCode= "EVN" classCode="OBS"> <templateId root="11.30.840.1.203709.10..22.4.2 " /> <id nullFlavor="NA" /> <code codeSystem="local" code= "TSHR" displayName="TSH with Reflex Free T4" /> <statusCode code= "completed" /> <effectiveTime value="042840698131" /> <value unit="uIU/mL" xsi:type="PQ" value="1.17" /> <referenceRange> <observationRange> <text>0.35-4.94</text> </ observationRange> </referenceRange> </observation> </ component> </organizer> </entry> <entry> <organizer moodCode="EVN" classCode="BATTERY"> <templateId root="11.30.840.1.646837.10..22.4.1" /> <id nullFlavor="NA" /> <code codeSystem="local" code="UA" displayName= "Urinalysis with reflex microscopic" /> <statusCode code="completed" /> <component> <observation moodCode="EVN" classCode="OBS"> < templateId root="216.840.1.190821.08.03.22.4.2" /> <id nullFlavor="NA " /> <code codeSystem="local" code="UAPP" displayName="Appearance" /> <statusCode code="completed" /> <effectiveTime value= "" /> <value unit="NA" xsi:type="PQ" value="Sl Cloudy" /> <referenceRange> <observationRange> <text /> </observationRange> </referenceRange> </observation> </component> <component> <observation moodCode="EVN" classCode= "OBS"> <templateId root="16.840.1.002565.08.03.22.4.2" /> < id nullFlavor="NA" /> <code codeSystem="local" code="UBIL" displayName= "Bilirubin" /> <statusCode code="completed" /> <effectiveTime value="" /> <value unit="NA" xsi:type="PQ" value="Negative " /> <referenceRange> <observationRange> <text> Negative</text> </observationRange> </referenceRange> </observation> </component> <component> <observation moodCode ="EVN" classCode="OBS"> <templateId root= "16.840.1.951077.08.03.22.4.2" /> <id nullFlavor="NA" /> < code codeSystem="local" code="UBLD" displayName="Blood" /> <statusCode code="completed" /> <effectiveTime value="" /> < value unit="NA" xsi:type="PQ" value="Pos 3+" /> <interpretationCode codeSystem="local" code="*" /> <referenceRange> < observationRange> <text>Negative</text> </ observationRange> </referenceRange> </observation> </ component> <component> <observation moodCode="EVN" classCode="OBS"> <templateId root="11.30.840.1.995494.10.4.2" /> <id nullFlavor="NA" /> <code codeSystem="local" code="UCOLR" displayName= "Color" /> <statusCode code="completed" /> <effectiveTime value="" /> <value unit="NA" xsi:type="PQ" value="Aliza" / > <interpretationCode codeSystem="local" code="*" /> < referenceRange> <observationRange> <text /> < /observationRange> </referenceRange> </observation> </ component> <component> <observation moodCode="EVN" classCode="OBS"> <templateId root="11.30.840.1.757363.08.03.224.2" /> <id nullFlavor="NA" /> <code codeSystem="local" code="UGLU" displayName= "Glucose, Urine" /> <statusCode code="completed" /> < effectiveTime value="" /> <value unit="" xsi:type="PQ" value="Negative" /> <referenceRange> <observationRange> <text>Negative</text> </observationRange> </ referenceRange> </observation> </component> <component> <observation moodCode="EVN" classCode="OBS"> <templateId root= "11.30.840.1.050625.08.03.224.2" /> <id nullFlavor="NA" /> < code codeSystem="local" code="UKET" displayName="Ketones" /> < statusCode code="completed" /> <effectiveTime value="" /> <value unit="" xsi:type="PQ" value="Negative" /> < referenceRange> <observationRange> <text>Negative</text > </observationRange> </referenceRange> </observation > </component> <component> <observation moodCode="EVN" classCode="OBS"> <templateId root="16.840.1.087664.10.4.2" /> <id nullFlavor="NA" /> <code codeSystem="local" code="ULEU" displayName="Leukocyte Esterase" /> <statusCode code="completed" /> <effectiveTime value="" /> <value unit="NA" xsi:type ="PQ" value="Negative" /> <referenceRange> <observationRange > <text>Negative</text> </observationRange> </ referenceRange> </observation> </component> <component> <observation moodCode="EVN" classCode="OBS"> <templateId root= "840.1.624886.08.03.22.4.2" /> <id nullFlavor="NA" /> < code codeSystem="local" code="UNIT" displayName="Nitrites" /> < statusCode code="completed" /> <effectiveTime value="" /> <value unit="NA" xsi:type="PQ" value="Negative" /> < referenceRange> <observationRange> <text>Negative</text > </observationRange> </referenceRange> </observation > </component> <component> <observation moodCode="EVN" classCode="OBS"> <templateId root="11.30.840.1.102588.08.03.22.4.2" /> <id nullFlavor="NA" /> <code codeSystem="local" code="UPH" displayName="pH" /> <statusCode code="completed" /> < effectiveTime value="952435887621" /> <value unit="NA" xsi:type="PQ" value="5.0" /> <referenceRange> <observationRange> <text>5.0-8.0</text> </observationRange> </ referenceRange> </observation> </component> <component> <observation moodCode="EVN" classCode="OBS"> <templateId root= "16.840.1.549653.08.03.22.4.2" /> <id nullFlavor="NA" /> < code codeSystem="local" code="UPRO" displayName="Protein" /> < statusCode code="completed" /> <effectiveTime value="336139026404" /> <value unit="NA" xsi:type="PQ" value="Negative" /> < referenceRange> <observationRange> <text>Negative</text > </observationRange> </referenceRange> </observation > </component> <component> <observation moodCode="EVN" classCode="OBS"> <templateId root="11.30.840.1.550269.08.03.22.4.2" /> <id nullFlavor="NA" /> <code codeSystem="local" code="USPG" displayName="Specific Homer" /> <statusCode code="completed" /> <effectiveTime value="685736250190" /> <value unit="NA" xsi:type= "PQ" value="1.025" /> <referenceRange> <observationRange> <text>1.003-1.030</text> </observationRange> </ referenceRange> </observation> </component> <component> <observation moodCode="EVN" classCode="OBS"> <templateId root= "11.30.840.1.153948.08.03.22.4.2" /> <id nullFlavor="NA" /> < code codeSystem="local" code="UTYP" displayName="UA Collection type" /> <statusCode code="completed" /> <effectiveTime value="687187452784" / > <value unit="NA" xsi:type="PQ" value="Clean Catch" /> < referenceRange> <observationRange> <text /> < /observationRange> </referenceRange> </observation> </ component> <component> <observation moodCode="EVN" classCode="OBS"> <templateId root="840.1.485330.08.03.22.4.2" /> <id nullFlavor="NA" /> <code codeSystem="local" code="UURO" displayName= "Urobilinogen" /> <statusCode code="completed" /> < effectiveTime value="233340177008" /> <value unit="mg/dL" xsi:type="PQ " value="2.0" /> <interpretationCode codeSystem="local" code="*" /> <referenceRange> <observationRange> <text><1.0 </text> </observationRange> </referenceRange> </ observation> </component> </organizer> </entry> <entry> <organizer moodCode="EVN" classCode="BATTERY"> <templateId root= "840.1.394511.08.03.22.4.1" /> <id nullFlavor="NA" /> <code codeSystem="local" code="UMIC" displayName="Urine Microscopic" /> < statusCode code="completed" /> <component> <observation moodCode= "EVN" classCode="OBS"> <templateId root="840.1.362054.22.4.2 " /> <id nullFlavor="NA" /> <code codeSystem="local" code= "UBAC" displayName="Bacteria" /> <statusCode code="completed" /> <effectiveTime value="" /> <value unit="NA" xsi:type= "PQ" value="Rare" /> <referenceRange> <observationRange> <text /> </observationRange> </referenceRange> </observation> </component> <component> <observation moodCode="EVN" classCode="OBS"> <templateId root= "840.1.235658.08.03.22.4.2" /> <id nullFlavor="NA" /> < code codeSystem="local" code="UCRY1" displayName="Crystals" /> < statusCode code="completed" /> <effectiveTime value="" /> <value unit="NA" xsi:type="PQ" value="Ca Ox" /> < referenceRange> <observationRange> <text /> < /observationRange> </referenceRange> </observation> </ component> <component> <observation moodCode="EVN" classCode="OBS"> <templateId root="840.1.849771.08.03.22.4.2" /> <id nullFlavor="NA" /> <code codeSystem="local" code="UEPI" displayName= "Epithelial Cells" /> <statusCode code="completed" /> < effectiveTime value="" /> <value unit="/HPF" xsi:type="PQ" value="0" /> <referenceRange> <observationRange> <text /> </observationRange> </referenceRange> </ observation> </component> <component> <observation moodCode= "EVN" classCode="OBS"> <templateId root="11.30.840.1.485304.22.4.2 " /> <id nullFlavor="NA" /> <code codeSystem="local" code= "URBC" displayName="RBC, Urine" /> <statusCode code="completed" /> <effectiveTime value="" /> <value unit="/HPF" xsi: type="PQ" value="0" /> <referenceRange> <observationRange> <text>0-2</text> </observationRange> </ referenceRange> </observation> </component> <component> <observation moodCode="EVN" classCode="OBS"> <templateId root= "216.840.1.030620.10.4.2" /> <id nullFlavor="NA" /> < code codeSystem="local" code="UMUC" displayName="Urine Mucus" /> < statusCode code="completed" /> <effectiveTime value="" /> <value unit="NA" xsi:type="PQ" value="Present" /> < referenceRange> <observationRange> <text /> < /observationRange> </referenceRange> </observation> </ component> <component> <observation moodCode="EVN" classCode="OBS"> <templateId root="216.840.1.917406.08.03.22.4.2" /> <id nullFlavor="NA" /> <code codeSystem="local" code="UWBC" displayName= "WBC, Urine" /> <statusCode code="completed" /> < effectiveTime value="" /> <value unit="/HPF" xsi:type="PQ" value="2" /> <referenceRange> <observationRange> <text>0-4</text> </observationRange> </referenceRange> </observation> </component> </organizer> </entry> <entry> < organizer moodCode="EVN" classCode="BATTERY"> <templateId root= "216.840.1.379853.08.03.22.4.1" /> <id nullFlavor="NA" /> <code codeSystem="local" code="UDRGH" displayName="Urine Drug Screen" /> < statusCode code="completed" /> <component> <observation moodCode= "EVN" classCode="OBS"> <templateId root="216.840.1.685043.10.4.2 " /> <id nullFlavor="NA" /> <code codeSystem="local" code= "UTCA1" displayName="Tricyclics" /> <statusCode code="completed" /> <effectiveTime value="527774666559" /> <value unit="NA" xsi:type ="PQ" value="Negative" /> <referenceRange> <observationRange > <text /> </observationRange> </referenceRange > </observation> </component> </organizer> </entry> <entry> <organizer moodCode="EVN" classCode="BATTERY"> <templateId root= "216.840.1.640019.10.4.1" /> <id nullFlavor="NA" /> <code codeSystem="local" code="PREGN" displayName=" Screen, Urine NPT" /> <statusCode code="completed" /> <component> <observation moodCode ="EVN" classCode="OBS"> <templateId root= "216.840.1.247906.10.4.2" /> <id nullFlavor="NA" /> < code codeSystem="local" code="PREGN" displayName=" Screen, Urine NPT" / > <statusCode code="completed" /> <effectiveTime value= "513561149773" /> <value unit="NA" xsi:type="PQ" value="Negative" /> <referenceRange> <observationRange> <text /> </observationRange> </referenceRange> </observation> </component> </organizer> </entry> <entry> <organizer moodCode="EVN " classCode="BATTERY"> <templateId root="2.16.840.1.930775.10..22.4.1" / > <id nullFlavor="NA" /> <code codeSystem="local" code="CBCWD" displayName="CBC With Platelet and Differential" /> <statusCode code= "completed" /> <component> <observation moodCode="EVN" classCode= "OBS"> <templateId root="2.16.840.1.800670.10..22.4.2" /> < id nullFlavor="NA" /> <code codeSystem="local" code="ABASR" displayName ="Absolute Basophils" /> <statusCode code="completed" /> < effectiveTime value="766673989346" /> <value unit="10*3/uL" xsi:type= "PQ" value="0.04" /> <referenceRange> <observationRange> <text>0.00-0.20</text> </observationRange> </ referenceRange> </observation> </component> <component> <observation moodCode="EVN" classCode="OBS"> <templateId root= "2.16.840.1.014165.10..22.4.2" /> <id nullFlavor="NA" /> < code codeSystem="local" code="AEOSR" displayName="Absolute Eosinophils" /> <statusCode code="completed" /> <effectiveTime value=" " /> <value unit="10*3/uL" xsi:type="PQ" value="0.32" /> < referenceRange> <observationRange> <text>0.00-0.50</text > </observationRange> </referenceRange> </observation > </component> <component> <observation moodCode="EVN" classCode="OBS"> <templateId root="16.840.1.753809.10.20.22.4.2" /> <id nullFlavor="NA" /> <code codeSystem="local" code="ALYMR" displayName="Absolute Lymphocytes" /> <statusCode code="completed" /> <effectiveTime value="" /> <value unit="10*3/uL" xsi:type="PQ" value="1.20" /> <referenceRange> < observationRange> <text>0.80-3.30</text> </ observationRange> </referenceRange> </observation> </ component> <component> <observation moodCode="EVN" classCode="OBS"> <templateId root="11.30.840.1.489163.1022.4.2" /> <id nullFlavor="NA" /> <code codeSystem="local" code="AMONR" displayName= "Absolute Monocytes" /> <statusCode code="completed" /> < effectiveTime value="" /> <value unit="10*3/uL" xsi:type= "PQ" value="0.36" /> <referenceRange> <observationRange> <text>0.30-1.00</text> </observationRange> </ referenceRange> </observation> </component> <component> <observation moodCode="EVN" classCode="OBS"> <templateId root= "11.30.840.1.073326.10.2022.4.2" /> <id nullFlavor="NA" /> < code codeSystem="local" code="ASEGR" displayName="Absolute Neutrophils" /> <statusCode code="completed" /> <effectiveTime value="589922961892 " /> <value unit="10*3/uL" xsi:type="PQ" value="2.23" /> < referenceRange> <observationRange> <text>1.90-7.00</text > </observationRange> </referenceRange> </observation > </component> <component> <observation moodCode="EVN" classCode="OBS"> <templateId root="11.30.840.1.272185.10.22.4.2" /> <id nullFlavor="NA" /> <code codeSystem="local" code="BASOR" displayName="Basophils" /> <statusCode code="completed" /> < effectiveTime value="734310756150" /> <value unit="%" xsi:type="PQ " value="1" /> <referenceRange> <observationRange> <text>0-2</text> </observationRange> </referenceRange> </observation> </component> <component> <observation moodCode="EVN" classCode="OBS"> <templateId root= "840.1.655641.08.03.22.4.2" /> <id nullFlavor="NA" /> < code codeSystem="local" code="EOSR" displayName="Eosinophils" /> < statusCode code="completed" /> <effectiveTime value="458912631109" /> <value unit="%" xsi:type="PQ" value="8" /> < interpretationCode codeSystem="local" code="*" /> <referenceRange> <observationRange> <text>0-4</text> </ observationRange> </referenceRange> </observation> </ component> <component> <observation moodCode="EVN" classCode="OBS"> <templateId root="11.30.840.1.253791.22.4.2" /> <id nullFlavor="NA" /> <code codeSystem="local" code="HCT" displayName="HCT " /> <statusCode code="completed" /> <effectiveTime value= "986042110417" /> <value unit="%" xsi:type="PQ" value="37.0" /> <referenceRange> <observationRange> <text>37.0- 47.0</text> </observationRange> </referenceRange> </ observation> </component> <component> <observation moodCode= "EVN" classCode="OBS"> <templateId root="216.840.1.726185.10.22.4.2 " /> <id nullFlavor="NA" /> <code codeSystem="local" code="HGB " displayName="HGB" /> <statusCode code="completed" /> < effectiveTime value="511665806370" /> <value unit="g/dL" xsi:type="PQ" value="12.1" /> <referenceRange> <observationRange> <text>12.0-16.0</text> </observationRange> </ referenceRange> </observation> </component> <component> <observation moodCode="EVN" classCode="OBS"> <templateId root= "216.840.1.253635.10..4.2" /> <id nullFlavor="NA" /> < code codeSystem="local" code="IMGA" displayName="Immature Granulocytes" /> <statusCode code="completed" /> <effectiveTime value="026874512294 " /> <value unit="%" xsi:type="PQ" value="0.2" /> < referenceRange> <observationRange> <text>0.0-1.0</text> </observationRange> </referenceRange> </observation > </component> <component> <observation moodCode="EVN" classCode="OBS"> <templateId root="216.840.1.133300..20.4.2" /> <id nullFlavor="NA" /> <code codeSystem="local" code="LYMPR" displayName="Lymphocytes" /> <statusCode code="completed" /> < effectiveTime value="154384705923" /> <value unit="%" xsi:type="PQ " value="29" /> <referenceRange> <observationRange> <text>20-46</text> </observationRange> </ referenceRange> </observation> </component> <component> <observation moodCode="EVN" classCode="OBS"> <templateId root= "216.840.1.042742.10..4.2" /> <id nullFlavor="NA" /> < code codeSystem="local" code="MCH" displayName="MCH" /> <statusCode code="completed" /> <effectiveTime value="" /> < value unit="pg" xsi:type="PQ" value="30.6" /> <referenceRange> <observationRange> <text>27.0-32.0</text> </ observationRange> </referenceRange> </observation> </ component> <component> <observation moodCode="EVN" classCode="OBS"> <templateId root="216.840.1.443546.10...4.2" /> <id nullFlavor="NA" /> <code codeSystem="local" code="MCHC" displayName= "MCHC" /> <statusCode code="completed" /> <effectiveTime value ="415789193643" /> <value unit="g/dL" xsi:type="PQ" value="32.7" /> <referenceRange> <observationRange> <text>32.0- 36.0</text> </observationRange> </referenceRange> </ observation> </component> <component> <observation moodCode= "EVN" classCode="OBS"> <templateId root="11.30.840.1.947815.10..22.4.2 " /> <id nullFlavor="NA" /> <code codeSystem="local" code="MCV " displayName="MCV" /> <statusCode code="completed" /> < effectiveTime value="738776844665" /> <value unit="fL" xsi:type="PQ" value="93.4" /> <referenceRange> <observationRange> <text>82.0-99.0</text> </observationRange> </ referenceRange> </observation> </component> <component> <observation moodCode="EVN" classCode="OBS"> <templateId root= "11.30.840.1.535381..22.4.2" /> <id nullFlavor="NA" /> < code codeSystem="local" code="MONOR" displayName="Monocytes" /> < statusCode code="completed" /> <effectiveTime value="789952869889" /> <value unit="%" xsi:type="PQ" value="9" /> <referenceRange > <observationRange> <text>4-11</text> </ observationRange> </referenceRange> </observation> </ component> <component> <observation moodCode="EVN" classCode="OBS"> <templateId root="11.30.840.1.466752.10.22.4.2" /> <id nullFlavor="NA" /> <code codeSystem="local" code="MPV" displayName="MPV " /> <statusCode code="completed" /> <effectiveTime value= "338586489492" /> <value unit="fL" xsi:type="PQ" value="10.1" /> <referenceRange> <observationRange> <text>9.4-12.4</ text> </observationRange> </referenceRange> </ observation> </component> <component> <observation moodCode= "EVN" classCode="OBS"> <templateId root="216.840.1.914052.10.4.2 " /> <id nullFlavor="NA" /> <code codeSystem="local" code= "SEGR" displayName="Neutrophils" /> <statusCode code="completed" /> <effectiveTime value="" /> <value unit="%" xsi: type="PQ" value="54" /> <referenceRange> <observationRange> <text>51-75</text> </observationRange> </ referenceRange> </observation> </component> <component> <observation moodCode="EVN" classCode="OBS"> <templateId root= "11.30.840.1.305236.10.4.2" /> <id nullFlavor="NA" /> < code codeSystem="local" code="NRBCA" displayName="Nucleated RBC Automated" /> <statusCode code="completed" /> <effectiveTime value= "" /> <value unit="/100WBC" xsi:type="PQ" value="0.0" /> <referenceRange> <observationRange> <text /> </observationRange> </referenceRange> </observation> </component> <component> <observation moodCode="EVN" classCode= "OBS"> <templateId root="16.840.1.232716.10.22.4.2" /> < id nullFlavor="NA" /> <code codeSystem="local" code="PLT" displayName= "Platelet Count" /> <statusCode code="completed" /> < effectiveTime value="578441741561" /> <value unit="K/uL" xsi:type="PQ" value="192" /> <referenceRange> <observationRange> <text>150-400</text> </observationRange> </ referenceRange> </observation> </component> <component> <observation moodCode="EVN" classCode="OBS"> <templateId root= "11.30.840.1.015588.10.20.22.4.2" /> <id nullFlavor="NA" /> < code codeSystem="local" code="RBC" displayName="RBC" /> <statusCode code="completed" /> <effectiveTime value="244870639430" /> < value unit="10*6/uL" xsi:type="PQ" value="3.96" /> <interpretationCode codeSystem="local" code="*" /> <referenceRange> < observationRange> <text>4.00-5.20</text> </ observationRange> </referenceRange> </observation> </ component> <component> <observation moodCode="EVN" classCode="OBS"> <templateId root="840.1.706599.08.03.22.4.2" /> <id nullFlavor="NA" /> <code codeSystem="local" code="RDW" displayName="RDW " /> <statusCode code="completed" /> <effectiveTime value= "781239266025" /> <value unit="%" xsi:type="PQ" value="13.3" /> <referenceRange> <observationRange> <text>11.5- 14.5</text> </observationRange> </referenceRange> </ observation> </component> <component> <observation moodCode= "EVN" classCode="OBS"> <templateId root="11.30.840.1.596323.10.20.22.4.2 " /> <id nullFlavor="NA" /> <code codeSystem="local" code= "WBCIR" displayName="WBC" /> <statusCode code="completed" /> < effectiveTime value="652816090428" /> <value unit="K/uL" xsi:type="PQ" value="4.2" /> <interpretationCode codeSystem="local" code="*" /> <referenceRange> <observationRange> <text>4.8-10.8< /text> </observationRange> </referenceRange> </ observation> </component> </organizer> </entry> <entry> <organizer moodCode="EVN" classCode="BATTERY"> <templateId root= "11.30.840.1.252252..22.4.1" /> <id nullFlavor="NA" /> <code codeSystem="local" code="CMP" displayName="Comprehensive Metabolic Panel (CMP)" /> <statusCode code="completed" /> <component> <observation moodCode="EVN" classCode="OBS"> <templateId root= "11.30.840.1.551843.10..22.4.2" /> <id nullFlavor="NA" /> < code codeSystem="local" code="ALB" displayName="Albumin" /> < statusCode code="completed" /> <effectiveTime value="055179156122" /> <value unit="g/dL" xsi:type="PQ" value="3.5" /> < referenceRange> <observationRange> <text>3.5-4.8</text> </observationRange> </referenceRange> </observation > </component> <component> <observation moodCode="EVN" classCode="OBS"> <templateId root="11.30.840.1.038976.10.2022.4.2" /> <id nullFlavor="NA" /> <code codeSystem="local" code="ALP" displayName="Alkaline Phosphatase" /> <statusCode code="completed" /> <effectiveTime value="806798977123" /> <value unit="U/L" xsi: type="PQ" value="64" /> <referenceRange> <observationRange> <text>26-104</text> </observationRange> </ referenceRange> </observation> </component> <component> <observation moodCode="EVN" classCode="OBS"> <templateId root= "216.840.1.997992.10...4.2" /> <id nullFlavor="NA" /> < code codeSystem="local" code="ALT" displayName="ALT (SGPT)" /> < statusCode code="completed" /> <effectiveTime value="034659724204" /> <value unit="U/L" xsi:type="PQ" value="209" /> < interpretationCode codeSystem="local" code="*" /> <referenceRange> <observationRange> <text>14-54</text> </ observationRange> </referenceRange> </observation> </ component> <component> <observation moodCode="EVN" classCode="OBS"> <templateId root="216.840.1.608759.10...4.2" /> <id nullFlavor="NA" /> <code codeSystem="local" code="AGAP" displayName= "Anion Gap" /> <statusCode code="completed" /> <effectiveTime value="361130619110" /> <value unit="mEq/L" xsi:type="PQ" value="8" /> <referenceRange> <observationRange> <text>3-20 </text> </observationRange> </referenceRange> </ observation> </component> <component> <observation moodCode= "EVN" classCode="OBS"> <templateId root="216.840.1.944133.22.4.2 " /> <id nullFlavor="NA" /> <code codeSystem="local" code="AST " displayName="AST (SGOT)" /> <statusCode code="completed" /> <effectiveTime value="335435213579" /> <value unit="U/L" xsi:type="PQ" value="155" /> <interpretationCode codeSystem="local" code="*" /> <referenceRange> <observationRange> <text>15-41</ text> </observationRange> </referenceRange> </ observation> </component> <component> <observation moodCode= "EVN" classCode="OBS"> <templateId root="16.840.1.534663.08.03.22.4.2 " /> <id nullFlavor="NA" /> <code codeSystem="local" code= "BILIT" displayName="Bilirubin Total" /> <statusCode code="completed" / > <effectiveTime value="244459583952" /> <value unit="mg/dL" xsi:type="PQ" value="0.5" /> <referenceRange> < observationRange> <text>0.2-1.2</text> </ observationRange> </referenceRange> </observation> </ component> <component> <observation moodCode="EVN" classCode="OBS"> <templateId root="11.30.840.1.341723.22.4.2" /> <id nullFlavor="NA" /> <code codeSystem="local" code="BUN" displayName="BUN " /> <statusCode code="completed" /> <effectiveTime value= "577034903404" /> <value unit="mg/dL" xsi:type="PQ" value="8" /> <referenceRange> <observationRange> <text>4-20</text > </observationRange> </referenceRange> </observation > </component> <component> <observation moodCode="EVN" classCode="OBS"> <templateId root="16.840.1.015817.10.4.2" /> <id nullFlavor="NA" /> <code codeSystem="local" code="CA" displayName="Calcium" /> <statusCode code="completed" /> < effectiveTime value="608009490422" /> <value unit="mg/dL" xsi:type="PQ " value="8.8" /> <referenceRange> <observationRange> <text>8.6-10.0</text> </observationRange> </ referenceRange> </observation> </component> <component> <observation moodCode="EVN" classCode="OBS"> <templateId root= "11.30.840.1.687591.08.03.22.4.2" /> <id nullFlavor="NA" /> < code codeSystem="local" code="CL" displayName="Chloride" /> < statusCode code="completed" /> <effectiveTime value="082267104454" /> <value unit="mEq/L" xsi:type="PQ" value="108" /> < referenceRange> <observationRange> <text>99-109</text> </observationRange> </referenceRange> </observation> </component> <component> <observation moodCode="EVN" classCode ="OBS"> <templateId root="11.30.840.1.509786.10.22.4.2" /> < id nullFlavor="NA" /> <code codeSystem="local" code="CO2" displayName= "CO2" /> <statusCode code="completed" /> <effectiveTime value= "343235396417" /> <value unit="mEq/L" xsi:type="PQ" value="24" /> <referenceRange> <observationRange> <text>22-32</ text> </observationRange> </referenceRange> </ observation> </component> <component> <observation moodCode= "EVN" classCode="OBS"> <templateId root="16.840.1.467901.10..22.4.2 " /> <id nullFlavor="NA" /> <code codeSystem="local" code= "CREAT" displayName="Creatinine" /> <statusCode code="completed" /> <effectiveTime value="893871209399" /> <value unit="mg/dL" xsi: type="PQ" value="0.77" /> <referenceRange> <observationRange > <text>0.44-1.03</text> </observationRange> </ referenceRange> </observation> </component> <component> <observation moodCode="EVN" classCode="OBS"> <templateId root= "11.30.840.1.417458.1022.4.2" /> <id nullFlavor="NA" /> < code codeSystem="local" code="GLOB" displayName="Globulin" /> < statusCode code="completed" /> <effectiveTime value="618912111511" /> <value unit="g/dL" xsi:type="PQ" value="2.3" /> < referenceRange> <observationRange> <text>1.9-4.3</text> </observationRange> </referenceRange> </observation > </component> <component> <observation moodCode="EVN" classCode="OBS"> <templateId root="11.30.840.1.191072.10.22.4.2" /> <id nullFlavor="NA" /> <code codeSystem="local" code="GLU" displayName="Glucose" /> <statusCode code="completed" /> < effectiveTime value="123379859246" /> <value unit="mg/dL" xsi:type="PQ " value="111" /> <interpretationCode codeSystem="local" code="*" /> <referenceRange> <observationRange> <text>70-100< /text> </observationRange> </referenceRange> </ observation> </component> <component> <observation moodCode= "EVN" classCode="OBS"> <templateId root="16.840.1.609788.10..22.4.2 " /> <id nullFlavor="NA" /> <code codeSystem="local" code="K" displayName="Potassium" /> <statusCode code="completed" /> < effectiveTime value="357974625708" /> <value unit="mEq/L" xsi:type="PQ " value="3.5" /> <interpretationCode codeSystem="local" code="*" /> <referenceRange> <observationRange> <text>3.6-5.1 </text> </observationRange> </referenceRange> </ observation> </component> <component> <observation moodCode= "EVN" classCode="OBS"> <templateId root="16.840.1.085365.10.20.22.4.2 " /> <id nullFlavor="NA" /> <code codeSystem="local" code="TP " displayName="Protein" /> <statusCode code="completed" /> < effectiveTime value="277474961565" /> <value unit="g/dL" xsi:type="PQ" value="5.8" /> <interpretationCode codeSystem="local" code="*" /> <referenceRange> <observationRange> <text>6.1-7.9</ text> </observationRange> </referenceRange> </ observation> </component> <component> <observation moodCode= "EVN" classCode="OBS"> <templateId root="11.30.840.1.973643.10..22.4.2 " /> <id nullFlavor="NA" /> <code codeSystem="local" code="NA " displayName="Sodium" /> <statusCode code="completed" /> < effectiveTime value="623696075212" /> <value unit="mEq/L" xsi:type="PQ " value="140" /> <referenceRange> <observationRange> <text>136-144</text> </observationRange> </ referenceRange> </observation> </component> </organizer> </entry > <entry> <organizer moodCode="EVN" classCode="BATTERY"> <templateId root="11.30.840.1.706364.10..4.1" /> <id nullFlavor="NA" /> <code codeSystem="local" code="ALC" displayName="Alcohol, Blood" /> <statusCode code="completed" /> <component> <observation moodCode="EVN" classCode="OBS"> <templateId root="11.30.840.1.400418.10..22.4.2" /> <id nullFlavor="NA" /> <code codeSystem="local" code="ALC" displayName="Alcohol, Blood" /> <statusCode code="completed" /> <effectiveTime value="697719296669" /> <value unit="mg/dL" xsi:type= "PQ" value="Not Detected" /> <referenceRange> < observationRange> <text /> </observationRange> </referenceRange> </observation> </component> </organizer> </ entry> <entry> <organizer moodCode="EVN" classCode="BATTERY"> < templateId root="11.30.840.1.409106.08.03.22.4.1" /> <id nullFlavor="NA" /> <code codeSystem="local" code="GFR" displayName="eGFR" /> < statusCode code="completed" /> <component> <observation moodCode= "EVN" classCode="OBS"> <templateId root="16.840.1.772476.08.03.22.4.2 " /> <id nullFlavor="NA" /> <code codeSystem="local" code="GFR " displayName="eGFR" /> <statusCode code="completed" /> < effectiveTime value="477969076363" /> <value unit="mL/min" xsi:type="PQ " value=">60" /> <referenceRange> <observationRange> <text>>60</text> </observationRange> </ referenceRange> </observation> </component> </organizer> </entry > <entry> <organizer moodCode="EVN" classCode="BATTERY"> <templateId root="11.30.840.1.635216.08.03.22.4.1" /> <id nullFlavor="NA" /> <code codeSystem="local" code="ACETM" displayName="Acetaminophen" /> <statusCode code="completed" /> <component> <observation moodCode="EVN" classCode="OBS"> <templateId root="11.30.840.1.375157.08.03.22.4.2" /> <id nullFlavor="NA" /> <code codeSystem="local" code="ACETM" displayName="Acetaminophen" /> <statusCode code="completed" /> <effectiveTime value="059239938682" /> <value unit="mcg/mL" xsi:type= "PQ" value="<10" /> <referenceRange> <observationRange> <text>10-30</text> </observationRange> </ referenceRange> </observation> </component> </organizer> </entry > <entry> <organizer moodCode="EVN" classCode="BATTERY"> <templateId root="16.840.1.660975.10..4.1" /> <id nullFlavor="NA" /> <code codeSystem="local" code="SALIC" displayName="Salicylate" /> <statusCode code="completed" /> <component> <observation moodCode="EVN" classCode="OBS"> <templateId root="840.1.205216...4.2" /> <id nullFlavor="NA" /> <code codeSystem="local" code="SALIC" displayName="Salicylate" /> <statusCode code="completed" /> < effectiveTime value="451528519284" /> <value unit="mg/dL" xsi:type="PQ " value="<4" /> <referenceRange> <observationRange> <text>0-30</text> </observationRange> </ referenceRange> </observation> </component> </organizer> </entry > <entry> <organizer moodCode="EVN" classCode="BATTERY"> <templateId root="11.30.840.1.350545.08.03.22.4.1" /> <id nullFlavor="NA" /> <code codeSystem="local" code="TSHR" displayName="TSH with Reflex Free T4" /> < statusCode code="completed" /> <component> <observation moodCode= "EVN" classCode="OBS"> <templateId root="11.30.840.1.297815.08.03.22.4.2 " /> <id nullFlavor="NA" /> <code codeSystem="local" code= "TSHR" displayName="TSH with Reflex Free T4" /> <statusCode code= "completed" /> <effectiveTime value="157903185803" /> <value unit="uIU/mL" xsi:type="PQ" value="0.55" /> <referenceRange> <observationRange> <text>0.35-4.94</text> </ observationRange> </referenceRange> </observation> </ component> </organizer> </entry> <entry> <organizer moodCode="EVN" classCode="BATTERY"> <templateId root="216.840.1.222999.10..22.4.1" /> <id nullFlavor="NA" /> <code codeSystem="local" code="CPK" displayName ="Creatine Kinase (CPK)" /> <statusCode code="completed" /> <component > <observation moodCode="EVN" classCode="OBS"> <templateId root= "216.840.1.627086.10..22.4.2" /> <id nullFlavor="NA" /> < code codeSystem="local" code="CPK" displayName="Creatine Kinase (CPK)" /> <statusCode code="completed" /> <effectiveTime value="089340327986 " /> <value unit="U/L" xsi:type="PQ" value="74" /> < referenceRange> <observationRange> <text>38-234</text> </observationRange> </referenceRange> </observation> </component> </organizer> </entry> <entry> <organizer moodCode= "EVN" classCode="BATTERY"> <templateId root="216.840.1.050507.10..22.4.1 " /> <id nullFlavor="NA" /> <code codeSystem="local" code="HEP4" displayName="Hepatitis Panel" /> <statusCode code="completed" /> < component> <observation moodCode="EVN" classCode="OBS"> < templateId root="840.1.563789.10.4.2" /> <id nullFlavor="NA " /> <code codeSystem="local" code="HAABM" displayName="Hepatitis A Antibody IGM" /> <statusCode code="completed" /> < effectiveTime value="350695553748" /> <value unit="" xsi:type="PQ" value="Negative" /> <referenceRange> <observationRange> <text /> </observationRange> </referenceRange> </observation> </component> <component> <observation moodCode="EVN" classCode="OBS"> <templateId root= "840.1.308991.08.03.22.4.2" /> <id nullFlavor="NA" /> < code codeSystem="local" code="HBSAG" displayName="Hepatitis B Surface Antigen" / > <statusCode code="completed" /> <effectiveTime value= "909779869468" /> <value unit="" xsi:type="PQ" value="Negative" /> <referenceRange> <observationRange> <text /> </observationRange> </referenceRange> </observation> </component> </organizer> </entry> <entry> <organizer moodCode="EVN" classCode="BATTERY"> <templateId root="840.1.663728.08.03.22.4.1" /> <id nullFlavor="NA" /> <code codeSystem="local" code="PREGN" displayName=" Screen, Urine NPT" /> <statusCode code="completed" / > <component> <observation moodCode="EVN" classCode="OBS"> <templateId root="11.30.840.1.656999.08.03.22.4.2" /> <id nullFlavor="NA " /> <code codeSystem="local" code="PREGN" displayName=" Screen, Urine NPT" /> <statusCode code="completed" /> < effectiveTime value="283469500206" /> <value unit="NA" xsi:type="PQ" value="Negative" /> <referenceRange> <observationRange> <text /> </observationRange> </referenceRange> </observation> </component> </organizer> </entry> <entry> < organizer moodCode="EVN" classCode="BATTERY"> <templateId root= "2.16.840.1.378222.10...4.1" /> <id nullFlavor="NA" /> <code codeSystem="local" code="UA" displayName="Urinalysis with reflex microscopic" / > <statusCode code="completed" /> <component> <observation moodCode="EVN" classCode="OBS"> <templateId root= "2.16.840.1.611326.10...4.2" /> <id nullFlavor="NA" /> < code codeSystem="local" code="UAPP" displayName="Appearance" /> < statusCode code="completed" /> <effectiveTime value="359133360487" /> <value unit="NA" xsi:type="PQ" value="Sl Cloudy" /> < referenceRange> <observationRange> <text /> < /observationRange> </referenceRange> </observation> </ component> <component> <observation moodCode="EVN" classCode="OBS"> <templateId root="2.16.840.1.661172.10..4.2" /> <id nullFlavor="NA" /> <code codeSystem="local" code="UBIL" displayName= "Bilirubin" /> <statusCode code="completed" /> <effectiveTime value="962907735174" /> <value unit="NA" xsi:type="PQ" value="Negative " /> <referenceRange> <observationRange> <text> Negative</text> </observationRange> </referenceRange> </observation> </component> <component> <observation moodCode ="EVN" classCode="OBS"> <templateId root= "11.30.840.1.455540.10.4.2" /> <id nullFlavor="NA" /> < code codeSystem="local" code="UBLD" displayName="Blood" /> <statusCode code="completed" /> <effectiveTime value="498823429119" /> < value unit="NA" xsi:type="PQ" value="Negative" /> <referenceRange> <observationRange> <text>Negative</text> </ observationRange> </referenceRange> </observation> </ component> <component> <observation moodCode="EVN" classCode="OBS"> <templateId root="840.1.973551.08.03.22.4.2" /> <id nullFlavor="NA" /> <code codeSystem="local" code="UCOLR" displayName= "Color" /> <statusCode code="completed" /> <effectiveTime value="882077776156" /> <value unit="NA" xsi:type="PQ" value="Yellow" / > <referenceRange> <observationRange> <text /> </observationRange> </referenceRange> </observation > </component> <component> <observation moodCode="EVN" classCode="OBS"> <templateId root="11.30.840.1.380749.08.03.22.4.2" /> <id nullFlavor="NA" /> <code codeSystem="local" code="UGLU" displayName="Glucose, Urine" /> <statusCode code="completed" /> <effectiveTime value="808560416737" /> <value unit="" xsi:type="PQ" value="Negative" /> <referenceRange> <observationRange> <text>Negative</text> </observationRange> </ referenceRange> </observation> </component> <component> <observation moodCode="EVN" classCode="OBS"> <templateId root= "11.30.840.1.393717.08.03.22.4.2" /> <id nullFlavor="NA" /> < code codeSystem="local" code="UKET" displayName="Ketones" /> < statusCode code="completed" /> <effectiveTime value="861898559546" /> <value unit="" xsi:type="PQ" value="Negative" /> < referenceRange> <observationRange> <text>Negative</text > </observationRange> </referenceRange> </observation > </component> <component> <observation moodCode="EVN" classCode="OBS"> <templateId root="11.30.840.1.928401.08.03.22.4.2" /> <id nullFlavor="NA" /> <code codeSystem="local" code="ULEU" displayName="Leukocyte Esterase" /> <statusCode code="completed" /> <effectiveTime value="423595674419" /> <value unit="NA" xsi:type ="PQ" value="Trace" /> <interpretationCode codeSystem="local" code="*" /> <referenceRange> <observationRange> <text> Negative</text> </observationRange> </referenceRange> </observation> </component> <component> <observation moodCode ="EVN" classCode="OBS"> <templateId root= "11.30.840.1.356126.08.03.22.4.2" /> <id nullFlavor="NA" /> < code codeSystem="local" code="UNIT" displayName="Nitrites" /> < statusCode code="completed" /> <effectiveTime value="893156693828" /> <value unit="NA" xsi:type="PQ" value="Negative" /> < referenceRange> <observationRange> <text>Negative</text > </observationRange> </referenceRange> </observation > </component> <component> <observation moodCode="EVN" classCode="OBS"> <templateId root="11.30.840.1.428196.10.22.4.2" /> <id nullFlavor="NA" /> <code codeSystem="local" code="UPH" displayName="pH" /> <statusCode code="completed" /> < effectiveTime value="470403321474" /> <value unit="NA" xsi:type="PQ" value="6.0" /> <referenceRange> <observationRange> <text>5.0-8.0</text> </observationRange> </ referenceRange> </observation> </component> <component> <observation moodCode="EVN" classCode="OBS"> <templateId root= "11.30.840.1.183565.22.4.2" /> <id nullFlavor="NA" /> < code codeSystem="local" code="UPRO" displayName="Protein" /> < statusCode code="completed" /> <effectiveTime value="727159589776" /> <value unit="NA" xsi:type="PQ" value="Negative" /> < referenceRange> <observationRange> <text>Negative</text > </observationRange> </referenceRange> </observation > </component> <component> <observation moodCode="EVN" classCode="OBS"> <templateId root="11.30.840.1.345954.08.03.22.4.2" /> <id nullFlavor="NA" /> <code codeSystem="local" code="USPG" displayName="Specific Homer" /> <statusCode code="completed" /> <effectiveTime value="153902317478" /> <value unit="NA" xsi:type= "PQ" value="1.020" /> <referenceRange> <observationRange> <text>1.003-1.030</text> </observationRange> </ referenceRange> </observation> </component> <component> <observation moodCode="EVN" classCode="OBS"> <templateId root= "2.16.840.1.699822.08.03.22.4.2" /> <id nullFlavor="NA" /> < code codeSystem="local" code="UTYP" displayName="UA Collection type" /> <statusCode code="completed" /> <effectiveTime value="118474284557" / > <value unit="NA" xsi:type="PQ" value="Voided" /> < referenceRange> <observationRange> <text /> < /observationRange> </referenceRange> </observation> </ component> <component> <observation moodCode="EVN" classCode="OBS"> <templateId root="2.16.840.1.996356...4.2" /> <id nullFlavor="NA" /> <code codeSystem="local" code="UURO" displayName= "Urobilinogen" /> <statusCode code="completed" /> < effectiveTime value="840832296237" /> <value unit="mg/dL" xsi:type="PQ " value="Negative" /> <referenceRange> <observationRange> <text><1.0</text> </observationRange> </ referenceRange> </observation> </component> </organizer> </entry > <entry> <organizer moodCode="EVN" classCode="BATTERY"> <templateId root="840.1.484302.10..4.1" /> <id nullFlavor="NA" /> <code codeSystem="local" code="UMIC" displayName="Urine Microscopic" /> < statusCode code="completed" /> <component> <observation moodCode= "EVN" classCode="OBS"> <templateId root="840.1.534052.08.03.22.4.2 " /> <id nullFlavor="NA" /> <code codeSystem="local" code= "UBAC" displayName="Bacteria" /> <statusCode code="completed" /> <effectiveTime value="507670530226" /> <value unit="NA" xsi:type= "PQ" value="Moderate" /> <interpretationCode codeSystem="local" code="* " /> <referenceRange> <observationRange> <text /> </observationRange> </referenceRange> </ observation> </component> <component> <observation moodCode= "EVN" classCode="OBS"> <templateId root="840.1.150535.08.03.22.4.2 " /> <id nullFlavor="NA" /> <code codeSystem="local" code= "UEPI" displayName="Epithelial Cells" /> <statusCode code="completed" / > <effectiveTime value="799310321739" /> <value unit="/HPF" xsi:type="PQ" value="10" /> <referenceRange> < observationRange> <text /> </observationRange> </referenceRange> </observation> </component> <component> <observation moodCode="EVN" classCode="OBS"> <templateId root= "840.1.831806.08.03.22.4.2" /> <id nullFlavor="NA" /> < code codeSystem="local" code="URBC" displayName="RBC, Urine" /> < statusCode code="completed" /> <effectiveTime value="116335328185" /> <value unit="/HPF" xsi:type="PQ" value="0" /> <referenceRange > <observationRange> <text>0-2</text> </ observationRange> </referenceRange> </observation> </ component> <component> <observation moodCode="EVN" classCode="OBS"> <templateId root="2.16.840.1.938871.10..22.4.2" /> <id nullFlavor="NA" /> <code codeSystem="local" code="UMUC" displayName= "Urine Mucus" /> <statusCode code="completed" /> < effectiveTime value="744407263839" /> <value unit="NA" xsi:type="PQ" value="Present" /> <referenceRange> <observationRange> <text /> </observationRange> </referenceRange> </observation> </component> <component> <observation moodCode="EVN" classCode="OBS"> <templateId root= "2.16.840.1.644132.10..22.4.2" /> <id nullFlavor="NA" /> < code codeSystem="local" code="UWBC" displayName="WBC, Urine" /> < statusCode code="completed" /> <effectiveTime value="527683331088" /> <value unit="/HPF" xsi:type="PQ" value="2" /> <referenceRange > <observationRange> <text>0-4</text> </ observationRange> </referenceRange> </observation> </ component> </organizer> </entry> <entry> <organizer moodCode="EVN" classCode="BATTERY"> <templateId root="16.840.1.731233...4.1" /> <id nullFlavor="NA" /> <code codeSystem="local" code="CBCWD" displayName="CBC With Platelet and Differential" /> <statusCode code= "completed" /> <component> <observation moodCode="EVN" classCode= "OBS"> <templateId root="11.30.840.1.321004.08.03.224.2" /> < id nullFlavor="NA" /> <code codeSystem="local" code="ABASR" displayName ="Absolute Basophils" /> <statusCode code="completed" /> < effectiveTime value="084789140405" /> <value unit="10*3/uL" xsi:type= "PQ" value="0.03" /> <referenceRange> <observationRange> <text>0.00-0.20</text> </observationRange> </ referenceRange> </observation> </component> <component> <observation moodCode="EVN" classCode="OBS"> <templateId root= "11.30.840.1.545064.08.03.224.2" /> <id nullFlavor="NA" /> < code codeSystem="local" code="AEOSR" displayName="Absolute Eosinophils" /> <statusCode code="completed" /> <effectiveTime value="945041669251 " /> <value unit="10*3/uL" xsi:type="PQ" value="0.26" /> < referenceRange> <observationRange> <text>0.00-0.50</text > </observationRange> </referenceRange> </observation > </component> <component> <observation moodCode="EVN" classCode="OBS"> <templateId root="11.30.840.1.552441.08.03.22.4.2" /> <id nullFlavor="NA" /> <code codeSystem="local" code="ALYMR" displayName="Absolute Lymphocytes" /> <statusCode code="completed" /> <effectiveTime value="217164627343" /> <value unit="10*3/uL" xsi:type="PQ" value="1.96" /> <referenceRange> < observationRange> <text>0.80-3.30</text> </ observationRange> </referenceRange> </observation> </ component> <component> <observation moodCode="EVN" classCode="OBS"> <templateId root="2.16.840.1.027922.10...4.2" /> <id nullFlavor="NA" /> <code codeSystem="local" code="AMONR" displayName= "Absolute Monocytes" /> <statusCode code="completed" /> < effectiveTime value="596578612650" /> <value unit="10*3/uL" xsi:type= "PQ" value="0.43" /> <referenceRange> <observationRange> <text>0.30-1.00</text> </observationRange> </ referenceRange> </observation> </component> <component> <observation moodCode="EVN" classCode="OBS"> <templateId root= "2.16.840.1.312546....4.2" /> <id nullFlavor="NA" /> < code codeSystem="local" code="ASEGR" displayName="Absolute Neutrophils" /> <statusCode code="completed" /> <effectiveTime value="676249554200 " /> <value unit="10*3/uL" xsi:type="PQ" value="3.42" /> < referenceRange> <observationRange> <text>1.90-7.00</text > </observationRange> </referenceRange> </observation > </component> <component> <observation moodCode="EVN" classCode="OBS"> <templateId root="216.840.1.291040.10.22.4.2" /> <id nullFlavor="NA" /> <code codeSystem="local" code="BASOR" displayName="Basophils" /> <statusCode code="completed" /> < effectiveTime value="" /> <value unit="%" xsi:type="PQ " value="1" /> <referenceRange> <observationRange> <text>0-2</text> </observationRange> </referenceRange> </observation> </component> <component> <observation moodCode="EVN" classCode="OBS"> <templateId root= "16.840.1.842568.10..4.2" /> <id nullFlavor="NA" /> < code codeSystem="local" code="EOSR" displayName="Eosinophils" /> < statusCode code="completed" /> <effectiveTime value="" /> <value unit="%" xsi:type="PQ" value="4" /> <referenceRange > <observationRange> <text>0-4</text> </ observationRange> </referenceRange> </observation> </ component> <component> <observation moodCode="EVN" classCode="OBS"> <templateId root="16.840.1.241976.10.2022.4.2" /> <id nullFlavor="NA" /> <code codeSystem="local" code="HCT" displayName="HCT " /> <statusCode code="completed" /> <effectiveTime value= "949049618966" /> <value unit="%" xsi:type="PQ" value="36.8" /> <interpretationCode codeSystem="local" code="*" /> < referenceRange> <observationRange> <text>37.0-47.0</text > </observationRange> </referenceRange> </observation > </component> <component> <observation moodCode="EVN" classCode="OBS"> <templateId root="216.840.1.368318.10.20.22.4.2" /> <id nullFlavor="NA" /> <code codeSystem="local" code="HGB" displayName="HGB" /> <statusCode code="completed" /> < effectiveTime value="247689568402" /> <value unit="g/dL" xsi:type="PQ" value="11.7" /> <interpretationCode codeSystem="local" code="*" /> <referenceRange> <observationRange> <text>12.0- 16.0</text> </observationRange> </referenceRange> </ observation> </component> <component> <observation moodCode= "EVN" classCode="OBS"> <templateId root="11.30.840.1.109772.10...4.2 " /> <id nullFlavor="NA" /> <code codeSystem="local" code= "IMGA" displayName="Immature Granulocytes" /> <statusCode code= "completed" /> <effectiveTime value="021065068132" /> <value unit="%" xsi:type="PQ" value="0.5" /> <referenceRange> < observationRange> <text>0.0-1.0</text> </ observationRange> </referenceRange> </observation> </ component> <component> <observation moodCode="EVN" classCode="OBS"> <templateId root="216.840.1.654170.10.20.22.4.2" /> <id nullFlavor="NA" /> <code codeSystem="local" code="LYMPR" displayName= "Lymphocytes" /> <statusCode code="completed" /> < effectiveTime value="347276796701" /> <value unit="%" xsi:type="PQ " value="32" /> <referenceRange> <observationRange> <text>20-46</text> </observationRange> </ referenceRange> </observation> </component> <component> <observation moodCode="EVN" classCode="OBS"> <templateId root= "216.840.1.199990.10.20.22.4.2" /> <id nullFlavor="NA" /> < code codeSystem="local" code="MCH" displayName="MCH" /> <statusCode code="completed" /> <effectiveTime value="219602178344" /> < value unit="pg" xsi:type="PQ" value="29.9" /> <referenceRange> <observationRange> <text>27.0-32.0</text> </ observationRange> </referenceRange> </observation> </ component> <component> <observation moodCode="EVN" classCode="OBS"> <templateId root="216.840.1.064316.10.20.22.4.2" /> <id nullFlavor="NA" /> <code codeSystem="local" code="MCHC" displayName= "MCHC" /> <statusCode code="completed" /> <effectiveTime value ="321672296534" /> <value unit="g/dL" xsi:type="PQ" value="31.8" /> <interpretationCode codeSystem="local" code="*" /> < referenceRange> <observationRange> <text>32.0-36.0</text > </observationRange> </referenceRange> </observation > </component> <component> <observation moodCode="EVN" classCode="OBS"> <templateId root="16.840.1.031794.10.20.22.4.2" /> <id nullFlavor="NA" /> <code codeSystem="local" code="MCV" displayName="MCV" /> <statusCode code="completed" /> < effectiveTime value="861426504243" /> <value unit="fL" xsi:type="PQ" value="94.1" /> <referenceRange> <observationRange> <text>82.0-99.0</text> </observationRange> </ referenceRange> </observation> </component> <component> <observation moodCode="EVN" classCode="OBS"> <templateId root= "11.30.840.1.791778.10.22.4.2" /> <id nullFlavor="NA" /> < code codeSystem="local" code="MONOR" displayName="Monocytes" /> < statusCode code="completed" /> <effectiveTime value="931142169628" /> <value unit="%" xsi:type="PQ" value="7" /> <referenceRange > <observationRange> <text>4-11</text> </ observationRange> </referenceRange> </observation> </ component> <component> <observation moodCode="EVN" classCode="OBS"> <templateId root="11.30.840.1.521468.10.20.22.4.2" /> <id nullFlavor="NA" /> <code codeSystem="local" code="MPV" displayName="MPV " /> <statusCode code="completed" /> <effectiveTime value= "117141840114" /> <value unit="fL" xsi:type="PQ" value="9.4" /> <referenceRange> <observationRange> <text>9.4-12.4</ text> </observationRange> </referenceRange> </ observation> </component> <component> <observation moodCode= "EVN" classCode="OBS"> <templateId root="216.840.1.979284.10.4.2 " /> <id nullFlavor="NA" /> <code codeSystem="local" code= "SEGR" displayName="Neutrophils" /> <statusCode code="completed" /> <effectiveTime value="" /> <value unit="%" xsi: type="PQ" value="56" /> <referenceRange> <observationRange> <text>51-75</text> </observationRange> </ referenceRange> </observation> </component> <component> <observation moodCode="EVN" classCode="OBS"> <templateId root= "11.30.840.1.068278.08.03.22.4.2" /> <id nullFlavor="NA" /> < code codeSystem="local" code="NRBCA" displayName="Nucleated RBC Automated" /> <statusCode code="completed" /> <effectiveTime value= "" /> <value unit="/100WBC" xsi:type="PQ" value="0.0" /> <referenceRange> <observationRange> <text /> </observationRange> </referenceRange> </observation> </component> <component> <observation moodCode="EVN" classCode= "OBS"> <templateId root="16.840.1.673413.10.22.4.2" /> < id nullFlavor="NA" /> <code codeSystem="local" code="PLT" displayName= "Platelet Count" /> <statusCode code="completed" /> < effectiveTime value="" /> <value unit="K/uL" xsi:type="PQ" value="290" /> <referenceRange> <observationRange> <text>150-400</text> </observationRange> </ referenceRange> </observation> </component> <component> <observation moodCode="EVN" classCode="OBS"> <templateId root= "11.30.840.1.901996.10.20.22.4.2" /> <id nullFlavor="NA" /> < code codeSystem="local" code="RBC" displayName="RBC" /> <statusCode code="completed" /> <effectiveTime value="697363070105" /> < value unit="10*6/uL" xsi:type="PQ" value="3.91" /> <interpretationCode codeSystem="local" code="*" /> <referenceRange> < observationRange> <text>4.00-5.20</text> </ observationRange> </referenceRange> </observation> </ component> <component> <observation moodCode="EVN" classCode="OBS"> <templateId root="840.1.392988...4.2" /> <id nullFlavor="NA" /> <code codeSystem="local" code="RDW" displayName="RDW " /> <statusCode code="completed" /> <effectiveTime value= "700503464907" /> <value unit="%" xsi:type="PQ" value="13.3" /> <referenceRange> <observationRange> <text>11.5- 14.5</text> </observationRange> </referenceRange> </ observation> </component> <component> <observation moodCode= "EVN" classCode="OBS"> <templateId root="11.30.840.1.887136.10.20.22.4.2 " /> <id nullFlavor="NA" /> <code codeSystem="local" code= "WBCIR" displayName="WBC" /> <statusCode code="completed" /> < effectiveTime value="487048730023" /> <value unit="K/uL" xsi:type="PQ" value="6.1" /> <referenceRange> <observationRange> <text>4.8-10.8</text> </observationRange> </ referenceRange> </observation> </component> </organizer> </entry > <entry> <organizer moodCode="EVN" classCode="BATTERY"> <templateId root="216.840.1.629757.10...4.1" /> <id nullFlavor="NA" /> <code codeSystem="local" code="BMP" displayName="Basic Metabolic Panel (BMP)" /> <statusCode code="completed" /> <component> <observation moodCode= "EVN" classCode="OBS"> <templateId root="216.840.1.007256.10...4.2 " /> <id nullFlavor="NA" /> <code codeSystem="local" code= "AGAP" displayName="Anion Gap" /> <statusCode code="completed" /> <effectiveTime value="872404552028" /> <value unit="mEq/L" xsi: type="PQ" value="8" /> <referenceRange> <observationRange> <text>3-20</text> </observationRange> </ referenceRange> </observation> </component> <component> <observation moodCode="EVN" classCode="OBS"> <templateId root= "216.840.1.474254.10.22.4.2" /> <id nullFlavor="NA" /> < code codeSystem="local" code="BUN" displayName="BUN" /> <statusCode code="completed" /> <effectiveTime value="223178002003" /> < value unit="mg/dL" xsi:type="PQ" value="12" /> <referenceRange> <observationRange> <text>4-20</text> </ observationRange> </referenceRange> </observation> </ component> <component> <observation moodCode="EVN" classCode="OBS"> <templateId root="16.840.1.279761.22.4.2" /> <id nullFlavor="NA" /> <code codeSystem="local" code="CA" displayName= "Calcium" /> <statusCode code="completed" /> <effectiveTime value="399571831309" /> <value unit="mg/dL" xsi:type="PQ" value="8.3" / > <interpretationCode codeSystem="local" code="*" /> < referenceRange> <observationRange> <text>8.6-10.0</text > </observationRange> </referenceRange> </observation > </component> <component> <observation moodCode="EVN" classCode="OBS"> <templateId root="11.30.840.1.162549.08.03.22.4.2" /> <id nullFlavor="NA" /> <code codeSystem="local" code="CL" displayName="Chloride" /> <statusCode code="completed" /> < effectiveTime value="637183528349" /> <value unit="mEq/L" xsi:type="PQ " value="104" /> <referenceRange> <observationRange> <text>99-109</text> </observationRange> </ referenceRange> </observation> </component> <component> <observation moodCode="EVN" classCode="OBS"> <templateId root= "16.840.1.417495.22.4.2" /> <id nullFlavor="NA" /> < code codeSystem="local" code="CO2" displayName="CO2" /> <statusCode code="completed" /> <effectiveTime value="178516758768" /> < value unit="mEq/L" xsi:type="PQ" value="26" /> <referenceRange> <observationRange> <text>22-32</text> </ observationRange> </referenceRange> </observation> </ component> <component> <observation moodCode="EVN" classCode="OBS"> <templateId root="2.16.840.1.697090.10...4.2" /> <id nullFlavor="NA" /> <code codeSystem="local" code="CREAT" displayName= "Creatinine" /> <statusCode code="completed" /> < effectiveTime value="114917524378" /> <value unit="mg/dL" xsi:type="PQ " value="0.58" /> <referenceRange> <observationRange> <text>0.44-1.03</text> </observationRange> </ referenceRange> </observation> </component> <component> <observation moodCode="EVN" classCode="OBS"> <templateId root= "2.16.840.1.151961.10...4.2" /> <id nullFlavor="NA" /> < code codeSystem="local" code="GLU" displayName="Glucose" /> < statusCode code="completed" /> <effectiveTime value="976017660118" /> <value unit="mg/dL" xsi:type="PQ" value="67" /> < interpretationCode codeSystem="local" code="*" /> <referenceRange> <observationRange> <text>70-100</text> </ observationRange> </referenceRange> </observation> </ component> <component> <observation moodCode="EVN" classCode="OBS"> <templateId root="840.1.518113.10.22.4.2" /> <id nullFlavor="NA" /> <code codeSystem="local" code="K" displayName= "Potassium" /> <statusCode code="completed" /> <effectiveTime value="260962904406" /> <value unit="mEq/L" xsi:type="PQ" value="3.9" / > <referenceRange> <observationRange> <text>3.6 -5.1</text> </observationRange> </referenceRange> </ observation> </component> <component> <observation moodCode= "EVN" classCode="OBS"> <templateId root="840.1.382512.22.4.2 " /> <id nullFlavor="NA" /> <code codeSystem="local" code="NA " displayName="Sodium" /> <statusCode code="completed" /> < effectiveTime value="581954024851" /> <value unit="mEq/L" xsi:type="PQ " value="138" /> <referenceRange> <observationRange> <text>136-144</text> </observationRange> </ referenceRange> </observation> </component> </organizer> </entry > <entry> <organizer moodCode="EVN" classCode="BATTERY"> <templateId root="840.1.889341.1022.4.1" /> <id nullFlavor="NA" /> <code codeSystem="local" code="GFR" displayName="eGFR" /> <statusCode code= "completed" /> <component> <observation moodCode="EVN" classCode= "OBS"> <templateId root="840.1.620970.1022.4.2" /> < id nullFlavor="NA" /> <code codeSystem="local" code="GFR" displayName= "eGFR" /> <statusCode code="completed" /> <effectiveTime value ="945358589791" /> <value unit="mL/min" xsi:type="PQ" value=">60" / > <referenceRange> <observationRange> <text>&gt ;60</text> </observationRange> </referenceRange> </ observation> </component> </organizer> </entry> <entry> <organizer moodCode="EVN" classCode="BATTERY"> <templateId root= "16.840.1.775572.10...4.1" /> <id nullFlavor="NA" /> <code codeSystem="local" code="GLUN" displayName="Glucose NPT" /> <statusCode code="completed" /> <component> <observation moodCode="EVN" classCode="OBS"> <templateId root="16.840.1.242783.10..22.4.2" /> <id nullFlavor="NA" /> <code codeSystem="local" code="GLUN" displayName="Glucose NPT" /> <statusCode code="completed" /> <effectiveTime value="255407974564" /> <value unit="mg/dL" xsi:type="PQ " value="99" /> <referenceRange> <observationRange> <text>70-100</text> </observationRange> </ referenceRange> </observation> </component> </organizer> </entry > <entry> <organizer moodCode="EVN" classCode="BATTERY"> <templateId root="16.840.1.274993.10.20.22.4.1" /> <id nullFlavor="NA" /> <code codeSystem="local" code="93018-5" displayName="Complete blood count (CBC) with automated white blood cell (WBC) differential" /> <statusCode code= "completed" /> <component> <observation moodCode="EVN" classCode= "OBS"> <templateId root="216.840.1.807644.10.20.22.4.2" /> < id nullFlavor="NA" /> <code codeSystem="local" code="6690-2" displayName="Blood leukocytes automated count (number/volume)" /> < statusCode code="completed" /> <effectiveTime value="911048891877" /> <value unit="10*3/uL" xsi:type="PQ" value="9.1" /> < referenceRange> <observationRange> <text>4.3-11.0</text > </observationRange> </referenceRange> </observation > </component> <component> <observation moodCode="EVN" classCode="OBS"> <templateId root="16.840.1.207001.10.20.22.4.2" /> <id nullFlavor="NA" /> <code codeSystem="local" code="789-8" displayName="Blood erythrocytes automated count (number/volume)" /> < statusCode code="completed" /> <effectiveTime value="507921040194" /> <value unit="10*6/uL" xsi:type="PQ" value="4.56" /> < referenceRange> <observationRange> <text>4.35-5.85</text > </observationRange> </referenceRange> </observation > </component> <component> <observation moodCode="EVN" classCode="OBS"> <templateId root="216.840.1.676179.10.20.22.4.2" /> <id nullFlavor="NA" /> <code codeSystem="local" code="99747-6 " displayName="Venous blood hemoglobin measurement (mass/volume)" /> < statusCode code="completed" /> <effectiveTime value="571920798291" /> <value unit="g/dL" xsi:type="PQ" value="14.4" /> < referenceRange> <observationRange> <text>11.5-16.0</text > </observationRange> </referenceRange> </observation > </component> <component> <observation moodCode="EVN" classCode="OBS"> <templateId root="2.16.840.1.865718.10.20.22.4.2" /> <id nullFlavor="NA" /> <code codeSystem="local" code="83392-8 " displayName="Blood hematocrit (volume fraction)" /> <statusCode code= "completed" /> <effectiveTime value="614315089334" /> <value unit="%" xsi:type="PQ" value="40" /> <referenceRange> < observationRange> <text>35-52</text> </observationRange > </referenceRange> </observation> </component> < component> <observation moodCode="EVN" classCode="OBS"> < templateId root="2.16.840.1.501126.10.20.22.4.2" /> <id nullFlavor="NA " /> <code codeSystem="local" code="787-2" displayName="Automated erythrocyte mean corpuscular volume" /> <statusCode code="completed" / > <effectiveTime value="589672738444" /> <value unit="[fo_us] " xsi:type="PQ" value="88" /> <referenceRange> < observationRange> <text>80-99</text> </observationRange > </referenceRange> </observation> </component> < component> <observation moodCode="EVN" classCode="OBS"> < templateId root="2.16.840.1.615628.10.20.22.4.2" /> <id nullFlavor="NA " /> <code codeSystem="local" code="785-6" displayName="Automated erythrocyte mean corpuscular hemoglobin (mass per erythrocyte)" /> < statusCode code="completed" /> <effectiveTime value="211256040204" /> <value unit="pg" xsi:type="PQ" value="32" /> <referenceRange> <observationRange> <text>25-34</text> </ observationRange> </referenceRange> </observation> </ component> <component> <observation moodCode="EVN" classCode="OBS"> <templateId root="216.840.1.037909.10.20.22.4.2" /> <id nullFlavor="NA" /> <code codeSystem="local" code="786-4" displayName= "Automated erythrocyte mean corpuscular hemoglobin concentration measurement ( mass/volume)" /> <statusCode code="completed" /> < effectiveTime value="963622035697" /> <value unit="g/dL" xsi:type="PQ" value="36" /> <referenceRange> <observationRange> <text>32-36</text> </observationRange> </referenceRange > </observation> </component> <component> <observation moodCode="EVN" classCode="OBS"> <templateId root= ".16.840.1.593239.10.20.22.4.2" /> <id nullFlavor="NA" /> < code codeSystem="local" code="788-0" displayName="Automated erythrocyte distribution width ratio" /> <statusCode code="completed" /> < effectiveTime value="953401301525" /> <value unit="%" xsi:type="PQ " value="14.4" /> <referenceRange> <observationRange> <text>10.0-14.5</text> </observationRange> </ referenceRange> </observation> </component> <component> <observation moodCode="EVN" classCode="OBS"> <templateId root= "216.840.1.738341.10.20.22.4.2" /> <id nullFlavor="NA" /> < code codeSystem="local" code="777-3" displayName="Automated blood platelet count (count/volume)" /> <statusCode code="completed" /> < effectiveTime value="088533175617" /> <value unit="10*3/uL" xsi:type= "PQ" value="279" /> <referenceRange> <observationRange> <text>130-400</text> </observationRange> </ referenceRange> </observation> </component> <component> <observation moodCode="EVN" classCode="OBS"> <templateId root= "16.840.1.789008.10.20.22.4.2" /> <id nullFlavor="NA" /> < code codeSystem="local" code="70739-2" displayName="Automated blood platelet mean volume measurement" /> <statusCode code="completed" /> < effectiveTime value="112621877191" /> <value unit="[foz_us]" xsi:type= "PQ" value="10.0" /> <referenceRange> <observationRange> <text>7.4-10.4</text> </observationRange> </ referenceRange> </observation> </component> <component> <observation moodCode="EVN" classCode="OBS"> <templateId root= "216.840.1.006658.10.20.22.4.2" /> <id nullFlavor="NA" /> < code codeSystem="local" code="770-8" displayName="Automated blood neutrophils/ 100 leukocytes" /> <statusCode code="completed" /> < effectiveTime value="953948639505" /> <value unit="%" xsi:type="PQ " value="58" /> <referenceRange> <observationRange> <text>42-75</text> </observationRange> </ referenceRange> </observation> </component> <component> <observation moodCode="EVN" classCode="OBS"> <templateId root= "2.16.840.1.106450.10.20.22.4.2" /> <id nullFlavor="NA" /> < code codeSystem="local" code="736-9" displayName="Automated blood lymphocytes/ 100 leukocytes" /> <statusCode code="completed" /> < effectiveTime value="702337010024" /> <value unit="%" xsi:type="PQ " value="27" /> <referenceRange> <observationRange> <text>12-44</text> </observationRange> </ referenceRange> </observation> </component> <component> <observation moodCode="EVN" classCode="OBS"> <templateId root= "216.840.1.482127.10.20.22.4.2" /> <id nullFlavor="NA" /> < code codeSystem="local" code="04619-0" displayName="Blood monocytes/100 leukocytes" /> <statusCode code="completed" /> <effectiveTime value="776923868965" /> <value unit="%" xsi:type="PQ" value="7" /> <referenceRange> <observationRange> <text>0-12 </text> </observationRange> </referenceRange> </ observation> </component> <component> <observation moodCode= "EVN" classCode="OBS"> <templateId root="840.1.589672.10.20.22.4.2 " /> <id nullFlavor="NA" /> <code codeSystem="local" code="713 -8" displayName="Automated blood eosinophils/100 leukocytes" /> < statusCode code="completed" /> <effectiveTime value="574451440234" /> <value unit="%" xsi:type="PQ" value="8" /> <referenceRange > <observationRange> <text>0-10</text> </ observationRange> </referenceRange> </observation> </ component> <component> <observation moodCode="EVN" classCode="OBS"> <templateId root="2.16.840.1.037688.10..22.4.2" /> <id nullFlavor="NA" /> <code codeSystem="local" code="706-2" displayName= "Automated blood basophils/100 leukocytes" /> <statusCode code= "completed" /> <effectiveTime value="673686978275" /> <value unit="%" xsi:type="PQ" value="1" /> <referenceRange> < observationRange> <text>0-10</text> </observationRange> </referenceRange> </observation> </component> < component> <observation moodCode="EVN" classCode="OBS"> < templateId root="2.16.840.1.334635.10.20.22.4.2" /> <id nullFlavor="NA " /> <code codeSystem="local" code="751-8" displayName="Blood neutrophils automated count (number/volume)" /> <statusCode code= "completed" /> <effectiveTime value="521425705572" /> <value unit="10*3" xsi:type="PQ" value="5.3" /> <referenceRange> < observationRange> <text>1.8-7.8</text> </ observationRange> </referenceRange> </observation> </ component> <component> <observation moodCode="EVN" classCode="OBS"> <templateId root="216.840.1.115545.10.20.22.4.2" /> <id nullFlavor="NA" /> <code codeSystem="local" code="731-0" displayName= "Blood lymphocytes automated count (number/volume)" /> <statusCode code ="completed" /> <effectiveTime value="197025740430" /> <value unit="10*3" xsi:type="PQ" value="2.4" /> <referenceRange> < observationRange> <text>1.0-4.0</text> </ observationRange> </referenceRange> </observation> </ component> <component> <observation moodCode="EVN" classCode="OBS"> <templateId root="16.840.1.189417.08.03.22.4.2" /> <id nullFlavor="NA" /> <code codeSystem="local" code="742-7" displayName= "Blood monocytes automated count (number/volume)" /> <statusCode code= "completed" /> <effectiveTime value="613159914256" /> <value unit="10*3" xsi:type="PQ" value="0.7" /> <referenceRange> < observationRange> <text>0.0-1.0</text> </ observationRange> </referenceRange> </observation> </ component> <component> <observation moodCode="EVN" classCode="OBS"> <templateId root="16.840.1.545626.10.20.22.4.2" /> <id nullFlavor="NA" /> <code codeSystem="local" code="711-2" displayName= "Automated eosinophil count" /> <statusCode code="completed" /> <effectiveTime value="199212025321" /> <value unit="10*3/uL" xsi: type="PQ" value="0.7" /> <interpretationCode codeSystem="local" code="* *" /> <referenceRange> <observationRange> <text >0.0-0.3</text> </observationRange> </referenceRange> </observation> </component> <component> <observation moodCode ="EVN" classCode="OBS"> <templateId root= "11.30.840.1.182957.1022.4.2" /> <id nullFlavor="NA" /> < code codeSystem="local" code="704-7" displayName="Automated blood basophil count (count/volume)" /> <statusCode code="completed" /> < effectiveTime value="358040211139" /> <value unit="10*3/uL" xsi:type= "PQ" value="0.1" /> <referenceRange> <observationRange> <text>0.0-0.1</text> </observationRange> </ referenceRange> </observation> </component> </organizer> </entry > <entry> <organizer moodCode="EVN" classCode="BATTERY"> <templateId root="11.30.840.1.991507.22.4.1" /> <id nullFlavor="NA" /> <code codeSystem="local" code="52033-9" displayName="Comprehensive metabolic panel" / > <statusCode code="completed" /> <component> <observation moodCode="EVN" classCode="OBS"> <templateId root= "11.30.840.1.203020.102022.4.2" /> <id nullFlavor="NA" /> < code codeSystem="local" code="2951-2" displayName="Serum or plasma sodium measurement (moles/volume)" /> <statusCode code="completed" /> <effectiveTime value="776335031444" /> <value unit="mmol/L" xsi:type= "PQ" value="139" /> <referenceRange> <observationRange> <text>135-145</text> </observationRange> </ referenceRange> </observation> </component> <component> <observation moodCode="EVN" classCode="OBS"> <templateId root= "2.16.840.1.498349.10.20.22.4.2" /> <id nullFlavor="NA" /> < code codeSystem="local" code="2823-3" displayName="Serum or plasma potassium measurement (moles/volume)" /> <statusCode code="completed" /> <effectiveTime value="589744842532" /> <value unit="mmol/L" xsi:type= "PQ" value="3.9" /> <referenceRange> <observationRange> <text>3.6-5.0</text> </observationRange> </ referenceRange> </observation> </component> <component> <observation moodCode="EVN" classCode="OBS"> <templateId root= "2.16.840.1.775466.10.20.22.4.2" /> <id nullFlavor="NA" /> < code codeSystem="local" code="2075-0" displayName="Serum or plasma chloride measurement (moles/volume)" /> <statusCode code="completed" /> <effectiveTime value="289339589212" /> <value unit="mmol/L" xsi:type= "PQ" value="108" /> <interpretationCode codeSystem="local" code="" / > <referenceRange> <observationRange> <text>98- 107</text> </observationRange> </referenceRange> </ observation> </component> <component> <observation moodCode= "EVN" classCode="OBS"> <templateId root="2.16.840.1.207056.10..22.4.2 " /> <id nullFlavor="NA" /> <code codeSystem="local" code= "2028-06" displayName="Carbon dioxide" /> <statusCode code="completed" / > <effectiveTime value="604986504122" /> <value unit="mmol/L" xsi:type="PQ" value="17" /> <interpretationCode codeSystem="local" code ="" /> <referenceRange> <observationRange> < text>21-32</text> </observationRange> </referenceRange> </observation> </component> <component> <observation moodCode="EVN" classCode="OBS"> <templateId root= "216.840.1.396445.10..4.2" /> <id nullFlavor="NA" /> < code codeSystem="local" code="30051-7" displayName="Serum or plasma anion gap determination (moles/volume)" /> <statusCode code="completed" /> <effectiveTime value="458227305717" /> <value unit="mmol/L" xsi: type="PQ" value="14" /> <referenceRange> <observationRange> <text>5-14</text> </observationRange> </ referenceRange> </observation> </component> <component> <observation moodCode="EVN" classCode="OBS"> <templateId root= "2.16.840.1.774316.10..22.4.2" /> <id nullFlavor="NA" /> < code codeSystem="local" code="3094-0" displayName="Serum or plasma urea nitrogen measurement (mass/volume)" /> <statusCode code="completed" /> <effectiveTime value="627982681781" /> <value unit="mg/dL" xsi:type="PQ" value="10" /> <referenceRange> < observationRange> <text>7-18</text> </observationRange> </referenceRange> </observation> </component> < component> <observation moodCode="EVN" classCode="OBS"> < templateId root="2.16.840.1.828971.10..22.4.2" /> <id nullFlavor="NA " /> <code codeSystem="local" code="2160-0" displayName="Serum or plasma creatinine measurement (mass/volume)" /> <statusCode code= "completed" /> <effectiveTime value="214698829550" /> <value unit="mg/dL" xsi:type="PQ" value="0.72" /> <referenceRange> <observationRange> <text>0.60-1.30</text> </ observationRange> </referenceRange> </observation> </ component> <component> <observation moodCode="EVN" classCode="OBS"> <templateId root="2.16.840.1.914469.10..22.4.2" /> <id nullFlavor="NA" /> <code codeSystem="local" code="3097-3" displayName= "Serum or plasma urea nitrogen/creatinine mass ratio" /> <statusCode code="completed" /> <effectiveTime value="417030423456" /> < value unit="" xsi:type="PQ" value="14" /> <referenceRange> < observationRange> <text>NRG</text> </observationRange> </referenceRange> </observation> </component> < component> <observation moodCode="EVN" classCode="OBS"> < templateId root="2.16.840.1.318612.10..22.4.2" /> <id nullFlavor="NA " /> <code codeSystem="local" code="29007-1" displayName="Serum or plasma creatinine measurement with calculation of estimated glomerular filtration rate" /> <statusCode code="completed" /> < effectiveTime value="875533539322" /> <value unit="" xsi:type="PQ" value=">" /> <referenceRange> <observationRange> <text>NRG</text> </observationRange> </referenceRange > </observation> </component> <component> <observation moodCode="EVN" classCode="OBS"> <templateId root= "2.16.840.1.466078.10.20.22.4.2" /> <id nullFlavor="NA" /> < code codeSystem="local" code="2345-7" displayName="Serum or plasma glucose measurement (mass/volume)" /> <statusCode code="completed" /> <effectiveTime value="457233805216" /> <value unit="mg/dL" xsi:type="PQ " value="68" /> <interpretationCode codeSystem="local" code="" /> <referenceRange> <observationRange> <text>70-105< /text> </observationRange> </referenceRange> </ observation> </component> <component> <observation moodCode= "EVN" classCode="OBS"> <templateId root="2.16.840.1.606810.10.20.22.4.2 " /> <id nullFlavor="NA" /> <code codeSystem="local" code= "26769-3" displayName="Serum or plasma calcium measurement (mass/volume)" /> <statusCode code="completed" /> <effectiveTime value= "630734274063" /> <value unit="mg/dL" xsi:type="PQ" value="9.3" /> <referenceRange> <observationRange> <text>8.5-10.1 </text> </observationRange> </referenceRange> </ observation> </component> <component> <observation moodCode= "EVN" classCode="OBS"> <templateId root="2.16.840.1.130478.10.20.22.4.2 " /> <id nullFlavor="NA" /> <code codeSystem="local" code= "1974-11" displayName="Serum or plasma total bilirubin measurement (mass/volume) " /> <statusCode code="completed" /> <effectiveTime value= "810888619398" /> <value unit="mg/dL" xsi:type="PQ" value="0.3" /> <referenceRange> <observationRange> <text>0.1-1.0< /text> </observationRange> </referenceRange> </ observation> </component> <component> <observation moodCode= "EVN" classCode="OBS"> <templateId root="16.840.1.921385.10...4.2 " /> <id nullFlavor="NA" /> <code codeSystem="local" code= "67686" displayName="Serum or plasma alkaline phosphatase measurement ( enzymatic activity/volume)" /> <statusCode code="completed" /> <effectiveTime value="695013549119" /> <value unit="U/L" xsi:type="PQ " value="74" /> <referenceRange> <observationRange> <text>40-136</text> </observationRange> </ referenceRange> </observation> </component> <component> <observation moodCode="EVN" classCode="OBS"> <templateId root= "216.840.1.992594.10.20.22.4.2" /> <id nullFlavor="NA" /> < code codeSystem="local" code="1920-05" displayName="Serum or plasma aspartate aminotransferase measurement (enzymatic activity/volume)" /> < statusCode code="completed" /> <effectiveTime value="727003857678" /> <value unit="U/L" xsi:type="PQ" value="14" /> <referenceRange > <observationRange> <text>5-34</text> </ observationRange> </referenceRange> </observation> </ component> <component> <observation moodCode="EVN" classCode="OBS"> <templateId root="2.16.840.1.047751.10.20.22.4.2" /> <id nullFlavor="NA" /> <code codeSystem="local" code="1742-6" displayName= "Serum or plasma alanine aminotransferase measurement (enzymatic activity/volume )" /> <statusCode code="completed" /> <effectiveTime value= "904363327450" /> <value unit="U/L" xsi:type="PQ" value="12" /> <referenceRange> <observationRange> <text>0-55</text > </observationRange> </referenceRange> </observation > </component> <component> <observation moodCode="EVN" classCode="OBS"> <templateId root="2.16.840.1.517218.10.20.22.4.2" /> <id nullFlavor="NA" /> <code codeSystem="local" code="2885-2" displayName="Serum or plasma protein measurement (mass/volume)" /> < statusCode code="completed" /> <effectiveTime value="748126272591" /> <value unit="g/dL" xsi:type="PQ" value="7.2" /> < referenceRange> <observationRange> <text>6.4-8.2</text> </observationRange> </referenceRange> </observation > </component> <component> <observation moodCode="EVN" classCode="OBS"> <templateId root="2.16.840.1.534361.10.20.22.4.2" /> <id nullFlavor="NA" /> <code codeSystem="local" code="1751-7" displayName="Serum or plasma albumin measurement (mass/volume)" /> < statusCode code="completed" /> <effectiveTime value="862024689317" /> <value unit="g/dL" xsi:type="PQ" value="4.3" /> < referenceRange> <observationRange> <text>3.2-4.5</text> </observationRange> </referenceRange> </observation > </component> </organizer> </entry> <entry> <organizer moodCode= "EVN" classCode="BATTERY"> <templateId root="2.16.840.1.287848.10.20.22.4.1 " /> <id nullFlavor="NA" /> <code codeSystem="local" code="4024-6" displayName="Serum or plasma salicylates measurement (mass/volume)" /> < statusCode code="completed" /> <component> <observation moodCode= "EVN" classCode="OBS"> <templateId root="2.16.840.1.619740.10.20.22.4.2 " /> <id nullFlavor="NA" /> <code codeSystem="local" code= "4024-6" displayName="Serum or plasma salicylates measurement (mass/volume)" /> <statusCode code="completed" /> <effectiveTime value= "785072684597" /> <value unit="mg/dL" xsi:type="PQ" value="<" /> <interpretationCode codeSystem="local" code="" /> < referenceRange> <observationRange> <text>5.0-20.0</text > </observationRange> </referenceRange> </observation > </component> </organizer> </entry> <entry> <organizer moodCode= "EVN" classCode="BATTERY"> <templateId root="216.840.1.777550.10..22.4.1 " /> <id nullFlavor="NA" /> <code codeSystem="local" code="3298-7" displayName="Serum or plasma acetaminophen measurement (mass/volume)" /> < statusCode code="completed" /> <component> <observation moodCode= "EVN" classCode="OBS"> <templateId root="216.840.1.066853.10...4.2 " /> <id nullFlavor="NA" /> <code codeSystem="local" code= "3298-7" displayName="Serum or plasma acetaminophen measurement (mass/volume)" / > <statusCode code="completed" /> <effectiveTime value= "258922742641" /> <value unit="ug/mL" xsi:type="PQ" value="<" /> <interpretationCode codeSystem="local" code="" /> < referenceRange> <observationRange> <text>10-30</text> </observationRange> </referenceRange> </observation> </component> </organizer> </entry> <entry> <organizer moodCode="EVN " classCode="BATTERY"> <templateId root="16.840.1.632174.10..22.4.1" / > <id nullFlavor="NA" /> <code codeSystem="local" code="5643-2" displayName="Serum or plasma ethanol measurement (mass/volume)" /> < statusCode code="completed" /> <component> <observation moodCode= "EVN" classCode="OBS"> <templateId root="216.840.1.443149.10..22.4.2 " /> <id nullFlavor="NA" /> <code codeSystem="local" code= "5643-2" displayName="Serum or plasma ethanol measurement (mass/volume)" /> <statusCode code="completed" /> <effectiveTime value= "626239780006" /> <value unit="mg/dL" xsi:type="PQ" value="<" /> <referenceRange> <observationRange> <text><10< /text> </observationRange> </referenceRange> </ observation> </component> </organizer> </entry> <entry> <organizer moodCode="EVN" classCode="BATTERY"> <templateId root= "2.16.840.1.095122.10.20.22.4.1" /> <id nullFlavor="NA" /> <code codeSystem="local" code="09170-1" displayName="Serum or plasma thyrotropin measurement by detection limit <=0.05 miu/l (units/volume)" /> < statusCode code="completed" /> <component> <observation moodCode= "EVN" classCode="OBS"> <templateId root="2.16.840.1.280309.10.20.22.4.2 " /> <id nullFlavor="NA" /> <code codeSystem="local" code= "90538-4" displayName="Serum or plasma thyrotropin measurement by detection limit <=0.05 miu/l (units/volume)" /> <statusCode code="completed" / > <effectiveTime value="636846841070" /> <value unit="u[iU]/mL " xsi:type="PQ" value="1.91" /> <referenceRange> < observationRange> <text>0.35-4.94</text> </ observationRange> </referenceRange> </observation> </ component> </organizer> </entry> <entry> <organizer moodCode="EVN" classCode="BATTERY"> <templateId root="216.840.1.064815.10..4.1" /> <id nullFlavor="NA" /> <code codeSystem="local" code="20806-2" displayName="Complete urinalysis with reflex to culture" /> <statusCode code="completed" /> <component> <observation moodCode="EVN" classCode="OBS"> <templateId root="11.30.840.1.568548.08.03.22.4.2" /> <id nullFlavor="NA" /> <code codeSystem="local" code="5778-6" displayName="Urine color determination" /> <statusCode code="completed " /> <effectiveTime value="" /> <value unit="" xsi :type="PQ" value="YELLOW" /> <referenceRange> < observationRange> <text>NRG</text> </observationRange> </referenceRange> </observation> </component> < component> <observation moodCode="EVN" classCode="OBS"> < templateId root="11.30.840.1.495013.08.03.22.4.2" /> <id nullFlavor="NA " /> <code codeSystem="local" code="75957-4" displayName="Urine clarity determination" /> <statusCode code="completed" /> < effectiveTime value="" /> <value unit="" xsi:type="PQ" value="SLIGHTLY CLOUDY" /> <referenceRange> < observationRange> <text>NRG</text> </observationRange> </referenceRange> </observation> </component> < component> <observation moodCode="EVN" classCode="OBS"> < templateId root="216.840.1.736364.08.03.22.4.2" /> <id nullFlavor="NA " /> <code codeSystem="local" code="5803-2" displayName="Urine pH measurement by test strip" /> <statusCode code="completed" /> <effectiveTime value="213558480577" /> <value unit="" xsi:type="PQ" value="6" /> <referenceRange> <observationRange> <text>5-9</text> </observationRange> </referenceRange> </observation> </component> <component> <observation moodCode="EVN" classCode="OBS"> <templateId root= "2.16.840.1.712353.10..22.4.2" /> <id nullFlavor="NA" /> < code codeSystem="local" code="5811-5" displayName="Specific gravity of urine by test strip" /> <statusCode code="completed" /> <effectiveTime value="637750807005" /> <value unit="" xsi:type="PQ" value="1.010" /> <interpretationCode codeSystem="local" code="" /> < referenceRange> <observationRange> <text>1.016-1.022</ text> </observationRange> </referenceRange> </ observation> </component> <component> <observation moodCode= "EVN" classCode="OBS"> <templateId root="216.840.1.041881.10.20.22.4.2 " /> <id nullFlavor="NA" /> <code codeSystem="local" code= "76885-9" displayName="Urine protein assay by test strip, semi-quantitative" /> <statusCode code="completed" /> <effectiveTime value= "" /> <value unit="" xsi:type="PQ" value="NEGATIVE" /> <referenceRange> <observationRange> <text>NEGATIVE </text> </observationRange> </referenceRange> </ observation> </component> <component> <observation moodCode= "EVN" classCode="OBS"> <templateId root="216.840.1.724003.10..22.4.2 " /> <id nullFlavor="NA" /> <code codeSystem="local" code= "39600-1" displayName="Urine glucose detection by automated test strip" /> <statusCode code="completed" /> <effectiveTime value=" " /> <value unit="" xsi:type="PQ" value="NEGATIVE" /> < referenceRange> <observationRange> <text>NEGATIVE</text > </observationRange> </referenceRange> </observation > </component> <component> <observation moodCode="EVN" classCode="OBS"> <templateId root="216.840.1.896976.10..4.2" /> <id nullFlavor="NA" /> <code codeSystem="local" code="20770-0 " displayName="Erythrocytes detection in urine sediment by light microscopy" /> <statusCode code="completed" /> <effectiveTime value= "" /> <value unit="" xsi:type="PQ" value="NEGATIVE" /> <referenceRange> <observationRange> <text>NEGATIVE </text> </observationRange> </referenceRange> </ observation> </component> <component> <observation moodCode= "EVN" classCode="OBS"> <templateId root="11.30.840.1.522820.10.20.22.4.2 " /> <id nullFlavor="NA" /> <code codeSystem="local" code= "09217-8" displayName="Urine ketones detection by automated test strip" /> <statusCode code="completed" /> <effectiveTime value=" " /> <value unit="" xsi:type="PQ" value="NEGATIVE" /> < referenceRange> <observationRange> <text>NEGATIVE</text > </observationRange> </referenceRange> </observation > </component> <component> <observation moodCode="EVN" classCode="OBS"> <templateId root="216.840.1.544765.10.20.22.4.2" /> <id nullFlavor="NA" /> <code codeSystem="local" code="5802-4" displayName="Urine nitrite detection by test strip" /> <statusCode code ="completed" /> <effectiveTime value="199615333203" /> <value unit="" xsi:type="PQ" value="NEGATIVE" /> <referenceRange> < observationRange> <text>NEGATIVE</text> </ observationRange> </referenceRange> </observation> </ component> <component> <observation moodCode="EVN" classCode="OBS"> <templateId root="11.30.840.1.227470.10..22.4.2" /> <id nullFlavor="NA" /> <code codeSystem="local" code="5770-3" displayName= "Urine total bilirubin detection by test strip" /> <statusCode code= "completed" /> <effectiveTime value="117868509880" /> <value unit="" xsi:type="PQ" value="NEGATIVE" /> <referenceRange> < observationRange> <text>NEGATIVE</text> </ observationRange> </referenceRange> </observation> </ component> <component> <observation moodCode="EVN" classCode="OBS"> <templateId root="11.30.840.1.170299.10.20.22.4.2" /> <id nullFlavor="NA" /> <code codeSystem="local" code="28597-4" displayName= "Urine urobilinogen measurement by automated test strip (mass/volume)" /> <statusCode code="completed" /> <effectiveTime value="502770073782 " /> <value unit="" xsi:type="PQ" value="NORMAL" /> < referenceRange> <observationRange> <text>NORMAL</text> </observationRange> </referenceRange> </observation> </component> <component> <observation moodCode="EVN" classCode ="OBS"> <templateId root="216.840.1.722638.10.4.2" /> < id nullFlavor="NA" /> <code codeSystem="local" code="5799-2" displayName="Urine leukocyte esterase detection by dipstick" /> < statusCode code="completed" /> <effectiveTime value="916618333622" /> <value unit="" xsi:type="PQ" value="3+" /> < interpretationCode codeSystem="local" code="*" /> <referenceRange> <observationRange> <text>NEGATIVE</text> </ observationRange> </referenceRange> </observation> </ component> <component> <observation moodCode="EVN" classCode="OBS"> <templateId root="16.840.1.371871.08.03.22.4.2" /> <id nullFlavor="NA" /> <code codeSystem="local" code="67832-0" displayName= "Automated urine sediment erythrocyte count by microscopy (number/high power field)" /> <statusCode code="completed" /> <effectiveTime value="331624501506" /> <value unit="" xsi:type="PQ" value="NONE" /> <referenceRange> <observationRange> <text>NRG</ text> </observationRange> </referenceRange> </ observation> </component> <component> <observation moodCode= "EVN" classCode="OBS"> <templateId root="216.840.1.666068.08.03.22.4.2 " /> <id nullFlavor="NA" /> <code codeSystem="local" code= "5821-4" displayName="Automated urine sediment leukocyte count by microscopy ( number/high power field)" /> <statusCode code="completed" /> < effectiveTime value="" /> <value unit="[HPF]" xsi:type="PQ " value="" /> <interpretationCode codeSystem="local" code="*" /> <referenceRange> <observationRange> <text>NRG</text > </observationRange> </referenceRange> </observation > </component> <component> <observation moodCode="EVN" classCode="OBS"> <templateId root="216.840.1.186587.08.03.22.4.2" /> <id nullFlavor="NA" /> <code codeSystem="local" code="19384-7 " displayName="Bacteria detection in urine sediment by light microscopy" /> <statusCode code="completed" /> <effectiveTime value= "" /> <value unit="" xsi:type="PQ" value="TRACE" /> <referenceRange> <observationRange> <text>NRG</text> </observationRange> </referenceRange> </observation > </component> <component> <observation moodCode="EVN" classCode="OBS"> <templateId root="11.30.840.1.152920.10..4.2" /> <id nullFlavor="NA" /> <code codeSystem="local" code="79309-0 " displayName="Squamous epithelial cells detection in urine sediment by light microscopy" /> <statusCode code="completed" /> <effectiveTime value="" /> <value unit="" xsi:type="PQ" value="10-25" /> <interpretationCode codeSystem="local" code="*" /> < referenceRange> <observationRange> <text>NRG</text> </observationRange> </referenceRange> </observation> </component> <component> <observation moodCode="EVN" classCode= "OBS"> <templateId root="216.840.1.658424.10.2022.4.2" /> < id nullFlavor="NA" /> <code codeSystem="local" code="58183-2" displayName="Crystals detection in urine sediment by light microscopy" /> <statusCode code="completed" /> <effectiveTime value="542502482058 " /> <value unit="" xsi:type="PQ" value="NONE" /> < referenceRange> <observationRange> <text>NRG</text> </observationRange> </referenceRange> </observation> </component> <component> <observation moodCode="EVN" classCode= "OBS"> <templateId root="11.30.840.1.302535.10.22.4.2" /> < id nullFlavor="NA" /> <code codeSystem="local" code="43772-2" displayName="Casts detection in urine sediment by light microscopy" /> <statusCode code="completed" /> <effectiveTime value="805955748460" /> <value unit="" xsi:type="PQ" value="NONE" /> <referenceRange > <observationRange> <text>NRG</text> </ observationRange> </referenceRange> </observation> </ component> <component> <observation moodCode="EVN" classCode="OBS"> <templateId root="11.30.840.1.796923.10.2022.4.2" /> <id nullFlavor="NA" /> <code codeSystem="local" code="8247-9" displayName= "Mucus detection in urine sediment by light microscopy" /> <statusCode code="completed" /> <effectiveTime value="946346121153" /> < value unit="" xsi:type="PQ" value="NEGATIVE" /> <referenceRange> <observationRange> <text>NRG</text> </ observationRange> </referenceRange> </observation> </ component> <component> <observation moodCode="EVN" classCode="OBS"> <templateId root="216.840.1.171219.10..4.2" /> <id nullFlavor="NA" /> <code codeSystem="local" code="98445-8" displayName= "Complete urinalysis with reflex to culture" /> <statusCode code= "completed" /> <effectiveTime value="210877878859" /> <value unit="" xsi:type="PQ" value="YES" /> <referenceRange> < observationRange> <text>NRG</text> </observationRange> </referenceRange> </observation> </component> < component> <observation moodCode="EVN" classCode="OBS"> < templateId root="2.16.840.1.163382.10..4.2" /> <id nullFlavor="NA " /> <code codeSystem="local" code="69260-1" displayName="Urine Trichomonas species detection by light microscopy" /> <statusCode code= "completed" /> <effectiveTime value="638721695467" /> <value unit="" xsi:type="PQ" value="FEW" /> <interpretationCode codeSystem= "local" code="*" /> <referenceRange> <observationRange> <text>NRG</text> </observationRange> </ referenceRange> </observation> </component> </organizer> </entry > <entry> <organizer moodCode="EVN" classCode="BATTERY"> <templateId root="216.840.1.849870.10..22.4.1" /> <id nullFlavor="NA" /> <code codeSystem="local" code="2114-04" displayName="Urine beta human chorionic gonadotropin (hCG) measurement" /> <statusCode code="completed" /> < component> <observation moodCode="EVN" classCode="OBS"> < templateId root="216.840.1.753792.10.4.2" /> <id nullFlavor="NA " /> <code codeSystem="local" code="2114-04" displayName="Urine beta human chorionic gonadotropin (hCG) measurement" /> <statusCode code= "completed" /> <effectiveTime value="945782235632" /> <value unit="" xsi:type="PQ" value="NEGATIVE" /> <referenceRange> < observationRange> <text>NEGATIVE</text> </ observationRange> </referenceRange> </observation> </ component> </organizer> </entry> <entry> <organizer moodCode="EVN" classCode="BATTERY"> <templateId root="11.30.840.1.209917.10..4.1" /> <id nullFlavor="NA" /> <code codeSystem="local" code="58687-2" displayName="Urine drug screening test" /> <statusCode code="completed" /> <component> <observation moodCode="EVN" classCode="OBS"> < templateId root="16.840.1.314923.10..22.4.2" /> <id nullFlavor="NA " /> <code codeSystem="local" code="60724-8" displayName="Urine phencyclidine detection by screening method" /> <statusCode code= "completed" /> <effectiveTime value="640524253588" /> <value unit="" xsi:type="PQ" value="NEGATIVE" /> <referenceRange> < observationRange> <text>NEGATIVE</text> </ observationRange> </referenceRange> </observation> </ component> <component> <observation moodCode="EVN" classCode="OBS"> <templateId root="216.840.1.689375.10.20.22.4.2" /> <id nullFlavor="NA" /> <code codeSystem="local" code="70002-6" displayName= "Urine benzodiazepines detection by screening method" /> <statusCode code="completed" /> <effectiveTime value="" /> < value unit="" xsi:type="PQ" value="NEGATIVE" /> <referenceRange> <observationRange> <text>NEGATIVE</text> </ observationRange> </referenceRange> </observation> </ component> <component> <observation moodCode="EVN" classCode="OBS"> <templateId root="11.30.840.1.450913.10.22.4.2" /> <id nullFlavor="NA" /> <code codeSystem="local" code="3397-7" displayName= "Urine cocaine detection" /> <statusCode code="completed" /> < effectiveTime value="025924490700" /> <value unit="" xsi:type="PQ" value="NEGATIVE" /> <referenceRange> <observationRange> <text>NEGATIVE</text> </observationRange> </ referenceRange> </observation> </component> <component> <observation moodCode="EVN" classCode="OBS"> <templateId root= "11.30.840.1.989854.10.2022.4.2" /> <id nullFlavor="NA" /> < code codeSystem="local" code="90956-0" displayName="Urine amphetamines detection by screening method" /> <statusCode code="completed" /> <effectiveTime value="" /> <value unit="" xsi:type="PQ " value="NEGATIVE" /> <referenceRange> <observationRange> <text>NEGATIVE</text> </observationRange> </ referenceRange> </observation> </component> <component> <observation moodCode="EVN" classCode="OBS"> <templateId root= "216.840.1.762218.10.2022.4.2" /> <id nullFlavor="NA" /> < code codeSystem="local" code="18927-9" displayName="Urine methamphetamine detection by screening method" /> <statusCode code="completed" /> <effectiveTime value="101342997701" /> <value unit="" xsi:type="PQ " value="NEGATIVE" /> <referenceRange> <observationRange> <text>NEGATIVE</text> </observationRange> </ referenceRange> </observation> </component> <component> <observation moodCode="EVN" classCode="OBS"> <templateId root= "11.30.840.1.796459.10.22.4.2" /> <id nullFlavor="NA" /> < code codeSystem="local" code="30400-0" displayName="Urine cannabinoids detection by screening method" /> <statusCode code="completed" /> <effectiveTime value="338644574368" /> <value unit="" xsi:type="PQ " value="NEGATIVE" /> <referenceRange> <observationRange> <text>NEGATIVE</text> </observationRange> </ referenceRange> </observation> </component> <component> <observation moodCode="EVN" classCode="OBS"> <templateId root= "16.840.1.852663.10.20.22.4.2" /> <id nullFlavor="NA" /> < code codeSystem="local" code="51033-4" displayName="Urine opiates detection by screening method" /> <statusCode code="completed" /> < effectiveTime value="210519953186" /> <value unit="" xsi:type="PQ" value="NEGATIVE" /> <referenceRange> <observationRange> <text>NEGATIVE</text> </observationRange> </ referenceRange> </observation> </component> <component> <observation moodCode="EVN" classCode="OBS"> <templateId root= "216.840.1.109310.10...4.2" /> <id nullFlavor="NA" /> < code codeSystem="local" code="3377-9" displayName="Urine barbiturates detection " /> <statusCode code="completed" /> <effectiveTime value= "857111316195" /> <value unit="" xsi:type="PQ" value="NEGATIVE" /> <referenceRange> <observationRange> <text>NEGATIVE </text> </observationRange> </referenceRange> </ observation> </component> <component> <observation moodCode= "EVN" classCode="OBS"> <templateId root="11.30.840.1.491036.10..4.2 " /> <id nullFlavor="NA" /> <code codeSystem="local" code= "61361-6" displayName="Screening urine tricyclic antidepressants detection" /> <statusCode code="completed" /> <effectiveTime value= "771735200624" /> <value unit="" xsi:type="PQ" value="NEGATIVE" /> <referenceRange> <observationRange> <text>NEGATIVE </text> </observationRange> </referenceRange> </ observation> </component> <component> <observation moodCode= "EVN" classCode="OBS"> <templateId root="216.840.1.513406.10...4.2 " /> <id nullFlavor="NA" /> <code codeSystem="local" code= "58331-3" displayName="Urine methadone detection by screening method" /> <statusCode code="completed" /> <effectiveTime value="" /> <value unit="" xsi:type="PQ" value="NEGATIVE" /> < referenceRange> <observationRange> <text>NEGATIVE</text > </observationRange> </referenceRange> </observation > </component> <component> <observation moodCode="EVN" classCode="OBS"> <templateId root="2.16.840.1.024046.10.20.22.4.2" /> <id nullFlavor="NA" /> <code codeSystem="local" code="21323-6 " displayName="Urine oxycodone detection" /> <statusCode code= "completed" /> <effectiveTime value="" /> <value unit="" xsi:type="PQ" value="NEGATIVE" /> <referenceRange> < observationRange> <text>NEGATIVE</text> </ observationRange> </referenceRange> </observation> </ component> <component> <observation moodCode="EVN" classCode="OBS"> <templateId root="2.16.840.1.818854.10.20.22.4.2" /> <id nullFlavor="NA" /> <code codeSystem="local" code="63965-6" displayName= "Urine propoxyphene detection" /> <statusCode code="completed" /> <effectiveTime value="" /> <value unit="" xsi:type="PQ " value="NEGATIVE" /> <referenceRange> <observationRange> <text>NEGATIVE</text> </observationRange> </ referenceRange> </observation> </component> </organizer> </entry > <entry> <organizer moodCode="EVN" classCode="BATTERY"> <templateId root="216.840.1.160189.10..4.1" /> <id nullFlavor="NA" /> <code codeSystem="local" code="630-4" displayName="Bacterial urine culture" /> < statusCode code="completed" /> <component> <observation moodCode= "EVN" classCode="OBS"> <templateId root="11.30.840.1.886032.08.03.22.4.2 " /> <id nullFlavor="NA" /> <code codeSystem="local" code="630 -4" displayName="Bacterial urine culture" /> <statusCode code= "completed" /> <effectiveTime value="975843401338" /> <value unit="" xsi:type="PQ" value="SEE COMMEN" /> <referenceRange> <observationRange> <text>NRG</text> </observationRange > </referenceRange> </observation> </component> < component> <observation moodCode="EVN" classCode="OBS"> < templateId root="840.1.983766.08.03.22.4.2" /> <id nullFlavor="NA " /> <code codeSystem="local" code="CC" displayName="COLONY COUNT" /> <statusCode code="completed" /> <effectiveTime value= "758160153361" /> <value unit="" xsi:type="PQ" value="." /> < referenceRange> <observationRange> <text>NRG</text> </observationRange> </referenceRange> </observation> </component> </organizer> </entry> <entry> <organizer moodCode="EVN" classCode="BATTERY"> <templateId root="16.840.1.787926...4.1" /> <id nullFlavor="NA" /> <code codeSystem="local" code="46578-9" displayName="Methicillin resistant Staphylococcus aureus (MRSA) screening culture" /> <statusCode code="completed" /> <component> < observation moodCode="EVN" classCode="OBS"> <templateId root= "2.16.840.1.472153.10.20.22.4.2" /> <id nullFlavor="NA" /> < code codeSystem="local" code="19651-9" displayName="Methicillin resistant Staphylococcus aureus (MRSA) screening culture" /> <statusCode code= "completed" /> <effectiveTime value="572423836717" /> <value unit="" xsi:type="PQ" value="NEG" /> <referenceRange> < observationRange> <text>NRG</text> </observationRange> </referenceRange> </observation> </component> </ organizer> </entry></section> Encounters ACCT No. Visit Date/Time Discharge Status Pt. Type Provider Facility Loc./Unit Complaint [id number] 12/24/2017 00:00:00 12/24/2017 00:00:00 DIS Outpatient [id number] 03/14/2017 13:15:00 Document Registration [id number] 03/14/2017 00:00:00 Document Registration [id number] 01/05/2018 15:04:00 ACT Document Registration [id number] 11/05/2018 14:01:00 11/05/2018 23:59:00 DIS Outpatient Delaney Delane [facility] Diag Rad R05 [id number] 01/04/2018 10:08:00 01/04/2018 12:30:00 DIS Emergency Magallanes Howard [facility] ED abd pain [id number] 12/15/2017 20:05:00 12/15/2017 23:59:59 CLS Emergency Zarate Jacob [facility] on [facility] ED chest pain, memory issues [id number] 11/21/2017 00:46:00 11/28/2017 17:20:00 DIS Inpatient Hernandez Rex [facility] on [facility] J5IM SA, APAP tox, meth abuse [id number] 11/04/2017 02:42:00 11/04/2017 03:40:00 DIS Emergency Zac Tijerina [facility] on [facility] ED SOA, ABD Pain [id number] 10/16/2017 22:17:00 10/17/2017 01:11:00 DIS Emergency Magallanes Howard [facility] ED abd pain [id number] 08/04/2017 18:35:00 08/05/2017 12:28:00 DIS Emergency Zarate Jacob [facility] ED abominal pain [id number] 08/03/2017 11:01:00 08/03/2017 14:17:00 DIS Emergency Zarate Jacob [facility] ED abd pain [id number] 06/11/2017 10:40:00 06/11/2017 23:59:59 CLS Emergency Zarate Jacob [facility] ED ABD PAIN [id number] 05/24/2017 09:18:00 05/24/2017 12:11:00 DIS Emergency Zarate Jacob [facility] on [facility] ED n/v bodyaches, chills [id number] 02/09/2017 08:16:00 02/09/2017 13:41:00 DIS Emergency Love Denise [facility] on [facility] ED nausea, left sided abd pain [id number] 09/30/2016 01:15:00 09/30/2016 04:31:00 DIS Emergency Richar Pierce [facility] on [facility] ED sore throat, left ear pain [id number] 08/17/2016 17:31:00 08/17/2016 19:42:00 DIS Emergency Zac Tijerina [facility] on [facility] ED right side abd pain [id number] 08/16/2016 00:56:00 08/17/2016 12:59:00 DIS Outpatient Velazquez Jeremy [facility] on [facility] J6E intractable abdominal pain [id number] 05/28/2016 20:19:00 05/28/2016 21:41:00 DIS Emergency Srivastava Mark [facility] on [facility] ED cough, SOA [id number] 03/20/2016 01:21:00 03/20/2016 23:59:59 CLS Emergency Skinner Matthew [facility] on [facility] ED abd pain, cramping [id number] 03/07/2016 21:42:00 03/08/2016 19:16:00 DIS Outpatient Jorge Brice [facility] on [facility] J5W Incomplete / dysfunctional bleeding [id number] 02/29/2016 23:47:00 03/01/2016 01:01:00 DIS Emergency Srivastava Mark [facility] on [facility] ED vaginal bleeding [id number] 02/28/2016 20:08:00 02/28/2016 22:19:00 DIS Emergency Srivastava Mark [facility] on [facility] ED vag bleeding, 8 wks [id number] 02/18/2016 13:47:00 02/18/2016 17:14:00 DIS Emergency Richar Pierce [facility] on [facility] ED Possible miscarriage [id number] 01/25/2016 20:48:00 01/25/2016 23:09:00 DIS Emergency José Magallanes MD [facility] on [facility] ED CONGESTION, COUGH [id number] 11/25/2015 13:12:00 11/25/2015 13:52:00 DIS Emergency José Magallanes MD [facility] on [facility] ED sore throt [id number] 10/27/2015 12:04:00 10/27/2015 13:55:00 DIS Emergency Richar Pierce [facility] on [facility] ED SOA possible reaction to meds [id number] 06/10/2015 10:24:00 06/10/2015 12:25:00 DIS Emergency Navin Reynolds MD [facility] on [facility] ED N/V [id number] 05/02/2015 12:45:00 05/02/2015 17:15:00 DIS Emergency Elpidio DODD, José Barajas [facility], AGUILERA [id number] 01/05/2018 05:16:58 Document Registration [id number] 11/29/2017 05:16:48 Document Registration [id number] 11/27/2017 05:17:01 Document Registration [id number] 11/26/2017 05:15:46 Document Registration [id number] 11/24/2017 05:16:54 Document Registration [id number] 11/23/2017 05:16:49 Document Registration [id number] 11/22/2017 05:16:43 Document Registration [id number] 11/21/2017 05:17:23 Document Registration [id number] 08/06/2017 05:16:01 Document Registration [id number] 08/05/2017 05:16:09 Document Registration [id number] 08/05/2017 05:16:08 Document Registration [id number] 08/04/2017 05:17:00 Document Registration [id number] 08/04/2017 05:16:59 Document Registration [id number] 05/25/2017 05:16:24 Document Registration [id number] 05/25/2017 05:16:23 Document Registration [id number] 02/10/2017 05:16:11 Document Registration [id number] 10/01/2016 05:15:23 Document Registration [id number] 09/30/2016 05:15:40 Document Registration [id number] 08/18/2016 05:17:33 Document Registration [id number] 08/17/2016 05:17:15 Document Registration [id number] 08/16/2016 05:17:13 Document Registration [id number] 05/29/2016 05:15:17 Document Registration [id number] 03/21/2016 05:15:44 Document Registration [id number] 03/09/2016 05:15:51 Document Registration [id number] 03/08/2016 05:16:38 Document Registration [id number] 03/01/2016 05:16:45 Document Registration [id number] 02/19/2016 05:16:30 Document Registration [id number] 01/26/2016 05:16:48 Document Registration [id number] 11/26/2015 05:16:00 Document Registration [id number] 10/28/2015 05:16:07 Document Registration [id number] 10/23/2015 05:16:33 Document Registration [id number] 10/23/2015 00:22:00 Document Registration [id number] 08/04/2015 13:35:28 Document Registration [id number] 08/04/2015 13:04:37 Document Registration [id number] 08/04/2015 11:33:05 Document Registration [id number] 11/05/2018 13:45:00 11/05/2018 23:59:59 [facility] Outpatient Cuca DelaneyAlejandro [facility] [id number] 10/16/2017 23:32:00 10/17/2017 00:30:00 DIS Emergency Aakash Luis DO [facility] [id number] 06/11/2017 18:32:00 06/11/2017 21:45:00 DIS Emergency Tanja DODD, Odalis Vazquez JONG [id number] 06/08/2016 13:30:00 06/08/2016 13:30:00 CAN Outpatient Sae Reyna DO [facility] W.PUMA [id number] 02/04/2016 14:29:00 02/04/2016 17:46:00 DIS Emergency Fabienne DODD, Rashaun Mendes JONG [id number] 01/30/2016 21:33:00 01/30/2016 22:51:00 DIS Emergency Vishal DODD, Zac Arshad EDS [id number] 12/11/2015 15:28:00 12/11/2015 15:59:00 DIS Emergency Golden Galloway DO ED [id number] 11/30/2015 23:10:00 12/01/2015 00:15:00 DIS Emergency Justino Matson DO [facility] [id number] 10/06/2016 14:57:20 10/06/2016 23:59:59 CLS Outpatient Yunior Velazquez [id number] 12/25/2017 05:16:39 Document Registration [id number] 12/22/2017 05:16:44 Document Registration [id number] 12/21/2017 05:16:13 Document Registration [id number] 12/20/2017 05:17:02 Document Registration [id number] 12/19/2017 05:17:18 Document Registration [id number] 12/16/2017 05:16:09 Document Registration [id number] 12/15/2017 20:05:00 Document Registration [id number] 02/09/2017 08:16:00 Document Registration [id number] 08/17/2016 17:31:00 Document Registration [id number] 08/16/2016 00:00:00 Document Registration [id number] 03/07/2016 21:42:00 Document Registration [id number] 02/29/2016 15:29:00 Document Registration [id number] 07/16/2018 05:03:00 07/16/2018 05:26:00 DIS Emergency ODALYS DODD, SALVATORE Arshad [facility] ER PSYCH [id number] 05/08/2018 13:31:00 05/08/2018 14:12:00 DIS Emergency BUTCH LOTT Via [facility] ER RIGHT FINGER LACERATION [id number] 03/26/2018 02:10:00 03/27/2018 13:26:00 DIS Inpatient HEMALATHA DODD, LEROY Nash Via [facility] ICU OD,SUICIDE ATTEMPT, TRICHOMONAS VAGINITIS [id number] 03/26/2018 07:31:00 Document Registration [id number] 03/26/2018 07:31:00 Document Registration [id number] 03/26/2018 07:31:00 Document Registration [id number] 09/01/2009 08:33:00 Document Registration [id number] 11/19/2018 15:00:00 11/19/2018 23:59:59 [facility]
[2018-11-28] MEDS ORDERED: ONDA8TAB13 PO (14:07)
--- NOTE | 2018-11-28 14:08 | ED General ---
General Chief Complaint: Abdominal/GI Problems Stated Complaint: 12 WKS , THROWING UP Source of Information: Patient Exam Limitations: No Limitations History of Present Illness Date Seen by Provider: Nov 28, 2018 Time Seen by Provider: 14:04 Initial Comments To ER with reports of nausea and vomiting. This been ongoing for a couple days, still nauseous today. She is 12 weeks 2 days . Denies abdominal pain vaginal bleeding or cramping. Fairly recent but former substance abuse in July 2018. She states that she had an ultrasound at Dr. Ng office showing normal at 12 weeks 2 days Timing/Duration: 1-2 Days Severity: Moderate Associated Systoms: Nausea/Vomiting Allergies and Home Medications Allergies Coded Allergies: penicillin G (Verified Allergy, Severe, Throat Swelling, 03/26/18) divalproex sodium (Verified Allergy, Unknown, Vomiting, 03/26/18) Home Medications No Active Prescriptions or Reported Meds Patient Home Medication List Home Medication List Reviewed: Yes Review of Systems Review of Systems Constitutional: see HPI EENTM: see HPI Respiratory: no symptoms reported Cardiovascular: no symptoms reported Gastrointestinal: No abdominal pain, No constipation, No diarrhea; nausea, vomiting Genitourinary: see HPI Musculoskeletal: no symptoms reported Skin: no symptoms reported Psychiatric/Neurological: No Symptoms Reported Past Unmsyep-Myjqlv-Grglfq Hx Patient Social History Drug of Choice: THC, methamphetamine, PCP Type Used: Cigarettes 2nd Hand Smoke Exposure: Yes Recent Foreign Travel: No Contact w/Someone Who Travel: No Recent Hopitalizations: No Immunizations Up To Date Tetanus Booster (TDap): Unknown PED Vaccines UTD: No Seasonal Allergies Seasonal Allergies: No Past Medical History Surgeries: Yes Gallbladder Respiratory: Yes Asthma Currently Using CPAP: No Currently Using BIPAP: No Cardiac: Yes Heart Murmur Neurological: No Female Reproductive Disorders: Denies Sexually Transmitted Disease: Yes (HPV) HIV/AIDS: No Genitourinary: No Gastrointestinal: No Musculoskeletal: No Endocrine: No HEENT: No Loss of Vision: Denies Hearing Impairment: Denies Cancer: No Psychosocial: Yes Anxiety, PTSD, Suicide Attempts, Bipolar Integumentary: No Blood Disorders: No Adverse Reaction/Blood Tranf: No Family Medical History Does not know biological family- grew up in foster care Physical Exam Vital Signs Capillary Refill : Height, Weight, BMI Height: 5'10.00" Weight: 210lbs. 6.0oz. 95.244422tn; 34.2 BMI Method:Stated General Appearance: No Apparent Distress, WD/WN Eyes: Bilateral Eye Normal Inspection, Bilateral Eye PERRL, Bilateral Eye EOMI Neck: Full Range of Motion, Normal Inspection Respiratory: Normal Breath Sounds, No Accessory Muscle Use, No Respiratory Distress Cardiovascular: Normal Peripheral Pulses, Tachycardia Gastrointestinal: Normal Bowel Sounds, Non Tender, Soft Extremity: Normal Capillary Refill, Normal Inspection Neurologic/Psychiatric: Alert, Oriented x3 Skin: Normal Color, Warm/Dry Progress/Results/Core Measures Suspected Sepsis SIRS Temperature: Pulse: Respiratory Rate: Blood Pressure / Mean: Results/Orders My Orders Orders - CHRIS OZUNA APRN Cbc With Automated Diff (11/28/18 13:55) Comprehensive Metabolic Panel (11/28/18 13:55) Hcg,Quantitative (11/28/18 13:55) Ua Culture If Indicated (11/28/18 13:55) Drug Screen Stat (Urine) (11/28/18 13:55) Iv Heplock-Insert (Order) (11/28/18 13:55) Ns Iv 1000 Ml (Sodium Chloride 0.9%) (11/28/18 14:00) Ondansetron Injection (Zofran Injectio (11/28/18 14:00) Heart Tones (11/28/18 14:03) Vital Signs/I&O Capillary Refill : Departure Impression Primary Impression: Nausea and vomiting during Disposition: 01 HOME, SELF-CARE Condition: Stable Departure-Patient Inst. Decision time for Depature: 14:06 Referrals: IVAN STREET MD (PCP) Primary Care Physician [facility] (Family) Primary Care Physician Patient Instructions: Nausea and Vomiting of (DC) Add. Discharge Instructions: 1. Follow-up with her regular doctor later this week 2. Return to ER for any concerns. All discharge instructions reviewed with patient and/or family. Voiced understanding. Scripts Ondansetron (Ondansetron Odt) 8 Mg Tab.rapdis 8 MG PO Q6H PRN for NAUSEA/VOMITING-1ST LINE, #5 TAB Prov: CHRIS OZUNA APRN 11/28/18 CHRIS OZUNA APRN Nov 28, 2018 14:08
[2018-11-28 14:29] LABS: BASOPHILS % (AUTO) 0 % (0-10); EOSINOPHILS # (AUTO) 0.5 10^3/uL (0.0-0.3); EOSINOPHILS % (AUTO) 6 % (0-10); HEMATOCRIT 40 % (35-52); HEMOGLOBIN 13.9 G/DL (11.5-16.0); LYMPHOCYTES # (AUTO) 0.9 X 10^3 (1.0-4.0); LYMPHOCYTES % (AUTO) 11 % (12-44); MEAN CORPUSCULAR HEMOGLOBIN 32 PG (25-34); MEAN CORPUSCULAR HGB CONC 35 G/DL (32-36); MEAN CORPUSCULAR VOLUME 93 FL (80-99); MEAN PLATELET VOLUME 9.9 FL (7.4-10.4); MONOCYTES # (AUTO) 0.4 X 10^3 (0.0-1.0); MONOCYTES % (AUTO) 5 % (0-12); NEUTROPHILS # (AUTO) 6.4 X 10^3 (1.8-7.8); NEUTROPHILS % (AUTO) 78 % (42-75); PLATELET COUNT 215 10^3/uL (130-400); RED CELL DISTRIBUTION WIDTH 12.7 % (10.0-14.5); WHITE BLOOD COUNT 8.2 10^3/uL (4.3-11.0)
[2018-11-28 14:30] LABS: BILIRUBIN,URINE NEGATIVE (NEGATIVE); CLARITY,URINE CLEAR; COLOR,URINE YELLOW; GLUCOSE, URINE (UA) NEGATIVE (NEGATIVE); KETONES,URINE NEGATIVE (NEGATIVE); LEUKOCYTE ESTERASE ,URINE 1+ (NEGATIVE); NITRITE,URINE NEGATIVE (NEGATIVE); PH,URINE 8 (5-9); PROTEIN,URINE NEGATIVE (NEGATIVE); UROBILINOGEN,URINE NORMAL (NORMAL)
[2018-11-28 14:47] LABS: AMPHETAMINE SCREEN, URINE NEGATIVE (NEGATIVE); BARBITURATE SCREEN URINE NEGATIVE (NEGATIVE); BENZODIAZEPINES SCREEN URINE NEGATIVE (NEGATIVE); CANNABINOID SCREEN, URINE NEGATIVE (NEGATIVE); COCAINE SCREEN URINE NEGATIVE (NEGATIVE); METHADONE STAT NEGATIVE (NEGATIVE); METHAMPHETAMINE SCREEN URINE S NEGATIVE (NEGATIVE); OPIATE SCREEN URINE NEGATIVE (NEGATIVE); OXYCODONE STAT NEGATIVE (NEGATIVE); PROPOXYPHENE STAT NEGATIVE (NEGATIVE); TRICYCLIC ANTIDEPRESSANTS SCRE NEGATIVE (NEGATIVE)
[2018-11-28 14:50] LABS: ALANINE AMINOTRANSFERASE 10 U/L (0-55); ALKALINE PHOSPHATASE 48 U/L (40-136); BILIRUBIN,TOTAL 0.5 MG/DL (0.1-1.0); BUN/CREATININE RATIO 8; CALCIUM 8.5 MG/DL (8.5-10.1); CARBON DIOXIDE 23 MMOL/L (21-32); CHLORIDE 107 MMOL/L (98-107); CREATININE SERUM 0.61 MG/DL (0.60-1.30); GFR ESTIMATED > 60; GLUCOSE 88 MG/DL (70-105); POTASSIUM 3.7 MMOL/L (3.6-5.0); SODIUM 135 MMOL/L (135-145); TOTAL PROTEIN 6.5 GM/DL (6.4-8.2)
--- NOTE | 2018-11-28 14:53 | NUR ---
HEART TONE 184, DR IS INFORMED.
[2018-11-28 15:02] LABS: WBC,URINE 0-2 /HPF
[2018-11-28 15:03] LABS: BACTERIA,URINE TRACE /HPF
[2018-11-28 16:07] VITALS: BP 99/66
== END 2018-11-28 16:10 | disposition home or self-care (01) ==
LOC: EDUNIT# 13:48 → ER 13:51
DX: O21.9 Vomiting of pregnancy, unspecified (principal); O99.511 Diseases of the respiratory system complicating pregnancy, first trimester; J45.909 Unspecified asthma, uncomplicated; O99.341 Other mental disorders complicating pregnancy, first trimester; F41.9 Anxiety disorder, unspecified; F43.10 Post-traumatic stress disorder, unspecified; F31.9 Bipolar disorder, unspecified; Z86.19 Personal history of other infectious and parasitic diseases; Z3A.12 12 weeks gestation of pregnancy; Z88.0 Allergy status to penicillin; Z91.5 Personal history of self-harm; Z88.8 Allergy status to other drugs, medicaments and biological substances; Z77.22 Contact with and (suspected) exposure to environmental tobacco smoke (acute) (chronic); Z98.890 Other specified postprocedural states
CPT/HCPCS: 36415; 80053; 80306; 81000; 84702; 85025; 96361; 96374

== ENCOUNTER 2018-12-11 18:25 | Emergency (ER) | payer MEDICAID ==
[~2018-12-11] VITALS: Ht 172.7 cm; Wt 93.0 kg
[~2018-12-11 18:25] MED LIST changes: +ONDA8TAB13 PO
[2018-12-11] MEDS ORDERED: NS IV 1000 ML 1,000 ML IV ONE (18:29)
[2018-12-11 18:47] LABS: BASOPHILS % (AUTO) 0 % (0-10); EOSINOPHILS # (AUTO) 0.7 10^3/uL (0.0-0.3); EOSINOPHILS % (AUTO) 8 % (0-10); HEMATOCRIT 39 % (35-52); HEMOGLOBIN 13.8 G/DL (11.5-16.0); LYMPHOCYTES # (AUTO) 2.2 X 10^3 (1.0-4.0); LYMPHOCYTES % (AUTO) 24 % (12-44); MEAN CORPUSCULAR HEMOGLOBIN 32 PG (25-34); MEAN CORPUSCULAR HGB CONC 35 G/DL (32-36); MEAN CORPUSCULAR VOLUME 92 FL (80-99); MEAN PLATELET VOLUME 9.6 FL (7.4-10.4); MONOCYTES # (AUTO) 0.8 X 10^3 (0.0-1.0); MONOCYTES % (AUTO) 8 % (0-12); NEUTROPHILS # (AUTO) 5.5 X 10^3 (1.8-7.8); NEUTROPHILS % (AUTO) 60 % (42-75); PLATELET COUNT 271 10^3/uL (130-400); RED CELL DISTRIBUTION WIDTH 12.7 % (10.0-14.5); WHITE BLOOD COUNT 9.2 10^3/uL (4.3-11.0)
[2018-12-11 18:49] LABS: BILIRUBIN,URINE NEGATIVE (NEGATIVE); CLARITY,URINE CLEAR; COLOR,URINE YELLOW; GLUCOSE, URINE (UA) NEGATIVE (NEGATIVE); KETONES,URINE NEGATIVE (NEGATIVE); LEUKOCYTE ESTERASE ,URINE NEGATIVE (NEGATIVE); NITRITE,URINE NEGATIVE (NEGATIVE); PH,URINE 7 (5-9); PROTEIN,URINE NEGATIVE (NEGATIVE); UROBILINOGEN,URINE NORMAL (NORMAL)
[2018-12-11 19:01] LABS: AMPHETAMINE SCREEN, URINE NEGATIVE (NEGATIVE); BARBITURATE SCREEN URINE NEGATIVE (NEGATIVE); BENZODIAZEPINES SCREEN URINE NEGATIVE (NEGATIVE); CANNABINOID SCREEN, URINE NEGATIVE (NEGATIVE); COCAINE SCREEN URINE NEGATIVE (NEGATIVE); METHADONE STAT NEGATIVE (NEGATIVE); METHAMPHETAMINE SCREEN URINE S NEGATIVE (NEGATIVE); OPIATE SCREEN URINE NEGATIVE (NEGATIVE); OXYCODONE STAT NEGATIVE (NEGATIVE); PROPOXYPHENE STAT NEGATIVE (NEGATIVE); TRICYCLIC ANTIDEPRESSANTS SCRE NEGATIVE (NEGATIVE)
[2018-12-11 19:22] LABS: BACTERIA,URINE FEW /HPF; SQUAMOUS EPITHELIAL CELL,UR 0-2 /HPF; WBC,URINE 0-2 /HPF
[2018-12-11 19:30] LABS: ALANINE AMINOTRANSFERASE 9 U/L (0-55); ALBUMIN 4.1 GM/DL (3.2-4.5); ALKALINE PHOSPHATASE 55 U/L (40-136); AMYLASE 40 U/L (25-125); BILIRUBIN,TOTAL 0.2 MG/DL (0.1-1.0); BUN/CREATININE RATIO 16; CALCIUM 9.7 MG/DL (8.5-10.1); CARBON DIOXIDE 22 MMOL/L (21-32); CHLORIDE 105 MMOL/L (98-107); CREATININE SERUM 0.57 MG/DL (0.60-1.30); GFR ESTIMATED > 60; GLUCOSE 81 MG/DL (70-105); LIPASE 23 U/L (8-78); POTASSIUM 3.9 MMOL/L (3.6-5.0); SODIUM 138 MMOL/L (135-145); TOTAL PROTEIN 6.8 GM/DL (6.4-8.2)
--- NOTE | 2018-12-11 20:54 | ED General ---
General Chief Complaint: General Problems/Pain Stated Complaint: AMS,14 WEEKS PREG Nursing Triage Note: PT PRESENTS TO ED VIA EMS WITH COMPLAINTS OF BEING 14 WEEKS AND HAVING FULL BODY ACHES AND PAINS ALONG WTIH TWITCHING. PT STATES SHE STARTED TAKING PROMETHAZINE YESTERDAY AND GOOGLED SIDE EFFECTS AND SHE HAS THEM ALL. Nursing Sepsis Screen: No Definite Risk Source of Information: Patient Exam Limitations: No Limitations History of Present Illness Date Seen by Provider: Dec 11, 2018 Time Seen by Provider: 18:30 Initial Comments 28-year-old female who was brought to the emergency room for complaints of body aches and twitching of her right hand after starting her promethazine prescription yesterday. She is 14 weeks and her last menstrual period was on September 07 and her due date is June 10. She is 8 para 3. 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 Fenton for obstetrics. She denies any nausea vomiting and is drinking water on arrival to the emergency room. Allergies and Home Medications Allergies Coded Allergies: penicillin G (Verified Allergy, Severe, Throat Swelling, 03/26/18) divalproex sodium (Verified Allergy, Unknown, Vomiting, 03/26/18) Home Medications Ondansetron 8 Mg Tab.rapdis, 8 MG PO Q6H PRN for NAUSEA/VOMITING-1ST LINE Prescribed by: CHRIS OZUNA on 11/28/18 1407 Past Usrgdwi-Dwoutr-Zjbuka Hx Patient Social History Alcohol Use: Denies Use Recreational Drug Use: Yes (previous hx) Drug of Choice: THC, methamphetamine, PCP Smoking Status: Current Everyday Smoker Type Used: Cigarettes 2nd Hand Smoke Exposure: Yes Recent Foreign Travel: No Contact w/Someone Who Travel: No Recent Infectious Disease Expo: No Recent Hopitalizations: No Immunizations Up To Date Tetanus Booster (TDap): Unknown PED Vaccines UTD: No Seasonal Allergies Seasonal Allergies: No Past Medical History Surgeries: Yes Gallbladder Respiratory: Yes Asthma Currently Using CPAP: No Currently Using BIPAP: No Cardiac: Yes Heart Murmur Neurological: No Female Reproductive Disorders: Denies Sexually Transmitted Disease: Yes (HPV) HIV/AIDS: No Genitourinary: No Gastrointestinal: No Musculoskeletal: No Endocrine: No HEENT: No Loss of Vision: Denies Hearing Impairment: Denies Cancer: No Psychosocial: Yes Anxiety, PTSD, Suicide Attempts, Bipolar Integumentary: No Blood Disorders: No Adverse Reaction/Blood Tranf: No Family Medical History Does not know biological family- grew up in foster care Physical Exam Vital Signs Vital Signs - First Documented 12/11/18 18:26 Temp 96.9 Pulse 92 Resp 16 B/P (MAP) 123/88 (100) Pulse Ox 100 Capillary Refill : Less Than 3 Seconds Height, Weight, BMI Height: 5'8.00" Weight: 205lbs. 6.0oz. 92.204453mj; 34.2 BMI Method:Stated Progress/Results/Core Measures Suspected Sepsis Recent Fever Within 48 Hours: No Infection Criteria Present: None New/Unexplained Altered Menta: No Sepsis Screen: No Definite Risk SIRS Temperature:96.9 Pulse: 92 Respiratory Rate: 16 Laboratory Tests 12/11/18 18:35: White Blood Count 9.2 Blood Pressure 123 /88 Mean: 100 Laboratory Tests 12/11/18 18:35: Creatinine 0.57L, Platelet Count 271, Total Bilirubin 0.2 Results/Orders Lab Results Laboratory Tests Test 12/11/18 18:35 12/11/18 18:41 Range/Units White Blood Count 9.2 4.3-11.0 10^3/uL Red Blood Count 4.27 L 4.35-5.85 10^6/uL Hemoglobin 13.8 11.5-16.0 G/DL Hematocrit 39 35-52 % Mean Corpuscular Volume 92 80-99 FL Mean Corpuscular Hemoglobin 32 25-34 PG Mean Corpuscular Hemoglobin Concent 35 32-36 G/DL Red Cell Distribution Width 12.7 10.0-14.5 % Platelet Count 271 130-400 10^3/uL Mean Platelet Volume 9.6 7.4-10.4 FL Neutrophils (%) (Auto) 60 42-75 % Lymphocytes (%) (Auto) 24 12-44 % Monocytes (%) (Auto) 8 0-12 % Eosinophils (%) (Auto) 8 0-10 % Basophils (%) (Auto) 0 0-10 % Neutrophils # (Auto) 5.5 1.8-7.8 X 10^3 Lymphocytes # (Auto) 2.2 1.0-4.0 X 10^3 Monocytes # (Auto) 0.8 0.0-1.0 X 10^3 Eosinophils # (Auto) 0.7 H 0.0-0.3 10^3/uL Basophils # (Auto) 0.0 0.0-0.1 10^3/uL Sodium Level 138 135-145 MMOL/L Potassium Level 3.9 3.6-5.0 MMOL/L Chloride Level 105 98-107 MMOL/L Carbon Dioxide Level 22 21-32 MMOL/L Anion Gap 11 5-14 MMOL/L Blood Urea Nitrogen 9 7-18 MG/DL Creatinine 0.57 L 0.60-1.30 MG/DL Estimat Glomerular Filtration Rate > 60 BUN/Creatinine Ratio 16 Glucose Level 81 70-105 MG/DL Calcium Level 9.7 8.5-10.1 MG/DL Corrected Calcium 9.6 8.5-10.1 MG/DL Total Bilirubin 0.2 0.1-1.0 MG/DL Aspartate Amino Transf (AST/SGOT) 17 5-34 U/L Alanine Aminotransferase (ALT/SGPT) 9 0-55 U/L Alkaline Phosphatase 55 40-136 U/L Total Protein 6.8 6.4-8.2 GM/DL Albumin 4.1 3.2-4.5 GM/DL Amylase Level 40 25-125 U/L Lipase 23 8-78 U/L Urine Color YELLOW Urine Clarity CLEAR Urine pH 7 5-9 Urine Specific [place] 1.005 L 1.016-1.022 Urine Protein NEGATIVE NEGATIVE Urine Glucose (UA) NEGATIVE NEGATIVE Urine Ketones NEGATIVE NEGATIVE Urine Nitrite NEGATIVE NEGATIVE Urine Bilirubin NEGATIVE NEGATIVE Urine Urobilinogen NORMAL NORMAL MG/DL Urine Leukocyte Esterase NEGATIVE NEGATIVE Urine RBC (Auto) NEGATIVE NEGATIVE Urine RBC NONE /HPF Urine WBC 0-2 /HPF Urine Squamous Epithelial Cells 0-2 /HPF Urine Crystals NONE /LPF Urine Bacteria FEW H /HPF Urine Casts NONE /LPF Urine Mucus NEGATIVE /LPF Urine Culture Indicated NO Urine Opiates Screen NEGATIVE NEGATIVE Urine Oxycodone Screen NEGATIVE NEGATIVE Urine Methadone Screen NEGATIVE NEGATIVE Urine Propoxyphene Screen NEGATIVE NEGATIVE Urine Barbiturates Screen NEGATIVE NEGATIVE Ur Tricyclic Antidepressants Screen NEGATIVE NEGATIVE Urine Phencyclidine Screen NEGATIVE NEGATIVE Urine Amphetamines Screen NEGATIVE NEGATIVE Urine Methamphetamines Screen NEGATIVE NEGATIVE Urine Benzodiazepines Screen NEGATIVE NEGATIVE Urine Cocaine Screen NEGATIVE NEGATIVE Urine Cannabinoids Screen NEGATIVE NEGATIVE Micro Results Microbiology 12/11/18 Influenza Types A,B Antigen (PETAR) - Final, Complete My Orders Orders - BUTCH LOTT Comprehensive Metabolic Panel (12/11/18 18:29) Lipase (12/11/18 18:29) Amylase (12/11/18 18:29) Ua Culture If Indicated (12/11/18 18:29) Saline Lock/Iv-Start (12/11/18 18:29) Cbc With Automated Diff (12/11/18 18:29) Saline Lock/Iv-Start (12/11/18 18:29) Ns Iv 1000 Ml (Sodium Chloride 0.9%) (12/11/18 18:29) Heart Tones (12/11/18 18:29) Influenza A And B Antigens (12/11/18 18:31) Drug Screen Stat (Urine) (12/11/18 18:32) Medications Given in ED Current Medications Medications Dose Ordered Sig/Sandrita Route Start Time Stop Time Status Last Admin Dose Admin Sodium Chloride 1,000 ml @ 0 mls/hr Q0M ONCE IV 12/11/18 18:29 12/11/18 18:31 DC 12/11/18 19:05 1,000 MLS/HR Vital Signs/I&O 12/11/18 18:26 Temp 96.9 Pulse 92 Resp 16 B/P (MAP) 123/88 (100) Pulse Ox 100 Capillary Refill : Less Than 3 Seconds Blood Pressure Mean: 100 Departure Impression Primary Impression: side effect of promethazine Disposition: 01 HOME, SELF-CARE Condition: Stable/Unchanged Departure-Patient Inst. Decision time for Depature: 20:53 Referrals: IVAN FENTON MD (PCP) Primary Care Physician [facility] (Family) Primary Care Physician Patient Instructions: - The Third Month Add. Discharge Instructions: If the side effects are unbearable of your promethazine do not use it. Follow- up with Dr. Fenton within 1 week for recheck. Call tomorrow morning for an appointment time. Return back to the emergency room for worsening symptoms or concerns as needed. All discharge instructions reviewed with patient and/or family. Voiced understanding. BUTCH LOTT Dec 11, 2018 20:54
[2018-12-11 20:57] VITALS: BP 123/88
--- OUTSIDE RECORDS SUMMARY | 2018-12-11 20:58 | XMS REPORT | Continuity of Care Document ---
Author Author [facility] Address Unknown Phone Unavailable Allergies Active Description Code Type Severity Reaction Onset Reported/Identified Relationship to Patient Clinical Status Yes divalproex sodium [id number] Drug Allergy Unknown N/A 07/06/2008 Yes penicillin G [id number] Drug Allergy Unknown N/A 07/06/2008 Yes Depakote ER NKMA N/A N/A 12/22/2014 Yes penicillin NKMA N/A N/A 12/22/2014 Yes Depakote - Oral Medication MED N/A N/A 12/28/2014 Yes Penicillins - CLASS Class MED N /A N/A 12/28/2014 Yes Depakote ER NKMA Medium [id number] 05/02/2015 Yes penicillin NKMA Severe 784.2 05/02/2015 Yes No Known Allergies No Known Allergies Drug Allergy Unknown N/A 2015 Yes Latex 403 N/A N/A 02/28/2016 Yes divalproex sodium divalproex sodium Drug Allergy Mild VOMITING 06/11/2017 Yes Penicillins Penicillins Drug Allergy Unknown THROAT SWELLING 06/11/2017 Yes latex latex Drug Allergy Unknown HIVES 10/17/2017 Yes penicillin G [id number] Drug Allergy Severe Throat Swelling 03/26/2018 Yes divalproex sodium [id number] Drug Allergy Unknown Vomiting 03/26/2018 Medications Medication [...] 0.5MG Take one tablet TID PRN for anxiety.[id number] 5 mg BID dose predniSONE(predniSONE) 1 tabs [...] ORAL 5MG TAKE 1 TABLET TWICE DAILY. [place] Carbonate 300 MG Oral Capsule 01/10/2016 03/11/2016 [...] mg=2 mL, IV Push, q6hr, PRN: Nausea HYDROcodone-acetaminophen([place] 5 mg-325 mg oral tablet) 1 tabs [...] ORAL 150MG TAKE 1/2 TABLET AT BEDTIME. [place] Carbonate 300 MG Oral Capsule 03/30/2016 05/30/2016 [...] ORAL 150MG TAKE 1/2 TABLET AT BEDTIME. [place] Carbonate 300 MG Oral Capsule 05/31/2016 07/01/2016 [...] ORAL 150MG TAKE 1/2 TABLET AT BEDTIME. 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 Edlatorre, Marilyn 02/09/2016 F F41.9 Anxiety disorder, unspecified [...] Final F17.210 Nicotine dependence, cigarettes, uncomplicated 03/06/2016 Srivatsava Stevie Final J45.909 Unspecified asthma, uncomplicated 03/06/2016 [...] adult 08/23/2016 Velazquez Jeremy Final Z79.899 Other residential (current) drug therapy 10/03/2016 Richar Pierce Final [...] M 12/27/2016 F F41.9 Anxiety disorder, unspecified [place], [facility] 12/27/2016 F F43.10 Post- traumatic stress disorder, unspecified [place], Kymberly 12/27/2016 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 [place], [facility] 12/27/2016 F F41.9 Anxiety [...] result negative 01/07/2018 Magallanes Howard Final 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 01/07/2018 Magallanes [...] MD Ot F41.9 ANXIETY DISORDER, UNSPECIFIED 07/16/2018 BREVIG MISSION MD, SALVATORE D Ot F43.10 POST-TRAUMATIC STRESS DISORDER, UNSPECIF 07/16/2018 SALVATORE MORROW MD Ot J45.909 UNSPECIFIED ASTHMA, UNCOMPLICATED 07/16/2018 SALVATROE MORROW MD Ot Z86.19 PERSONAL HISTORY OF [...] POST-TRAUMATIC STRESS DISORDER, UNSPECIF 07/22/2018 SALVATORE MORROW MD, Ot J45.909 UNSPECIFIED ASTHMA, UNCOMPLICATED 07/22/2018 SALVATORE MORROW MD Ot Z86.19 PERSONAL HISTORY OF OTHER INFECTIOUS AND 07/22/2018 SALVATORE MORROW MD Ot Z88.0 ALLERGY STATUS TO PENICILLIN 07/22/2018 SALVATORE MORROW MD Ot Z88.8 ALLERGY STATUS TO OTH DRUG/MEDS/BIOL SUB 07/22/2018 SALVATORE MORROW MD Ot Z91.5 PERSONAL HISTORY OF SELF-HARM 11/07/2018 Delaney Delane Final J42 Unspecified chronic bronchitis 11/07/2018 Delaney Delane Reason R05 Cough 11/28/2018 CHRIS OZUNA APRN Ot F31.9 BIPOLAR DISORDER, UNSPECIFIED 11/28/2018 CHRIS OZUNA APRN Ot F41.9 ANXIETY DISORDER, UNSPECIFIED 11/28/2018 CHRIS OZUNA APRN Ot F43.10 POST-TRAUMATIC STRESS DISORDER, UNSPECIF 11/28/2018 CHRIS OZUNA APRN Ot J45.909 UNSPECIFIED ASTHMA, UNCOMPLICATED 11/28/2018 CHRIS OZUNA APRN Ot O21.9 VOMITING OF , UNSPECIFIED 11/28/2018 CHRIS OZUNA APRN Ot O99.341 OTH MENTAL DISORDERS COMPLICATING PREGNA 11/28/2018 CHRIS OZUNA APRN Ot O99.511 DISEASES OF THE RESP SYS COMP , 11/28/2018 CHRIS OZUNA APRN Ot Z3A.12 12 WEEKS GESTATION OF 11/28/2018 CHRIS OZUNA APRN Ot Z77.22 CNTCT W AND EXPSR TO ENVIRON TOBACCO SMO 11/28/2018 CHRIS OZUNA APRN Ot Z86.19 PERSONAL HISTORY OF OTHER INFECTIOUS AND 11/28/2018 CHRIS OZUNA APRN Ot Z88.0 ALLERGY STATUS TO PENICILLIN 11/28/2018 CHRIS OZUNA APRN Ot Z88.8 ALLERGY STATUS TO OTH DRUG/MEDS/BIOL SUB 11/28/2018 CHRIS OZUNA APRN Ot Z91.5 PERSONAL HISTORY OF SELF-HARM 11/28/2018 CHRIS OZUNA APRN Ot Z98.890 OTHER SPECIFIED POSTPROCEDURAL STATES 12/03/2018 CHRIS OZUNA APRN Ot F31.9 BIPOLAR DISORDER, UNSPECIFIED 12/03/2018 CHRIS OZUNA APRN Ot F41.9 ANXIETY DISORDER, UNSPECIFIED 12/03/2018 CHRIS OZUNA APRN Ot F43.10 POST-TRAUMATIC STRESS DISORDER, UNSPECIF 12/03/2018 CHRIS OZUNA APRN Ot J45.909 UNSPECIFIED ASTHMA, UNCOMPLICATED 12/03/2018 CHRIS OZUNA APRN Ot O21.9 VOMITING OF , UNSPECIFIED 12/03/2018 CHRIS OZUNA APRN Ot O99.341 OTH MENTAL DISORDERS COMPLICATING PREGNA 12/03/2018 CHRIS OZUNA APRN Ot O99.511 DISEASES OF THE RESP SYS COMP , 12/03/2018 CHRIS OZUNA APRN Ot Z3A.12 12 WEEKS GESTATION OF 12/03/2018 CHRIS OZUNA STOCK FEEDER Ot Z77.22 CNTCT W AND EXPSR TO ENVIRON TOBACCO SMO 12/03/2018 CHRIS OZUNA APRN Ot Z86.19 PERSONAL HISTORY OF OTHER INFECTIOUS AND 12/03/2018 CHRIS OZUNA APRN Ot Z88.0 ALLERGY STATUS TO PENICILLIN 12/03/2018 CHRIS OZUNA APRN Ot Z88.8 ALLERGY STATUS TO OTH DRUG/MEDS/BIOL SUB 12/03/2018 CHRIS OZUNA STOCK FEEDER Ot Z91.5 PERSONAL HISTORY OF SELF-HARM 12/03/2018 CHRIS OZUNA STOCK FEEDER Ot Z98.890 OTHER SPECIFIED POSTPROCEDURAL STATES Procedures Code Description Performed By Performed On 73.59 MANUAL ASSIST DELIV NEC 09/01/2009 43244 OFFICE/OUTPATIENT VISIT, Carolina Appiahe A 09/30/2015 [id number] OFFICE/OUTPATIENT VISIT, Carolina Appiahe A 09/30/2015 30538 OFFICE/OUTPATIENT VISIT, GABI Hernandez Rosie A 10/20/2015 07338 OFFICE/OUTPATIENT VISIT, Carolina Appiahe A 10/20/2015 [id number] OFFICE/OUTPATIENT VISIT, Carolina Appiahe A 12/15/2015 42296 OFFICE/OUTPATIENT VISIT, GABI Hernandez Rosie A 12/15/2015 [id number] Aliza Rene 01/05/2016 21892 Aliza Rene 01/05/2016 54612 OFFICE/OUTPATIENT VISIT, GABI Hernandez Rosie A 01/10/2016 24591 OFFICE/OUTPATIENT VISIT, GABI Hernandez Rosie A 01/10/2016 03165 Aliza Rene 01/14/2016 45733 Aliza Rene 01/14/2016 H0036 Joey Krueger 01/27/2016 H0036 Joey Krueger 01/27/2016 26516 Aliza Rene 01/28/2016 26411 Aliza Rene 01/28/2016 36848 OFFICE/OUTPATIENT VISIT, Rosie Appiah 02/09/2016 95911 OFFICE/OUTPATIENT VISIT, GABI Hernandez, Rosie A 02/09/2016 40299 Anju , Aliza Ivette 02/10/2016 04850 Anju , Aliza Ivette 02/10/2016 H0036 Evans , Joey 02/24/2016 H0036 Evans , Joey 02/24/2016 H2011 Herl, Reginald W 03/06/2016 H2011 Herl, Reginald W 03/06/2016 02648 Anju , Aliza Ivette 03/14/2016 66807 Anju , Aliza Ivette 03/14/2016 33236 Anju , Aliza Ivette 03/28/2016 88244 Anju , Aliza Ivette 03/28/2016 55043 OFFICE/OUTPATIENT VISIT, GABI Hernandez, Rosie A 03/30/2016 19540 OFFICE/OUTPATIENT VISIT, GABI HearnkaitlinjuanitaSahni, Rosie A 03/30/2016 96281 Anju , Aliza Ivette 04/07/2016 33907 Anju , Aliza Ivette 04/07/2016 35043 Anju , Aliza Ivette 05/29/2016 99520 Anju , Aliza Ivette 05/29/2016 78712 OFFICE/OUTPATIENT VISIT, GABI Hernandez, Rosie A 05/31/2016 83535 OFFICE/OUTPATIENT VISIT, GABI Hernandez, Rosie A 05/31/2016 88551 Anju , Aliza Ivette 07/12/2016 55547 Anju , Aliza Ivette 07/12/2016 46144 OFFICE/OUTPATIENT VISIT, GABI HearnkaitlinjuanitaSahni Rosie A 07/31/2016 43351 OFFICE/OUTPATIENT VISIT, GABI JaraSahni, Rosie A 07/31/2016 80311 Laparoscopy, surgical; cholecystectomy with cholangiography.. 2015 24984 Office or other outpatient visit for the evaluation and management of a new patient, which requires Yunior Velazquez 10/06/2016 46569 Laparoscopy, surgical; cholecystectomy with cholangiography Yunior Velazquez 10/06/2016 28467 Laparoscopy, surgical; cholecystectomy with cholangiography Yunior Velazquez 10/20/2016 13918 Office or other outpatient visit for the evaluation and management of a new patient, which requires Yunior Velazquez 10/20/2016 29017 Anju Aliza Ayalaelle 11/07/2016 40905 Aliza Rene Ivette 11/07/2016 74244 Aleshia , Guillermoundrieka 12/27/2016 49712 Aleshia , Shaundrieka 12/27/2016 47405 Aleshia , Guillermoundrieka 01/03/2017 77729 [facility] , Siomararieka 01/03/2017 28116 EYE EXAM ESTABLISHED PAT 03/14/2017 90482 REFRACTION 03/14/2017 V2020 Vision svcs frames purchases 03/14/2017 V2100 Lens spher single plano 4.00 03/14/2017 V2103 Spherocylindr 4.00d/12- 2.00d 03/14/2017 V2782 Lens, 1.54-1.65 p/1.60- 1.79g 03/14/2017 VNOPP No Protection Plan 03/14/2017 73723 OFFICE/OUTPATIENT VISIT, Rosie Appiah 05/03/2017 [id number] OFFICE/OUTPATIENT VISIT, Rosie Appiah 05/03/2017 T1023 Gatekeeping Screen - Initial Bethany Gomez 11/28/2017 H2011 Crisis Intervention - Basic Ella Escalera 11/28/2017 H2011 Crisis Intervention - Advanced Lucy Pacheco 11/28/2017 H2011 Crisis Intervention - Advanced Lucy Pacheco 11/28/2017 H2011 Crisis Intervention - Intermediate Ella Escalera 11/28/2017 [id number] INITIAL HOSPITAL CARE Coyner, Sienna S 12/19/2017 64288 SUBSEQUENT HOSPITAL CARE Coyner, Sienna S 12/20/2017 10069 SUBSEQUENT HOSPITAL CARE Coyner, Sienna S 12/21/2017 54868 SUBSEQUENT HOSPITAL CARE Coyner, Sienna S 12/22/2017 84450 SUBSEQUENT HOSPITAL CARE Coyner, Sienna S 12/23/2017 33431 HOSPITAL DISCHARGE DAY Cosammier, Sienna S 12/24/2017 < section xmlns="urn:hl7-org:v3" xmlns:xsi="http://www.onlinetours3.org/2001/XMLSchema- instance"> <templateId root="[email or web address]" /> <templateId root="[id number]" /> <code codeSystemName="ARCHANA" codeSystem="[email or web address]" code="45560-1" displayName="Results" /> < title>Results</title> <text> <table> <thead> [...] <td>WBC</td> <td>5.0 K /uL</td> <td>4.8-10.8</td> </tr> <tr> < colspan="10">Glucose NPT - 08/16/16 16:59</th> </tr> <tr> <td>Glucose NPT</td> <td>84 mg/dL</td> <td>70-100</td> </tr> <tr> < colspan="10">Basic Metabolic Panel (BMP) - 08/17/16 18:11</th> [...] <td>Negative NA</td> <td> Negative</td> </tr> <tr> <td>Specific [place]</td> <td>1.020 NA</td> <td>1.003-1.030</td> </tr> <tr> <td>UA Collection type</td> <td>Clean Catch NA</td> < td /> </tr> <tr> <td>Urobilinogen</td> <td> Negative mg/dL</td> <td><1.0</td> </tr> <tr> < colspan="10"> Screen, Urine NPT - 02/09/17 09:17</th> [...] <td>Protein</td> <td>Negative NA</td> <td>Negative</td> </tr> <tr> <td>Specific [place]</td> <td>1.015 NA </td> <td>1.003-1.030</td> </tr> <tr> <td>UA [...] <td>Pos 2+ NA</td> <td>Negative</td> </tr> <tr> <td>Specific [place]</td> <td>1.015 NA</td > <td>1.003-1.030</td> </tr> <tr> <td>UA [...] <td>Protein</td> <td>Negative NA</td> <td>Negative</td> </tr> <tr> <td>Specific [place]</ td> <td>1.010 NA</td> <td>1.003-1.030</td> </tr> <tr> <td>UA Collection type</td> <td>Clean Catch NA</td> <td /> </tr> <tr> <td>Urobilinogen</td> < td>2.0 mg/dL</td> <td><1.0</td> </tr> <tr> < th colspan="10">Urine Microscopic - 08/05/17 11:26</th> </tr> <tr [...] <td>Pos 2+ NA</td> <td>Negative</td> </tr> <tr> <td>Specific [place]</td> <td>1.045 NA</td> <td>1.003- 1.030</td> </tr> <tr> <td>UA [...] Urine</td> <td>2 /HPF</td> <td>0-4</td> </tr> <tr> < th colspan="10">Urine Drug Screen - 11/21/17 01:06</th> </tr> [...] <td>Salicylate</td> <td><4 mg/dL</td> <td>0-30</td> </tr> <tr> < colspan="10">Acetaminophen - 11/21/17 01:06</th> </tr> <tr> <td>Acetaminophen</td> <td>277 mcg/ mL</td> <td>10-30</td> </tr> <tr> < colspan= "10">Comprehensive Metabolic Panel (CMP) - 11/21/17 [...] <td>Sodium</td> <td> 139 mEq/L</td> <td>136-144</td> </tr> <tr> < colspan="10">Acetaminophen - 11/21/17 11:53</th> </tr> <tr> <td>Acetaminophen</td> <td>45 mcg/mL</td> <td>10-30</td> </tr> <tr> < colspan="10">eGFR - 11/21/17 11:53</th> </tr> <tr> <td>eGFR</td> [...] <td>Protein</td> <td>Negative NA</td> <td>Negative</td> </tr> <tr> <td>Specific [place] </td> <td>1.025 NA</td> <td>1.003-1.030</td> </tr> <tr> <td>UA [...] <td>WBC</td> <td>4.2 K/uL</td> <td> 4.8-10.8</td> </tr> <tr> < colspan="10">Comprehensive Metabolic Panel (CMP) - 12/16/17 10:44</th> [...] T4</td> <td>0.55 uIU/mL</ td> <td>0.35-4.94</td> </tr> <tr> < colspan= "10">Creatine Kinase (CPK) - 12/16/17 10:44</th> </tr> <tr> <td>Creatine Kinase (CPK)</td> <td>74 U/L</td> <td>38-234< /td> </tr> <tr> < colspan="10">Hepatitis Panel - 10:44</th> </tr> <tr> <td>Hepatitis A Antibody IGM</td > <td>Negative </td> <td /> </tr> <tr> <td>Hepatitis B Surface Antigen</td> <td>Negative </td> <td / > </tr> <tr> < colspan="10"> Screen, Urine NPT - 01/04/18 10:25</th> </tr> <tr> <td> Screen , Urine NPT</td> <td>Negative NA</td> <td /> </tr> <tr> < colspan="10">Urinalysis with reflex microscopic - 10:32</th> </tr> [...] <td>Protein</td> <td>Negative NA</td> <td>Negative</td> </tr> <tr> <td>Specific [place]</td> <td>1.020 NA</td> <td>1.003-1.030 </td> </tr> <tr> <td>UA [...] (count/volume)</td> <td>0.1 10*3/uL</td > <td>0.0-0.1</td> </tr> <tr> < colspan="10"> Comprehensive metabolic panel - 03/26/18 00:50</th> [...] (mass/volume)</td > <td>4.3 g/dL</td> <td>3.2-4.5</td> </tr> <tr> <th colspan="10">Serum or plasma salicylates measurement (mass/volume ) - 03/26/18 00:50</th> </tr> <tr> <td>Serum or plasma salicylates measurement (mass/volume)</td> <td>< mg/dL</td> <td>5.0-20.0</td> </tr> <tr> <th colspan="10">Serum or plasma acetaminophen measurement (mass/volume) - 03/26/18 00:50</th> </tr > <tr> <td>Serum or plasma acetaminophen measurement (mass/ volume)</td> <td>< ug/mL</td> <td>10-30</td> </tr> <tr> <th colspan="10">Serum or plasma ethanol measurement (mass/ volume) [...] detection</td> <td>NEGATIVE </td> <td> NEGATIVE</td> </tr> <tr> < colspan="10">Bacterial urine culture - 03/26/18 01:20</th> </tr> <tr> <td> Bacterial urine culture</td> <td>SEE COMMEN </td> <td>NRG</td > </tr> <tr> <td>COLONY COUNT</td> <td>. </td> <td>NRG</td> </tr> <tr> < colspan="10"> Methicillin resistant Staphylococcus aureus (MRSA) screening culture - 03/26/18 03:30</th> </tr> <tr> <td>Methicillin resistant Staphylococcus aureus (MRSA) screening culture</td> <td>NEG </td> <td>NRG</td> </tr> <tr> < colspan="10">Urine drug screening test - 11/28/18 14:00</th> </tr> <tr> <td> Urine phencyclidine detection by [...] detection</td> <td>NEGATIVE </td> <td> NEGATIVE</td> </tr> <tr> < colspan="10">Complete urinalysis with reflex to culture - 11/28/18 14:00</th> </tr> <tr > <td>Urine color determination</td> <td>YELLOW </td> <td>NRG</td> </tr> <tr> <td>Urine clarity determination </td> <td>CLEAR </td> <td>NRG</td> </tr> <tr> <td>Urine pH measurement by test strip</td> <td>8 </td> <td>5-9</td> </tr> <tr> <td>Specific gravity of urine by test strip</td> <td>1.015 </td> <td>1.016-1.022</td> </tr> <tr> <td>Urine protein assay by test strip, semi- quantitative</td> <td>NEGATIVE </td> <td>NEGATIVE</td> </tr> <tr> <td>Urine glucose detection by automated test strip</ td> <td>NEGATIVE </td> <td>NEGATIVE</td> </tr> < tr> <td>Erythrocytes detection in urine sediment by light microscopy</ td> <td>NEGATIVE </td> <td>NEGATIVE</td> </tr> < tr> <td>Urine ketones detection by automated test strip</td> < td>NEGATIVE </td> <td>NEGATIVE</td> </tr> <tr> < td>Urine nitrite detection by test strip</td> <td>NEGATIVE </td> <td>NEGATIVE</td> </tr> <tr> <td>Urine total bilirubin detection by test strip</td> <td>NEGATIVE </td> <td> NEGATIVE</td> </tr> <tr> <td>Urine urobilinogen measurement by automated test strip (mass/volume)</td> <td>NORMAL </td > <td>NORMAL</td> </tr> <tr> <td>Urine leukocyte esterase detection by dipstick</td> <td>1+ </td> <td >NEGATIVE</td> </tr> <tr> <td>Automated urine sediment erythrocyte count by microscopy (number/high power field)</td> <td> NONE </td> <td>NRG</td> </tr> <tr> <td> Automated urine sediment leukocyte count by microscopy (number/high power field) </td> <td> [HPF]</td> <td>NRG</td> </tr> <tr> <td>Bacteria detection in urine sediment by light microscopy</td> <td>TRACE </td> <td>NRG</td> </tr> <tr> <td> Squamous epithelial cells detection in urine sediment by light microscopy</td> <td>10-25 </td> <td>NRG</td> </tr> <tr> <td>Crystals detection in urine sediment by light microscopy</td> <td >NONE </td> <td>NRG</td> </tr> <tr> <td>Casts detection in urine sediment by light microscopy</td> <td>NONE </td> <td>NRG</td> </tr> <tr> <td>Mucus detection in urine sediment by light microscopy</td> <td>NEGATIVE </td> <td >NRG</td> </tr> <tr> <td>Complete urinalysis with reflex to culture</td> <td>NO </td> <td>NRG</td> </tr> <tr> <td>Renal epithelial cells detection in urine sediment by light microscopy</td> <td>NONE </td> <td>NRG</td> </tr> <tr> <th colspan="10">Complete blood count (CBC) with automated white blood cell (WBC) differential - 11/28/18 14:20</th> </tr> < tr> <td>Blood leukocytes automated count (number/volume)</td> <td>8.2 10*3/uL</td> <td>4.3-11.0</td> </tr> <tr> <td>Blood erythrocytes automated count (number/volume)</td> <td> 4.30 10*6/uL</td> <td>4.35-5.85</td> </tr> <tr> <td>Venous blood hemoglobin measurement (mass/volume)</td> <td>13.9 g/ dL</td> <td>11.5-16.0</td> </tr> <tr> <td>Blood hematocrit (volume fraction)</td> <td>40 %</td> <td>35-52< /td> </tr> <tr> <td>Automated erythrocyte mean corpuscular volume</td> <td>93 [foz_us]</td> <td>80-99</td> </tr> <tr> <td>Automated erythrocyte mean corpuscular hemoglobin (mass per erythrocyte)</td> <td>32 pg</td> <td>25- 34</td> </tr> <tr> <td>Automated erythrocyte mean corpuscular hemoglobin concentration measurement (mass/volume)</td> <td >35 g/dL</td> <td>32-36</td> </tr> <tr> <td> Automated erythrocyte distribution width ratio</td> <td>12.7 %</td > <td>10.0-14.5</td> </tr> <tr> <td>Automated blood platelet count (count/volume)</td> <td>215 10*3/uL</td> <td>130-400</td> </tr> <tr> <td>Automated blood platelet mean volume measurement</td> <td>9.9 [foz_us]</td> <td>7.4- 10.4</td> </tr> <tr> <td>Automated blood neutrophils/100 leukocytes</td> <td>78 %</td> <td>42-75</td> </tr> <tr> <td>Automated blood lymphocytes/100 leukocytes</td> <td>11 %</td> <td>12-44</td> </tr> <tr> <td>Blood monocytes/100 leukocytes</td> <td>5 %</td> <td>0 -12</td> </tr> <tr> <td>Automated blood eosinophils/100 leukocytes</td> <td>6 %</td> <td>0-10</td> </tr> <tr> <td>Automated blood basophils/100 leukocytes</td> < td>0 %</td> <td>0-10</td> </tr> <tr> <td> Blood neutrophils automated count (number/volume)</td> <td>6.4 10*3</td > <td>1.8-7.8</td> </tr> <tr> <td>Blood lymphocytes automated count (number/volume)</td> <td>0.9 10*3</td> <td>1.0-4.0</td> </tr> <tr> <td>Blood monocytes automated count (number/volume)</td> <td>0.4 10*3</td> <td>0.0 -1.0</td> </tr> <tr> <td>Automated eosinophil count</td> <td>0.5 10*3/uL</td> <td>0.0-0.3</td> </tr> <tr > <td>Automated blood basophil count (count/volume)</td> <td> 0.0 10*3/uL</td> <td>0.0-0.1</td> </tr> <tr> < th colspan="10">Comprehensive metabolic panel - 11/28/18 14:20</th> </tr > <tr> <td>Serum or plasma sodium measurement (moles/volume)</td > <td>135 mmol/L</td> <td>135-145</td> </tr> <tr > <td>Serum or plasma potassium measurement (moles/volume)</td> <td>3.7 mmol/L</td> <td>3.6-5.0</td> </tr> <tr> <td>Serum or plasma chloride measurement (moles/volume)</td> <td> 107 mmol/L</td> <td>98-107</td> </tr> <tr> <td> Carbon dioxide</td> <td>23 mmol/L</td> <td>21-32</td> < /tr> <tr> <td>Serum or plasma anion gap determination (moles/ volume)</td> <td>5 mmol/L</td> <td>5-14</td> </tr> <tr> <td>Serum or plasma urea nitrogen measurement (mass/volume)</ td> <td>5 mg/dL</td> <td>7-18</td> </tr> <tr> <td>Serum or plasma creatinine measurement (mass/volume)</td> < td>0.61 mg/dL</td> <td>0.60-1.30</td> </tr> <tr> <td>Serum or plasma urea nitrogen/creatinine mass ratio</td> <td>8 </ td> <td>NRG</td> </tr> <tr> <td>Serum or plasma creatinine measurement with calculation of estimated glomerular filtration rate< /td> <td>> </td> <td>NRG</td> </tr> <tr> <td>Serum or plasma glucose measurement (mass/volume)</td> <td> 88 mg/dL</td> <td>70-105</td> </tr> <tr> <td> Serum or plasma calcium measurement (mass/volume)</td> <td>8.5 mg/dL</ td> <td>8.5-10.1</td> </tr> <tr> <td>Serum or plasma total bilirubin measurement (mass/volume)</td> <td>0.5 mg/dL</td > <td>0.1-1.0</td> </tr> <tr> <td>Serum or plasma alkaline phosphatase measurement (enzymatic activity/volume)</td> <td>48 U/L</td> <td>40-136</td> </tr> <tr> < td>Serum or plasma aspartate aminotransferase measurement (enzymatic activity/ volume)</td> <td>14 U/L</td> <td>5-34</td> </tr> <tr> <td>Serum or plasma alanine aminotransferase measurement ( enzymatic activity/volume)</td> <td>10 U/L</td> <td>0-55</td> </tr> <tr> <td>Serum or plasma protein measurement (mass /volume)</td> <td>6.5 g/dL</td> <td>6.4-8.2</td> </tr> <tr> <td>Serum or plasma albumin measurement (mass/volume)</td > <td>4.0 g/dL</td> <td>3.2-4.5</td> </tr> <tr> <td>CALCIUM CORRECTED</td> <td>8.5 mg/dL</td> <td> 8.5-10.1</td> </tr> <tr> <th colspan="10">Serum or plasma choriogonadotropin measurement (units/volume) - 11/28/18 14:20</th> </tr> <tr> <td>Serum or plasma choriogonadotropin measurement (units/volume)</td> <td>73965 m[iU]/mL</td> <td>& lt;5</td> </tr> <tr> <th colspan="10">Complete blood count (CBC) with automated white blood cell (WBC) differential - 12/11/18 18:35< /th> </tr> <tr> <td>Blood leukocytes automated count ( number/volume)</td> <td>9.2 10*3/uL</td> <td>4.3-11.0</td> </tr> <tr> <td>Blood erythrocytes automated count (number/ volume)</td> <td>4.27 10*6/uL</td> <td>4.35-5.85</td> < /tr> <tr> <td>Venous blood hemoglobin measurement (mass/volume)< /td> <td>13.8 g/dL</td> <td>11.5-16.0</td> </tr> <tr> <td>Blood hematocrit (volume fraction)</td> <td>39 &#37 ;</td> <td>35-52</td> </tr> <tr> <td>Automated erythrocyte mean corpuscular volume</td> <td>92 [foz_us]</td> <td>80-99</td> </tr> <tr> <td>Automated erythrocyte mean corpuscular hemoglobin (mass per erythrocyte)</td> <td>32 pg</td> <td>25-34</td> </tr> <tr> <td>Automated erythrocyte mean corpuscular hemoglobin concentration measurement (mass/volume)</td> <td>35 g/dL</td> <td>32-36</td> </tr> <tr> < td>Automated erythrocyte distribution width ratio</td> <td>12.7 %</ td> <td>10.0-14.5</td> </tr> <tr> <td>Automated blood platelet count (count/volume)</td> <td>271 10*3/uL</td> <td>130-400</td> </tr> <tr> <td>Automated blood platelet mean volume measurement</td> <td>9.6 [foz_us]</td> <td>7.4- 10.4</td> </tr> <tr> <td>Automated blood neutrophils/100 leukocytes</td> <td>60 %</td> <td>42-75</td> </tr> <tr> <td>Automated blood lymphocytes/100 leukocytes</td> <td>24 %</td> <td>12-44</td> </tr> <tr> <td>Blood monocytes/100 leukocytes</td> <td>8 %</td> <td>0 -12</td> </tr> <tr> <td>Automated blood eosinophils/100 leukocytes</td> <td>8 %</td> <td>0-10</td> </tr> <tr> <td>Automated blood basophils/100 leukocytes</td> < td>0 %</td> <td>0-10</td> </tr> <tr> <td> Blood neutrophils automated count (number/volume)</td> <td>5.5 10*3</td > <td>1.8-7.8</td> </tr> <tr> <td>Blood lymphocytes automated count (number/volume)</td> <td>2.2 10*3</td> <td>1.0-4.0</td> </tr> <tr> <td>Blood monocytes automated count (number/volume)</td> <td>0.8 10*3</td> <td>0.0 -1.0</td> </tr> <tr> <td>Automated eosinophil count</td> <td>0.7 10*3/uL</td> <td>0.0-0.3</td> </tr> <tr > <td>Automated blood basophil count (count/volume)</td> <td> 0.0 10*3/uL</td> <td>0.0-0.1</td> </tr> <tr> < th colspan="10">Influenza virus A and B antigen detection - 12/11/18 18:35</th> </tr> <tr> <td>FLU RESULT</td> <td>NEGATIVE FOR INFLUENZA A AND B ANTIGENS BY IA </td> <td>NRG</td> </tr> <tr> <th colspan="10">Comprehensive metabolic panel - 12/11/18 18 :35</th> </tr> <tr> <td>Serum or plasma sodium measurement (moles/volume)</td> <td>138 mmol/L</td> <td>135- 145</td> </tr> <tr> <td>Serum or plasma potassium measurement (moles/volume)</td> <td>3.9 mmol/L</td> <td>3.6- 5.0</td> </tr> <tr> <td>Serum or plasma chloride measurement (moles/volume)</td> <td>105 mmol/L</td> <td>98-107 </td> </tr> <tr> <td>Carbon dioxide</td> <td>22 mmol/L</td> <td>21-32</td> </tr> <tr> <td>Serum or plasma anion gap determination (moles/volume)</td> <td>11 mmol/L</td > <td>5-14</td> </tr> <tr> <td>Serum or plasma urea nitrogen measurement (mass/volume)</td> <td>9 mg/dL</td> <td>7-18</td> </tr> <tr> <td>Serum or plasma creatinine measurement (mass/volume)</td> <td>0.57 mg/dL</td> <td>0.60- 1.30</td> </tr> <tr> <td>Serum or plasma urea nitrogen/ creatinine mass ratio</td> <td>16 </td> <td>NRG</td> </ tr> <tr> <td>Serum or plasma creatinine measurement with calculation of estimated glomerular filtration rate</td> <td>> </td > <td>NRG</td> </tr> <tr> <td>Serum or plasma glucose measurement (mass/volume)</td> <td>81 mg/dL</td> <td> 70-105</td> </tr> <tr> <td>Serum or plasma calcium measurement (mass/volume)</td> <td>9.7 mg/dL</td> <td>8.5-10.1 </td> </tr> <tr> <td>Serum or plasma total bilirubin measurement (mass/volume)</td> <td>0.2 mg/dL</td> <td>0.1-1.0< /td> </tr> <tr> <td>Serum or plasma alkaline phosphatase measurement (enzymatic activity/volume)</td> <td>55 U/L</td> < td>40-136</td> </tr> <tr> <td>Serum or plasma aspartate aminotransferase measurement (enzymatic activity/volume)</td> <td>17 U/ L</td> <td>5-34</td> </tr> <tr> <td>Serum or plasma alanine aminotransferase measurement (enzymatic activity/volume)</td> <td>9 U/L</td> <td>0-55</td> </tr> <tr> < td>Serum or plasma protein measurement (mass/volume)</td> <td>6.8 g/dL< /td> <td>6.4-8.2</td> </tr> <tr> <td>Serum or plasma albumin measurement (mass/volume)</td> <td>4.1 g/dL</td> <td>3.2-4.5</td> </tr> <tr> <td>CALCIUM CORRECTED</td > <td>9.6 mg/dL</td> <td>8.5-10.1</td> </tr> <tr > < colspan="10">Serum or plasma amylase measurement (enzymatic activity/volume) - 12/11/18 18:35</th> </tr> <tr> <td> Serum or plasma amylase measurement (enzymatic activity/volume)</td> < td>40 U/L</td> <td>25-125</td> </tr> <tr> < colspan="10">Lipase - 12/11/18 18:35</th> </tr> <tr> <td> Lipase</td> <td>23 U/L</td> <td>8-78</td> </tr> <tr> < colspan="10">Urine drug screening test - 12/11/18 18:41</th> </tr> <tr> <td>Urine phencyclidine detection by screening method</td> <td>NEGATIVE </td> <td>NEGATIVE</td> </tr> <tr> <td>Urine benzodiazepines detection by screening method</td> <td>NEGATIVE </td> <td>NEGATIVE</td> </tr> <tr> <td>Urine cocaine detection</td> <td> NEGATIVE </td> <td>NEGATIVE</td> </tr> <tr> <td> Urine amphetamines detection by screening method</td> <td>NEGATIVE </td > <td>NEGATIVE</td> </tr> <tr> <td>Urine methamphetamine detection by screening method</td> <td>NEGATIVE </td> <td>NEGATIVE</td> </tr> <tr> <td>Urine cannabinoids detection by screening method</td> <td>NEGATIVE </td> <td>NEGATIVE</td> </tr> <tr> <td>Urine opiates detection by screening method</td> <td>NEGATIVE </td> <td> NEGATIVE</td> </tr> <tr> <td>Urine barbiturates detection </td> <td>NEGATIVE </td> <td>NEGATIVE</td> </tr> <tr> <td>Screening urine tricyclic antidepressants detection</td> <td>NEGATIVE </td> <td>NEGATIVE</td> </tr> <tr> <td>Urine methadone detection by screening method</td> <td> NEGATIVE </td> <td>NEGATIVE</td> </tr> <tr> <td> Urine oxycodone detection</td> <td>NEGATIVE </td> <td>NEGATIVE </td> </tr> <tr> <td>Urine propoxyphene detection</td> <td>NEGATIVE </td> <td>NEGATIVE</td> </tr> <tr> < colspan="10">Complete urinalysis with reflex to culture - 12/11/18 18:41</th> </tr> <tr> <td>Urine color determination</td> <td>YELLOW </td> <td>NRG</td> </tr> <tr> <td>Urine clarity determination</td> <td>CLEAR </td> <td> NRG</td> </tr> <tr> <td>Urine pH measurement by test strip</td> <td>7 </td> <td>5-9</td> </tr> <tr> <td>Specific gravity of urine by test strip</td> <td>1.005 </ td> <td>1.016-1.022</td> </tr> <tr> <td>Urine protein assay by test strip, semi-quantitative</td> <td>NEGATIVE </td> <td>NEGATIVE</td> </tr> <tr> <td>Urine glucose detection by automated test strip</td> <td>NEGATIVE </td> <td> NEGATIVE</td> </tr> <tr> <td>Erythrocytes detection in urine sediment by light microscopy</td> <td>NEGATIVE </td> <td >NEGATIVE</td> </tr> <tr> <td>Urine ketones detection by automated test strip</td> <td>NEGATIVE </td> <td>NEGATIVE</td > </tr> <tr> <td>Urine nitrite detection by test strip</ td> <td>NEGATIVE </td> <td>NEGATIVE</td> </tr> < tr> <td>Urine total bilirubin detection by test strip</td> <td >NEGATIVE </td> <td>NEGATIVE</td> </tr> <tr> <td >Urine urobilinogen measurement by automated test strip (mass/volume)</td> <td>NORMAL </td> <td>NORMAL</td> </tr> <tr> <td>Urine leukocyte esterase detection by dipstick</td> <td>NEGATIVE </td> <td>NEGATIVE</td> </tr> <tr> <td> Automated urine sediment erythrocyte count by microscopy (number/high power field)</td> <td>NONE </td> <td>NRG</td> </tr> < tr> <td>Automated urine sediment leukocyte count by microscopy (number/ high power field)</td> <td> [HPF]</td> <td>NRG</td> </ tr> <tr> <td>Bacteria detection in urine sediment by light microscopy</td> <td>FEW </td> <td>NRG</td> </tr> <tr> <td>Squamous epithelial cells detection in urine sediment by light microscopy</td> <td>0-2 </td> <td>NRG</td> </tr> <tr> <td>Crystals detection in urine sediment by light microscopy</td> <td>NONE </td> <td>NRG</td> </tr> <tr> <td>Casts detection in urine sediment by light microscopy</td> <td>NONE </td> <td>NRG</td> </tr> <tr> <td>Mucus detection in urine sediment by light microscopy</td> <td> NEGATIVE </td> <td>NRG</td> </tr> <tr> <td> Complete urinalysis with reflex to culture</td> <td>NO </td> < td>NRG</td> </tr> </tbody> </table> </text> <entry> < organizer moodCode="EVN" classCode="BATTERY"> <templateId root= "11.30.840.1.376447.10...4.1" /> <id nullFlavor="NA" /> <code codeSystem="local" code="PREGU" displayName="UR TEST" /> < statusCode code="completed" /> <component> <observation moodCode= "EVN" classCode="OBS"> <templateId root="11.30.840.1.375113.10...4.2 " /> <id nullFlavor="NA" /> <code codeSystem="local" code= "PREGU" displayName="UR TEST" /> <statusCode code="completed " /> <effectiveTime value="660461600120" /> <value unit="" xsi :type="PQ" value="POSITIVE" /> <interpretationCode codeSystem="local" code="*" /> <referenceRange> <observationRange> <text>NEGATIVE</text> </observationRange> </referenceRange > </observation> </component> </organizer> </entry> <entry> <organizer moodCode="EVN" classCode="BATTERY"> <templateId root= "11.30.840.1.326305.10...4.1" /> <id nullFlavor="NA" /> <code codeSystem="local" code="UA" displayName="URINALYSIS, ROUTINE" /> < statusCode code="completed" /> <component> <observation moodCode= "EVN" classCode="OBS"> <templateId root="11.30.840.1.851398.08.03.22.4.2 " /> <id nullFlavor="NA" /> <code codeSystem="local" code= "LEUESU" displayName="UA LEUKOCYTE ESTERASE DIPSTICK" /> <statusCode code="completed" /> <effectiveTime value="217226124103" /> < value unit="" xsi:type="PQ" value="NEGATIVE" /> <referenceRange> <observationRange> <text>NEGATIVE</text> </ observationRange> </referenceRange> </observation> </ component> <component> <observation moodCode="EVN" classCode="OBS"> <templateId root="216.840.1.176143.08.03.22.4.2" /> <id nullFlavor="NA" /> <code codeSystem="local" code="NITRIU" displayName= "UA NITRITE DIPSTICK" /> <statusCode code="completed" /> < effectiveTime value="846367446414" /> <value unit="" xsi:type="PQ" value="NEGATIVE" /> <referenceRange> <observationRange> <text>NEGATIVE</text> </observationRange> </ referenceRange> </observation> </component> <component> <observation moodCode="EVN" classCode="OBS"> <templateId root= "216.840.1.395845.08.03.22.4.2" /> <id nullFlavor="NA" /> < code codeSystem="local" code="PROTEIU" displayName="UA PROTEIN DIPSTICK" /> <statusCode code="completed" /> <effectiveTime value= "129195821912" /> <value unit="" xsi:type="PQ" value="NEGATIVE" /> <referenceRange> <observationRange> <text>NEGATIVE </text> </observationRange> </referenceRange> </ observation> </component> <component> <observation moodCode= "EVN" classCode="OBS"> <templateId root="216.840.1.320487.10..22.4.2 " /> <id nullFlavor="NA" /> <code codeSystem="local" code= "DGLUU" displayName="UA GLUCOSE DIPSTICK" /> <statusCode code= "completed" /> <effectiveTime value="469285494584" /> <value unit="" xsi:type="PQ" value="NEGATIVE" /> <referenceRange> < observationRange> <text>NEGATIVE</text> </ observationRange> </referenceRange> </observation> </ component> <component> <observation moodCode="EVN" classCode="OBS"> <templateId root="216.840.1.979610.10..4.2" /> <id nullFlavor="NA" /> <code codeSystem="local" code="KETONU" displayName= "UA KETONE DIPSTICK" /> <statusCode code="completed" /> < effectiveTime value="505114279492" /> <value unit="" xsi:type="PQ" value="NEGATIVE" /> <referenceRange> <observationRange> <text>NEGATIVE</text> </observationRange> </ referenceRange> </observation> </component> <component> <observation moodCode="EVN" classCode="OBS"> <templateId root= "16.840.1.138684.08.03.22.4.2" /> <id nullFlavor="NA" /> < code codeSystem="local" code="UROBILU" displayName="UA UROBILINOGEN DIPSTICK" / > <statusCode code="completed" /> <effectiveTime value= "173201437211" /> <value unit="" xsi:type="PQ" value="NORMAL" /> <referenceRange> <observationRange> <text>NORMAL</ text> </observationRange> </referenceRange> </ observation> </component> <component> <observation moodCode= "EVN" classCode="OBS"> <templateId root="216.840.1.858051.10..22.4.2 " /> <id nullFlavor="NA" /> <code codeSystem="local" code= "BILU" displayName="UA BILIRUBIN DIPSTICK" /> <statusCode code= "completed" /> <effectiveTime value="" /> <value unit="" xsi:type="PQ" value="NEGATIVE" /> <referenceRange> < observationRange> <text>NEGATIVE</text> </ observationRange> </referenceRange> </observation> </ component> <component> <observation moodCode="EVN" classCode="OBS"> <templateId root="216.840.1.923495.10...4.2" /> <id nullFlavor="NA" /> <code codeSystem="local" code="ABDELRAHMAN" displayName="UA BLOOD DIPSTICK" /> <statusCode code="completed" /> < effectiveTime value="" /> <value unit="" xsi:type="PQ" value="NEGATIVE" /> <referenceRange> <observationRange> <text>NEGATIVE</text> </observationRange> </ referenceRange> </observation> </component> <component> <observation moodCode="EVN" classCode="OBS"> <templateId root= "16.840.1.308006.10..22.4.2" /> <id nullFlavor="NA" /> < code codeSystem="local" code="SPGRU" displayName="UA SPECIFIC GRAVITY" /> <statusCode code="completed" /> <effectiveTime value="165491333847 " /> <value unit="" xsi:type="PQ" value="1.007" /> < interpretationCode codeSystem="local" code="*" /> <referenceRange> <observationRange> <text>1.015-1.025</text> </ observationRange> </referenceRange> </observation> </ component> <component> <observation moodCode="EVN" classCode="OBS"> <templateId root="16.840.1.549397.10.20.22.4.2" /> <id nullFlavor="NA" /> <code codeSystem="local" code="COLTON" displayName="UR PH" /> <statusCode code="completed" /> <effectiveTime value= "054390129438" /> <value unit="" xsi:type="PQ" value="5.0" /> <referenceRange> <observationRange> <text>5.0-7.0</text > </observationRange> </referenceRange> </observation > </component> </organizer> </entry> <entry> <organizer moodCode= "EVN" classCode="BATTERY"> <templateId root="11.30.840.1.331837.10..22.4.1 " /> <id nullFlavor="NA" /> <code codeSystem="local" code="UA" displayName="URINALYSIS, ROUTINE" /> <statusCode code="completed" /> < component> <observation moodCode="EVN" classCode="OBS"> < templateId root="11.30.840.1.011105.1022.4.2" /> <id nullFlavor="NA " /> <code codeSystem="local" code="LEUESU" displayName="UA LEUKOCYTE ESTERASE DIPSTICK" /> <statusCode code="completed" /> < effectiveTime value="389974038111" /> <value unit="" xsi:type="PQ" value="1+" /> <interpretationCode codeSystem="local" code="*" /> <referenceRange> <observationRange> <text>NEGATIVE</ text> </observationRange> </referenceRange> </ observation> </component> <component> <observation moodCode= "EVN" classCode="OBS"> <templateId root="216.840.1.794818.10.4.2 " /> <id nullFlavor="NA" /> <code codeSystem="local" code= "NITRIU" displayName="UA NITRITE DIPSTICK" /> <statusCode code= "completed" /> <effectiveTime value="" /> <value unit="" xsi:type="PQ" value="NEGATIVE" /> <referenceRange> < observationRange> <text>NEGATIVE</text> </ observationRange> </referenceRange> </observation> </ component> <component> <observation moodCode="EVN" classCode="OBS"> <templateId root="11.30.840.1.193681.08.03.224.2" /> <id nullFlavor="NA" /> <code codeSystem="local" code="PROTEIU" displayName= "UA PROTEIN DIPSTICK" /> <statusCode code="completed" /> < effectiveTime value="" /> <value unit="" xsi:type="PQ" value="TRACE" /> <interpretationCode codeSystem="local" code="*" /> <referenceRange> <observationRange> <text> NEGATIVE</text> </observationRange> </referenceRange> </observation> </component> <component> <observation moodCode ="EVN" classCode="OBS"> <templateId root= "16.840.1.999086.08.03.22.4.2" /> <id nullFlavor="NA" /> < code codeSystem="local" code="DGLUU" displayName="UA GLUCOSE DIPSTICK" /> <statusCode code="completed" /> <effectiveTime value="297697404693 " /> <value unit="" xsi:type="PQ" value="NEGATIVE" /> < referenceRange> <observationRange> <text>NEGATIVE</text > </observationRange> </referenceRange> </observation > </component> <component> <observation moodCode="EVN" classCode="OBS"> <templateId root="216.840.1.601075.10..4.2" /> <id nullFlavor="NA" /> <code codeSystem="local" code="KETONU" displayName="UA KETONE DIPSTICK" /> <statusCode code="completed" /> <effectiveTime value="" /> <value unit="" xsi:type= "PQ" value="TRACE" /> <interpretationCode codeSystem="local" code="*" / > <referenceRange> <observationRange> <text> NEGATIVE</text> </observationRange> </referenceRange> </observation> </component> <component> <observation moodCode ="EVN" classCode="OBS"> <templateId root= "11.30.840.1.010490.10.4.2" /> <id nullFlavor="NA" /> < code codeSystem="local" code="UROBILU" displayName="UA UROBILINOGEN DIPSTICK" / > <statusCode code="completed" /> <effectiveTime value= "932168226902" /> <value unit="" xsi:type="PQ" value="NORMAL" /> <referenceRange> <observationRange> <text>NORMAL</ text> </observationRange> </referenceRange> </ observation> </component> <component> <observation moodCode= "EVN" classCode="OBS"> <templateId root="216.840.1.255693.10..4.2 " /> <id nullFlavor="NA" /> <code codeSystem="local" code= "BILU" displayName="UA BILIRUBIN DIPSTICK" /> <statusCode code= "completed" /> <effectiveTime value="446028328346" /> <value unit="" xsi:type="PQ" value="NEGATIVE" /> <referenceRange> < observationRange> <text>NEGATIVE</text> </ observationRange> </referenceRange> </observation> </ component> <component> <observation moodCode="EVN" classCode="OBS"> <templateId root="216.840.1.366119.10..22.4.2" /> <id nullFlavor="NA" /> <code codeSystem="local" code="ABDELRAHMAN" displayName="UA BLOOD DIPSTICK" /> <statusCode code="completed" /> < effectiveTime value="770545969053" /> <value unit="" xsi:type="PQ" value="4+" /> <interpretationCode codeSystem="local" code="*" /> <referenceRange> <observationRange> <text>NEGATIVE</ text> </observationRange> </referenceRange> </ observation> </component> <component> <observation moodCode= "EVN" classCode="OBS"> <templateId root="2.16.840.1.495093.10..22.4.2 " /> <id nullFlavor="NA" /> <code codeSystem="local" code= "SPGRU" displayName="UA SPECIFIC GRAVITY" /> <statusCode code= "completed" /> <effectiveTime value="503304080173" /> <value unit="" xsi:type="PQ" value="1.010" /> <interpretationCode codeSystem= "local" code="*" /> <referenceRange> <observationRange> <text>1.015-1.025</text> </observationRange> </ referenceRange> </observation> </component> <component> <observation moodCode="EVN" classCode="OBS"> <templateId root= "11.30.840.1.434690.10..22.4.2" /> <id nullFlavor="NA" /> < code codeSystem="local" code="COLTON" displayName="UR PH" /> <statusCode code="completed" /> <effectiveTime value="155664757462" /> < value unit="" xsi:type="PQ" value="7.0" /> <referenceRange> <observationRange> <text>5.0-7.0</text> </ observationRange> </referenceRange> </observation> </ component> </organizer> </entry> <entry> <organizer moodCode="EVN" classCode="BATTERY"> <templateId root="11.30.840.1.380685.10..22.4.1" /> <id nullFlavor="NA" /> <code codeSystem="local" code="UAMICRO" displayName="UA MICROSCOPIC" /> <statusCode code="completed" /> < component> <observation moodCode="EVN" classCode="OBS"> < templateId root="11.30.840.1.182115.10..22.4.2" /> <id nullFlavor="NA " /> <code codeSystem="local" code="EPIU" displayName="UA EPITHELIAL CELLS" /> <statusCode code="completed" /> <effectiveTime value ="643571554354" /> <value unit="epi/hpf" xsi:type="PQ" value="1+" /> <referenceRange> <observationRange> <text>0 - 1+ </text> </observationRange> </referenceRange> </ observation> </component> <component> <observation moodCode= "EVN" classCode="OBS"> <templateId root="11.30.830.1.590737.10..22.4.2 " /> <id nullFlavor="NA" /> <code codeSystem="local" code= "MUCUSU" displayName="UA MUCUS" /> <statusCode code="completed" /> <effectiveTime value="" /> <value unit="" xsi:type= "PQ" value="2+" /> <interpretationCode codeSystem="local" code="*" /> <referenceRange> <observationRange> <text>NEG TO 1+</text> </observationRange> </referenceRange> </ observation> </component> <component> <observation moodCode= "EVN" classCode="OBS"> <templateId root="11.30.840.1.260549...4.2 " /> <id nullFlavor="NA" /> <code codeSystem="local" code= "RBCU" displayName="UA RBC" /> <statusCode code="completed" /> <effectiveTime value="" /> <value unit="rbc/hpf" xsi:type ="PQ" value="PACKED FIELD" /> <interpretationCode codeSystem="local" code="*" /> <referenceRange> <observationRange> <text>0 - 3</text> </observationRange> </referenceRange> </observation> </component> <component> <observation moodCode="EVN" classCode="OBS"> <templateId root= "11.30.840.1.737335.10.22.4.2" /> <id nullFlavor="NA" /> < code codeSystem="local" code="UAVOL" displayName="UA VOLUME FOR EXAM" /> <statusCode code="completed" /> <effectiveTime value="" /> <value unit="mL" xsi:type="PQ" value="12.0" /> < referenceRange> <observationRange> <text>(12mL STD)</ text> </observationRange> </referenceRange> </ observation> </component> <component> <observation moodCode= "EVN" classCode="OBS"> <templateId root="16.840.1.539630.10.20.22.4.2 " /> <id nullFlavor="NA" /> <code codeSystem="local" code= "WBCU" displayName="UA WBC" /> <statusCode code="completed" /> <effectiveTime value="965332352200" /> <value unit="wbc/hpf" xsi:type ="PQ" value="2-5" /> <referenceRange> <observationRange> <text>0 - 5</text> </observationRange> </ referenceRange> </observation> </component> </organizer> </entry > <entry> <organizer moodCode="EVN" classCode="BATTERY"> <templateId root="16.840.1.592399.10..22.4.1" /> <id nullFlavor="NA" /> <code codeSystem="local" code="iCHEM8" displayName="CHEM/HEM PROFILE-BEDSIDE" /> <statusCode code="completed" /> <component> <observation moodCode= "EVN" classCode="OBS"> <templateId root="16.840.1.843813.10.20.22.4.2 " /> <id nullFlavor="NA" /> <code codeSystem="local" code="K" displayName="POTASSIUM" /> <statusCode code="completed" /> < effectiveTime value="727638812975" /> <value unit="mmol/L" xsi:type="PQ " value="3.8" /> <referenceRange> <observationRange> <text>3.5-5.3</text> </observationRange> </ referenceRange> </observation> </component> <component> <observation moodCode="EVN" classCode="OBS"> <templateId root= "216.840.1.587370.10..22.4.2" /> <id nullFlavor="NA" /> < code codeSystem="local" code="CMETHOD" displayName="METHOD" /> < statusCode code="completed" /> <effectiveTime value="" /> <value unit="" xsi:type="PQ" value="Bedside" /> < referenceRange> <observationRange> <text /> < /observationRange> </referenceRange> </observation> </ component> <component> <observation moodCode="EVN" classCode="OBS"> <templateId root="216.840.1.830963.10...4.2" /> <id nullFlavor="NA" /> <code codeSystem="local" code="GAP" displayName= "ANION GAP" /> <statusCode code="completed" /> <effectiveTime value="" /> <value unit="mmol/L" xsi:type="PQ" value="19" / > <referenceRange> <observationRange> <text>10- 20</text> </observationRange> </referenceRange> </ observation> </component> <component> <observation moodCode= "EVN" classCode="OBS"> <templateId root="216.840.1.440349.10...4.2 " /> <id nullFlavor="NA" /> <code codeSystem="local" code= "HMETHOD" displayName="METHOD" /> <statusCode code="completed" /> <effectiveTime value="" /> <value unit="" xsi:type="PQ " value="Bedside" /> <referenceRange> <observationRange> <text /> </observationRange> </referenceRange> </observation> </component> <component> <observation moodCode="EVN" classCode="OBS"> <templateId root= "216.840.1.483731.10..4.2" /> <id nullFlavor="NA" /> < code codeSystem="local" code="GLU" displayName="GLUCOSE" /> < statusCode code="completed" /> <effectiveTime value="" /> <value unit="mg/dL" xsi:type="PQ" value="83" /> < referenceRange> <observationRange> <text>70-99</text> </observationRange> </referenceRange> </observation> </component> <component> <observation moodCode="EVN" classCode= "OBS"> <templateId root="16.840.1.816318.08.03.22.4.2" /> < id nullFlavor="NA" /> <code codeSystem="local" code="BUN" displayName= "BLOOD UREA NITROGEN" /> <statusCode code="completed" /> < effectiveTime value="" /> <value unit="mg/dL" xsi:type="PQ " value="8" /> <referenceRange> <observationRange> <text>7-20</text> </observationRange> </referenceRange > </observation> </component> <component> <observation moodCode="EVN" classCode="OBS"> <templateId root= "11.30.840.1.821533.10.22.4.2" /> <id nullFlavor="NA" /> < code codeSystem="local" code="CREAT" displayName="CREATININE" /> < statusCode code="completed" /> <effectiveTime value="" /> <value unit="mg/dL" xsi:type="PQ" value="0.7" /> < referenceRange> <observationRange> <text>0.6-1.0</text> </observationRange> </referenceRange> </observation > </component> <component> <observation moodCode="EVN" classCode="OBS"> <templateId root="216.840.1.914224.10.20.22.4.2" /> <id nullFlavor="NA" /> <code codeSystem="local" code="HGBT" displayName="HEMOGLOBIN" /> <statusCode code="completed" /> < effectiveTime value="492042125090" /> <value unit="gm/dL" xsi:type="PQ " value="13.9" /> <referenceRange> <observationRange> <text>12.0-16.0</text> </observationRange> </ referenceRange> </observation> </component> <component> <observation moodCode="EVN" classCode="OBS"> <templateId root= "11.30.840.1.178468.10..22.4.2" /> <id nullFlavor="NA" /> < code codeSystem="local" code="HCTT" displayName="HEMATOCRIT" /> < statusCode code="completed" /> <effectiveTime value="921896046240" /> <value unit="%" xsi:type="PQ" value="41.0" /> < referenceRange> <observationRange> <text>37.0-47.0</text > </observationRange> </referenceRange> </observation > </component> <component> <observation moodCode="EVN" classCode="OBS"> <templateId root="11.30.840.1.800362.10.20.22.4.2" /> <id nullFlavor="NA" /> <code codeSystem="local" code="NA" displayName="SODIUM" /> <statusCode code="completed" /> < effectiveTime value="" /> <value unit="mmol/L" xsi:type="PQ " value="139" /> <referenceRange> <observationRange> <text>135-148</text> </observationRange> </ referenceRange> </observation> </component> <component> <observation moodCode="EVN" classCode="OBS"> <templateId root= "216.840.1.898065.10.4.2" /> <id nullFlavor="NA" /> < code codeSystem="local" code="CL" displayName="CHLORIDE" /> < statusCode code="completed" /> <effectiveTime value="" /> <value unit="mmol/L" xsi:type="PQ" value="104" /> < referenceRange> <observationRange> <text>98-110</text> </observationRange> </referenceRange> </observation> </component> <component> <observation moodCode="EVN" classCode ="OBS"> <templateId root="[id number]" /> < id nullFlavor="NA" /> <code codeSystem="local" code="CO2" displayName= "CARBON DIOXIDE" /> <statusCode code="completed" /> < effectiveTime value="" /> <value unit="mmol/L" xsi:type="PQ " value="21" /> <referenceRange> <observationRange> <text>21-32</text> </observationRange> </ referenceRange> </observation> </component> <component> <observation moodCode="EVN" classCode="OBS"> <templateId root= "[id number]" /> <id nullFlavor="NA" /> < code codeSystem="local" code="CAION" displayName="CALCIUM IONIZED" /> < statusCode code="completed" /> <effectiveTime value="019485625055" /> <value unit="mg/dL" xsi:type="PQ" value="4.7" /> < referenceRange> <observationRange> <text>4.5-5.3</text> </observationRange> </referenceRange> </observation > </component> </organizer> </entry> <entry> <organizer moodCode= "EVN" classCode="BATTERY"> <templateId root="16.840.1.028665.10..22.4.1 " /> <id nullFlavor="NA" /> <code codeSystem="local" code="HCGQNT" displayName="HCG QUANT INTACT" /> <statusCode code="completed" /> < component> <observation moodCode="EVN" classCode="OBS"> < templateId root="16.840.1.595454.10..22.4.2" /> <id nullFlavor="NA " /> <code codeSystem="local" code="HCGQNT" displayName="HCG QUANT INTACT" /> <statusCode code="completed" /> <effectiveTime value="845326857769" /> <value unit="mIU/mL" xsi:type="PQ" value="3906 " /> <interpretationCode codeSystem="local" code="*" /> < referenceRange> <observationRange> <text /> < /observationRange> </referenceRange> </observation> </ component> </organizer> </entry> <entry> <organizer moodCode="EVN" classCode="BATTERY"> <templateId root="11.30.840.1.369679.10..22.4.1" /> <id nullFlavor="NA" /> <code codeSystem="local" code="Z6406" displayName="Cytogenetics" /> <statusCode code="completed" /> < component> <observation moodCode="EVN" classCode="OBS"> < templateId root="11.30.840.1.379115.10.4.2" /> <id nullFlavor="NA " /> <code codeSystem="local" code="Z6406" displayName="Cytogenetics" / > <statusCode code="completed" /> <effectiveTime value= "483290090299" /> <value unit="" xsi:type="PQ" value="SEE IMAGE" /> <referenceRange> <observationRange> <text /> </observationRange> </referenceRange> </observation> </component> <component> <observation moodCode="EVN" classCode= "OBS"> <templateId root="840.1.137654.08.03.22.4.2" /> < id nullFlavor="NA" /> <code codeSystem="local" code="Z6406" displayName ="Cytogenetics" /> <statusCode code="completed" /> < effectiveTime value="846598243368" /> <value unit="NA" xsi:type="PQ" value="SEE IMAGE" /> <referenceRange> <observationRange> <text /> </observationRange> </referenceRange> </observation> </component> </organizer> </entry> <entry> < organizer moodCode="EVN" classCode="BATTERY"> <templateId root= "11.30.840.1.846479.08.03.22.4.1" /> <id nullFlavor="NA" /> <code codeSystem="local" code="CBCWD" displayName="CBC With Platelet and Differential " /> <statusCode code="completed" /> <component> <observation moodCode="EVN" classCode="OBS"> <templateId root= "11.30.840.1.268682.10.20.22.4.2" /> <id nullFlavor="NA" /> < code codeSystem="local" code="ABASR" displayName="Absolute Basophils" /> <statusCode code="completed" /> <effectiveTime value="630598873026" /> <value unit="10*3" xsi:type="PQ" value="0.03" /> < referenceRange> <observationRange> <text>0.00-0.20</text > </observationRange> </referenceRange> </observation > </component> <component> <observation moodCode="EVN" classCode="OBS"> <templateId root="11.30.840.1.482541.08.03.22.4.2" /> <id nullFlavor="NA" /> <code codeSystem="local" code="AEOSR" displayName="Absolute Eosinophils" /> <statusCode code="completed" /> <effectiveTime value="033536716236" /> <value unit="10*3" xsi: type="PQ" value="0.71" /> <interpretationCode codeSystem="local" code= "*" /> <referenceRange> <observationRange> < text>0.00-0.50</text> </observationRange> </referenceRange> </observation> </component> <component> <observation moodCode="EVN" classCode="OBS"> <templateId root= "11.30.840.1.310606.10.2022.4.2" /> <id nullFlavor="NA" /> < code codeSystem="local" code="ALYMR" displayName="Absolute Lymphocytes" /> <statusCode code="completed" /> <effectiveTime value="474667146468 " /> <value unit="10*3" xsi:type="PQ" value="2.35" /> < referenceRange> <observationRange> <text>0.80-3.30</text > </observationRange> </referenceRange> </observation > </component> <component> <observation moodCode="EVN" classCode="OBS"> <templateId root="16.840.1.022918.10.20..4.2" /> <id nullFlavor="NA" /> <code codeSystem="local" code="AMONR" displayName="Absolute Monocytes" /> <statusCode code="completed" /> <effectiveTime value="256423977141" /> <value unit="10*3" xsi: type="PQ" value="0.41" /> <referenceRange> <observationRange > <text>0.30-1.00</text> </observationRange> </ referenceRange> </observation> </component> <component> <observation moodCode="EVN" classCode="OBS"> <templateId root= "11.30.840.1.751020...4.2" /> <id nullFlavor="NA" /> < code codeSystem="local" code="ASEGR" displayName="Absolute Neutrophils" /> <statusCode code="completed" /> <effectiveTime value="633190674659 " /> <value unit="10*3" xsi:type="PQ" value="3.37" /> < referenceRange> <observationRange> <text>1.90-7.00</text > </observationRange> </referenceRange> </observation > </component> <component> <observation moodCode="EVN" classCode="OBS"> <templateId root="11.30.840.1.714565.10.2022.4.2" /> <id nullFlavor="NA" /> <code codeSystem="local" code="BASOR" displayName="Basophils" /> <statusCode code="completed" /> < effectiveTime value="627792334746" /> <value unit="%" xsi:type="PQ " value="0" /> <referenceRange> <observationRange> <text>0-2</text> </observationRange> </referenceRange> </observation> </component> <component> <observation moodCode="EVN" classCode="OBS"> <templateId root= "16.840.1.894882.10.2022.4.2" /> <id nullFlavor="NA" /> < code codeSystem="local" code="EOSR" displayName="Eosinophils" /> < statusCode code="completed" /> <effectiveTime value="180128090415" /> <value unit="%" xsi:type="PQ" value="10" /> < interpretationCode codeSystem="local" code="*" /> <referenceRange> <observationRange> <text>0-4</text> </ observationRange> </referenceRange> </observation> </ component> <component> <observation moodCode="EVN" classCode="OBS"> <templateId root="16.840.1.279013.10.22.4.2" /> <id nullFlavor="NA" /> <code codeSystem="local" code="HCT" displayName="HCT " /> <statusCode code="completed" /> <effectiveTime value= "691108505733" /> <value unit="%" xsi:type="PQ" value="33.8" /> <interpretationCode codeSystem="local" code="*" /> < referenceRange> <observationRange> <text>37.0-47.0</text > </observationRange> </referenceRange> </observation > </component> <component> <observation moodCode="EVN" classCode="OBS"> <templateId root="840.1.409938.10.20.22.4.2" /> <id nullFlavor="NA" /> <code codeSystem="local" code="HGB" displayName="HGB" /> <statusCode code="completed" /> < effectiveTime value="625697159953" /> <value unit="g/dL" xsi:type="PQ" value="11.2" /> <interpretationCode codeSystem="local" code="*" /> <referenceRange> <observationRange> <text>12.0- 16.0</text> </observationRange> </referenceRange> </ observation> </component> <component> <observation moodCode= "EVN" classCode="OBS"> <templateId root="16.840.1.793683.10..4.2 " /> <id nullFlavor="NA" /> <code codeSystem="local" code= "IMGA" displayName="Immature Granulocytes" /> <statusCode code= "completed" /> <effectiveTime value="685712802641" /> <value unit="%" xsi:type="PQ" value="0.1" /> <referenceRange> < observationRange> <text>0.0-1.0</text> </ observationRange> </referenceRange> </observation> </ component> <component> <observation moodCode="EVN" classCode="OBS"> <templateId root="16.840.1.876753.10..22.4.2" /> <id nullFlavor="NA" /> <code codeSystem="local" code="LYMPR" displayName= "Lymphocytes" /> <statusCode code="completed" /> < effectiveTime value="851994944929" /> <value unit="%" xsi:type="PQ " value="34" /> <referenceRange> <observationRange> <text>20-46</text> </observationRange> </ referenceRange> </observation> </component> <component> <observation moodCode="EVN" classCode="OBS"> <templateId root= "216.840.1.311333.10.4.2" /> <id nullFlavor="NA" /> < code codeSystem="local" code="MCH" displayName="MCH" /> <statusCode code="completed" /> <effectiveTime value="929876414858" /> < value unit="pg" xsi:type="PQ" value="30.6" /> <referenceRange> <observationRange> <text>27.0-32.0</text> </ observationRange> </referenceRange> </observation> </ component> <component> <observation moodCode="EVN" classCode="OBS"> <templateId root="11.30.840.1.771198.08.03.224.2" /> <id nullFlavor="NA" /> <code codeSystem="local" code="MCHC" displayName= "MCHC" /> <statusCode code="completed" /> <effectiveTime value ="295609007877" /> <value unit="g/dL" xsi:type="PQ" value="33.1" /> <referenceRange> <observationRange> <text>32.0- 36.0</text> </observationRange> </referenceRange> </ observation> </component> <component> <observation moodCode= "EVN" classCode="OBS"> <templateId root="216.840.1.196762...4.2 " /> <id nullFlavor="NA" /> <code codeSystem="local" code="MCV " displayName="MCV" /> <statusCode code="completed" /> < effectiveTime value="521435179724" /> <value unit="fL" xsi:type="PQ" value="92.3" /> <referenceRange> <observationRange> <text>82.0-99.0</text> </observationRange> </ referenceRange> </observation> </component> <component> <observation moodCode="EVN" classCode="OBS"> <templateId root= "216.840.1.443947.10..22.4.2" /> <id nullFlavor="NA" /> < code codeSystem="local" code="MONOR" displayName="Monocytes" /> < statusCode code="completed" /> <effectiveTime value="116824140986" /> <value unit="%" xsi:type="PQ" value="6" /> <referenceRange > <observationRange> <text>4-11</text> </ observationRange> </referenceRange> </observation> </ component> <component> <observation moodCode="EVN" classCode="OBS"> <templateId root="11.30.840.1.524477.10.22.4.2" /> <id nullFlavor="NA" /> <code codeSystem="local" code="MPV" displayName="MPV " /> <statusCode code="completed" /> <effectiveTime value= "290440031102" /> <value unit="fL" xsi:type="PQ" value="9.9" /> <referenceRange> <observationRange> <text>9.4-12.4</ text> </observationRange> </referenceRange> </ observation> </component> <component> <observation moodCode= "EVN" classCode="OBS"> <templateId root="16.840.1.984434.10.20.22.4.2 " /> <id nullFlavor="NA" /> <code codeSystem="local" code= "SEGR" displayName="Neutrophils" /> <statusCode code="completed" /> <effectiveTime value="108901369650" /> <value unit="%" xsi: type="PQ" value="49" /> <interpretationCode codeSystem="local" code="* " /> <referenceRange> <observationRange> <text> 51-75</text> </observationRange> </referenceRange> </ observation> </component> <component> <observation moodCode= "EVN" classCode="OBS"> <templateId root="216.840.1.094611.10.20.22.4.2 " /> <id nullFlavor="NA" /> <code codeSystem="local" code="PLT " displayName="Platelet Count" /> <statusCode code="completed" /> <effectiveTime value="394863513086" /> <value unit="K/uL" xsi:type ="PQ" value="308" /> <referenceRange> <observationRange> <text>150-400</text> </observationRange> </ referenceRange> </observation> </component> <component> <observation moodCode="EVN" classCode="OBS"> <templateId root= "216.840.1.362495.10.20.22.4.2" /> <id nullFlavor="NA" /> < code codeSystem="local" code="RBC" displayName="RBC" /> <statusCode code="completed" /> <effectiveTime value="764204045722" /> < value unit="10*6/uL" xsi:type="PQ" value="3.66" /> <interpretationCode codeSystem="local" code="*" /> <referenceRange> < observationRange> <text>4.00-5.20</text> </ observationRange> </referenceRange> </observation> </ component> <component> <observation moodCode="EVN" classCode="OBS"> <templateId root="840.1.336461.10.22.4.2" /> <id nullFlavor="NA" /> <code codeSystem="local" code="RDW" displayName="RDW " /> <statusCode code="completed" /> <effectiveTime value= "676565575720" /> <value unit="%" xsi:type="PQ" value="12.8" /> <referenceRange> <observationRange> <text>11.5- 14.5</text> </observationRange> </referenceRange> </ observation> </component> <component> <observation moodCode= "EVN" classCode="OBS"> <templateId root="840.1.558155.08.03.22.4.2 " /> <id nullFlavor="NA" /> <code codeSystem="local" code= "WBCIR" displayName="WBC" /> <statusCode code="completed" /> < effectiveTime value="961334037244" /> <value unit="K/uL" xsi:type="PQ" value="6.9" /> <referenceRange> <observationRange> <text>4.8-10.8</text> </observationRange> </ referenceRange> </observation> </component> </organizer> </entry > <entry> <organizer moodCode="EVN" classCode="BATTERY"> <templateId root="840.1.509804.1022.4.1" /> <id nullFlavor="NA" /> <code codeSystem="local" code="HCGQ" displayName="HCG Quantitative" /> < statusCode code="completed" /> <component> <observation moodCode= "EVN" classCode="OBS"> <templateId root="11.30.840.1.809722.08.03.22.4.2 " /> <id nullFlavor="NA" /> <code codeSystem="local" code= "HCGQ" displayName="HCG Quantitative" /> <statusCode code="completed" / > <effectiveTime value="953393955319" /> <value unit="mIU/mL" xsi:type="PQ" value="1174" /> <referenceRange> < observationRange> <text /> </observationRange> </referenceRange> </observation> </component> </organizer> </ entry> <entry> <organizer moodCode="EVN" classCode="BATTERY"> < templateId root="16.840.1.855313.08.03.22.4.1" /> <id nullFlavor="NA" /> <code codeSystem="local" code="PTPTT" displayName="PTT/PT (INR)" /> < statusCode code="completed" /> <component> <observation moodCode= "EVN" classCode="OBS"> <templateId root="16.840.1.714990.08.03.22.4.2 " /> <id nullFlavor="NA" /> <code codeSystem="local" code="INR " displayName="INR" /> <statusCode code="completed" /> < effectiveTime value="673196713613" /> <value unit="NA" xsi:type="PQ" value="1.1" /> <referenceRange> <observationRange> <text>0.9-1.2</text> </observationRange> </ referenceRange> </observation> </component> <component> <observation moodCode="EVN" classCode="OBS"> <templateId root= "11.30.840.1.385817.08.03.22.4.2" /> <id nullFlavor="NA" /> < code codeSystem="local" code="PTT" displayName="PTT" /> <statusCode code="completed" /> <effectiveTime value="565173510220" /> < value unit="seconds" xsi:type="PQ" value="30.9" /> <referenceRange> <observationRange> <text>25.0-35.0</text> </ observationRange> </referenceRange> </observation> </ component> </organizer> </entry> <entry> <organizer moodCode="EVN" classCode="BATTERY"> <templateId root="216.840.1.831356.10..22.4.1" /> <id nullFlavor="NA" /> <code codeSystem="local" code="CBCND" displayName="CBC With Platelet No Differential" /> <statusCode code= "completed" /> <component> <observation moodCode="EVN" classCode= "OBS"> <templateId root="11.30.840.1.692232.10..22.4.2" /> < id nullFlavor="NA" /> <code codeSystem="local" code="HCT" displayName= "HCT" /> <statusCode code="completed" /> <effectiveTime value= "611080317400" /> <value unit="%" xsi:type="PQ" value="29.3" /> <interpretationCode codeSystem="local" code="*" /> < referenceRange> <observationRange> <text>37.0-47.0</text > </observationRange> </referenceRange> </observation > </component> <component> <observation moodCode="EVN" classCode="OBS"> <templateId root="11.30.840.1.521442.10.20.22.4.2" /> <id nullFlavor="NA" /> <code codeSystem="local" code="HGB" displayName="HGB" /> <statusCode code="completed" /> < effectiveTime value="" /> <value unit="g/dL" xsi:type="PQ" value="9.5" /> <interpretationCode codeSystem="local" code="*" /> <referenceRange> <observationRange> <text>12.0-16.0 </text> </observationRange> </referenceRange> </ observation> </component> <component> <observation moodCode= "EVN" classCode="OBS"> <templateId root="216.840.1.471439.10.20.22.4.2 " /> <id nullFlavor="NA" /> <code codeSystem="local" code="MCH " displayName="MCH" /> <statusCode code="completed" /> < effectiveTime value="" /> <value unit="pg" xsi:type="PQ" value="30.5" /> <referenceRange> <observationRange> <text>27.0-32.0</text> </observationRange> </ referenceRange> </observation> </component> <component> <observation moodCode="EVN" classCode="OBS"> <templateId root= "216.840.1.834975.10.20.22.4.2" /> <id nullFlavor="NA" /> < code codeSystem="local" code="MCHC" displayName="MCHC" /> <statusCode code="completed" /> <effectiveTime value="" /> < value unit="g/dL" xsi:type="PQ" value="32.4" /> <referenceRange> <observationRange> <text>32.0-36.0</text> </ observationRange> </referenceRange> </observation> </ component> <component> <observation moodCode="EVN" classCode="OBS"> <templateId root="216.840.1.337293.22.4.2" /> <id nullFlavor="NA" /> <code codeSystem="local" code="MCV" displayName="MCV " /> <statusCode code="completed" /> <effectiveTime value= "" /> <value unit="fL" xsi:type="PQ" value="94.2" /> <referenceRange> <observationRange> <text>82.0-99.0< /text> </observationRange> </referenceRange> </ observation> </component> <component> <observation moodCode= "EVN" classCode="OBS"> <templateId root="216.840.1.615262.22.4.2 " /> <id nullFlavor="NA" /> <code codeSystem="local" code="MPV " displayName="MPV" /> <statusCode code="completed" /> < effectiveTime value="" /> <value unit="fL" xsi:type="PQ" value="9.4" /> <referenceRange> <observationRange> <text>9.4-12.4</text> </observationRange> </ referenceRange> </observation> </component> <component> <observation moodCode="EVN" classCode="OBS"> <templateId root= "16.840.1.818331.22.4.2" /> <id nullFlavor="NA" /> < code codeSystem="local" code="PLT" displayName="Platelet Count" /> < statusCode code="completed" /> <effectiveTime value="" /> <value unit="K/uL" xsi:type="PQ" value="239" /> < referenceRange> <observationRange> <text>150-400</text> </observationRange> </referenceRange> </observation > </component> <component> <observation moodCode="EVN" classCode="OBS"> <templateId root="216.840.1.396871.10.20.22.4.2" /> <id nullFlavor="NA" /> <code codeSystem="local" code="RBC" displayName="RBC" /> <statusCode code="completed" /> < effectiveTime value="" /> <value unit="10*6/uL" xsi:type= "PQ" value="3.11" /> <interpretationCode codeSystem="local" code="*" / > <referenceRange> <observationRange> <text> 4.00-5.20</text> </observationRange> </referenceRange> </observation> </component> <component> <observation moodCode="EVN" classCode="OBS"> <templateId root= "216.840.1.448164.22.4.2" /> <id nullFlavor="NA" /> < code codeSystem="local" code="RDW" displayName="RDW" /> <statusCode code="completed" /> <effectiveTime value="" /> < value unit="%" xsi:type="PQ" value="12.9" /> <referenceRange> <observationRange> <text>11.5-14.5</text> </ observationRange> </referenceRange> </observation> </ component> <component> <observation moodCode="EVN" classCode="OBS"> <templateId root="2.16.840.1.487245.10.20.22.4.2" /> <id nullFlavor="NA" /> <code codeSystem="local" code="WBCIR" displayName= "WBC" /> <statusCode code="completed" /> <effectiveTime value= "" /> <value unit="K/uL" xsi:type="PQ" value="5.4" /> <referenceRange> <observationRange> <text>4.8-10.8< /text> </observationRange> </referenceRange> </ observation> </component> </organizer> </entry> <entry> <organizer moodCode="EVN" classCode="BATTERY"> <templateId root= "11.30.840.1.733436.10..22.4.1" /> <id nullFlavor="NA" /> <code codeSystem="local" code="CBCND" displayName="CBC With Platelet No Differential" /> <statusCode code="completed" /> <component> <observation moodCode="EVN" classCode="OBS"> <templateId root= "11.30.840.1.971961.10..4.2" /> <id nullFlavor="NA" /> < code codeSystem="local" code="HCT" displayName="HCT" /> <statusCode code="completed" /> <effectiveTime value="" /> < value unit="%" xsi:type="PQ" value="28.9" /> <interpretationCode codeSystem="local" code="*" /> <referenceRange> < observationRange> <text>37.0-47.0</text> </ observationRange> </referenceRange> </observation> </ component> <component> <observation moodCode="EVN" classCode="OBS"> <templateId root="840.1.909041.10...4.2" /> <id nullFlavor="NA" /> <code codeSystem="local" code="HGB" displayName="HGB " /> <statusCode code="completed" /> <effectiveTime value= "" /> <value unit="g/dL" xsi:type="PQ" value="9.4" /> <interpretationCode codeSystem="local" code="*" /> <referenceRange > <observationRange> <text>12.0-16.0</text> < /observationRange> </referenceRange> </observation> </ component> <component> <observation moodCode="EVN" classCode="OBS"> <templateId root="216.840.1.490228.10.20.4.2" /> <id nullFlavor="NA" /> <code codeSystem="local" code="MCH" displayName="MCH " /> <statusCode code="completed" /> <effectiveTime value= "" /> <value unit="pg" xsi:type="PQ" value="30.4" /> <referenceRange> <observationRange> <text>27.0-32.0< /text> </observationRange> </referenceRange> </ observation> </component> <component> <observation moodCode= "EVN" classCode="OBS"> <templateId root="840.1.148760.10..4.2 " /> <id nullFlavor="NA" /> <code codeSystem="local" code= "MCHC" displayName="MCHC" /> <statusCode code="completed" /> < effectiveTime value="" /> <value unit="g/dL" xsi:type="PQ" value="32.5" /> <referenceRange> <observationRange> <text>32.0-36.0</text> </observationRange> </ referenceRange> </observation> </component> <component> <observation moodCode="EVN" classCode="OBS"> <templateId root= "16.840.1.946907.10.2022.4.2" /> <id nullFlavor="NA" /> < code codeSystem="local" code="MCV" displayName="MCV" /> <statusCode code="completed" /> <effectiveTime value="" /> < value unit="fL" xsi:type="PQ" value="93.5" /> <referenceRange> <observationRange> <text>82.0-99.0</text> </ observationRange> </referenceRange> </observation> </ component> <component> <observation moodCode="EVN" classCode="OBS"> <templateId root="16.840.1.330401.10.22.4.2" /> <id nullFlavor="NA" /> <code codeSystem="local" code="MPV" displayName="MPV " /> <statusCode code="completed" /> <effectiveTime value= "" /> <value unit="fL" xsi:type="PQ" value="9.7" /> <referenceRange> <observationRange> <text>9.4-12.4</ text> </observationRange> </referenceRange> </ observation> </component> <component> <observation moodCode= "EVN" classCode="OBS"> <templateId root="11.30.840.1.250276.22.4.2 " /> <id nullFlavor="NA" /> <code codeSystem="local" code="PLT " displayName="Platelet Count" /> <statusCode code="completed" /> <effectiveTime value="" /> <value unit="K/uL" xsi:type ="PQ" value="225" /> <referenceRange> <observationRange> <text>150-400</text> </observationRange> </ referenceRange> </observation> </component> <component> <observation moodCode="EVN" classCode="OBS"> <templateId root= "11.30.840.1.670374.08.03.22.4.2" /> <id nullFlavor="NA" /> < code codeSystem="local" code="RBC" displayName="RBC" /> <statusCode code="completed" /> <effectiveTime value="" /> < value unit="10*6/uL" xsi:type="PQ" value="3.09" /> <interpretationCode codeSystem="local" code="*" /> <referenceRange> < observationRange> <text>4.00-5.20</text> </ observationRange> </referenceRange> </observation> </ component> <component> <observation moodCode="EVN" classCode="OBS"> <templateId root="216.840.1.784757.08.03.22.4.2" /> <id nullFlavor="NA" /> <code codeSystem="local" code="RDW" displayName="RDW " /> <statusCode code="completed" /> <effectiveTime value= "" /> <value unit="%" xsi:type="PQ" value="12.6" /> <referenceRange> <observationRange> <text>11.5- 14.5</text> </observationRange> </referenceRange> </ observation> </component> <component> <observation moodCode= "EVN" classCode="OBS"> <templateId root="216.840.1.696268.08.03.22.4.2 " /> <id nullFlavor="NA" /> <code codeSystem="local" code= "WBCIR" displayName="WBC" /> <statusCode code="completed" /> < effectiveTime value="" /> <value unit="K/uL" xsi:type="PQ" value="5.0" /> <referenceRange> <observationRange> <text>4.8-10.8</text> </observationRange> </ referenceRange> </observation> </component> </organizer> </entry > <entry> <organizer moodCode="EVN" classCode="BATTERY"> <templateId root="840.1.081455.08.03.22.4.1" /> <id nullFlavor="NA" /> <code codeSystem="local" code="GLUN" displayName="Glucose NPT" /> <statusCode code="completed" /> <component> <observation moodCode="EVN" classCode="OBS"> <templateId root="840.1.811940.08.03.224.2" /> <id nullFlavor="NA" /> <code codeSystem="local" code="GLUN" displayName="Glucose NPT" /> <statusCode code="completed" /> <effectiveTime value="811149072398" /> <value unit="mg/dL" xsi:type="PQ " value="84" /> <referenceRange> <observationRange> <text>70-100</text> </observationRange> </ referenceRange> </observation> </component> </organizer> </entry > <entry> <organizer moodCode="EVN" classCode="BATTERY"> <templateId root="840.1.871206.08.03.22.4.1" /> <id nullFlavor="NA" /> <code codeSystem="local" code="BMP" displayName="Basic Metabolic Panel (BMP)" /> <statusCode code="completed" /> <component> <observation moodCode= "EVN" classCode="OBS"> <templateId root="840.1.179859.08.03..4.2 " /> <id nullFlavor="NA" /> <code codeSystem="local" code= "AGAP" displayName="Anion Gap" /> <statusCode code="completed" /> <effectiveTime value="572475794177" /> <value unit="NA" xsi:type= "PQ" value="9" /> <referenceRange> <observationRange> <text>3-20</text> </observationRange> </ referenceRange> </observation> </component> <component> <observation moodCode="EVN" classCode="OBS"> <templateId root= "11.30.840.1.231877.22.4.2" /> <id nullFlavor="NA" /> < code codeSystem="local" code="BUN" displayName="BUN" /> <statusCode code="completed" /> <effectiveTime value="403908287896" /> < value unit="mg/dL" xsi:type="PQ" value="8" /> <referenceRange> <observationRange> <text>4-20</text> </ observationRange> </referenceRange> </observation> </ component> <component> <observation moodCode="EVN" classCode="OBS"> <templateId root="11.30.840.1.576925.22.4.2" /> <id nullFlavor="NA" /> <code codeSystem="local" code="CA" displayName= "Calcium" /> <statusCode code="completed" /> <effectiveTime value="660911433071" /> <value unit="mg/dL" xsi:type="PQ" value="8.8" / > <referenceRange> <observationRange> <text>8.6 -10.0</text> </observationRange> </referenceRange> </ observation> </component> <component> <observation moodCode= "EVN" classCode="OBS"> <templateId root="11.30.840.1.688794.2022.4.2 " /> <id nullFlavor="NA" /> <code codeSystem="local" code="CL " displayName="Chloride" /> <statusCode code="completed" /> < effectiveTime value="801487496631" /> <value unit="mEq/L" xsi:type="PQ " value="108" /> <referenceRange> <observationRange> <text>99-109</text> </observationRange> </ referenceRange> </observation> </component> <component> <observation moodCode="EVN" classCode="OBS"> <templateId root= "840.1.018951.10.20.22.4.2" /> <id nullFlavor="NA" /> < code codeSystem="local" code="CO2" displayName="CO2" /> <statusCode code="completed" /> <effectiveTime value="920726758173" /> < value unit="mEq/L" xsi:type="PQ" value="22" /> <referenceRange> <observationRange> <text>22-32</text> </ observationRange> </referenceRange> </observation> </ component> <component> <observation moodCode="EVN" classCode="OBS"> <templateId root="11.30.840.1.069300.10.20.22.4.2" /> <id nullFlavor="NA" /> <code codeSystem="local" code="CREAT" displayName= "Creatinine" /> <statusCode code="completed" /> < effectiveTime value="018607037212" /> <value unit="mg/dL" xsi:type="PQ " value="0.77" /> <referenceRange> <observationRange> <text>0.44-1.03</text> </observationRange> </ referenceRange> </observation> </component> <component> <observation moodCode="EVN" classCode="OBS"> <templateId root= ".1.693778.10..22.4.2" /> <id nullFlavor="NA" /> < code codeSystem="local" code="GLU" displayName="Glucose" /> < statusCode code="completed" /> <effectiveTime value="572441772849" /> <value unit="mg/dL" xsi:type="PQ" value="104" /> < interpretationCode codeSystem="local" code="*" /> <referenceRange> <observationRange> <text>70-100</text> </ observationRange> </referenceRange> </observation> </ component> <component> <observation moodCode="EVN" classCode="OBS"> <templateId root="16.840.1.498645.10...4.2" /> <id nullFlavor="NA" /> <code codeSystem="local" code="K" displayName= "Potassium" /> <statusCode code="completed" /> <effectiveTime value="163632918288" /> <value unit="mEq/L" xsi:type="PQ" value="3.6" / > <referenceRange> <observationRange> <text>3.6 -5.1</text> </observationRange> </referenceRange> </ observation> </component> <component> <observation moodCode= "EVN" classCode="OBS"> <templateId root="11.30.840.1.120085.10.20.22.4.2 " /> <id nullFlavor="NA" /> <code codeSystem="local" code="NA " displayName="Sodium" /> <statusCode code="completed" /> < effectiveTime value="009653892674" /> <value unit="mEq/L" xsi:type="PQ " value="139" /> <referenceRange> <observationRange> <text>136-144</text> </observationRange> </ referenceRange> </observation> </component> </organizer> </entry > <entry> <organizer moodCode="EVN" classCode="BATTERY"> <templateId root="840.1.333396.08.03.22.4.1" /> <id nullFlavor="NA" /> <code codeSystem="local" code="GFR" displayName="eGFR" /> <statusCode code= "completed" /> <component> <observation moodCode="EVN" classCode= "OBS"> <templateId root="840.1.608744.08.03.224.2" /> < id nullFlavor="NA" /> <code codeSystem="local" code="GFR" displayName= "eGFR" /> <statusCode code="completed" /> <effectiveTime value ="964941224893" /> <value unit="NA" xsi:type="PQ" value=">60" /> <referenceRange> <observationRange> <text>>60< /text> </observationRange> </referenceRange> </ observation> </component> </organizer> </entry> <entry> <organizer moodCode="EVN" classCode="BATTERY"> <templateId root= "840.1.664833.08.03.22.4.1" /> <id nullFlavor="NA" /> <code codeSystem="local" code="UA" displayName="Urinalysis with reflex microscopic" / > <statusCode code="completed" /> <component> <observation moodCode="EVN" classCode="OBS"> <templateId root= "840.1.930125.08.03.22.4.2" /> <id nullFlavor="NA" /> < code codeSystem="local" code="UAPP" displayName="Appearance" /> < statusCode code="completed" /> <effectiveTime value="547448921390" /> <value unit="NA" xsi:type="PQ" value="Cloudy" /> < interpretationCode codeSystem="local" code="*" /> <referenceRange> <observationRange> <text /> </observationRange> </referenceRange> </observation> </component> < component> <observation moodCode="EVN" classCode="OBS"> < templateId root="16.840.1.300620.10.4.2" /> <id nullFlavor="NA " /> <code codeSystem="local" code="UBIL" displayName="Bilirubin" /> <statusCode code="completed" /> <effectiveTime value= "308267044727" /> <value unit="NA" xsi:type="PQ" value="Negative" /> <referenceRange> <observationRange> <text> Negative</text> </observationRange> </referenceRange> </observation> </component> <component> <observation moodCode ="EVN" classCode="OBS"> <templateId root= "11.30.840.1.284090.08.03.22.4.2" /> <id nullFlavor="NA" /> < code codeSystem="local" code="UBLD" displayName="Blood" /> <statusCode code="completed" /> <effectiveTime value="892644275155" /> < value unit="NA" xsi:type="PQ" value="Negative" /> <referenceRange> <observationRange> <text>Negative</text> </ observationRange> </referenceRange> </observation> </ component> <component> <observation moodCode="EVN" classCode="OBS"> <templateId root="11.30.840.1.316931.08.03.22.4.2" /> <id nullFlavor="NA" /> <code codeSystem="local" code="UCOLR" displayName= "Color" /> <statusCode code="completed" /> <effectiveTime value="" /> <value unit="NA" xsi:type="PQ" value="Yellow" / > <referenceRange> <observationRange> <text /> </observationRange> </referenceRange> </observation > </component> <component> <observation moodCode="EVN" classCode="OBS"> <templateId root="11.30.840.1.058143...4.2" /> <id nullFlavor="NA" /> <code codeSystem="local" code="UGLU" displayName="Glucose, Urine" /> <statusCode code="completed" /> <effectiveTime value="" /> <value unit="" xsi:type="PQ" value="Negative" /> <referenceRange> <observationRange> <text>Negative</text> </observationRange> </ referenceRange> </observation> </component> <component> <observation moodCode="EVN" classCode="OBS"> <templateId root= "840.1.030379.08.03.22.4.2" /> <id nullFlavor="NA" /> < code codeSystem="local" code="UKET" displayName="Ketones" /> < statusCode code="completed" /> <effectiveTime value="566051453596" /> <value unit="" xsi:type="PQ" value="Negative" /> < referenceRange> <observationRange> <text>Negative</text > </observationRange> </referenceRange> </observation > </component> <component> <observation moodCode="EVN" classCode="OBS"> <templateId root="11.30.840.1.269392.08.03.22.4.2" /> <id nullFlavor="NA" /> <code codeSystem="local" code="ULEU" displayName="Leukocyte Esterase" /> <statusCode code="completed" /> <effectiveTime value="956694472275" /> <value unit="NA" xsi:type ="PQ" value="Negative" /> <referenceRange> <observationRange > <text>Negative</text> </observationRange> </ referenceRange> </observation> </component> <component> <observation moodCode="EVN" classCode="OBS"> <templateId root= "16.840.1.418659.10.20.22.4.2" /> <id nullFlavor="NA" /> < code codeSystem="local" code="UNIT" displayName="Nitrites" /> < statusCode code="completed" /> <effectiveTime value="081031652535" /> <value unit="NA" xsi:type="PQ" value="Negative" /> < referenceRange> <observationRange> <text>Negative</text > </observationRange> </referenceRange> </observation > </component> <component> <observation moodCode="EVN" classCode="OBS"> <templateId root="16.840.1.203683.10..22.4.2" /> <id nullFlavor="NA" /> <code codeSystem="local" code="UPH" displayName="pH" /> <statusCode code="completed" /> < effectiveTime value="017438032464" /> <value unit="NA" xsi:type="PQ" value="7.0" /> <referenceRange> <observationRange> <text>5.0-8.0</text> </observationRange> </ referenceRange> </observation> </component> <component> <observation moodCode="EVN" classCode="OBS"> <templateId root= "11.30.840.1.186462.08.03.22.4.2" /> <id nullFlavor="NA" /> < code codeSystem="local" code="UPRO" displayName="Protein" /> < statusCode code="completed" /> <effectiveTime value="037610390816" /> <value unit="NA" xsi:type="PQ" value="Negative" /> < referenceRange> <observationRange> <text>Negative</text > </observationRange> </referenceRange> </observation > </component> <component> <observation moodCode="EVN" classCode="OBS"> <templateId root="216.840.1.750006.08.03.22.4.2" /> <id nullFlavor="NA" /> <code codeSystem="local" code="USPG" displayName="Specific Merrill" /> <statusCode code="completed" /> <effectiveTime value="676520936989" /> <value unit="NA" xsi:type= "PQ" value="1.020" /> <referenceRange> <observationRange> <text>1.003-1.030</text> </observationRange> </ referenceRange> </observation> </component> <component> <observation moodCode="EVN" classCode="OBS"> <templateId root= "216.840.1.761547.08.03.22.4.2" /> <id nullFlavor="NA" /> < code codeSystem="local" code="UTYP" displayName="UA Collection type" /> <statusCode code="completed" /> <effectiveTime value="138702390819" / > <value unit="NA" xsi:type="PQ" value="Clean Catch" /> < referenceRange> <observationRange> <text /> < /observationRange> </referenceRange> </observation> </ component> <component> <observation moodCode="EVN" classCode="OBS"> <templateId root="216.840.1.532101.10.20.22.4.2" /> <id nullFlavor="NA" /> <code codeSystem="local" code="UURO" displayName= "Urobilinogen" /> <statusCode code="completed" /> < effectiveTime value="087193857467" /> <value unit="mg/dL" xsi:type="PQ " value="Negative" /> <referenceRange> <observationRange> <text><1.0</text> </observationRange> </ referenceRange> </observation> </component> </organizer> </entry > <entry> <organizer moodCode="EVN" classCode="BATTERY"> <templateId root="216.840.1.877919.10.20.22.4.1" /> <id nullFlavor="NA" /> <code codeSystem="local" code="PREGN" displayName=" Screen, Urine NPT" /> <statusCode code="completed" /> <component> <observation moodCode ="EVN" classCode="OBS"> <templateId root= "2.16.840.1.663737.10.20.22.4.2" /> <id nullFlavor="NA" /> < code codeSystem="local" code="PREGN" displayName=" Screen, Urine NPT" / > <statusCode code="completed" /> <effectiveTime value= "217262322189" /> <value unit="NA" xsi:type="PQ" value="Negative" /> <referenceRange> <observationRange> <text /> </observationRange> </referenceRange> </observation> </component> </organizer> </entry> <entry> <organizer moodCode="EVN " classCode="BATTERY"> <templateId root="216.840.1.189390...22.4.1" / > <id nullFlavor="NA" /> <code codeSystem="local" code="CBCWD" displayName="CBC With Platelet and Differential" /> <statusCode code= "completed" /> <component> <observation moodCode="EVN" classCode= "OBS"> <templateId root="11.30.840.1.480998.08.03.22.4.2" /> < id nullFlavor="NA" /> <code codeSystem="local" code="ABASR" displayName ="Absolute Basophils" /> <statusCode code="completed" /> < effectiveTime value="255034038689" /> <value unit="10*3/uL" xsi:type= "PQ" value="0.03" /> <referenceRange> <observationRange> <text>0.00-0.20</text> </observationRange> </ referenceRange> </observation> </component> <component> <observation moodCode="EVN" classCode="OBS"> <templateId root= "840.1.307149.08.03.224.2" /> <id nullFlavor="NA" /> < code codeSystem="local" code="AEOSR" displayName="Absolute Eosinophils" /> <statusCode code="completed" /> <effectiveTime value="363928980917 " /> <value unit="10*3/uL" xsi:type="PQ" value="0.31" /> < referenceRange> <observationRange> <text>0.00-0.50</text > </observationRange> </referenceRange> </observation > </component> <component> <observation moodCode="EVN" classCode="OBS"> <templateId root="11.30.840.1.396271.08.03.22.4.2" /> <id nullFlavor="NA" /> <code codeSystem="local" code="ALYMR" displayName="Absolute Lymphocytes" /> <statusCode code="completed" /> <effectiveTime value="381899587377" /> <value unit="10*3/uL" xsi:type="PQ" value="1.67" /> <referenceRange> < observationRange> <text>0.80-3.30</text> </ observationRange> </referenceRange> </observation> </ component> <component> <observation moodCode="EVN" classCode="OBS"> <templateId root="2.16.840.1.729276.10..22.4.2" /> <id nullFlavor="NA" /> <code codeSystem="local" code="AMONR" displayName= "Absolute Monocytes" /> <statusCode code="completed" /> < effectiveTime value="112005666748" /> <value unit="10*3/uL" xsi:type= "PQ" value="0.41" /> <referenceRange> <observationRange> <text>0.30-1.00</text> </observationRange> </ referenceRange> </observation> </component> <component> <observation moodCode="EVN" classCode="OBS"> <templateId root= "2.16.840.1.667143.10..22.4.2" /> <id nullFlavor="NA" /> < code codeSystem="local" code="ASEGR" displayName="Absolute Neutrophils" /> <statusCode code="completed" /> <effectiveTime value="103211095305 " /> <value unit="10*3/uL" xsi:type="PQ" value="3.14" /> < referenceRange> <observationRange> <text>1.90-7.00</text > </observationRange> </referenceRange> </observation > </component> <component> <observation moodCode="EVN" classCode="OBS"> <templateId root="16.840.1.050379.10.20.22.4.2" /> <id nullFlavor="NA" /> <code codeSystem="local" code="BASOR" displayName="Basophils" /> <statusCode code="completed" /> < effectiveTime value="808919351431" /> <value unit="%" xsi:type="PQ " value="1" /> <referenceRange> <observationRange> <text>0-2</text> </observationRange> </referenceRange> </observation> </component> <component> <observation moodCode="EVN" classCode="OBS"> <templateId root= "16.840.1.497882.10.2022.4.2" /> <id nullFlavor="NA" /> < code codeSystem="local" code="EOSR" displayName="Eosinophils" /> < statusCode code="completed" /> <effectiveTime value="521800572305" /> <value unit="%" xsi:type="PQ" value="6" /> < interpretationCode codeSystem="local" code="*" /> <referenceRange> <observationRange> <text>0-4</text> </ observationRange> </referenceRange> </observation> </ component> <component> <observation moodCode="EVN" classCode="OBS"> <templateId root="11.30.840.1.239047.10.20.22.4.2" /> <id nullFlavor="NA" /> <code codeSystem="local" code="HCT" displayName="HCT " /> <statusCode code="completed" /> <effectiveTime value= "349600188577" /> <value unit="%" xsi:type="PQ" value="35.6" /> <interpretationCode codeSystem="local" code="*" /> < referenceRange> <observationRange> <text>37.0-47.0</text > </observationRange> </referenceRange> </observation > </component> <component> <observation moodCode="EVN" classCode="OBS"> <templateId root="216.840.1.847802.10.20.22.4.2" /> <id nullFlavor="NA" /> <code codeSystem="local" code="HGB" displayName="HGB" /> <statusCode code="completed" /> < effectiveTime value="065765717245" /> <value unit="g/dL" xsi:type="PQ" value="11.6" /> <interpretationCode codeSystem="local" code="*" /> <referenceRange> <observationRange> <text>12.0- 16.0</text> </observationRange> </referenceRange> </ observation> </component> <component> <observation moodCode= "EVN" classCode="OBS"> <templateId root="11.30.840.1.792733.10..4.2 " /> <id nullFlavor="NA" /> <code codeSystem="local" code= "IMGA" displayName="Immature Granulocytes" /> <statusCode code= "completed" /> <effectiveTime value="781404488980" /> <value unit="%" xsi:type="PQ" value="0.4" /> <referenceRange> < observationRange> <text>0.0-1.0</text> </ observationRange> </referenceRange> </observation> </ component> <component> <observation moodCode="EVN" classCode="OBS"> <templateId root="16.840.1.938935.10.20.22.4.2" /> <id nullFlavor="NA" /> <code codeSystem="local" code="LYMPR" displayName= "Lymphocytes" /> <statusCode code="completed" /> < effectiveTime value="686475276051" /> <value unit="%" xsi:type="PQ " value="30" /> <referenceRange> <observationRange> <text>20-46</text> </observationRange> </ referenceRange> </observation> </component> <component> <observation moodCode="EVN" classCode="OBS"> <templateId root= "11.30.840.1.426011.10.20.22.4.2" /> <id nullFlavor="NA" /> < code codeSystem="local" code="MCH" displayName="MCH" /> <statusCode code="completed" /> <effectiveTime value="281880820793" /> < value unit="pg" xsi:type="PQ" value="29.9" /> <referenceRange> <observationRange> <text>27.0-32.0</text> </ observationRange> </referenceRange> </observation> </ component> <component> <observation moodCode="EVN" classCode="OBS"> <templateId root="11.30.840.1.350161.10.20.22.4.2" /> <id nullFlavor="NA" /> <code codeSystem="local" code="MCHC" displayName= "MCHC" /> <statusCode code="completed" /> <effectiveTime value ="409776180636" /> <value unit="g/dL" xsi:type="PQ" value="32.6" /> <referenceRange> <observationRange> <text>32.0- 36.0</text> </observationRange> </referenceRange> </ observation> </component> <component> <observation moodCode= "EVN" classCode="OBS"> <templateId root="11.30.830.1.756630.10.22.4.2 " /> <id nullFlavor="NA" /> <code codeSystem="local" code="MCV " displayName="MCV" /> <statusCode code="completed" /> < effectiveTime value="123702218336" /> <value unit="fL" xsi:type="PQ" value="91.8" /> <referenceRange> <observationRange> <text>82.0-99.0</text> </observationRange> </ referenceRange> </observation> </component> <component> <observation moodCode="EVN" classCode="OBS"> <templateId root= "11.30.840.1.199224.08.03.22.4.2" /> <id nullFlavor="NA" /> < code codeSystem="local" code="MONOR" displayName="Monocytes" /> < statusCode code="completed" /> <effectiveTime value="757353406390" /> <value unit="%" xsi:type="PQ" value="7" /> <referenceRange > <observationRange> <text>4-11</text> </ observationRange> </referenceRange> </observation> </ component> <component> <observation moodCode="EVN" classCode="OBS"> <templateId root="11.30.840.1.808262.22.4.2" /> <id nullFlavor="NA" /> <code codeSystem="local" code="MPV" displayName="MPV " /> <statusCode code="completed" /> <effectiveTime value= "305476338659" /> <value unit="fL" xsi:type="PQ" value="10.0" /> <referenceRange> <observationRange> <text>9.4-12.4</ text> </observationRange> </referenceRange> </ observation> </component> <component> <observation moodCode= "EVN" classCode="OBS"> <templateId root="16.840.1.939918.10...4.2 " /> <id nullFlavor="NA" /> <code codeSystem="local" code= "SEGR" displayName="Neutrophils" /> <statusCode code="completed" /> <effectiveTime value="433600562151" /> <value unit="%" xsi: type="PQ" value="56" /> <referenceRange> <observationRange> <text>51-75</text> </observationRange> </ referenceRange> </observation> </component> <component> <observation moodCode="EVN" classCode="OBS"> <templateId root= "16.840.1.290161...4.2" /> <id nullFlavor="NA" /> < code codeSystem="local" code="NRBCA" displayName="Nucleated RBC Automated" /> <statusCode code="completed" /> <effectiveTime value= "504349453146" /> <value unit="/100WBC" xsi:type="PQ" value="0.0" /> <referenceRange> <observationRange> <text /> </observationRange> </referenceRange> </observation> </component> <component> <observation moodCode="EVN" classCode= "OBS"> <templateId root="11.30.840.1.917868.10.22.4.2" /> < id nullFlavor="NA" /> <code codeSystem="local" code="PLT" displayName= "Platelet Count" /> <statusCode code="completed" /> < effectiveTime value="568236291722" /> <value unit="K/uL" xsi:type="PQ" value="271" /> <referenceRange> <observationRange> <text>150-400</text> </observationRange> </ referenceRange> </observation> </component> <component> <observation moodCode="EVN" classCode="OBS"> <templateId root= "11.30.840.1.748291.10.20.22.4.2" /> <id nullFlavor="NA" /> < code codeSystem="local" code="RBC" displayName="RBC" /> <statusCode code="completed" /> <effectiveTime value="312479760687" /> < value unit="10*6/uL" xsi:type="PQ" value="3.88" /> <interpretationCode codeSystem="local" code="*" /> <referenceRange> < observationRange> <text>4.00-5.20</text> </ observationRange> </referenceRange> </observation> </ component> <component> <observation moodCode="EVN" classCode="OBS"> <templateId root="840.1.172495.22.4.2" /> <id nullFlavor="NA" /> <code codeSystem="local" code="RDW" displayName="RDW " /> <statusCode code="completed" /> <effectiveTime value= "574799272724" /> <value unit="%" xsi:type="PQ" value="13.9" /> <referenceRange> <observationRange> <text>11.5- 14.5</text> </observationRange> </referenceRange> </ observation> </component> <component> <observation moodCode= "EVN" classCode="OBS"> <templateId root="11.30.840.1.492962.10.20.22.4.2 " /> <id nullFlavor="NA" /> <code codeSystem="local" code= "WBCIR" displayName="WBC" /> <statusCode code="completed" /> < effectiveTime value="064473047753" /> <value unit="K/uL" xsi:type="PQ" value="5.6" /> <referenceRange> <observationRange> <text>4.8-10.8</text> </observationRange> </ referenceRange> </observation> </component> </organizer> </entry > <entry> <organizer moodCode="EVN" classCode="BATTERY"> <templateId root="216.840.1.605268.10..22.4.1" /> <id nullFlavor="NA" /> <code codeSystem="local" code="UA" displayName="Urinalysis with reflex microscopic" / > <statusCode code="completed" /> <component> <observation moodCode="EVN" classCode="OBS"> <templateId root= "216.840.1.611822.10...4.2" /> <id nullFlavor="NA" /> < code codeSystem="local" code="UAPP" displayName="Appearance" /> < statusCode code="completed" /> <effectiveTime value="605800073535" /> <value unit="NA" xsi:type="PQ" value="Clear" /> < referenceRange> <observationRange> <text /> < /observationRange> </referenceRange> </observation> </ component> <component> <observation moodCode="EVN" classCode="OBS"> <templateId root="216.840.1.936769.10..22.4.2" /> <id nullFlavor="NA" /> <code codeSystem="local" code="UBIL" displayName= "Bilirubin" /> <statusCode code="completed" /> <effectiveTime value="071902830352" /> <value unit="NA" xsi:type="PQ" value="Negative " /> <referenceRange> <observationRange> <text> Negative</text> </observationRange> </referenceRange> </observation> </component> <component> <observation moodCode ="EVN" classCode="OBS"> <templateId root= "11.30.840.1.413692.10.4.2" /> <id nullFlavor="NA" /> < code codeSystem="local" code="UBLD" displayName="Blood" /> <statusCode code="completed" /> <effectiveTime value="" /> < value unit="NA" xsi:type="PQ" value="Negative" /> <referenceRange> <observationRange> <text>Negative</text> </ observationRange> </referenceRange> </observation> </ component> <component> <observation moodCode="EVN" classCode="OBS"> <templateId root="840.1.735495.08.03.22.4.2" /> <id nullFlavor="NA" /> <code codeSystem="local" code="UCOLR" displayName= "Color" /> <statusCode code="completed" /> <effectiveTime value="" /> <value unit="NA" xsi:type="PQ" value="Yellow" / > <referenceRange> <observationRange> <text /> </observationRange> </referenceRange> </observation > </component> <component> <observation moodCode="EVN" classCode="OBS"> <templateId root="11.30.840.1.932456.10.4.2" /> <id nullFlavor="NA" /> <code codeSystem="local" code="UGLU" displayName="Glucose, Urine" /> <statusCode code="completed" /> <effectiveTime value="" /> <value unit="" xsi:type="PQ" value="Negative" /> <referenceRange> <observationRange> <text>Negative</text> </observationRange> </ referenceRange> </observation> </component> <component> <observation moodCode="EVN" classCode="OBS"> <templateId root= "16.840.1.108564.10..4.2" /> <id nullFlavor="NA" /> < code codeSystem="local" code="UKET" displayName="Ketones" /> < statusCode code="completed" /> <effectiveTime value="" /> <value unit="" xsi:type="PQ" value="Negative" /> < referenceRange> <observationRange> <text>Negative</text > </observationRange> </referenceRange> </observation > </component> <component> <observation moodCode="EVN" classCode="OBS"> <templateId root="11.30.840.1.459796.10.4.2" /> <id nullFlavor="NA" /> <code codeSystem="local" code="ULEU" displayName="Leukocyte Esterase" /> <statusCode code="completed" /> <effectiveTime value="" /> <value unit="NA" xsi:type ="PQ" value="Negative" /> <referenceRange> <observationRange > <text>Negative</text> </observationRange> </ referenceRange> </observation> </component> <component> <observation moodCode="EVN" classCode="OBS"> <templateId root= "11.30.840.1.735012.10.4.2" /> <id nullFlavor="NA" /> < code codeSystem="local" code="UNIT" displayName="Nitrites" /> < statusCode code="completed" /> <effectiveTime value="" /> <value unit="NA" xsi:type="PQ" value="Negative" /> < referenceRange> <observationRange> <text>Negative</text > </observationRange> </referenceRange> </observation > </component> <component> <observation moodCode="EVN" classCode="OBS"> <templateId root="11.30.840.1.366121.08.03.22.4.2" /> <id nullFlavor="NA" /> <code codeSystem="local" code="UPH" displayName="pH" /> <statusCode code="completed" /> < effectiveTime value="" /> <value unit="NA" xsi:type="PQ" value="5.0" /> <referenceRange> <observationRange> <text>5.0-8.0</text> </observationRange> </ referenceRange> </observation> </component> <component> <observation moodCode="EVN" classCode="OBS"> <templateId root= "840.1.663486.08.03.22.4.2" /> <id nullFlavor="NA" /> < code codeSystem="local" code="UPRO" displayName="Protein" /> < statusCode code="completed" /> <effectiveTime value="" /> <value unit="NA" xsi:type="PQ" value="Negative" /> < referenceRange> <observationRange> <text>Negative</text > </observationRange> </referenceRange> </observation > </component> <component> <observation moodCode="EVN" classCode="OBS"> <templateId root="11.30.840.1.178930.08.03.22.4.2" /> <id nullFlavor="NA" /> <code codeSystem="local" code="USPG" displayName="Specific Merrill" /> <statusCode code="completed" /> <effectiveTime value="489821296413" /> <value unit="NA" xsi:type= "PQ" value="1.015" /> <referenceRange> <observationRange> <text>1.003-1.030</text> </observationRange> </ referenceRange> </observation> </component> <component> <observation moodCode="EVN" classCode="OBS"> <templateId root= "216.840.1.461163.08.03.22.4.2" /> <id nullFlavor="NA" /> < code codeSystem="local" code="UTYP" displayName="UA Collection type" /> <statusCode code="completed" /> <effectiveTime value="045043697277" / > <value unit="NA" xsi:type="PQ" value="Clean Catch" /> < referenceRange> <observationRange> <text /> < /observationRange> </referenceRange> </observation> </ component> <component> <observation moodCode="EVN" classCode="OBS"> <templateId root="216.840.1.279876.08.03.22.4.2" /> <id nullFlavor="NA" /> <code codeSystem="local" code="UURO" displayName= "Urobilinogen" /> <statusCode code="completed" /> < effectiveTime value="936728421454" /> <value unit="mg/dL" xsi:type="PQ " value="Negative" /> <referenceRange> <observationRange> <text><1.0</text> </observationRange> </ referenceRange> </observation> </component> </organizer> </entry > <entry> <organizer moodCode="EVN" classCode="BATTERY"> <templateId root="216.840.1.533200.08.03.22.4.1" /> <id nullFlavor="NA" /> <code codeSystem="local" code="UPREG" displayName=" Screen, Urine" /> < statusCode code="completed" /> <component> <observation moodCode= "EVN" classCode="OBS"> <templateId root="16.840.1.093623.10...4.2 " /> <id nullFlavor="NA" /> <code codeSystem="local" code= "UPREG" displayName=" Screen, Urine" /> <statusCode code= "completed" /> <effectiveTime value="096629186624" /> <value unit="NA" xsi:type="PQ" value="Negative" /> <referenceRange> <observationRange> <text /> </observationRange> </referenceRange> </observation> </component> </organizer> < /entry> <entry> <organizer moodCode="EVN" classCode="BATTERY"> < templateId root="16.840.1.087617.10..22.4.1" /> <id nullFlavor="NA" /> <code codeSystem="local" code="VCHMN" displayName="Chem 8 NPT" /> < statusCode code="completed" /> <component> <observation moodCode= "EVN" classCode="OBS"> <templateId root="11.30.840.1.024779.10..22.4.2 " /> <id nullFlavor="NA" /> <code codeSystem="local" code= "VAGAP" displayName="Anion Gap" /> <statusCode code="completed" /> <effectiveTime value="205386972922" /> <value unit="mEq/L" xsi: type="PQ" value="13" /> <referenceRange> <observationRange> <text>3-20</text> </observationRange> </ referenceRange> </observation> </component> <component> <observation moodCode="EVN" classCode="OBS"> <templateId root= "216.840.1.173428.10.4.2" /> <id nullFlavor="NA" /> < code codeSystem="local" code="VBUNN" displayName="BUN Venous" /> < statusCode code="completed" /> <effectiveTime value="663705664188" /> <value unit="mg/dl" xsi:type="PQ" value="12" /> < referenceRange> <observationRange> <text>4-20</text> </observationRange> </referenceRange> </observation> </component> <component> <observation moodCode="EVN" classCode= "OBS"> <templateId root="11.30.840.1.214402.08.03.22.4.2" /> < id nullFlavor="NA" /> <code codeSystem="local" code="VCANN" displayName ="Calcium Ionized Venous" /> <statusCode code="completed" /> < effectiveTime value="331492232171" /> <value unit="mmol/L" xsi:type="PQ " value="1.13" /> <interpretationCode codeSystem="local" code="*" /> <referenceRange> <observationRange> <text>1.19- 1.41</text> </observationRange> </referenceRange> </ observation> </component> <component> <observation moodCode= "EVN" classCode="OBS"> <templateId root="16.840.1.714958.08.03.22.4.2 " /> <id nullFlavor="NA" /> <code codeSystem="local" code= "VCREN" displayName="Creatinine Venous" /> <statusCode code="completed " /> <effectiveTime value="434618851367" /> <value unit="mg/dL " xsi:type="PQ" value="0.7" /> <referenceRange> < observationRange> <text>0.4-1.0</text> </ observationRange> </referenceRange> </observation> </ component> <component> <observation moodCode="EVN" classCode="OBS"> <templateId root="11.30.840.1.947327.10.22.4.2" /> <id nullFlavor="NA" /> <code codeSystem="local" code="VGLNN" displayName= "Glucose Venous" /> <statusCode code="completed" /> < effectiveTime value="496049359660" /> <value unit="mg/dL" xsi:type="PQ " value="80" /> <referenceRange> <observationRange> <text>70-100</text> </observationRange> </ referenceRange> </observation> </component> <component> <observation moodCode="EVN" classCode="OBS"> <templateId root= "11.30.840.1.241217.08.03.22.4.2" /> <id nullFlavor="NA" /> < code codeSystem="local" code="VKNN" displayName="Potassium, WB" /> < statusCode code="completed" /> <effectiveTime value="409964850883" /> <value unit="mEq/L" xsi:type="PQ" value="3.9" /> < referenceRange> <observationRange> <text>3.6-5.1</text> </observationRange> </referenceRange> </observation > </component> <component> <observation moodCode="EVN" classCode="OBS"> <templateId root="11.30.840.1.437576.10..22.4.2" /> <id nullFlavor="NA" /> <code codeSystem="local" code="VNANN" displayName="Sodium Venous" /> <statusCode code="completed" /> <effectiveTime value="433242945144" /> <value unit="mEq/L" xsi:type= "PQ" value="140" /> <referenceRange> <observationRange> <text>136-144</text> </observationRange> </ referenceRange> </observation> </component> <component> <observation moodCode="EVN" classCode="OBS"> <templateId root= "2.16.840.1.271934.10.20.22.4.2" /> <id nullFlavor="NA" /> < code codeSystem="local" code="VTCNN" displayName="Total CO2 Venous" /> <statusCode code="completed" /> <effectiveTime value="550868637287" /> <value unit="mEq/L" xsi:type="PQ" value="21" /> < interpretationCode codeSystem="local" code="*" /> <referenceRange> <observationRange> <text>25-29</text> </ observationRange> </referenceRange> </observation> </ component> <component> <observation moodCode="EVN" classCode="OBS"> <templateId root="216.840.1.958181.10.20.22.4.2" /> <id nullFlavor="NA" /> <code codeSystem="local" code="VCLN" displayName= "Venous CL" /> <statusCode code="completed" /> <effectiveTime value="100819400466" /> <value unit="mEq/L" xsi:type="PQ" value="106" / > <referenceRange> <observationRange> <text>99- 109</text> </observationRange> </referenceRange> </ observation> </component> <component> <observation moodCode= "EVN" classCode="OBS"> <templateId root="16.840.1.974658.10..22.4.2 " /> <id nullFlavor="NA" /> <code codeSystem="local" code= "VHCNN" displayName="HCT Venous" /> <statusCode code="completed" /> <effectiveTime value="703032767295" /> <value unit="%" xsi: type="PQ" value="41.0" /> <referenceRange> <observationRange > <text>37.0-47.0</text> </observationRange> </ referenceRange> </observation> </component> <component> <observation moodCode="EVN" classCode="OBS"> <templateId root= "11.30.840.1.490405.08.03.22.4.2" /> <id nullFlavor="NA" /> < code codeSystem="local" code="VHGNN" displayName="HGB Venous NPT" /> < statusCode code="completed" /> <effectiveTime value="464895176759" /> <value unit="g/dL" xsi:type="PQ" value="13.9" /> < referenceRange> <observationRange> <text>12.0-16.0</text > </observationRange> </referenceRange> </observation > </component> </organizer> </entry> <entry> <organizer moodCode= "EVN" classCode="BATTERY"> <templateId root="11.30.840.1.475345.08.03.22.4.1 " /> <id nullFlavor="NA" /> <code codeSystem="local" code="PREGN" displayName=" Screen, Urine NPT" /> <statusCode code="completed" / > <component> <observation moodCode="EVN" classCode="OBS"> <templateId root="11.30.840.1.733706.22.4.2" /> <id nullFlavor="NA " /> <code codeSystem="local" code="PREGN" displayName=" Screen, Urine NPT" /> <statusCode code="completed" /> < effectiveTime value="710547539336" /> <value unit="NA" xsi:type="PQ" value="Negative" /> <referenceRange> <observationRange> <text /> </observationRange> </referenceRange> </observation> </component> </organizer> </entry> <entry> < organizer moodCode="EVN" classCode="BATTERY"> <templateId root= "216.840.1.348160.08.03.22.4.1" /> <id nullFlavor="NA" /> <code codeSystem="local" code="UA" displayName="URINALYSIS, ROUTINE" /> < statusCode code="completed" /> <component> <observation moodCode= "EVN" classCode="OBS"> <templateId root="216.840.1.965585.10..4.2 " /> <id nullFlavor="NA" /> <code codeSystem="local" code= "LEUESU" displayName="UA LEUKOCYTE ESTERASE DIPSTICK" /> <statusCode code="completed" /> <effectiveTime value="851088159241" /> < value unit="" xsi:type="PQ" value="NEGATIVE" /> <referenceRange> <observationRange> <text>NEGATIVE</text> </ observationRange> </referenceRange> </observation> </ component> <component> <observation moodCode="EVN" classCode="OBS"> <templateId root="216.840.1.849375.10..4.2" /> <id nullFlavor="NA" /> <code codeSystem="local" code="NITRIU" displayName= "UA NITRITE DIPSTICK" /> <statusCode code="completed" /> < effectiveTime value="473820521418" /> <value unit="" xsi:type="PQ" value="NEGATIVE" /> <referenceRange> <observationRange> <text>NEGATIVE</text> </observationRange> </ referenceRange> </observation> </component> <component> <observation moodCode="EVN" classCode="OBS"> <templateId root= "11.30.840.1.689123.08.03.22.4.2" /> <id nullFlavor="NA" /> < code codeSystem="local" code="PROTEIU" displayName="UA PROTEIN DIPSTICK" /> <statusCode code="completed" /> <effectiveTime value= "930423562677" /> <value unit="" xsi:type="PQ" value="NEGATIVE" /> <referenceRange> <observationRange> <text>NEGATIVE </text> </observationRange> </referenceRange> </ observation> </component> <component> <observation moodCode= "EVN" classCode="OBS"> <templateId root="11.30.840.1.802265.08.03.22.4.2 " /> <id nullFlavor="NA" /> <code codeSystem="local" code= "DGLUU" displayName="UA GLUCOSE DIPSTICK" /> <statusCode code= "completed" /> <effectiveTime value="998347200979" /> <value unit="" xsi:type="PQ" value="NEGATIVE" /> <referenceRange> < observationRange> <text>NEGATIVE</text> </ observationRange> </referenceRange> </observation> </ component> <component> <observation moodCode="EVN" classCode="OBS"> <templateId root="11.30.840.1.307283.08.03.22.4.2" /> <id nullFlavor="NA" /> <code codeSystem="local" code="KETONU" displayName= "UA KETONE DIPSTICK" /> <statusCode code="completed" /> < effectiveTime value="111337781514" /> <value unit="" xsi:type="PQ" value="NEGATIVE" /> <referenceRange> <observationRange> <text>NEGATIVE</text> </observationRange> </ referenceRange> </observation> </component> <component> <observation moodCode="EVN" classCode="OBS"> <templateId root= "11.30.840.1.183439.10..22.4.2" /> <id nullFlavor="NA" /> < code codeSystem="local" code="UROBILU" displayName="UA UROBILINOGEN DIPSTICK" / > <statusCode code="completed" /> <effectiveTime value= "771088619777" /> <value unit="" xsi:type="PQ" value="NORMAL" /> <referenceRange> <observationRange> <text>NORMAL</ text> </observationRange> </referenceRange> </ observation> </component> <component> <observation moodCode= "EVN" classCode="OBS"> <templateId root="11.30.840.1.841480.10.20.22.4.2 " /> <id nullFlavor="NA" /> <code codeSystem="local" code= "BILU" displayName="UA BILIRUBIN DIPSTICK" /> <statusCode code= "completed" /> <effectiveTime value="237748069096" /> <value unit="" xsi:type="PQ" value="NEGATIVE" /> <referenceRange> < observationRange> <text>NEGATIVE</text> </ observationRange> </referenceRange> </observation> </ component> <component> <observation moodCode="EVN" classCode="OBS"> <templateId root="840.1.944365.10..22.4.2" /> <id nullFlavor="NA" /> <code codeSystem="local" code="ABDELRAHMAN" displayName="UA BLOOD DIPSTICK" /> <statusCode code="completed" /> < effectiveTime value="779820485804" /> <value unit="" xsi:type="PQ" value="NEGATIVE" /> <referenceRange> <observationRange> <text>NEGATIVE</text> </observationRange> </ referenceRange> </observation> </component> <component> <observation moodCode="EVN" classCode="OBS"> <templateId root= "2.16.840.1.624492.08.03.22.4.2" /> <id nullFlavor="NA" /> < code codeSystem="local" code="SPGRU" displayName="UA SPECIFIC GRAVITY" /> <statusCode code="completed" /> <effectiveTime value="538496711435 " /> <value unit="" xsi:type="PQ" value="1.015" /> < referenceRange> <observationRange> <text>1.015-1.025</ text> </observationRange> </referenceRange> </ observation> </component> <component> <observation moodCode= "EVN" classCode="OBS"> <templateId root="216.840.1.035858.08.03.22.4.2 " /> <id nullFlavor="NA" /> <code codeSystem="local" code="COLTON " displayName="UR PH" /> <statusCode code="completed" /> < effectiveTime value="801834423728" /> <value unit="" xsi:type="PQ" value="6.5" /> <referenceRange> <observationRange> <text>5.0-7.0</text> </observationRange> </ referenceRange> </observation> </component> </organizer> </entry > <entry> <organizer moodCode="EVN" classCode="BATTERY"> <templateId root="11.30.840.1.749352.10.4.1" /> <id nullFlavor="NA" /> <code codeSystem="local" code="PREGU" displayName="UR TEST" /> < statusCode code="completed" /> <component> <observation moodCode= "EVN" classCode="OBS"> <templateId root="11.30.840.1.768159.08.03.22.4.2 " /> <id nullFlavor="NA" /> <code codeSystem="local" code= "PREGU" displayName="UR TEST" /> <statusCode code="completed " /> <effectiveTime value="714457769857" /> <value unit="" xsi :type="PQ" value="NEGATIVE" /> <referenceRange> < observationRange> <text>NEGATIVE</text> </ observationRange> </referenceRange> </observation> </ component> </organizer> </entry> <entry> <organizer moodCode="EVN" classCode="BATTERY"> <templateId root="11.30.840.1.072302.08.03.22.4.1" /> <id nullFlavor="NA" /> <code codeSystem="local" code="CHL" displayName ="CHLAMYDIA DNA BY PCR" /> <statusCode code="completed" /> <component > <observation moodCode="EVN" classCode="OBS"> <templateId root= "11.30.840.1.050662.08.03.22.4.2" /> <id nullFlavor="NA" /> < code codeSystem="local" code="MB" displayName="Microbiology" /> < statusCode code="completed" /> <effectiveTime value="512977029348" /> <value xsi:type="ST" value="<pre><b>CHLAMYDIA DNA BY PCR - GONORRHOEA DNA BY PCR</b> See BelowCHLAMYDIA DNA BY PCR(F) Isabella Date/Time: 2016 19:12 Laina Date/Time: 06/12/2017 09:32SOURCE : URINESPEC DESC: [address] [address]Eqo BelowGONORRHOEA DNA BY PCR(F) Isabella Date/Time: 06/11/2017 19:12 Laina Date/Time: 06/12/2017 09:32SOURCE: URINESPEC DESC: [address] [address]</ pre>" /> <referenceRange> <observationRange> < text /> </observationRange> </referenceRange> </ observation> </component> </organizer> </entry> <entry> <organizer moodCode="EVN" classCode="BATTERY"> <templateId root= "2.16.840.1.546998.10.20.22.4.1" /> <id nullFlavor="NA" /> <code codeSystem="local" code="PREG" displayName=" TEST, SERUM" /> < statusCode code="completed" /> <component> <observation moodCode= "EVN" classCode="OBS"> <templateId root="2.16.840.1.187761.10.20.22.4.2 " /> <id nullFlavor="NA" /> <code codeSystem="local" code= "PREG" displayName=" TEST, SERUM" /> <statusCode code= "completed" /> <effectiveTime value="160992179517" /> <value unit="" xsi:type="PQ" value="NEGATIVE" /> <referenceRange> < observationRange> <text>NEGATIVE</text> </ observationRange> </referenceRange> </observation> </ component> </organizer> </entry> <entry> <organizer moodCode="EVN" classCode="BATTERY"> <templateId root="16.840.1.361046.10..4.1" /> <id nullFlavor="NA" /> <code codeSystem="local" code="RPR" displayName ="RAPID PLASMA REAGIN" /> <statusCode code="completed" /> <component> <observation moodCode="EVN" classCode="OBS"> <templateId root= "11.30.840.1.077512.08.03.22.4.2" /> <id nullFlavor="NA" /> < code codeSystem="local" code="RPR" displayName="RAPID PLASMA REAGIN" /> <statusCode code="completed" /> <effectiveTime value="" / > <value unit="" xsi:type="PQ" value="NONREACTIVE" /> < referenceRange> <observationRange> <text>NONREACTIVE</ text> </observationRange> </referenceRange> </ observation> </component> </organizer> </entry> <entry> <organizer moodCode="EVN" classCode="BATTERY"> <templateId root= "11.30.840.1.207274.08.03.22.4.1" /> <id nullFlavor="NA" /> <code codeSystem="local" code="HIV" displayName="HIV" /> <statusCode code= "completed" /> <component> <observation moodCode="EVN" classCode= "OBS"> <templateId root="11.30.840.1.874954.08.03.22.4.2" /> < id nullFlavor="NA" /> <code codeSystem="local" code="[id number]" displayName="AB HIV 1 2" /> <statusCode code="completed" /> <effectiveTime value="" /> <value unit="" xsi:type="PQ" value="NEGATIVE" /> <referenceRange> <observationRange> <text>NEGATIVE</text> </observationRange> </ referenceRange> </observation> </component> <component> <observation moodCode="EVN" classCode="OBS"> <templateId root= "216.840.1.879187.10.20.22.4.2" /> <id nullFlavor="NA" /> < code codeSystem="local" code="[id number]" displayName="HIV 1 P24 AG" /> <statusCode code="completed" /> <effectiveTime value="226515787320" /> <value unit="" xsi:type="PQ" value="NEGATIVE" /> < referenceRange> <observationRange> <text>NEGATIVE</text > </observationRange> </referenceRange> </observation > </component> </organizer> </entry> <entry> <organizer moodCode= "EVN" classCode="BATTERY"> <templateId root="216.840.1.065054.10..22.4.1 " /> <id nullFlavor="NA" /> <code codeSystem="local" code="WET" displayName="WET MOUNT" /> <statusCode code="completed" /> <component > <observation moodCode="EVN" classCode="OBS"> <templateId root= "16.840.1.449633.10.20.22.4.2" /> <id nullFlavor="NA" /> < code codeSystem="local" code="MB" displayName="Microbiology" /> < statusCode code="completed" /> <effectiveTime value="460524109155" /> <value xsi:type="ST" value="<pre><b>WET MOUNT</b> See BelowWET CHERYL(F ) Isabella Date/Time: 06/11/2017 20:32 Laina Date/Time: 06/11/2017 20:45SOURCE: VAGINALSPEC DESC: CLUE CELLS ( Abnormal)MODERATE CLUE CELLS PRESENT (Abnormal)TRICHOMONASNO TRICHOMONAS SEENWBCFEW WBCYEASTNO YEAST SEEN[address] [address]</pre>" /> <referenceRange> <observationRange> <text /> </observationRange> </referenceRange> </observation> </component> </organizer> </entry> <entry> < organizer moodCode="EVN" classCode="BATTERY"> <templateId root= "2.16.840.1.831734.10.20.22.4.1" /> <id nullFlavor="NA" /> <code codeSystem="local" code="GRAM" displayName="GRAM STAIN - CHLAMYDIA DNA BY PCR" / > <statusCode code="completed" /> <component> <observation moodCode="EVN" classCode="OBS"> <templateId root= "2.16.840.1.335473.10.20.22.4.2" /> <id nullFlavor="NA" /> < code codeSystem="local" code="MB" displayName="Microbiology" /> < statusCode code="completed" /> <effectiveTime value="896564721664" /> <value xsi:type="ST" value="<pre><b>GRAM STAIN</b> See BelowGRAM STAIN( F) Isabella Date/Time: 06/11/2017 20:32 Laina Date/Time: 06/11/2017 20:52SOURCE: VAGINALSPEC DESC: GRAM STAINRARE NEUTROPHILSMANY GRAM VARIABLE BACILLI RESEMBLING G. VAGINALISNO ORGANISMS SEEN RESEMBLING NEISSERIA GONORRHOEAE[address] [address]</pre>" /> <referenceRange> <observationRange> <text /> </observationRange> </referenceRange> </observation> </component> </organizer> </entry> <entry> < organizer moodCode="EVN" classCode="BATTERY"> <templateId root= "11.30.840.1.140760...4.1" /> <id nullFlavor="NA" /> <code codeSystem="local" code="CBCWD" displayName="CBC With Platelet and Differential " /> <statusCode code="completed" /> <component> <observation moodCode="EVN" classCode="OBS"> <templateId root= "840.1.841153.08.03.224.2" /> <id nullFlavor="NA" /> < code codeSystem="local" code="ABASR" displayName="Absolute Basophils" /> <statusCode code="completed" /> <effectiveTime value="952911283884" /> <value unit="10*3/uL" xsi:type="PQ" value="0.06" /> < referenceRange> <observationRange> <text>0.00-0.20</text > </observationRange> </referenceRange> </observation > </component> <component> <observation moodCode="EVN" classCode="OBS"> <templateId root="840.1.438691.08.03.224.2" /> <id nullFlavor="NA" /> <code codeSystem="local" code="AEOSR" displayName="Absolute Eosinophils" /> <statusCode code="completed" /> <effectiveTime value="327530106319" /> <value unit="10*3/uL" xsi:type="PQ" value="0.46" /> <referenceRange> < observationRange> <text>0.00-0.50</text> </ observationRange> </referenceRange> </observation> </ component> <component> <observation moodCode="EVN" classCode="OBS"> <templateId root="11.30.840.1.508633.08.03.22.4.2" /> <id nullFlavor="NA" /> <code codeSystem="local" code="ALYMR" displayName= "Absolute Lymphocytes" /> <statusCode code="completed" /> < effectiveTime value="451442769150" /> <value unit="10*3/uL" xsi:type= "PQ" value="2.05" /> <referenceRange> <observationRange> <text>0.80-3.30</text> </observationRange> </ referenceRange> </observation> </component> <component> <observation moodCode="EVN" classCode="OBS"> <templateId root= "2.16.840.1.020620.08.03.224.2" /> <id nullFlavor="NA" /> < code codeSystem="local" code="AMONR" displayName="Absolute Monocytes" /> <statusCode code="completed" /> <effectiveTime value="537127338639" /> <value unit="10*3/uL" xsi:type="PQ" value="0.53" /> < referenceRange> <observationRange> <text>0.30-1.00</text > </observationRange> </referenceRange> </observation > </component> <component> <observation moodCode="EVN" classCode="OBS"> <templateId root="2.16.840.1.177393.08.03.22.4.2" /> <id nullFlavor="NA" /> <code codeSystem="local" code="ASEGR" displayName="Absolute Neutrophils" /> <statusCode code="completed" /> <effectiveTime value="483638283124" /> <value unit="10*3/uL" xsi:type="PQ" value="4.64" /> <referenceRange> < observationRange> <text>1.90-7.00</text> </ observationRange> </referenceRange> </observation> </ component> <component> <observation moodCode="EVN" classCode="OBS"> <templateId root="216.840.1.772402.10.22.4.2" /> <id nullFlavor="NA" /> <code codeSystem="local" code="BASOR" displayName= "Basophils" /> <statusCode code="completed" /> <effectiveTime value="619881271391" /> <value unit="%" xsi:type="PQ" value="1" /> <referenceRange> <observationRange> <text>0-2< /text> </observationRange> </referenceRange> </ observation> </component> <component> <observation moodCode= "EVN" classCode="OBS"> <templateId root="216.840.1.617511.08.03.22.4.2 " /> <id nullFlavor="NA" /> <code codeSystem="local" code= "EOSR" displayName="Eosinophils" /> <statusCode code="completed" /> <effectiveTime value="156446821658" /> <value unit="%" xsi: type="PQ" value="6" /> <interpretationCode codeSystem="local" code="*" /> <referenceRange> <observationRange> <text>0- 4</text> </observationRange> </referenceRange> </ observation> </component> <component> <observation moodCode= "EVN" classCode="OBS"> <templateId root="216.840.1.875788.10.22.4.2 " /> <id nullFlavor="NA" /> <code codeSystem="local" code="HCT " displayName="HCT" /> <statusCode code="completed" /> < effectiveTime value="533894805360" /> <value unit="%" xsi:type="PQ " value="38.9" /> <referenceRange> <observationRange> <text>37.0-47.0</text> </observationRange> </ referenceRange> </observation> </component> <component> <observation moodCode="EVN" classCode="OBS"> <templateId root= "216.840.1.169705.10.20..4.2" /> <id nullFlavor="NA" /> < code codeSystem="local" code="HGB" displayName="HGB" /> <statusCode code="completed" /> <effectiveTime value="571197977653" /> < value unit="g/dL" xsi:type="PQ" value="13.4" /> <referenceRange> <observationRange> <text>12.0-16.0</text> </ observationRange> </referenceRange> </observation> </ component> <component> <observation moodCode="EVN" classCode="OBS"> <templateId root="11.30.840.1.182311.10...4.2" /> <id nullFlavor="NA" /> <code codeSystem="local" code="IMGA" displayName= "Immature Granulocytes" /> <statusCode code="completed" /> < effectiveTime value="762795589883" /> <value unit="%" xsi:type="PQ " value="0.1" /> <referenceRange> <observationRange> <text>0.0-1.0</text> </observationRange> </ referenceRange> </observation> </component> <component> <observation moodCode="EVN" classCode="OBS"> <templateId root= "16.840.1.109912.10.20.22.4.2" /> <id nullFlavor="NA" /> < code codeSystem="local" code="LYMPR" displayName="Lymphocytes" /> < statusCode code="completed" /> <effectiveTime value="237450471677" /> <value unit="%" xsi:type="PQ" value="27" /> < referenceRange> <observationRange> <text>20-46</text> </observationRange> </referenceRange> </observation> </component> <component> <observation moodCode="EVN" classCode= "OBS"> <templateId root="16.840.1.463136.22.4.2" /> < id nullFlavor="NA" /> <code codeSystem="local" code="MCH" displayName= "MCH" /> <statusCode code="completed" /> <effectiveTime value= "517456285153" /> <value unit="pg" xsi:type="PQ" value="31.2" /> <referenceRange> <observationRange> <text>27.0-32.0< /text> </observationRange> </referenceRange> </ observation> </component> <component> <observation moodCode= "EVN" classCode="OBS"> <templateId root="11.30.840.1.628233.22.4.2 " /> <id nullFlavor="NA" /> <code codeSystem="local" code= "MCHC" displayName="MCHC" /> <statusCode code="completed" /> < effectiveTime value="224947190415" /> <value unit="g/dL" xsi:type="PQ" value="34.4" /> <referenceRange> <observationRange> <text>32.0-36.0</text> </observationRange> </ referenceRange> </observation> </component> <component> <observation moodCode="EVN" classCode="OBS"> <templateId root= "2.840.1.182530.22.4.2" /> <id nullFlavor="NA" /> < code codeSystem="local" code="MCV" displayName="MCV" /> <statusCode code="completed" /> <effectiveTime value="519140258095" /> < value unit="fL" xsi:type="PQ" value="90.7" /> <referenceRange> <observationRange> <text>82.0-99.0</text> </ observationRange> </referenceRange> </observation> </ component> <component> <observation moodCode="EVN" classCode="OBS"> <templateId root="216.840.1.301478.08.03.22.4.2" /> <id nullFlavor="NA" /> <code codeSystem="local" code="MONOR" displayName= "Monocytes" /> <statusCode code="completed" /> <effectiveTime value="891266125972" /> <value unit="%" xsi:type="PQ" value="7" /> <referenceRange> <observationRange> <text>4-11 </text> </observationRange> </referenceRange> </ observation> </component> <component> <observation moodCode= "EVN" classCode="OBS"> <templateId root="216.840.1.968106...4.2 " /> <id nullFlavor="NA" /> <code codeSystem="local" code="MPV " displayName="MPV" /> <statusCode code="completed" /> < effectiveTime value="503863474606" /> <value unit="fL" xsi:type="PQ" value="10.9" /> <referenceRange> <observationRange> <text>9.4-12.4</text> </observationRange> </ referenceRange> </observation> </component> <component> <observation moodCode="EVN" classCode="OBS"> <templateId root= "16.840.1.649007.10..22.4.2" /> <id nullFlavor="NA" /> < code codeSystem="local" code="SEGR" displayName="Neutrophils" /> < statusCode code="completed" /> <effectiveTime value="506285847454" /> <value unit="%" xsi:type="PQ" value="60" /> < referenceRange> <observationRange> <text>51-75</text> </observationRange> </referenceRange> </observation> </component> <component> <observation moodCode="EVN" classCode= "OBS"> <templateId root="11.30.840.1.384561.10...4.2" /> < id nullFlavor="NA" /> <code codeSystem="local" code="NRBCA" displayName ="Nucleated RBC Automated" /> <statusCode code="completed" /> <effectiveTime value="239497522165" /> <value unit="/100WBC" xsi:type= "PQ" value="0.0" /> <referenceRange> <observationRange> <text /> </observationRange> </referenceRange> </observation> </component> <component> <observation moodCode="EVN" classCode="OBS"> <templateId root= "11.30.840.1.217276.10..22.4.2" /> <id nullFlavor="NA" /> < code codeSystem="local" code="PLT" displayName="Platelet Count" /> < statusCode code="completed" /> <effectiveTime value="980681238551" /> <value unit="K/uL" xsi:type="PQ" value="255" /> < referenceRange> <observationRange> <text>150-400</text> </observationRange> </referenceRange> </observation > </component> <component> <observation moodCode="EVN" classCode="OBS"> <templateId root="216.840.1.788954.08.03.22.4.2" /> <id nullFlavor="NA" /> <code codeSystem="local" code="RBC" displayName="RBC" /> <statusCode code="completed" /> < effectiveTime value="019987338774" /> <value unit="10*6/uL" xsi:type= "PQ" value="4.29" /> <referenceRange> <observationRange> <text>4.00-5.20</text> </observationRange> </ referenceRange> </observation> </component> <component> <observation moodCode="EVN" classCode="OBS"> <templateId root= "2.840.1.513507.08.03.22.4.2" /> <id nullFlavor="NA" /> < code codeSystem="local" code="RDW" displayName="RDW" /> <statusCode code="completed" /> <effectiveTime value="721373600884" /> < value unit="%" xsi:type="PQ" value="13.6" /> <referenceRange> <observationRange> <text>11.5-14.5</text> </ observationRange> </referenceRange> </observation> </ component> <component> <observation moodCode="EVN" classCode="OBS"> <templateId root="216.840.1.437437.08.03.22.4.2" /> <id nullFlavor="NA" /> <code codeSystem="local" code="WBCIR" displayName= "WBC" /> <statusCode code="completed" /> <effectiveTime value= "781313013200" /> <value unit="K/uL" xsi:type="PQ" value="7.8" /> <referenceRange> <observationRange> <text>4.8-10.8< /text> </observationRange> </referenceRange> </ observation> </component> </organizer> </entry> <entry> <organizer moodCode="EVN" classCode="BATTERY"> <templateId root= "840.1.088674.10..22.4.1" /> <id nullFlavor="NA" /> <code codeSystem="local" code="CMP" displayName="Comprehensive Metabolic Panel (CMP)" /> <statusCode code="completed" /> <component> <observation moodCode="EVN" classCode="OBS"> <templateId root= "11.30.840.1.463971.10..22.4.2" /> <id nullFlavor="NA" /> < code codeSystem="local" code="ALB" displayName="Albumin" /> < statusCode code="completed" /> <effectiveTime value="679946075205" /> <value unit="g/dL" xsi:type="PQ" value="4.2" /> < referenceRange> <observationRange> <text>3.5-4.8</text> </observationRange> </referenceRange> </observation > </component> <component> <observation moodCode="EVN" classCode="OBS"> <templateId root="840.1.890174.10..22.4.2" /> <id nullFlavor="NA" /> <code codeSystem="local" code="ALP" displayName="Alkaline Phosphatase" /> <statusCode code="completed" /> <effectiveTime value="023593084138" /> <value unit="U/L" xsi: type="PQ" value="57" /> <referenceRange> <observationRange> <text>26-104</text> </observationRange> </ referenceRange> </observation> </component> <component> <observation moodCode="EVN" classCode="OBS"> <templateId root= "216.840.1.794986.10..22.4.2" /> <id nullFlavor="NA" /> < code codeSystem="local" code="ALT" displayName="ALT (SGPT)" /> < statusCode code="completed" /> <effectiveTime value="147557830581" /> <value unit="U/L" xsi:type="PQ" value="12" /> < interpretationCode codeSystem="local" code="*" /> <referenceRange> <observationRange> <text>14-54</text> </ observationRange> </referenceRange> </observation> </ component> <component> <observation moodCode="EVN" classCode="OBS"> <templateId root="16.840.1.235992.10..4.2" /> <id nullFlavor="NA" /> <code codeSystem="local" code="AGAP" displayName= "Anion Gap" /> <statusCode code="completed" /> <effectiveTime value="147005794051" /> <value unit="mEq/L" xsi:type="PQ" value="7" /> <referenceRange> <observationRange> <text>3-20 </text> </observationRange> </referenceRange> </ observation> </component> <component> <observation moodCode= "EVN" classCode="OBS"> <templateId root="216.840.1.118545.10..4.2 " /> <id nullFlavor="NA" /> <code codeSystem="local" code="AST " displayName="AST (SGOT)" /> <statusCode code="completed" /> <effectiveTime value="158610546342" /> <value unit="U/L" xsi:type="PQ" value="12" /> <interpretationCode codeSystem="local" code="*" /> <referenceRange> <observationRange> <text>15-41</ text> </observationRange> </referenceRange> </ observation> </component> <component> <observation moodCode= "EVN" classCode="OBS"> <templateId root="11.30.840.1.908292.10..22.4.2 " /> <id nullFlavor="NA" /> <code codeSystem="local" code= "BILIT" displayName="Bilirubin Total" /> <statusCode code="completed" / > <effectiveTime value="174413475786" /> <value unit="mg/dL" xsi:type="PQ" value="0.5" /> <referenceRange> < observationRange> <text>0.2-1.2</text> </ observationRange> </referenceRange> </observation> </ component> <component> <observation moodCode="EVN" classCode="OBS"> <templateId root="11.30.840.1.032678.10..22.4.2" /> <id nullFlavor="NA" /> <code codeSystem="local" code="BUN" displayName="BUN " /> <statusCode code="completed" /> <effectiveTime value= "276455698178" /> <value unit="mg/dL" xsi:type="PQ" value="6" /> <referenceRange> <observationRange> <text>4-20</text > </observationRange> </referenceRange> </observation > </component> <component> <observation moodCode="EVN" classCode="OBS"> <templateId root="11.30.840.1.257584.10..4.2" /> <id nullFlavor="NA" /> <code codeSystem="local" code="CA" displayName="Calcium" /> <statusCode code="completed" /> < effectiveTime value="718792032739" /> <value unit="mg/dL" xsi:type="PQ " value="9.3" /> <referenceRange> <observationRange> <text>8.6-10.0</text> </observationRange> </ referenceRange> </observation> </component> <component> <observation moodCode="EVN" classCode="OBS"> <templateId root= "2.16.840.1.651140.08.03.22.4.2" /> <id nullFlavor="NA" /> < code codeSystem="local" code="CL" displayName="Chloride" /> < statusCode code="completed" /> <effectiveTime value="055058386556" /> <value unit="mEq/L" xsi:type="PQ" value="108" /> < referenceRange> <observationRange> <text>99-109</text> </observationRange> </referenceRange> </observation> </component> <component> <observation moodCode="EVN" classCode ="OBS"> <templateId root="2.16.840.1.540198.10..4.2" /> < id nullFlavor="NA" /> <code codeSystem="local" code="CO2" displayName= "CO2" /> <statusCode code="completed" /> <effectiveTime value= "903028769473" /> <value unit="mEq/L" xsi:type="PQ" value="23" /> <referenceRange> <observationRange> <text>22-32</ text> </observationRange> </referenceRange> </ observation> </component> <component> <observation moodCode= "EVN" classCode="OBS"> <templateId root="16.840.1.680065.10.2022.4.2 " /> <id nullFlavor="NA" /> <code codeSystem="local" code= "CREAT" displayName="Creatinine" /> <statusCode code="completed" /> <effectiveTime value="411151680633" /> <value unit="mg/dL" xsi: type="PQ" value="0.73" /> <referenceRange> <observationRange > <text>0.44-1.03</text> </observationRange> </ referenceRange> </observation> </component> <component> <observation moodCode="EVN" classCode="OBS"> <templateId root= "16.840.1.188554.22.4.2" /> <id nullFlavor="NA" /> < code codeSystem="local" code="GLOB" displayName="Globulin" /> < statusCode code="completed" /> <effectiveTime value="497954106717" /> <value unit="g/dL" xsi:type="PQ" value="2.8" /> < referenceRange> <observationRange> <text>1.9-4.3</text> </observationRange> </referenceRange> </observation > </component> <component> <observation moodCode="EVN" classCode="OBS"> <templateId root="11.30.840.1.325863.10.22.4.2" /> <id nullFlavor="NA" /> <code codeSystem="local" code="GLU" displayName="Glucose" /> <statusCode code="completed" /> < effectiveTime value="" /> <value unit="mg/dL" xsi:type="PQ " value="89" /> <referenceRange> <observationRange> <text>70-100</text> </observationRange> </ referenceRange> </observation> </component> <component> <observation moodCode="EVN" classCode="OBS"> <templateId root= "11.30.840.1.062519.10.4.2" /> <id nullFlavor="NA" /> < code codeSystem="local" code="K" displayName="Potassium" /> < statusCode code="completed" /> <effectiveTime value="" /> <value unit="mEq/L" xsi:type="PQ" value="3.6" /> < referenceRange> <observationRange> <text>3.6-5.1</text> </observationRange> </referenceRange> </observation > </component> <component> <observation moodCode="EVN" classCode="OBS"> <templateId root="840.1.116946.08.03.22.4.2" /> <id nullFlavor="NA" /> <code codeSystem="local" code="TP" displayName="Protein" /> <statusCode code="completed" /> < effectiveTime value="" /> <value unit="g/dL" xsi:type="PQ" value="7.0" /> <referenceRange> <observationRange> <text>6.1-7.9</text> </observationRange> </ referenceRange> </observation> </component> <component> <observation moodCode="EVN" classCode="OBS"> <templateId root= "11.30.840.1.800788.08.03.22.4.2" /> <id nullFlavor="NA" /> < code codeSystem="local" code="NA" displayName="Sodium" /> <statusCode code="completed" /> <effectiveTime value="" /> < value unit="mEq/L" xsi:type="PQ" value="138" /> <referenceRange> <observationRange> <text>136-144</text> </ observationRange> </referenceRange> </observation> </ component> </organizer> </entry> <entry> <organizer moodCode="EVN" classCode="BATTERY"> <templateId root="840.1.891839.10.22.4.1" /> <id nullFlavor="NA" /> <code codeSystem="local" code="LIPA" displayName="Lipase" /> <statusCode code="completed" /> <component> <observation moodCode="EVN" classCode="OBS"> <templateId root= "840.1.549913..22.4.2" /> <id nullFlavor="NA" /> < code codeSystem="local" code="LIPA" displayName="Lipase" /> < statusCode code="completed" /> <effectiveTime value="944697968297" /> <value unit="U/L" xsi:type="PQ" value="20" /> <referenceRange > <observationRange> <text>8-48</text> </ observationRange> </referenceRange> </observation> </ component> </organizer> </entry> <entry> <organizer moodCode="EVN" classCode="BATTERY"> <templateId root="840.1.558899.1022.4.1" /> <id nullFlavor="NA" /> <code codeSystem="local" code="GFR" displayName ="eGFR" /> <statusCode code="completed" /> <component> < observation moodCode="EVN" classCode="OBS"> <templateId root= "840.1.618243.10..22.4.2" /> <id nullFlavor="NA" /> < code codeSystem="local" code="GFR" displayName="eGFR" /> <statusCode code="completed" /> <effectiveTime value="142845754788" /> < value unit="mL/min" xsi:type="PQ" value=">60" /> <referenceRange> <observationRange> <text>>60</text> </ observationRange> </referenceRange> </observation> </ component> </organizer> </entry> <entry> <organizer moodCode="EVN" classCode="BATTERY"> <templateId root="216.840.1.735381.10..22.4.1" /> <id nullFlavor="NA" /> <code codeSystem="local" code="UA" displayName= "Urinalysis with reflex microscopic" /> <statusCode code="completed" /> <component> <observation moodCode="EVN" classCode="OBS"> < templateId root="216.840.1.649657.10..22.4.2" /> <id nullFlavor="NA " /> <code codeSystem="local" code="UAPP" displayName="Appearance" /> <statusCode code="completed" /> <effectiveTime value= "232880373834" /> <value unit="NA" xsi:type="PQ" value="Turbid" /> <interpretationCode codeSystem="local" code="*" /> < referenceRange> <observationRange> <text /> < /observationRange> </referenceRange> </observation> </ component> <component> <observation moodCode="EVN" classCode="OBS"> <templateId root="16.840.1.245350.10..22.4.2" /> <id nullFlavor="NA" /> <code codeSystem="local" code="UBIL" displayName= "Bilirubin" /> <statusCode code="completed" /> <effectiveTime value="" /> <value unit="NA" xsi:type="PQ" value="Negative " /> <referenceRange> <observationRange> <text> Negative</text> </observationRange> </referenceRange> </observation> </component> <component> <observation moodCode ="EVN" classCode="OBS"> <templateId root= "16.840.1.104848.08.03.22.4.2" /> <id nullFlavor="NA" /> < code codeSystem="local" code="UBLD" displayName="Blood" /> <statusCode code="completed" /> <effectiveTime value="" /> < value unit="NA" xsi:type="PQ" value="Pos 1+" /> <interpretationCode codeSystem="local" code="*" /> <referenceRange> < observationRange> <text>Negative</text> </ observationRange> </referenceRange> </observation> </ component> <component> <observation moodCode="EVN" classCode="OBS"> <templateId root="11.30.840.1.038668.08.03.22.4.2" /> <id nullFlavor="NA" /> <code codeSystem="local" code="UCOLR" displayName= "Color" /> <statusCode code="completed" /> <effectiveTime value="" /> <value unit="NA" xsi:type="PQ" value="Aliza" / > <interpretationCode codeSystem="local" code="*" /> < referenceRange> <observationRange> <text /> < /observationRange> </referenceRange> </observation> </ component> <component> <observation moodCode="EVN" classCode="OBS"> <templateId root="11.30.840.1.363264.08.03.22.4.2" /> <id nullFlavor="NA" /> <code codeSystem="local" code="UGLU" displayName= "Glucose, Urine" /> <statusCode code="completed" /> < effectiveTime value="" /> <value unit="" xsi:type="PQ" value="Negative" /> <referenceRange> <observationRange> <text>Negative</text> </observationRange> </ referenceRange> </observation> </component> <component> <observation moodCode="EVN" classCode="OBS"> <templateId root= "216.840.1.805504.08.03.22.4.2" /> <id nullFlavor="NA" /> < code codeSystem="local" code="UKET" displayName="Ketones" /> < statusCode code="completed" /> <effectiveTime value="" /> <value unit="" xsi:type="PQ" value="Negative" /> < referenceRange> <observationRange> <text>Negative</text > </observationRange> </referenceRange> </observation > </component> <component> <observation moodCode="EVN" classCode="OBS"> <templateId root="16.840.1.276950....4.2" /> <id nullFlavor="NA" /> <code codeSystem="local" code="ULEU" displayName="Leukocyte Esterase" /> <statusCode code="completed" /> <effectiveTime value="" /> <value unit="NA" xsi:type ="PQ" value="Pos 3+" /> <interpretationCode codeSystem="local" code="* " /> <referenceRange> <observationRange> <text> Negative</text> </observationRange> </referenceRange> </observation> </component> <component> <observation moodCode ="EVN" classCode="OBS"> <templateId root= "11.30.840.1.976906.10.22.4.2" /> <id nullFlavor="NA" /> < code codeSystem="local" code="UNIT" displayName="Nitrites" /> < statusCode code="completed" /> <effectiveTime value="" /> <value unit="NA" xsi:type="PQ" value="Negative" /> < referenceRange> <observationRange> <text>Negative</text > </observationRange> </referenceRange> </observation > </component> <component> <observation moodCode="EVN" classCode="OBS"> <templateId root="11.30.840.1.097792.22.4.2" /> <id nullFlavor="NA" /> <code codeSystem="local" code="UPH" displayName="pH" /> <statusCode code="completed" /> < effectiveTime value="" /> <value unit="NA" xsi:type="PQ" value="7.0" /> <referenceRange> <observationRange> <text>5.0-8.0</text> </observationRange> </ referenceRange> </observation> </component> <component> <observation moodCode="EVN" classCode="OBS"> <templateId root= "11.30.840.1.921017.1022.4.2" /> <id nullFlavor="NA" /> < code codeSystem="local" code="UPRO" displayName="Protein" /> < statusCode code="completed" /> <effectiveTime value="" /> <value unit="NA" xsi:type="PQ" value="Pos 2+" /> < interpretationCode codeSystem="local" code="*" /> <referenceRange> <observationRange> <text>Negative</text> </ observationRange> </referenceRange> </observation> </ component> <component> <observation moodCode="EVN" classCode="OBS"> <templateId root="216.840.1.964641.10.4.2" /> <id nullFlavor="NA" /> <code codeSystem="local" code="USPG" displayName= "Specific [place]" /> <statusCode code="completed" /> < effectiveTime value="152769984184" /> <value unit="NA" xsi:type="PQ" value="1.015" /> <referenceRange> <observationRange> <text>1.003-1.030</text> </observationRange> </ referenceRange> </observation> </component> <component> <observation moodCode="EVN" classCode="OBS"> <templateId root= "11.30.840.1.461800.08.03.22.4.2" /> <id nullFlavor="NA" /> < code codeSystem="local" code="UTYP" displayName="UA Collection type" /> <statusCode code="completed" /> <effectiveTime value="892428545111" / > <value unit="NA" xsi:type="PQ" value="Clean Catch" /> < referenceRange> <observationRange> <text /> < /observationRange> </referenceRange> </observation> </ component> <component> <observation moodCode="EVN" classCode="OBS"> <templateId root="16.840.1.303922.08.03.22.4.2" /> <id nullFlavor="NA" /> <code codeSystem="local" code="UURO" displayName= "Urobilinogen" /> <statusCode code="completed" /> < effectiveTime value="785090353401" /> <value unit="mg/dL" xsi:type="PQ " value="Negative" /> <referenceRange> <observationRange> <text><1.0</text> </observationRange> </ referenceRange> </observation> </component> </organizer> </entry > <entry> <organizer moodCode="EVN" classCode="BATTERY"> <templateId root="840.1.617246.08.03.22.4.1" /> <id nullFlavor="NA" /> <code codeSystem="local" code="UMIC" displayName="Urine Microscopic" /> < statusCode code="completed" /> <component> <observation moodCode= "EVN" classCode="OBS"> <templateId root="11.30.840.1.158049.08.03.22.4.2 " /> <id nullFlavor="NA" /> <code codeSystem="local" code= "UTRIC" displayName="Trichomonas" /> <statusCode code="completed" /> <effectiveTime value="" /> <value unit="NA" xsi: type="PQ" value="Present" /> <interpretationCode codeSystem="local" code="*" /> <referenceRange> <observationRange> <text /> </observationRange> </referenceRange> </ observation> </component> <component> <observation moodCode= "EVN" classCode="OBS"> <templateId root="11.30.840.1.348529.08.03.22.4.2 " /> <id nullFlavor="NA" /> <code codeSystem="local" code= "UBAC" displayName="Bacteria" /> <statusCode code="completed" /> <effectiveTime value="399455853691" /> <value unit="NA" xsi:type= "PQ" value="Moderate" /> <interpretationCode codeSystem="local" code="* " /> <referenceRange> <observationRange> <text /> </observationRange> </referenceRange> </ observation> </component> <component> <observation moodCode= "EVN" classCode="OBS"> <templateId root="11.30.840.1.301583.10.4.2 " /> <id nullFlavor="NA" /> <code codeSystem="local" code= "UEPI" displayName="Epithelial Cells" /> <statusCode code="completed" / > <effectiveTime value="" /> <value unit="/HPF" xsi:type="PQ" value="10" /> <referenceRange> < observationRange> <text /> </observationRange> </referenceRange> </observation> </component> <component> <observation moodCode="EVN" classCode="OBS"> <templateId root= "840.1.552740.08.03.22.4.2" /> <id nullFlavor="NA" /> < code codeSystem="local" code="URBC" displayName="RBC, Urine" /> < statusCode code="completed" /> <effectiveTime value="284668682117" /> <value unit="/HPF" xsi:type="PQ" value="2" /> <referenceRange > <observationRange> <text>0-2</text> </ observationRange> </referenceRange> </observation> </ component> <component> <observation moodCode="EVN" classCode="OBS"> <templateId root="840.1.386817.08.03.22.4.2" /> <id nullFlavor="NA" /> <code codeSystem="local" code="UMUC" displayName= "Urine Mucus" /> <statusCode code="completed" /> < effectiveTime value="" /> <value unit="NA" xsi:type="PQ" value="Present" /> <referenceRange> <observationRange> <text /> </observationRange> </referenceRange> </observation> </component> <component> <observation moodCode="EVN" classCode="OBS"> <templateId root= "16.840.1.718809.1022.4.2" /> <id nullFlavor="NA" /> < code codeSystem="local" code="UWBC" displayName="WBC, Urine" /> < statusCode code="completed" /> <effectiveTime value="370421223860" /> <value unit="/HPF" xsi:type="PQ" value="10" /> < interpretationCode codeSystem="local" code="*" /> <referenceRange> <observationRange> <text>0-4</text> </ observationRange> </referenceRange> </observation> </ component> </organizer> </entry> <entry> <organizer moodCode="EVN" classCode="BATTERY"> <templateId root="11.30.840.1.285589.08.03.22.4.1" /> <id nullFlavor="NA" /> <code codeSystem="local" code="PREGN" displayName=" Screen, Urine NPT" /> <statusCode code="completed" / > <component> <observation moodCode="EVN" classCode="OBS"> <templateId root="11.30.840.1.817058.1022.4.2" /> <id nullFlavor="NA " /> <code codeSystem="local" code="PREGN" displayName=" Screen, Urine NPT" /> <statusCode code="completed" /> < effectiveTime value="113517589336" /> <value unit="NA" xsi:type="PQ" value="Negative" /> <referenceRange> <observationRange> <text /> </observationRange> </referenceRange> </observation> </component> </organizer> </entry> <entry> < organizer moodCode="EVN" classCode="BATTERY"> <templateId root= "11.30.840.1.960756.10...4.1" /> <id nullFlavor="NA" /> <code codeSystem="local" code="UPREG" displayName=" Screen, Urine" /> < statusCode code="completed" /> <component> <observation moodCode= "EVN" classCode="OBS"> <templateId root="840.1.867338.08.03.22.4.2 " /> <id nullFlavor="NA" /> <code codeSystem="local" code= "UPREG" displayName=" Screen, Urine" /> <statusCode code= "completed" /> <effectiveTime value="650245221355" /> <value unit="NA" xsi:type="PQ" value="Negative" /> <referenceRange> <observationRange> <text /> </observationRange> </referenceRange> </observation> </component> </organizer> < /entry> <entry> <organizer moodCode="EVN" classCode="BATTERY"> < templateId root="840.1.046485.08.03.22.4.1" /> <id nullFlavor="NA" /> <code codeSystem="local" code="UA" displayName="Urinalysis with reflex microscopic" /> <statusCode code="completed" /> <component> < observation moodCode="EVN" classCode="OBS"> <templateId root= "11.30.840.1.217039.10...4.2" /> <id nullFlavor="NA" /> < code codeSystem="local" code="UAPP" displayName="Appearance" /> < statusCode code="completed" /> <effectiveTime value="473357794986" /> <value unit="NA" xsi:type="PQ" value="Sl Cloudy" /> < referenceRange> <observationRange> <text /> < /observationRange> </referenceRange> </observation> </ component> <component> <observation moodCode="EVN" classCode="OBS"> <templateId root="16.840.1.462356.08.03.22.4.2" /> <id nullFlavor="NA" /> <code codeSystem="local" code="UBIL" displayName= "Bilirubin" /> <statusCode code="completed" /> <effectiveTime value="006672871770" /> <value unit="NA" xsi:type="PQ" value="Negative " /> <referenceRange> <observationRange> <text> Negative</text> </observationRange> </referenceRange> </observation> </component> <component> <observation moodCode ="EVN" classCode="OBS"> <templateId root= "840.1.443266.08.03.22.4.2" /> <id nullFlavor="NA" /> < code codeSystem="local" code="UBLD" displayName="Blood" /> <statusCode code="completed" /> <effectiveTime value="424610394473" /> < value unit="NA" xsi:type="PQ" value="Negative" /> <referenceRange> <observationRange> <text>Negative</text> </ observationRange> </referenceRange> </observation> </ component> <component> <observation moodCode="EVN" classCode="OBS"> <templateId root="11.30.840.1.517929.22.4.2" /> <id nullFlavor="NA" /> <code codeSystem="local" code="UCOLR" displayName= "Color" /> <statusCode code="completed" /> <effectiveTime value="692253137541" /> <value unit="NA" xsi:type="PQ" value="Aliza" / > <interpretationCode codeSystem="local" code="*" /> < referenceRange> <observationRange> <text /> < /observationRange> </referenceRange> </observation> </ component> <component> <observation moodCode="EVN" classCode="OBS"> <templateId root="11.30.840.1.101814.10..22.4.2" /> <id nullFlavor="NA" /> <code codeSystem="local" code="UGLU" displayName= "Glucose, Urine" /> <statusCode code="completed" /> < effectiveTime value="559854993989" /> <value unit="" xsi:type="PQ" value="Negative" /> <referenceRange> <observationRange> <text>Negative</text> </observationRange> </ referenceRange> </observation> </component> <component> <observation moodCode="EVN" classCode="OBS"> <templateId root= "11.30.840.1.363884.10..22.4.2" /> <id nullFlavor="NA" /> < code codeSystem="local" code="UKET" displayName="Ketones" /> < statusCode code="completed" /> <effectiveTime value="703938522994" /> <value unit="" xsi:type="PQ" value="Trace" /> < interpretationCode codeSystem="local" code="*" /> <referenceRange> <observationRange> <text>Negative</text> </ observationRange> </referenceRange> </observation> </ component> <component> <observation moodCode="EVN" classCode="OBS"> <templateId root="840.1.238684.10..22.4.2" /> <id nullFlavor="NA" /> <code codeSystem="local" code="ULEU" displayName= "Leukocyte Esterase" /> <statusCode code="completed" /> < effectiveTime value="232549933692" /> <value unit="NA" xsi:type="PQ" value="Pos 3+" /> <interpretationCode codeSystem="local" code="*" /> <referenceRange> <observationRange> <text> Negative</text> </observationRange> </referenceRange> </observation> </component> <component> <observation moodCode ="EVN" classCode="OBS"> <templateId root= "16.840.1.515850.10..4.2" /> <id nullFlavor="NA" /> < code codeSystem="local" code="UNIT" displayName="Nitrites" /> < statusCode code="completed" /> <effectiveTime value="541764678857" /> <value unit="NA" xsi:type="PQ" value="Positive" /> < interpretationCode codeSystem="local" code="*" /> <referenceRange> <observationRange> <text>Negative</text> </ observationRange> </referenceRange> </observation> </ component> <component> <observation moodCode="EVN" classCode="OBS"> <templateId root="16.840.1.194446.10..4.2" /> <id nullFlavor="NA" /> <code codeSystem="local" code="UPH" displayName="pH " /> <statusCode code="completed" /> <effectiveTime value= "053894464097" /> <value unit="NA" xsi:type="PQ" value="5.0" /> <referenceRange> <observationRange> <text>5.0-8.0</ text> </observationRange> </referenceRange> </ observation> </component> <component> <observation moodCode= "EVN" classCode="OBS"> <templateId root="216.840.1.746740.10.4.2 " /> <id nullFlavor="NA" /> <code codeSystem="local" code= "UPRO" displayName="Protein" /> <statusCode code="completed" /> <effectiveTime value="564137425675" /> <value unit="NA" xsi:type="PQ " value="Negative" /> <referenceRange> <observationRange> <text>Negative</text> </observationRange> </ referenceRange> </observation> </component> <component> <observation moodCode="EVN" classCode="OBS"> <templateId root= "11.30.840.1.426056.08.03.22.4.2" /> <id nullFlavor="NA" /> < code codeSystem="local" code="USPG" displayName="Specific Merrill" /> < statusCode code="completed" /> <effectiveTime value="134386319682" /> <value unit="NA" xsi:type="PQ" value="1.010" /> < referenceRange> <observationRange> <text>1.003-1.030</ text> </observationRange> </referenceRange> </ observation> </component> <component> <observation moodCode= "EVN" classCode="OBS"> <templateId root="11.30.840.1.020520.08.03.22.4.2 " /> <id nullFlavor="NA" /> <code codeSystem="local" code= "UTYP" displayName="UA Collection type" /> <statusCode code="completed " /> <effectiveTime value="900703035390" /> <value unit="NA" xsi:type="PQ" value="Clean Catch" /> <referenceRange> < observationRange> <text /> </observationRange> </referenceRange> </observation> </component> <component> <observation moodCode="EVN" classCode="OBS"> <templateId root= "16.840.1.159092.10.22.4.2" /> <id nullFlavor="NA" /> < code codeSystem="local" code="UURO" displayName="Urobilinogen" /> < statusCode code="completed" /> <effectiveTime value="778352282699" /> <value unit="mg/dL" xsi:type="PQ" value="2.0" /> < interpretationCode codeSystem="local" code="*" /> <referenceRange> <observationRange> <text><1.0</text> </ observationRange> </referenceRange> </observation> </ component> </organizer> </entry> <entry> <organizer moodCode="EVN" classCode="BATTERY"> <templateId root="11.30.840.1.924359.10.4.1" /> <id nullFlavor="NA" /> <code codeSystem="local" code="UMIC" displayName="Urine Microscopic" /> <statusCode code="completed" /> < component> <observation moodCode="EVN" classCode="OBS"> < templateId root="11.30.840.1.168607.1022.4.2" /> <id nullFlavor="NA " /> <code codeSystem="local" code="UBAC" displayName="Bacteria" /> <statusCode code="completed" /> <effectiveTime value= "347011146237" /> <value unit="NA" xsi:type="PQ" value="Occasional" /> <interpretationCode codeSystem="local" code="*" /> < referenceRange> <observationRange> <text /> < /observationRange> </referenceRange> </observation> </ component> <component> <observation moodCode="EVN" classCode="OBS"> <templateId root="16.840.1.601938.10..4.2" /> <id nullFlavor="NA" /> <code codeSystem="local" code="UEPI" displayName= "Epithelial Cells" /> <statusCode code="completed" /> < effectiveTime value="" /> <value unit="/HPF" xsi:type="PQ" value="2" /> <referenceRange> <observationRange> <text /> </observationRange> </referenceRange> </ observation> </component> <component> <observation moodCode= "EVN" classCode="OBS"> <templateId root="11.30.840.1.531830.08.03.22.4.2 " /> <id nullFlavor="NA" /> <code codeSystem="local" code= "URBC" displayName="RBC, Urine" /> <statusCode code="completed" /> <effectiveTime value="" /> <value unit="/HPF" xsi: type="PQ" value="0" /> <referenceRange> <observationRange> <text>0-2</text> </observationRange> </ referenceRange> </observation> </component> <component> <observation moodCode="EVN" classCode="OBS"> <templateId root= "11.30.840.1.657855.08.03.22.4.2" /> <id nullFlavor="NA" /> < code codeSystem="local" code="UMUC" displayName="Urine Mucus" /> < statusCode code="completed" /> <effectiveTime value="" /> <value unit="NA" xsi:type="PQ" value="Present" /> < referenceRange> <observationRange> <text /> < /observationRange> </referenceRange> </observation> </ component> <component> <observation moodCode="EVN" classCode="OBS"> <templateId root="16.840.1.634388.1022.4.2" /> <id nullFlavor="NA" /> <code codeSystem="local" code="UWBC" displayName= "WBC, Urine" /> <statusCode code="completed" /> < effectiveTime value="703000547537" /> <value unit="/HPF" xsi:type="PQ" value="10" /> <interpretationCode codeSystem="local" code="*" /> <referenceRange> <observationRange> <text>0-4</text > </observationRange> </referenceRange> </observation > </component> </organizer> </entry> <entry> <organizer moodCode= "EVN" classCode="BATTERY"> <templateId root="11.30.840.1.551690.08.03.22.4.1 " /> <id nullFlavor="NA" /> <code codeSystem="local" code="UDRGH" displayName="Urine Drug Screen" /> <statusCode code="completed" /> < component> <observation moodCode="EVN" classCode="OBS"> < templateId root="11.30.840.1.354494.1022.4.2" /> <id nullFlavor="NA " /> <code codeSystem="local" code="UAMP1" displayName="Amph/Meth/ Ecstasy" /> <statusCode code="completed" /> <effectiveTime value="419298558827" /> <value unit="NA" xsi:type="PQ" value="Positive " /> <interpretationCode codeSystem="local" code="*" /> < referenceRange> <observationRange> <text /> < /observationRange> </referenceRange> </observation> </ component> <component> <observation moodCode="EVN" classCode="OBS"> <templateId root="216.840.1.732135.10..4.2" /> <id nullFlavor="NA" /> <code codeSystem="local" code="UBAR1" displayName= "Barbiturates" /> <statusCode code="completed" /> < effectiveTime value="" /> <value unit="NA" xsi:type="PQ" value="Negative" /> <referenceRange> <observationRange> <text /> </observationRange> </referenceRange> </observation> </component> <component> <observation moodCode="EVN" classCode="OBS"> <templateId root= "16.840.1.548689.104.2" /> <id nullFlavor="NA" /> < code codeSystem="local" code="UBEN1" displayName="Benzodiazepine" /> < statusCode code="completed" /> <effectiveTime value="341709062061" /> <value unit="NA" xsi:type="PQ" value="Negative" /> < referenceRange> <observationRange> <text /> < /observationRange> </referenceRange> </observation> </ component> <component> <observation moodCode="EVN" classCode="OBS"> <templateId root="16.840.1.737589.10.4.2" /> <id nullFlavor="NA" /> <code codeSystem="local" code="UCAN1" displayName= "Cannabinoid" /> <statusCode code="completed" /> < effectiveTime value="761337993676" /> <value unit="NA" xsi:type="PQ" value="Positive" /> <interpretationCode codeSystem="local" code="*" /> <referenceRange> <observationRange> <text /> </observationRange> </referenceRange> </observation> </component> <component> <observation moodCode="EVN" classCode ="OBS"> <templateId root="16.840.1.132470.1022.4.2" /> < id nullFlavor="NA" /> <code codeSystem="local" code="UCOC1" displayName ="Cocaine" /> <statusCode code="completed" /> <effectiveTime value="790774970739" /> <value unit="NA" xsi:type="PQ" value="Negative " /> <referenceRange> <observationRange> <text /> </observationRange> </referenceRange> </ observation> </component> <component> <observation moodCode= "EVN" classCode="OBS"> <templateId root="11.30.840.1.607084.08.03.22.4.2 " /> <id nullFlavor="NA" /> <code codeSystem="local" code= "UMTD1" displayName="EDDP (Methadone met.)" /> <statusCode code= "completed" /> <effectiveTime value="720662288449" /> <value unit="NA" xsi:type="PQ" value="Negative" /> <referenceRange> <observationRange> <text /> </observationRange> </referenceRange> </observation> </component> <component> <observation moodCode="EVN" classCode="OBS"> <templateId root= "11.30.840.1.046403.10.4.2" /> <id nullFlavor="NA" /> < code codeSystem="local" code="UOPI1" displayName="Opiate" /> < statusCode code="completed" /> <effectiveTime value="357968346358" /> <value unit="NA" xsi:type="PQ" value="Negative" /> < referenceRange> <observationRange> <text /> < /observationRange> </referenceRange> </observation> </ component> <component> <observation moodCode="EVN" classCode="OBS"> <templateId root="16.840.1.395906.08.03.22.4.2" /> <id nullFlavor="NA" /> <code codeSystem="local" code="UPCP1" displayName= "Phencyclidine (PCP)" /> <statusCode code="completed" /> < effectiveTime value="226073717114" /> <value unit="NA" xsi:type="PQ" value="Negative" /> <referenceRange> <observationRange> <text /> </observationRange> </referenceRange> </observation> </component> </organizer> </entry> <entry> < organizer moodCode="EVN" classCode="BATTERY"> <templateId root= "11.30.840.1.413407.08.03.22.4.1" /> <id nullFlavor="NA" /> <code codeSystem="local" code="UA" displayName="URINALYSIS, ROUTINE" /> < statusCode code="completed" /> <component> <observation moodCode= "EVN" classCode="OBS"> <templateId root="16.840.1.209612.08.03.22.4.2 " /> <id nullFlavor="NA" /> <code codeSystem="local" code= "LEUESU" displayName="UA LEUKOCYTE ESTERASE DIPSTICK" /> <statusCode code="completed" /> <effectiveTime value="685618666729" /> < value unit="" xsi:type="PQ" value="NEGATIVE" /> <referenceRange> <observationRange> <text>NEGATIVE</text> </ observationRange> </referenceRange> </observation> </ component> <component> <observation moodCode="EVN" classCode="OBS"> <templateId root="16.840.1.625945.10..4.2" /> <id nullFlavor="NA" /> <code codeSystem="local" code="NITRIU" displayName= "UA NITRITE DIPSTICK" /> <statusCode code="completed" /> < effectiveTime value="" /> <value unit="" xsi:type="PQ" value="NEGATIVE" /> <referenceRange> <observationRange> <text>NEGATIVE</text> </observationRange> </ referenceRange> </observation> </component> <component> <observation moodCode="EVN" classCode="OBS"> <templateId root= "11.30.840.1.268049.10.4.2" /> <id nullFlavor="NA" /> < code codeSystem="local" code="PROTEIU" displayName="UA PROTEIN DIPSTICK" /> <statusCode code="completed" /> <effectiveTime value= "" /> <value unit="" xsi:type="PQ" value="NEGATIVE" /> <referenceRange> <observationRange> <text>NEGATIVE </text> </observationRange> </referenceRange> </ observation> </component> <component> <observation moodCode= "EVN" classCode="OBS"> <templateId root="11.30.840.1.467295.10.4.2 " /> <id nullFlavor="NA" /> <code codeSystem="local" code= "DGLUU" displayName="UA GLUCOSE DIPSTICK" /> <statusCode code= "completed" /> <effectiveTime value="926721885985" /> <value unit="" xsi:type="PQ" value="NEGATIVE" /> <referenceRange> < observationRange> <text>NEGATIVE</text> </ observationRange> </referenceRange> </observation> </ component> <component> <observation moodCode="EVN" classCode="OBS"> <templateId root="16.840.1.510212.08.03.22.4.2" /> <id nullFlavor="NA" /> <code codeSystem="local" code="KETONU" displayName= "UA KETONE DIPSTICK" /> <statusCode code="completed" /> < effectiveTime value="002066619218" /> <value unit="" xsi:type="PQ" value="NEGATIVE" /> <referenceRange> <observationRange> <text>NEGATIVE</text> </observationRange> </ referenceRange> </observation> </component> <component> <observation moodCode="EVN" classCode="OBS"> <templateId root= "11.30.840.1.190555.08.03.22.4.2" /> <id nullFlavor="NA" /> < code codeSystem="local" code="UROBILU" displayName="UA UROBILINOGEN DIPSTICK" / > <statusCode code="completed" /> <effectiveTime value= "140337528200" /> <value unit="" xsi:type="PQ" value="NORMAL" /> <referenceRange> <observationRange> <text>NORMAL</ text> </observationRange> </referenceRange> </ observation> </component> <component> <observation moodCode= "EVN" classCode="OBS"> <templateId root="11.30.840.1.164865.08.03.22.4.2 " /> <id nullFlavor="NA" /> <code codeSystem="local" code= "BILU" displayName="UA BILIRUBIN DIPSTICK" /> <statusCode code= "completed" /> <effectiveTime value="157030633528" /> <value unit="" xsi:type="PQ" value="NEGATIVE" /> <referenceRange> < observationRange> <text>NEGATIVE</text> </ observationRange> </referenceRange> </observation> </ component> <component> <observation moodCode="EVN" classCode="OBS"> <templateId root="11.30.840.1.940842.10..4.2" /> <id nullFlavor="NA" /> <code codeSystem="local" code="ABDELRAHMAN" displayName="UA BLOOD DIPSTICK" /> <statusCode code="completed" /> < effectiveTime value="806138221795" /> <value unit="" xsi:type="PQ" value="NEGATIVE" /> <referenceRange> <observationRange> <text>NEGATIVE</text> </observationRange> </ referenceRange> </observation> </component> <component> <observation moodCode="EVN" classCode="OBS"> <templateId root= "11.30.840.1.033220.10...4.2" /> <id nullFlavor="NA" /> < code codeSystem="local" code="SPGRU" displayName="UA SPECIFIC GRAVITY" /> <statusCode code="completed" /> <effectiveTime value="147827314737 " /> <value unit="" xsi:type="PQ" value=">=1.030" /> < interpretationCode codeSystem="local" code="*" /> <referenceRange> <observationRange> <text>1.015-1.025</text> </ observationRange> </referenceRange> </observation> </ component> <component> <observation moodCode="EVN" classCode="OBS"> <templateId root="11.30.830.1.820130.10.22.4.2" /> <id nullFlavor="NA" /> <code codeSystem="local" code="COLTON" displayName="UR PH" /> <statusCode code="completed" /> <effectiveTime value= "667986235248" /> <value unit="" xsi:type="PQ" value="5.5" /> <referenceRange> <observationRange> <text>5.0-7.0</text > </observationRange> </referenceRange> </observation > </component> </organizer> </entry> <entry> <organizer moodCode= "EVN" classCode="BATTERY"> <templateId root="216.840.1.945345.10..4.1 " /> <id nullFlavor="NA" /> <code codeSystem="local" code="PREGU" displayName="UR TEST" /> <statusCode code="completed" /> < component> <observation moodCode="EVN" classCode="OBS"> < templateId root="216.840.1.362189.10..22.4.2" /> <id nullFlavor="NA " /> <code codeSystem="local" code="PREGU" displayName="UR TEST" /> <statusCode code="completed" /> <effectiveTime value= "948029828854" /> <value unit="" xsi:type="PQ" value="NEGATIVE" /> <referenceRange> <observationRange> <text>NEGATIVE </text> </observationRange> </referenceRange> </ observation> </component> </organizer> </entry> <entry> <organizer moodCode="EVN" classCode="BATTERY"> <templateId root= "216.840.1.309654.10..4.1" /> <id nullFlavor="NA" /> <code codeSystem="local" code="UPREG" displayName=" Screen, Urine" /> < statusCode code="completed" /> <component> <observation moodCode= "EVN" classCode="OBS"> <templateId root="216.840.1.231314.10..22.4.2 " /> <id nullFlavor="NA" /> <code codeSystem="local" code= "UPREG" displayName=" Screen, Urine" /> <statusCode code= "completed" /> <effectiveTime value="097452837660" /> <value unit="NA" xsi:type="PQ" value="Negative" /> <referenceRange> <observationRange> <text /> </observationRange> </referenceRange> </observation> </component> </organizer> < /entry> <entry> <organizer moodCode="EVN" classCode="BATTERY"> < templateId root="216.840.1.231954.10..22.4.1" /> <id nullFlavor="NA" /> <code codeSystem="local" code="CBCWD" displayName="CBC With Platelet and Differential" /> <statusCode code="completed" /> <component> < observation moodCode="EVN" classCode="OBS"> <templateId root= "216.840.1.616511.10..22.4.2" /> <id nullFlavor="NA" /> < code codeSystem="local" code="ABASR" displayName="Absolute Basophils" /> <statusCode code="completed" /> <effectiveTime value="465104151476" /> <value unit="10*3/uL" xsi:type="PQ" value="0.03" /> < referenceRange> <observationRange> <text>0.00-0.20</text > </observationRange> </referenceRange> </observation > </component> <component> <observation moodCode="EVN" classCode="OBS"> <templateId root="216.840.1.873539...4.2" /> <id nullFlavor="NA" /> <code codeSystem="local" code="AEOSR" displayName="Absolute Eosinophils" /> <statusCode code="completed" /> <effectiveTime value="" /> <value unit="10*3/uL" xsi:type="PQ" value="0.49" /> <referenceRange> < observationRange> <text>0.00-0.50</text> </ observationRange> </referenceRange> </observation> </ component> <component> <observation moodCode="EVN" classCode="OBS"> <templateId root="16.840.1.619091.08.03.22.4.2" /> <id nullFlavor="NA" /> <code codeSystem="local" code="ALYMR" displayName= "Absolute Lymphocytes" /> <statusCode code="completed" /> < effectiveTime value="" /> <value unit="10*3/uL" xsi:type= "PQ" value="2.01" /> <referenceRange> <observationRange> <text>0.80-3.30</text> </observationRange> </ referenceRange> </observation> </component> <component> <observation moodCode="EVN" classCode="OBS"> <templateId root= "16.840.1.598764...4.2" /> <id nullFlavor="NA" /> < code codeSystem="local" code="AMONR" displayName="Absolute Monocytes" /> <statusCode code="completed" /> <effectiveTime value="" /> <value unit="10*3/uL" xsi:type="PQ" value="0.72" /> < referenceRange> <observationRange> <text>0.30-1.00</text > </observationRange> </referenceRange> </observation > </component> <component> <observation moodCode="EVN" classCode="OBS"> <templateId root="216.840.1.234384.10.20.22.4.2" /> <id nullFlavor="NA" /> <code codeSystem="local" code="ASEGR" displayName="Absolute Neutrophils" /> <statusCode code="completed" /> <effectiveTime value="065207915182" /> <value unit="10*3/uL" xsi:type="PQ" value="5.63" /> <referenceRange> < observationRange> <text>1.90-7.00</text> </ observationRange> </referenceRange> </observation> </ component> <component> <observation moodCode="EVN" classCode="OBS"> <templateId root="16.840.1.627472.10.4.2" /> <id nullFlavor="NA" /> <code codeSystem="local" code="BASOR" displayName= "Basophils" /> <statusCode code="completed" /> <effectiveTime value="123031478145" /> <value unit="%" xsi:type="PQ" value="0" /> <referenceRange> <observationRange> <text>0-2< /text> </observationRange> </referenceRange> </ observation> </component> <component> <observation moodCode= "EVN" classCode="OBS"> <templateId root="16.840.1.278284.10.20.22.4.2 " /> <id nullFlavor="NA" /> <code codeSystem="local" code= "EOSR" displayName="Eosinophils" /> <statusCode code="completed" /> <effectiveTime value="848334942633" /> <value unit="%" xsi: type="PQ" value="6" /> <interpretationCode codeSystem="local" code="*" /> <referenceRange> <observationRange> <text>0- 4</text> </observationRange> </referenceRange> </ observation> </component> <component> <observation moodCode= "EVN" classCode="OBS"> <templateId root="2.16.840.1.078610.10.20.22.4.2 " /> <id nullFlavor="NA" /> <code codeSystem="local" code="HCT " displayName="HCT" /> <statusCode code="completed" /> < effectiveTime value="728593849308" /> <value unit="%" xsi:type="PQ " value="36.1" /> <interpretationCode codeSystem="local" code="*" /> <referenceRange> <observationRange> <text>37.0- 47.0</text> </observationRange> </referenceRange> </ observation> </component> <component> <observation moodCode= "EVN" classCode="OBS"> <templateId root="2.16.840.1.514683.10.20.22.4.2 " /> <id nullFlavor="NA" /> <code codeSystem="local" code="HGB " displayName="HGB" /> <statusCode code="completed" /> < effectiveTime value="077363401850" /> <value unit="g/dL" xsi:type="PQ" value="12.3" /> <referenceRange> <observationRange> <text>12.0-16.0</text> </observationRange> </ referenceRange> </observation> </component> <component> <observation moodCode="EVN" classCode="OBS"> <templateId root= "16.840.1.288072.10.20.22.4.2" /> <id nullFlavor="NA" /> < code codeSystem="local" code="IMGA" displayName="Immature Granulocytes" /> <statusCode code="completed" /> <effectiveTime value=" " /> <value unit="%" xsi:type="PQ" value="0.2" /> < referenceRange> <observationRange> <text>0.0-1.0</text> </observationRange> </referenceRange> </observation > </component> <component> <observation moodCode="EVN" classCode="OBS"> <templateId root="11.30.840.1.203824.10.22.4.2" /> <id nullFlavor="NA" /> <code codeSystem="local" code="LYMPR" displayName="Lymphocytes" /> <statusCode code="completed" /> < effectiveTime value="" /> <value unit="%" xsi:type="PQ " value="23" /> <referenceRange> <observationRange> <text>20-46</text> </observationRange> </ referenceRange> </observation> </component> <component> <observation moodCode="EVN" classCode="OBS"> <templateId root= "16.840.1.013540.10.2022.4.2" /> <id nullFlavor="NA" /> < code codeSystem="local" code="MCH" displayName="MCH" /> <statusCode code="completed" /> <effectiveTime value="" /> < value unit="pg" xsi:type="PQ" value="31.3" /> <referenceRange> <observationRange> <text>27.0-32.0</text> </ observationRange> </referenceRange> </observation> </ component> <component> <observation moodCode="EVN" classCode="OBS"> <templateId root="216.840.1.579099.10..4.2" /> <id nullFlavor="NA" /> <code codeSystem="local" code="MCHC" displayName= "MCHC" /> <statusCode code="completed" /> <effectiveTime value ="" /> <value unit="g/dL" xsi:type="PQ" value="34.1" /> <referenceRange> <observationRange> <text>32.0- 36.0</text> </observationRange> </referenceRange> </ observation> </component> <component> <observation moodCode= "EVN" classCode="OBS"> <templateId root="11.30.840.1.682036.08.03.22.4.2 " /> <id nullFlavor="NA" /> <code codeSystem="local" code="MCV " displayName="MCV" /> <statusCode code="completed" /> < effectiveTime value="" /> <value unit="fL" xsi:type="PQ" value="91.9" /> <referenceRange> <observationRange> <text>82.0-99.0</text> </observationRange> </ referenceRange> </observation> </component> <component> <observation moodCode="EVN" classCode="OBS"> <templateId root= "11.30.840.1.420920...4.2" /> <id nullFlavor="NA" /> < code codeSystem="local" code="MONOR" displayName="Monocytes" /> < statusCode code="completed" /> <effectiveTime value="" /> <value unit="%" xsi:type="PQ" value="8" /> <referenceRange > <observationRange> <text>4-11</text> </ observationRange> </referenceRange> </observation> </ component> <component> <observation moodCode="EVN" classCode="OBS"> <templateId root="16.840.1.533410.10..22.4.2" /> <id nullFlavor="NA" /> <code codeSystem="local" code="MPV" displayName="MPV " /> <statusCode code="completed" /> <effectiveTime value= "131212971609" /> <value unit="fL" xsi:type="PQ" value="10.1" /> <referenceRange> <observationRange> <text>9.4-12.4</ text> </observationRange> </referenceRange> </ observation> </component> <component> <observation moodCode= "EVN" classCode="OBS"> <templateId root="11.30.840.1.868742..22.4.2 " /> <id nullFlavor="NA" /> <code codeSystem="local" code= "SEGR" displayName="Neutrophils" /> <statusCode code="completed" /> <effectiveTime value="785980086257" /> <value unit="%" xsi: type="PQ" value="63" /> <referenceRange> <observationRange> <text>51-75</text> </observationRange> </ referenceRange> </observation> </component> <component> <observation moodCode="EVN" classCode="OBS"> <templateId root= "11.30.840.1.645927.10.20.22.4.2" /> <id nullFlavor="NA" /> < code codeSystem="local" code="NRBCA" displayName="Nucleated RBC Automated" /> <statusCode code="completed" /> <effectiveTime value= "" /> <value unit="/100WBC" xsi:type="PQ" value="0.0" /> <referenceRange> <observationRange> <text /> </observationRange> </referenceRange> </observation> </component> <component> <observation moodCode="EVN" classCode= "OBS"> <templateId root="11.30.840.1.127445.10..22.4.2" /> < id nullFlavor="NA" /> <code codeSystem="local" code="PLT" displayName= "Platelet Count" /> <statusCode code="completed" /> < effectiveTime value="" /> <value unit="K/uL" xsi:type="PQ" value="240" /> <referenceRange> <observationRange> <text>150-400</text> </observationRange> </ referenceRange> </observation> </component> <component> <observation moodCode="EVN" classCode="OBS"> <templateId root= "11.30.840.1.916329...22.4.2" /> <id nullFlavor="NA" /> < code codeSystem="local" code="RBC" displayName="RBC" /> <statusCode code="completed" /> <effectiveTime value="" /> < value unit="10*6/uL" xsi:type="PQ" value="3.93" /> <interpretationCode codeSystem="local" code="*" /> <referenceRange> < observationRange> <text>4.00-5.20</text> </ observationRange> </referenceRange> </observation> </ component> <component> <observation moodCode="EVN" classCode="OBS"> <templateId root="840.1.579103.22.4.2" /> <id nullFlavor="NA" /> <code codeSystem="local" code="RDW" displayName="RDW " /> <statusCode code="completed" /> <effectiveTime value= "767809229684" /> <value unit="%" xsi:type="PQ" value="12.9" /> <referenceRange> <observationRange> <text>11.5- 14.5</text> </observationRange> </referenceRange> </ observation> </component> <component> <observation moodCode= "EVN" classCode="OBS"> <templateId root="840.1.546517.22.4.2 " /> <id nullFlavor="NA" /> <code codeSystem="local" code= "WBCIR" displayName="WBC" /> <statusCode code="completed" /> < effectiveTime value="010469023060" /> <value unit="K/uL" xsi:type="PQ" value="8.9" /> <referenceRange> <observationRange> <text>4.8-10.8</text> </observationRange> </ referenceRange> </observation> </component> </organizer> </entry > <entry> <organizer moodCode="EVN" classCode="BATTERY"> <templateId root="840.1.304931.22.4.1" /> <id nullFlavor="NA" /> <code codeSystem="local" code="UA" displayName="Urinalysis with reflex microscopic" / > <statusCode code="completed" /> <component> <observation moodCode="EVN" classCode="OBS"> <templateId root= "840.1.639217.102022.4.2" /> <id nullFlavor="NA" /> < code codeSystem="local" code="UAPP" displayName="Appearance" /> < statusCode code="completed" /> <effectiveTime value="394813091656" /> <value unit="NA" xsi:type="PQ" value="Sl Cloudy" /> < referenceRange> <observationRange> <text /> < /observationRange> </referenceRange> </observation> </ component> <component> <observation moodCode="EVN" classCode="OBS"> <templateId root="11.30.840.1.400220.10..22.4.2" /> <id nullFlavor="NA" /> <code codeSystem="local" code="UBIL" displayName= "Bilirubin" /> <statusCode code="completed" /> <effectiveTime value="571715216367" /> <value unit="NA" xsi:type="PQ" value="Positive " /> <interpretationCode codeSystem="local" code="*" /> < referenceRange> <observationRange> <text>Negative</text > </observationRange> </referenceRange> </observation > </component> <component> <observation moodCode="EVN" classCode="OBS"> <templateId root="11.30.840.1.363327.10..22.4.2" /> <id nullFlavor="NA" /> <code codeSystem="local" code="UBLD" displayName="Blood" /> <statusCode code="completed" /> < effectiveTime value="034772606832" /> <value unit="NA" xsi:type="PQ" value="Negative" /> <referenceRange> <observationRange> <text>Negative</text> </observationRange> </ referenceRange> </observation> </component> <component> <observation moodCode="EVN" classCode="OBS"> <templateId root= "11.30.840.1.005153.10..4.2" /> <id nullFlavor="NA" /> < code codeSystem="local" code="UCOLR" displayName="Color" /> < statusCode code="completed" /> <effectiveTime value="632749494327" /> <value unit="NA" xsi:type="PQ" value="Aliza" /> < interpretationCode codeSystem="local" code="*" /> <referenceRange> <observationRange> <text /> </observationRange> </referenceRange> </observation> </component> < component> <observation moodCode="EVN" classCode="OBS"> < templateId root="16.840.1.773894.08.03.22.4.2" /> <id nullFlavor="NA " /> <code codeSystem="local" code="UGLU" displayName="Glucose, Urine" /> <statusCode code="completed" /> <effectiveTime value= "746711679556" /> <value unit="" xsi:type="PQ" value="Negative" /> <referenceRange> <observationRange> <text>Negative </text> </observationRange> </referenceRange> </ observation> </component> <component> <observation moodCode= "EVN" classCode="OBS"> <templateId root="16.840.1.519797.10.4.2 " /> <id nullFlavor="NA" /> <code codeSystem="local" code= "UKET" displayName="Ketones" /> <statusCode code="completed" /> <effectiveTime value="063841965596" /> <value unit="" xsi:type="PQ" value="Trace" /> <interpretationCode codeSystem="local" code="*" /> <referenceRange> <observationRange> <text> Negative</text> </observationRange> </referenceRange> </observation> </component> <component> <observation moodCode ="EVN" classCode="OBS"> <templateId root= "216.840.1.222816.10.4.2" /> <id nullFlavor="NA" /> < code codeSystem="local" code="ULEU" displayName="Leukocyte Esterase" /> <statusCode code="completed" /> <effectiveTime value="" / > <value unit="NA" xsi:type="PQ" value="Negative" /> < referenceRange> <observationRange> <text>Negative</text > </observationRange> </referenceRange> </observation > </component> <component> <observation moodCode="EVN" classCode="OBS"> <templateId root="16.840.1.548841.08.03.22.4.2" /> <id nullFlavor="NA" /> <code codeSystem="local" code="UNIT" displayName="Nitrites" /> <statusCode code="completed" /> < effectiveTime value="" /> <value unit="NA" xsi:type="PQ" value="Negative" /> <referenceRange> <observationRange> <text>Negative</text> </observationRange> </ referenceRange> </observation> </component> <component> <observation moodCode="EVN" classCode="OBS"> <templateId root= "16.840.1.568156.1022.4.2" /> <id nullFlavor="NA" /> < code codeSystem="local" code="UPH" displayName="pH" /> <statusCode code ="completed" /> <effectiveTime value="" /> <value unit="NA" xsi:type="PQ" value="5.0" /> <referenceRange> < observationRange> <text>5.0-8.0</text> </ observationRange> </referenceRange> </observation> </ component> <component> <observation moodCode="EVN" classCode="OBS"> <templateId root="11.30.840.1.882796.10.20.22.4.2" /> <id nullFlavor="NA" /> <code codeSystem="local" code="UPRO" displayName= "Protein" /> <statusCode code="completed" /> <effectiveTime value="047924143183" /> <value unit="NA" xsi:type="PQ" value="Pos 2+" / > <interpretationCode codeSystem="local" code="*" /> < referenceRange> <observationRange> <text>Negative</text > </observationRange> </referenceRange> </observation > </component> <component> <observation moodCode="EVN" classCode="OBS"> <templateId root="840.1.206828.10..4.2" /> <id nullFlavor="NA" /> <code codeSystem="local" code="USPG" displayName="Specific Merrill" /> <statusCode code="completed" /> <effectiveTime value="132269009339" /> <value unit="NA" xsi:type= "PQ" value="1.045" /> <interpretationCode codeSystem="local" code="*" / > <referenceRange> <observationRange> <text> 1.003-1.030</text> </observationRange> </referenceRange> </observation> </component> <component> <observation moodCode="EVN" classCode="OBS"> <templateId root= "11.30.840.1.354321.10..22.4.2" /> <id nullFlavor="NA" /> < code codeSystem="local" code="UTYP" displayName="UA Collection type" /> <statusCode code="completed" /> <effectiveTime value="040311364399" / > <value unit="NA" xsi:type="PQ" value="Catheter" /> < referenceRange> <observationRange> <text /> < /observationRange> </referenceRange> </observation> </ component> <component> <observation moodCode="EVN" classCode="OBS"> <templateId root="840.1.448500.08.03.22.4.2" /> <id nullFlavor="NA" /> <code codeSystem="local" code="UURO" displayName= "Urobilinogen" /> <statusCode code="completed" /> < effectiveTime value="471109766952" /> <value unit="mg/dL" xsi:type="PQ " value="Negative" /> <referenceRange> <observationRange> <text><1.0</text> </observationRange> </ referenceRange> </observation> </component> </organizer> </entry > <entry> <organizer moodCode="EVN" classCode="BATTERY"> <templateId root="11.30.840.1.957934.08.03.22.4.1" /> <id nullFlavor="NA" /> <code codeSystem="local" code="UMIC" displayName="Urine Microscopic" /> < statusCode code="completed" /> <component> <observation moodCode= "EVN" classCode="OBS"> <templateId root="840.1.998757.08.03.22.4.2 " /> <id nullFlavor="NA" /> <code codeSystem="local" code= "UEPI" displayName="Epithelial Cells" /> <statusCode code="completed" / > <effectiveTime value="098392252551" /> <value unit="/HPF" xsi:type="PQ" value="2" /> <referenceRange> < observationRange> <text /> </observationRange> </referenceRange> </observation> </component> <component> <observation moodCode="EVN" classCode="OBS"> <templateId root= "11.30.840.1.593966.10.22.4.2" /> <id nullFlavor="NA" /> < code codeSystem="local" code="UHCST" displayName="Hyaline Casts" /> < statusCode code="completed" /> <effectiveTime value="899450680437" /> <value unit="/LPF" xsi:type="PQ" value="7" /> < interpretationCode codeSystem="local" code="*" /> <referenceRange> <observationRange> <text>0-3</text> </ observationRange> </referenceRange> </observation> </ component> <component> <observation moodCode="EVN" classCode="OBS"> <templateId root="840.1.598838.08.03.22.4.2" /> <id nullFlavor="NA" /> <code codeSystem="local" code="URBC" displayName= "RBC, Urine" /> <statusCode code="completed" /> < effectiveTime value="105297935087" /> <value unit="/HPF" xsi:type="PQ" value="0" /> <referenceRange> <observationRange> <text>0-2</text> </observationRange> </referenceRange> </observation> </component> <component> <observation moodCode="EVN" classCode="OBS"> <templateId root= "11.30.840.1.750967.10.2022.4.2" /> <id nullFlavor="NA" /> < code codeSystem="local" code="UMUC" displayName="Urine Mucus" /> < statusCode code="completed" /> <effectiveTime value="378090806777" /> <value unit="NA" xsi:type="PQ" value="Present" /> < referenceRange> <observationRange> <text /> < /observationRange> </referenceRange> </observation> </ component> <component> <observation moodCode="EVN" classCode="OBS"> <templateId root="11.30.840.1.236059.08.03.22.4.2" /> <id nullFlavor="NA" /> <code codeSystem="local" code="UWBC" displayName= "WBC, Urine" /> <statusCode code="completed" /> < effectiveTime value="347826792878" /> <value unit="/HPF" xsi:type="PQ" value="2" /> <referenceRange> <observationRange> <text>0-4</text> </observationRange> </referenceRange> </observation> </component> </organizer> </entry> <entry> < organizer moodCode="EVN" classCode="BATTERY"> <templateId root= "11.30.840.1.351534.08.03.22.4.1" /> <id nullFlavor="NA" /> <code codeSystem="local" code="UDRGH" displayName="Urine Drug Screen" /> < statusCode code="completed" /> <component> <observation moodCode= "EVN" classCode="OBS"> <templateId root="11.30.840.1.067784.08.03.22.4.2 " /> <id nullFlavor="NA" /> <code codeSystem="local" code= "UAMP1" displayName="Amph/Meth/Ecstasy" /> <statusCode code="completed " /> <effectiveTime value="533799642085" /> <value unit="NA" xsi:type="PQ" value="Positive" /> <interpretationCode codeSystem="local " code="*" /> <referenceRange> <observationRange> <text /> </observationRange> </referenceRange> </ observation> </component> <component> <observation moodCode= "EVN" classCode="OBS"> <templateId root="11.30.840.1.985345.08.03.224.2 " /> <id nullFlavor="NA" /> <code codeSystem="local" code= "UBAR1" displayName="Barbiturates" /> <statusCode code="completed" /> <effectiveTime value="" /> <value unit="NA" xsi: type="PQ" value="Negative" /> <referenceRange> < observationRange> <text /> </observationRange> </referenceRange> </observation> </component> <component> <observation moodCode="EVN" classCode="OBS"> <templateId root= "840.1.557082.08.03.224.2" /> <id nullFlavor="NA" /> < code codeSystem="local" code="UBEN1" displayName="Benzodiazepine" /> < statusCode code="completed" /> <effectiveTime value="646669571868" /> <value unit="NA" xsi:type="PQ" value="Negative" /> < referenceRange> <observationRange> <text /> < /observationRange> </referenceRange> </observation> </ component> <component> <observation moodCode="EVN" classCode="OBS"> <templateId root="11.30.840.1.409676.08.03.22.4.2" /> <id nullFlavor="NA" /> <code codeSystem="local" code="UCAN1" displayName= "Cannabinoid" /> <statusCode code="completed" /> < effectiveTime value="" /> <value unit="NA" xsi:type="PQ" value="Negative" /> <referenceRange> <observationRange> <text /> </observationRange> </referenceRange> </observation> </component> <component> <observation moodCode="EVN" classCode="OBS"> <templateId root= "16.840.1.926552.22.4.2" /> <id nullFlavor="NA" /> < code codeSystem="local" code="UCOC1" displayName="Cocaine" /> < statusCode code="completed" /> <effectiveTime value="" /> <value unit="NA" xsi:type="PQ" value="Negative" /> < referenceRange> <observationRange> <text /> < /observationRange> </referenceRange> </observation> </ component> <component> <observation moodCode="EVN" classCode="OBS"> <templateId root="11.30.840.1.838058.08.03.22.4.2" /> <id nullFlavor="NA" /> <code codeSystem="local" code="UMTD1" displayName= "EDDP (Methadone met.)" /> <statusCode code="completed" /> < effectiveTime value="" /> <value unit="NA" xsi:type="PQ" value="Negative" /> <referenceRange> <observationRange> <text /> </observationRange> </referenceRange> </observation> </component> <component> <observation moodCode="EVN" classCode="OBS"> <templateId root= "16.840.1.623913..22.4.2" /> <id nullFlavor="NA" /> < code codeSystem="local" code="UOPI1" displayName="Opiate" /> < statusCode code="completed" /> <effectiveTime value="167928196256" /> <value unit="NA" xsi:type="PQ" value="Negative" /> < referenceRange> <observationRange> <text /> < /observationRange> </referenceRange> </observation> </ component> <component> <observation moodCode="EVN" classCode="OBS"> <templateId root="11.30.840.1.462160.08.03.22.4.2" /> <id nullFlavor="NA" /> <code codeSystem="local" code="UPCP1" displayName= "Phencyclidine (PCP)" /> <statusCode code="completed" /> < effectiveTime value="641242680602" /> <value unit="NA" xsi:type="PQ" value="Negative" /> <referenceRange> <observationRange> <text /> </observationRange> </referenceRange> </observation> </component> </organizer> </entry> <entry> < organizer moodCode="EVN" classCode="BATTERY"> <templateId root= "11.30.840.1.775879.08.03.22.4.1" /> <id nullFlavor="NA" /> <code codeSystem="local" code="SALIC" displayName="Salicylate" /> <statusCode code="completed" /> <component> <observation moodCode="EVN" classCode="OBS"> <templateId root="11.30.840.1.123370.08.03.22.4.2" /> <id nullFlavor="NA" /> <code codeSystem="local" code="SALIC" displayName="Salicylate" /> <statusCode code="completed" /> < effectiveTime value="148945523967" /> <value unit="mg/dL" xsi:type="PQ " value="<4" /> <referenceRange> <observationRange> <text>0-30</text> </observationRange> </ referenceRange> </observation> </component> </organizer> </entry > <entry> <organizer moodCode="EVN" classCode="BATTERY"> <templateId root="11.30.840.1.230469.08.03.22.4.1" /> <id nullFlavor="NA" /> <code codeSystem="local" code="ACETM" displayName="Acetaminophen" /> <statusCode code="completed" /> <component> <observation moodCode="EVN" classCode="OBS"> <templateId root="11.30.840.1.616555.08.03.22.4.2" /> <id nullFlavor="NA" /> <code codeSystem="local" code="ACETM" displayName="Acetaminophen" /> <statusCode code="completed" /> <effectiveTime value="658937856423" /> <value unit="mcg/mL" xsi:type= "PQ" value="277" /> <interpretationCode codeSystem="local" code="" / > <referenceRange> <observationRange> <text>10- 30</text> </observationRange> </referenceRange> </ observation> </component> </organizer> </entry> <entry> <organizer moodCode="EVN" classCode="BATTERY"> <templateId root= "11.30.840.1.484326.08.03.22.4.1" /> <id nullFlavor="NA" /> <code codeSystem="local" code="CMP" displayName="Comprehensive Metabolic Panel (CMP)" /> <statusCode code="completed" /> <component> <observation moodCode="EVN" classCode="OBS"> <templateId root= "11.30.840.1.476697.08.03.22.4.2" /> <id nullFlavor="NA" /> < code codeSystem="local" code="ALB" displayName="Albumin" /> < statusCode code="completed" /> <effectiveTime value="873604127894" /> <value unit="g/dL" xsi:type="PQ" value="3.9" /> < referenceRange> <observationRange> <text>3.5-4.8</text> </observationRange> </referenceRange> </observation > </component> <component> <observation moodCode="EVN" classCode="OBS"> <templateId root="216.840.1.330527.08.03.22.4.2" /> <id nullFlavor="NA" /> <code codeSystem="local" code="ALP" displayName="Alkaline Phosphatase" /> <statusCode code="completed" /> <effectiveTime value="227113086089" /> <value unit="U/L" xsi: type="PQ" value="61" /> <referenceRange> <observationRange> <text>26-104</text> </observationRange> </ referenceRange> </observation> </component> <component> <observation moodCode="EVN" classCode="OBS"> <templateId root= "2.16.840.1.795370.10...4.2" /> <id nullFlavor="NA" /> < code codeSystem="local" code="ALT" displayName="ALT (SGPT)" /> < statusCode code="completed" /> <effectiveTime value="547982791476" /> <value unit="U/L" xsi:type="PQ" value="19" /> <referenceRange > <observationRange> <text>14-54</text> </ observationRange> </referenceRange> </observation> </ component> <component> <observation moodCode="EVN" classCode="OBS"> <templateId root="11.30.840.1.617474.10.20.22.4.2" /> <id nullFlavor="NA" /> <code codeSystem="local" code="AGAP" displayName= "Anion Gap" /> <statusCode code="completed" /> <effectiveTime value="402811218974" /> <value unit="mEq/L" xsi:type="PQ" value="9" /> <referenceRange> <observationRange> <text>3-20 </text> </observationRange> </referenceRange> </ observation> </component> <component> <observation moodCode= "EVN" classCode="OBS"> <templateId root="11.30.840.1.048261.10.22.4.2 " /> <id nullFlavor="NA" /> <code codeSystem="local" code="AST " displayName="AST (SGOT)" /> <statusCode code="completed" /> <effectiveTime value="849772583487" /> <value unit="U/L" xsi:type="PQ" value="22" /> <referenceRange> <observationRange> <text>15-41</text> </observationRange> </referenceRange > </observation> </component> <component> <observation moodCode="EVN" classCode="OBS"> <templateId root= "11.30.840.1.238636.10.2022.4.2" /> <id nullFlavor="NA" /> < code codeSystem="local" code="BILIT" displayName="Bilirubin Total" /> < statusCode code="completed" /> <effectiveTime value="546637575660" /> <value unit="mg/dL" xsi:type="PQ" value="0.9" /> < referenceRange> <observationRange> <text>0.2-1.2</text> </observationRange> </referenceRange> </observation > </component> <component> <observation moodCode="EVN" classCode="OBS"> <templateId root="216.840.1.280502.08.03.22.4.2" /> <id nullFlavor="NA" /> <code codeSystem="local" code="BUN" displayName="BUN" /> <statusCode code="completed" /> < effectiveTime value="146100646537" /> <value unit="mg/dL" xsi:type="PQ " value="11" /> <referenceRange> <observationRange> <text>4-20</text> </observationRange> </referenceRange > </observation> </component> <component> <observation moodCode="EVN" classCode="OBS"> <templateId root= "11.30.840.1.571578.08.03.22.4.2" /> <id nullFlavor="NA" /> < code codeSystem="local" code="CA" displayName="Calcium" /> <statusCode code="completed" /> <effectiveTime value="468987041862" /> < value unit="mg/dL" xsi:type="PQ" value="8.5" /> <interpretationCode codeSystem="local" code="*" /> <referenceRange> < observationRange> <text>8.6-10.0</text> </ observationRange> </referenceRange> </observation> </ component> <component> <observation moodCode="EVN" classCode="OBS"> <templateId root="11.30.840.1.353404.22.4.2" /> <id nullFlavor="NA" /> <code codeSystem="local" code="CL" displayName= "Chloride" /> <statusCode code="completed" /> <effectiveTime value="504835338360" /> <value unit="mEq/L" xsi:type="PQ" value="110" / > <interpretationCode codeSystem="local" code="*" /> < referenceRange> <observationRange> <text>99-109</text> </observationRange> </referenceRange> </observation> </component> <component> <observation moodCode="EVN" classCode ="OBS"> <templateId root="11.30.840.1.605285.22.4.2" /> < id nullFlavor="NA" /> <code codeSystem="local" code="CO2" displayName= "CO2" /> <statusCode code="completed" /> <effectiveTime value= "737802161135" /> <value unit="mEq/L" xsi:type="PQ" value="21" /> <interpretationCode codeSystem="local" code="*" /> <referenceRange > <observationRange> <text>22-32</text> </ observationRange> </referenceRange> </observation> </ component> <component> <observation moodCode="EVN" classCode="OBS"> <templateId root="11.30.840.1.039446.22.4.2" /> <id nullFlavor="NA" /> <code codeSystem="local" code="CREAT" displayName= "Creatinine" /> <statusCode code="completed" /> < effectiveTime value="278951873894" /> <value unit="mg/dL" xsi:type="PQ " value="0.83" /> <referenceRange> <observationRange> <text>0.44-1.03</text> </observationRange> </ referenceRange> </observation> </component> <component> <observation moodCode="EVN" classCode="OBS"> <templateId root= "11.30.840.1.328647.22.4.2" /> <id nullFlavor="NA" /> < code codeSystem="local" code="GLOB" displayName="Globulin" /> < statusCode code="completed" /> <effectiveTime value="598993995354" /> <value unit="g/dL" xsi:type="PQ" value="2.7" /> < referenceRange> <observationRange> <text>1.9-4.3</text> </observationRange> </referenceRange> </observation > </component> <component> <observation moodCode="EVN" classCode="OBS"> <templateId root="216.840.1.279053.08.03.22.4.2" /> <id nullFlavor="NA" /> <code codeSystem="local" code="GLU" displayName="Glucose" /> <statusCode code="completed" /> < effectiveTime value="211713565129" /> <value unit="mg/dL" xsi:type="PQ " value="90" /> <referenceRange> <observationRange> <text>70-100</text> </observationRange> </ referenceRange> </observation> </component> <component> <observation moodCode="EVN" classCode="OBS"> <templateId root= "216.840.1.542960.08.03.22.4.2" /> <id nullFlavor="NA" /> < code codeSystem="local" code="K" displayName="Potassium" /> < statusCode code="completed" /> <effectiveTime value="263989944950" /> <value unit="mEq/L" xsi:type="PQ" value="3.5" /> < interpretationCode codeSystem="local" code="*" /> <referenceRange> <observationRange> <text>3.6-5.1</text> </ observationRange> </referenceRange> </observation> </ component> <component> <observation moodCode="EVN" classCode="OBS"> <templateId root="11.30.840.1.154242.10.22.4.2" /> <id nullFlavor="NA" /> <code codeSystem="local" code="TP" displayName= "Protein" /> <statusCode code="completed" /> <effectiveTime value="422511769908" /> <value unit="g/dL" xsi:type="PQ" value="6.6" / > <referenceRange> <observationRange> <text>6.1 -7.9</text> </observationRange> </referenceRange> </ observation> </component> <component> <observation moodCode= "EVN" classCode="OBS"> <templateId root="11.30.840.1.428214.08.03.22.4.2 " /> <id nullFlavor="NA" /> <code codeSystem="local" code="NA " displayName="Sodium" /> <statusCode code="completed" /> < effectiveTime value="121212650352" /> <value unit="mEq/L" xsi:type="PQ " value="140" /> <referenceRange> <observationRange> <text>136-144</text> </observationRange> </ referenceRange> </observation> </component> </organizer> </entry > <entry> <organizer moodCode="EVN" classCode="BATTERY"> <templateId root="11.30.840.1.740525.10..22.4.1" /> <id nullFlavor="NA" /> <code codeSystem="local" code="ALC" displayName="Alcohol, Blood" /> <statusCode code="completed" /> <component> <observation moodCode="EVN" classCode="OBS"> <templateId root="840.1.952931.10.22.4.2" /> <id nullFlavor="NA" /> <code codeSystem="local" code="ALC" displayName="Alcohol, Blood" /> <statusCode code="completed" /> <effectiveTime value="590214979562" /> <value unit="mg/dL" xsi:type= "PQ" value="Not Detected" /> <referenceRange> < observationRange> <text /> </observationRange> </referenceRange> </observation> </component> </organizer> </ entry> <entry> <organizer moodCode="EVN" classCode="BATTERY"> < templateId root="16.840.1.181902.10.4.1" /> <id nullFlavor="NA" /> <code codeSystem="local" code="GFR" displayName="eGFR" /> < statusCode code="completed" /> <component> <observation moodCode= "EVN" classCode="OBS"> <templateId root="16.840.1.455641.10...4.2 " /> <id nullFlavor="NA" /> <code codeSystem="local" code="GFR " displayName="eGFR" /> <statusCode code="completed" /> < effectiveTime value="504749979936" /> <value unit="mL/min" xsi:type="PQ " value=">60" /> <referenceRange> <observationRange> <text>>60</text> </observationRange> </ referenceRange> </observation> </component> </organizer> </entry > <entry> <organizer moodCode="EVN" classCode="BATTERY"> <templateId root="16.840.1.460731.10..22.4.1" /> <id nullFlavor="NA" /> <code codeSystem="local" code="CBCND" displayName="CBC With Platelet No Differential" /> <statusCode code="completed" /> <component> <observation moodCode="EVN" classCode="OBS"> <templateId root= "16.840.1.094482.10.20.22.4.2" /> <id nullFlavor="NA" /> < code codeSystem="local" code="HCT" displayName="HCT" /> <statusCode code="completed" /> <effectiveTime value="311520183506" /> < value unit="%" xsi:type="PQ" value="36.8" /> <interpretationCode codeSystem="local" code="*" /> <referenceRange> < observationRange> <text>37.0-47.0</text> </ observationRange> </referenceRange> </observation> </ component> <component> <observation moodCode="EVN" classCode="OBS"> <templateId root="840.1.530956.10..4.2" /> <id nullFlavor="NA" /> <code codeSystem="local" code="HGB" displayName="HGB " /> <statusCode code="completed" /> <effectiveTime value= "572006927252" /> <value unit="g/dL" xsi:type="PQ" value="12.7" /> <referenceRange> <observationRange> <text>12.0- 16.0</text> </observationRange> </referenceRange> </ observation> </component> <component> <observation moodCode= "EVN" classCode="OBS"> <templateId root="11.30.840.1.487467.10.20.22.4.2 " /> <id nullFlavor="NA" /> <code codeSystem="local" code="MCH " displayName="MCH" /> <statusCode code="completed" /> < effectiveTime value="995221168389" /> <value unit="pg" xsi:type="PQ" value="31.8" /> <referenceRange> <observationRange> <text>27.0-32.0</text> </observationRange> </ referenceRange> </observation> </component> <component> <observation moodCode="EVN" classCode="OBS"> <templateId root= "11.30.840.1.942789.10..4.2" /> <id nullFlavor="NA" /> < code codeSystem="local" code="MCHC" displayName="MCHC" /> <statusCode code="completed" /> <effectiveTime value="" /> < value unit="g/dL" xsi:type="PQ" value="34.5" /> <referenceRange> <observationRange> <text>32.0-36.0</text> </ observationRange> </referenceRange> </observation> </ component> <component> <observation moodCode="EVN" classCode="OBS"> <templateId root="11.30.840.1.411988.08.03.22.4.2" /> <id nullFlavor="NA" /> <code codeSystem="local" code="MCV" displayName="MCV " /> <statusCode code="completed" /> <effectiveTime value= "602998771459" /> <value unit="fL" xsi:type="PQ" value="92.0" /> <referenceRange> <observationRange> <text>82.0-99.0< /text> </observationRange> </referenceRange> </ observation> </component> <component> <observation moodCode= "EVN" classCode="OBS"> <templateId root="11.30.840.1.768335.08.03.22.4.2 " /> <id nullFlavor="NA" /> <code codeSystem="local" code="MPV " displayName="MPV" /> <statusCode code="completed" /> < effectiveTime value="" /> <value unit="fL" xsi:type="PQ" value="10.7" /> <referenceRange> <observationRange> <text>9.4-12.4</text> </observationRange> </ referenceRange> </observation> </component> <component> <observation moodCode="EVN" classCode="OBS"> <templateId root= "216.840.1.075744.08.03.22.4.2" /> <id nullFlavor="NA" /> < code codeSystem="local" code="PLT" displayName="Platelet Count" /> < statusCode code="completed" /> <effectiveTime value="" /> <value unit="K/uL" xsi:type="PQ" value="266" /> < referenceRange> <observationRange> <text>150-400</text> </observationRange> </referenceRange> </observation > </component> <component> <observation moodCode="EVN" classCode="OBS"> <templateId root="216.840.1.947496.08.03.22.4.2" /> <id nullFlavor="NA" /> <code codeSystem="local" code="RBC" displayName="RBC" /> <statusCode code="completed" /> < effectiveTime value="" /> <value unit="10*6/uL" xsi:type= "PQ" value="4.00" /> <referenceRange> <observationRange> <text>4.00-5.20</text> </observationRange> </ referenceRange> </observation> </component> <component> <observation moodCode="EVN" classCode="OBS"> <templateId root= "11.30.840.1.960917.10.20.22.4.2" /> <id nullFlavor="NA" /> < code codeSystem="local" code="RDW" displayName="RDW" /> <statusCode code="completed" /> <effectiveTime value="758882873685" /> < value unit="%" xsi:type="PQ" value="13.0" /> <referenceRange> <observationRange> <text>11.5-14.5</text> </ observationRange> </referenceRange> </observation> </ component> <component> <observation moodCode="EVN" classCode="OBS"> <templateId root="840.1.646708.08.03.22.4.2" /> <id nullFlavor="NA" /> <code codeSystem="local" code="WBCIR" displayName= "WBC" /> <statusCode code="completed" /> <effectiveTime value= "784976606005" /> <value unit="K/uL" xsi:type="PQ" value="7.3" /> <referenceRange> <observationRange> <text>4.8-10.8< /text> </observationRange> </referenceRange> </ observation> </component> </organizer> </entry> <entry> <organizer moodCode="EVN" classCode="BATTERY"> <templateId root= "11.30.840.1.863715.10.20.22.4.1" /> <id nullFlavor="NA" /> <code codeSystem="local" code="PT" displayName="Protime (INR)" /> <statusCode code="completed" /> <component> <observation moodCode="EVN" classCode="OBS"> <templateId root="11.30.840.1.100773.10..22.4.2" /> <id nullFlavor="NA" /> <code codeSystem="local" code="INR" displayName="INR" /> <statusCode code="completed" /> < effectiveTime value="923534397507" /> <value unit="NA" xsi:type="PQ" value="1.3" /> <interpretationCode codeSystem="local" code="*" /> <referenceRange> <observationRange> <text>0.9-1.2</ text> </observationRange> </referenceRange> </ observation> </component> </organizer> </entry> <entry> <organizer moodCode="EVN" classCode="BATTERY"> <templateId root= "11.30.840.1.653880.10..22.4.1" /> <id nullFlavor="NA" /> <code codeSystem="local" code="CMP" displayName="Comprehensive Metabolic Panel (CMP)" /> <statusCode code="completed" /> <component> <observation moodCode="EVN" classCode="OBS"> <templateId root= "11.30.840.1.504715.10..22.4.2" /> <id nullFlavor="NA" /> < code codeSystem="local" code="ALB" displayName="Albumin" /> < statusCode code="completed" /> <effectiveTime value="155396447178" /> <value unit="g/dL" xsi:type="PQ" value="3.3" /> < interpretationCode codeSystem="local" code="*" /> <referenceRange> <observationRange> <text>3.5-4.8</text> </ observationRange> </referenceRange> </observation> </ component> <component> <observation moodCode="EVN" classCode="OBS"> <templateId root=".1.020090.10..22.4.2" /> <id nullFlavor="NA" /> <code codeSystem="local" code="ALP" displayName= "Alkaline Phosphatase" /> <statusCode code="completed" /> < effectiveTime value="741016371152" /> <value unit="U/L" xsi:type="PQ" value="50" /> <referenceRange> <observationRange> <text>26-104</text> </observationRange> </referenceRange > </observation> </component> <component> <observation moodCode="EVN" classCode="OBS"> <templateId root= "2.16.840.1.916807.10..4.2" /> <id nullFlavor="NA" /> < code codeSystem="local" code="ALT" displayName="ALT (SGPT)" /> < statusCode code="completed" /> <effectiveTime value="149130014192" /> <value unit="U/L" xsi:type="PQ" value="18" /> <referenceRange > <observationRange> <text>14-54</text> </ observationRange> </referenceRange> </observation> </ component> <component> <observation moodCode="EVN" classCode="OBS"> <templateId root="216.840.1.946946.10..22.4.2" /> <id nullFlavor="NA" /> <code codeSystem="local" code="AGAP" displayName= "Anion Gap" /> <statusCode code="completed" /> <effectiveTime value="135733410060" /> <value unit="mEq/L" xsi:type="PQ" value="9" /> <referenceRange> <observationRange> <text>3-20 </text> </observationRange> </referenceRange> </ observation> </component> <component> <observation moodCode= "EVN" classCode="OBS"> <templateId root="216.840.1.537138.10..22.4.2 " /> <id nullFlavor="NA" /> <code codeSystem="local" code="AST " displayName="AST (SGOT)" /> <statusCode code="completed" /> <effectiveTime value="254591778046" /> <value unit="U/L" xsi:type="PQ" value="16" /> <referenceRange> <observationRange> <text>15-41</text> </observationRange> </referenceRange > </observation> </component> <component> <observation moodCode="EVN" classCode="OBS"> <templateId root= "16.840.1.040968.10...4.2" /> <id nullFlavor="NA" /> < code codeSystem="local" code="BILIT" displayName="Bilirubin Total" /> < statusCode code="completed" /> <effectiveTime value="043795829166" /> <value unit="mg/dL" xsi:type="PQ" value="0.5" /> < referenceRange> <observationRange> <text>0.2-1.2</text> </observationRange> </referenceRange> </observation > </component> <component> <observation moodCode="EVN" classCode="OBS"> <templateId root="11.30.840.1.266567.10...4.2" /> <id nullFlavor="NA" /> <code codeSystem="local" code="BUN" displayName="BUN" /> <statusCode code="completed" /> < effectiveTime value="413767794035" /> <value unit="mg/dL" xsi:type="PQ " value="8" /> <referenceRange> <observationRange> <text>4-20</text> </observationRange> </referenceRange > </observation> </component> <component> <observation moodCode="EVN" classCode="OBS"> <templateId root= "11.30.840.1.112390.10.2022.4.2" /> <id nullFlavor="NA" /> < code codeSystem="local" code="CA" displayName="Calcium" /> <statusCode code="completed" /> <effectiveTime value="710091841357" /> < value unit="mg/dL" xsi:type="PQ" value="8.3" /> <interpretationCode codeSystem="local" code="*" /> <referenceRange> < observationRange> <text>8.6-10.0</text> </ observationRange> </referenceRange> </observation> </ component> <component> <observation moodCode="EVN" classCode="OBS"> <templateId root="840.1.953620.08.03.22.4.2" /> <id nullFlavor="NA" /> <code codeSystem="local" code="CL" displayName= "Chloride" /> <statusCode code="completed" /> <effectiveTime value="059004975771" /> <value unit="mEq/L" xsi:type="PQ" value="109" / > <referenceRange> <observationRange> <text>99- 109</text> </observationRange> </referenceRange> </ observation> </component> <component> <observation moodCode= "EVN" classCode="OBS"> <templateId root="11.30.840.1.472966.10.22.4.2 " /> <id nullFlavor="NA" /> <code codeSystem="local" code="CO2 " displayName="CO2" /> <statusCode code="completed" /> < effectiveTime value="773222433586" /> <value unit="mEq/L" xsi:type="PQ " value="21" /> <interpretationCode codeSystem="local" code="*" /> <referenceRange> <observationRange> <text>22-32</ text> </observationRange> </referenceRange> </ observation> </component> <component> <observation moodCode= "EVN" classCode="OBS"> <templateId root="11.30.840.1.323011.10.4.2 " /> <id nullFlavor="NA" /> <code codeSystem="local" code= "CREAT" displayName="Creatinine" /> <statusCode code="completed" /> <effectiveTime value="727606482661" /> <value unit="mg/dL" xsi: type="PQ" value="0.68" /> <referenceRange> <observationRange > <text>0.44-1.03</text> </observationRange> </ referenceRange> </observation> </component> <component> <observation moodCode="EVN" classCode="OBS"> <templateId root= "11.30.840.1.214129.08.03.22.4.2" /> <id nullFlavor="NA" /> < code codeSystem="local" code="GLOB" displayName="Globulin" /> < statusCode code="completed" /> <effectiveTime value="766907960997" /> <value unit="g/dL" xsi:type="PQ" value="2.3" /> < referenceRange> <observationRange> <text>1.9-4.3</text> </observationRange> </referenceRange> </observation > </component> <component> <observation moodCode="EVN" classCode="OBS"> <templateId root="11.30.840.1.118221.08.03.22.4.2" /> <id nullFlavor="NA" /> <code codeSystem="local" code="GLU" displayName="Glucose" /> <statusCode code="completed" /> < effectiveTime value="665784416283" /> <value unit="mg/dL" xsi:type="PQ " value="104" /> <interpretationCode codeSystem="local" code="*" /> <referenceRange> <observationRange> <text>70-100< /text> </observationRange> </referenceRange> </ observation> </component> <component> <observation moodCode= "EVN" classCode="OBS"> <templateId root="11.30.840.1.575636.08.03.224.2 " /> <id nullFlavor="NA" /> <code codeSystem="local" code="K" displayName="Potassium" /> <statusCode code="completed" /> < effectiveTime value="132305661827" /> <value unit="mEq/L" xsi:type="PQ " value="3.4" /> <interpretationCode codeSystem="local" code="*" /> <referenceRange> <observationRange> <text>3.6-5.1 </text> </observationRange> </referenceRange> </ observation> </component> <component> <observation moodCode= "EVN" classCode="OBS"> <templateId root="11.30.840.1.833583.08.03.22.4.2 " /> <id nullFlavor="NA" /> <code codeSystem="local" code="TP " displayName="Protein" /> <statusCode code="completed" /> < effectiveTime value="103956508237" /> <value unit="g/dL" xsi:type="PQ" value="5.6" /> <interpretationCode codeSystem="local" code="*" /> <referenceRange> <observationRange> <text>6.1-7.9</ text> </observationRange> </referenceRange> </ observation> </component> <component> <observation moodCode= "EVN" classCode="OBS"> <templateId root="16.840.1.186046.10.20.22.4.2 " /> <id nullFlavor="NA" /> <code codeSystem="local" code="NA " displayName="Sodium" /> <statusCode code="completed" /> < effectiveTime value="279285946804" /> <value unit="mEq/L" xsi:type="PQ " value="139" /> <referenceRange> <observationRange> <text>136-144</text> </observationRange> </ referenceRange> </observation> </component> </organizer> </entry > <entry> <organizer moodCode="EVN" classCode="BATTERY"> <templateId root="16.840.1.235905.10..22.4.1" /> <id nullFlavor="NA" /> <code codeSystem="local" code="ACETM" displayName="Acetaminophen" /> <statusCode code="completed" /> <component> <observation moodCode="EVN" classCode="OBS"> <templateId root="16.840.1.189789.10.20.22.4.2" /> <id nullFlavor="NA" /> <code codeSystem="local" code="ACETM" displayName="Acetaminophen" /> <statusCode code="completed" /> <effectiveTime value="047543942866" /> <value unit="mcg/mL" xsi:type= "PQ" value="45" /> <interpretationCode codeSystem="local" code="*" /> <referenceRange> <observationRange> <text>10-30 </text> </observationRange> </referenceRange> </ observation> </component> </organizer> </entry> <entry> <organizer moodCode="EVN" classCode="BATTERY"> <templateId root= "840.1.443997.08.03.22.4.1" /> <id nullFlavor="NA" /> <code codeSystem="local" code="GFR" displayName="eGFR" /> <statusCode code= "completed" /> <component> <observation moodCode="EVN" classCode= "OBS"> <templateId root="840.1.172355.08.03.22.4.2" /> < id nullFlavor="NA" /> <code codeSystem="local" code="GFR" displayName= "eGFR" /> <statusCode code="completed" /> <effectiveTime value ="479260590448" /> <value unit="mL/min" xsi:type="PQ" value=">60" / > <referenceRange> <observationRange> <text>&gt ;60</text> </observationRange> </referenceRange> </ observation> </component> </organizer> </entry> <entry> <organizer moodCode="EVN" classCode="BATTERY"> <templateId root= "840.1.049200.08.03.22.4.1" /> <id nullFlavor="NA" /> <code codeSystem="local" code="CMP" displayName="Comprehensive Metabolic Panel (CMP)" /> <statusCode code="completed" /> <component> <observation moodCode="EVN" classCode="OBS"> <templateId root= "840.1.992604.08.03.22.4.2" /> <id nullFlavor="NA" /> < code codeSystem="local" code="ALB" displayName="Albumin" /> < statusCode code="completed" /> <effectiveTime value="681290053283" /> <value unit="g/dL" xsi:type="PQ" value="3.2" /> < interpretationCode codeSystem="local" code="*" /> <referenceRange> <observationRange> <text>3.5-4.8</text> </ observationRange> </referenceRange> </observation> </ component> <component> <observation moodCode="EVN" classCode="OBS"> <templateId root="16.840.1.409433.10..22.4.2" /> <id nullFlavor="NA" /> <code codeSystem="local" code="ALP" displayName= "Alkaline Phosphatase" /> <statusCode code="completed" /> < effectiveTime value="406392439828" /> <value unit="U/L" xsi:type="PQ" value="45" /> <referenceRange> <observationRange> <text>26-104</text> </observationRange> </referenceRange > </observation> </component> <component> <observation moodCode="EVN" classCode="OBS"> <templateId root= "11.30.840.1.128472.10..22.4.2" /> <id nullFlavor="NA" /> < code codeSystem="local" code="ALT" displayName="ALT (SGPT)" /> < statusCode code="completed" /> <effectiveTime value="171579869251" /> <value unit="U/L" xsi:type="PQ" value="17" /> <referenceRange > <observationRange> <text>14-54</text> </ observationRange> </referenceRange> </observation> </ component> <component> <observation moodCode="EVN" classCode="OBS"> <templateId root="11.30.840.1.004534...4.2" /> <id nullFlavor="NA" /> <code codeSystem="local" code="AGAP" displayName= "Anion Gap" /> <statusCode code="completed" /> <effectiveTime value="" /> <value unit="mEq/L" xsi:type="PQ" value="6" /> <referenceRange> <observationRange> <text>3-20 </text> </observationRange> </referenceRange> </ observation> </component> <component> <observation moodCode= "EVN" classCode="OBS"> <templateId root="2.16.840.1.968418...4.2 " /> <id nullFlavor="NA" /> <code codeSystem="local" code="AST " displayName="AST (SGOT)" /> <statusCode code="completed" /> <effectiveTime value="803983025921" /> <value unit="U/L" xsi:type="PQ" value="14" /> <interpretationCode codeSystem="local" code="*" /> <referenceRange> <observationRange> <text>15-41</ text> </observationRange> </referenceRange> </ observation> </component> <component> <observation moodCode= "EVN" classCode="OBS"> <templateId root="216.840.1.841758.08.03.22.4.2 " /> <id nullFlavor="NA" /> <code codeSystem="local" code= "BILIT" displayName="Bilirubin Total" /> <statusCode code="completed" / > <effectiveTime value="" /> <value unit="mg/dL" xsi:type="PQ" value="0.8" /> <referenceRange> < observationRange> <text>0.2-1.2</text> </ observationRange> </referenceRange> </observation> </ component> <component> <observation moodCode="EVN" classCode="OBS"> <templateId root="11.30.840.1.805956.08.03.22.4.2" /> <id nullFlavor="NA" /> <code codeSystem="local" code="BUN" displayName="BUN " /> <statusCode code="completed" /> <effectiveTime value= "" /> <value unit="mg/dL" xsi:type="PQ" value="5" /> <referenceRange> <observationRange> <text>4-20</text > </observationRange> </referenceRange> </observation > </component> <component> <observation moodCode="EVN" classCode="OBS"> <templateId root="11.30.840.1.802893.08.03.22.4.2" /> <id nullFlavor="NA" /> <code codeSystem="local" code="CA" displayName="Calcium" /> <statusCode code="completed" /> < effectiveTime value="" /> <value unit="mg/dL" xsi:type="PQ " value="8.0" /> <interpretationCode codeSystem="local" code="*" /> <referenceRange> <observationRange> <text>8.6- 10.0</text> </observationRange> </referenceRange> </ observation> </component> <component> <observation moodCode= "EVN" classCode="OBS"> <templateId root="11.30.840.1.577030.08.03.22.4.2 " /> <id nullFlavor="NA" /> <code codeSystem="local" code="CL " displayName="Chloride" /> <statusCode code="completed" /> < effectiveTime value="" /> <value unit="mEq/L" xsi:type="PQ " value="109" /> <referenceRange> <observationRange> <text>99-109</text> </observationRange> </ referenceRange> </observation> </component> <component> <observation moodCode="EVN" classCode="OBS"> <templateId root= "11.30.840.1.466965.10.20.22.4.2" /> <id nullFlavor="NA" /> < code codeSystem="local" code="CO2" displayName="CO2" /> <statusCode code="completed" /> <effectiveTime value="[id number]" /> < value unit="mEq/L" xsi:type="PQ" value="23" /> <referenceRange> <observationRange> <text>22-32</text> </ observationRange> </referenceRange> </observation> </ component> <component> <observation moodCode="EVN" classCode="OBS"> <templateId root="840.1.060002.10.20.22.4.2" /> <id nullFlavor="NA" /> <code codeSystem="local" code="CREAT" displayName= "Creatinine" /> <statusCode code="completed" /> < effectiveTime value="[id number]" /> <value unit="mg/dL" xsi:type="PQ " value="0.78" /> <referenceRange> <observationRange> <text>0.44-1.03</text> </observationRange> </ referenceRange> </observation> </component> <component> <observation moodCode="EVN" classCode="OBS"> <templateId root= "11.30.840.1.386313.10.20.22.4.2" /> <id nullFlavor="NA" /> < code codeSystem="local" code="GLOB" displayName="Globulin" /> < statusCode code="completed" /> <effectiveTime value="" /> <value unit="g/dL" xsi:type="PQ" value="2.3" /> < referenceRange> <observationRange> <text>1.9-4.3</text> </observationRange> </referenceRange> </observation > </component> <component> <observation moodCode="EVN" classCode="OBS"> <templateId root="16.840.1.436714.08.03.22.4.2" /> <id nullFlavor="NA" /> <code codeSystem="local" code="GLU" displayName="Glucose" /> <statusCode code="completed" /> < effectiveTime value="" /> <value unit="mg/dL" xsi:type="PQ " value="99" /> <referenceRange> <observationRange> <text>70-100</text> </observationRange> </ referenceRange> </observation> </component> <component> <observation moodCode="EVN" classCode="OBS"> <templateId root= "16.840.1.318179.08.03.22.4.2" /> <id nullFlavor="NA" /> < code codeSystem="local" code="K" displayName="Potassium" /> < statusCode code="completed" /> <effectiveTime value="713778928036" /> <value unit="mEq/L" xsi:type="PQ" value="3.0" /> < interpretationCode codeSystem="local" code="*" /> <referenceRange> <observationRange> <text>3.6-5.1</text> </ observationRange> </referenceRange> </observation> </ component> <component> <observation moodCode="EVN" classCode="OBS"> <templateId root="16840.1.303092.22.4.2" /> <id nullFlavor="NA" /> <code codeSystem="local" code="TP" displayName= "Protein" /> <statusCode code="completed" /> <effectiveTime value="561121678333" /> <value unit="g/dL" xsi:type="PQ" value="5.5" / > <interpretationCode codeSystem="local" code="*" /> < referenceRange> <observationRange> <text>6.1-7.9</text> </observationRange> </referenceRange> </observation > </component> <component> <observation moodCode="EVN" classCode="OBS"> <templateId root="840.1.601860.08.03.22.4.2" /> <id nullFlavor="NA" /> <code codeSystem="local" code="NA" displayName="Sodium" /> <statusCode code="completed" /> < effectiveTime value="445327185909" /> <value unit="mEq/L" xsi:type="PQ " value="138" /> <referenceRange> <observationRange> <text>136-144</text> </observationRange> </ referenceRange> </observation> </component> </organizer> </entry > <entry> <organizer moodCode="EVN" classCode="BATTERY"> <templateId root="840.1.221177.22.4.1" /> <id nullFlavor="NA" /> <code codeSystem="local" code="ACETM" displayName="Acetaminophen" /> <statusCode code="completed" /> <component> <observation moodCode="EVN" classCode="OBS"> <templateId root="840.1.175240.22.4.2" /> <id nullFlavor="NA" /> <code codeSystem="local" code="ACETM" displayName="Acetaminophen" /> <statusCode code="completed" /> <effectiveTime value="784614224919" /> <value unit="mcg/mL" xsi:type= "PQ" value="<10" /> <referenceRange> <observationRange> <text>10-30</text> </observationRange> </ referenceRange> </observation> </component> </organizer> </entry > <entry> <organizer moodCode="EVN" classCode="BATTERY"> <templateId root="216.840.1.116010.10..22.4.1" /> <id nullFlavor="NA" /> <code codeSystem="local" code="GFR" displayName="eGFR" /> <statusCode code= "completed" /> <component> <observation moodCode="EVN" classCode= "OBS"> <templateId root="16.840.1.034156.10..22.4.2" /> < id nullFlavor="NA" /> <code codeSystem="local" code="GFR" displayName= "eGFR" /> <statusCode code="completed" /> <effectiveTime value ="693956679290" /> <value unit="mL/min" xsi:type="PQ" value=">60" / > <referenceRange> <observationRange> <text>&gt ;60</text> </observationRange> </referenceRange> </ observation> </component> </organizer> </entry> <entry> <organizer moodCode="EVN" classCode="BATTERY"> <templateId root= "16.840.1.140019.10..22.4.1" /> <id nullFlavor="NA" /> <code codeSystem="local" code="CBCND" displayName="CBC With Platelet No Differential" /> <statusCode code="completed" /> <component> <observation moodCode="EVN" classCode="OBS"> <templateId root= "11.30.840.1.096347.10.22.4.2" /> <id nullFlavor="NA" /> < code codeSystem="local" code="HCT" displayName="HCT" /> <statusCode code="completed" /> <effectiveTime value="835676713457" /> < value unit="%" xsi:type="PQ" value="35.8" /> <interpretationCode codeSystem="local" code="*" /> <referenceRange> < observationRange> <text>37.0-47.0</text> </ observationRange> </referenceRange> </observation> </ component> <component> <observation moodCode="EVN" classCode="OBS"> <templateId root="840.1.432872.08.03.224.2" /> <id nullFlavor="NA" /> <code codeSystem="local" code="HGB" displayName="HGB " /> <statusCode code="completed" /> <effectiveTime value= "174149521213" /> <value unit="g/dL" xsi:type="PQ" value="11.9" /> <interpretationCode codeSystem="local" code="*" /> < referenceRange> <observationRange> <text>12.0-16.0</text > </observationRange> </referenceRange> </observation > </component> <component> <observation moodCode="EVN" classCode="OBS"> <templateId root="11.30.840.1.344147.1022.4.2" /> <id nullFlavor="NA" /> <code codeSystem="local" code="MCH" displayName="MCH" /> <statusCode code="completed" /> < effectiveTime value="657408505656" /> <value unit="pg" xsi:type="PQ" value="30.7" /> <referenceRange> <observationRange> <text>27.0-32.0</text> </observationRange> </ referenceRange> </observation> </component> <component> <observation moodCode="EVN" classCode="OBS"> <templateId root= "11.30.840.1.249622.08.03.22.4.2" /> <id nullFlavor="NA" /> < code codeSystem="local" code="MCHC" displayName="MCHC" /> <statusCode code="completed" /> <effectiveTime value="894104254258" /> < value unit="g/dL" xsi:type="PQ" value="33.2" /> <referenceRange> <observationRange> <text>32.0-36.0</text> </ observationRange> </referenceRange> </observation> </ component> <component> <observation moodCode="EVN" classCode="OBS"> <templateId root="11.30.840.1.656320.08.03.22.4.2" /> <id nullFlavor="NA" /> <code codeSystem="local" code="MCV" displayName="MCV " /> <statusCode code="completed" /> <effectiveTime value= "043635715789" /> <value unit="fL" xsi:type="PQ" value="92.5" /> <referenceRange> <observationRange> <text>82.0-99.0< /text> </observationRange> </referenceRange> </ observation> </component> <component> <observation moodCode= "EVN" classCode="OBS"> <templateId root="11.30.840.1.456316.08.03.22.4.2 " /> <id nullFlavor="NA" /> <code codeSystem="local" code="MPV " displayName="MPV" /> <statusCode code="completed" /> < effectiveTime value="754247396430" /> <value unit="fL" xsi:type="PQ" value="10.5" /> <referenceRange> <observationRange> <text>9.4-12.4</text> </observationRange> </ referenceRange> </observation> </component> <component> <observation moodCode="EVN" classCode="OBS"> <templateId root= "216.840.1.034788.08.03.22.4.2" /> <id nullFlavor="NA" /> < code codeSystem="local" code="PLT" displayName="Platelet Count" /> < statusCode code="completed" /> <effectiveTime value="" /> <value unit="K/uL" xsi:type="PQ" value="196" /> < referenceRange> <observationRange> <text>150-400</text> </observationRange> </referenceRange> </observation > </component> <component> <observation moodCode="EVN" classCode="OBS"> <templateId root="216.840.1.054329...4.2" /> <id nullFlavor="NA" /> <code codeSystem="local" code="RBC" displayName="RBC" /> <statusCode code="completed" /> < effectiveTime value="" /> <value unit="10*6/uL" xsi:type= "PQ" value="3.87" /> <interpretationCode codeSystem="local" code="*" / > <referenceRange> <observationRange> <text> 4.00-5.20</text> </observationRange> </referenceRange> </observation> </component> <component> <observation moodCode="EVN" classCode="OBS"> <templateId root= "16.840.1.783208.08.03.22.4.2" /> <id nullFlavor="NA" /> < code codeSystem="local" code="RDW" displayName="RDW" /> <statusCode code="completed" /> <effectiveTime value="870999763383" /> < value unit="%" xsi:type="PQ" value="13.1" /> <referenceRange> <observationRange> <text>11.5-14.5</text> </ observationRange> </referenceRange> </observation> </ component> <component> <observation moodCode="EVN" classCode="OBS"> <templateId root="16.840.1.330154.08.03.22.4.2" /> <id nullFlavor="NA" /> <code codeSystem="local" code="WBCIR" displayName= "WBC" /> <statusCode code="completed" /> <effectiveTime value= "581940174800" /> <value unit="K/uL" xsi:type="PQ" value="5.1" /> <referenceRange> <observationRange> <text>4.8-10.8< /text> </observationRange> </referenceRange> </ observation> </component> </organizer> </entry> <entry> <organizer moodCode="EVN" classCode="BATTERY"> <templateId root= "16.840.1.777437.22.4.1" /> <id nullFlavor="NA" /> <code codeSystem="local" code="CMP" displayName="Comprehensive Metabolic Panel (CMP)" /> <statusCode code="completed" /> <component> <observation moodCode="EVN" classCode="OBS"> <templateId root= "216.840.1.516766.10..22.4.2" /> <id nullFlavor="NA" /> < code codeSystem="local" code="ALB" displayName="Albumin" /> < statusCode code="completed" /> <effectiveTime value="" /> <value unit="g/dL" xsi:type="PQ" value="3.2" /> < interpretationCode codeSystem="local" code="*" /> <referenceRange> <observationRange> <text>3.5-4.8</text> </ observationRange> </referenceRange> </observation> </ component> <component> <observation moodCode="EVN" classCode="OBS"> <templateId root="16.840.1.445752.10..4.2" /> <id nullFlavor="NA" /> <code codeSystem="local" code="ALP" displayName= "Alkaline Phosphatase" /> <statusCode code="completed" /> < effectiveTime value="" /> <value unit="U/L" xsi:type="PQ" value="45" /> <referenceRange> <observationRange> <text>26-104</text> </observationRange> </referenceRange > </observation> </component> <component> <observation moodCode="EVN" classCode="OBS"> <templateId root= "16.840.1.081959.10.20.22.4.2" /> <id nullFlavor="NA" /> < code codeSystem="local" code="ALT" displayName="ALT (SGPT)" /> < statusCode code="completed" /> <effectiveTime value="" /> <value unit="U/L" xsi:type="PQ" value="18" /> <referenceRange > <observationRange> <text>14-54</text> </ observationRange> </referenceRange> </observation> </ component> <component> <observation moodCode="EVN" classCode="OBS"> <templateId root="216.840.1.260176.10...4.2" /> <id nullFlavor="NA" /> <code codeSystem="local" code="AGAP" displayName= "Anion Gap" /> <statusCode code="completed" /> <effectiveTime value="" /> <value unit="mEq/L" xsi:type="PQ" value="6" /> <referenceRange> <observationRange> <text>3-20 </text> </observationRange> </referenceRange> </ observation> </component> <component> <observation moodCode= "EVN" classCode="OBS"> <templateId root="11.30.840.1.429880.08.03.22.4.2 " /> <id nullFlavor="NA" /> <code codeSystem="local" code="AST " displayName="AST (SGOT)" /> <statusCode code="completed" /> <effectiveTime value="" /> <value unit="U/L" xsi:type="PQ" value="15" /> <referenceRange> <observationRange> <text>15-41</text> </observationRange> </referenceRange > </observation> </component> <component> <observation moodCode="EVN" classCode="OBS"> <templateId root= "216.840.1.652289....4.2" /> <id nullFlavor="NA" /> < code codeSystem="local" code="BILIT" displayName="Bilirubin Total" /> < statusCode code="completed" /> <effectiveTime value="" /> <value unit="mg/dL" xsi:type="PQ" value="0.9" /> < referenceRange> <observationRange> <text>0.2-1.2</text> </observationRange> </referenceRange> </observation > </component> <component> <observation moodCode="EVN" classCode="OBS"> <templateId root="16.840.1.214056.10..22.4.2" /> <id nullFlavor="NA" /> <code codeSystem="local" code="BUN" displayName="BUN" /> <statusCode code="completed" /> < effectiveTime value="408126574005" /> <value unit="mg/dL" xsi:type="PQ " value="6" /> <referenceRange> <observationRange> <text>4-20</text> </observationRange> </referenceRange > </observation> </component> <component> <observation moodCode="EVN" classCode="OBS"> <templateId root= "11.30.840.1.685064.10...4.2" /> <id nullFlavor="NA" /> < code codeSystem="local" code="CA" displayName="Calcium" /> <statusCode code="completed" /> <effectiveTime value="059126069501" /> < value unit="mg/dL" xsi:type="PQ" value="8.2" /> <interpretationCode codeSystem="local" code="*" /> <referenceRange> < observationRange> <text>8.6-10.0</text> </ observationRange> </referenceRange> </observation> </ component> <component> <observation moodCode="EVN" classCode="OBS"> <templateId root="11.30.840.1.073881.10..22.4.2" /> <id nullFlavor="NA" /> <code codeSystem="local" code="CL" displayName= "Chloride" /> <statusCode code="completed" /> <effectiveTime value="" /> <value unit="mEq/L" xsi:type="PQ" value="111" / > <interpretationCode codeSystem="local" code="*" /> < referenceRange> <observationRange> <text>99-109</text> </observationRange> </referenceRange> </observation> </component> <component> <observation moodCode="EVN" classCode ="OBS"> <templateId root="2.16.840.1.650219.10..22.4.2" /> < id nullFlavor="NA" /> <code codeSystem="local" code="CO2" displayName= "CO2" /> <statusCode code="completed" /> <effectiveTime value= "" /> <value unit="mEq/L" xsi:type="PQ" value="22" /> <referenceRange> <observationRange> <text>22-32</ text> </observationRange> </referenceRange> </ observation> </component> <component> <observation moodCode= "EVN" classCode="OBS"> <templateId root="2.16.840.1.678877.10..22.4.2 " /> <id nullFlavor="NA" /> <code codeSystem="local" code= "CREAT" displayName="Creatinine" /> <statusCode code="completed" /> <effectiveTime value="340924042058" /> <value unit="mg/dL" xsi: type="PQ" value="0.63" /> <referenceRange> <observationRange > <text>0.44-1.03</text> </observationRange> </ referenceRange> </observation> </component> <component> <observation moodCode="EVN" classCode="OBS"> <templateId root= "11.30.840.1.154105.10.22.4.2" /> <id nullFlavor="NA" /> < code codeSystem="local" code="GLOB" displayName="Globulin" /> < statusCode code="completed" /> <effectiveTime value="" /> <value unit="g/dL" xsi:type="PQ" value="2.3" /> < referenceRange> <observationRange> <text>1.9-4.3</text> </observationRange> </referenceRange> </observation > </component> <component> <observation moodCode="EVN" classCode="OBS"> <templateId root="11.30.840.1.375507.1022.4.2" /> <id nullFlavor="NA" /> <code codeSystem="local" code="GLU" displayName="Glucose" /> <statusCode code="completed" /> < effectiveTime value="" /> <value unit="mg/dL" xsi:type="PQ " value="79" /> <referenceRange> <observationRange> <text>70-100</text> </observationRange> </ referenceRange> </observation> </component> <component> <observation moodCode="EVN" classCode="OBS"> <templateId root= "11.30.840.1.349635.10.22.4.2" /> <id nullFlavor="NA" /> < code codeSystem="local" code="K" displayName="Potassium" /> < statusCode code="completed" /> <effectiveTime value="452699210471" /> <value unit="mEq/L" xsi:type="PQ" value="3.0" /> < interpretationCode codeSystem="local" code="*" /> <referenceRange> <observationRange> <text>3.6-5.1</text> </ observationRange> </referenceRange> </observation> </ component> <component> <observation moodCode="EVN" classCode="OBS"> <templateId root="11.30.840.1.587417.10..22.4.2" /> <id nullFlavor="NA" /> <code codeSystem="local" code="TP" displayName= "Protein" /> <statusCode code="completed" /> <effectiveTime value="428219202865" /> <value unit="g/dL" xsi:type="PQ" value="5.5" / > <interpretationCode codeSystem="local" code="*" /> < referenceRange> <observationRange> <text>6.1-7.9</text> </observationRange> </referenceRange> </observation > </component> <component> <observation moodCode="EVN" classCode="OBS"> <templateId root="840.1.328498.10..4.2" /> <id nullFlavor="NA" /> <code codeSystem="local" code="NA" displayName="Sodium" /> <statusCode code="completed" /> < effectiveTime value="185906996934" /> <value unit="mEq/L" xsi:type="PQ " value="139" /> <referenceRange> <observationRange> <text>136-144</text> </observationRange> </ referenceRange> </observation> </component> </organizer> </entry > <entry> <organizer moodCode="EVN" classCode="BATTERY"> <templateId root="11.30.840.1.663590.10..22.4.1" /> <id nullFlavor="NA" /> <code codeSystem="local" code="GFR" displayName="eGFR" /> <statusCode code= "completed" /> <component> <observation moodCode="EVN" classCode= "OBS"> <templateId root="2.16.840.1.188768.10..22.4.2" /> < id nullFlavor="NA" /> <code codeSystem="local" code="GFR" displayName= "eGFR" /> <statusCode code="completed" /> <effectiveTime value ="791233856331" /> <value unit="mL/min" xsi:type="PQ" value=">60" / > <referenceRange> <observationRange> <text>&gt ;60</text> </observationRange> </referenceRange> </ observation> </component> </organizer> </entry> <entry> <organizer moodCode="EVN" classCode="BATTERY"> <templateId root= "2.16.840.1.369834.10..22.4.1" /> <id nullFlavor="NA" /> <code codeSystem="local" code="CBCND" displayName="CBC With Platelet No Differential" /> <statusCode code="completed" /> <component> <observation moodCode="EVN" classCode="OBS"> <templateId root= "2.16.840.1.254764.10..22.4.2" /> <id nullFlavor="NA" /> < code codeSystem="local" code="HCT" displayName="HCT" /> <statusCode code="completed" /> <effectiveTime value="255596130419" /> < value unit="%" xsi:type="PQ" value="36.3" /> <interpretationCode codeSystem="local" code="*" /> <referenceRange> < observationRange> <text>37.0-47.0</text> </ observationRange> </referenceRange> </observation> </ component> <component> <observation moodCode="EVN" classCode="OBS"> <templateId root="2.16.840.1.284031.10..22.4.2" /> <id nullFlavor="NA" /> <code codeSystem="local" code="HGB" displayName="HGB " /> <statusCode code="completed" /> <effectiveTime value= "" /> <value unit="g/dL" xsi:type="PQ" value="11.8" /> <interpretationCode codeSystem="local" code="*" /> < referenceRange> <observationRange> <text>12.0-16.0</text > </observationRange> </referenceRange> </observation > </component> <component> <observation moodCode="EVN" classCode="OBS"> <templateId root="216.840.1.800458.08.03.22.4.2" /> <id nullFlavor="NA" /> <code codeSystem="local" code="MCH" displayName="MCH" /> <statusCode code="completed" /> < effectiveTime value="" /> <value unit="pg" xsi:type="PQ" value="30.8" /> <referenceRange> <observationRange> <text>27.0-32.0</text> </observationRange> </ referenceRange> </observation> </component> <component> <observation moodCode="EVN" classCode="OBS"> <templateId root= "216.840.1.254945.10.20.22.4.2" /> <id nullFlavor="NA" /> < code codeSystem="local" code="MCHC" displayName="MCHC" /> <statusCode code="completed" /> <effectiveTime value="" /> < value unit="g/dL" xsi:type="PQ" value="32.5" /> <referenceRange> <observationRange> <text>32.0-36.0</text> </ observationRange> </referenceRange> </observation> </ component> <component> <observation moodCode="EVN" classCode="OBS"> <templateId root="11.30.840.1.253771.10.20.22.4.2" /> <id nullFlavor="NA" /> <code codeSystem="local" code="MCV" displayName="MCV " /> <statusCode code="completed" /> <effectiveTime value= "" /> <value unit="fL" xsi:type="PQ" value="94.8" /> <referenceRange> <observationRange> <text>82.0-99.0< /text> </observationRange> </referenceRange> </ observation> </component> <component> <observation moodCode= "EVN" classCode="OBS"> <templateId root="840.1.243743.1022.4.2 " /> <id nullFlavor="NA" /> <code codeSystem="local" code="MPV " displayName="MPV" /> <statusCode code="completed" /> < effectiveTime value="408445854131" /> <value unit="fL" xsi:type="PQ" value="10.5" /> <referenceRange> <observationRange> <text>9.4-12.4</text> </observationRange> </ referenceRange> </observation> </component> <component> <observation moodCode="EVN" classCode="OBS"> <templateId root= "11.30.840.1.302417.10.20.22.4.2" /> <id nullFlavor="NA" /> < code codeSystem="local" code="PLT" displayName="Platelet Count" /> < statusCode code="completed" /> <effectiveTime value="716545799921" /> <value unit="K/uL" xsi:type="PQ" value="184" /> < referenceRange> <observationRange> <text>150-400</text> </observationRange> </referenceRange> </observation > </component> <component> <observation moodCode="EVN" classCode="OBS"> <templateId root="11.30.840.1.378792.10.2022.4.2" /> <id nullFlavor="NA" /> <code codeSystem="local" code="RBC" displayName="RBC" /> <statusCode code="completed" /> < effectiveTime value="931657444066" /> <value unit="10*6/uL" xsi:type= "PQ" value="3.83" /> <interpretationCode codeSystem="local" code="*" / > <referenceRange> <observationRange> <text> 4.00-5.20</text> </observationRange> </referenceRange> </observation> </component> <component> <observation moodCode="EVN" classCode="OBS"> <templateId root= "11.30.840.1.344407.10.20.22.4.2" /> <id nullFlavor="NA" /> < code codeSystem="local" code="RDW" displayName="RDW" /> <statusCode code="completed" /> <effectiveTime value="214209855757" /> < value unit="%" xsi:type="PQ" value="13.3" /> <referenceRange> <observationRange> <text>11.5-14.5</text> </ observationRange> </referenceRange> </observation> </ component> <component> <observation moodCode="EVN" classCode="OBS"> <templateId root="840.1.347758.10..22.4.2" /> <id nullFlavor="NA" /> <code codeSystem="local" code="WBCIR" displayName= "WBC" /> <statusCode code="completed" /> <effectiveTime value= "817129848400" /> <value unit="K/uL" xsi:type="PQ" value="5.0" /> <referenceRange> <observationRange> <text>4.8-10.8< /text> </observationRange> </referenceRange> </ observation> </component> </organizer> </entry> <entry> <organizer moodCode="EVN" classCode="BATTERY"> <templateId root= "16.840.1.802084.10..22.4.1" /> <id nullFlavor="NA" /> <code codeSystem="local" code="CMP" displayName="Comprehensive Metabolic Panel (CMP)" /> <statusCode code="completed" /> <component> <observation moodCode="EVN" classCode="OBS"> <templateId root= "216.840.1.214128.10..22.4.2" /> <id nullFlavor="NA" /> < code codeSystem="local" code="ALB" displayName="Albumin" /> < statusCode code="completed" /> <effectiveTime value="428162397439" /> <value unit="g/dL" xsi:type="PQ" value="3.4" /> < interpretationCode codeSystem="local" code="*" /> <referenceRange> <observationRange> <text>3.5-4.8</text> </ observationRange> </referenceRange> </observation> </ component> <component> <observation moodCode="EVN" classCode="OBS"> <templateId root="16.840.1.136168.08.03.22.4.2" /> <id nullFlavor="NA" /> <code codeSystem="local" code="ALP" displayName= "Alkaline Phosphatase" /> <statusCode code="completed" /> < effectiveTime value="" /> <value unit="U/L" xsi:type="PQ" value="47" /> <referenceRange> <observationRange> <text>26-104</text> </observationRange> </referenceRange > </observation> </component> <component> <observation moodCode="EVN" classCode="OBS"> <templateId root= "2.16.840.1.266738.10..22.4.2" /> <id nullFlavor="NA" /> < code codeSystem="local" code="ALT" displayName="ALT (SGPT)" /> < statusCode code="completed" /> <effectiveTime value="" /> <value unit="U/L" xsi:type="PQ" value="24" /> <referenceRange > <observationRange> <text>14-54</text> </ observationRange> </referenceRange> </observation> </ component> <component> <observation moodCode="EVN" classCode="OBS"> <templateId root="2.16.840.1.853180.10..22.4.2" /> <id nullFlavor="NA" /> <code codeSystem="local" code="AGAP" displayName= "Anion Gap" /> <statusCode code="completed" /> <effectiveTime value="" /> <value unit="mEq/L" xsi:type="PQ" value="6" /> <referenceRange> <observationRange> <text>3-20 </text> </observationRange> </referenceRange> </ observation> </component> <component> <observation moodCode= "EVN" classCode="OBS"> <templateId root="16.840.1.644724.10.20.22.4.2 " /> <id nullFlavor="NA" /> <code codeSystem="local" code="AST " displayName="AST (SGOT)" /> <statusCode code="completed" /> <effectiveTime value="" /> <value unit="U/L" xsi:type="PQ" value="24" /> <referenceRange> <observationRange> <text>15-41</text> </observationRange> </referenceRange > </observation> </component> <component> <observation moodCode="EVN" classCode="OBS"> <templateId root= "16.840.1.937727.10..22.4.2" /> <id nullFlavor="NA" /> < code codeSystem="local" code="BILIT" displayName="Bilirubin Total" /> < statusCode code="completed" /> <effectiveTime value="" /> <value unit="mg/dL" xsi:type="PQ" value="0.6" /> < referenceRange> <observationRange> <text>0.2-1.2</text> </observationRange> </referenceRange> </observation > </component> <component> <observation moodCode="EVN" classCode="OBS"> <templateId root="11.30.840.1.436074.10.20.22.4.2" /> <id nullFlavor="NA" /> <code codeSystem="local" code="BUN" displayName="BUN" /> <statusCode code="completed" /> < effectiveTime value="" /> <value unit="mg/dL" xsi:type="PQ " value="8" /> <referenceRange> <observationRange> <text>4-20</text> </observationRange> </referenceRange > </observation> </component> <component> <observation moodCode="EVN" classCode="OBS"> <templateId root= "11.30.840.1.552434.102022.4.2" /> <id nullFlavor="NA" /> < code codeSystem="local" code="CA" displayName="Calcium" /> <statusCode code="completed" /> <effectiveTime value="" /> < value unit="mg/dL" xsi:type="PQ" value="8.3" /> <interpretationCode codeSystem="local" code="*" /> <referenceRange> < observationRange> <text>8.6-10.0</text> </ observationRange> </referenceRange> </observation> </ component> <component> <observation moodCode="EVN" classCode="OBS"> <templateId root="11.30.840.1.738996.08.03.22.4.2" /> <id nullFlavor="NA" /> <code codeSystem="local" code="CL" displayName= "Chloride" /> <statusCode code="completed" /> <effectiveTime value="" /> <value unit="mEq/L" xsi:type="PQ" value="111" / > <interpretationCode codeSystem="local" code="*" /> < referenceRange> <observationRange> <text>99-109</text> </observationRange> </referenceRange> </observation> </component> <component> <observation moodCode="EVN" classCode ="OBS"> <templateId root="11.30.840.1.274184..22.4.2" /> < id nullFlavor="NA" /> <code codeSystem="local" code="CO2" displayName= "CO2" /> <statusCode code="completed" /> <effectiveTime value= "" /> <value unit="mEq/L" xsi:type="PQ" value="22" /> <referenceRange> <observationRange> <text>22-32</ text> </observationRange> </referenceRange> </ observation> </component> <component> <observation moodCode= "EVN" classCode="OBS"> <templateId root="216.840.1.135761.08.03.22.4.2 " /> <id nullFlavor="NA" /> <code codeSystem="local" code= "CREAT" displayName="Creatinine" /> <statusCode code="completed" /> <effectiveTime value="" /> <value unit="mg/dL" xsi: type="PQ" value="0.54" /> <referenceRange> <observationRange > <text>0.44-1.03</text> </observationRange> </ referenceRange> </observation> </component> <component> <observation moodCode="EVN" classCode="OBS"> <templateId root= "11.30.840.1.197860.08.03.22.4.2" /> <id nullFlavor="NA" /> < code codeSystem="local" code="GLOB" displayName="Globulin" /> < statusCode code="completed" /> <effectiveTime value="" /> <value unit="g/dL" xsi:type="PQ" value="2.1" /> < referenceRange> <observationRange> <text>1.9-4.3</text> </observationRange> </referenceRange> </observation > </component> <component> <observation moodCode="EVN" classCode="OBS"> <templateId root="16.840.1.048175.08.03.22.4.2" /> <id nullFlavor="NA" /> <code codeSystem="local" code="GLU" displayName="Glucose" /> <statusCode code="completed" /> < effectiveTime value="" /> <value unit="mg/dL" xsi:type="PQ " value="83" /> <referenceRange> <observationRange> <text>70-100</text> </observationRange> </ referenceRange> </observation> </component> <component> <observation moodCode="EVN" classCode="OBS"> <templateId root= "216.840.1.710664.10..22.4.2" /> <id nullFlavor="NA" /> < code codeSystem="local" code="K" displayName="Potassium" /> < statusCode code="completed" /> <effectiveTime value="" /> <value unit="mEq/L" xsi:type="PQ" value="3.9" /> < referenceRange> <observationRange> <text>3.6-5.1</text> </observationRange> </referenceRange> </observation > </component> <component> <observation moodCode="EVN" classCode="OBS"> <templateId root="216.840.1.671755.10..22.4.2" /> <id nullFlavor="NA" /> <code codeSystem="local" code="TP" displayName="Protein" /> <statusCode code="completed" /> < effectiveTime value="" /> <value unit="g/dL" xsi:type="PQ" value="5.5" /> <interpretationCode codeSystem="local" code="*" /> <referenceRange> <observationRange> <text>6.1-7.9</ text> </observationRange> </referenceRange> </ observation> </component> <component> <observation moodCode= "EVN" classCode="OBS"> <templateId root="216.840.1.732003.10...4.2 " /> <id nullFlavor="NA" /> <code codeSystem="local" code="NA " displayName="Sodium" /> <statusCode code="completed" /> < effectiveTime value="[id number]" /> <value unit="mEq/L" xsi:type="PQ " value="139" /> <referenceRange> <observationRange> <text>136-144</text> </observationRange> </ referenceRange> </observation> </component> </organizer> </entry > <entry> <organizer moodCode="EVN" classCode="BATTERY"> <templateId root="216.840.1.064285.10..22.4.1" /> <id nullFlavor="NA" /> <code codeSystem="local" code="GFR" displayName="eGFR" /> <statusCode code= "completed" /> <component> <observation moodCode="EVN" classCode= "OBS"> <templateId root="2.16.840.1.975362.10..22.4.2" /> < id nullFlavor="NA" /> <code codeSystem="local" code="GFR" displayName= "eGFR" /> <statusCode code="completed" /> <effectiveTime value ="[id number]" /> <value unit="mL/min" xsi:type="PQ" value=">60" / > <referenceRange> <observationRange> <text>&gt ;60</text> </observationRange> </referenceRange> </ observation> </component> </organizer> </entry> <entry> <organizer moodCode="EVN" classCode="BATTERY"> <templateId root= "216.840.1.764405.08.03.22.4.1" /> <id nullFlavor="NA" /> <code codeSystem="local" code="TSHR" displayName="TSH with Reflex Free T4" /> < statusCode code="completed" /> <component> <observation moodCode= "EVN" classCode="OBS"> <templateId root="16.840.1.058669.08.03.22.4.2 " /> <id nullFlavor="NA" /> <code codeSystem="local" code= "TSHR" displayName="TSH with Reflex Free T4" /> <statusCode code= "completed" /> <effectiveTime value="907461238571" /> <value unit="uIU/mL" xsi:type="PQ" value="1.17" /> <referenceRange> <observationRange> <text>0.35-4.94</text> </ observationRange> </referenceRange> </observation> </ component> </organizer> </entry> <entry> <organizer moodCode="EVN" classCode="BATTERY"> <templateId root="11.30.840.1.581833.08.03.22.4.1" /> <id nullFlavor="NA" /> <code codeSystem="local" code="UA" displayName= "Urinalysis with reflex microscopic" /> <statusCode code="completed" /> <component> <observation moodCode="EVN" classCode="OBS"> < templateId root="11.30.840.1.018505.10.4.2" /> <id nullFlavor="NA " /> <code codeSystem="local" code="UAPP" displayName="Appearance" /> <statusCode code="completed" /> <effectiveTime value= "505704522537" /> <value unit="NA" xsi:type="PQ" value="Sl Cloudy" /> <referenceRange> <observationRange> <text /> </observationRange> </referenceRange> </observation> </component> <component> <observation moodCode="EVN" classCode= "OBS"> <templateId root="16.840.1.039252.10.4.2" /> < id nullFlavor="NA" /> <code codeSystem="local" code="UBIL" displayName= "Bilirubin" /> <statusCode code="completed" /> <effectiveTime value="" /> <value unit="NA" xsi:type="PQ" value="Negative " /> <referenceRange> <observationRange> <text> Negative</text> </observationRange> </referenceRange> </observation> </component> <component> <observation moodCode ="EVN" classCode="OBS"> <templateId root= "11.30.840.1.340324.08.03.224.2" /> <id nullFlavor="NA" /> < code codeSystem="local" code="UBLD" displayName="Blood" /> <statusCode code="completed" /> <effectiveTime value="" /> < value unit="NA" xsi:type="PQ" value="Pos 3+" /> <interpretationCode codeSystem="local" code="*" /> <referenceRange> < observationRange> <text>Negative</text> </ observationRange> </referenceRange> </observation> </ component> <component> <observation moodCode="EVN" classCode="OBS"> <templateId root="11.30.840.1.901923.08.03.22.4.2" /> <id nullFlavor="NA" /> <code codeSystem="local" code="UCOLR" displayName= "Color" /> <statusCode code="completed" /> <effectiveTime value="" /> <value unit="NA" xsi:type="PQ" value="Aliza" / > <interpretationCode codeSystem="local" code="*" /> < referenceRange> <observationRange> <text /> < /observationRange> </referenceRange> </observation> </ component> <component> <observation moodCode="EVN" classCode="OBS"> <templateId root="11.30.840.1.948484.08.03.22.4.2" /> <id nullFlavor="NA" /> <code codeSystem="local" code="UGLU" displayName= "Glucose, Urine" /> <statusCode code="completed" /> < effectiveTime value="" /> <value unit="" xsi:type="PQ" value="Negative" /> <referenceRange> <observationRange> <text>Negative</text> </observationRange> </ referenceRange> </observation> </component> <component> <observation moodCode="EVN" classCode="OBS"> <templateId root= "840.1.481048.08.03.224.2" /> <id nullFlavor="NA" /> < code codeSystem="local" code="UKET" displayName="Ketones" /> < statusCode code="completed" /> <effectiveTime value="" /> <value unit="" xsi:type="PQ" value="Negative" /> < referenceRange> <observationRange> <text>Negative</text > </observationRange> </referenceRange> </observation > </component> <component> <observation moodCode="EVN" classCode="OBS"> <templateId root="11.30.840.1.079638.22.4.2" /> <id nullFlavor="NA" /> <code codeSystem="local" code="ULEU" displayName="Leukocyte Esterase" /> <statusCode code="completed" /> <effectiveTime value="" /> <value unit="NA" xsi:type ="PQ" value="Negative" /> <referenceRange> <observationRange > <text>Negative</text> </observationRange> </ referenceRange> </observation> </component> <component> <observation moodCode="EVN" classCode="OBS"> <templateId root= "16.840.1.280829.08.03.22.4.2" /> <id nullFlavor="NA" /> < code codeSystem="local" code="UNIT" displayName="Nitrites" /> < statusCode code="completed" /> <effectiveTime value="" /> <value unit="NA" xsi:type="PQ" value="Negative" /> < referenceRange> <observationRange> <text>Negative</text > </observationRange> </referenceRange> </observation > </component> <component> <observation moodCode="EVN" classCode="OBS"> <templateId root="11.30.840.1.667951.08.03.22.4.2" /> <id nullFlavor="NA" /> <code codeSystem="local" code="UPH" displayName="pH" /> <statusCode code="completed" /> < effectiveTime value="" /> <value unit="NA" xsi:type="PQ" value="5.0" /> <referenceRange> <observationRange> <text>5.0-8.0</text> </observationRange> </ referenceRange> </observation> </component> <component> <observation moodCode="EVN" classCode="OBS"> <templateId root= "16.840.1.127144.08.03.22.4.2" /> <id nullFlavor="NA" /> < code codeSystem="local" code="UPRO" displayName="Protein" /> < statusCode code="completed" /> <effectiveTime value="585124098731" /> <value unit="NA" xsi:type="PQ" value="Negative" /> < referenceRange> <observationRange> <text>Negative</text > </observationRange> </referenceRange> </observation > </component> <component> <observation moodCode="EVN" classCode="OBS"> <templateId root="16.840.1.618345.10...4.2" /> <id nullFlavor="NA" /> <code codeSystem="local" code="USPG" displayName="Specific Merrill" /> <statusCode code="completed" /> <effectiveTime value="338096793400" /> <value unit="NA" xsi:type= "PQ" value="1.025" /> <referenceRange> <observationRange> <text>1.003-1.030</text> </observationRange> </ referenceRange> </observation> </component> <component> <observation moodCode="EVN" classCode="OBS"> <templateId root= "16.840.1.650918.10...4.2" /> <id nullFlavor="NA" /> < code codeSystem="local" code="UTYP" displayName="UA Collection type" /> <statusCode code="completed" /> <effectiveTime value="029593880823" / > <value unit="NA" xsi:type="PQ" value="Clean Catch" /> < referenceRange> <observationRange> <text /> < /observationRange> </referenceRange> </observation> </ component> <component> <observation moodCode="EVN" classCode="OBS"> <templateId root="11.30.840.1.027940.08.03.22.4.2" /> <id nullFlavor="NA" /> <code codeSystem="local" code="UURO" displayName= "Urobilinogen" /> <statusCode code="completed" /> < effectiveTime value="783590185501" /> <value unit="mg/dL" xsi:type="PQ " value="2.0" /> <interpretationCode codeSystem="local" code="*" /> <referenceRange> <observationRange> <text><1.0 </text> </observationRange> </referenceRange> </ observation> </component> </organizer> </entry> <entry> <organizer moodCode="EVN" classCode="BATTERY"> <templateId root= "11.30.840.1.552332.08.03.22.4.1" /> <id nullFlavor="NA" /> <code codeSystem="local" code="UMIC" displayName="Urine Microscopic" /> < statusCode code="completed" /> <component> <observation moodCode= "EVN" classCode="OBS"> <templateId root="11.30.840.1.716606.08.03.22.4.2 " /> <id nullFlavor="NA" /> <code codeSystem="local" code= "UBAC" displayName="Bacteria" /> <statusCode code="completed" /> <effectiveTime value="425830166640" /> <value unit="NA" xsi:type= "PQ" value="Rare" /> <referenceRange> <observationRange> <text /> </observationRange> </referenceRange> </observation> </component> <component> <observation moodCode="EVN" classCode="OBS"> <templateId root= "11.30.840.1.688665.08.03.22.4.2" /> <id nullFlavor="NA" /> < code codeSystem="local" code="UCRY1" displayName="Crystals" /> < statusCode code="completed" /> <effectiveTime value="" /> <value unit="NA" xsi:type="PQ" value="Ca Ox" /> < referenceRange> <observationRange> <text /> < /observationRange> </referenceRange> </observation> </ component> <component> <observation moodCode="EVN" classCode="OBS"> <templateId root="11.30.840.1.856243.22.4.2" /> <id nullFlavor="NA" /> <code codeSystem="local" code="UEPI" displayName= "Epithelial Cells" /> <statusCode code="completed" /> < effectiveTime value="" /> <value unit="/HPF" xsi:type="PQ" value="0" /> <referenceRange> <observationRange> <text /> </observationRange> </referenceRange> </ observation> </component> <component> <observation moodCode= "EVN" classCode="OBS"> <templateId root="840.1.398190.22.4.2 " /> <id nullFlavor="NA" /> <code codeSystem="local" code= "URBC" displayName="RBC, Urine" /> <statusCode code="completed" /> <effectiveTime value="" /> <value unit="/HPF" xsi: type="PQ" value="0" /> <referenceRange> <observationRange> <text>0-2</text> </observationRange> </ referenceRange> </observation> </component> <component> <observation moodCode="EVN" classCode="OBS"> <templateId root= "11.30.840.1.629562.10.20.22.4.2" /> <id nullFlavor="NA" /> < code codeSystem="local" code="UMUC" displayName="Urine Mucus" /> < statusCode code="completed" /> <effectiveTime value="653169381985" /> <value unit="NA" xsi:type="PQ" value="Present" /> < referenceRange> <observationRange> <text /> < /observationRange> </referenceRange> </observation> </ component> <component> <observation moodCode="EVN" classCode="OBS"> <templateId root="16.840.1.825805.08.03.224.2" /> <id nullFlavor="NA" /> <code codeSystem="local" code="UWBC" displayName= "WBC, Urine" /> <statusCode code="completed" /> < effectiveTime value="" /> <value unit="/HPF" xsi:type="PQ" value="2" /> <referenceRange> <observationRange> <text>0-4</text> </observationRange> </referenceRange> </observation> </component> </organizer> </entry> <entry> < organizer moodCode="EVN" classCode="BATTERY"> <templateId root= "16.840.1.029361.08.03.22.4.1" /> <id nullFlavor="NA" /> <code codeSystem="local" code="UDRGH" displayName="Urine Drug Screen" /> < statusCode code="completed" /> <component> <observation moodCode= "EVN" classCode="OBS"> <templateId root="16.840.1.801333.08.03.22.4.2 " /> <id nullFlavor="NA" /> <code codeSystem="local" code= "UTCA1" displayName="Tricyclics" /> <statusCode code="completed" /> <effectiveTime value="288660680931" /> <value unit="NA" xsi:type ="PQ" value="Negative" /> <referenceRange> <observationRange > <text /> </observationRange> </referenceRange > </observation> </component> </organizer> </entry> <entry> <organizer moodCode="EVN" classCode="BATTERY"> <templateId root= "16.840.1.987408.10...4.1" /> <id nullFlavor="NA" /> <code codeSystem="local" code="PREGN" displayName=" Screen, Urine NPT" /> <statusCode code="completed" /> <component> <observation moodCode ="EVN" classCode="OBS"> <templateId root= "216.840.1.678260.10...4.2" /> <id nullFlavor="NA" /> < code codeSystem="local" code="PREGN" displayName=" Screen, Urine NPT" / > <statusCode code="completed" /> <effectiveTime value= "462548414546" /> <value unit="NA" xsi:type="PQ" value="Negative" /> <referenceRange> <observationRange> <text /> </observationRange> </referenceRange> </observation> </component> </organizer> </entry> <entry> <organizer moodCode="EVN " classCode="BATTERY"> <templateId root="16.840.1.146349.10..22.4.1" / > <id nullFlavor="NA" /> <code codeSystem="local" code="CBCWD" displayName="CBC With Platelet and Differential" /> <statusCode code= "completed" /> <component> <observation moodCode="EVN" classCode= "OBS"> <templateId root="11.30.840.1.393496.08.03.22.4.2" /> < id nullFlavor="NA" /> <code codeSystem="local" code="ABASR" displayName ="Absolute Basophils" /> <statusCode code="completed" /> < effectiveTime value="" /> <value unit="10*3/uL" xsi:type= "PQ" value="0.04" /> <referenceRange> <observationRange> <text>0.00-0.20</text> </observationRange> </ referenceRange> </observation> </component> <component> <observation moodCode="EVN" classCode="OBS"> <templateId root= "11.30.840.1.070346.08.03.22.4.2" /> <id nullFlavor="NA" /> < code codeSystem="local" code="AEOSR" displayName="Absolute Eosinophils" /> <statusCode code="completed" /> <effectiveTime value=" " /> <value unit="10*3/uL" xsi:type="PQ" value="0.32" /> < referenceRange> <observationRange> <text>0.00-0.50</text > </observationRange> </referenceRange> </observation > </component> <component> <observation moodCode="EVN" classCode="OBS"> <templateId root="11.30.840.1.799442.08.03.22.4.2" /> <id nullFlavor="NA" /> <code codeSystem="local" code="ALYMR" displayName="Absolute Lymphocytes" /> <statusCode code="completed" /> <effectiveTime value="" /> <value unit="10*3/uL" xsi:type="PQ" value="1.20" /> <referenceRange> < observationRange> <text>0.80-3.30</text> </ observationRange> </referenceRange> </observation> </ component> <component> <observation moodCode="EVN" classCode="OBS"> <templateId root="216.840.1.985773.1022.4.2" /> <id nullFlavor="NA" /> <code codeSystem="local" code="AMONR" displayName= "Absolute Monocytes" /> <statusCode code="completed" /> < effectiveTime value="415752642880" /> <value unit="10*3/uL" xsi:type= "PQ" value="0.36" /> <referenceRange> <observationRange> <text>0.30-1.00</text> </observationRange> </ referenceRange> </observation> </component> <component> <observation moodCode="EVN" classCode="OBS"> <templateId root= "11.30.840.1.179756.08.03.22.4.2" /> <id nullFlavor="NA" /> < code codeSystem="local" code="ASEGR" displayName="Absolute Neutrophils" /> <statusCode code="completed" /> <effectiveTime value="353673787172 " /> <value unit="10*3/uL" xsi:type="PQ" value="2.23" /> < referenceRange> <observationRange> <text>1.90-7.00</text > </observationRange> </referenceRange> </observation > </component> <component> <observation moodCode="EVN" classCode="OBS"> <templateId root="11.30.840.1.155690.1022.4.2" /> <id nullFlavor="NA" /> <code codeSystem="local" code="BASOR" displayName="Basophils" /> <statusCode code="completed" /> < effectiveTime value="048507764524" /> <value unit="%" xsi:type="PQ " value="1" /> <referenceRange> <observationRange> <text>0-2</text> </observationRange> </referenceRange> </observation> </component> <component> <observation moodCode="EVN" classCode="OBS"> <templateId root= "216.840.1.513163.10.22.4.2" /> <id nullFlavor="NA" /> < code codeSystem="local" code="EOSR" displayName="Eosinophils" /> < statusCode code="completed" /> <effectiveTime value="646510147642" /> <value unit="%" xsi:type="PQ" value="8" /> < interpretationCode codeSystem="local" code="*" /> <referenceRange> <observationRange> <text>0-4</text> </ observationRange> </referenceRange> </observation> </ component> <component> <observation moodCode="EVN" classCode="OBS"> <templateId root="11.30.840.1.304029.08.03.22.4.2" /> <id nullFlavor="NA" /> <code codeSystem="local" code="HCT" displayName="HCT " /> <statusCode code="completed" /> <effectiveTime value= "819783502192" /> <value unit="%" xsi:type="PQ" value="37.0" /> <referenceRange> <observationRange> <text>37.0- 47.0</text> </observationRange> </referenceRange> </ observation> </component> <component> <observation moodCode= "EVN" classCode="OBS"> <templateId root="216.840.1.933926.10.2022.4.2 " /> <id nullFlavor="NA" /> <code codeSystem="local" code="HGB " displayName="HGB" /> <statusCode code="completed" /> < effectiveTime value="579254027776" /> <value unit="g/dL" xsi:type="PQ" value="12.1" /> <referenceRange> <observationRange> <text>12.0-16.0</text> </observationRange> </ referenceRange> </observation> </component> <component> <observation moodCode="EVN" classCode="OBS"> <templateId root= "2.16.840.1.007723.10...4.2" /> <id nullFlavor="NA" /> < code codeSystem="local" code="IMGA" displayName="Immature Granulocytes" /> <statusCode code="completed" /> <effectiveTime value="662750610971 " /> <value unit="%" xsi:type="PQ" value="0.2" /> < referenceRange> <observationRange> <text>0.0-1.0</text> </observationRange> </referenceRange> </observation > </component> <component> <observation moodCode="EVN" classCode="OBS"> <templateId root="2.16.840.1.488491.10...4.2" /> <id nullFlavor="NA" /> <code codeSystem="local" code="LYMPR" displayName="Lymphocytes" /> <statusCode code="completed" /> < effectiveTime value="808535395456" /> <value unit="%" xsi:type="PQ " value="29" /> <referenceRange> <observationRange> <text>20-46</text> </observationRange> </ referenceRange> </observation> </component> <component> <observation moodCode="EVN" classCode="OBS"> <templateId root= "16.840.1.611039.10.20.22.4.2" /> <id nullFlavor="NA" /> < code codeSystem="local" code="MCH" displayName="MCH" /> <statusCode code="completed" /> <effectiveTime value="346896414254" /> < value unit="pg" xsi:type="PQ" value="30.6" /> <referenceRange> <observationRange> <text>27.0-32.0</text> </ observationRange> </referenceRange> </observation> </ component> <component> <observation moodCode="EVN" classCode="OBS"> <templateId root="11.30.840.1.236366.10.22.4.2" /> <id nullFlavor="NA" /> <code codeSystem="local" code="MCHC" displayName= "MCHC" /> <statusCode code="completed" /> <effectiveTime value ="212409200837" /> <value unit="g/dL" xsi:type="PQ" value="32.7" /> <referenceRange> <observationRange> <text>32.0- 36.0</text> </observationRange> </referenceRange> </ observation> </component> <component> <observation moodCode= "EVN" classCode="OBS"> <templateId root="11.30.840.1.736241.10.20.22.4.2 " /> <id nullFlavor="NA" /> <code codeSystem="local" code="MCV " displayName="MCV" /> <statusCode code="completed" /> < effectiveTime value="056568758460" /> <value unit="fL" xsi:type="PQ" value="93.4" /> <referenceRange> <observationRange> <text>82.0-99.0</text> </observationRange> </ referenceRange> </observation> </component> <component> <observation moodCode="EVN" classCode="OBS"> <templateId root= "216.840.1.210307.102022.4.2" /> <id nullFlavor="NA" /> < code codeSystem="local" code="MONOR" displayName="Monocytes" /> < statusCode code="completed" /> <effectiveTime value="" /> <value unit="%" xsi:type="PQ" value="9" /> <referenceRange > <observationRange> <text>4-11</text> </ observationRange> </referenceRange> </observation> </ component> <component> <observation moodCode="EVN" classCode="OBS"> <templateId root="11.30.840.1.308563.10.4.2" /> <id nullFlavor="NA" /> <code codeSystem="local" code="MPV" displayName="MPV " /> <statusCode code="completed" /> <effectiveTime value= "363981919250" /> <value unit="fL" xsi:type="PQ" value="10.1" /> <referenceRange> <observationRange> <text>9.4-12.4</ text> </observationRange> </referenceRange> </ observation> </component> <component> <observation moodCode= "EVN" classCode="OBS"> <templateId root="16.840.1.245511.10.2022.4.2 " /> <id nullFlavor="NA" /> <code codeSystem="local" code= "SEGR" displayName="Neutrophils" /> <statusCode code="completed" /> <effectiveTime value="339023105036" /> <value unit="%" xsi: type="PQ" value="54" /> <referenceRange> <observationRange> <text>51-75</text> </observationRange> </ referenceRange> </observation> </component> <component> <observation moodCode="EVN" classCode="OBS"> <templateId root= "11.30.840.1.660594.10..4.2" /> <id nullFlavor="NA" /> < code codeSystem="local" code="NRBCA" displayName="Nucleated RBC Automated" /> <statusCode code="completed" /> <effectiveTime value= "577822713845" /> <value unit="/100WBC" xsi:type="PQ" value="0.0" /> <referenceRange> <observationRange> <text /> </observationRange> </referenceRange> </observation> </component> <component> <observation moodCode="EVN" classCode= "OBS"> <templateId root="840.1.535741.10.4.2" /> < id nullFlavor="NA" /> <code codeSystem="local" code="PLT" displayName= "Platelet Count" /> <statusCode code="completed" /> < effectiveTime value="478503393178" /> <value unit="K/uL" xsi:type="PQ" value="192" /> <referenceRange> <observationRange> <text>150-400</text> </observationRange> </ referenceRange> </observation> </component> <component> <observation moodCode="EVN" classCode="OBS"> <templateId root= "11.30.840.1.869045.10.4.2" /> <id nullFlavor="NA" /> < code codeSystem="local" code="RBC" displayName="RBC" /> <statusCode code="completed" /> <effectiveTime value="426686075757" /> < value unit="10*6/uL" xsi:type="PQ" value="3.96" /> <interpretationCode codeSystem="local" code="*" /> <referenceRange> < observationRange> <text>4.00-5.20</text> </ observationRange> </referenceRange> </observation> </ component> <component> <observation moodCode="EVN" classCode="OBS"> <templateId root="2.16.840.1.432766.10.20.22.4.2" /> <id nullFlavor="NA" /> <code codeSystem="local" code="RDW" displayName="RDW " /> <statusCode code="completed" /> <effectiveTime value= "340359438220" /> <value unit="%" xsi:type="PQ" value="13.3" /> <referenceRange> <observationRange> <text>11.5- 14.5</text> </observationRange> </referenceRange> </ observation> </component> <component> <observation moodCode= "EVN" classCode="OBS"> <templateId root="2.16.840.1.819772.10.20.22.4.2 " /> <id nullFlavor="NA" /> <code codeSystem="local" code= "WBCIR" displayName="WBC" /> <statusCode code="completed" /> < effectiveTime value="207508976280" /> <value unit="K/uL" xsi:type="PQ" value="4.2" /> <interpretationCode codeSystem="local" code="*" /> <referenceRange> <observationRange> <text>4.8-10.8< /text> </observationRange> </referenceRange> </ observation> </component> </organizer> </entry> <entry> <organizer moodCode="EVN" classCode="BATTERY"> <templateId root= "11.30.840.1.742390.10..22.4.1" /> <id nullFlavor="NA" /> <code codeSystem="local" code="CMP" displayName="Comprehensive Metabolic Panel (CMP)" /> <statusCode code="completed" /> <component> <observation moodCode="EVN" classCode="OBS"> <templateId root= "11.30.840.1.318391.08.03.22.4.2" /> <id nullFlavor="NA" /> < code codeSystem="local" code="ALB" displayName="Albumin" /> < statusCode code="completed" /> <effectiveTime value="661101464884" /> <value unit="g/dL" xsi:type="PQ" value="3.5" /> < referenceRange> <observationRange> <text>3.5-4.8</text> </observationRange> </referenceRange> </observation > </component> <component> <observation moodCode="EVN" classCode="OBS"> <templateId root="11.30.840.1.664701.10.4.2" /> <id nullFlavor="NA" /> <code codeSystem="local" code="ALP" displayName="Alkaline Phosphatase" /> <statusCode code="completed" /> <effectiveTime value="057677900516" /> <value unit="U/L" xsi: type="PQ" value="64" /> <referenceRange> <observationRange> <text>26-104</text> </observationRange> </ referenceRange> </observation> </component> <component> <observation moodCode="EVN" classCode="OBS"> <templateId root= "11.30.840.1.871576...4.2" /> <id nullFlavor="NA" /> < code codeSystem="local" code="ALT" displayName="ALT (SGPT)" /> < statusCode code="completed" /> <effectiveTime value="603241170044" /> <value unit="U/L" xsi:type="PQ" value="209" /> < interpretationCode codeSystem="local" code="*" /> <referenceRange> <observationRange> <text>14-54</text> </ observationRange> </referenceRange> </observation> </ component> <component> <observation moodCode="EVN" classCode="OBS"> <templateId root="2.16.840.1.878371.10..4.2" /> <id nullFlavor="NA" /> <code codeSystem="local" code="AGAP" displayName= "Anion Gap" /> <statusCode code="completed" /> <effectiveTime value="377651858695" /> <value unit="mEq/L" xsi:type="PQ" value="8" /> <referenceRange> <observationRange> <text>3-20 </text> </observationRange> </referenceRange> </ observation> </component> <component> <observation moodCode= "EVN" classCode="OBS"> <templateId root="2.16.840.1.392330.10..22.4.2 " /> <id nullFlavor="NA" /> <code codeSystem="local" code="AST " displayName="AST (SGOT)" /> <statusCode code="completed" /> <effectiveTime value="565081916164" /> <value unit="U/L" xsi:type="PQ" value="155" /> <interpretationCode codeSystem="local" code="*" /> <referenceRange> <observationRange> <text>15-41</ text> </observationRange> </referenceRange> </ observation> </component> <component> <observation moodCode= "EVN" classCode="OBS"> <templateId root="216.840.1.186235.22.4.2 " /> <id nullFlavor="NA" /> <code codeSystem="local" code= "BILIT" displayName="Bilirubin Total" /> <statusCode code="completed" / > <effectiveTime value="149500527421" /> <value unit="mg/dL" xsi:type="PQ" value="0.5" /> <referenceRange> < observationRange> <text>0.2-1.2</text> </ observationRange> </referenceRange> </observation> </ component> <component> <observation moodCode="EVN" classCode="OBS"> <templateId root="11.30.840.1.359802.08.03.22.4.2" /> <id nullFlavor="NA" /> <code codeSystem="local" code="BUN" displayName="BUN " /> <statusCode code="completed" /> <effectiveTime value= "366579476309" /> <value unit="mg/dL" xsi:type="PQ" value="8" /> <referenceRange> <observationRange> <text>4-20</text > </observationRange> </referenceRange> </observation > </component> <component> <observation moodCode="EVN" classCode="OBS"> <templateId root="16.840.1.345844.1022.4.2" /> <id nullFlavor="NA" /> <code codeSystem="local" code="CA" displayName="Calcium" /> <statusCode code="completed" /> < effectiveTime value="466794262518" /> <value unit="mg/dL" xsi:type="PQ " value="8.8" /> <referenceRange> <observationRange> <text>8.6-10.0</text> </observationRange> </ referenceRange> </observation> </component> <component> <observation moodCode="EVN" classCode="OBS"> <templateId root= "216.840.1.141580.10..22.4.2" /> <id nullFlavor="NA" /> < code codeSystem="local" code="CL" displayName="Chloride" /> < statusCode code="completed" /> <effectiveTime value="544769054617" /> <value unit="mEq/L" xsi:type="PQ" value="108" /> < referenceRange> <observationRange> <text>99-109</text> </observationRange> </referenceRange> </observation> </component> <component> <observation moodCode="EVN" classCode ="OBS"> <templateId root="11.30.840.1.799088.10.22.4.2" /> < id nullFlavor="NA" /> <code codeSystem="local" code="CO2" displayName= "CO2" /> <statusCode code="completed" /> <effectiveTime value= "503247511406" /> <value unit="mEq/L" xsi:type="PQ" value="24" /> <referenceRange> <observationRange> <text>22-32</ text> </observationRange> </referenceRange> </ observation> </component> <component> <observation moodCode= "EVN" classCode="OBS"> <templateId root="11.30.840.1.388486.10.2022.4.2 " /> <id nullFlavor="NA" /> <code codeSystem="local" code= "CREAT" displayName="Creatinine" /> <statusCode code="completed" /> <effectiveTime value="365852970410" /> <value unit="mg/dL" xsi: type="PQ" value="0.77" /> <referenceRange> <observationRange > <text>0.44-1.03</text> </observationRange> </ referenceRange> </observation> </component> <component> <observation moodCode="EVN" classCode="OBS"> <templateId root= "216.840.1.777754.10.22.4.2" /> <id nullFlavor="NA" /> < code codeSystem="local" code="GLOB" displayName="Globulin" /> < statusCode code="completed" /> <effectiveTime value="515214939620" /> <value unit="g/dL" xsi:type="PQ" value="2.3" /> < referenceRange> <observationRange> <text>1.9-4.3</text> </observationRange> </referenceRange> </observation > </component> <component> <observation moodCode="EVN" classCode="OBS"> <templateId root="11.30.840.1.063205.10..4.2" /> <id nullFlavor="NA" /> <code codeSystem="local" code="GLU" displayName="Glucose" /> <statusCode code="completed" /> < effectiveTime value="761144427395" /> <value unit="mg/dL" xsi:type="PQ " value="111" /> <interpretationCode codeSystem="local" code="*" /> <referenceRange> <observationRange> <text>70-100< /text> </observationRange> </referenceRange> </ observation> </component> <component> <observation moodCode= "EVN" classCode="OBS"> <templateId root="16.840.1.800635..204.2 " /> <id nullFlavor="NA" /> <code codeSystem="local" code="K" displayName="Potassium" /> <statusCode code="completed" /> < effectiveTime value="725682866000" /> <value unit="mEq/L" xsi:type="PQ " value="3.5" /> <interpretationCode codeSystem="local" code="*" /> <referenceRange> <observationRange> <text>3.6-5.1 </text> </observationRange> </referenceRange> </ observation> </component> <component> <observation moodCode= "EVN" classCode="OBS"> <templateId root="16.840.1.570024.08.03.224.2 " /> <id nullFlavor="NA" /> <code codeSystem="local" code="TP " displayName="Protein" /> <statusCode code="completed" /> < effectiveTime value="562205095587" /> <value unit="g/dL" xsi:type="PQ" value="5.8" /> <interpretationCode codeSystem="local" code="*" /> <referenceRange> <observationRange> <text>6.1-7.9</ text> </observationRange> </referenceRange> </ observation> </component> <component> <observation moodCode= "EVN" classCode="OBS"> <templateId root="11.30.840.1.798667.08.03.22.4.2 " /> <id nullFlavor="NA" /> <code codeSystem="local" code="NA " displayName="Sodium" /> <statusCode code="completed" /> < effectiveTime value="941301899799" /> <value unit="mEq/L" xsi:type="PQ " value="140" /> <referenceRange> <observationRange> <text>136-144</text> </observationRange> </ referenceRange> </observation> </component> </organizer> </entry > <entry> <organizer moodCode="EVN" classCode="BATTERY"> <templateId root="840.1.685578.08.03.22.4.1" /> <id nullFlavor="NA" /> <code codeSystem="local" code="ALC" displayName="Alcohol, Blood" /> <statusCode code="completed" /> <component> <observation moodCode="EVN" classCode="OBS"> <templateId root="840.1.727075.08.03.22.4.2" /> <id nullFlavor="NA" /> <code codeSystem="local" code="ALC" displayName="Alcohol, Blood" /> <statusCode code="completed" /> <effectiveTime value="301541190995" /> <value unit="mg/dL" xsi:type= "PQ" value="Not Detected" /> <referenceRange> < observationRange> <text /> </observationRange> </referenceRange> </observation> </component> </organizer> </ entry> <entry> <organizer moodCode="EVN" classCode="BATTERY"> < templateId root="840.1.381428.08.03.22.4.1" /> <id nullFlavor="NA" /> <code codeSystem="local" code="GFR" displayName="eGFR" /> < statusCode code="completed" /> <component> <observation moodCode= "EVN" classCode="OBS"> <templateId root="840.1.629717.08.03.22.4.2 " /> <id nullFlavor="NA" /> <code codeSystem="local" code="GFR " displayName="eGFR" /> <statusCode code="completed" /> < effectiveTime value="014490038481" /> <value unit="mL/min" xsi:type="PQ " value=">60" /> <referenceRange> <observationRange> <text>>60</text> </observationRange> </ referenceRange> </observation> </component> </organizer> </entry > <entry> <organizer moodCode="EVN" classCode="BATTERY"> <templateId root="11.30.840.1.536631.10..22.4.1" /> <id nullFlavor="NA" /> <code codeSystem="local" code="ACETM" displayName="Acetaminophen" /> <statusCode code="completed" /> <component> <observation moodCode="EVN" classCode="OBS"> <templateId root="216.840.1.904982.10...4.2" /> <id nullFlavor="NA" /> <code codeSystem="local" code="ACETM" displayName="Acetaminophen" /> <statusCode code="completed" /> <effectiveTime value="852180591219" /> <value unit="mcg/mL" xsi:type= "PQ" value="<10" /> <referenceRange> <observationRange> <text>10-30</text> </observationRange> </ referenceRange> </observation> </component> </organizer> </entry > <entry> <organizer moodCode="EVN" classCode="BATTERY"> <templateId root="16.840.1.542475.10..22.4.1" /> <id nullFlavor="NA" /> <code codeSystem="local" code="SALIC" displayName="Salicylate" /> <statusCode code="completed" /> <component> <observation moodCode="EVN" classCode="OBS"> <templateId root="11.30.840.1.621693.10...4.2" /> <id nullFlavor="NA" /> <code codeSystem="local" code="SALIC" displayName="Salicylate" /> <statusCode code="completed" /> < effectiveTime value="609608056820" /> <value unit="mg/dL" xsi:type="PQ " value="<4" /> <referenceRange> <observationRange> <text>0-30</text> </observationRange> </ referenceRange> </observation> </component> </organizer> </entry > <entry> <organizer moodCode="EVN" classCode="BATTERY"> <templateId root="216.840.1.336848.10..4.1" /> <id nullFlavor="NA" /> <code codeSystem="local" code="TSHR" displayName="TSH with Reflex Free T4" /> < statusCode code="completed" /> <component> <observation moodCode= "EVN" classCode="OBS"> <templateId root="2.16.840.1.558096.10...4.2 " /> <id nullFlavor="NA" /> <code codeSystem="local" code= "TSHR" displayName="TSH with Reflex Free T4" /> <statusCode code= "completed" /> <effectiveTime value="068803063950" /> <value unit="uIU/mL" xsi:type="PQ" value="0.55" /> <referenceRange> <observationRange> <text>0.35-4.94</text> </ observationRange> </referenceRange> </observation> </ component> </organizer> </entry> <entry> <organizer moodCode="EVN" classCode="BATTERY"> <templateId root="216.840.1.558172.08.03.22.4.1" /> <id nullFlavor="NA" /> <code codeSystem="local" code="CPK" displayName ="Creatine Kinase (CPK)" /> <statusCode code="completed" /> <component > <observation moodCode="EVN" classCode="OBS"> <templateId root= "216.840.1.667031.10..22.4.2" /> <id nullFlavor="NA" /> < code codeSystem="local" code="CPK" displayName="Creatine Kinase (CPK)" /> <statusCode code="completed" /> <effectiveTime value="728155114475 " /> <value unit="U/L" xsi:type="PQ" value="74" /> < referenceRange> <observationRange> <text>38-234</text> </observationRange> </referenceRange> </observation> </component> </organizer> </entry> <entry> <organizer moodCode= "EVN" classCode="BATTERY"> <templateId root="11.30.840.1.871700.10..22.4.1 " /> <id nullFlavor="NA" /> <code codeSystem="local" code="HEP4" displayName="Hepatitis Panel" /> <statusCode code="completed" /> < component> <observation moodCode="EVN" classCode="OBS"> < templateId root="16.840.1.048404.10.20.22.4.2" /> <id nullFlavor="NA " /> <code codeSystem="local" code="HAABM" displayName="Hepatitis A Antibody IGM" /> <statusCode code="completed" /> < effectiveTime value="070017807777" /> <value unit="" xsi:type="PQ" value="Negative" /> <referenceRange> <observationRange> <text /> </observationRange> </referenceRange> </observation> </component> <component> <observation moodCode="EVN" classCode="OBS"> <templateId root= "2.16.840.1.646963.10..22.4.2" /> <id nullFlavor="NA" /> < code codeSystem="local" code="HBSAG" displayName="Hepatitis B Surface Antigen" / > <statusCode code="completed" /> <effectiveTime value= "764660522176" /> <value unit="" xsi:type="PQ" value="Negative" /> <referenceRange> <observationRange> <text /> </observationRange> </referenceRange> </observation> </component> </organizer> </entry> <entry> <organizer moodCode="EVN" classCode="BATTERY"> <templateId root="2.16.840.1.140380.10..22.4.1" /> <id nullFlavor="NA" /> <code codeSystem="local" code="PREGN" displayName=" Screen, Urine NPT" /> <statusCode code="completed" / > <component> <observation moodCode="EVN" classCode="OBS"> <templateId root="2.16.840.1.745675.10.20.22.4.2" /> <id nullFlavor="NA " /> <code codeSystem="local" code="PREGN" displayName=" Screen, Urine NPT" /> <statusCode code="completed" /> < effectiveTime value="449423115257" /> <value unit="NA" xsi:type="PQ" value="Negative" /> <referenceRange> <observationRange> <text /> </observationRange> </referenceRange> </observation> </component> </organizer> </entry> <entry> < organizer moodCode="EVN" classCode="BATTERY"> <templateId root= "11.30.840.1.978812.10..4.1" /> <id nullFlavor="NA" /> <code codeSystem="local" code="UA" displayName="Urinalysis with reflex microscopic" / > <statusCode code="completed" /> <component> <observation moodCode="EVN" classCode="OBS"> <templateId root= "840.1.546623.08.03.22.4.2" /> <id nullFlavor="NA" /> < code codeSystem="local" code="UAPP" displayName="Appearance" /> < statusCode code="completed" /> <effectiveTime value="822371726782" /> <value unit="NA" xsi:type="PQ" value="Sl Cloudy" /> < referenceRange> <observationRange> <text /> < /observationRange> </referenceRange> </observation> </ component> <component> <observation moodCode="EVN" classCode="OBS"> <templateId root="840.1.760389.08.03.224.2" /> <id nullFlavor="NA" /> <code codeSystem="local" code="UBIL" displayName= "Bilirubin" /> <statusCode code="completed" /> <effectiveTime value="048751293525" /> <value unit="NA" xsi:type="PQ" value="Negative " /> <referenceRange> <observationRange> <text> Negative</text> </observationRange> </referenceRange> </observation> </component> <component> <observation moodCode ="EVN" classCode="OBS"> <templateId root= "11.30.840.1.343799.08.03.22.4.2" /> <id nullFlavor="NA" /> < code codeSystem="local" code="UBLD" displayName="Blood" /> <statusCode code="completed" /> <effectiveTime value="287840920735" /> < value unit="NA" xsi:type="PQ" value="Negative" /> <referenceRange> <observationRange> <text>Negative</text> </ observationRange> </referenceRange> </observation> </ component> <component> <observation moodCode="EVN" classCode="OBS"> <templateId root="11.30.840.1.089082.08.03.22.4.2" /> <id nullFlavor="NA" /> <code codeSystem="local" code="UCOLR" displayName= "Color" /> <statusCode code="completed" /> <effectiveTime value="837600718959" /> <value unit="NA" xsi:type="PQ" value="Yellow" / > <referenceRange> <observationRange> <text /> </observationRange> </referenceRange> </observation > </component> <component> <observation moodCode="EVN" classCode="OBS"> <templateId root="840.1.034536.08.03.22.4.2" /> <id nullFlavor="NA" /> <code codeSystem="local" code="UGLU" displayName="Glucose, Urine" /> <statusCode code="completed" /> <effectiveTime value="073851415014" /> <value unit="" xsi:type="PQ" value="Negative" /> <referenceRange> <observationRange> <text>Negative</text> </observationRange> </ referenceRange> </observation> </component> <component> <observation moodCode="EVN" classCode="OBS"> <templateId root= "11.30.840.1.848453.08.03.22.4.2" /> <id nullFlavor="NA" /> < code codeSystem="local" code="UKET" displayName="Ketones" /> < statusCode code="completed" /> <effectiveTime value="347708648434" /> <value unit="" xsi:type="PQ" value="Negative" /> < referenceRange> <observationRange> <text>Negative</text > </observationRange> </referenceRange> </observation > </component> <component> <observation moodCode="EVN" classCode="OBS"> <templateId root="16.840.1.065861.10..4.2" /> <id nullFlavor="NA" /> <code codeSystem="local" code="ULEU" displayName="Leukocyte Esterase" /> <statusCode code="completed" /> <effectiveTime value="145186853940" /> <value unit="NA" xsi:type ="PQ" value="Trace" /> <interpretationCode codeSystem="local" code="*" /> <referenceRange> <observationRange> <text> Negative</text> </observationRange> </referenceRange> </observation> </component> <component> <observation moodCode ="EVN" classCode="OBS"> <templateId root= "16.840.1.068998.10..4.2" /> <id nullFlavor="NA" /> < code codeSystem="local" code="UNIT" displayName="Nitrites" /> < statusCode code="completed" /> <effectiveTime value="874887294545" /> <value unit="NA" xsi:type="PQ" value="Negative" /> < referenceRange> <observationRange> <text>Negative</text > </observationRange> </referenceRange> </observation > </component> <component> <observation moodCode="EVN" classCode="OBS"> <templateId root="11.30.840.1.970497.08.03.22.4.2" /> <id nullFlavor="NA" /> <code codeSystem="local" code="UPH" displayName="pH" /> <statusCode code="completed" /> < effectiveTime value="568232823796" /> <value unit="NA" xsi:type="PQ" value="6.0" /> <referenceRange> <observationRange> <text>5.0-8.0</text> </observationRange> </ referenceRange> </observation> </component> <component> <observation moodCode="EVN" classCode="OBS"> <templateId root= "216.840.1.194956.08.03.22.4.2" /> <id nullFlavor="NA" /> < code codeSystem="local" code="UPRO" displayName="Protein" /> < statusCode code="completed" /> <effectiveTime value="176055847967" /> <value unit="NA" xsi:type="PQ" value="Negative" /> < referenceRange> <observationRange> <text>Negative</text > </observationRange> </referenceRange> </observation > </component> <component> <observation moodCode="EVN" classCode="OBS"> <templateId root="216.840.1.952700.08.03.22.4.2" /> <id nullFlavor="NA" /> <code codeSystem="local" code="USPG" displayName="Specific [place]ill" /> <statusCode code="completed" /> <effectiveTime value="215389469218" /> <value unit="NA" xsi:type= "PQ" value="1.020" /> <referenceRange> <observationRange> <text>1.003-1.030</text> </observationRange> </ referenceRange> </observation> </component> <component> <observation moodCode="EVN" classCode="OBS"> <templateId root= "11.30.840.1.999363.10.4.2" /> <id nullFlavor="NA" /> < code codeSystem="local" code="UTYP" displayName="UA Collection type" /> <statusCode code="completed" /> <effectiveTime value="052864468596" / > <value unit="NA" xsi:type="PQ" value="Voided" /> < referenceRange> <observationRange> <text /> < /observationRange> </referenceRange> </observation> </ component> <component> <observation moodCode="EVN" classCode="OBS"> <templateId root="11.30.840.1.932211.08.03.22.4.2" /> <id nullFlavor="NA" /> <code codeSystem="local" code="UURO" displayName= "Urobilinogen" /> <statusCode code="completed" /> < effectiveTime value="516752414869" /> <value unit="mg/dL" xsi:type="PQ " value="Negative" /> <referenceRange> <observationRange> <text><1.0</text> </observationRange> </ referenceRange> </observation> </component> </organizer> </entry > <entry> <organizer moodCode="EVN" classCode="BATTERY"> <templateId root="11.30.840.1.210466.08.03.22.4.1" /> <id nullFlavor="NA" /> <code codeSystem="local" code="UMIC" displayName="Urine Microscopic" /> < statusCode code="completed" /> <component> <observation moodCode= "EVN" classCode="OBS"> <templateId root="11.30.840.1.779534.08.03.22.4.2 " /> <id nullFlavor="NA" /> <code codeSystem="local" code= "UBAC" displayName="Bacteria" /> <statusCode code="completed" /> <effectiveTime value="725853926178" /> <value unit="NA" xsi:type= "PQ" value="Moderate" /> <interpretationCode codeSystem="local" code="* " /> <referenceRange> <observationRange> <text /> </observationRange> </referenceRange> </ observation> </component> <component> <observation moodCode= "EVN" classCode="OBS"> <templateId root="216.840.1.829614.08.03.22.4.2 " /> <id nullFlavor="NA" /> <code codeSystem="local" code= "UEPI" displayName="Epithelial Cells" /> <statusCode code="completed" / > <effectiveTime value="367005440109" /> <value unit="/HPF" xsi:type="PQ" value="10" /> <referenceRange> < observationRange> <text /> </observationRange> </referenceRange> </observation> </component> <component> <observation moodCode="EVN" classCode="OBS"> <templateId root= "216.840.1.160103.10.4.2" /> <id nullFlavor="NA" /> < code codeSystem="local" code="URBC" displayName="RBC, Urine" /> < statusCode code="completed" /> <effectiveTime value="081257490479" /> <value unit="/HPF" xsi:type="PQ" value="0" /> <referenceRange > <observationRange> <text>0-2</text> </ observationRange> </referenceRange> </observation> </ component> <component> <observation moodCode="EVN" classCode="OBS"> <templateId root="840.1.587665.1022.4.2" /> <id nullFlavor="NA" /> <code codeSystem="local" code="UMUC" displayName= "Urine Mucus" /> <statusCode code="completed" /> < effectiveTime value="217042999780" /> <value unit="NA" xsi:type="PQ" value="Present" /> <referenceRange> <observationRange> <text /> </observationRange> </referenceRange> </observation> </component> <component> <observation moodCode="EVN" classCode="OBS"> <templateId root= "840.1.071111.08.03.22.4.2" /> <id nullFlavor="NA" /> < code codeSystem="local" code="UWBC" displayName="WBC, Urine" /> < statusCode code="completed" /> <effectiveTime value="667869002969" /> <value unit="/HPF" xsi:type="PQ" value="2" /> <referenceRange > <observationRange> <text>0-4</text> </ observationRange> </referenceRange> </observation> </ component> </organizer> </entry> <entry> <organizer moodCode="EVN" classCode="BATTERY"> <templateId root="840.1.090285.10.4.1" /> <id nullFlavor="NA" /> <code codeSystem="local" code="CBCWD" displayName="CBC With Platelet and Differential" /> <statusCode code= "completed" /> <component> <observation moodCode="EVN" classCode= "OBS"> <templateId root="840.1.221191.1022.4.2" /> < id nullFlavor="NA" /> <code codeSystem="local" code="ABASR" displayName ="Absolute Basophils" /> <statusCode code="completed" /> < effectiveTime value="809705316263" /> <value unit="10*3/uL" xsi:type= "PQ" value="0.03" /> <referenceRange> <observationRange> <text>0.00-0.20</text> </observationRange> </ referenceRange> </observation> </component> <component> <observation moodCode="EVN" classCode="OBS"> <templateId root= "2.16.840.1.006311.10..22.4.2" /> <id nullFlavor="NA" /> < code codeSystem="local" code="AEOSR" displayName="Absolute Eosinophils" /> <statusCode code="completed" /> <effectiveTime value="148035182438 " /> <value unit="10*3/uL" xsi:type="PQ" value="0.26" /> < referenceRange> <observationRange> <text>0.00-0.50</text > </observationRange> </referenceRange> </observation > </component> <component> <observation moodCode="EVN" classCode="OBS"> <templateId root="2.16.840.1.458799.10..22.4.2" /> <id nullFlavor="NA" /> <code codeSystem="local" code="ALYMR" displayName="Absolute Lymphocytes" /> <statusCode code="completed" /> <effectiveTime value="742429630778" /> <value unit="10*3/uL" xsi:type="PQ" value="1.96" /> <referenceRange> < observationRange> <text>0.80-3.30</text> </ observationRange> </referenceRange> </observation> </ component> <component> <observation moodCode="EVN" classCode="OBS"> <templateId root="16.840.1.041745.10.20.22.4.2" /> <id nullFlavor="NA" /> <code codeSystem="local" code="AMONR" displayName= "Absolute Monocytes" /> <statusCode code="completed" /> < effectiveTime value="655790355053" /> <value unit="10*3/uL" xsi:type= "PQ" value="0.43" /> <referenceRange> <observationRange> <text>0.30-1.00</text> </observationRange> </ referenceRange> </observation> </component> <component> <observation moodCode="EVN" classCode="OBS"> <templateId root= "16.840.1.047233.10.4.2" /> <id nullFlavor="NA" /> < code codeSystem="local" code="ASEGR" displayName="Absolute Neutrophils" /> <statusCode code="completed" /> <effectiveTime value="254766169071 " /> <value unit="10*3/uL" xsi:type="PQ" value="3.42" /> < referenceRange> <observationRange> <text>1.90-7.00</text > </observationRange> </referenceRange> </observation > </component> <component> <observation moodCode="EVN" classCode="OBS"> <templateId root="16.840.1.849887.10.20.22.4.2" /> <id nullFlavor="NA" /> <code codeSystem="local" code="BASOR" displayName="Basophils" /> <statusCode code="completed" /> < effectiveTime value="049946357460" /> <value unit="%" xsi:type="PQ " value="1" /> <referenceRange> <observationRange> <text>0-2</text> </observationRange> </referenceRange> </observation> </component> <component> <observation moodCode="EVN" classCode="OBS"> <templateId root= "11.30.840.1.923013.10..22.4.2" /> <id nullFlavor="NA" /> < code codeSystem="local" code="EOSR" displayName="Eosinophils" /> < statusCode code="completed" /> <effectiveTime value="896368327830" /> <value unit="%" xsi:type="PQ" value="4" /> <referenceRange > <observationRange> <text>0-4</text> </ observationRange> </referenceRange> </observation> </ component> <component> <observation moodCode="EVN" classCode="OBS"> <templateId root="11.30.840.1.787666.08.03.22.4.2" /> <id nullFlavor="NA" /> <code codeSystem="local" code="HCT" displayName="HCT " /> <statusCode code="completed" /> <effectiveTime value= "416297790834" /> <value unit="%" xsi:type="PQ" value="36.8" /> <interpretationCode codeSystem="local" code="*" /> < referenceRange> <observationRange> <text>37.0-47.0</text > </observationRange> </referenceRange> </observation > </component> <component> <observation moodCode="EVN" classCode="OBS"> <templateId root="11.30.840.1.052258.10...4.2" /> <id nullFlavor="NA" /> <code codeSystem="local" code="HGB" displayName="HGB" /> <statusCode code="completed" /> < effectiveTime value="802273174766" /> <value unit="g/dL" xsi:type="PQ" value="11.7" /> <interpretationCode codeSystem="local" code="*" /> <referenceRange> <observationRange> <text>12.0- 16.0</text> </observationRange> </referenceRange> </ observation> </component> <component> <observation moodCode= "EVN" classCode="OBS"> <templateId root="216.840.1.468490.10..22.4.2 " /> <id nullFlavor="NA" /> <code codeSystem="local" code= "IMGA" displayName="Immature Granulocytes" /> <statusCode code= "completed" /> <effectiveTime value="766045679599" /> <value unit="%" xsi:type="PQ" value="0.5" /> <referenceRange> < observationRange> <text>0.0-1.0</text> </ observationRange> </referenceRange> </observation> </ component> <component> <observation moodCode="EVN" classCode="OBS"> <templateId root="216.840.1.293199.10..22.4.2" /> <id nullFlavor="NA" /> <code codeSystem="local" code="LYMPR" displayName= "Lymphocytes" /> <statusCode code="completed" /> < effectiveTime value="780332599518" /> <value unit="%" xsi:type="PQ " value="32" /> <referenceRange> <observationRange> <text>20-46</text> </observationRange> </ referenceRange> </observation> </component> <component> <observation moodCode="EVN" classCode="OBS"> <templateId root= "16.840.1.947610.22.4.2" /> <id nullFlavor="NA" /> < code codeSystem="local" code="MCH" displayName="MCH" /> <statusCode code="completed" /> <effectiveTime value="976318780346" /> < value unit="pg" xsi:type="PQ" value="29.9" /> <referenceRange> <observationRange> <text>27.0-32.0</text> </ observationRange> </referenceRange> </observation> </ component> <component> <observation moodCode="EVN" classCode="OBS"> <templateId root="216.840.1.109795.08.03.22.4.2" /> <id nullFlavor="NA" /> <code codeSystem="local" code="MCHC" displayName= "MCHC" /> <statusCode code="completed" /> <effectiveTime value ="116343279622" /> <value unit="g/dL" xsi:type="PQ" value="31.8" /> <interpretationCode codeSystem="local" code="*" /> < referenceRange> <observationRange> <text>32.0-36.0</text > </observationRange> </referenceRange> </observation > </component> <component> <observation moodCode="EVN" classCode="OBS"> <templateId root="16.840.1.879637.102022.4.2" /> <id nullFlavor="NA" /> <code codeSystem="local" code="MCV" displayName="MCV" /> <statusCode code="completed" /> < effectiveTime value="870543800322" /> <value unit="fL" xsi:type="PQ" value="94.1" /> <referenceRange> <observationRange> <text>82.0-99.0</text> </observationRange> </ referenceRange> </observation> </component> <component> <observation moodCode="EVN" classCode="OBS"> <templateId root= "2.16.840.1.185217.10.22.4.2" /> <id nullFlavor="NA" /> < code codeSystem="local" code="MONOR" displayName="Monocytes" /> < statusCode code="completed" /> <effectiveTime value="" /> <value unit="%" xsi:type="PQ" value="7" /> <referenceRange > <observationRange> <text>4-11</text> </ observationRange> </referenceRange> </observation> </ component> <component> <observation moodCode="EVN" classCode="OBS"> <templateId root="11.30.840.1.901307.10.4.2" /> <id nullFlavor="NA" /> <code codeSystem="local" code="MPV" displayName="MPV " /> <statusCode code="completed" /> <effectiveTime value= "" /> <value unit="fL" xsi:type="PQ" value="9.4" /> <referenceRange> <observationRange> <text>9.4-12.4</ text> </observationRange> </referenceRange> </ observation> </component> <component> <observation moodCode= "EVN" classCode="OBS"> <templateId root="216.840.1.151431.1022.4.2 " /> <id nullFlavor="NA" /> <code codeSystem="local" code= "SEGR" displayName="Neutrophils" /> <statusCode code="completed" /> <effectiveTime value="" /> <value unit="%" xsi: type="PQ" value="56" /> <referenceRange> <observationRange> <text>51-75</text> </observationRange> </ referenceRange> </observation> </component> <component> <observation moodCode="EVN" classCode="OBS"> <templateId root= "16.840.1.844084.10...4.2" /> <id nullFlavor="NA" /> < code codeSystem="local" code="NRBCA" displayName="Nucleated RBC Automated" /> <statusCode code="completed" /> <effectiveTime value= "094025209039" /> <value unit="/100WBC" xsi:type="PQ" value="0.0" /> <referenceRange> <observationRange> <text /> </observationRange> </referenceRange> </observation> </component> <component> <observation moodCode="EVN" classCode= "OBS"> <templateId root="11.30.840.1.930946.10..4.2" /> < id nullFlavor="NA" /> <code codeSystem="local" code="PLT" displayName= "Platelet Count" /> <statusCode code="completed" /> < effectiveTime value="620074867623" /> <value unit="K/uL" xsi:type="PQ" value="290" /> <referenceRange> <observationRange> <text>150-400</text> </observationRange> </ referenceRange> </observation> </component> <component> <observation moodCode="EVN" classCode="OBS"> <templateId root= "11.30.840.1.118911.10.4.2" /> <id nullFlavor="NA" /> < code codeSystem="local" code="RBC" displayName="RBC" /> <statusCode code="completed" /> <effectiveTime value="069245777752" /> < value unit="10*6/uL" xsi:type="PQ" value="3.91" /> <interpretationCode codeSystem="local" code="*" /> <referenceRange> < observationRange> <text>4.00-5.20</text> </ observationRange> </referenceRange> </observation> </ component> <component> <observation moodCode="EVN" classCode="OBS"> <templateId root="2.16.840.1.486804.10.20.22.4.2" /> <id nullFlavor="NA" /> <code codeSystem="local" code="RDW" displayName="RDW " /> <statusCode code="completed" /> <effectiveTime value= "676383921885" /> <value unit="%" xsi:type="PQ" value="13.3" /> <referenceRange> <observationRange> <text>11.5- 14.5</text> </observationRange> </referenceRange> </ observation> </component> <component> <observation moodCode= "EVN" classCode="OBS"> <templateId root="2.16.840.1.553245.10.20.22.4.2 " /> <id nullFlavor="NA" /> <code codeSystem="local" code= "WBCIR" displayName="WBC" /> <statusCode code="completed" /> < effectiveTime value="976588082031" /> <value unit="K/uL" xsi:type="PQ" value="6.1" /> <referenceRange> <observationRange> <text>4.8-10.8</text> </observationRange> </ referenceRange> </observation> </component> </organizer> </entry > <entry> <organizer moodCode="EVN" classCode="BATTERY"> <templateId root="11.30.840.1.514666.10..22.4.1" /> <id nullFlavor="NA" /> <code codeSystem="local" code="BMP" displayName="Basic Metabolic Panel (BMP)" /> <statusCode code="completed" /> <component> <observation moodCode= "EVN" classCode="OBS"> <templateId root="840.1.527128.08.03.22.4.2 " /> <id nullFlavor="NA" /> <code codeSystem="local" code= "AGAP" displayName="Anion Gap" /> <statusCode code="completed" /> <effectiveTime value="096631732373" /> <value unit="mEq/L" xsi: type="PQ" value="8" /> <referenceRange> <observationRange> <text>3-20</text> </observationRange> </ referenceRange> </observation> </component> <component> <observation moodCode="EVN" classCode="OBS"> <templateId root= "840.1.449339.08.03.22.4.2" /> <id nullFlavor="NA" /> < code codeSystem="local" code="BUN" displayName="BUN" /> <statusCode code="completed" /> <effectiveTime value="179611931767" /> < value unit="mg/dL" xsi:type="PQ" value="12" /> <referenceRange> <observationRange> <text>4-20</text> </ observationRange> </referenceRange> </observation> </ component> <component> <observation moodCode="EVN" classCode="OBS"> <templateId root="11.30.840.1.979519.10.22.4.2" /> <id nullFlavor="NA" /> <code codeSystem="local" code="CA" displayName= "Calcium" /> <statusCode code="completed" /> <effectiveTime value="994393596794" /> <value unit="mg/dL" xsi:type="PQ" value="8.3" / > <interpretationCode codeSystem="local" code="*" /> < referenceRange> <observationRange> <text>8.6-10.0</text > </observationRange> </referenceRange> </observation > </component> <component> <observation moodCode="EVN" classCode="OBS"> <templateId root="16.840.1.841251.10..22.4.2" /> <id nullFlavor="NA" /> <code codeSystem="local" code="CL" displayName="Chloride" /> <statusCode code="completed" /> < effectiveTime value="525827440718" /> <value unit="mEq/L" xsi:type="PQ " value="104" /> <referenceRange> <observationRange> <text>99-109</text> </observationRange> </ referenceRange> </observation> </component> <component> <observation moodCode="EVN" classCode="OBS"> <templateId root= "11.30.840.1.591555.10..22.4.2" /> <id nullFlavor="NA" /> < code codeSystem="local" code="CO2" displayName="CO2" /> <statusCode code="completed" /> <effectiveTime value="714232871112" /> < value unit="mEq/L" xsi:type="PQ" value="26" /> <referenceRange> <observationRange> <text>22-32</text> </ observationRange> </referenceRange> </observation> </ component> <component> <observation moodCode="EVN" classCode="OBS"> <templateId root="840.1.264314.10..22.4.2" /> <id nullFlavor="NA" /> <code codeSystem="local" code="CREAT" displayName= "Creatinine" /> <statusCode code="completed" /> < effectiveTime value="172648460883" /> <value unit="mg/dL" xsi:type="PQ " value="0.58" /> <referenceRange> <observationRange> <text>0.44-1.03</text> </observationRange> </ referenceRange> </observation> </component> <component> <observation moodCode="EVN" classCode="OBS"> <templateId root= "16.840.1.408376.10..4.2" /> <id nullFlavor="NA" /> < code codeSystem="local" code="GLU" displayName="Glucose" /> < statusCode code="completed" /> <effectiveTime value="011379170798" /> <value unit="mg/dL" xsi:type="PQ" value="67" /> < interpretationCode codeSystem="local" code="*" /> <referenceRange> <observationRange> <text>70-100</text> </ observationRange> </referenceRange> </observation> </ component> <component> <observation moodCode="EVN" classCode="OBS"> <templateId root="11.30.840.1.614125.10..22.4.2" /> <id nullFlavor="NA" /> <code codeSystem="local" code="K" displayName= "Potassium" /> <statusCode code="completed" /> <effectiveTime value="265892225364" /> <value unit="mEq/L" xsi:type="PQ" value="3.9" / > <referenceRange> <observationRange> <text>3.6 -5.1</text> </observationRange> </referenceRange> </ observation> </component> <component> <observation moodCode= "EVN" classCode="OBS"> <templateId root="216.840.1.144312.10..22.4.2 " /> <id nullFlavor="NA" /> <code codeSystem="local" code="NA " displayName="Sodium" /> <statusCode code="completed" /> < effectiveTime value="943173476425" /> <value unit="mEq/L" xsi:type="PQ " value="138" /> <referenceRange> <observationRange> <text>136-144</text> </observationRange> </ referenceRange> </observation> </component> </organizer> </entry > <entry> <organizer moodCode="EVN" classCode="BATTERY"> <templateId root="216.840.1.994138.10..22.4.1" /> <id nullFlavor="NA" /> <code codeSystem="local" code="GFR" displayName="eGFR" /> <statusCode code= "completed" /> <component> <observation moodCode="EVN" classCode= "OBS"> <templateId root="216.840.1.262415.10..22.4.2" /> < id nullFlavor="NA" /> <code codeSystem="local" code="GFR" displayName= "eGFR" /> <statusCode code="completed" /> <effectiveTime value ="208730130184" /> <value unit="mL/min" xsi:type="PQ" value=">60" / > <referenceRange> <observationRange> <text>&gt ;60</text> </observationRange> </referenceRange> </ observation> </component> </organizer> </entry> <entry> <organizer moodCode="EVN" classCode="BATTERY"> <templateId root= "16.840.1.981645.10...4.1" /> <id nullFlavor="NA" /> <code codeSystem="local" code="GLUN" displayName="Glucose NPT" /> <statusCode code="completed" /> <component> <observation moodCode="EVN" classCode="OBS"> <templateId root="11.30.840.1.307161.08.03.22.4.2" /> <id nullFlavor="NA" /> <code codeSystem="local" code="GLUN" displayName="Glucose NPT" /> <statusCode code="completed" /> <effectiveTime value="836553746527" /> <value unit="mg/dL" xsi:type="PQ " value="99" /> <referenceRange> <observationRange> <text>70-100</text> </observationRange> </ referenceRange> </observation> </component> </organizer> </entry > <entry> <organizer moodCode="EVN" classCode="BATTERY"> <templateId root="11.30.840.1.472229.08.03.22.4.1" /> <id nullFlavor="NA" /> <code codeSystem="local" code="99491-6" displayName="Complete blood count (CBC) with automated white blood cell (WBC) differential" /> <statusCode code= "completed" /> <component> <observation moodCode="EVN" classCode= "OBS"> <templateId root="11.30.840.1.551846.10...4.2" /> < id nullFlavor="NA" /> <code codeSystem="local" code="6690-2" displayName="Blood leukocytes automated count (number/volume)" /> < statusCode code="completed" /> <effectiveTime value="288714294974" /> <value unit="10*3/uL" xsi:type="PQ" value="9.1" /> < referenceRange> <observationRange> <text>4.3-11.0</text > </observationRange> </referenceRange> </observation > </component> <component> <observation moodCode="EVN" classCode="OBS"> <templateId root="2.16.840.1.477187.10.20.22.4.2" /> <id nullFlavor="NA" /> <code codeSystem="local" code="789-8" displayName="Blood erythrocytes automated count (number/volume)" /> < statusCode code="completed" /> <effectiveTime value="598669287633" /> <value unit="10*6/uL" xsi:type="PQ" value="4.56" /> < referenceRange> <observationRange> <text>4.35-5.85</text > </observationRange> </referenceRange> </observation > </component> <component> <observation moodCode="EVN" classCode="OBS"> <templateId root="2.16.840.1.855549.10.20.22.4.2" /> <id nullFlavor="NA" /> <code codeSystem="local" code="83439-1 " displayName="Venous blood hemoglobin measurement (mass/volume)" /> < statusCode code="completed" /> <effectiveTime value="829463594377" /> <value unit="g/dL" xsi:type="PQ" value="14.4" /> < referenceRange> <observationRange> <text>11.5-16.0</text > </observationRange> </referenceRange> </observation > </component> <component> <observation moodCode="EVN" classCode="OBS"> <templateId root="2.16.840.1.222095.10..22.4.2" /> <id nullFlavor="NA" /> <code codeSystem="local" code="19906-4 " displayName="Blood hematocrit (volume fraction)" /> <statusCode code= "completed" /> <effectiveTime value="574032683463" /> <value unit="%" xsi:type="PQ" value="40" /> <referenceRange> < observationRange> <text>35-52</text> </observationRange > </referenceRange> </observation> </component> < component> <observation moodCode="EVN" classCode="OBS"> < templateId root="2.16.840.1.206475.10...4.2" /> <id nullFlavor="NA " /> <code codeSystem="local" code="787-2" displayName="Automated erythrocyte mean corpuscular volume" /> <statusCode code="completed" / > <effectiveTime value="328112017466" /> <value unit="[foz_us] " xsi:type="PQ" value="88" /> <referenceRange> < observationRange> <text>80-99</text> </observationRange > </referenceRange> </observation> </component> < component> <observation moodCode="EVN" classCode="OBS"> < templateId root="216.840.1.007138.10..22.4.2" /> <id nullFlavor="NA " /> <code codeSystem="local" code="785-6" displayName="Automated erythrocyte mean corpuscular hemoglobin (mass per erythrocyte)" /> < statusCode code="completed" /> <effectiveTime value="362451171977" /> <value unit="pg" xsi:type="PQ" value="32" /> <referenceRange> <observationRange> <text>25-34</text> </ observationRange> </referenceRange> </observation> </ component> <component> <observation moodCode="EVN" classCode="OBS"> <templateId root="2.16.840.1.701458.10.20.22.4.2" /> <id nullFlavor="NA" /> <code codeSystem="local" code="786-4" displayName= "Automated erythrocyte mean corpuscular hemoglobin concentration measurement ( mass/volume)" /> <statusCode code="completed" /> < effectiveTime value="493685050848" /> <value unit="g/dL" xsi:type="PQ" value="36" /> <referenceRange> <observationRange> <text>32-36</text> </observationRange> </referenceRange > </observation> </component> <component> <observation moodCode="EVN" classCode="OBS"> <templateId root= "216.840.1.570539.10..4.2" /> <id nullFlavor="NA" /> < code codeSystem="local" code="788-0" displayName="Automated erythrocyte distribution width ratio" /> <statusCode code="completed" /> < effectiveTime value="397806840766" /> <value unit="%" xsi:type="PQ " value="14.4" /> <referenceRange> <observationRange> <text>10.0-14.5</text> </observationRange> </ referenceRange> </observation> </component> <component> <observation moodCode="EVN" classCode="OBS"> <templateId root= "2.16.840.1.685065.10.20.22.4.2" /> <id nullFlavor="NA" /> < code codeSystem="local" code="777-3" displayName="Automated blood platelet count (count/volume)" /> <statusCode code="completed" /> < effectiveTime value="646451017040" /> <value unit="10*3/uL" xsi:type= "PQ" value="279" /> <referenceRange> <observationRange> <text>130-400</text> </observationRange> </ referenceRange> </observation> </component> <component> <observation moodCode="EVN" classCode="OBS"> <templateId root= "216.840.1.982707.10.20.22.4.2" /> <id nullFlavor="NA" /> < code codeSystem="local" code="15077-3" displayName="Automated blood platelet mean volume measurement" /> <statusCode code="completed" /> < effectiveTime value="318059270657" /> <value unit="[foz_us]" xsi:type= "PQ" value="10.0" /> <referenceRange> <observationRange> <text>7.4-10.4</text> </observationRange> </ referenceRange> </observation> </component> <component> <observation moodCode="EVN" classCode="OBS"> <templateId root= "216.840.1.471301.10.20.22.4.2" /> <id nullFlavor="NA" /> < code codeSystem="local" code="770-8" displayName="Automated blood neutrophils/ 100 leukocytes" /> <statusCode code="completed" /> < effectiveTime value="050297259386" /> <value unit="%" xsi:type="PQ " value="58" /> <referenceRange> <observationRange> <text>42-75</text> </observationRange> </ referenceRange> </observation> </component> <component> <observation moodCode="EVN" classCode="OBS"> <templateId root= "216.840.1.318325...22.4.2" /> <id nullFlavor="NA" /> < code codeSystem="local" code="736-9" displayName="Automated blood lymphocytes/ 100 leukocytes" /> <statusCode code="completed" /> < effectiveTime value="784217595936" /> <value unit="%" xsi:type="PQ " value="27" /> <referenceRange> <observationRange> <text>12-44</text> </observationRange> </ referenceRange> </observation> </component> <component> <observation moodCode="EVN" classCode="OBS"> <templateId root= "2.16.840.1.023987....4.2" /> <id nullFlavor="NA" /> < code codeSystem="local" code="73101-5" displayName="Blood monocytes/100 leukocytes" /> <statusCode code="completed" /> <effectiveTime value="029558977464" /> <value unit="%" xsi:type="PQ" value="7" /> <referenceRange> <observationRange> <text>0-12 </text> </observationRange> </referenceRange> </ observation> </component> <component> <observation moodCode= "EVN" classCode="OBS"> <templateId root="2.16.840.1.042493.10..22.4.2 " /> <id nullFlavor="NA" /> <code codeSystem="local" code="713 -8" displayName="Automated blood eosinophils/100 leukocytes" /> < statusCode code="completed" /> <effectiveTime value="656329252599" /> <value unit="%" xsi:type="PQ" value="8" /> <referenceRange > <observationRange> <text>0-10</text> </ observationRange> </referenceRange> </observation> </ component> <component> <observation moodCode="EVN" classCode="OBS"> <templateId root="2.16.840.1.160507.10..22.4.2" /> <id nullFlavor="NA" /> <code codeSystem="local" code="706-2" displayName= "Automated blood basophils/100 leukocytes" /> <statusCode code= "completed" /> <effectiveTime value="336082953950" /> <value unit="%" xsi:type="PQ" value="1" /> <referenceRange> < observationRange> <text>0-10</text> </observationRange> </referenceRange> </observation> </component> < component> <observation moodCode="EVN" classCode="OBS"> < templateId root="2.16.840.1.436844.22.4.2" /> <id nullFlavor="NA " /> <code codeSystem="local" code="751-8" displayName="Blood neutrophils automated count (number/volume)" /> <statusCode code= "completed" /> <effectiveTime value="505171522963" /> <value unit="10*3" xsi:type="PQ" value="5.3" /> <referenceRange> < observationRange> <text>1.8-7.8</text> </ observationRange> </referenceRange> </observation> </ component> <component> <observation moodCode="EVN" classCode="OBS"> <templateId root="2.16.840.1.706448.10..22.4.2" /> <id nullFlavor="NA" /> <code codeSystem="local" code="731-0" displayName= "Blood lymphocytes automated count (number/volume)" /> <statusCode code ="completed" /> <effectiveTime value="032755172953" /> <value unit="10*3" xsi:type="PQ" value="2.4" /> <referenceRange> < observationRange> <text>1.0-4.0</text> </ observationRange> </referenceRange> </observation> </ component> <component> <observation moodCode="EVN" classCode="OBS"> <templateId root="11.30.840.1.217285.22.4.2" /> <id nullFlavor="NA" /> <code codeSystem="local" code="742-7" displayName= "Blood monocytes automated count (number/volume)" /> <statusCode code= "completed" /> <effectiveTime value="580853748275" /> <value unit="10*3" xsi:type="PQ" value="0.7" /> <referenceRange> < observationRange> <text>0.0-1.0</text> </ observationRange> </referenceRange> </observation> </ component> <component> <observation moodCode="EVN" classCode="OBS"> <templateId root="16.840.1.306990.08.03.22.4.2" /> <id nullFlavor="NA" /> <code codeSystem="local" code="711-2" displayName= "Automated eosinophil count" /> <statusCode code="completed" /> <effectiveTime value="583239197922" /> <value unit="10*3/uL" xsi: type="PQ" value="0.7" /> <interpretationCode codeSystem="local" code="* *" /> <referenceRange> <observationRange> <text >0.0-0.3</text> </observationRange> </referenceRange> </observation> </component> <component> <observation moodCode ="EVN" classCode="OBS"> <templateId root= "840.1.553764.10..22.4.2" /> <id nullFlavor="NA" /> < code codeSystem="local" code="704-7" displayName="Automated blood basophil count (count/volume)" /> <statusCode code="completed" /> < effectiveTime value="288832380023" /> <value unit="10*3/uL" xsi:type= "PQ" value="0.1" /> <referenceRange> <observationRange> <text>0.0-0.1</text> </observationRange> </ referenceRange> </observation> </component> </organizer> </entry > <entry> <organizer moodCode="EVN" classCode="BATTERY"> <templateId root="2.16.840.1.534432.10..22.4.1" /> <id nullFlavor="NA" /> <code codeSystem="local" code="46414-8" displayName="Comprehensive metabolic panel" / > <statusCode code="completed" /> <component> <observation moodCode="EVN" classCode="OBS"> <templateId root= "2.16.840.1.131716.10.20.22.4.2" /> <id nullFlavor="NA" /> < code codeSystem="local" code="2951-2" displayName="Serum or plasma sodium measurement (moles/volume)" /> <statusCode code="completed" /> <effectiveTime value="101420981844" /> <value unit="mmol/L" xsi:type= "PQ" value="139" /> <referenceRange> <observationRange> <text>135-145</text> </observationRange> </ referenceRange> </observation> </component> <component> <observation moodCode="EVN" classCode="OBS"> <templateId root= "2.16.840.1.297167.10.20.22.4.2" /> <id nullFlavor="NA" /> < code codeSystem="local" code="282-3" displayName="Serum or plasma potassium measurement (moles/volume)" /> <statusCode code="completed" /> <effectiveTime value="742675241034" /> <value unit="mmol/L" xsi:type= "PQ" value="3.9" /> <referenceRange> <observationRange> <text>3.6-5.0</text> </observationRange> </ referenceRange> </observation> </component> <component> <observation moodCode="EVN" classCode="OBS"> <templateId root= "16.840.1.879823.10.22.4.2" /> <id nullFlavor="NA" /> < code codeSystem="local" code="" displayName="Serum or plasma chloride measurement (moles/volume)" /> <statusCode code="completed" /> <effectiveTime value="675396538172" /> <value unit="mmol/L" xsi:type= "PQ" value="108" /> <interpretationCode codeSystem="local" code="" / > <referenceRange> <observationRange> <text>98- 107</text> </observationRange> </referenceRange> </ observation> </component> <component> <observation moodCode= "EVN" classCode="OBS"> <templateId root="11.30.840.1.425758.10..22.4.2 " /> <id nullFlavor="NA" /> <code codeSystem="local" code= "2028-06" displayName="Carbon dioxide" /> <statusCode code="completed" / > <effectiveTime value="813252269407" /> <value unit="mmol/L" xsi:type="PQ" value="17" /> <interpretationCode codeSystem="local" code ="" /> <referenceRange> <observationRange> < text>21-32</text> </observationRange> </referenceRange> </observation> </component> <component> <observation moodCode="EVN" classCode="OBS"> <templateId root= "2.16.840.1.772923.10.20.22.4.2" /> <id nullFlavor="NA" /> < code codeSystem="local" code="71491-3" displayName="Serum or plasma anion gap determination (moles/volume)" /> <statusCode code="completed" /> <effectiveTime value="162637393260" /> <value unit="mmol/L" xsi: type="PQ" value="14" /> <referenceRange> <observationRange> <text>5-14</text> </observationRange> </ referenceRange> </observation> </component> <component> <observation moodCode="EVN" classCode="OBS"> <templateId root= "216.840.1.095597.10..22.4.2" /> <id nullFlavor="NA" /> < code codeSystem="local" code="3094-0" displayName="Serum or plasma urea nitrogen measurement (mass/volume)" /> <statusCode code="completed" /> <effectiveTime value="151856808398" /> <value unit="mg/dL" xsi:type="PQ" value="10" /> <referenceRange> < observationRange> <text>7-18</text> </observationRange> </referenceRange> </observation> </component> < component> <observation moodCode="EVN" classCode="OBS"> < templateId root="2.16.840.1.368291.10.20.22.4.2" /> <id nullFlavor="NA " /> <code codeSystem="local" code="2160-0" displayName="Serum or plasma creatinine measurement (mass/volume)" /> <statusCode code= "completed" /> <effectiveTime value="732726728260" /> <value unit="mg/dL" xsi:type="PQ" value="0.72" /> <referenceRange> <observationRange> <text>0.60-1.30</text> </ observationRange> </referenceRange> </observation> </ component> <component> <observation moodCode="EVN" classCode="OBS"> <templateId root="2.16.840.1.524789.10.20.22.4.2" /> <id nullFlavor="NA" /> <code codeSystem="local" code="3097-3" displayName= "Serum or plasma urea nitrogen/creatinine mass ratio" /> <statusCode code="completed" /> <effectiveTime value="362551704846" /> < value unit="" xsi:type="PQ" value="14" /> <referenceRange> < observationRange> <text>NRG</text> </observationRange> </referenceRange> </observation> </component> < component> <observation moodCode="EVN" classCode="OBS"> < templateId root="2.16.840.1.819644.10.20.22.4.2" /> <id nullFlavor="NA " /> <code codeSystem="local" code="15870-0" displayName="Serum or plasma creatinine measurement with calculation of estimated glomerular filtration rate" /> <statusCode code="completed" /> < effectiveTime value="230829957693" /> <value unit="" xsi:type="PQ" value=">" /> <referenceRange> <observationRange> <text>NRG</text> </observationRange> </referenceRange > </observation> </component> <component> <observation moodCode="EVN" classCode="OBS"> <templateId root= "2.16.840.1.827817.10.20.22.4.2" /> <id nullFlavor="NA" /> < code codeSystem="local" code="2345-7" displayName="Serum or plasma glucose measurement (mass/volume)" /> <statusCode code="completed" /> <effectiveTime value="208245900163" /> <value unit="mg/dL" xsi:type="PQ " value="68" /> <interpretationCode codeSystem="local" code="" /> <referenceRange> <observationRange> <text>70-105< /text> </observationRange> </referenceRange> </ observation> </component> <component> <observation moodCode= "EVN" classCode="OBS"> <templateId root="216.840.1.461109.10..22.4.2 " /> <id nullFlavor="NA" /> <code codeSystem="local" code= "03090-4" displayName="Serum or plasma calcium measurement (mass/volume)" /> <statusCode code="completed" /> <effectiveTime value= "477537591312" /> <value unit="mg/dL" xsi:type="PQ" value="9.3" /> <referenceRange> <observationRange> <text>8.5-10.1 </text> </observationRange> </referenceRange> </ observation> </component> <component> <observation moodCode= "EVN" classCode="OBS"> <templateId root="2.16.840.1.948777.10..22.4.2 " /> <id nullFlavor="NA" /> <code codeSystem="local" code= "1975" displayName="Serum or plasma total bilirubin measurement (mass/volume) " /> <statusCode code="completed" /> <effectiveTime value= "857116142836" /> <value unit="mg/dL" xsi:type="PQ" value="0.3" /> <referenceRange> <observationRange> <text>0.1-1.0< /text> </observationRange> </referenceRange> </ observation> </component> <component> <observation moodCode= "EVN" classCode="OBS"> <templateId root="2.16.840.1.475830.10..22.4.2 " /> <id nullFlavor="NA" /> <code codeSystem="local" code= "6768-" displayName="Serum or plasma alkaline phosphatase measurement ( enzymatic activity/volume)" /> <statusCode code="completed" /> <effectiveTime value="054793395730" /> <value unit="U/L" xsi:type="PQ " value="74" /> <referenceRange> <observationRange> <text>40-136</text> </observationRange> </ referenceRange> </observation> </component> <component> <observation moodCode="EVN" classCode="OBS"> <templateId root= "2.16.840.1.632617.10...4.2" /> <id nullFlavor="NA" /> < code codeSystem="local" code="1920" displayName="Serum or plasma aspartate aminotransferase measurement (enzymatic activity/volume)" /> < statusCode code="completed" /> <effectiveTime value="664530795290" /> <value unit="U/L" xsi:type="PQ" value="14" /> <referenceRange > <observationRange> <text>5-34</text> </ observationRange> </referenceRange> </observation> </ component> <component> <observation moodCode="EVN" classCode="OBS"> <templateId root="2.16.840.1.047432.08.03.22.4.2" /> <id nullFlavor="NA" /> <code codeSystem="local" code="1742-6" displayName= "Serum or plasma alanine aminotransferase measurement (enzymatic activity/volume )" /> <statusCode code="completed" /> <effectiveTime value= "514762083044" /> <value unit="U/L" xsi:type="PQ" value="12" /> <referenceRange> <observationRange> <text>0-55</text > </observationRange> </referenceRange> </observation > </component> <component> <observation moodCode="EVN" classCode="OBS"> <templateId root="2.16.840.1.736249.08.03.22.4.2" /> <id nullFlavor="NA" /> <code codeSystem="local" code="2885-2" displayName="Serum or plasma protein measurement (mass/volume)" /> < statusCode code="completed" /> <effectiveTime value="238838793382" /> <value unit="g/dL" xsi:type="PQ" value="7.2" /> < referenceRange> <observationRange> <text>6.4-8.2</text> </observationRange> </referenceRange> </observation > </component> <component> <observation moodCode="EVN" classCode="OBS"> <templateId root="2.16.840.1.827128.08.03.22.4.2" /> <id nullFlavor="NA" /> <code codeSystem="local" code="1751-7" displayName="Serum or plasma albumin measurement (mass/volume)" /> < statusCode code="completed" /> <effectiveTime value="244050935012" /> <value unit="g/dL" xsi:type="PQ" value="4.3" /> < referenceRange> <observationRange> <text>3.2-4.5</text> </observationRange> </referenceRange> </observation > </component> </organizer> </entry> <entry> <organizer moodCode= "EVN" classCode="BATTERY"> <templateId root="216.840.1.230393.10..22.4.1 " /> <id nullFlavor="NA" /> <code codeSystem="local" code="4024-6" displayName="Serum or plasma salicylates measurement (mass/volume)" /> < statusCode code="completed" /> <component> <observation moodCode= "EVN" classCode="OBS"> <templateId root="216.840.1.558304.10..22.4.2 " /> <id nullFlavor="NA" /> <code codeSystem="local" code= "4024-6" displayName="Serum or plasma salicylates measurement (mass/volume)" /> <statusCode code="completed" /> <effectiveTime value= "335618304344" /> <value unit="mg/dL" xsi:type="PQ" value="<" /> <interpretationCode codeSystem="local" code="" /> < referenceRange> <observationRange> <text>5.0-20.0</text > </observationRange> </referenceRange> </observation > </component> </organizer> </entry> <entry> <organizer moodCode= "EVN" classCode="BATTERY"> <templateId root="216.840.1.544532.10..22.4.1 " /> <id nullFlavor="NA" /> <code codeSystem="local" code="3298-7" displayName="Serum or plasma acetaminophen measurement (mass/volume)" /> < statusCode code="completed" /> <component> <observation moodCode= "EVN" classCode="OBS"> <templateId root="2.16.840.1.739503.10.20.22.4.2 " /> <id nullFlavor="NA" /> <code codeSystem="local" code= "3298-7" displayName="Serum or plasma acetaminophen measurement (mass/volume)" / > <statusCode code="completed" /> <effectiveTime value= "901900799482" /> <value unit="ug/mL" xsi:type="PQ" value="<" /> <interpretationCode codeSystem="local" code="" /> < referenceRange> <observationRange> <text>10-30</text> </observationRange> </referenceRange> </observation> </component> </organizer> </entry> <entry> <organizer moodCode="EVN " classCode="BATTERY"> <templateId root="2.16.840.1.579045.10.20.22.4.1" / > <id nullFlavor="NA" /> <code codeSystem="local" code="5643-2" displayName="Serum or plasma ethanol measurement (mass/volume)" /> < statusCode code="completed" /> <component> <observation moodCode= "EVN" classCode="OBS"> <templateId root="2.16.840.1.116767.10.20.22.4.2 " /> <id nullFlavor="NA" /> <code codeSystem="local" code= "5643-2" displayName="Serum or plasma ethanol measurement (mass/volume)" /> <statusCode code="completed" /> <effectiveTime value= "116356526068" /> <value unit="mg/dL" xsi:type="PQ" value="<" /> <referenceRange> <observationRange> <text><10< /text> </observationRange> </referenceRange> </ observation> </component> </organizer> </entry> <entry> <organizer moodCode="EVN" classCode="BATTERY"> <templateId root= "216.840.1.360547.10..22.4.1" /> <id nullFlavor="NA" /> <code codeSystem="local" code="98575-4" displayName="Serum or plasma thyrotropin measurement by detection limit <=0.05 miu/l (units/volume)" /> < statusCode code="completed" /> <component> <observation moodCode= "EVN" classCode="OBS"> <templateId root="2.840.1.592678.10...4.2 " /> <id nullFlavor="NA" /> <code codeSystem="local" code= "02696-1" displayName="Serum or plasma thyrotropin measurement by detection limit <=0.05 miu/l (units/volume)" /> <statusCode code="completed" / > <effectiveTime value="388440219203" /> <value unit="u[iU]/mL " xsi:type="PQ" value="1.91" /> <referenceRange> < observationRange> <text>0.35-4.94</text> </ observationRange> </referenceRange> </observation> </ component> </organizer> </entry> <entry> <organizer moodCode="EVN" classCode="BATTERY"> <templateId root="11.30.840.1.250953.10..22.4.1" /> <id nullFlavor="NA" /> <code codeSystem="local" code="75674-0" displayName="Complete urinalysis with reflex to culture" /> <statusCode code="completed" /> <component> <observation moodCode="EVN" classCode="OBS"> <templateId root="16.840.1.088162.10..22.4.2" /> <id nullFlavor="NA" /> <code codeSystem="local" code="5778-6" displayName="Urine color determination" /> <statusCode code="completed " /> <effectiveTime value="" /> <value unit="" xsi :type="PQ" value="YELLOW" /> <referenceRange> < observationRange> <text>NRG</text> </observationRange> </referenceRange> </observation> </component> < component> <observation moodCode="EVN" classCode="OBS"> < templateId root="2.16.840.1.496045.10..22.4.2" /> <id nullFlavor="NA " /> <code codeSystem="local" code="43900-0" displayName="Urine clarity determination" /> <statusCode code="completed" /> < effectiveTime value="" /> <value unit="" xsi:type="PQ" value="SLIGHTLY CLOUDY" /> <referenceRange> < observationRange> <text>NRG</text> </observationRange> </referenceRange> </observation> </component> < component> <observation moodCode="EVN" classCode="OBS"> < templateId root="216.840.1.345826.10.20.22.4.2" /> <id nullFlavor="NA " /> <code codeSystem="local" code="5803-2" displayName="Urine pH measurement by test strip" /> <statusCode code="completed" /> <effectiveTime value="411759061579" /> <value unit="" xsi:type="PQ" value="6" /> <referenceRange> <observationRange> <text>5-9</text> </observationRange> </referenceRange> </observation> </component> <component> <observation moodCode="EVN" classCode="OBS"> <templateId root= "2.16.840.1.173118.10.20.22.4.2" /> <id nullFlavor="NA" /> < code codeSystem="local" code="5811-5" displayName="Specific gravity of urine by test strip" /> <statusCode code="completed" /> <effectiveTime value="" /> <value unit="" xsi:type="PQ" value="1.010" /> <interpretationCode codeSystem="local" code="" /> < referenceRange> <observationRange> <text>1.016-1.022</ text> </observationRange> </referenceRange> </ observation> </component> <component> <observation moodCode= "EVN" classCode="OBS"> <templateId root="11.30.840.1.448977.10..4.2 " /> <id nullFlavor="NA" /> <code codeSystem="local" code= "80169-7" displayName="Urine protein assay by test strip, semi-quantitative" /> <statusCode code="completed" /> <effectiveTime value= "" /> <value unit="" xsi:type="PQ" value="NEGATIVE" /> <referenceRange> <observationRange> <text>NEGATIVE </text> </observationRange> </referenceRange> </ observation> </component> <component> <observation moodCode= "EVN" classCode="OBS"> <templateId root="11.30.840.1.002566.10.20.22.4.2 " /> <id nullFlavor="NA" /> <code codeSystem="local" code= "91297-6" displayName="Urine glucose detection by automated test strip" /> <statusCode code="completed" /> <effectiveTime value=" " /> <value unit="" xsi:type="PQ" value="NEGATIVE" /> < referenceRange> <observationRange> <text>NEGATIVE</text > </observationRange> </referenceRange> </observation > </component> <component> <observation moodCode="EVN" classCode="OBS"> <templateId root="16.840.1.928239.10.22.4.2" /> <id nullFlavor="NA" /> <code codeSystem="local" code="59435-4 " displayName="Erythrocytes detection in urine sediment by light microscopy" /> <statusCode code="completed" /> <effectiveTime value= "372968204442" /> <value unit="" xsi:type="PQ" value="NEGATIVE" /> <referenceRange> <observationRange> <text>NEGATIVE </text> </observationRange> </referenceRange> </ observation> </component> <component> <observation moodCode= "EVN" classCode="OBS"> <templateId root="11.30.840.1.316038.10.4.2 " /> <id nullFlavor="NA" /> <code codeSystem="local" code= "46579-0" displayName="Urine ketones detection by automated test strip" /> <statusCode code="completed" /> <effectiveTime value="346809354705 " /> <value unit="" xsi:type="PQ" value="NEGATIVE" /> < referenceRange> <observationRange> <text>NEGATIVE</text > </observationRange> </referenceRange> </observation > </component> <component> <observation moodCode="EVN" classCode="OBS"> <templateId root="11.30.840.1.380545.1022.4.2" /> <id nullFlavor="NA" /> <code codeSystem="local" code="5802-4" displayName="Urine nitrite detection by test strip" /> <statusCode code ="completed" /> <effectiveTime value="521463415758" /> <value unit="" xsi:type="PQ" value="NEGATIVE" /> <referenceRange> < observationRange> <text>NEGATIVE</text> </ observationRange> </referenceRange> </observation> </ component> <component> <observation moodCode="EVN" classCode="OBS"> <templateId root="216.840.1.584406.10..22.4.2" /> <id nullFlavor="NA" /> <code codeSystem="local" code="5770-3" displayName= "Urine total bilirubin detection by test strip" /> <statusCode code= "completed" /> <effectiveTime value="" /> <value unit="" xsi:type="PQ" value="NEGATIVE" /> <referenceRange> < observationRange> <text>NEGATIVE</text> </ observationRange> </referenceRange> </observation> </ component> <component> <observation moodCode="EVN" classCode="OBS"> <templateId root="216.840.1.745041.10...4.2" /> <id nullFlavor="NA" /> <code codeSystem="local" code="95757-3" displayName= "Urine urobilinogen measurement by automated test strip (mass/volume)" /> <statusCode code="completed" /> <effectiveTime value="817842343305 " /> <value unit="" xsi:type="PQ" value="NORMAL" /> < referenceRange> <observationRange> <text>NORMAL</text> </observationRange> </referenceRange> </observation> </component> <component> <observation moodCode="EVN" classCode ="OBS"> <templateId root="216.840.1.495998.10..22.4.2" /> < id nullFlavor="NA" /> <code codeSystem="local" code="5799-2" displayName="Urine leukocyte esterase detection by dipstick" /> < statusCode code="completed" /> <effectiveTime value="649952176298" /> <value unit="" xsi:type="PQ" value="3+" /> < interpretationCode codeSystem="local" code="*" /> <referenceRange> <observationRange> <text>NEGATIVE</text> </ observationRange> </referenceRange> </observation> </ component> <component> <observation moodCode="EVN" classCode="OBS"> <templateId root="2.16.840.1.484714.10..22.4.2" /> <id nullFlavor="NA" /> <code codeSystem="local" code="33203-6" displayName= "Automated urine sediment erythrocyte count by microscopy (number/high power field)" /> <statusCode code="completed" /> <effectiveTime value="551693936719" /> <value unit="" xsi:type="PQ" value="NONE" /> <referenceRange> <observationRange> <text>NRG</ text> </observationRange> </referenceRange> </ observation> </component> <component> <observation moodCode= "EVN" classCode="OBS"> <templateId root="2.16.840.1.581772.10..22.4.2 " /> <id nullFlavor="NA" /> <code codeSystem="local" code= "5821-4" displayName="Automated urine sediment leukocyte count by microscopy ( number/high power field)" /> <statusCode code="completed" /> < effectiveTime value="" /> <value unit="[HPF]" xsi:type="PQ " value="" /> <interpretationCode codeSystem="local" code="*" /> <referenceRange> <observationRange> <text>NRG</text > </observationRange> </referenceRange> </observation > </component> <component> <observation moodCode="EVN" classCode="OBS"> <templateId root="216.840.1.434508.10..22.4.2" /> <id nullFlavor="NA" /> <code codeSystem="local" code="08010-0 " displayName="Bacteria detection in urine sediment by light microscopy" /> <statusCode code="completed" /> <effectiveTime value= "906889924093" /> <value unit="" xsi:type="PQ" value="TRACE" /> <referenceRange> <observationRange> <text>NRG</text> </observationRange> </referenceRange> </observation > </component> <component> <observation moodCode="EVN" classCode="OBS"> <templateId root="2.840.1.556588.10..4.2" /> <id nullFlavor="NA" /> <code codeSystem="local" code="11567-0 " displayName="Squamous epithelial cells detection in urine sediment by light microscopy" /> <statusCode code="completed" /> <effectiveTime value="870131242322" /> <value unit="" xsi:type="PQ" value="10-25" /> <interpretationCode codeSystem="local" code="*" /> < referenceRange> <observationRange> <text>NRG</text> </observationRange> </referenceRange> </observation> </component> <component> <observation moodCode="EVN" classCode= "OBS"> <templateId root="216.840.1.892025.10..22.4.2" /> < id nullFlavor="NA" /> <code codeSystem="local" code="99418-6" displayName="Crystals detection in urine sediment by light microscopy" /> <statusCode code="completed" /> <effectiveTime value="580443194294 " /> <value unit="" xsi:type="PQ" value="NONE" /> < referenceRange> <observationRange> <text>NRG</text> </observationRange> </referenceRange> </observation> </component> <component> <observation moodCode="EVN" classCode= "OBS"> <templateId root="16.840.1.527645.10.20.22.4.2" /> < id nullFlavor="NA" /> <code codeSystem="local" code="96964-8" displayName="Casts detection in urine sediment by light microscopy" /> <statusCode code="completed" /> <effectiveTime value="" /> <value unit="" xsi:type="PQ" value="NONE" /> <referenceRange > <observationRange> <text>NRG</text> </ observationRange> </referenceRange> </observation> </ component> <component> <observation moodCode="EVN" classCode="OBS"> <templateId root="11.30.840.1.251975.10.22.4.2" /> <id nullFlavor="NA" /> <code codeSystem="local" code="8247-9" displayName= "Mucus detection in urine sediment by light microscopy" /> <statusCode code="completed" /> <effectiveTime value="716020402624" /> < value unit="" xsi:type="PQ" value="NEGATIVE" /> <referenceRange> <observationRange> <text>NRG</text> </ observationRange> </referenceRange> </observation> </ component> <component> <observation moodCode="EVN" classCode="OBS"> <templateId root="16.840.1.732669.10.20.22.4.2" /> <id nullFlavor="NA" /> <code codeSystem="local" code="15070-2" displayName= "Complete urinalysis with reflex to culture" /> <statusCode code= "completed" /> <effectiveTime value="937026175251" /> <value unit="" xsi:type="PQ" value="YES" /> <referenceRange> < observationRange> <text>NRG</text> </observationRange> </referenceRange> </observation> </component> < component> <observation moodCode="EVN" classCode="OBS"> < templateId root="11.30.840.1.184312.10..22.4.2" /> <id nullFlavor="NA " /> <code codeSystem="local" code="10741-6" displayName="Urine Trichomonas species detection by light microscopy" /> <statusCode code= "completed" /> <effectiveTime value="759899587451" /> <value unit="" xsi:type="PQ" value="FEW" /> <interpretationCode codeSystem= "local" code="*" /> <referenceRange> <observationRange> <text>NRG</text> </observationRange> </ referenceRange> </observation> </component> </organizer> </entry > <entry> <organizer moodCode="EVN" classCode="BATTERY"> <templateId root="11.30.840.1.332343.10..22.4.1" /> <id nullFlavor="NA" /> <code codeSystem="local" code="2114-04" displayName="Urine beta human chorionic gonadotropin (hCG) measurement" /> <statusCode code="completed" /> < component> <observation moodCode="EVN" classCode="OBS"> < templateId root="16.840.1.423338.10.20.22.4.2" /> <id nullFlavor="NA " /> <code codeSystem="local" code="2114-04" displayName="Urine beta human chorionic gonadotropin (hCG) measurement" /> <statusCode code= "completed" /> <effectiveTime value="346690678325" /> <value unit="" xsi:type="PQ" value="NEGATIVE" /> <referenceRange> < observationRange> <text>NEGATIVE</text> </ observationRange> </referenceRange> </observation> </ component> </organizer> </entry> <entry> <organizer moodCode="EVN" classCode="BATTERY"> <templateId root="2.16.840.1.656948.10.20.22.4.1" /> <id nullFlavor="NA" /> <code codeSystem="local" code="82406-6" displayName="Urine drug screening test" /> <statusCode code="completed" /> <component> <observation moodCode="EVN" classCode="OBS"> < templateId root="2.16.840.1.033948.10.20.22.4.2" /> <id nullFlavor="NA " /> <code codeSystem="local" code="60412-8" displayName="Urine phencyclidine detection by screening method" /> <statusCode code= "completed" /> <effectiveTime value="545435546401" /> <value unit="" xsi:type="PQ" value="NEGATIVE" /> <referenceRange> < observationRange> <text>NEGATIVE</text> </ observationRange> </referenceRange> </observation> </ component> <component> <observation moodCode="EVN" classCode="OBS"> <templateId root="2.16.840.1.237128.10..22.4.2" /> <id nullFlavor="NA" /> <code codeSystem="local" code="23468-1" displayName= "Urine benzodiazepines detection by screening method" /> <statusCode code="completed" /> <effectiveTime value="171436622448" /> < value unit="" xsi:type="PQ" value="NEGATIVE" /> <referenceRange> <observationRange> <text>NEGATIVE</text> </ observationRange> </referenceRange> </observation> </ component> <component> <observation moodCode="EVN" classCode="OBS"> <templateId root="216.840.1.093322.10.2022.4.2" /> <id nullFlavor="NA" /> <code codeSystem="local" code="3397-7" displayName= "Urine cocaine detection" /> <statusCode code="completed" /> < effectiveTime value="" /> <value unit="" xsi:type="PQ" value="NEGATIVE" /> <referenceRange> <observationRange> <text>NEGATIVE</text> </observationRange> </ referenceRange> </observation> </component> <component> <observation moodCode="EVN" classCode="OBS"> <templateId root= "216.840.1.097051.10.22.4.2" /> <id nullFlavor="NA" /> < code codeSystem="local" code="68342-5" displayName="Urine amphetamines detection by screening method" /> <statusCode code="completed" /> <effectiveTime value="" /> <value unit="" xsi:type="PQ " value="NEGATIVE" /> <referenceRange> <observationRange> <text>NEGATIVE</text> </observationRange> </ referenceRange> </observation> </component> <component> <observation moodCode="EVN" classCode="OBS"> <templateId root= "216.840.1.257365.10.2022.4.2" /> <id nullFlavor="NA" /> < code codeSystem="local" code="75145-2" displayName="Urine methamphetamine detection by screening method" /> <statusCode code="completed" /> <effectiveTime value="075555336485" /> <value unit="" xsi:type="PQ " value="NEGATIVE" /> <referenceRange> <observationRange> <text>NEGATIVE</text> </observationRange> </ referenceRange> </observation> </component> <component> <observation moodCode="EVN" classCode="OBS"> <templateId root= "216.840.1.005998.10..22.4.2" /> <id nullFlavor="NA" /> < code codeSystem="local" code="59616-0" displayName="Urine cannabinoids detection by screening method" /> <statusCode code="completed" /> <effectiveTime value="075498700883" /> <value unit="" xsi:type="PQ " value="NEGATIVE" /> <referenceRange> <observationRange> <text>NEGATIVE</text> </observationRange> </ referenceRange> </observation> </component> <component> <observation moodCode="EVN" classCode="OBS"> <templateId root= "16.840.1.011457.10..22.4.2" /> <id nullFlavor="NA" /> < code codeSystem="local" code="61336-7" displayName="Urine opiates detection by screening method" /> <statusCode code="completed" /> < effectiveTime value="119054288620" /> <value unit="" xsi:type="PQ" value="NEGATIVE" /> <referenceRange> <observationRange> <text>NEGATIVE</text> </observationRange> </ referenceRange> </observation> </component> <component> <observation moodCode="EVN" classCode="OBS"> <templateId root= "216.840.1.647738.10..22.4.2" /> <id nullFlavor="NA" /> < code codeSystem="local" code="3377-9" displayName="Urine barbiturates detection " /> <statusCode code="completed" /> <effectiveTime value= "069883504053" /> <value unit="" xsi:type="PQ" value="NEGATIVE" /> <referenceRange> <observationRange> <text>NEGATIVE </text> </observationRange> </referenceRange> </ observation> </component> <component> <observation moodCode= "EVN" classCode="OBS"> <templateId root="2.16.840.1.358846.10..22.4.2 " /> <id nullFlavor="NA" /> <code codeSystem="local" code= "61334-2" displayName="Screening urine tricyclic antidepressants detection" /> <statusCode code="completed" /> <effectiveTime value= "238380675636" /> <value unit="" xsi:type="PQ" value="NEGATIVE" /> <referenceRange> <observationRange> <text>NEGATIVE </text> </observationRange> </referenceRange> </ observation> </component> <component> <observation moodCode= "EVN" classCode="OBS"> <templateId root="2.16.840.1.644436.10..22.4.2 " /> <id nullFlavor="NA" /> <code codeSystem="local" code= "43987-5" displayName="Urine methadone detection by screening method" /> <statusCode code="completed" /> <effectiveTime value="975707719392" /> <value unit="" xsi:type="PQ" value="NEGATIVE" /> < referenceRange> <observationRange> <text>NEGATIVE</text > </observationRange> </referenceRange> </observation > </component> <component> <observation moodCode="EVN" classCode="OBS"> <templateId root="11.30.840.1.779175.10.22.4.2" /> <id nullFlavor="NA" /> <code codeSystem="local" code="45061-0 " displayName="Urine oxycodone detection" /> <statusCode code= "completed" /> <effectiveTime value="452201759022" /> <value unit="" xsi:type="PQ" value="NEGATIVE" /> <referenceRange> < observationRange> <text>NEGATIVE</text> </ observationRange> </referenceRange> </observation> </ component> <component> <observation moodCode="EVN" classCode="OBS"> <templateId root="840.1.241318.08.03.22.4.2" /> <id nullFlavor="NA" /> <code codeSystem="local" code="73863-3" displayName= "Urine propoxyphene detection" /> <statusCode code="completed" /> <effectiveTime value="037913280393" /> <value unit="" xsi:type="PQ " value="NEGATIVE" /> <referenceRange> <observationRange> <text>NEGATIVE</text> </observationRange> </ referenceRange> </observation> </component> </organizer> </entry > <entry> <organizer moodCode="EVN" classCode="BATTERY"> <templateId root="11.30.840.1.393113.1022.4.1" /> <id nullFlavor="NA" /> <code codeSystem="local" code="630-4" displayName="Bacterial urine culture" /> < statusCode code="completed" /> <component> <observation moodCode= "EVN" classCode="OBS"> <templateId root="11.30.840.1.451053.10.2022.4.2 " /> <id nullFlavor="NA" /> <code codeSystem="local" code="630 -4" displayName="Bacterial urine culture" /> <statusCode code= "completed" /> <effectiveTime value="560925376958" /> <value unit="" xsi:type="PQ" value="SEE COMMEN" /> <referenceRange> <observationRange> <text>NRG</text> </observationRange > </referenceRange> </observation> </component> < component> <observation moodCode="EVN" classCode="OBS"> < templateId root="11.30.840.1.017225.10..22.4.2" /> <id nullFlavor="NA " /> <code codeSystem="local" code="CC" displayName="COLONY COUNT" /> <statusCode code="completed" /> <effectiveTime value= "677323706001" /> <value unit="" xsi:type="PQ" value="." /> < referenceRange> <observationRange> <text>NRG</text> </observationRange> </referenceRange> </observation> </component> </organizer> </entry> <entry> <organizer moodCode="EVN" classCode="BATTERY"> <templateId root="11.30.840.1.432302.10..22.4.1" /> <id nullFlavor="NA" /> <code codeSystem="local" code="93569-7" displayName="Methicillin resistant Staphylococcus aureus (MRSA) screening culture" /> <statusCode code="completed" /> <component> < observation moodCode="EVN" classCode="OBS"> <templateId root= "16.840.1.111883.10.22.4.2" /> <id nullFlavor="NA" /> < code codeSystem="local" code="50829-5" displayName="Methicillin resistant Staphylococcus aureus (MRSA) screening culture" /> <statusCode code= "completed" /> <effectiveTime value="853292514336" /> <value unit="" xsi:type="PQ" value="NEG" /> <referenceRange> < observationRange> <text>NRG</text> </observationRange> </referenceRange> </observation> </component> </ organizer> </entry> <entry> <organizer moodCode="EVN" classCode="BATTERY"> <templateId root="216.840.1.292752.10.20.22.4.1" /> <id nullFlavor= "NA" /> <code codeSystem="local" code="89908-4" displayName="Urine drug screening test" /> <statusCode code="completed" /> <component> <observation moodCode="EVN" classCode="OBS"> <templateId root= "216.840.1.774430.10..22.4.2" /> <id nullFlavor="NA" /> < code codeSystem="local" code="02634-2" displayName="Urine phencyclidine detection by screening method" /> <statusCode code="completed" /> <effectiveTime value="671638540979" /> <value unit="" xsi:type="PQ " value="NEGATIVE" /> <referenceRange> <observationRange> <text>NEGATIVE</text> </observationRange> </ referenceRange> </observation> </component> <component> <observation moodCode="EVN" classCode="OBS"> <templateId root= "216.840.1.084201.10.20.22.4.2" /> <id nullFlavor="NA" /> < code codeSystem="local" code="58689-8" displayName="Urine benzodiazepines detection by screening method" /> <statusCode code="completed" /> <effectiveTime value="892790719316" /> <value unit="" xsi:type="PQ " value="NEGATIVE" /> <referenceRange> <observationRange> <text>NEGATIVE</text> </observationRange> </ referenceRange> </observation> </component> <component> <observation moodCode="EVN" classCode="OBS"> <templateId root= "216.840.1.414180.10.20.22.4.2" /> <id nullFlavor="NA" /> < code codeSystem="local" code="3397-7" displayName="Urine cocaine detection" /> <statusCode code="completed" /> <effectiveTime value= "361119776261" /> <value unit="" xsi:type="PQ" value="NEGATIVE" /> <referenceRange> <observationRange> <text>NEGATIVE </text> </observationRange> </referenceRange> </ observation> </component> <component> <observation moodCode= "EVN" classCode="OBS"> <templateId root="16.840.1.010638.10.2022.4.2 " /> <id nullFlavor="NA" /> <code codeSystem="local" code= "35845-8" displayName="Urine amphetamines detection by screening method" /> <statusCode code="completed" /> <effectiveTime value= "671357415658" /> <value unit="" xsi:type="PQ" value="NEGATIVE" /> <referenceRange> <observationRange> <text>NEGATIVE </text> </observationRange> </referenceRange> </ observation> </component> <component> <observation moodCode= "EVN" classCode="OBS"> <templateId root="16.840.1.942890.10.2022.4.2 " /> <id nullFlavor="NA" /> <code codeSystem="local" code= "55013-2" displayName="Urine methamphetamine detection by screening method" /> <statusCode code="completed" /> <effectiveTime value= "" /> <value unit="" xsi:type="PQ" value="NEGATIVE" /> <referenceRange> <observationRange> <text>NEGATIVE </text> </observationRange> </referenceRange> </ observation> </component> <component> <observation moodCode= "EVN" classCode="OBS"> <templateId root="216.840.1.899523.10.22.4.2 " /> <id nullFlavor="NA" /> <code codeSystem="local" code= "68476-4" displayName="Urine cannabinoids detection by screening method" /> <statusCode code="completed" /> <effectiveTime value= "" /> <value unit="" xsi:type="PQ" value="NEGATIVE" /> <referenceRange> <observationRange> <text>NEGATIVE </text> </observationRange> </referenceRange> </ observation> </component> <component> <observation moodCode= "EVN" classCode="OBS"> <templateId root="11.30.840.1.598335.10.22.4.2 " /> <id nullFlavor="NA" /> <code codeSystem="local" code= "67492-7" displayName="Urine opiates detection by screening method" /> <statusCode code="completed" /> <effectiveTime value="" /> <value unit="" xsi:type="PQ" value="NEGATIVE" /> < referenceRange> <observationRange> <text>NEGATIVE</text > </observationRange> </referenceRange> </observation > </component> <component> <observation moodCode="EVN" classCode="OBS"> <templateId root="16.840.1.075761.10.20.22.4.2" /> <id nullFlavor="NA" /> <code codeSystem="local" code="3377-9" displayName="Urine barbiturates detection" /> <statusCode code= "completed" /> <effectiveTime value="" /> <value unit="" xsi:type="PQ" value="NEGATIVE" /> <referenceRange> < observationRange> <text>NEGATIVE</text> </ observationRange> </referenceRange> </observation> </ component> <component> <observation moodCode="EVN" classCode="OBS"> <templateId root="216.840.1.747029.10..4.2" /> <id nullFlavor="NA" /> <code codeSystem="local" code="78309-6" displayName= "Screening urine tricyclic antidepressants detection" /> <statusCode code="completed" /> <effectiveTime value="" /> < value unit="" xsi:type="PQ" value="NEGATIVE" /> <referenceRange> <observationRange> <text>NEGATIVE</text> </ observationRange> </referenceRange> </observation> </ component> <component> <observation moodCode="EVN" classCode="OBS"> <templateId root="16.840.1.386795.10..4.2" /> <id nullFlavor="NA" /> <code codeSystem="local" code="65324-2" displayName= "Urine methadone detection by screening method" /> <statusCode code= "completed" /> <effectiveTime value="" /> <value unit="" xsi:type="PQ" value="NEGATIVE" /> <referenceRange> < observationRange> <text>NEGATIVE</text> </ observationRange> </referenceRange> </observation> </ component> <component> <observation moodCode="EVN" classCode="OBS"> <templateId root="11.30.840.1.030988.08.03.22.4.2" /> <id nullFlavor="NA" /> <code codeSystem="local" code="24303-2" displayName= "Urine oxycodone detection" /> <statusCode code="completed" /> <effectiveTime value="" /> <value unit="" xsi:type="PQ" value="NEGATIVE" /> <referenceRange> <observationRange> <text>NEGATIVE</text> </observationRange> </ referenceRange> </observation> </component> <component> <observation moodCode="EVN" classCode="OBS"> <templateId root= "840.1.433952.08.03.22.4.2" /> <id nullFlavor="NA" /> < code codeSystem="local" code="83784-5" displayName="Urine propoxyphene detection " /> <statusCode code="completed" /> <effectiveTime value= "" /> <value unit="" xsi:type="PQ" value="NEGATIVE" /> <referenceRange> <observationRange> <text>NEGATIVE </text> </observationRange> </referenceRange> </ observation> </component> </organizer> </entry> <entry> <organizer moodCode="EVN" classCode="BATTERY"> <templateId root= "840.1.939627.08.03.22.4.1" /> <id nullFlavor="NA" /> <code codeSystem="local" code="94325-7" displayName="Complete urinalysis with reflex to culture" /> <statusCode code="completed" /> <component> < observation moodCode="EVN" classCode="OBS"> <templateId root= "11.30.840.1.147461.10.4.2" /> <id nullFlavor="NA" /> < code codeSystem="local" code="5778-6" displayName="Urine color determination" / > <statusCode code="completed" /> <effectiveTime value= "" /> <value unit="" xsi:type="PQ" value="YELLOW" /> <referenceRange> <observationRange> <text>NRG</text > </observationRange> </referenceRange> </observation > </component> <component> <observation moodCode="EVN" classCode="OBS"> <templateId root="216.840.1.232947.10.20.22.4.2" /> <id nullFlavor="NA" /> <code codeSystem="local" code="28976-8 " displayName="Urine clarity determination" /> <statusCode code= "completed" /> <effectiveTime value="" /> <value unit="" xsi:type="PQ" value="CLEAR" /> <referenceRange> < observationRange> <text>NRG</text> </observationRange> </referenceRange> </observation> </component> < component> <observation moodCode="EVN" classCode="OBS"> < templateId root="16.840.1.556591.10..22.4.2" /> <id nullFlavor="NA " /> <code codeSystem="local" code="5803-2" displayName="Urine pH measurement by test strip" /> <statusCode code="completed" /> <effectiveTime value="" /> <value unit="" xsi:type="PQ" value="8" /> <referenceRange> <observationRange> <text>5-9</text> </observationRange> </referenceRange> </observation> </component> <component> <observation moodCode="EVN" classCode="OBS"> <templateId root= "216.840.1.120308.10.204.2" /> <id nullFlavor="NA" /> < code codeSystem="local" code="5811-5" displayName="Specific gravity of urine by test strip" /> <statusCode code="completed" /> <effectiveTime value="" /> <value unit="" xsi:type="PQ" value="1.015" /> <interpretationCode codeSystem="local" code="" /> < referenceRange> <observationRange> <text>1.016-1.022</ text> </observationRange> </referenceRange> </ observation> </component> <component> <observation moodCode= "EVN" classCode="OBS"> <templateId root="216.840.1.680820.08.03.224.2 " /> <id nullFlavor="NA" /> <code codeSystem="local" code= "59930-5" displayName="Urine protein assay by test strip, semi-quantitative" /> <statusCode code="completed" /> <effectiveTime value= "" /> <value unit="" xsi:type="PQ" value="NEGATIVE" /> <referenceRange> <observationRange> <text>NEGATIVE </text> </observationRange> </referenceRange> </ observation> </component> <component> <observation moodCode= "EVN" classCode="OBS"> <templateId root="216.840.1.988968.08.03.22.4.2 " /> <id nullFlavor="NA" /> <code codeSystem="local" code= "90958-4" displayName="Urine glucose detection by automated test strip" /> <statusCode code="completed" /> <effectiveTime value=" " /> <value unit="" xsi:type="PQ" value="NEGATIVE" /> < referenceRange> <observationRange> <text>NEGATIVE</text > </observationRange> </referenceRange> </observation > </component> <component> <observation moodCode="EVN" classCode="OBS"> <templateId root="11.30.840.1.587493.10.22.4.2" /> <id nullFlavor="NA" /> <code codeSystem="local" code="81749-5 " displayName="Erythrocytes detection in urine sediment by light microscopy" /> <statusCode code="completed" /> <effectiveTime value= "" /> <value unit="" xsi:type="PQ" value="NEGATIVE" /> <referenceRange> <observationRange> <text>NEGATIVE </text> </observationRange> </referenceRange> </ observation> </component> <component> <observation moodCode= "EVN" classCode="OBS"> <templateId root="11.30.840.1.705898.08.03.22.4.2 " /> <id nullFlavor="NA" /> <code codeSystem="local" code= "12504-9" displayName="Urine ketones detection by automated test strip" /> <statusCode code="completed" /> <effectiveTime value=" " /> <value unit="" xsi:type="PQ" value="NEGATIVE" /> < referenceRange> <observationRange> <text>NEGATIVE</text > </observationRange> </referenceRange> </observation > </component> <component> <observation moodCode="EVN" classCode="OBS"> <templateId root="11.30.840.1.663715.10.22.4.2" /> <id nullFlavor="NA" /> <code codeSystem="local" code="5802-4" displayName="Urine nitrite detection by test strip" /> <statusCode code ="completed" /> <effectiveTime value="" /> <value unit="" xsi:type="PQ" value="NEGATIVE" /> <referenceRange> < observationRange> <text>NEGATIVE</text> </ observationRange> </referenceRange> </observation> </ component> <component> <observation moodCode="EVN" classCode="OBS"> <templateId root="16.840.1.075911.10.20.22.4.2" /> <id nullFlavor="NA" /> <code codeSystem="local" code="5770-3" displayName= "Urine total bilirubin detection by test strip" /> <statusCode code= "completed" /> <effectiveTime value="351235971714" /> <value unit="" xsi:type="PQ" value="NEGATIVE" /> <referenceRange> < observationRange> <text>NEGATIVE</text> </ observationRange> </referenceRange> </observation> </ component> <component> <observation moodCode="EVN" classCode="OBS"> <templateId root="11.30.840.1.445449.10..4.2" /> <id nullFlavor="NA" /> <code codeSystem="local" code="33173-5" displayName= "Urine urobilinogen measurement by automated test strip (mass/volume)" /> <statusCode code="completed" /> <effectiveTime value="547033370205 " /> <value unit="" xsi:type="PQ" value="NORMAL" /> < referenceRange> <observationRange> <text>NORMAL</text> </observationRange> </referenceRange> </observation> </component> <component> <observation moodCode="EVN" classCode ="OBS"> <templateId root="11.30.840.1.340336.10.20.22.4.2" /> < id nullFlavor="NA" /> <code codeSystem="local" code="5799-2" displayName="Urine leukocyte esterase detection by dipstick" /> < statusCode code="completed" /> <effectiveTime value="200234255336" /> <value unit="" xsi:type="PQ" value="1+" /> < interpretationCode codeSystem="local" code="*" /> <referenceRange> <observationRange> <text>NEGATIVE</text> </ observationRange> </referenceRange> </observation> </ component> <component> <observation moodCode="EVN" classCode="OBS"> <templateId root="216.840.1.417624.10.20.22.4.2" /> <id nullFlavor="NA" /> <code codeSystem="local" code="94790-9" displayName= "Automated urine sediment erythrocyte count by microscopy (number/high power field)" /> <statusCode code="completed" /> <effectiveTime value="052608755250" /> <value unit="" xsi:type="PQ" value="NONE" /> <referenceRange> <observationRange> <text>NRG</ text> </observationRange> </referenceRange> </ observation> </component> <component> <observation moodCode= "EVN" classCode="OBS"> <templateId root="16.840.1.894233.10.20.22.4.2 " /> <id nullFlavor="NA" /> <code codeSystem="local" code= "5821-4" displayName="Automated urine sediment leukocyte count by microscopy ( number/high power field)" /> <statusCode code="completed" /> < effectiveTime value="479716008951" /> <value unit="[HPF]" xsi:type="PQ " value="" /> <referenceRange> <observationRange> <text>NRG</text> </observationRange> </referenceRange> </observation> </component> <component> <observation moodCode="EVN" classCode="OBS"> <templateId root= "11.30.840.1.694391.10.20.22.4.2" /> <id nullFlavor="NA" /> < code codeSystem="local" code="42319-9" displayName="Bacteria detection in urine sediment by light microscopy" /> <statusCode code="completed" /> <effectiveTime value="" /> <value unit="" xsi:type="PQ " value="TRACE" /> <referenceRange> <observationRange> <text>NRG</text> </observationRange> </ referenceRange> </observation> </component> <component> <observation moodCode="EVN" classCode="OBS"> <templateId root= "16.840.1.844721.10.22.4.2" /> <id nullFlavor="NA" /> < code codeSystem="local" code="36189-4" displayName="Squamous epithelial cells detection in urine sediment by light microscopy" /> <statusCode code= "completed" /> <effectiveTime value="" /> <value unit="" xsi:type="PQ" value="10-" /> <interpretationCode codeSystem= "local" code="*" /> <referenceRange> <observationRange> <text>NRG</text> </observationRange> </ referenceRange> </observation> </component> <component> <observation moodCode="EVN" classCode="OBS"> <templateId root= "16.840.1.113676.10.2022.4.2" /> <id nullFlavor="NA" /> < code codeSystem="local" code="24984-9" displayName="Crystals detection in urine sediment by light microscopy" /> <statusCode code="completed" /> <effectiveTime value="146795792241" /> <value unit="" xsi:type="PQ " value="NONE" /> <referenceRange> <observationRange> <text>NRG</text> </observationRange> </ referenceRange> </observation> </component> <component> <observation moodCode="EVN" classCode="OBS"> <templateId root= "216.840.1.959313.10..22.4.2" /> <id nullFlavor="NA" /> < code codeSystem="local" code="14483-4" displayName="Casts detection in urine sediment by light microscopy" /> <statusCode code="completed" /> <effectiveTime value="" /> <value unit="" xsi:type="PQ " value="NONE" /> <referenceRange> <observationRange> <text>NRG</text> </observationRange> </ referenceRange> </observation> </component> <component> <observation moodCode="EVN" classCode="OBS"> <templateId root= "11.30.840.1.535587.10..4.2" /> <id nullFlavor="NA" /> < code codeSystem="local" code="8247-9" displayName="Mucus detection in urine sediment by light microscopy" /> <statusCode code="completed" /> <effectiveTime value="" /> <value unit="" xsi:type="PQ " value="NEGATIVE" /> <referenceRange> <observationRange> <text>NRG</text> </observationRange> </ referenceRange> </observation> </component> <component> <observation moodCode="EVN" classCode="OBS"> <templateId root= "11.30.840.1.474020.10.22.4.2" /> <id nullFlavor="NA" /> < code codeSystem="local" code="46047-8" displayName="Complete urinalysis with reflex to culture" /> <statusCode code="completed" /> < effectiveTime value="" /> <value unit="" xsi:type="PQ" value="NO" /> <referenceRange> <observationRange> <text>NRG</text> </observationRange> </referenceRange> </observation> </component> <component> <observation moodCode="EVN" classCode="OBS"> <templateId root= "216.840.1.571935.10..4.2" /> <id nullFlavor="NA" /> < code codeSystem="local" code="72069-0" displayName="Renal epithelial cells detection in urine sediment by light microscopy" /> <statusCode code= "completed" /> <effectiveTime value="" /> <value unit="" xsi:type="PQ" value="NONE" /> <referenceRange> < observationRange> <text>NRG</text> </observationRange> </referenceRange> </observation> </component> </ organizer> </entry> <entry> <organizer moodCode="EVN" classCode="BATTERY"> <templateId root="16.840.1.563983.10..4.1" /> <id nullFlavor= "NA" /> <code codeSystem="local" code="16800-6" displayName="Complete blood count (CBC) with automated white blood cell (WBC) differential" /> < statusCode code="completed" /> <component> <observation moodCode= "EVN" classCode="OBS"> <templateId root="216.840.1.265308.10...4.2 " /> <id nullFlavor="NA" /> <code codeSystem="local" code= "6690-2" displayName="Blood leukocytes automated count (number/volume)" /> <statusCode code="completed" /> <effectiveTime value="425204109453 " /> <value unit="10*3/uL" xsi:type="PQ" value="8.2" /> < referenceRange> <observationRange> <text>4.3-11.0</text > </observationRange> </referenceRange> </observation > </component> <component> <observation moodCode="EVN" classCode="OBS"> <templateId root="216.840.1.078273.10.20.22.4.2" /> <id nullFlavor="NA" /> <code codeSystem="local" code="789-8" displayName="Blood erythrocytes automated count (number/volume)" /> < statusCode code="completed" /> <effectiveTime value="562248402722" /> <value unit="10*6/uL" xsi:type="PQ" value="4.30" /> < interpretationCode codeSystem="local" code="" /> <referenceRange> <observationRange> <text>4.35-5.85</text> </ observationRange> </referenceRange> </observation> </ component> <component> <observation moodCode="EVN" classCode="OBS"> <templateId root="216.840.1.029231.10..22.4.2" /> <id nullFlavor="NA" /> <code codeSystem="local" code="66510-1" displayName= "Venous blood hemoglobin measurement (mass/volume)" /> <statusCode code ="completed" /> <effectiveTime value="393124497491" /> <value unit="g/dL" xsi:type="PQ" value="13.9" /> <referenceRange> < observationRange> <text>11.5-16.0</text> </ observationRange> </referenceRange> </observation> </ component> <component> <observation moodCode="EVN" classCode="OBS"> <templateId root="216.840.1.984634.10..22.4.2" /> <id nullFlavor="NA" /> <code codeSystem="local" code="53188-6" displayName= "Blood hematocrit (volume fraction)" /> <statusCode code="completed" / > <effectiveTime value="716091648500" /> <value unit="%" xsi:type="PQ" value="40" /> <referenceRange> < observationRange> <text>35-52</text> </observationRange > </referenceRange> </observation> </component> < component> <observation moodCode="EVN" classCode="OBS"> < templateId root="2.16.840.1.057281.10..22.4.2" /> <id nullFlavor="NA " /> <code codeSystem="local" code="787-2" displayName="Automated erythrocyte mean corpuscular volume" /> <statusCode code="completed" / > <effectiveTime value="116409988712" /> <value unit="[foz_us] " xsi:type="PQ" value="93" /> <referenceRange> < observationRange> <text>80-99</text> </observationRange > </referenceRange> </observation> </component> < component> <observation moodCode="EVN" classCode="OBS"> < templateId root="216.840.1.098240.10..22.4.2" /> <id nullFlavor="NA " /> <code codeSystem="local" code="785-6" displayName="Automated erythrocyte mean corpuscular hemoglobin (mass per erythrocyte)" /> < statusCode code="completed" /> <effectiveTime value="713360385489" /> <value unit="pg" xsi:type="PQ" value="32" /> <referenceRange> <observationRange> <text>25-34</text> </ observationRange> </referenceRange> </observation> </ component> <component> <observation moodCode="EVN" classCode="OBS"> <templateId root="216.840.1.735810.10.20.22.4.2" /> <id nullFlavor="NA" /> <code codeSystem="local" code="786-4" displayName= "Automated erythrocyte mean corpuscular hemoglobin concentration measurement ( mass/volume)" /> <statusCode code="completed" /> < effectiveTime value="726373201788" /> <value unit="g/dL" xsi:type="PQ" value="35" /> <referenceRange> <observationRange> <text>32-36</text> </observationRange> </referenceRange > </observation> </component> <component> <observation moodCode="EVN" classCode="OBS"> <templateId root= "216.840.1.615388.10..4.2" /> <id nullFlavor="NA" /> < code codeSystem="local" code="788-0" displayName="Automated erythrocyte distribution width ratio" /> <statusCode code="completed" /> < effectiveTime value="321536680200" /> <value unit="%" xsi:type="PQ " value="12.7" /> <referenceRange> <observationRange> <text>10.0-14.5</text> </observationRange> </ referenceRange> </observation> </component> <component> <observation moodCode="EVN" classCode="OBS"> <templateId root= "216.840.1.348039.10.20.22.4.2" /> <id nullFlavor="NA" /> < code codeSystem="local" code="777-3" displayName="Automated blood platelet count (count/volume)" /> <statusCode code="completed" /> < effectiveTime value="519199636419" /> <value unit="10*3/uL" xsi:type= "PQ" value="215" /> <referenceRange> <observationRange> <text>130-400</text> </observationRange> </ referenceRange> </observation> </component> <component> <observation moodCode="EVN" classCode="OBS"> <templateId root= "2.16.840.1.880307.10.20.22.4.2" /> <id nullFlavor="NA" /> < code codeSystem="local" code="71838-8" displayName="Automated blood platelet mean volume measurement" /> <statusCode code="completed" /> < effectiveTime value="319062475080" /> <value unit="[foz_us]" xsi:type= "PQ" value="9.9" /> <referenceRange> <observationRange> <text>7.4-10.4</text> </observationRange> </ referenceRange> </observation> </component> <component> <observation moodCode="EVN" classCode="OBS"> <templateId root= "2.16.840.1.985235.10.20.22.4.2" /> <id nullFlavor="NA" /> < code codeSystem="local" code="770-8" displayName="Automated blood neutrophils/ 100 leukocytes" /> <statusCode code="completed" /> < effectiveTime value="992787148977" /> <value unit="%" xsi:type="PQ " value="78" /> <interpretationCode codeSystem="local" code="" /> <referenceRange> <observationRange> <text>42-75</ text> </observationRange> </referenceRange> </ observation> </component> <component> <observation moodCode= "EVN" classCode="OBS"> <templateId root="2.16.840.1.381014.10.20.22.4.2 " /> <id nullFlavor="NA" /> <code codeSystem="local" code="736 -9" displayName="Automated blood lymphocytes/100 leukocytes" /> < statusCode code="completed" /> <effectiveTime value="730995939271" /> <value unit="%" xsi:type="PQ" value="11" /> < interpretationCode codeSystem="local" code="" /> <referenceRange> <observationRange> <text>12-44</text> </ observationRange> </referenceRange> </observation> </ component> <component> <observation moodCode="EVN" classCode="OBS"> <templateId root="216.840.1.211936.10.22.4.2" /> <id nullFlavor="NA" /> <code codeSystem="local" code="37953-8" displayName= "Blood monocytes/100 leukocytes" /> <statusCode code="completed" /> <effectiveTime value="389372980818" /> <value unit="%" xsi: type="PQ" value="5" /> <referenceRange> <observationRange> <text>0-12</text> </observationRange> </ referenceRange> </observation> </component> <component> <observation moodCode="EVN" classCode="OBS"> <templateId root= "216.840.1.966714.10.20.22.4.2" /> <id nullFlavor="NA" /> < code codeSystem="local" code="713-8" displayName="Automated blood eosinophils/ 100 leukocytes" /> <statusCode code="completed" /> < effectiveTime value="375968179390" /> <value unit="%" xsi:type="PQ " value="6" /> <referenceRange> <observationRange> <text>0-10</text> </observationRange> </referenceRange > </observation> </component> <component> <observation moodCode="EVN" classCode="OBS"> <templateId root= "216.840.1.565788.10.20.22.4.2" /> <id nullFlavor="NA" /> < code codeSystem="local" code="706-2" displayName="Automated blood basophils/100 leukocytes" /> <statusCode code="completed" /> <effectiveTime value="734093072952" /> <value unit="%" xsi:type="PQ" value="0" /> <referenceRange> <observationRange> <text>0-10 </text> </observationRange> </referenceRange> </ observation> </component> <component> <observation moodCode= "EVN" classCode="OBS"> <templateId root="11.30.840.1.400810.10.20.22.4.2 " /> <id nullFlavor="NA" /> <code codeSystem="local" code="751 -8" displayName="Blood neutrophils automated count (number/volume)" /> <statusCode code="completed" /> <effectiveTime value="704669485205" /> <value unit="10*3" xsi:type="PQ" value="6.4" /> < referenceRange> <observationRange> <text>1.8-7.8</text> </observationRange> </referenceRange> </observation > </component> <component> <observation moodCode="EVN" classCode="OBS"> <templateId root="16.840.1.876055.10.20.22.4.2" /> <id nullFlavor="NA" /> <code codeSystem="local" code="731-0" displayName="Blood lymphocytes automated count (number/volume)" /> < statusCode code="completed" /> <effectiveTime value="129595459529" /> <value unit="10*3" xsi:type="PQ" value="0.9" /> < interpretationCode codeSystem="local" code="" /> <referenceRange> <observationRange> <text>1.0-4.0</text> </ observationRange> </referenceRange> </observation> </ component> <component> <observation moodCode="EVN" classCode="OBS"> <templateId root="2.16.840.1.389772.10...4.2" /> <id nullFlavor="NA" /> <code codeSystem="local" code="742-7" displayName= "Blood monocytes automated count (number/volume)" /> <statusCode code= "completed" /> <effectiveTime value="" /> <value unit="10*3" xsi:type="PQ" value="0.4" /> <referenceRange> < observationRange> <text>0.0-1.0</text> </ observationRange> </referenceRange> </observation> </ component> <component> <observation moodCode="EVN" classCode="OBS"> <templateId root="2.16.840.1.058270.10.20.22.4.2" /> <id nullFlavor="NA" /> <code codeSystem="local" code="711-2" displayName= "Automated eosinophil count" /> <statusCode code="completed" /> <effectiveTime value="903095748557" /> <value unit="10*3/uL" xsi: type="PQ" value="0.5" /> <interpretationCode codeSystem="local" code="* *" /> <referenceRange> <observationRange> <text >0.0-0.3</text> </observationRange> </referenceRange> </observation> </component> <component> <observation moodCode ="EVN" classCode="OBS"> <templateId root= "216.840.1.205332.10..22.4.2" /> <id nullFlavor="NA" /> < code codeSystem="local" code="704-7" displayName="Automated blood basophil count (count/volume)" /> <statusCode code="completed" /> < effectiveTime value="822292469368" /> <value unit="10*3/uL" xsi:type= "PQ" value="0.0" /> <referenceRange> <observationRange> <text>0.0-0.1</text> </observationRange> </ referenceRange> </observation> </component> </organizer> </entry > <entry> <organizer moodCode="EVN" classCode="BATTERY"> <templateId root="216.840.1.398670.10..22.4.1" /> <id nullFlavor="NA" /> <code codeSystem="local" code="24875-0" displayName="Comprehensive metabolic panel" / > <statusCode code="completed" /> <component> <observation moodCode="EVN" classCode="OBS"> <templateId root= "216.840.1.631379.10.20.22.4.2" /> <id nullFlavor="NA" /> < code codeSystem="local" code="2951-2" displayName="Serum or plasma sodium measurement (moles/volume)" /> <statusCode code="completed" /> <effectiveTime value="652065617179" /> <value unit="mmol/L" xsi:type= "PQ" value="135" /> <referenceRange> <observationRange> <text>135-145</text> </observationRange> </ referenceRange> </observation> </component> <component> <observation moodCode="EVN" classCode="OBS"> <templateId root= "2.16.840.1.601074.10.20.22.4.2" /> <id nullFlavor="NA" /> < code codeSystem="local" code="28212-15" displayName="Serum or plasma potassium measurement (moles/volume)" /> <statusCode code="completed" /> <effectiveTime value="664970782227" /> <value unit="mmol/L" xsi:type= "PQ" value="3.7" /> <referenceRange> <observationRange> <text>3.6-5.0</text> </observationRange> </ referenceRange> </observation> </component> <component> <observation moodCode="EVN" classCode="OBS"> <templateId root= "216.840.1.247657.10.22.4.2" /> <id nullFlavor="NA" /> < code codeSystem="local" code="" displayName="Serum or plasma chloride measurement (moles/volume)" /> <statusCode code="completed" /> <effectiveTime value="311824905343" /> <value unit="mmol/L" xsi:type= "PQ" value="107" /> <referenceRange> <observationRange> <text>98-107</text> </observationRange> </ referenceRange> </observation> </component> <component> <observation moodCode="EVN" classCode="OBS"> <templateId root= "2.16.840.1.496827.10.20.22.4.2" /> <id nullFlavor="NA" /> < code codeSystem="local" code="2028-06" displayName="Carbon dioxide" /> < statusCode code="completed" /> <effectiveTime value="030271227338" /> <value unit="mmol/L" xsi:type="PQ" value="23" /> < referenceRange> <observationRange> <text>21-32</text> </observationRange> </referenceRange> </observation> </component> <component> <observation moodCode="EVN" classCode= "OBS"> <templateId root="2.16.840.1.175591.10..22.4.2" /> < id nullFlavor="NA" /> <code codeSystem="local" code="38141-0" displayName="Serum or plasma anion gap determination (moles/volume)" /> <statusCode code="completed" /> <effectiveTime value="532834408638" / > <value unit="mmol/L" xsi:type="PQ" value="5" /> < referenceRange> <observationRange> <text>5-14</text> </observationRange> </referenceRange> </observation> </component> <component> <observation moodCode="EVN" classCode= "OBS"> <templateId root="2.16.840.1.061932.10..22.4.2" /> < id nullFlavor="NA" /> <code codeSystem="local" code="3094-0" displayName="Serum or plasma urea nitrogen measurement (mass/volume)" /> <statusCode code="completed" /> <effectiveTime value="507667065293" /> <value unit="mg/dL" xsi:type="PQ" value="5" /> < interpretationCode codeSystem="local" code="" /> <referenceRange> <observationRange> <text>7-18</text> </ observationRange> </referenceRange> </observation> </ component> <component> <observation moodCode="EVN" classCode="OBS"> <templateId root="216.840.1.174168.10..22.4.2" /> <id nullFlavor="NA" /> <code codeSystem="local" code="2160-0" displayName= "Serum or plasma creatinine measurement (mass/volume)" /> <statusCode code="completed" /> <effectiveTime value="610004732204" /> < value unit="mg/dL" xsi:type="PQ" value="0.61" /> <referenceRange> <observationRange> <text>0.60-1.30</text> </ observationRange> </referenceRange> </observation> </ component> <component> <observation moodCode="EVN" classCode="OBS"> <templateId root="216.840.1.260624.10...4.2" /> <id nullFlavor="NA" /> <code codeSystem="local" code="3097-3" displayName= "Serum or plasma urea nitrogen/creatinine mass ratio" /> <statusCode code="completed" /> <effectiveTime value="984452847291" /> < value unit="" xsi:type="PQ" value="8" /> <referenceRange> < observationRange> <text>NRG</text> </observationRange> </referenceRange> </observation> </component> < component> <observation moodCode="EVN" classCode="OBS"> < templateId root="16.840.1.222722.10.20.22.4.2" /> <id nullFlavor="NA " /> <code codeSystem="local" code="39988-9" displayName="Serum or plasma creatinine measurement with calculation of estimated glomerular filtration rate" /> <statusCode code="completed" /> < effectiveTime value="178426950565" /> <value unit="" xsi:type="PQ" value=">" /> <referenceRange> <observationRange> <text>NRG</text> </observationRange> </referenceRange > </observation> </component> <component> <observation moodCode="EVN" classCode="OBS"> <templateId root= "216.840.1.244536.10.20.22.4.2" /> <id nullFlavor="NA" /> < code codeSystem="local" code="2345-7" displayName="Serum or plasma glucose measurement (mass/volume)" /> <statusCode code="completed" /> <effectiveTime value="617653492471" /> <value unit="mg/dL" xsi:type="PQ " value="88" /> <referenceRange> <observationRange> <text>70-105</text> </observationRange> </ referenceRange> </observation> </component> <component> <observation moodCode="EVN" classCode="OBS"> <templateId root= "11.30.840.1.933844.10...4.2" /> <id nullFlavor="NA" /> < code codeSystem="local" code="60095-3" displayName="Serum or plasma calcium measurement (mass/volume)" /> <statusCode code="completed" /> <effectiveTime value="346301858172" /> <value unit="mg/dL" xsi:type="PQ " value="8.5" /> <referenceRange> <observationRange> <text>8.5-10.1</text> </observationRange> </ referenceRange> </observation> </component> <component> <observation moodCode="EVN" classCode="OBS"> <templateId root= "16.840.1.409219.10.20.22.4.2" /> <id nullFlavor="NA" /> < code codeSystem="local" code="1974-11" displayName="Serum or plasma total bilirubin measurement (mass/volume)" /> <statusCode code="completed" / > <effectiveTime value="424006660959" /> <value unit="mg/dL" xsi:type="PQ" value="0.5" /> <referenceRange> < observationRange> <text>0.1-1.0</text> </ observationRange> </referenceRange> </observation> </ component> <component> <observation moodCode="EVN" classCode="OBS"> <templateId root="2.16.840.1.699456.10.20.22.4.2" /> <id nullFlavor="NA" /> <code codeSystem="local" code="6768-6" displayName= "Serum or plasma alkaline phosphatase measurement (enzymatic activity/volume)" / > <statusCode code="completed" /> <effectiveTime value= "440629641243" /> <value unit="U/L" xsi:type="PQ" value="48" /> <referenceRange> <observationRange> <text>40-136</ text> </observationRange> </referenceRange> </ observation> </component> <component> <observation moodCode= "EVN" classCode="OBS"> <templateId root="2.16.840.1.895542.10.20.22.4.2 " /> <id nullFlavor="NA" /> <code codeSystem="local" code= "19208" displayName="Serum or plasma aspartate aminotransferase measurement ( enzymatic activity/volume)" /> <statusCode code="completed" /> <effectiveTime value="877924447124" /> <value unit="U/L" xsi:type="PQ " value="14" /> <referenceRange> <observationRange> <text>5-34</text> </observationRange> </referenceRange > </observation> </component> <component> <observation moodCode="EVN" classCode="OBS"> <templateId root= "11.30.840.1.006873.10.20.22.4.2" /> <id nullFlavor="NA" /> < code codeSystem="local" code="1742-6" displayName="Serum or plasma alanine aminotransferase measurement (enzymatic activity/volume)" /> < statusCode code="completed" /> <effectiveTime value="941213736266" /> <value unit="U/L" xsi:type="PQ" value="10" /> <referenceRange > <observationRange> <text>0-55</text> </ observationRange> </referenceRange> </observation> </ component> <component> <observation moodCode="EVN" classCode="OBS"> <templateId root="2.16.840.1.282576.10.20.22.4.2" /> <id nullFlavor="NA" /> <code codeSystem="local" code="2885-2" displayName= "Serum or plasma protein measurement (mass/volume)" /> <statusCode code ="completed" /> <effectiveTime value="886845175362" /> <value unit="g/dL" xsi:type="PQ" value="6.5" /> <referenceRange> < observationRange> <text>6.4-8.2</text> </ observationRange> </referenceRange> </observation> </ component> <component> <observation moodCode="EVN" classCode="OBS"> <templateId root="2.16.840.1.765679.10.20.22.4.2" /> <id nullFlavor="NA" /> <code codeSystem="local" code="1751-7" displayName= "Serum or plasma albumin measurement (mass/volume)" /> <statusCode code ="completed" /> <effectiveTime value="360715730720" /> <value unit="g/dL" xsi:type="PQ" value="4.0" /> <referenceRange> < observationRange> <text>3.2-4.5</text> </ observationRange> </referenceRange> </observation> </ component> <component> <observation moodCode="EVN" classCode="OBS"> <templateId root="2.16.840.1.911366.10.20.22.4.2" /> <id nullFlavor="NA" /> <code codeSystem="local" code="CALCIUMCORR" displayName="CALCIUM CORRECTED" /> <statusCode code="completed" /> <effectiveTime value="" /> <value unit="mg/dL" xsi: type="PQ" value="8.5" /> <referenceRange> <observationRange > <text>8.5-10.1</text> </observationRange> </ referenceRange> </observation> </component> </organizer> </entry > <entry> <organizer moodCode="EVN" classCode="BATTERY"> <templateId root="2.16.840.1.136340.10.20.22.4.1" /> <id nullFlavor="NA" /> <code codeSystem="local" code="38545-0" displayName="Serum or plasma choriogonadotropin measurement (units/volume)" /> <statusCode code= "completed" /> <component> <observation moodCode="EVN" classCode= "OBS"> <templateId root="2.16.840.1.405409.10.20.22.4.2" /> < id nullFlavor="NA" /> <code codeSystem="local" code="83752-5" displayName="Serum or plasma choriogonadotropin measurement (units/volume)" /> <statusCode code="completed" /> <effectiveTime value= "256111505666" /> <value unit="m[iU]/mL" xsi:type="PQ" value="69247" / > <interpretationCode codeSystem="local" code="" /> < referenceRange> <observationRange> <text><5</text> </observationRange> </referenceRange> </observation> </component> </organizer> </entry> <entry> <organizer moodCode="EVN " classCode="BATTERY"> <templateId root="216.840.1.512842.10.20.22.4.1" / > <id nullFlavor="NA" /> <code codeSystem="local" code="13267-8" displayName="Complete blood count (CBC) with automated white blood cell (WBC) differential" /> <statusCode code="completed" /> <component> < observation moodCode="EVN" classCode="OBS"> <templateId root= "2.16.840.1.217168.10..22.4.2" /> <id nullFlavor="NA" /> < code codeSystem="local" code="6690-2" displayName="Blood leukocytes automated count (number/volume)" /> <statusCode code="completed" /> < effectiveTime value="585250367102" /> <value unit="10*3/uL" xsi:type= "PQ" value="9.2" /> <referenceRange> <observationRange> <text>4.3-11.0</text> </observationRange> </ referenceRange> </observation> </component> <component> <observation moodCode="EVN" classCode="OBS"> <templateId root= "216.840.1.518471.10..22.4.2" /> <id nullFlavor="NA" /> < code codeSystem="local" code="789-8" displayName="Blood erythrocytes automated count (number/volume)" /> <statusCode code="completed" /> < effectiveTime value="300853593417" /> <value unit="10*6/uL" xsi:type= "PQ" value="4.27" /> <interpretationCode codeSystem="local" code="" / > <referenceRange> <observationRange> <text> 4.35-5.85</text> </observationRange> </referenceRange> </observation> </component> <component> <observation moodCode="EVN" classCode="OBS"> <templateId root= "2.16.840.1.938368.10..22.4.2" /> <id nullFlavor="NA" /> < code codeSystem="local" code="03523-1" displayName="Venous blood hemoglobin measurement (mass/volume)" /> <statusCode code="completed" /> <effectiveTime value="739612000039" /> <value unit="g/dL" xsi:type="PQ " value="13.8" /> <referenceRange> <observationRange> <text>11.5-16.0</text> </observationRange> </ referenceRange> </observation> </component> <component> <observation moodCode="EVN" classCode="OBS"> <templateId root= "216.840.1.991334.10..22.4.2" /> <id nullFlavor="NA" /> < code codeSystem="local" code="62815-0" displayName="Blood hematocrit (volume fraction)" /> <statusCode code="completed" /> <effectiveTime value="972491212708" /> <value unit="%" xsi:type="PQ" value="39" / > <referenceRange> <observationRange> <text>35- 52</text> </observationRange> </referenceRange> </ observation> </component> <component> <observation moodCode= "EVN" classCode="OBS"> <templateId root="216.840.1.563930..22.4.2 " /> <id nullFlavor="NA" /> <code codeSystem="local" code="787 -2" displayName="Automated erythrocyte mean corpuscular volume" /> < statusCode code="completed" /> <effectiveTime value="830279682775" /> <value unit="[foz_us]" xsi:type="PQ" value="92" /> < referenceRange> <observationRange> <text>80-99</text> </observationRange> </referenceRange> </observation> </component> <component> <observation moodCode="EVN" classCode= "OBS"> <templateId root="2.16.840.1.621521.10...4.2" /> < id nullFlavor="NA" /> <code codeSystem="local" code="785-6" displayName ="Automated erythrocyte mean corpuscular hemoglobin (mass per erythrocyte)" /> <statusCode code="completed" /> <effectiveTime value= "901642752386" /> <value unit="pg" xsi:type="PQ" value="32" /> <referenceRange> <observationRange> <text>25-34</text > </observationRange> </referenceRange> </observation > </component> <component> <observation moodCode="EVN" classCode="OBS"> <templateId root="2.16.840.1.521054.10...4.2" /> <id nullFlavor="NA" /> <code codeSystem="local" code="786-4" displayName="Automated erythrocyte mean corpuscular hemoglobin concentration measurement (mass/volume)" /> <statusCode code="completed" /> <effectiveTime value="912758909394" /> <value unit="g/dL" xsi:type="PQ " value="35" /> <referenceRange> <observationRange> <text>32-36</text> </observationRange> </ referenceRange> </observation> </component> <component> <observation moodCode="EVN" classCode="OBS"> <templateId root= "2.16.840.1.300475.10.20.22.4.2" /> <id nullFlavor="NA" /> < code codeSystem="local" code="788-0" displayName="Automated erythrocyte distribution width ratio" /> <statusCode code="completed" /> < effectiveTime value="131411270917" /> <value unit="%" xsi:type="PQ " value="12.7" /> <referenceRange> <observationRange> <text>10.0-14.5</text> </observationRange> </ referenceRange> </observation> </component> <component> <observation moodCode="EVN" classCode="OBS"> <templateId root= "216.840.1.618822.10..4.2" /> <id nullFlavor="NA" /> < code codeSystem="local" code="777-3" displayName="Automated blood platelet count (count/volume)" /> <statusCode code="completed" /> < effectiveTime value="509342205132" /> <value unit="10*3/uL" xsi:type= "PQ" value="271" /> <referenceRange> <observationRange> <text>130-400</text> </observationRange> </ referenceRange> </observation> </component> <component> <observation moodCode="EVN" classCode="OBS"> <templateId root= "2.16.840.1.575543.10.20.22.4.2" /> <id nullFlavor="NA" /> < code codeSystem="local" code="85265-3" displayName="Automated blood platelet mean volume measurement" /> <statusCode code="completed" /> < effectiveTime value="028853530289" /> <value unit="[[facility]_us]" xsi:type= "PQ" value="9.6" /> <referenceRange> <observationRange> <text>7.4-10.4</text> </observationRange> </ referenceRange> </observation> </component> <component> <observation moodCode="EVN" classCode="OBS"> <templateId root= "2.16.840.1.895247.10..22.4.2" /> <id nullFlavor="NA" /> < code codeSystem="local" code="770-8" displayName="Automated blood neutrophils/ 100 leukocytes" /> <statusCode code="completed" /> < effectiveTime value="525768338928" /> <value unit="%" xsi:type="PQ " value="60" /> <referenceRange> <observationRange> <text>42-75</text> </observationRange> </ referenceRange> </observation> </component> <component> <observation moodCode="EVN" classCode="OBS"> <templateId root= "216.840.1.742819.10...4.2" /> <id nullFlavor="NA" /> < code codeSystem="local" code="736-9" displayName="Automated blood lymphocytes/ 100 leukocytes" /> <statusCode code="completed" /> < effectiveTime value="623489028898" /> <value unit="%" xsi:type="PQ " value="24" /> <referenceRange> <observationRange> <text>12-44</text> </observationRange> </ referenceRange> </observation> </component> <component> <observation moodCode="EVN" classCode="OBS"> <templateId root= "216.840.1.533682.22.4.2" /> <id nullFlavor="NA" /> < code codeSystem="local" code="44933-2" displayName="Blood monocytes/100 leukocytes" /> <statusCode code="completed" /> <effectiveTime value="783569038389" /> <value unit="%" xsi:type="PQ" value="8" /> <referenceRange> <observationRange> <text>0-12 </text> </observationRange> </referenceRange> </ observation> </component> <component> <observation moodCode= "EVN" classCode="OBS"> <templateId root="2.16.840.1.318073....4.2 " /> <id nullFlavor="NA" /> <code codeSystem="local" code="713 -8" displayName="Automated blood eosinophils/100 leukocytes" /> < statusCode code="completed" /> <effectiveTime value="061174915108" /> <value unit="%" xsi:type="PQ" value="8" /> <referenceRange > <observationRange> <text>0-10</text> </ observationRange> </referenceRange> </observation> </ component> <component> <observation moodCode="EVN" classCode="OBS"> <templateId root="2.16.840.1.592996....4.2" /> <id nullFlavor="NA" /> <code codeSystem="local" code="706-2" displayName= "Automated blood basophils/100 leukocytes" /> <statusCode code= "completed" /> <effectiveTime value="454060401144" /> <value unit="%" xsi:type="PQ" value="0" /> <referenceRange> < observationRange> <text>0-10</text> </observationRange> </referenceRange> </observation> </component> < component> <observation moodCode="EVN" classCode="OBS"> < templateId root="2.16.840.1.410031.10.20.22.4.2" /> <id nullFlavor="NA " /> <code codeSystem="local" code="751-8" displayName="Blood neutrophils automated count (number/volume)" /> <statusCode code= "completed" /> <effectiveTime value="706258629058" /> <value unit="10*3" xsi:type="PQ" value="5.5" /> <referenceRange> < observationRange> <text>1.8-7.8</text> </ observationRange> </referenceRange> </observation> </ component> <component> <observation moodCode="EVN" classCode="OBS"> <templateId root="216.840.1.379568..22.4.2" /> <id nullFlavor="NA" /> <code codeSystem="local" code="731-0" displayName= "Blood lymphocytes automated count (number/volume)" /> <statusCode code ="completed" /> <effectiveTime value="723719246402" /> <value unit="10*3" xsi:type="PQ" value="2.2" /> <referenceRange> < observationRange> <text>1.0-4.0</text> </ observationRange> </referenceRange> </observation> </ component> <component> <observation moodCode="EVN" classCode="OBS"> <templateId root="2.16.840.1.911991.10..22.4.2" /> <id nullFlavor="NA" /> <code codeSystem="local" code="742-7" displayName= "Blood monocytes automated count (number/volume)" /> <statusCode code= "completed" /> <effectiveTime value="943706395744" /> <value unit="10*3" xsi:type="PQ" value="0.8" /> <referenceRange> < observationRange> <text>0.0-1.0</text> </ observationRange> </referenceRange> </observation> </ component> <component> <observation moodCode="EVN" classCode="OBS"> <templateId root="2.16.840.1.002790...4.2" /> <id nullFlavor="NA" /> <code codeSystem="local" code="711-2" displayName= "Automated eosinophil count" /> <statusCode code="completed" /> <effectiveTime value="940015976099" /> <value unit="10*3/uL" xsi: type="PQ" value="0.7" /> <interpretationCode codeSystem="local" code="* *" /> <referenceRange> <observationRange> <text >0.0-0.3</text> </observationRange> </referenceRange> </observation> </component> <component> <observation moodCode ="EVN" classCode="OBS"> <templateId root= "2.16.840.1.418067.10..4.2" /> <id nullFlavor="NA" /> < code codeSystem="local" code="704-7" displayName="Automated blood basophil count (count/volume)" /> <statusCode code="completed" /> < effectiveTime value="859890477406" /> <value unit="10*3/uL" xsi:type= "PQ" value="0.0" /> <referenceRange> <observationRange> <text>0.0-0.1</text> </observationRange> </ referenceRange> </observation> </component> </organizer> </entry > <entry> <organizer moodCode="EVN" classCode="BATTERY"> <templateId root="11.30.840.1.851993.10..22.4.1" /> <id nullFlavor="NA" /> <code codeSystem="local" code="66266-4" displayName="Influenza virus A and B antigen detection" /> <statusCode code="completed" /> <component> < observation moodCode="EVN" classCode="OBS"> <templateId root= "840.1.696738.08.03.22.4.2" /> <id nullFlavor="NA" /> < code codeSystem="local" code="FLURESULT" displayName="FLU RESULT" /> < statusCode code="completed" /> <effectiveTime value="" /> <value unit="" xsi:type="PQ" value="NEGATIVE FOR INFLUENZA A AND B ANTIGENS BY IA" /> <referenceRange> <observationRange> <text>NRG</text> </observationRange> </ referenceRange> </observation> </component> </organizer> </entry > <entry> <organizer moodCode="EVN" classCode="BATTERY"> <templateId root="11.30.840.1.097845.08.03.22.4.1" /> <id nullFlavor="NA" /> <code codeSystem="local" code="31002-5" displayName="Comprehensive metabolic panel" / > <statusCode code="completed" /> <component> <observation moodCode="EVN" classCode="OBS"> <templateId root= "11.30.840.1.316075.10...4.2" /> <id nullFlavor="NA" /> < code codeSystem="local" code="2951-2" displayName="Serum or plasma sodium measurement (moles/volume)" /> <statusCode code="completed" /> <effectiveTime value="954692831048" /> <value unit="mmol/L" xsi:type= "PQ" value="138" /> <referenceRange> <observationRange> <text>135-145</text> </observationRange> </ referenceRange> </observation> </component> <component> <observation moodCode="EVN" classCode="OBS"> <templateId root= "2.16.840.1.108562.10.20.22.4.2" /> <id nullFlavor="NA" /> < code codeSystem="local" code="2823-3" displayName="Serum or plasma potassium measurement (moles/volume)" /> <statusCode code="completed" /> <effectiveTime value="040534586334" /> <value unit="mmol/L" xsi:type= "PQ" value="3.9" /> <referenceRange> <observationRange> <text>3.6-5.0</text> </observationRange> </ referenceRange> </observation> </component> <component> <observation moodCode="EVN" classCode="OBS"> <templateId root= "2.16.840.1.737623.10..22.4.2" /> <id nullFlavor="NA" /> < code codeSystem="local" code="2075-0" displayName="Serum or plasma chloride measurement (moles/volume)" /> <statusCode code="completed" /> <effectiveTime value="935799878933" /> <value unit="mmol/L" xsi:type= "PQ" value="105" /> <referenceRange> <observationRange> <text>98-107</text> </observationRange> </ referenceRange> </observation> </component> <component> <observation moodCode="EVN" classCode="OBS"> <templateId root= "2.16.840.1.297230.10.20.22.4.2" /> <id nullFlavor="NA" /> < code codeSystem="local" code="2028-06" displayName="Carbon dioxide" /> < statusCode code="completed" /> <effectiveTime value="562134150021" /> <value unit="mmol/L" xsi:type="PQ" value="22" /> < referenceRange> <observationRange> <text>21-32</text> </observationRange> </referenceRange> </observation> </component> <component> <observation moodCode="EVN" classCode= "OBS"> <templateId root="2.16.840.1.462606.10.20.22.4.2" /> < id nullFlavor="NA" /> <code codeSystem="local" code="95142-0" displayName="Serum or plasma anion gap determination (moles/volume)" /> <statusCode code="completed" /> <effectiveTime value="806939100580" / > <value unit="mmol/L" xsi:type="PQ" value="11" /> < referenceRange> <observationRange> <text>5-14</text> </observationRange> </referenceRange> </observation> </component> <component> <observation moodCode="EVN" classCode= "OBS"> <templateId root="2.16.840.1.783362.10.20.22.4.2" /> < id nullFlavor="NA" /> <code codeSystem="local" code="3094-0" displayName="Serum or plasma urea nitrogen measurement (mass/volume)" /> <statusCode code="completed" /> <effectiveTime value="913178435591" /> <value unit="mg/dL" xsi:type="PQ" value="9" /> < referenceRange> <observationRange> <text>7-18</text> </observationRange> </referenceRange> </observation> </component> <component> <observation moodCode="EVN" classCode= "OBS"> <templateId root="2.16.840.1.854303.10..22.4.2" /> < id nullFlavor="NA" /> <code codeSystem="local" code="2160-0" displayName="Serum or plasma creatinine measurement (mass/volume)" /> < statusCode code="completed" /> <effectiveTime value="186047931783" /> <value unit="mg/dL" xsi:type="PQ" value="0.57" /> < interpretationCode codeSystem="local" code="" /> <referenceRange> <observationRange> <text>0.60-1.30</text> </ observationRange> </referenceRange> </observation> </ component> <component> <observation moodCode="EVN" classCode="OBS"> <templateId root="216.840.1.424347.10...4.2" /> <id nullFlavor="NA" /> <code codeSystem="local" code="3097-3" displayName= "Serum or plasma urea nitrogen/creatinine mass ratio" /> <statusCode code="completed" /> <effectiveTime value="637515637115" /> < value unit="" xsi:type="PQ" value="16" /> <referenceRange> < observationRange> <text>NRG</text> </observationRange> </referenceRange> </observation> </component> < component> <observation moodCode="EVN" classCode="OBS"> < templateId root="2.16.840.1.434443.10..22.4.2" /> <id nullFlavor="NA " /> <code codeSystem="local" code="84212-3" displayName="Serum or plasma creatinine measurement with calculation of estimated glomerular filtration rate" /> <statusCode code="completed" /> < effectiveTime value="659914421943" /> <value unit="" xsi:type="PQ" value=">" /> <referenceRange> <observationRange> <text>NRG</text> </observationRange> </referenceRange > </observation> </component> <component> <observation moodCode="EVN" classCode="OBS"> <templateId root= "2.16.840.1.903045.10...4.2" /> <id nullFlavor="NA" /> < code codeSystem="local" code="2345-7" displayName="Serum or plasma glucose measurement (mass/volume)" /> <statusCode code="completed" /> <effectiveTime value="731262444665" /> <value unit="mg/dL" xsi:type="PQ " value="81" /> <referenceRange> <observationRange> <text>70-105</text> </observationRange> </ referenceRange> </observation> </component> <component> <observation moodCode="EVN" classCode="OBS"> <templateId root= "2.16.840.1.007623.10..4.2" /> <id nullFlavor="NA" /> < code codeSystem="local" code="97647-0" displayName="Serum or plasma calcium measurement (mass/volume)" /> <statusCode code="completed" /> <effectiveTime value="847299963334" /> <value unit="mg/dL" xsi:type="PQ " value="9.7" /> <referenceRange> <observationRange> <text>8.5-10.1</text> </observationRange> </ referenceRange> </observation> </component> <component> <observation moodCode="EVN" classCode="OBS"> <templateId root= "2.16.840.1.961960.10..4.2" /> <id nullFlavor="NA" /> < code codeSystem="local" code="1974-11" displayName="Serum or plasma total bilirubin measurement (mass/volume)" /> <statusCode code="completed" / > <effectiveTime value="893758952191" /> <value unit="mg/dL" xsi:type="PQ" value="0.2" /> <referenceRange> < observationRange> <text>0.1-1.0</text> </ observationRange> </referenceRange> </observation> </ component> <component> <observation moodCode="EVN" classCode="OBS"> <templateId root="2.16.840.1.314386.10..22.4.2" /> <id nullFlavor="NA" /> <code codeSystem="local" code="6768-03" displayName= "Serum or plasma alkaline phosphatase measurement (enzymatic activity/volume)" / > <statusCode code="completed" /> <effectiveTime value= "044365780272" /> <value unit="U/L" xsi:type="PQ" value="55" /> <referenceRange> <observationRange> <text>40-136</ text> </observationRange> </referenceRange> </ observation> </component> <component> <observation moodCode= "EVN" classCode="OBS"> <templateId root="2.16.840.1.545002.10..22.4.2 " /> <id nullFlavor="NA" /> <code codeSystem="local" code= "1920-05" displayName="Serum or plasma aspartate aminotransferase measurement ( enzymatic activity/volume)" /> <statusCode code="completed" /> <effectiveTime value="247596956048" /> <value unit="U/L" xsi:type="PQ " value="17" /> <referenceRange> <observationRange> <text>5-34</text> </observationRange> </referenceRange > </observation> </component> <component> <observation moodCode="EVN" classCode="OBS"> <templateId root= "2.16.840.1.019440.10.20.22.4.2" /> <id nullFlavor="NA" /> < code codeSystem="local" code="1742-6" displayName="Serum or plasma alanine aminotransferase measurement (enzymatic activity/volume)" /> < statusCode code="completed" /> <effectiveTime value="088203898839" /> <value unit="U/L" xsi:type="PQ" value="9" /> <referenceRange> <observationRange> <text>0-55</text> </ observationRange> </referenceRange> </observation> </ component> <component> <observation moodCode="EVN" classCode="OBS"> <templateId root="216.840.1.898464.10..22.4.2" /> <id nullFlavor="NA" /> <code codeSystem="local" code="2885-2" displayName= "Serum or plasma protein measurement (mass/volume)" /> <statusCode code ="completed" /> <effectiveTime value="019697177469" /> <value unit="g/dL" xsi:type="PQ" value="6.8" /> <referenceRange> < observationRange> <text>6.4-8.2</text> </ observationRange> </referenceRange> </observation> </ component> <component> <observation moodCode="EVN" classCode="OBS"> <templateId root="2.16.840.1.079236.10.20.22.4.2" /> <id nullFlavor="NA" /> <code codeSystem="local" code="1751-7" displayName= "Serum or plasma albumin measurement (mass/volume)" /> <statusCode code ="completed" /> <effectiveTime value="474594651307" /> <value unit="g/dL" xsi:type="PQ" value="4.1" /> <referenceRange> < observationRange> <text>3.2-4.5</text> </ observationRange> </referenceRange> </observation> </ component> <component> <observation moodCode="EVN" classCode="OBS"> <templateId root="16.840.1.776862.10..22.4.2" /> <id nullFlavor="NA" /> <code codeSystem="local" code="CALCIUMCORR" displayName="CALCIUM CORRECTED" /> <statusCode code="completed" /> <effectiveTime value="341249318513" /> <value unit="mg/dL" xsi: type="PQ" value="9.6" /> <referenceRange> <observationRange > <text>8.5-10.1</text> </observationRange> </ referenceRange> </observation> </component> </organizer> </entry > <entry> <organizer moodCode="EVN" classCode="BATTERY"> <templateId root="16.840.1.368676.10..22.4.1" /> <id nullFlavor="NA" /> <code codeSystem="local" code="1798-05" displayName="Serum or plasma amylase measurement (enzymatic activity/volume)" /> <statusCode code="completed" / > <component> <observation moodCode="EVN" classCode="OBS"> <templateId root="16.840.1.990267.10.20.22.4.2" /> <id nullFlavor="NA " /> <code codeSystem="local" code="1798-05" displayName="Serum or plasma amylase measurement (enzymatic activity/volume)" /> <statusCode code="completed" /> <effectiveTime value="976637547998" /> < value unit="U/L" xsi:type="PQ" value="40" /> <referenceRange> <observationRange> <text>25-125</text> </ observationRange> </referenceRange> </observation> </ component> </organizer> </entry> <entry> <organizer moodCode="EVN" classCode="BATTERY"> <templateId root="216.840.1.097283.10..22.4.1" /> <id nullFlavor="NA" /> <code codeSystem="local" code="3040-3" displayName="Lipase" /> <statusCode code="completed" /> <component> <observation moodCode="EVN" classCode="OBS"> <templateId root= "216.840.1.438211.10..22.4.2" /> <id nullFlavor="NA" /> < code codeSystem="local" code="3040-3" displayName="Lipase" /> < statusCode code="completed" /> <effectiveTime value="249821628116" /> <value unit="U/L" xsi:type="PQ" value="23" /> <referenceRange > <observationRange> <text>8-78</text> </ observationRange> </referenceRange> </observation> </ component> </organizer> </entry> <entry> <organizer moodCode="EVN" classCode="BATTERY"> <templateId root="216.840.1.901626.10..22.4.1" /> <id nullFlavor="NA" /> <code codeSystem="local" code="39145-1" displayName="Urine drug screening test" /> <statusCode code="completed" /> <component> <observation moodCode="EVN" classCode="OBS"> < templateId root="216.840.1.262585.10.20.22.4.2" /> <id nullFlavor="NA " /> <code codeSystem="local" code="94275-1" displayName="Urine phencyclidine detection by screening method" /> <statusCode code= "completed" /> <effectiveTime value="679566620111" /> <value unit="" xsi:type="PQ" value="NEGATIVE" /> <referenceRange> < observationRange> <text>NEGATIVE</text> </ observationRange> </referenceRange> </observation> </ component> <component> <observation moodCode="EVN" classCode="OBS"> <templateId root="16.840.1.013743.10...4.2" /> <id nullFlavor="NA" /> <code codeSystem="local" code="14542-6" displayName= "Urine benzodiazepines detection by screening method" /> <statusCode code="completed" /> <effectiveTime value="" /> < value unit="" xsi:type="PQ" value="NEGATIVE" /> <referenceRange> <observationRange> <text>NEGATIVE</text> </ observationRange> </referenceRange> </observation> </ component> <component> <observation moodCode="EVN" classCode="OBS"> <templateId root="11.30.840.1.189634.10..22.4.2" /> <id nullFlavor="NA" /> <code codeSystem="local" code="3397-7" displayName= "Urine cocaine detection" /> <statusCode code="completed" /> < effectiveTime value="481226167685" /> <value unit="" xsi:type="PQ" value="NEGATIVE" /> <referenceRange> <observationRange> <text>NEGATIVE</text> </observationRange> </ referenceRange> </observation> </component> <component> <observation moodCode="EVN" classCode="OBS"> <templateId root= "216.840.1.012059.10.22.4.2" /> <id nullFlavor="NA" /> < code codeSystem="local" code="22612-0" displayName="Urine amphetamines detection by screening method" /> <statusCode code="completed" /> <effectiveTime value="" /> <value unit="" xsi:type="PQ " value="NEGATIVE" /> <referenceRange> <observationRange> <text>NEGATIVE</text> </observationRange> </ referenceRange> </observation> </component> <component> <observation moodCode="EVN" classCode="OBS"> <templateId root= "216.840.1.047388.22.4.2" /> <id nullFlavor="NA" /> < code codeSystem="local" code="22642-9" displayName="Urine methamphetamine detection by screening method" /> <statusCode code="completed" /> <effectiveTime value="" /> <value unit="" xsi:type="PQ " value="NEGATIVE" /> <referenceRange> <observationRange> <text>NEGATIVE</text> </observationRange> </ referenceRange> </observation> </component> <component> <observation moodCode="EVN" classCode="OBS"> <templateId root= "216.840.1.181026.10.22.4.2" /> <id nullFlavor="NA" /> < code codeSystem="local" code="14550-7" displayName="Urine cannabinoids detection by screening method" /> <statusCode code="completed" /> <effectiveTime value="" /> <value unit="" xsi:type="PQ " value="NEGATIVE" /> <referenceRange> <observationRange> <text>NEGATIVE</text> </observationRange> </ referenceRange> </observation> </component> <component> <observation moodCode="EVN" classCode="OBS"> <templateId root= "216.840.1.404304.10.20.22.4.2" /> <id nullFlavor="NA" /> < code codeSystem="local" code="99471-5" displayName="Urine opiates detection by screening method" /> <statusCode code="completed" /> < effectiveTime value="681360931923" /> <value unit="" xsi:type="PQ" value="NEGATIVE" /> <referenceRange> <observationRange> <text>NEGATIVE</text> </observationRange> </ referenceRange> </observation> </component> <component> <observation moodCode="EVN" classCode="OBS"> <templateId root= "11.30.840.1.744910.10.22.4.2" /> <id nullFlavor="NA" /> < code codeSystem="local" code="3377-9" displayName="Urine barbiturates detection " /> <statusCode code="completed" /> <effectiveTime value= "876666947891" /> <value unit="" xsi:type="PQ" value="NEGATIVE" /> <referenceRange> <observationRange> <text>NEGATIVE </text> </observationRange> </referenceRange> </ observation> </component> <component> <observation moodCode= "EVN" classCode="OBS"> <templateId root="11.30.840.1.357159.10.2022.4.2 " /> <id nullFlavor="NA" /> <code codeSystem="local" code= "87423-5" displayName="Screening urine tricyclic antidepressants detection" /> <statusCode code="completed" /> <effectiveTime value= "" /> <value unit="" xsi:type="PQ" value="NEGATIVE" /> <referenceRange> <observationRange> <text>NEGATIVE </text> </observationRange> </referenceRange> </ observation> </component> <component> <observation moodCode= "EVN" classCode="OBS"> <templateId root="216.840.1.376135.10.22.4.2 " /> <id nullFlavor="NA" /> <code codeSystem="local" code= "31584-3" displayName="Urine methadone detection by screening method" /> <statusCode code="completed" /> <effectiveTime value="" /> <value unit="" xsi:type="PQ" value="NEGATIVE" /> < referenceRange> <observationRange> <text>NEGATIVE</text > </observationRange> </referenceRange> </observation > </component> <component> <observation moodCode="EVN" classCode="OBS"> <templateId root="11.30.840.1.212498.10.4.2" /> <id nullFlavor="NA" /> <code codeSystem="local" code="80827-4 " displayName="Urine oxycodone detection" /> <statusCode code= "completed" /> <effectiveTime value="" /> <value unit="" xsi:type="PQ" value="NEGATIVE" /> <referenceRange> < observationRange> <text>NEGATIVE</text> </ observationRange> </referenceRange> </observation> </ component> <component> <observation moodCode="EVN" classCode="OBS"> <templateId root="216.840.1.813199.10.2022.4.2" /> <id nullFlavor="NA" /> <code codeSystem="local" code="59443-0" displayName= "Urine propoxyphene detection" /> <statusCode code="completed" /> <effectiveTime value="" /> <value unit="" xsi:type="PQ " value="NEGATIVE" /> <referenceRange> <observationRange> <text>NEGATIVE</text> </observationRange> </ referenceRange> </observation> </component> </organizer> </entry > <entry> <organizer moodCode="EVN" classCode="BATTERY"> <templateId root="2.16.840.1.091983.10..22.4.1" /> <id nullFlavor="NA" /> <code codeSystem="local" code="02456-1" displayName="Complete urinalysis with reflex to culture" /> <statusCode code="completed" /> <component> < observation moodCode="EVN" classCode="OBS"> <templateId root= "2.16.840.1.277130.10..22.4.2" /> <id nullFlavor="NA" /> < code codeSystem="local" code="5778-6" displayName="Urine color determination" / > <statusCode code="completed" /> <effectiveTime value= "422230776785" /> <value unit="" xsi:type="PQ" value="YELLOW" /> <referenceRange> <observationRange> <text>NRG</text > </observationRange> </referenceRange> </observation > </component> <component> <observation moodCode="EVN" classCode="OBS"> <templateId root="216.840.1.059319.10..22.4.2" /> <id nullFlavor="NA" /> <code codeSystem="local" code="28235-8 " displayName="Urine clarity determination" /> <statusCode code= "completed" /> <effectiveTime value="019798214882" /> <value unit="" xsi:type="PQ" value="CLEAR" /> <referenceRange> < observationRange> <text>NRG</text> </observationRange> </referenceRange> </observation> </component> < component> <observation moodCode="EVN" classCode="OBS"> < templateId root="216.840.1.370744.22.4.2" /> <id nullFlavor="NA " /> <code codeSystem="local" code="5803-2" displayName="Urine pH measurement by test strip" /> <statusCode code="completed" /> <effectiveTime value="" /> <value unit="" xsi:type="PQ" value="7" /> <referenceRange> <observationRange> <text>5-9</text> </observationRange> </referenceRange> </observation> </component> <component> <observation moodCode="EVN" classCode="OBS"> <templateId root= "216.840.1.997410.08.03.22.4.2" /> <id nullFlavor="NA" /> < code codeSystem="local" code="5811-5" displayName="Specific gravity of urine by test strip" /> <statusCode code="completed" /> <effectiveTime value="975141423467" /> <value unit="" xsi:type="PQ" value="1.005" /> <interpretationCode codeSystem="local" code="" /> < referenceRange> <observationRange> <text>1.016-1.022</ text> </observationRange> </referenceRange> </ observation> </component> <component> <observation moodCode= "EVN" classCode="OBS"> <templateId root="216.840.1.412464.08.03.22.4.2 " /> <id nullFlavor="NA" /> <code codeSystem="local" code= "93849-5" displayName="Urine protein assay by test strip, semi-quantitative" /> <statusCode code="completed" /> <effectiveTime value= "" /> <value unit="" xsi:type="PQ" value="NEGATIVE" /> <referenceRange> <observationRange> <text>NEGATIVE </text> </observationRange> </referenceRange> </ observation> </component> <component> <observation moodCode= "EVN" classCode="OBS"> <templateId root="2.16.840.1.645970.10..4.2 " /> <id nullFlavor="NA" /> <code codeSystem="local" code= "14059-5" displayName="Urine glucose detection by automated test strip" /> <statusCode code="completed" /> <effectiveTime value=" " /> <value unit="" xsi:type="PQ" value="NEGATIVE" /> < referenceRange> <observationRange> <text>NEGATIVE</text > </observationRange> </referenceRange> </observation > </component> <component> <observation moodCode="EVN" classCode="OBS"> <templateId root="2.16.840.1.558697.10..22.4.2" /> <id nullFlavor="NA" /> <code codeSystem="local" code="10633-8 " displayName="Erythrocytes detection in urine sediment by light microscopy" /> <statusCode code="completed" /> <effectiveTime value= "" /> <value unit="" xsi:type="PQ" value="NEGATIVE" /> <referenceRange> <observationRange> <text>NEGATIVE </text> </observationRange> </referenceRange> </ observation> </component> <component> <observation moodCode= "EVN" classCode="OBS"> <templateId root="2.16.840.1.854258.10..22.4.2 " /> <id nullFlavor="NA" /> <code codeSystem="local" code= "92419-9" displayName="Urine ketones detection by automated test strip" /> <statusCode code="completed" /> <effectiveTime value=" " /> <value unit="" xsi:type="PQ" value="NEGATIVE" /> < referenceRange> <observationRange> <text>NEGATIVE</text > </observationRange> </referenceRange> </observation > </component> <component> <observation moodCode="EVN" classCode="OBS"> <templateId root="216.840.1.178940.10..22.4.2" /> <id nullFlavor="NA" /> <code codeSystem="local" code="5802-4" displayName="Urine nitrite detection by test strip" /> <statusCode code ="completed" /> <effectiveTime value="" /> <value unit="" xsi:type="PQ" value="NEGATIVE" /> <referenceRange> < observationRange> <text>NEGATIVE</text> </ observationRange> </referenceRange> </observation> </ component> <component> <observation moodCode="EVN" classCode="OBS"> <templateId root="2.16.840.1.425121.10.20.22.4.2" /> <id nullFlavor="NA" /> <code codeSystem="local" code="5770-3" displayName= "Urine total bilirubin detection by test strip" /> <statusCode code= "completed" /> <effectiveTime value="" /> <value unit="" xsi:type="PQ" value="NEGATIVE" /> <referenceRange> < observationRange> <text>NEGATIVE</text> </ observationRange> </referenceRange> </observation> </ component> <component> <observation moodCode="EVN" classCode="OBS"> <templateId root="216.840.1.501863.10.20.22.4.2" /> <id nullFlavor="NA" /> <code codeSystem="local" code="85429-8" displayName= "Urine urobilinogen measurement by automated test strip (mass/volume)" /> <statusCode code="completed" /> <effectiveTime value="140451284397 " /> <value unit="" xsi:type="PQ" value="NORMAL" /> < referenceRange> <observationRange> <text>NORMAL</text> </observationRange> </referenceRange> </observation> </component> <component> <observation moodCode="EVN" classCode ="OBS"> <templateId root="16.840.1.685206.10.22.4.2" /> < id nullFlavor="NA" /> <code codeSystem="local" code="5799-2" displayName="Urine leukocyte esterase detection by dipstick" /> < statusCode code="completed" /> <effectiveTime value="757736218205" /> <value unit="" xsi:type="PQ" value="NEGATIVE" /> < referenceRange> <observationRange> <text>NEGATIVE</text > </observationRange> </referenceRange> </observation > </component> <component> <observation moodCode="EVN" classCode="OBS"> <templateId root="216.840.1.398325.10.20.22.4.2" /> <id nullFlavor="NA" /> <code codeSystem="local" code="75019-3 " displayName="Automated urine sediment erythrocyte count by microscopy (number/ high power field)" /> <statusCode code="completed" /> < effectiveTime value="731919535640" /> <value unit="" xsi:type="PQ" value="NONE" /> <referenceRange> <observationRange> <text>NRG</text> </observationRange> </referenceRange > </observation> </component> <component> <observation moodCode="EVN" classCode="OBS"> <templateId root= "216.840.1.239903.10.4.2" /> <id nullFlavor="NA" /> < code codeSystem="local" code="5821-4" displayName="Automated urine sediment leukocyte count by microscopy (number/high power field)" /> < statusCode code="completed" /> <effectiveTime value="616125131752" /> <value unit="[HPF]" xsi:type="PQ" value="" /> <referenceRange > <observationRange> <text>NRG</text> </ observationRange> </referenceRange> </observation> </ component> <component> <observation moodCode="EVN" classCode="OBS"> <templateId root="216.840.1.841696.10..4.2" /> <id nullFlavor="NA" /> <code codeSystem="local" code="66679-1" displayName= "Bacteria detection in urine sediment by light microscopy" /> < statusCode code="completed" /> <effectiveTime value="277574957961" /> <value unit="" xsi:type="PQ" value="FEW" /> < interpretationCode codeSystem="local" code="*" /> <referenceRange> <observationRange> <text>NRG</text> </ observationRange> </referenceRange> </observation> </ component> <component> <observation moodCode="EVN" classCode="OBS"> <templateId root="16.840.1.211433.10.22.4.2" /> <id nullFlavor="NA" /> <code codeSystem="local" code="53511-3" displayName= "Squamous epithelial cells detection in urine sediment by light microscopy" /> <statusCode code="completed" /> <effectiveTime value= "182015543711" /> <value unit="" xsi:type="PQ" value="0-2" /> <referenceRange> <observationRange> <text>NRG</text> </observationRange> </referenceRange> </observation> </component> <component> <observation moodCode="EVN" classCode= "OBS"> <templateId root="216.840.1.604279.08.03.22.4.2" /> < id nullFlavor="NA" /> <code codeSystem="local" code="49671-4" displayName="Crystals detection in urine sediment by light microscopy" /> <statusCode code="completed" /> <effectiveTime value=" " /> <value unit="" xsi:type="PQ" value="NONE" /> < referenceRange> <observationRange> <text>NRG</text> </observationRange> </referenceRange> </observation> </component> <component> <observation moodCode="EVN" classCode= "OBS"> <templateId root="16.840.1.853305.10.4.2" /> < id nullFlavor="NA" /> <code codeSystem="local" code="64647-8" displayName="Casts detection in urine sediment by light microscopy" /> <statusCode code="completed" /> <effectiveTime value="011915515075" /> <value unit="" xsi:type="PQ" value="NONE" /> <referenceRange > <observationRange> <text>NRG</text> </ observationRange> </referenceRange> </observation> </ component> <component> <observation moodCode="EVN" classCode="OBS"> <templateId root="2.16.840.1.701165.10.20.22.4.2" /> <id nullFlavor="NA" /> <code codeSystem="local" code="8247-9" displayName= "Mucus detection in urine sediment by light microscopy" /> <statusCode code="completed" /> <effectiveTime value="235207649690" /> < value unit="" xsi:type="PQ" value="NEGATIVE" /> <referenceRange> <observationRange> <text>NRG</text> </ observationRange> </referenceRange> </observation> </ component> <component> <observation moodCode="EVN" classCode="OBS"> <templateId root="2.16.840.1.934294.10.20.22.4.2" /> <id nullFlavor="NA" /> <code codeSystem="local" code="56939-2" displayName= "Complete urinalysis with reflex to culture" /> <statusCode code= "completed" /> <effectiveTime value="038230846108" /> <value unit="" xsi:type="PQ" value="NO" /> <referenceRange> < observationRange> <text>NRG</text> </observationRange> </referenceRange> </observation> </component> </ organizer> </entry></section> Encounters ACCT No. Visit Date/Time Discharge Status Pt. Type Provider Facility Loc./Unit Complaint [id number] 12/24/2017 00:00:00 12/24/2017 00:00:00 DIS Outpatient [id number] 03/14/2017 13:15:00 Document Registration [id number] 03/14/2017 00:00:00 Document Registration [id number] 01/05/2018 15:04:00 ACT Document Registration [id number] 11/05/2018 14:01:00 11/05/2018 23:59:00 DIS Outpatient Rhett Cuca [facility] Diag Rad R05 [id number] 01/04/2018 10:08:00 01/04/2018 12:30:00 DIS Emergency Magallanes Howard [facility] on [facility] ED abd pain [id number] 12/15/2017 20:05:00 12/15/2017 23:59:59 CLS Emergency Zarate Jacob [facility] on [facility] ED chest pain, memory issues [id number] 11/21/2017 00:46:00 11/28/2017 17:20:00 DIS Inpatient DavidGavin [facility] on [facility] J5IM SA, APAP tox, meth abuse [id number] 11/04/2017 02:42:00 11/04/2017 03:40:00 DIS Emergency Zac Tijerina [facility] on [facility] ED SOA, ABD Pain [id number] 10/16/2017 22:17:00 10/17/2017 01:11:00 DIS Emergency Magallanes Howard [facility] on [facility] ED abd pain [id number] 08/04/2017 18:35:00 08/05/2017 12:28:00 DIS Emergency Zarate Jacob [facility] on [facility] ED abominal pain [id number] 08/03/2017 11:01:00 08/03/2017 14:17:00 DIS Emergency Zarate Jacob [facility] on [facility] ED abd pain [id number] 06/11/2017 10:40:00 06/11/2017 23:59:59 CLS Emergency Zarate Jacob [facility] ED ABD PAIN [id number] 05/24/2017 09:18:00 05/24/2017 12:11:00 DIS Emergency Zarate Jacob [facility] on [facility] ED n/v bodyaches, chills [id number] 02/09/2017 08:16:00 02/09/2017 13:41:00 DIS Emergency Love Denise [facility] on [facility] ED nausea, left sided abd pain [id number] 09/30/2016 01:15:00 09/30/2016 04:31:00 DIS Emergency Richar Pierce [facility] on [facility] ED sore throat, left ear pain [id number] 08/17/2016 17:31:00 08/17/2016 19:42:00 DIS Emergency Breezy Zac Nash [facility] on [facility] ED right side abd pain [id number] 08/16/2016 00:56:00 08/17/2016 12:59:00 DIS Outpatient Velazquez Jeremy [facility] on [facility] J6E intractable abdominal pain [id number] 05/28/2016 20:19:00 05/28/2016 21:41:00 DIS Emergency Srivastava Mark [facility] on [facility] ED cough, SOA [id number] 03/20/2016 01:21:00 03/20/2016 23:59:59 CLS Emergency Skinner Matthew [facility] on [facility] ED abd pain, cramping [id number] 03/07/2016 21:42:00 03/08/2016 19:16:00 DIS Outpatient Jorge Brice [facility] on [facility] J5W Incomplete / dysfunctional bleeding [id number] 02/29/2016 23:47:00 03/01/2016 01:01:00 DIS Emergency Srivastava Mark [facility] on [facility] ED vaginal bleeding [id number] 02/28/2016 20:08:00 02/28/2016 22:19:00 DIS Emergency Srivastava Mark [facility] on [facility] ED vag bleeding, 8 wks [id number] 02/18/2016 13:47:00 02/18/2016 17:14:00 DIS Emergency Richar Pierce [facility] on [facility] ED Possible miscarriage [id number] 01/25/2016 20:48:00 01/25/2016 23:09:00 DIS Emergency José Magallanes MD [facility] on [facility] ED CONGESTION, COUGH [id number] 11/25/2015 13:12:00 11/25/2015 13:52:00 DIS Emergency Elpidio DODD, José Barajas [facility] on [facility] ED sore throt [id number] 10/27/2015 12:04:00 10/27/2015 13:55:00 DIS Emergency Sai Pierceip Darleen [facility] on [facility] ED SOA possible reaction to meds [id number] 06/10/2015 10:24:00 06/10/2015 12:25:00 DIS Emergency Rodolfo DODD, Navin Pineda [facility] on [facility] ED N/V [id number] 05/02/2015 12:45:00 05/02/2015 17:15:00 DIS Emergency Elpidio DODD, José Barajas [facility] on [facility] ED sore throat, AGUILERA [id number] 01/05/2018 05:16:58 Document Registration [id number] 11/29/2017 05:16:48 Document Registration [id number] 11/27/2017 05:17:01 Document Registration [id number] 11/26/2017 05:15:46 Document Registration [id number] 11/24/2017 05:16:54 Document Registration [id number] 11/23/2017 05:16:49 Document Registration [id number] 11/22/2017 05:16:43 Document Registration [id number] 11/21/2017 05:17:23 Document Registration [id number] 08/06/2017 05:16:01 Document Registration [id number] 08/05/2017 05:16:09 Document Registration [id number] 08/05/2017 05:16:08 Document Registration [id number] 08/04/2017 05:17:00 Document Registration [id number] 08/04/2017 05:16:59 Document Registration [id number] 05/25/2017 05:16:24 Document Registration [id number] 05/25/2017 05:16:23 Document Registration [id number] 02/10/2017 05:16:11 Document Registration [id number] 10/01/2016 05:15:23 Document Registration [id number] 09/30/2016 05:15:40 Document Registration [id number] 08/18/2016 05:17:33 Document Registration [id number] 08/17/2016 05:17:15 Document Registration [id number] 08/16/2016 05:17:13 Document Registration [id number] 05/29/2016 05:15:17 Document Registration [id number] 03/21/2016 05:15:44 Document Registration [id number] 03/09/2016 05:15:51 Document Registration [id number] 03/08/2016 05:16:38 Document Registration [id number] 03/01/2016 05:16:45 Document Registration [id number] 02/19/2016 05:16:30 Document Registration [id number] 01/26/2016 05:16:48 Document Registration [id number] 11/26/2015 05:16:00 Document Registration [id number] 10/28/2015 05:16:07 Document Registration [id number] 10/23/2015 05:16:33 Document Registration [id number] 10/23/2015 00:22:00 Document Registration [id number] 08/04/2015 13:35:28 Document Registration [id number] 08/04/2015 13:04:37 Document Registration [id number] 08/04/2015 11:33:05 Document Registration [id number] 11/05/2018 13:45:00 11/05/2018 23:59:59 [facility] [place] [id number] 10/16/2017 23:32:00 10/17/2017 00:30:00 DIS Emergency Aakash Luis DO [facility] W.YINKA [id number] 06/11/2017 18:32:00 06/11/2017 21:45:00 DIS Emergency Tanja DODD, Odalis Vazqeuz [facility] WJUDSON [id number] 06/08/2016 13:30:00 06/08/2016 13:30:00 CAN Outpatient Sae Reyna DO [facility] U [id number] 02/04/2016 14:29:00 02/04/2016 17:46:00 DIS [facility] [id number] 01/30/2016 21:33:00 01/30/2016 22:51:00 DIS Emergency Vishal DODD, Zac Arshad [facility] [id number] 12/11/2015 15:28:00 12/11/2015 15:59:00 DIS Emergency Nilesh Golden [id number] 11/30/2015 23:10:00 12/01/2015 00:15:00 DIS Emergency Dano AUGUSTINE, Justino Starks [facility] [id number] 10/06/2016 14:57:20 10/06/2016 23:59:59 [facility] Outpatient Yunior Velazquez [id number] 12/25/2017 05:16:39 Document Registration [id number] 12/22/2017 05:16:44 Document Registration [id number] 12/21/2017 05:16:13 Document Registration [id number] 12/20/2017 05:17:02 Document Registration [id number] 12/19/2017 05:17:18 Document Registration [id number] 12/16/2017 05:16:09 Document Registration [id number] 12/15/2017 20:05:00 Document Registration [id number] 02/09/2017 08:16:00 Document Registration [id number] 08/17/2016 17:31:00 Document Registration [id number] 08/16/2016 00:00:00 Document Registration [id number] 03/07/2016 21:42:00 Document Registration [id number] 02/29/2016 15:29:00 Document Registration [id number] 11/28/2018 13:51:00 11/28/2018 16:10:00 DIS Emergency CHRIS OZUNA APRN [facility] ER 12 WKS , THROWING UP [id number] 07/16/2018 05:03:00 07/16/2018 05:26:00 DIS Emergency SALVATORE MORROW MD [facility] ER PSYCH [id number] 05/08/2018 13:31:00 05/08/2018 14:12:00 DIS Emergency BUTCH LOTT [facility] ER RIGHT FINGER LACERATION [id number] 03/26/2018 02:10:00 03/27/2018 13:26:00 DIS Inpatient HEMALATHA DODD, LEROY Nash [facility] ICU OD,SUICIDE ATTEMPT, TRICHOMONAS VAGINITIS [id number] 12/11/2018 18:27:00 ACT Emergency BUTCH LOTT [facility] ER AMS,14 WEEKS PREG [id number] 03/26/2018 07:31:00 Document Registration [id number] 03/26/2018 07:31:00 Document Registration [id number] 03/26/2018 07:31:00 Document Registration [id number] 09/01/2009 08:33:00 Document Registration [id number] 11/19/2018 15:00:00 11/19/2018 23:59:59 [facility]
== END 2018-12-11 20:57 | disposition home or self-care (01) ==
LOC: EDUNIT# 18:25 → ER 18:27
DX: O9A.212 Injury, poisoning and certain other consequences of external causes complicating pregnancy, second trimester (principal); R52 Pain, unspecified; R25.3 Fasciculation; T43.3X5A Adverse effect of phenothiazine antipsychotics and neuroleptics, initial encounter; O99.512 Diseases of the respiratory system complicating pregnancy, second trimester; J45.909 Unspecified asthma, uncomplicated; O99.342 Other mental disorders complicating pregnancy, second trimester; F41.9 Anxiety disorder, unspecified; F43.10 Post-traumatic stress disorder, unspecified; F31.9 Bipolar disorder, unspecified; O99.332 Smoking (tobacco) complicating pregnancy, second trimester; F17.210 Nicotine dependence, cigarettes, uncomplicated; Z88.2 Allergy status to sulfonamides; Z86.19 Personal history of other infectious and parasitic diseases; Z91.5 Personal history of self-harm; Z88.8 Allergy status to other drugs, medicaments and biological substances; Z98.890 Other specified postprocedural states; Z3A.14 14 weeks gestation of pregnancy
CPT/HCPCS: 36415; 80053; 80306; 81000; 82150; 83690; 85025; 87804

== ENCOUNTER 2018-12-22 13:24 | Emergency (ER) | payer MEDICAID ==
[~2018-12-22] VITALS: Ht 172.7 cm; Wt 93.4 kg
--- OUTSIDE RECORDS SUMMARY | 2018-12-22 13:36 | XMS REPORT | Continuity of Care Document ---
Author Author [facility] Address Unknown Phone Unavailable Allergies Active Description Code Type Severity Reaction Onset Reported/Identified Relationship to Patient Clinical Status Yes divalproex sodium [id number] Drug Allergy Unknown N/A 07/06/2008 Yes penicillin G [id number] Drug Allergy Unknown N/A 07/06/2008 Yes Depakote ER NKMA N/A N/A 12/22/2014 Yes penicillin NKMA N/A N/A 12/22/2014 Yes Depakote - Oral Medication MED N/A N/A 12/28/2014 Yes Penicillins - CLASS Class MED N /A N/A 12/28/2014 Yes Depakote ER NKMA Medium [id number] 05/02/2015 Yes penicillin NKMA Severe 784.2 05/02/2015 Yes No Known Allergies No Known Allergies Drug Allergy Unknown N/A 2015 Yes Latex 403 N/A N/A 02/28/2016 Yes divalproex sodium divalproex sodium Drug Allergy Mild VOMITING 06/11/2017 Yes Penicillins Penicillins Drug Allergy Unknown THROAT SWELLING 06/11/2017 Yes latex latex Drug Allergy Unknown HIVES 10/17/2017 Yes penicillin G [id number] Drug Allergy Severe Throat Swelling 03/26/2018 Yes divalproex sodium [id number] Drug Allergy Unknown Vomiting 03/26/2018 Medications Medication [...] 0.5MG Take one tablet TID PRN for anxiety.[id number] 5 mg BID dose predniSONE(predniSONE) 1 tabs [...] ORAL 5MG TAKE 1 TABLET TWICE DAILY. Orient Carbonate 300 MG Oral Capsule 01/10/2016 03/11/2016 [...] mg=2 mL, IV Push, q6hr, PRN: Nausea HYDROcodone-acetaminophen(Qu[place]queton 5 mg-325 mg oral tablet) 1 tabs [...] ORAL 150MG TAKE 1/2 TABLET AT BEDTIME. Orient Carbonate 300 MG Oral Capsule 03/30/2016 05/30/2016 [...] ORAL 150MG TAKE 1/2 TABLET AT BEDTIME. Orient Carbonate 300 MG Oral Capsule 05/31/2016 07/01/2016 [...] ORAL 150MG TAKE 1/2 TABLET AT BEDTIME. 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 Ldiia Main 05/03/2017 F F31.5 Bipolar disorder, current [...] Gavin Final E03.9 Hypothyroidism, unspecified 11/29/2017 David,, Agvin Final F15.10 Other stimulant abuse, uncomplicated 11/29/2017 [...] negative 01/07/2018 Magallanes Howard Final 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 01/07/2018 Magallanes [...] HISTORY OF OTHER INFECTIOUS AND 05/10/2018 SHAY OLTTIS Ot Z88.0 ALLERGY STATUS TO PENICILLIN 05/10/2018 [...] MD Ot F41.9 ANXIETY DISORDER, UNSPECIFIED 07/16/2018 [place] MD, SALVATORE D Ot F43.10 POST-TRAUMATIC STRESS [...] APRN Ot F41.9 ANXIETY DISORDER, UNSPECIFIED 11/28/2018 HCRIS OZUNA APRN Ot F43.10 POST-TRAUMATIC STRESS DISORDER, [...] OF THE RESP SYS COMP , 12/03/2018 OZUNA, PETER J STRE[address] CONTRACTOR Ot Z3A.12 12 WEEKS GESTATION OF 12/03/[address] CONTRACTOR Ot Z77.22 CNTCT W AND EXPSR TO ENVIRON TOBACCO SMO 12/03/[address] CONTRACTOR Ot Z86.19 PERSONAL HISTORY OF OTHER INFECTIOUS AND 12/03/[address] CONTRACTOR Ot Z88.0 ALLERGY STATUS TO PENICILLIN 12/03/[address] CONTRACTOR Ot Z88.8 ALLERGY STATUS TO OTH DRUG/MEDS/BIOL SUB 12/03/[address] CONTRACTOR Ot Z91.5 PERSONAL HISTORY OF SELF-HARM 12/03/[address] CONTRACTOR Ot Z98.890 OTHER SPECIFIED POSTPROCEDURAL STATES 12/13/2018 BUTCH LOTT Ot F17.210 NICOTINE DEPENDENCE, CIGARETTES, UNCOMPL 12/13/2018 BUTCH LOTT Ot F31.9 BIPOLAR DISORDER, UNSPECIFIED 12/13/2018 BUTCH LOTT Ot F41.9 ANXIETY DISORDER, UNSPECIFIED 12/13/2018 BUTCH LOTT Ot F43.10 POST-TRAUMATIC STRESS DISORDER, UNSPECIF 12/13/2018 BUTCH LOTT Ot J45.909 UNSPECIFIED ASTHMA, UNCOMPLICATED 12/13/2018 BUTCH LOTT Ot O26.892 OTH RELATED CONDITIONS, SECOND 12/13/2018 BUTCH LOTT Ot O99.332 SMOKING (TOBACCO) COMPLICATING 12/13/2018 BUTCH LOTT Ot O99.342 OTH MENTAL DISORDERS COMP , SEC 12/13/2018 BUTCH LOTT Ot O99.512 DISEASES OF THE RESP SYS COMP , 12/13/2018 BUTCH LOTT Ot O9A.212 INJ/POISN/OTH CONSEQ OF EXTRN CAUSES COM 12/13/2018 BUTCH LOTT Ot R25.3 FASCICULATION 12/13/2018 BUTCH LOTT Ot R52 PAIN, UNSPECIFIED 12/13/2018 BUTCH LOTT Ot T43.3X5A ADVERSE EFFECT OF PHENOTHIAZINE ANTIPSYC 12/13/2018 BUTCH LOTT Ot Z3A.14 14 WEEKS GESTATION OF 12/13/2018 BUTCH LOTT Ot Z86.19 PERSONAL HISTORY OF OTHER INFECTIOUS AND 12/13/2018 BERNOT, BUTCH Ot Z88.2 ALLERGY STATUS TO SULFONAMIDES STATUS 12/13/2018 BERNDALE BUTCH Ot Z88.8 ALLERGY STATUS TO OTH DRUG/MEDS/BIOL SUB 12/13/2018 SHAY LOTTIS Ot Z91.5 PERSONAL HISTORY OF SELF-HARM 12/13/2018 SHAY LOTTIS Ot Z98.890 OTHER SPECIFIED POSTPROCEDURAL STATES Procedures Code Description Performed By Performed On 73.59 MANUAL ASSIST DELIV NEC 09/01/2009 02110 OFFICE/OUTPATIENT VISIT, Rosie Appiah 09/30/2015 16123 OFFICE/OUTPATIENT VISIT, Rosie Appiah 09/30/2015 [id number] OFFICE/OUTPATIENT VISIT, Rosie Appiah 10/20/2015 [id number] OFFICE/OUTPATIENT VISIT, Rosie Appiah 10/20/2015 [id number] OFFICE/OUTPATIENT VISIT, Rosie Appiah 12/15/2015 [id number] OFFICE/OUTPATIENT VISIT, Rosie Appiah 12/15/2015 26001 Anju , Aliza Steele 01/05/2016 20882 Anju , Aliza Steele 01/05/2016 53386 OFFICE/OUTPATIENT VISIT, Rosie Appiah 01/10/2016 [id number] OFFICE/OUTPATIENT VISIT, Rosie Appiah 01/10/2016 95574 Anju , Aliza Steele 01/14/2016 41288 Anju , Aliza Stelee 01/14/2016 H0036 Joey Krueger 01/27/2016 H0036 Joey Krueger 01/27/2016 55090 Anju , Aliza Steele 01/28/2016 40967 Anju , Aliza Steele 01/28/2016 23932 OFFICE/OUTPATIENT VISIT, Rosie Appiah 02/09/2016 33463 OFFICE/OUTPATIENT VISIT, Rosie Appiah 02/09/2016 76096 Anju , Aliza Steeel 02/10/2016 71763 Anju , Aliza Steele 02/10/2016 H0036 Joey Krueger 02/24/2016 H0036 Joey Krueger 02/24/2016 H2011 Herl, Reginald W 03/06/2016 H2011 Herl, Reginald W 03/06/2016 00054 Anju , Aliza Ivette 03/14/2016 32907 Anju , Aliza Ivette 03/14/2016 66676 Anju , Aliza Ivette 03/28/2016 73539 Anju , Aliza Ivette 03/28/2016 63950 OFFICE/OUTPATIENT VISIT, GABI Joviman, Rosie A 03/30/2016 99154 OFFICE/OUTPATIENT VISIT, GABI David, Rosie A 03/30/2016 50015 Anju , Aliza Ivette 04/07/2016 32894 Anju , Aliza Ivette 04/07/2016 71099 Anju , Aliza Ivette 05/29/2016 47166 Anju , Aliza Ivette 05/29/2016 81100 OFFICE/OUTPATIENT VISIT, GABI David, Rosie A 05/31/2016 01311 OFFICE/OUTPATIENT VISIT, GABI David, Rosie A 05/31/2016 80371 Anju , Aliza Ivette 07/12/2016 38476 Anju , Aliza Ivette 07/12/2016 93923 OFFICE/OUTPATIENT VISIT, GABI David Rosie A 07/31/2016 18548 OFFICE/OUTPATIENT VISIT, GABI David, Rosie A 07/31/2016 10331 Laparoscopy, surgical; cholecystectomy with cholangiography.. 2015 57434 Office or other outpatient visit for the evaluation and management of a new patient, which requires Yunior Velazquez 10/06/2016 58893 Laparoscopy, surgical; cholecystectomy with cholangiography Yunior Velazquez 10/06/2016 51422 Laparoscopy, surgical; cholecystectomy with cholangiography Yunior Velazquez 10/20/2016 27634 Office or other outpatient visit for the evaluation and management of a new patient, which requires Yunior Velazquez 10/20/2016 60579 Anju , Aliza Steele 11/07/2016 90219 Ajnu , Aliza Ivette 11/07/2016 12831 Yesenia Monk 12/27/2016 44632 Yesenia Monk 12/27/2016 76094 Yesenia Monk 01/03/2017 25402 Yesenia Monk 01/03/2017 20072 EYE EXAM ESTABLISHED PAT 03/14/2017 10877 REFRACTION 03/14/2017 V2020 Vision svcs frames purchases 03/14/2017 V2100 Lens spher single plano 4.00 03/14/2017 V2103 Spherocylindr 4.00d/12- 2.00d 03/14/2017 V2782 Lens, 1.54-1.65 p/1.60- 1.79g 03/14/2017 VNOPP No Protection Plan 03/14/2017 [id number] OFFICE/OUTPATIENT VISIT, Rosie Appiah 05/03/2017 78435 OFFICE/OUTPATIENT VISIT, Rosie Appiah 05/03/2017 T1023 Gatekeeping Screen - Initial Bethany Gomez 11/28/2017 H2011 Crisis Intervention - Basic Ella Escalera 11/28/2017 H2011 Crisis Intervention - Advanced Lucy Pacheco 11/28/2017 H2011 Crisis Intervention - Advanced Lucy Pacheco 11/28/2017 H2011 Crisis Intervention - Intermediate Ella Escalera 11/28/2017 24027 INITIAL HOSPITAL CARE Coyner, Sienna Pineda 12/19/2017 91562 SUBSEQUENT HOSPITAL CARE Coyner, Sienna Pineda 12/20/2017 43435 SUBSEQUENT HOSPITAL CARE Coyner, Sienna S 12/21/2017 17983 SUBSEQUENT HOSPITAL CARE Coyner, iSenna S 12/22/2017 44915 SUBSEQUENT HOSPITAL CARE Coyner, Sienna S 12/23/2017 64063 HOSPITAL DISCHARGE DAY Coyner, Sienna Pineda 12/24/2017 < section xmlns="urn:hl7-org:v3" xmlns:xsi="http://www.w3.org/2001/XMLSchema- instance"> <templateId root="11.30.840.1.800117.10..22.2.3" /> <templateId root="11.30.840.1.476308...22.2.3.1" /> <code codeSystemName="LOINC" codeSystem="11.30.830.1.756809.6.1" code="23089-7" displayName="Results" /> < title>Results</title> <text> <table> <thead> <tr> <th> Test</th> <th>Result</th> <th>Range</th> </tr> </ thead> <tbody> <tr> < colspan="10">UR TEST - 21:54</th> </tr> <tr> <td>UR [...] <td>Negative NA</td> <td> Negative</td> </tr> <tr> <td>Specific [place]</td> <td>1.020 NA</td> <td>1.003-1.030</td> </tr> <tr> <td>UA Collection [...] <td>Protein</td> <td>Negative NA</td> <td>Negative</td> </tr> <tr> <td>Specific [place]</td> <td>1.015 NA </td> <td>1.003-1.030</td> </tr> <tr> <td>UA [...] <td>Sodium</td> <td>138 mEq/L</td> <td>136-144</td> </tr> <tr> < colspan="10">Lipase - 08/03/17 11:34</th> </tr> <tr> <td> Lipase</td> <td>20 U/L</td> <td>8-48</td> </tr> <tr> < colspan="10">eGFR - 08/03/17 11:34</th> </tr> < tr> [...] <td>Pos 2+ NA</td> <td>Negative</td> </tr> <tr> <td>Specific [place]</td> <td>1.015 NA</td > <td>1.003-1.030</td> </tr> <tr> <td>UA [...] <td>Protein</td> <td>Negative NA</td> <td>Negative</td> </tr> <tr> <td>Specific [place]</ td> <td>1.010 NA</td> <td>1.003-1.030</td> </tr> <tr> <td>UA [...] <td>Pos 2+ NA</td> <td>Negative</td> </tr> <tr> <td>Specific [place]</td> <td>1.045 NA</td> <td>1.003- 1.030</td> </tr> <tr> <td>UA [...] mEq/L</td> <td>136-144</td> </tr> <tr> < colspan="10">eGFR - 11/23/17 03:43</th> </tr> <tr> <td>eGFR</td> [...] <td>Protein</td> <td>Negative NA</td> <td>Negative</td> </tr> <tr> <td>Specific [place] </td> <td>1.025 NA</td> <td>1.003-1.030</td> </tr> <tr> <td>UA [...] <td>Protein</td> <td>Negative NA</td> <td>Negative</td> </tr> <tr> <td>Specific [place]</td> <td>1.020 NA</td> <td>1.003-1.030 </td> </tr> <tr> <td>UA [...] light microscopy</td> <td>NONE </td> <td>NRG</td> </tr> <tr> < colspan="10">Complete blood count (CBC) with automated white [...] <td> 0.0 10*3/uL</td> <td>0.0-0.1</td> </tr> <tr> < colspan="10">Comprehensive metabolic panel - 11/28/18 14:20</th> </tr [...] <tr> <td>Serum or plasma choriogonadotropin measurement (units/volume)</td> <td>97706 m[iU]/mL</td> <td>& lt;5</td> </tr> <tr> <th colspan="10">Complete [...] > <td>9.6 mg/dL</td> <td>8.5-10.1</td> </tr> <tr > <th colspan="10">Serum or plasma amylase measurement (enzymatic activity/volume) [...] <entry> < organizer moodCode="EVN" classCode="BATTERY"> <templateId root= "11.30.840.1.250034.08.03.22.4.1" /> <id nullFlavor="NA" /> <code codeSystem="local" code="PREGU" displayName="UR TEST" /> < statusCode code="completed" /> <component> <observation moodCode= "EVN" classCode="OBS"> <templateId root="840.1.750874.08.03.22.4.2 " /> <id nullFlavor="NA" /> <code codeSystem="local" code= "PREGU" displayName="UR TEST" /> <statusCode code="completed " /> <effectiveTime value="783263070892" /> <value unit="" xsi :type="PQ" value="POSITIVE" /> <interpretationCode codeSystem="local" code="*" /> <referenceRange> <observationRange> <text>NEGATIVE</text> </observationRange> </referenceRange > </observation> </component> </organizer> </entry> <entry> <organizer moodCode="EVN" classCode="BATTERY"> <templateId root= "840.1.052345.08.03.22.4.1" /> <id nullFlavor="NA" /> <code codeSystem="local" code="UA" displayName="URINALYSIS, ROUTINE" /> < statusCode code="completed" /> <component> <observation moodCode= "EVN" classCode="OBS"> <templateId root="11.30.840.1.319468.08.03.22.4.2 " /> <id nullFlavor="NA" /> <code codeSystem="local" code= "LEUESU" displayName="UA LEUKOCYTE ESTERASE DIPSTICK" /> <statusCode code="completed" /> <effectiveTime value="364339345594" /> < value unit="" xsi:type="PQ" value="NEGATIVE" /> <referenceRange> <observationRange> <text>NEGATIVE</text> </ observationRange> </referenceRange> </observation> </ component> <component> <observation moodCode="EVN" classCode="OBS"> <templateId root="16.840.1.807452.10..4.2" /> <id nullFlavor="NA" /> <code codeSystem="local" code="NITRIU" displayName= "UA NITRITE DIPSTICK" /> <statusCode code="completed" /> < effectiveTime value="102611122963" /> <value unit="" xsi:type="PQ" value="NEGATIVE" /> <referenceRange> <observationRange> <text>NEGATIVE</text> </observationRange> </ referenceRange> </observation> </component> <component> <observation moodCode="EVN" classCode="OBS"> <templateId root= "11.30.840.1.203528.10.4.2" /> <id nullFlavor="NA" /> < code codeSystem="local" code="PROTEIU" displayName="UA PROTEIN DIPSTICK" /> <statusCode code="completed" /> <effectiveTime value= "157709055405" /> <value unit="" xsi:type="PQ" value="NEGATIVE" /> <referenceRange> <observationRange> <text>NEGATIVE </text> </observationRange> </referenceRange> </ observation> </component> <component> <observation moodCode= "EVN" classCode="OBS"> <templateId root="11.30.840.1.055018.1020.4.2 " /> <id nullFlavor="NA" /> <code codeSystem="local" code= "DGLUU" displayName="UA GLUCOSE DIPSTICK" /> <statusCode code= "completed" /> <effectiveTime value="700318981192" /> <value unit="" xsi:type="PQ" value="NEGATIVE" /> <referenceRange> < observationRange> <text>NEGATIVE</text> </ observationRange> </referenceRange> </observation> </ component> <component> <observation moodCode="EVN" classCode="OBS"> <templateId root="11.30.840.1.462098.08.03.22.4.2" /> <id nullFlavor="NA" /> <code codeSystem="local" code="KETONU" displayName= "UA KETONE DIPSTICK" /> <statusCode code="completed" /> < effectiveTime value="753352198663" /> <value unit="" xsi:type="PQ" value="NEGATIVE" /> <referenceRange> <observationRange> <text>NEGATIVE</text> </observationRange> </ referenceRange> </observation> </component> <component> <observation moodCode="EVN" classCode="OBS"> <templateId root= "11.30.840.1.078124.08.03.22.4.2" /> <id nullFlavor="NA" /> < code codeSystem="local" code="UROBILU" displayName="UA UROBILINOGEN DIPSTICK" / > <statusCode code="completed" /> <effectiveTime value= "751572442400" /> <value unit="" xsi:type="PQ" value="NORMAL" /> <referenceRange> <observationRange> <text>NORMAL</ text> </observationRange> </referenceRange> </ observation> </component> <component> <observation moodCode= "EVN" classCode="OBS"> <templateId root="16.840.1.361903.22.4.2 " /> <id nullFlavor="NA" /> <code codeSystem="local" code= "BILU" displayName="UA BILIRUBIN DIPSTICK" /> <statusCode code= "completed" /> <effectiveTime value="149929107902" /> <value unit="" xsi:type="PQ" value="NEGATIVE" /> <referenceRange> < observationRange> <text>NEGATIVE</text> </ observationRange> </referenceRange> </observation> </ component> <component> <observation moodCode="EVN" classCode="OBS"> <templateId root="216.840.1.675726.10..4.2" /> <id nullFlavor="NA" /> <code codeSystem="local" code="ABDELRAHMAN" displayName="UA BLOOD DIPSTICK" /> <statusCode code="completed" /> < effectiveTime value="605522209788" /> <value unit="" xsi:type="PQ" value="NEGATIVE" /> <referenceRange> <observationRange> <text>NEGATIVE</text> </observationRange> </ referenceRange> </observation> </component> <component> <observation moodCode="EVN" classCode="OBS"> <templateId root= "216.840.1.441809.10...4.2" /> <id nullFlavor="NA" /> < code codeSystem="local" code="SPGRU" displayName="UA SPECIFIC GRAVITY" /> <statusCode code="completed" /> <effectiveTime value="261944966259 " /> <value unit="" xsi:type="PQ" value="1.007" /> < interpretationCode codeSystem="local" code="*" /> <referenceRange> <observationRange> <text>1.015-1.025</text> </ observationRange> </referenceRange> </observation> </ component> <component> <observation moodCode="EVN" classCode="OBS"> <templateId root="16.840.1.205828.10..22.4.2" /> <id nullFlavor="NA" /> <code codeSystem="local" code="COLTON" displayName="UR PH" /> <statusCode code="completed" /> <effectiveTime value= "755780047073" /> <value unit="" xsi:type="PQ" value="5.0" /> <referenceRange> <observationRange> <text>5.0-7.0</text > </observationRange> </referenceRange> </observation > </component> </organizer> </entry> <entry> <organizer moodCode= "EVN" classCode="BATTERY"> <templateId root="216.840.1.203867.10...4.1 " /> <id nullFlavor="NA" /> <code codeSystem="local" code="UA" displayName="URINALYSIS, ROUTINE" /> <statusCode code="completed" /> < component> <observation moodCode="EVN" classCode="OBS"> < templateId root="216.840.1.807725.10...4.2" /> <id nullFlavor="NA " /> <code codeSystem="local" code="LEUESU" displayName="UA LEUKOCYTE ESTERASE DIPSTICK" /> <statusCode code="completed" /> < effectiveTime value="497347830699" /> <value unit="" xsi:type="PQ" value="1+" /> <interpretationCode codeSystem="local" code="*" /> <referenceRange> <observationRange> <text>NEGATIVE</ text> </observationRange> </referenceRange> </ observation> </component> <component> <observation moodCode= "EVN" classCode="OBS"> <templateId root="216.840.1.119902.08.03.22.4.2 " /> <id nullFlavor="NA" /> <code codeSystem="local" code= "NITRIU" displayName="UA NITRITE DIPSTICK" /> <statusCode code= "completed" /> <effectiveTime value="" /> <value unit="" xsi:type="PQ" value="NEGATIVE" /> <referenceRange> < observationRange> <text>NEGATIVE</text> </ observationRange> </referenceRange> </observation> </ component> <component> <observation moodCode="EVN" classCode="OBS"> <templateId root="2.16.840.1.301969.10...4.2" /> <id nullFlavor="NA" /> <code codeSystem="local" code="PROTEIU" displayName= "UA PROTEIN DIPSTICK" /> <statusCode code="completed" /> < effectiveTime value="" /> <value unit="" xsi:type="PQ" value="TRACE" /> <interpretationCode codeSystem="local" code="*" /> <referenceRange> <observationRange> <text> NEGATIVE</text> </observationRange> </referenceRange> </observation> </component> <component> <observation moodCode ="EVN" classCode="OBS"> <templateId root= "2.16.840.1.369838.08.03.22.4.2" /> <id nullFlavor="NA" /> < code codeSystem="local" code="DGLUU" displayName="UA GLUCOSE DIPSTICK" /> <statusCode code="completed" /> <effectiveTime value=" " /> <value unit="" xsi:type="PQ" value="NEGATIVE" /> < referenceRange> <observationRange> <text>NEGATIVE</text > </observationRange> </referenceRange> </observation > </component> <component> <observation moodCode="EVN" classCode="OBS"> <templateId root="216.840.1.141654.10..22.4.2" /> <id nullFlavor="NA" /> <code codeSystem="local" code="KETONU" displayName="UA KETONE DIPSTICK" /> <statusCode code="completed" /> <effectiveTime value="132778501184" /> <value unit="" xsi:type= "PQ" value="TRACE" /> <interpretationCode codeSystem="local" code="*" / > <referenceRange> <observationRange> <text> NEGATIVE</text> </observationRange> </referenceRange> </observation> </component> <component> <observation moodCode ="EVN" classCode="OBS"> <templateId root= "216.840.1.025491.08.03.22.4.2" /> <id nullFlavor="NA" /> < code codeSystem="local" code="UROBILU" displayName="UA UROBILINOGEN DIPSTICK" / > <statusCode code="completed" /> <effectiveTime value= "" /> <value unit="" xsi:type="PQ" value="NORMAL" /> <referenceRange> <observationRange> <text>NORMAL</ text> </observationRange> </referenceRange> </ observation> </component> <component> <observation moodCode= "EVN" classCode="OBS"> <templateId root="16.840.1.773850.10...4.2 " /> <id nullFlavor="NA" /> <code codeSystem="local" code= "BILU" displayName="UA BILIRUBIN DIPSTICK" /> <statusCode code= "completed" /> <effectiveTime value="879716829310" /> <value unit="" xsi:type="PQ" value="NEGATIVE" /> <referenceRange> < observationRange> <text>NEGATIVE</text> </ observationRange> </referenceRange> </observation> </ component> <component> <observation moodCode="EVN" classCode="OBS"> <templateId root="11.30.840.1.389602.10.20.22.4.2" /> <id nullFlavor="NA" /> <code codeSystem="local" code="ABDELRAHMAN" displayName="UA BLOOD DIPSTICK" /> <statusCode code="completed" /> < effectiveTime value="786886666512" /> <value unit="" xsi:type="PQ" value="4+" /> <interpretationCode codeSystem="local" code="*" /> <referenceRange> <observationRange> <text>NEGATIVE</ text> </observationRange> </referenceRange> </ observation> </component> <component> <observation moodCode= "EVN" classCode="OBS"> <templateId root="11.30.840.1.479480.10...4.2 " /> <id nullFlavor="NA" /> <code codeSystem="local" code= "SPGRU" displayName="UA SPECIFIC GRAVITY" /> <statusCode code= "completed" /> <effectiveTime value="908831306208" /> <value unit="" xsi:type="PQ" value="1.010" /> <interpretationCode codeSystem= "local" code="*" /> <referenceRange> <observationRange> <text>1.015-1.025</text> </observationRange> </ referenceRange> </observation> </component> <component> <observation moodCode="EVN" classCode="OBS"> <templateId root= "11.30.840.1.851618.10..22.4.2" /> <id nullFlavor="NA" /> < code codeSystem="local" code="COLTON" displayName="UR PH" /> <statusCode code="completed" /> <effectiveTime value="" /> < value unit="" xsi:type="PQ" value="7.0" /> <referenceRange> <observationRange> <text>5.0-7.0</text> </ observationRange> </referenceRange> </observation> </ component> </organizer> </entry> <entry> <organizer moodCode="EVN" classCode="BATTERY"> <templateId root="16.840.1.567771.10...4.1" /> <id nullFlavor="NA" /> <code codeSystem="local" code="UAMICRO" displayName="UA MICROSCOPIC" /> <statusCode code="completed" /> < component> <observation moodCode="EVN" classCode="OBS"> < templateId root="16.840.1.091463...4.2" /> <id nullFlavor="NA " /> <code codeSystem="local" code="EPIU" displayName="UA EPITHELIAL CELLS" /> <statusCode code="completed" /> <effectiveTime value ="" /> <value unit="epi/hpf" xsi:type="PQ" value="1+" /> <referenceRange> <observationRange> <text>0 - 1+ </text> </observationRange> </referenceRange> </ observation> </component> <component> <observation moodCode= "EVN" classCode="OBS"> <templateId root="16.840.1.108414...4.2 " /> <id nullFlavor="NA" /> <code codeSystem="local" code= "MUCUSU" displayName="UA MUCUS" /> <statusCode code="completed" /> <effectiveTime value="" /> <value unit="" xsi:type= "PQ" value="2+" /> <interpretationCode codeSystem="local" code="*" /> <referenceRange> <observationRange> <text>NEG TO 1+</text> </observationRange> </referenceRange> </ observation> </component> <component> <observation moodCode= "EVN" classCode="OBS"> <templateId root="16.840.1.234282.08.03.22.4.2 " /> <id nullFlavor="NA" /> <code codeSystem="local" code= "RBCU" displayName="UA RBC" /> <statusCode code="completed" /> <effectiveTime value="[id number]" /> <value unit="rbc/hpf" xsi:type ="PQ" value="PACKED FIELD" /> <interpretationCode codeSystem="local" code="*" /> <referenceRange> <observationRange> <text>0 - 3</text> </observationRange> </referenceRange> </observation> </component> <component> <observation moodCode="EVN" classCode="OBS"> <templateId root= "[id number]" /> <id nullFlavor="NA" /> < code codeSystem="local" code="UAVOL" displayName="UA VOLUME FOR EXAM" /> <statusCode code="completed" /> <effectiveTime value="[id number]" /> <value unit="mL" xsi:type="PQ" value="12.0" /> < referenceRange> <observationRange> <text>(12mL STD)</ text> </observationRange> </referenceRange> </ observation> </component> <component> <observation moodCode= "EVN" classCode="OBS"> <templateId root="[id number] " /> <id nullFlavor="NA" /> <code codeSystem="local" code= "WBCU" displayName="UA WBC" /> <statusCode code="completed" /> <effectiveTime value="[id number]" /> <value unit="wbc/hpf" xsi:type ="PQ" value="2-5" /> <referenceRange> <observationRange> <text>0 - 5</text> </observationRange> </ referenceRange> </observation> </component> </organizer> </entry > <entry> <organizer moodCode="EVN" classCode="BATTERY"> <templateId root="216.840.1.230706.10..22.4.1" /> <id nullFlavor="NA" /> <code codeSystem="local" code="iCHEM8" displayName="CHEM/HEM PROFILE-BEDSIDE" /> <statusCode code="completed" /> <component> <observation moodCode= "EVN" classCode="OBS"> <templateId root="216.840.1.216174.10..22.4.2 " /> <id nullFlavor="NA" /> <code codeSystem="local" code="K" displayName="POTASSIUM" /> <statusCode code="completed" /> < effectiveTime value="[id number]" /> <value unit="mmol/L" xsi:type="PQ " value="3.8" /> <referenceRange> <observationRange> <text>3.5-5.3</text> </observationRange> </ referenceRange> </observation> </component> <component> <observation moodCode="EVN" classCode="OBS"> <templateId root= "16.840.1.725694.10..22.4.2" /> <id nullFlavor="NA" /> < code codeSystem="local" code="CMETHOD" displayName="METHOD" /> < statusCode code="completed" /> <effectiveTime value="" /> <value unit="" xsi:type="PQ" value="Bedside" /> < referenceRange> <observationRange> <text /> < /observationRange> </referenceRange> </observation> </ component> <component> <observation moodCode="EVN" classCode="OBS"> <templateId root="11.30.840.1.718533.08.03.22.4.2" /> <id nullFlavor="NA" /> <code codeSystem="local" code="GAP" displayName= "ANION GAP" /> <statusCode code="completed" /> <effectiveTime value="" /> <value unit="mmol/L" xsi:type="PQ" value="19" / > <referenceRange> <observationRange> <text>10- 20</text> </observationRange> </referenceRange> </ observation> </component> <component> <observation moodCode= "EVN" classCode="OBS"> <templateId root="840.1.358575.08.03.22.4.2 " /> <id nullFlavor="NA" /> <code codeSystem="local" code= "HMETHOD" displayName="METHOD" /> <statusCode code="completed" /> <effectiveTime value="" /> <value unit="" xsi:type="PQ " value="Bedside" /> <referenceRange> <observationRange> <text /> </observationRange> </referenceRange> </observation> </component> <component> <observation moodCode="EVN" classCode="OBS"> <templateId root= "11.30.840.1.843408...4.2" /> <id nullFlavor="NA" /> < code codeSystem="local" code="GLU" displayName="GLUCOSE" /> < statusCode code="completed" /> <effectiveTime value="" /> <value unit="mg/dL" xsi:type="PQ" value="83" /> < referenceRange> <observationRange> <text>70-99</text> </observationRange> </referenceRange> </observation> </component> <component> <observation moodCode="EVN" classCode= "OBS"> <templateId root="11.30.840.1.255739.10.20.22.4.2" /> < id nullFlavor="NA" /> <code codeSystem="local" code="BUN" displayName= "BLOOD UREA NITROGEN" /> <statusCode code="completed" /> < effectiveTime value="" /> <value unit="mg/dL" xsi:type="PQ " value="8" /> <referenceRange> <observationRange> <text>7-20</text> </observationRange> </referenceRange > </observation> </component> <component> <observation moodCode="EVN" classCode="OBS"> <templateId root= "11.30.840.1.722614.10..22.4.2" /> <id nullFlavor="NA" /> < code codeSystem="local" code="CREAT" displayName="CREATININE" /> < statusCode code="completed" /> <effectiveTime value="651776530784" /> <value unit="mg/dL" xsi:type="PQ" value="0.7" /> < referenceRange> <observationRange> <text>0.6-1.0</text> </observationRange> </referenceRange> </observation > </component> <component> <observation moodCode="EVN" classCode="OBS"> <templateId root="840.1.672469.10..22.4.2" /> <id nullFlavor="NA" /> <code codeSystem="local" code="HGBT" displayName="HEMOGLOBIN" /> <statusCode code="completed" /> < effectiveTime value="" /> <value unit="gm/dL" xsi:type="PQ " value="13.9" /> <referenceRange> <observationRange> <text>12.0-16.0</text> </observationRange> </ referenceRange> </observation> </component> <component> <observation moodCode="EVN" classCode="OBS"> <templateId root= "216.840.1.786626.10..22.4.2" /> <id nullFlavor="NA" /> < code codeSystem="local" code="HCTT" displayName="HEMATOCRIT" /> < statusCode code="completed" /> <effectiveTime value="" /> <value unit="%" xsi:type="PQ" value="41.0" /> < referenceRange> <observationRange> <text>37.0-47.0</text > </observationRange> </referenceRange> </observation > </component> <component> <observation moodCode="EVN" classCode="OBS"> <templateId root="216.840.1.808327.10..22.4.2" /> <id nullFlavor="NA" /> <code codeSystem="local" code="NA" displayName="SODIUM" /> <statusCode code="completed" /> < effectiveTime value="" /> <value unit="mmol/L" xsi:type="PQ " value="139" /> <referenceRange> <observationRange> <text>135-148</text> </observationRange> </ referenceRange> </observation> </component> <component> <observation moodCode="EVN" classCode="OBS"> <templateId root= "216.840.1.394627.10..22.4.2" /> <id nullFlavor="NA" /> < code codeSystem="local" code="CL" displayName="CHLORIDE" /> < statusCode code="completed" /> <effectiveTime value="" /> <value unit="mmol/L" xsi:type="PQ" value="104" /> < referenceRange> <observationRange> <text>98-110</text> </observationRange> </referenceRange> </observation> </component> <component> <observation moodCode="EVN" classCode ="OBS"> <templateId root="216.840.1.211126.10..4.2" /> < id nullFlavor="NA" /> <code codeSystem="local" code="CO2" displayName= "CARBON DIOXIDE" /> <statusCode code="completed" /> < effectiveTime value="" /> <value unit="mmol/L" xsi:type="PQ " value="21" /> <referenceRange> <observationRange> <text>21-32</text> </observationRange> </ referenceRange> </observation> </component> <component> <observation moodCode="EVN" classCode="OBS"> <templateId root= "16.840.1.735995.10..22.4.2" /> <id nullFlavor="NA" /> < code codeSystem="local" code="CAION" displayName="CALCIUM IONIZED" /> < statusCode code="completed" /> <effectiveTime value="" /> <value unit="mg/dL" xsi:type="PQ" value="4.7" /> < referenceRange> <observationRange> <text>4.5-5.3</text> </observationRange> </referenceRange> </observation > </component> </organizer> </entry> <entry> <organizer moodCode= "EVN" classCode="BATTERY"> <templateId root="840.1.699321.10...4.1 " /> <id nullFlavor="NA" /> <code codeSystem="local" code="HCGQNT" displayName="HCG QUANT INTACT" /> <statusCode code="completed" /> < component> <observation moodCode="EVN" classCode="OBS"> < templateId root="840.1.767087.08.03.22.4.2" /> <id nullFlavor="NA " /> <code codeSystem="local" code="HCGQNT" displayName="HCG QUANT INTACT" /> <statusCode code="completed" /> <effectiveTime value="289988976618" /> <value unit="mIU/mL" xsi:type="PQ" value="3906 " /> <interpretationCode codeSystem="local" code="*" /> < referenceRange> <observationRange> <text /> < /observationRange> </referenceRange> </observation> </ component> </organizer> </entry> <entry> <organizer moodCode="EVN" classCode="BATTERY"> <templateId root="11.30.840.1.895360..22.4.1" /> <id nullFlavor="NA" /> <code codeSystem="local" code="Z6406" displayName="Cytogenetics" /> <statusCode code="completed" /> < component> <observation moodCode="EVN" classCode="OBS"> < templateId root="11.30.840.1.373059.08.03.22.4.2" /> <id nullFlavor="NA " /> <code codeSystem="local" code="Z6406" displayName="Cytogenetics" / > <statusCode code="completed" /> <effectiveTime value= "457175952771" /> <value unit="" xsi:type="PQ" value="SEE IMAGE" /> <referenceRange> <observationRange> <text /> </observationRange> </referenceRange> </observation> </component> <component> <observation moodCode="EVN" classCode= "OBS"> <templateId root="11.30.840.1.966710.10.22.4.2" /> < id nullFlavor="NA" /> <code codeSystem="local" code="Z6406" displayName ="Cytogenetics" /> <statusCode code="completed" /> < effectiveTime value="644447946667" /> <value unit="NA" xsi:type="PQ" value="SEE IMAGE" /> <referenceRange> <observationRange> <text /> </observationRange> </referenceRange> </observation> </component> </organizer> </entry> <entry> < organizer moodCode="EVN" classCode="BATTERY"> <templateId root= "11.30.840.1.412615.10.22.4.1" /> <id nullFlavor="NA" /> <code codeSystem="local" code="CBCWD" displayName="CBC With Platelet and Differential " /> <statusCode code="completed" /> <component> <observation moodCode="EVN" classCode="OBS"> <templateId root= "11.30.840.1.470355.1022.4.2" /> <id nullFlavor="NA" /> < code codeSystem="local" code="ABASR" displayName="Absolute Basophils" /> <statusCode code="completed" /> <effectiveTime value="119822618290" /> <value unit="10*3" xsi:type="PQ" value="0.03" /> < referenceRange> <observationRange> <text>0.00-0.20</text > </observationRange> </referenceRange> </observation > </component> <component> <observation moodCode="EVN" classCode="OBS"> <templateId root="2.840.1.553827.22.4.2" /> <id nullFlavor="NA" /> <code codeSystem="local" code="AEOSR" displayName="Absolute Eosinophils" /> <statusCode code="completed" /> <effectiveTime value="863587259566" /> <value unit="10*3" xsi: type="PQ" value="0.71" /> <interpretationCode codeSystem="local" code= "*" /> <referenceRange> <observationRange> < text>0.00-0.50</text> </observationRange> </referenceRange> </observation> </component> <component> <observation moodCode="EVN" classCode="OBS"> <templateId root= "216.840.1.104417.22.4.2" /> <id nullFlavor="NA" /> < code codeSystem="local" code="ALYMR" displayName="Absolute Lymphocytes" /> <statusCode code="completed" /> <effectiveTime value="830108304081 " /> <value unit="10*3" xsi:type="PQ" value="2.35" /> < referenceRange> <observationRange> <text>0.80-3.30</text > </observationRange> </referenceRange> </observation > </component> <component> <observation moodCode="EVN" classCode="OBS"> <templateId root="11.30.840.1.586360.22.4.2" /> <id nullFlavor="NA" /> <code codeSystem="local" code="AMONR" displayName="Absolute Monocytes" /> <statusCode code="completed" /> <effectiveTime value="338105985386" /> <value unit="10*3" xsi: type="PQ" value="0.41" /> <referenceRange> <observationRange > <text>0.30-1.00</text> </observationRange> </ referenceRange> </observation> </component> <component> <observation moodCode="EVN" classCode="OBS"> <templateId root= "2.16.840.1.271358.08.03.22.4.2" /> <id nullFlavor="NA" /> < code codeSystem="local" code="ASEGR" displayName="Absolute Neutrophils" /> <statusCode code="completed" /> <effectiveTime value="018589359012 " /> <value unit="10*3" xsi:type="PQ" value="3.37" /> < referenceRange> <observationRange> <text>1.90-7.00</text > </observationRange> </referenceRange> </observation > </component> <component> <observation moodCode="EVN" classCode="OBS"> <templateId root="216.840.1.982526..22.4.2" /> <id nullFlavor="NA" /> <code codeSystem="local" code="BASOR" displayName="Basophils" /> <statusCode code="completed" /> < effectiveTime value="404327715073" /> <value unit="%" xsi:type="PQ " value="0" /> <referenceRange> <observationRange> <text>0-2</text> </observationRange> </referenceRange> </observation> </component> <component> <observation moodCode="EVN" classCode="OBS"> <templateId root= "216.840.1.920375.10.22.4.2" /> <id nullFlavor="NA" /> < code codeSystem="local" code="EOSR" displayName="Eosinophils" /> < statusCode code="completed" /> <effectiveTime value="562693800666" /> <value unit="%" xsi:type="PQ" value="10" /> < interpretationCode codeSystem="local" code="*" /> <referenceRange> <observationRange> <text>0-4</text> </ observationRange> </referenceRange> </observation> </ component> <component> <observation moodCode="EVN" classCode="OBS"> <templateId root="11.30.840.1.334612.08.03.224.2" /> <id nullFlavor="NA" /> <code codeSystem="local" code="HCT" displayName="HCT " /> <statusCode code="completed" /> <effectiveTime value= "988053985202" /> <value unit="%" xsi:type="PQ" value="33.8" /> <interpretationCode codeSystem="local" code="*" /> < referenceRange> <observationRange> <text>37.0-47.0</text > </observationRange> </referenceRange> </observation > </component> <component> <observation moodCode="EVN" classCode="OBS"> <templateId root="11.30.840.1.190577.10.22.4.2" /> <id nullFlavor="NA" /> <code codeSystem="local" code="HGB" displayName="HGB" /> <statusCode code="completed" /> < effectiveTime value="911435650633" /> <value unit="g/dL" xsi:type="PQ" value="11.2" /> <interpretationCode codeSystem="local" code="*" /> <referenceRange> <observationRange> <text>12.0- 16.0</text> </observationRange> </referenceRange> </ observation> </component> <component> <observation moodCode= "EVN" classCode="OBS"> <templateId root="216.840.1.979517.10..4.2 " /> <id nullFlavor="NA" /> <code codeSystem="local" code= "IMGA" displayName="Immature Granulocytes" /> <statusCode code= "completed" /> <effectiveTime value="709191623711" /> <value unit="%" xsi:type="PQ" value="0.1" /> <referenceRange> < observationRange> <text>0.0-1.0</text> </ observationRange> </referenceRange> </observation> </ component> <component> <observation moodCode="EVN" classCode="OBS"> <templateId root="16.840.1.472701.10.4.2" /> <id nullFlavor="NA" /> <code codeSystem="local" code="LYMPR" displayName= "Lymphocytes" /> <statusCode code="completed" /> < effectiveTime value="666764997649" /> <value unit="%" xsi:type="PQ " value="34" /> <referenceRange> <observationRange> <text>20-46</text> </observationRange> </ referenceRange> </observation> </component> <component> <observation moodCode="EVN" classCode="OBS"> <templateId root= "16.840.1.380794.22.4.2" /> <id nullFlavor="NA" /> < code codeSystem="local" code="MCH" displayName="MCH" /> <statusCode code="completed" /> <effectiveTime value="376182536646" /> < value unit="pg" xsi:type="PQ" value="30.6" /> <referenceRange> <observationRange> <text>27.0-32.0</text> </ observationRange> </referenceRange> </observation> </ component> <component> <observation moodCode="EVN" classCode="OBS"> <templateId root="2.16.840.1.475902.08.03.22.4.2" /> <id nullFlavor="NA" /> <code codeSystem="local" code="MCHC" displayName= "MCHC" /> <statusCode code="completed" /> <effectiveTime value ="416281186304" /> <value unit="g/dL" xsi:type="PQ" value="33.1" /> <referenceRange> <observationRange> <text>32.0- 36.0</text> </observationRange> </referenceRange> </ observation> </component> <component> <observation moodCode= "EVN" classCode="OBS"> <templateId root="2.16.840.1.781638.08.03.22.4.2 " /> <id nullFlavor="NA" /> <code codeSystem="local" code="MCV " displayName="MCV" /> <statusCode code="completed" /> < effectiveTime value="362127613102" /> <value unit="fL" xsi:type="PQ" value="92.3" /> <referenceRange> <observationRange> <text>82.0-99.0</text> </observationRange> </ referenceRange> </observation> </component> <component> <observation moodCode="EVN" classCode="OBS"> <templateId root= "11.30.840.1.083055.10.20.22.4.2" /> <id nullFlavor="NA" /> < code codeSystem="local" code="MONOR" displayName="Monocytes" /> < statusCode code="completed" /> <effectiveTime value="581935931701" /> <value unit="%" xsi:type="PQ" value="6" /> <referenceRange > <observationRange> <text>4-11</text> </ observationRange> </referenceRange> </observation> </ component> <component> <observation moodCode="EVN" classCode="OBS"> <templateId root="11.30.840.1.718058.10.2022.4.2" /> <id nullFlavor="NA" /> <code codeSystem="local" code="MPV" displayName="MPV " /> <statusCode code="completed" /> <effectiveTime value= "766620520583" /> <value unit="fL" xsi:type="PQ" value="9.9" /> <referenceRange> <observationRange> <text>9.4-12.4</ text> </observationRange> </referenceRange> </ observation> </component> <component> <observation moodCode= "EVN" classCode="OBS"> <templateId root="11.30.840.1.430495.10.20.22.4.2 " /> <id nullFlavor="NA" /> <code codeSystem="local" code= "SEGR" displayName="Neutrophils" /> <statusCode code="completed" /> <effectiveTime value="166388315005" /> <value unit="%" xsi: type="PQ" value="49" /> <interpretationCode codeSystem="local" code="* " /> <referenceRange> <observationRange> <text> 51-75</text> </observationRange> </referenceRange> </ observation> </component> <component> <observation moodCode= "EVN" classCode="OBS"> <templateId root="11.30.840.1.348337.10.20.22.4.2 " /> <id nullFlavor="NA" /> <code codeSystem="local" code="PLT " displayName="Platelet Count" /> <statusCode code="completed" /> <effectiveTime value="066000127585" /> <value unit="K/uL" xsi:type ="PQ" value="308" /> <referenceRange> <observationRange> <text>150-400</text> </observationRange> </ referenceRange> </observation> </component> <component> <observation moodCode="EVN" classCode="OBS"> <templateId root= "840.1.928641....4.2" /> <id nullFlavor="NA" /> < code codeSystem="local" code="RBC" displayName="RBC" /> <statusCode code="completed" /> <effectiveTime value="366364444191" /> < value unit="10*6/uL" xsi:type="PQ" value="3.66" /> <interpretationCode codeSystem="local" code="*" /> <referenceRange> < observationRange> <text>4.00-5.20</text> </ observationRange> </referenceRange> </observation> </ component> <component> <observation moodCode="EVN" classCode="OBS"> <templateId root="11.30.840.1.638631.10.20.22.4.2" /> <id nullFlavor="NA" /> <code codeSystem="local" code="RDW" displayName="RDW " /> <statusCode code="completed" /> <effectiveTime value= "573479922455" /> <value unit="%" xsi:type="PQ" value="12.8" /> <referenceRange> <observationRange> <text>11.5- 14.5</text> </observationRange> </referenceRange> </ observation> </component> <component> <observation moodCode= "EVN" classCode="OBS"> <templateId root="11.30.840.1.371303.10..22.4.2 " /> <id nullFlavor="NA" /> <code codeSystem="local" code= "WBCIR" displayName="WBC" /> <statusCode code="completed" /> < effectiveTime value="776375651530" /> <value unit="K/uL" xsi:type="PQ" value="6.9" /> <referenceRange> <observationRange> <text>4.8-10.8</text> </observationRange> </ referenceRange> </observation> </component> </organizer> </entry > <entry> <organizer moodCode="EVN" classCode="BATTERY"> <templateId root="11.30.840.1.716402.10..22.4.1" /> <id nullFlavor="NA" /> <code codeSystem="local" code="HCGQ" displayName="HCG Quantitative" /> < statusCode code="completed" /> <component> <observation moodCode= "EVN" classCode="OBS"> <templateId root="11.30.840.1.289873.10..22.4.2 " /> <id nullFlavor="NA" /> <code codeSystem="local" code= "HCGQ" displayName="HCG Quantitative" /> <statusCode code="completed" / > <effectiveTime value="012334515395" /> <value unit="mIU/mL" xsi:type="PQ" value="1174" /> <referenceRange> < observationRange> <text /> </observationRange> </referenceRange> </observation> </component> </organizer> </ entry> <entry> <organizer moodCode="EVN" classCode="BATTERY"> < templateId root="16.840.1.277282.10..22.4.1" /> <id nullFlavor="NA" /> <code codeSystem="local" code="PTPTT" displayName="PTT/PT (INR)" /> < statusCode code="completed" /> <component> <observation moodCode= "EVN" classCode="OBS"> <templateId root="11.30.840.1.694315.10..22.4.2 " /> <id nullFlavor="NA" /> <code codeSystem="local" code="INR " displayName="INR" /> <statusCode code="completed" /> < effectiveTime value="669700972056" /> <value unit="NA" xsi:type="PQ" value="1.1" /> <referenceRange> <observationRange> <text>0.9-1.2</text> </observationRange> </ referenceRange> </observation> </component> <component> <observation moodCode="EVN" classCode="OBS"> <templateId root= "11.30.840.1.803328.10..22.4.2" /> <id nullFlavor="NA" /> < code codeSystem="local" code="PTT" displayName="PTT" /> <statusCode code="completed" /> <effectiveTime value="052178643700" /> < value unit="seconds" xsi:type="PQ" value="30.9" /> <referenceRange> <observationRange> <text>25.0-35.0</text> </ observationRange> </referenceRange> </observation> </ component> </organizer> </entry> <entry> <organizer moodCode="EVN" classCode="BATTERY"> <templateId root="16.840.1.923374.10..22.4.1" /> <id nullFlavor="NA" /> <code codeSystem="local" code="CBCND" displayName="CBC With Platelet No Differential" /> <statusCode code= "completed" /> <component> <observation moodCode="EVN" classCode= "OBS"> <templateId root="2.840.1.327398.10..4.2" /> < id nullFlavor="NA" /> <code codeSystem="local" code="HCT" displayName= "HCT" /> <statusCode code="completed" /> <effectiveTime value= "" /> <value unit="%" xsi:type="PQ" value="29.3" /> <interpretationCode codeSystem="local" code="*" /> < referenceRange> <observationRange> <text>37.0-47.0</text > </observationRange> </referenceRange> </observation > </component> <component> <observation moodCode="EVN" classCode="OBS"> <templateId root="11.30.840.1.934556.08.03.22.4.2" /> <id nullFlavor="NA" /> <code codeSystem="local" code="HGB" displayName="HGB" /> <statusCode code="completed" /> < effectiveTime value="" /> <value unit="g/dL" xsi:type="PQ" value="9.5" /> <interpretationCode codeSystem="local" code="*" /> <referenceRange> <observationRange> <text>12.0-16.0 </text> </observationRange> </referenceRange> </ observation> </component> <component> <observation moodCode= "EVN" classCode="OBS"> <templateId root="216.840.1.613179.10.2022.4.2 " /> <id nullFlavor="NA" /> <code codeSystem="local" code="MCH " displayName="MCH" /> <statusCode code="completed" /> < effectiveTime value="" /> <value unit="pg" xsi:type="PQ" value="30.5" /> <referenceRange> <observationRange> <text>27.0-32.0</text> </observationRange> </ referenceRange> </observation> </component> <component> <observation moodCode="EVN" classCode="OBS"> <templateId root= "11.30.840.1.551647.08.03.22.4.2" /> <id nullFlavor="NA" /> < code codeSystem="local" code="MCHC" displayName="MCHC" /> <statusCode code="completed" /> <effectiveTime value="" /> < value unit="g/dL" xsi:type="PQ" value="32.4" /> <referenceRange> <observationRange> <text>32.0-36.0</text> </ observationRange> </referenceRange> </observation> </ component> <component> <observation moodCode="EVN" classCode="OBS"> <templateId root="216.840.1.616608.2022.4.2" /> <id nullFlavor="NA" /> <code codeSystem="local" code="MCV" displayName="MCV " /> <statusCode code="completed" /> <effectiveTime value= "" /> <value unit="fL" xsi:type="PQ" value="94.2" /> <referenceRange> <observationRange> <text>82.0-99.0< /text> </observationRange> </referenceRange> </ observation> </component> <component> <observation moodCode= "EVN" classCode="OBS"> <templateId root="216.840.1.892744.1022.4.2 " /> <id nullFlavor="NA" /> <code codeSystem="local" code="MPV " displayName="MPV" /> <statusCode code="completed" /> < effectiveTime value="035751817600" /> <value unit="fL" xsi:type="PQ" value="9.4" /> <referenceRange> <observationRange> <text>9.4-12.4</text> </observationRange> </ referenceRange> </observation> </component> <component> <observation moodCode="EVN" classCode="OBS"> <templateId root= "11.30.840.1.314797.08.03.22.4.2" /> <id nullFlavor="NA" /> < code codeSystem="local" code="PLT" displayName="Platelet Count" /> < statusCode code="completed" /> <effectiveTime value="861155263698" /> <value unit="K/uL" xsi:type="PQ" value="239" /> < referenceRange> <observationRange> <text>150-400</text> </observationRange> </referenceRange> </observation > </component> <component> <observation moodCode="EVN" classCode="OBS"> <templateId root="11.30.840.1.068141.10.2022.4.2" /> <id nullFlavor="NA" /> <code codeSystem="local" code="RBC" displayName="RBC" /> <statusCode code="completed" /> < effectiveTime value="282832436466" /> <value unit="10*6/uL" xsi:type= "PQ" value="3.11" /> <interpretationCode codeSystem="local" code="*" / > <referenceRange> <observationRange> <text> 4.00-5.20</text> </observationRange> </referenceRange> </observation> </component> <component> <observation moodCode="EVN" classCode="OBS"> <templateId root= "2.16.840.1.383018.10.20.22.4.2" /> <id nullFlavor="NA" /> < code codeSystem="local" code="RDW" displayName="RDW" /> <statusCode code="completed" /> <effectiveTime value="233325628019" /> < value unit="%" xsi:type="PQ" value="12.9" /> <referenceRange> <observationRange> <text>11.5-14.5</text> </ observationRange> </referenceRange> </observation> </ component> <component> <observation moodCode="EVN" classCode="OBS"> <templateId root="2.16.840.1.948395.10.20.22.4.2" /> <id nullFlavor="NA" /> <code codeSystem="local" code="WBCIR" displayName= "WBC" /> <statusCode code="completed" /> <effectiveTime value= "[id number]" /> <value unit="K/uL" xsi:type="PQ" value="5.4" /> <referenceRange> <observationRange> <text>4.8-10.8< /text> </observationRange> </referenceRange> </ observation> </component> </organizer> </entry> <entry> <organizer moodCode="EVN" classCode="BATTERY"> <templateId root= "11.30.840.1.932481.10..22.4.1" /> <id nullFlavor="NA" /> <code codeSystem="local" code="CBCND" displayName="CBC With Platelet No Differential" /> <statusCode code="completed" /> <component> <observation moodCode="EVN" classCode="OBS"> <templateId root= "11.30.840.1.923111.10..4.2" /> <id nullFlavor="NA" /> < code codeSystem="local" code="HCT" displayName="HCT" /> <statusCode code="completed" /> <effectiveTime value="" /> < value unit="%" xsi:type="PQ" value="28.9" /> <interpretationCode codeSystem="local" code="*" /> <referenceRange> < observationRange> <text>37.0-47.0</text> </ observationRange> </referenceRange> </observation> </ component> <component> <observation moodCode="EVN" classCode="OBS"> <templateId root="11.30.840.1.763767.10...4.2" /> <id nullFlavor="NA" /> <code codeSystem="local" code="HGB" displayName="HGB " /> <statusCode code="completed" /> <effectiveTime value= "" /> <value unit="g/dL" xsi:type="PQ" value="9.4" /> <interpretationCode codeSystem="local" code="*" /> <referenceRange > <observationRange> <text>12.0-16.0</text> < /observationRange> </referenceRange> </observation> </ component> <component> <observation moodCode="EVN" classCode="OBS"> <templateId root="216.840.1.227920.10.20.22.4.2" /> <id nullFlavor="NA" /> <code codeSystem="local" code="MCH" displayName="MCH " /> <statusCode code="completed" /> <effectiveTime value= "" /> <value unit="pg" xsi:type="PQ" value="30.4" /> <referenceRange> <observationRange> <text>27.0-32.0< /text> </observationRange> </referenceRange> </ observation> </component> <component> <observation moodCode= "EVN" classCode="OBS"> <templateId root="16.840.1.419213.10..4.2 " /> <id nullFlavor="NA" /> <code codeSystem="local" code= "MCHC" displayName="MCHC" /> <statusCode code="completed" /> < effectiveTime value="" /> <value unit="g/dL" xsi:type="PQ" value="32.5" /> <referenceRange> <observationRange> <text>32.0-36.0</text> </observationRange> </ referenceRange> </observation> </component> <component> <observation moodCode="EVN" classCode="OBS"> <templateId root= "11.30.840.1.355994.10..22.4.2" /> <id nullFlavor="NA" /> < code codeSystem="local" code="MCV" displayName="MCV" /> <statusCode code="completed" /> <effectiveTime value="" /> < value unit="fL" xsi:type="PQ" value="93.5" /> <referenceRange> <observationRange> <text>82.0-99.0</text> </ observationRange> </referenceRange> </observation> </ component> <component> <observation moodCode="EVN" classCode="OBS"> <templateId root="216.840.1.832870.10.4.2" /> <id nullFlavor="NA" /> <code codeSystem="local" code="MPV" displayName="MPV " /> <statusCode code="completed" /> <effectiveTime value= "" /> <value unit="fL" xsi:type="PQ" value="9.7" /> <referenceRange> <observationRange> <text>9.4-12.4</ text> </observationRange> </referenceRange> </ observation> </component> <component> <observation moodCode= "EVN" classCode="OBS"> <templateId root="11.30.840.1.341154.08.03.22.4.2 " /> <id nullFlavor="NA" /> <code codeSystem="local" code="PLT " displayName="Platelet Count" /> <statusCode code="completed" /> <effectiveTime value="" /> <value unit="K/uL" xsi:type ="PQ" value="225" /> <referenceRange> <observationRange> <text>150-400</text> </observationRange> </ referenceRange> </observation> </component> <component> <observation moodCode="EVN" classCode="OBS"> <templateId root= "16.840.1.045489.08.03.22.4.2" /> <id nullFlavor="NA" /> < code codeSystem="local" code="RBC" displayName="RBC" /> <statusCode code="completed" /> <effectiveTime value="" /> < value unit="10*6/uL" xsi:type="PQ" value="3.09" /> <interpretationCode codeSystem="local" code="*" /> <referenceRange> < observationRange> <text>4.00-5.20</text> </ observationRange> </referenceRange> </observation> </ component> <component> <observation moodCode="EVN" classCode="OBS"> <templateId root="216.840.1.597681.10..22.4.2" /> <id nullFlavor="NA" /> <code codeSystem="local" code="RDW" displayName="RDW " /> <statusCode code="completed" /> <effectiveTime value= "996154156502" /> <value unit="%" xsi:type="PQ" value="12.6" /> <referenceRange> <observationRange> <text>11.5- 14.5</text> </observationRange> </referenceRange> </ observation> </component> <component> <observation moodCode= "EVN" classCode="OBS"> <templateId root="216.840.1.621972..22.4.2 " /> <id nullFlavor="NA" /> <code codeSystem="local" code= "WBCIR" displayName="WBC" /> <statusCode code="completed" /> < effectiveTime value="" /> <value unit="K/uL" xsi:type="PQ" value="5.0" /> <referenceRange> <observationRange> <text>4.8-10.8</text> </observationRange> </ referenceRange> </observation> </component> </organizer> </entry > <entry> <organizer moodCode="EVN" classCode="BATTERY"> <templateId root="2.16.840.1.253513...4.1" /> <id nullFlavor="NA" /> <code codeSystem="local" code="GLUN" displayName="Glucose NPT" /> <statusCode code="completed" /> <component> <observation moodCode="EVN" classCode="OBS"> <templateId root="11.30.840.1.174225.08.03.22.4.2" /> <id nullFlavor="NA" /> <code codeSystem="local" code="GLUN" displayName="Glucose NPT" /> <statusCode code="completed" /> <effectiveTime value="950682503986" /> <value unit="mg/dL" xsi:type="PQ " value="84" /> <referenceRange> <observationRange> <text>70-100</text> </observationRange> </ referenceRange> </observation> </component> </organizer> </entry > <entry> <organizer moodCode="EVN" classCode="BATTERY"> <templateId root="11.30.840.1.278107.08.03.22.4.1" /> <id nullFlavor="NA" /> <code codeSystem="local" code="BMP" displayName="Basic Metabolic Panel (BMP)" /> <statusCode code="completed" /> <component> <observation moodCode= "EVN" classCode="OBS"> <templateId root="11.30.840.1.309121.08.03.22.4.2 " /> <id nullFlavor="NA" /> <code codeSystem="local" code= "AGAP" displayName="Anion Gap" /> <statusCode code="completed" /> <effectiveTime value="045864785359" /> <value unit="NA" xsi:type= "PQ" value="9" /> <referenceRange> <observationRange> <text>3-20</text> </observationRange> </ referenceRange> </observation> </component> <component> <observation moodCode="EVN" classCode="OBS"> <templateId root= "216.840.1.085797.10.22.4.2" /> <id nullFlavor="NA" /> < code codeSystem="local" code="BUN" displayName="BUN" /> <statusCode code="completed" /> <effectiveTime value="408347468633" /> < value unit="mg/dL" xsi:type="PQ" value="8" /> <referenceRange> <observationRange> <text>4-20</text> </ observationRange> </referenceRange> </observation> </ component> <component> <observation moodCode="EVN" classCode="OBS"> <templateId root="16.840.1.545343.08.03.22.4.2" /> <id nullFlavor="NA" /> <code codeSystem="local" code="CA" displayName= "Calcium" /> <statusCode code="completed" /> <effectiveTime value="279243440199" /> <value unit="mg/dL" xsi:type="PQ" value="8.8" / > <referenceRange> <observationRange> <text>8.6 -10.0</text> </observationRange> </referenceRange> </ observation> </component> <component> <observation moodCode= "EVN" classCode="OBS"> <templateId root="11.30.840.1.184143.10.22.4.2 " /> <id nullFlavor="NA" /> <code codeSystem="local" code="CL " displayName="Chloride" /> <statusCode code="completed" /> < effectiveTime value="743114501948" /> <value unit="mEq/L" xsi:type="PQ " value="108" /> <referenceRange> <observationRange> <text>99-109</text> </observationRange> </ referenceRange> </observation> </component> <component> <observation moodCode="EVN" classCode="OBS"> <templateId root= "216.840.1.228997.10..4.2" /> <id nullFlavor="NA" /> < code codeSystem="local" code="CO2" displayName="CO2" /> <statusCode code="completed" /> <effectiveTime value="812629855570" /> < value unit="mEq/L" xsi:type="PQ" value="22" /> <referenceRange> <observationRange> <text>22-32</text> </ observationRange> </referenceRange> </observation> </ component> <component> <observation moodCode="EVN" classCode="OBS"> <templateId root="11.30.840.1.888216.08.03.22.4.2" /> <id nullFlavor="NA" /> <code codeSystem="local" code="CREAT" displayName= "Creatinine" /> <statusCode code="completed" /> < effectiveTime value="633544617481" /> <value unit="mg/dL" xsi:type="PQ " value="0.77" /> <referenceRange> <observationRange> <text>0.44-1.03</text> </observationRange> </ referenceRange> </observation> </component> <component> <observation moodCode="EVN" classCode="OBS"> <templateId root= "11.30.840.1.478366.10..4.2" /> <id nullFlavor="NA" /> < code codeSystem="local" code="GLU" displayName="Glucose" /> < statusCode code="completed" /> <effectiveTime value="689571210572" /> <value unit="mg/dL" xsi:type="PQ" value="104" /> < interpretationCode codeSystem="local" code="*" /> <referenceRange> <observationRange> <text>70-100</text> </ observationRange> </referenceRange> </observation> </ component> <component> <observation moodCode="EVN" classCode="OBS"> <templateId root="16.840.1.831953.08.03.22.4.2" /> <id nullFlavor="NA" /> <code codeSystem="local" code="K" displayName= "Potassium" /> <statusCode code="completed" /> <effectiveTime value="687674480061" /> <value unit="mEq/L" xsi:type="PQ" value="3.6" / > <referenceRange> <observationRange> <text>3.6 -5.1</text> </observationRange> </referenceRange> </ observation> </component> <component> <observation moodCode= "EVN" classCode="OBS"> <templateId root="11.30.840.1.481737.08.03.22.4.2 " /> <id nullFlavor="NA" /> <code codeSystem="local" code="NA " displayName="Sodium" /> <statusCode code="completed" /> < effectiveTime value="193059038741" /> <value unit="mEq/L" xsi:type="PQ " value="139" /> <referenceRange> <observationRange> <text>136-144</text> </observationRange> </ referenceRange> </observation> </component> </organizer> </entry > <entry> <organizer moodCode="EVN" classCode="BATTERY"> <templateId root="16.840.1.215928.08.03.22.4.1" /> <id nullFlavor="NA" /> <code codeSystem="local" code="GFR" displayName="eGFR" /> <statusCode code= "completed" /> <component> <observation moodCode="EVN" classCode= "OBS"> <templateId root="16.840.1.841659.1022.4.2" /> < id nullFlavor="NA" /> <code codeSystem="local" code="GFR" displayName= "eGFR" /> <statusCode code="completed" /> <effectiveTime value ="624276281819" /> <value unit="NA" xsi:type="PQ" value=">60" /> <referenceRange> <observationRange> <text>>60< /text> </observationRange> </referenceRange> </ observation> </component> </organizer> </entry> <entry> <organizer moodCode="EVN" classCode="BATTERY"> <templateId root= "11.30.840.1.340426.08.03.22.4.1" /> <id nullFlavor="NA" /> <code codeSystem="local" code="UA" displayName="Urinalysis with reflex microscopic" / > <statusCode code="completed" /> <component> <observation moodCode="EVN" classCode="OBS"> <templateId root= "11.30.840.1.444605.10.4.2" /> <id nullFlavor="NA" /> < code codeSystem="local" code="UAPP" displayName="Appearance" /> < statusCode code="completed" /> <effectiveTime value="856573389432" /> <value unit="NA" xsi:type="PQ" value="Cloudy" /> < interpretationCode codeSystem="local" code="*" /> <referenceRange> <observationRange> <text /> </observationRange> </referenceRange> </observation> </component> < component> <observation moodCode="EVN" classCode="OBS"> < templateId root="16.840.1.922467.08.03.22.4.2" /> <id nullFlavor="NA " /> <code codeSystem="local" code="UBIL" displayName="Bilirubin" /> <statusCode code="completed" /> <effectiveTime value= "932308920238" /> <value unit="NA" xsi:type="PQ" value="Negative" /> <referenceRange> <observationRange> <text> Negative</text> </observationRange> </referenceRange> </observation> </component> <component> <observation moodCode ="EVN" classCode="OBS"> <templateId root= "11.30.840.1.541755.08.03.22.4.2" /> <id nullFlavor="NA" /> < code codeSystem="local" code="UBLD" displayName="Blood" /> <statusCode code="completed" /> <effectiveTime value="" /> < value unit="NA" xsi:type="PQ" value="Negative" /> <referenceRange> <observationRange> <text>Negative</text> </ observationRange> </referenceRange> </observation> </ component> <component> <observation moodCode="EVN" classCode="OBS"> <templateId root="11.30.840.1.618833.08.03.22.4.2" /> <id nullFlavor="NA" /> <code codeSystem="local" code="UCOLR" displayName= "Color" /> <statusCode code="completed" /> <effectiveTime value="607661977971" /> <value unit="NA" xsi:type="PQ" value="Yellow" / > <referenceRange> <observationRange> <text /> </observationRange> </referenceRange> </observation > </component> <component> <observation moodCode="EVN" classCode="OBS"> <templateId root="16.840.1.131832.10.4.2" /> <id nullFlavor="NA" /> <code codeSystem="local" code="UGLU" displayName="Glucose, Urine" /> <statusCode code="completed" /> <effectiveTime value="" /> <value unit="" xsi:type="PQ" value="Negative" /> <referenceRange> <observationRange> <text>Negative</text> </observationRange> </ referenceRange> </observation> </component> <component> <observation moodCode="EVN" classCode="OBS"> <templateId root= "11.30.840.1.093199.08.03.22.4.2" /> <id nullFlavor="NA" /> < code codeSystem="local" code="UKET" displayName="Ketones" /> < statusCode code="completed" /> <effectiveTime value="" /> <value unit="" xsi:type="PQ" value="Negative" /> < referenceRange> <observationRange> <text>Negative</text > </observationRange> </referenceRange> </observation > </component> <component> <observation moodCode="EVN" classCode="OBS"> <templateId root="11.30.840.1.653108.10.4.2" /> <id nullFlavor="NA" /> <code codeSystem="local" code="ULEU" displayName="Leukocyte Esterase" /> <statusCode code="completed" /> <effectiveTime value="" /> <value unit="NA" xsi:type ="PQ" value="Negative" /> <referenceRange> <observationRange > <text>Negative</text> </observationRange> </ referenceRange> </observation> </component> <component> <observation moodCode="EVN" classCode="OBS"> <templateId root= "16.840.1.793649.10..4.2" /> <id nullFlavor="NA" /> < code codeSystem="local" code="UNIT" displayName="Nitrites" /> < statusCode code="completed" /> <effectiveTime value="674054375992" /> <value unit="NA" xsi:type="PQ" value="Negative" /> < referenceRange> <observationRange> <text>Negative</text > </observationRange> </referenceRange> </observation > </component> <component> <observation moodCode="EVN" classCode="OBS"> <templateId root="11.30.840.1.796238.08.03.22.4.2" /> <id nullFlavor="NA" /> <code codeSystem="local" code="UPH" displayName="pH" /> <statusCode code="completed" /> < effectiveTime value="512839893787" /> <value unit="NA" xsi:type="PQ" value="7.0" /> <referenceRange> <observationRange> <text>5.0-8.0</text> </observationRange> </ referenceRange> </observation> </component> <component> <observation moodCode="EVN" classCode="OBS"> <templateId root= "11.30.840.1.946854.10.4.2" /> <id nullFlavor="NA" /> < code codeSystem="local" code="UPRO" displayName="Protein" /> < statusCode code="completed" /> <effectiveTime value="751784520804" /> <value unit="NA" xsi:type="PQ" value="Negative" /> < referenceRange> <observationRange> <text>Negative</text > </observationRange> </referenceRange> </observation > </component> <component> <observation moodCode="EVN" classCode="OBS"> <templateId root="216.840.1.609563.10..4.2" /> <id nullFlavor="NA" /> <code codeSystem="local" code="USPG" displayName="Specific [place]" /> <statusCode code="completed" /> <effectiveTime value="158696121258" /> <value unit="NA" xsi:type= "PQ" value="1.020" /> <referenceRange> <observationRange> <text>1.003-1.030</text> </observationRange> </ referenceRange> </observation> </component> <component> <observation moodCode="EVN" classCode="OBS"> <templateId root= "11.30.840.1.790802.08.03.22.4.2" /> <id nullFlavor="NA" /> < code codeSystem="local" code="UTYP" displayName="UA Collection type" /> <statusCode code="completed" /> <effectiveTime value="441611213343" / > <value unit="NA" xsi:type="PQ" value="Clean Catch" /> < referenceRange> <observationRange> <text /> < /observationRange> </referenceRange> </observation> </ component> <component> <observation moodCode="EVN" classCode="OBS"> <templateId root="11.30.840.1.466434.08.03.22.4.2" /> <id nullFlavor="NA" /> <code codeSystem="local" code="UURO" displayName= "Urobilinogen" /> <statusCode code="completed" /> < effectiveTime value="110264429289" /> <value unit="mg/dL" xsi:type="PQ " value="Negative" /> <referenceRange> <observationRange> <text><1.0</text> </observationRange> </ referenceRange> </observation> </component> </organizer> </entry > <entry> <organizer moodCode="EVN" classCode="BATTERY"> <templateId root="2.16.840.1.958078.10.20.22.4.1" /> <id nullFlavor="NA" /> <code codeSystem="local" code="PREGN" displayName=" Screen, Urine NPT" /> <statusCode code="completed" /> <component> <observation moodCode ="EVN" classCode="OBS"> <templateId root= "2.16.840.1.808273.10..22.4.2" /> <id nullFlavor="NA" /> < code codeSystem="local" code="PREGN" displayName=" Screen, Urine NPT" / > <statusCode code="completed" /> <effectiveTime value= "218825834171" /> <value unit="NA" xsi:type="PQ" value="Negative" /> <referenceRange> <observationRange> <text /> </observationRange> </referenceRange> </observation> </component> </organizer> </entry> <entry> <organizer moodCode="EVN " classCode="BATTERY"> <templateId root="2.16.840.1.721462.10.20.22.4.1" / > <id nullFlavor="NA" /> <code codeSystem="local" code="CBCWD" displayName="CBC With Platelet and Differential" /> <statusCode code= "completed" /> <component> <observation moodCode="EVN" classCode= "OBS"> <templateId root="11.30.840.1.635520.10...4.2" /> < id nullFlavor="NA" /> <code codeSystem="local" code="ABASR" displayName ="Absolute Basophils" /> <statusCode code="completed" /> < effectiveTime value="582408531813" /> <value unit="10*3/uL" xsi:type= "PQ" value="0.03" /> <referenceRange> <observationRange> <text>0.00-0.20</text> </observationRange> </ referenceRange> </observation> </component> <component> <observation moodCode="EVN" classCode="OBS"> <templateId root= "11.30.840.1.329919.08.03.22.4.2" /> <id nullFlavor="NA" /> < code codeSystem="local" code="AEOSR" displayName="Absolute Eosinophils" /> <statusCode code="completed" /> <effectiveTime value="917163107347 " /> <value unit="10*3/uL" xsi:type="PQ" value="0.31" /> < referenceRange> <observationRange> <text>0.00-0.50</text > </observationRange> </referenceRange> </observation > </component> <component> <observation moodCode="EVN" classCode="OBS"> <templateId root="11.30.840.1.196469.10.20.4.2" /> <id nullFlavor="NA" /> <code codeSystem="local" code="ALYMR" displayName="Absolute Lymphocytes" /> <statusCode code="completed" /> <effectiveTime value="071160424912" /> <value unit="10*3/uL" xsi:type="PQ" value="1.67" /> <referenceRange> < observationRange> <text>0.80-3.30</text> </ observationRange> </referenceRange> </observation> </ component> <component> <observation moodCode="EVN" classCode="OBS"> <templateId root="216.840.1.342889.10.20.22.4.2" /> <id nullFlavor="NA" /> <code codeSystem="local" code="AMONR" displayName= "Absolute Monocytes" /> <statusCode code="completed" /> < effectiveTime value="461573935426" /> <value unit="10*3/uL" xsi:type= "PQ" value="0.41" /> <referenceRange> <observationRange> <text>0.30-1.00</text> </observationRange> </ referenceRange> </observation> </component> <component> <observation moodCode="EVN" classCode="OBS"> <templateId root= "840.1.808104.2022.4.2" /> <id nullFlavor="NA" /> < code codeSystem="local" code="ASEGR" displayName="Absolute Neutrophils" /> <statusCode code="completed" /> <effectiveTime value="360239289937 " /> <value unit="10*3/uL" xsi:type="PQ" value="3.14" /> < referenceRange> <observationRange> <text>1.90-7.00</text > </observationRange> </referenceRange> </observation > </component> <component> <observation moodCode="EVN" classCode="OBS"> <templateId root="11.30.840.1.011453.10.20.22.4.2" /> <id nullFlavor="NA" /> <code codeSystem="local" code="BASOR" displayName="Basophils" /> <statusCode code="completed" /> < effectiveTime value="800718835031" /> <value unit="%" xsi:type="PQ " value="1" /> <referenceRange> <observationRange> <text>0-2</text> </observationRange> </referenceRange> </observation> </component> <component> <observation moodCode="EVN" classCode="OBS"> <templateId root= "216.840.1.131927.10.2022.4.2" /> <id nullFlavor="NA" /> < code codeSystem="local" code="EOSR" displayName="Eosinophils" /> < statusCode code="completed" /> <effectiveTime value="626111110250" /> <value unit="%" xsi:type="PQ" value="6" /> < interpretationCode codeSystem="local" code="*" /> <referenceRange> <observationRange> <text>0-4</text> </ observationRange> </referenceRange> </observation> </ component> <component> <observation moodCode="EVN" classCode="OBS"> <templateId root="16.840.1.263286.10.20.22.4.2" /> <id nullFlavor="NA" /> <code codeSystem="local" code="HCT" displayName="HCT " /> <statusCode code="completed" /> <effectiveTime value= "461453113617" /> <value unit="%" xsi:type="PQ" value="35.6" /> <interpretationCode codeSystem="local" code="*" /> < referenceRange> <observationRange> <text>37.0-47.0</text > </observationRange> </referenceRange> </observation > </component> <component> <observation moodCode="EVN" classCode="OBS"> <templateId root="216.840.1.144969.10.20.22.4.2" /> <id nullFlavor="NA" /> <code codeSystem="local" code="HGB" displayName="HGB" /> <statusCode code="completed" /> < effectiveTime value="943345893562" /> <value unit="g/dL" xsi:type="PQ" value="11.6" /> <interpretationCode codeSystem="local" code="*" /> <referenceRange> <observationRange> <text>12.0- 16.0</text> </observationRange> </referenceRange> </ observation> </component> <component> <observation moodCode= "EVN" classCode="OBS"> <templateId root="11.30.840.1.905315.10..4.2 " /> <id nullFlavor="NA" /> <code codeSystem="local" code= "IMGA" displayName="Immature Granulocytes" /> <statusCode code= "completed" /> <effectiveTime value="551895249683" /> <value unit="%" xsi:type="PQ" value="0.4" /> <referenceRange> < observationRange> <text>0.0-1.0</text> </ observationRange> </referenceRange> </observation> </ component> <component> <observation moodCode="EVN" classCode="OBS"> <templateId root="11.30.840.1.832104.10.20.22.4.2" /> <id nullFlavor="NA" /> <code codeSystem="local" code="LYMPR" displayName= "Lymphocytes" /> <statusCode code="completed" /> < effectiveTime value="980528710337" /> <value unit="%" xsi:type="PQ " value="30" /> <referenceRange> <observationRange> <text>20-46</text> </observationRange> </ referenceRange> </observation> </component> <component> <observation moodCode="EVN" classCode="OBS"> <templateId root= "16.840.1.419655.10.22.4.2" /> <id nullFlavor="NA" /> < code codeSystem="local" code="MCH" displayName="MCH" /> <statusCode code="completed" /> <effectiveTime value="512463309789" /> < value unit="pg" xsi:type="PQ" value="29.9" /> <referenceRange> <observationRange> <text>27.0-32.0</text> </ observationRange> </referenceRange> </observation> </ component> <component> <observation moodCode="EVN" classCode="OBS"> <templateId root="11.30.840.1.710898.08.03.22.4.2" /> <id nullFlavor="NA" /> <code codeSystem="local" code="MCHC" displayName= "MCHC" /> <statusCode code="completed" /> <effectiveTime value ="053647210129" /> <value unit="g/dL" xsi:type="PQ" value="32.6" /> <referenceRange> <observationRange> <text>32.0- 36.0</text> </observationRange> </referenceRange> </ observation> </component> <component> <observation moodCode= "EVN" classCode="OBS"> <templateId root="11.30.840.1.415232.22.4.2 " /> <id nullFlavor="NA" /> <code codeSystem="local" code="MCV " displayName="MCV" /> <statusCode code="completed" /> < effectiveTime value="777636965482" /> <value unit="fL" xsi:type="PQ" value="91.8" /> <referenceRange> <observationRange> <text>82.0-99.0</text> </observationRange> </ referenceRange> </observation> </component> <component> <observation moodCode="EVN" classCode="OBS"> <templateId root= "16.840.1.399544.10.22.4.2" /> <id nullFlavor="NA" /> < code codeSystem="local" code="MONOR" displayName="Monocytes" /> < statusCode code="completed" /> <effectiveTime value="466096562132" /> <value unit="%" xsi:type="PQ" value="7" /> <referenceRange > <observationRange> <text>4-11</text> </ observationRange> </referenceRange> </observation> </ component> <component> <observation moodCode="EVN" classCode="OBS"> <templateId root="11.30.840.1.033925...4.2" /> <id nullFlavor="NA" /> <code codeSystem="local" code="MPV" displayName="MPV " /> <statusCode code="completed" /> <effectiveTime value= "984626077452" /> <value unit="fL" xsi:type="PQ" value="10.0" /> <referenceRange> <observationRange> <text>9.4-12.4</ text> </observationRange> </referenceRange> </ observation> </component> <component> <observation moodCode= "EVN" classCode="OBS"> <templateId root="16.840.1.395274.10.20.22.4.2 " /> <id nullFlavor="NA" /> <code codeSystem="local" code= "SEGR" displayName="Neutrophils" /> <statusCode code="completed" /> <effectiveTime value="529220678736" /> <value unit="%" xsi: type="PQ" value="56" /> <referenceRange> <observationRange> <text>51-75</text> </observationRange> </ referenceRange> </observation> </component> <component> <observation moodCode="EVN" classCode="OBS"> <templateId root= "11.30.840.1.074432.10.22.4.2" /> <id nullFlavor="NA" /> < code codeSystem="local" code="NRBCA" displayName="Nucleated RBC Automated" /> <statusCode code="completed" /> <effectiveTime value= "425060921929" /> <value unit="/100WBC" xsi:type="PQ" value="0.0" /> <referenceRange> <observationRange> <text /> </observationRange> </referenceRange> </observation> </component> <component> <observation moodCode="EVN" classCode= "OBS"> <templateId root="11.30.840.1.483504.10.22.4.2" /> < id nullFlavor="NA" /> <code codeSystem="local" code="PLT" displayName= "Platelet Count" /> <statusCode code="completed" /> < effectiveTime value="831342511688" /> <value unit="K/uL" xsi:type="PQ" value="271" /> <referenceRange> <observationRange> <text>150-400</text> </observationRange> </ referenceRange> </observation> </component> <component> <observation moodCode="EVN" classCode="OBS"> <templateId root= "11.30.840.1.773485.08.03.224.2" /> <id nullFlavor="NA" /> < code codeSystem="local" code="RBC" displayName="RBC" /> <statusCode code="completed" /> <effectiveTime value="299927472457" /> < value unit="10*6/uL" xsi:type="PQ" value="3.88" /> <interpretationCode codeSystem="local" code="*" /> <referenceRange> < observationRange> <text>4.00-5.20</text> </ observationRange> </referenceRange> </observation> </ component> <component> <observation moodCode="EVN" classCode="OBS"> <templateId root="216.840.1.548644.08.03.224.2" /> <id nullFlavor="NA" /> <code codeSystem="local" code="RDW" displayName="RDW " /> <statusCode code="completed" /> <effectiveTime value= "638973755144" /> <value unit="%" xsi:type="PQ" value="13.9" /> <referenceRange> <observationRange> <text>11.5- 14.5</text> </observationRange> </referenceRange> </ observation> </component> <component> <observation moodCode= "EVN" classCode="OBS"> <templateId root="216.840.1.155627.08.03.224.2 " /> <id nullFlavor="NA" /> <code codeSystem="local" code= "WBCIR" displayName="WBC" /> <statusCode code="completed" /> < effectiveTime value="936122141138" /> <value unit="K/uL" xsi:type="PQ" value="5.6" /> <referenceRange> <observationRange> <text>4.8-10.8</text> </observationRange> </ referenceRange> </observation> </component> </organizer> </entry > <entry> <organizer moodCode="EVN" classCode="BATTERY"> <templateId root="16.840.1.033505.10.4.1" /> <id nullFlavor="NA" /> <code codeSystem="local" code="UA" displayName="Urinalysis with reflex microscopic" / > <statusCode code="completed" /> <component> <observation moodCode="EVN" classCode="OBS"> <templateId root= "2.840.1.461985.08.03.22.4.2" /> <id nullFlavor="NA" /> < code codeSystem="local" code="UAPP" displayName="Appearance" /> < statusCode code="completed" /> <effectiveTime value="" /> <value unit="NA" xsi:type="PQ" value="Clear" /> < referenceRange> <observationRange> <text /> < /observationRange> </referenceRange> </observation> </ component> <component> <observation moodCode="EVN" classCode="OBS"> <templateId root="216.840.1.186457.10...4.2" /> <id nullFlavor="NA" /> <code codeSystem="local" code="UBIL" displayName= "Bilirubin" /> <statusCode code="completed" /> <effectiveTime value="" /> <value unit="NA" xsi:type="PQ" value="Negative " /> <referenceRange> <observationRange> <text> Negative</text> </observationRange> </referenceRange> </observation> </component> <component> <observation moodCode ="EVN" classCode="OBS"> <templateId root= "11.30.840.1.078675.08.03.22.4.2" /> <id nullFlavor="NA" /> < code codeSystem="local" code="UBLD" displayName="Blood" /> <statusCode code="completed" /> <effectiveTime value="" /> < value unit="NA" xsi:type="PQ" value="Negative" /> <referenceRange> <observationRange> <text>Negative</text> </ observationRange> </referenceRange> </observation> </ component> <component> <observation moodCode="EVN" classCode="OBS"> <templateId root="16.840.1.259097.08.03.22.4.2" /> <id nullFlavor="NA" /> <code codeSystem="local" code="UCOLR" displayName= "Color" /> <statusCode code="completed" /> <effectiveTime value="" /> <value unit="NA" xsi:type="PQ" value="Yellow" / > <referenceRange> <observationRange> <text /> </observationRange> </referenceRange> </observation > </component> <component> <observation moodCode="EVN" classCode="OBS"> <templateId root="16.840.1.900033...4.2" /> <id nullFlavor="NA" /> <code codeSystem="local" code="UGLU" displayName="Glucose, Urine" /> <statusCode code="completed" /> <effectiveTime value="" /> <value unit="" xsi:type="PQ" value="Negative" /> <referenceRange> <observationRange> <text>Negative</text> </observationRange> </ referenceRange> </observation> </component> <component> <observation moodCode="EVN" classCode="OBS"> <templateId root= "216.840.1.507563.10.4.2" /> <id nullFlavor="NA" /> < code codeSystem="local" code="UKET" displayName="Ketones" /> < statusCode code="completed" /> <effectiveTime value="" /> <value unit="" xsi:type="PQ" value="Negative" /> < referenceRange> <observationRange> <text>Negative</text > </observationRange> </referenceRange> </observation > </component> <component> <observation moodCode="EVN" classCode="OBS"> <templateId root="216.840.1.935012.08.03.22.4.2" /> <id nullFlavor="NA" /> <code codeSystem="local" code="ULEU" displayName="Leukocyte Esterase" /> <statusCode code="completed" /> <effectiveTime value="" /> <value unit="NA" xsi:type ="PQ" value="Negative" /> <referenceRange> <observationRange > <text>Negative</text> </observationRange> </ referenceRange> </observation> </component> <component> <observation moodCode="EVN" classCode="OBS"> <templateId root= "16.840.1.982690.08.03.22.4.2" /> <id nullFlavor="NA" /> < code codeSystem="local" code="UNIT" displayName="Nitrites" /> < statusCode code="completed" /> <effectiveTime value="" /> <value unit="NA" xsi:type="PQ" value="Negative" /> < referenceRange> <observationRange> <text>Negative</text > </observationRange> </referenceRange> </observation > </component> <component> <observation moodCode="EVN" classCode="OBS"> <templateId root="16.840.1.384228.10..22.4.2" /> <id nullFlavor="NA" /> <code codeSystem="local" code="UPH" displayName="pH" /> <statusCode code="completed" /> < effectiveTime value="" /> <value unit="NA" xsi:type="PQ" value="5.0" /> <referenceRange> <observationRange> <text>5.0-8.0</text> </observationRange> </ referenceRange> </observation> </component> <component> <observation moodCode="EVN" classCode="OBS"> <templateId root= "16.840.1.215762.10..4.2" /> <id nullFlavor="NA" /> < code codeSystem="local" code="UPRO" displayName="Protein" /> < statusCode code="completed" /> <effectiveTime value="" /> <value unit="NA" xsi:type="PQ" value="Negative" /> < referenceRange> <observationRange> <text>Negative</text > </observationRange> </referenceRange> </observation > </component> <component> <observation moodCode="EVN" classCode="OBS"> <templateId root="11.30.840.1.085961.10...4.2" /> <id nullFlavor="NA" /> <code codeSystem="local" code="USPG" displayName="Specific [place]" /> <statusCode code="completed" /> <effectiveTime value="" /> <value unit="NA" xsi:type= "PQ" value="1.015" /> <referenceRange> <observationRange> <text>1.003-1.030</text> </observationRange> </ referenceRange> </observation> </component> <component> <observation moodCode="EVN" classCode="OBS"> <templateId root= "216.840.1.861853.10.4.2" /> <id nullFlavor="NA" /> < code codeSystem="local" code="UTYP" displayName="UA Collection type" /> <statusCode code="completed" /> <effectiveTime value="230205971449" / > <value unit="NA" xsi:type="PQ" value="Clean Catch" /> < referenceRange> <observationRange> <text /> < /observationRange> </referenceRange> </observation> </ component> <component> <observation moodCode="EVN" classCode="OBS"> <templateId root="216.840.1.555549.08.03.22.4.2" /> <id nullFlavor="NA" /> <code codeSystem="local" code="UURO" displayName= "Urobilinogen" /> <statusCode code="completed" /> < effectiveTime value="354036962186" /> <value unit="mg/dL" xsi:type="PQ " value="Negative" /> <referenceRange> <observationRange> <text><1.0</text> </observationRange> </ referenceRange> </observation> </component> </organizer> </entry > <entry> <organizer moodCode="EVN" classCode="BATTERY"> <templateId root="216.840.1.976933.10..4.1" /> <id nullFlavor="NA" /> <code codeSystem="local" code="UPREG" displayName=" Screen, Urine" /> < statusCode code="completed" /> <component> <observation moodCode= "EVN" classCode="OBS"> <templateId root="11.30.840.1.443949.10.22.4.2 " /> <id nullFlavor="NA" /> <code codeSystem="local" code= "UPREG" displayName=" Screen, Urine" /> <statusCode code= "completed" /> <effectiveTime value="728776632917" /> <value unit="NA" xsi:type="PQ" value="Negative" /> <referenceRange> <observationRange> <text /> </observationRange> </referenceRange> </observation> </component> </organizer> < /entry> <entry> <organizer moodCode="EVN" classCode="BATTERY"> < templateId root="11.30.840.1.945017.08.03.22.4.1" /> <id nullFlavor="NA" /> <code codeSystem="local" code="VCHMN" displayName="Chem 8 NPT" /> < statusCode code="completed" /> <component> <observation moodCode= "EVN" classCode="OBS"> <templateId root="11.30.840.1.531592....4.2 " /> <id nullFlavor="NA" /> <code codeSystem="local" code= "VAGAP" displayName="Anion Gap" /> <statusCode code="completed" /> <effectiveTime value="850306466477" /> <value unit="mEq/L" xsi: type="PQ" value="13" /> <referenceRange> <observationRange> <text>3-20</text> </observationRange> </ referenceRange> </observation> </component> <component> <observation moodCode="EVN" classCode="OBS"> <templateId root= "11.30.840.1.464193.10...4.2" /> <id nullFlavor="NA" /> < code codeSystem="local" code="VBUNN" displayName="BUN Venous" /> < statusCode code="completed" /> <effectiveTime value="944894655661" /> <value unit="mg/dl" xsi:type="PQ" value="12" /> < referenceRange> <observationRange> <text>4-20</text> </observationRange> </referenceRange> </observation> </component> <component> <observation moodCode="EVN" classCode= "OBS"> <templateId root="2.16.840.1.016610.10..22.4.2" /> < id nullFlavor="NA" /> <code codeSystem="local" code="VCANN" displayName ="Calcium Ionized Venous" /> <statusCode code="completed" /> < effectiveTime value="914345563686" /> <value unit="mmol/L" xsi:type="PQ " value="1.13" /> <interpretationCode codeSystem="local" code="*" /> <referenceRange> <observationRange> <text>1.19- 1.41</text> </observationRange> </referenceRange> </ observation> </component> <component> <observation moodCode= "EVN" classCode="OBS"> <templateId root="216.840.1.056207.10..22.4.2 " /> <id nullFlavor="NA" /> <code codeSystem="local" code= "VCREN" displayName="Creatinine Venous" /> <statusCode code="completed " /> <effectiveTime value="094322973264" /> <value unit="mg/dL " xsi:type="PQ" value="0.7" /> <referenceRange> < observationRange> <text>0.4-1.0</text> </ observationRange> </referenceRange> </observation> </ component> <component> <observation moodCode="EVN" classCode="OBS"> <templateId root="16.840.1.301187.10..22.4.2" /> <id nullFlavor="NA" /> <code codeSystem="local" code="VGLNN" displayName= "Glucose Venous" /> <statusCode code="completed" /> < effectiveTime value="651913370378" /> <value unit="mg/dL" xsi:type="PQ " value="80" /> <referenceRange> <observationRange> <text>70-100</text> </observationRange> </ referenceRange> </observation> </component> <component> <observation moodCode="EVN" classCode="OBS"> <templateId root= "11.30.840.1.907681.10..4.2" /> <id nullFlavor="NA" /> < code codeSystem="local" code="VKNN" displayName="Potassium, WB" /> < statusCode code="completed" /> <effectiveTime value="048536710001" /> <value unit="mEq/L" xsi:type="PQ" value="3.9" /> < referenceRange> <observationRange> <text>3.6-5.1</text> </observationRange> </referenceRange> </observation > </component> <component> <observation moodCode="EVN" classCode="OBS"> <templateId root="11.30.840.1.868015.10.20.22.4.2" /> <id nullFlavor="NA" /> <code codeSystem="local" code="VNANN" displayName="Sodium Venous" /> <statusCode code="completed" /> <effectiveTime value="230108782591" /> <value unit="mEq/L" xsi:type= "PQ" value="140" /> <referenceRange> <observationRange> <text>136-144</text> </observationRange> </ referenceRange> </observation> </component> <component> <observation moodCode="EVN" classCode="OBS"> <templateId root= "216.840.1.699206.10..22.4.2" /> <id nullFlavor="NA" /> < code codeSystem="local" code="VTCNN" displayName="Total CO2 Venous" /> <statusCode code="completed" /> <effectiveTime value="745993662733" /> <value unit="mEq/L" xsi:type="PQ" value="21" /> < interpretationCode codeSystem="local" code="*" /> <referenceRange> <observationRange> <text>25-29</text> </ observationRange> </referenceRange> </observation> </ component> <component> <observation moodCode="EVN" classCode="OBS"> <templateId root="16.840.1.202407.10..4.2" /> <id nullFlavor="NA" /> <code codeSystem="local" code="VCLN" displayName= "Venous CL" /> <statusCode code="completed" /> <effectiveTime value="582634736649" /> <value unit="mEq/L" xsi:type="PQ" value="106" / > <referenceRange> <observationRange> <text>99- 109</text> </observationRange> </referenceRange> </ observation> </component> <component> <observation moodCode= "EVN" classCode="OBS"> <templateId root="16.840.1.275732.10..4.2 " /> <id nullFlavor="NA" /> <code codeSystem="local" code= "VHCNN" displayName="HCT Venous" /> <statusCode code="completed" /> <effectiveTime value="902820983361" /> <value unit="%" xsi: type="PQ" value="41.0" /> <referenceRange> <observationRange > <text>37.0-47.0</text> </observationRange> </ referenceRange> </observation> </component> <component> <observation moodCode="EVN" classCode="OBS"> <templateId root= "11.30.840.1.501010.10.22.4.2" /> <id nullFlavor="NA" /> < code codeSystem="local" code="VHGNN" displayName="HGB Venous NPT" /> < statusCode code="completed" /> <effectiveTime value="542675902856" /> <value unit="g/dL" xsi:type="PQ" value="13.9" /> < referenceRange> <observationRange> <text>12.0-16.0</text > </observationRange> </referenceRange> </observation > </component> </organizer> </entry> <entry> <organizer moodCode= "EVN" classCode="BATTERY"> <templateId root="11.30.840.1.947507.10..4.1 " /> <id nullFlavor="NA" /> <code codeSystem="local" code="PREGN" displayName=" Screen, Urine NPT" /> <statusCode code="completed" / > <component> <observation moodCode="EVN" classCode="OBS"> <templateId root="11.30.840.1.567746.10..22.4.2" /> <id nullFlavor="NA " /> <code codeSystem="local" code="PREGN" displayName=" Screen, Urine NPT" /> <statusCode code="completed" /> < effectiveTime value="166101236980" /> <value unit="NA" xsi:type="PQ" value="Negative" /> <referenceRange> <observationRange> <text /> </observationRange> </referenceRange> </observation> </component> </organizer> </entry> <entry> < organizer moodCode="EVN" classCode="BATTERY"> <templateId root= "216.840.1.348752.10..22.4.1" /> <id nullFlavor="NA" /> <code codeSystem="local" code="UA" displayName="URINALYSIS, ROUTINE" /> < statusCode code="completed" /> <component> <observation moodCode= "EVN" classCode="OBS"> <templateId root="16.840.1.528819.10...4.2 " /> <id nullFlavor="NA" /> <code codeSystem="local" code= "LEUESU" displayName="UA LEUKOCYTE ESTERASE DIPSTICK" /> <statusCode code="completed" /> <effectiveTime value="067563059576" /> < value unit="" xsi:type="PQ" value="NEGATIVE" /> <referenceRange> <observationRange> <text>NEGATIVE</text> </ observationRange> </referenceRange> </observation> </ component> <component> <observation moodCode="EVN" classCode="OBS"> <templateId root="11.30.840.1.661439.10...4.2" /> <id nullFlavor="NA" /> <code codeSystem="local" code="NITRIU" displayName= "UA NITRITE DIPSTICK" /> <statusCode code="completed" /> < effectiveTime value="824161792422" /> <value unit="" xsi:type="PQ" value="NEGATIVE" /> <referenceRange> <observationRange> <text>NEGATIVE</text> </observationRange> </ referenceRange> </observation> </component> <component> <observation moodCode="EVN" classCode="OBS"> <templateId root= "11.30.840.1.701607.08.03.22.4.2" /> <id nullFlavor="NA" /> < code codeSystem="local" code="PROTEIU" displayName="UA PROTEIN DIPSTICK" /> <statusCode code="completed" /> <effectiveTime value= "" /> <value unit="" xsi:type="PQ" value="NEGATIVE" /> <referenceRange> <observationRange> <text>NEGATIVE </text> </observationRange> </referenceRange> </ observation> </component> <component> <observation moodCode= "EVN" classCode="OBS"> <templateId root="840.1.908346.08.03.224.2 " /> <id nullFlavor="NA" /> <code codeSystem="local" code= "DGLUU" displayName="UA GLUCOSE DIPSTICK" /> <statusCode code= "completed" /> <effectiveTime value="" /> <value unit="" xsi:type="PQ" value="NEGATIVE" /> <referenceRange> < observationRange> <text>NEGATIVE</text> </ observationRange> </referenceRange> </observation> </ component> <component> <observation moodCode="EVN" classCode="OBS"> <templateId root="11.30.840.1.954100.08.03.22.4.2" /> <id nullFlavor="NA" /> <code codeSystem="local" code="KETONU" displayName= "UA KETONE DIPSTICK" /> <statusCode code="completed" /> < effectiveTime value="199961153501" /> <value unit="" xsi:type="PQ" value="NEGATIVE" /> <referenceRange> <observationRange> <text>NEGATIVE</text> </observationRange> </ referenceRange> </observation> </component> <component> <observation moodCode="EVN" classCode="OBS"> <templateId root= "16.840.1.677582.10..4.2" /> <id nullFlavor="NA" /> < code codeSystem="local" code="UROBILU" displayName="UA UROBILINOGEN DIPSTICK" / > <statusCode code="completed" /> <effectiveTime value= "691130798616" /> <value unit="" xsi:type="PQ" value="NORMAL" /> <referenceRange> <observationRange> <text>NORMAL</ text> </observationRange> </referenceRange> </ observation> </component> <component> <observation moodCode= "EVN" classCode="OBS"> <templateId root="11.30.840.1.592064.08.03.22.4.2 " /> <id nullFlavor="NA" /> <code codeSystem="local" code= "BILU" displayName="UA BILIRUBIN DIPSTICK" /> <statusCode code= "completed" /> <effectiveTime value="353204090930" /> <value unit="" xsi:type="PQ" value="NEGATIVE" /> <referenceRange> < observationRange> <text>NEGATIVE</text> </ observationRange> </referenceRange> </observation> </ component> <component> <observation moodCode="EVN" classCode="OBS"> <templateId root="11.30.840.1.677522.10.4.2" /> <id nullFlavor="NA" /> <code codeSystem="local" code="ABDELRAHMAN" displayName="UA BLOOD DIPSTICK" /> <statusCode code="completed" /> < effectiveTime value="187029973197" /> <value unit="" xsi:type="PQ" value="NEGATIVE" /> <referenceRange> <observationRange> <text>NEGATIVE</text> </observationRange> </ referenceRange> </observation> </component> <component> <observation moodCode="EVN" classCode="OBS"> <templateId root= "216.840.1.245948.10..22.4.2" /> <id nullFlavor="NA" /> < code codeSystem="local" code="SPGRU" displayName="UA SPECIFIC GRAVITY" /> <statusCode code="completed" /> <effectiveTime value="690910940417 " /> <value unit="" xsi:type="PQ" value="1.015" /> < referenceRange> <observationRange> <text>1.015-1.025</ text> </observationRange> </referenceRange> </ observation> </component> <component> <observation moodCode= "EVN" classCode="OBS"> <templateId root="11.30.840.1.611579.10...4.2 " /> <id nullFlavor="NA" /> <code codeSystem="local" code="COLTON " displayName="UR PH" /> <statusCode code="completed" /> < effectiveTime value="420521269466" /> <value unit="" xsi:type="PQ" value="6.5" /> <referenceRange> <observationRange> <text>5.0-7.0</text> </observationRange> </ referenceRange> </observation> </component> </organizer> </entry > <entry> <organizer moodCode="EVN" classCode="BATTERY"> <templateId root="16.840.1.285446.10..22.4.1" /> <id nullFlavor="NA" /> <code codeSystem="local" code="PREGU" displayName="UR TEST" /> < statusCode code="completed" /> <component> <observation moodCode= "EVN" classCode="OBS"> <templateId root="216.840.1.264550.10.20.22.4.2 " /> <id nullFlavor="NA" /> <code codeSystem="local" code= "PREGU" displayName="UR TEST" /> <statusCode code="completed " /> <effectiveTime value="079767017764" /> <value unit="" xsi :type="PQ" value="NEGATIVE" /> <referenceRange> < observationRange> <text>NEGATIVE</text> </ observationRange> </referenceRange> </observation> </ component> </organizer> </entry> <entry> <organizer moodCode="EVN" classCode="BATTERY"> <templateId root="216.840.1.113224.10.20.22.4.1" /> <id nullFlavor="NA" /> <code codeSystem="local" code="CHL" displayName ="CHLAMYDIA DNA BY PCR" /> <statusCode code="completed" /> <component > <observation moodCode="EVN" classCode="OBS"> <templateId root= "216.840.1.633584.10.20.22.4.2" /> <id nullFlavor="NA" /> < code codeSystem="local" code="MB" displayName="Microbiology" /> < statusCode code="completed" /> <effectiveTime value="766744138895" /> <value xsi:type="ST" value="<pre><b>CHLAMYDIA DNA BY PCR - GONORRHOEA DNA BY PCR</b> See BelowCHLAMYDIA DNA BY PCR(F) Isabella Date/Time: 2016 19:12 Laina Date/Time: 06/12/2017 09:32SOURCE : URINESPEC DESC: [facility] [facility], [place] [address]Xaf BelowGONORRHOEA DNA BY PCR(F) Isabella Date/Time: 06/11/2017 19:12 Laina Date/Time: 06/12/2017 09:32SOURCE: URINESPEC DESC: [facility] [place] [place] [address]</ pre>" /> <referenceRange> <observationRange> < text /> </observationRange> </referenceRange> </ observation> </component> </organizer> </entry> <entry> <organizer moodCode="EVN" classCode="BATTERY"> <templateId root= "2.16.840.1.959990.10.20.22.4.1" /> <id nullFlavor="NA" /> <code codeSystem="local" code="PREG" displayName=" TEST, SERUM" /> < statusCode code="completed" /> <component> <observation moodCode= "EVN" classCode="OBS"> <templateId root="2.16.840.1.549295.10.20.22.4.2 " /> <id nullFlavor="NA" /> <code codeSystem="local" code= "PREG" displayName=" TEST, SERUM" /> <statusCode code= "completed" /> <effectiveTime value="160463568430" /> <value unit="" xsi:type="PQ" value="NEGATIVE" /> <referenceRange> < observationRange> <text>NEGATIVE</text> </ observationRange> </referenceRange> </observation> </ component> </organizer> </entry> <entry> <organizer moodCode="EVN" classCode="BATTERY"> <templateId root="2.16.840.1.480874.10.20.22.4.1" /> <id nullFlavor="NA" /> <code codeSystem="local" code="RPR" displayName ="RAPID PLASMA REAGIN" /> <statusCode code="completed" /> <component> <observation moodCode="EVN" classCode="OBS"> <templateId root= "216.840.1.200153.10..22.4.2" /> <id nullFlavor="NA" /> < code codeSystem="local" code="RPR" displayName="RAPID PLASMA REAGIN" /> <statusCode code="completed" /> <effectiveTime value="653009280010" / > <value unit="" xsi:type="PQ" value="NONREACTIVE" /> < referenceRange> <observationRange> <text>NONREACTIVE</ text> </observationRange> </referenceRange> </ observation> </component> </organizer> </entry> <entry> <organizer moodCode="EVN" classCode="BATTERY"> <templateId root= "16.840.1.704435.10..22.4.1" /> <id nullFlavor="NA" /> <code codeSystem="local" code="HIV" displayName="HIV" /> <statusCode code= "completed" /> <component> <observation moodCode="EVN" classCode= "OBS"> <templateId root="16.840.1.734320.10..22.4.2" /> < id nullFlavor="NA" /> <code codeSystem="local" code="[id number]" displayName="AB HIV 1 2" /> <statusCode code="completed" /> <effectiveTime value="040738663639" /> <value unit="" xsi:type="PQ" value="NEGATIVE" /> <referenceRange> <observationRange> <text>NEGATIVE</text> </observationRange> </ referenceRange> </observation> </component> <component> <observation moodCode="EVN" classCode="OBS"> <templateId root= "2.16.840.1.553193.10.20.22.4.2" /> <id nullFlavor="NA" /> < code codeSystem="local" code="[id number]" displayName="HIV 1 P24 AG" /> <statusCode code="completed" /> <effectiveTime value="298245108635" /> <value unit="" xsi:type="PQ" value="NEGATIVE" /> < referenceRange> <observationRange> <text>NEGATIVE</text > </observationRange> </referenceRange> </observation > </component> </organizer> </entry> <entry> <organizer moodCode= "EVN" classCode="BATTERY"> <templateId root="2.16.840.1.140715.10.20.22.4.1 " /> <id nullFlavor="NA" /> <code codeSystem="local" code="WET" displayName="WET MOUNT" /> <statusCode code="completed" /> <component > <observation moodCode="EVN" classCode="OBS"> <templateId root= "2.16.840.1.935314.10.20.22.4.2" /> <id nullFlavor="NA" /> < code codeSystem="local" code="MB" displayName="Microbiology" /> < statusCode code="completed" /> <effectiveTime value="163608018935" /> <value xsi:type="ST" value="<pre><b>WET MOUNT</b> See BelowWET MOUNT(F ) Isabella Date/Time: 06/11/2017 20:32 Laina Date/Time: 06/11/2017 20:45SOURCE: VAGINALSPEC DESC: CLUE CELLS ( Abnormal)MODERATE CLUE CELLS PRESENT (Abnormal)TRICHOMONASNO TRICHOMONAS SEENWBCFEW WBCYEASTNO YEAST SEENCHI [facility] [place] [address]</pre>" /> <referenceRange> <observationRange> <text /> </observationRange> </referenceRange> </observation> </component> </organizer> </entry> <entry> < organizer moodCode="EVN" classCode="BATTERY"> <templateId root= "2.16.840.1.143176.10.20.22.4.1" /> <id nullFlavor="NA" /> <code codeSystem="local" code="GRAM" displayName="GRAM STAIN - CHLAMYDIA DNA BY PCR" / > <statusCode code="completed" /> <component> <observation moodCode="EVN" classCode="OBS"> <templateId root= "2.16.840.1.233584.10..22.4.2" /> <id nullFlavor="NA" /> < code codeSystem="local" code="MB" displayName="Microbiology" /> < statusCode code="completed" /> <effectiveTime value="233807550774" /> <value xsi:type="ST" value="<pre><b>GRAM STAIN</b> See BelowGRAM STAIN( F) Isabella Date/Time: 06/11/2017 20:32 Laina Date/Time: 06/11/2017 20:52SOURCE: VAGINALSPEC DESC: GRAM STAINRARE NEUTROPHILSMANY GRAM VARIABLE BACILLI RESEMBLING G. VAGINALISNO ORGANISMS SEEN RESEMBLING NEISSERIA GONORRHOEAECHI ST[facility] [place] [address]</pre>" /> <referenceRange> <observationRange> <text /> </observationRange> </referenceRange> </observation> </component> </organizer> </entry> <entry> < organizer moodCode="EVN" classCode="BATTERY"> <templateId root= "2.16.840.1.677257.10.20.22.4.1" /> <id nullFlavor="NA" /> <code codeSystem="local" code="CBCWD" displayName="CBC With Platelet and Differential " /> <statusCode code="completed" /> <component> <observation moodCode="EVN" classCode="OBS"> <templateId root= "216.840.1.584377...4.2" /> <id nullFlavor="NA" /> < code codeSystem="local" code="ABASR" displayName="Absolute Basophils" /> <statusCode code="completed" /> <effectiveTime value="997895020444" /> <value unit="10*3/uL" xsi:type="PQ" value="0.06" /> < referenceRange> <observationRange> <text>0.00-0.20</text > </observationRange> </referenceRange> </observation > </component> <component> <observation moodCode="EVN" classCode="OBS"> <templateId root="216.840.1.089646.08.03.224.2" /> <id nullFlavor="NA" /> <code codeSystem="local" code="AEOSR" displayName="Absolute Eosinophils" /> <statusCode code="completed" /> <effectiveTime value="899171066502" /> <value unit="10*3/uL" xsi:type="PQ" value="0.46" /> <referenceRange> < observationRange> <text>0.00-0.50</text> </ observationRange> </referenceRange> </observation> </ component> <component> <observation moodCode="EVN" classCode="OBS"> <templateId root="216.840.1.642371...4.2" /> <id nullFlavor="NA" /> <code codeSystem="local" code="ALYMR" displayName= "Absolute Lymphocytes" /> <statusCode code="completed" /> < effectiveTime value="933594367912" /> <value unit="10*3/uL" xsi:type= "PQ" value="2.05" /> <referenceRange> <observationRange> <text>0.80-3.30</text> </observationRange> </ referenceRange> </observation> </component> <component> <observation moodCode="EVN" classCode="OBS"> <templateId root= "16.840.1.836008.10.20.22.4.2" /> <id nullFlavor="NA" /> < code codeSystem="local" code="AMONR" displayName="Absolute Monocytes" /> <statusCode code="completed" /> <effectiveTime value="630672590864" /> <value unit="10*3" xsi:type="PQ" value="0.53" /> < referenceRange> <observationRange> <text>0.30-1.00</text > </observationRange> </referenceRange> </observation > </component> <component> <observation moodCode="EVN" classCode="OBS"> <templateId root="840.1.872314...4.2" /> <id nullFlavor="NA" /> <code codeSystem="local" code="ASEGR" displayName="Absolute Neutrophils" /> <statusCode code="completed" /> <effectiveTime value="608524432803" /> <value unit="" xsi:type="PQ" value="4.64" /> <referenceRange> < observationRange> <text>1.90-7.00</text> </ observationRange> </referenceRange> </observation> </ component> <component> <observation moodCode="EVN" classCode="OBS"> <templateId root="11.30.840.1.838120.10.20.22.4.2" /> <id nullFlavor="NA" /> <code codeSystem="local" code="BASOR" displayName= "Basophils" /> <statusCode code="completed" /> <effectiveTime value="713258729860" /> <value unit="%" xsi:type="PQ" value="1" /> <referenceRange> <observationRange> <text>0-2< /text> </observationRange> </referenceRange> </ observation> </component> <component> <observation moodCode= "EVN" classCode="OBS"> <templateId root="216.840.1.326112.10.20.22.4.2 " /> <id nullFlavor="NA" /> <code codeSystem="local" code= "EOSR" displayName="Eosinophils" /> <statusCode code="completed" /> <effectiveTime value="728466182886" /> <value unit="%" xsi: type="PQ" value="6" /> <interpretationCode codeSystem="local" code="*" /> <referenceRange> <observationRange> <text>0- 4</text> </observationRange> </referenceRange> </ observation> </component> <component> <observation moodCode= "EVN" classCode="OBS"> <templateId root="16.840.1.170008.10.20.22.4.2 " /> <id nullFlavor="NA" /> <code codeSystem="local" code="HCT " displayName="HCT" /> <statusCode code="completed" /> < effectiveTime value="616024697262" /> <value unit="%" xsi:type="PQ " value="38.9" /> <referenceRange> <observationRange> <text>37.0-47.0</text> </observationRange> </ referenceRange> </observation> </component> <component> <observation moodCode="EVN" classCode="OBS"> <templateId root= "216.840.1.101552.10..22.4.2" /> <id nullFlavor="NA" /> < code codeSystem="local" code="HGB" displayName="HGB" /> <statusCode code="completed" /> <effectiveTime value="836549157466" /> < value unit="g/dL" xsi:type="PQ" value="13.4" /> <referenceRange> <observationRange> <text>12.0-16.0</text> </ observationRange> </referenceRange> </observation> </ component> <component> <observation moodCode="EVN" classCode="OBS"> <templateId root="16.840.1.860306.10..4.2" /> <id nullFlavor="NA" /> <code codeSystem="local" code="IMGA" displayName= "Immature Granulocytes" /> <statusCode code="completed" /> < effectiveTime value="598961760596" /> <value unit="%" xsi:type="PQ " value="0.1" /> <referenceRange> <observationRange> <text>0.0-1.0</text> </observationRange> </ referenceRange> </observation> </component> <component> <observation moodCode="EVN" classCode="OBS"> <templateId root= "11.30.840.1.049719.10..22.4.2" /> <id nullFlavor="NA" /> < code codeSystem="local" code="LYMPR" displayName="Lymphocytes" /> < statusCode code="completed" /> <effectiveTime value="879172664472" /> <value unit="%" xsi:type="PQ" value="27" /> < referenceRange> <observationRange> <text>20-46</text> </observationRange> </referenceRange> </observation> </component> <component> <observation moodCode="EVN" classCode= "OBS"> <templateId root="16.840.1.503283.10.4.2" /> < id nullFlavor="NA" /> <code codeSystem="local" code="MCH" displayName= "MCH" /> <statusCode code="completed" /> <effectiveTime value= "058521152080" /> <value unit="pg" xsi:type="PQ" value="31.2" /> <referenceRange> <observationRange> <text>27.0-32.0< /text> </observationRange> </referenceRange> </ observation> </component> <component> <observation moodCode= "EVN" classCode="OBS"> <templateId root="11.30.840.1.433538.08.03.22.4.2 " /> <id nullFlavor="NA" /> <code codeSystem="local" code= "MCHC" displayName="MCHC" /> <statusCode code="completed" /> < effectiveTime value="140511003258" /> <value unit="g/dL" xsi:type="PQ" value="34.4" /> <referenceRange> <observationRange> <text>32.0-36.0</text> </observationRange> </ referenceRange> </observation> </component> <component> <observation moodCode="EVN" classCode="OBS"> <templateId root= "11.30.840.1.660714.22.4.2" /> <id nullFlavor="NA" /> < code codeSystem="local" code="MCV" displayName="MCV" /> <statusCode code="completed" /> <effectiveTime value="483641422380" /> < value unit="fL" xsi:type="PQ" value="90.7" /> <referenceRange> <observationRange> <text>82.0-99.0</text> </ observationRange> </referenceRange> </observation> </ component> <component> <observation moodCode="EVN" classCode="OBS"> <templateId root="11.30.840.1.309688.10.20.22.4.2" /> <id nullFlavor="NA" /> <code codeSystem="local" code="MONOR" displayName= "Monocytes" /> <statusCode code="completed" /> <effectiveTime value="144285657506" /> <value unit="%" xsi:type="PQ" value="7" /> <referenceRange> <observationRange> <text>4-11 </text> </observationRange> </referenceRange> </ observation> </component> <component> <observation moodCode= "EVN" classCode="OBS"> <templateId root="840.1.389103.10.20.22.4.2 " /> <id nullFlavor="NA" /> <code codeSystem="local" code="MPV " displayName="MPV" /> <statusCode code="completed" /> < effectiveTime value="365282582236" /> <value unit="fL" xsi:type="PQ" value="10.9" /> <referenceRange> <observationRange> <text>9.4-12.4</text> </observationRange> </ referenceRange> </observation> </component> <component> <observation moodCode="EVN" classCode="OBS"> <templateId root= "11.30.840.1.377863.10.20.22.4.2" /> <id nullFlavor="NA" /> < code codeSystem="local" code="SEGR" displayName="Neutrophils" /> < statusCode code="completed" /> <effectiveTime value="942277222174" /> <value unit="%" xsi:type="PQ" value="60" /> < referenceRange> <observationRange> <text>51-75</text> </observationRange> </referenceRange> </observation> </component> <component> <observation moodCode="EVN" classCode= "OBS"> <templateId root="11.30.840.1.674960.08.03.22.4.2" /> < id nullFlavor="NA" /> <code codeSystem="local" code="NRBCA" displayName ="Nucleated RBC Automated" /> <statusCode code="completed" /> <effectiveTime value="204218697540" /> <value unit="/100WBC" xsi:type= "PQ" value="0.0" /> <referenceRange> <observationRange> <text /> </observationRange> </referenceRange> </observation> </component> <component> <observation moodCode="EVN" classCode="OBS"> <templateId root= "11.30.840.1.123166.08.03.22.4.2" /> <id nullFlavor="NA" /> < code codeSystem="local" code="PLT" displayName="Platelet Count" /> < statusCode code="completed" /> <effectiveTime value="672411737045" /> <value unit="K/uL" xsi:type="PQ" value="255" /> < referenceRange> <observationRange> <text>150-400</text> </observationRange> </referenceRange> </observation > </component> <component> <observation moodCode="EVN" classCode="OBS"> <templateId root="11.30.840.1.885690.08.03.22.4.2" /> <id nullFlavor="NA" /> <code codeSystem="local" code="RBC" displayName="RBC" /> <statusCode code="completed" /> < effectiveTime value="695119683698" /> <value unit="10*6/uL" xsi:type= "PQ" value="4.29" /> <referenceRange> <observationRange> <text>4.00-5.20</text> </observationRange> </ referenceRange> </observation> </component> <component> <observation moodCode="EVN" classCode="OBS"> <templateId root= "2.16.840.1.471321.10..22.4.2" /> <id nullFlavor="NA" /> < code codeSystem="local" code="RDW" displayName="RDW" /> <statusCode code="completed" /> <effectiveTime value="271639802184" /> < value unit="%" xsi:type="PQ" value="13.6" /> <referenceRange> <observationRange> <text>11.5-14.5</text> </ observationRange> </referenceRange> </observation> </ component> <component> <observation moodCode="EVN" classCode="OBS"> <templateId root="2.16.840.1.458666.10.20.22.4.2" /> <id nullFlavor="NA" /> <code codeSystem="local" code="WBCIR" displayName= "WBC" /> <statusCode code="completed" /> <effectiveTime value= "292274775142" /> <value unit="K/uL" xsi:type="PQ" value="7.8" /> <referenceRange> <observationRange> <text>4.8-10.8< /text> </observationRange> </referenceRange> </ observation> </component> </organizer> </entry> <entry> <organizer moodCode="EVN" classCode="BATTERY"> <templateId root= "16.840.1.775029.10..22.4.1" /> <id nullFlavor="NA" /> <code codeSystem="local" code="CMP" displayName="Comprehensive Metabolic Panel (CMP)" /> <statusCode code="completed" /> <component> <observation moodCode="EVN" classCode="OBS"> <templateId root= "11.30.840.1.812876.10..4.2" /> <id nullFlavor="NA" /> < code codeSystem="local" code="ALB" displayName="Albumin" /> < statusCode code="completed" /> <effectiveTime value="523423042755" /> <value unit="g/dL" xsi:type="PQ" value="4.2" /> < referenceRange> <observationRange> <text>3.5-4.8</text> </observationRange> </referenceRange> </observation > </component> <component> <observation moodCode="EVN" classCode="OBS"> <templateId root="11.30.840.1.216113.10..22.4.2" /> <id nullFlavor="NA" /> <code codeSystem="local" code="ALP" displayName="Alkaline Phosphatase" /> <statusCode code="completed" /> <effectiveTime value="011761299911" /> <value unit="U/L" xsi: type="PQ" value="57" /> <referenceRange> <observationRange> <text>26-104</text> </observationRange> </ referenceRange> </observation> </component> <component> <observation moodCode="EVN" classCode="OBS"> <templateId root= "11.30.840.1.323654.10.4.2" /> <id nullFlavor="NA" /> < code codeSystem="local" code="ALT" displayName="ALT (SGPT)" /> < statusCode code="completed" /> <effectiveTime value="" /> <value unit="U/L" xsi:type="PQ" value="12" /> < interpretationCode codeSystem="local" code="*" /> <referenceRange> <observationRange> <text>14-54</text> </ observationRange> </referenceRange> </observation> </ component> <component> <observation moodCode="EVN" classCode="OBS"> <templateId root="2.16.840.1.024512.08.03.224.2" /> <id nullFlavor="NA" /> <code codeSystem="local" code="AGAP" displayName= "Anion Gap" /> <statusCode code="completed" /> <effectiveTime value="" /> <value unit="mEq/L" xsi:type="PQ" value="7" /> <referenceRange> <observationRange> <text>3-20 </text> </observationRange> </referenceRange> </ observation> </component> <component> <observation moodCode= "EVN" classCode="OBS"> <templateId root="2.16.840.1.507806.08.03.22.4.2 " /> <id nullFlavor="NA" /> <code codeSystem="local" code="AST " displayName="AST (SGOT)" /> <statusCode code="completed" /> <effectiveTime value="" /> <value unit="U/L" xsi:type="PQ" value="12" /> <interpretationCode codeSystem="local" code="*" /> <referenceRange> <observationRange> <text>15-41</ text> </observationRange> </referenceRange> </ observation> </component> <component> <observation moodCode= "EVN" classCode="OBS"> <templateId root="216.840.1.246850.08.03.22.4.2 " /> <id nullFlavor="NA" /> <code codeSystem="local" code= "BILIT" displayName="Bilirubin Total" /> <statusCode code="completed" / > <effectiveTime value="" /> <value unit="mg/dL" xsi:type="PQ" value="0.5" /> <referenceRange> < observationRange> <text>0.2-1.2</text> </ observationRange> </referenceRange> </observation> </ component> <component> <observation moodCode="EVN" classCode="OBS"> <templateId root="16.840.1.112668.08.03.22.4.2" /> <id nullFlavor="NA" /> <code codeSystem="local" code="BUN" displayName="BUN " /> <statusCode code="completed" /> <effectiveTime value= "" /> <value unit="mg/dL" xsi:type="PQ" value="6" /> <referenceRange> <observationRange> <text>4-20</text > </observationRange> </referenceRange> </observation > </component> <component> <observation moodCode="EVN" classCode="OBS"> <templateId root="216.840.1.451904...4.2" /> <id nullFlavor="NA" /> <code codeSystem="local" code="CA" displayName="Calcium" /> <statusCode code="completed" /> < effectiveTime value="" /> <value unit="mg/dL" xsi:type="PQ " value="9.3" /> <referenceRange> <observationRange> <text>8.6-10.0</text> </observationRange> </ referenceRange> </observation> </component> <component> <observation moodCode="EVN" classCode="OBS"> <templateId root= "11.30.840.1.095882.10..22.4.2" /> <id nullFlavor="NA" /> < code codeSystem="local" code="CL" displayName="Chloride" /> < statusCode code="completed" /> <effectiveTime value="524126247332" /> <value unit="mEq/L" xsi:type="PQ" value="108" /> < referenceRange> <observationRange> <text>99-109</text> </observationRange> </referenceRange> </observation> </component> <component> <observation moodCode="EVN" classCode ="OBS"> <templateId root="11.30.840.1.418182.10.4.2" /> < id nullFlavor="NA" /> <code codeSystem="local" code="CO2" displayName= "CO2" /> <statusCode code="completed" /> <effectiveTime value= "906249290159" /> <value unit="mEq/L" xsi:type="PQ" value="23" /> <referenceRange> <observationRange> <text>22-32</ text> </observationRange> </referenceRange> </ observation> </component> <component> <observation moodCode= "EVN" classCode="OBS"> <templateId root="11.30.840.1.771246.10.2022.4.2 " /> <id nullFlavor="NA" /> <code codeSystem="local" code= "CREAT" displayName="Creatinine" /> <statusCode code="completed" /> <effectiveTime value="920070970225" /> <value unit="mg/dL" xsi: type="PQ" value="0.73" /> <referenceRange> <observationRange > <text>0.44-1.03</text> </observationRange> </ referenceRange> </observation> </component> <component> <observation moodCode="EVN" classCode="OBS"> <templateId root= "216.840.1.676004.1022.4.2" /> <id nullFlavor="NA" /> < code codeSystem="local" code="GLOB" displayName="Globulin" /> < statusCode code="completed" /> <effectiveTime value="366401016496" /> <value unit="g/dL" xsi:type="PQ" value="2.8" /> < referenceRange> <observationRange> <text>1.9-4.3</text> </observationRange> </referenceRange> </observation > </component> <component> <observation moodCode="EVN" classCode="OBS"> <templateId root="11.30.840.1.814799.08.03.22.4.2" /> <id nullFlavor="NA" /> <code codeSystem="local" code="GLU" displayName="Glucose" /> <statusCode code="completed" /> < effectiveTime value="269505920623" /> <value unit="mg/dL" xsi:type="PQ " value="89" /> <referenceRange> <observationRange> <text>70-100</text> </observationRange> </ referenceRange> </observation> </component> <component> <observation moodCode="EVN" classCode="OBS"> <templateId root= "16.840.1.908641..22.4.2" /> <id nullFlavor="NA" /> < code codeSystem="local" code="K" displayName="Potassium" /> < statusCode code="completed" /> <effectiveTime value="252886089677" /> <value unit="mEq/L" xsi:type="PQ" value="3.6" /> < referenceRange> <observationRange> <text>3.6-5.1</text> </observationRange> </referenceRange> </observation > </component> <component> <observation moodCode="EVN" classCode="OBS"> <templateId root="216.840.1.376034.10.20.22.4.2" /> <id nullFlavor="NA" /> <code codeSystem="local" code="TP" displayName="Protein" /> <statusCode code="completed" /> < effectiveTime value="748719761858" /> <value unit="g/dL" xsi:type="PQ" value="7.0" /> <referenceRange> <observationRange> <text>6.1-7.9</text> </observationRange> </ referenceRange> </observation> </component> <component> <observation moodCode="EVN" classCode="OBS"> <templateId root= "216.840.1.528971.10.20.22.4.2" /> <id nullFlavor="NA" /> < code codeSystem="local" code="NA" displayName="Sodium" /> <statusCode code="completed" /> <effectiveTime value="053058865097" /> < value unit="mEq/L" xsi:type="PQ" value="138" /> <referenceRange> <observationRange> <text>136-144</text> </ observationRange> </referenceRange> </observation> </ component> </organizer> </entry> <entry> <organizer moodCode="EVN" classCode="BATTERY"> <templateId root="216.840.1.673653.10..4.1" /> <id nullFlavor="NA" /> <code codeSystem="local" code="LIPA" displayName="Lipase" /> <statusCode code="completed" /> <component> <observation moodCode="EVN" classCode="OBS"> <templateId root= "11.30.840.1.788013.08.03.22.4.2" /> <id nullFlavor="NA" /> < code codeSystem="local" code="LIPA" displayName="Lipase" /> < statusCode code="completed" /> <effectiveTime value="" /> <value unit="U/L" xsi:type="PQ" value="20" /> <referenceRange > <observationRange> <text>8-48</text> </ observationRange> </referenceRange> </observation> </ component> </organizer> </entry> <entry> <organizer moodCode="EVN" classCode="BATTERY"> <templateId root="11.30.840.1.974085.08.03.224.1" /> <id nullFlavor="NA" /> <code codeSystem="local" code="GFR" displayName ="eGFR" /> <statusCode code="completed" /> <component> < observation moodCode="EVN" classCode="OBS"> <templateId root= "16.840.1.059638.08.03.22.4.2" /> <id nullFlavor="NA" /> < code codeSystem="local" code="GFR" displayName="eGFR" /> <statusCode code="completed" /> <effectiveTime value="" /> < value unit="mL/min" xsi:type="PQ" value=">60" /> <referenceRange> <observationRange> <text>>60</text> </ observationRange> </referenceRange> </observation> </ component> </organizer> </entry> <entry> <organizer moodCode="EVN" classCode="BATTERY"> <templateId root="16.840.1.031750.10..4.1" /> <id nullFlavor="NA" /> <code codeSystem="local" code="UA" displayName= "Urinalysis with reflex microscopic" /> <statusCode code="completed" /> <component> <observation moodCode="EVN" classCode="OBS"> < templateId root="216.840.1.094826.08.03.22.4.2" /> <id nullFlavor="NA " /> <code codeSystem="local" code="UAPP" displayName="Appearance" /> <statusCode code="completed" /> <effectiveTime value= "" /> <value unit="NA" xsi:type="PQ" value="Turbid" /> <interpretationCode codeSystem="local" code="*" /> < referenceRange> <observationRange> <text /> < /observationRange> </referenceRange> </observation> </ component> <component> <observation moodCode="EVN" classCode="OBS"> <templateId root="16.840.1.037017.08.03.22.4.2" /> <id nullFlavor="NA" /> <code codeSystem="local" code="UBIL" displayName= "Bilirubin" /> <statusCode code="completed" /> <effectiveTime value="" /> <value unit="NA" xsi:type="PQ" value="Negative " /> <referenceRange> <observationRange> <text> Negative</text> </observationRange> </referenceRange> </observation> </component> <component> <observation moodCode ="EVN" classCode="OBS"> <templateId root= "216.840.1.284037.08.03.22.4.2" /> <id nullFlavor="NA" /> < code codeSystem="local" code="UBLD" displayName="Blood" /> <statusCode code="completed" /> <effectiveTime value="" /> < value unit="NA" xsi:type="PQ" value="Pos 1+" /> <interpretationCode codeSystem="local" code="*" /> <referenceRange> < observationRange> <text>Negative</text> </ observationRange> </referenceRange> </observation> </ component> <component> <observation moodCode="EVN" classCode="OBS"> <templateId root="11.30.840.1.684988.08.03.224.2" /> <id nullFlavor="NA" /> <code codeSystem="local" code="UCOLR" displayName= "Color" /> <statusCode code="completed" /> <effectiveTime value="" /> <value unit="NA" xsi:type="PQ" value="Aliza" / > <interpretationCode codeSystem="local" code="*" /> < referenceRange> <observationRange> <text /> < /observationRange> </referenceRange> </observation> </ component> <component> <observation moodCode="EVN" classCode="OBS"> <templateId root="16.840.1.533125...4.2" /> <id nullFlavor="NA" /> <code codeSystem="local" code="UGLU" displayName= "Glucose, Urine" /> <statusCode code="completed" /> < effectiveTime value="" /> <value unit="" xsi:type="PQ" value="Negative" /> <referenceRange> <observationRange> <text>Negative</text> </observationRange> </ referenceRange> </observation> </component> <component> <observation moodCode="EVN" classCode="OBS"> <templateId root= "840.1.445766.10..4.2" /> <id nullFlavor="NA" /> < code codeSystem="local" code="UKET" displayName="Ketones" /> < statusCode code="completed" /> <effectiveTime value="" /> <value unit="" xsi:type="PQ" value="Negative" /> < referenceRange> <observationRange> <text>Negative</text > </observationRange> </referenceRange> </observation > </component> <component> <observation moodCode="EVN" classCode="OBS"> <templateId root="840.1.148526.08.03.224.2" /> <id nullFlavor="NA" /> <code codeSystem="local" code="ULEU" displayName="Leukocyte Esterase" /> <statusCode code="completed" /> <effectiveTime value="775183879325" /> <value unit="NA" xsi:type ="PQ" value="Pos 3+" /> <interpretationCode codeSystem="local" code="* " /> <referenceRange> <observationRange> <text> Negative</text> </observationRange> </referenceRange> </observation> </component> <component> <observation moodCode ="EVN" classCode="OBS"> <templateId root= "840.1.462612.1022.4.2" /> <id nullFlavor="NA" /> < code codeSystem="local" code="UNIT" displayName="Nitrites" /> < statusCode code="completed" /> <effectiveTime value="" /> <value unit="NA" xsi:type="PQ" value="Negative" /> < referenceRange> <observationRange> <text>Negative</text > </observationRange> </referenceRange> </observation > </component> <component> <observation moodCode="EVN" classCode="OBS"> <templateId root="16.840.1.911980.08.03.22.4.2" /> <id nullFlavor="NA" /> <code codeSystem="local" code="UPH" displayName="pH" /> <statusCode code="completed" /> < effectiveTime value="" /> <value unit="NA" xsi:type="PQ" value="7.0" /> <referenceRange> <observationRange> <text>5.0-8.0</text> </observationRange> </ referenceRange> </observation> </component> <component> <observation moodCode="EVN" classCode="OBS"> <templateId root= "11.30.840.1.780569.08.03.22.4.2" /> <id nullFlavor="NA" /> < code codeSystem="local" code="UPRO" displayName="Protein" /> < statusCode code="completed" /> <effectiveTime value="" /> <value unit="NA" xsi:type="PQ" value="Pos 2+" /> < interpretationCode codeSystem="local" code="*" /> <referenceRange> <observationRange> <text>Negative</text> </ observationRange> </referenceRange> </observation> </ component> <component> <observation moodCode="EVN" classCode="OBS"> <templateId root="11.30.840.1.025767.10.20.22.4.2" /> <id nullFlavor="NA" /> <code codeSystem="local" code="USPG" displayName= "Specific [place]" /> <statusCode code="completed" /> < effectiveTime value="897907150055" /> <value unit="NA" xsi:type="PQ" value="1.015" /> <referenceRange> <observationRange> <text>1.003-1.030</text> </observationRange> </ referenceRange> </observation> </component> <component> <observation moodCode="EVN" classCode="OBS"> <templateId root= "2.16.840.1.732983.08.03.22.4.2" /> <id nullFlavor="NA" /> < code codeSystem="local" code="UTYP" displayName="UA Collection type" /> <statusCode code="completed" /> <effectiveTime value="570582696665" / > <value unit="NA" xsi:type="PQ" value="Clean Catch" /> < referenceRange> <observationRange> <text /> < /observationRange> </referenceRange> </observation> </ component> <component> <observation moodCode="EVN" classCode="OBS"> <templateId root="2.16.840.1.911484.08.03.22.4.2" /> <id nullFlavor="NA" /> <code codeSystem="local" code="UURO" displayName= "Urobilinogen" /> <statusCode code="completed" /> < effectiveTime value="725424022967" /> <value unit="mg/dL" xsi:type="PQ " value="Negative" /> <referenceRange> <observationRange> <text><1.0</text> </observationRange> </ referenceRange> </observation> </component> </organizer> </entry > <entry> <organizer moodCode="EVN" classCode="BATTERY"> <templateId root="11.30.840.1.660894...4.1" /> <id nullFlavor="NA" /> <code codeSystem="local" code="UMIC" displayName="Urine Microscopic" /> < statusCode code="completed" /> <component> <observation moodCode= "EVN" classCode="OBS"> <templateId root="840.1.805516.08.03.22.4.2 " /> <id nullFlavor="NA" /> <code codeSystem="local" code= "UTRIC" displayName="Trichomonas" /> <statusCode code="completed" /> <effectiveTime value="054394260235" /> <value unit="NA" xsi: type="PQ" value="Present" /> <interpretationCode codeSystem="local" code="*" /> <referenceRange> <observationRange> <text /> </observationRange> </referenceRange> </ observation> </component> <component> <observation moodCode= "EVN" classCode="OBS"> <templateId root="840.1.609805.08.03.22.4.2 " /> <id nullFlavor="NA" /> <code codeSystem="local" code= "UBAC" displayName="Bacteria" /> <statusCode code="completed" /> <effectiveTime value="228349637586" /> <value unit="NA" xsi:type= "PQ" value="Moderate" /> <interpretationCode codeSystem="local" code="* " /> <referenceRange> <observationRange> <text /> </observationRange> </referenceRange> </ observation> </component> <component> <observation moodCode= "EVN" classCode="OBS"> <templateId root="11.30.840.1.205280.08.03.22.4.2 " /> <id nullFlavor="NA" /> <code codeSystem="local" code= "UEPI" displayName="Epithelial Cells" /> <statusCode code="completed" / > <effectiveTime value="704449243929" /> <value unit="/HPF" xsi:type="PQ" value="10" /> <referenceRange> < observationRange> <text /> </observationRange> </referenceRange> </observation> </component> <component> <observation moodCode="EVN" classCode="OBS"> <templateId root= "16.840.1.385262.08.03.22.4.2" /> <id nullFlavor="NA" /> < code codeSystem="local" code="URBC" displayName="RBC, Urine" /> < statusCode code="completed" /> <effectiveTime value="178318651389" /> <value unit="/HPF" xsi:type="PQ" value="2" /> <referenceRange > <observationRange> <text>0-2</text> </ observationRange> </referenceRange> </observation> </ component> <component> <observation moodCode="EVN" classCode="OBS"> <templateId root="11.30.840.1.974141...4.2" /> <id nullFlavor="NA" /> <code codeSystem="local" code="UMUC" displayName= "Urine Mucus" /> <statusCode code="completed" /> < effectiveTime value="581462401887" /> <value unit="NA" xsi:type="PQ" value="Present" /> <referenceRange> <observationRange> <text /> </observationRange> </referenceRange> </observation> </component> <component> <observation moodCode="EVN" classCode="OBS"> <templateId root= "2.16.840.1.331957.10..22.4.2" /> <id nullFlavor="NA" /> < code codeSystem="local" code="UWBC" displayName="WBC, Urine" /> < statusCode code="completed" /> <effectiveTime value="001608716037" /> <value unit="/HPF" xsi:type="PQ" value="10" /> < interpretationCode codeSystem="local" code="*" /> <referenceRange> <observationRange> <text>0-4</text> </ observationRange> </referenceRange> </observation> </ component> </organizer> </entry> <entry> <organizer moodCode="EVN" classCode="BATTERY"> <templateId root="216.840.1.000280.10..22.4.1" /> <id nullFlavor="NA" /> <code codeSystem="local" code="PREGN" displayName=" Screen, Urine NPT" /> <statusCode code="completed" / > <component> <observation moodCode="EVN" classCode="OBS"> <templateId root="216.840.1.261699.10..22.4.2" /> <id nullFlavor="NA " /> <code codeSystem="local" code="PREGN" displayName=" Screen, Urine NPT" /> <statusCode code="completed" /> < effectiveTime value="942688482900" /> <value unit="NA" xsi:type="PQ" value="Negative" /> <referenceRange> <observationRange> <text /> </observationRange> </referenceRange> </observation> </component> </organizer> </entry> <entry> < organizer moodCode="EVN" classCode="BATTERY"> <templateId root= "216.840.1.124569.08.03.22.4.1" /> <id nullFlavor="NA" /> <code codeSystem="local" code="UPREG" displayName=" Screen, Urine" /> < statusCode code="completed" /> <component> <observation moodCode= "EVN" classCode="OBS"> <templateId root="16.840.1.717154.10..22.4.2 " /> <id nullFlavor="NA" /> <code codeSystem="local" code= "UPREG" displayName=" Screen, Urine" /> <statusCode code= "completed" /> <effectiveTime value="757798274985" /> <value unit="NA" xsi:type="PQ" value="Negative" /> <referenceRange> <observationRange> <text /> </observationRange> </referenceRange> </observation> </component> </organizer> < /entry> <entry> <organizer moodCode="EVN" classCode="BATTERY"> < templateId root="16.840.1.986929.10..22.4.1" /> <id nullFlavor="NA" /> <code codeSystem="local" code="UA" displayName="Urinalysis with reflex microscopic" /> <statusCode code="completed" /> <component> < observation moodCode="EVN" classCode="OBS"> <templateId root= "16.840.1.653627.10..22.4.2" /> <id nullFlavor="NA" /> < code codeSystem="local" code="UAPP" displayName="Appearance" /> < statusCode code="completed" /> <effectiveTime value="903431170950" /> <value unit="NA" xsi:type="PQ" value="Sl Cloudy" /> < referenceRange> <observationRange> <text /> < /observationRange> </referenceRange> </observation> </ component> <component> <observation moodCode="EVN" classCode="OBS"> <templateId root="216.840.1.664313.10..4.2" /> <id nullFlavor="NA" /> <code codeSystem="local" code="UBIL" displayName= "Bilirubin" /> <statusCode code="completed" /> <effectiveTime value="" /> <value unit="NA" xsi:type="PQ" value="Negative " /> <referenceRange> <observationRange> <text> Negative</text> </observationRange> </referenceRange> </observation> </component> <component> <observation moodCode ="EVN" classCode="OBS"> <templateId root= "216.840.1.704137...4.2" /> <id nullFlavor="NA" /> < code codeSystem="local" code="UBLD" displayName="Blood" /> <statusCode code="completed" /> <effectiveTime value="" /> < value unit="NA" xsi:type="PQ" value="Negative" /> <referenceRange> <observationRange> <text>Negative</text> </ observationRange> </referenceRange> </observation> </ component> <component> <observation moodCode="EVN" classCode="OBS"> <templateId root="16.840.1.142754.10..4.2" /> <id nullFlavor="NA" /> <code codeSystem="local" code="UCOLR" displayName= "Color" /> <statusCode code="completed" /> <effectiveTime value="671059152530" /> <value unit="NA" xsi:type="PQ" value="Aliza" / > <interpretationCode codeSystem="local" code="*" /> < referenceRange> <observationRange> <text /> < /observationRange> </referenceRange> </observation> </ component> <component> <observation moodCode="EVN" classCode="OBS"> <templateId root="11.30.840.1.540953.08.03.22.4.2" /> <id nullFlavor="NA" /> <code codeSystem="local" code="UGLU" displayName= "Glucose, Urine" /> <statusCode code="completed" /> < effectiveTime value="764639375959" /> <value unit="" xsi:type="PQ" value="Negative" /> <referenceRange> <observationRange> <text>Negative</text> </observationRange> </ referenceRange> </observation> </component> <component> <observation moodCode="EVN" classCode="OBS"> <templateId root= "840.1.831641.08.03.224.2" /> <id nullFlavor="NA" /> < code codeSystem="local" code="UKET" displayName="Ketones" /> < statusCode code="completed" /> <effectiveTime value="687352432159" /> <value unit="" xsi:type="PQ" value="Trace" /> < interpretationCode codeSystem="local" code="*" /> <referenceRange> <observationRange> <text>Negative</text> </ observationRange> </referenceRange> </observation> </ component> <component> <observation moodCode="EVN" classCode="OBS"> <templateId root="840.1.622717.08.03.22.4.2" /> <id nullFlavor="NA" /> <code codeSystem="local" code="ULEU" displayName= "Leukocyte Esterase" /> <statusCode code="completed" /> < effectiveTime value="445354469217" /> <value unit="NA" xsi:type="PQ" value="Pos 3+" /> <interpretationCode codeSystem="local" code="*" /> <referenceRange> <observationRange> <text> Negative</text> </observationRange> </referenceRange> </observation> </component> <component> <observation moodCode ="EVN" classCode="OBS"> <templateId root= "11.30.840.1.567906.08.03.22.4.2" /> <id nullFlavor="NA" /> < code codeSystem="local" code="UNIT" displayName="Nitrites" /> < statusCode code="completed" /> <effectiveTime value="365579560127" /> <value unit="NA" xsi:type="PQ" value="Positive" /> < interpretationCode codeSystem="local" code="*" /> <referenceRange> <observationRange> <text>Negative</text> </ observationRange> </referenceRange> </observation> </ component> <component> <observation moodCode="EVN" classCode="OBS"> <templateId root="11.30.840.1.376946.08.03.22.4.2" /> <id nullFlavor="NA" /> <code codeSystem="local" code="UPH" displayName="pH " /> <statusCode code="completed" /> <effectiveTime value= "238297013452" /> <value unit="NA" xsi:type="PQ" value="5.0" /> <referenceRange> <observationRange> <text>5.0-8.0</ text> </observationRange> </referenceRange> </ observation> </component> <component> <observation moodCode= "EVN" classCode="OBS"> <templateId root="11.30.840.1.145189.08.03.22.4.2 " /> <id nullFlavor="NA" /> <code codeSystem="local" code= "UPRO" displayName="Protein" /> <statusCode code="completed" /> <effectiveTime value="881210756589" /> <value unit="NA" xsi:type="PQ " value="Negative" /> <referenceRange> <observationRange> <text>Negative</text> </observationRange> </ referenceRange> </observation> </component> <component> <observation moodCode="EVN" classCode="OBS"> <templateId root= "216.840.1.817739.08.03.22.4.2" /> <id nullFlavor="NA" /> < code codeSystem="local" code="USPG" displayName="Specific [place]" /> < statusCode code="completed" /> <effectiveTime value="162986703421" /> <value unit="NA" xsi:type="PQ" value="1.010" /> < referenceRange> <observationRange> <text>1.003-1.030</ text> </observationRange> </referenceRange> </ observation> </component> <component> <observation moodCode= "EVN" classCode="OBS"> <templateId root="16.840.1.395534.10..4.2 " /> <id nullFlavor="NA" /> <code codeSystem="local" code= "UTYP" displayName="UA Collection type" /> <statusCode code="completed " /> <effectiveTime value="102026772303" /> <value unit="NA" xsi:type="PQ" value="Clean Catch" /> <referenceRange> < observationRange> <text /> </observationRange> </referenceRange> </observation> </component> <component> <observation moodCode="EVN" classCode="OBS"> <templateId root= "11.30.840.1.515068.10..22.4.2" /> <id nullFlavor="NA" /> < code codeSystem="local" code="UURO" displayName="Urobilinogen" /> < statusCode code="completed" /> <effectiveTime value="169755987438" /> <value unit="mg/dL" xsi:type="PQ" value="2.0" /> < interpretationCode codeSystem="local" code="*" /> <referenceRange> <observationRange> <text><1.0</text> </ observationRange> </referenceRange> </observation> </ component> </organizer> </entry> <entry> <organizer moodCode="EVN" classCode="BATTERY"> <templateId root="216.840.1.731847.10..22.4.1" /> <id nullFlavor="NA" /> <code codeSystem="local" code="UMIC" displayName="Urine Microscopic" /> <statusCode code="completed" /> < component> <observation moodCode="EVN" classCode="OBS"> < templateId root="216.840.1.393138.10..22.4.2" /> <id nullFlavor="NA " /> <code codeSystem="local" code="UBAC" displayName="Bacteria" /> <statusCode code="completed" /> <effectiveTime value= "774858363124" /> <value unit="NA" xsi:type="PQ" value="Occasional" /> <interpretationCode codeSystem="local" code="*" /> < referenceRange> <observationRange> <text /> < /observationRange> </referenceRange> </observation> </ component> <component> <observation moodCode="EVN" classCode="OBS"> <templateId root="16.840.1.574364.08.03.22.4.2" /> <id nullFlavor="NA" /> <code codeSystem="local" code="UEPI" displayName= "Epithelial Cells" /> <statusCode code="completed" /> < effectiveTime value="" /> <value unit="/HPF" xsi:type="PQ" value="2" /> <referenceRange> <observationRange> <text /> </observationRange> </referenceRange> </ observation> </component> <component> <observation moodCode= "EVN" classCode="OBS"> <templateId root="16.840.1.959251.08.03.22.4.2 " /> <id nullFlavor="NA" /> <code codeSystem="local" code= "URBC" displayName="RBC, Urine" /> <statusCode code="completed" /> <effectiveTime value="" /> <value unit="/HPF" xsi: type="PQ" value="0" /> <referenceRange> <observationRange> <text>0-2</text> </observationRange> </ referenceRange> </observation> </component> <component> <observation moodCode="EVN" classCode="OBS"> <templateId root= "16.840.1.458049.08.03.22.4.2" /> <id nullFlavor="NA" /> < code codeSystem="local" code="UMUC" displayName="Urine Mucus" /> < statusCode code="completed" /> <effectiveTime value="" /> <value unit="NA" xsi:type="PQ" value="Present" /> < referenceRange> <observationRange> <text /> < /observationRange> </referenceRange> </observation> </ component> <component> <observation moodCode="EVN" classCode="OBS"> <templateId root="216.840.1.655682.10.20.22.4.2" /> <id nullFlavor="NA" /> <code codeSystem="local" code="UWBC" displayName= "WBC, Urine" /> <statusCode code="completed" /> < effectiveTime value="034172529059" /> <value unit="/HPF" xsi:type="PQ" value="10" /> <interpretationCode codeSystem="local" code="*" /> <referenceRange> <observationRange> <text>0-4</text > </observationRange> </referenceRange> </observation > </component> </organizer> </entry> <entry> <organizer moodCode= "EVN" classCode="BATTERY"> <templateId root="216.840.1.877932.10..22.4.1 " /> <id nullFlavor="NA" /> <code codeSystem="local" code="UDRGH" displayName="Urine Drug Screen" /> <statusCode code="completed" /> < component> <observation moodCode="EVN" classCode="OBS"> < templateId root="216.840.1.722623.10.20.22.4.2" /> <id nullFlavor="NA " /> <code codeSystem="local" code="UAMP1" displayName="Amph/Meth/ Ecstasy" /> <statusCode code="completed" /> <effectiveTime value="439820485982" /> <value unit="NA" xsi:type="PQ" value="Positive " /> <interpretationCode codeSystem="local" code="*" /> < referenceRange> <observationRange> <text /> < /observationRange> </referenceRange> </observation> </ component> <component> <observation moodCode="EVN" classCode="OBS"> <templateId root="11.30.840.1.161096.10.22.4.2" /> <id nullFlavor="NA" /> <code codeSystem="local" code="UBAR1" displayName= "Barbiturates" /> <statusCode code="completed" /> < effectiveTime value="425967623456" /> <value unit="NA" xsi:type="PQ" value="Negative" /> <referenceRange> <observationRange> <text /> </observationRange> </referenceRange> </observation> </component> <component> <observation moodCode="EVN" classCode="OBS"> <templateId root= "216.840.1.456911.08.03.22.4.2" /> <id nullFlavor="NA" /> < code codeSystem="local" code="UBEN1" displayName="Benzodiazepine" /> < statusCode code="completed" /> <effectiveTime value="214316814546" /> <value unit="NA" xsi:type="PQ" value="Negative" /> < referenceRange> <observationRange> <text /> < /observationRange> </referenceRange> </observation> </ component> <component> <observation moodCode="EVN" classCode="OBS"> <templateId root="216.840.1.959509.08.03.22.4.2" /> <id nullFlavor="NA" /> <code codeSystem="local" code="UCAN1" displayName= "Cannabinoid" /> <statusCode code="completed" /> < effectiveTime value="967811804358" /> <value unit="NA" xsi:type="PQ" value="Positive" /> <interpretationCode codeSystem="local" code="*" /> <referenceRange> <observationRange> <text /> </observationRange> </referenceRange> </observation> </component> <component> <observation moodCode="EVN" classCode ="OBS"> <templateId root="16.840.1.975673.10..4.2" /> < id nullFlavor="NA" /> <code codeSystem="local" code="UCOC1" displayName ="Cocaine" /> <statusCode code="completed" /> <effectiveTime value="" /> <value unit="NA" xsi:type="PQ" value="Negative " /> <referenceRange> <observationRange> <text /> </observationRange> </referenceRange> </ observation> </component> <component> <observation moodCode= "EVN" classCode="OBS"> <templateId root="16.840.1.634207.08.03.22.4.2 " /> <id nullFlavor="NA" /> <code codeSystem="local" code= "UMTD1" displayName="EDDP (Methadone met.)" /> <statusCode code= "completed" /> <effectiveTime value="803841046136" /> <value unit="NA" xsi:type="PQ" value="Negative" /> <referenceRange> <observationRange> <text /> </observationRange> </referenceRange> </observation> </component> <component> <observation moodCode="EVN" classCode="OBS"> <templateId root= "11.30.840.1.024398.08.03.22.4.2" /> <id nullFlavor="NA" /> < code codeSystem="local" code="UOPI1" displayName="Opiate" /> < statusCode code="completed" /> <effectiveTime value="992139480059" /> <value unit="NA" xsi:type="PQ" value="Negative" /> < referenceRange> <observationRange> <text /> < /observationRange> </referenceRange> </observation> </ component> <component> <observation moodCode="EVN" classCode="OBS"> <templateId root="216.840.1.987752.10..22.4.2" /> <id nullFlavor="NA" /> <code codeSystem="local" code="UPCP1" displayName= "Phencyclidine (PCP)" /> <statusCode code="completed" /> < effectiveTime value="455014763369" /> <value unit="NA" xsi:type="PQ" value="Negative" /> <referenceRange> <observationRange> <text /> </observationRange> </referenceRange> </observation> </component> </organizer> </entry> <entry> < organizer moodCode="EVN" classCode="BATTERY"> <templateId root= "216.840.1.662338.10..22.4.1" /> <id nullFlavor="NA" /> <code codeSystem="local" code="UA" displayName="URINALYSIS, ROUTINE" /> < statusCode code="completed" /> <component> <observation moodCode= "EVN" classCode="OBS"> <templateId root="2.16.840.1.936951.10..22.4.2 " /> <id nullFlavor="NA" /> <code codeSystem="local" code= "LEUESU" displayName="UA LEUKOCYTE ESTERASE DIPSTICK" /> <statusCode code="completed" /> <effectiveTime value="630118110062" /> < value unit="" xsi:type="PQ" value="NEGATIVE" /> <referenceRange> <observationRange> <text>NEGATIVE</text> </ observationRange> </referenceRange> </observation> </ component> <component> <observation moodCode="EVN" classCode="OBS"> <templateId root="216.840.1.123264.08.03.22.4.2" /> <id nullFlavor="NA" /> <code codeSystem="local" code="NITRIU" displayName= "UA NITRITE DIPSTICK" /> <statusCode code="completed" /> < effectiveTime value="" /> <value unit="" xsi:type="PQ" value="NEGATIVE" /> <referenceRange> <observationRange> <text>NEGATIVE</text> </observationRange> </ referenceRange> </observation> </component> <component> <observation moodCode="EVN" classCode="OBS"> <templateId root= "216.840.1.986547.08.03.22.4.2" /> <id nullFlavor="NA" /> < code codeSystem="local" code="PROTEIU" displayName="UA PROTEIN DIPSTICK" /> <statusCode code="completed" /> <effectiveTime value= "" /> <value unit="" xsi:type="PQ" value="NEGATIVE" /> <referenceRange> <observationRange> <text>NEGATIVE </text> </observationRange> </referenceRange> </ observation> </component> <component> <observation moodCode= "EVN" classCode="OBS"> <templateId root="16.840.1.637439.08.03.22.4.2 " /> <id nullFlavor="NA" /> <code codeSystem="local" code= "DGLUU" displayName="UA GLUCOSE DIPSTICK" /> <statusCode code= "completed" /> <effectiveTime value="" /> <value unit="" xsi:type="PQ" value="NEGATIVE" /> <referenceRange> < observationRange> <text>NEGATIVE</text> </ observationRange> </referenceRange> </observation> </ component> <component> <observation moodCode="EVN" classCode="OBS"> <templateId root="16.840.1.749412.10..22.4.2" /> <id nullFlavor="NA" /> <code codeSystem="local" code="KETONU" displayName= "UA KETONE DIPSTICK" /> <statusCode code="completed" /> < effectiveTime value="" /> <value unit="" xsi:type="PQ" value="NEGATIVE" /> <referenceRange> <observationRange> <text>NEGATIVE</text> </observationRange> </ referenceRange> </observation> </component> <component> <observation moodCode="EVN" classCode="OBS"> <templateId root= "11.30.840.1.246020.10..4.2" /> <id nullFlavor="NA" /> < code codeSystem="local" code="UROBILU" displayName="UA UROBILINOGEN DIPSTICK" / > <statusCode code="completed" /> <effectiveTime value= "" /> <value unit="" xsi:type="PQ" value="NORMAL" /> <referenceRange> <observationRange> <text>NORMAL</ text> </observationRange> </referenceRange> </ observation> </component> <component> <observation moodCode= "EVN" classCode="OBS"> <templateId root="11.30.840.1.871369.10..4.2 " /> <id nullFlavor="NA" /> <code codeSystem="local" code= "BILU" displayName="UA BILIRUBIN DIPSTICK" /> <statusCode code= "completed" /> <effectiveTime value="862641292421" /> <value unit="" xsi:type="PQ" value="NEGATIVE" /> <referenceRange> < observationRange> <text>NEGATIVE</text> </ observationRange> </referenceRange> </observation> </ component> <component> <observation moodCode="EVN" classCode="OBS"> <templateId root="216.840.1.011789.10..4.2" /> <id nullFlavor="NA" /> <code codeSystem="local" code="ABDELRAHMAN" displayName="UA BLOOD DIPSTICK" /> <statusCode code="completed" /> < effectiveTime value="989752930024" /> <value unit="" xsi:type="PQ" value="NEGATIVE" /> <referenceRange> <observationRange> <text>NEGATIVE</text> </observationRange> </ referenceRange> </observation> </component> <component> <observation moodCode="EVN" classCode="OBS"> <templateId root= "216.840.1.428511.08.03.22.4.2" /> <id nullFlavor="NA" /> < code codeSystem="local" code="SPGRU" displayName="UA SPECIFIC GRAVITY" /> <statusCode code="completed" /> <effectiveTime value="131024650864 " /> <value unit="" xsi:type="PQ" value=">=1.030" /> < interpretationCode codeSystem="local" code="*" /> <referenceRange> <observationRange> <text>1.015-1.025</text> </ observationRange> </referenceRange> </observation> </ component> <component> <observation moodCode="EVN" classCode="OBS"> <templateId root="216.840.1.805374.08.03.22.4.2" /> <id nullFlavor="NA" /> <code codeSystem="local" code="COLTON" displayName="UR PH" /> <statusCode code="completed" /> <effectiveTime value= "099464766682" /> <value unit="" xsi:type="PQ" value="5.5" /> <referenceRange> <observationRange> <text>5.0-7.0</text > </observationRange> </referenceRange> </observation > </component> </organizer> </entry> <entry> <organizer moodCode= "EVN" classCode="BATTERY"> <templateId root="216.840.1.534917.08.03.22.4.1 " /> <id nullFlavor="NA" /> <code codeSystem="local" code="PREGU" displayName="UR TEST" /> <statusCode code="completed" /> < component> <observation moodCode="EVN" classCode="OBS"> < templateId root="216.840.1.079708.08.03.22.4.2" /> <id nullFlavor="NA " /> <code codeSystem="local" code="PREGU" displayName="UR TEST" /> <statusCode code="completed" /> <effectiveTime value= "849305793246" /> <value unit="" xsi:type="PQ" value="NEGATIVE" /> <referenceRange> <observationRange> <text>NEGATIVE </text> </observationRange> </referenceRange> </ observation> </component> </organizer> </entry> <entry> <organizer moodCode="EVN" classCode="BATTERY"> <templateId root= "216.840.1.992735.08.03.22.4.1" /> <id nullFlavor="NA" /> <code codeSystem="local" code="UPREG" displayName=" Screen, Urine" /> < statusCode code="completed" /> <component> <observation moodCode= "EVN" classCode="OBS"> <templateId root="216.840.1.845245.08.03.22.4.2 " /> <id nullFlavor="NA" /> <code codeSystem="local" code= "UPREG" displayName=" Screen, Urine" /> <statusCode code= "completed" /> <effectiveTime value="146199202028" /> <value unit="NA" xsi:type="PQ" value="Negative" /> <referenceRange> <observationRange> <text /> </observationRange> </referenceRange> </observation> </component> </organizer> < /entry> <entry> <organizer moodCode="EVN" classCode="BATTERY"> < templateId root="16.840.1.430225.08.03.22.4.1" /> <id nullFlavor="NA" /> <code codeSystem="local" code="CBCWD" displayName="CBC With Platelet and Differential" /> <statusCode code="completed" /> <component> < observation moodCode="EVN" classCode="OBS"> <templateId root= "16.840.1.799378...4.2" /> <id nullFlavor="NA" /> < code codeSystem="local" code="ABASR" displayName="Absolute Basophils" /> <statusCode code="completed" /> <effectiveTime value="341911630196" /> <value unit="10*3/uL" xsi:type="PQ" value="0.03" /> < referenceRange> <observationRange> <text>0.00-0.20</text > </observationRange> </referenceRange> </observation > </component> <component> <observation moodCode="EVN" classCode="OBS"> <templateId root="16.840.1.091827.10.4.2" /> <id nullFlavor="NA" /> <code codeSystem="local" code="AEOSR" displayName="Absolute Eosinophils" /> <statusCode code="completed" /> <effectiveTime value="815948595665" /> <value unit="10*3/uL" xsi:type="PQ" value="0.49" /> <referenceRange> < observationRange> <text>0.00-0.50</text> </ observationRange> </referenceRange> </observation> </ component> <component> <observation moodCode="EVN" classCode="OBS"> <templateId root="2.16.840.1.553519.10..22.4.2" /> <id nullFlavor="NA" /> <code codeSystem="local" code="ALYMR" displayName= "Absolute Lymphocytes" /> <statusCode code="completed" /> < effectiveTime value="658696746712" /> <value unit="10*3/uL" xsi:type= "PQ" value="2.01" /> <referenceRange> <observationRange> <text>0.80-3.30</text> </observationRange> </ referenceRange> </observation> </component> <component> <observation moodCode="EVN" classCode="OBS"> <templateId root= "2.16.840.1.875922.10..22.4.2" /> <id nullFlavor="NA" /> < code codeSystem="local" code="AMONR" displayName="Absolute Monocytes" /> <statusCode code="completed" /> <effectiveTime value="089808198317" /> <value unit="10*3/uL" xsi:type="PQ" value="0.72" /> < referenceRange> <observationRange> <text>0.30-1.00</text > </observationRange> </referenceRange> </observation > </component> <component> <observation moodCode="EVN" classCode="OBS"> <templateId root="16.840.1.540825.10.20.22.4.2" /> <id nullFlavor="NA" /> <code codeSystem="local" code="ASEGR" displayName="Absolute Neutrophils" /> <statusCode code="completed" /> <effectiveTime value="" /> <value unit="10*3/uL" xsi:type="PQ" value="5.63" /> <referenceRange> < observationRange> <text>1.90-7.00</text> </ observationRange> </referenceRange> </observation> </ component> <component> <observation moodCode="EVN" classCode="OBS"> <templateId root="11.30.840.1.391689.10.22.4.2" /> <id nullFlavor="NA" /> <code codeSystem="local" code="BASOR" displayName= "Basophils" /> <statusCode code="completed" /> <effectiveTime value="" /> <value unit="%" xsi:type="PQ" value="0" /> <referenceRange> <observationRange> <text>0-2< /text> </observationRange> </referenceRange> </ observation> </component> <component> <observation moodCode= "EVN" classCode="OBS"> <templateId root="11.30.840.1.484072.10..22.4.2 " /> <id nullFlavor="NA" /> <code codeSystem="local" code= "EOSR" displayName="Eosinophils" /> <statusCode code="completed" /> <effectiveTime value="" /> <value unit="%" xsi: type="PQ" value="6" /> <interpretationCode codeSystem="local" code="*" /> <referenceRange> <observationRange> <text>0- 4</text> </observationRange> </referenceRange> </ observation> </component> <component> <observation moodCode= "EVN" classCode="OBS"> <templateId root="11.30.840.1.361446.10.20.22.4.2 " /> <id nullFlavor="NA" /> <code codeSystem="local" code="HCT " displayName="HCT" /> <statusCode code="completed" /> < effectiveTime value="163780060224" /> <value unit="%" xsi:type="PQ " value="36.1" /> <interpretationCode codeSystem="local" code="*" /> <referenceRange> <observationRange> <text>37.0- 47.0</text> </observationRange> </referenceRange> </ observation> </component> <component> <observation moodCode= "EVN" classCode="OBS"> <templateId root="840.1.258139.10.22.4.2 " /> <id nullFlavor="NA" /> <code codeSystem="local" code="HGB " displayName="HGB" /> <statusCode code="completed" /> < effectiveTime value="814696548383" /> <value unit="g/dL" xsi:type="PQ" value="12.3" /> <referenceRange> <observationRange> <text>12.0-16.0</text> </observationRange> </ referenceRange> </observation> </component> <component> <observation moodCode="EVN" classCode="OBS"> <templateId root= "11.30.840.1.227978.10.20.22.4.2" /> <id nullFlavor="NA" /> < code codeSystem="local" code="IMGA" displayName="Immature Granulocytes" /> <statusCode code="completed" /> <effectiveTime value=" " /> <value unit="%" xsi:type="PQ" value="0.2" /> < referenceRange> <observationRange> <text>0.0-1.0</text> </observationRange> </referenceRange> </observation > </component> <component> <observation moodCode="EVN" classCode="OBS"> <templateId root="11.30.840.1.644697.10.4.2" /> <id nullFlavor="NA" /> <code codeSystem="local" code="LYMPR" displayName="Lymphocytes" /> <statusCode code="completed" /> < effectiveTime value="" /> <value unit="%" xsi:type="PQ " value="23" /> <referenceRange> <observationRange> <text>20-46</text> </observationRange> </ referenceRange> </observation> </component> <component> <observation moodCode="EVN" classCode="OBS"> <templateId root= "11.30.840.1.899357.08.03.22.4.2" /> <id nullFlavor="NA" /> < code codeSystem="local" code="MCH" displayName="MCH" /> <statusCode code="completed" /> <effectiveTime value="" /> < value unit="pg" xsi:type="PQ" value="31.3" /> <referenceRange> <observationRange> <text>27.0-32.0</text> </ observationRange> </referenceRange> </observation> </ component> <component> <observation moodCode="EVN" classCode="OBS"> <templateId root="11.30.840.1.439543.10.4.2" /> <id nullFlavor="NA" /> <code codeSystem="local" code="MCHC" displayName= "MCHC" /> <statusCode code="completed" /> <effectiveTime value ="" /> <value unit="g/dL" xsi:type="PQ" value="34.1" /> <referenceRange> <observationRange> <text>32.0- 36.0</text> </observationRange> </referenceRange> </ observation> </component> <component> <observation moodCode= "EVN" classCode="OBS"> <templateId root="216.840.1.842949.08.03.22.4.2 " /> <id nullFlavor="NA" /> <code codeSystem="local" code="MCV " displayName="MCV" /> <statusCode code="completed" /> < effectiveTime value="" /> <value unit="fL" xsi:type="PQ" value="91.9" /> <referenceRange> <observationRange> <text>82.0-99.0</text> </observationRange> </ referenceRange> </observation> </component> <component> <observation moodCode="EVN" classCode="OBS"> <templateId root= "2.16.840.1.617719.08.03.22.4.2" /> <id nullFlavor="NA" /> < code codeSystem="local" code="MONOR" displayName="Monocytes" /> < statusCode code="completed" /> <effectiveTime value="" /> <value unit="%" xsi:type="PQ" value="8" /> <referenceRange > <observationRange> <text>4-11</text> </ observationRange> </referenceRange> </observation> </ component> <component> <observation moodCode="EVN" classCode="OBS"> <templateId root="840.1.060886.10.20.22.4.2" /> <id nullFlavor="NA" /> <code codeSystem="local" code="MPV" displayName="MPV " /> <statusCode code="completed" /> <effectiveTime value= "" /> <value unit="fL" xsi:type="PQ" value="10.1" /> <referenceRange> <observationRange> <text>9.4-12.4</ text> </observationRange> </referenceRange> </ observation> </component> <component> <observation moodCode= "EVN" classCode="OBS"> <templateId root="840.1.444469.10.22.4.2 " /> <id nullFlavor="NA" /> <code codeSystem="local" code= "SEGR" displayName="Neutrophils" /> <statusCode code="completed" /> <effectiveTime value="" /> <value unit="%" xsi: type="PQ" value="63" /> <referenceRange> <observationRange> <text>51-75</text> </observationRange> </ referenceRange> </observation> </component> <component> <observation moodCode="EVN" classCode="OBS"> <templateId root= "840.1.297268.10..22.4.2" /> <id nullFlavor="NA" /> < code codeSystem="local" code="NRBCA" displayName="Nucleated RBC Automated" /> <statusCode code="completed" /> <effectiveTime value= "" /> <value unit="/100WBC" xsi:type="PQ" value="0.0" /> <referenceRange> <observationRange> <text /> </observationRange> </referenceRange> </observation> </component> <component> <observation moodCode="EVN" classCode= "OBS"> <templateId root="216.840.1.080644.10.22.4.2" /> < id nullFlavor="NA" /> <code codeSystem="local" code="PLT" displayName= "Platelet Count" /> <statusCode code="completed" /> < effectiveTime value="" /> <value unit="K/uL" xsi:type="PQ" value="240" /> <referenceRange> <observationRange> <text>150-400</text> </observationRange> </ referenceRange> </observation> </component> <component> <observation moodCode="EVN" classCode="OBS"> <templateId root= "11.30.840.1.742966.08.03.22.4.2" /> <id nullFlavor="NA" /> < code codeSystem="local" code="RBC" displayName="RBC" /> <statusCode code="completed" /> <effectiveTime value="" /> < value unit="10*6/uL" xsi:type="PQ" value="3.93" /> <interpretationCode codeSystem="local" code="*" /> <referenceRange> < observationRange> <text>4.00-5.20</text> </ observationRange> </referenceRange> </observation> </ component> <component> <observation moodCode="EVN" classCode="OBS"> <templateId root="11.30.840.1.118610.10.22.4.2" /> <id nullFlavor="NA" /> <code codeSystem="local" code="RDW" displayName="RDW " /> <statusCode code="completed" /> <effectiveTime value= "" /> <value unit="%" xsi:type="PQ" value="12.9" /> <referenceRange> <observationRange> <text>11.5- 14.5</text> </observationRange> </referenceRange> </ observation> </component> <component> <observation moodCode= "EVN" classCode="OBS"> <templateId root="11.30.840.1.109837.22.4.2 " /> <id nullFlavor="NA" /> <code codeSystem="local" code= "WBCIR" displayName="WBC" /> <statusCode code="completed" /> < effectiveTime value="345266159459" /> <value unit="K/uL" xsi:type="PQ" value="8.9" /> <referenceRange> <observationRange> <text>4.8-10.8</text> </observationRange> </ referenceRange> </observation> </component> </organizer> </entry > <entry> <organizer moodCode="EVN" classCode="BATTERY"> <templateId root="11.30.840.1.454342.08.03.22.4.1" /> <id nullFlavor="NA" /> <code codeSystem="local" code="UA" displayName="Urinalysis with reflex microscopic" / > <statusCode code="completed" /> <component> <observation moodCode="EVN" classCode="OBS"> <templateId root= "11.30.840.1.048953.22.4.2" /> <id nullFlavor="NA" /> < code codeSystem="local" code="UAPP" displayName="Appearance" /> < statusCode code="completed" /> <effectiveTime value="878589983720" /> <value unit="NA" xsi:type="PQ" value="Sl Cloudy" /> < referenceRange> <observationRange> <text /> < /observationRange> </referenceRange> </observation> </ component> <component> <observation moodCode="EVN" classCode="OBS"> <templateId root="11.30.840.1.919653.10.22.4.2" /> <id nullFlavor="NA" /> <code codeSystem="local" code="UBIL" displayName= "Bilirubin" /> <statusCode code="completed" /> <effectiveTime value="282799214935" /> <value unit="NA" xsi:type="PQ" value="Positive " /> <interpretationCode codeSystem="local" code="*" /> < referenceRange> <observationRange> <text>Negative</text > </observationRange> </referenceRange> </observation > </component> <component> <observation moodCode="EVN" classCode="OBS"> <templateId root="11.30.840.1.375976.10.4.2" /> <id nullFlavor="NA" /> <code codeSystem="local" code="UBLD" displayName="Blood" /> <statusCode code="completed" /> < effectiveTime value="768214169362" /> <value unit="NA" xsi:type="PQ" value="Negative" /> <referenceRange> <observationRange> <text>Negative</text> </observationRange> </ referenceRange> </observation> </component> <component> <observation moodCode="EVN" classCode="OBS"> <templateId root= "11.30.840.1.605936.1022.4.2" /> <id nullFlavor="NA" /> < code codeSystem="local" code="UCOLR" displayName="Color" /> < statusCode code="completed" /> <effectiveTime value="753231142701" /> <value unit="NA" xsi:type="PQ" value="Aliza" /> < interpretationCode codeSystem="local" code="*" /> <referenceRange> <observationRange> <text /> </observationRange> </referenceRange> </observation> </component> < component> <observation moodCode="EVN" classCode="OBS"> < templateId root="11.30.840.1.541919.08.03.22.4.2" /> <id nullFlavor="NA " /> <code codeSystem="local" code="UGLU" displayName="Glucose, Urine" /> <statusCode code="completed" /> <effectiveTime value= "684924721425" /> <value unit="" xsi:type="PQ" value="Negative" /> <referenceRange> <observationRange> <text>Negative </text> </observationRange> </referenceRange> </ observation> </component> <component> <observation moodCode= "EVN" classCode="OBS"> <templateId root="11.30.840.1.958211.08.03.224.2 " /> <id nullFlavor="NA" /> <code codeSystem="local" code= "UKET" displayName="Ketones" /> <statusCode code="completed" /> <effectiveTime value="222106422491" /> <value unit="" xsi:type="PQ" value="Trace" /> <interpretationCode codeSystem="local" code="*" /> <referenceRange> <observationRange> <text> Negative</text> </observationRange> </referenceRange> </observation> </component> <component> <observation moodCode ="EVN" classCode="OBS"> <templateId root= "11.30.840.1.882193.08.03.22.4.2" /> <id nullFlavor="NA" /> < code codeSystem="local" code="ULEU" displayName="Leukocyte Esterase" /> <statusCode code="completed" /> <effectiveTime value="157230535683" / > <value unit="NA" xsi:type="PQ" value="Negative" /> < referenceRange> <observationRange> <text>Negative</text > </observationRange> </referenceRange> </observation > </component> <component> <observation moodCode="EVN" classCode="OBS"> <templateId root="216.840.1.178574.10..22.4.2" /> <id nullFlavor="NA" /> <code codeSystem="local" code="UNIT" displayName="Nitrites" /> <statusCode code="completed" /> < effectiveTime value="694572962753" /> <value unit="NA" xsi:type="PQ" value="Negative" /> <referenceRange> <observationRange> <text>Negative</text> </observationRange> </ referenceRange> </observation> </component> <component> <observation moodCode="EVN" classCode="OBS"> <templateId root= "16.840.1.745527.10..22.4.2" /> <id nullFlavor="NA" /> < code codeSystem="local" code="UPH" displayName="pH" /> <statusCode code ="completed" /> <effectiveTime value="769622733956" /> <value unit="NA" xsi:type="PQ" value="5.0" /> <referenceRange> < observationRange> <text>5.0-8.0</text> </ observationRange> </referenceRange> </observation> </ component> <component> <observation moodCode="EVN" classCode="OBS"> <templateId root="16.840.1.286332..22.4.2" /> <id nullFlavor="NA" /> <code codeSystem="local" code="UPRO" displayName= "Protein" /> <statusCode code="completed" /> <effectiveTime value="507152950296" /> <value unit="NA" xsi:type="PQ" value="Pos 2+" / > <interpretationCode codeSystem="local" code="*" /> < referenceRange> <observationRange> <text>Negative</text > </observationRange> </referenceRange> </observation > </component> <component> <observation moodCode="EVN" classCode="OBS"> <templateId root="16.840.1.763075.08.03.22.4.2" /> <id nullFlavor="NA" /> <code codeSystem="local" code="USPG" displayName="Specific [place]" /> <statusCode code="completed" /> <effectiveTime value="024120670477" /> <value unit="NA" xsi:type= "PQ" value="1.045" /> <interpretationCode codeSystem="local" code="*" / > <referenceRange> <observationRange> <text> 1.003-1.030</text> </observationRange> </referenceRange> </observation> </component> <component> <observation moodCode="EVN" classCode="OBS"> <templateId root= "11.30.840.1.427609.10.4.2" /> <id nullFlavor="NA" /> < code codeSystem="local" code="UTYP" displayName="UA Collection type" /> <statusCode code="completed" /> <effectiveTime value="600384305928" / > <value unit="NA" xsi:type="PQ" value="Catheter" /> < referenceRange> <observationRange> <text /> < /observationRange> </referenceRange> </observation> </ component> <component> <observation moodCode="EVN" classCode="OBS"> <templateId root="16.840.1.063571.08.03.22.4.2" /> <id nullFlavor="NA" /> <code codeSystem="local" code="UURO" displayName= "Urobilinogen" /> <statusCode code="completed" /> < effectiveTime value="456886248701" /> <value unit="mg/dL" xsi:type="PQ " value="Negative" /> <referenceRange> <observationRange> <text><1.0</text> </observationRange> </ referenceRange> </observation> </component> </organizer> </entry > <entry> <organizer moodCode="EVN" classCode="BATTERY"> <templateId root="16.840.1.741921.1022.4.1" /> <id nullFlavor="NA" /> <code codeSystem="local" code="UMIC" displayName="Urine Microscopic" /> < statusCode code="completed" /> <component> <observation moodCode= "EVN" classCode="OBS"> <templateId root="16.840.1.078105.1022.4.2 " /> <id nullFlavor="NA" /> <code codeSystem="local" code= "UEPI" displayName="Epithelial Cells" /> <statusCode code="completed" / > <effectiveTime value="367768391957" /> <value unit="/HPF" xsi:type="PQ" value="2" /> <referenceRange> < observationRange> <text /> </observationRange> </referenceRange> </observation> </component> <component> <observation moodCode="EVN" classCode="OBS"> <templateId root= "216.840.1.917088.10..22.4.2" /> <id nullFlavor="NA" /> < code codeSystem="local" code="UHCST" displayName="Hyaline Casts" /> < statusCode code="completed" /> <effectiveTime value="105973660283" /> <value unit="/LPF" xsi:type="PQ" value="7" /> < interpretationCode codeSystem="local" code="*" /> <referenceRange> <observationRange> <text>0-3</text> </ observationRange> </referenceRange> </observation> </ component> <component> <observation moodCode="EVN" classCode="OBS"> <templateId root="11.30.840.1.275100.10..4.2" /> <id nullFlavor="NA" /> <code codeSystem="local" code="URBC" displayName= "RBC, Urine" /> <statusCode code="completed" /> < effectiveTime value="767656453745" /> <value unit="/HPF" xsi:type="PQ" value="0" /> <referenceRange> <observationRange> <text>0-2</text> </observationRange> </referenceRange> </observation> </component> <component> <observation moodCode="EVN" classCode="OBS"> <templateId root= "11.30.840.1.527757.10.22.4.2" /> <id nullFlavor="NA" /> < code codeSystem="local" code="UMUC" displayName="Urine Mucus" /> < statusCode code="completed" /> <effectiveTime value="048636927470" /> <value unit="NA" xsi:type="PQ" value="Present" /> < referenceRange> <observationRange> <text /> < /observationRange> </referenceRange> </observation> </ component> <component> <observation moodCode="EVN" classCode="OBS"> <templateId root="2.16.840.1.010338.10..22.4.2" /> <id nullFlavor="NA" /> <code codeSystem="local" code="UWBC" displayName= "WBC, Urine" /> <statusCode code="completed" /> < effectiveTime value="949556177580" /> <value unit="/HPF" xsi:type="PQ" value="2" /> <referenceRange> <observationRange> <text>0-4</text> </observationRange> </referenceRange> </observation> </component> </organizer> </entry> <entry> < organizer moodCode="EVN" classCode="BATTERY"> <templateId root= "2.16.840.1.627923.10..22.4.1" /> <id nullFlavor="NA" /> <code codeSystem="local" code="UDRGH" displayName="Urine Drug Screen" /> < statusCode code="completed" /> <component> <observation moodCode= "EVN" classCode="OBS"> <templateId root="2.16.840.1.811141.10..22.4.2 " /> <id nullFlavor="NA" /> <code codeSystem="local" code= "UAMP1" displayName="Amph/Meth/Ecstasy" /> <statusCode code="completed " /> <effectiveTime value="480447152012" /> <value unit="NA" xsi:type="PQ" value="Positive" /> <interpretationCode codeSystem="local " code="*" /> <referenceRange> <observationRange> <text /> </observationRange> </referenceRange> </ observation> </component> <component> <observation moodCode= "EVN" classCode="OBS"> <templateId root="216.840.1.765424.10..4.2 " /> <id nullFlavor="NA" /> <code codeSystem="local" code= "UBAR1" displayName="Barbiturates" /> <statusCode code="completed" /> <effectiveTime value="" /> <value unit="NA" xsi: type="PQ" value="Negative" /> <referenceRange> < observationRange> <text /> </observationRange> </referenceRange> </observation> </component> <component> <observation moodCode="EVN" classCode="OBS"> <templateId root= "216.840.1.159614.10..4.2" /> <id nullFlavor="NA" /> < code codeSystem="local" code="UBEN1" displayName="Benzodiazepine" /> < statusCode code="completed" /> <effectiveTime value="" /> <value unit="NA" xsi:type="PQ" value="Negative" /> < referenceRange> <observationRange> <text /> < /observationRange> </referenceRange> </observation> </ component> <component> <observation moodCode="EVN" classCode="OBS"> <templateId root="216.840.1.727430.10.4.2" /> <id nullFlavor="NA" /> <code codeSystem="local" code="UCAN1" displayName= "Cannabinoid" /> <statusCode code="completed" /> < effectiveTime value="" /> <value unit="NA" xsi:type="PQ" value="Negative" /> <referenceRange> <observationRange> <text /> </observationRange> </referenceRange> </observation> </component> <component> <observation moodCode="EVN" classCode="OBS"> <templateId root= "216.840.1.112950.10.4.2" /> <id nullFlavor="NA" /> < code codeSystem="local" code="UCOC1" displayName="Cocaine" /> < statusCode code="completed" /> <effectiveTime value="" /> <value unit="NA" xsi:type="PQ" value="Negative" /> < referenceRange> <observationRange> <text /> < /observationRange> </referenceRange> </observation> </ component> <component> <observation moodCode="EVN" classCode="OBS"> <templateId root="11.30.840.1.117180.08.03.22.4.2" /> <id nullFlavor="NA" /> <code codeSystem="local" code="UMTD1" displayName= "EDDP (Methadone met.)" /> <statusCode code="completed" /> < effectiveTime value="" /> <value unit="NA" xsi:type="PQ" value="Negative" /> <referenceRange> <observationRange> <text /> </observationRange> </referenceRange> </observation> </component> <component> <observation moodCode="EVN" classCode="OBS"> <templateId root= "11.30.840.1.848404.08.03.22.4.2" /> <id nullFlavor="NA" /> < code codeSystem="local" code="UOPI1" displayName="Opiate" /> < statusCode code="completed" /> <effectiveTime value="" /> <value unit="NA" xsi:type="PQ" value="Negative" /> < referenceRange> <observationRange> <text /> < /observationRange> </referenceRange> </observation> </ component> <component> <observation moodCode="EVN" classCode="OBS"> <templateId root="2.16.840.1.233349.10..22.4.2" /> <id nullFlavor="NA" /> <code codeSystem="local" code="UPCP1" displayName= "Phencyclidine (PCP)" /> <statusCode code="completed" /> < effectiveTime value="951671257797" /> <value unit="NA" xsi:type="PQ" value="Negative" /> <referenceRange> <observationRange> <text /> </observationRange> </referenceRange> </observation> </component> </organizer> </entry> <entry> < organizer moodCode="EVN" classCode="BATTERY"> <templateId root= "2.16.840.1.495934.10..22.4.1" /> <id nullFlavor="NA" /> <code codeSystem="local" code="SALIC" displayName="Salicylate" /> <statusCode code="completed" /> <component> <observation moodCode="EVN" classCode="OBS"> <templateId root="2.16.840.1.788875.10..22.4.2" /> <id nullFlavor="NA" /> <code codeSystem="local" code="SALIC" displayName="Salicylate" /> <statusCode code="completed" /> < effectiveTime value="332974112434" /> <value unit="mg/dL" xsi:type="PQ " value="<4" /> <referenceRange> <observationRange> <text>0-30</text> </observationRange> </ referenceRange> </observation> </component> </organizer> </entry > <entry> <organizer moodCode="EVN" classCode="BATTERY"> <templateId root="11.30.840.1.187092.08.03.22.4.1" /> <id nullFlavor="NA" /> <code codeSystem="local" code="ACETM" displayName="Acetaminophen" /> <statusCode code="completed" /> <component> <observation moodCode="EVN" classCode="OBS"> <templateId root="840.1.090647.08.03.22.4.2" /> <id nullFlavor="NA" /> <code codeSystem="local" code="ACETM" displayName="Acetaminophen" /> <statusCode code="completed" /> <effectiveTime value="707902607558" /> <value unit="mcg/mL" xsi:type= "PQ" value="277" /> <interpretationCode codeSystem="local" code="" / > <referenceRange> <observationRange> <text>10- 30</text> </observationRange> </referenceRange> </ observation> </component> </organizer> </entry> <entry> <organizer moodCode="EVN" classCode="BATTERY"> <templateId root= "840.1.546287.08.03.22.4.1" /> <id nullFlavor="NA" /> <code codeSystem="local" code="CMP" displayName="Comprehensive Metabolic Panel (CMP)" /> <statusCode code="completed" /> <component> <observation moodCode="EVN" classCode="OBS"> <templateId root= "840.1.508980.08.03.22.4.2" /> <id nullFlavor="NA" /> < code codeSystem="local" code="ALB" displayName="Albumin" /> < statusCode code="completed" /> <effectiveTime value="245228289623" /> <value unit="g/dL" xsi:type="PQ" value="3.9" /> < referenceRange> <observationRange> <text>3.5-4.8</text> </observationRange> </referenceRange> </observation > </component> <component> <observation moodCode="EVN" classCode="OBS"> <templateId root="11.30.840.1.050423.10.20.22.4.2" /> <id nullFlavor="NA" /> <code codeSystem="local" code="ALP" displayName="Alkaline Phosphatase" /> <statusCode code="completed" /> <effectiveTime value="727064897432" /> <value unit="U/L" xsi: type="PQ" value="61" /> <referenceRange> <observationRange> <text>26-104</text> </observationRange> </ referenceRange> </observation> </component> <component> <observation moodCode="EVN" classCode="OBS"> <templateId root= "840.1.636267.10.22.4.2" /> <id nullFlavor="NA" /> < code codeSystem="local" code="ALT" displayName="ALT (SGPT)" /> < statusCode code="completed" /> <effectiveTime value="730347613229" /> <value unit="U/L" xsi:type="PQ" value="19" /> <referenceRange > <observationRange> <text>14-54</text> </ observationRange> </referenceRange> </observation> </ component> <component> <observation moodCode="EVN" classCode="OBS"> <templateId root="11.30.840.1.134142.10.20.22.4.2" /> <id nullFlavor="NA" /> <code codeSystem="local" code="AGAP" displayName= "Anion Gap" /> <statusCode code="completed" /> <effectiveTime value="025575536254" /> <value unit="mEq/L" xsi:type="PQ" value="9" /> <referenceRange> <observationRange> <text>3-20 </text> </observationRange> </referenceRange> </ observation> </component> <component> <observation moodCode= "EVN" classCode="OBS"> <templateId root="11.30.840.1.470259.08.03.22.4.2 " /> <id nullFlavor="NA" /> <code codeSystem="local" code="AST " displayName="AST (SGOT)" /> <statusCode code="completed" /> <effectiveTime value="628094416277" /> <value unit="U/L" xsi:type="PQ" value="22" /> <referenceRange> <observationRange> <text>15-41</text> </observationRange> </referenceRange > </observation> </component> <component> <observation moodCode="EVN" classCode="OBS"> <templateId root= "11.30.840.1.381522.08.03.22.4.2" /> <id nullFlavor="NA" /> < code codeSystem="local" code="BILIT" displayName="Bilirubin Total" /> < statusCode code="completed" /> <effectiveTime value="718181304753" /> <value unit="mg/dL" xsi:type="PQ" value="0.9" /> < referenceRange> <observationRange> <text>0.2-1.2</text> </observationRange> </referenceRange> </observation > </component> <component> <observation moodCode="EVN" classCode="OBS"> <templateId root="216.840.1.194349.08.03.22.4.2" /> <id nullFlavor="NA" /> <code codeSystem="local" code="BUN" displayName="BUN" /> <statusCode code="completed" /> < effectiveTime value="899054945373" /> <value unit="mg/dL" xsi:type="PQ " value="11" /> <referenceRange> <observationRange> <text>4-20</text> </observationRange> </referenceRange > </observation> </component> <component> <observation moodCode="EVN" classCode="OBS"> <templateId root= "2.16.840.1.521856.10..22.4.2" /> <id nullFlavor="NA" /> < code codeSystem="local" code="CA" displayName="Calcium" /> <statusCode code="completed" /> <effectiveTime value="984788632764" /> < value unit="mg/dL" xsi:type="PQ" value="8.5" /> <interpretationCode codeSystem="local" code="*" /> <referenceRange> < observationRange> <text>8.6-10.0</text> </ observationRange> </referenceRange> </observation> </ component> <component> <observation moodCode="EVN" classCode="OBS"> <templateId root="216.840.1.177197.10..22.4.2" /> <id nullFlavor="NA" /> <code codeSystem="local" code="CL" displayName= "Chloride" /> <statusCode code="completed" /> <effectiveTime value="535026598090" /> <value unit="mEq/L" xsi:type="PQ" value="110" / > <interpretationCode codeSystem="local" code="*" /> < referenceRange> <observationRange> <text>99-109</text> </observationRange> </referenceRange> </observation> </component> <component> <observation moodCode="EVN" classCode ="OBS"> <templateId root="216.840.1.335654.10..4.2" /> < id nullFlavor="NA" /> <code codeSystem="local" code="CO2" displayName= "CO2" /> <statusCode code="completed" /> <effectiveTime value= "" /> <value unit="mEq/L" xsi:type="PQ" value="21" /> <interpretationCode codeSystem="local" code="*" /> <referenceRange > <observationRange> <text>22-32</text> </ observationRange> </referenceRange> </observation> </ component> <component> <observation moodCode="EVN" classCode="OBS"> <templateId root="216.840.1.652624.08.03.224.2" /> <id nullFlavor="NA" /> <code codeSystem="local" code="CREAT" displayName= "Creatinine" /> <statusCode code="completed" /> < effectiveTime value="" /> <value unit="mg/dL" xsi:type="PQ " value="0.83" /> <referenceRange> <observationRange> <text>0.44-1.03</text> </observationRange> </ referenceRange> </observation> </component> <component> <observation moodCode="EVN" classCode="OBS"> <templateId root= "216.840.1.592930.10..4.2" /> <id nullFlavor="NA" /> < code codeSystem="local" code="GLOB" displayName="Globulin" /> < statusCode code="completed" /> <effectiveTime value="" /> <value unit="g/dL" xsi:type="PQ" value="2.7" /> < referenceRange> <observationRange> <text>1.9-4.3</text> </observationRange> </referenceRange> </observation > </component> <component> <observation moodCode="EVN" classCode="OBS"> <templateId root="11.30.840.1.806331.10..22.4.2" /> <id nullFlavor="NA" /> <code codeSystem="local" code="GLU" displayName="Glucose" /> <statusCode code="completed" /> < effectiveTime value="796516730051" /> <value unit="mg/dL" xsi:type="PQ " value="90" /> <referenceRange> <observationRange> <text>70-100</text> </observationRange> </ referenceRange> </observation> </component> <component> <observation moodCode="EVN" classCode="OBS"> <templateId root= "840.1.447186.10...4.2" /> <id nullFlavor="NA" /> < code codeSystem="local" code="K" displayName="Potassium" /> < statusCode code="completed" /> <effectiveTime value="434608931791" /> <value unit="mEq/L" xsi:type="PQ" value="3.5" /> < interpretationCode codeSystem="local" code="*" /> <referenceRange> <observationRange> <text>3.6-5.1</text> </ observationRange> </referenceRange> </observation> </ component> <component> <observation moodCode="EVN" classCode="OBS"> <templateId root="840.1.291490.10..22.4.2" /> <id nullFlavor="NA" /> <code codeSystem="local" code="TP" displayName= "Protein" /> <statusCode code="completed" /> <effectiveTime value="738072334479" /> <value unit="g/dL" xsi:type="PQ" value="6.6" / > <referenceRange> <observationRange> <text>6.1 -7.9</text> </observationRange> </referenceRange> </ observation> </component> <component> <observation moodCode= "EVN" classCode="OBS"> <templateId root="16.840.1.873123.10.4.2 " /> <id nullFlavor="NA" /> <code codeSystem="local" code="NA " displayName="Sodium" /> <statusCode code="completed" /> < effectiveTime value="238801084867" /> <value unit="mEq/L" xsi:type="PQ " value="140" /> <referenceRange> <observationRange> <text>136-144</text> </observationRange> </ referenceRange> </observation> </component> </organizer> </entry > <entry> <organizer moodCode="EVN" classCode="BATTERY"> <templateId root="16.840.1.193440.08.03.22.4.1" /> <id nullFlavor="NA" /> <code codeSystem="local" code="ALC" displayName="Alcohol, Blood" /> <statusCode code="completed" /> <component> <observation moodCode="EVN" classCode="OBS"> <templateId root="16.840.1.031484.08.03.22.4.2" /> <id nullFlavor="NA" /> <code codeSystem="local" code="ALC" displayName="Alcohol, Blood" /> <statusCode code="completed" /> <effectiveTime value="122739053268" /> <value unit="mg/dL" xsi:type= "PQ" value="Not Detected" /> <referenceRange> < observationRange> <text /> </observationRange> </referenceRange> </observation> </component> </organizer> </ entry> <entry> <organizer moodCode="EVN" classCode="BATTERY"> < templateId root="11.30.840.1.942576.08.03.22.4.1" /> <id nullFlavor="NA" /> <code codeSystem="local" code="GFR" displayName="eGFR" /> < statusCode code="completed" /> <component> <observation moodCode= "EVN" classCode="OBS"> <templateId root="11.30.840.1.909914.08.03.22.4.2 " /> <id nullFlavor="NA" /> <code codeSystem="local" code="GFR " displayName="eGFR" /> <statusCode code="completed" /> < effectiveTime value="804786411601" /> <value unit="mL/min" xsi:type="PQ " value=">60" /> <referenceRange> <observationRange> <text>>60</text> </observationRange> </ referenceRange> </observation> </component> </organizer> </entry > <entry> <organizer moodCode="EVN" classCode="BATTERY"> <templateId root="11.30.840.1.346234.08.03.22.4.1" /> <id nullFlavor="NA" /> <code codeSystem="local" code="CBCND" displayName="CBC With Platelet No Differential" /> <statusCode code="completed" /> <component> <observation moodCode="EVN" classCode="OBS"> <templateId root= "11.30.840.1.199010.22.4.2" /> <id nullFlavor="NA" /> < code codeSystem="local" code="HCT" displayName="HCT" /> <statusCode code="completed" /> <effectiveTime value="" /> < value unit="%" xsi:type="PQ" value="36.8" /> <interpretationCode codeSystem="local" code="*" /> <referenceRange> < observationRange> <text>37.0-47.0</text> </ observationRange> </referenceRange> </observation> </ component> <component> <observation moodCode="EVN" classCode="OBS"> <templateId root="216.840.1.246650.10.4.2" /> <id nullFlavor="NA" /> <code codeSystem="local" code="HGB" displayName="HGB " /> <statusCode code="completed" /> <effectiveTime value= "" /> <value unit="g/dL" xsi:type="PQ" value="12.7" /> <referenceRange> <observationRange> <text>12.0- 16.0</text> </observationRange> </referenceRange> </ observation> </component> <component> <observation moodCode= "EVN" classCode="OBS"> <templateId root="216.840.1.196677...4.2 " /> <id nullFlavor="NA" /> <code codeSystem="local" code="MCH " displayName="MCH" /> <statusCode code="completed" /> < effectiveTime value="" /> <value unit="pg" xsi:type="PQ" value="31.8" /> <referenceRange> <observationRange> <text>27.0-32.0</text> </observationRange> </ referenceRange> </observation> </component> <component> <observation moodCode="EVN" classCode="OBS"> <templateId root= "216.840.1.489254.10.4.2" /> <id nullFlavor="NA" /> < code codeSystem="local" code="MCHC" displayName="MCHC" /> <statusCode code="completed" /> <effectiveTime value="" /> < value unit="g/dL" xsi:type="PQ" value="34.5" /> <referenceRange> <observationRange> <text>32.0-36.0</text> </ observationRange> </referenceRange> </observation> </ component> <component> <observation moodCode="EVN" classCode="OBS"> <templateId root="11.30.840.1.694460.08.03.22.4.2" /> <id nullFlavor="NA" /> <code codeSystem="local" code="MCV" displayName="MCV " /> <statusCode code="completed" /> <effectiveTime value= "" /> <value unit="fL" xsi:type="PQ" value="92.0" /> <referenceRange> <observationRange> <text>82.0-99.0< /text> </observationRange> </referenceRange> </ observation> </component> <component> <observation moodCode= "EVN" classCode="OBS"> <templateId root="216.840.1.722570.08.03.22.4.2 " /> <id nullFlavor="NA" /> <code codeSystem="local" code="MPV " displayName="MPV" /> <statusCode code="completed" /> < effectiveTime value="" /> <value unit="fL" xsi:type="PQ" value="10.7" /> <referenceRange> <observationRange> <text>9.4-12.4</text> </observationRange> </ referenceRange> </observation> </component> <component> <observation moodCode="EVN" classCode="OBS"> <templateId root= "11.30.840.1.969157.10.2022.4.2" /> <id nullFlavor="NA" /> < code codeSystem="local" code="PLT" displayName="Platelet Count" /> < statusCode code="completed" /> <effectiveTime value="" /> <value unit="K/uL" xsi:type="PQ" value="266" /> < referenceRange> <observationRange> <text>150-400</text> </observationRange> </referenceRange> </observation > </component> <component> <observation moodCode="EVN" classCode="OBS"> <templateId root="840.1.797147.102022.4.2" /> <id nullFlavor="NA" /> <code codeSystem="local" code="RBC" displayName="RBC" /> <statusCode code="completed" /> < effectiveTime value="267402637854" /> <value unit="10*6/uL" xsi:type= "PQ" value="4.00" /> <referenceRange> <observationRange> <text>4.00-5.20</text> </observationRange> </ referenceRange> </observation> </component> <component> <observation moodCode="EVN" classCode="OBS"> <templateId root= "11.30.840.1.946392.10.20.22.4.2" /> <id nullFlavor="NA" /> < code codeSystem="local" code="RDW" displayName="RDW" /> <statusCode code="completed" /> <effectiveTime value="114422600873" /> < value unit="%" xsi:type="PQ" value="13.0" /> <referenceRange> <observationRange> <text>11.5-14.5</text> </ observationRange> </referenceRange> </observation> </ component> <component> <observation moodCode="EVN" classCode="OBS"> <templateId root="11.30.840.1.822054.10.22.4.2" /> <id nullFlavor="NA" /> <code codeSystem="local" code="WBCIR" displayName= "WBC" /> <statusCode code="completed" /> <effectiveTime value= "404785484298" /> <value unit="K/uL" xsi:type="PQ" value="7.3" /> <referenceRange> <observationRange> <text>4.8-10.8< /text> </observationRange> </referenceRange> </ observation> </component> </organizer> </entry> <entry> <organizer moodCode="EVN" classCode="BATTERY"> <templateId root= "11.30.840.1.505629.08.03.22.4.1" /> <id nullFlavor="NA" /> <code codeSystem="local" code="PT" displayName="Protime (INR)" /> <statusCode code="completed" /> <component> <observation moodCode="EVN" classCode="OBS"> <templateId root="840.1.633965..22.4.2" /> <id nullFlavor="NA" /> <code codeSystem="local" code="INR" displayName="INR" /> <statusCode code="completed" /> < effectiveTime value="984395394795" /> <value unit="NA" xsi:type="PQ" value="1.3" /> <interpretationCode codeSystem="local" code="*" /> <referenceRange> <observationRange> <text>0.9-1.2</ text> </observationRange> </referenceRange> </ observation> </component> </organizer> </entry> <entry> <organizer moodCode="EVN" classCode="BATTERY"> <templateId root= "16.840.1.685283.10..4.1" /> <id nullFlavor="NA" /> <code codeSystem="local" code="CMP" displayName="Comprehensive Metabolic Panel (CMP)" /> <statusCode code="completed" /> <component> <observation moodCode="EVN" classCode="OBS"> <templateId root= "16.840.1.829038...4.2" /> <id nullFlavor="NA" /> < code codeSystem="local" code="ALB" displayName="Albumin" /> < statusCode code="completed" /> <effectiveTime value="867942674098" /> <value unit="g/dL" xsi:type="PQ" value="3.3" /> < interpretationCode codeSystem="local" code="*" /> <referenceRange> <observationRange> <text>3.5-4.8</text> </ observationRange> </referenceRange> </observation> </ component> <component> <observation moodCode="EVN" classCode="OBS"> <templateId root="11.30.840.1.644650.08.03.22.4.2" /> <id nullFlavor="NA" /> <code codeSystem="local" code="ALP" displayName= "Alkaline Phosphatase" /> <statusCode code="completed" /> < effectiveTime value="816112894514" /> <value unit="U/L" xsi:type="PQ" value="50" /> <referenceRange> <observationRange> <text>26-104</text> </observationRange> </referenceRange > </observation> </component> <component> <observation moodCode="EVN" classCode="OBS"> <templateId root= "216.840.1.194417.10..22.4.2" /> <id nullFlavor="NA" /> < code codeSystem="local" code="ALT" displayName="ALT (SGPT)" /> < statusCode code="completed" /> <effectiveTime value="196325618177" /> <value unit="U/L" xsi:type="PQ" value="18" /> <referenceRange > <observationRange> <text>14-54</text> </ observationRange> </referenceRange> </observation> </ component> <component> <observation moodCode="EVN" classCode="OBS"> <templateId root="11.30.840.1.643331.10...4.2" /> <id nullFlavor="NA" /> <code codeSystem="local" code="AGAP" displayName= "Anion Gap" /> <statusCode code="completed" /> <effectiveTime value="247443295957" /> <value unit="mEq/L" xsi:type="PQ" value="9" /> <referenceRange> <observationRange> <text>3-20 </text> </observationRange> </referenceRange> </ observation> </component> <component> <observation moodCode= "EVN" classCode="OBS"> <templateId root="11.30.840.1.322995.10..22.4.2 " /> <id nullFlavor="NA" /> <code codeSystem="local" code="AST " displayName="AST (SGOT)" /> <statusCode code="completed" /> <effectiveTime value="697021892992" /> <value unit="U/L" xsi:type="PQ" value="16" /> <referenceRange> <observationRange> <text>15-41</text> </observationRange> </referenceRange > </observation> </component> <component> <observation moodCode="EVN" classCode="OBS"> <templateId root= "11.30.840.1.493508.10..22.4.2" /> <id nullFlavor="NA" /> < code codeSystem="local" code="BILIT" displayName="Bilirubin Total" /> < statusCode code="completed" /> <effectiveTime value="643537000696" /> <value unit="mg/dL" xsi:type="PQ" value="0.5" /> < referenceRange> <observationRange> <text>0.2-1.2</text> </observationRange> </referenceRange> </observation > </component> <component> <observation moodCode="EVN" classCode="OBS"> <templateId root="11.30.840.1.796354...4.2" /> <id nullFlavor="NA" /> <code codeSystem="local" code="BUN" displayName="BUN" /> <statusCode code="completed" /> < effectiveTime value="647684576822" /> <value unit="mg/dL" xsi:type="PQ " value="8" /> <referenceRange> <observationRange> <text>4-20</text> </observationRange> </referenceRange > </observation> </component> <component> <observation moodCode="EVN" classCode="OBS"> <templateId root= "11.30.840.1.149371.08.03.22.4.2" /> <id nullFlavor="NA" /> < code codeSystem="local" code="CA" displayName="Calcium" /> <statusCode code="completed" /> <effectiveTime value="730233293971" /> < value unit="mg/dL" xsi:type="PQ" value="8.3" /> <interpretationCode codeSystem="local" code="*" /> <referenceRange> < observationRange> <text>8.6-10.0</text> </ observationRange> </referenceRange> </observation> </ component> <component> <observation moodCode="EVN" classCode="OBS"> <templateId root="216.840.1.122518.08.03.22.4.2" /> <id nullFlavor="NA" /> <code codeSystem="local" code="CL" displayName= "Chloride" /> <statusCode code="completed" /> <effectiveTime value="227511166437" /> <value unit="mEq/L" xsi:type="PQ" value="109" / > <referenceRange> <observationRange> <text>99- 109</text> </observationRange> </referenceRange> </ observation> </component> <component> <observation moodCode= "EVN" classCode="OBS"> <templateId root="216.840.1.627226.08.03.22.4.2 " /> <id nullFlavor="NA" /> <code codeSystem="local" code="CO2 " displayName="CO2" /> <statusCode code="completed" /> < effectiveTime value="562327518792" /> <value unit="mEq/L" xsi:type="PQ " value="21" /> <interpretationCode codeSystem="local" code="*" /> <referenceRange> <observationRange> <text>22-32</ text> </observationRange> </referenceRange> </ observation> </component> <component> <observation moodCode= "EVN" classCode="OBS"> <templateId root="216.840.1.519999.10.4.2 " /> <id nullFlavor="NA" /> <code codeSystem="local" code= "CREAT" displayName="Creatinine" /> <statusCode code="completed" /> <effectiveTime value="880828366566" /> <value unit="mg/dL" xsi: type="PQ" value="0.68" /> <referenceRange> <observationRange > <text>0.44-1.03</text> </observationRange> </ referenceRange> </observation> </component> <component> <observation moodCode="EVN" classCode="OBS"> <templateId root= "11.30.840.1.320164.08.03.22.4.2" /> <id nullFlavor="NA" /> < code codeSystem="local" code="GLOB" displayName="Globulin" /> < statusCode code="completed" /> <effectiveTime value="212766400876" /> <value unit="g/dL" xsi:type="PQ" value="2.3" /> < referenceRange> <observationRange> <text>1.9-4.3</text> </observationRange> </referenceRange> </observation > </component> <component> <observation moodCode="EVN" classCode="OBS"> <templateId root="11.30.840.1.027450.08.03.22.4.2" /> <id nullFlavor="NA" /> <code codeSystem="local" code="GLU" displayName="Glucose" /> <statusCode code="completed" /> < effectiveTime value="662538650524" /> <value unit="mg/dL" xsi:type="PQ " value="104" /> <interpretationCode codeSystem="local" code="*" /> <referenceRange> <observationRange> <text>70-100< /text> </observationRange> </referenceRange> </ observation> </component> <component> <observation moodCode= "EVN" classCode="OBS"> <templateId root="216.840.1.126252.08.03.22.4.2 " /> <id nullFlavor="NA" /> <code codeSystem="local" code="K" displayName="Potassium" /> <statusCode code="completed" /> < effectiveTime value="394014992251" /> <value unit="mEq/L" xsi:type="PQ " value="3.4" /> <interpretationCode codeSystem="local" code="*" /> <referenceRange> <observationRange> <text>3.6-5.1 </text> </observationRange> </referenceRange> </ observation> </component> <component> <observation moodCode= "EVN" classCode="OBS"> <templateId root="16.840.1.585787.08.03.22.4.2 " /> <id nullFlavor="NA" /> <code codeSystem="local" code="TP " displayName="Protein" /> <statusCode code="completed" /> < effectiveTime value="834632489146" /> <value unit="g/dL" xsi:type="PQ" value="5.6" /> <interpretationCode codeSystem="local" code="*" /> <referenceRange> <observationRange> <text>6.1-7.9</ text> </observationRange> </referenceRange> </ observation> </component> <component> <observation moodCode= "EVN" classCode="OBS"> <templateId root="216.840.1.533414.08.03.22.4.2 " /> <id nullFlavor="NA" /> <code codeSystem="local" code="NA " displayName="Sodium" /> <statusCode code="completed" /> < effectiveTime value="873146248896" /> <value unit="mEq/L" xsi:type="PQ " value="139" /> <referenceRange> <observationRange> <text>136-144</text> </observationRange> </ referenceRange> </observation> </component> </organizer> </entry > <entry> <organizer moodCode="EVN" classCode="BATTERY"> <templateId root="216.840.1.564362...4.1" /> <id nullFlavor="NA" /> <code codeSystem="local" code="ACETM" displayName="Acetaminophen" /> <statusCode code="completed" /> <component> <observation moodCode="EVN" classCode="OBS"> <templateId root="16.840.1.901483....4.2" /> <id nullFlavor="NA" /> <code codeSystem="local" code="ACETM" displayName="Acetaminophen" /> <statusCode code="completed" /> <effectiveTime value="972476410201" /> <value unit="mcg/mL" xsi:type= "PQ" value="45" /> <interpretationCode codeSystem="local" code="*" /> <referenceRange> <observationRange> <text>10-30 </text> </observationRange> </referenceRange> </ observation> </component> </organizer> </entry> <entry> <organizer moodCode="EVN" classCode="BATTERY"> <templateId root= "16.840.1.214561.08.03.22.4.1" /> <id nullFlavor="NA" /> <code codeSystem="local" code="GFR" displayName="eGFR" /> <statusCode code= "completed" /> <component> <observation moodCode="EVN" classCode= "OBS"> <templateId root="11.30.840.1.580985.1022.4.2" /> < id nullFlavor="NA" /> <code codeSystem="local" code="GFR" displayName= "eGFR" /> <statusCode code="completed" /> <effectiveTime value ="404693806487" /> <value unit="mL/min" xsi:type="PQ" value=">60" / > <referenceRange> <observationRange> <text>&gt ;60</text> </observationRange> </referenceRange> </ observation> </component> </organizer> </entry> <entry> <organizer moodCode="EVN" classCode="BATTERY"> <templateId root= "840.1.197183.08.03.22.4.1" /> <id nullFlavor="NA" /> <code codeSystem="local" code="CMP" displayName="Comprehensive Metabolic Panel (CMP)" /> <statusCode code="completed" /> <component> <observation moodCode="EVN" classCode="OBS"> <templateId root= "11.30.840.1.364399.10.4.2" /> <id nullFlavor="NA" /> < code codeSystem="local" code="ALB" displayName="Albumin" /> < statusCode code="completed" /> <effectiveTime value="237894910145" /> <value unit="g/dL" xsi:type="PQ" value="3.2" /> < interpretationCode codeSystem="local" code="*" /> <referenceRange> <observationRange> <text>3.5-4.8</text> </ observationRange> </referenceRange> </observation> </ component> <component> <observation moodCode="EVN" classCode="OBS"> <templateId root="216.840.1.133557.10...4.2" /> <id nullFlavor="NA" /> <code codeSystem="local" code="ALP" displayName= "Alkaline Phosphatase" /> <statusCode code="completed" /> < effectiveTime value="" /> <value unit="U/L" xsi:type="PQ" value="45" /> <referenceRange> <observationRange> <text>26-104</text> </observationRange> </referenceRange > </observation> </component> <component> <observation moodCode="EVN" classCode="OBS"> <templateId root= "11.30.840.1.129371.10.4.2" /> <id nullFlavor="NA" /> < code codeSystem="local" code="ALT" displayName="ALT (SGPT)" /> < statusCode code="completed" /> <effectiveTime value="556654796586" /> <value unit="U/L" xsi:type="PQ" value="17" /> <referenceRange > <observationRange> <text>14-54</text> </ observationRange> </referenceRange> </observation> </ component> <component> <observation moodCode="EVN" classCode="OBS"> <templateId root="216.840.1.736571.10...4.2" /> <id nullFlavor="NA" /> <code codeSystem="local" code="AGAP" displayName= "Anion Gap" /> <statusCode code="completed" /> <effectiveTime value="" /> <value unit="mEq/L" xsi:type="PQ" value="6" /> <referenceRange> <observationRange> <text>3-20 </text> </observationRange> </referenceRange> </ observation> </component> <component> <observation moodCode= "EVN" classCode="OBS"> <templateId root="16.840.1.995105.10..22.4.2 " /> <id nullFlavor="NA" /> <code codeSystem="local" code="AST " displayName="AST (SGOT)" /> <statusCode code="completed" /> <effectiveTime value="740803416917" /> <value unit="U/L" xsi:type="PQ" value="14" /> <interpretationCode codeSystem="local" code="*" /> <referenceRange> <observationRange> <text>15-41</ text> </observationRange> </referenceRange> </ observation> </component> <component> <observation moodCode= "EVN" classCode="OBS"> <templateId root="11.30.840.1.192726.08.03.22.4.2 " /> <id nullFlavor="NA" /> <code codeSystem="local" code= "BILIT" displayName="Bilirubin Total" /> <statusCode code="completed" / > <effectiveTime value="237757360169" /> <value unit="mg/dL" xsi:type="PQ" value="0.8" /> <referenceRange> < observationRange> <text>0.2-1.2</text> </ observationRange> </referenceRange> </observation> </ component> <component> <observation moodCode="EVN" classCode="OBS"> <templateId root="11.30.840.1.697717.10..22.4.2" /> <id nullFlavor="NA" /> <code codeSystem="local" code="BUN" displayName="BUN " /> <statusCode code="completed" /> <effectiveTime value= "328702655469" /> <value unit="mg/dL" xsi:type="PQ" value="5" /> <referenceRange> <observationRange> <text>4-20</text > </observationRange> </referenceRange> </observation > </component> <component> <observation moodCode="EVN" classCode="OBS"> <templateId root="216.840.1.040143.10..22.4.2" /> <id nullFlavor="NA" /> <code codeSystem="local" code="CA" displayName="Calcium" /> <statusCode code="completed" /> < effectiveTime value="788152160334" /> <value unit="mg/dL" xsi:type="PQ " value="8.0" /> <interpretationCode codeSystem="local" code="*" /> <referenceRange> <observationRange> <text>8.6- 10.0</text> </observationRange> </referenceRange> </ observation> </component> <component> <observation moodCode= "EVN" classCode="OBS"> <templateId root="216.840.1.909115.10.20.22.4.2 " /> <id nullFlavor="NA" /> <code codeSystem="local" code="CL " displayName="Chloride" /> <statusCode code="completed" /> < effectiveTime value="749429877574" /> <value unit="mEq/L" xsi:type="PQ " value="109" /> <referenceRange> <observationRange> <text>99-109</text> </observationRange> </ referenceRange> </observation> </component> <component> <observation moodCode="EVN" classCode="OBS"> <templateId root= "16.840.1.164225.10.22.4.2" /> <id nullFlavor="NA" /> < code codeSystem="local" code="CO2" displayName="CO2" /> <statusCode code="completed" /> <effectiveTime value="" /> < value unit="mEq/L" xsi:type="PQ" value="23" /> <referenceRange> <observationRange> <text>22-32</text> </ observationRange> </referenceRange> </observation> </ component> <component> <observation moodCode="EVN" classCode="OBS"> <templateId root="16.840.1.994772...4.2" /> <id nullFlavor="NA" /> <code codeSystem="local" code="CREAT" displayName= "Creatinine" /> <statusCode code="completed" /> < effectiveTime value="" /> <value unit="mg/dL" xsi:type="PQ " value="0.78" /> <referenceRange> <observationRange> <text>0.44-1.03</text> </observationRange> </ referenceRange> </observation> </component> <component> <observation moodCode="EVN" classCode="OBS"> <templateId root= "11.30.840.1.966423.1022.4.2" /> <id nullFlavor="NA" /> < code codeSystem="local" code="GLOB" displayName="Globulin" /> < statusCode code="completed" /> <effectiveTime value="303863544019" /> <value unit="g/dL" xsi:type="PQ" value="2.3" /> < referenceRange> <observationRange> <text>1.9-4.3</text> </observationRange> </referenceRange> </observation > </component> <component> <observation moodCode="EVN" classCode="OBS"> <templateId root="11.30.840.1.983918.08.03.22.4.2" /> <id nullFlavor="NA" /> <code codeSystem="local" code="GLU" displayName="Glucose" /> <statusCode code="completed" /> < effectiveTime value="" /> <value unit="mg/dL" xsi:type="PQ " value="99" /> <referenceRange> <observationRange> <text>70-100</text> </observationRange> </ referenceRange> </observation> </component> <component> <observation moodCode="EVN" classCode="OBS"> <templateId root= "11.30.840.1.426945.08.03.22.4.2" /> <id nullFlavor="NA" /> < code codeSystem="local" code="K" displayName="Potassium" /> < statusCode code="completed" /> <effectiveTime value="" /> <value unit="mEq/L" xsi:type="PQ" value="3.0" /> < interpretationCode codeSystem="local" code="*" /> <referenceRange> <observationRange> <text>3.6-5.1</text> </ observationRange> </referenceRange> </observation> </ component> <component> <observation moodCode="EVN" classCode="OBS"> <templateId root="11.30.840.1.965626.08.03.22.4.2" /> <id nullFlavor="NA" /> <code codeSystem="local" code="TP" displayName= "Protein" /> <statusCode code="completed" /> <effectiveTime value="" /> <value unit="g/dL" xsi:type="PQ" value="5.5" / > <interpretationCode codeSystem="local" code="*" /> < referenceRange> <observationRange> <text>6.1-7.9</text> </observationRange> </referenceRange> </observation > </component> <component> <observation moodCode="EVN" classCode="OBS"> <templateId root="16.840.1.064941.08.03.22.4.2" /> <id nullFlavor="NA" /> <code codeSystem="local" code="NA" displayName="Sodium" /> <statusCode code="completed" /> < effectiveTime value="" /> <value unit="mEq/L" xsi:type="PQ " value="138" /> <referenceRange> <observationRange> <text>136-144</text> </observationRange> </ referenceRange> </observation> </component> </organizer> </entry > <entry> <organizer moodCode="EVN" classCode="BATTERY"> <templateId root="16.840.1.985671.08.03.22.4.1" /> <id nullFlavor="NA" /> <code codeSystem="local" code="ACETM" displayName="Acetaminophen" /> <statusCode code="completed" /> <component> <observation moodCode="EVN" classCode="OBS"> <templateId root="16.840.1.541065.08.03.22.4.2" /> <id nullFlavor="NA" /> <code codeSystem="local" code="ACETM" displayName="Acetaminophen" /> <statusCode code="completed" /> <effectiveTime value="513999254253" /> <value unit="mcg/mL" xsi:type= "PQ" value="<10" /> <referenceRange> <observationRange> <text>10-30</text> </observationRange> </ referenceRange> </observation> </component> </organizer> </entry > <entry> <organizer moodCode="EVN" classCode="BATTERY"> <templateId root="11.30.840.1.207417.2022.4.1" /> <id nullFlavor="NA" /> <code codeSystem="local" code="GFR" displayName="eGFR" /> <statusCode code= "completed" /> <component> <observation moodCode="EVN" classCode= "OBS"> <templateId root="840.1.782503.08.03.22.4.2" /> < id nullFlavor="NA" /> <code codeSystem="local" code="GFR" displayName= "eGFR" /> <statusCode code="completed" /> <effectiveTime value ="080729716264" /> <value unit="mL/min" xsi:type="PQ" value=">60" / > <referenceRange> <observationRange> <text>&gt ;60</text> </observationRange> </referenceRange> </ observation> </component> </organizer> </entry> <entry> <organizer moodCode="EVN" classCode="BATTERY"> <templateId root= "11.30.840.1.658010.22.4.1" /> <id nullFlavor="NA" /> <code codeSystem="local" code="CBCND" displayName="CBC With Platelet No Differential" /> <statusCode code="completed" /> <component> <observation moodCode="EVN" classCode="OBS"> <templateId root= "11.30.840.1.215963.22.4.2" /> <id nullFlavor="NA" /> < code codeSystem="local" code="HCT" displayName="HCT" /> <statusCode code="completed" /> <effectiveTime value="" /> < value unit="%" xsi:type="PQ" value="35.8" /> <interpretationCode codeSystem="local" code="*" /> <referenceRange> < observationRange> <text>37.0-47.0</text> </ observationRange> </referenceRange> </observation> </ component> <component> <observation moodCode="EVN" classCode="OBS"> <templateId root="2.16.840.1.637752.10..4.2" /> <id nullFlavor="NA" /> <code codeSystem="local" code="HGB" displayName="HGB " /> <statusCode code="completed" /> <effectiveTime value= "" /> <value unit="g/dL" xsi:type="PQ" value="11.9" /> <interpretationCode codeSystem="local" code="*" /> < referenceRange> <observationRange> <text>12.0-16.0</text > </observationRange> </referenceRange> </observation > </component> <component> <observation moodCode="EVN" classCode="OBS"> <templateId root="216.840.1.022740.102022.4.2" /> <id nullFlavor="NA" /> <code codeSystem="local" code="MCH" displayName="MCH" /> <statusCode code="completed" /> < effectiveTime value="695635928217" /> <value unit="pg" xsi:type="PQ" value="30.7" /> <referenceRange> <observationRange> <text>27.0-32.0</text> </observationRange> </ referenceRange> </observation> </component> <component> <observation moodCode="EVN" classCode="OBS"> <templateId root= "11.30.840.1.188028.1022.4.2" /> <id nullFlavor="NA" /> < code codeSystem="local" code="MCHC" displayName="MCHC" /> <statusCode code="completed" /> <effectiveTime value="" /> < value unit="g/dL" xsi:type="PQ" value="33.2" /> <referenceRange> <observationRange> <text>32.0-36.0</text> </ observationRange> </referenceRange> </observation> </ component> <component> <observation moodCode="EVN" classCode="OBS"> <templateId root="11.30.840.1.538041.22.4.2" /> <id nullFlavor="NA" /> <code codeSystem="local" code="MCV" displayName="MCV " /> <statusCode code="completed" /> <effectiveTime value= "" /> <value unit="fL" xsi:type="PQ" value="92.5" /> <referenceRange> <observationRange> <text>82.0-99.0< /text> </observationRange> </referenceRange> </ observation> </component> <component> <observation moodCode= "EVN" classCode="OBS"> <templateId root="16.840.1.492729.102022.4.2 " /> <id nullFlavor="NA" /> <code codeSystem="local" code="MPV " displayName="MPV" /> <statusCode code="completed" /> < effectiveTime value="" /> <value unit="fL" xsi:type="PQ" value="10.5" /> <referenceRange> <observationRange> <text>9.4-12.4</text> </observationRange> </ referenceRange> </observation> </component> <component> <observation moodCode="EVN" classCode="OBS"> <templateId root= "11.30.840.1.229406.10.20.22.4.2" /> <id nullFlavor="NA" /> < code codeSystem="local" code="PLT" displayName="Platelet Count" /> < statusCode code="completed" /> <effectiveTime value="262921577918" /> <value unit="K/uL" xsi:type="PQ" value="196" /> < referenceRange> <observationRange> <text>150-400</text> </observationRange> </referenceRange> </observation > </component> <component> <observation moodCode="EVN" classCode="OBS"> <templateId root="11.30.840.1.482366.10..22.4.2" /> <id nullFlavor="NA" /> <code codeSystem="local" code="RBC" displayName="RBC" /> <statusCode code="completed" /> < effectiveTime value="069989034973" /> <value unit="10*6/uL" xsi:type= "PQ" value="3.87" /> <interpretationCode codeSystem="local" code="*" / > <referenceRange> <observationRange> <text> 4.00-5.20</text> </observationRange> </referenceRange> </observation> </component> <component> <observation moodCode="EVN" classCode="OBS"> <templateId root= "11.30.840.1.593976.10.20.22.4.2" /> <id nullFlavor="NA" /> < code codeSystem="local" code="RDW" displayName="RDW" /> <statusCode code="completed" /> <effectiveTime value="230231518541" /> < value unit="%" xsi:type="PQ" value="13.1" /> <referenceRange> <observationRange> <text>11.5-14.5</text> </ observationRange> </referenceRange> </observation> </ component> <component> <observation moodCode="EVN" classCode="OBS"> <templateId root="840.1.510281.1022.4.2" /> <id nullFlavor="NA" /> <code codeSystem="local" code="WBCIR" displayName= "WBC" /> <statusCode code="completed" /> <effectiveTime value= "848142241963" /> <value unit="K/uL" xsi:type="PQ" value="5.1" /> <referenceRange> <observationRange> <text>4.8-10.8< /text> </observationRange> </referenceRange> </ observation> </component> </organizer> </entry> <entry> <organizer moodCode="EVN" classCode="BATTERY"> <templateId root= "840.1.146787.22.4.1" /> <id nullFlavor="NA" /> <code codeSystem="local" code="CMP" displayName="Comprehensive Metabolic Panel (CMP)" /> <statusCode code="completed" /> <component> <observation moodCode="EVN" classCode="OBS"> <templateId root= "840.1.424650.10.2022.4.2" /> <id nullFlavor="NA" /> < code codeSystem="local" code="ALB" displayName="Albumin" /> < statusCode code="completed" /> <effectiveTime value="" /> <value unit="g/dL" xsi:type="PQ" value="3.2" /> < interpretationCode codeSystem="local" code="*" /> <referenceRange> <observationRange> <text>3.5-4.8</text> </ observationRange> </referenceRange> </observation> </ component> <component> <observation moodCode="EVN" classCode="OBS"> <templateId root="11.30.840.1.059259.10..4.2" /> <id nullFlavor="NA" /> <code codeSystem="local" code="ALP" displayName= "Alkaline Phosphatase" /> <statusCode code="completed" /> < effectiveTime value="" /> <value unit="U/L" xsi:type="PQ" value="45" /> <referenceRange> <observationRange> <text>26-104</text> </observationRange> </referenceRange > </observation> </component> <component> <observation moodCode="EVN" classCode="OBS"> <templateId root= "11.30.840.1.459373.10..4.2" /> <id nullFlavor="NA" /> < code codeSystem="local" code="ALT" displayName="ALT (SGPT)" /> < statusCode code="completed" /> <effectiveTime value="" /> <value unit="U/L" xsi:type="PQ" value="18" /> <referenceRange > <observationRange> <text>14-54</text> </ observationRange> </referenceRange> </observation> </ component> <component> <observation moodCode="EVN" classCode="OBS"> <templateId root="11.30.840.1.902700...4.2" /> <id nullFlavor="NA" /> <code codeSystem="local" code="AGAP" displayName= "Anion Gap" /> <statusCode code="completed" /> <effectiveTime value="" /> <value unit="mEq/L" xsi:type="PQ" value="6" /> <referenceRange> <observationRange> <text>3-20 </text> </observationRange> </referenceRange> </ observation> </component> <component> <observation moodCode= "EVN" classCode="OBS"> <templateId root="216.840.1.511491.10..4.2 " /> <id nullFlavor="NA" /> <code codeSystem="local" code="AST " displayName="AST (SGOT)" /> <statusCode code="completed" /> <effectiveTime value="" /> <value unit="U/L" xsi:type="PQ" value="15" /> <referenceRange> <observationRange> <text>15-41</text> </observationRange> </referenceRange > </observation> </component> <component> <observation moodCode="EVN" classCode="OBS"> <templateId root= "2.16.840.1.497924.10...4.2" /> <id nullFlavor="NA" /> < code codeSystem="local" code="BILIT" displayName="Bilirubin Total" /> < statusCode code="completed" /> <effectiveTime value="" /> <value unit="mg/dL" xsi:type="PQ" value="0.9" /> < referenceRange> <observationRange> <text>0.2-1.2</text> </observationRange> </referenceRange> </observation > </component> <component> <observation moodCode="EVN" classCode="OBS"> <templateId root="11.30.840.1.633901.10.20.22.4.2" /> <id nullFlavor="NA" /> <code codeSystem="local" code="BUN" displayName="BUN" /> <statusCode code="completed" /> < effectiveTime value="000311969603" /> <value unit="mg/dL" xsi:type="PQ " value="6" /> <referenceRange> <observationRange> <text>4-20</text> </observationRange> </referenceRange > </observation> </component> <component> <observation moodCode="EVN" classCode="OBS"> <templateId root= "11.30.840.1.147121.1020.22.4.2" /> <id nullFlavor="NA" /> < code codeSystem="local" code="CA" displayName="Calcium" /> <statusCode code="completed" /> <effectiveTime value="080478157169" /> < value unit="mg/dL" xsi:type="PQ" value="8.2" /> <interpretationCode codeSystem="local" code="*" /> <referenceRange> < observationRange> <text>8.6-10.0</text> </ observationRange> </referenceRange> </observation> </ component> <component> <observation moodCode="EVN" classCode="OBS"> <templateId root="11.30.840.1.688659.10.20.22.4.2" /> <id nullFlavor="NA" /> <code codeSystem="local" code="CL" displayName= "Chloride" /> <statusCode code="completed" /> <effectiveTime value="868163160737" /> <value unit="mEq/L" xsi:type="PQ" value="111" / > <interpretationCode codeSystem="local" code="*" /> < referenceRange> <observationRange> <text>99-109</text> </observationRange> </referenceRange> </observation> </component> <component> <observation moodCode="EVN" classCode ="OBS"> <templateId root="16.840.1.481717.10..4.2" /> < id nullFlavor="NA" /> <code codeSystem="local" code="CO2" displayName= "CO2" /> <statusCode code="completed" /> <effectiveTime value= "" /> <value unit="mEq/L" xsi:type="PQ" value="22" /> <referenceRange> <observationRange> <text>22-32</ text> </observationRange> </referenceRange> </ observation> </component> <component> <observation moodCode= "EVN" classCode="OBS"> <templateId root="11.30.840.1.742973.10.4.2 " /> <id nullFlavor="NA" /> <code codeSystem="local" code= "CREAT" displayName="Creatinine" /> <statusCode code="completed" /> <effectiveTime value="" /> <value unit="mg/dL" xsi: type="PQ" value="0.63" /> <referenceRange> <observationRange > <text>0.44-1.03</text> </observationRange> </ referenceRange> </observation> </component> <component> <observation moodCode="EVN" classCode="OBS"> <templateId root= "11.30.840.1.344232.10.4.2" /> <id nullFlavor="NA" /> < code codeSystem="local" code="GLOB" displayName="Globulin" /> < statusCode code="completed" /> <effectiveTime value="" /> <value unit="g/dL" xsi:type="PQ" value="2.3" /> < referenceRange> <observationRange> <text>1.9-4.3</text> </observationRange> </referenceRange> </observation > </component> <component> <observation moodCode="EVN" classCode="OBS"> <templateId root="11.30.840.1.339178.22.4.2" /> <id nullFlavor="NA" /> <code codeSystem="local" code="GLU" displayName="Glucose" /> <statusCode code="completed" /> < effectiveTime value="" /> <value unit="mg/dL" xsi:type="PQ " value="79" /> <referenceRange> <observationRange> <text>70-100</text> </observationRange> </ referenceRange> </observation> </component> <component> <observation moodCode="EVN" classCode="OBS"> <templateId root= "11.30.840.1.200943.08.03.22.4.2" /> <id nullFlavor="NA" /> < code codeSystem="local" code="K" displayName="Potassium" /> < statusCode code="completed" /> <effectiveTime value="" /> <value unit="mEq/L" xsi:type="PQ" value="3.0" /> < interpretationCode codeSystem="local" code="*" /> <referenceRange> <observationRange> <text>3.6-5.1</text> </ observationRange> </referenceRange> </observation> </ component> <component> <observation moodCode="EVN" classCode="OBS"> <templateId root="11.30.840.1.772958.08.03.22.4.2" /> <id nullFlavor="NA" /> <code codeSystem="local" code="TP" displayName= "Protein" /> <statusCode code="completed" /> <effectiveTime value="324845424702" /> <value unit="g/dL" xsi:type="PQ" value="5.5" / > <interpretationCode codeSystem="local" code="*" /> < referenceRange> <observationRange> <text>6.1-7.9</text> </observationRange> </referenceRange> </observation > </component> <component> <observation moodCode="EVN" classCode="OBS"> <templateId root="840.1.185433.08.03.22.4.2" /> <id nullFlavor="NA" /> <code codeSystem="local" code="NA" displayName="Sodium" /> <statusCode code="completed" /> < effectiveTime value="" /> <value unit="mEq/L" xsi:type="PQ " value="139" /> <referenceRange> <observationRange> <text>136-144</text> </observationRange> </ referenceRange> </observation> </component> </organizer> </entry > <entry> <organizer moodCode="EVN" classCode="BATTERY"> <templateId root="840.1.648486.08.03.22.4.1" /> <id nullFlavor="NA" /> <code codeSystem="local" code="GFR" displayName="eGFR" /> <statusCode code= "completed" /> <component> <observation moodCode="EVN" classCode= "OBS"> <templateId root="840.1.525740.08.03.22.4.2" /> < id nullFlavor="NA" /> <code codeSystem="local" code="GFR" displayName= "eGFR" /> <statusCode code="completed" /> <effectiveTime value ="850877906939" /> <value unit="mL/min" xsi:type="PQ" value=">60" / > <referenceRange> <observationRange> <text>&gt ;60</text> </observationRange> </referenceRange> </ observation> </component> </organizer> </entry> <entry> <organizer moodCode="EVN" classCode="BATTERY"> <templateId root= "16.840.1.644984.10..22.4.1" /> <id nullFlavor="NA" /> <code codeSystem="local" code="CBCND" displayName="CBC With Platelet No Differential" /> <statusCode code="completed" /> <component> <observation moodCode="EVN" classCode="OBS"> <templateId root= "11.30.840.1.848090.10.20.22.4.2" /> <id nullFlavor="NA" /> < code codeSystem="local" code="HCT" displayName="HCT" /> <statusCode code="completed" /> <effectiveTime value="[id number]" /> < value unit="%" xsi:type="PQ" value="36.3" /> <interpretationCode codeSystem="local" code="*" /> <referenceRange> < observationRange> <text>37.0-47.0</text> </ observationRange> </referenceRange> </observation> </ component> <component> <observation moodCode="EVN" classCode="OBS"> <templateId root="16.840.1.492762.10.20.22.4.2" /> <id nullFlavor="NA" /> <code codeSystem="local" code="HGB" displayName="HGB " /> <statusCode code="completed" /> <effectiveTime value= "[id number]" /> <value unit="g/dL" xsi:type="PQ" value="11.8" /> <interpretationCode codeSystem="local" code="*" /> < referenceRange> <observationRange> <text>12.0-16.0</text > </observationRange> </referenceRange> </observation > </component> <component> <observation moodCode="EVN" classCode="OBS"> <templateId root="216.840.1.443227.10.20.22.4.2" /> <id nullFlavor="NA" /> <code codeSystem="local" code="MCH" displayName="MCH" /> <statusCode code="completed" /> < effectiveTime value="" /> <value unit="pg" xsi:type="PQ" value="30.8" /> <referenceRange> <observationRange> <text>27.0-32.0</text> </observationRange> </ referenceRange> </observation> </component> <component> <observation moodCode="EVN" classCode="OBS"> <templateId root= "216.840.1.885626.10.20.22.4.2" /> <id nullFlavor="NA" /> < code codeSystem="local" code="MCHC" displayName="MCHC" /> <statusCode code="completed" /> <effectiveTime value="[id number]" /> < value unit="g/dL" xsi:type="PQ" value="32.5" /> <referenceRange> <observationRange> <text>32.0-36.0</text> </ observationRange> </referenceRange> </observation> </ component> <component> <observation moodCode="EVN" classCode="OBS"> <templateId root="16.840.1.633464.10..22.4.2" /> <id nullFlavor="NA" /> <code codeSystem="local" code="MCV" displayName="MCV " /> <statusCode code="completed" /> <effectiveTime value= "" /> <value unit="fL" xsi:type="PQ" value="94.8" /> <referenceRange> <observationRange> <text>82.0-99.0< /text> </observationRange> </referenceRange> </ observation> </component> <component> <observation moodCode= "EVN" classCode="OBS"> <templateId root="11.30.840.1.869869...4.2 " /> <id nullFlavor="NA" /> <code codeSystem="local" code="MPV " displayName="MPV" /> <statusCode code="completed" /> < effectiveTime value="" /> <value unit="fL" xsi:type="PQ" value="10.5" /> <referenceRange> <observationRange> <text>9.4-12.4</text> </observationRange> </ referenceRange> </observation> </component> <component> <observation moodCode="EVN" classCode="OBS"> <templateId root= "11.30.840.1.995570.22.4.2" /> <id nullFlavor="NA" /> < code codeSystem="local" code="PLT" displayName="Platelet Count" /> < statusCode code="completed" /> <effectiveTime value="" /> <value unit="K/uL" xsi:type="PQ" value="184" /> < referenceRange> <observationRange> <text>150-400</text> </observationRange> </referenceRange> </observation > </component> <component> <observation moodCode="EVN" classCode="OBS"> <templateId root="216.840.1.832384.1022.4.2" /> <id nullFlavor="NA" /> <code codeSystem="local" code="RBC" displayName="RBC" /> <statusCode code="completed" /> < effectiveTime value="" /> <value unit="10*6/uL" xsi:type= "PQ" value="3.83" /> <interpretationCode codeSystem="local" code="*" / > <referenceRange> <observationRange> <text> 4.00-5.20</text> </observationRange> </referenceRange> </observation> </component> <component> <observation moodCode="EVN" classCode="OBS"> <templateId root= "11.30.840.1.873241.08.03.22.4.2" /> <id nullFlavor="NA" /> < code codeSystem="local" code="RDW" displayName="RDW" /> <statusCode code="completed" /> <effectiveTime value="" /> < value unit="%" xsi:type="PQ" value="13.3" /> <referenceRange> <observationRange> <text>11.5-14.5</text> </ observationRange> </referenceRange> </observation> </ component> <component> <observation moodCode="EVN" classCode="OBS"> <templateId root="16.840.1.582242.22.4.2" /> <id nullFlavor="NA" /> <code codeSystem="local" code="WBCIR" displayName= "WBC" /> <statusCode code="completed" /> <effectiveTime value= "" /> <value unit="K/uL" xsi:type="PQ" value="5.0" /> <referenceRange> <observationRange> <text>4.8-10.8< /text> </observationRange> </referenceRange> </ observation> </component> </organizer> </entry> <entry> <organizer moodCode="EVN" classCode="BATTERY"> <templateId root= "16.840.1.688368.10.4.1" /> <id nullFlavor="NA" /> <code codeSystem="local" code="CMP" displayName="Comprehensive Metabolic Panel (CMP)" /> <statusCode code="completed" /> <component> <observation moodCode="EVN" classCode="OBS"> <templateId root= "16.840.1.616370.10...4.2" /> <id nullFlavor="NA" /> < code codeSystem="local" code="ALB" displayName="Albumin" /> < statusCode code="completed" /> <effectiveTime value="210842763446" /> <value unit="g/dL" xsi:type="PQ" value="3.4" /> < interpretationCode codeSystem="local" code="*" /> <referenceRange> <observationRange> <text>3.5-4.8</text> </ observationRange> </referenceRange> </observation> </ component> <component> <observation moodCode="EVN" classCode="OBS"> <templateId root="11.30.840.1.527246.08.03.22.4.2" /> <id nullFlavor="NA" /> <code codeSystem="local" code="ALP" displayName= "Alkaline Phosphatase" /> <statusCode code="completed" /> < effectiveTime value="441579555869" /> <value unit="U/L" xsi:type="PQ" value="47" /> <referenceRange> <observationRange> <text>26-104</text> </observationRange> </referenceRange > </observation> </component> <component> <observation moodCode="EVN" classCode="OBS"> <templateId root= "11.30.840.1.836570.10.20.22.4.2" /> <id nullFlavor="NA" /> < code codeSystem="local" code="ALT" displayName="ALT (SGPT)" /> < statusCode code="completed" /> <effectiveTime value="" /> <value unit="U/L" xsi:type="PQ" value="24" /> <referenceRange > <observationRange> <text>14-54</text> </ observationRange> </referenceRange> </observation> </ component> <component> <observation moodCode="EVN" classCode="OBS"> <templateId root="11.30.840.1.969123.10..22.4.2" /> <id nullFlavor="NA" /> <code codeSystem="local" code="AGAP" displayName= "Anion Gap" /> <statusCode code="completed" /> <effectiveTime value="493431527768" /> <value unit="mEq/L" xsi:type="PQ" value="6" /> <referenceRange> <observationRange> <text>3-20 </text> </observationRange> </referenceRange> </ observation> </component> <component> <observation moodCode= "EVN" classCode="OBS"> <templateId root="11.30.840.1.122785.10.20.22.4.2 " /> <id nullFlavor="NA" /> <code codeSystem="local" code="AST " displayName="AST (SGOT)" /> <statusCode code="completed" /> <effectiveTime value="" /> <value unit="U/L" xsi:type="PQ" value="24" /> <referenceRange> <observationRange> <text>15-41</text> </observationRange> </referenceRange > </observation> </component> <component> <observation moodCode="EVN" classCode="OBS"> <templateId root= "11.30.840.1.605347.08.03.22.4.2" /> <id nullFlavor="NA" /> < code codeSystem="local" code="BILIT" displayName="Bilirubin Total" /> < statusCode code="completed" /> <effectiveTime value="" /> <value unit="mg/dL" xsi:type="PQ" value="0.6" /> < referenceRange> <observationRange> <text>0.2-1.2</text> </observationRange> </referenceRange> </observation > </component> <component> <observation moodCode="EVN" classCode="OBS"> <templateId root="11.30.840.1.751318.08.03.22.4.2" /> <id nullFlavor="NA" /> <code codeSystem="local" code="BUN" displayName="BUN" /> <statusCode code="completed" /> < effectiveTime value="" /> <value unit="mg/dL" xsi:type="PQ " value="8" /> <referenceRange> <observationRange> <text>4-20</text> </observationRange> </referenceRange > </observation> </component> <component> <observation moodCode="EVN" classCode="OBS"> <templateId root= "11.30.840.1.565632...4.2" /> <id nullFlavor="NA" /> < code codeSystem="local" code="CA" displayName="Calcium" /> <statusCode code="completed" /> <effectiveTime value="" /> < value unit="mg/dL" xsi:type="PQ" value="8.3" /> <interpretationCode codeSystem="local" code="*" /> <referenceRange> < observationRange> <text>8.6-10.0</text> </ observationRange> </referenceRange> </observation> </ component> <component> <observation moodCode="EVN" classCode="OBS"> <templateId root="2.16.840.1.002507.08.03.22.4.2" /> <id nullFlavor="NA" /> <code codeSystem="local" code="CL" displayName= "Chloride" /> <statusCode code="completed" /> <effectiveTime value="" /> <value unit="mEq/L" xsi:type="PQ" value="111" / > <interpretationCode codeSystem="local" code="*" /> < referenceRange> <observationRange> <text>99-109</text> </observationRange> </referenceRange> </observation> </component> <component> <observation moodCode="EVN" classCode ="OBS"> <templateId root="216.840.1.496372.10.4.2" /> < id nullFlavor="NA" /> <code codeSystem="local" code="CO2" displayName= "CO2" /> <statusCode code="completed" /> <effectiveTime value= "" /> <value unit="mEq/L" xsi:type="PQ" value="22" /> <referenceRange> <observationRange> <text>22-32</ text> </observationRange> </referenceRange> </ observation> </component> <component> <observation moodCode= "EVN" classCode="OBS"> <templateId root="16.840.1.715124...4.2 " /> <id nullFlavor="NA" /> <code codeSystem="local" code= "CREAT" displayName="Creatinine" /> <statusCode code="completed" /> <effectiveTime value="" /> <value unit="mg/dL" xsi: type="PQ" value="0.54" /> <referenceRange> <observationRange > <text>0.44-1.03</text> </observationRange> </ referenceRange> </observation> </component> <component> <observation moodCode="EVN" classCode="OBS"> <templateId root= "11.30.840.1.930769.08.03.22.4.2" /> <id nullFlavor="NA" /> < code codeSystem="local" code="GLOB" displayName="Globulin" /> < statusCode code="completed" /> <effectiveTime value="" /> <value unit="g/dL" xsi:type="PQ" value="2.1" /> < referenceRange> <observationRange> <text>1.9-4.3</text> </observationRange> </referenceRange> </observation > </component> <component> <observation moodCode="EVN" classCode="OBS"> <templateId root="11.30.840.1.095323...4.2" /> <id nullFlavor="NA" /> <code codeSystem="local" code="GLU" displayName="Glucose" /> <statusCode code="completed" /> < effectiveTime value="" /> <value unit="mg/dL" xsi:type="PQ " value="83" /> <referenceRange> <observationRange> <text>70-100</text> </observationRange> </ referenceRange> </observation> </component> <component> <observation moodCode="EVN" classCode="OBS"> <templateId root= "11.30.840.1.459276.10.2022.4.2" /> <id nullFlavor="NA" /> < code codeSystem="local" code="K" displayName="Potassium" /> < statusCode code="completed" /> <effectiveTime value="" /> <value unit="mEq/L" xsi:type="PQ" value="3.9" /> < referenceRange> <observationRange> <text>3.6-5.1</text> </observationRange> </referenceRange> </observation > </component> <component> <observation moodCode="EVN" classCode="OBS"> <templateId root="11.30.840.1.023219.10..4.2" /> <id nullFlavor="NA" /> <code codeSystem="local" code="TP" displayName="Protein" /> <statusCode code="completed" /> < effectiveTime value="424510771652" /> <value unit="g/dL" xsi:type="PQ" value="5.5" /> <interpretationCode codeSystem="local" code="*" /> <referenceRange> <observationRange> <text>6.1-7.9</ text> </observationRange> </referenceRange> </ observation> </component> <component> <observation moodCode= "EVN" classCode="OBS"> <templateId root="11.30.840.1.783217.10.2022.4.2 " /> <id nullFlavor="NA" /> <code codeSystem="local" code="NA " displayName="Sodium" /> <statusCode code="completed" /> < effectiveTime value="945126475718" /> <value unit="mEq/L" xsi:type="PQ " value="139" /> <referenceRange> <observationRange> <text>136-144</text> </observationRange> </ referenceRange> </observation> </component> </organizer> </entry > <entry> <organizer moodCode="EVN" classCode="BATTERY"> <templateId root="216.840.1.715732.10..22.4.1" /> <id nullFlavor="NA" /> <code codeSystem="local" code="GFR" displayName="eGFR" /> <statusCode code= "completed" /> <component> <observation moodCode="EVN" classCode= "OBS"> <templateId root="216.840.1.060176.10..22.4.2" /> < id nullFlavor="NA" /> <code codeSystem="local" code="GFR" displayName= "eGFR" /> <statusCode code="completed" /> <effectiveTime value ="263149270718" /> <value unit="mL/min" xsi:type="PQ" value=">60" / > <referenceRange> <observationRange> <text>&gt ;60</text> </observationRange> </referenceRange> </ observation> </component> </organizer> </entry> <entry> <organizer moodCode="EVN" classCode="BATTERY"> <templateId root= "216.840.1.086922.10..22.4.1" /> <id nullFlavor="NA" /> <code codeSystem="local" code="TSHR" displayName="TSH with Reflex Free T4" /> < statusCode code="completed" /> <component> <observation moodCode= "EVN" classCode="OBS"> <templateId root="840.1.307490.10..22.4.2 " /> <id nullFlavor="NA" /> <code codeSystem="local" code= "TSHR" displayName="TSH with Reflex Free T4" /> <statusCode code= "completed" /> <effectiveTime value="423339142289" /> <value unit="uIU/mL" xsi:type="PQ" value="1.17" /> <referenceRange> <observationRange> <text>0.35-4.94</text> </ observationRange> </referenceRange> </observation> </ component> </organizer> </entry> <entry> <organizer moodCode="EVN" classCode="BATTERY"> <templateId root="11.30.840.1.296078.10..4.1" /> <id nullFlavor="NA" /> <code codeSystem="local" code="UA" displayName= "Urinalysis with reflex microscopic" /> <statusCode code="completed" /> <component> <observation moodCode="EVN" classCode="OBS"> < templateId root="11.30.840.1.546623.10...4.2" /> <id nullFlavor="NA " /> <code codeSystem="local" code="UAPP" displayName="Appearance" /> <statusCode code="completed" /> <effectiveTime value= "044417511404" /> <value unit="NA" xsi:type="PQ" value="Sl Cloudy" /> <referenceRange> <observationRange> <text /> </observationRange> </referenceRange> </observation> </component> <component> <observation moodCode="EVN" classCode= "OBS"> <templateId root="11.30.840.1.055791.10.4.2" /> < id nullFlavor="NA" /> <code codeSystem="local" code="UBIL" displayName= "Bilirubin" /> <statusCode code="completed" /> <effectiveTime value="" /> <value unit="NA" xsi:type="PQ" value="Negative " /> <referenceRange> <observationRange> <text> Negative</text> </observationRange> </referenceRange> </observation> </component> <component> <observation moodCode ="EVN" classCode="OBS"> <templateId root= "2.16.840.1.743250.08.03.22.4.2" /> <id nullFlavor="NA" /> < code codeSystem="local" code="UBLD" displayName="Blood" /> <statusCode code="completed" /> <effectiveTime value="" /> < value unit="NA" xsi:type="PQ" value="Pos 3+" /> <interpretationCode codeSystem="local" code="*" /> <referenceRange> < observationRange> <text>Negative</text> </ observationRange> </referenceRange> </observation> </ component> <component> <observation moodCode="EVN" classCode="OBS"> <templateId root="2.16.840.1.709049.08.03.22.4.2" /> <id nullFlavor="NA" /> <code codeSystem="local" code="UCOLR" displayName= "Color" /> <statusCode code="completed" /> <effectiveTime value="" /> <value unit="NA" xsi:type="PQ" value="Aliza" / > <interpretationCode codeSystem="local" code="*" /> < referenceRange> <observationRange> <text /> < /observationRange> </referenceRange> </observation> </ component> <component> <observation moodCode="EVN" classCode="OBS"> <templateId root="16.840.1.899632.10.4.2" /> <id nullFlavor="NA" /> <code codeSystem="local" code="UGLU" displayName= "Glucose, Urine" /> <statusCode code="completed" /> < effectiveTime value="" /> <value unit="" xsi:type="PQ" value="Negative" /> <referenceRange> <observationRange> <text>Negative</text> </observationRange> </ referenceRange> </observation> </component> <component> <observation moodCode="EVN" classCode="OBS"> <templateId root= "11.30.840.1.750967.08.03.22.4.2" /> <id nullFlavor="NA" /> < code codeSystem="local" code="UKET" displayName="Ketones" /> < statusCode code="completed" /> <effectiveTime value="" /> <value unit="" xsi:type="PQ" value="Negative" /> < referenceRange> <observationRange> <text>Negative</text > </observationRange> </referenceRange> </observation > </component> <component> <observation moodCode="EVN" classCode="OBS"> <templateId root="11.30.840.1.228090.08.03.22.4.2" /> <id nullFlavor="NA" /> <code codeSystem="local" code="ULEU" displayName="Leukocyte Esterase" /> <statusCode code="completed" /> <effectiveTime value="" /> <value unit="NA" xsi:type ="PQ" value="Negative" /> <referenceRange> <observationRange > <text>Negative</text> </observationRange> </ referenceRange> </observation> </component> <component> <observation moodCode="EVN" classCode="OBS"> <templateId root= "11.30.840.1.549897.08.03.22.4.2" /> <id nullFlavor="NA" /> < code codeSystem="local" code="UNIT" displayName="Nitrites" /> < statusCode code="completed" /> <effectiveTime value="" /> <value unit="NA" xsi:type="PQ" value="Negative" /> < referenceRange> <observationRange> <text>Negative</text > </observationRange> </referenceRange> </observation > </component> <component> <observation moodCode="EVN" classCode="OBS"> <templateId root="11.30.840.1.954029.08.03.22.4.2" /> <id nullFlavor="NA" /> <code codeSystem="local" code="UPH" displayName="pH" /> <statusCode code="completed" /> < effectiveTime value="" /> <value unit="NA" xsi:type="PQ" value="5.0" /> <referenceRange> <observationRange> <text>5.0-8.0</text> </observationRange> </ referenceRange> </observation> </component> <component> <observation moodCode="EVN" classCode="OBS"> <templateId root= "11.30.840.1.259915.10.4.2" /> <id nullFlavor="NA" /> < code codeSystem="local" code="UPRO" displayName="Protein" /> < statusCode code="completed" /> <effectiveTime value="" /> <value unit="NA" xsi:type="PQ" value="Negative" /> < referenceRange> <observationRange> <text>Negative</text > </observationRange> </referenceRange> </observation > </component> <component> <observation moodCode="EVN" classCode="OBS"> <templateId root="16.840.1.764349.10.4.2" /> <id nullFlavor="NA" /> <code codeSystem="local" code="USPG" displayName="Specific [place]" /> <statusCode code="completed" /> <effectiveTime value="998249774794" /> <value unit="NA" xsi:type= "PQ" value="1.025" /> <referenceRange> <observationRange> <text>1.003-1.030</text> </observationRange> </ referenceRange> </observation> </component> <component> <observation moodCode="EVN" classCode="OBS"> <templateId root= "11.30.840.1.615689.08.03.22.4.2" /> <id nullFlavor="NA" /> < code codeSystem="local" code="UTYP" displayName="UA Collection type" /> <statusCode code="completed" /> <effectiveTime value="851635287552" / > <value unit="NA" xsi:type="PQ" value="Clean Catch" /> < referenceRange> <observationRange> <text /> < /observationRange> </referenceRange> </observation> </ component> <component> <observation moodCode="EVN" classCode="OBS"> <templateId root="16.840.1.286509.08.03.22.4.2" /> <id nullFlavor="NA" /> <code codeSystem="local" code="UURO" displayName= "Urobilinogen" /> <statusCode code="completed" /> < effectiveTime value="922689767887" /> <value unit="mg/dL" xsi:type="PQ " value="2.0" /> <interpretationCode codeSystem="local" code="*" /> <referenceRange> <observationRange> <text><1.0 </text> </observationRange> </referenceRange> </ observation> </component> </organizer> </entry> <entry> <organizer moodCode="EVN" classCode="BATTERY"> <templateId root= "16.840.1.894219.10..22.4.1" /> <id nullFlavor="NA" /> <code codeSystem="local" code="UMIC" displayName="Urine Microscopic" /> < statusCode code="completed" /> <component> <observation moodCode= "EVN" classCode="OBS"> <templateId root="11.30.840.1.828792.08.03.22.4.2 " /> <id nullFlavor="NA" /> <code codeSystem="local" code= "UBAC" displayName="Bacteria" /> <statusCode code="completed" /> <effectiveTime value="" /> <value unit="NA" xsi:type= "PQ" value="Rare" /> <referenceRange> <observationRange> <text /> </observationRange> </referenceRange> </observation> </component> <component> <observation moodCode="EVN" classCode="OBS"> <templateId root= "11.30.840.1.760460.10.4.2" /> <id nullFlavor="NA" /> < code codeSystem="local" code="UCRY1" displayName="Crystals" /> < statusCode code="completed" /> <effectiveTime value="" /> <value unit="NA" xsi:type="PQ" value="Ca Ox" /> < referenceRange> <observationRange> <text /> < /observationRange> </referenceRange> </observation> </ component> <component> <observation moodCode="EVN" classCode="OBS"> <templateId root="216.840.1.964778.08.03.22.4.2" /> <id nullFlavor="NA" /> <code codeSystem="local" code="UEPI" displayName= "Epithelial Cells" /> <statusCode code="completed" /> < effectiveTime value="" /> <value unit="/HPF" xsi:type="PQ" value="0" /> <referenceRange> <observationRange> <text /> </observationRange> </referenceRange> </ observation> </component> <component> <observation moodCode= "EVN" classCode="OBS"> <templateId root="11.30.840.1.154977.08.03.22.4.2 " /> <id nullFlavor="NA" /> <code codeSystem="local" code= "URBC" displayName="RBC, Urine" /> <statusCode code="completed" /> <effectiveTime value="" /> <value unit="/HPF" xsi: type="PQ" value="0" /> <referenceRange> <observationRange> <text>0-2</text> </observationRange> </ referenceRange> </observation> </component> <component> <observation moodCode="EVN" classCode="OBS"> <templateId root= "16.840.1.676426.08.03.22.4.2" /> <id nullFlavor="NA" /> < code codeSystem="local" code="UMUC" displayName="Urine Mucus" /> < statusCode code="completed" /> <effectiveTime value="" /> <value unit="NA" xsi:type="PQ" value="Present" /> < referenceRange> <observationRange> <text /> < /observationRange> </referenceRange> </observation> </ component> <component> <observation moodCode="EVN" classCode="OBS"> <templateId root="16.840.1.230876.10.2022.4.2" /> <id nullFlavor="NA" /> <code codeSystem="local" code="UWBC" displayName= "WBC, Urine" /> <statusCode code="completed" /> < effectiveTime value="640209737581" /> <value unit="/HPF" xsi:type="PQ" value="2" /> <referenceRange> <observationRange> <text>0-4</text> </observationRange> </referenceRange> </observation> </component> </organizer> </entry> <entry> < organizer moodCode="EVN" classCode="BATTERY"> <templateId root= "16.840.1.982030.10..22.4.1" /> <id nullFlavor="NA" /> <code codeSystem="local" code="UDRGH" displayName="Urine Drug Screen" /> < statusCode code="completed" /> <component> <observation moodCode= "EVN" classCode="OBS"> <templateId root="16.840.1.576771.10.2022.4.2 " /> <id nullFlavor="NA" /> <code codeSystem="local" code= "UTCA1" displayName="Tricyclics" /> <statusCode code="completed" /> <effectiveTime value="023870566936" /> <value unit="NA" xsi:type ="PQ" value="Negative" /> <referenceRange> <observationRange > <text /> </observationRange> </referenceRange > </observation> </component> </organizer> </entry> <entry> <organizer moodCode="EVN" classCode="BATTERY"> <templateId root= "16.840.1.547346.10..4.1" /> <id nullFlavor="NA" /> <code codeSystem="local" code="PREGN" displayName=" Screen, Urine NPT" /> <statusCode code="completed" /> <component> <observation moodCode ="EVN" classCode="OBS"> <templateId root= "11.30.840.1.329896.08.03.22.4.2" /> <id nullFlavor="NA" /> < code codeSystem="local" code="PREGN" displayName=" Screen, Urine NPT" / > <statusCode code="completed" /> <effectiveTime value= "783585992437" /> <value unit="NA" xsi:type="PQ" value="Negative" /> <referenceRange> <observationRange> <text /> </observationRange> </referenceRange> </observation> </component> </organizer> </entry> <entry> <organizer moodCode="EVN " classCode="BATTERY"> <templateId root="11.30.840.1.729815.08.03.22.4.1" / > <id nullFlavor="NA" /> <code codeSystem="local" code="CBCWD" displayName="CBC With Platelet and Differential" /> <statusCode code= "completed" /> <component> <observation moodCode="EVN" classCode= "OBS"> <templateId root="11.30.840.1.572079.10..4.2" /> < id nullFlavor="NA" /> <code codeSystem="local" code="ABASR" displayName ="Absolute Basophils" /> <statusCode code="completed" /> < effectiveTime value="695073424143" /> <value unit="10*3/uL" xsi:type= "PQ" value="0.04" /> <referenceRange> <observationRange> <text>0.00-0.20</text> </observationRange> </ referenceRange> </observation> </component> <component> <observation moodCode="EVN" classCode="OBS"> <templateId root= "216.840.1.642009.10..4.2" /> <id nullFlavor="NA" /> < code codeSystem="local" code="AEOSR" displayName="Absolute Eosinophils" /> <statusCode code="completed" /> <effectiveTime value="596522844830 " /> <value unit="10*3/uL" xsi:type="PQ" value="0.32" /> < referenceRange> <observationRange> <text>0.00-0.50</text > </observationRange> </referenceRange> </observation > </component> <component> <observation moodCode="EVN" classCode="OBS"> <templateId root="216.840.1.152228.08.03.22.4.2" /> <id nullFlavor="NA" /> <code codeSystem="local" code="ALYMR" displayName="Absolute Lymphocytes" /> <statusCode code="completed" /> <effectiveTime value="105599998760" /> <value unit="10*3uL" xsi:type="PQ" value="1.20" /> <referenceRange> < observationRange> <text>0.80-3.30</text> </ observationRange> </referenceRange> </observation> </ component> <component> <observation moodCode="EVN" classCode="OBS"> <templateId root="216.840.1.746721...4.2" /> <id nullFlavor="NA" /> <code codeSystem="local" code="AMONR" displayName= "Absolute Monocytes" /> <statusCode code="completed" /> < effectiveTime value="140895022868" /> <value unit="10*3/uL" xsi:type= "PQ" value="0.36" /> <referenceRange> <observationRange> <text>0.30-1.00</text> </observationRange> </ referenceRange> </observation> </component> <component> <observation moodCode="EVN" classCode="OBS"> <templateId root= "2.16.840.1.586153....4.2" /> <id nullFlavor="NA" /> < code codeSystem="local" code="ASEGR" displayName="Absolute Neutrophils" /> <statusCode code="completed" /> <effectiveTime value="070577678330 " /> <value unit="10*3/uL" xsi:type="PQ" value="2.23" /> < referenceRange> <observationRange> <text>1.90-7.00</text > </observationRange> </referenceRange> </observation > </component> <component> <observation moodCode="EVN" classCode="OBS"> <templateId root="2.16.840.1.629636....4.2" /> <id nullFlavor="NA" /> <code codeSystem="local" code="BASOR" displayName="Basophils" /> <statusCode code="completed" /> < effectiveTime value="286472161727" /> <value unit="%" xsi:type="PQ " value="1" /> <referenceRange> <observationRange> <text>0-2</text> </observationRange> </referenceRange> </observation> </component> <component> <observation moodCode="EVN" classCode="OBS"> <templateId root= "16.840.1.494966.10.20.22.4.2" /> <id nullFlavor="NA" /> < code codeSystem="local" code="EOSR" displayName="Eosinophils" /> < statusCode code="completed" /> <effectiveTime value="082209565142" /> <value unit="%" xsi:type="PQ" value="8" /> < interpretationCode codeSystem="local" code="*" /> <referenceRange> <observationRange> <text>0-4</text> </ observationRange> </referenceRange> </observation> </ component> <component> <observation moodCode="EVN" classCode="OBS"> <templateId root="11.30.840.1.623847.08.03.22.4.2" /> <id nullFlavor="NA" /> <code codeSystem="local" code="HCT" displayName="HCT " /> <statusCode code="completed" /> <effectiveTime value= "311614845418" /> <value unit="%" xsi:type="PQ" value="37.0" /> <referenceRange> <observationRange> <text>37.0- 47.0</text> </observationRange> </referenceRange> </ observation> </component> <component> <observation moodCode= "EVN" classCode="OBS"> <templateId root="11.30.840.1.769547.10.20.22.4.2 " /> <id nullFlavor="NA" /> <code codeSystem="local" code="HGB " displayName="HGB" /> <statusCode code="completed" /> < effectiveTime value="253241093433" /> <value unit="g/dL" xsi:type="PQ" value="12.1" /> <referenceRange> <observationRange> <text>12.0-16.0</text> </observationRange> </ referenceRange> </observation> </component> <component> <observation moodCode="EVN" classCode="OBS"> <templateId root= "16.840.1.332594.10.20.22.4.2" /> <id nullFlavor="NA" /> < code codeSystem="local" code="IMGA" displayName="Immature Granulocytes" /> <statusCode code="completed" /> <effectiveTime value="394281024353 " /> <value unit="%" xsi:type="PQ" value="0.2" /> < referenceRange> <observationRange> <text>0.0-1.0</text> </observationRange> </referenceRange> </observation > </component> <component> <observation moodCode="EVN" classCode="OBS"> <templateId root="11.30.840.1.018671.10..4.2" /> <id nullFlavor="NA" /> <code codeSystem="local" code="LYMPR" displayName="Lymphocytes" /> <statusCode code="completed" /> < effectiveTime value="862100217228" /> <value unit="%" xsi:type="PQ " value="29" /> <referenceRange> <observationRange> <text>20-46</text> </observationRange> </ referenceRange> </observation> </component> <component> <observation moodCode="EVN" classCode="OBS"> <templateId root= "11.30.840.1.638684.10.20.22.4.2" /> <id nullFlavor="NA" /> < code codeSystem="local" code="MCH" displayName="MCH" /> <statusCode code="completed" /> <effectiveTime value="458401140982" /> < value unit="pg" xsi:type="PQ" value="30.6" /> <referenceRange> <observationRange> <text>27.0-32.0</text> </ observationRange> </referenceRange> </observation> </ component> <component> <observation moodCode="EVN" classCode="OBS"> <templateId root="216.840.1.885564.10.4.2" /> <id nullFlavor="NA" /> <code codeSystem="local" code="MCHC" displayName= "MCHC" /> <statusCode code="completed" /> <effectiveTime value ="214167943398" /> <value unit="g/dL" xsi:type="PQ" value="32.7" /> <referenceRange> <observationRange> <text>32.0- 36.0</text> </observationRange> </referenceRange> </ observation> </component> <component> <observation moodCode= "EVN" classCode="OBS"> <templateId root="11.30.840.1.957343.08.03.22.4.2 " /> <id nullFlavor="NA" /> <code codeSystem="local" code="MCV " displayName="MCV" /> <statusCode code="completed" /> < effectiveTime value="748542390573" /> <value unit="fL" xsi:type="PQ" value="93.4" /> <referenceRange> <observationRange> <text>82.0-99.0</text> </observationRange> </ referenceRange> </observation> </component> <component> <observation moodCode="EVN" classCode="OBS"> <templateId root= "216.840.1.131648.22.4.2" /> <id nullFlavor="NA" /> < code codeSystem="local" code="MONOR" displayName="Monocytes" /> < statusCode code="completed" /> <effectiveTime value="197958566089" /> <value unit="%" xsi:type="PQ" value="9" /> <referenceRange > <observationRange> <text>4-11</text> </ observationRange> </referenceRange> </observation> </ component> <component> <observation moodCode="EVN" classCode="OBS"> <templateId root="216.840.1.400219.10.20.22.4.2" /> <id nullFlavor="NA" /> <code codeSystem="local" code="MPV" displayName="MPV " /> <statusCode code="completed" /> <effectiveTime value= "611077247962" /> <value unit="fL" xsi:type="PQ" value="10.1" /> <referenceRange> <observationRange> <text>9.4-12.4</ text> </observationRange> </referenceRange> </ observation> </component> <component> <observation moodCode= "EVN" classCode="OBS"> <templateId root="16.840.1.888968.10.20.22.4.2 " /> <id nullFlavor="NA" /> <code codeSystem="local" code= "SEGR" displayName="Neutrophils" /> <statusCode code="completed" /> <effectiveTime value="433261035200" /> <value unit="%" xsi: type="PQ" value="54" /> <referenceRange> <observationRange> <text>51-75</text> </observationRange> </ referenceRange> </observation> </component> <component> <observation moodCode="EVN" classCode="OBS"> <templateId root= "2.16.840.1.725971.22.4.2" /> <id nullFlavor="NA" /> < code codeSystem="local" code="NRBCA" displayName="Nucleated RBC Automated" /> <statusCode code="completed" /> <effectiveTime value= "" /> <value unit="/100WBC" xsi:type="PQ" value="0.0" /> <referenceRange> <observationRange> <text /> </observationRange> </referenceRange> </observation> </component> <component> <observation moodCode="EVN" classCode= "OBS"> <templateId root="11.30.840.1.789420.08.03.22.4.2" /> < id nullFlavor="NA" /> <code codeSystem="local" code="PLT" displayName= "Platelet Count" /> <statusCode code="completed" /> < effectiveTime value="" /> <value unit="K/uL" xsi:type="PQ" value="192" /> <referenceRange> <observationRange> <text>150-400</text> </observationRange> </ referenceRange> </observation> </component> <component> <observation moodCode="EVN" classCode="OBS"> <templateId root= "11.30.840.1.879050.1022.4.2" /> <id nullFlavor="NA" /> < code codeSystem="local" code="RBC" displayName="RBC" /> <statusCode code="completed" /> <effectiveTime value="" /> < value unit="10*6/uL" xsi:type="PQ" value="3.96" /> <interpretationCode codeSystem="local" code="*" /> <referenceRange> < observationRange> <text>4.00-5.20</text> </ observationRange> </referenceRange> </observation> </ component> <component> <observation moodCode="EVN" classCode="OBS"> <templateId root="16.840.1.668085.10.2022.4.2" /> <id nullFlavor="NA" /> <code codeSystem="local" code="RDW" displayName="RDW " /> <statusCode code="completed" /> <effectiveTime value= "081060257969" /> <value unit="%" xsi:type="PQ" value="13.3" /> <referenceRange> <observationRange> <text>11.5- 14.5</text> </observationRange> </referenceRange> </ observation> </component> <component> <observation moodCode= "EVN" classCode="OBS"> <templateId root="11.30.840.1.504223.22.4.2 " /> <id nullFlavor="NA" /> <code codeSystem="local" code= "WBCIR" displayName="WBC" /> <statusCode code="completed" /> < effectiveTime value="027536373214" /> <value unit="K/uL" xsi:type="PQ" value="4.2" /> <interpretationCode codeSystem="local" code="*" /> <referenceRange> <observationRange> <text>4.8-10.8< /text> </observationRange> </referenceRange> </ observation> </component> </organizer> </entry> <entry> <organizer moodCode="EVN" classCode="BATTERY"> <templateId root= "11.30.840.1.320288.10.2022.4.1" /> <id nullFlavor="NA" /> <code codeSystem="local" code="CMP" displayName="Comprehensive Metabolic Panel (CMP)" /> <statusCode code="completed" /> <component> <observation moodCode="EVN" classCode="OBS"> <templateId root= "16.840.1.266395.10.4.2" /> <id nullFlavor="NA" /> < code codeSystem="local" code="ALB" displayName="Albumin" /> < statusCode code="completed" /> <effectiveTime value="480973416218" /> <value unit="g/dL" xsi:type="PQ" value="3.5" /> < referenceRange> <observationRange> <text>3.5-4.8</text> </observationRange> </referenceRange> </observation > </component> <component> <observation moodCode="EVN" classCode="OBS"> <templateId root="11.30.840.1.454862.08.03.22.4.2" /> <id nullFlavor="NA" /> <code codeSystem="local" code="ALP" displayName="Alkaline Phosphatase" /> <statusCode code="completed" /> <effectiveTime value="042090809311" /> <value unit="U/L" xsi: type="PQ" value="64" /> <referenceRange> <observationRange> <text>26-104</text> </observationRange> </ referenceRange> </observation> </component> <component> <observation moodCode="EVN" classCode="OBS"> <templateId root= "11.30.840.1.999973.10.4.2" /> <id nullFlavor="NA" /> < code codeSystem="local" code="ALT" displayName="ALT (SGPT)" /> < statusCode code="completed" /> <effectiveTime value="878977353976" /> <value unit="U/L" xsi:type="PQ" value="209" /> < interpretationCode codeSystem="local" code="*" /> <referenceRange> <observationRange> <text>14-54</text> </ observationRange> </referenceRange> </observation> </ component> <component> <observation moodCode="EVN" classCode="OBS"> <templateId root="16.840.1.525390.10..22.4.2" /> <id nullFlavor="NA" /> <code codeSystem="local" code="AGAP" displayName= "Anion Gap" /> <statusCode code="completed" /> <effectiveTime value="534901639961" /> <value unit="mEq/L" xsi:type="PQ" value="8" /> <referenceRange> <observationRange> <text>3-20 </text> </observationRange> </referenceRange> </ observation> </component> <component> <observation moodCode= "EVN" classCode="OBS"> <templateId root="11.30.840.1.214888.10...4.2 " /> <id nullFlavor="NA" /> <code codeSystem="local" code="AST " displayName="AST (SGOT)" /> <statusCode code="completed" /> <effectiveTime value="445035736866" /> <value unit="U/L" xsi:type="PQ" value="155" /> <interpretationCode codeSystem="local" code="*" /> <referenceRange> <observationRange> <text>15-41</ text> </observationRange> </referenceRange> </ observation> </component> <component> <observation moodCode= "EVN" classCode="OBS"> <templateId root="11.30.840.1.072003.10..22.4.2 " /> <id nullFlavor="NA" /> <code codeSystem="local" code= "BILIT" displayName="Bilirubin Total" /> <statusCode code="completed" / > <effectiveTime value="362117084936" /> <value unit="mg/dL" xsi:type="PQ" value="0.5" /> <referenceRange> < observationRange> <text>0.2-1.2</text> </ observationRange> </referenceRange> </observation> </ component> <component> <observation moodCode="EVN" classCode="OBS"> <templateId root="11.30.840.1.509187.10.20.22.4.2" /> <id nullFlavor="NA" /> <code codeSystem="local" code="BUN" displayName="BUN " /> <statusCode code="completed" /> <effectiveTime value= "751641455208" /> <value unit="mg/dL" xsi:type="PQ" value="8" /> <referenceRange> <observationRange> <text>4-20</text > </observationRange> </referenceRange> </observation > </component> <component> <observation moodCode="EVN" classCode="OBS"> <templateId root="11.30.840.1.133034.10.20.22.4.2" /> <id nullFlavor="NA" /> <code codeSystem="local" code="CA" displayName="Calcium" /> <statusCode code="completed" /> < effectiveTime value="669063051244" /> <value unit="mg/dL" xsi:type="PQ " value="8.8" /> <referenceRange> <observationRange> <text>8.6-10.0</text> </observationRange> </ referenceRange> </observation> </component> <component> <observation moodCode="EVN" classCode="OBS"> <templateId root= "840.1.903316.10..4.2" /> <id nullFlavor="NA" /> < code codeSystem="local" code="CL" displayName="Chloride" /> < statusCode code="completed" /> <effectiveTime value="469864013537" /> <value unit="mEq/L" xsi:type="PQ" value="108" /> < referenceRange> <observationRange> <text>99-109</text> </observationRange> </referenceRange> </observation> </component> <component> <observation moodCode="EVN" classCode ="OBS"> <templateId root="216.840.1.025107.08.03.22.4.2" /> < id nullFlavor="NA" /> <code codeSystem="local" code="CO2" displayName= "CO2" /> <statusCode code="completed" /> <effectiveTime value= "365998017565" /> <value unit="mEq/L" xsi:type="PQ" value="24" /> <referenceRange> <observationRange> <text>22-32</ text> </observationRange> </referenceRange> </ observation> </component> <component> <observation moodCode= "EVN" classCode="OBS"> <templateId root="216.840.1.571580...4.2 " /> <id nullFlavor="NA" /> <code codeSystem="local" code= "CREAT" displayName="Creatinine" /> <statusCode code="completed" /> <effectiveTime value="285774311863" /> <value unit="mg/dL" xsi: type="PQ" value="0.77" /> <referenceRange> <observationRange > <text>0.44-1.03</text> </observationRange> </ referenceRange> </observation> </component> <component> <observation moodCode="EVN" classCode="OBS"> <templateId root= "16.840.1.464705.10.22.4.2" /> <id nullFlavor="NA" /> < code codeSystem="local" code="GLOB" displayName="Globulin" /> < statusCode code="completed" /> <effectiveTime value="" /> <value unit="g/dL" xsi:type="PQ" value="2.3" /> < referenceRange> <observationRange> <text>1.9-4.3</text> </observationRange> </referenceRange> </observation > </component> <component> <observation moodCode="EVN" classCode="OBS"> <templateId root="11.30.840.1.381901...4.2" /> <id nullFlavor="NA" /> <code codeSystem="local" code="GLU" displayName="Glucose" /> <statusCode code="completed" /> < effectiveTime value="539363477097" /> <value unit="mg/dL" xsi:type="PQ " value="111" /> <interpretationCode codeSystem="local" code="*" /> <referenceRange> <observationRange> <text>70-100< /text> </observationRange> </referenceRange> </ observation> </component> <component> <observation moodCode= "EVN" classCode="OBS"> <templateId root="11.30.840.1.390831.10..22.4.2 " /> <id nullFlavor="NA" /> <code codeSystem="local" code="K" displayName="Potassium" /> <statusCode code="completed" /> < effectiveTime value="779301454474" /> <value unit="mEq/L" xsi:type="PQ " value="3.5" /> <interpretationCode codeSystem="local" code="*" /> <referenceRange> <observationRange> <text>3.6-5.1 </text> </observationRange> </referenceRange> </ observation> </component> <component> <observation moodCode= "EVN" classCode="OBS"> <templateId root="216.840.1.142721.10.4.2 " /> <id nullFlavor="NA" /> <code codeSystem="local" code="TP " displayName="Protein" /> <statusCode code="completed" /> < effectiveTime value="038787975072" /> <value unit="g/dL" xsi:type="PQ" value="5.8" /> <interpretationCode codeSystem="local" code="*" /> <referenceRange> <observationRange> <text>6.1-7.9</ text> </observationRange> </referenceRange> </ observation> </component> <component> <observation moodCode= "EVN" classCode="OBS"> <templateId root="16.840.1.437445.08.03.22.4.2 " /> <id nullFlavor="NA" /> <code codeSystem="local" code="NA " displayName="Sodium" /> <statusCode code="completed" /> < effectiveTime value="020424966523" /> <value unit="mEq/L" xsi:type="PQ " value="140" /> <referenceRange> <observationRange> <text>136-144</text> </observationRange> </ referenceRange> </observation> </component> </organizer> </entry > <entry> <organizer moodCode="EVN" classCode="BATTERY"> <templateId root="216.840.1.618858.08.03.22.4.1" /> <id nullFlavor="NA" /> <code codeSystem="local" code="ALC" displayName="Alcohol, Blood" /> <statusCode code="completed" /> <component> <observation moodCode="EVN" classCode="OBS"> <templateId root="16.840.1.199912.10.4.2" /> <id nullFlavor="NA" /> <code codeSystem="local" code="ALC" displayName="Alcohol, Blood" /> <statusCode code="completed" /> <effectiveTime value="159913035307" /> <value unit="mg/dL" xsi:type= "PQ" value="Not Detected" /> <referenceRange> < observationRange> <text /> </observationRange> </referenceRange> </observation> </component> </organizer> </ entry> <entry> <organizer moodCode="EVN" classCode="BATTERY"> < templateId root="16.840.1.937636.10.4.1" /> <id nullFlavor="NA" /> <code codeSystem="local" code="GFR" displayName="eGFR" /> < statusCode code="completed" /> <component> <observation moodCode= "EVN" classCode="OBS"> <templateId root="16.840.1.090844.08.03.22.4.2 " /> <id nullFlavor="NA" /> <code codeSystem="local" code="GFR " displayName="eGFR" /> <statusCode code="completed" /> < effectiveTime value="589248295259" /> <value unit="mL/min" xsi:type="PQ " value=">60" /> <referenceRange> <observationRange> <text>>60</text> </observationRange> </ referenceRange> </observation> </component> </organizer> </entry > <entry> <organizer moodCode="EVN" classCode="BATTERY"> <templateId root="11.30.840.1.287977.08.03.22.4.1" /> <id nullFlavor="NA" /> <code codeSystem="local" code="ACETM" displayName="Acetaminophen" /> <statusCode code="completed" /> <component> <observation moodCode="EVN" classCode="OBS"> <templateId root="840.1.067827.08.03.22.4.2" /> <id nullFlavor="NA" /> <code codeSystem="local" code="ACETM" displayName="Acetaminophen" /> <statusCode code="completed" /> <effectiveTime value="359984306416" /> <value unit="mcg/mL" xsi:type= "PQ" value="<10" /> <referenceRange> <observationRange> <text>10-30</text> </observationRange> </ referenceRange> </observation> </component> </organizer> </entry > <entry> <organizer moodCode="EVN" classCode="BATTERY"> <templateId root="840.1.203838.08.03.22.4.1" /> <id nullFlavor="NA" /> <code codeSystem="local" code="SALIC" displayName="Salicylate" /> <statusCode code="completed" /> <component> <observation moodCode="EVN" classCode="OBS"> <templateId root="11.30.840.1.763354.08.03.22.4.2" /> <id nullFlavor="NA" /> <code codeSystem="local" code="SALIC" displayName="Salicylate" /> <statusCode code="completed" /> < effectiveTime value="223713785029" /> <value unit="mg/dL" xsi:type="PQ " value="<4" /> <referenceRange> <observationRange> <text>0-30</text> </observationRange> </ referenceRange> </observation> </component> </organizer> </entry > <entry> <organizer moodCode="EVN" classCode="BATTERY"> <templateId root="216.840.1.058713.10..22.4.1" /> <id nullFlavor="NA" /> <code codeSystem="local" code="TSHR" displayName="TSH with Reflex Free T4" /> < statusCode code="completed" /> <component> <observation moodCode= "EVN" classCode="OBS"> <templateId root="216.840.1.357380.10..22.4.2 " /> <id nullFlavor="NA" /> <code codeSystem="local" code= "TSHR" displayName="TSH with Reflex Free T4" /> <statusCode code= "completed" /> <effectiveTime value="048649715832" /> <value unit="uIU/mL" xsi:type="PQ" value="0.55" /> <referenceRange> <observationRange> <text>0.35-4.94</text> </ observationRange> </referenceRange> </observation> </ component> </organizer> </entry> <entry> <organizer moodCode="EVN" classCode="BATTERY"> <templateId root="216.840.1.348821.10...4.1" /> <id nullFlavor="NA" /> <code codeSystem="local" code="CPK" displayName ="Creatine Kinase (CPK)" /> <statusCode code="completed" /> <component > <observation moodCode="EVN" classCode="OBS"> <templateId root= "840.1.213366.10..22.4.2" /> <id nullFlavor="NA" /> < code codeSystem="local" code="CPK" displayName="Creatine Kinase (CPK)" /> <statusCode code="completed" /> <effectiveTime value="235765012638 " /> <value unit="U/L" xsi:type="PQ" value="74" /> < referenceRange> <observationRange> <text>38-234</text> </observationRange> </referenceRange> </observation> </component> </organizer> </entry> <entry> <organizer moodCode= "EVN" classCode="BATTERY"> <templateId root="840.1.662414.10...4.1 " /> <id nullFlavor="NA" /> <code codeSystem="local" code="HEP4" displayName="Hepatitis Panel" /> <statusCode code="completed" /> < component> <observation moodCode="EVN" classCode="OBS"> < templateId root="11.30.840.1.693673.10...4.2" /> <id nullFlavor="NA " /> <code codeSystem="local" code="HAABM" displayName="Hepatitis A Antibody IGM" /> <statusCode code="completed" /> < effectiveTime value="191020690757" /> <value unit="" xsi:type="PQ" value="Negative" /> <referenceRange> <observationRange> <text /> </observationRange> </referenceRange> </observation> </component> <component> <observation moodCode="EVN" classCode="OBS"> <templateId root= "11.30.840.1.700649.10..4.2" /> <id nullFlavor="NA" /> < code codeSystem="local" code="HBSAG" displayName="Hepatitis B Surface Antigen" / > <statusCode code="completed" /> <effectiveTime value= "679822152453" /> <value unit="" xsi:type="PQ" value="Negative" /> <referenceRange> <observationRange> <text /> </observationRange> </referenceRange> </observation> </component> </organizer> </entry> <entry> <organizer moodCode="EVN" classCode="BATTERY"> <templateId root="2.16.840.1.213632.10.20.22.4.1" /> <id nullFlavor="NA" /> <code codeSystem="local" code="PREGN" displayName=" Screen, Urine NPT" /> <statusCode code="completed" / > <component> <observation moodCode="EVN" classCode="OBS"> <templateId root="2.16.840.1.281388.10.20.22.4.2" /> <id nullFlavor="NA " /> <code codeSystem="local" code="PREGN" displayName=" Screen, Urine NPT" /> <statusCode code="completed" /> < effectiveTime value="933413517794" /> <value unit="NA" xsi:type="PQ" value="Negative" /> <referenceRange> <observationRange> <text /> </observationRange> </referenceRange> </observation> </component> </organizer> </entry> <entry> < organizer moodCode="EVN" classCode="BATTERY"> <templateId root= "2.16.840.1.371799.10..22.4.1" /> <id nullFlavor="NA" /> <code codeSystem="local" code="UA" displayName="Urinalysis with reflex microscopic" / > <statusCode code="completed" /> <component> <observation moodCode="EVN" classCode="OBS"> <templateId root= "216.840.1.249488.10..4.2" /> <id nullFlavor="NA" /> < code codeSystem="local" code="UAPP" displayName="Appearance" /> < statusCode code="completed" /> <effectiveTime value="071013371744" /> <value unit="NA" xsi:type="PQ" value="Sl Cloudy" /> < referenceRange> <observationRange> <text /> < /observationRange> </referenceRange> </observation> </ component> <component> <observation moodCode="EVN" classCode="OBS"> <templateId root="216.840.1.102696.08.03.22.4.2" /> <id nullFlavor="NA" /> <code codeSystem="local" code="UBIL" displayName= "Bilirubin" /> <statusCode code="completed" /> <effectiveTime value="991324784537" /> <value unit="NA" xsi:type="PQ" value="Negative " /> <referenceRange> <observationRange> <text> Negative</text> </observationRange> </referenceRange> </observation> </component> <component> <observation moodCode ="EVN" classCode="OBS"> <templateId root= "16.840.1.929619.08.03.22.4.2" /> <id nullFlavor="NA" /> < code codeSystem="local" code="UBLD" displayName="Blood" /> <statusCode code="completed" /> <effectiveTime value="048835202020" /> < value unit="NA" xsi:type="PQ" value="Negative" /> <referenceRange> <observationRange> <text>Negative</text> </ observationRange> </referenceRange> </observation> </ component> <component> <observation moodCode="EVN" classCode="OBS"> <templateId root="216.840.1.196166.10.4.2" /> <id nullFlavor="NA" /> <code codeSystem="local" code="UCOLR" displayName= "Color" /> <statusCode code="completed" /> <effectiveTime value="" /> <value unit="NA" xsi:type="PQ" value="Yellow" / > <referenceRange> <observationRange> <text /> </observationRange> </referenceRange> </observation > </component> <component> <observation moodCode="EVN" classCode="OBS"> <templateId root="216.840.1.396967.08.03.22.4.2" /> <id nullFlavor="NA" /> <code codeSystem="local" code="UGLU" displayName="Glucose, Urine" /> <statusCode code="completed" /> <effectiveTime value="802997832210" /> <value unit="" xsi:type="PQ" value="Negative" /> <referenceRange> <observationRange> <text>Negative</text> </observationRange> </ referenceRange> </observation> </component> <component> <observation moodCode="EVN" classCode="OBS"> <templateId root= "16.840.1.091046.10..4.2" /> <id nullFlavor="NA" /> < code codeSystem="local" code="UKET" displayName="Ketones" /> < statusCode code="completed" /> <effectiveTime value="956596365404" /> <value unit="" xsi:type="PQ" value="Negative" /> < referenceRange> <observationRange> <text>Negative</text > </observationRange> </referenceRange> </observation > </component> <component> <observation moodCode="EVN" classCode="OBS"> <templateId root="216.840.1.585371.08.03.22.4.2" /> <id nullFlavor="NA" /> <code codeSystem="local" code="ULEU" displayName="Leukocyte Esterase" /> <statusCode code="completed" /> <effectiveTime value="161764040326" /> <value unit="NA" xsi:type ="PQ" value="Trace" /> <interpretationCode codeSystem="local" code="*" /> <referenceRange> <observationRange> <text> Negative</text> </observationRange> </referenceRange> </observation> </component> <component> <observation moodCode ="EVN" classCode="OBS"> <templateId root= "11.30.840.1.778397.08.03.22.4.2" /> <id nullFlavor="NA" /> < code codeSystem="local" code="UNIT" displayName="Nitrites" /> < statusCode code="completed" /> <effectiveTime value="021642448544" /> <value unit="NA" xsi:type="PQ" value="Negative" /> < referenceRange> <observationRange> <text>Negative</text > </observationRange> </referenceRange> </observation > </component> <component> <observation moodCode="EVN" classCode="OBS"> <templateId root="11.30.840.1.983153.08.03.22.4.2" /> <id nullFlavor="NA" /> <code codeSystem="local" code="UPH" displayName="pH" /> <statusCode code="completed" /> < effectiveTime value="754578311521" /> <value unit="NA" xsi:type="PQ" value="6.0" /> <referenceRange> <observationRange> <text>5.0-8.0</text> </observationRange> </ referenceRange> </observation> </component> <component> <observation moodCode="EVN" classCode="OBS"> <templateId root= "16.840.1.997236.10..4.2" /> <id nullFlavor="NA" /> < code codeSystem="local" code="UPRO" displayName="Protein" /> < statusCode code="completed" /> <effectiveTime value="886756966297" /> <value unit="NA" xsi:type="PQ" value="Negative" /> < referenceRange> <observationRange> <text>Negative</text > </observationRange> </referenceRange> </observation > </component> <component> <observation moodCode="EVN" classCode="OBS"> <templateId root="11.30.840.1.513806.08.03.22.4.2" /> <id nullFlavor="NA" /> <code codeSystem="local" code="USPG" displayName="Specific [place]" /> <statusCode code="completed" /> <effectiveTime value="401483219392" /> <value unit="NA" xsi:type= "PQ" value="1.020" /> <referenceRange> <observationRange> <text>1.003-1.030</text> </observationRange> </ referenceRange> </observation> </component> <component> <observation moodCode="EVN" classCode="OBS"> <templateId root= "11.30.840.1.277297.08.03.22.4.2" /> <id nullFlavor="NA" /> < code codeSystem="local" code="UTYP" displayName="UA Collection type" /> <statusCode code="completed" /> <effectiveTime value="898020612474" / > <value unit="NA" xsi:type="PQ" value="Voided" /> < referenceRange> <observationRange> <text /> < /observationRange> </referenceRange> </observation> </ component> <component> <observation moodCode="EVN" classCode="OBS"> <templateId root="11.30.840.1.065881.08.03.22.4.2" /> <id nullFlavor="NA" /> <code codeSystem="local" code="UURO" displayName= "Urobilinogen" /> <statusCode code="completed" /> < effectiveTime value="349143613834" /> <value unit="mg/dL" xsi:type="PQ " value="Negative" /> <referenceRange> <observationRange> <text><1.0</text> </observationRange> </ referenceRange> </observation> </component> </organizer> </entry > <entry> <organizer moodCode="EVN" classCode="BATTERY"> <templateId root="840.1.985378.08.03.22.4.1" /> <id nullFlavor="NA" /> <code codeSystem="local" code="UMIC" displayName="Urine Microscopic" /> < statusCode code="completed" /> <component> <observation moodCode= "EVN" classCode="OBS"> <templateId root="840.1.647928.08.03.22.4.2 " /> <id nullFlavor="NA" /> <code codeSystem="local" code= "UBAC" displayName="Bacteria" /> <statusCode code="completed" /> <effectiveTime value="620897365413" /> <value unit="NA" xsi:type= "PQ" value="Moderate" /> <interpretationCode codeSystem="local" code="* " /> <referenceRange> <observationRange> <text /> </observationRange> </referenceRange> </ observation> </component> <component> <observation moodCode= "EVN" classCode="OBS"> <templateId root="11.30.840.1.261430.10..4.2 " /> <id nullFlavor="NA" /> <code codeSystem="local" code= "UEPI" displayName="Epithelial Cells" /> <statusCode code="completed" / > <effectiveTime value="084639491430" /> <value unit="/HPF" xsi:type="PQ" value="10" /> <referenceRange> < observationRange> <text /> </observationRange> </referenceRange> </observation> </component> <component> <observation moodCode="EVN" classCode="OBS"> <templateId root= "840.1.974694.10.4.2" /> <id nullFlavor="NA" /> < code codeSystem="local" code="URBC" displayName="RBC, Urine" /> < statusCode code="completed" /> <effectiveTime value="574524823310" /> <value unit="/HPF" xsi:type="PQ" value="0" /> <referenceRange > <observationRange> <text>0-2</text> </ observationRange> </referenceRange> </observation> </ component> <component> <observation moodCode="EVN" classCode="OBS"> <templateId root="840.1.926808.10.4.2" /> <id nullFlavor="NA" /> <code codeSystem="local" code="UMUC" displayName= "Urine Mucus" /> <statusCode code="completed" /> < effectiveTime value="416054562724" /> <value unit="NA" xsi:type="PQ" value="Present" /> <referenceRange> <observationRange> <text /> </observationRange> </referenceRange> </observation> </component> <component> <observation moodCode="EVN" classCode="OBS"> <templateId root= "16.840.1.291197.08.03.22.4.2" /> <id nullFlavor="NA" /> < code codeSystem="local" code="UWBC" displayName="WBC, Urine" /> < statusCode code="completed" /> <effectiveTime value="760873126554" /> <value unit="/HPF" xsi:type="PQ" value="2" /> <referenceRange > <observationRange> <text>0-4</text> </ observationRange> </referenceRange> </observation> </ component> </organizer> </entry> <entry> <organizer moodCode="EVN" classCode="BATTERY"> <templateId root="11.30.840.1.576585.08.03.22.4.1" /> <id nullFlavor="NA" /> <code codeSystem="local" code="CBCWD" displayName="CBC With Platelet and Differential" /> <statusCode code= "completed" /> <component> <observation moodCode="EVN" classCode= "OBS"> <templateId root="11.30.840.1.976584.22.4.2" /> < id nullFlavor="NA" /> <code codeSystem="local" code="ABASR" displayName ="Absolute Basophils" /> <statusCode code="completed" /> < effectiveTime value="028322255114" /> <value unit="10*3/uL" xsi:type= "PQ" value="0.03" /> <referenceRange> <observationRange> <text>0.00-0.20</text> </observationRange> </ referenceRange> </observation> </component> <component> <observation moodCode="EVN" classCode="OBS"> <templateId root= "216.840.1.436147.10.20.22.4.2" /> <id nullFlavor="NA" /> < code codeSystem="local" code="AEOSR" displayName="Absolute Eosinophils" /> <statusCode code="completed" /> <effectiveTime value="597475741511 " /> <value unit="10*3/uL" xsi:type="PQ" value="0.26" /> < referenceRange> <observationRange> <text>0.00-0.50</text > </observationRange> </referenceRange> </observation > </component> <component> <observation moodCode="EVN" classCode="OBS"> <templateId root="11.30.840.1.018437..2022.4.2" /> <id nullFlavor="NA" /> <code codeSystem="local" code="ALYMR" displayName="Absolute Lymphocytes" /> <statusCode code="completed" /> <effectiveTime value="263300081237" /> <value unit="10*3/uL" xsi:type="PQ" value="1.96" /> <referenceRange> < observationRange> <text>0.80-3.30</text> </ observationRange> </referenceRange> </observation> </ component> <component> <observation moodCode="EVN" classCode="OBS"> <templateId root="11.30.840.1.985122.10.20.22.4.2" /> <id nullFlavor="NA" /> <code codeSystem="local" code="AMONR" displayName= "Absolute Monocytes" /> <statusCode code="completed" /> < effectiveTime value="165860504799" /> <value unit="10*3/uL" xsi:type= "PQ" value="0.43" /> <referenceRange> <observationRange> <text>0.30-1.00</text> </observationRange> </ referenceRange> </observation> </component> <component> <observation moodCode="EVN" classCode="OBS"> <templateId root= "216.840.1.502468.10...4.2" /> <id nullFlavor="NA" /> < code codeSystem="local" code="ASEGR" displayName="Absolute Neutrophils" /> <statusCode code="completed" /> <effectiveTime value="411443203993 " /> <value unit="10*3/uL" xsi:type="PQ" value="3.42" /> < referenceRange> <observationRange> <text>1.90-7.00</text > </observationRange> </referenceRange> </observation > </component> <component> <observation moodCode="EVN" classCode="OBS"> <templateId root="216.840.1.984955.10...4.2" /> <id nullFlavor="NA" /> <code codeSystem="local" code="BASOR" displayName="Basophils" /> <statusCode code="completed" /> < effectiveTime value="282988390654" /> <value unit="%" xsi:type="PQ " value="1" /> <referenceRange> <observationRange> <text>0-2</text> </observationRange> </referenceRange> </observation> </component> <component> <observation moodCode="EVN" classCode="OBS"> <templateId root= "216.840.1.091009.08.03.22.4.2" /> <id nullFlavor="NA" /> < code codeSystem="local" code="EOSR" displayName="Eosinophils" /> < statusCode code="completed" /> <effectiveTime value="161411301446" /> <value unit="%" xsi:type="PQ" value="4" /> <referenceRange > <observationRange> <text>0-4</text> </ observationRange> </referenceRange> </observation> </ component> <component> <observation moodCode="EVN" classCode="OBS"> <templateId root="216.840.1.158240.08.03.22.4.2" /> <id nullFlavor="NA" /> <code codeSystem="local" code="HCT" displayName="HCT " /> <statusCode code="completed" /> <effectiveTime value= "125268372411" /> <value unit="%" xsi:type="PQ" value="36.8" /> <interpretationCode codeSystem="local" code="*" /> < referenceRange> <observationRange> <text>37.0-47.0</text > </observationRange> </referenceRange> </observation > </component> <component> <observation moodCode="EVN" classCode="OBS"> <templateId root="216.840.1.544946.10.4.2" /> <id nullFlavor="NA" /> <code codeSystem="local" code="HGB" displayName="HGB" /> <statusCode code="completed" /> < effectiveTime value="234886961507" /> <value unit="g/dL" xsi:type="PQ" value="11.7" /> <interpretationCode codeSystem="local" code="*" /> <referenceRange> <observationRange> <text>12.0- 16.0</text> </observationRange> </referenceRange> </ observation> </component> <component> <observation moodCode= "EVN" classCode="OBS"> <templateId root="216.840.1.707381.10..4.2 " /> <id nullFlavor="NA" /> <code codeSystem="local" code= "IMGA" displayName="Immature Granulocytes" /> <statusCode code= "completed" /> <effectiveTime value="931882106826" /> <value unit="%" xsi:type="PQ" value="0.5" /> <referenceRange> < observationRange> <text>0.0-1.0</text> </ observationRange> </referenceRange> </observation> </ component> <component> <observation moodCode="EVN" classCode="OBS"> <templateId root="11.30.840.1.755519.08.03.224.2" /> <id nullFlavor="NA" /> <code codeSystem="local" code="LYMPR" displayName= "Lymphocytes" /> <statusCode code="completed" /> < effectiveTime value="" /> <value unit="%" xsi:type="PQ " value="32" /> <referenceRange> <observationRange> <text>20-46</text> </observationRange> </ referenceRange> </observation> </component> <component> <observation moodCode="EVN" classCode="OBS"> <templateId root= "16.840.1.107189...4.2" /> <id nullFlavor="NA" /> < code codeSystem="local" code="MCH" displayName="MCH" /> <statusCode code="completed" /> <effectiveTime value="" /> < value unit="pg" xsi:type="PQ" value="29.9" /> <referenceRange> <observationRange> <text>27.0-32.0</text> </ observationRange> </referenceRange> </observation> </ component> <component> <observation moodCode="EVN" classCode="OBS"> <templateId root="216.840.1.131668.08.03.22.4.2" /> <id nullFlavor="NA" /> <code codeSystem="local" code="MCHC" displayName= "MCHC" /> <statusCode code="completed" /> <effectiveTime value ="169032790428" /> <value unit="g/dL" xsi:type="PQ" value="31.8" /> <interpretationCode codeSystem="local" code="*" /> < referenceRange> <observationRange> <text>32.0-36.0</text > </observationRange> </referenceRange> </observation > </component> <component> <observation moodCode="EVN" classCode="OBS"> <templateId root="16.840.1.791644.08.03.22.4.2" /> <id nullFlavor="NA" /> <code codeSystem="local" code="MCV" displayName="MCV" /> <statusCode code="completed" /> < effectiveTime value="612910192223" /> <value unit="fL" xsi:type="PQ" value="94.1" /> <referenceRange> <observationRange> <text>82.0-99.0</text> </observationRange> </ referenceRange> </observation> </component> <component> <observation moodCode="EVN" classCode="OBS"> <templateId root= "216.840.1.769553.22.4.2" /> <id nullFlavor="NA" /> < code codeSystem="local" code="MONOR" displayName="Monocytes" /> < statusCode code="completed" /> <effectiveTime value="481037952825" /> <value unit="%" xsi:type="PQ" value="7" /> <referenceRange > <observationRange> <text>4-11</text> </ observationRange> </referenceRange> </observation> </ component> <component> <observation moodCode="EVN" classCode="OBS"> <templateId root="2.16.840.1.973466.10.20.22.4.2" /> <id nullFlavor="NA" /> <code codeSystem="local" code="MPV" displayName="MPV " /> <statusCode code="completed" /> <effectiveTime value= "472689923238" /> <value unit="fL" xsi:type="PQ" value="9.4" /> <referenceRange> <observationRange> <text>9.4-12.4</ text> </observationRange> </referenceRange> </ observation> </component> <component> <observation moodCode= "EVN" classCode="OBS"> <templateId root="216.840.1.945184.10.20.22.4.2 " /> <id nullFlavor="NA" /> <code codeSystem="local" code= "SEGR" displayName="Neutrophils" /> <statusCode code="completed" /> <effectiveTime value="454599453856" /> <value unit="%" xsi: type="PQ" value="56" /> <referenceRange> <observationRange> <text>51-75</text> </observationRange> </ referenceRange> </observation> </component> <component> <observation moodCode="EVN" classCode="OBS"> <templateId root= "216.840.1.289679.10.22.4.2" /> <id nullFlavor="NA" /> < code codeSystem="local" code="NRBCA" displayName="Nucleated RBC Automated" /> <statusCode code="completed" /> <effectiveTime value= "597092576751" /> <value unit="/100WBC" xsi:type="PQ" value="0.0" /> <referenceRange> <observationRange> <text /> </observationRange> </referenceRange> </observation> </component> <component> <observation moodCode="EVN" classCode= "OBS"> <templateId root="216.840.1.771213.08.03.22.4.2" /> < id nullFlavor="NA" /> <code codeSystem="local" code="PLT" displayName= "Platelet Count" /> <statusCode code="completed" /> < effectiveTime value="815047596291" /> <value unit="K/uL" xsi:type="PQ" value="290" /> <referenceRange> <observationRange> <text>150-400</text> </observationRange> </ referenceRange> </observation> </component> <component> <observation moodCode="EVN" classCode="OBS"> <templateId root= "16.840.1.637357.22.4.2" /> <id nullFlavor="NA" /> < code codeSystem="local" code="RBC" displayName="RBC" /> <statusCode code="completed" /> <effectiveTime value="929373948327" /> < value unit="10*6/uL" xsi:type="PQ" value="3.91" /> <interpretationCode codeSystem="local" code="*" /> <referenceRange> < observationRange> <text>4.00-5.20</text> </ observationRange> </referenceRange> </observation> </ component> <component> <observation moodCode="EVN" classCode="OBS"> <templateId root="2.16.840.1.155188.10..4.2" /> <id nullFlavor="NA" /> <code codeSystem="local" code="RDW" displayName="RDW " /> <statusCode code="completed" /> <effectiveTime value= "987828682557" /> <value unit="%" xsi:type="PQ" value="13.3" /> <referenceRange> <observationRange> <text>11.5- 14.5</text> </observationRange> </referenceRange> </ observation> </component> <component> <observation moodCode= "EVN" classCode="OBS"> <templateId root="216.840.1.169449.08.03.22.4.2 " /> <id nullFlavor="NA" /> <code codeSystem="local" code= "WBCIR" displayName="WBC" /> <statusCode code="completed" /> < effectiveTime value="307059203737" /> <value unit="K/uL" xsi:type="PQ" value="6.1" /> <referenceRange> <observationRange> <text>4.8-10.8</text> </observationRange> </ referenceRange> </observation> </component> </organizer> </entry > <entry> <organizer moodCode="EVN" classCode="BATTERY"> <templateId root="2.16.840.1.453332.10.22.4.1" /> <id nullFlavor="NA" /> <code codeSystem="local" code="BMP" displayName="Basic Metabolic Panel (BMP)" /> <statusCode code="completed" /> <component> <observation moodCode= "EVN" classCode="OBS"> <templateId root="16.840.1.705002.10..22.4.2 " /> <id nullFlavor="NA" /> <code codeSystem="local" code= "AGAP" displayName="Anion Gap" /> <statusCode code="completed" /> <effectiveTime value="" /> <value unit="mEq/L" xsi: type="PQ" value="8" /> <referenceRange> <observationRange> <text>3-20</text> </observationRange> </ referenceRange> </observation> </component> <component> <observation moodCode="EVN" classCode="OBS"> <templateId root= "11.30.840.1.331484..22.4.2" /> <id nullFlavor="NA" /> < code codeSystem="local" code="BUN" displayName="BUN" /> <statusCode code="completed" /> <effectiveTime value="" /> < value unit="mg/dL" xsi:type="PQ" value="12" /> <referenceRange> <observationRange> <text>4-20</text> </ observationRange> </referenceRange> </observation> </ component> <component> <observation moodCode="EVN" classCode="OBS"> <templateId root="11.30.840.1.975920.10..22.4.2" /> <id nullFlavor="NA" /> <code codeSystem="local" code="CA" displayName= "Calcium" /> <statusCode code="completed" /> <effectiveTime value="238671311507" /> <value unit="mg/dL" xsi:type="PQ" value="8.3" / > <interpretationCode codeSystem="local" code="*" /> < referenceRange> <observationRange> <text>8.6-10.0</text > </observationRange> </referenceRange> </observation > </component> <component> <observation moodCode="EVN" classCode="OBS"> <templateId root="216.840.1.362427.10.20.22.4.2" /> <id nullFlavor="NA" /> <code codeSystem="local" code="CL" displayName="Chloride" /> <statusCode code="completed" /> < effectiveTime value="758625718964" /> <value unit="mEq/L" xsi:type="PQ " value="104" /> <referenceRange> <observationRange> <text>99-109</text> </observationRange> </ referenceRange> </observation> </component> <component> <observation moodCode="EVN" classCode="OBS"> <templateId root= "11.30.840.1.345407.1022.4.2" /> <id nullFlavor="NA" /> < code codeSystem="local" code="CO2" displayName="CO2" /> <statusCode code="completed" /> <effectiveTime value="639631955011" /> < value unit="mEq/L" xsi:type="PQ" value="26" /> <referenceRange> <observationRange> <text>22-32</text> </ observationRange> </referenceRange> </observation> </ component> <component> <observation moodCode="EVN" classCode="OBS"> <templateId root="11.30.840.1.536640.102022.4.2" /> <id nullFlavor="NA" /> <code codeSystem="local" code="CREAT" displayName= "Creatinine" /> <statusCode code="completed" /> < effectiveTime value="360728277068" /> <value unit="mg/dL" xsi:type="PQ " value="0.58" /> <referenceRange> <observationRange> <text>0.44-1.03</text> </observationRange> </ referenceRange> </observation> </component> <component> <observation moodCode="EVN" classCode="OBS"> <templateId root= "11.30.840.1.595307...4.2" /> <id nullFlavor="NA" /> < code codeSystem="local" code="GLU" displayName="Glucose" /> < statusCode code="completed" /> <effectiveTime value="646007950245" /> <value unit="mg/dL" xsi:type="PQ" value="67" /> < interpretationCode codeSystem="local" code="*" /> <referenceRange> <observationRange> <text>70-100</text> </ observationRange> </referenceRange> </observation> </ component> <component> <observation moodCode="EVN" classCode="OBS"> <templateId root="11.30.840.1.762101.08.03.22.4.2" /> <id nullFlavor="NA" /> <code codeSystem="local" code="K" displayName= "Potassium" /> <statusCode code="completed" /> <effectiveTime value="764832696385" /> <value unit="mEq/L" xsi:type="PQ" value="3.9" / > <referenceRange> <observationRange> <text>3.6 -5.1</text> </observationRange> </referenceRange> </ observation> </component> <component> <observation moodCode= "EVN" classCode="OBS"> <templateId root="11.30.840.1.039300...4.2 " /> <id nullFlavor="NA" /> <code codeSystem="local" code="NA " displayName="Sodium" /> <statusCode code="completed" /> < effectiveTime value="626226289927" /> <value unit="mEq/L" xsi:type="PQ " value="138" /> <referenceRange> <observationRange> <text>136-144</text> </observationRange> </ referenceRange> </observation> </component> </organizer> </entry > <entry> <organizer moodCode="EVN" classCode="BATTERY"> <templateId root="216.840.1.528761.10..22.4.1" /> <id nullFlavor="NA" /> <code codeSystem="local" code="GFR" displayName="eGFR" /> <statusCode code= "completed" /> <component> <observation moodCode="EVN" classCode= "OBS"> <templateId root="216.840.1.461411.10..22.4.2" /> < id nullFlavor="NA" /> <code codeSystem="local" code="GFR" displayName= "eGFR" /> <statusCode code="completed" /> <effectiveTime value ="146354816205" /> <value unit="mL/min" xsi:type="PQ" value=">60" / > <referenceRange> <observationRange> <text>&gt ;60</text> </observationRange> </referenceRange> </ observation> </component> </organizer> </entry> <entry> <organizer moodCode="EVN" classCode="BATTERY"> <templateId root= "216.840.1.283851.10.20.22.4.1" /> <id nullFlavor="NA" /> <code codeSystem="local" code="GLUN" displayName="Glucose NPT" /> <statusCode code="completed" /> <component> <observation moodCode="EVN" classCode="OBS"> <templateId root="216.840.1.906067.10.20.22.4.2" /> <id nullFlavor="NA" /> <code codeSystem="local" code="GLUN" displayName="Glucose NPT" /> <statusCode code="completed" /> <effectiveTime value="597248605175" /> <value unit="mg/dL" xsi:type="PQ " value="99" /> <referenceRange> <observationRange> <text>70-100</text> </observationRange> </ referenceRange> </observation> </component> </organizer> </entry > <entry> <organizer moodCode="EVN" classCode="BATTERY"> <templateId root="216.840.1.790889.10..22.4.1" /> <id nullFlavor="NA" /> <code codeSystem="local" code="81879-5" displayName="Complete blood count (CBC) with automated white blood cell (WBC) differential" /> <statusCode code= "completed" /> <component> <observation moodCode="EVN" classCode= "OBS"> <templateId root="2.16.840.1.657497.10.20.22.4.2" /> < id nullFlavor="NA" /> <code codeSystem="local" code="6690-2" displayName="Blood leukocytes automated count (number/volume)" /> < statusCode code="completed" /> <effectiveTime value="990975768166" /> <value unit="10*3/uL" xsi:type="PQ" value="9.1" /> < referenceRange> <observationRange> <text>4.3-11.0</text > </observationRange> </referenceRange> </observation > </component> <component> <observation moodCode="EVN" classCode="OBS"> <templateId root="2.16.840.1.431020.10.20.22.4.2" /> <id nullFlavor="NA" /> <code codeSystem="local" code="789-8" displayName="Blood erythrocytes automated count (number/volume)" /> < statusCode code="completed" /> <effectiveTime value="180496838169" /> <value unit="10*6/uL" xsi:type="PQ" value="4.56" /> < referenceRange> <observationRange> <text>4.35-5.85</text > </observationRange> </referenceRange> </observation > </component> <component> <observation moodCode="EVN" classCode="OBS"> <templateId root="2.16.840.1.384976.10.22.4.2" /> <id nullFlavor="NA" /> <code codeSystem="local" code="55792-1 " displayName="Venous blood hemoglobin measurement (mass/volume)" /> < statusCode code="completed" /> <effectiveTime value="152531871816" /> <value unit="g/dL" xsi:type="PQ" value="14.4" /> < referenceRange> <observationRange> <text>11.5-16.0</text > </observationRange> </referenceRange> </observation > </component> <component> <observation moodCode="EVN" classCode="OBS"> <templateId root="2.16.840.1.299118.10.20.22.4.2" /> <id nullFlavor="NA" /> <code codeSystem="local" code="83111-0 " displayName="Blood hematocrit (volume fraction)" /> <statusCode code= "completed" /> <effectiveTime value="130467794799" /> <value unit="%" xsi:type="PQ" value="40" /> <referenceRange> < observationRange> <text>35-52</text> </observationRange > </referenceRange> </observation> </component> < component> <observation moodCode="EVN" classCode="OBS"> < templateId root="2.16.840.1.633696.10..22.4.2" /> <id nullFlavor="NA " /> <code codeSystem="local" code="787-2" displayName="Automated erythrocyte mean corpuscular volume" /> <statusCode code="completed" / > <effectiveTime value="606461216456" /> <value unit="[foz_us] " xsi:type="PQ" value="88" /> <referenceRange> < observationRange> <text>80-99</text> </observationRange > </referenceRange> </observation> </component> < component> <observation moodCode="EVN" classCode="OBS"> < templateId root="216.840.1.725247.10...4.2" /> <id nullFlavor="NA " /> <code codeSystem="local" code="785-6" displayName="Automated erythrocyte mean corpuscular hemoglobin (mass per erythrocyte)" /> < statusCode code="completed" /> <effectiveTime value="014632773883" /> <value unit="pg" xsi:type="PQ" value="32" /> <referenceRange> <observationRange> <text>25-34</text> </ observationRange> </referenceRange> </observation> </ component> <component> <observation moodCode="EVN" classCode="OBS"> <templateId root="2.16.840.1.218765.10.20.22.4.2" /> <id nullFlavor="NA" /> <code codeSystem="local" code="786-4" displayName= "Automated erythrocyte mean corpuscular hemoglobin concentration measurement ( mass/volume)" /> <statusCode code="completed" /> < effectiveTime value="112200585765" /> <value unit="g/dL" xsi:type="PQ" value="36" /> <referenceRange> <observationRange> <text>32-36</text> </observationRange> </referenceRange > </observation> </component> <component> <observation moodCode="EVN" classCode="OBS"> <templateId root= "2.16.840.1.466242.10..22.4.2" /> <id nullFlavor="NA" /> < code codeSystem="local" code="788-0" displayName="Automated erythrocyte distribution width ratio" /> <statusCode code="completed" /> < effectiveTime value="488724101092" /> <value unit="%" xsi:type="PQ " value="14.4" /> <referenceRange> <observationRange> <text>10.0-14.5</text> </observationRange> </ referenceRange> </observation> </component> <component> <observation moodCode="EVN" classCode="OBS"> <templateId root= "2.16.840.1.715751.10..22.4.2" /> <id nullFlavor="NA" /> < code codeSystem="local" code="777-3" displayName="Automated blood platelet count (count/volume)" /> <statusCode code="completed" /> < effectiveTime value="272590370856" /> <value unit="10*3/uL" xsi:type= "PQ" value="279" /> <referenceRange> <observationRange> <text>130-400</text> </observationRange> </ referenceRange> </observation> </component> <component> <observation moodCode="EVN" classCode="OBS"> <templateId root= "2.16.840.1.931963.10...4.2" /> <id nullFlavor="NA" /> < code codeSystem="local" code="55469-0" displayName="Automated blood platelet mean volume measurement" /> <statusCode code="completed" /> < effectiveTime value="426476345644" /> <value unit="[foz_us]" xsi:type= "PQ" value="10.0" /> <referenceRange> <observationRange> <text>7.4-10.4</text> </observationRange> </ referenceRange> </observation> </component> <component> <observation moodCode="EVN" classCode="OBS"> <templateId root= "2.16.840.1.995029.08.03.22.4.2" /> <id nullFlavor="NA" /> < code codeSystem="local" code="770-8" displayName="Automated blood neutrophils/ 100 leukocytes" /> <statusCode code="completed" /> < effectiveTime value="528965707296" /> <value unit="%" xsi:type="PQ " value="58" /> <referenceRange> <observationRange> <text>42-75</text> </observationRange> </ referenceRange> </observation> </component> <component> <observation moodCode="EVN" classCode="OBS"> <templateId root= "2.16.840.1.192396.10...4.2" /> <id nullFlavor="NA" /> < code codeSystem="local" code="736-9" displayName="Automated blood lymphocytes/ 100 leukocytes" /> <statusCode code="completed" /> < effectiveTime value="696398705536" /> <value unit="%" xsi:type="PQ " value="27" /> <referenceRange> <observationRange> <text>12-44</text> </observationRange> </ referenceRange> </observation> </component> <component> <observation moodCode="EVN" classCode="OBS"> <templateId root= "2.16.840.1.303741.10..22.4.2" /> <id nullFlavor="NA" /> < code codeSystem="local" code="37230-8" displayName="Blood monocytes/100 leukocytes" /> <statusCode code="completed" /> <effectiveTime value="433229826519" /> <value unit="%" xsi:type="PQ" value="7" /> <referenceRange> <observationRange> <text>0-12 </text> </observationRange> </referenceRange> </ observation> </component> <component> <observation moodCode= "EVN" classCode="OBS"> <templateId root="2.16.840.1.020967.10..22.4.2 " /> <id nullFlavor="NA" /> <code codeSystem="local" code="713 -8" displayName="Automated blood eosinophils/100 leukocytes" /> < statusCode code="completed" /> <effectiveTime value="970116028143" /> <value unit="%" xsi:type="PQ" value="8" /> <referenceRange > <observationRange> <text>0-10</text> </ observationRange> </referenceRange> </observation> </ component> <component> <observation moodCode="EVN" classCode="OBS"> <templateId root="2.16.840.1.401427.10.20.22.4.2" /> <id nullFlavor="NA" /> <code codeSystem="local" code="706-2" displayName= "Automated blood basophils/100 leukocytes" /> <statusCode code= "completed" /> <effectiveTime value="302062656279" /> <value unit="%" xsi:type="PQ" value="1" /> <referenceRange> < observationRange> <text>0-10</text> </observationRange> </referenceRange> </observation> </component> < component> <observation moodCode="EVN" classCode="OBS"> < templateId root="2.16.840.1.369504.10.20.22.4.2" /> <id nullFlavor="NA " /> <code codeSystem="local" code="751-8" displayName="Blood neutrophils automated count (number/volume)" /> <statusCode code= "completed" /> <effectiveTime value="173151097817" /> <value unit="10*3" xsi:type="PQ" value="5.3" /> <referenceRange> < observationRange> <text>1.8-7.8</text> </ observationRange> </referenceRange> </observation> </ component> <component> <observation moodCode="EVN" classCode="OBS"> <templateId root="2.16.840.1.433510.10.20.22.4.2" /> <id nullFlavor="NA" /> <code codeSystem="local" code="731-0" displayName= "Blood lymphocytes automated count (number/volume)" /> <statusCode code ="completed" /> <effectiveTime value="523875498579" /> <value unit="10*3" xsi:type="PQ" value="2.4" /> <referenceRange> < observationRange> <text>1.0-4.0</text> </ observationRange> </referenceRange> </observation> </ component> <component> <observation moodCode="EVN" classCode="OBS"> <templateId root="2.16.840.1.520620.10..22.4.2" /> <id nullFlavor="NA" /> <code codeSystem="local" code="742-7" displayName= "Blood monocytes automated count (number/volume)" /> <statusCode code= "completed" /> <effectiveTime value="820795860425" /> <value unit="10*3" xsi:type="PQ" value="0.7" /> <referenceRange> < observationRange> <text>0.0-1.0</text> </ observationRange> </referenceRange> </observation> </ component> <component> <observation moodCode="EVN" classCode="OBS"> <templateId root="216.840.1.788887...4.2" /> <id nullFlavor="NA" /> <code codeSystem="local" code="711-2" displayName= "Automated eosinophil count" /> <statusCode code="completed" /> <effectiveTime value="536152756760" /> <value unit="10*3/uL" xsi: type="PQ" value="0.7" /> <interpretationCode codeSystem="local" code="* *" /> <referenceRange> <observationRange> <text >0.0-0.3</text> </observationRange> </referenceRange> </observation> </component> <component> <observation moodCode ="EVN" classCode="OBS"> <templateId root= "216.840.1.296960.10..22.4.2" /> <id nullFlavor="NA" /> < code codeSystem="local" code="704-7" displayName="Automated blood basophil count (count/volume)" /> <statusCode code="completed" /> < effectiveTime value="505184205879" /> <value unit="10*3/uL" xsi:type= "PQ" value="0.1" /> <referenceRange> <observationRange> <text>0.0-0.1</text> </observationRange> </ referenceRange> </observation> </component> </organizer> </entry > <entry> <organizer moodCode="EVN" classCode="BATTERY"> <templateId root="216.840.1.437707.10..22.4.1" /> <id nullFlavor="NA" /> <code codeSystem="local" code="24465-1" displayName="Comprehensive metabolic panel" / > <statusCode code="completed" /> <component> <observation moodCode="EVN" classCode="OBS"> <templateId root= "2.16.840.1.880225.10..22.4.2" /> <id nullFlavor="NA" /> < code codeSystem="local" code="2951-2" displayName="Serum or plasma sodium measurement (moles/volume)" /> <statusCode code="completed" /> <effectiveTime value="465405066850" /> <value unit="mmol/L" xsi:type= "PQ" value="139" /> <referenceRange> <observationRange> <text>135-145</text> </observationRange> </ referenceRange> </observation> </component> <component> <observation moodCode="EVN" classCode="OBS"> <templateId root= "2.16.840.1.121074.10..22.4.2" /> <id nullFlavor="NA" /> < code codeSystem="local" code="2823-3" displayName="Serum or plasma potassium measurement (moles/volume)" /> <statusCode code="completed" /> <effectiveTime value="518043020743" /> <value unit="mmol/L" xsi:type= "PQ" value="3.9" /> <referenceRange> <observationRange> <text>3.6-5.0</text> </observationRange> </ referenceRange> </observation> </component> <component> <observation moodCode="EVN" classCode="OBS"> <templateId root= "2.16.840.1.001030.10..22.4.2" /> <id nullFlavor="NA" /> < code codeSystem="local" code="" displayName="Serum or plasma chloride measurement (moles/volume)" /> <statusCode code="completed" /> <effectiveTime value="111413189102" /> <value unit="mmol/L" xsi:type= "PQ" value="108" /> <interpretationCode codeSystem="local" code="" / > <referenceRange> <observationRange> <text>98- 107</text> </observationRange> </referenceRange> </ observation> </component> <component> <observation moodCode= "EVN" classCode="OBS"> <templateId root="2.16.840.1.614898.10..22.4.2 " /> <id nullFlavor="NA" /> <code codeSystem="local" code= "2028-06" displayName="Carbon dioxide" /> <statusCode code="completed" / > <effectiveTime value="846097054969" /> <value unit="mmol/L" xsi:type="PQ" value="17" /> <interpretationCode codeSystem="local" code ="" /> <referenceRange> <observationRange> < text>21-32</text> </observationRange> </referenceRange> </observation> </component> <component> <observation moodCode="EVN" classCode="OBS"> <templateId root= "2.16.840.1.358844.10.20.22.4.2" /> <id nullFlavor="NA" /> < code codeSystem="local" code="59442-7" displayName="Serum or plasma anion gap determination (moles/volume)" /> <statusCode code="completed" /> <effectiveTime value="836284521958" /> <value unit="mmol/L" xsi: type="PQ" value="14" /> <referenceRange> <observationRange> <text>5-14</text> </observationRange> </ referenceRange> </observation> </component> <component> <observation moodCode="EVN" classCode="OBS"> <templateId root= "2.16.840.1.615369.10..22.4.2" /> <id nullFlavor="NA" /> < code codeSystem="local" code="3094-0" displayName="Serum or plasma urea nitrogen measurement (mass/volume)" /> <statusCode code="completed" /> <effectiveTime value="466987087391" /> <value unit="mg/dL" xsi:type="PQ" value="10" /> <referenceRange> < observationRange> <text>7-18</text> </observationRange> </referenceRange> </observation> </component> < component> <observation moodCode="EVN" classCode="OBS"> < templateId root="2.16.840.1.364591.10..22.4.2" /> <id nullFlavor="NA " /> <code codeSystem="local" code="2160-0" displayName="Serum or plasma creatinine measurement (mass/volume)" /> <statusCode code= "completed" /> <effectiveTime value="649713489157" /> <value unit="mg/dL" xsi:type="PQ" value="0.72" /> <referenceRange> <observationRange> <text>0.60-1.30</text> </ observationRange> </referenceRange> </observation> </ component> <component> <observation moodCode="EVN" classCode="OBS"> <templateId root="2.16.840.1.076126.10.20.22.4.2" /> <id nullFlavor="NA" /> <code codeSystem="local" code="3097-3" displayName= "Serum or plasma urea nitrogen/creatinine mass ratio" /> <statusCode code="completed" /> <effectiveTime value="360695378869" /> < value unit="" xsi:type="PQ" value="14" /> <referenceRange> < observationRange> <text>NRG</text> </observationRange> </referenceRange> </observation> </component> < component> <observation moodCode="EVN" classCode="OBS"> < templateId root="216.840.1.430276.10..22.4.2" /> <id nullFlavor="NA " /> <code codeSystem="local" code="00309-9" displayName="Serum or plasma creatinine measurement with calculation of estimated glomerular filtration rate" /> <statusCode code="completed" /> < effectiveTime value="886974676534" /> <value unit="" xsi:type="PQ" value=">" /> <referenceRange> <observationRange> <text>NRG</text> </observationRange> </referenceRange > </observation> </component> <component> <observation moodCode="EVN" classCode="OBS"> <templateId root= "216.840.1.175509.10.20.22.4.2" /> <id nullFlavor="NA" /> < code codeSystem="local" code="2345-7" displayName="Serum or plasma glucose measurement (mass/volume)" /> <statusCode code="completed" /> <effectiveTime value="301057578860" /> <value unit="mg/dL" xsi:type="PQ " value="68" /> <interpretationCode codeSystem="local" code="" /> <referenceRange> <observationRange> <text>70-105< /text> </observationRange> </referenceRange> </ observation> </component> <component> <observation moodCode= "EVN" classCode="OBS"> <templateId root="2.16.840.1.969298.10.20.22.4.2 " /> <id nullFlavor="NA" /> <code codeSystem="local" code= "39265-5" displayName="Serum or plasma calcium measurement (mass/volume)" /> <statusCode code="completed" /> <effectiveTime value= "076520757168" /> <value unit="mg/dL" xsi:type="PQ" value="9.3" /> <referenceRange> <observationRange> <text>8.5-10.1 </text> </observationRange> </referenceRange> </ observation> </component> <component> <observation moodCode= "EVN" classCode="OBS"> <templateId root="2.16.840.1.727182.10.20.22.4.2 " /> <id nullFlavor="NA" /> <code codeSystem="local" code= "1974-11" displayName="Serum or plasma total bilirubin measurement (mass/volume) " /> <statusCode code="completed" /> <effectiveTime value= "858895136920" /> <value unit="mg/dL" xsi:type="PQ" value="0.3" /> <referenceRange> <observationRange> <text>0.1-1.0< /text> </observationRange> </referenceRange> </ observation> </component> <component> <observation moodCode= "EVN" classCode="OBS"> <templateId root="2.16.840.1.959914.10.20.22.4.2 " /> <id nullFlavor="NA" /> <code codeSystem="local" code= "6768-6" displayName="Serum or plasma alkaline phosphatase measurement ( enzymatic activity/volume)" /> <statusCode code="completed" /> <effectiveTime value="338032214176" /> <value unit="U/L" xsi:type="PQ " value="74" /> <referenceRange> <observationRange> <text>40-136</text> </observationRange> </ referenceRange> </observation> </component> <component> <observation moodCode="EVN" classCode="OBS"> <templateId root= "2.16.840.1.233020.10..22.4.2" /> <id nullFlavor="NA" /> < code codeSystem="local" code="192" displayName="Serum or plasma aspartate aminotransferase measurement (enzymatic activity/volume)" /> < statusCode code="completed" /> <effectiveTime value="509791532910" /> <value unit="U/L" xsi:type="PQ" value="14" /> <referenceRange > <observationRange> <text>5-34</text> </ observationRange> </referenceRange> </observation> </ component> <component> <observation moodCode="EVN" classCode="OBS"> <templateId root="2.16.840.1.652263.10.20.22.4.2" /> <id nullFlavor="NA" /> <code codeSystem="local" code="1742" displayName= "Serum or plasma alanine aminotransferase measurement (enzymatic activity/volume )" /> <statusCode code="completed" /> <effectiveTime value= "104857633689" /> <value unit="U/L" xsi:type="PQ" value="12" /> <referenceRange> <observationRange> <text>0-55</text > </observationRange> </referenceRange> </observation > </component> <component> <observation moodCode="EVN" classCode="OBS"> <templateId root="2.16.840.1.194757.10..22.4.2" /> <id nullFlavor="NA" /> <code codeSystem="local" code="2885-2" displayName="Serum or plasma protein measurement (mass/volume)" /> < statusCode code="completed" /> <effectiveTime value="762281145894" /> <value unit="g/dL" xsi:type="PQ" value="7.2" /> < referenceRange> <observationRange> <text>6.4-8.2</text> </observationRange> </referenceRange> </observation > </component> <component> <observation moodCode="EVN" classCode="OBS"> <templateId root="2.16.840.1.626318.10..22.4.2" /> <id nullFlavor="NA" /> <code codeSystem="local" code="1751-7" displayName="Serum or plasma albumin measurement (mass/volume)" /> < statusCode code="completed" /> <effectiveTime value="658491051862" /> <value unit="g/dL" xsi:type="PQ" value="4.3" /> < referenceRange> <observationRange> <text>3.2-4.5</text> </observationRange> </referenceRange> </observation > </component> </organizer> </entry> <entry> <organizer moodCode= "EVN" classCode="BATTERY"> <templateId root="2.16.840.1.818672.10..22.4.1 " /> <id nullFlavor="NA" /> <code codeSystem="local" code="4024-6" displayName="Serum or plasma salicylates measurement (mass/volume)" /> < statusCode code="completed" /> <component> <observation moodCode= "EVN" classCode="OBS"> <templateId root="216.840.1.233084.10..22.4.2 " /> <id nullFlavor="NA" /> <code codeSystem="local" code= "4024-6" displayName="Serum or plasma salicylates measurement (mass/volume)" /> <statusCode code="completed" /> <effectiveTime value= "387246818263" /> <value unit="mg/dL" xsi:type="PQ" value="<" /> <interpretationCode codeSystem="local" code="" /> < referenceRange> <observationRange> <text>5.0-20.0</text > </observationRange> </referenceRange> </observation > </component> </organizer> </entry> <entry> <organizer moodCode= "EVN" classCode="BATTERY"> <templateId root="216.840.1.185052.10..22.4.1 " /> <id nullFlavor="NA" /> <code codeSystem="local" code="3298-7" displayName="Serum or plasma acetaminophen measurement (mass/volume)" /> < statusCode code="completed" /> <component> <observation moodCode= "EVN" classCode="OBS"> <templateId root="2.16.840.1.808776.10.20.22.4.2 " /> <id nullFlavor="NA" /> <code codeSystem="local" code= "3298-7" displayName="Serum or plasma acetaminophen measurement (mass/volume)" / > <statusCode code="completed" /> <effectiveTime value= "431482314610" /> <value unit="ug/mL" xsi:type="PQ" value="<" /> <interpretationCode codeSystem="local" code="" /> < referenceRange> <observationRange> <text>10-30</text> </observationRange> </referenceRange> </observation> </component> </organizer> </entry> <entry> <organizer moodCode="EVN " classCode="BATTERY"> <templateId root="2.16.840.1.407746.10.20.22.4.1" / > <id nullFlavor="NA" /> <code codeSystem="local" code="5643-2" displayName="Serum or plasma ethanol measurement (mass/volume)" /> < statusCode code="completed" /> <component> <observation moodCode= "EVN" classCode="OBS"> <templateId root="2.16.840.1.194739.10.20.22.4.2 " /> <id nullFlavor="NA" /> <code codeSystem="local" code= "5643-2" displayName="Serum or plasma ethanol measurement (mass/volume)" /> <statusCode code="completed" /> <effectiveTime value= "793838008038" /> <value unit="mg/dL" xsi:type="PQ" value="<" /> <referenceRange> <observationRange> <text><10< /text> </observationRange> </referenceRange> </ observation> </component> </organizer> </entry> <entry> <organizer moodCode="EVN" classCode="BATTERY"> <templateId root= "2.16.840.1.953193.10.20.22.4.1" /> <id nullFlavor="NA" /> <code codeSystem="local" code="72652-5" displayName="Serum or plasma thyrotropin measurement by detection limit <=0.05 miu/l (units/volume)" /> < statusCode code="completed" /> <component> <observation moodCode= "EVN" classCode="OBS"> <templateId root="16.840.1.265207.10..4.2 " /> <id nullFlavor="NA" /> <code codeSystem="local" code= "65309-5" displayName="Serum or plasma thyrotropin measurement by detection limit <=0.05 miu/l (units/volume)" /> <statusCode code="completed" / > <effectiveTime value="181978321661" /> <value unit="u[iU]/mL " xsi:type="PQ" value="1.91" /> <referenceRange> < observationRange> <text>0.35-4.94</text> </ observationRange> </referenceRange> </observation> </ component> </organizer> </entry> <entry> <organizer moodCode="EVN" classCode="BATTERY"> <templateId root="11.30.840.1.427533.10.4.1" /> <id nullFlavor="NA" /> <code codeSystem="local" code="69756-7" displayName="Complete urinalysis with reflex to culture" /> <statusCode code="completed" /> <component> <observation moodCode="EVN" classCode="OBS"> <templateId root="16.840.1.592031.10..22.4.2" /> <id nullFlavor="NA" /> <code codeSystem="local" code="5778-6" displayName="Urine color determination" /> <statusCode code="completed " /> <effectiveTime value="451421132648" /> <value unit="" xsi :type="PQ" value="YELLOW" /> <referenceRange> < observationRange> <text>NRG</text> </observationRange> </referenceRange> </observation> </component> < component> <observation moodCode="EVN" classCode="OBS"> < templateId root="216.840.1.735605.10.20.22.4.2" /> <id nullFlavor="NA " /> <code codeSystem="local" code="39257-9" displayName="Urine clarity determination" /> <statusCode code="completed" /> < effectiveTime value="865086179187" /> <value unit="" xsi:type="PQ" value="SLIGHTLY CLOUDY" /> <referenceRange> < observationRange> <text>NRG</text> </observationRange> </referenceRange> </observation> </component> < component> <observation moodCode="EVN" classCode="OBS"> < templateId root="11.30.840.1.392851.10.20.22.4.2" /> <id nullFlavor="NA " /> <code codeSystem="local" code="5803-2" displayName="Urine pH measurement by test strip" /> <statusCode code="completed" /> <effectiveTime value="071889585076" /> <value unit="" xsi:type="PQ" value="6" /> <referenceRange> <observationRange> <text>5-9</text> </observationRange> </referenceRange> </observation> </component> <component> <observation moodCode="EVN" classCode="OBS"> <templateId root= "16.840.1.725914.10.20.22.4.2" /> <id nullFlavor="NA" /> < code codeSystem="local" code="5811-5" displayName="Specific gravity of urine by test strip" /> <statusCode code="completed" /> <effectiveTime value="382010473168" /> <value unit="" xsi:type="PQ" value="1.010" /> <interpretationCode codeSystem="local" code="" /> < referenceRange> <observationRange> <text>1.016-1.022</ text> </observationRange> </referenceRange> </ observation> </component> <component> <observation moodCode= "EVN" classCode="OBS"> <templateId root="16.840.1.325653.10.22.4.2 " /> <id nullFlavor="NA" /> <code codeSystem="local" code= "59628-2" displayName="Urine protein assay by test strip, semi-quantitative" /> <statusCode code="completed" /> <effectiveTime value= "[id number]" /> <value unit="" xsi:type="PQ" value="NEGATIVE" /> <referenceRange> <observationRange> <text>NEGATIVE </text> </observationRange> </referenceRange> </ observation> </component> <component> <observation moodCode= "EVN" classCode="OBS"> <templateId root="11.30.840.1.410756.10.22.4.2 " /> <id nullFlavor="NA" /> <code codeSystem="local" code= "13493-3" displayName="Urine glucose detection by automated test strip" /> <statusCode code="completed" /> <effectiveTime value="[id number] " /> <value unit="" xsi:type="PQ" value="NEGATIVE" /> < referenceRange> <observationRange> <text>NEGATIVE</text > </observationRange> </referenceRange> </observation > </component> <component> <observation moodCode="EVN" classCode="OBS"> <templateId root="11.30.840.1.980149.22.4.2" /> <id nullFlavor="NA" /> <code codeSystem="local" code="18956-5 " displayName="Erythrocytes detection in urine sediment by light microscopy" /> <statusCode code="completed" /> <effectiveTime value= "" /> <value unit="" xsi:type="PQ" value="NEGATIVE" /> <referenceRange> <observationRange> <text>NEGATIVE </text> </observationRange> </referenceRange> </ observation> </component> <component> <observation moodCode= "EVN" classCode="OBS"> <templateId root="2.16.840.1.832264.10..22.4.2 " /> <id nullFlavor="NA" /> <code codeSystem="local" code= "95175-4" displayName="Urine ketones detection by automated test strip" /> <statusCode code="completed" /> <effectiveTime value=" " /> <value unit="" xsi:type="PQ" value="NEGATIVE" /> < referenceRange> <observationRange> <text>NEGATIVE</text > </observationRange> </referenceRange> </observation > </component> <component> <observation moodCode="EVN" classCode="OBS"> <templateId root="2.16.840.1.080956.10..22.4.2" /> <id nullFlavor="NA" /> <code codeSystem="local" code="5802-4" displayName="Urine nitrite detection by test strip" /> <statusCode code ="completed" /> <effectiveTime value="" /> <value unit="" xsi:type="PQ" value="NEGATIVE" /> <referenceRange> < observationRange> <text>NEGATIVE</text> </ observationRange> </referenceRange> </observation> </ component> <component> <observation moodCode="EVN" classCode="OBS"> <templateId root="216.840.1.922979.10.20.22.4.2" /> <id nullFlavor="NA" /> <code codeSystem="local" code="5770-3" displayName= "Urine total bilirubin detection by test strip" /> <statusCode code= "completed" /> <effectiveTime value="" /> <value unit="" xsi:type="PQ" value="NEGATIVE" /> <referenceRange> < observationRange> <text>NEGATIVE</text> </ observationRange> </referenceRange> </observation> </ component> <component> <observation moodCode="EVN" classCode="OBS"> <templateId root="16.840.1.711655.10..22.4.2" /> <id nullFlavor="NA" /> <code codeSystem="local" code="94549-8" displayName= "Urine urobilinogen measurement by automated test strip (mass/volume)" /> <statusCode code="completed" /> <effectiveTime value=" " /> <value unit="" xsi:type="PQ" value="NORMAL" /> < referenceRange> <observationRange> <text>NORMAL</text> </observationRange> </referenceRange> </observation> </component> <component> <observation moodCode="EVN" classCode ="OBS"> <templateId root="216.840.1.594261.10.20.22.4.2" /> < id nullFlavor="NA" /> <code codeSystem="local" code="5799-2" displayName="Urine leukocyte esterase detection by dipstick" /> < statusCode code="completed" /> <effectiveTime value="" /> <value unit="" xsi:type="PQ" value="3+" /> < interpretationCode codeSystem="local" code="*" /> <referenceRange> <observationRange> <text>NEGATIVE</text> </ observationRange> </referenceRange> </observation> </ component> <component> <observation moodCode="EVN" classCode="OBS"> <templateId root="16.840.1.962982.10.20.22.4.2" /> <id nullFlavor="NA" /> <code codeSystem="local" code="33950-3" displayName= "Automated urine sediment erythrocyte count by microscopy (number/high power field)" /> <statusCode code="completed" /> <effectiveTime value="380429291568" /> <value unit="" xsi:type="PQ" value="NONE" /> <referenceRange> <observationRange> <text>NRG</ text> </observationRange> </referenceRange> </ observation> </component> <component> <observation moodCode= "EVN" classCode="OBS"> <templateId root="11.30.840.1.278960.10..22.4.2 " /> <id nullFlavor="NA" /> <code codeSystem="local" code= "5821-4" displayName="Automated urine sediment leukocyte count by microscopy ( number/high power field)" /> <statusCode code="completed" /> < effectiveTime value="185274517128" /> <value unit="[HPF]" xsi:type="PQ " value="" /> <interpretationCode codeSystem="local" code="*" /> <referenceRange> <observationRange> <text>NRG</text > </observationRange> </referenceRange> </observation > </component> <component> <observation moodCode="EVN" classCode="OBS"> <templateId root="16.840.1.646883.10.20.22.4.2" /> <id nullFlavor="NA" /> <code codeSystem="local" code="39922-4 " displayName="Bacteria detection in urine sediment by light microscopy" /> <statusCode code="completed" /> <effectiveTime value= "152840476763" /> <value unit="" xsi:type="PQ" value="TRACE" /> <referenceRange> <observationRange> <text>NRG</text> </observationRange> </referenceRange> </observation > </component> <component> <observation moodCode="EVN" classCode="OBS"> <templateId root="2.16.840.1.890918.10.20.22.4.2" /> <id nullFlavor="NA" /> <code codeSystem="local" code="19434-2 " displayName="Squamous epithelial cells detection in urine sediment by light microscopy" /> <statusCode code="completed" /> <effectiveTime value="839153818634" /> <value unit="" xsi:type="PQ" value="10-25" /> <interpretationCode codeSystem="local" code="*" /> < referenceRange> <observationRange> <text>NRG</text> </observationRange> </referenceRange> </observation> </component> <component> <observation moodCode="EVN" classCode= "OBS"> <templateId root="2.16.840.1.418953.10.20.22.4.2" /> < id nullFlavor="NA" /> <code codeSystem="local" code="67819-0" displayName="Crystals detection in urine sediment by light microscopy" /> <statusCode code="completed" /> <effectiveTime value="348668497197 " /> <value unit="" xsi:type="PQ" value="NONE" /> < referenceRange> <observationRange> <text>NRG</text> </observationRange> </referenceRange> </observation> </component> <component> <observation moodCode="EVN" classCode= "OBS"> <templateId root="216.840.1.667837.10.20.22.4.2" /> < id nullFlavor="NA" /> <code codeSystem="local" code="80831-0" displayName="Casts detection in urine sediment by light microscopy" /> <statusCode code="completed" /> <effectiveTime value="" /> <value unit="" xsi:type="PQ" value="NONE" /> <referenceRange > <observationRange> <text>NRG</text> </ observationRange> </referenceRange> </observation> </ component> <component> <observation moodCode="EVN" classCode="OBS"> <templateId root="16.840.1.762026.10..22.4.2" /> <id nullFlavor="NA" /> <code codeSystem="local" code="8247-9" displayName= "Mucus detection in urine sediment by light microscopy" /> <statusCode code="completed" /> <effectiveTime value="" /> < value unit="" xsi:type="PQ" value="NEGATIVE" /> <referenceRange> <observationRange> <text>NRG</text> </ observationRange> </referenceRange> </observation> </ component> <component> <observation moodCode="EVN" classCode="OBS"> <templateId root="16.840.1.232117.10.20.22.4.2" /> <id nullFlavor="NA" /> <code codeSystem="local" code="10628-3" displayName= "Complete urinalysis with reflex to culture" /> <statusCode code= "completed" /> <effectiveTime value="170277803726" /> <value unit="" xsi:type="PQ" value="YES" /> <referenceRange> < observationRange> <text>NRG</text> </observationRange> </referenceRange> </observation> </component> < component> <observation moodCode="EVN" classCode="OBS"> < templateId root="16.840.1.194419.10.20.22.4.2" /> <id nullFlavor="NA " /> <code codeSystem="local" code="86516-4" displayName="Urine Trichomonas species detection by light microscopy" /> <statusCode code= "completed" /> <effectiveTime value="323493863009" /> <value unit="" xsi:type="PQ" value="FEW" /> <interpretationCode codeSystem= "local" code="*" /> <referenceRange> <observationRange> <text>NRG</text> </observationRange> </ referenceRange> </observation> </component> </organizer> </entry > <entry> <organizer moodCode="EVN" classCode="BATTERY"> <templateId root="11.30.840.1.303932.10.20.22.4.1" /> <id nullFlavor="NA" /> <code codeSystem="local" code="2114-04" displayName="Urine beta human chorionic gonadotropin (hCG) measurement" /> <statusCode code="completed" /> < component> <observation moodCode="EVN" classCode="OBS"> < templateId root="16.840.1.572188.10.20.22.4.2" /> <id nullFlavor="NA " /> <code codeSystem="local" code="2114-04" displayName="Urine beta human chorionic gonadotropin (hCG) measurement" /> <statusCode code= "completed" /> <effectiveTime value="899275419768" /> <value unit="" xsi:type="PQ" value="NEGATIVE" /> <referenceRange> < observationRange> <text>NEGATIVE</text> </ observationRange> </referenceRange> </observation> </ component> </organizer> </entry> <entry> <organizer moodCode="EVN" classCode="BATTERY"> <templateId root="2.16.840.1.733371.10..22.4.1" /> <id nullFlavor="NA" /> <code codeSystem="local" code="04490-4" displayName="Urine drug screening test" /> <statusCode code="completed" /> <component> <observation moodCode="EVN" classCode="OBS"> < templateId root="2.16.840.1.665032.10..22.4.2" /> <id nullFlavor="NA " /> <code codeSystem="local" code="76101-2" displayName="Urine phencyclidine detection by screening method" /> <statusCode code= "completed" /> <effectiveTime value="691946547682" /> <value unit="" xsi:type="PQ" value="NEGATIVE" /> <referenceRange> < observationRange> <text>NEGATIVE</text> </ observationRange> </referenceRange> </observation> </ component> <component> <observation moodCode="EVN" classCode="OBS"> <templateId root="2.16.840.1.280150.10..22.4.2" /> <id nullFlavor="NA" /> <code codeSystem="local" code="95778-2" displayName= "Urine benzodiazepines detection by screening method" /> <statusCode code="completed" /> <effectiveTime value="885476715705" /> < value unit="" xsi:type="PQ" value="NEGATIVE" /> <referenceRange> <observationRange> <text>NEGATIVE</text> </ observationRange> </referenceRange> </observation> </ component> <component> <observation moodCode="EVN" classCode="OBS"> <templateId root="216.840.1.176967.10.20.22.4.2" /> <id nullFlavor="NA" /> <code codeSystem="local" code="3397-7" displayName= "Urine cocaine detection" /> <statusCode code="completed" /> < effectiveTime value="" /> <value unit="" xsi:type="PQ" value="NEGATIVE" /> <referenceRange> <observationRange> <text>NEGATIVE</text> </observationRange> </ referenceRange> </observation> </component> <component> <observation moodCode="EVN" classCode="OBS"> <templateId root= "216.840.1.322910.10..22.4.2" /> <id nullFlavor="NA" /> < code codeSystem="local" code="40349-9" displayName="Urine amphetamines detection by screening method" /> <statusCode code="completed" /> <effectiveTime value="" /> <value unit="" xsi:type="PQ " value="NEGATIVE" /> <referenceRange> <observationRange> <text>NEGATIVE</text> </observationRange> </ referenceRange> </observation> </component> <component> <observation moodCode="EVN" classCode="OBS"> <templateId root= "16.840.1.516329.10.20.22.4.2" /> <id nullFlavor="NA" /> < code codeSystem="local" code="62942-2" displayName="Urine methamphetamine detection by screening method" /> <statusCode code="completed" /> <effectiveTime value="" /> <value unit="" xsi:type="PQ " value="NEGATIVE" /> <referenceRange> <observationRange> <text>NEGATIVE</text> </observationRange> </ referenceRange> </observation> </component> <component> <observation moodCode="EVN" classCode="OBS"> <templateId root= "2.16.840.1.872485.10.22.4.2" /> <id nullFlavor="NA" /> < code codeSystem="local" code="64472-4" displayName="Urine cannabinoids detection by screening method" /> <statusCode code="completed" /> <effectiveTime value="" /> <value unit="" xsi:type="PQ " value="NEGATIVE" /> <referenceRange> <observationRange> <text>NEGATIVE</text> </observationRange> </ referenceRange> </observation> </component> <component> <observation moodCode="EVN" classCode="OBS"> <templateId root= "216.840.1.218005.1022.4.2" /> <id nullFlavor="NA" /> < code codeSystem="local" code="95860-5" displayName="Urine opiates detection by screening method" /> <statusCode code="completed" /> < effectiveTime value="" /> <value unit="" xsi:type="PQ" value="NEGATIVE" /> <referenceRange> <observationRange> <text>NEGATIVE</text> </observationRange> </ referenceRange> </observation> </component> <component> <observation moodCode="EVN" classCode="OBS"> <templateId root= "2.16.840.1.062466.10.2022.4.2" /> <id nullFlavor="NA" /> < code codeSystem="local" code="3377-9" displayName="Urine barbiturates detection " /> <statusCode code="completed" /> <effectiveTime value= "" /> <value unit="" xsi:type="PQ" value="NEGATIVE" /> <referenceRange> <observationRange> <text>NEGATIVE </text> </observationRange> </referenceRange> </ observation> </component> <component> <observation moodCode= "EVN" classCode="OBS"> <templateId root="216.840.1.186718.10.20.22.4.2 " /> <id nullFlavor="NA" /> <code codeSystem="local" code= "" displayName="Screening urine tricyclic antidepressants detection" /> <statusCode code="completed" /> <effectiveTime value= "089365274388" /> <value unit="" xsi:type="PQ" value="NEGATIVE" /> <referenceRange> <observationRange> <text>NEGATIVE </text> </observationRange> </referenceRange> </ observation> </component> <component> <observation moodCode= "EVN" classCode="OBS"> <templateId root="11.30.840.1.809788.10.22.4.2 " /> <id nullFlavor="NA" /> <code codeSystem="local" code= "29492-8" displayName="Urine methadone detection by screening method" /> <statusCode code="completed" /> <effectiveTime value="748462398526" /> <value unit="" xsi:type="PQ" value="NEGATIVE" /> < referenceRange> <observationRange> <text>NEGATIVE</text > </observationRange> </referenceRange> </observation > </component> <component> <observation moodCode="EVN" classCode="OBS"> <templateId root="11.30.840.1.194924.10.2022.4.2" /> <id nullFlavor="NA" /> <code codeSystem="local" code="20404-8 " displayName="Urine oxycodone detection" /> <statusCode code= "completed" /> <effectiveTime value="" /> <value unit="" xsi:type="PQ" value="NEGATIVE" /> <referenceRange> < observationRange> <text>NEGATIVE</text> </ observationRange> </referenceRange> </observation> </ component> <component> <observation moodCode="EVN" classCode="OBS"> <templateId root="216.840.1.654142.08.03.22.4.2" /> <id nullFlavor="NA" /> <code codeSystem="local" code="66184-0" displayName= "Urine propoxyphene detection" /> <statusCode code="completed" /> <effectiveTime value="" /> <value unit="" xsi:type="PQ " value="NEGATIVE" /> <referenceRange> <observationRange> <text>NEGATIVE</text> </observationRange> </ referenceRange> </observation> </component> </organizer> </entry > <entry> <organizer moodCode="EVN" classCode="BATTERY"> <templateId root="216.840.1.807539.08.03.22.4.1" /> <id nullFlavor="NA" /> <code codeSystem="local" code="630-4" displayName="Bacterial urine culture" /> < statusCode code="completed" /> <component> <observation moodCode= "EVN" classCode="OBS"> <templateId root="216.840.1.463477.1022.4.2 " /> <id nullFlavor="NA" /> <code codeSystem="local" code="630 -4" displayName="Bacterial urine culture" /> <statusCode code= "completed" /> <effectiveTime value="" /> <value unit="" xsi:type="PQ" value="SEE COMMEN" /> <referenceRange> <observationRange> <text>NRG</text> </observationRange > </referenceRange> </observation> </component> < component> <observation moodCode="EVN" classCode="OBS"> < templateId root="216.840.1.279205.10.20.22.4.2" /> <id nullFlavor="NA " /> <code codeSystem="local" code="CC" displayName="COLONY COUNT" /> <statusCode code="completed" /> <effectiveTime value= "777945143099" /> <value unit="" xsi:type="PQ" value="." /> < referenceRange> <observationRange> <text>NRG</text> </observationRange> </referenceRange> </observation> </component> </organizer> </entry> <entry> <organizer moodCode="EVN" classCode="BATTERY"> <templateId root="2.16.840.1.823795.10..22.4.1" /> <id nullFlavor="NA" /> <code codeSystem="local" code="48186-1" displayName="Methicillin resistant Staphylococcus aureus (MRSA) screening culture" /> <statusCode code="completed" /> <component> < observation moodCode="EVN" classCode="OBS"> <templateId root= "2.16.840.1.809245.10..22.4.2" /> <id nullFlavor="NA" /> < code codeSystem="local" code="90783-4" displayName="Methicillin resistant Staphylococcus aureus (MRSA) screening culture" /> <statusCode code= "completed" /> <effectiveTime value="184355146056" /> <value unit="" xsi:type="PQ" value="NEG" /> <referenceRange> < observationRange> <text>NRG</text> </observationRange> </referenceRange> </observation> </component> </ organizer> </entry> <entry> <organizer moodCode="EVN" classCode="BATTERY"> <templateId root="216.840.1.474947.10..22.4.1" /> <id nullFlavor= "NA" /> <code codeSystem="local" code="64477-1" displayName="Urine drug screening test" /> <statusCode code="completed" /> <component> <observation moodCode="EVN" classCode="OBS"> <templateId root= "216.840.1.144978.10..22.4.2" /> <id nullFlavor="NA" /> < code codeSystem="local" code="09173-4" displayName="Urine phencyclidine detection by screening method" /> <statusCode code="completed" /> <effectiveTime value="" /> <value unit="" xsi:type="PQ " value="NEGATIVE" /> <referenceRange> <observationRange> <text>NEGATIVE</text> </observationRange> </ referenceRange> </observation> </component> <component> <observation moodCode="EVN" classCode="OBS"> <templateId root= "216.840.1.052359.10...4.2" /> <id nullFlavor="NA" /> < code codeSystem="local" code="31392-4" displayName="Urine benzodiazepines detection by screening method" /> <statusCode code="completed" /> <effectiveTime value="" /> <value unit="" xsi:type="PQ " value="NEGATIVE" /> <referenceRange> <observationRange> <text>NEGATIVE</text> </observationRange> </ referenceRange> </observation> </component> <component> <observation moodCode="EVN" classCode="OBS"> <templateId root= "840.1.076926.10..22.4.2" /> <id nullFlavor="NA" /> < code codeSystem="local" code="3397-7" displayName="Urine cocaine detection" /> <statusCode code="completed" /> <effectiveTime value= "450515065969" /> <value unit="" xsi:type="PQ" value="NEGATIVE" /> <referenceRange> <observationRange> <text>NEGATIVE </text> </observationRange> </referenceRange> </ observation> </component> <component> <observation moodCode= "EVN" classCode="OBS"> <templateId root="2.16.840.1.060402.10..4.2 " /> <id nullFlavor="NA" /> <code codeSystem="local" code= "48016-2" displayName="Urine amphetamines detection by screening method" /> <statusCode code="completed" /> <effectiveTime value= "" /> <value unit="" xsi:type="PQ" value="NEGATIVE" /> <referenceRange> <observationRange> <text>NEGATIVE </text> </observationRange> </referenceRange> </ observation> </component> <component> <observation moodCode= "EVN" classCode="OBS"> <templateId root="2.16.840.1.152280.10.22.4.2 " /> <id nullFlavor="NA" /> <code codeSystem="local" code= "01209-3" displayName="Urine methamphetamine detection by screening method" /> <statusCode code="completed" /> <effectiveTime value= "400840723687" /> <value unit="" xsi:type="PQ" value="NEGATIVE" /> <referenceRange> <observationRange> <text>NEGATIVE </text> </observationRange> </referenceRange> </ observation> </component> <component> <observation moodCode= "EVN" classCode="OBS"> <templateId root="2.16.840.1.471565.10..22.4.2 " /> <id nullFlavor="NA" /> <code codeSystem="local" code= "10445-2" displayName="Urine cannabinoids detection by screening method" /> <statusCode code="completed" /> <effectiveTime value= "" /> <value unit="" xsi:type="PQ" value="NEGATIVE" /> <referenceRange> <observationRange> <text>NEGATIVE </text> </observationRange> </referenceRange> </ observation> </component> <component> <observation moodCode= "EVN" classCode="OBS"> <templateId root="2.16.840.1.588101.10..22.4.2 " /> <id nullFlavor="NA" /> <code codeSystem="local" code= "18753-4" displayName="Urine opiates detection by screening method" /> <statusCode code="completed" /> <effectiveTime value="" /> <value unit="" xsi:type="PQ" value="NEGATIVE" /> < referenceRange> <observationRange> <text>NEGATIVE</text > </observationRange> </referenceRange> </observation > </component> <component> <observation moodCode="EVN" classCode="OBS"> <templateId root="216.840.1.001569.10.20.22.4.2" /> <id nullFlavor="NA" /> <code codeSystem="local" code="3377-9" displayName="Urine barbiturates detection" /> <statusCode code= "completed" /> <effectiveTime value="" /> <value unit="" xsi:type="PQ" value="NEGATIVE" /> <referenceRange> < observationRange> <text>NEGATIVE</text> </ observationRange> </referenceRange> </observation> </ component> <component> <observation moodCode="EVN" classCode="OBS"> <templateId root="216.840.1.597655.10..22.4.2" /> <id nullFlavor="NA" /> <code codeSystem="local" code="" displayName= "Screening urine tricyclic antidepressants detection" /> <statusCode code="completed" /> <effectiveTime value="" /> < value unit="" xsi:type="PQ" value="NEGATIVE" /> <referenceRange> <observationRange> <text>NEGATIVE</text> </ observationRange> </referenceRange> </observation> </ component> <component> <observation moodCode="EVN" classCode="OBS"> <templateId root="11.30.840.1.816172.10.4.2" /> <id nullFlavor="NA" /> <code codeSystem="local" code="50293-6" displayName= "Urine methadone detection by screening method" /> <statusCode code= "completed" /> <effectiveTime value="" /> <value unit="" xsi:type="PQ" value="NEGATIVE" /> <referenceRange> < observationRange> <text>NEGATIVE</text> </ observationRange> </referenceRange> </observation> </ component> <component> <observation moodCode="EVN" classCode="OBS"> <templateId root="216.840.1.722555.10.22.4.2" /> <id nullFlavor="NA" /> <code codeSystem="local" code="93349-5" displayName= "Urine oxycodone detection" /> <statusCode code="completed" /> <effectiveTime value="681275491614" /> <value unit="" xsi:type="PQ" value="NEGATIVE" /> <referenceRange> <observationRange> <text>NEGATIVE</text> </observationRange> </ referenceRange> </observation> </component> <component> <observation moodCode="EVN" classCode="OBS"> <templateId root= "11.30.840.1.606654.10.20.22.4.2" /> <id nullFlavor="NA" /> < code codeSystem="local" code="44469-2" displayName="Urine propoxyphene detection " /> <statusCode code="completed" /> <effectiveTime value= "" /> <value unit="" xsi:type="PQ" value="NEGATIVE" /> <referenceRange> <observationRange> <text>NEGATIVE </text> </observationRange> </referenceRange> </ observation> </component> </organizer> </entry> <entry> <organizer moodCode="EVN" classCode="BATTERY"> <templateId root= "11.30.840.1.064023.10..22.4.1" /> <id nullFlavor="NA" /> <code codeSystem="local" code="12253-1" displayName="Complete urinalysis with reflex to culture" /> <statusCode code="completed" /> <component> < observation moodCode="EVN" classCode="OBS"> <templateId root= "11.30.840.1.987748.10.20.22.4.2" /> <id nullFlavor="NA" /> < code codeSystem="local" code="5778-6" displayName="Urine color determination" / > <statusCode code="completed" /> <effectiveTime value= "" /> <value unit="" xsi:type="PQ" value="YELLOW" /> <referenceRange> <observationRange> <text>NRG</text > </observationRange> </referenceRange> </observation > </component> <component> <observation moodCode="EVN" classCode="OBS"> <templateId root="2.16.840.1.849051.10..22.4.2" /> <id nullFlavor="NA" /> <code codeSystem="local" code="58861-5 " displayName="Urine clarity determination" /> <statusCode code= "completed" /> <effectiveTime value="" /> <value unit="" xsi:type="PQ" value="CLEAR" /> <referenceRange> < observationRange> <text>NRG</text> </observationRange> </referenceRange> </observation> </component> < component> <observation moodCode="EVN" classCode="OBS"> < templateId root="216.840.1.825523.10.22.4.2" /> <id nullFlavor="NA " /> <code codeSystem="local" code="5803-2" displayName="Urine pH measurement by test strip" /> <statusCode code="completed" /> <effectiveTime value="" /> <value unit="" xsi:type="PQ" value="8" /> <referenceRange> <observationRange> <text>5-9</text> </observationRange> </referenceRange> </observation> </component> <component> <observation moodCode="EVN" classCode="OBS"> <templateId root= "216.840.1.828046.10.20.22.4.2" /> <id nullFlavor="NA" /> < code codeSystem="local" code="5811-5" displayName="Specific gravity of urine by test strip" /> <statusCode code="completed" /> <effectiveTime value="" /> <value unit="" xsi:type="PQ" value="1.015" /> <interpretationCode codeSystem="local" code="" /> < referenceRange> <observationRange> <text>1.016-1.022</ text> </observationRange> </referenceRange> </ observation> </component> <component> <observation moodCode= "EVN" classCode="OBS"> <templateId root="11.30.840.1.867520.1022.4.2 " /> <id nullFlavor="NA" /> <code codeSystem="local" code= "49485-7" displayName="Urine protein assay by test strip, semi-quantitative" /> <statusCode code="completed" /> <effectiveTime value= "" /> <value unit="" xsi:type="PQ" value="NEGATIVE" /> <referenceRange> <observationRange> <text>NEGATIVE </text> </observationRange> </referenceRange> </ observation> </component> <component> <observation moodCode= "EVN" classCode="OBS"> <templateId root="840.1.217212.1022.4.2 " /> <id nullFlavor="NA" /> <code codeSystem="local" code= "80003-7" displayName="Urine glucose detection by automated test strip" /> <statusCode code="completed" /> <effectiveTime value=" " /> <value unit="" xsi:type="PQ" value="NEGATIVE" /> < referenceRange> <observationRange> <text>NEGATIVE</text > </observationRange> </referenceRange> </observation > </component> <component> <observation moodCode="EVN" classCode="OBS"> <templateId root="11.30.840.1.622455.102022.4.2" /> <id nullFlavor="NA" /> <code codeSystem="local" code="07137-4 " displayName="Erythrocytes detection in urine sediment by light microscopy" /> <statusCode code="completed" /> <effectiveTime value= "" /> <value unit="" xsi:type="PQ" value="NEGATIVE" /> <referenceRange> <observationRange> <text>NEGATIVE </text> </observationRange> </referenceRange> </ observation> </component> <component> <observation moodCode= "EVN" classCode="OBS"> <templateId root="216.840.1.665646.10..22.4.2 " /> <id nullFlavor="NA" /> <code codeSystem="local" code= "78007-5" displayName="Urine ketones detection by automated test strip" /> <statusCode code="completed" /> <effectiveTime value=" " /> <value unit="" xsi:type="PQ" value="NEGATIVE" /> < referenceRange> <observationRange> <text>NEGATIVE</text > </observationRange> </referenceRange> </observation > </component> <component> <observation moodCode="EVN" classCode="OBS"> <templateId root="16.840.1.150130.10..22.4.2" /> <id nullFlavor="NA" /> <code codeSystem="local" code="5802-4" displayName="Urine nitrite detection by test strip" /> <statusCode code ="completed" /> <effectiveTime value="" /> <value unit="" xsi:type="PQ" value="NEGATIVE" /> <referenceRange> < observationRange> <text>NEGATIVE</text> </ observationRange> </referenceRange> </observation> </ component> <component> <observation moodCode="EVN" classCode="OBS"> <templateId root="16.840.1.546497.10.22.4.2" /> <id nullFlavor="NA" /> <code codeSystem="local" code="5770-3" displayName= "Urine total bilirubin detection by test strip" /> <statusCode code= "completed" /> <effectiveTime value="" /> <value unit="" xsi:type="PQ" value="NEGATIVE" /> <referenceRange> < observationRange> <text>NEGATIVE</text> </ observationRange> </referenceRange> </observation> </ component> <component> <observation moodCode="EVN" classCode="OBS"> <templateId root="2.16.840.1.876322.10..4.2" /> <id nullFlavor="NA" /> <code codeSystem="local" code="83043-9" displayName= "Urine urobilinogen measurement by automated test strip (mass/volume)" /> <statusCode code="completed" /> <effectiveTime value=" " /> <value unit="" xsi:type="PQ" value="NORMAL" /> < referenceRange> <observationRange> <text>NORMAL</text> </observationRange> </referenceRange> </observation> </component> <component> <observation moodCode="EVN" classCode ="OBS"> <templateId root="2.16.840.1.800747.10..4.2" /> < id nullFlavor="NA" /> <code codeSystem="local" code="5799-2" displayName="Urine leukocyte esterase detection by dipstick" /> < statusCode code="completed" /> <effectiveTime value="" /> <value unit="" xsi:type="PQ" value="1+" /> < interpretationCode codeSystem="local" code="*" /> <referenceRange> <observationRange> <text>NEGATIVE</text> </ observationRange> </referenceRange> </observation> </ component> <component> <observation moodCode="EVN" classCode="OBS"> <templateId root="216.840.1.656254.10.2022.4.2" /> <id nullFlavor="NA" /> <code codeSystem="local" code="82359-9" displayName= "Automated urine sediment erythrocyte count by microscopy (number/high power field)" /> <statusCode code="completed" /> <effectiveTime value="209115525850" /> <value unit="" xsi:type="PQ" value="NONE" /> <referenceRange> <observationRange> <text>NRG</ text> </observationRange> </referenceRange> </ observation> </component> <component> <observation moodCode= "EVN" classCode="OBS"> <templateId root="216.840.1.129984.10..4.2 " /> <id nullFlavor="NA" /> <code codeSystem="local" code= "5821-4" displayName="Automated urine sediment leukocyte count by microscopy ( number/high power field)" /> <statusCode code="completed" /> < effectiveTime value="165757635654" /> <value unit="[HPF]" xsi:type="PQ " value="" /> <referenceRange> <observationRange> <text>NRG</text> </observationRange> </referenceRange> </observation> </component> <component> <observation moodCode="EVN" classCode="OBS"> <templateId root= "16.840.1.786255.10.20.22.4.2" /> <id nullFlavor="NA" /> < code codeSystem="local" code="99077-0" displayName="Bacteria detection in urine sediment by light microscopy" /> <statusCode code="completed" /> <effectiveTime value="446143298359" /> <value unit="" xsi:type="PQ " value="TRACE" /> <referenceRange> <observationRange> <text>NRG</text> </observationRange> </ referenceRange> </observation> </component> <component> <observation moodCode="EVN" classCode="OBS"> <templateId root= "216.840.1.301372.1022.4.2" /> <id nullFlavor="NA" /> < code codeSystem="local" code="89988-3" displayName="Squamous epithelial cells detection in urine sediment by light microscopy" /> <statusCode code= "completed" /> <effectiveTime value="360978165851" /> <value unit="" xsi:type="PQ" value="10-" /> <interpretationCode codeSystem= "local" code="*" /> <referenceRange> <observationRange> <text>NRG</text> </observationRange> </ referenceRange> </observation> </component> <component> <observation moodCode="EVN" classCode="OBS"> <templateId root= "11.30.840.1.361114.10.4.2" /> <id nullFlavor="NA" /> < code codeSystem="local" code="23174-6" displayName="Crystals detection in urine sediment by light microscopy" /> <statusCode code="completed" /> <effectiveTime value="960016745376" /> <value unit="" xsi:type="PQ " value="NONE" /> <referenceRange> <observationRange> <text>NRG</text> </observationRange> </ referenceRange> </observation> </component> <component> <observation moodCode="EVN" classCode="OBS"> <templateId root= "216.840.1.475276.08.03.22.4.2" /> <id nullFlavor="NA" /> < code codeSystem="local" code="57425-9" displayName="Casts detection in urine sediment by light microscopy" /> <statusCode code="completed" /> <effectiveTime value="" /> <value unit="" xsi:type="PQ " value="NONE" /> <referenceRange> <observationRange> <text>NRG</text> </observationRange> </ referenceRange> </observation> </component> <component> <observation moodCode="EVN" classCode="OBS"> <templateId root= "2.16.840.1.433454.08.03.22.4.2" /> <id nullFlavor="NA" /> < code codeSystem="local" code="8247-9" displayName="Mucus detection in urine sediment by light microscopy" /> <statusCode code="completed" /> <effectiveTime value="" /> <value unit="" xsi:type="PQ " value="NEGATIVE" /> <referenceRange> <observationRange> <text>NRG</text> </observationRange> </ referenceRange> </observation> </component> <component> <observation moodCode="EVN" classCode="OBS"> <templateId root= "2.16.840.1.320932.08.03.22.4.2" /> <id nullFlavor="NA" /> < code codeSystem="local" code="41083-6" displayName="Complete urinalysis with reflex to culture" /> <statusCode code="completed" /> < effectiveTime value="" /> <value unit="" xsi:type="PQ" value="NO" /> <referenceRange> <observationRange> <text>NRG</text> </observationRange> </referenceRange> </observation> </component> <component> <observation moodCode="EVN" classCode="OBS"> <templateId root= "2.16.840.1.977571.10.20.22.4.2" /> <id nullFlavor="NA" /> < code codeSystem="local" code="80662-3" displayName="Renal epithelial cells detection in urine sediment by light microscopy" /> <statusCode code= "completed" /> <effectiveTime value="500671010942" /> <value unit="" xsi:type="PQ" value="NONE" /> <referenceRange> < observationRange> <text>NRG</text> </observationRange> </referenceRange> </observation> </component> </ organizer> </entry> <entry> <organizer moodCode="EVN" classCode="BATTERY"> <templateId root="2.16.840.1.987062.10.20.22.4.1" /> <id nullFlavor= "NA" /> <code codeSystem="local" code="52384-4" displayName="Complete blood count (CBC) with automated white blood cell (WBC) differential" /> < statusCode code="completed" /> <component> <observation moodCode= "EVN" classCode="OBS"> <templateId root="2.16.840.1.928610.10.20.22.4.2 " /> <id nullFlavor="NA" /> <code codeSystem="local" code= "6690-2" displayName="Blood leukocytes automated count (number/volume)" /> <statusCode code="completed" /> <effectiveTime value="091802955749 " /> <value unit="10*3/uL" xsi:type="PQ" value="8.2" /> < referenceRange> <observationRange> <text>4.3-11.0</text > </observationRange> </referenceRange> </observation > </component> <component> <observation moodCode="EVN" classCode="OBS"> <templateId root="2.16.840.1.300140.10.20.22.4.2" /> <id nullFlavor="NA" /> <code codeSystem="local" code="789-8" displayName="Blood erythrocytes automated count (number/volume)" /> < statusCode code="completed" /> <effectiveTime value="994283294990" /> <value unit="10*6/uL" xsi:type="PQ" value="4.30" /> < interpretationCode codeSystem="local" code="" /> <referenceRange> <observationRange> <text>4.35-5.85</text> </ observationRange> </referenceRange> </observation> </ component> <component> <observation moodCode="EVN" classCode="OBS"> <templateId root="216.840.1.572573.10.22.4.2" /> <id nullFlavor="NA" /> <code codeSystem="local" code="12047-2" displayName= "Venous blood hemoglobin measurement (mass/volume)" /> <statusCode code ="completed" /> <effectiveTime value="" /> <value unit="g/dL" xsi:type="PQ" value="13.9" /> <referenceRange> < observationRange> <text>11.5-16.0</text> </ observationRange> </referenceRange> </observation> </ component> <component> <observation moodCode="EVN" classCode="OBS"> <templateId root="2.16.840.1.871237.10.20.22.4.2" /> <id nullFlavor="NA" /> <code codeSystem="local" code="85357-0" displayName= "Blood hematocrit (volume fraction)" /> <statusCode code="completed" / > <effectiveTime value="" /> <value unit="%" xsi:type="PQ" value="40" /> <referenceRange> < observationRange> <text>35-52</text> </observationRange > </referenceRange> </observation> </component> < component> <observation moodCode="EVN" classCode="OBS"> < templateId root="216.840.1.819541.10..22.4.2" /> <id nullFlavor="NA " /> <code codeSystem="local" code="787-2" displayName="Automated erythrocyte mean corpuscular volume" /> <statusCode code="completed" / > <effectiveTime value="" /> <value unit="[foz_us] " xsi:type="PQ" value="93" /> <referenceRange> < observationRange> <text>80-99</text> </observationRange > </referenceRange> </observation> </component> < component> <observation moodCode="EVN" classCode="OBS"> < templateId root="216.840.1.669117.10...4.2" /> <id nullFlavor="NA " /> <code codeSystem="local" code="785-6" displayName="Automated erythrocyte mean corpuscular hemoglobin (mass per erythrocyte)" /> < statusCode code="completed" /> <effectiveTime value="" /> <value unit="pg" xsi:type="PQ" value="32" /> <referenceRange> <observationRange> <text>25-34</text> </ observationRange> </referenceRange> </observation> </ component> <component> <observation moodCode="EVN" classCode="OBS"> <templateId root="2.16.840.1.466002.10.20.22.4.2" /> <id nullFlavor="NA" /> <code codeSystem="local" code="786-4" displayName= "Automated erythrocyte mean corpuscular hemoglobin concentration measurement ( mass/volume)" /> <statusCode code="completed" /> < effectiveTime value="" /> <value unit="g/dL" xsi:type="PQ" value="35" /> <referenceRange> <observationRange> <text>32-36</text> </observationRange> </referenceRange > </observation> </component> <component> <observation moodCode="EVN" classCode="OBS"> <templateId root= "2.16.840.1.995728.10..22.4.2" /> <id nullFlavor="NA" /> < code codeSystem="local" code="788-0" displayName="Automated erythrocyte distribution width ratio" /> <statusCode code="completed" /> < effectiveTime value="" /> <value unit="%" xsi:type="PQ " value="12.7" /> <referenceRange> <observationRange> <text>10.0-14.5</text> </observationRange> </ referenceRange> </observation> </component> <component> <observation moodCode="EVN" classCode="OBS"> <templateId root= "2.16.840.1.974031.10..22.4.2" /> <id nullFlavor="NA" /> < code codeSystem="local" code="777-3" displayName="Automated blood platelet count (count/volume)" /> <statusCode code="completed" /> < effectiveTime value="718097751852" /> <value unit="10*3/uL" xsi:type= "PQ" value="215" /> <referenceRange> <observationRange> <text>130-400</text> </observationRange> </ referenceRange> </observation> </component> <component> <observation moodCode="EVN" classCode="OBS"> <templateId root= "216.840.1.349160.10.2022.4.2" /> <id nullFlavor="NA" /> < code codeSystem="local" code="67872-6" displayName="Automated blood platelet mean volume measurement" /> <statusCode code="completed" /> < effectiveTime value="067368002309" /> <value unit="[foz_us]" xsi:type= "PQ" value="9.9" /> <referenceRange> <observationRange> <text>7.4-10.4</text> </observationRange> </ referenceRange> </observation> </component> <component> <observation moodCode="EVN" classCode="OBS"> <templateId root= "216.840.1.529057.10.4.2" /> <id nullFlavor="NA" /> < code codeSystem="local" code="770-8" displayName="Automated blood neutrophils/ 100 leukocytes" /> <statusCode code="completed" /> < effectiveTime value="073269788123" /> <value unit="%" xsi:type="PQ " value="78" /> <interpretationCode codeSystem="local" code="" /> <referenceRange> <observationRange> <text>42-75</ text> </observationRange> </referenceRange> </ observation> </component> <component> <observation moodCode= "EVN" classCode="OBS"> <templateId root="216.840.1.887875.10.2022.4.2 " /> <id nullFlavor="NA" /> <code codeSystem="local" code="736 -9" displayName="Automated blood lymphocytes/100 leukocytes" /> < statusCode code="completed" /> <effectiveTime value="897523224905" /> <value unit="%" xsi:type="PQ" value="11" /> < interpretationCode codeSystem="local" code="" /> <referenceRange> <observationRange> <text>12-44</text> </ observationRange> </referenceRange> </observation> </ component> <component> <observation moodCode="EVN" classCode="OBS"> <templateId root="2.16.840.1.376103.10.20.22.4.2" /> <id nullFlavor="NA" /> <code codeSystem="local" code="66447-2" displayName= "Blood monocytes/100 leukocytes" /> <statusCode code="completed" /> <effectiveTime value="323054889562" /> <value unit="%" xsi: type="PQ" value="5" /> <referenceRange> <observationRange> <text>0-12</text> </observationRange> </ referenceRange> </observation> </component> <component> <observation moodCode="EVN" classCode="OBS"> <templateId root= "216.840.1.799224.10.20.22.4.2" /> <id nullFlavor="NA" /> < code codeSystem="local" code="713-8" displayName="Automated blood eosinophils/ 100 leukocytes" /> <statusCode code="completed" /> < effectiveTime value="633455848534" /> <value unit="%" xsi:type="PQ " value="6" /> <referenceRange> <observationRange> <text>0-10</text> </observationRange> </referenceRange > </observation> </component> <component> <observation moodCode="EVN" classCode="OBS"> <templateId root= "11.30.840.1.795061.10.20.22.4.2" /> <id nullFlavor="NA" /> < code codeSystem="local" code="706-2" displayName="Automated blood basophils/100 leukocytes" /> <statusCode code="completed" /> <effectiveTime value="074186319223" /> <value unit="%" xsi:type="PQ" value="0" /> <referenceRange> <observationRange> <text>0-10 </text> </observationRange> </referenceRange> </ observation> </component> <component> <observation moodCode= "EVN" classCode="OBS"> <templateId root="16.840.1.192290.10..22.4.2 " /> <id nullFlavor="NA" /> <code codeSystem="local" code="751 -8" displayName="Blood neutrophils automated count (number/volume)" /> <statusCode code="completed" /> <effectiveTime value="805794985430" /> <value unit="10*3" xsi:type="PQ" value="6.4" /> < referenceRange> <observationRange> <text>1.8-7.8</text> </observationRange> </referenceRange> </observation > </component> <component> <observation moodCode="EVN" classCode="OBS"> <templateId root="11.30.840.1.454372.10.20.22.4.2" /> <id nullFlavor="NA" /> <code codeSystem="local" code="731-0" displayName="Blood lymphocytes automated count (number/volume)" /> < statusCode code="completed" /> <effectiveTime value="659616990099" /> <value unit="10*3" xsi:type="PQ" value="0.9" /> < interpretationCode codeSystem="local" code="" /> <referenceRange> <observationRange> <text>1.0-4.0</text> </ observationRange> </referenceRange> </observation> </ component> <component> <observation moodCode="EVN" classCode="OBS"> <templateId root="216.840.1.320091.10..22.4.2" /> <id nullFlavor="NA" /> <code codeSystem="local" code="742-7" displayName= "Blood monocytes automated count (number/volume)" /> <statusCode code= "completed" /> <effectiveTime value="710815256821" /> <value unit="10*3" xsi:type="PQ" value="0.4" /> <referenceRange> < observationRange> <text>0.0-1.0</text> </ observationRange> </referenceRange> </observation> </ component> <component> <observation moodCode="EVN" classCode="OBS"> <templateId root="16.840.1.016997.10..4.2" /> <id nullFlavor="NA" /> <code codeSystem="local" code="711-2" displayName= "Automated eosinophil count" /> <statusCode code="completed" /> <effectiveTime value="650960744928" /> <value unit="10*3/uL" xsi: type="PQ" value="0.5" /> <interpretationCode codeSystem="local" code="* *" /> <referenceRange> <observationRange> <text >0.0-0.3</text> </observationRange> </referenceRange> </observation> </component> <component> <observation moodCode ="EVN" classCode="OBS"> <templateId root= "216.840.1.403238.10.22.4.2" /> <id nullFlavor="NA" /> < code codeSystem="local" code="704-7" displayName="Automated blood basophil count (count/volume)" /> <statusCode code="completed" /> < effectiveTime value="544140724457" /> <value unit="10*3/uL" xsi:type= "PQ" value="0.0" /> <referenceRange> <observationRange> <text>0.0-0.1</text> </observationRange> </ referenceRange> </observation> </component> </organizer> </entry > <entry> <organizer moodCode="EVN" classCode="BATTERY"> <templateId root="2.16.840.1.594599.10.20.22.4.1" /> <id nullFlavor="NA" /> <code codeSystem="local" code="65720-4" displayName="Comprehensive metabolic panel" / > <statusCode code="completed" /> <component> <observation moodCode="EVN" classCode="OBS"> <templateId root= "216.840.1.909409.10.20.22.4.2" /> <id nullFlavor="NA" /> < code codeSystem="local" code="2951-2" displayName="Serum or plasma sodium measurement (moles/volume)" /> <statusCode code="completed" /> <effectiveTime value="041922566742" /> <value unit="mmol/L" xsi:type= "PQ" value="135" /> <referenceRange> <observationRange> <text>135-145</text> </observationRange> </ referenceRange> </observation> </component> <component> <observation moodCode="EVN" classCode="OBS"> <templateId root= "216.840.1.924733.10.20.22.4.2" /> <id nullFlavor="NA" /> < code codeSystem="local" code="2823-3" displayName="Serum or plasma potassium measurement (moles/volume)" /> <statusCode code="completed" /> <effectiveTime value="873536809874" /> <value unit="mmol/L" xsi:type= "PQ" value="3.7" /> <referenceRange> <observationRange> <text>3.6-5.0</text> </observationRange> </ referenceRange> </observation> </component> <component> <observation moodCode="EVN" classCode="OBS"> <templateId root= "2.16.840.1.848639.10..22.4.2" /> <id nullFlavor="NA" /> < code codeSystem="local" code="" displayName="Serum or plasma chloride measurement (moles/volume)" /> <statusCode code="completed" /> <effectiveTime value="096395373370" /> <value unit="mmol/L" xsi:type= "PQ" value="107" /> <referenceRange> <observationRange> <text>98-107</text> </observationRange> </ referenceRange> </observation> </component> <component> <observation moodCode="EVN" classCode="OBS"> <templateId root= "2.16.840.1.785501.10..22.4.2" /> <id nullFlavor="NA" /> < code codeSystem="local" code="2028-06" displayName="Carbon dioxide" /> < statusCode code="completed" /> <effectiveTime value="609136450350" /> <value unit="mmol/L" xsi:type="PQ" value="23" /> < referenceRange> <observationRange> <text>21-32</text> </observationRange> </referenceRange> </observation> </component> <component> <observation moodCode="EVN" classCode= "OBS"> <templateId root="2.16.840.1.288802.10.20.22.4.2" /> < id nullFlavor="NA" /> <code codeSystem="local" code="44793-0" displayName="Serum or plasma anion gap determination (moles/volume)" /> <statusCode code="completed" /> <effectiveTime value="402318771816" / > <value unit="mmol/L" xsi:type="PQ" value="5" /> < referenceRange> <observationRange> <text>5-14</text> </observationRange> </referenceRange> </observation> </component> <component> <observation moodCode="EVN" classCode= "OBS"> <templateId root="2.16.840.1.546701.10...4.2" /> < id nullFlavor="NA" /> <code codeSystem="local" code="3094-0" displayName="Serum or plasma urea nitrogen measurement (mass/volume)" /> <statusCode code="completed" /> <effectiveTime value="977244898583" /> <value unit="mg/dL" xsi:type="PQ" value="5" /> < interpretationCode codeSystem="local" code="" /> <referenceRange> <observationRange> <text>7-18</text> </ observationRange> </referenceRange> </observation> </ component> <component> <observation moodCode="EVN" classCode="OBS"> <templateId root="2.16.840.1.527279.10..22.4.2" /> <id nullFlavor="NA" /> <code codeSystem="local" code="2160-0" displayName= "Serum or plasma creatinine measurement (mass/volume)" /> <statusCode code="completed" /> <effectiveTime value="591536486015" /> < value unit="mg/dL" xsi:type="PQ" value="0.61" /> <referenceRange> <observationRange> <text>0.60-1.30</text> </ observationRange> </referenceRange> </observation> </ component> <component> <observation moodCode="EVN" classCode="OBS"> <templateId root="2.16.840.1.401335.10..4.2" /> <id nullFlavor="NA" /> <code codeSystem="local" code="3097-3" displayName= "Serum or plasma urea nitrogen/creatinine mass ratio" /> <statusCode code="completed" /> <effectiveTime value="643215579346" /> < value unit="" xsi:type="PQ" value="8" /> <referenceRange> < observationRange> <text>NRG</text> </observationRange> </referenceRange> </observation> </component> < component> <observation moodCode="EVN" classCode="OBS"> < templateId root="2.16.840.1.357651.10..4.2" /> <id nullFlavor="NA " /> <code codeSystem="local" code="90515-0" displayName="Serum or plasma creatinine measurement with calculation of estimated glomerular filtration rate" /> <statusCode code="completed" /> < effectiveTime value="251536653993" /> <value unit="" xsi:type="PQ" value=">" /> <referenceRange> <observationRange> <text>NRG</text> </observationRange> </referenceRange > </observation> </component> <component> <observation moodCode="EVN" classCode="OBS"> <templateId root= "2.16.840.1.297510.10...4.2" /> <id nullFlavor="NA" /> < code codeSystem="local" code="2345-7" displayName="Serum or plasma glucose measurement (mass/volume)" /> <statusCode code="completed" /> <effectiveTime value="" /> <value unit="mg/dL" xsi:type="PQ " value="88" /> <referenceRange> <observationRange> <text>70-105</text> </observationRange> </ referenceRange> </observation> </component> <component> <observation moodCode="EVN" classCode="OBS"> <templateId root= "2.16.840.1.200952.10..22.4.2" /> <id nullFlavor="NA" /> < code codeSystem="local" code="65329-2" displayName="Serum or plasma calcium measurement (mass/volume)" /> <statusCode code="completed" /> <effectiveTime value="" /> <value unit="mg/dL" xsi:type="PQ " value="8.5" /> <referenceRange> <observationRange> <text>8.5-10.1</text> </observationRange> </ referenceRange> </observation> </component> <component> <observation moodCode="EVN" classCode="OBS"> <templateId root= "2.16.840.1.377296.10..22.4.2" /> <id nullFlavor="NA" /> < code codeSystem="local" code="1974-11" displayName="Serum or plasma total bilirubin measurement (mass/volume)" /> <statusCode code="completed" / > <effectiveTime value="739758159185" /> <value unit="mg/dL" xsi:type="PQ" value="0.5" /> <referenceRange> < observationRange> <text>0.1-1.0</text> </ observationRange> </referenceRange> </observation> </ component> <component> <observation moodCode="EVN" classCode="OBS"> <templateId root="2.16.840.1.954122.10.20.22.4.2" /> <id nullFlavor="NA" /> <code codeSystem="local" code="6768-" displayName= "Serum or plasma alkaline phosphatase measurement (enzymatic activity/volume)" / > <statusCode code="completed" /> <effectiveTime value= "116974018434" /> <value unit="U/L" xsi:type="PQ" value="48" /> <referenceRange> <observationRange> <text>40-136</ text> </observationRange> </referenceRange> </ observation> </component> <component> <observation moodCode= "EVN" classCode="OBS"> <templateId root="2.16.840.1.795710.10..22.4.2 " /> <id nullFlavor="NA" /> <code codeSystem="local" code= "1920-05" displayName="Serum or plasma aspartate aminotransferase measurement ( enzymatic activity/volume)" /> <statusCode code="completed" /> <effectiveTime value="083818354674" /> <value unit="U/L" xsi:type="PQ " value="14" /> <referenceRange> <observationRange> <text>5-34</text> </observationRange> </referenceRange > </observation> </component> <component> <observation moodCode="EVN" classCode="OBS"> <templateId root= "2.16.840.1.483710.10.20.22.4.2" /> <id nullFlavor="NA" /> < code codeSystem="local" code="17411-20" displayName="Serum or plasma alanine aminotransferase measurement (enzymatic activity/volume)" /> < statusCode code="completed" /> <effectiveTime value="227158592650" /> <value unit="U/L" xsi:type="PQ" value="10" /> <referenceRange > <observationRange> <text>0-55</text> </ observationRange> </referenceRange> </observation> </ component> <component> <observation moodCode="EVN" classCode="OBS"> <templateId root="2.16.840.1.778197.10.20.22.4.2" /> <id nullFlavor="NA" /> <code codeSystem="local" code="2885-" displayName= "Serum or plasma protein measurement (mass/volume)" /> <statusCode code ="completed" /> <effectiveTime value="570546372823" /> <value unit="g/dL" xsi:type="PQ" value="6.5" /> <referenceRange> < observationRange> <text>6.4-8.2</text> </ observationRange> </referenceRange> </observation> </ component> <component> <observation moodCode="EVN" classCode="OBS"> <templateId root="2.16.840.1.831890.10..22.4.2" /> <id nullFlavor="NA" /> <code codeSystem="local" code="1751-7" displayName= "Serum or plasma albumin measurement (mass/volume)" /> <statusCode code ="completed" /> <effectiveTime value="486078306007" /> <value unit="g/dL" xsi:type="PQ" value="4.0" /> <referenceRange> < observationRange> <text>3.2-4.5</text> </ observationRange> </referenceRange> </observation> </ component> <component> <observation moodCode="EVN" classCode="OBS"> <templateId root="216.840.1.038553.10.20.22.4.2" /> <id nullFlavor="NA" /> <code codeSystem="local" code="CALCIUMCORR" displayName="CALCIUM CORRECTED" /> <statusCode code="completed" /> <effectiveTime value="700245645742" /> <value unit="mg/dL" xsi: type="PQ" value="8.5" /> <referenceRange> <observationRange > <text>8.5-10.1</text> </observationRange> </ referenceRange> </observation> </component> </organizer> </entry > <entry> <organizer moodCode="EVN" classCode="BATTERY"> <templateId root="2.16.840.1.970504.10.20.22.4.1" /> <id nullFlavor="NA" /> <code codeSystem="local" code="84963-0" displayName="Serum or plasma choriogonadotropin measurement (units/volume)" /> <statusCode code= "completed" /> <component> <observation moodCode="EVN" classCode= "OBS"> <templateId root="2.16.840.1.869835.10.20.22.4.2" /> < id nullFlavor="NA" /> <code codeSystem="local" code="75437-6" displayName="Serum or plasma choriogonadotropin measurement (units/volume)" /> <statusCode code="completed" /> <effectiveTime value= "922883600905" /> <value unit="m[iU]/mL" xsi:type="PQ" value="68763" / > <interpretationCode codeSystem="local" code="" /> < referenceRange> <observationRange> <text><5</text> </observationRange> </referenceRange> </observation> </component> </organizer> </entry> <entry> <organizer moodCode="EVN " classCode="BATTERY"> <templateId root="2.16.840.1.988650.10.20.22.4.1" / > <id nullFlavor="NA" /> <code codeSystem="local" code="08531-4" displayName="Complete blood count (CBC) with automated white blood cell (WBC) differential" /> <statusCode code="completed" /> <component> < observation moodCode="EVN" classCode="OBS"> <templateId root= "2.16.840.1.480696.10.20.22.4.2" /> <id nullFlavor="NA" /> < code codeSystem="local" code="6690-2" displayName="Blood leukocytes automated count (number/volume)" /> <statusCode code="completed" /> < effectiveTime value="" /> <value unit="10*3/uL" xsi:type= "PQ" value="9.2" /> <referenceRange> <observationRange> <text>4.3-11.0</text> </observationRange> </ referenceRange> </observation> </component> <component> <observation moodCode="EVN" classCode="OBS"> <templateId root= "2.16.840.1.579552.10.20.22.4.2" /> <id nullFlavor="NA" /> < code codeSystem="local" code="789-8" displayName="Blood erythrocytes automated count (number/volume)" /> <statusCode code="completed" /> < effectiveTime value="" /> <value unit="10*6/uL" xsi:type= "PQ" value="4.27" /> <interpretationCode codeSystem="local" code="" / > <referenceRange> <observationRange> <text> 4.35-5.85</text> </observationRange> </referenceRange> </observation> </component> <component> <observation moodCode="EVN" classCode="OBS"> <templateId root= "2.16.840.1.019749.10.20.22.4.2" /> <id nullFlavor="NA" /> < code codeSystem="local" code="78334-3" displayName="Venous blood hemoglobin measurement (mass/volume)" /> <statusCode code="completed" /> <effectiveTime value="393451648562" /> <value unit="g/dL" xsi:type="PQ " value="13.8" /> <referenceRange> <observationRange> <text>11.5-16.0</text> </observationRange> </ referenceRange> </observation> </component> <component> <observation moodCode="EVN" classCode="OBS"> <templateId root= "2.16.840.1.286614.10...4.2" /> <id nullFlavor="NA" /> < code codeSystem="local" code="60650-8" displayName="Blood hematocrit (volume fraction)" /> <statusCode code="completed" /> <effectiveTime value="029390153038" /> <value unit="%" xsi:type="PQ" value="39" / > <referenceRange> <observationRange> <text>35- 52</text> </observationRange> </referenceRange> </ observation> </component> <component> <observation moodCode= "EVN" classCode="OBS"> <templateId root="2.16.840.1.206554.10.20.22.4.2 " /> <id nullFlavor="NA" /> <code codeSystem="local" code="787 -2" displayName="Automated erythrocyte mean corpuscular volume" /> < statusCode code="completed" /> <effectiveTime value="285269024282" /> <value unit="[foz_us]" xsi:type="PQ" value="92" /> < referenceRange> <observationRange> <text>80-99</text> </observationRange> </referenceRange> </observation> </component> <component> <observation moodCode="EVN" classCode= "OBS"> <templateId root="2.16.840.1.081620.10..22.4.2" /> < id nullFlavor="NA" /> <code codeSystem="local" code="785-6" displayName ="Automated erythrocyte mean corpuscular hemoglobin (mass per erythrocyte)" /> <statusCode code="completed" /> <effectiveTime value= "701353066082" /> <value unit="pg" xsi:type="PQ" value="32" /> <referenceRange> <observationRange> <text>25-34</text > </observationRange> </referenceRange> </observation > </component> <component> <observation moodCode="EVN" classCode="OBS"> <templateId root="2.16.840.1.632506.10...4.2" /> <id nullFlavor="NA" /> <code codeSystem="local" code="786-4" displayName="Automated erythrocyte mean corpuscular hemoglobin concentration measurement (mass/volume)" /> <statusCode code="completed" /> <effectiveTime value="723373855666" /> <value unit="g/dL" xsi:type="PQ " value="35" /> <referenceRange> <observationRange> <text>32-36</text> </observationRange> </ referenceRange> </observation> </component> <component> <observation moodCode="EVN" classCode="OBS"> <templateId root= "2.16.840.1.864882.10.20.22.4.2" /> <id nullFlavor="NA" /> < code codeSystem="local" code="788-0" displayName="Automated erythrocyte distribution width ratio" /> <statusCode code="completed" /> < effectiveTime value="236288549175" /> <value unit="%" xsi:type="PQ " value="12.7" /> <referenceRange> <observationRange> <text>10.0-14.5</text> </observationRange> </ referenceRange> </observation> </component> <component> <observation moodCode="EVN" classCode="OBS"> <templateId root= "2.16.840.1.762612.10...4.2" /> <id nullFlavor="NA" /> < code codeSystem="local" code="777-3" displayName="Automated blood platelet count (count/volume)" /> <statusCode code="completed" /> < effectiveTime value="882329781307" /> <value unit="10*3/uL" xsi:type= "PQ" value="271" /> <referenceRange> <observationRange> <text>130-400</text> </observationRange> </ referenceRange> </observation> </component> <component> <observation moodCode="EVN" classCode="OBS"> <templateId root= "2.16.840.1.872777.10...4.2" /> <id nullFlavor="NA" /> < code codeSystem="local" code="41032-7" displayName="Automated blood platelet mean volume measurement" /> <statusCode code="completed" /> < effectiveTime value="672665058025" /> <value unit="[foz_us]" xsi:type= "PQ" value="9.6" /> <referenceRange> <observationRange> <text>7.4-10.4</text> </observationRange> </ referenceRange> </observation> </component> <component> <observation moodCode="EVN" classCode="OBS"> <templateId root= "2.16.840.1.830150.10.20.22.4.2" /> <id nullFlavor="NA" /> < code codeSystem="local" code="770-8" displayName="Automated blood neutrophils/ 100 leukocytes" /> <statusCode code="completed" /> < effectiveTime value="514203537341" /> <value unit="%" xsi:type="PQ " value="60" /> <referenceRange> <observationRange> <text>42-75</text> </observationRange> </ referenceRange> </observation> </component> <component> <observation moodCode="EVN" classCode="OBS"> <templateId root= "2.16.840.1.464623.10.22.4.2" /> <id nullFlavor="NA" /> < code codeSystem="local" code="736-9" displayName="Automated blood lymphocytes/ 100 leukocytes" /> <statusCode code="completed" /> < effectiveTime value="139296567387" /> <value unit="%" xsi:type="PQ " value="24" /> <referenceRange> <observationRange> <text>12-44</text> </observationRange> </ referenceRange> </observation> </component> <component> <observation moodCode="EVN" classCode="OBS"> <templateId root= "2.16.840.1.129117.10.20.22.4.2" /> <id nullFlavor="NA" /> < code codeSystem="local" code="06870-6" displayName="Blood monocytes/100 leukocytes" /> <statusCode code="completed" /> <effectiveTime value="278031193409" /> <value unit="%" xsi:type="PQ" value="8" /> <referenceRange> <observationRange> <text>0-12 </text> </observationRange> </referenceRange> </ observation> </component> <component> <observation moodCode= "EVN" classCode="OBS"> <templateId root="2.16.840.1.086732.10.20.22.4.2 " /> <id nullFlavor="NA" /> <code codeSystem="local" code="713 -8" displayName="Automated blood eosinophils/100 leukocytes" /> < statusCode code="completed" /> <effectiveTime value="960335438349" /> <value unit="%" xsi:type="PQ" value="8" /> <referenceRange > <observationRange> <text>0-10</text> </ observationRange> </referenceRange> </observation> </ component> <component> <observation moodCode="EVN" classCode="OBS"> <templateId root="2.16.840.1.722752.10.20.22.4.2" /> <id nullFlavor="NA" /> <code codeSystem="local" code="706-2" displayName= "Automated blood basophils/100 leukocytes" /> <statusCode code= "completed" /> <effectiveTime value="080828417622" /> <value unit="%" xsi:type="PQ" value="0" /> <referenceRange> < observationRange> <text>0-10</text> </observationRange> </referenceRange> </observation> </component> < component> <observation moodCode="EVN" classCode="OBS"> < templateId root="2.16.840.1.876149.10.20.22.4.2" /> <id nullFlavor="NA " /> <code codeSystem="local" code="751-8" displayName="Blood neutrophils automated count (number/volume)" /> <statusCode code= "completed" /> <effectiveTime value="499202924494" /> <value unit="10*3" xsi:type="PQ" value="5.5" /> <referenceRange> < observationRange> <text>1.8-7.8</text> </ observationRange> </referenceRange> </observation> </ component> <component> <observation moodCode="EVN" classCode="OBS"> <templateId root="2.16.840.1.371863.10.20.22.4.2" /> <id nullFlavor="NA" /> <code codeSystem="local" code="731-0" displayName= "Blood lymphocytes automated count (number/volume)" /> <statusCode code ="completed" /> <effectiveTime value="687469967876" /> <value unit="10*3" xsi:type="PQ" value="2.2" /> <referenceRange> < observationRange> <text>1.0-4.0</text> </ observationRange> </referenceRange> </observation> </ component> <component> <observation moodCode="EVN" classCode="OBS"> <templateId root="2.16.840.1.442856.10.20.22.4.2" /> <id nullFlavor="NA" /> <code codeSystem="local" code="742-7" displayName= "Blood monocytes automated count (number/volume)" /> <statusCode code= "completed" /> <effectiveTime value="284755290540" /> <value unit="10*3" xsi:type="PQ" value="0.8" /> <referenceRange> < observationRange> <text>0.0-1.0</text> </ observationRange> </referenceRange> </observation> </ component> <component> <observation moodCode="EVN" classCode="OBS"> <templateId root="2.16.840.1.968306.10..4.2" /> <id nullFlavor="NA" /> <code codeSystem="local" code="711-2" displayName= "Automated eosinophil count" /> <statusCode code="completed" /> <effectiveTime value="236692053815" /> <value unit="10*3/uL" xsi: type="PQ" value="0.7" /> <interpretationCode codeSystem="local" code="* *" /> <referenceRange> <observationRange> <text >0.0-0.3</text> </observationRange> </referenceRange> </observation> </component> <component> <observation moodCode ="EVN" classCode="OBS"> <templateId root= "216.840.1.885956.08.03.22.4.2" /> <id nullFlavor="NA" /> < code codeSystem="local" code="704-7" displayName="Automated blood basophil count (count/volume)" /> <statusCode code="completed" /> < effectiveTime value="631757001432" /> <value unit="10*3/uL" xsi:type= "PQ" value="0.0" /> <referenceRange> <observationRange> <text>0.0-0.1</text> </observationRange> </ referenceRange> </observation> </component> </organizer> </entry > <entry> <organizer moodCode="EVN" classCode="BATTERY"> <templateId root="2.16.840.1.307562.10..22.4.1" /> <id nullFlavor="NA" /> <code codeSystem="local" code="50130-8" displayName="Influenza virus A and B antigen detection" /> <statusCode code="completed" /> <component> < observation moodCode="EVN" classCode="OBS"> <templateId root= "2.16.840.1.607637.10.20.22.4.2" /> <id nullFlavor="NA" /> < code codeSystem="local" code="FLURESULT" displayName="FLU RESULT" /> < statusCode code="completed" /> <effectiveTime value="412144925584" /> <value unit="" xsi:type="PQ" value="NEGATIVE FOR INFLUENZA A AND B ANTIGENS BY IA" /> <referenceRange> <observationRange> <text>NRG</text> </observationRange> </ referenceRange> </observation> </component> </organizer> </entry > <entry> <organizer moodCode="EVN" classCode="BATTERY"> <templateId root="2.16.840.1.798855.10.20.22.4.1" /> <id nullFlavor="NA" /> <code codeSystem="local" code="00678-1" displayName="Comprehensive metabolic panel" / > <statusCode code="completed" /> <component> <observation moodCode="EVN" classCode="OBS"> <templateId root= "2.16.840.1.524821.10.20.22.4.2" /> <id nullFlavor="NA" /> < code codeSystem="local" code="2951-2" displayName="Serum or plasma sodium measurement (moles/volume)" /> <statusCode code="completed" /> <effectiveTime value="607386568423" /> <value unit="mmol/L" xsi:type= "PQ" value="138" /> <referenceRange> <observationRange> <text>135-145</text> </observationRange> </ referenceRange> </observation> </component> <component> <observation moodCode="EVN" classCode="OBS"> <templateId root= "2.16.840.1.644703.10.20.22.4.2" /> <id nullFlavor="NA" /> < code codeSystem="local" code="2823-3" displayName="Serum or plasma potassium measurement (moles/volume)" /> <statusCode code="completed" /> <effectiveTime value="312206370227" /> <value unit="mmol/L" xsi:type= "PQ" value="3.9" /> <referenceRange> <observationRange> <text>3.6-5.0</text> </observationRange> </ referenceRange> </observation> </component> <component> <observation moodCode="EVN" classCode="OBS"> <templateId root= "2.16.840.1.759261.10..22.4.2" /> <id nullFlavor="NA" /> < code codeSystem="local" code="" displayName="Serum or plasma chloride measurement (moles/volume)" /> <statusCode code="completed" /> <effectiveTime value="751646999243" /> <value unit="mmol/L" xsi:type= "PQ" value="105" /> <referenceRange> <observationRange> <text>98-107</text> </observationRange> </ referenceRange> </observation> </component> <component> <observation moodCode="EVN" classCode="OBS"> <templateId root= "16.840.1.983624.10.20.22.4.2" /> <id nullFlavor="NA" /> < code codeSystem="local" code="2028-06" displayName="Carbon dioxide" /> < statusCode code="completed" /> <effectiveTime value="552710094970" /> <value unit="mmol/L" xsi:type="PQ" value="22" /> < referenceRange> <observationRange> <text>21-32</text> </observationRange> </referenceRange> </observation> </component> <component> <observation moodCode="EVN" classCode= "OBS"> <templateId root="216.840.1.841525.10.20.22.4.2" /> < id nullFlavor="NA" /> <code codeSystem="local" code="70960-3" displayName="Serum or plasma anion gap determination (moles/volume)" /> <statusCode code="completed" /> <effectiveTime value="118103112051" / > <value unit="mmol/L" xsi:type="PQ" value="11" /> < referenceRange> <observationRange> <text>5-14</text> </observationRange> </referenceRange> </observation> </component> <component> <observation moodCode="EVN" classCode= "OBS"> <templateId root="16.840.1.420647.10...4.2" /> < id nullFlavor="NA" /> <code codeSystem="local" code="3094-0" displayName="Serum or plasma urea nitrogen measurement (mass/volume)" /> <statusCode code="completed" /> <effectiveTime value="630798386094" /> <value unit="mg/dL" xsi:type="PQ" value="9" /> < referenceRange> <observationRange> <text>7-18</text> </observationRange> </referenceRange> </observation> </component> <component> <observation moodCode="EVN" classCode= "OBS"> <templateId root="216.840.1.370409.10.20.22.4.2" /> < id nullFlavor="NA" /> <code codeSystem="local" code="2160-0" displayName="Serum or plasma creatinine measurement (mass/volume)" /> < statusCode code="completed" /> <effectiveTime value="013554353337" /> <value unit="mg/dL" xsi:type="PQ" value="0.57" /> < interpretationCode codeSystem="local" code="" /> <referenceRange> <observationRange> <text>0.60-1.30</text> </ observationRange> </referenceRange> </observation> </ component> <component> <observation moodCode="EVN" classCode="OBS"> <templateId root="2.16.840.1.019405.10..22.4.2" /> <id nullFlavor="NA" /> <code codeSystem="local" code="3097-3" displayName= "Serum or plasma urea nitrogen/creatinine mass ratio" /> <statusCode code="completed" /> <effectiveTime value="603295542010" /> < value unit="" xsi:type="PQ" value="16" /> <referenceRange> < observationRange> <text>NRG</text> </observationRange> </referenceRange> </observation> </component> < component> <observation moodCode="EVN" classCode="OBS"> < templateId root="2.16.840.1.298828.10..22.4.2" /> <id nullFlavor="NA " /> <code codeSystem="local" code="80616-6" displayName="Serum or plasma creatinine measurement with calculation of estimated glomerular filtration rate" /> <statusCode code="completed" /> < effectiveTime value="795331446285" /> <value unit="" xsi:type="PQ" value=">" /> <referenceRange> <observationRange> <text>NRG</text> </observationRange> </referenceRange > </observation> </component> <component> <observation moodCode="EVN" classCode="OBS"> <templateId root= "2.16.840.1.927291.10.20.22.4.2" /> <id nullFlavor="NA" /> < code codeSystem="local" code="2345-7" displayName="Serum or plasma glucose measurement (mass/volume)" /> <statusCode code="completed" /> <effectiveTime value="060237435628" /> <value unit="mg/dL" xsi:type="PQ " value="81" /> <referenceRange> <observationRange> <text>70-105</text> </observationRange> </ referenceRange> </observation> </component> <component> <observation moodCode="EVN" classCode="OBS"> <templateId root= "216.840.1.277813.10..22.4.2" /> <id nullFlavor="NA" /> < code codeSystem="local" code="72681-0" displayName="Serum or plasma calcium measurement (mass/volume)" /> <statusCode code="completed" /> <effectiveTime value="568128373059" /> <value unit="mg/dL" xsi:type="PQ " value="9.7" /> <referenceRange> <observationRange> <text>8.5-10.1</text> </observationRange> </ referenceRange> </observation> </component> <component> <observation moodCode="EVN" classCode="OBS"> <templateId root= "2.16.840.1.501151.10..22.4.2" /> <id nullFlavor="NA" /> < code codeSystem="local" code="1974-11" displayName="Serum or plasma total bilirubin measurement (mass/volume)" /> <statusCode code="completed" / > <effectiveTime value="978346734919" /> <value unit="mg/dL" xsi:type="PQ" value="0.2" /> <referenceRange> < observationRange> <text>0.1-1.0</text> </ observationRange> </referenceRange> </observation> </ component> <component> <observation moodCode="EVN" classCode="OBS"> <templateId root="2.16.840.1.462645.10.20.22.4.2" /> <id nullFlavor="NA" /> <code codeSystem="local" code="6768-6" displayName= "Serum or plasma alkaline phosphatase measurement (enzymatic activity/volume)" / > <statusCode code="completed" /> <effectiveTime value= "488842123517" /> <value unit="U/L" xsi:type="PQ" value="55" /> <referenceRange> <observationRange> <text>40-136</ text> </observationRange> </referenceRange> </ observation> </component> <component> <observation moodCode= "EVN" classCode="OBS"> <templateId root="2.16.840.1.655852.10..22.4.2 " /> <id nullFlavor="NA" /> <code codeSystem="local" code= "1920" displayName="Serum or plasma aspartate aminotransferase measurement ( enzymatic activity/volume)" /> <statusCode code="completed" /> <effectiveTime value="210992747095" /> <value unit="U/L" xsi:type="PQ " value="17" /> <referenceRange> <observationRange> <text>5-34</text> </observationRange> </referenceRange > </observation> </component> <component> <observation moodCode="EVN" classCode="OBS"> <templateId root= "2.16.840.1.035103.10..22.4.2" /> <id nullFlavor="NA" /> < code codeSystem="local" code="1742-6" displayName="Serum or plasma alanine aminotransferase measurement (enzymatic activity/volume)" /> < statusCode code="completed" /> <effectiveTime value="560341804833" /> <value unit="U/L" xsi:type="PQ" value="9" /> <referenceRange> <observationRange> <text>0-55</text> </ observationRange> </referenceRange> </observation> </ component> <component> <observation moodCode="EVN" classCode="OBS"> <templateId root="2.16.840.1.003587.10.20.22.4.2" /> <id nullFlavor="NA" /> <code codeSystem="local" code="2885-2" displayName= "Serum or plasma protein measurement (mass/volume)" /> <statusCode code ="completed" /> <effectiveTime value="790763261248" /> <value unit="g/dL" xsi:type="PQ" value="6.8" /> <referenceRange> < observationRange> <text>6.4-8.2</text> </ observationRange> </referenceRange> </observation> </ component> <component> <observation moodCode="EVN" classCode="OBS"> <templateId root="2.16.840.1.576716.10.20.22.4.2" /> <id nullFlavor="NA" /> <code codeSystem="local" code="1751-7" displayName= "Serum or plasma albumin measurement (mass/volume)" /> <statusCode code ="completed" /> <effectiveTime value="384470278517" /> <value unit="g/dL" xsi:type="PQ" value="4.1" /> <referenceRange> < observationRange> <text>3.2-4.5</text> </ observationRange> </referenceRange> </observation> </ component> <component> <observation moodCode="EVN" classCode="OBS"> <templateId root="2.16.840.1.126245.10..22.4.2" /> <id nullFlavor="NA" /> <code codeSystem="local" code="CALCIUMCORR" displayName="CALCIUM CORRECTED" /> <statusCode code="completed" /> <effectiveTime value="793569177543" /> <value unit="mg/dL" xsi: type="PQ" value="9.6" /> <referenceRange> <observationRange > <text>8.5-10.1</text> </observationRange> </ referenceRange> </observation> </component> </organizer> </entry > <entry> <organizer moodCode="EVN" classCode="BATTERY"> <templateId root="2.16.840.1.375888.10.20.22.4.1" /> <id nullFlavor="NA" /> <code codeSystem="local" code="1798-05" displayName="Serum or plasma amylase measurement (enzymatic activity/volume)" /> <statusCode code="completed" / > <component> <observation moodCode="EVN" classCode="OBS"> <templateId root="2.16.840.1.632893.10.20.22.4.2" /> <id nullFlavor="NA " /> <code codeSystem="local" code="1798-05" displayName="Serum or plasma amylase measurement (enzymatic activity/volume)" /> <statusCode code="completed" /> <effectiveTime value="475669738802" /> < value unit="U/L" xsi:type="PQ" value="40" /> <referenceRange> <observationRange> <text>25-125</text> </ observationRange> </referenceRange> </observation> </ component> </organizer> </entry> <entry> <organizer moodCode="EVN" classCode="BATTERY"> <templateId root="16.840.1.944683.10..4.1" /> <id nullFlavor="NA" /> <code codeSystem="local" code="3040" displayName="Lipase" /> <statusCode code="completed" /> <component> <observation moodCode="EVN" classCode="OBS"> <templateId root= "11.30.840.1.598921...4.2" /> <id nullFlavor="NA" /> < code codeSystem="local" code="304" displayName="Lipase" /> < statusCode code="completed" /> <effectiveTime value="006702456891" /> <value unit="U/L" xsi:type="PQ" value="23" /> <referenceRange > <observationRange> <text>8</text> </ observationRange> </referenceRange> </observation> </ component> </organizer> </entry> <entry> <organizer moodCode="EVN" classCode="BATTERY"> <templateId root="11.30.840.1.187227.10..4.1" /> <id nullFlavor="NA" /> <code codeSystem="local" code="73379-6" displayName="Urine drug screening test" /> <statusCode code="completed" /> <component> <observation moodCode="EVN" classCode="OBS"> < templateId root="11.30.840.1.570712.10...4.2" /> <id nullFlavor="NA " /> <code codeSystem="local" code="62096-8" displayName="Urine phencyclidine detection by screening method" /> <statusCode code= "completed" /> <effectiveTime value="634566438299" /> <value unit="" xsi:type="PQ" value="NEGATIVE" /> <referenceRange> < observationRange> <text>NEGATIVE</text> </ observationRange> </referenceRange> </observation> </ component> <component> <observation moodCode="EVN" classCode="OBS"> <templateId root="216.840.1.483011.1022.4.2" /> <id nullFlavor="NA" /> <code codeSystem="local" code="16540-7" displayName= "Urine benzodiazepines detection by screening method" /> <statusCode code="completed" /> <effectiveTime value="" /> < value unit="" xsi:type="PQ" value="NEGATIVE" /> <referenceRange> <observationRange> <text>NEGATIVE</text> </ observationRange> </referenceRange> </observation> </ component> <component> <observation moodCode="EVN" classCode="OBS"> <templateId root="11.30.840.1.130193.08.03.22.4.2" /> <id nullFlavor="NA" /> <code codeSystem="local" code="3397-7" displayName= "Urine cocaine detection" /> <statusCode code="completed" /> < effectiveTime value="717774416082" /> <value unit="" xsi:type="PQ" value="NEGATIVE" /> <referenceRange> <observationRange> <text>NEGATIVE</text> </observationRange> </ referenceRange> </observation> </component> <component> <observation moodCode="EVN" classCode="OBS"> <templateId root= "16.840.1.318352.10.2022.4.2" /> <id nullFlavor="NA" /> < code codeSystem="local" code="87753-2" displayName="Urine amphetamines detection by screening method" /> <statusCode code="completed" /> <effectiveTime value="033404059679" /> <value unit="" xsi:type="PQ " value="NEGATIVE" /> <referenceRange> <observationRange> <text>NEGATIVE</text> </observationRange> </ referenceRange> </observation> </component> <component> <observation moodCode="EVN" classCode="OBS"> <templateId root= "16.840.1.098193.10.20.22.4.2" /> <id nullFlavor="NA" /> < code codeSystem="local" code="56587-4" displayName="Urine methamphetamine detection by screening method" /> <statusCode code="completed" /> <effectiveTime value="819591937532" /> <value unit="" xsi:type="PQ " value="NEGATIVE" /> <referenceRange> <observationRange> <text>NEGATIVE</text> </observationRange> </ referenceRange> </observation> </component> <component> <observation moodCode="EVN" classCode="OBS"> <templateId root= "16.840.1.721968.10.20.22.4.2" /> <id nullFlavor="NA" /> < code codeSystem="local" code="69288-5" displayName="Urine cannabinoids detection by screening method" /> <statusCode code="completed" /> <effectiveTime value="230164193387" /> <value unit="" xsi:type="PQ " value="NEGATIVE" /> <referenceRange> <observationRange> <text>NEGATIVE</text> </observationRange> </ referenceRange> </observation> </component> <component> <observation moodCode="EVN" classCode="OBS"> <templateId root= "11.30.840.1.014977.10..22.4.2" /> <id nullFlavor="NA" /> < code codeSystem="local" code="19152-1" displayName="Urine opiates detection by screening method" /> <statusCode code="completed" /> < effectiveTime value="" /> <value unit="" xsi:type="PQ" value="NEGATIVE" /> <referenceRange> <observationRange> <text>NEGATIVE</text> </observationRange> </ referenceRange> </observation> </component> <component> <observation moodCode="EVN" classCode="OBS"> <templateId root= "2.16.840.1.206177...4.2" /> <id nullFlavor="NA" /> < code codeSystem="local" code="3377-9" displayName="Urine barbiturates detection " /> <statusCode code="completed" /> <effectiveTime value= "" /> <value unit="" xsi:type="PQ" value="NEGATIVE" /> <referenceRange> <observationRange> <text>NEGATIVE </text> </observationRange> </referenceRange> </ observation> </component> <component> <observation moodCode= "EVN" classCode="OBS"> <templateId root="216.840.1.749692.10.22.4.2 " /> <id nullFlavor="NA" /> <code codeSystem="local" code= "03068-2" displayName="Screening urine tricyclic antidepressants detection" /> <statusCode code="completed" /> <effectiveTime value= "" /> <value unit="" xsi:type="PQ" value="NEGATIVE" /> <referenceRange> <observationRange> <text>NEGATIVE </text> </observationRange> </referenceRange> </ observation> </component> <component> <observation moodCode= "EVN" classCode="OBS"> <templateId root="2.16.840.1.403036.10..22.4.2 " /> <id nullFlavor="NA" /> <code codeSystem="local" code= "20943-1" displayName="Urine methadone detection by screening method" /> <statusCode code="completed" /> <effectiveTime value="" /> <value unit="" xsi:type="PQ" value="NEGATIVE" /> < referenceRange> <observationRange> <text>NEGATIVE</text > </observationRange> </referenceRange> </observation > </component> <component> <observation moodCode="EVN" classCode="OBS"> <templateId root="216.840.1.915473.10...4.2" /> <id nullFlavor="NA" /> <code codeSystem="local" code="62211-0 " displayName="Urine oxycodone detection" /> <statusCode code= "completed" /> <effectiveTime value="" /> <value unit="" xsi:type="PQ" value="NEGATIVE" /> <referenceRange> < observationRange> <text>NEGATIVE</text> </ observationRange> </referenceRange> </observation> </ component> <component> <observation moodCode="EVN" classCode="OBS"> <templateId root="216.840.1.196291.10..22.4.2" /> <id nullFlavor="NA" /> <code codeSystem="local" code="74183-2" displayName= "Urine propoxyphene detection" /> <statusCode code="completed" /> <effectiveTime value="514633367026" /> <value unit="" xsi:type="PQ " value="NEGATIVE" /> <referenceRange> <observationRange> <text>NEGATIVE</text> </observationRange> </ referenceRange> </observation> </component> </organizer> </entry > <entry> <organizer moodCode="EVN" classCode="BATTERY"> <templateId root="216.840.1.687575.10..22.4.1" /> <id nullFlavor="NA" /> <code codeSystem="local" code="62245-6" displayName="Complete urinalysis with reflex to culture" /> <statusCode code="completed" /> <component> < observation moodCode="EVN" classCode="OBS"> <templateId root= "216.840.1.637486.10..22.4.2" /> <id nullFlavor="NA" /> < code codeSystem="local" code="5778-6" displayName="Urine color determination" / > <statusCode code="completed" /> <effectiveTime value= "" /> <value unit="" xsi:type="PQ" value="YELLOW" /> <referenceRange> <observationRange> <text>NRG</text > </observationRange> </referenceRange> </observation > </component> <component> <observation moodCode="EVN" classCode="OBS"> <templateId root="16.840.1.384105.10..22.4.2" /> <id nullFlavor="NA" /> <code codeSystem="local" code="57980-3 " displayName="Urine clarity determination" /> <statusCode code= "completed" /> <effectiveTime value="" /> <value unit="" xsi:type="PQ" value="CLEAR" /> <referenceRange> < observationRange> <text>NRG</text> </observationRange> </referenceRange> </observation> </component> < component> <observation moodCode="EVN" classCode="OBS"> < templateId root="216.840.1.842613.10.20.22.4.2" /> <id nullFlavor="NA " /> <code codeSystem="local" code="5803-2" displayName="Urine pH measurement by test strip" /> <statusCode code="completed" /> <effectiveTime value="" /> <value unit="" xsi:type="PQ" value="7" /> <referenceRange> <observationRange> <text>5-9</text> </observationRange> </referenceRange> </observation> </component> <component> <observation moodCode="EVN" classCode="OBS"> <templateId root= "216.840.1.410344.10...4.2" /> <id nullFlavor="NA" /> < code codeSystem="local" code="5811-5" displayName="Specific gravity of urine by test strip" /> <statusCode code="completed" /> <effectiveTime value="" /> <value unit="" xsi:type="PQ" value="1.005" /> <interpretationCode codeSystem="local" code="" /> < referenceRange> <observationRange> <text>1.016-1.022</ text> </observationRange> </referenceRange> </ observation> </component> <component> <observation moodCode= "EVN" classCode="OBS"> <templateId root="216.840.1.639556.10..22.4.2 " /> <id nullFlavor="NA" /> <code codeSystem="local" code= "84422-4" displayName="Urine protein assay by test strip, semi-quantitative" /> <statusCode code="completed" /> <effectiveTime value= "986316854518" /> <value unit="" xsi:type="PQ" value="NEGATIVE" /> <referenceRange> <observationRange> <text>NEGATIVE </text> </observationRange> </referenceRange> </ observation> </component> <component> <observation moodCode= "EVN" classCode="OBS"> <templateId root="216.840.1.486626.10.2022.4.2 " /> <id nullFlavor="NA" /> <code codeSystem="local" code= "07618-7" displayName="Urine glucose detection by automated test strip" /> <statusCode code="completed" /> <effectiveTime value=" " /> <value unit="" xsi:type="PQ" value="NEGATIVE" /> < referenceRange> <observationRange> <text>NEGATIVE</text > </observationRange> </referenceRange> </observation > </component> <component> <observation moodCode="EVN" classCode="OBS"> <templateId root="11.30.840.1.812919.10.22.4.2" /> <id nullFlavor="NA" /> <code codeSystem="local" code="17322-3 " displayName="Erythrocytes detection in urine sediment by light microscopy" /> <statusCode code="completed" /> <effectiveTime value= "537273525069" /> <value unit="" xsi:type="PQ" value="NEGATIVE" /> <referenceRange> <observationRange> <text>NEGATIVE </text> </observationRange> </referenceRange> </ observation> </component> <component> <observation moodCode= "EVN" classCode="OBS"> <templateId root="11.30.840.1.074581.10.2022.4.2 " /> <id nullFlavor="NA" /> <code codeSystem="local" code= "32463-5" displayName="Urine ketones detection by automated test strip" /> <statusCode code="completed" /> <effectiveTime value="618316036366 " /> <value unit="" xsi:type="PQ" value="NEGATIVE" /> < referenceRange> <observationRange> <text>NEGATIVE</text > </observationRange> </referenceRange> </observation > </component> <component> <observation moodCode="EVN" classCode="OBS"> <templateId root="16.840.1.847325.10..22.4.2" /> <id nullFlavor="NA" /> <code codeSystem="local" code="5802-4" displayName="Urine nitrite detection by test strip" /> <statusCode code ="completed" /> <effectiveTime value="387655326492" /> <value unit="" xsi:type="PQ" value="NEGATIVE" /> <referenceRange> < observationRange> <text>NEGATIVE</text> </ observationRange> </referenceRange> </observation> </ component> <component> <observation moodCode="EVN" classCode="OBS"> <templateId root="11.30.840.1.512570.10..22.4.2" /> <id nullFlavor="NA" /> <code codeSystem="local" code="5770-3" displayName= "Urine total bilirubin detection by test strip" /> <statusCode code= "completed" /> <effectiveTime value="470299550013" /> <value unit="" xsi:type="PQ" value="NEGATIVE" /> <referenceRange> < observationRange> <text>NEGATIVE</text> </ observationRange> </referenceRange> </observation> </ component> <component> <observation moodCode="EVN" classCode="OBS"> <templateId root="11.30.840.1.191313.08.03.22.4.2" /> <id nullFlavor="NA" /> <code codeSystem="local" code="90333-5" displayName= "Urine urobilinogen measurement by automated test strip (mass/volume)" /> <statusCode code="completed" /> <effectiveTime value="614139114796 " /> <value unit="" xsi:type="PQ" value="NORMAL" /> < referenceRange> <observationRange> <text>NORMAL</text> </observationRange> </referenceRange> </observation> </component> <component> <observation moodCode="EVN" classCode ="OBS"> <templateId root="2.16.840.1.423046.08.03.22.4.2" /> < id nullFlavor="NA" /> <code codeSystem="local" code="5799-2" displayName="Urine leukocyte esterase detection by dipstick" /> < statusCode code="completed" /> <effectiveTime value="186975202112" /> <value unit="" xsi:type="PQ" value="NEGATIVE" /> < referenceRange> <observationRange> <text>NEGATIVE</text > </observationRange> </referenceRange> </observation > </component> <component> <observation moodCode="EVN" classCode="OBS"> <templateId root="2.16.840.1.002106.08.03.22.4.2" /> <id nullFlavor="NA" /> <code codeSystem="local" code="31986-3 " displayName="Automated urine sediment erythrocyte count by microscopy (number/ high power field)" /> <statusCode code="completed" /> < effectiveTime value="116896294671" /> <value unit="" xsi:type="PQ" value="NONE" /> <referenceRange> <observationRange> <text>NRG</text> </observationRange> </referenceRange > </observation> </component> <component> <observation moodCode="EVN" classCode="OBS"> <templateId root= "216.840.1.677121.10..22.4.2" /> <id nullFlavor="NA" /> < code codeSystem="local" code="5821-4" displayName="Automated urine sediment leukocyte count by microscopy (number/high power field)" /> < statusCode code="completed" /> <effectiveTime value="311136201850" /> <value unit="[HPF]" xsi:type="PQ" value="" /> <referenceRange > <observationRange> <text>NRG</text> </ observationRange> </referenceRange> </observation> </ component> <component> <observation moodCode="EVN" classCode="OBS"> <templateId root="216.840.1.867928.10...4.2" /> <id nullFlavor="NA" /> <code codeSystem="local" code="85833-1" displayName= "Bacteria detection in urine sediment by light microscopy" /> < statusCode code="completed" /> <effectiveTime value="528222045379" /> <value unit="" xsi:type="PQ" value="FEW" /> < interpretationCode codeSystem="local" code="*" /> <referenceRange> <observationRange> <text>NRG</text> </ observationRange> </referenceRange> </observation> </ component> <component> <observation moodCode="EVN" classCode="OBS"> <templateId root="216.840.1.523930.10..22.4.2" /> <id nullFlavor="NA" /> <code codeSystem="local" code="92869-4" displayName= "Squamous epithelial cells detection in urine sediment by light microscopy" /> <statusCode code="completed" /> <effectiveTime value= "542145990139" /> <value unit="" xsi:type="PQ" value="0-2" /> <referenceRange> <observationRange> <text>NRG</text> </observationRange> </referenceRange> </observation> </component> <component> <observation moodCode="EVN" classCode= "OBS"> <templateId root="16.840.1.041069.10.2022.4.2" /> < id nullFlavor="NA" /> <code codeSystem="local" code="54474-0" displayName="Crystals detection in urine sediment by light microscopy" /> <statusCode code="completed" /> <effectiveTime value="483830994311 " /> <value unit="" xsi:type="PQ" value="NONE" /> < referenceRange> <observationRange> <text>NRG</text> </observationRange> </referenceRange> </observation> </component> <component> <observation moodCode="EVN" classCode= "OBS"> <templateId root="11.30.840.1.809891.10.22.4.2" /> < id nullFlavor="NA" /> <code codeSystem="local" code="14291-9" displayName="Casts detection in urine sediment by light microscopy" /> <statusCode code="completed" /> <effectiveTime value="423625869229" /> <value unit="" xsi:type="PQ" value="NONE" /> <referenceRange > <observationRange> <text>NRG</text> </ observationRange> </referenceRange> </observation> </ component> <component> <observation moodCode="EVN" classCode="OBS"> <templateId root="16.840.1.311327.10.20.22.4.2" /> <id nullFlavor="NA" /> <code codeSystem="local" code="8247-9" displayName= "Mucus detection in urine sediment by light microscopy" /> <statusCode code="completed" /> <effectiveTime value="089104570938" /> < value unit="" xsi:type="PQ" value="NEGATIVE" /> <referenceRange> <observationRange> <text>NRG</text> </ observationRange> </referenceRange> </observation> </ component> <component> <observation moodCode="EVN" classCode="OBS"> <templateId root="2.16.840.1.337167.10.20.22.4.2" /> <id nullFlavor="NA" /> <code codeSystem="local" code="07554-6" displayName= "Complete urinalysis with reflex to culture" /> <statusCode code= "completed" /> <effectiveTime value="247430175686" /> <value unit="" xsi:type="PQ" value="NO" /> <referenceRange> < observationRange> <text>NRG</text> </observationRange> </referenceRange> </observation> </component> </ organizer> </entry></section> Encounters ACCT No. Visit Date/Time Discharge Status Pt. Type Provider Facility Loc./Unit Complaint [id number] 12/24/2017 00:00:00 12/24/2017 00:00:00 DIS Outpatient [id number] 03/14/2017 13:15:00 Document Registration [id number] 03/14/2017 00:00:00 Document Registration [id number] 01/05/2018 15:04:00 ACT Document Registration [id number] 11/05/2018 14:01:00 11/05/2018 23:59:00 DIS Outpatient Delaney Delane [facility] on [facility] Diag Rad R05 [id number] 01/04/2018 10:08:00 01/04/2018 12:30:00 DIS Emergency Magallanes Howard [facility] ED abd pain [id number] 12/15/2017 20:05:00 12/15/2017 23:59:59 CLS Emergency Zarate Jacob [facility] on [facility] ED chest pain, memory issues [id number] 11/21/2017 00:46:00 11/28/2017 17:20:00 DIS Inpatient Hernandez Rex [facility] on [facility] J5IM SA, APAP tox, meth abuse [id number] 11/04/2017 02:42:00 11/04/2017 03:40:00 DIS Emergency Zac Tijerina [facility] on [facility] ED SOA, ABD Pain [id number] 10/16/2017 22:17:00 10/17/2017 01:11:00 DIS Emergency Magallanes Howard [facility] on [facility] ED abd pain [id number] 08/04/2017 18:35:00 08/05/2017 12:28:00 DIS Emergency Zarate Jacob [facility] on [facility] ED abominal pain [id number] 08/03/2017 11:01:00 08/03/2017 14:17:00 DIS Emergency Zarate Jacob [facility] on [facility] ED abd pain [id number] 06/11/2017 10:40:00 06/11/2017 23:59:59 CLS Emergency Zarate Jacob [facility] on [facility] ED ABD PAIN [id number] 05/24/2017 09:18:00 05/24/2017 12:11:00 DIS Emergency Zarate Jacob [facility] on [facility] ED n/v bodyaches, chills [id number] 02/09/2017 08:16:00 02/09/2017 13:41:00 DIS Emergency Love Denise [facility] on [facility] ED nausea, left sided abd pain [id number] 09/30/2016 01:15:00 09/30/2016 04:31:00 DIS Emergency Richar Pierce [facility] on [facility] ED sore throat, left ear pain [id number] 08/17/2016 17:31:00 08/17/2016 19:42:00 DIS Emergency Zac Tijerina [facility] on [facility] ED right side abd pain [id number] 08/16/2016 00:56:00 08/17/2016 12:59:00 DIS Outpatient Marcus Yunior [facility] on [facility] J6E intractable abdominal pain [id number] 05/28/2016 20:19:00 05/28/2016 21:41:00 DIS Emergency Srivastava Mark [facility] on [facility] ED cough, SOA [id number] 03/20/2016 01:21:00 03/20/2016 23:59:59 CLS Emergency Skinner Matthew [facility] on [facility] ED abd pain, cramping [id number] 03/07/2016 21:42:00 03/08/2016 19:16:00 DIS Outpatient Jorge Brice [facility] on [facility] J5W Incomplete / dysfunctional bleeding [id number] 02/29/2016 23:47:00 03/01/2016 01:01:00 DIS Emergency Srivastava Mark [facility] on [facility] ED vaginal bleeding [id number] 02/28/2016 20:08:00 02/28/2016 22:19:00 DIS Emergency Srivastava Mark [facility] on [facility] ED vag bleeding, 8 wks [id number] 02/18/2016 13:47:00 02/18/2016 17:14:00 DIS Emergency Richar Pierce [facility] on [facility] ED Possible miscarriage [id number] 01/25/2016 20:48:00 01/25/2016 23:09:00 DIS Emergency José Magallanes MD [facility] on [facility] ED CONGESTION, COUGH [id number] 11/25/2015 13:12:00 11/25/2015 13:52:00 DIS Emergency José Magallanes MD [facility] on [facility] ED sore throt [id number] 10/27/2015 12:04:00 10/27/2015 13:55:00 DIS Emergency Richar Pierce [facility] on [facility] ED SOA possible reaction to meds [id number] 06/10/2015 10:24:00 06/10/2015 12:25:00 DIS Emergency Rodolfo DODD, Navin Pineda [facility] ED N/V [id number] 05/02/2015 12:45:00 05/02/2015 17:15:00 DIS Emergency Elpidio DODD, José Barajas [facility] ED sore throat, AGUILERA [id number] 01/05/2018 05:16:58 Document Registration [id number] 11/29/2017 05:16:48 Document Registration [id number] 11/27/2017 05:17:01 Document Registration [id number] 11/26/2017 05:15:46 Document Registration [id number] 11/24/2017 05:16:54 Document Registration [id number] 11/23/2017 05:16:49 Document Registration [id number] 11/22/2017 05:16:43 Document Registration [id number] 11/21/2017 05:17:23 Document Registration [id number] 08/06/2017 05:16:01 Document Registration [id number] 08/05/2017 05:16:09 Document Registration [id number] 08/05/2017 05:16:08 Document Registration [id number] 08/04/2017 05:17:00 Document Registration [id number] 08/04/2017 05:16:59 Document Registration [id number] 05/25/2017 05:16:24 Document Registration [id number] 05/25/2017 05:16:23 Document Registration [id number] 02/10/2017 05:16:11 Document Registration [id number] 10/01/2016 05:15:23 Document Registration [id number] 09/30/2016 05:15:40 Document Registration [id number] 08/18/2016 05:17:33 Document Registration [id number] 08/17/2016 05:17:15 Document Registration [id number] 08/16/2016 05:17:13 Document Registration [id number] 05/29/2016 05:15:17 Document Registration [id number] 03/21/2016 05:15:44 Document Registration [id number] 03/09/2016 05:15:51 Document Registration [id number] 03/08/2016 05:16:38 Document Registration [id number] 03/01/2016 05:16:45 Document Registration [id number] 02/19/2016 05:16:30 Document Registration [id number] 01/26/2016 05:16:48 Document Registration [id number] 11/26/2015 05:16:00 Document Registration [id number] 10/28/2015 05:16:07 Document Registration [id number] 10/23/2015 05:16:33 Document Registration [id number] 10/23/2015 00:22:00 Document Registration [id number] 08/04/2015 13:35:28 Document Registration [id number] 08/04/2015 13:04:37 Document Registration [id number] 08/04/2015 11:33:05 Document Registration [id number] 11/05/2018 13:45:00 11/05/2018 23:59:59 CLS Outpatient [facility]uca Del[id number] 10/16/2017 23:32:00 10/17/2017 00:30:00 DIS Emergency [id number] 06/11/2017 18:32:00 06/11/2017 21:45:00 DIS Emergency Tanja DODD, Odalis Vazquez [facility] W.JOGN [id number] 06/08/2016 13:30:00 06/08/2016 13:30:00 CAN Outpatient Sae Reyna DO [facility] W.PUMA [id number] 02/04/2016 14:29:00 02/04/2016 17:46:00 DIS Emergency Fabienne DODD, Rashaun Mendes [facility].JONG [id number] 01/30/2016 21:33:00 01/30/2016 22:51:00 DIS Emergency Vishal DODD, Zac [facility]sh[facility] [id number] 12/11/2015 15:28:00 12/11/2015 15:59:00 DIS Emergency Golden Galloway DO [facility] [id number] 11/30/2015 23:10:00 12/01/2015 00:15:00 DIS Emergency Justino Matson DO [facility] [id number] 10/06/2016 14:57:20 10/06/2016 23:59:59 CLS Outpatient Yunior Velazquez [id number] 12/25/2017 05:16:39 Document Registration [id number] 12/22/2017 05:16:44 Document Registration [id number] 12/21/2017 05:16:13 Document Registration [id number] 12/20/2017 05:17:02 Document Registration [id number] 12/19/2017 05:17:18 Document Registration [id number] 12/16/2017 05:16:09 Document Registration [id number] 12/15/2017 20:05:00 Document Registration [id number] 02/09/2017 08:16:00 Document Registration [id number] 08/17/2016 17:31:00 Document Registration [id number] 08/16/2016 00:00:00 Document Registration [id number] 03/07/2016 21:42:00 Document Registration [id number] 02/29/2016 15:29:00 Document Registration [id number] 12/11/2018 18:27:00 12/11/2018 20:57:00 DIS Outpatient BUTCH LOTT [facility] ER AMS,14 WEEKS PREG [id number] 11/28/2018 13:51:00 11/28/2018 16:10:00 DIS Emergency CHRIS OZUNA APRN [facility] ER 12 WKS , THROWING UP [id number] 07/16/2018 05:03:00 07/16/2018 05:26:00 DIS Emergency SALVATORE MORROW MD [facility] ER PSYCH [id number] 05/08/2018 13:31:00 05/08/2018 14:12:00 DIS Emergency BUTCH LOTT [facility] ER RIGHT FINGER LACERATION [id number] 03/26/2018 02:10:00 03/27/2018 13:26:00 DIS Inpatient HEMALATHA DODD, LEROY Nash [facility] ICU OD,SUICIDE ATTEMPT, TRICHOMONAS VAGINITIS [id number] 03/26/2018 07:31:00 Document Registration [id number] 03/26/2018 07:31:00 Document Registration [id number] 03/26/2018 07:31:00 Document Registration [id number] 09/01/2009 08:33:00 Document Registration [id number] 12/10/2018 14:00:00 12/10/2018 23:59:59 CLS [facility]
--- NOTE | 2018-12-22 13:39 | NUR ---
TO ROOM NO CHANGE FROM TRIAGE.
[2018-12-22] MEDS ORDERED: ONDANSETRON 4 MG (ZOFRAN) ORAL DISSOLVE TAB SL ONE (14:30)
[2018-12-22] MEDS ORDERED: ANTACID SUSP 30 ML UDC (MYLANTA) PO ONE (14:30)
[2018-12-22] MEDS ORDERED: LIDOCAINE 2% VISCOUS 15 ML UDC PO ONE (14:30)
[2018-12-22 14:48] LABS: BILIRUBIN,URINE NEGATIVE (NEGATIVE); CLARITY,URINE CLEAR; COLOR,URINE YELLOW; GLUCOSE, URINE (UA) NEGATIVE (NEGATIVE); KETONES,URINE NEGATIVE (NEGATIVE); LEUKOCYTE ESTERASE ,URINE 1+ (NEGATIVE); NITRITE,URINE NEGATIVE (NEGATIVE); PH,URINE 6 (5-9); PROTEIN,URINE NEGATIVE (NEGATIVE); UROBILINOGEN,URINE NORMAL (NORMAL)
[2018-12-22 14:51] LABS: BACTERIA,URINE NEGATIVE /HPF; SQUAMOUS EPITHELIAL CELL,UR RARE /HPF; WBC,URINE RARE /HPF
--- NOTE | 2018-12-22 15:17 | NUR ---
TO ROOM PATIENT AND SLEEPING PATIENT AWAKENED. AND REPORTS SHE IS MUCH BETTER.
[2018-12-22] MEDS ORDERED: LANS30CA43 PO (15:52)
--- NOTE | 2018-12-22 15:54 | ED Abdominal Pain ---
General Chief Complaint: Abdominal/GI Problems Stated Complaint: ABD PAIN,COUGH Nursing Triage Note: pt is 16 weeks and c/o abdominal cramps starting this morning, denies any vaginal bleeding. pt is G8, P3, A4. pt also c/o non-productive cough x 1 week. Sepsis Screen: No Definite Risk Source of Information: Patient Exam Limitations: No Limitations History of Present Illness Date Seen by Provider: Dec 23, 2018 Time Seen by Provider: 14:20 Initial Comments This 28-year-old woman around 16 weeks gestational age presents to the emergency room with upper abdominal pain and cramping starting this morning. She denies any vaginal symptoms or abdominal symptoms below the navel. She is afebrile. She denies constipation, vomiting, or diarrhea. She additionally states she has had cough recently. She has lost her appetite and has not really attempted to eat or drink since the pain started. Patient notes she has taken antacid therapy for acid reflux during prior pregnancies. Allergies and Home Medications Allergies Coded Allergies: penicillin G (Verified Allergy, Severe, Throat Swelling, 03/26/18) divalproex sodium (Verified Allergy, Unknown, Vomiting, 03/26/18) Home Medications Lansoprazole 30 Mg Capsule.dr, 30 MG PO DAILY Prescribed by: KLELY AVILA on 12/22/18 1552 Ondansetron 8 Mg Tab.rapdis, 8 MG PO Q6H PRN for NAUSEA/VOMITING-1ST LINE Prescribed by: CHRIS OZUNA on 11/28/18 1407 Patient Home Medication List Home Medication List Reviewed: Yes Review of Systems Review of Systems Constitutional: no symptoms reported EENTM: No Symptoms Reported Respiratory: See HPI Cardiovascular: No Symptoms Reported Gastrointestinal: See HPI Genitourinary: See HPI Musculoskeletal: no symptoms reported Skin: no symptoms reported Psychiatric/Neurological: No Symptoms Reported Endocrine: No Symptoms Reported Hematologic/Lymphatic: No Symptoms Reported Past Dursmkh-Cmtxxo-Ccxxdv Hx Past Med/Social Hx: Reviewed and Corrections made Patient Social History Alcohol Use: Denies Use Recreational Drug Use: Yes (previous hx) Drug of Choice: THC, methamphetamine, PCP Smoking Status: Current Everyday Smoker Type Used: Cigarettes 2nd Hand Smoke Exposure: Yes Recent Foreign Travel: No Contact w/Someone Who Travel: No Recent Infectious Disease Expo: No Recent Hopitalizations: No Immunizations Up To Date Tetanus Booster (TDap): Unknown PED Vaccines UTD: No Seasonal Allergies Seasonal Allergies: No Past Medical History Surgeries: Yes Gallbladder Respiratory: Yes Asthma Currently Using CPAP: No Currently Using BIPAP: No Cardiac: Yes Heart Murmur Neurological: No : Yes (16 weeks gestation) Expected Date of Delivery: Sep 10, 2019 Last Menstrual Period: Sep 07, 2018 Hx : 8 Hx Para: 3 Hx Total # of Abortions (Sp): 4 Female Reproductive Disorders: Denies Sexually Transmitted Disease: Yes (HPV) HIV/AIDS: No Genitourinary: Yes Benign Prostatic Hyperpl Gastrointestinal: No Musculoskeletal: No Endocrine: No HEENT: No Loss of Vision: Denies Hearing Impairment: Denies Cancer: No Psychosocial: Yes Anxiety, PTSD, Suicide Attempts, Bipolar Integumentary: No Blood Disorders: No Adverse Reaction/Blood Tranf: No Family Medical History Does not know biological family- grew up in foster care Physical Exam Vital Signs Vital Signs - First Documented 12/22/18 13:30 Temp 98.5 Pulse 110 Resp 20 B/P (MAP) 93/64 (74) Pulse Ox 98 O2 Delivery Room Air Capillary Refill : Less Than 3 Seconds Height/Weight/BMI Height: 5'8.00" Weight: 206lbs. 6.0oz. 93.920380gi; 34.2 BMI Method:Stated General Appearance: WD/WN, mild distress HEENT: normal ENT inspection, pharynx normal Neck: normal inspection Respiratory: no respiratory distress, no accessory muscle use; No crackles; wheezing (Subtle) Cardiovascular: regular rate, rhythm, no edema, no murmur Gastrointestinal: normal bowel sounds, soft, tenderness (Epigastrium) Extremities: normal inspection, no pedal edema Neurologic/Psychiatric: investigator internal affairs II-XII nml as tested, no motor/sensory deficits, alert, normal mood/affect, oriented x 3 Skin: normal color, warm/dry Progress/Results/Core Measures Results/Orders Lab Results Laboratory Tests Test 12/22/18 14:33 Range/Units Urine Color YELLOW Urine Clarity CLEAR Urine pH 6 5-9 Urine Specific Johnson 1.020 1.016-1.022 Urine Protein NEGATIVE NEGATIVE Urine Glucose (UA) NEGATIVE NEGATIVE Urine Ketones NEGATIVE NEGATIVE Urine Nitrite NEGATIVE NEGATIVE Urine Bilirubin NEGATIVE NEGATIVE Urine Urobilinogen NORMAL NORMAL MG/DL Urine Leukocyte Esterase 1+ H NEGATIVE Urine RBC (Auto) NEGATIVE NEGATIVE Urine RBC NONE /HPF Urine WBC RARE /HPF Urine Squamous Epithelial Cells RARE /HPF Urine Crystals NONE /LPF Urine Bacteria NEGATIVE /HPF Urine Casts NONE /LPF Urine Mucus SMALL H /LPF Urine Culture Indicated NO My Orders Orders - KELLY TRACY MD Ua Culture If Indicated (12/22/18 14:21) Ondansetron Oral Dissolve Tab (Zofran (12/22/18 14:30) Lidocaine 2% Viscous 15 Ml (Xylocaine Vi (12/22/18 14:30) Antacid Suspension (Mylanta Suspension (12/22/18 14:30) Medications Given in ED Vital Signs/I&O 12/22/18 12/22/18 13:30 16:04 Temp 98.5 Pulse 110 78 Resp 20 18 B/P (MAP) 93/64 (74) 111/59 (76) Pulse Ox 98 98 O2 Delivery Room Air Room Air Blood Pressure Mean: 74 Progress Progress Note : Progress Note Patient was treated with Zofran followed by GI cocktail. This resolved her pain. Pepcid was prescribed and dietary recommendations were provided. Departure Impression Primary Impression: Epigastric pain Disposition: HOME, SELF-CARE Condition: Improved Departure-Patient Inst. Decision time for Depature: 15:50 Referrals: MOLLY GONZALES MD (PCP/Family) Primary Care Physician Patient Instructions: Acute Abdomen (Belly Pain), Adult (DC), Gastritis (DC) Add. Discharge Instructions: Your abdominal pain may be from gastritis. Start Prevacid and follow up with your central office supervisor or family practice provider within the next couple of weeks. You may additionally take Tums to help with antiacid therapy. Avoid the following: Eating large meals, eating close to bedtime, caffeine, carbonation, citrus fruits and juices, tobacco products, chocolate, spicy foods , fatty or greasy foods, NSAID medication such as ibuprofen or naproxen, mints, tomato products, or anything else you know irritates your stomach. Reduce your smoking as much as possible and work toward quitting. Return to care if you have worsening symptoms despite treatment. All discharge instructions reviewed with patient and/or family. Voiced understanding. Scripts Lansoprazole (Prevacid) 30 Mg Capsule. 30 MG PO DAILY, #30 CAP Prov: KELLY TRACY MD 12/22/18 Copy Copies To 1: MOLLY GONZALES MD, JOSHUA T MD Dec 22, 2018 15:54
[2018-12-22 16:04] VITALS: BP 111/59
== END 2018-12-22 16:03 | disposition home or self-care (01) ==
LOC: EDUNIT# 13:24 → ER 13:26
DX: O26.892 Other specified pregnancy related conditions, second trimester (principal); R10.13 Epigastric pain; O99.512 Diseases of the respiratory system complicating pregnancy, second trimester; J45.909 Unspecified asthma, uncomplicated; O99.342 Other mental disorders complicating pregnancy, second trimester; F41.9 Anxiety disorder, unspecified; F43.10 Post-traumatic stress disorder, unspecified; F31.9 Bipolar disorder, unspecified; O99.332 Smoking (tobacco) complicating pregnancy, second trimester; F17.210 Nicotine dependence, cigarettes, uncomplicated; Z3A.16 16 weeks gestation of pregnancy; Z87.448 Personal history of other diseases of urinary system; Z91.5 Personal history of self-harm; Z86.19 Personal history of other infectious and parasitic diseases; Z88.0 Allergy status to penicillin; Z88.8 Allergy status to other drugs, medicaments and biological substances
CPT/HCPCS: 81000; 99283

== ENCOUNTER 2018-12-28 19:16 | Emergency (ER) | payer MEDICAID ==
[~2018-12-28] VITALS: Ht 172.7 cm; Wt 99.8 kg
[~2018-12-28 19:16] MED LIST changes: +LANS30CA43 PO
--- NOTE | 2018-12-28 19:48 | ED Cough/URI ---
General Chief Complaint: Cough/Cold/Flu Symptoms Stated Complaint: 161/2 WEEKS PREG, CONGESTED,FEVER,ACHE,COUGHING Nursing Triage Note: PT PRESENTS TO ER WITH COMPLAINT OF COUGH, FEVER, SORE THROAT, AND BODY ACHE FOR FOUR DAYS. PT IS 16 WEEKS Sepsis Screen: No Definite Risk Source: patient Exam Limitations: no limitations History of Present Illness Date Seen by Provider: Dec 28, 2018 Time Seen by Provider: 19:40 Initial Comments 28-year-old female who presents to the emergency room with complaints of cough fever sore throat and body aches for the past 4 days. She reports that she is 16 weeks . She denies seeing her primary care provider for this complaint. She continues to smoke cigarettes throughout her and reports that she's been coughing so much that she has been unable to smoke as much. Timing/Duration: other (4 days) Severity/Quality: dry cough Prior Episodes/Possible Cause: no prior episodes Associated Symptoms: cough, fever/chills, sore throat Allergies and Home Medications Allergies Coded Allergies: penicillin G (Verified Allergy, Severe, Throat Swelling, 03/26/18) divalproex sodium (Verified Allergy, Unknown, Vomiting, 03/26/18) Home Medications Cefdinir 300 Mg Capsule, 300 MG PO BID Prescribed by: BUTCH LOTT on 12/28/181950 Lansoprazole 30 Mg Capsule.dr, 30 MG PO DAILY Prescribed by: KELLY AVILA on 12/22/18 1552 Ondansetron 8 Mg Tab.rapdis, 8 MG PO Q6H PRN for NAUSEA/VOMITING-1ST LINE Prescribed by: CHRIS OZUNA on 11/28/18 1407 Patient Home Medication List Home Medication List Reviewed: Yes Review of Systems Review of Systems Constitutional: see HPI, chills, fever EENTM: see HPI, throat pain Respiratory: see HPI, cough All Other Systems Reviewed Negative Unless Noted: Yes Past Jxwnpfc-Bldrqq-Bglgdi Hx Past Med/Social Hx: Reviewed Nursing Past Med/Soc Hx Patient Social History Alcohol Use: Denies Use Recreational Drug Use: Yes (previous hx) Drug of Choice: THC, methamphetamine, PCP Smoking Status: Current Everyday Smoker Type Used: Cigarettes 2nd Hand Smoke Exposure: Yes Recent Foreign Travel: No Contact w/Someone Who Travel: No Recent Infectious Disease Expo: No Recent Hopitalizations: No Immunizations Up To Date Tetanus Booster (TDap): Unknown PED Vaccines UTD: No Seasonal Allergies Seasonal Allergies: No Past Medical History Surgeries: Yes Gallbladder Respiratory: Yes Asthma Currently Using CPAP: No Currently Using BIPAP: No Cardiac: Yes Heart Murmur Neurological: No Female Reproductive Disorders: Denies Sexually Transmitted Disease: Yes (HPV) HIV/AIDS: No Genitourinary: Yes Benign Prostatic Hyperpl Gastrointestinal: No Musculoskeletal: No Endocrine: No HEENT: No Loss of Vision: Denies Hearing Impairment: Denies Cancer: No Psychosocial: Yes Anxiety, PTSD, Suicide Attempts, Bipolar Integumentary: No Blood Disorders: No Adverse Reaction/Blood Tranf: No Family Medical History Reviewed Nursing Family Hx Does not know biological family- grew up in foster care Physical Exam Vital Signs - First Documented 12/28/18 19:25 Temp 99.1 Pulse 87 Resp 20 B/P (MAP) 116/72 (87) Pulse Ox 98 O2 Delivery Room Air Capillary Refill : Less Than 3 Seconds Height: 5'8.00" Weight: 220lbs. 6.0oz. 99.419816oc; 34.2 BMI Method:Stated General Appearance: WD/WN, no apparent distress HEENT: PERRL/EOMI, normal ENT inspection, TMs normal, pharynx normal Respiratory: chest non-tender, lungs clear, normal breath sounds, no respiratory distress, no accessory muscle use, respiratory distress Cardiovascular: normal peripheral pulses, regular rate, rhythm, no edema, no gallop, no JVD, no murmur Gastrointestinal: normal bowel sounds, non tender, soft, no organomegaly, no pulsatile mass Neurologic/Psychiatric: alert, normal mood/affect, oriented x 3 Skin: normal color, warm/dry Progress/Results/Core Measures Suspected Sepsis Recent Fever Within 48 Hours: No Infection Criteria Present: None New/Unexplained Altered Menta: No Sepsis Screen: No Definite Risk SIRS Temperature:99.1 Pulse: 87 Respiratory Rate: 20 Blood Pressure 116 /72 Mean: 87 Results/Orders My Orders Orders - BERNOT,BUTCH Rx-Albuterol Inhaler (Rx-Proair) (12/28/18 19:50) Cefdinir Capsule (Omnicef Capsule) (12/28/18 20:00) Vital Signs/I&O 12/28/18 12/28/18 19:25 20:11 Temp 99.1 99.1 Pulse 87 87 Resp 20 20 B/P (MAP) 116/72 (87) 116/72 (87) Pulse Ox 98 98 O2 Delivery Room Air Capillary Refill : Less Than 3 Seconds Blood Pressure Mean: 87 Departure Impression Primary Impression: Bronchitis Disposition: 01 HOME, SELF-CARE Condition: Stable/Unchanged Departure-Patient Inst. Decision time for Depature: 19:46 Referrals: MOLLY GONZALES MD (PCP/Family) Primary Care Physician Patient Instructions: Acute Bronchitis, Adult (DC) Add. Discharge Instructions: Take medications as directed. Try to stop smoking. Follow-up with your primary care provider within 1 week for recheck. Return back to the emergency room for worsening symptoms or concerns as needed. All discharge instructions reviewed with patient and/or family. Voiced understanding. Scripts Cefdinir (Cefdinir) 300 Mg Capsule 300 MG PO BID for 7 Days, #14 CAP Prov: BUTCH LOTT 12/28/18 BUTCH LOTT Dec 28, 2018 19:48
[2018-12-28] MEDS ORDERED: RX-ALBUTEROL INHALER (PROAIR) 8 GM IH STA (19:50)
[2018-12-28] MEDS ORDERED: CEFD300C3 PO (19:51)
[2018-12-28] MEDS ORDERED: CEFDINIR 300 MG (OMNICEF) CAP PO ONE (20:00)
[2018-12-28 20:11] VITALS: BP 116/72
== END 2018-12-28 20:11 | disposition home or self-care (01) ==
LOC: EDUNIT# 19:16 → ER 19:18
DX: O99.512 Diseases of the respiratory system complicating pregnancy, second trimester (principal); J40 Bronchitis, not specified as acute or chronic; J45.909 Unspecified asthma, uncomplicated; O99.342 Other mental disorders complicating pregnancy, second trimester; F41.9 Anxiety disorder, unspecified; F43.10 Post-traumatic stress disorder, unspecified; F31.9 Bipolar disorder, unspecified; O99.332 Smoking (tobacco) complicating pregnancy, second trimester; F17.210 Nicotine dependence, cigarettes, uncomplicated; Z91.5 Personal history of self-harm; Z88.0 Allergy status to penicillin; Z87.448 Personal history of other diseases of urinary system; Z98.890 Other specified postprocedural states; Z88.8 Allergy status to other drugs, medicaments and biological substances; Z3A.16 16 weeks gestation of pregnancy
CPT/HCPCS: 99283

== ENCOUNTER → 2019-01-07 | Outpatient (CLI) | payer MEDICAID ==
[~2019-01-07] MED LIST changes: +CEFD300C3 PO
--- NOTE | 2019-01-07 16:18 | Diagnostic Imaging Report ---
INDICATION: survey. TECHNIQUE: Multiple real-time grayscale images were obtained over the gravid uterus. COMPARISON: None. FINDINGS: There is a single live fetus in a cephalic presentation. heart rate was recorded at 163 beats per minute. The placenta is fundal. The amniotic fluid volume is normal. survey demonstrates kidneys, bladder and stomach. brain is unremarkable. There is a four-chamber heart. There is a three-vessel cord with normal insertion. The spine is unremarkable. Biometrical measurements are as follows: Biparietal 4.03 cm, age 18 weeks 2 days. Head circumference 15.14 cm, age 18 weeks 2 days. Abdominal circumference 12.68 cm, age 18 weeks 2 days. Femur length 2.64 cm, age 18 weeks 1 days. Sonographic estimate age: 18 weeks 2 days. Sonographic estimated date of delivery: 06/08/2019. Estimated Weight: 227 gm (+/- 33 gm). LMP percentile: 55%. heart rate: 163 beats per minute. number: 1 of 1. IMPRESSION: Single live IUP 18 weeks 2 days gestational age. The estimated date of confinement sonographically is 06/08/2019. Dictated by: Dictated on workstation # [id number]
== END ==
LOC: RAD 14:11
PROVIDERS: ATTEND Family Medicine
DX: Z36.89 Encounter for other specified antenatal screening (principal); Z3A.18 18 weeks gestation of pregnancy
CPT/HCPCS: 76805

== ENCOUNTER 2019-02-17 18:10 | Emergency (ER) | payer MEDICAID ==
[~2019-02-17] VITALS: Ht 172.7 cm; Wt 104.3 kg
--- OUTSIDE RECORDS SUMMARY | 2019-02-17 18:17 | XMS REPORT ---
Author Author JAD IVAN [facility] Address [address] [place] [address] Care Team Providers Care Television Presenter Name Role Phone JADJEBIVAN Unavailable PROBLEMS Type Condition ICD9-CM Code KYT49-VO Code Onset Dates Condition Status SNOMED Code Problem Allergic rhinitis, unspecified seasonality, unspecified trigger J30.9 Active 60896780 Problem Mood disorder F39 Active 35374771 Problem Obesity complicating in second trimester O99.212 Active 921068002686 Problem Nausea and vomiting during O21.9 Active 34770297 Problem Paranoid schizophrenia F20.0 Active 86774078 Problem History of suicide attempt Z91.5 Active 265632951 Problem History of substance use Z87.898 Active 084162811 Problem Other rhinitis J31.0 Active 36829607 ALLERGIES No Information ENCOUNTERS Encounter Location Date Diagnosis [place] [id number] [place] [phone] Dec, Nausea and vomiting during O21.9 [place] [id number] [place] [address] [phone]- [phone] Nov, Second trimester Z34.92 ; 14 weeks gestation of Z3A.14 ; Encounter for immunization Z23 ; Other rhinitis J31.0 and Nausea and vomiting during O21.9 [facility] [place] [id number] [place] [address] [phone]- [phone] Nov, [place] [address] [address] Nov, care, subsequent in first trimester Z34.81 and 9 weeks gestation of Z3A.09 [place] [id number] [place] [address] 17559- [phone] Nov, [facility] [place] [address] [address] Nov, care, subsequent in first trimester Z34.81 [facility] [place] [address] [place] [address] [phone]- [phone] Oct, [facility] [place] [id number] [place] [address] [phone]- 1448 Oct, care, subsequent in first trimester Z34.81 and 9 weeks gestation of Z3A.09 [facility] [place] [address] [place] [address] 06248- 3231 Oct, [facility] [place] [id number] [place] [address] 46626- 8863 Jul, Allergic rhinitis, unspecified seasonality, unspecified trigger J30.9 ; Dental caries K02.9 and Mood disorder F39 [facility] [address] [place] [address] [phone] May, Dental examination Z01.20 [facility] [place] [address] [place] [address] [phone]- [phone] Sep, [facility] [place] [id number] [place] [address] [phone]- [phone] Aug, [facility] [place] [address] [address] Aug, [facility] [place] [id number] [place] [address] [phone]- 2290 Aug, [facility] [place] [address] [place] [address] 19873- 5517 Aug, [facility] [place] [id number] [place] [address] 97830- 0525 Aug, [facility] [place] [address] [place] [address] 79109- 9877 Aug, [facility] [place] [id number] [place] [address] 74132- 0913 Aug, [facility] [place] [address] [address] Aug, [facility] [place] [address] [address] Jul, [facility] [place] [address] [address] Sep, [facility] [place] [id number] [place] [address] [phone] [phone] Aug, [facility] [place] [address] [place] [address] [phone]- [phone] Aug, [facility] [place] [id number] [place] [address] [phone]- [phone] Aug, [facility] [place] [id number] [place] [address] 58753- 4243 Aug, [facility] [place] [address] [address] Aug, [facility] [place] [address] [place] [address] 11812- 6581 Aug, [facility] [place] [address] [address] Jul, [facility] [place] [address] [address] Jul, [facility] [place] [address] [address] Jun, [facility] [place] [address] [address] Mar, [facility] [place] [address] [address] Aug, IMMUNIZATIONS No Known Immunizations SOCIAL HISTORY Never Assessed REASON FOR VISIT [facility] Intake PLAN OF CARE VITAL SIGNS MEDICATIONS Unknown [...] Surgical History gallbladder removed 09/2017 Hospitalization History Suicide attempt/APAP overdose 11/2017
[2019-02-17] MEDS ORDERED: BENZ100C18 (18:18)
[2019-02-17] MEDS ORDERED: CEFPROZIL 250 MG (18:18)
[2019-02-17] MEDS ORDERED: RT-ALBUINH (18:18)
--- OUTSIDE RECORDS SUMMARY | 2019-02-17 18:18 | XMS REPORT | Continuity of Care Document ---
Author Organization Unknown Address Unknown Allergies Active Description Code Type Severity Reaction Onset Reported/Identified Relationship to Patient Clinical Status Yes Depakote - Oral Medication MED N/A N/A 12/28/2014 Yes Penicillins - CLASS Class MED N /A N/A 12/28/2014 Yes No Known Allergies No Known Allergies Drug Allergy Unknown N/A 2015 Yes divalproex sodium divalproex sodium Drug Allergy Mild VOMITING 06/11/2017 Yes Penicillins Penicillins Drug Allergy Unknown THROAT SWELLING 06/11/2017 Yes latex latex Drug Allergy Unknown HIVES 10/17/2017 Medications Medication Packaging Start Date Stop Date Route Dosage Sig TraZODone HCl 150 MG Oral Tablet 05/12/2015 06/25/2015 ORAL 150MG TAKE 1 TABLET AT BEDTIME. ROPINIRole HCl 0.25 MG Oral Tablet 05/12/2015 06/25/2015 ORAL 0.25MG Take two tabs HS BusPIRone HCl 10 MG Oral Tablet 05/12/2015 06/25/2015 ORAL 10MG TAKE 2 TABLETS 3 TIMES DAILY. Haloperidol 5 MG Oral Tablet 06/25/2015 ORAL 5MG TAKE 1/2 TABLET BY MOUTH TWICE DAILY. TraZODone HCl 150 MG Oral Tablet 06/24/2015 [...] 0.5MG Take one tablet TID PRN for anxiety.[id number] 5 mg BID dose BuPROPion HCl ER (XL) 150 MG Oral [...] ORAL 5MG TAKE 1 TABLET TWICE DAILY. [place] Carbonate 300 MG Oral Capsule 01/10/2016 03/11/2016 ORAL 300MG TAKE 1 CAPSULE TWICE DAILY. TraZODone HCl 150 MG Oral Tablet 03/30/2016 06/01/2016 ORAL 150MG TAKE 1/2 TABLET AT BEDTIME. [place] Carbonate 300 MG Oral Capsule 03/30/2016 05/30/2016 [...] weeks then increase to 150 mg dose TraZODone HCl 150 MG Oral Tablet 05/31/2016 08/01/2016 ORAL 150MG TAKE 1/2 TABLET AT BEDTIME. [place] Carbonate 300 MG Oral Capsule 05/31/2016 07/01/2016 [...] ORAL 150MG TAKE 1/2 TABLET AT BEDTIME. [place] Carbonate 300 MG Oral Capsule UD 07/31/2016 10/30/2016 ORAL 300MG TAKE 1 CAPSULE TWICE DAILY. ROPINIRole HCl 0.25 MG Oral Tablet UD 07/31/2016 10/30/2016 ORAL 0.25MG Take two tabs [...] TAKE 1 CAPSULE DAILY IN THE MORNING. Latuda 60 MG Oral Tablet UD 201607/03/2017 ORAL 60MG TAKE 1 TABLET DAILY AT DINNER. Latuda 60 MG Oral Tablet UD 201611/26/2017 ORAL 60MG TAKE 1 TABLET DAILY AT DINNER. OXcarbazepine 300 MG Oral Tablet UD 02/27/2018 03/30/2018 ORAL 300MG TAKE 1 TABLET TWICE DAILY. 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 Dianne Riggs 09/30/2015 F F41.9 Anxiety disorder, unspecified 09/30/2015 [...] syndrome 10/20/2015 F F41.9 Anxiety disorder, unspecified Delatrore, Marilyn 10/20/2015 F F43.10 Post- traumatic stress disorder, unspecified Delatorre, Marilyn 10/20/2015 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 Delatorre, Marilyn 10/20/2015 F F31.5 Bipolar disorder, current episode depressed, severe, with psychotic features 12/15/2015 F F31.5 Bipolar disorder, current episode depressed, severe, with psychotic features Jose David, Lidia M 12/15/2015 F F41.9 Anxiety disorder, unspecified West, Lidia M 12/15/2015 F F43.10 Post- traumatic stress disorder, unspecified West, Lidia M 12/15/2015 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 West, Lidia M 12/15/2015 F F41.9 Anxiety disorder, unspecified [...] disorder, unspecified 01/28/2016 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 02/07/2016 F F31.5 Bipolar disorder, current episode depressed, severe, with psychotic features 02/07/2016 F F41.9 Anxiety disorder, unspecified 02/07/2016 F F43.10 Post- traumatic stress disorder, unspecified 02/08/2016 F F31.5 Bipolar disorder, current episode depressed, severe, with psychotic features 02/08/2016 F F31.5 Bipolar disorder, current episode depressed, severe, with psychotic features David, Rosie A 02/08/2016 F F41.9 Anxiety disorder, unspecified Sakina-Sahni, Rosie A 02/08/2016 F F43.10 Post- traumatic stress disorder, unspecified Sakina-Sahni, Rosie A 02/08/2016 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 David, Rosie A 02/08/2016 F I10 Essential ( primary) hypertension David, Rosie A 02/09/2016 F F31.5 Bipolar disorder, [...] unspecified 02/10/2016 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 02/23/2016 F F31.5 Bipolar disorder, current episode [...] depressed, severe, with psychotic features Rosie Hernandez 03/06/2016 F F41.9 Anxiety disorder, unspecified David, Rosie A 03/06/2016 F F43.10 Post- traumatic stress disorder, unspecified David, Rosie A 03/06/2016 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 David, Rosie A 03/06/2016 F I10 Essential ( primary) hypertension Rosie Hernandez 03/14/2016 F F31.5 Bipolar disorder, current episode depressed, severe, with psychotic features Ivette Garcia L 03/14/2016 F F41.9 Anxiety disorder, unspecified Radha, Ivette L 03/14/2016 F F43.10 Post- traumatic stress disorder, unspecified Garcia, Ivette L 03/14/2016 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 Ivette Garcia L 03/14/2016 F F41.9 Anxiety disorder, unspecified 03/14/2016 F F43.10 Post- traumatic stress disorder, unspecified 03/14/2016 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5 Bipolar disorder, current episode depressed, severe, with psychotic features Dianne Riggs A 03/30/2016 F F41.9 Anxiety disorder, unspecified Oneil, Dianne A 03/30/2016 F F43.10 Post- traumatic stress disorder, unspecified Oneil, Dianne A 03/30/2016 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 Oneil, Dianne A 03/30/2016 F F41.9 Anxiety disorder, unspecified [...] M 05/31/2016 F F41.9 Anxiety disorder, unspecified West, Lidia M 05/31/2016 F F43.10 Post- traumatic stress disorder, unspecified Lidia Main M 05/31/2016 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 Lidia Main M 05/31/2016 F F41.9 Anxiety disorder, unspecified 05/31/2016 F F43.10 Post- traumatic stress disorder, unspecified 05/31/2016 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 06/03/2016 F F31.5 Bipolar disorder, current episode depressed, severe, with psychotic features 07/12/2016 F F31.5 Bipolar disorder, current episode depressed, severe, with psychotic features Garcia, Ivette Ny 07/12/2016 F F41.9 Anxiety disorder, unspecified Garcia, Ivette Ny 07/12/2016 F F43.10 Post- traumatic stress disorder, unspecified Garcia, Ivette L 07/12/2016 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 Radha, Ivette Ny 07/12/2016 F F41.9 Anxiety disorder, unspecified Psy, [...] Main 07/31/2016 F F41.9 Anxiety disorder, unspecified WestLidia M 07/31/2016 F F43.10 Post- traumatic stress disorder, unspecified WestLidia M 07/31/2016 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5 Bipolar disorder, current episode depressed, severe, with psychotic features Psy, Batch 11/07/2016 F F31.5 Bipolar disorder, current episode [...] current episode depressed, severe, with psychotic features Magdalena, Kymberly M 12/27/2016 F F41.9 Anxiety disorder, unspecified Magdalena, Kymberly M 12/27/2016 F F43.10 Post- traumatic stress disorder, unspecified Magdalena, Kymberly M 12/27/2016 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 Magdalena, Kymberly 12/27/2016 F F41.9 Anxiety disorder, unspecified Psy, Batch 12/27/2016 F F43.10 Post- traumatic stress disorder, unspecified Psy, Batch 12/27/2016 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 Psy, Batch 01/01/2017 F F31.5 Bipolar disorder, current episode depressed, severe, with psychotic features Psy, Batch 01/03/2017 F F31.5 Bipolar disorder, current episode depressed, severe, with psychotic features Aleshia, Siomararieka 01/03/2017 F F41.9 Anxiety disorder, unspecified Psy, Batch 01/03/2017 F F43.10 Post- traumatic stress disorder, unspecified Psy, Batch 01/03/2017 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 Psy, Batch 01/04/2017 F F41.9 Anxiety disorder, unspecified Aleshia, Shaundrieka 01/04/2017 F F43.10 Post- traumatic stress disorder, unspecified Aleshia, Shaundrieka 01/04/2017 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 Aleshia, Brandona 01/09/2017 F F31.5 Bipolar disorder, current episode depressed, severe, with psychotic features Psy, Batch 05/03/2017 F E03.9 Hypothyroidism , unspecified DhirajrussSahni, Rosie A 05/03/2017 F F31.5 Bipolar disorder, current episode depressed, severe, with psychotic features David, Rosie A 05/03/2017 F F41.9 Anxiety disorder, unspecified Sakina-Sahni, Rosie A 05/03/2017 F F43.10 Post- traumatic stress disorder, unspecified David, Rosie A 05/03/2017 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 DhirajChristel, Rosie A 05/03/2017 F I10 Essential ( primary) hypertension DhirajAdrianaman, Rosie Morejon 05/03/2017 F F31.5 Bipolar disorder, current episode depressed, severe, with psychotic features Jose DavidLidia 05/03/2017 F F41.9 Anxiety disorder, unspecified West, Lidia M 05/03/2017 F F43.10 Post- traumatic stress disorder, unspecified West, Lidia M 05/03/2017 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 05/[facility] F F31.5 Bipolar disorder, current episode depressed, severe, with psychotic features Psy, Batch 05/03/2017 F F41.9 Anxiety disorder, unspecified Psy, Batch 05/03/2017 F F43.10 Post- traumatic stress disorder, unspecified Psy, Batch 05/03/2017 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 Psy, Batch 11/28/2017 F E03.9 Hypothyroidism , unspecified Jason, Bethany 11/28/2017 F F12.10 Cannabis abuse, uncomplicated Jason, Bethany 11/28/2017 F F15.20 Other stimulant dependence, uncomplicated Jason, Bethany 11/28/2017 F F31.5 Bipolar disorder, current episode depressed, severe, with psychotic features Jason, Bethany 11/28/2017 F F41.9 Anxiety disorder, unspecified Jason, Bethany 11/28/2017 F F43.10 Post- traumatic stress disorder, unspecified Bethany Gomez 11/28/2017 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 Bethany Gomez [...] 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 Psy, Batch 11/29/2017 F F31.5 Bipolar disorder, current episode [...] Amy12/24/2017 F F41.9 Anxiety disorder, unspecified Chambers, Amy 12/24/2017 F F43.10 Post- traumatic stress disorder, unspecified Amy Portillo Gay 12/24/2017 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 Amy Portillo 12/24/2017 F F31.5 Bipolar disorder, current episode depressed, severe, with psychotic features Amy Portillo Gay 12/24/2017 F F41.9 Anxiety disorder, unspecified Amy Portillo Gay 12/24/2017 F F43.10 Post- traumatic stress disorder, unspecified Amy Portillo Gay 12/24/2017 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 Amy Portillo Procedures Code Description [place] [address] OFFICE/OUTPATIENT VISIT, Carolina Appiahe Darleen 09/30/2015 44180 OFFICE/OUTPATIENT VISIT, Carolina Appiahe A 09/30/2015 39256 OFFICE/OUTPATIENT VISIT, Carolina Appiahe A 10/20/2015 25196 OFFICE/OUTPATIENT VISIT, Carolina Appiahe A 10/20/2015 15944 OFFICE/OUTPATIENT VISIT, Carolina Appiahe A 12/15/2015 09887 OFFICE/OUTPATIENT VISIT, Carolina Appiahe A 12/15/2015 79793 Anju , Aliza Steele 01/05/2016 09722 Anju , Aliza Steele 01/05/2016 50844 OFFICE/OUTPATIENT VISIT, Carolina Appiahe A 01/10/2016 38531 OFFICE/OUTPATIENT VISIT, Carolina Appiahe A 01/10/2016 27169 Anju , Aliza Steele 01/14/2016 77457 Anju , Aliza Steele 01/14/2016 H0036 Joey Krueger 01/27/2016 H0036 Joey Krueger 01/27/2016 23721 Anju , Aliza Steele 01/28/2016 13112 Anju , Aliza Steele 01/28/2016 54637 OFFICE/OUTPATIENT VISIT, Carolina Appiahe A 02/09/2016 32123 OFFICE/OUTPATIENT VISIT, Rosie Appiah A 02/09/2016 66501 Anju , Aliza Steele 02/10/2016 91082 Anju , Aliza Ivette 02/10/2016 H0036 Evans , Joey 02/24/2016 H0036 Evans , Joey 02/24/2016 H2011 Herl, Reginald W 03/06/2016 H2011 Herl, Reginald W 03/06/2016 70810 Anju , Aliza Ivette 03/14/2016 06813 Anju , Aliza Ivette 03/14/2016 35636 Anju , Aliza Ivette 03/28/2016 95979 Anju , Aliza Ivette 03/28/2016 05131 OFFICE/OUTPATIENT VISIT, GABI Hernandez, Rosie A 03/30/2016 24011 OFFICE/OUTPATIENT VISIT, GABI Hernandez Rosie A 03/30/2016 52745 Anju , Aliza Ivette 04/07/2016 98892 Anju , Aliza Ivette 04/07/2016 78583 Anju , Aliza Ivette 05/29/2016 88789 Anju , Aliza Ivette 05/29/2016 28346 OFFICE/OUTPATIENT VISIT, GABI Hernandez Rosie A 05/31/2016 84802 OFFICE/OUTPATIENT VISIT, GABI Hernandez, Rosie A 05/31/2016 57033 Anju , Aliza Ayalaelle 07/12/2016 49242 Anju , Aliza Ivette 07/12/2016 42551 OFFICE/OUTPATIENT VISIT, GABI Hernandez Rosie A 07/31/2016 37326 OFFICE/OUTPATIENT VISIT, GABI Hernandez Rosie A 07/31/2016 60188 Anju , Aliza Ivette 11/07/2016 70636 Anju , Aliza Ivette 11/07/2016 03539 Aleshia , Shaundrieka 12/27/2016 56764 Aleshia , Shaundrieka 12/27/2016 42500 Aleshia , Shaundrieka 01/03/2017 42043 Aleshia , Shaundrieka 01/03/2017 63519 OFFICE/OUTPATIENT VISIT, Carolina Appiahe A 05/03/2017 40195 OFFICE/OUTPATIENT VISIT, Carolina Appiahe A 05/03/2017 T1023 Gatekeeping Screen - Initial Bethany Gomez 11/28/2017 H2011 Crisis Intervention - Basic Ella Esaclera 11/28/2017 H2011 Crisis Intervention - Advanced Lucy Pacheco 11/28/2017 H2011 Crisis Intervention - Advanced Lucy Pacheco 11/28/2017 H2011 Crisis Intervention - Intermediate Ella Escalera 11/28/2017 32102 INITIAL HOSPITAL CARE [facility] 12/19/2017 73673 SUBSEQUENT HOSPITAL CARE [facility]nerSienna S 12/20/2017 78860 SUBSEQUENT HOSPITAL CARE Coyner, Sienna S 12/21/2017 62827 SUBSEQUENT HOSPITAL CARE [facility]ner[facility]ienna S 12/22/2017 18740 SUBSEQUENT HOSPITAL CARE [facility] 12/23/2017 68924 HOSPITAL DISCHARGE DAY Sienna Schrader 12/24/2017 Results Test Result Range UR TEST - 01/30/16 21:54 UR TEST POSITIVE NEGATIVE URINALYSIS, ROUTINE - 01/30/16 21:54 UA LEUKOCYTE ESTERASE DIPSTICK NEGATIVE NEGATIVE UA NITRITE DIPSTICK NEGATIVE NEGATIVE UA PROTEIN DIPSTICK NEGATIVE NEGATIVE UA GLUCOSE DIPSTICK NEGATIVE NEGATIVE UA KETONE DIPSTICK NEGATIVE NEGATIVE UA UROBILINOGEN DIPSTICK NORMAL NORMAL UA BILIRUBIN DIPSTICK NEGATIVE NEGATIVE UA BLOOD DIPSTICK NEGATIVE NEGATIVE UA SPECIFIC GRAVITY 1.007 1.015-1.025 UR PH 5.0 5.0-7.0 URINALYSIS, ROUTINE - 02/04/16 15:19 UA LEUKOCYTE ESTERASE DIPSTICK 1+ NEGATIVE UA NITRITE DIPSTICK NEGATIVE NEGATIVE UA PROTEIN DIPSTICK TRACE NEGATIVE UA GLUCOSE DIPSTICK NEGATIVE NEGATIVE UA KETONE DIPSTICK TRACE NEGATIVE UA UROBILINOGEN DIPSTICK NORMAL NORMAL UA BILIRUBIN DIPSTICK NEGATIVE NEGATIVE UA BLOOD DIPSTICK 4+ NEGATIVE UA SPECIFIC GRAVITY 1.010 1.015-1.025 UR PH 7.0 5.0-7.0 UA MICROSCOPIC - 02/04/16 15:19 UA EPITHELIAL CELLS 1+ epi/hpf 0 - 1+ UA MUCUS 2+ NEG TO 1+ UA RBC PACKED FIELD rbc/hpf 0 - 3 UA VOLUME FOR EXAM 12.0 mL (12mL STD) UA WBC 2-5 wbc/hpf 0 - 5 CHEM/HEM PROFILE-BEDSIDE - 02/04/16 15:20 POTASSIUM 3.8 mmol/L 3.5-5.3 METHOD Bedside ANION GAP 19 mmol/L 10-20 METHOD Bedside GLUCOSE 83 mg/dL 70-99 BLOOD UREA NITROGEN 8 mg/dL 7-20 CREATININE 0.7 mg/dL 0.6-1.0 HEMOGLOBIN 13.9 gm/dL 12.0-16.0 HEMATOCRIT 41.0 % 37.0-47.0 SODIUM 139 mmol/L 135-148 CHLORIDE 104 mmol/L 98-110 CARBON DIOXIDE 21 mmol/L 21-32 CALCIUM IONIZED 4.7 mg/dL 4.5-5.3 HCG QUANT INTACT - 02/04/16 15:20 HCG QUANT INTACT 3906 mIU/mL URINALYSIS, ROUTINE - 06/11/17 19:12 UA LEUKOCYTE ESTERASE DIPSTICK NEGATIVE NEGATIVE UA NITRITE DIPSTICK NEGATIVE NEGATIVE UA PROTEIN DIPSTICK NEGATIVE NEGATIVE UA GLUCOSE DIPSTICK NEGATIVE NEGATIVE UA KETONE DIPSTICK NEGATIVE NEGATIVE UA UROBILINOGEN DIPSTICK NORMAL NORMAL UA BILIRUBIN DIPSTICK NEGATIVE NEGATIVE UA BLOOD DIPSTICK NEGATIVE NEGATIVE UA SPECIFIC GRAVITY 1.015 1.015-1.025 UR PH 6.5 5.0-7.0 UR TEST - 06/11/17 19:12 UR TEST NEGATIVE NEGATIVE CHLAMYDIA DNA BY PCR - 06/11/17 19:12 Microbiology TEST, SERUM - 06/11/17 20:28 TEST, SERUM NEGATIVE NEGATIVE RAPID PLASMA REAGIN - 06/11/17 20:28 RAPID PLASMA REAGIN NONREACTIVE NONREACTIVE HIV - 06/11/17 20:28 AB HIV 1 2 NEGATIVE NEGATIVE HIV 1 P24 AG NEGATIVE NEGATIVE WET MOUNT - 06/11/17 20:32 Microbiology GRAM STAIN - CHLAMYDIA DNA BY PCR - 06/11/17 20:32 Microbiology URINALYSIS, ROUTINE - 10/16/17 23:55 UA LEUKOCYTE ESTERASE DIPSTICK NEGATIVE NEGATIVE UA NITRITE DIPSTICK NEGATIVE NEGATIVE UA PROTEIN DIPSTICK NEGATIVE NEGATIVE UA GLUCOSE DIPSTICK NEGATIVE NEGATIVE UA KETONE DIPSTICK NEGATIVE NEGATIVE UA UROBILINOGEN DIPSTICK NORMAL NORMAL UA BILIRUBIN DIPSTICK NEGATIVE NEGATIVE UA BLOOD DIPSTICK NEGATIVE NEGATIVE UA SPECIFIC GRAVITY >=1.030 1.015-1.025 UR PH 5.5 5.0-7.0 UR TEST - 10/16/17 23:55 UR TEST NEGATIVE NEGATIVE Radiology Report from [facility] on 02/04/2016 16:40:00 DIAGNOSTIC IMAGING REPORT [facility] - [address], [place] [address] PHONE #: [phone] FAX #: [phone] ------- Name: JASPAL PYLE Loc: [facility] Radiology No: : 1989 Age: 25 Sex: F Status: REG ER Unit No: [id number] Phys: Rashaun Jones MD Acct: [id number] Reason For Exam: , bleeding Exam Date: 02/04/2016 EXAMS: CPT CODE: [id number] [place] [address] [id number] PREG 1ST TRIMESTER 23349 REASON FOR EXAM: , heavy vaginal bleeding TIME OF EXAM: 02/04/2016 4:11 PM COMPARISON: None TECHNIQUE: High resolution grayscale and color-flow transabdominal and transvaginal pelvic ultrasound was performed. CLINICAL DATES: 5 weeks 5 days, SHARMAINE: from LMP FINDINGS: There is a small intrauterine irregularly -shaped gestational sac measuring approximately 9 x 6 x 10 mm (image 35). No pole or yolk sac is identified. No heart rate is evident. There is a large hemorrhage around the gestational sac. No products of conception are seen within the cervical canal. The right ovary measures 3.0 x 3.5 x 2.8 cm and has a normal appearance. The left ovary was not visualized. No free fluid is visualized within the posterior cul-de-sac. IMPRESSION: 1. Small irregular shaped intrauterine gestational sac with large surrounding hemorrhage. No pole or yolk sac. No heart rate. Findings are compatible with inevitable miscarriage. Exam discussed with Rashaun Loving MD at 4:22 PM. I have personally reviewed these images and corrected the resident physician's interpretation if necessary. PAGE 1 Signed Report (CONTINUED) DIAGNOSTIC IMAGING REPORT [facility] - [address] [address] PHONE #: [phone] FAX #: [phone] ------- Name: ERNESTINAJASPAL HOLLIS Loc: [facility] Radiology No: : 1989 Age: 25 Sex: F Status: REG ER Unit No: [id number] Phys: Rashaun Jones MD Acct: [id number] Reason For Exam: , bleeding Exam Date: 02/04/2016 EXAMS: CPT CODE: [id number] [place] [address] [id number] PREG 1ST TRIMESTER 90847 <Continued> at 1635 RESIDENT: DENNIS CHEW MD Reported and signed by: MANISH SANTOS MD CC: Hal Keith MD Technologist: MIGDALIA SINGH; PROBE: [id number] Transcribed Date/Time: (1635)Supervisor Multifocal Lens: SHEMAR Printed Date /Time: 02/04/2016 (1042) BATCH NO: N/A PAGE 2 Signed Report Radiology Report from [facility] on 02/04/2016 16:40:00 DIAGNOSTIC IMAGING REPORT [facility] - [address] [address] PHONE #: [phone] FAX #: [phone] ------- Name: JASPAL PYLE Loc: [facility] Radiology No: : 1989 Age: 25 Sex: F Status: REG ER Unit No: [id number] Phys: Rashaun Jones MD Acct: [id number] Reason For Exam: , bleeding Exam Date: 02/04/2016 EXAMS: CPT CODE: [id number] [place] [address] [id number] PREG 1ST TRIMESTER 86899 REASON FOR EXAM: , heavy vaginal bleeding TIME OF EXAM: 02/04/2016 4:11 PM COMPARISON: None TECHNIQUE: High resolution grayscale and color-flow transabdominal and transvaginal pelvic ultrasound was performed. CLINICAL DATES: 5 weeks 5 days, SHARMAINE: from LMP FINDINGS: There is a small intrauterine irregularly -shaped gestational sac measuring approximately 9 x 6 x 10 mm (image 35). No pole or yolk sac is identified. No heart rate is evident. There is a large hemorrhage around the gestational sac. No products of conception are seen within the cervical canal. The right ovary measures 3.0 x 3.5 x 2.8 cm and has a normal appearance. The left ovary was not visualized. No free fluid is visualized within the posterior cul-de-sac. IMPRESSION: 1. Small irregular shaped intrauterine gestational sac with large surrounding hemorrhage. No pole or yolk sac. No heart rate. Findings are compatible with inevitable miscarriage. Exam discussed with Rashaun Loving MD at 4:22 PM. I have personally reviewed these images and corrected the resident physician's interpretation if necessary. PAGE 1 Signed Report (CONTINUED) DIAGNOSTIC IMAGING REPORT [facility] - [address] [address] PHONE #: [phone] FAX #: [phone] ------- Name: JASPAL PYLE Loc: [facility] Radiology No: : 1989 Age: 25 Sex: F Status: REG ER Unit No: [id number] Phys: Rashaun Jones MD Acct: [id number] Reason For Exam: , bleeding Exam Date: 02/04/2016 EXAMS: CPT CODE: [id number] [place] [id number] PREG 1ST TRIMESTER 66292 <Continued> at 1635 RESIDENT: DENNIS CHEW MD Reported and signed by: MANISH SANTOS MD CC: Hal Keith MD Technologist: MIGDALIA SINGH; PROBE: [id number] Transcribed Date/Time: (1635)Supervisor Multifocal Lens: SHEMAR Printed Date /Time: 02/04/2016 (0565) BATCH NO: N/A PAGE 2 Signed Report Encounters ACCT No. Visit Date/Time Discharge Status Pt. Type Provider Facility Loc./Unit Complaint [id number] 12/24/2017 00:00:00 12/24/2017 00:00:00 DIS Outpatient [id number] 01/24/2019 16:10:00 01/24/2019 23:59:59 CLS Outpatient ROME RAMIREZ [facility] [id number] 10/16/2017 23:32:00 10/17/2017 00:30:00 [id number]11/2017 18:32:00 06/11/2017 21:45:00 DIS Emergency Tanja DODD, [facility]JONG [id number] 06/08/2016 13:30:00 06/08/2016 13:30:00 CAN Outpatient Sae Reyna DO [facility]PUMA [id number] 02/04/2016 14:29:00 02/04/2016 17:46:00 DIS [id number] 01/30/2016 21:33:00 01/30/2016 22:51:00 [id number] 12/11/2015 15:28:00 12/11/2015 15:59:00 DIS Emergency [id number] 11/30/2015 23:10:00 12/01/2015 00:15:00 DIS Emergency [facility]
[2019-02-17] MEDS ORDERED: DEXAMETHASONE 10 MG/ML (DECADRON) 1 ML VIAL IM ONE (18:30)
[2019-02-17] MEDS ORDERED: ONDANSETRON 4 MG (ZOFRAN) ORAL DISSOLVE TAB PO ONE (18:30)
[2019-02-17] MEDS ORDERED: HYDROcodone/APAP 5 MG/325 MG (LORTAB) TAB PO ONE (18:30)
[2019-02-17] MEDS ORDERED: RT-ALBUTEROL/IPRATROPIUM 3 ML (DUONEB) VIAL INH ONE (18:30)
--- NOTE | 2019-02-17 18:30 | ED Cough/URI ---
General Chief Complaint: Cough/Cold/Flu Symptoms Stated Complaint: 5 MO PREG/ SOB/COUGH Nursing Triage Note: PT AMB TO TRIAGE WITH COMPLAINT OF COUGH, CONGESTION, AND DIFFICULTY BREATHING. STATES SHE SAW ON SUNDAY AND WAS PRESCRIBED ANTIBIOTICS. STATES HAS WORSENED OVER THE LAST WEEK. Sepsis Screen: No Definite Risk Source: patient Exam Limitations: no limitations History of Present Illness Date Seen by Provider: February 17, 2019 Time Seen by Provider: 18:30 Initial Comments To ER with reports of cough congestion and wheezing and difficulty sleeping. She was seen by primary care provider on Sunday of last week, she is still on cefprozil antibiotics. Despite this her cough and wheezing has worsened. She has a history of asthma. She reports maximum temperature up to 99.1. She has an albuterol inhaler. She states that she is 5 months gestation. Denies any abdominal complaints or vaginal bleeding. Timing/Duration: constant Severity/Quality: dry cough Associated Symptoms: cough, shortness of breath, wheezing Allergies and Home Medications Allergies Coded Allergies: penicillin G (Verified Allergy, Severe, Throat Swelling, 03/26/18) divalproex sodium (Verified Allergy, Unknown, Vomiting, 03/26/18) latex (Verified Allergy, Unknown, 02/17/19) promethazine (Verified Allergy, Unknown, 02/17/19) Home Medications Cefdinir 300 Mg Capsule, 300 MG PO BID Prescribed by: BUTCH LOTT on 12/28/181950 Lansoprazole 30 Mg Capsule.dr, 30 MG PO DAILY Prescribed by: KELLY AVILA on 12/22/18 155 Ondansetron 8 Mg Tab.rapdis, 8 MG PO Q6H PRN for NAUSEA/VOMITING-1ST LINE Prescribed by: CHRIS OZUNA on 11/28/18 1407 Patient Home Medication List Home Medication List Reviewed: Yes Review of Systems Review of Systems Constitutional: see HPI; No chills, No fever; malaise EENTM: see HPI Respiratory: see HPI, cough, short of breath, wheezing Cardiovascular: no symptoms reported Genitourinary: no symptoms reported Musculoskeletal: no symptoms reported Skin: no symptoms reported Psychiatric/Neurological: No Symptoms Reported Past Wflcrmv-Fysjwn-Lwkjyy Hx Patient Social History Alcohol Use: Denies Use Recreational Drug Use: Yes (previous hx) Drug of Choice: THC, methamphetamine, PCP Smoking Status: Current Everyday Smoker Type Used: Cigarettes 2nd Hand Smoke Exposure: Yes Recent Foreign Travel: No Contact w/Someone Who Travel: No Recent Infectious Disease Expo: No Recent Hopitalizations: No Immunizations Up To Date Tetanus Booster (TDap): Unknown PED Vaccines UTD: Yes Seasonal Allergies Seasonal Allergies: No Past Medical History Surgeries: Yes Gallbladder Respiratory: Yes Asthma Currently Using CPAP: No Currently Using BIPAP: No Cardiac: Yes Heart Murmur Neurological: No Female Reproductive Disorders: Denies Sexually Transmitted Disease: Yes (HPV) HIV/AIDS: No Genitourinary: Yes Benign Prostatic Hyperpl Gastrointestinal: No Musculoskeletal: No Endocrine: No HEENT: No Loss of Vision: Denies Hearing Impairment: Denies Cancer: No Psychosocial: Yes Anxiety, PTSD, Suicide Attempts, Bipolar Integumentary: No Blood Disorders: No Adverse Reaction/Blood Tranf: No Family Medical History Does not know biological family- grew up in foster care Physical Exam Vital Signs - First Documented 02/17/19 18:12 Temp 98.4 Pulse 84 Resp 20 B/P (MAP) 101/68 (79) Pulse Ox 97 O2 Delivery Room Air Capillary Refill : Less Than 3 Seconds Height: 5'8.00" Weight: 230lbs. 6.0oz. [id number]; 34.2 BMI Method:Stated General Appearance: WD/WN, no apparent distress Eyes: Bilateral Eye Normal Inspection, Bilateral Eye PERRL HEENT: PERRL/EOMI, normal ENT inspection Neck: non-tender, full range of motion Respiratory: no respiratory distress, no accessory muscle use; No accessory muscle use; wheezing Gastrointestinal: normal bowel sounds, non tender, soft Neurologic/Psychiatric: alert, normal mood/affect, oriented x 3 Skin: normal color, warm/dry Progress/Results/Core Measures Suspected Sepsis Recent Fever Within 48 Hours: No Infection Criteria Present: None New/Unexplained Altered Menta: No Sepsis Screen: No Definite Risk SIRS Temperature:98.4 Pulse: 84 Respiratory Rate: 20 Blood Pressure 101 /68 Mean: 79 Results/Orders My Orders Orders - CHRIS OZUNA APRN Albuterol/Ipra Inhalation Soln (Duoneb I (02/17/19 18:30) Svn Small Volume Nebulizer (02/17/19 18:21) Hydrocodone/Apap 5/325 Tablet (Lortab 5 (02/17/19 18:30) Dexamethasone Injection (Decadron Inject (02/17/19 18:30) Ondansetron Oral Dissolve Tab (Zofran (02/17/19 18:30) Albuterol Pre-Mix Nebs (Rt) (Proventil (02/17/19 18:45) Svn Small Volume Nebulizer (02/17/19 18:40) Medications Given in ED Current Medications Medications Dose Ordered Sig/Sandrita Route Start Time Stop Time Status Last Admin Dose Admin Acetaminophen/ Hydrocodone Bitart 1 tab ONCE ONCE PO 02/17/19 18:30 02/17/19 18:31 DC 02/17/19 18:57 1 TAB Albuterol/ Ipratropium 3 ml ONCE ONCE INH 02/17/19 18:30 02/17/19 18:31 DC 02/17/19 18:31 3 ML Dexamethasone Sodium Phosphate 10 mg ONCE ONCE IM 02/17/19 18:30 02/17/19 18:31 DC 02/17/19 18:57 10 MG Ondansetron HCl 4 mg ONCE ONCE PO 02/17/19 18:30 02/17/19 18:31 DC 02/17/19 18:58 4 MG Vital Signs/I&O 02/17/19 02/17/19 18:12 18:31 Temp 98.4 Pulse 84 Resp 20 B/P (MAP) 101/68 (79) Pulse Ox 97 93 O2 Delivery Room Air Room Air Capillary Refill : Less Than 3 Seconds Blood Pressure Mean: 79 Departure Impression Primary Impression: Asthma exacerbation Qualified Codes: J45.901 - Unspecified asthma with (acute) exacerbation Disposition: 01 HOME, SELF-CARE Condition: Stable Departure-Patient Inst. Decision time for Depature: 19:33 Referrals: MOLLY GONZALES MD (PCP/Family) Primary Care Physician Patient Instructions: Asthma in Adults Add. Discharge Instructions: 1. Finish off the antibiotics 2. Call Dr. Gonzales tomorrow to make an appointment to be seen for follow-up 3. Return to ER for any concerns. Use the breathing machine every 4 hours. 4. All discharge instructions reviewed with patient and/or family. Voiced understanding. Scripts Hydrocodone/Acetaminophen ([place] 5-325 Tablet) 1 Each Tablet 1 TAB PO HS PRN for COUGH MDD 10 TABS for 1 Day, #5 TAB Prov: CHRIS OZUNA TIA 02/17/19 Albuterol Sulfate (Albuterol Sulfate) 2.5 Mg/3 Ml Vial.neb 2.5 MG INH Q4H PRN for WHEEZING, #25 EA 1 Refill Prov: CHRIS OZUNA APRN 02/17/19 Copy Copies To 1: MOLLY GONZALES MD, PETER J APRN February 17, 2019 18:30
[2019-02-17] MEDS ORDERED: RT-ALBUTEROL SULF 2.5 MG/3 ML PRE-MIX VIAL INH SCH (18:45)
[2019-02-17] MEDS ORDERED: ALBU2.5V4 INH (19:34)
[2019-02-17] MEDS ORDERED: HYDR-4226 PO (19:35)
[2019-02-17 19:45] VITALS: BP 101/68
== END 2019-02-17 19:45 | disposition home or self-care (01) ==
LOC: EDUNIT# 18:10 → ER 18:11
DX: O99.512 Diseases of the respiratory system complicating pregnancy, second trimester (principal); J45.901 Unspecified asthma with (acute) exacerbation; O99.342 Other mental disorders complicating pregnancy, second trimester; F41.9 Anxiety disorder, unspecified; F43.10 Post-traumatic stress disorder, unspecified; F31.9 Bipolar disorder, unspecified; O99.332 Smoking (tobacco) complicating pregnancy, second trimester; F17.210 Nicotine dependence, cigarettes, uncomplicated; Z88.0 Allergy status to penicillin; Z91.5 Personal history of self-harm; Z86.19 Personal history of other infectious and parasitic diseases; Z87.448 Personal history of other diseases of urinary system; Z91.040 Latex allergy status; Z88.8 Allergy status to other drugs, medicaments and biological substances; Z3A.21 21 weeks gestation of pregnancy
CPT/HCPCS: 94640; 99284

== ENCOUNTER → 2019-03-07 | Outpatient (CLI) | payer MEDICAID ==
[~2019-03-07] MED LIST changes: +ALBU2.5V4 INH; +BENZ100C18; +CEFPROZIL 250 MG; +HYDR-4226 PO; +RT-ALBUINH
--- NOTE | 2019-03-07 11:49 | Diagnostic Imaging Report ---
Indication: Cough. Comparison: 11/05/2018 Findings: Frontal and lateral radiographic views of the chest were obtained and show patchy alveolar opacities involving the lingula of the left upper lobe. Right lung is relatively clear. There is no large effusion or pneumothorax on either side. Cardiac silhouette and pulmonary vasculature are within normal limits. Bony structures show no gross acute abnormalities. Impression: 1. Alveolar opacities of the lingula on the left concerning for acute pneumonia. Dictated by: Dictated on workstation # [id number]
== END ==
LOC: RAD 10:19
PROVIDERS: ATTEND Family Medicine
DX: R91.8 Other nonspecific abnormal finding of lung field (principal); R05 Cough
CPT/HCPCS: 71046